=== PATIENT | male | born 1995 | race Caucasian/White ===

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

== ENCOUNTER 2018-07-23 02:16 | Inpatient (IN) | payer MEDICAID ==
--- NOTE | 2018-07-23 02:27 | EDM.PDOC ---
ED HPI GENERAL MEDICAL PROBLEM - General Chief Complaint: Abdominal Pain Stated Complaint: TYPE 1 DIABETIC- ABDOMINAL PAIN, VOMITING Time Seen by Provider: 07/23/18 02:25 - History of Present Illness INITIAL COMMENTS - FREE TEXT/NARRATIVE: HISTORY AND PHYSICAL: History of present illness: The patient is a 22-year-old male who is a type I diabetic with a history of gastroparesis but no abdominal surgical history and has had visits here in the past for his diabetes back in 2017 and presents this morning with complaints of abdominal pain that started last evening and has been persistent associated with nausea but no vomiting. The patient tells me that he has been living in [facility] recently and has a provider there who gives him hydrocodone chronically for chronic abdominal pain and he takes a pain pill before each meal. He says he has Zofran and Reglan for his gastroparesis and he says he has not had his pain medications for 2 weeks. He has not established care here as he has relocated and he is trying to deal with changing his insurance. He says that he does check his blood sugar and has been compliant with his insulin but he did not check his sugar today and did not know was as elevated as it is tonight. His pain is deep and diffuse through the entire upper abdomen and less in the lower abdomen. He has no flank pain and no urinary complaints. He's had no fever chills chest pain or shortness of breath. Review of systems: As per history of present illness and below otherwise all systems reviewed and negative. Past medical history: As per history of present illness and as reviewed below otherwise noncontributory. Surgical history: As per history of present illness and as reviewed below otherwise noncontributory. Social history: No reported history of drug or alcohol abuse. Family history: As per history of present illness and as reviewed below otherwise noncontributory. Physical exam: General: Well-developed thin man who is nontoxic and vital signs are noted by me. The patient is moaning in the room HEENT: Atraumatic, normocephalic, pupils reactive, negative for conjunctival pallor or scleral icterus, mucous membranes tacky , throat clear, neck supple, nontender, trachea midline. Lungs: Clear to auscultation, breath sounds equal bilaterally, chest nontender. Heart: S1S2, regular rhythm and tachycardic rate of my evaluation but no overt murmurs Abdomen: Soft, nondistended, bowel sounds are very hypoactive and there is diffuse tenderness with voluntary guarding on palpation of the entire upper abdomen and only mild tenderness in the lower abdomen. There is no rebound . Negative for masses or hepatosplenomegaly. Negative for costovertebral tenderness. Pelvis: Deferred Genitourinary: Deferred. Rectal: Deferred. Extremities: Atraumatic, negative for cords or calf pain. Neurovascular unremarkable. Full range of motion without defects or deficits Neuro: Awake, alert, oriented. Cranial nerves II through XII unremarkable. Cerebellum unremarkable. Motor and sensory unremarkable throughout. Exam nonfocal. Diagnostics: Accu-Chek. CBC CMP amylase lipase UA UDS serum ketones CT scan of the abdomen and pelvis, hemoglobin A1c urine culture Postvoid bladder scan Therapeutics: IV fluids Zofran Dilaudid Protonix insulin subcutaneous, Benadryl, insulin drip After the Dilaudid the patient got a little bit itchy so Benadryl was given. He tells nursing his never had that before 0353: On reevaluation the patient is much more comfortable and working on his cell phone. I asked him about the UA results and he says that he has had UTIs in the past and he was diagnosed with lung before he left [facility] and was put on antibiotics, the name of which she cannot recall. He says he is only taken them for 2 days but the significant other at bedside is saying that his been on them for one week. 0422: Case was discussed with Dr. Gonzalez who agrees with ICU admission and would like me to start an insulin drip. He is aware of all my findings and that we will do a postvoid bladder scan. Patient is also aware of the testing results including the CT scan revealing bilateral pyelonephritis and the need for admission. Impression: Bilateral pyelonephritis, DKA History of UTI; history of chronic abdominal pain and gastroparesis Definitive disposition and diagnosis as appropriate pending reevaluation and review of above. abdomen Pain Score (Numeric/FACES): 10 - Related Data Allergies Allergy/AdvReac Type Severity Reaction Status Date / Time No Known Allergies Allergy Verified 07/23/18 02:27 Home Meds: Home Meds Insulin Glargine,Hum.Rec.Anlog [Lantus Solostar] 40 unit SQ BEDTIME #3 pen 11/26 [Rx] Insulin Aspart [NovoLOG] 0 units SUBCUT TIDAC 07/23/18 [History] Past Medical History HEENT History: Reports: Other (See Below) Other HEENT History: ear ache Cardiovascular History: Reports: None Respiratory History: Reports: None Gastrointestinal History: Reports: None Musculoskeletal History: Reports: Fracture Other Musculoskeletal History: Elbow long time ago Neurological History: Reports: None Psychiatric History: Reports: None Endocrine/Metabolic History: Reports: Diabetes, Type I Hematologic History: Reports: None Oncologic (Cancer) History: Reports: None - Infectious Disease History Infectious Disease History: Reports: Influenza - Past Surgical History Endocrine Surgical History: Reports: None Social & Family History - Family History Family Medical History: Noncontributory OBGYN: Reports: Endocrine/Metabolic: Reports: Diabetes, Type I, Diabetes, type II - Caffeine Use Caffeine Use: Reports: Soda ED ROS GENERAL - Review of Systems Review Of Systems: ROS reveals no pertinent complaints other than HPI. ED EXAM, GENERAL - Physical Exam Exam: See Below (See dictation) Course - Vital Signs Last Recorded V/S: Last Vital Signs Temp 35.7 C 07/23/18 02:22 Pulse 107 H 07/23/18 03:20 Resp 16 07/23/18 03:20 BP 137/94 H 07/23/18 03:20 Pulse Ox 100 07/23/18 03:20 - Orders/Labs/Meds Orders: Active Orders 24 hr Category Date Time Status Patient Status [ADT] Stat ADT 07/23/18 04:23 Ordered Bladder Scan [RC] ASDIRECTED Care 07/23/18 04:17 Ordered Blood Glucose Check, Bedside [RC] ONETIME Care 07/23/18 02:25 Active CULTURE URINE [RM] Stat Lab 07/23/18 03:15 Received Insulin Regular, Human [NovoLIN R] 100 unit Med 07/23/18 04:30 Ordered Sodium Chloride 0.9% [Normal Saline] 99 ml IV TITRATE Levofloxacin/Dextrose 5%-Water [Levaquin in D5W 500 MG/ Med 07/23/18 03:53 Active 100 ML] 500 mg Premix Bag 1 bag IV ONETIME Sodium Chloride 0.9% [Normal Saline] 1,000 ml Med 07/23/18 04:15 Active IV ASDIRECTED Sodium Chloride 0.9% [Saline Flush] Med 07/23/18 02:33 Active 10 ml FLUSH ASDIRECTED PRN Sodium Chloride 0.9% [Saline Flush] Med 07/23/18 02:33 Active 2.5 ml FLUSH ASDIRECTED PRN Saline Lock Insert [OM.PC] Stat Oth 07/23/18 02:32 Ordered Medication Orders Levofloxacin/Dextrose 500 mg/ (Premix) 100 mls @ 100 mls/hr IV ONETIME ONE Stop: 07/23/18 04:52 Last Admin: 07/23/18 04:14 Dose: 100 mls/hr Sodium Chloride (Normal Saline) 1,000 mls @ 125 mls/hr IV ASDIRECTED AUGUSTINE Last Admin: 07/23/18 04:14 Dose: 125 mls/hr Insulin Human Regular 100 unit (/ Sodium Chloride) 100 mls @ 5 mls/hr IV TITRATE AUGUSTINE; Protocol Sodium Chloride (Saline Flush) 10 ml FLUSH ASDIRECTED PRN PRN Reason: Keep Vein Open Sodium Chloride (Saline Flush) 2.5 ml FLUSH ASDIRECTED PRN PRN Reason: Keep Vein Open Labs: Laboratory Tests 07/23/18 07/23/18 07/23/18 Range/Units 02:25 02:30 02:30 WBC 6.30 (4.0-11.0) K/uL RBC 4.38 L (4.50-5.90) M/uL Hgb 12.0 L (13.0-17.0) g/dL Hct 36.3 L (38.0-50.0) % MCV 82.9 (80.0-98.0) fL MCH 27.4 (27.0-32.0) pg MCHC 33.1 (31.0-37.0) g/dL RDW Std Deviation 38.8 (28.0-62.0) fl RDW Coeff of Erika 13 (11.0-15.0) % Plt Count 341 (150-400) K/uL MPV 10.40 (7.40-12.00) fL Neut % (Auto) 65.3 (48.0-80.0) % Lymph % (Auto) 29.0 (16.0-40.0) % [place] % (Auto) 3.8 (0.0-15.0) % Eos % (Auto) 1.6 (0.0-7.0) % Baso % (Auto) 0.3 (0.0-1.5) % Neut # (Auto) 4.1 (1.4-5.7) K/uL Lymph # (Auto) 1.8 (0.6-2.4) K/uL [place] # (Auto) 0.2 (0.0-0.8) K/uL Eos # (Auto) 0.1 (0.0-0.7) K/uL Baso # (Auto) 0.0 (0.0-0.1) K/uL Sodium 126 L (136-148) mmol/L Potassium 4.8 (3.5-5.1) mmol/L Chloride 90 L (98-107) mmol/L Carbon Dioxide 20.9 L (21.0-32.0) mmol/L BUN 20 H (7.0-18.0) mg/dL Creatinine 0.9 (0.8-1.3) mg/dL Est Cr Clr Drug Dosing 94.44 mL/min Estimated GFR (MDRD) > 60.0 ml/min Glucose 630 H* (74-106) mg/dL POC Glucose > 500 H (60-110) mg/dL Hemoglobin A1c (4.5-6.2) % Calcium 9.5 (8.5-10.1) mg/dL Total Bilirubin 0.4 (0.2-1.0) mg/dL AST 8 L (15-37) IU/L ALT 9 L (14-63) IU/L Alkaline Phosphatase 103 (46-116) U/L Total Protein 8.9 H (6.4-8.2) g/dL Albumin 3.0 L (3.4-5.0) g/dL Globulin 5.9 H (2.6-4.0) g/dL Albumin/Globulin Ratio 0.5 L (0.9-1.6) Amylase 31 (25-115) U/L Lipase 71 L (73-393) U/L Urine Color Urine Appearance Urine pH (5.0-8.0) Ur Specific [place] (1.001-1.035) Urine Protein (NEGATIVE) mg/dL Urine Glucose (UA) (NEGATIVE) mg/dL Urine Ketones (NEGATIVE) mg/dL Urine Occult Blood (NEGATIVE) Urine Nitrite (NEGATIVE) Urine Bilirubin (NEGATIVE) Urine Urobilinogen (<2.0) EU/dL Ur Leukocyte Esterase (NEGATIVE) Urine RBC (0-2/HPF) Urine WBC (0-5/HPF) Ur Epithelial Cells (NONE-FEW) Amorphous Sediment (NEGATIVE) Urine Bacteria (NEGATIVE) Urine Mucus (NONE-MOD) Urine Opiates Screen (NEGATIVE) Ur Oxycodone Screen (NEGATIVE) Urine Methadone Screen (NEGATIVE) Ur Barbiturates Screen (NEGATIVE) Ur Phencyclidine Scrn (NEGATIVE) Ur Amphetamine Screen (NEGATIVE) U Methamphetamines Scrn (NEGATIVE) U Benzodiazepines Scrn (NEGATIVE) U Cocaine Metab Screen (NEGATIVE) U Marijuana (THC) Screen (NEGATIVE) Ketones (NEG) 07/23/18 07/23/18 07/23/18 Range/Units 02:30 02:30 03:15 WBC (4.0-11.0) K/uL RBC (4.50-5.90) M/uL Hgb (13.0-17.0) g/dL Hct (38.0-50.0) % MCV (80.0-98.0) fL MCH (27.0-32.0) pg MCHC (31.0-37.0) g/dL RDW Std Deviation (28.0-62.0) fl RDW Coeff of Erika (11.0-15.0) % Plt Count (150-400) K/uL MPV (7.40-12.00) fL Neut % (Auto) (48.0-80.0) % Lymph % (Auto) (16.0-40.0) % [place] % (Auto) (0.0-15.0) % Eos % (Auto) (0.0-7.0) % Baso % (Auto) (0.0-1.5) % Neut # (Auto) (1.4-5.7) K/uL Lymph # (Auto) (0.6-2.4) K/uL [place] # (Auto) (0.0-0.8) K/uL Eos # (Auto) (0.0-0.7) K/uL Baso # (Auto) (0.0-0.1) K/uL Sodium (136-148) mmol/L Potassium (3.5-5.1) mmol/L Chloride (98-107) mmol/L Carbon Dioxide (21.0-32.0) mmol/L BUN (7.0-18.0) mg/dL Creatinine (0.8-1.3) mg/dL Est Cr Clr Drug Dosing mL/min Estimated GFR (MDRD) ml/min Glucose (74-106) mg/dL POC Glucose (60-110) mg/dL Hemoglobin A1c 12.3 H (4.5-6.2) % Calcium (8.5-10.1) mg/dL Total Bilirubin (0.2-1.0) mg/dL AST (15-37) IU/L ALT (14-63) IU/L Alkaline Phosphatase (46-116) U/L Total Protein (6.4-8.2) g/dL Albumin (3.4-5.0) g/dL Globulin (2.6-4.0) g/dL Albumin/Globulin Ratio (0.9-1.6) Amylase (25-115) U/L Lipase (73-393) U/L Urine Color YELLOW Urine Appearance CLOUDY Urine pH 6.0 (5.0-8.0) Ur Specific [place] 1.010 (1.001-1.035) Urine Protein NEGATIVE (NEGATIVE) mg/dL Urine Glucose (UA) >=1000 (NEGATIVE) mg/dL Urine Ketones 40 H (NEGATIVE) mg/dL Urine Occult Blood TRACE-INTACT H (NEGATIVE) Urine Nitrite NEGATIVE (NEGATIVE) Urine Bilirubin NEGATIVE (NEGATIVE) Urine Urobilinogen 0.2 (<2.0) EU/dL Ur Leukocyte Esterase TRACE H (NEGATIVE) Urine RBC 0-1 (0-2/HPF) Urine WBC 40-50 (0-5/HPF) Ur Epithelial Cells FEW (NONE-FEW) Amorphous Sediment LIGHT (NEGATIVE) Urine Bacteria 2+ H (NEGATIVE) Urine Mucus LIGHT (NONE-MOD) Urine Opiates Screen (NEGATIVE) Ur Oxycodone Screen (NEGATIVE) Urine Methadone Screen (NEGATIVE) Ur Barbiturates Screen (NEGATIVE) Ur Phencyclidine Scrn (NEGATIVE) Ur Amphetamine Screen (NEGATIVE) U Methamphetamines Scrn (NEGATIVE) U Benzodiazepines Scrn (NEGATIVE) U Cocaine Metab Screen (NEGATIVE) U Marijuana (THC) Screen (NEGATIVE) Ketones SMALL H (NEG) 07/23/18 07/23/18 Range/Units 03:15 03:48 WBC (4.0-11.0) K/uL RBC (4.50-5.90) M/uL Hgb (13.0-17.0) g/dL Hct (38.0-50.0) % MCV (80.0-98.0) fL MCH (27.0-32.0) pg MCHC (31.0-37.0) g/dL RDW Std Deviation (28.0-62.0) fl RDW Coeff of Erika (11.0-15.0) % Plt Count (150-400) K/uL MPV (7.40-12.00) fL Neut % (Auto) (48.0-80.0) % Lymph % (Auto) (16.0-40.0) % [place] % (Auto) (0.0-15.0) % Eos % (Auto) (0.0-7.0) % Baso % (Auto) (0.0-1.5) % Neut # (Auto) (1.4-5.7) K/uL Lymph # (Auto) (0.6-2.4) K/uL [place] # (Auto) (0.0-0.8) K/uL Eos # (Auto) (0.0-0.7) K/uL Baso # (Auto) (0.0-0.1) K/uL Sodium (136-148) mmol/L Potassium (3.5-5.1) mmol/L Chloride (98-107) mmol/L Carbon Dioxide (21.0-32.0) mmol/L BUN (7.0-18.0) mg/dL Creatinine (0.8-1.3) mg/dL Est Cr Clr Drug Dosing mL/min Estimated GFR (MDRD) ml/min Glucose (74-106) mg/dL POC Glucose > 500 H (60-110) mg/dL Hemoglobin A1c (4.5-6.2) % Calcium (8.5-10.1) mg/dL Total Bilirubin (0.2-1.0) mg/dL AST (15-37) IU/L ALT (14-63) IU/L Alkaline Phosphatase (46-116) U/L Total Protein (6.4-8.2) g/dL Albumin (3.4-5.0) g/dL Globulin (2.6-4.0) g/dL Albumin/Globulin Ratio (0.9-1.6) Amylase (25-115) U/L Lipase (73-393) U/L Urine Color Urine Appearance Urine pH (5.0-8.0) Ur Specific [place] (1.001-1.035) Urine Protein (NEGATIVE) mg/dL Urine Glucose (UA) (NEGATIVE) mg/dL Urine Ketones (NEGATIVE) mg/dL Urine Occult Blood (NEGATIVE) Urine Nitrite (NEGATIVE) Urine Bilirubin (NEGATIVE) Urine Urobilinogen (<2.0) EU/dL Ur Leukocyte Esterase (NEGATIVE) Urine RBC (0-2/HPF) Urine WBC (0-5/HPF) Ur Epithelial Cells (NONE-FEW) Amorphous Sediment (NEGATIVE) Urine Bacteria (NEGATIVE) Urine Mucus (NONE-MOD) Urine Opiates Screen NEGATIVE (NEGATIVE) Ur Oxycodone Screen NEGATIVE (NEGATIVE) Urine Methadone Screen NEGATIVE (NEGATIVE) Ur Barbiturates Screen NEGATIVE (NEGATIVE) Ur Phencyclidine Scrn NEGATIVE (NEGATIVE) Ur Amphetamine Screen NEGATIVE (NEGATIVE) U Methamphetamines Scrn NEGATIVE (NEGATIVE) U Benzodiazepines Scrn NEGATIVE (NEGATIVE) U Cocaine Metab Screen NEGATIVE (NEGATIVE) U Marijuana (THC) Screen NEGATIVE (NEGATIVE) Ketones (NEG) Meds: Medications Generic Name Dose Route Start Last Admin Trade Name Freq PRN Reason Stop Dose Admin Levofloxacin/Dextrose 500 mg/ 100 mls @ 100 mls/hr 07/23/18 03:53 07/23/18 04 :14 Premix IV 07/23/18 04:52 100 mls/hr ONETIME ONE Administration Sodium Chloride 1,000 mls @ 125 mls/hr 07/23/18 04:15 07/23/18 04:14 Normal Saline IV 125 mls/hr ASDIRECTED AUGUSTINE Administration Insulin Human Regular 100 unit 100 mls @ 5 mls/hr 07/23/18 04:30 / Sodium Chloride IV TITRATE AUGUSTINE Protocol 5 UNIT/HR Sodium Chloride 10 ml 07/23/18 02:33 Saline Flush FLUSH ASDIRECTED PRN Keep Vein Open Sodium Chloride 2.5 ml 07/23/18 02:33 Saline Flush FLUSH ASDIRECTED PRN Keep Vein Open Discontinued Medications Generic Name Dose Route Start Last Admin Trade Name Freq PRN Reason Stop Dose Admin Diphenhydramine HCl 25 mg 07/23/18 02:59 07/23/18 03:03 Benadryl IVPUSH 07/23/18 03:00 25 mg ONETIME ONE Administration Hydromorphone HCl 1 mg 07/23/18 02:32 07/23/18 02:41 Dilaudid IVPUSH 07/23/18 02:33 1 mg ONETIME ONE Administration Sodium Chloride 1,000 mls @ 999 mls/hr 07/23/18 02:32 07/23/18 02:40 Normal Saline IV 07/23/18 03:32 999 mls/hr STAT ONE Administration Sodium Chloride Confirm 07/23/18 02:49 07/23/18 02:57 Normal Saline Administered 07/23/18 02:50 20 mls/hr Dose Administration 20 mls @ as directed .ROUTE .STK-MED ONE Insulin Human Regular 15 unit 07/23/18 02:34 07/23/18 02:43 Novolin R SUBCUT 07/23/18 02:35 15 unit ONETIME ONE Administration Protocol Insulin Human Regular 10 unit 07/23/18 04:04 07/23/18 04:16 Novolin R SUBCUT 07/23/18 04:05 10 unit ONETIME ONE Administration Protocol Iopamidol 100 ml 07/23/18 03:33 07/23/18 03:33 Isovue Multipack-370 (76%) IVPUSH 07/23/18 03:34 100 ml ONETIME STA Administration Ondansetron HCl 4 mg 07/23/18 02:32 07/23/18 02:40 Zofran IVPUSH 07/23/18 02:33 4 mg ONETIME ONE Administration Pantoprazole Sodium 80 mg 07/23/18 02:37 07/23/18 02:50 Protonix Iv IVPUSH 07/23/18 02:38 80 mg .BOLUS ONE Administration Departure - Departure Time of Disposition: 04:26 Disposition: Admitted As Inpatient 68 Condition: Fair Clinical Impression: Pyelonephritis Abdominal pain Qualifiers: Abdominal location: upper abdomen, unspecified Qualified Code(s): R10.10 - Upper abdominal pain, unspecified DKA (diabetic ketoacidoses) Qualifiers: Diabetes mellitus type: type 1 Diabetes mellitus complication detail: without coma Qualified Code(s): E10.10 - Type 1 diabetes mellitus with ketoacidosis without coma - Discharge Information Referrals: PCP,None [Primary Care Provider] - Forms: ED Department Discharge - My Orders Last 24 Hours: My Active Orders 07/23/18 02:25 Blood Glucose Check, Bedside [RC] ONETIME 07/23/18 02:32 Saline Lock Insert [OM.PC] Stat 07/23/18 02:33 Sodium Chloride 0.9% [Saline Flush] 10 ml FLUSH ASDIRECTED PRN Sodium Chloride 0.9% [Saline Flush] 2.5 ml FLUSH ASDIRECTED PRN 07/23/18 03:15 CULTURE URINE [RM] Stat 07/23/18 03:53 Levofloxacin/Dextrose 5%-Water [Levaquin in D5W 500 MG/100 ML] 500 mg Premix Bag 1 bag IV ONETIME 07/23/18 04:15 Sodium Chloride 0.9% [Normal Saline] 1,000 ml IV ASDIRECTED 07/23/18 04:17 Bladder Scan [RC] ASDIRECTED 07/23/18 04:23 Patient Status [ADT] Stat 07/23/18 04:30 Insulin Regular, Human [NovoLIN R] 100 unit Sodium Chloride 0.9% [Normal Saline] 99 ml IV TITRATE - Assessment/Plan Last 24 Hours: My Active Orders 07/23/18 02:25 Blood Glucose Check, Bedside [RC] ONETIME 07/23/18 02:32 Saline Lock Insert [OM.PC] Stat 07/23/18 02:33 Sodium Chloride 0.9% [Saline Flush] 10 ml FLUSH ASDIRECTED PRN Sodium Chloride 0.9% [Saline Flush] 2.5 ml FLUSH ASDIRECTED PRN 07/23/18 03:15 CULTURE URINE [RM] Stat 07/23/18 03:53 Levofloxacin/Dextrose 5%-Water [Levaquin in D5W 500 MG/100 ML] 500 mg Premix Bag 1 bag IV ONETIME 07/23/18 04:15 Sodium Chloride 0.9% [Normal Saline] 1,000 ml IV ASDIRECTED 07/23/18 04:17 Bladder Scan [RC] ASDIRECTED 07/23/18 04:23 Patient Status [ADT] Stat 07/23/18 04:30 Insulin Regular, Human [NovoLIN R] 100 unit Sodium Chloride 0.9% [Normal Saline] 99 ml IV TITRATE
[2018-07-23] MEDS ORDERED: Sodium Chloride 0.9% 1,000 ML IV ONE (02:32)
[2018-07-23] MEDS ORDERED: HYDROmorphone 1 MG/ML Syringe IVPUSH ONE (02:32)
[2018-07-23] MEDS ORDERED: Ondansetron 4 MG/2 ML SDV IVPUSH ONE (02:32)
[2018-07-23] MEDS ORDERED: Sodium Chloride 0.9% 2.5 ML Syringe FLUSH PRN (02:33)
[2018-07-23] MEDS ORDERED: Sodium Chloride 0.9% 10 ML Syringe FLUSH PRN (02:33)
[2018-07-23] MEDS ORDERED: Insulin Regular, Human 100 Units/ML 10 ML Vial SUBCUT ONE ×2 (02:34→04:04)
[2018-07-23] MEDS ORDERED: Pantoprazole 40 MG Vial IVPUSH ONE (02:37)
[2018-07-23] MEDS ORDERED: Sodium Chloride 0.9% 20 ML ONE (02:49)
[2018-07-23 02:58] LABS: CHLORIDE,CL 90 mmol/L (98-107); SODIUM,NA 126 mmol/L (136-148)
[2018-07-23] MEDS ORDERED: diphenhydrAMINE 50 MG/ML SDV IVPUSH ONE (02:59)
[2018-07-23 03:21] LABS: HEMOGLOBIN A1C 12.3 % (4.5-6.2)
[2018-07-23] MEDS ORDERED: Iopamidol 755 MG/ML 500 ML Multipack Bottle IVPUSH STA (03:33)
[2018-07-23] MEDS ORDERED: Levofloxacin/Dextrose 5%-Water 500 MG in Premix Bag 1 BAG IV ONE (03:53)
--- NOTE | 2018-07-23 04:13 | CT ---
INDICATION: Abdominal pain. Diabetes. Hyperglycemia. TECHNIQUE: CT abdomen and pelvis acquired with IV contrast. 100 mL of Isovue 370 administered COMPARISON: None available FINDINGS: Lower chest: Unremarkable. Liver: Unremarkable. Spleen: Unremarkable. Pancreas: Unremarkable. Gallbladder and bile ducts: Possible gallbladder sludge. Slight central intrahepatic biliary prominence without significant extrahepatic biliary dilatation. Adrenal glands: Unremarkable. Kidneys: Mild bilateral hydronephrosis. A heterogeneous right nephrogram demonstrating multiple ill-defined foci of decreased corticomedullary attenuation consistent with multi focal pyelonephritis. An ill-defined area of decreased attenuation in the left renal upper pole suggestive of focal pyelonephritis. GI tract: Unremarkable. No evidence of appendicitis. Vascular structures: Unremarkable. Lymph nodes: Unremarkable. Miscellaneous: No significant free fluid or free air. Pelvic Organs: A distended urinary bladder demonstrating wall thickening. A mildly prominent prostate for age. Bones: Unremarkable for age. IMPRESSION: Multifocal pyelonephritis, right greater than left. Bladder wall thickening compatible with cystitis. Dictated by Rafa Irvin MD @ 07/23/2018 4:11:33 AM Please note that all CT scans at this facility use dose modulation, iterative reconstruction, and/or weight-based dosing when appropriate to reduce radiation dose to as low as reasonably achievable. Dictated by: Rafa Irvin MD @ 07/23/2018 04:11:36 (Electronically Signed)
[2018-07-23] MEDS ORDERED: Sodium Chloride 0.9% 1,000 ML IV SCH (04:15)
[2018-07-23] MEDS ORDERED: Morphine 2 MG/ML Syringe IVPUSH ONE (04:48)
[2018-07-23] MEDS ORDERED: Meropenem 2 GM in Sodium Chloride 0.9% 100 ML IV SCH (06:00)
--- NOTE | 2018-07-23 06:09 | PCM.HP ---
H&P History of Present Illness - General Date of Service: 07/23/18 Admit Problem/Dx: Admission Diagnosis/Problem Admission Diagnosis/Problem Ketoacidosis Source of Information: Patient History Limitations: Reports: No Limitations - History of Present Illness Initial Comments - Free Text/Narative: The patient is a 22-year-old gentleman who presented to the emergency department with a complaint of abdominal pain, nausea and vomiting. The patient is a type I diabetic and self admits to diabetic gastroparesis as well as peripheral neuropathy. The patient is somewhat vague in his answers and admits requested that he should be testing his blood sugars at least 6 times a day but has only checked it once or twice the past couple days. The patient also had had been taking antibiotics for urinary tract infection although this has not been noted on his medication list. Further, the patient says that he has been taking medication for his gastroparesis as well as his depression. The patient says that he moved back here to be with family to help better control his diabetes and his depression. The patient also has been having severe diffuse abdominal pain in his upper abdominal area that does not seem to radiate. Patient has described this as sharp and cramping. The patient also denied nausea and vomiting although this was one of his chief complaints. CT scan of his abdomen also revealed evidence of pyelonephritis as well as bladder wall thickening consistent with urinary tract infection. Patient has denied fever or chills. The patient has had no other specific aggravating or relieving factors. Patient is considered to be a poor historian. Onset of Symptoms: Reports: Gradual Duration of Symptoms: Reports: Hour(s):, Getting Worse Location: Reports: Abdomen Quality: Reports: Ache, Stabbing, Throbbing Severity: Moderate Improves with: Reports: None Worsens with: Reports: Eating Context: Reports: Sick Contact Associated Symptoms: Reports: Loss of Appetite. Denies: Fever/Chills abdomen Pain Score (Numeric/FACES): 9 - Related Data Allergies/Adverse Reactions: Allergies Allergy/AdvReac Type Severity Reaction Status Date / Time No Known Allergies Allergy Verified 07/23/18 02:27 Home Medications: Home Meds Insulin Glargine,Hum.Rec.Anlog [Lantus Solostar] 40 unit SQ BEDTIME #3 pen 11/26 [Rx] Insulin Aspart [NovoLOG] 0 units SUBCUT TIDAC 07/23/18 [History] Past Medical History - Past Health History Medical/Surgical History: Denies Medical/Surgical History HEENT History: Reports: Other (See Below) Other HEENT History: ear ache Cardiovascular History: Reports: None Respiratory History: Reports: None Gastrointestinal History: Reports: Irritable Bowel Syndrome Other Gastrointestinal History: gastropharesis Musculoskeletal History: Reports: Fracture Other Musculoskeletal History: Elbow long time ago Neurological History: Reports: None Psychiatric History: Reports: Depression Endocrine/Metabolic History: Reports: Diabetes, Type I Hematologic History: Reports: None Oncologic (Cancer) History: Reports: None - Infectious Disease History Infectious Disease History: Reports: Influenza - Past Surgical History Endocrine Surgical History: Reports: None Social & Family History - Family History Family Medical History: Noncontributory OBGYN: Reports: Endocrine/Metabolic: Reports: Diabetes, Type I, Diabetes, type II - Tobacco Use Smoking Status *Q: Current Every Day Smoker Years of Tobacco use: 1 Packs/Tins Daily: 0.4 - Caffeine Use Caffeine Use: Reports: Coffee, Energy Drinks - Recreational Drug Use Recreational Drug Use: No - Living Situation & Occupation Living situation: Reports: Single, with Family Occupation: Unemployed H&P Review of Systems - Review of Systems: Review Of Systems: See Below General: Reports: Weakness HEENT: Reports: No Symptoms Pulmonary: Reports: No Symptoms Cardiovascular: Reports: No Symptoms Gastrointestinal: Reports: Abdominal Pain Genitourinary: Reports: No Symptoms Musculoskeletal: Reports: No Symptoms Skin: Reports: No Symptoms Psychiatric: Reports: No Symptoms Neurological: Reports: No Symptoms Hematologic/Lymphatic: Reports: No Symptoms Immunologic: Reports: No Symptoms Exam - Exam Exam: See Below - Vital Signs Vital Signs: Last Vital Signs Temp 35.7 C 07/23/18 02:22 Pulse 108 H 07/23/18 04:40 Resp 18 07/23/18 04:40 BP 118/76 07/23/18 04:40 Pulse Ox 100 07/23/18 04:40 Weight: 50.859 kg - Exam Quality Assessment: No: Supplemental Oxygen General: Alert, Oriented, Cooperative, Moderate Distress, Other (thin) HEENT: Conjunctiva Clear, EACs Clear, EOMI, Nares Patent, Pupils Equal, PERRLA. No: Mucosa Moist & [place] (Dry) Neck: Supple, Trachea Midline Lungs: Clear to Auscultation, Normal Respiratory Effort Cardiovascular: Regular Rhythm, Tachycardia (119 on monitor) GI/Abdominal Exam: Normal Bowel Sounds, Soft, Distended (lower abdominal area), Tender. No: Guarding, Rigid, Rebound Back Exam: Normal Inspection, Full Range of Motion Extremities: Normal Inspection, Normal Range of Motion, No Pedal Edema Skin: Warm, Dry, Intact Neurological: Cranial Nerves Intact, Reflexes Equal Bilateral Neuro Extensive - Mental Status: Alert, Oriented x3 Psychiatric: Alert, Normal Affect, Depressed - Patient Data Lab Results Last 24 hrs: Laboratory Results - last 24 hr 07/23/18 07/23/18 07/23/18 Range/Units 02:25 02:30 02:30 WBC 6.30 (4.0-11.0) K/uL RBC 4.38 L (4.50-5.90) M/uL Hgb 12.0 L (13.0-17.0) g/dL Hct 36.3 L (38.0-50.0) % MCV 82.9 (80.0-98.0) fL MCH 27.4 (27.0-32.0) pg MCHC 33.1 (31.0-37.0) g/dL RDW Std Deviation 38.8 (28.0-62.0) fl RDW Coeff of Erika 13 (11.0-15.0) % Plt Count 341 (150-400) K/uL MPV 10.40 (7.40-12.00) fL Neut % (Auto) 65.3 (48.0-80.0) % Lymph % (Auto) 29.0 (16.0-40.0) % [place] % (Auto) 3.8 (0.0-15.0) % Eos % (Auto) 1.6 (0.0-7.0) % Baso % (Auto) 0.3 (0.0-1.5) % Neut # (Auto) 4.1 (1.4-5.7) K/uL Lymph # (Auto) 1.8 (0.6-2.4) K/uL [place] # (Auto) 0.2 (0.0-0.8) K/uL Eos # (Auto) 0.1 (0.0-0.7) K/uL Baso # (Auto) 0.0 (0.0-0.1) K/uL Sodium 126 L (136-148) mmol/L Potassium 4.8 (3.5-5.1) mmol/L Chloride 90 L (98-107) mmol/L Carbon Dioxide 20.9 L (21.0-32.0) mmol/L BUN 20 H (7.0-18.0) mg/dL Creatinine 0.9 (0.8-1.3) mg/dL Est Cr Clr Drug Dosing 94.44 mL/min Estimated GFR (MDRD) > 60.0 ml/min Glucose 630 H* (74-106) mg/dL POC Glucose > 500 H (60-110) mg/dL Hemoglobin A1c (4.5-6.2) % Calcium 9.5 (8.5-10.1) mg/dL Total Bilirubin 0.4 (0.2-1.0) mg/dL AST 8 L (15-37) IU/L ALT 9 L (14-63) IU/L Alkaline Phosphatase 103 (46-116) U/L Total Protein 8.9 H (6.4-8.2) g/dL Albumin 3.0 L (3.4-5.0) g/dL Globulin 5.9 H (2.6-4.0) g/dL Albumin/Globulin Ratio 0.5 L (0.9-1.6) Amylase 31 (25-115) U/L Lipase 71 L (73-393) U/L Urine Color Urine Appearance Urine pH (5.0-8.0) Ur Specific [place] (1.001-1.035) Urine Protein (NEGATIVE) mg/dL Urine Glucose (UA) (NEGATIVE) mg/dL Urine Ketones (NEGATIVE) mg/dL Urine Occult Blood (NEGATIVE) Urine Nitrite (NEGATIVE) Urine Bilirubin (NEGATIVE) Urine Urobilinogen (<2.0) EU/dL Ur Leukocyte Esterase (NEGATIVE) Urine RBC (0-2/HPF) Urine WBC (0-5/HPF) Ur Epithelial Cells (NONE-FEW) Amorphous Sediment (NEGATIVE) Urine Bacteria (NEGATIVE) Urine Mucus (NONE-MOD) Urine Opiates Screen (NEGATIVE) Ur Oxycodone Screen (NEGATIVE) Urine Methadone Screen (NEGATIVE) Ur Barbiturates Screen (NEGATIVE) Ur Phencyclidine Scrn (NEGATIVE) Ur Amphetamine Screen (NEGATIVE) U Methamphetamines Scrn (NEGATIVE) U Benzodiazepines Scrn (NEGATIVE) U Cocaine Metab Screen (NEGATIVE) U Marijuana (THC) Screen (NEGATIVE) Ketones (NEG) 07/23/18 07/23/18 07/23/18 Range/Units 02:30 02:30 03:15 WBC (4.0-11.0) K/uL RBC (4.50-5.90) M/uL Hgb (13.0-17.0) g/dL Hct (38.0-50.0) % MCV (80.0-98.0) fL MCH (27.0-32.0) pg MCHC (31.0-37.0) g/dL RDW Std Deviation (28.0-62.0) fl RDW Coeff of Erika (11.0-15.0) % Plt Count (150-400) K/uL MPV (7.40-12.00) fL Neut % (Auto) (48.0-80.0) % Lymph % (Auto) (16.0-40.0) % [place] % (Auto) (0.0-15.0) % Eos % (Auto) (0.0-7.0) % Baso % (Auto) (0.0-1.5) % Neut # (Auto) (1.4-5.7) K/uL Lymph # (Auto) (0.6-2.4) K/uL [place] # (Auto) (0.0-0.8) K/uL Eos # (Auto) (0.0-0.7) K/uL Baso # (Auto) (0.0-0.1) K/uL Sodium (136-148) mmol/L Potassium (3.5-5.1) mmol/L Chloride (98-107) mmol/L Carbon Dioxide (21.0-32.0) mmol/L BUN (7.0-18.0) mg/dL Creatinine (0.8-1.3) mg/dL Est Cr Clr Drug Dosing mL/min Estimated GFR (MDRD) ml/min Glucose (74-106) mg/dL POC Glucose (60-110) mg/dL Hemoglobin A1c 12.3 H (4.5-6.2) % Calcium (8.5-10.1) mg/dL Total Bilirubin (0.2-1.0) mg/dL AST (15-37) IU/L ALT (14-63) IU/L Alkaline Phosphatase (46-116) U/L Total Protein (6.4-8.2) g/dL Albumin (3.4-5.0) g/dL Globulin (2.6-4.0) g/dL Albumin/Globulin Ratio (0.9-1.6) Amylase (25-115) U/L Lipase (73-393) U/L Urine Color YELLOW Urine Appearance CLOUDY Urine pH 6.0 (5.0-8.0) Ur Specific [place] 1.010 (1.001-1.035) Urine Protein NEGATIVE (NEGATIVE) mg/dL Urine Glucose (UA) >=1000 (NEGATIVE) mg/dL Urine Ketones 40 H (NEGATIVE) mg/dL Urine Occult Blood TRACE-INTACT H (NEGATIVE) Urine Nitrite NEGATIVE (NEGATIVE) Urine Bilirubin NEGATIVE (NEGATIVE) Urine Urobilinogen 0.2 (<2.0) EU/dL Ur Leukocyte Esterase TRACE H (NEGATIVE) Urine RBC 0-1 (0-2/HPF) Urine WBC 40-50 (0-5/HPF) Ur Epithelial Cells FEW (NONE-FEW) Amorphous Sediment LIGHT (NEGATIVE) Urine Bacteria 2+ H (NEGATIVE) Urine Mucus LIGHT (NONE-MOD) Urine Opiates Screen (NEGATIVE) Ur Oxycodone Screen (NEGATIVE) Urine Methadone Screen (NEGATIVE) Ur Barbiturates Screen (NEGATIVE) Ur Phencyclidine Scrn (NEGATIVE) Ur Amphetamine Screen (NEGATIVE) U Methamphetamines Scrn (NEGATIVE) U Benzodiazepines Scrn (NEGATIVE) U Cocaine Metab Screen (NEGATIVE) U Marijuana (THC) Screen (NEGATIVE) Ketones SMALL H (NEG) 07/23/18 07/23/18 07/23/18 Range/Units 03:15 03:48 05:08 WBC (4.0-11.0) K/uL RBC (4.50-5.90) M/uL Hgb (13.0-17.0) g/dL Hct (38.0-50.0) % MCV (80.0-98.0) fL MCH (27.0-32.0) pg MCHC (31.0-37.0) g/dL RDW Std Deviation (28.0-62.0) fl RDW Coeff of Erika (11.0-15.0) % Plt Count (150-400) K/uL MPV (7.40-12.00) fL Neut % (Auto) (48.0-80.0) % Lymph % (Auto) (16.0-40.0) % [place] % (Auto) (0.0-15.0) % Eos % (Auto) (0.0-7.0) % Baso % (Auto) (0.0-1.5) % Neut # (Auto) (1.4-5.7) K/uL Lymph # (Auto) (0.6-2.4) K/uL [place] # (Auto) (0.0-0.8) K/uL Eos # (Auto) (0.0-0.7) K/uL Baso # (Auto) (0.0-0.1) K/uL Sodium (136-148) mmol/L Potassium (3.5-5.1) mmol/L Chloride (98-107) mmol/L Carbon Dioxide (21.0-32.0) mmol/L BUN (7.0-18.0) mg/dL Creatinine (0.8-1.3) mg/dL Est Cr Clr Drug Dosing mL/min Estimated GFR (MDRD) ml/min Glucose (74-106) mg/dL POC Glucose > 500 H 398 H (60-110) mg/dL Hemoglobin A1c (4.5-6.2) % Calcium (8.5-10.1) mg/dL Total Bilirubin (0.2-1.0) mg/dL AST (15-37) IU/L ALT (14-63) IU/L Alkaline Phosphatase (46-116) U/L Total Protein (6.4-8.2) g/dL Albumin (3.4-5.0) g/dL Globulin (2.6-4.0) g/dL Albumin/Globulin Ratio (0.9-1.6) Amylase (25-115) U/L Lipase (73-393) U/L Urine Color Urine Appearance Urine pH (5.0-8.0) Ur Specific [place] (1.001-1.035) Urine Protein (NEGATIVE) mg/dL Urine Glucose (UA) (NEGATIVE) mg/dL Urine Ketones (NEGATIVE) mg/dL Urine Occult Blood (NEGATIVE) Urine Nitrite (NEGATIVE) Urine Bilirubin (NEGATIVE) Urine Urobilinogen (<2.0) EU/dL Ur Leukocyte Esterase (NEGATIVE) Urine RBC (0-2/HPF) Urine WBC (0-5/HPF) Ur Epithelial Cells (NONE-FEW) Amorphous Sediment (NEGATIVE) Urine Bacteria (NEGATIVE) Urine Mucus (NONE-MOD) Urine Opiates Screen NEGATIVE (NEGATIVE) Ur Oxycodone Screen NEGATIVE (NEGATIVE) Urine Methadone Screen NEGATIVE (NEGATIVE) Ur Barbiturates Screen NEGATIVE (NEGATIVE) Ur Phencyclidine Scrn NEGATIVE (NEGATIVE) Ur Amphetamine Screen NEGATIVE (NEGATIVE) U Methamphetamines Scrn NEGATIVE (NEGATIVE) U Benzodiazepines Scrn NEGATIVE (NEGATIVE) U Cocaine Metab Screen NEGATIVE (NEGATIVE) U Marijuana (THC) Screen NEGATIVE (NEGATIVE) Ketones (NEG) 07/23/18 Range/Units 06:00 WBC (4.0-11.0) K/uL RBC (4.50-5.90) M/uL Hgb (13.0-17.0) g/dL Hct (38.0-50.0) % MCV (80.0-98.0) fL MCH (27.0-32.0) pg MCHC (31.0-37.0) g/dL RDW Std Deviation (28.0-62.0) fl RDW Coeff of Erika (11.0-15.0) % Plt Count (150-400) K/uL MPV (7.40-12.00) fL Neut % (Auto) (48.0-80.0) % Lymph % (Auto) (16.0-40.0) % [place] % (Auto) (0.0-15.0) % Eos % (Auto) (0.0-7.0) % Baso % (Auto) (0.0-1.5) % Neut # (Auto) (1.4-5.7) K/uL Lymph # (Auto) (0.6-2.4) K/uL [place] # (Auto) (0.0-0.8) K/uL Eos # (Auto) (0.0-0.7) K/uL Baso # (Auto) (0.0-0.1) K/uL Sodium (136-148) mmol/L Potassium (3.5-5.1) mmol/L Chloride (98-107) mmol/L Carbon Dioxide (21.0-32.0) mmol/L BUN (7.0-18.0) mg/dL Creatinine (0.8-1.3) mg/dL Est Cr Clr Drug Dosing mL/min Estimated GFR (MDRD) ml/min Glucose (74-106) mg/dL POC Glucose 329 H (60-110) mg/dL Hemoglobin A1c (4.5-6.2) % Calcium (8.5-10.1) mg/dL Total Bilirubin (0.2-1.0) mg/dL AST (15-37) IU/L ALT (14-63) IU/L Alkaline Phosphatase (46-116) U/L Total Protein (6.4-8.2) g/dL Albumin (3.4-5.0) g/dL Globulin (2.6-4.0) g/dL Albumin/Globulin Ratio (0.9-1.6) Amylase (25-115) U/L Lipase (73-393) U/L Urine Color Urine Appearance Urine pH (5.0-8.0) Ur Specific [place] (1.001-1.035) Urine Protein (NEGATIVE) mg/dL Urine Glucose (UA) (NEGATIVE) mg/dL Urine Ketones (NEGATIVE) mg/dL Urine Occult Blood (NEGATIVE) Urine Nitrite (NEGATIVE) Urine Bilirubin (NEGATIVE) Urine Urobilinogen (<2.0) EU/dL Ur Leukocyte Esterase (NEGATIVE) Urine RBC (0-2/HPF) Urine WBC (0-5/HPF) Ur Epithelial Cells (NONE-FEW) Amorphous Sediment (NEGATIVE) Urine Bacteria (NEGATIVE) Urine Mucus (NONE-MOD) Urine Opiates Screen (NEGATIVE) Ur Oxycodone Screen (NEGATIVE) Urine Methadone Screen (NEGATIVE) Ur Barbiturates Screen (NEGATIVE) Ur Phencyclidine Scrn (NEGATIVE) Ur Amphetamine Screen (NEGATIVE) U Methamphetamines Scrn (NEGATIVE) U Benzodiazepines Scrn (NEGATIVE) U Cocaine Metab Screen (NEGATIVE) U Marijuana (THC) Screen (NEGATIVE) Ketones (NEG) Result Diagrams: 07/23/18 02:30 07/23/18 02:30 - Problem List (1) DKA (diabetic ketoacidoses) SNOMED Code(s): 432454803, 521203874 ICD Code: E13.10 - OTH DIABETES MELLITUS WITH KETOACIDOSIS WITHOUT COMA Status: Acute Priority: High Current Visit: Yes Qualifiers: Diabetes mellitus type: type 1 Diabetes mellitus complication detail: without coma Qualified Code(s): E10.10 - Type 1 diabetes mellitus with ketoacidosis without coma (2) Pyelonephritis SNOMED Code(s): 87534286 ICD Code: N12 - TUBULO-INTERSTITIAL NEPHRITIS, NOT SPCF ACUTE OR CHRONIC Status: Acute Priority: High Current Visit: Yes (3) Diabetes type 1, uncontrolled SNOMED Code(s): 09929493, 135101417 ICD Code: E10.65 - TYPE 1 DIABETES MELLITUS WITH HYPERGLYCEMIA Status: Chronic Priority: Medium Current Visit: Yes Qualifiers: Glycemic state: with hyperglycemia Qualified Code(s): E10.65 - Type 1 diabetes mellitus with hyperglycemia (4) Neurogenic dysfunction of the urinary bladder SNOMED Code(s): 615726572 ICD Code: N31.9 - NEUROMUSCULAR DYSFUNCTION OF BLADDER, UNSPECIFIED Status : Suspected Priority: High Current Visit: Yes (5) 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 SNOMED Code(s): 658741803 ICD Code: E10.40 - TYPE 1 DIABETES MELLITUS WITH DIABETIC NEUROPATHY, UNSP Status: Chronic Priority: Medium Current Visit: Yes (6) Diabetic gastroparesis SNOMED Code(s): 463075152 ICD Code: E11.43 - TYPE 2 DIABETES W DIABETIC AUTONOMIC (POLY)NEUROPATHY; K31.84 - GASTROPARESIS Status: Chronic Priority: Medium Current Visit: Yes (7) Depression SNOMED Code(s): 41514016 ICD Code: F32.9 - MAJOR DEPRESSIVE DISORDER, SINGLE EPISODE, UNSPECIFIED Status: Chronic Current Visit: Yes Qualifiers: Depression Type: major depressive disorder Major depression recurrence: unspecified whether recurrent Active/Remission status: in remission of unspecified degree Qualified Code(s): F32.5 - Major depressive disorder, single episode, in full remission (8) Abdominal pain SNOMED Code(s): 83752122 ICD Code: R10.9 - UNSPECIFIED ABDOMINAL PAIN Status: Chronic Priority: High Current Visit: Yes Qualifiers: Abdominal location: upper abdomen, unspecified Qualified Code(s): R10.10 - Upper abdominal pain, unspecified Problem List Initiated/Reviewed/Updated: Yes Orders Last 24hrs: Active Orders 24 hr Category Date Time Status Patient Status [ADT] Stat ADT 07/23/18 04:23 Active Bladder Scan [RC] ASDIRECTED Care 07/23/18 04:17 Active Blood Glucose Check, Bedside [RC] ONETIME Care 07/23/18 02:25 Active CULTURE URINE [RM] Stat Lab 07/23/18 03:15 Received Insulin Regular, Human [NovoLIN R] 100 unit Med 07/23/18 04:30 Active Sodium Chloride 0.9% [Normal Saline] 99 ml IV TITRATE Sodium Chloride 0.9% [Normal Saline] 1,000 ml Med 07/23/18 04:15 Active IV ASDIRECTED Sodium Chloride 0.9% [Saline Flush] Med 07/23/18 02:33 Active 10 ml FLUSH ASDIRECTED PRN Sodium Chloride 0.9% [Saline Flush] Med 07/23/18 02:33 Active 2.5 ml FLUSH ASDIRECTED PRN Saline Lock Insert [OM.PC] Stat Oth 07/23/18 02:32 Ordered Medication Orders Sodium Chloride (Normal Saline) 1,000 mls @ 125 mls/hr IV ASDIRECTED AUGUSTINE Last Admin: 07/23/18 04:14 Dose: 125 mls/hr Insulin Human Regular 100 unit (/ Sodium Chloride) 100 mls @ 5 mls/hr IV TITRATE AUGUSTINE; Protocol Last Admin: 07/23/18 04:47 Dose: 5 unit/hr, 5 mls/hr Sodium Chloride (Saline Flush) 10 ml FLUSH ASDIRECTED PRN PRN Reason: Keep Vein Open Sodium Chloride (Saline Flush) 2.5 ml FLUSH ASDIRECTED PRN PRN Reason: Keep Vein Open Assessment/Plan Comment:: The patient is a complicated 22-year-old gentleman who will be admitted to the intensive care unit for intensive hydration, insulin drip and blood sugar checks every hour. The patient had essentially mild diabetic ketoacidosis that my concern would be that with his pyelonephritis this would be exacerbated very quickly. The patient had been started on Levaquin in the emergency department and I have discontinued this and place the patient on meropenem 2 g IV every 8 hours for his pyelonephritis. The patient does have a history of gastroparesis and I have ordered a postvoid bladder scan as I am concerned that he has neurogenic bladder as well. The patient did have a postvoid residual of greater than 600 mL per hour and had admitted to the nurse that he does not have urges to use the bathroom for urination. I've ordered a Cle[place] catheter. Cultures are currently pending. His antibiotics will be changed as cultures and sensitivity indicates. I placed the patient on Lovenox 30 mg subcutaneous daily for DVT prophylaxis. The patient has been encouraged to ambulate. The patient will be kept nothing by mouth for now and his diet will be advanced when his pain is controlled and nausea is resolved. We'll continue to monitor with eICU.
[2018-07-23] MEDS: Sodium Chloride 0.9% 1,000 ML IV SCH ×4 (06:15→18:54)
[2018-07-23] MEDS ORDERED: Lidocaine 2% Jelly 30 ML Tube ONE (06:52)
[2018-07-23 06:54] LABS: CHLORIDE,CL 100 mmol/L (98-107); SODIUM,NA 132 mmol/L (136-148)
[2018-07-23] MEDS: Morphine 2 MG/ML Syringe IVPUSH PRN ×6 (06:56→23:03)
[2018-07-23] MEDS: Enoxaparin 40 MG/0.4 ML Syringe SUBCUT SCH (07:15)
[2018-07-23] MEDS ORDERED: Meropenem 1 GM SDV ONE (07:27)
[2018-07-23] MEDS: Meropenem 1 GM in Sodium Chloride 0.9% 100 ML IV SCH ×3 (07:31→23:08)
[2018-07-23] MEDS ORDERED: Lidocaine/Prilocaine 2.5-2.5% Crm 5 GM Kit TOP ONE (07:35)
[2018-07-23] MEDS ORDERED: 50% Dextrose in Water 50 ML Syringe ONE (09:00)
[2018-07-23 12:41] LABS: CHLORIDE,CL 104 mmol/L (98-107); SODIUM,NA 138 mmol/L (136-148)
[2018-07-23 14:46] LABS: CHLORIDE,CL 104 mmol/L (98-107); SODIUM,NA 135 mmol/L (136-148)
[2018-07-23] MEDS ORDERED: Insulin Aspart 100 Units/ML 3 ML Pen SUBCUT SCH (17:00)
[2018-07-23] MEDS: Insulin Aspart 100 Units/ML 3 ML Pen SUBCUT SCH (18:03)
[2018-07-23 19:08] LABS: CHLORIDE,CL 103 mmol/L (98-107); SODIUM,NA 134 mmol/L (136-148)
[2018-07-23] MEDS ORDERED: Insulin Glargine,Human Rec. Analog 100 Units/ML 3 ML Pen SUBCUT SCH (21:00)
[2018-07-23 23:29] LABS: CHLORIDE,CL 105 mmol/L (98-107); SODIUM,NA 137 mmol/L (136-148)
[2018-07-23] MEDS ORDERED: diphenhydrAMINE 25 MG Cap PO PRN (23:52)
[2018-07-24] MEDS: Sodium Chloride 0.9% 1,000 ML IV SCH ×2 (00:38→05:38)
[2018-07-24] MEDS: Morphine 2 MG/ML Syringe IVPUSH PRN ×2 (03:20→05:36)
[2018-07-24 06:14] LABS: CHLORIDE,CL 105 mmol/L (98-107); SODIUM,NA 137 mmol/L (136-148)
[2018-07-24] MEDS: Meropenem 1 GM in Sodium Chloride 0.9% 100 ML IV SCH (06:32)
--- NOTE | 2018-07-24 06:58 | PCM.PN ---
- General Info Date of Service: 07/24/18 Admission Dx/Problem (Free Text): Admission Diagnosis/Problem Admission Diagnosis/Problem Ketoacidosis, poorly controlled diabetes mellitus type 1, pyelonephritis, urinary retention Functional Status: Reports: Pain Controlled - Review of Systems General: Reports: No Symptoms HEENT: Reports: No Symptoms Pulmonary: Reports: No Symptoms Cardiovascular: Reports: No Symptoms Gastrointestinal: Reports: Abdominal Pain Genitourinary: Reports: No Symptoms Musculoskeletal: Reports: No Symptoms Skin: Reports: No Symptoms Neurological: Reports: No Symptoms Psychiatric: Reports: No Symptoms - Patient Data Vitals - Most Recent: Last Vital Signs Temp 36.3 C 07/24/18 04:00 Pulse 88 07/23/18 18:00 Resp 12 07/24/18 06:00 BP 109/79 07/24/18 06:00 Pulse Ox 99 07/24/18 06:00 Weight - Most Recent: 50.893 kg I&O - Last 24 Hours: Intake & Output 07/23/18 07/23/18 07/24/18 14:59 22:59 06:59 Intake Total 1101 1447 2432 Output Total 550 1180 1850 Balance 551 470 582 Lab Results Last 24 Hours: Laboratory Results - last 24 hr 07/23/18 07/23/18 07/23/18 Range/Units 07:14 08:08 08:56 WBC (4.0-11.0) K/uL RBC (4.50-5.90) M/uL Hgb (13.0-17.0) g/dL Hct (38.0-50.0) % MCV (80.0-98.0) fL MCH (27.0-32.0) pg MCHC (31.0-37.0) g/dL RDW Std Deviation (28.0-62.0) fl RDW Coeff of Erika (11.0-15.0) % Plt Count (150-400) K/uL MPV (7.40-12.00) fL Neut % (Auto) (48.0-80.0) % Lymph % (Auto) (16.0-40.0) % [facility] % (Auto) (0.0-15.0) % Eos % (Auto) (0.0-7.0) % Baso % (Auto) (0.0-1.5) % Neut # (Auto) (1.4-5.7) K/uL Lymph # (Auto) (0.6-2.4) K/uL [facility] [place] [facility] # (Auto) (0.0-0.8) K/uL Eos # (Auto) (0.0-0.7) K/uL Baso # (Auto) (0.0-0.1) K/uL Nucleated RBC % /100WBC Nucleated RBCs # K/uL Sodium (136-148) mmol/L Potassium (3.5-5.1) mmol/L Chloride (98-107) mmol/L Carbon Dioxide (21.0-32.0) mmol/L BUN (7.0-18.0) mg/dL Creatinine (0.8-1.3) mg/dL Est Cr Clr Drug Dosing mL/min Estimated GFR (MDRD) ml/min Glucose (74-106) mg/dL POC Glucose 185 H 106 62 (60-110) mg/dL Calcium (8.5-10.1) mg/dL Total Bilirubin (0.2-1.0) mg/dL AST (15-37) IU/L ALT (14-63) IU/L Alkaline Phosphatase (46-116) U/L Total Protein (6.4-8.2) g/dL Albumin (3.4-5.0) g/dL Globulin (2.6-4.0) g/dL Albumin/Globulin Ratio (0.9-1.6) 07/23/18 07/23/18 07/23/18 Range/Units 09:21 10:05 10:27 WBC (4.0-11.0) K/uL RBC (4.50-5.90) M/uL Hgb (13.0-17.0) g/dL Hct (38.0-50.0) % MCV (80.0-98.0) fL MCH (27.0-32.0) pg MCHC (31.0-37.0) g/dL RDW Std Deviation (28.0-62.0) fl RDW Coeff of Erika (11.0-15.0) % Plt Count (150-400) K/uL MPV (7.40-12.00) fL Neut % (Auto) (48.0-80.0) % Lymph % (Auto) (16.0-40.0) % [facility] [place] [facility] % (Auto) (0.0-15.0) % Eos % (Auto) (0.0-7.0) % Baso % (Auto) (0.0-1.5) % Neut # (Auto) (1.4-5.7) K/uL Lymph # (Auto) (0.6-2.4) K/uL [facility] # (Auto) (0.0-0.8) K/uL Eos # (Auto) (0.0-0.7) K/uL Baso # (Auto) (0.0-0.1) K/uL Nucleated RBC % /100WBC Nucleated RBCs # K/uL Sodium 138 (136-148) mmol/L Potassium 3.7 (3.5-5.1) mmol/L Chloride 104 (98-107) mmol/L Carbon Dioxide 24.2 (21.0-32.0) mmol/L BUN 17 (7.0-18.0) mg/dL Creatinine 0.6 L (0.8-1.3) mg/dL Est Cr Clr Drug Dosing 141.37 mL/min Estimated GFR (MDRD) > 60.0 ml/min Glucose 134 H (74-106) mg/dL POC Glucose 213 H 138 H (60-110) mg/dL Calcium 8.5 (8.5-10.1) mg/dL Total Bilirubin (0.2-1.0) mg/dL AST (15-37) IU/L ALT (14-63) IU/L Alkaline Phosphatase (46-116) U/L Total Protein (6.4-8.2) g/dL Albumin (3.4-5.0) g/dL Globulin (2.6-4.0) g/dL Albumin/Globulin Ratio (0.9-1.6) 07/23/18 07/23/18 07/23/18 Range/Units 11:00 12:15 13:14 WBC (4.0-11.0) K/uL RBC (4.50-5.90) M/uL Hgb (13.0-17.0) g/dL Hct (38.0-50.0) % MCV (80.0-98.0) fL MCH (27.0-32.0) pg MCHC (31.0-37.0) g/dL RDW Std Deviation (28.0-62.0) fl RDW Coeff of Erika (11.0-15.0) % Plt Count (150-400) K/uL MPV (7.40-12.00) fL Neut % (Auto) (48.0-80.0) % Lymph % (Auto) (16.0-40.0) % [facility] [place] [facility] % (Auto) (0.0-15.0) % Eos % (Auto) (0.0-7.0) % Baso % (Auto) (0.0-1.5) % Neut # (Auto) (1.4-5.7) K/uL Lymph # (Auto) (0.6-2.4) K/uL [facility] # (Auto) (0.0-0.8) K/uL Eos # (Auto) (0.0-0.7) K/uL Baso # (Auto) (0.0-0.1) K/uL Nucleated RBC % /100WBC Nucleated RBCs # K/uL Sodium (136-148) mmol/L Potassium (3.5-5.1) mmol/L Chloride (98-107) mmol/L Carbon Dioxide (21.0-32.0) mmol/L BUN (7.0-18.0) mg/dL Creatinine (0.8-1.3) mg/dL Est Cr Clr Drug Dosing mL/min Estimated GFR (MDRD) ml/min Glucose (74-106) mg/dL POC Glucose 119 H 125 H 157 H (60-110) mg/dL Calcium (8.5-10.1) mg/dL Total Bilirubin (0.2-1.0) mg/dL AST (15-37) IU/L ALT (14-63) IU/L Alkaline Phosphatase (46-116) U/L Total Protein (6.4-8.2) g/dL Albumin (3.4-5.0) g/dL Globulin (2.6-4.0) g/dL Albumin/Globulin Ratio (0.9-1.6) 07/23/18 07/23/18 07/23/18 Range/Units 14:08 14:21 15:05 WBC (4.0-11.0) K/uL RBC (4.50-5.90) M/uL Hgb (13.0-17.0) g/dL Hct (38.0-50.0) % MCV (80.0-98.0) fL MCH (27.0-32.0) pg MCHC (31.0-37.0) g/dL RDW Std Deviation (28.0-62.0) fl RDW Coeff of Erika (11.0-15.0) % Plt Count (150-400) K/uL MPV (7.40-12.00) fL Neut % (Auto) (48.0-80.0) % Lymph % (Auto) (16.0-40.0) % [facility] % (Auto) (0.0-15.0) % Eos % (Auto) (0.0-7.0) % Baso % (Auto) (0.0-1.5) % Neut # (Auto) (1.4-5.7) K/uL Lymph # (Auto) (0.6-2.4) K/uL [facility] # (Auto) (0.0-0.8) K/uL Eos # (Auto) (0.0-0.7) K/uL Baso # (Auto) (0.0-0.1) K/uL Nucleated RBC % /100WBC Nucleated RBCs # K/uL Sodium 135 L (136-148) mmol/L Potassium 3.8 (3.5-5.1) mmol/L Chloride 104 (98-107) mmol/L Carbon Dioxide 25.3 (21.0-32.0) mmol/L BUN 17 (7.0-18.0) mg/dL Creatinine 0.6 L (0.8-1.3) mg/dL Est Cr Clr Drug Dosing 141.37 mL/min Estimated GFR (MDRD) > 60.0 ml/min Glucose 183 H (74-106) mg/dL POC Glucose 181 H 182 H (60-110) mg/dL Calcium 8.3 L (8.5-10.1) mg/dL Total Bilirubin (0.2-1.0) mg/dL AST (15-37) IU/L ALT (14-63) IU/L Alkaline Phosphatase (46-116) U/L Total Protein (6.4-8.2) g/dL Albumin (3.4-5.0) g/dL Globulin (2.6-4.0) g/dL Albumin/Globulin Ratio (0.9-1.6) 07/23/18 07/23/18 07/23/18 Range/Units 17:59 18:33 20:27 WBC (4.0-11.0) K/uL RBC (4.50-5.90) M/uL Hgb (13.0-17.0) g/dL Hct (38.0-50.0) % MCV (80.0-98.0) fL MCH (27.0-32.0) pg MCHC (31.0-37.0) g/dL RDW Std Deviation (28.0-62.0) fl RDW Coeff of Erika (11.0-15.0) % Plt Count (150-400) K/uL MPV (7.40-12.00) fL Neut % (Auto) (48.0-80.0) % Lymph % (Auto) (16.0-40.0) % [facility] [place] [facility] % (Auto) (0.0-15.0) % Eos % (Auto) (0.0-7.0) % Baso % (Auto) (0.0-1.5) % Neut # (Auto) (1.4-5.7) K/uL Lymph # (Auto) (0.6-2.4) K/uL [facility] # (Auto) (0.0-0.8) K/uL Eos # (Auto) (0.0-0.7) K/uL Baso # (Auto) (0.0-0.1) K/uL Nucleated RBC % /100WBC Nucleated RBCs # K/uL Sodium 134 L (136-148) mmol/L Potassium 3.9 (3.5-5.1) mmol/L Chloride 103 (98-107) mmol/L Carbon Dioxide 23.8 (21.0-32.0) mmol/L BUN 15 (7.0-18.0) mg/dL Creatinine 0.7 L (0.8-1.3) mg/dL Est Cr Clr Drug Dosing 121.17 mL/min Estimated GFR (MDRD) > 60.0 ml/min Glucose 280 H (74-106) mg/dL POC Glucose 240 H 226 H (60-110) mg/dL Calcium 8.3 L (8.5-10.1) mg/dL Total Bilirubin (0.2-1.0) mg/dL AST (15-37) IU/L ALT (14-63) IU/L Alkaline Phosphatase (46-116) U/L Total Protein (6.4-8.2) g/dL Albumin (3.4-5.0) g/dL Globulin (2.6-4.0) g/dL Albumin/Globulin Ratio (0.9-1.6) 07/23/18 07/24/18 07/24/18 Range/Units 22:53 05:28 05:28 WBC 5.09 (4.0-11.0) K/uL RBC 3.65 L (4.50-5.90) M/uL Hgb 9.6 L (13.0-17.0) g/dL Hct 30.3 L (38.0-50.0) % MCV 83.0 (80.0-98.0) fL MCH 26.3 L (27.0-32.0) pg MCHC 31.7 (31.0-37.0) g/dL RDW Std Deviation 40.3 (28.0-62.0) fl RDW Coeff of Erika 13 (11.0-15.0) % Plt Count 236 (150-400) K/uL MPV 9.20 (7.40-12.00) fL Neut % (Auto) 63.0 (48.0-80.0) % Lymph % (Auto) 28.9 (16.0-40.0) % [facility] % (Auto) 4.7 (0.0-15.0) % Eos % (Auto) 2.8 (0.0-7.0) % Baso % (Auto) 0.6 (0.0-1.5) % Neut # (Auto) 3.2 (1.4-5.7) K/uL Lymph # (Auto) 1.5 (0.6-2.4) K/uL [facility] # (Auto) 0.2 (0.0-0.8) K/uL Eos # (Auto) 0.1 (0.0-0.7) K/uL Baso # (Auto) 0.0 (0.0-0.1) K/uL Nucleated RBC % 0.0 /100WBC Nucleated RBCs # 0 K/uL Sodium 137 137 (136-148) mmol/L Potassium 3.7 3.3 L (3.5-5.1) mmol/L Chloride 105 105 (98-107) mmol/L Carbon Dioxide 25.1 25.3 (21.0-32.0) mmol/L BUN 11 9 (7.0-18.0) mg/dL Creatinine 0.5 L 0.5 L (0.8-1.3) mg/dL Est Cr Clr Drug Dosing 169.64 169.64 mL/min Estimated GFR (MDRD) > 60.0 > 60.0 ml/min Glucose 198 H 204 H (74-106) mg/dL POC Glucose (60-110) mg/dL Calcium 8.2 L 8.1 L (8.5-10.1) mg/dL Total Bilirubin 0.1 L (0.2-1.0) mg/dL AST 11 L (15-37) IU/L ALT 8 L (14-63) IU/L Alkaline Phosphatase 69 (46-116) U/L Total Protein 6.6 (6.4-8.2) g/dL Albumin 2.1 L (3.4-5.0) g/dL Globulin 4.5 H (2.6-4.0) g/dL Albumin/Globulin Ratio 0.5 L (0.9-1.6) Med Orders - Current: Current Medications Diphenhydramine HCl (Benadryl) 25 mg PO Q6H PRN PRN Reason: Itching Last Admin: 07/23/18 23:57 Dose: 25 mg Enoxaparin Sodium (Lovenox) 40 mg SUBCUT Q24H [facility] Last Admin: 07/23/18 07:15 Dose: 40 mg Meropenem 1 gm/ Sodium (Chloride) 100 mls @ 200 mls/hr IV Q8H [facility] Last Admin: 07/24/18 06:32 Dose: 200 mls/hr Insulin Aspart (Novolog) 0 unit SUBCUT TIDAC [facility]; Protocol Last Admin: 07/23/18 18:03 Dose: 4 units Insulin Glargine (Lantus Solostar) 40 units SUBCUT BEDTIME [facility] Last Admin: 07/23/18 20:30 Dose: 40 unit Sodium Chloride (Saline Flush) 10 ml FLUSH ASDIRECTED PRN PRN Reason: Keep Vein Open Sodium Chloride (Saline Flush) 2.5 ml FLUSH ASDIRECTED PRN PRN Reason: Keep Vein Open Discontinued Medications Dextrose/Water (Dextrose 50% In Water) Confirm Administered Dose 50 ml .ROUTE .STK-MED ONE Stop: 07/23/18 09:01 Last Admin: 07/23/18 09:03 Dose: 50 ml Diphenhydramine HCl (Benadryl) 25 mg IVPUSH ONETIME ONE Stop: 07/23/18 03:00 Last Admin: 07/23/18 03:03 Dose: 25 mg Hydromorphone HCl (Dilaudid) 1 mg IVPUSH ONETIME ONE Stop: 07/23/18 02:33 Last Admin: 07/23/18 02:41 Dose: 1 mg Sodium Chloride (Normal Saline) 1,000 mls @ 999 mls/hr IV STAT ONE Stop: 07/23/18 03:32 Last Admin: 07/23/18 02:40 Dose: 999 mls/hr Sodium Chloride (Normal Saline) Confirm Administered Dose 20 mls @ as directed .ROUTE .STK-MED ONE Stop: 07/23/18 02:50 Last Admin: 07/23/18 02:57 Dose: 20 mls/hr Levofloxacin/Dextrose 500 mg/ (Premix) 100 mls @ 100 mls/hr IV ONETIME ONE Stop: 07/23/18 04:52 Last Admin: 07/23/18 04:14 Dose: 100 mls/hr Sodium Chloride (Normal Saline) 1,000 mls @ 125 mls/hr IV ASDIRECTED [facility] Last Admin: 07/23/18 04:14 Dose: 125 mls/hr Insulin Human Regular 100 unit (/ Sodium Chloride) 100 mls @ 5 mls/hr IV TITRATE [facility]; Protocol Last Titration: 07/23/18 08:11 Dose: 0 unit/hr, 0 mls/hr Sodium Chloride (Normal Saline) 1,000 mls @ 200 mls/hr IV ASDIRECTED [facility] Last Admin: 07/24/18 05:38 Dose: 200 mls/hr Insulin Aspart (Novolog) 5 unit SUBCUT TIDAC [facility] Insulin Human Regular (Novolin R) 15 unit SUBCUT ONETIME ONE; Protocol Stop: 07/23/18 02:35 Last Admin: 07/23/18 02:43 Dose: 15 unit Insulin Human Regular (Novolin R) 10 unit SUBCUT ONETIME ONE; Protocol Stop: 07/23/18 04:05 Last Admin: 07/23/18 04:16 Dose: 10 unit Iopamidol (Isovue Multipack-370 (76%)) 100 ml IVPUSH ONETIME STA Stop: 07/23/18 03:34 Last Admin: 07/23/18 03:33 Dose: 100 ml Lidocaine HCl (Xylocaine 2% Jelly) 30 ml .XX ONETIME ONE Stop: 07/23/18 06:53 Last Admin: 07/23/18 08:04 Dose: Not Given Lidocaine/Prilocaine (Emla Crm) 0 gm TOP ONETIME ONE Stop: 07/23/18 07:36 Last Admin: 07/23/18 07:37 Dose: 1 applic Meropenem (Merrem) Confirm Administered Dose 1 gm .ROUTE .STK-MED ONE Stop: 07/23/18 07:28 Last Admin: 07/23/18 08:04 Dose: Not Given Morphine Sulfate (Morphine) 2 mg IVPUSH ONETIME ONE Stop: 07/23/18 04:49 Last Admin: 07/23/18 04:52 Dose: 2 mg Morphine Sulfate (Morphine) 2 mg IVPUSH Q2H PRN PRN Reason: Pain (severe 7-10) Stop: 07/24/18 06:14 Last Admin: 07/24/18 05:36 Dose: 2 mg Ondansetron HCl (Zofran) 4 mg IVPUSH ONETIME ONE Stop: 07/23/18 02:33 Last Admin: 07/23/18 02:40 Dose: 4 mg Pantoprazole Sodium (Protonix Iv) 80 mg IVPUSH .BOLUS ONE Stop: 07/23/18 02:38 Last Admin: 07/23/18 02:50 Dose: 80 mg - Exam Quality Assessment: No: Supplemental Oxygen General: Alert, Oriented, Cooperative, No Acute Distress HEENT: Pupils Equal, Pupils Reactive, EOMI, Mucous Membr. Moist/[place] Neck: Supple, Trachea Midline Lungs: Clear to Auscultation, Normal Respiratory Effort Cardiovascular: Regular Rate, Regular Rhythm GI/Abdominal Exam: Normal Bowel Sounds, Soft, Non-Tender, No Distention Back Exam: Normal Inspection, Full Range of Motion. No: CVA Tenderness (L), CVA Tenderness (R) Extremities: Normal Inspection, No Pedal Edema Skin: Warm, Dry, Intact Neurological: No New Focal Deficit Psy/Mental Status: Alert, Normal Affect, Normal Mood - Problem List & Annotations (1) Pyelonephritis SNOMED Code(s): 36978608 Code(s): N12 - TUBULO-INTERSTITIAL NEPHRITIS, NOT SPCF ACUTE OR CHRONIC Status: Acute Priority: High Current Visit: Yes (2) DKA (diabetic ketoacidoses) SNOMED Code(s): 053804282, 232143766 Code(s): E13.10 - OTH DIABETES MELLITUS WITH KETOACIDOSIS WITHOUT COMA Status: Resolved Priority: High Current Visit: Yes Qualifiers: Diabetes mellitus type: type 1 Diabetes mellitus complication detail: without coma Qualified Code(s): E10.10 - Type 1 diabetes mellitus with ketoacidosis without coma (3) Diabetes type 1, uncontrolled SNOMED Code(s): 76571836, 730092265 Code(s): E10.65 - TYPE 1 DIABETES MELLITUS WITH HYPERGLYCEMIA Status: Chronic Priority: Medium Current Visit: Yes Qualifiers: Glycemic state: with hyperglycemia Qualified Code(s): E10.65 - Type 1 diabetes mellitus with hyperglycemia (4) Neurogenic dysfunction of the urinary bladder SNOMED Code(s): 260250743 Code(s): N31.9 - NEUROMUSCULAR DYSFUNCTION OF BLADDER, UNSPECIFIED Status: Suspected Priority: High Current Visit: Yes (5) 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 SNOMED Code(s): 229500017 Code(s): E10.40 - TYPE 1 DIABETES MELLITUS WITH DIABETIC NEUROPATHY, UNSP Status: Chronic Priority: Medium Current Visit: Yes (6) Diabetic gastroparesis SNOMED Code(s): 968475236 Code(s): E11.43 - TYPE 2 DIABETES W DIABETIC AUTONOMIC (POLY)NEUROPATHY; K31.84 - GASTROPARESIS Status: Chronic Priority: Medium Current Visit: Yes (7) Depression SNOMED Code(s): 75144801 Code(s): F32.9 - MAJOR DEPRESSIVE DISORDER, SINGLE EPISODE, UNSPECIFIED Status: Chronic Current Visit: Yes Qualifiers: Depression Type: major depressive disorder Major depression recurrence: unspecified whether recurrent Active/Remission status: in remission of unspecified degree Qualified Code(s): F32.5 - Major depressive disorder, single episode, in full remission (8) Abdominal pain SNOMED Code(s): 59719690 Code(s): R10.9 - UNSPECIFIED ABDOMINAL PAIN Status: Chronic Priority: High Current Visit: Yes Qualifiers: Abdominal location: upper abdomen, unspecified Qualified Code(s): R10.10 - Upper abdominal pain, unspecified - Problem List Review Problem List Initiated/Reviewed/Updated: Yes - My Orders Last 24 Hours: My Active Orders 07/23/18 06:12 Oxygen Therapy [RC] PRN Up ad Romy [RC] ASDIRECTED VTE/DVT Education [RC] PER UNIT ROUTINE Vital Signs [RC] Q1H Glucose Management Sub Q Reflex [OM.PC] Click To Edit Resuscitation Status Routine 07/23/18 06:13 Cardiac Monitoring [RC] Q8H Diabetes Education [RC] Click to Edit 07/23/18 06:30 Clements Catheter Insertion [Insert Urinary Catheter] [OM.PC] Q24H 07/23/18 07:30 Meropenem [Merrem] 1 gm Sodium Chloride 0.9% [Normal Saline] 100 ml IV Q8H 07/23/18 08:00 Enoxaparin [Lovenox] 40 mg SUBCUT Q24H 07/23/18 08:33 Urinary Catheter Assessment [RC] Q8H 07/23/18 15:11 Blood Glucose Check, Bedside [RC] WITHMEALSANDBED 07/23/18 17:00 Insulin Aspart [NovoLOG] See Protocol SUBCUT TIDAC 07/23/18 21:00 Insulin Glarg,Human.Rec.Analog [LantUS Solostar] 40 units SUBCUT BEDTIME 07/23/18 Lunch Clear Liquid Diet [DIET] - Plan Plan:: The patient is a complicated 22-year-old gentleman who had been admitted initially secondary to dehydration, borderline diabetic ketoacidosis and was also noted to have pyelonephritis with hydronephrosis. The patient had been retaining urine and post void residuals were around 600 mL. Clements catheter was inserted with some difficulty yesterday. I've ordered repeat ultrasound of the patient's kidneys to help exclude worsening of his bowel nephritis as well as resolution of his hydronephrosis. The patient's diabetic ketoacidosis is resolved. The patient has expressed a strong desire to go home today however, I feel it it's in the patient's best interest to stay at least 1 more day. Because of the patient may have difficulty with neurogenic bladder at this point and will ultimately need referral to urology. Patient will kept on Lovenox for DVT prophylaxis. He's been encouraged to ambulate. Patient's diet has been a advanced to full diabetic diet as tolerated. The patient will also be continued on his Reglan and also his Zofran. The patient says he is out of both these medications and will need to have refills of these upon discharge. Patient should be appropriate for discharge in the morning.
[2018-07-24] MEDS: Insulin Aspart 100 Units/ML 3 ML Pen SUBCUT SCH ×3 (08:44→14:33)
[2018-07-24] MEDS: Enoxaparin 40 MG/0.4 ML Syringe SUBCUT SCH (09:22)
[2018-07-24] MEDS: Metoclopramide 5 MG Tab PO SCH ×2 (09:23→12:01)
[2018-07-24] MEDS ORDERED: Magnesium Sulfate/Water 4 GM in Premix Bag 1 BAG IV ONE (11:51)
[2018-07-24] MEDS ORDERED: Potassium Chloride 20 MEQ Tab.ER PO ONE (11:51)
--- NOTE | 2018-07-24 13:13 | US ---
INDICATION: Pyelonephritis. TECHNIQUE: Sonographic images were obtained through the kidneys and bladder. COMPARISON: CT of the abdomen and pelvis 07/23/2018. FINDINGS: The right kidney measures 12.4 x 5.6 x 6.5 cm. There is mild hydronephrosis/pelvocaliectasis on the right. The left kidney measures 11.3 x 6.1 x 6.1 cm. No obstruction or hydronephrosis on the left. No perinephric fluid collections. Catheter noted in the urinary bladder. IMPRESSION: 1. Mild right-sided hydronephrosis/pelvocaliectasis. 2. No hydronephrosis on the left. Dictated by Helio Brennan MD @ Jul 24 2018 1:06PM Signed by Dr. Helio Brennan @ Jul 24 2018 1:10PM
[2018-07-24 15:41] VITALS: BP 112/84
== END 2018-07-24 15:30 | disposition left against medical advice (07) | DRG 638 ==
LOC: MW.ED 02:16 → MW.ICU 04:23 → MW.OB 18:12 → MW.ICU 19:59
PROVIDERS: ADMIT Internal Medicine; ATTEND Internal Medicine
DX: E10.10 Type 1 diabetes mellitus with ketoacidosis without coma (principal); N12 Tubulo-interstitial nephritis, not specified as acute or chronic; N13.30 Unspecified hydronephrosis; E10.43 Type 1 diabetes mellitus with diabetic autonomic (poly)neuropathy; K31.84 Gastroparesis; E10.42 Type 1 diabetes mellitus with diabetic polyneuropathy; F32.9 Major depressive disorder, single episode, unspecified; N32.89 Other specified disorders of bladder; F17.210 Nicotine dependence, cigarettes, uncomplicated; E10.65 Type 1 diabetes mellitus with hyperglycemia; N31.9 Neuromuscular dysfunction of bladder, unspecified; R33.9 Retention of urine, unspecified
CPT/HCPCS: 36415; 51702; 51798; 74177; 74177-26; 76775; 76775-26; 80048; 80053; 80305-QW; 81001; 82009; 82150; 82962; 83036; 83690; 83735; 84100; 85025; 87086; 87088; 87186; 96361; 96365; 96375; 99285-25; A4217; A9270-GY; C9113; J1170; J1200; J1650; J1815-GY; J1956; J2185; J2270; J2405; J3475; J7030; J7040; J7060; Q9967

== ENCOUNTER 2018-07-26 21:46 | Observation (INO) | payer MEDICAID ==
[2018-07-26] MEDS ORDERED: Sodium Chloride 0.9% 10 ML Syringe FLUSH PRN (21:49)
[2018-07-26] MEDS ORDERED: Sodium Chloride 0.9% 2.5 ML Syringe FLUSH PRN (21:49)
[2018-07-26] MEDS ORDERED: Sodium Chloride 0.9% 1,000 ML IV ONE ×2 (21:50→22:15)
[2018-07-26] MEDS ORDERED: Ondansetron 4 MG/2 ML SDV IVPUSH ONE (21:51)
--- NOTE | 2018-07-26 22:06 | EDM.PDOC ---
ED HPI GENERAL MEDICAL PROBLEM - General Chief Complaint: Abdominal Pain Stated Complaint: STOMACH PAIN Time Seen by Provider: 07/26/18 22:05 Source of Information: Reports: Patient - History of Present Illness INITIAL COMMENTS - FREE TEXT/NARRATIVE: HISTORY AND PHYSICAL: History of present illness: [Patient presents with abdominal pain, history of pyelonephritis, admitted 613 and left AGAINST MEDICAL ADVICE Returns with similar symptoms today] Review of systems: As per history of present illness and below otherwise all systems reviewed and negative. Past medical history: As per history of present illness and as reviewed below otherwise noncontributory. Surgical history: As per history of present illness and as reviewed below otherwise noncontributory. Social history: No reported history of drug or alcohol abuse. Family history: As per history of present illness and as reviewed below otherwise noncontributory. Physical exam: HEENT: Atraumatic, normocephalic, pupils reactive, negative for conjunctival pallor or scleral icterus, mucous membranes moist, throat clear, neck supple, nontender, trachea midline. Lungs: Clear to auscultation, breath sounds equal bilaterally, chest nontender. Heart: S1S2, regular, negative for clicks, rubs, or JVD. Abdomen: Soft, nondistended, nontender. Negative for masses or hepatosplenomegaly. Negative for costovertebral tenderness. Pelvis: Stable nontender. Genitourinary: Deferred. Rectal: Deferred. Extremities: Atraumatic, negative for cords or calf pain. Neurovascular unremarkable. Neuro: Awake, alert, oriented. Cranial nerves II through XII unremarkable. Cerebellum unremarkable. Motor and sensory unremarkable throughout. Exam nonfocal. Diagnostics: [CBC CMP UA ABG blood cultures 2 Chest 1 view ] Therapeutics: [Normal saline Meropenem 1 g IV Insulin 20 units IV, 20 units subcutaneous Morphine 2 mg IV Reglan 10 mg IV ] Impression: [Abdominal pain History of gastroparesis ] Medication noncompliance Electrolyte abnormalities Type 1 diabetes Chronic history of baseline Definitive disposition and diagnosis as appropriate pending reevaluation and review of above. abdomen Pain Score (Numeric/FACES): 10 - Related Data Allergies Allergy/AdvReac Type Severity Reaction Status Date / Time No Known Allergies Allergy Verified 07/26/18 22:13 Home Meds: Home Meds Insulin Glargine,Hum.Rec.Anlog [Lantus Solostar] 40 unit SQ BEDTIME #3 pen 11/26 [Rx] Insulin Aspart [NovoLOG] 5 units SUBCUT TIDAC 07/23/18 [History] Past Medical History - Past Health History Medical/Surgical History: Denies Medical/Surgical History HEENT History: Reports: Other (See Below) Other HEENT History: ear ache Cardiovascular History: Reports: None Respiratory History: Reports: None Gastrointestinal History: Reports: Irritable Bowel Syndrome Other Gastrointestinal History: gastropharesis Musculoskeletal History: Reports: Fracture Other Musculoskeletal History: Elbow long time ago Neurological History: Reports: None Psychiatric History: Reports: Depression Endocrine/Metabolic History: Reports: Diabetes, Type I Hematologic History: Reports: None Oncologic (Cancer) History: Reports: None - Infectious Disease History Infectious Disease History: Reports: Influenza - Past Surgical History Endocrine Surgical History: Reports: None Social & Family History - Family History Family Medical History: Noncontributory OBGYN: Reports: Endocrine/Metabolic: Reports: Diabetes, Type I, Diabetes, type II - Caffeine Use Caffeine Use: Reports: Coffee, Energy Drinks - Living Situation & Occupation Living situation: Reports: Single, with Family Occupation: Unemployed ED ROS GENERAL - Review of Systems Review Of Systems: See Below ED EXAM, GENERAL - Physical Exam Exam: See Below Course - Vital Signs Last Recorded V/S: Last Vital Signs Temp 96.6 F 07/26/18 22:00 Pulse 92 07/26/18 23:18 Resp 17 07/26/18 23:18 BP 128/86 07/26/18 23:18 Pulse Ox 96 07/26/18 23:18 - Orders/Labs/Meds Orders: Active Orders 24 hr Category Date Time Status Blood Glucose Check, Bedside [RC] ONETIME Care 07/26/18 21:49 Active CULTURE BLOOD [BC] Stat Lab 07/26/18 22:45 Received CULTURE BLOOD [BC] Stat Lab 07/26/18 22:45 Received UA RFX YADY AND CULT IF INDIC [URIN] Stat Lab 07/26/18 21:49 Ordered Meropenem [Merrem] 1 gm Med 07/26/18 23:59 Ordered Sodium Chloride 0.9% [Normal Saline] 100 ml IV ONETIME Sodium Chloride 0.9% [Normal Saline] 1,000 ml Med 07/26/18 23:45 Active IV STAT Sodium Chloride 0.9% [Saline Flush] Med 07/26/18 21:49 Active 10 ml FLUSH ASDIRECTED PRN Sodium Chloride 0.9% [Saline Flush] Med 07/26/18 21:49 Active 2.5 ml FLUSH ASDIRECTED PRN Blood Culture x2 Reflex Set [OM.PC] Stat Oth 07/26/18 22:42 Ordered Saline Lock Insert [OM.PC] Stat Oth 07/26/18 21:49 Ordered Medication Orders Sodium Chloride (Normal Saline) 1,000 mls @ 125 mls/hr IV STAT AUGUSTINE Sodium Chloride (Saline Flush) 10 ml FLUSH ASDIRECTED PRN PRN Reason: Keep Vein Open Sodium Chloride (Saline Flush) 2.5 ml FLUSH ASDIRECTED PRN PRN Reason: Keep Vein Open Labs: Laboratory Tests 07/26/18 07/26/18 07/26/18 Range/Units 22:23 22:23 23:07 WBC 6.21 (4.0-11.0) K/uL RBC 4.36 L (4.50-5.90) M/uL Hgb 11.6 L (13.0-17.0) g/dL Hct 37.0 L (38.0-50.0) % MCV 84.9 (80.0-98.0) fL MCH 26.6 L (27.0-32.0) pg MCHC 31.4 (31.0-37.0) g/dL RDW Std Deviation 41.0 (28.0-62.0) fl RDW Coeff of Erika 13 (11.0-15.0) % Plt Count 302 (150-400) K/uL MPV 10.10 (7.40-12.00) fL Neut % (Auto) 71.1 (48.0-80.0) % Lymph % (Auto) 24.2 (16.0-40.0) % Davison % (Auto) 3.1 (0.0-15.0) % Eos % (Auto) 1.1 (0.0-7.0) % Baso % (Auto) 0.5 (0.0-1.5) % Neut # (Auto) 4.4 (1.4-5.7) K/uL Lymph # (Auto) 1.5 (0.6-2.4) K/uL Davison # (Auto) 0.2 (0.0-0.8) K/uL Eos # (Auto) 0.1 (0.0-0.7) K/uL Baso # (Auto) 0.0 (0.0-0.1) K/uL Nucleated RBC % 0.0 /100WBC Nucleated RBCs # 0 K/uL ABG pH 7.610 H (7.35-7.45) ABG pCO2 19 L (35-45) mmHG ABG pO2 125 H (75-100) mmHG ABG HCO3 19 L (22-26) mEq/L ABG Total CO2 17.1 ABG Base Excess -0.7 (-2.0-2.0) Sodium 126 L (136-148) mmol/L Potassium 4.7 (3.5-5.1) mmol/L Chloride 92 L (98-107) mmol/L Carbon Dioxide 26.7 (21.0-32.0) mmol/L BUN 18 (7.0-18.0) mg/dL Creatinine 1.0 (0.8-1.3) mg/dL Est Cr Clr Drug Dosing 86.67 mL/min Estimated GFR (MDRD) > 60.0 ml/min Glucose 659 H* (74-106) mg/dL Calcium 9.1 (8.5-10.1) mg/dL Total Bilirubin 0.3 (0.2-1.0) mg/dL AST 12 L (15-37) IU/L ALT 12 L (14-63) IU/L Alkaline Phosphatase 92 (46-116) U/L Total Protein 8.2 (6.4-8.2) g/dL Albumin 2.9 L (3.4-5.0) g/dL Globulin 5.3 H (2.6-4.0) g/dL Albumin/Globulin Ratio 0.6 L (0.9-1.6) Lipase 225 (73-393) U/L Meds: Medications Generic Name Dose Route Start Last Admin Trade Name Freq PRN Reason Stop Dose Admin Sodium Chloride 1,000 mls @ 125 mls/hr 07/26/18 23:45 Normal Saline IV STAT AUGUSTINE Sodium Chloride 10 ml 07/26/18 21:49 Saline Flush FLUSH ASDIRECTED PRN Keep Vein Open Sodium Chloride 2.5 ml 07/26/18 21:49 Saline Flush FLUSH ASDIRECTED PRN Keep Vein Open Discontinued Medications Generic Name Dose Route Start Last Admin Trade Name Mary PRN Reason Stop Dose Admin Diphenhydramine HCl 50 mg 07/26/18 23:22 07/26/18 23:28 Benadryl IVPUSH 07/26/18 23:23 50 mg ONETIME ONE Administration Sodium Chloride 1,000 mls @ 999 mls/hr 07/26/18 21:50 07/26/18 22:32 Normal Saline IV 07/26/18 22:50 999 mls/hr STAT ONE Administration Sodium Chloride 1,000 mls @ 999 mls/hr 07/26/18 22:15 07/26/18 23:08 Normal Saline IV 07/26/18 23:15 999 mls/hr STAT ONE Administration Insulin Human Regular 10 unit 07/26/18 22:14 07/26/18 22:35 Novolin R IVPUSH 07/26/18 22:15 10 units ONETIME ONE Administration Protocol Insulin Human Regular 10 unit 07/26/18 22:25 07/26/18 22:37 Novolin R SUBCUT 07/26/18 22:26 10 units NOW STA Administration Protocol Insulin Human Regular 10 unit 07/26/18 23:08 07/26/18 23:15 Novolin R IVPUSH 07/26/18 23:09 10 units ONETIME ONE Administration Protocol Metoclopramide HCl 10 mg 07/26/18 22:15 07/26/18 22:33 Reglan IV 07/26/18 22:16 10 mg ONETIME ONE Administration Morphine Sulfate 2 mg 07/26/18 22:45 07/26/18 23:07 Morphine IVPUSH 07/26/18 22:46 2 mg ONETIME ONE Administration Ondansetron HCl 4 mg 07/26/18 21:51 07/26/18 22:34 Zofran IVPUSH 07/26/18 21:52 4 mg ONETIME ONE Administration Departure - Departure Time of Disposition: 00:01 Disposition: Refer to Observation Condition: Fair Clinical Impression: Pyelonephritis, Diabetic gastroparesis Abdominal pain Qualifiers: Abdominal location: upper abdomen, unspecified Qualified Code(s): R10.10 - Upper abdominal pain, unspecified Diabetes type 1, uncontrolled Qualifiers: Glycemic state: with hyperglycemia Qualified Code(s): E10.65 - Type 1 diabetes mellitus with hyperglycemia - Discharge Information Referrals: PCP,Unknown [Primary Care Provider] - Forms: ED Department Discharge - My Orders Last 24 Hours: My Active Orders 07/26/18 22:42 Blood Culture x2 Reflex Set [OM.PC] Stat 07/26/18 22:45 CULTURE BLOOD [BC] Stat CULTURE BLOOD [BC] Stat 07/26/18 23:45 Sodium Chloride 0.9% [Normal Saline] 1,000 ml IV STAT 07/26/18 23:59 Meropenem [Merrem] 1 gm Sodium Chloride 0.9% [Normal Saline] 100 ml IV ONETIME - Assessment/Plan Last 24 Hours: My Active Orders 07/26/18 22:42 Blood Culture x2 Reflex Set [OM.PC] Stat 07/26/18 22:45 CULTURE BLOOD [BC] Stat CULTURE BLOOD [BC] Stat 07/26/18 23:45 Sodium Chloride 0.9% [Normal Saline] 1,000 ml IV STAT 07/26/18 23:59 Meropenem [Merrem] 1 gm Sodium Chloride 0.9% [Normal Saline] 100 ml IV ONETIME
[2018-07-26] MEDS ORDERED: Insulin Regular, Human 100 Units/ML 10 ML Vial IVPUSH ONE ×2 (22:14→23:08)
[2018-07-26] MEDS ORDERED: Metoclopramide 10 MG/2 ML SDV IV ONE (22:15)
[2018-07-26] MEDS ORDERED: Insulin Regular, Human 100 Units/ML 10 ML Vial SUBCUT STA (22:25)
[2018-07-26] MEDS ORDERED: Morphine 2 MG/ML Syringe IVPUSH ONE (22:45)
[2018-07-26 22:59] LABS: CHLORIDE,CL 92 mmol/L (98-107); SODIUM,NA 126 mmol/L (136-148)
--- NOTE | 2018-07-26 23:10 | CR ---
INDICATION: Chest pain, shortness of breath TECHNIQUE: Chest 1 view COMPARISON: None available. FINDINGS: The heart is normal in size. The pulmonary vasculature is within normal limits. The lungs are clear. IMPRESSION: No acute process. Dictated by Stacey Jerry MD @ Jul 26 2018 11:08PM Signed by Dr. Stacey Jerry @ Jul 26 2018 11:10PM
[2018-07-26] MEDS ORDERED: diphenhydrAMINE 50 MG/ML SDV IVPUSH ONE (23:22)
[2018-07-26] MEDS ORDERED: Sodium Chloride 0.9% 1,000 ML IV SCH (23:45)
[2018-07-26] MEDS ORDERED: Meropenem 1 GM in Sodium Chloride 0.9% 100 ML IV ONE (23:59)
[2018-07-27] MEDS ORDERED: Morphine 2 MG/ML Syringe IVPUSH ONE (00:27)
[2018-07-27] MEDS ORDERED: Sodium Chloride 0.9% 1,000 ML IV SCH (01:15)
[2018-07-27] MEDS: Morphine 2 MG/ML Syringe IVPUSH PRN ×8 (02:35→20:24)
[2018-07-27] MEDS: Insulin Aspart 100 Units/ML 3 ML Pen SUBCUT SCH ×3 (06:38→18:09)
[2018-07-27 06:42] LABS: CHLORIDE,CL 106 mmol/L (98-107); SODIUM,NA 137 mmol/L (136-148)
[2018-07-27] MEDS ORDERED: oxyCODONE 5 MG Tab PO PRN (06:43)
[2018-07-27] MEDS ORDERED: Acetaminophen 325 MG Tab PO PRN (06:43)
[2018-07-27] MEDS ORDERED: Temazepam 15 MG Cap PO PRN (06:43)
[2018-07-27] MEDS ORDERED: Morphine 10 MG/ML Syringe IVPUSH PRN (06:43)
[2018-07-27] MEDS: Sodium Chloride 0.9% 1,000 ML IV SCH ×2 (07:15→20:23)
[2018-07-27] MEDS: Enoxaparin 40 MG/0.4 ML Syringe SUBCUT SCH ×2 (07:57→08:02)
--- NOTE | 2018-07-27 09:06 | PCM.HP ---
<Balta Olsen - Last Filed: 07/27/18 11:35> H&P History of Present Illness - General Date of Service: 07/27/18 Admit Problem/Dx: Admission Diagnosis/Problem Admission Diagnosis/Problem Pyelonephritis - History of Present Illness Initial Comments - Free Text/Narative: 22 y/o male with history of type 1 diabetes who presented to the ER complaining of nausea and abdominal pain. Patient states that symptoms started 2 days ago. He states he has been taking his insulin at home. He was recently admitted for pyelonephritis and given antibiotics, however, he left AMA at that time. Today, he denies any chest pain, dyspnea, dysuria, diarrhea or blood in stool. abdomen Pain Score (Numeric/FACES): 10 - Related Data Allergies/Adverse Reactions: Allergies Allergy/AdvReac Type Severity Reaction Status Date / Time No Known Allergies Allergy Verified 07/26/18 22:13 Home Medications: Home Meds Insulin Glargine,Hum.Rec.Anlog [Lantus Solostar] 40 unit SQ BEDTIME #3 pen 11/26 [Rx] Insulin Aspart [NovoLOG] 5 units SUBCUT TIDAC 07/23/18 [History] Past Medical History - Past Health History Medical/Surgical History: Denies Medical/Surgical History HEENT History: Reports: Other (See Below) Other HEENT History: ear ache Cardiovascular History: Reports: None Respiratory History: Reports: None Gastrointestinal History: Reports: Irritable Bowel Syndrome Other Gastrointestinal History: gastropharesis Musculoskeletal History: Reports: Fracture Other Musculoskeletal History: Elbow long time ago Neurological History: Reports: None Psychiatric History: Reports: Depression Endocrine/Metabolic History: Reports: Diabetes, Type I Hematologic History: Reports: None Oncologic (Cancer) History: Reports: None - Infectious Disease History Infectious Disease History: Reports: Influenza - Past Surgical History Endocrine Surgical History: Reports: None Social & Family History - Family History Family Medical History: Noncontributory OBGYN: Reports: Endocrine/Metabolic: Reports: Diabetes, Type I, Diabetes, type II - Tobacco Use Smoking Status *Q: Light Tobacco Smoker Years of Tobacco use: 1 Packs/Tins Daily: 0.2 Used Tobacco, but Quit: No Second Hand Smoke Exposure: Yes - Caffeine Use Caffeine Use: Reports: Coffee, Tea - Recreational Drug Use Recreational Drug Use: No - Living Situation & Occupation Living situation: Reports: Single, with Family Occupation: Unemployed H&P Review of Systems - Review of Systems: Review Of Systems: ROS reveals no pertinent complaints other than HPI. Exam - Exam Exam: See Below - Vital Signs Vital Signs: Last Vital Signs Temp 36.6 C 07/27/18 08:06 Pulse 86 07/27/18 08:06 Resp 18 07/27/18 08:06 BP 102/67 07/27/18 08:06 Pulse Ox 99 07/27/18 08:06 Weight: 52.5 kg - Exam General: Alert, Oriented, Cooperative HEENT: Conjunctiva Clear, Mucosa Moist & [place] Lungs: Clear to Auscultation, Normal Respiratory Effort Cardiovascular: Regular Rate, Regular Rhythm GI/Abdominal Exam: Soft, No Distention, Tender. No: Rebound Back Exam: Normal Inspection, Full Range of Motion Extremities: Normal Inspection, No Pedal Edema Skin: Warm, Dry Neuro Extensive - Mental Status: Alert, Oriented x3 - Patient Data Lab Results Last 24 hrs: Laboratory Results - last 24 hr 07/26/18 07/26/18 07/26/18 Range/Units 22:23 22:23 23:07 WBC 6.21 (4.0-11.0) K/uL RBC 4.36 L (4.50-5.90) M/uL Hgb 11.6 L (13.0-17.0) g/dL Hct 37.0 L (38.0-50.0) % MCV 84.9 (80.0-98.0) fL MCH 26.6 L (27.0-32.0) pg MCHC 31.4 (31.0-37.0) g/dL RDW Std Deviation 41.0 (28.0-62.0) fl RDW Coeff of Erika 13 (11.0-15.0) % Plt Count 302 (150-400) K/uL MPV 10.10 (7.40-12.00) fL Neut % (Auto) 71.1 (48.0-80.0) % Lymph % (Auto) 24.2 (16.0-40.0) % Hand % (Auto) 3.1 (0.0-15.0) % Eos % (Auto) 1.1 (0.0-7.0) % Baso % (Auto) 0.5 (0.0-1.5) % Neut # (Auto) 4.4 (1.4-5.7) K/uL Lymph # (Auto) 1.5 (0.6-2.4) K/uL Hand # (Auto) 0.2 (0.0-0.8) K/uL Eos # (Auto) 0.1 (0.0-0.7) K/uL Baso # (Auto) 0.0 (0.0-0.1) K/uL Nucleated RBC % 0.0 /100WBC Nucleated RBCs # 0 K/uL ABG pH 7.610 H (7.35-7.45) ABG pCO2 19 L (35-45) mmHG ABG pO2 125 H (75-100) mmHG ABG HCO3 19 L (22-26) mEq/L ABG Total CO2 17.1 ABG Base Excess -0.7 (-2.0-2.0) Sodium 126 L (136-148) mmol/L Potassium 4.7 (3.5-5.1) mmol/L Chloride 92 L (98-107) mmol/L Carbon Dioxide 26.7 (21.0-32.0) mmol/L BUN 18 (7.0-18.0) mg/dL Creatinine 1.0 (0.8-1.3) mg/dL Est Cr Clr Drug Dosing 86.67 mL/min Estimated GFR (MDRD) > 60.0 ml/min Glucose 659 H* (74-106) mg/dL POC Glucose (60-110) mg/dL Calcium 9.1 (8.5-10.1) mg/dL Total Bilirubin 0.3 (0.2-1.0) mg/dL AST 12 L (15-37) IU/L ALT 12 L (14-63) IU/L Alkaline Phosphatase 92 (46-116) U/L Total Protein 8.2 (6.4-8.2) g/dL Albumin 2.9 L (3.4-5.0) g/dL Globulin 5.3 H (2.6-4.0) g/dL Albumin/Globulin Ratio 0.6 L (0.9-1.6) Lipase 225 (73-393) U/L Urine Color Urine Appearance Urine pH (5.0-8.0) Ur Specific [place] (1.001-1.035) Urine Protein (NEGATIVE) mg/dL Urine Glucose (UA) (NEGATIVE) mg/dL Urine Ketones (NEGATIVE) mg/dL Urine Occult Blood (NEGATIVE) Urine Nitrite (NEGATIVE) Urine Bilirubin (NEGATIVE) Urine Urobilinogen (<2.0) EU/dL Ur Leukocyte Esterase (NEGATIVE) 07/26/18 07/27/18 07/27/18 Range/Units 23:32 00:17 01:20 WBC (4.0-11.0) K/uL RBC (4.50-5.90) M/uL Hgb (13.0-17.0) g/dL Hct (38.0-50.0) % MCV (80.0-98.0) fL MCH (27.0-32.0) pg MCHC (31.0-37.0) g/dL RDW Std Deviation (28.0-62.0) fl RDW Coeff of Erika (11.0-15.0) % Plt Count (150-400) K/uL MPV (7.40-12.00) fL Neut % (Auto) (48.0-80.0) % Lymph % (Auto) (16.0-40.0) % Hand % (Auto) (0.0-15.0) % Eos % (Auto) (0.0-7.0) % Baso % (Auto) (0.0-1.5) % Neut # (Auto) (1.4-5.7) K/uL Lymph # (Auto) (0.6-2.4) K/uL Hand # (Auto) (0.0-0.8) K/uL Eos # (Auto) (0.0-0.7) K/uL Baso # (Auto) (0.0-0.1) K/uL Nucleated RBC % /100WBC Nucleated RBCs # K/uL ABG pH (7.35-7.45) ABG pCO2 (35-45) mmHG ABG pO2 (75-100) mmHG ABG HCO3 (22-26) mEq/L ABG Total CO2 ABG Base Excess (-2.0-2.0) Sodium (136-148) mmol/L Potassium (3.5-5.1) mmol/L Chloride (98-107) mmol/L Carbon Dioxide (21.0-32.0) mmol/L BUN (7.0-18.0) mg/dL Creatinine (0.8-1.3) mg/dL Est Cr Clr Drug Dosing mL/min Estimated GFR (MDRD) ml/min Glucose (74-106) mg/dL POC Glucose 453 H 373 H (60-110) mg/dL Calcium (8.5-10.1) mg/dL Total Bilirubin (0.2-1.0) mg/dL AST (15-37) IU/L ALT (14-63) IU/L Alkaline Phosphatase (46-116) U/L Total Protein (6.4-8.2) g/dL Albumin (3.4-5.0) g/dL Globulin (2.6-4.0) g/dL Albumin/Globulin Ratio (0.9-1.6) Lipase (73-393) U/L Urine Color YELLOW Urine Appearance HAZY Urine pH 7.0 (5.0-8.0) Ur Specific [place] 1.010 (1.001-1.035) Urine Protein NEGATIVE (NEGATIVE) mg/dL Urine Glucose (UA) >=1000 (NEGATIVE) mg/dL Urine Ketones 15 H (NEGATIVE) mg/dL Urine Occult Blood NEGATIVE (NEGATIVE) Urine Nitrite NEGATIVE (NEGATIVE) Urine Bilirubin NEGATIVE (NEGATIVE) Urine Urobilinogen 0.2 (<2.0) EU/dL Ur Leukocyte Esterase NEGATIVE (NEGATIVE) 07/27/18 07/27/18 07/27/18 Range/Units 01:41 05:14 05:44 WBC 6.10 (4.0-11.0) K/uL RBC 3.85 L (4.50-5.90) M/uL Hgb 10.2 L (13.0-17.0) g/dL Hct 31.5 L (38.0-50.0) % MCV 81.8 (80.0-98.0) fL MCH 26.5 L (27.0-32.0) pg MCHC 32.4 (31.0-37.0) g/dL RDW Std Deviation 39.5 (28.0-62.0) fl RDW Coeff of Erika 13 (11.0-15.0) % Plt Count 301 (150-400) K/uL MPV 9.70 (7.40-12.00) fL Neut % (Auto) 55.3 (48.0-80.0) % Lymph % (Auto) 37.4 (16.0-40.0) % Hand % (Auto) 4.9 (0.0-15.0) % Eos % (Auto) 2.1 (0.0-7.0) % Baso % (Auto) 0.3 (0.0-1.5) % Neut # (Auto) 3.4 (1.4-5.7) K/uL Lymph # (Auto) 2.3 (0.6-2.4) K/uL Hand # (Auto) 0.3 (0.0-0.8) K/uL Eos # (Auto) 0.1 (0.0-0.7) K/uL Baso # (Auto) 0.0 (0.0-0.1) K/uL Nucleated RBC % 0.0 /100WBC Nucleated RBCs # 0 K/uL ABG pH (7.35-7.45) ABG pCO2 (35-45) mmHG ABG pO2 (75-100) mmHG ABG HCO3 (22-26) mEq/L ABG Total CO2 ABG Base Excess (-2.0-2.0) Sodium (136-148) mmol/L Potassium (3.5-5.1) mmol/L Chloride (98-107) mmol/L Carbon Dioxide (21.0-32.0) mmol/L BUN (7.0-18.0) mg/dL Creatinine (0.8-1.3) mg/dL Est Cr Clr Drug Dosing mL/min Estimated GFR (MDRD) ml/min Glucose (74-106) mg/dL POC Glucose 304 H 221 H (60-110) mg/dL Calcium (8.5-10.1) mg/dL Total Bilirubin (0.2-1.0) mg/dL AST (15-37) IU/L ALT (14-63) IU/L Alkaline Phosphatase (46-116) U/L Total Protein (6.4-8.2) g/dL Albumin (3.4-5.0) g/dL Globulin (2.6-4.0) g/dL Albumin/Globulin Ratio (0.9-1.6) Lipase (73-393) U/L Urine Color Urine Appearance Urine pH (5.0-8.0) Ur Specific [place] (1.001-1.035) Urine Protein (NEGATIVE) mg/dL Urine Glucose (UA) (NEGATIVE) mg/dL Urine Ketones (NEGATIVE) mg/dL Urine Occult Blood (NEGATIVE) Urine Nitrite (NEGATIVE) Urine Bilirubin (NEGATIVE) Urine Urobilinogen (<2.0) EU/dL Ur Leukocyte Esterase (NEGATIVE) 07/27/18 Range/Units 05:44 WBC (4.0-11.0) K/uL RBC (4.50-5.90) M/uL Hgb (13.0-17.0) g/dL Hct (38.0-50.0) % MCV (80.0-98.0) fL MCH (27.0-32.0) pg MCHC (31.0-37.0) g/dL RDW Std Deviation (28.0-62.0) fl RDW Coeff of Erika (11.0-15.0) % Plt Count (150-400) K/uL MPV (7.40-12.00) fL Neut % (Auto) (48.0-80.0) % Lymph % (Auto) (16.0-40.0) % Hand % (Auto) (0.0-15.0) % Eos % (Auto) (0.0-7.0) % Baso % (Auto) (0.0-1.5) % Neut # (Auto) (1.4-5.7) K/uL Lymph # (Auto) (0.6-2.4) K/uL Hand # (Auto) (0.0-0.8) K/uL Eos # (Auto) (0.0-0.7) K/uL Baso # (Auto) (0.0-0.1) K/uL Nucleated RBC % /100WBC Nucleated RBCs # K/uL ABG pH (7.35-7.45) ABG pCO2 (35-45) mmHG ABG pO2 (75-100) mmHG ABG HCO3 (22-26) mEq/L ABG Total CO2 ABG Base Excess (-2.0-2.0) Sodium 137 (136-148) mmol/L Potassium 3.4 L (3.5-5.1) mmol/L Chloride 106 (98-107) mmol/L Carbon Dioxide 24.2 (21.0-32.0) mmol/L BUN 15 (7.0-18.0) mg/dL Creatinine 0.5 L (0.8-1.3) mg/dL Est Cr Clr Drug Dosing 175.00 mL/min Estimated GFR (MDRD) > 60.0 ml/min Glucose 231 H (74-106) mg/dL POC Glucose (60-110) mg/dL Calcium 8.4 L (8.5-10.1) mg/dL Total Bilirubin (0.2-1.0) mg/dL AST (15-37) IU/L ALT (14-63) IU/L Alkaline Phosphatase (46-116) U/L Total Protein (6.4-8.2) g/dL Albumin (3.4-5.0) g/dL Globulin (2.6-4.0) g/dL Albumin/Globulin Ratio (0.9-1.6) Lipase (73-393) U/L Urine Color Urine Appearance Urine pH (5.0-8.0) Ur Specific [place] (1.001-1.035) Urine Protein (NEGATIVE) mg/dL Urine Glucose (UA) (NEGATIVE) mg/dL Urine Ketones (NEGATIVE) mg/dL Urine Occult Blood (NEGATIVE) Urine Nitrite (NEGATIVE) Urine Bilirubin (NEGATIVE) Urine Urobilinogen (<2.0) EU/dL Ur Leukocyte Esterase (NEGATIVE) Result Diagrams: 07/27/18 05:44 07/27/18 05:44 Problem List Initiated/Reviewed/Updated: Yes Orders Last 24hrs: Active Orders 24 hr Category Date Time Status Admission Status [Patient Status] [ADT] Stat ADT 07/27/18 00:01 Active Blood Glucose Check, Bedside [RC] ONETIME Care 07/26/18 21:49 Active Blood Glucose Check, Bedside [RC] Q6H Care 07/27/18 00:55 Active Blood Glucose Check, Bedside [RC] QIDACANDBED Care 07/27/18 06:43 Active Diabetes Education [RC] Click to Edit Care 07/27/18 06:44 Active Oxygen Therapy [RC] PRN Care 07/27/18 06:43 Active Up ad Romy [RC] ASDIRECTED Care 07/27/18 06:43 Active VTE/DVT Education [RC] PER UNIT ROUTINE Care 07/27/18 06:43 Active Vital Signs [RC] Q4H Care 07/27/18 06:43 Active [employer] Diet [DIET] Diet 07/27/18 Breakfast Active CULTURE BLOOD [BC] Stat Lab 07/26/18 22:45 Received CULTURE BLOOD [BC] Stat Lab 07/26/18 22:45 Received Acetaminophen [Tylenol] Med 07/27/18 06:43 Active 650 mg PO Q4H PRN Enoxaparin [Lovenox] Med 07/27/18 09:00 Active 40 mg SUBCUT DAILY Insulin Aspart [NovoLOG] Med 07/27/18 07:30 Active See Protocol SUBCUT TIDAC Metoclopramide [Reglan] Med 07/27/18 11:30 Active 5 mg PO QIDACANDBED Morphine Med 07/27/18 01:07 Active 2 mg IVPUSH Q2H PRN Sodium Chloride 0.9% [Normal Saline] 1,000 ml Med 07/27/18 06:45 Active IV ASDIRECTED Sodium Chloride 0.9% [Saline Flush] Med 07/26/18 21:49 Active 10 ml FLUSH ASDIRECTED PRN Sodium Chloride 0.9% [Saline Flush] Med 07/26/18 21:49 Active 2.5 ml FLUSH ASDIRECTED PRN Temazepam [Restoril] Med 07/27/18 06:43 Active 15 mg PO BEDTIME PRN oxyCODONE Med 07/27/18 06:43 Active 5 mg PO Q4H PRN Blood Culture x2 Reflex Set [OM.PC] Stat Oth 07/26/18 22:42 Ordered Glucose Management Sub Q Reflex [OM.PC] Click To Edit Oth 07/27/18 06:43 Ordered Saline Lock Insert [OM.PC] Stat Oth 07/26/18 21:49 Ordered Resuscitation Status Routine Resus Stat 07/27/18 06:43 Ordered Medication Orders Acetaminophen (Tylenol) 650 mg PO Q4H PRN PRN Reason: Pain (Mild 1-3)/fever Enoxaparin Sodium (Lovenox) 40 mg SUBCUT DAILY AUGUSTINE Last Admin: 07/27/18 08:02 Dose: Not Given Admin: 07/27/18 07:57 Dose: 40 mg Sodium Chloride (Normal Saline) 1,000 mls @ 75 mls/hr IV ASDIRECTED AUGUSTINE Last Admin: 07/27/18 07:15 Dose: 75 mls/hr Insulin Aspart (Novolog) 0 unit SUBCUT TIDAC [facility]; Protocol Last Admin: 07/27/18 06:38 Dose: 6 units Metoclopramide HCl (Reglan) 5 mg PO QIDACANDBED AUGUSTINE Morphine Sulfate (Morphine) 2 mg IVPUSH Q2H PRN PRN Reason: Pain Last Admin: 07/27/18 07:57 Dose: 2 mg Admin: 07/27/18 05:02 Dose: 2 mg Admin: 07/27/18 02:35 Dose: 2 mg Oxycodone HCl (Oxycodone) 5 mg PO Q4H PRN PRN Reason: Pain (moderate 4-6) Sodium Chloride (Saline Flush) 10 ml FLUSH ASDIRECTED PRN PRN Reason: Keep Vein Open Sodium Chloride (Saline Flush) 2.5 ml FLUSH ASDIRECTED PRN PRN Reason: Keep Vein Open Temazepam (Restoril) 15 mg PO BEDTIME PRN PRN Reason: Sleep Assessment/Plan Comment:: A: 1. DM type 1, uncontrolled 2. Hypokalemia 3. Normocytic anemia P: 1. DM type 1, uncontrolled. Glargine 20 U SQ at night. Continue ISS. 2. Hypokalemia, replaced with KCl 40 mEq. Recheck tomorrow. 3. Normocytic anemia. ordered iron studies, stool occult. Dispo: likely dc tomorrow. <Lloyd Gonzalez - Last Filed: 07/27/18 11:59> H&P History of Present Illness - General Admit Problem/Dx: Admission Diagnosis/Problem Admission Diagnosis/Problem Pyelonephritis I have seen and examined to patient independently of medical officer psychiatry, Balta Ng MD. I have discussed the case for care of this patient with him. I have reviewed and approve of the plan of care as outlined by medical officer psychiatry. Please see orders. Exam - Vital Signs Vital Signs: Last Vital Signs Temp 36.6 C 07/27/18 08:06 Pulse 86 07/27/18 08:06 Resp 18 07/27/18 08:06 BP 102/67 07/27/18 08:06 Pulse Ox 99 07/27/18 08:06 - Patient Data Lab Results Last 24 hrs: Laboratory Results - last 24 hr 07/26/18 07/26/18 07/26/18 Range/Units 22:23 22:23 23:07 WBC 6.21 (4.0-11.0) K/uL RBC 4.36 L (4.50-5.90) M/uL Hgb 11.6 L (13.0-17.0) g/dL Hct 37.0 L (38.0-50.0) % MCV 84.9 (80.0-98.0) fL MCH 26.6 L (27.0-32.0) pg MCHC 31.4 (31.0-37.0) g/dL RDW Std Deviation 41.0 (28.0-62.0) fl RDW Coeff of Erika 13 (11.0-15.0) % Plt Count 302 (150-400) K/uL MPV 10.10 (7.40-12.00) fL Neut % (Auto) 71.1 (48.0-80.0) % Lymph % (Auto) 24.2 (16.0-40.0) % Hand % (Auto) 3.1 (0.0-15.0) % Eos % (Auto) 1.1 (0.0-7.0) % Baso % (Auto) 0.5 (0.0-1.5) % Neut # (Auto) 4.4 (1.4-5.7) K/uL Lymph # (Auto) 1.5 (0.6-2.4) K/uL Hand # (Auto) 0.2 (0.0-0.8) K/uL Eos # (Auto) 0.1 (0.0-0.7) K/uL Baso # (Auto) 0.0 (0.0-0.1) K/uL Nucleated RBC % 0.0 /100WBC Nucleated RBCs # 0 K/uL ABG pH 7.610 H (7.35-7.45) ABG pCO2 19 L (35-45) mmHG ABG pO2 125 H (75-100) mmHG ABG HCO3 19 L (22-26) mEq/L ABG Total CO2 17.1 ABG Base Excess -0.7 (-2.0-2.0) Sodium 126 L (136-148) mmol/L Potassium 4.7 (3.5-5.1) mmol/L Chloride 92 L (98-107) mmol/L Carbon Dioxide 26.7 (21.0-32.0) mmol/L BUN 18 (7.0-18.0) mg/dL Creatinine 1.0 (0.8-1.3) mg/dL Est Cr Clr Drug Dosing 86.67 mL/min Estimated GFR (MDRD) > 60.0 ml/min Glucose 659 H* (74-106) mg/dL POC Glucose (60-110) mg/dL Calcium 9.1 (8.5-10.1) mg/dL Total Bilirubin 0.3 (0.2-1.0) mg/dL AST 12 L (15-37) IU/L ALT 12 L (14-63) IU/L Alkaline Phosphatase 92 (46-116) U/L Total Protein 8.2 (6.4-8.2) g/dL Albumin 2.9 L (3.4-5.0) g/dL Globulin 5.3 H (2.6-4.0) g/dL Albumin/Globulin Ratio 0.6 L (0.9-1.6) Lipase 225 (73-393) U/L Urine Color Urine Appearance Urine pH (5.0-8.0) Ur Specific [place] (1.001-1.035) Urine Protein (NEGATIVE) mg/dL Urine Glucose (UA) (NEGATIVE) mg/dL Urine Ketones (NEGATIVE) mg/dL Urine Occult Blood (NEGATIVE) Urine Nitrite (NEGATIVE) Urine Bilirubin (NEGATIVE) Urine Urobilinogen (<2.0) EU/dL Ur Leukocyte Esterase (NEGATIVE) 07/26/18 07/27/18 07/27/18 Range/Units 23:32 00:17 01:20 WBC (4.0-11.0) K/uL RBC (4.50-5.90) M/uL Hgb (13.0-17.0) g/dL Hct (38.0-50.0) % MCV (80.0-98.0) fL MCH (27.0-32.0) pg MCHC (31.0-37.0) g/dL RDW Std Deviation (28.0-62.0) fl RDW Coeff of Erika (11.0-15.0) % Plt Count (150-400) K/uL MPV (7.40-12.00) fL Neut % (Auto) (48.0-80.0) % Lymph % (Auto) (16.0-40.0) % Hand % (Auto) (0.0-15.0) % Eos % (Auto) (0.0-7.0) % Baso % (Auto) (0.0-1.5) % Neut # (Auto) (1.4-5.7) K/uL Lymph # (Auto) (0.6-2.4) K/uL Hand # (Auto) (0.0-0.8) K/uL Eos # (Auto) (0.0-0.7) K/uL Baso # (Auto) (0.0-0.1) K/uL Nucleated RBC % /100WBC Nucleated RBCs # K/uL ABG pH (7.35-7.45) ABG pCO2 (35-45) mmHG ABG pO2 (75-100) mmHG ABG HCO3 (22-26) mEq/L ABG Total CO2 ABG Base Excess (-2.0-2.0) Sodium (136-148) mmol/L Potassium (3.5-5.1) mmol/L Chloride (98-107) mmol/L Carbon Dioxide (21.0-32.0) mmol/L BUN (7.0-18.0) mg/dL Creatinine (0.8-1.3) mg/dL Est Cr Clr Drug Dosing mL/min Estimated GFR (MDRD) ml/min Glucose (74-106) mg/dL POC Glucose 453 H 373 H (60-110) mg/dL Calcium (8.5-10.1) mg/dL Total Bilirubin (0.2-1.0) mg/dL AST (15-37) IU/L ALT (14-63) IU/L Alkaline Phosphatase (46-116) U/L Total Protein (6.4-8.2) g/dL Albumin (3.4-5.0) g/dL Globulin (2.6-4.0) g/dL Albumin/Globulin Ratio (0.9-1.6) Lipase (73-393) U/L Urine Color YELLOW Urine Appearance HAZY Urine pH 7.0 (5.0-8.0) Ur Specific [place] 1.010 (1.001-1.035) Urine Protein NEGATIVE (NEGATIVE) mg/dL Urine Glucose (UA) >=1000 (NEGATIVE) mg/dL Urine Ketones 15 H (NEGATIVE) mg/dL Urine Occult Blood NEGATIVE (NEGATIVE) Urine Nitrite NEGATIVE (NEGATIVE) Urine Bilirubin NEGATIVE (NEGATIVE) Urine Urobilinogen 0.2 (<2.0) EU/dL Ur Leukocyte Esterase NEGATIVE (NEGATIVE) 07/27/18 07/27/18 07/27/18 Range/Units 01:41 05:14 05:44 WBC 6.10 (4.0-11.0) K/uL RBC 3.85 L (4.50-5.90) M/uL Hgb 10.2 L (13.0-17.0) g/dL Hct 31.5 L (38.0-50.0) % MCV 81.8 (80.0-98.0) fL MCH 26.5 L (27.0-32.0) pg MCHC 32.4 (31.0-37.0) g/dL RDW Std Deviation 39.5 (28.0-62.0) fl RDW Coeff of Erika 13 (11.0-15.0) % Plt Count 301 (150-400) K/uL MPV 9.70 (7.40-12.00) fL Neut % (Auto) 55.3 (48.0-80.0) % Lymph % (Auto) 37.4 (16.0-40.0) % Hand % (Auto) 4.9 (0.0-15.0) % Eos % (Auto) 2.1 (0.0-7.0) % Baso % (Auto) 0.3 (0.0-1.5) % Neut # (Auto) 3.4 (1.4-5.7) K/uL Lymph # (Auto) 2.3 (0.6-2.4) K/uL Hand # (Auto) 0.3 (0.0-0.8) K/uL Eos # (Auto) 0.1 (0.0-0.7) K/uL Baso # (Auto) 0.0 (0.0-0.1) K/uL Nucleated RBC % 0.0 /100WBC Nucleated RBCs # 0 K/uL ABG pH (7.35-7.45) ABG pCO2 (35-45) mmHG ABG pO2 (75-100) mmHG ABG HCO3 (22-26) mEq/L ABG Total CO2 ABG Base Excess (-2.0-2.0) Sodium (136-148) mmol/L Potassium (3.5-5.1) mmol/L Chloride (98-107) mmol/L Carbon Dioxide (21.0-32.0) mmol/L BUN (7.0-18.0) mg/dL Creatinine (0.8-1.3) mg/dL Est Cr Clr Drug Dosing mL/min Estimated GFR (MDRD) ml/min Glucose (74-106) mg/dL POC Glucose 304 H 221 H (60-110) mg/dL Calcium (8.5-10.1) mg/dL Total Bilirubin (0.2-1.0) mg/dL AST (15-37) IU/L ALT (14-63) IU/L Alkaline Phosphatase (46-116) U/L Total Protein (6.4-8.2) g/dL Albumin (3.4-5.0) g/dL Globulin (2.6-4.0) g/dL Albumin/Globulin Ratio (0.9-1.6) Lipase (73-393) U/L Urine Color Urine Appearance Urine pH (5.0-8.0) Ur Specific [place] (1.001-1.035) Urine Protein (NEGATIVE) mg/dL Urine Glucose (UA) (NEGATIVE) mg/dL Urine Ketones (NEGATIVE) mg/dL Urine Occult Blood (NEGATIVE) Urine Nitrite (NEGATIVE) Urine Bilirubin (NEGATIVE) Urine Urobilinogen (<2.0) EU/dL Ur Leukocyte Esterase (NEGATIVE) 07/27/18 Range/Units 05:44 WBC (4.0-11.0) K/uL RBC (4.50-5.90) M/uL Hgb (13.0-17.0) g/dL Hct (38.0-50.0) % MCV (80.0-98.0) fL MCH (27.0-32.0) pg MCHC (31.0-37.0) g/dL RDW Std Deviation (28.0-62.0) fl RDW Coeff of Erika (11.0-15.0) % Plt Count (150-400) K/uL MPV (7.40-12.00) fL Neut % (Auto) (48.0-80.0) % Lymph % (Auto) (16.0-40.0) % Hand % (Auto) (0.0-15.0) % Eos % (Auto) (0.0-7.0) % Baso % (Auto) (0.0-1.5) % Neut # (Auto) (1.4-5.7) K/uL Lymph # (Auto) (0.6-2.4) K/uL Hand # (Auto) (0.0-0.8) K/uL Eos # (Auto) (0.0-0.7) K/uL Baso # (Auto) (0.0-0.1) K/uL Nucleated RBC % /100WBC Nucleated RBCs # K/uL ABG pH (7.35-7.45) ABG pCO2 (35-45) mmHG ABG pO2 (75-100) mmHG ABG HCO3 (22-26) mEq/L ABG Total CO2 ABG Base Excess (-2.0-2.0) Sodium 137 (136-148) mmol/L Potassium 3.4 L (3.5-5.1) mmol/L Chloride 106 (98-107) mmol/L Carbon Dioxide 24.2 (21.0-32.0) mmol/L BUN 15 (7.0-18.0) mg/dL Creatinine 0.5 L (0.8-1.3) mg/dL Est Cr Clr Drug Dosing 175.00 mL/min Estimated GFR (MDRD) > 60.0 ml/min Glucose 231 H (74-106) mg/dL POC Glucose (60-110) mg/dL Calcium 8.4 L (8.5-10.1) mg/dL Total Bilirubin (0.2-1.0) mg/dL AST (15-37) IU/L ALT (14-63) IU/L Alkaline Phosphatase (46-116) U/L Total Protein (6.4-8.2) g/dL Albumin (3.4-5.0) g/dL Globulin (2.6-4.0) g/dL Albumin/Globulin Ratio (0.9-1.6) Lipase (73-393) U/L Urine Color Urine Appearance Urine pH (5.0-8.0) Ur Specific [place] (1.001-1.035) Urine Protein (NEGATIVE) mg/dL Urine Glucose (UA) (NEGATIVE) mg/dL Urine Ketones (NEGATIVE) mg/dL Urine Occult Blood (NEGATIVE) Urine Nitrite (NEGATIVE) Urine Bilirubin (NEGATIVE) Urine Urobilinogen (<2.0) EU/dL Ur Leukocyte Esterase (NEGATIVE) Result Diagrams: 07/27/18 05:44 07/27/18 05:44 Orders Last 24hrs: Active Orders 24 hr Category Date Time Status Admission Status [Patient Status] [ADT] Stat ADT 07/27/18 00:01 Active Blood Glucose Check, Bedside [RC] ONETIME Care 07/26/18 21:49 Active Blood Glucose Check, Bedside [RC] Q6H Care 07/27/18 00:55 Active Blood Glucose Check, Bedside [RC] QIDACANDBED Care 07/27/18 06:43 Active Blood Glucose Check, Bedside [RC] WITHMEALSANDBED Care 07/27/18 11:28 Active Diabetes Education [RC] Click to Edit Care 07/27/18 06:44 Active Oxygen Therapy [RC] PRN Care 07/27/18 06:43 Active Up ad Romy [RC] ASDIRECTED Care 07/27/18 06:43 Active VTE/DVT Education [RC] PER UNIT ROUTINE Care 07/27/18 06:43 Active Vital Signs [RC] Q4H Care 07/27/18 06:43 Active [employer] Diet [DIET] Diet 07/27/18 Breakfast Active CULTURE BLOOD [BC] Stat Lab 07/26/18 22:45 Received CULTURE BLOOD [BC] Stat Lab 07/26/18 22:45 Received Acetaminophen [Tylenol] Med 07/27/18 06:43 Active 650 mg PO Q4H PRN Enoxaparin [Lovenox] Med 07/27/18 09:00 Active 40 mg SUBCUT DAILY Insulin Aspart [NovoLOG] Med 07/27/18 07:30 Active See Protocol SUBCUT TIDAC Insulin Glarg,Human.Rec.Analog [LantUS Solostar] Med 07/27/18 21:00 Active 20 units SUBCUT BEDTIME Metoclopramide [Reglan] Med 07/27/18 11:30 Active 5 mg PO QIDACANDBED Morphine Med 07/27/18 01:07 Active 2 mg IVPUSH Q2H PRN Sodium Chloride 0.9% [Normal Saline] 1,000 ml Med 07/27/18 06:45 Active IV ASDIRECTED Sodium Chloride 0.9% [Saline Flush] Med 07/26/18 21:49 Active 10 ml FLUSH ASDIRECTED PRN Sodium Chloride 0.9% [Saline Flush] Med 07/26/18 21:49 Active 2.5 ml FLUSH ASDIRECTED PRN Temazepam [Restoril] Med 07/27/18 06:43 Active 15 mg PO BEDTIME PRN diphenhydrAMINE [Benadryl] Med 07/27/18 11:15 Active 25 mg PO Q6H PRN oxyCODONE Med 07/27/18 06:43 Active 5 mg PO Q4H PRN Blood Culture x2 Reflex Set [OM.PC] Stat Ot 07/26/18 22:42 Ordered Glucose Management Sub Q Reflex [OM.PC] Click To Edit Ot 07/27/18 06:43 Ordered Saline Lock Insert [OM.PC] Stat Ot 07/26/18 21:49 Ordered Resuscitation Status Routine Resus Stat 07/27/18 06:43 Ordered Medication Orders Acetaminophen (Tylenol) 650 mg PO Q4H PRN PRN Reason: Pain (Mild 1-3)/fever Diphenhydramine HCl (Benadryl) 25 mg PO Q6H PRN PRN Reason: Itching Enoxaparin Sodium (Lovenox) 40 mg SUBCUT DAILY [facility] Last Admin: 07/27/18 08:02 Dose: Not Given Admin: 07/27/18 07:57 Dose: 40 mg Sodium Chloride (Normal Saline) 1,000 mls @ 75 mls/hr IV ASDIRECTED [facility]UG[facility]INE Last Admin: 07/27/18 07:15 Dose: 75 mls/hr Insulin Aspart (Novolog) 0 unit SUBCUT TIDAC [facility]INE; Protocol Last Admin: 07/27/18 06:38 Dose: 6 units Insulin Glargine (Lantus Solostar) 20 units SUBCUT BEDTIME [facility] Metoclopramide HCl (Reglan) 5 mg PO QIDACANDBED [facility]UGUSTINE Last Admin: 07/27/18 10:29 Dose: 5 mg Morphine Sulfate (Morphine) 2 mg IVPUSH Q2H PRN PRN Reason: Pain Last Admin: 07/27/18 10:25 Dose: 2 mg Admin: 07/27/18 07:57 Dose: 2 mg Admin: 07/27/18 05:02 Dose: 2 mg Admin: 07/27/18 02:35 Dose: 2 mg Oxycodone HCl (Oxycodone) 5 mg PO Q4H PRN PRN Reason: Pain (moderate 4-6) Sodium Chloride (Saline Flush) 10 ml FLUSH ASDIRECTED PRN PRN Reason: Keep Vein Open Sodium Chloride (Saline Flush) 2.5 ml FLUSH ASDIRECTED PRN PRN Reason: Keep Vein Open Temazepam (Restoril) 15 mg PO BEDTIME PRN PRN Reason: Sleep
[2018-07-27] MEDS: Metoclopramide 5 MG Tab PO SCH ×3 (10:29→21:36)
[2018-07-27] MEDS: diphenhydrAMINE 25 MG Cap PO PRN (12:02)
[2018-07-27] MEDS ORDERED: Insulin Glargine,Human Rec. Analog 100 Units/ML 3 ML Pen SUBCUT SCH (21:00)
[2018-07-28] MEDS: Morphine 2 MG/ML Syringe IVPUSH PRN ×3 (00:13→04:30)
[2018-07-28] MEDS: diphenhydrAMINE 25 MG Cap PO PRN (04:41)
[2018-07-28 06:09] LABS: CHLORIDE,CL 98 mmol/L (98-107); SODIUM,NA 130 mmol/L (136-148)
[2018-07-28] MEDS: Insulin Aspart 100 Units/ML 3 ML Pen SUBCUT SCH (07:53)
[2018-07-28 07:56] VITALS: BP 131/87
--- NOTE | 2018-07-28 08:30 | PCM.DCSUM1 ---
<Balta Olsen - Last Filed: 07/28/18 09:50> Discharge Summary - Hospital Course Free Text/Narrative:: 22 y/o male with history of DM type 1 and neurogenic bladder. Admitted for nausea, vomiting and abdominal pain. Found to be hyperglycemic with BGL 600's. His hyperglycemia was controlled with Novolog and Glargine. His abdominal pain improved and nausea, vomiting had resolved. He was also found to have iron deficiency anemia with Hg 11. He was started on Iron polysaccharide daily. Stool occult was pending at time of discharge. He will need to follow-up outpatient for glycemic management and iron deficiency anemia. - Discharge Data Discharge Date: 07/28/18 Discharge Disposition: Home, Self-Care 01 Condition: Good - Patient Instructions Diet: Regular Diet as Tolerated Activity: As Tolerated Notify Provider of: Fever, Increased Pain, Swelling and Redness, Nausea and/or Vomiting - Discharge Plan *PRESCRIPTION DRUG MONITORING PROGRAM REVIEWED*: Not Applicable *COPY OF PRESCRIPTION DRUG MONITORING REPORT IN PATIENT HANY: Not Applicable Prescriptions/Med Rec: Iron Polysaccharides Complex [Ferrex 150] 150 mg PO DAILY #30 cap Metoclopramide [Reglan] 5 mg PO QIDACANDBED #90 tablet Home Medications: Home Meds Insulin Glargine,Hum.Rec.Anlog [Lantus Solostar] 40 unit SQ BEDTIME #3 pen 11/26 [Rx] Insulin Aspart [NovoLOG] 5 units SUBCUT TIDAC 07/23/18 [History] Iron Polysaccharides Complex [Ferrex 150] 150 mg PO DAILY #30 cap 07/28/18 [Rx] Metoclopramide [Reglan] 5 mg PO QIDACANDBED #90 tablet 07/28/18 [Rx] Patient Handouts: Metoclopramide tablets, Pyelonephritis, Adult, [id number], Polysaccharide-Iron Complex tablets or capsules Referrals: Lynsey Palm NP [Nurse Practitioner] - 08/07/18 10:30 am - Discharge Summary/Plan Comment DC Time >30 min.: No - Patient Data Vitals - Most Recent: Last Vital Signs Temp 36.6 C 07/28/18 07:56 Pulse 84 07/28/18 07:56 Resp 18 07/28/18 07:56 BP 131/87 07/28/18 07:56 Pulse Ox 99 07/28/18 07:56 Weight - Most Recent: 52.5 kg I&O - Last 24 hours: Intake & Output 07/27/18 07/28/18 07/28/18 22:59 06:59 14:59 Intake Total 1400 1990 240 Output Total 900 800 Balance 500 1190 240 Lab Results - Last 24 hrs: Laboratory Results - last 24 hr 07/26/18 07/27/18 07/27/18 Range/Units 23:32 00:17 05:44 WBC (4.0-11.0) K/uL RBC (4.50-5.90) M/uL Hgb (13.0-17.0) g/dL Hct (38.0-50.0) % MCV (80.0-98.0) fL MCH (27.0-32.0) pg MCHC (31.0-37.0) g/dL RDW Std Deviation (28.0-62.0) fl RDW Coeff of Erika (11.0-15.0) % Plt Count (150-400) K/uL MPV (7.40-12.00) fL Nucleated RBC % /100WBC Nucleated RBCs # K/uL Sodium (136-148) mmol/L Potassium (3.5-5.1) mmol/L Chloride (98-107) mmol/L Carbon Dioxide (21.0-32.0) mmol/L BUN (7.0-18.0) mg/dL Creatinine (0.8-1.3) mg/dL Est Cr Clr Drug Dosing mL/min Estimated GFR (MDRD) ml/min Glucose (74-106) mg/dL POC Glucose 453 H 373 H (60-110) mg/dL Calcium (8.5-10.1) mg/dL Iron 36 L (50-175) ug/dL TIBC 198 L (250-450) ug/dL % Saturation 18.18 L (20-55) % Ferritin 28 (26-388) ng/mL 07/27/18 07/27/18 07/27/18 Range/Units 12:36 16:46 21:21 WBC (4.0-11.0) K/uL RBC (4.50-5.90) M/uL Hgb (13.0-17.0) g/dL Hct (38.0-50.0) % MCV (80.0-98.0) fL MCH (27.0-32.0) pg MCHC (31.0-37.0) g/dL RDW Std Deviation (28.0-62.0) fl RDW Coeff of Erika (11.0-15.0) % Plt Count (150-400) K/uL MPV (7.40-12.00) fL Nucleated RBC % /100WBC Nucleated RBCs # K/uL Sodium (136-148) mmol/L Potassium (3.5-5.1) mmol/L Chloride (98-107) mmol/L Carbon Dioxide (21.0-32.0) mmol/L BUN (7.0-18.0) mg/dL Creatinine (0.8-1.3) mg/dL Est Cr Clr Drug Dosing mL/min Estimated GFR (MDRD) ml/min Glucose (74-106) mg/dL POC Glucose 256 H 264 H 208 H (60-110) mg/dL Calcium (8.5-10.1) mg/dL Iron (50-175) ug/dL TIBC (250-450) ug/dL % Saturation (20-55) % Ferritin (26-388) ng/mL 07/28/18 07/28/18 07/28/18 Range/Units 05:10 05:10 06:11 WBC 4.96 (4.0-11.0) K/uL RBC 4.20 L (4.50-5.90) M/uL Hgb 11.0 L (13.0-17.0) g/dL Hct 34.5 L (38.0-50.0) % MCV 82.1 (80.0-98.0) fL MCH 26.2 L (27.0-32.0) pg MCHC 31.9 (31.0-37.0) g/dL RDW Std Deviation 40.0 (28.0-62.0) fl RDW Coeff of Erika 13 (11.0-15.0) % Plt Count 300 (150-400) K/uL MPV 9.60 (7.40-12.00) fL Nucleated RBC % 0.0 /100WBC Nucleated RBCs # 0 K/uL Sodium 130 L (136-148) mmol/L Potassium 3.9 (3.5-5.1) mmol/L Chloride 98 (98-107) mmol/L Carbon Dioxide 24.7 (21.0-32.0) mmol/L BUN 17 (7.0-18.0) mg/dL Creatinine 0.6 L (0.8-1.3) mg/dL Est Cr Clr Drug Dosing 145.83 mL/min Estimated GFR (MDRD) > 60.0 ml/min Glucose 432 H (74-106) mg/dL POC Glucose 364 H (60-110) mg/dL Calcium 8.9 (8.5-10.1) mg/dL Iron (50-175) ug/dL TIBC (250-450) ug/dL % Saturation (20-55) % Ferritin (26-388) ng/mL YADY Results - Last 24 hrs: Microbiology 07/26/18 22:45 Aerobic Blood Culture - Preliminary Blood - Venous - Lab Draw NO GROWTH AFTER 1 DAY Anaerobic Blood Culture - Preliminary NO GROWTH AFTER 1 DAY 07/26/18 22:45 Aerobic Blood Culture - Preliminary Blood - Venous NO GROWTH AFTER 1 DAY Anaerobic Blood Culture - Preliminary NO GROWTH AFTER 1 DAY Med Orders - Current: Current Medications Acetaminophen (Tylenol) 650 mg PO Q4H PRN PRN Reason: Pain (Mild 1-3)/fever Diphenhydramine HCl (Benadryl) 25 mg PO Q6H PRN PRN Reason: Itching Last Admin: 07/28/18 04:41 Dose: 25 mg Enoxaparin Sodium (Lovenox) 40 mg SUBCUT DAILY [facility] Last Admin: 07/27/18 08:02 Dose: Not Given Insulin Aspart (Novolog) 0 unit SUBCUT TIDAC [facility]; Protocol Last Admin: 07/28/18 07:53 Dose: 15 units Insulin Glargine (Lantus Solostar) 20 units SUBCUT BEDTIME [facility] Last Admin: 07/27/18 21:55 Dose: 20 units Metoclopramide HCl (Reglan) 5 mg PO QIDACANDBED [facility] Last Admin: 07/27/18 21:36 Dose: Not Given Polysaccharide Iron Complex (Ferrex 150) 150 mg PO DAILY [facility] Sodium Chloride (Saline Flush) 10 ml FLUSH ASDIRECTED PRN PRN Reason: Keep Vein Open Sodium Chloride (Saline Flush) 2.5 ml FLUSH ASDIRECTED PRN PRN Reason: Keep Vein Open Temazepam (Restoril) 15 mg PO BEDTIME PRN PRN Reason: Sleep Discontinued Medications Diphenhydramine HCl (Benadryl) 50 mg IVPUSH ONETIME ONE Stop: 07/26/18 23:23 Last Admin: 07/26/18 23:28 Dose: 50 mg Sodium Chloride (Normal Saline) 1,000 mls @ 999 mls/hr IV STAT ONE Stop: 07/26/18 22:50 Last Admin: 07/26/18 22:32 Dose: 999 mls/hr Sodium Chloride (Normal Saline) 1,000 mls @ 999 mls/hr IV STAT ONE Stop: 07/26/18 23:15 Last Admin: 07/26/18 23:08 Dose: 999 mls/hr Sodium Chloride (Normal Saline) 1,000 mls @ 125 mls/hr IV STAT [facility] Last Admin: 07/27/18 00:28 Dose: 125 mls/hr Meropenem 1 gm/ Sodium (Chloride) 100 mls @ 200 mls/hr IV ONETIME ONE Stop: 07/27/18 00:28 Last Admin: 07/27/18 00:36 Dose: 200 mls/hr Sodium Chloride (Normal Saline) 1,000 mls @ 150 mls/hr IV ASDIRECTED [facility] Sodium Chloride (Normal Saline) 1,000 mls @ 75 mls/hr IV ASDIRECTED [facility] Last Admin: 07/27/18 20:23 Dose: 75 mls/hr Insulin Human Regular (Novolin R) 10 unit IVPUSH ONETIME ONE; Protocol Stop: 07/26/18 22:15 Last Admin: 07/26/18 22:35 Dose: 10 units Insulin Human Regular (Novolin R) 10 unit SUBCUT NOW STA; Protocol Stop: 07/26/18 22:26 Last Admin: 07/26/18 22:37 Dose: 10 units Insulin Human Regular (Novolin R) 10 unit IVPUSH ONETIME ONE; Protocol Stop: 07/26/18 23:09 Last Admin: 07/26/18 23:15 Dose: 10 units Metoclopramide HCl (Reglan) 10 mg IV ONETIME ONE Stop: 07/26/18 22:16 Last Admin: 07/26/18 22:33 Dose: 10 mg Morphine Sulfate (Morphine) 2 mg IVPUSH ONETIME ONE Stop: 07/26/18 22:46 Last Admin: 07/26/18 23:07 Dose: 2 mg Morphine Sulfate (Morphine) 2 mg IVPUSH ONETIME ONE Stop: 07/27/18 00:28 Last Admin: 07/27/18 00:30 Dose: 2 mg Morphine Sulfate (Morphine) 2 mg IVPUSH Q2H PRN PRN Reason: Pain Last Admin: 07/28/18 04:30 Dose: 2 mg Morphine Sulfate (Morphine) 2 mg IVPUSH Q2H PRN PRN Reason: Pain (severe 7-10) Stop: 07/28/18 06:44 Ondansetron HCl (Zofran) 4 mg IVPUSH ONETIME ONE Stop: 07/26/18 21:52 Last Admin: 07/26/18 22:34 Dose: 4 mg Oxycodone HCl (Oxycodone) 5 mg PO Q4H PRN PRN Reason: Pain (moderate 4-6) <Lloyd Gonzalez - Last Filed: 07/28/18 12:40> Discharge Summary - Hospital Course HPI Initial Comments: I have seen and examined to patient independently of medical records auditor, Balta Ng MD. I have discussed the case for care of this patient with him. I have reviewed and approve of the plan of care as outlined by medical records auditor. Please see orders. - Patient Data Vitals - Most Recent: Last Vital Signs Temp 36.6 C 07/28/18 07:56 Pulse 84 07/28/18 07:56 Resp 18 07/28/18 07:56 BP 131/87 07/28/18 07:56 Pulse Ox 99 07/28/18 07:56 I&O - Last 24 hours: Intake & Output 07/27/18 07/28/18 07/28/18 22:59 06:59 14:59 Intake Total 1400 1990 240 Output Total 900 800 Balance 500 1190 240 Lab Results - Last 24 hrs: Laboratory Results - last 24 hr 07/27/18 07/27/18 07/27/18 Range/Units 05:44 12:36 16:46 WBC (4.0-11.0) K/uL RBC (4.50-5.90) M/uL Hgb (13.0-17.0) g/dL Hct (38.0-50.0) % MCV (80.0-98.0) fL MCH (27.0-32.0) pg MCHC (31.0-37.0) g/dL RDW Std Deviation (28.0-62.0) fl RDW Coeff of Erika (11.0-15.0) % Plt Count (150-400) K/uL MPV (7.40-12.00) fL Nucleated RBC % /100WBC Nucleated RBCs # K/uL Sodium (136-148) mmol/L Potassium (3.5-5.1) mmol/L Chloride (98-107) mmol/L Carbon Dioxide (21.0-32.0) mmol/L BUN (7.0-18.0) mg/dL Creatinine (0.8-1.3) mg/dL Est Cr Clr Drug Dosing mL/min Estimated GFR (MDRD) ml/min Glucose (74-106) mg/dL POC Glucose 256 H 264 H (60-110) mg/dL Calcium (8.5-10.1) mg/dL Iron 36 L (50-175) ug/dL TIBC 198 L (250-450) ug/dL % Saturation 18.18 L (20-55) % Ferritin 28 (26-388) ng/mL 07/27/18 07/28/18 07/28/18 Range/Units 21:21 05:10 05:10 WBC 4.96 (4.0-11.0) K/uL RBC 4.20 L (4.50-5.90) M/uL Hgb 11.0 L (13.0-17.0) g/dL Hct 34.5 L (38.0-50.0) % MCV 82.1 (80.0-98.0) fL MCH 26.2 L (27.0-32.0) pg MCHC 31.9 (31.0-37.0) g/dL RDW Std Deviation 40.0 (28.0-62.0) fl RDW Coeff of Erika 13 (11.0-15.0) % Plt Count 300 (150-400) K/uL MPV 9.60 (7.40-12.00) fL Nucleated RBC % 0.0 /100WBC Nucleated RBCs # 0 K/uL Sodium 130 L (136-148) mmol/L Potassium 3.9 (3.5-5.1) mmol/L Chloride 98 (98-107) mmol/L Carbon Dioxide 24.7 (21.0-32.0) mmol/L BUN 17 (7.0-18.0) mg/dL Creatinine 0.6 L (0.8-1.3) mg/dL Est Cr Clr Drug Dosing 145.83 mL/min Estimated GFR (MDRD) > 60.0 ml/min Glucose 432 H (74-106) mg/dL POC Glucose 208 H (60-110) mg/dL Calcium 8.9 (8.5-10.1) mg/dL Iron (50-175) ug/dL TIBC (250-450) ug/dL % Saturation (20-55) % Ferritin (26-388) ng/mL 07/28/18 Range/Units 06:11 WBC (4.0-11.0) K/uL RBC (4.50-5.90) M/uL Hgb (13.0-17.0) g/dL Hct (38.0-50.0) % MCV (80.0-98.0) fL MCH (27.0-32.0) pg MCHC (31.0-37.0) g/dL RDW Std Deviation (28.0-62.0) fl RDW Coeff of Erika (11.0-15.0) % Plt Count (150-400) K/uL MPV (7.40-12.00) fL Nucleated RBC % /100WBC Nucleated RBCs # K/uL Sodium (136-148) mmol/L Potassium (3.5-5.1) mmol/L Chloride (98-107) mmol/L Carbon Dioxide (21.0-32.0) mmol/L BUN (7.0-18.0) mg/dL Creatinine (0.8-1.3) mg/dL Est Cr Clr Drug Dosing mL/min Estimated GFR (MDRD) ml/min Glucose (74-106) mg/dL POC Glucose 364 H (60-110) mg/dL Calcium (8.5-10.1) mg/dL Iron (50-175) ug/dL TIBC (250-450) ug/dL % Saturation (20-55) % Ferritin (26-388) ng/mL YADY Results - Last 24 hrs: Microbiology 07/26/18 22:45 Aerobic Blood Culture - Preliminary Blood - Venous - Lab Draw NO GROWTH AFTER 1 DAY Anaerobic Blood Culture - Preliminary NO GROWTH AFTER 1 DAY 07/26/18 22:45 Aerobic Blood Culture - Preliminary Blood - Venous NO GROWTH AFTER 1 DAY Anaerobic Blood Culture - Preliminary NO GROWTH AFTER 1 DAY Med Orders - Current: Current Medications Discontinued Medications Acetaminophen (Tylenol) 650 mg PO Q4H PRN PRN Reason: Pain (Mild 1-3)/fever Diphenhydramine HCl (Benadryl) 50 mg IVPUSH ONETIME ONE Stop: 07/26/18 23:23 Last Admin: 07/26/18 23:28 Dose: 50 mg Diphenhydramine HCl (Benadryl) 25 mg PO Q6H PRN PRN Reason: Itching Last Admin: 07/28/18 04:41 Dose: 25 mg Enoxaparin Sodium (Lovenox) 40 mg SUBCUT DAILY [facility] Last Admin: 07/28/18 08:36 Dose: 40 mg Sodium Chloride (Normal Saline) 1,000 mls @ 999 mls/hr IV STAT ONE Stop: 07/26/18 22:50 Last Admin: 07/26/18 22:32 Dose: 999 mls/hr Sodium Chloride (Normal Saline) 1,000 mls @ 999 mls/hr IV STAT ONE Stop: 07/26/18 23:15 Last Admin: 07/26/18 23:08 Dose: 999 mls/hr Sodium Chloride (Normal Saline) 1,000 mls @ 125 mls/hr IV STAT [facility] Last Admin: 07/27/18 00:28 Dose: 125 mls/hr Meropenem 1 gm/ Sodium (Chloride) 100 mls @ 200 mls/hr IV ONETIME ONE Stop: 07/27/18 00:28 Last Admin: 07/27/18 00:36 Dose: 200 mls/hr Sodium Chloride (Normal Saline) 1,000 mls @ 150 mls/hr IV ASDIRECTED [facility] Sodium Chloride (Normal Saline) 1,000 mls @ 75 mls/hr IV ASDIRECTED [facility] Last Admin: 07/27/18 20:23 Dose: 75 mls/hr Insulin Aspart (Novolog) 0 unit SUBCUT TIDAC [facility]; Protocol Last Admin: 07/28/18 07:53 Dose: 15 units Insulin Glargine (Lantus Solostar) 20 units SUBCUT BEDTIME [facility] Last Admin: 07/27/18 21:55 Dose: 20 units Insulin Human Regular (Novolin R) 10 unit IVPUSH ONETIME ONE; Protocol Stop: 07/26/18 22:15 Last Admin: 07/26/18 22:35 Dose: 10 units Insulin Human Regular (Novolin R) 10 unit SUBCUT NOW STA; Protocol Stop: 07/26/18 22:26 Last Admin: 07/26/18 22:37 Dose: 10 units Insulin Human Regular (Novolin R) 10 unit IVPUSH ONETIME ONE; Protocol Stop: 07/26/18 23:09 Last Admin: 07/26/18 23:15 Dose: 10 units Metoclopramide HCl (Reglan) 10 mg IV ONETIME ONE Stop: 07/26/18 22:16 Last Admin: 07/26/18 22:33 Dose: 10 mg Metoclopramide HCl (Reglan) 5 mg PO QIDACANDBED [facility] Last Admin: 07/28/18 08:36 Dose: 5 mg Morphine Sulfate (Morphine) 2 mg IVPUSH ONETIME ONE Stop: 07/26/18 22:46 Last Admin: 07/26/18 23:07 Dose: 2 mg Morphine Sulfate (Morphine) 2 mg IVPUSH ONETIME ONE Stop: 07/27/18 00:28 Last Admin: 07/27/18 00:30 Dose: 2 mg Morphine Sulfate (Morphine) 2 mg IVPUSH Q2H PRN PRN Reason: Pain Last Admin: 07/28/18 04:30 Dose: 2 mg Morphine Sulfate (Morphine) 2 mg IVPUSH Q2H PRN PRN Reason: Pain (severe 7-10) Stop: 07/28/18 06:44 Ondansetron HCl (Zofran) 4 mg IVPUSH ONETIME ONE Stop: 07/26/18 21:52 Last Admin: 07/26/18 22:34 Dose: 4 mg Oxycodone HCl (Oxycodone) 5 mg PO Q4H PRN PRN Reason: Pain (moderate 4-6) Polysaccharide Iron Complex (Ferrex 150) 150 mg PO DAILY [facility] Last Admin: 07/28/18 08:36 Dose: 150 mg Sodium Chloride (Saline Flush) 10 ml FLUSH ASDIRECTED PRN PRN Reason: Keep Vein Open Sodium Chloride (Saline Flush) 2.5 ml FLUSH ASDIRECTED PRN PRN Reason: Keep Vein Open Temazepam (Restoril) 15 mg PO BEDTIME PRN PRN Reason: Sleep
[2018-07-28] MEDS: Enoxaparin 40 MG/0.4 ML Syringe SUBCUT SCH (08:36)
[2018-07-28] MEDS: Metoclopramide 5 MG Tab PO SCH (08:36)
[2018-07-28] MEDS ORDERED: Iron Polysaccharides Complex 150 MG Cap PO SCH (09:00)
== END 2018-07-28 11:25 | disposition home or self-care (01) ==
LOC: MW.ED 21:46 → MW.MS 07-27 00:01
PROVIDERS: ADMIT Internal Medicine; ATTEND Internal Medicine
DX: N12 Tubulo-interstitial nephritis, not specified as acute or chronic (principal); E10.8 Type 1 diabetes mellitus with unspecified complications; E87.6 Hypokalemia; D64.9 Anemia, unspecified; R11.2 Nausea with vomiting, unspecified; F17.210 Nicotine dependence, cigarettes, uncomplicated; Z79.4 Long term (current) use of insulin
CPT/HCPCS: 36415; 36600; 71045; 80048; 80053; 81003; 82728; 82803; 82962; 83550; 83690; 85025; 85027; 87040; 96361; 96372; 96374; 96375; 96376; 99285; A9270; G0378; J1200; J1650; J1815; J2185; J2270; J2405; J2765; J7030; J7040

== ENCOUNTER 2018-07-31 20:00 | Emergency (ER) | payer MEDICAID | END 2018-07-31 20:44 | disposition left against medical advice (07) | LOC: MW.ED 20:00 | DX: Z53.21 Procedure and treatment not carried out due to patient leaving prior to being seen by health care provider (principal) ==

== ENCOUNTER 2018-08-26 23:28 | Emergency (ER) | payer MEDICAID ==
--- NOTE | 2018-08-26 23:41 | EDM.PDOC ---
ED HPI GENERAL MEDICAL PROBLEM - General Stated Complaint: PT HAS BACK AND STOMACH PAIN Time Seen by Provider: 08/26/18 23:36 - History of Present Illness INITIAL COMMENTS - FREE TEXT/NARRATIVE: HISTORY AND PHYSICAL: History of present illness: Patient's 22-year-old male history of insulin dependent diabetes medical noncompliance and chronic back pain who presents with a concern of back pain and elevated blood sugar he was seen and treated in the recent past for pyelonephritis. He denies trauma denies numbness weakness and incontinence or retention bowel or bladder Review of systems: As per history of present illness and below otherwise all systems reviewed and negative. Past medical history: As per history of present illness and as reviewed below otherwise noncontributory. Surgical history: As per history of present illness and as reviewed below otherwise noncontributory. Social history: No reported history of drug or alcohol abuse. Family history: As per history of present illness and as reviewed below otherwise noncontributory. Physical exam: HEENT: Atraumatic, normocephalic, pupils reactive, negative for conjunctival pallor or scleral icterus, mucous membranes dry, throat clear, neck supple, nontender, trachea midline. Lungs: Clear to auscultation, breath sounds equal bilaterally, chest nontender. Heart: S1S2, regular, negative for clicks, rubs, or JVD. Abdomen: Soft, nondistended, nontender. Negative for masses or hepatosplenomegaly. Negative for costovertebral tenderness. Pelvis: Stable nontender. Genitourinary: Deferred. Rectal: Deferred. Extremities: Atraumatic, negative for cords or calf pain. Neurovascular unremarkable. Neuro: Awake, alert, oriented. Cranial nerves II through XII unremarkable. Cerebellum unremarkable. Motor and sensory unremarkable throughout. Exam nonfocal. Back: No localized tenderness no vertebral body or point tenderness motor and sensory unremarkable deep tendon reflexes normal Diagnostics: CBC CMP UA ABG urine drug screen Therapeutics: Saline 2 L bolus Impression: #1 hyperglycemia rule out DKA #2 back pain #3 medical noncompliance Definitive disposition and diagnosis as appropriate pending reevaluation and review of above. - Related Data Allergies Allergy/AdvReac Type Severity Reaction Status Date / Time No Known Allergies Allergy Verified 08/26/18 23:59 Home Meds: Home Meds Insulin Aspart [NovoLOG] 5 units SUBCUT TIDAC 07/23/18 [History] Insulin Glargine,Hum.Rec.Anlog [Lantus Solostar] 30 unit SQ BEDTIME 08/27/18 [ History] Past Medical History - Past Health History Medical/Surgical History: Denies Medical/Surgical History HEENT History: Reports: Other (See Below) Other HEENT History: ear ache Cardiovascular History: Reports: None Respiratory History: Reports: None Gastrointestinal History: Reports: Irritable Bowel Syndrome Other Gastrointestinal History: gastropharesis Musculoskeletal History: Reports: Fracture Other Musculoskeletal History: Elbow long time ago Neurological History: Reports: None Psychiatric History: Reports: Depression Endocrine/Metabolic History: Reports: Diabetes, Type I Hematologic History: Reports: None Oncologic (Cancer) History: Reports: None - Infectious Disease History Infectious Disease History: Reports: Influenza - Past Surgical History Endocrine Surgical History: Reports: None Social & Family History - Family History Family Medical History: Noncontributory OBGYN: Reports: Endocrine/Metabolic: Reports: Diabetes, Type I, Diabetes, type II - Caffeine Use Caffeine Use: Reports: Coffee, Tea - Living Situation & Occupation Living situation: Reports: Single, with Family Occupation: Unemployed ED ROS GENERAL - Review of Systems Review Of Systems: ROS reveals no pertinent complaints other than HPI. ED EXAM, GENERAL - Physical Exam Exam: See Below (See dictation) Course - Vital Signs Last Recorded V/S: Last Vital Signs Temp 35.9 C 08/27/18 00:39 Pulse 101 H 08/27/18 02:31 Resp 18 08/27/18 02:31 BP 121/81 08/27/18 02:31 Pulse Ox 99 08/27/18 02:31 - Orders/Labs/Meds Orders: Active Orders 24 hr Category Date Time Status CULTURE URINE [RM] Stat Lab 08/27/18 00:47 Received Sodium Chloride 0.9% [Normal Saline] 1,000 ml Med 08/26/18 23:45 Active IV ASDIRECTED Sodium Chloride 0.9% [Normal Saline] 1,000 ml Med 08/26/18 23:45 Active IV ASDIRECTED Medication Orders Sodium Chloride (Normal Saline) 1,000 mls @ 999 mls/hr IV ASDIRECTED AUGUSTINE Last Admin: 08/26/18 23:49 Dose: 999 mls/hr Sodium Chloride (Normal Saline) 1,000 mls @ 999 mls/hr IV ASDIRECTED AUGUSTINE Last Admin: 08/27/18 00:38 Dose: 999 mls/hr Labs: Laboratory Tests 08/26/18 08/26/18 08/27/18 Range/Units 23:48 23:48 00:05 WBC 5.27 (4.0-11.0) K/uL RBC 4.93 (4.50-5.90) M/uL Hgb 12.9 L (13.0-17.0) g/dL Hct 40.7 (38.0-50.0) % MCV 82.6 (80.0-98.0) fL MCH 26.2 L (27.0-32.0) pg MCHC 31.7 (31.0-37.0) g/dL RDW Std Deviation 41.0 (28.0-62.0) fl RDW Coeff of Erika 14 (11.0-15.0) % Plt Count 246 (150-400) K/uL MPV 10.20 (7.40-12.00) fL Neut % (Auto) 62.4 (48.0-80.0) % Lymph % (Auto) 31.3 (16.0-40.0) % [place] % (Auto) 5.5 (0.0-15.0) % Eos % (Auto) 0.6 (0.0-7.0) % Baso % (Auto) 0.2 (0.0-1.5) % Neut # (Auto) 3.3 (1.4-5.7) K/uL Lymph # (Auto) 1.7 (0.6-2.4) K/uL [place] # (Auto) 0.3 (0.0-0.8) K/uL Eos # (Auto) 0.0 (0.0-0.7) K/uL Baso # (Auto) 0.0 (0.0-0.1) K/uL Nucleated RBC % 0.0 /100WBC Nucleated RBCs # 0 K/uL ABG pH 7.406 (7.35-7.45) ABG pCO2 33 L (35-45) mmHG ABG pO2 98 (75-100) mmHG ABG HCO3 21 L (22-26) mEq/L ABG Total CO2 19.2 ABG Base Excess -3.1 L (-2.0-2.0) Sodium 130 L (136-148) mmol/L Potassium 4.5 (3.5-5.1) mmol/L Chloride 94 L (98-107) mmol/L Carbon Dioxide 23.5 (21.0-32.0) mmol/L BUN 21 H (7.0-18.0) mg/dL Creatinine 0.9 (0.8-1.3) mg/dL Est Cr Clr Drug Dosing 95.93 mL/min Estimated GFR (MDRD) > 60.0 ml/min Glucose 588 H* (74-106) mg/dL Calcium 9.9 (8.5-10.1) mg/dL Total Bilirubin 0.4 (0.2-1.0) mg/dL AST 12 L (15-37) IU/L ALT 13 L (14-63) IU/L Alkaline Phosphatase 119 H (46-116) U/L Total Protein 9.4 H (6.4-8.2) g/dL Albumin 3.2 L (3.4-5.0) g/dL Globulin 6.2 H (2.6-4.0) g/dL Albumin/Globulin Ratio 0.5 L (0.9-1.6) Urine Color Urine Appearance Urine pH (5.0-8.0) Ur Specific [place] (1.001-1.035) Urine Protein (NEGATIVE) mg/dL Urine Glucose (UA) (NEGATIVE) mg/dL Urine Ketones (NEGATIVE) mg/dL Urine Occult Blood (NEGATIVE) Urine Nitrite (NEGATIVE) Urine Bilirubin (NEGATIVE) Urine Urobilinogen (<2.0) EU/dL Ur Leukocyte Esterase (NEGATIVE) Urine RBC (0-2/HPF) Urine WBC (0-5/HPF) Ur Epithelial Cells (NONE-FEW) Urine Bacteria (NEGATIVE) Urine Mucus (NONE-MOD) Urine Opiates Screen (NEGATIVE) Ur Oxycodone Screen (NEGATIVE) Urine Methadone Screen (NEGATIVE) Ur Barbiturates Screen (NEGATIVE) Ur Phencyclidine Scrn (NEGATIVE) Ur Amphetamine Screen (NEGATIVE) U Methamphetamines Scrn (NEGATIVE) U Benzodiazepines Scrn (NEGATIVE) U Cocaine Metab Screen (NEGATIVE) U Marijuana (THC) Screen (NEGATIVE) 08/27/18 08/27/18 Range/Units 00:47 00:47 WBC (4.0-11.0) K/uL RBC (4.50-5.90) M/uL Hgb (13.0-17.0) g/dL Hct (38.0-50.0) % MCV (80.0-98.0) fL MCH (27.0-32.0) pg MCHC (31.0-37.0) g/dL RDW Std Deviation (28.0-62.0) fl RDW Coeff of Erika (11.0-15.0) % Plt Count (150-400) K/uL MPV (7.40-12.00) fL Neut % (Auto) (48.0-80.0) % Lymph % (Auto) (16.0-40.0) % [place] % (Auto) (0.0-15.0) % Eos % (Auto) (0.0-7.0) % Baso % (Auto) (0.0-1.5) % Neut # (Auto) (1.4-5.7) K/uL Lymph # (Auto) (0.6-2.4) K/uL [place] # (Auto) (0.0-0.8) K/uL Eos # (Auto) (0.0-0.7) K/uL Baso # (Auto) (0.0-0.1) K/uL Nucleated RBC % /100WBC Nucleated RBCs # K/uL ABG pH (7.35-7.45) ABG pCO2 (35-45) mmHG ABG pO2 (75-100) mmHG ABG HCO3 (22-26) mEq/L ABG Total CO2 ABG Base Excess (-2.0-2.0) Sodium (136-148) mmol/L Potassium (3.5-5.1) mmol/L Chloride (98-107) mmol/L Carbon Dioxide (21.0-32.0) mmol/L BUN (7.0-18.0) mg/dL Creatinine (0.8-1.3) mg/dL Est Cr Clr Drug Dosing mL/min Estimated GFR (MDRD) ml/min Glucose (74-106) mg/dL Calcium (8.5-10.1) mg/dL Total Bilirubin (0.2-1.0) mg/dL AST (15-37) IU/L ALT (14-63) IU/L Alkaline Phosphatase (46-116) U/L Total Protein (6.4-8.2) g/dL Albumin (3.4-5.0) g/dL Globulin (2.6-4.0) g/dL Albumin/Globulin Ratio (0.9-1.6) Urine Color YELLOW Urine Appearance SLT CLOUDY Urine pH 6.5 (5.0-8.0) Ur Specific [place] 1.010 (1.001-1.035) Urine Protein NEGATIVE (NEGATIVE) mg/dL Urine Glucose (UA) >=1000 (NEGATIVE) mg/dL Urine Ketones 40 H (NEGATIVE) mg/dL Urine Occult Blood TRACE-INTACT H (NEGATIVE) Urine Nitrite NEGATIVE (NEGATIVE) Urine Bilirubin NEGATIVE (NEGATIVE) Urine Urobilinogen 0.2 (<2.0) EU/dL Ur Leukocyte Esterase TRACE H (NEGATIVE) Urine RBC 0-1 (0-2/HPF) Urine WBC 4-8 (0-5/HPF) Ur Epithelial Cells RARE (NONE-FEW) Urine Bacteria 2+ H (NEGATIVE) Urine Mucus LIGHT (NONE-MOD) Urine Opiates Screen NEGATIVE (NEGATIVE) Ur Oxycodone Screen NEGATIVE (NEGATIVE) Urine Methadone Screen NEGATIVE (NEGATIVE) Ur Barbiturates Screen NEGATIVE (NEGATIVE) Ur Phencyclidine Scrn NEGATIVE (NEGATIVE) Ur Amphetamine Screen NEGATIVE (NEGATIVE) U Methamphetamines Scrn NEGATIVE (NEGATIVE) U Benzodiazepines Scrn NEGATIVE (NEGATIVE) U Cocaine Metab Screen NEGATIVE (NEGATIVE) U Marijuana (THC) Screen NEGATIVE (NEGATIVE) Meds: Medications Generic Name Dose Route Start Last Admin Trade Name Freq PRN Reason Stop Dose Admin Sodium Chloride 1,000 mls @ 999 mls/hr 08/26/18 23:45 08/26/18 23:49 Normal Saline IV 999 mls/hr ASDIRECTED AUGUSTINE Administration Sodium Chloride 1,000 mls @ 999 mls/hr 08/26/18 23:45 08/27/18 00:38 Normal Saline IV 999 mls/hr ASDIRECTED AUGUSTINE Administration Discontinued Medications Generic Name Dose Route Start Last Admin Trade Name Freq PRN Reason Stop Dose Admin Insulin Human Regular 20 unit 08/27/18 00:56 08/27/18 01:04 Novolin R IVPUSH 08/27/18 00:57 20 units ONETIME ONE Administration Protocol Insulin Human Regular 10 unit 08/27/18 00:58 08/27/18 01:06 Novolin R SUBCUT 08/27/18 00:59 10 units ONETIME ONE Administration Protocol Departure - Departure Time of Disposition: 02:57 Disposition: Home, Self-Care 01 Condition: Good Clinical Impression: UTI, Urinary tract infectious disease, Medical non-compliance Diabetes type 1, uncontrolled Qualifiers: Glycemic state: with hyperglycemia Qualified Code(s): E10.65 - Type 1 diabetes mellitus with hyperglycemia - Discharge Information Referrals: PCP,None [Primary Care Provider] - Additional Instructions: The following information is given to patients seen in the emergency department who are being discharged to home. This information is to outline your options for follow-up care. We provide all patients seen in our emergency department with a follow-up referral. The need for follow-up, as well as the timing and circumstances, are variable depending upon the specifics of your emergency department visit. If you don't have a primary care physician on staff, we will provide you with a referral. We always advise you to contact your personal physician following an emergency department visit to inform them of the circumstance of the visit and for follow-up with them and/or the need for any referrals to a consulting specialist. The emergency department will also refer you to a specialist when appropriate. This referral assures that you have the opportunity for followup care with a specialist. All of these measure are taken in an effort to provide you with optimal care, which includes your followup. Under all circumstances we always encourage you to contact your private physician who remains a resource for coordinating your care. When calling for followup care, please make the office aware that this follow-up is from your recent emergency room visit. If for any reason you are refused follow-up, please contact the [facility] emergency department at and asked to speak to the emergency department charge nurse. [facility] [address] [place] [id number] Keflex as prescribed continue current medications follow-up primary medical doctor and/or clinic above return as needed as discussed - My Orders Last 24 Hours: My Active Orders 08/26/18 23:45 Sodium Chloride 0.9% [Normal Saline] 1,000 ml IV ASDIRECTED Sodium Chloride 0.9% [Normal Saline] 1,000 ml IV ASDIRECTED 08/27/18 00:47 CULTURE URINE [RM] Stat - Assessment/Plan Last 24 Hours: My Active Orders 08/26/18 23:45 Sodium Chloride 0.9% [Normal Saline] 1,000 ml IV ASDIRECTED Sodium Chloride 0.9% [Normal Saline] 1,000 ml IV ASDIRECTED 08/27/18 00:47 CULTURE URINE [RM] Stat
[2018-08-26] MEDS ORDERED: Sodium Chloride 0.9% 1,000 ML IV SCH ×2 (23:45)
[2018-08-27 00:34] LABS: CHLORIDE,CL 94 mmol/L (98-107); SODIUM,NA 130 mmol/L (136-148)
[2018-08-27] MEDS ORDERED: Insulin Regular, Human 100 Units/ML 10 ML Vial IVPUSH ONE (00:56)
[2018-08-27] MEDS ORDERED: Insulin Regular, Human 100 Units/ML 10 ML Vial SUBCUT ONE (00:58)
[2018-08-27] MEDS ORDERED: cefTRIAXone 1 GM in Sodium Chloride 0.9% 50 ML IV ONE (02:57)
[2018-08-27 03:43] VITALS: BP 118/77
== END 2018-08-27 03:49 | disposition home or self-care (01) ==
LOC: MW.ED 23:28
DX: E10.65 Type 1 diabetes mellitus with hyperglycemia (principal); N39.0 Urinary tract infection, site not specified; Z91.19 Patient's noncompliance with other medical treatment and regimen
CPT/HCPCS: 36415; 36600; 80053; 80305; 81001; 82803; 82962; 85025; 87086; 87088; 87186; 96361; 96365; 99284; J0696; J1815; J7040; J7050

== ENCOUNTER 2018-08-30 23:26 | Emergency (ER) | payer MEDICAID ==
[2018-08-30] MEDS ORDERED: Ondansetron 4 MG/2 ML SDV ONE (23:41)
[2018-08-30] MEDS ORDERED: Sodium Chloride 0.9% 20 ML ONE (23:44)
[2018-08-30] MEDS ORDERED: Pantoprazole 40 MG Vial ONE (23:45)
--- NOTE | 2018-08-30 23:46 | EDM.PDOC ---
ED HPI GENERAL MEDICAL PROBLEM - General Chief Complaint: Abdominal Pain Stated Complaint: STOMACH PAIN Time Seen by Provider: 08/30/18 23:42 - History of Present Illness INITIAL COMMENTS - FREE TEXT/NARRATIVE: HISTORY AND PHYSICAL: History of present illness: Patient's 22-year-old male history of diabetes and medical noncompliance who presents with a concern of vomiting. Patient been seen for same by myself on prior episodes. There is no reported abdominal pain fever chills chest pain shortness breath or other concern Review of systems: As per history of present illness and below otherwise all systems reviewed and negative. Past medical history: As per history of present illness and as reviewed below otherwise noncontributory. Surgical history: As per history of present illness and as reviewed below otherwise noncontributory. Social history: No reported history of drug or alcohol abuse. Family history: As per history of present illness and as reviewed below otherwise noncontributory. Physical exam: HEENT: Atraumatic, normocephalic, pupils reactive, negative for conjunctival pallor or scleral icterus, mucous membranes moist, throat clear, neck supple, nontender, trachea midline. Lungs: Clear to auscultation, breath sounds equal bilaterally, chest nontender. Heart: S1S2, regular, negative for clicks, rubs, or JVD. Abdomen: Soft, nondistended, nontender. Negative for masses or hepatosplenomegaly. Negative for costovertebral tenderness. Pelvis: Stable nontender. Genitourinary: Deferred. Rectal: Deferred. Extremities: Atraumatic, negative for cords or calf pain. Neurovascular unremarkable. Neuro: Awake, alert, oriented. Cranial nerves II through XII unremarkable. Cerebellum unremarkable. Motor and sensory unremarkable throughout. Exam nonfocal. Diagnostics: CBC CMP acute abdominal series with chest x-ray ABG Therapeutics: Saline 1 L bolus Zofran 4 mg IV Protonix 80 mg IV Impression: #1 diabetes #2 medical noncompliance #3 vomiting Definitive disposition and diagnosis as appropriate pending reevaluation and review of above. Abdominal Pain Score (Numeric/FACES): 10 - Related Data Allergies Allergy/AdvReac Type Severity Reaction Status Date / Time No Known Allergies Allergy Verified 08/30/18 23:38 Home Meds: Home Meds Insulin Aspart [NovoLOG] 5 units SUBCUT TIDAC 07/23/18 [History] Insulin Glargine,Hum.Rec.Anlog [Lantus Solostar] 30 unit SQ BEDTIME 08/27/18 [ History] Past Medical History - Past Health History Medical/Surgical History: Denies Medical/Surgical History HEENT History: Reports: Other (See Below) Other HEENT History: ear ache Cardiovascular History: Reports: None Respiratory History: Reports: None Gastrointestinal History: Reports: Irritable Bowel Syndrome Other Gastrointestinal History: gastropharesis Genitourinary History: Reports: Pyelonephritis Musculoskeletal History: Reports: Fracture Other Musculoskeletal History: Elbow long time ago Neurological History: Reports: None Psychiatric History: Reports: Depression Endocrine/Metabolic History: Reports: Diabetes, Type I Other Endocrine/Metabolic History: non-compliant to DM medications Hematologic History: Reports: None Oncologic (Cancer) History: Reports: None - Infectious Disease History Infectious Disease History: Reports: None - Past Surgical History Male Surgical History: Reports: None Endocrine Surgical History: Reports: None Social & Family History - Family History Family Medical History: Noncontributory OBGYN: Reports: Endocrine/Metabolic: Reports: Diabetes, Type I, Diabetes, type II - Tobacco Use Smoking Status *Q: Never Smoker Second Hand Smoke Exposure: No - Caffeine Use Caffeine Use: Reports: None - Recreational Drug Use Recreational Drug Use: No - Living Situation & Occupation Living situation: Reports: Single, with Family Occupation: Unemployed ED ROS GENERAL - Review of Systems Review Of Systems: ROS reveals no pertinent complaints other than HPI. ED EXAM, GENERAL - Physical Exam Exam: See Below (See dictation) Course - Vital Signs Last Recorded V/S: Last Vital Signs Temp 36.3 C 08/30/18 23:39 Pulse 99 08/31/18 00:43 Resp 17 08/31/18 00:43 BP 149/109 H 08/31/18 00:43 Pulse Ox 100 08/31/18 00:43 - Orders/Labs/Meds Orders: Active Orders 24 hr Category Date Time Status URINALYSIS W/MICROSCOPIC [UA W/MICROSCOPIC] [URIN] Stat Lab 08/30/18 23:54 Ordered Pantoprazole [ProTONIX IV] 80 mg Med 08/30/18 23:50 Active Sodium Chloride 0.9% [Normal Saline] 100 ml IVPUSH BOLUS Medication Orders Pantoprazole Sodium 80 mg/ (Sodium Chloride) 100 mls @ 10 mls/hr IVPUSH BOLUS ONE Stop: 08/31/18 09:49 Last Admin: 08/31/18 00:12 Dose: Not Given Labs: Laboratory Tests 08/30/18 08/30/18 08/30/18 Range/Units 23:35 23:50 23:50 WBC 4.17 (4.0-11.0) K/uL RBC 4.92 (4.50-5.90) M/uL Hgb 12.8 L (13.0-17.0) g/dL Hct 38.9 (38.0-50.0) % MCV 79.1 L (80.0-98.0) fL MCH 26.0 L (27.0-32.0) pg MCHC 32.9 (31.0-37.0) g/dL RDW Std Deviation 37.5 (28.0-62.0) fl RDW Coeff of Erika 13 (11.0-15.0) % Plt Count 299 (150-400) K/uL MPV 9.60 (7.40-12.00) fL Neut % (Auto) 51.3 (48.0-80.0) % Lymph % (Auto) 42.0 H (16.0-40.0) % [place] % (Auto) 4.8 (0.0-15.0) % Eos % (Auto) 1.4 (0.0-7.0) % Baso % (Auto) 0.5 (0.0-1.5) % Neut # (Auto) 2.1 (1.4-5.7) K/uL Lymph # (Auto) 1.8 (0.6-2.4) K/uL [place] # (Auto) 0.2 (0.0-0.8) K/uL Eos # (Auto) 0.1 (0.0-0.7) K/uL Baso # (Auto) 0.0 (0.0-0.1) K/uL Nucleated RBC % 0.0 /100WBC Nucleated RBCs # 0 K/uL ABG pH (7.35-7.45) ABG pCO2 (35-45) mmHG ABG pO2 (75-100) mmHG ABG HCO3 (22-26) mEq/L ABG Total CO2 ABG Base Excess (-2.0-2.0) Sodium 138 (136-148) mmol/L Potassium 4.0 (3.5-5.1) mmol/L Chloride 102 (98-107) mmol/L Carbon Dioxide 25.1 (21.0-32.0) mmol/L BUN 10 (7.0-18.0) mg/dL Creatinine 0.7 L (0.8-1.3) mg/dL Est Cr Clr Drug Dosing 129.60 mL/min Estimated GFR (MDRD) > 60.0 ml/min Glucose 384 H (74-106) mg/dL POC Glucose 355 H (60-110) mg/dL Calcium 9.8 (8.5-10.1) mg/dL Total Bilirubin 0.2 (0.2-1.0) mg/dL AST 8 L (15-37) IU/L ALT 12 L (14-63) IU/L Alkaline Phosphatase 112 (46-116) U/L Total Protein 8.7 H (6.4-8.2) g/dL Albumin 3.2 L (3.4-5.0) g/dL Globulin 5.5 H (2.6-4.0) g/dL Albumin/Globulin Ratio 0.6 L (0.9-1.6) Lipase 82 (73-393) U/L 08/31/18 Range/Units 00:01 WBC (4.0-11.0) K/uL RBC (4.50-5.90) M/uL Hgb (13.0-17.0) g/dL Hct (38.0-50.0) % MCV (80.0-98.0) fL MCH (27.0-32.0) pg MCHC (31.0-37.0) g/dL RDW Std Deviation (28.0-62.0) fl RDW Coeff of Erika (11.0-15.0) % Plt Count (150-400) K/uL MPV (7.40-12.00) fL Neut % (Auto) (48.0-80.0) % Lymph % (Auto) (16.0-40.0) % [place] % (Auto) (0.0-15.0) % Eos % (Auto) (0.0-7.0) % Baso % (Auto) (0.0-1.5) % Neut # (Auto) (1.4-5.7) K/uL Lymph # (Auto) (0.6-2.4) K/uL [place] # (Auto) (0.0-0.8) K/uL Eos # (Auto) (0.0-0.7) K/uL Baso # (Auto) (0.0-0.1) K/uL Nucleated RBC % /100WBC Nucleated RBCs # K/uL ABG pH 7.452 H (7.35-7.45) ABG pCO2 34 L (35-45) mmHG ABG pO2 93 (75-100) mmHG ABG HCO3 24 (22-26) mEq/L ABG Total CO2 21.9 ABG Base Excess 0.4 (-2.0-2.0) Sodium (136-148) mmol/L Potassium (3.5-5.1) mmol/L Chloride (98-107) mmol/L Carbon Dioxide (21.0-32.0) mmol/L BUN (7.0-18.0) mg/dL Creatinine (0.8-1.3) mg/dL Est Cr Clr Drug Dosing mL/min Estimated GFR (MDRD) ml/min Glucose (74-106) mg/dL POC Glucose (60-110) mg/dL Calcium (8.5-10.1) mg/dL Total Bilirubin (0.2-1.0) mg/dL AST (15-37) IU/L ALT (14-63) IU/L Alkaline Phosphatase (46-116) U/L Total Protein (6.4-8.2) g/dL Albumin (3.4-5.0) g/dL Globulin (2.6-4.0) g/dL Albumin/Globulin Ratio (0.9-1.6) Lipase (73-393) U/L Meds: Medications Generic Name Dose Route Start Last Admin Trade Name Freq PRN Reason Stop Dose Admin Pantoprazole Sodium 80 mg/ 100 mls @ 10 mls/hr 08/30/18 23:50 08/31/18 00:12 Sodium Chloride IVPUSH 08/31/18 09:49 Not Given BOLUS ONE Discontinued Medications Generic Name Dose Route Start Last Admin Trade Name Freq PRN Reason Stop Dose Admin Diphenhydramine HCl 50 mg 08/31/18 00:14 08/31/18 00:41 Benadryl IVPUSH 08/31/18 00:15 50 mg ONETIME ONE Administration Sodium Chloride Confirm 08/30/18 23:44 08/31/18 00:07 Normal Saline Administered 08/30/18 23:45 20 mls/hr Dose Administration 20 mls @ as directed .ROUTE .STK-MED ONE Sodium Chloride 1,000 mls @ 999 mls/hr 08/30/18 23:50 08/31/18 00:01 Normal Saline IV 08/31/18 00:50 999 mls/hr .Bolus ONE Administration Ondansetron HCl Confirm 08/30/18 23:41 08/31/18 00:12 Zofran Administered 08/30/18 23:42 Not Given Dose 4 mg .ROUTE .STK-MED ONE Ondansetron HCl 4 mg 08/30/18 23:50 08/31/18 00:04 Zofran IVPUSH 08/30/18 23:51 4 mg ONETIME ONE Administration Pantoprazole Sodium Confirm 08/30/18 23:45 08/31/18 00:12 Protonix Iv Administered 08/30/18 23:46 Not Given Dose 80 mg .ROUTE .STK-MED ONE Pantoprazole Sodium 80 mg 08/31/18 00:05 08/31/18 00:07 Protonix Iv IVPUSH 08/31/18 00:06 80 mg BOLUS ONE Administration Departure - Departure Time of Disposition: 01:56 Disposition: Home, Self-Care 01 Condition: Good Clinical Impression: Vomiting, Diabetic gastroparesis, Medical non-compliance - Discharge Information Referrals: PCP,None [Primary Care Provider] - Forms: ED Department Discharge Additional Instructions: The following information is given to patients seen in the emergency department who are being discharged to home. This information is to outline your options for follow-up care. We provide all patients seen in our emergency department with a follow-up referral. The need for follow-up, as well as the timing and circumstances, are variable depending upon the specifics of your emergency department visit. If you don't have a primary care physician on staff, we will provide you with a referral. We always advise you to contact your personal physician following an emergency department visit to inform them of the circumstance of the visit and for follow-up with them and/or the need for any referrals to a consulting specialist. The emergency department will also refer you to a specialist when appropriate. This referral assures that you have the opportunity for followup care with a specialist. All of these measure are taken in an effort to provide you with optimal care, which includes your followup. Under all circumstances we always encourage you to contact your private physician who remains a resource for coordinating your care. When calling for followup care, please make the office aware that this follow-up is from your recent emergency room visit. If for any reason you are refused follow-up, please contact the [facility] emergency department at and asked to speak to the emergency department charge nurse. Medications as prescribed push fluids follow-up primary care as discussed and return as needed as discussed - My Orders Last 24 Hours: My Active Orders 08/30/18 23:50 Pantoprazole [ProTONIX IV] 80 mg Sodium Chloride 0.9% [Normal Saline] 100 ml IVPUSH BOLUS 08/30/18 23:54 URINALYSIS W/MICROSCOPIC [UA W/MICROSCOPIC] [URIN] Stat - Assessment/Plan Last 24 Hours: My Active Orders 08/30/18 23:50 Pantoprazole [ProTONIX IV] 80 mg Sodium Chloride 0.9% [Normal Saline] 100 ml IVPUSH BOLUS 08/30/18 23:54 URINALYSIS W/MICROSCOPIC [UA W/MICROSCOPIC] [URIN] Stat
[2018-08-30] MEDS ORDERED: Sodium Chloride 0.9% 1,000 ML IV ONE (23:50)
[2018-08-30] MEDS ORDERED: Ondansetron 4 MG/2 ML SDV IVPUSH ONE (23:50)
[2018-08-30] MEDS ORDERED: Pantoprazole 80 MG in Sodium Chloride 0.9% 100 ML IVPUSH ONE (23:50)
[2018-08-31] MEDS ORDERED: Pantoprazole 40 MG Vial IVPUSH ONE (00:05)
[2018-08-31] MEDS ORDERED: diphenhydrAMINE 50 MG/ML SDV IVPUSH ONE (00:14)
[2018-08-31 00:25] LABS: CHLORIDE,CL 102 mmol/L (98-107); SODIUM,NA 138 mmol/L (136-148)
[2018-08-31 00:44] VITALS: BP 149/109
--- NOTE | 2018-08-31 00:47 | CR ---
INDICATION: : Vomiting. COMPARISON: Chest radiograph from 07/26/2018 which includes the upper abdomen. FINDINGS: Erect and supine films of the abdomen were combined with an erect film of the chest. In the abdomen, there is no sign of distention of the small bowel or colon to suggest obstruction or ileus. There is no sign of free air or distinct mass. There is a moderate amount of fecal material distributed throughout the colon and rectum consistent with constipation. There is increased fecal material in the right colon compared to the previous study. The osseous structures are normal in appearance for the patient`s age. In the chest, the lungs are clear and the heart and mediastinum are normal in appearance. IMPRESSION: No sign of obstruction or ileus. Moderate amount of fecal material distributed throughout the colon and rectum consistent with constipation. No abnormality seen in the chest. Dictated by Frederick Erickson MD @ Aug 31 2018 12:43AM Signed by Dr. Frederick Erickson @ Aug 31 2018 12:45AM
== END 2018-08-31 02:36 | disposition home or self-care (01) ==
LOC: MW.ED 23:26
DX: E10.43 Type 1 diabetes mellitus with diabetic autonomic (poly)neuropathy (principal); K31.84 Gastroparesis; Z91.19 Patient's noncompliance with other medical treatment and regimen
CPT/HCPCS: 36600; 74022; 80053; 82803; 82962; 83690; 85025; 96361; 96374; 96375; 99285; C9113; J1200; J2405; J7040; 99283

== ENCOUNTER 2018-08-31 16:10 | Inpatient (IN) | payer MEDICAID ==
[2018-08-31] MEDS ORDERED: Sodium Chloride 0.9% 2.5 ML Syringe FLUSH PRN (16:30)
[2018-08-31] MEDS ORDERED: Sodium Chloride 0.9% 1,000 ML IV ONE ×3 (16:30→21:00)
[2018-08-31] MEDS ORDERED: Sodium Chloride 0.9% 10 ML Syringe FLUSH PRN (16:30)
[2018-08-31] MEDS ORDERED: Ondansetron 4 MG/2 ML SDV IVPUSH ONE ×2 (16:30→18:04)
--- NOTE | 2018-08-31 16:34 | EDM.PDOC ---
ED HPI GENERAL MEDICAL PROBLEM - General Chief Complaint: Abdominal Pain Stated Complaint: VOMITING STOMACH PAIN Time Seen by Provider: 08/31/18 16:34 Source of Information: Reports: Patient History Limitations: Reports: No Limitations - History of Present Illness INITIAL COMMENTS - FREE TEXT/NARRATIVE: HISTORY AND PHYSICAL: History of present illness: Patient is a 22-year-old male with type 1 diabetes presents to the ED with complaint of abdominal pain and vomiting. This is his third visit to the ED in the past week. He states he can't keep anything down. Pain is in his upper abdomen. He denies fevers, chills, diarrhea, cough, chest pain, shortness of breath. Patient is also complaining of being itchy all over. Review of systems: As per history of present illness and below otherwise all systems reviewed and negative. Past medical history: As per history of present illness and as reviewed below otherwise noncontributory. Surgical history: As per history of present illness and as reviewed below otherwise noncontributory. Social history: No reported history of drug or alcohol abuse. Family history: As per history of present illness and as reviewed below otherwise noncontributory. Physical exam: General: Patient sitting comfortably in no acute distress and nontoxic appearing HEENT: Atraumatic, normocephalic, pupils reactive, negative for conjunctival pallor or scleral icterus, mucous membranes moist, throat clear, neck supple, nontender, trachea midline. No meningeal signs. Lungs: Clear to auscultation, breath sounds equal bilaterally, chest nontender. Heart: S1S2, regular, negative for clicks, rubs, or overt murmur. Abdomen: Upper abdominal tenderness to palpation. Soft, nondistended. Negative for masses or hepatosplenomegaly. Negative for costovertebral tenderness. No rigidity, rebound, guarding. Pelvis: Stable nontender. Genitourinary: Deferred. Rectal: Deferred. Extremities: Atraumatic, negative for cords or calf pain. Neurovascular unremarkable. Neuro: Awake, alert, oriented. Cranial nerves II through XII unremarkable. Cerebellum unremarkable. Motor and sensory unremarkable throughout. Exam nonfocal. Notes: Diagnostics: CBC, CMP, Lipase, UA, UDS Therapeutics: 1L NS IV 4mg Zofran IV 80mg Protonix 50mg Benadryl Toradol 30mg IV Prescriptions: Impression: Chronic intermittent abdominal pain, vomiting, dehydration Plan: Discussed with Dr. Gómez, patient will be admitted to observation Definitive disposition and diagnosis as appropriate pending reevaluation and review of above. Mid Abdomen Pain Score (Numeric/FACES): 10 - Related Data Allergies Allergy/AdvReac Type Severity Reaction Status Date / Time No Known Allergies Allergy Verified 08/31/18 16:28 Home Meds: Home Meds Insulin Aspart [NovoLOG] 5 units SUBCUT TIDAC 07/23/18 [History] Insulin Glargine,Hum.Rec.Anlog [Lantus Solostar] 30 unit SQ BEDTIME 08/27/18 [ History] Past Medical History - Past Health History Medical/Surgical History: Denies Medical/Surgical History HEENT History: Reports: Other (See Below) Other HEENT History: ear ache Cardiovascular History: Reports: None Respiratory History: Reports: None Gastrointestinal History: Reports: Irritable Bowel Syndrome Other Gastrointestinal History: gastropharesis Genitourinary History: Reports: Pyelonephritis Musculoskeletal History: Reports: Fracture Other Musculoskeletal History: Elbow long time ago Neurological History: Reports: None Psychiatric History: Reports: Depression Endocrine/Metabolic History: Reports: Diabetes, Type I Other Endocrine/Metabolic History: non-compliant to DM medications Hematologic History: Reports: None Oncologic (Cancer) History: Reports: None - Infectious Disease History Infectious Disease History: Reports: None - Past Surgical History Male Surgical History: Reports: None Endocrine Surgical History: Reports: None Social & Family History - Family History Family Medical History: Noncontributory OBGYN: Reports: Endocrine/Metabolic: Reports: Diabetes, Type I, Diabetes, type II - Tobacco Use Smoking Status *Q: Never Smoker - Caffeine Use Caffeine Use: Reports: None - Recreational Drug Use Recreational Drug Use: No - Living Situation & Occupation Living situation: Reports: Single, with Family Occupation: Unemployed ED ROS GENERAL - Review of Systems Review Of Systems: ROS reveals no pertinent complaints other than HPI. ED EXAM, GI/ABD - Physical Exam Exam: See Below (see dictation) Course - Vital Signs Last Recorded V/S: Last Vital Signs Temp 97.6 F 08/31/18 16:26 Pulse 122 H 08/31/18 16:26 Resp 18 08/31/18 16:26 BP 113/69 08/31/18 16:26 Pulse Ox 97 08/31/18 16:26 - Orders/Labs/Meds Orders: Active Orders 24 hr Category Date Time Status Blood Glucose Check, Bedside [RC] ONETIME Care 08/31/18 18:21 Active Sodium Chloride 0.9% [Normal Saline] 1,000 ml Med 08/31/18 18:21 Active IV STAT Sodium Chloride 0.9% [Saline Flush] Med 08/31/18 16:30 Active 10 ml FLUSH ASDIRECTED PRN Sodium Chloride 0.9% [Saline Flush] Med 08/31/18 16:30 Active 2.5 ml FLUSH ASDIRECTED PRN Saline Lock Insert [OM.PC] Stat Oth 08/31/18 16:30 Ordered Medication Orders Sodium Chloride (Normal Saline) 1,000 mls @ 999 mls/hr IV STAT ONE Stop: 08/31/18 19:21 Last Admin: 08/31/18 18:48 Dose: 999 mls/hr Sodium Chloride (Saline Flush) 10 ml FLUSH ASDIRECTED PRN PRN Reason: Keep Vein Open Last Admin: 08/31/18 16:43 Dose: 10 ml Sodium Chloride (Saline Flush) 2.5 ml FLUSH ASDIRECTED PRN PRN Reason: Keep Vein Open Last Admin: 08/31/18 16:43 Dose: 2.5 ml Labs: Laboratory Tests 08/31/18 08/31/18 08/31/18 Range/Units 16:37 16:37 16:56 WBC 5.90 (4.0-11.0) K/uL RBC 4.49 L (4.50-5.90) M/uL Hgb 11.7 L (13.0-17.0) g/dL Hct 35.5 L (38.0-50.0) % MCV 79.1 L (80.0-98.0) fL MCH 26.1 L (27.0-32.0) pg MCHC 33.0 (31.0-37.0) g/dL RDW Std Deviation 38.1 (28.0-62.0) fl RDW Coeff of Erika 14 (11.0-15.0) % Plt Count 319 (150-400) K/uL MPV 9.30 (7.40-12.00) fL Neut % (Auto) 72.5 (48.0-80.0) % Lymph % (Auto) 25.6 (16.0-40.0) % [place] % (Auto) 1.9 (0.0-15.0) % Eos % (Auto) 0.0 (0.0-7.0) % Baso % (Auto) 0.0 (0.0-1.5) % Neut # (Auto) 4.3 (1.4-5.7) K/uL Lymph # (Auto) 1.5 (0.6-2.4) K/uL [place] # (Auto) 0.1 (0.0-0.8) K/uL Eos # (Auto) 0.0 (0.0-0.7) K/uL Baso # (Auto) 0.0 (0.0-0.1) K/uL Nucleated RBC % 0.0 /100WBC Nucleated RBCs # 0 K/uL ABG pH 7.386 (7.35-7.45) ABG pCO2 33 L (35-45) mmHG ABG pO2 41 L (75-100) mmHG ABG HCO3 20 L (22-26) mEq/L ABG Total CO2 18.3 ABG Base Excess -4.7 L (-2.0-2.0) Sodium 143 (136-148) mmol/L Potassium 3.9 (3.5-5.1) mmol/L Chloride 105 (98-107) mmol/L Carbon Dioxide 18.6 L (21.0-32.0) mmol/L BUN 23 H (7.0-18.0) mg/dL Creatinine 0.7 L (0.8-1.3) mg/dL Est Cr Clr Drug Dosing 129.60 mL/min Estimated GFR (MDRD) > 60.0 ml/min Glucose 283 H (74-106) mg/dL Calcium 9.6 (8.5-10.1) mg/dL Total Bilirubin 0.3 (0.2-1.0) mg/dL AST 8 L (15-37) IU/L ALT 14 (14-63) IU/L Alkaline Phosphatase 105 (46-116) U/L Total Protein 8.4 H (6.4-8.2) g/dL Albumin 3.2 L (3.4-5.0) g/dL Globulin 5.2 H (2.6-4.0) g/dL Albumin/Globulin Ratio 0.6 L (0.9-1.6) Amylase 29 (25-115) U/L Lipase 31 L (73-393) U/L Urine Color Urine Appearance Urine pH (5.0-8.0) Ur Specific [place] (1.001-1.035) Urine Protein (NEGATIVE) mg/dL Urine Glucose (UA) (NEGATIVE) mg/dL Urine Ketones (NEGATIVE) mg/dL Urine Occult Blood (NEGATIVE) Urine Nitrite (NEGATIVE) Urine Bilirubin (NEGATIVE) Urine Urobilinogen (<2.0) EU/dL Ur Leukocyte Esterase (NEGATIVE) Urine RBC (0-2/HPF) Urine WBC (0-5/HPF) Ur Epithelial Cells (NONE-FEW) Urine Bacteria (NEGATIVE) Urine Opiates Screen (NEGATIVE) Ur Oxycodone Screen (NEGATIVE) Urine Methadone Screen (NEGATIVE) Ur Barbiturates Screen (NEGATIVE) Ur Phencyclidine Scrn (NEGATIVE) Ur Amphetamine Screen (NEGATIVE) U Methamphetamines Scrn (NEGATIVE) U Benzodiazepines Scrn (NEGATIVE) U Cocaine Metab Screen (NEGATIVE) U Marijuana (THC) Screen (NEGATIVE) 08/31/18 08/31/18 Range/Units 18:02 18:02 WBC (4.0-11.0) K/uL RBC (4.50-5.90) M/uL Hgb (13.0-17.0) g/dL Hct (38.0-50.0) % MCV (80.0-98.0) fL MCH (27.0-32.0) pg MCHC (31.0-37.0) g/dL RDW Std Deviation (28.0-62.0) fl RDW Coeff of Erika (11.0-15.0) % Plt Count (150-400) K/uL MPV (7.40-12.00) fL Neut % (Auto) (48.0-80.0) % Lymph % (Auto) (16.0-40.0) % [place] % (Auto) (0.0-15.0) % Eos % (Auto) (0.0-7.0) % Baso % (Auto) (0.0-1.5) % Neut # (Auto) (1.4-5.7) K/uL Lymph # (Auto) (0.6-2.4) K/uL [place] # (Auto) (0.0-0.8) K/uL Eos # (Auto) (0.0-0.7) K/uL Baso # (Auto) (0.0-0.1) K/uL Nucleated RBC % /100WBC Nucleated RBCs # K/uL ABG pH (7.35-7.45) ABG pCO2 (35-45) mmHG ABG pO2 (75-100) mmHG ABG HCO3 (22-26) mEq/L ABG Total CO2 ABG Base Excess (-2.0-2.0) Sodium (136-148) mmol/L Potassium (3.5-5.1) mmol/L Chloride (98-107) mmol/L Carbon Dioxide (21.0-32.0) mmol/L BUN (7.0-18.0) mg/dL Creatinine (0.8-1.3) mg/dL Est Cr Clr Drug Dosing mL/min Estimated GFR (MDRD) ml/min Glucose (74-106) mg/dL Calcium (8.5-10.1) mg/dL Total Bilirubin (0.2-1.0) mg/dL AST (15-37) IU/L ALT (14-63) IU/L Alkaline Phosphatase (46-116) U/L Total Protein (6.4-8.2) g/dL Albumin (3.4-5.0) g/dL Globulin (2.6-4.0) g/dL Albumin/Globulin Ratio (0.9-1.6) Amylase (25-115) U/L Lipase (73-393) U/L Urine Color YELLOW Urine Appearance CLEAR Urine pH 6.5 (5.0-8.0) Ur Specific [place] 1.020 (1.001-1.035) Urine Protein 100 H (NEGATIVE) mg/dL Urine Glucose (UA) >=1000 (NEGATIVE) mg/dL Urine Ketones >=80 (NEGATIVE) mg/dL Urine Occult Blood NEGATIVE (NEGATIVE) Urine Nitrite NEGATIVE (NEGATIVE) Urine Bilirubin NEGATIVE (NEGATIVE) Urine Urobilinogen 0.2 (<2.0) EU/dL Ur Leukocyte Esterase NEGATIVE (NEGATIVE) Urine RBC 0-2 (0-2/HPF) Urine WBC 3-5 (0-5/HPF) Ur Epithelial Cells OCCASIONAL (NONE-FEW) Urine Bacteria RARE (NEGATIVE) Urine Opiates Screen NEGATIVE (NEGATIVE) Ur Oxycodone Screen NEGATIVE (NEGATIVE) Urine Methadone Screen NEGATIVE (NEGATIVE) Ur Barbiturates Screen NEGATIVE (NEGATIVE) Ur Phencyclidine Scrn NEGATIVE (NEGATIVE) Ur Amphetamine Screen NEGATIVE (NEGATIVE) U Methamphetamines Scrn NEGATIVE (NEGATIVE) U Benzodiazepines Scrn NEGATIVE (NEGATIVE) U Cocaine Metab Screen NEGATIVE (NEGATIVE) U Marijuana (THC) Screen NEGATIVE (NEGATIVE) Meds: Medications Generic Name Dose Route Start Last Admin Trade Name Freq PRN Reason Stop Dose Admin Sodium Chloride 1,000 mls @ 999 mls/hr 08/31/18 18:21 08/31/18 18:48 Normal Saline IV 08/31/18 19:21 999 mls/hr STAT ONE Administration Sodium Chloride 10 ml 08/31/18 16:30 08/31/18 16:43 Saline Flush FLUSH 10 ml ASDIRECTED PRN Administration Keep Vein Open Sodium Chloride 2.5 ml 08/31/18 16:30 08/31/18 16:43 Saline Flush FLUSH 2.5 ml ASDIRECTED PRN Administration Keep Vein Open Discontinued Medications Generic Name Dose Route Start Last Admin Trade Name Freq PRN Reason Stop Dose Admin Diphenhydramine HCl 50 mg 08/31/18 16:38 08/31/18 16:43 Benadryl IVPUSH 08/31/18 16:39 50 mg ONETIME ONE Administration Sodium Chloride 1,000 mls @ 999 mls/hr 08/31/18 16:30 08/31/18 16:43 Normal Saline IV 08/31/18 17:30 999 mls/hr STAT ONE Administration Sodium Chloride Confirm 08/31/18 17:31 08/31/18 18:04 Normal Saline Administered 08/31/18 17:32 20 mls/hr Dose Administration 20 mls @ as directed .ROUTE .STK-MED ONE Ketorolac Tromethamine 30 mg 08/31/18 18:03 08/31/18 18:09 Toradol IVPUSH 08/31/18 18:04 30 mg ONETIME ONE Administration Ondansetron HCl 4 mg 08/31/18 16:30 08/31/18 16:43 Zofran IVPUSH 08/31/18 16:31 4 mg ONETIME ONE Administration Ondansetron HCl 4 mg 08/31/18 18:04 08/31/18 18:09 Zofran IVPUSH 08/31/18 18:05 4 mg ONETIME ONE Administration Pantoprazole Sodium 80 mg 08/31/18 17:16 08/31/18 17:38 Protonix Iv IVPUSH 08/31/18 17:17 80 mg .BOLUS ONE Administration Departure - Departure Time of Disposition: 18:54 Disposition: Refer to Observation Condition: Good Clinical Impression: Dehydration, Noncompliance with medication regimen - Discharge Information Referrals: PCP,Unknown [Primary Care Provider] - Forms: ED Department Discharge - My Orders Last 24 Hours: My Active Orders 08/31/18 16:30 Sodium Chloride 0.9% [Saline Flush] 10 ml FLUSH ASDIRECTED PRN Sodium Chloride 0.9% [Saline Flush] 2.5 ml FLUSH ASDIRECTED PRN Saline Lock Insert [OM.PC] Stat 08/31/18 18:21 Blood Glucose Check, Bedside [RC] ONETIME Sodium Chloride 0.9% [Normal Saline] 1,000 ml IV STAT - Assessment/Plan Last 24 Hours: My Active Orders 08/31/18 16:30 Sodium Chloride 0.9% [Saline Flush] 10 ml FLUSH ASDIRECTED PRN Sodium Chloride 0.9% [Saline Flush] 2.5 ml FLUSH ASDIRECTED PRN Saline Lock Insert [OM.PC] Stat 08/31/18 18:21 Blood Glucose Check, Bedside [RC] ONETIME Sodium Chloride 0.9% [Normal Saline] 1,000 ml IV STAT
[2018-08-31] MEDS ORDERED: diphenhydrAMINE 50 MG/ML SDV IVPUSH ONE (16:38)
[2018-08-31 17:05] LABS: CHLORIDE,CL 105 mmol/L (98-107); SODIUM,NA 143 mmol/L (136-148)
[2018-08-31] MEDS ORDERED: Pantoprazole 40 MG Vial IVPUSH ONE (17:16)
[2018-08-31] MEDS ORDERED: Sodium Chloride 0.9% 20 ML ONE (17:31)
[2018-08-31] MEDS ORDERED: Ketorolac 30 MG/ML SDV IVPUSH ONE (18:03)
[2018-08-31] MEDS ORDERED: Acetaminophen 325 MG Tab PO PRN (20:53)
[2018-08-31] MEDS: Morphine 2 MG/ML Syringe IVPUSH PRN (21:28)
[2018-08-31] MEDS: Insulin Aspart 100 Units/ML 3 ML Pen SUBCUT SCH (22:57)
[2018-09-01] MEDS: Morphine 2 MG/ML Syringe IVPUSH PRN ×9 (00:14→23:00)
[2018-09-01] MEDS: oxyCODONE 5 MG Tab PO PRN ×3 (05:15→21:53)
[2018-09-01 06:25] LABS: CHLORIDE,CL 108 mmol/L (98-107); SODIUM,NA 141 mmol/L (136-148)
--- NOTE | 2018-09-01 06:34 | PCM.HP ---
H&P History of Present Illness - General Date of Service: 09/01/18 Admit Problem/Dx: Admission Diagnosis/Problem Admission Diagnosis/Problem Dehydration, acute on chronic abdominal pain, intractable nausea and vomiting Source of Information: Patient History Limitations: Reports: No Limitations - History of Present Illness Initial Comments - Free Text/Narative: The patient is a 22-year-old gentleman who had presented to the emergency department complaining of severe abdominal pain and nausea and vomiting. The patient is a type I diabetic that is poorly controlled and he is known to me from multiple hospitalizations for similar problems. The patient had visited the emergency department 3 times during this week for similar issues and was admitted late yesterday evening. The patient had denied any fever or chills. He' s had no dizziness or lightheadedness. The patient's abdominal pain is similar to his previous admissions and that is characterized as cramping and generalized and it does not radiate. Patient says that eating worsens the pain and medication seems to help. In particular narcotic pain medication. Onset of Symptoms: Reports: Gradual Duration of Symptoms: Reports: Day(s):, Getting Worse Location: Reports: Abdomen Quality: Reports: Ache, Dull, Same as Previous Episode, Stabbing, Throbbing Severity: Moderate Improves with: Reports: Medication Worsens with: Reports: Eating Associated Symptoms: Reports: Nausea/Vomiting Mid Abdomen Pain Score (Numeric/FACES): 10 - Related Data Allergies/Adverse Reactions: Allergies Allergy/AdvReac Type Severity Reaction Status Date / Time No Known Allergies Allergy Verified 08/31/18 20:46 Home Medications: Home Meds Insulin Aspart [NovoLOG] 5 units SUBCUT TIDAC 07/23/18 [History] Insulin Glargine,Hum.Rec.Anlog [Lantus Solostar] 30 unit SQ BEDTIME 08/27/18 [ History] Past Medical History - Past Health History Medical/Surgical History: Denies Medical/Surgical History HEENT History: Reports: Other (See Below) Other HEENT History: ear ache Cardiovascular History: Reports: None Respiratory History: Reports: None Gastrointestinal History: Reports: Irritable Bowel Syndrome Other Gastrointestinal History: gastropharesis Genitourinary History: Reports: Pyelonephritis Musculoskeletal History: Reports: Fracture Other Musculoskeletal History: Elbow long time ago Neurological History: Reports: None Psychiatric History: Reports: Anxiety, Depression Endocrine/Metabolic History: Reports: Diabetes, Type I Other Endocrine/Metabolic History: non-compliant to DM medications Hematologic History: Reports: None Oncologic (Cancer) History: Reports: None Dermatologic History: Reports: Other (See Below) Other Dermatologic History: dry itchy skin - Infectious Disease History Infectious Disease History: Reports: None - Past Surgical History Male Surgical History: Reports: None Endocrine Surgical History: Reports: None Dermatological Surgical History: Reports: None Social & Family History - Family History Family Medical History: Noncontributory OBGYN: Reports: Endocrine/Metabolic: Reports: Diabetes, Type I, Diabetes, type II - Tobacco Use Smoking Status *Q: Former Smoker Years of Tobacco use: 3 Packs/Tins Daily: 0.5 Used Tobacco, but Quit: Yes Month/Year Tobacco Last Used: 06/2018 Second Hand Smoke Exposure: No - Caffeine Use Caffeine Use: Reports: Coffee, Energy Drinks, Soda - Recreational Drug Use Recreational Drug Use: No - Living Situation & Occupation Living situation: Reports: Single, with Family Occupation: Unemployed H&P Review of Systems - Review of Systems: Review Of Systems: See Below General: Reports: Decreased Appetite HEENT: Reports: No Symptoms Pulmonary: Reports: No Symptoms Cardiovascular: Reports: No Symptoms Gastrointestinal: Reports: Abdominal Pain, Decreased Appetite, Nausea, Vomiting Genitourinary: Reports: No Symptoms Musculoskeletal: Reports: No Symptoms Skin: Reports: No Symptoms Psychiatric: Reports: No Symptoms Neurological: Reports: No Symptoms Hematologic/Lymphatic: Reports: No Symptoms Immunologic: Reports: No Symptoms Exam - Exam Exam: See Below - Vital Signs Vital Signs: Last Vital Signs Temp 37.7 C 09/01/18 04:00 Pulse 95 09/01/18 04:00 Resp 14 09/01/18 04:00 BP 117/65 09/01/18 04:00 Pulse Ox 97 09/01/18 04:00 Weight: 50.712 kg - Exam Quality Assessment: No: Supplemental Oxygen General: Alert (Patient was sleeping heavily, rouses with some difficulty), Oriented, Cooperative, Lethargic HEENT: Conjunctiva Clear, EACs Clear, EOMI, Pupils Equal, PERRLA. No: Mucosa Moist & [place] (Dry) Neck: Supple, Trachea Midline Lungs: Clear to Auscultation, Normal Respiratory Effort Cardiovascular: Regular Rate, Regular Rhythm GI/Abdominal Exam: Normal Bowel Sounds, Soft, No Organomegaly, No Distention, Tender. No: Guarding, Rigid, Rebound Back Exam: Normal Inspection, Full Range of Motion Extremities: Normal Inspection, Normal Range of Motion, No Pedal Edema Skin: Warm, Dry, Intact, Ecchymosis (Bilateral arms, torso) Neurological: Cranial Nerves Intact Neuro Extensive - Mental Status: Alert, Oriented x3 Psychiatric: Alert, Normal Affect, Normal Mood - Patient Data Lab Results Last 24 hrs: Laboratory Results - last 24 hr 08/31/18 08/31/18 08/31/18 Range/Units 16:37 16:37 16:56 WBC 5.90 (4.0-11.0) K/uL RBC 4.49 L (4.50-5.90) M/uL Hgb 11.7 L (13.0-17.0) g/dL Hct 35.5 L (38.0-50.0) % MCV 79.1 L (80.0-98.0) fL MCH 26.1 L (27.0-32.0) pg MCHC 33.0 (31.0-37.0) g/dL RDW Std Deviation 38.1 (28.0-62.0) fl RDW Coeff of Erika 14 (11.0-15.0) % Plt Count 319 (150-400) K/uL MPV 9.30 (7.40-12.00) fL Neut % (Auto) 72.5 (48.0-80.0) % Lymph % (Auto) 25.6 (16.0-40.0) % [place] % (Auto) 1.9 (0.0-15.0) % Eos % (Auto) 0.0 (0.0-7.0) % Baso % (Auto) 0.0 (0.0-1.5) % Neut # (Auto) 4.3 (1.4-5.7) K/uL Lymph # (Auto) 1.5 (0.6-2.4) K/uL [place] # (Auto) 0.1 (0.0-0.8) K/uL Eos # (Auto) 0.0 (0.0-0.7) K/uL Baso # (Auto) 0.0 (0.0-0.1) K/uL Nucleated RBC % 0.0 /100WBC Nucleated RBCs # 0 K/uL ABG pH 7.386 (7.35-7.45) ABG pCO2 33 L (35-45) mmHG ABG pO2 41 L (75-100) mmHG ABG HCO3 20 L (22-26) mEq/L ABG Total CO2 18.3 ABG Base Excess -4.7 L (-2.0-2.0) Sodium 143 (136-148) mmol/L Potassium 3.9 (3.5-5.1) mmol/L Chloride 105 (98-107) mmol/L Carbon Dioxide 18.6 L (21.0-32.0) mmol/L BUN 23 H (7.0-18.0) mg/dL Creatinine 0.7 L (0.8-1.3) mg/dL Est Cr Clr Drug Dosing 129.60 mL/min Estimated GFR (MDRD) > 60.0 ml/min Glucose 283 H (74-106) mg/dL POC Glucose (60-110) mg/dL Calcium 9.6 (8.5-10.1) mg/dL Total Bilirubin 0.3 (0.2-1.0) mg/dL AST 8 L (15-37) IU/L ALT 14 (14-63) IU/L Alkaline Phosphatase 105 (46-116) U/L Total Protein 8.4 H (6.4-8.2) g/dL Albumin 3.2 L (3.4-5.0) g/dL Globulin 5.2 H (2.6-4.0) g/dL Albumin/Globulin Ratio 0.6 L (0.9-1.6) Amylase 29 (25-115) U/L Lipase 31 L (73-393) U/L Urine Color Urine Appearance Urine pH (5.0-8.0) Ur Specific [place] (1.001-1.035) Urine Protein (NEGATIVE) mg/dL Urine Glucose (UA) (NEGATIVE) mg/dL Urine Ketones (NEGATIVE) mg/dL Urine Occult Blood (NEGATIVE) Urine Nitrite (NEGATIVE) Urine Bilirubin (NEGATIVE) Urine Urobilinogen (<2.0) EU/dL Ur Leukocyte Esterase (NEGATIVE) Urine RBC (0-2/HPF) Urine WBC (0-5/HPF) Ur Epithelial Cells (NONE-FEW) Urine Bacteria (NEGATIVE) Urine Opiates Screen (NEGATIVE) Ur Oxycodone Screen (NEGATIVE) Urine Methadone Screen (NEGATIVE) Ur Barbiturates Screen (NEGATIVE) Ur Phencyclidine Scrn (NEGATIVE) Ur Amphetamine Screen (NEGATIVE) U Methamphetamines Scrn (NEGATIVE) U Benzodiazepines Scrn (NEGATIVE) U Cocaine Metab Screen (NEGATIVE) U Marijuana (THC) Screen (NEGATIVE) 08/31/18 08/31/18 08/31/18 Range/Units 18:02 18:02 21:25 WBC (4.0-11.0) K/uL RBC (4.50-5.90) M/uL Hgb (13.0-17.0) g/dL Hct (38.0-50.0) % MCV (80.0-98.0) fL MCH (27.0-32.0) pg MCHC (31.0-37.0) g/dL RDW Std Deviation (28.0-62.0) fl RDW Coeff of Erika (11.0-15.0) % Plt Count (150-400) K/uL MPV (7.40-12.00) fL Neut % (Auto) (48.0-80.0) % Lymph % (Auto) (16.0-40.0) % [place]isco[place] % (Auto) (0.0-15.0) % Eos % (Auto) (0.0-7.0) % Baso % (Auto) (0.0-1.5) % Neut # (Auto) (1.4-5.7) K/uL Lymph # (Auto) (0.6-2.4) K/uL [place] # (Auto) (0.0-0.8) K/uL Eos # (Auto) (0.0-0.7) K/uL Baso # (Auto) (0.0-0.1) K/uL Nucleated RBC % /100WBC Nucleated RBCs # K/uL ABG pH (7.35-7.45) ABG pCO2 (35-45) mmHG ABG pO2 (75-100) mmHG ABG HCO3 (22-26) mEq/L ABG Total CO2 ABG Base Excess (-2.0-2.0) Sodium (136-148) mmol/L Potassium (3.5-5.1) mmol/L Chloride (98-107) mmol/L Carbon Dioxide (21.0-32.0) mmol/L BUN (7.0-18.0) mg/dL Creatinine (0.8-1.3) mg/dL Est Cr Clr Drug Dosing mL/min Estimated GFR (MDRD) ml/min Glucose (74-106) mg/dL POC Glucose 228 H (60-110) mg/dL Calcium (8.5-10.1) mg/dL Total Bilirubin (0.2-1.0) mg/dL AST (15-37) IU/L ALT (14-63) IU/L Alkaline Phosphatase (46-116) U/L Total Protein (6.4-8.2) g/dL Albumin (3.4-5.0) g/dL Globulin (2.6-4.0) g/dL Albumin/Globulin Ratio (0.9-1.6) Amylase (25-115) U/L Lipase (73-393) U/L Urine Color YELLOW Urine Appearance CLEAR Urine pH 6.5 (5.0-8.0) Ur Specific [place] 1.020 (1.001-1.035) Urine Protein 100 H (NEGATIVE) mg/dL Urine Glucose (UA) >=1000 (NEGATIVE) mg/dL Urine Ketones >=80 (NEGATIVE) mg/dL Urine Occult Blood NEGATIVE (NEGATIVE) Urine Nitrite NEGATIVE (NEGATIVE) Urine Bilirubin NEGATIVE (NEGATIVE) Urine Urobilinogen 0.2 (<2.0) EU/dL Ur Leukocyte Esterase NEGATIVE (NEGATIVE) Urine RBC 0-2 (0-2/HPF) Urine WBC 3-5 (0-5/HPF) Ur Epithelial Cells OCCASIONAL (NONE-FEW) Urine Bacteria RARE (NEGATIVE) Urine Opiates Screen NEGATIVE (NEGATIVE) Ur Oxycodone Screen NEGATIVE (NEGATIVE) Urine Methadone Screen NEGATIVE (NEGATIVE) Ur Barbiturates Screen NEGATIVE (NEGATIVE) Ur Phencyclidine Scrn NEGATIVE (NEGATIVE) Ur Amphetamine Screen NEGATIVE (NEGATIVE) U Methamphetamines Scrn NEGATIVE (NEGATIVE) U Benzodiazepines Scrn NEGATIVE (NEGATIVE) U Cocaine Metab Screen NEGATIVE (NEGATIVE) U Marijuana (THC) Screen NEGATIVE (NEGATIVE) 09/01/18 09/01/18 09/01/18 Range/Units 04:36 04:36 06:04 WBC 6.27 (4.0-11.0) K/uL RBC 3.89 L (4.50-5.90) M/uL Hgb 9.9 L (13.0-17.0) g/dL Hct 31.1 L (38.0-50.0) % MCV 79.9 L (80.0-98.0) fL MCH 25.4 L (27.0-32.0) pg MCHC 31.8 (31.0-37.0) g/dL RDW Std Deviation 38.8 (28.0-62.0) fl RDW Coeff of Erika 14 (11.0-15.0) % Plt Count 320 (150-400) K/uL MPV 9.10 (7.40-12.00) fL Neut % (Auto) 66.8 (48.0-80.0) % Lymph % (Auto) 28.1 (16.0-40.0) % [place] % (Auto) 4.9 (0.0-15.0) % Eos % (Auto) 0.0 (0.0-7.0) % Baso % (Auto) 0.2 (0.0-1.5) % Neut # (Auto) 4.2 (1.4-5.7) K/uL Lymph # (Auto) 1.8 (0.6-2.4) K/uL [place] # (Auto) 0.3 (0.0-0.8) K/uL Eos # (Auto) 0.0 (0.0-0.7) K/uL Baso # (Auto) 0.0 (0.0-0.1) K/uL Nucleated RBC % 0.0 /100WBC Nucleated RBCs # 0 K/uL ABG pH (7.35-7.45) ABG pCO2 (35-45) mmHG ABG pO2 (75-100) mmHG ABG HCO3 (22-26) mEq/L ABG Total CO2 ABG Base Excess (-2.0-2.0) Sodium 141 (136-148) mmol/L Potassium 3.3 L (3.5-5.1) mmol/L Chloride 108 H (98-107) mmol/L Carbon Dioxide 22.4 (21.0-32.0) mmol/L BUN 19 H (7.0-18.0) mg/dL Creatinine 0.6 L (0.8-1.3) mg/dL Est Cr Clr Drug Dosing 140.87 mL/min Estimated GFR (MDRD) > 60.0 ml/min Glucose 211 H (74-106) mg/dL POC Glucose 196 H (60-110) mg/dL Calcium 8.5 (8.5-10.1) mg/dL Total Bilirubin (0.2-1.0) mg/dL AST (15-37) IU/L ALT (14-63) IU/L Alkaline Phosphatase (46-116) U/L Total Protein (6.4-8.2) g/dL Albumin (3.4-5.0) g/dL Globulin (2.6-4.0) g/dL Albumin/Globulin Ratio (0.9-1.6) Amylase (25-115) U/L Lipase (73-393) U/L Urine Color Urine Appearance Urine pH (5.0-8.0) Ur Specific [place] (1.001-1.035) Urine Protein (NEGATIVE) mg/dL Urine Glucose (UA) (NEGATIVE) mg/dL Urine Ketones (NEGATIVE) mg/dL Urine Occult Blood (NEGATIVE) Urine Nitrite (NEGATIVE) Urine Bilirubin (NEGATIVE) Urine Urobilinogen (<2.0) EU/dL Ur Leukocyte Esterase (NEGATIVE) Urine RBC (0-2/HPF) Urine WBC (0-5/HPF) Ur Epithelial Cells (NONE-FEW) Urine Bacteria (NEGATIVE) Urine Opiates Screen (NEGATIVE) Ur Oxycodone Screen (NEGATIVE) Urine Methadone Screen (NEGATIVE) Ur Barbiturates Screen (NEGATIVE) Ur Phencyclidine Scrn (NEGATIVE) Ur Amphetamine Screen (NEGATIVE) U Methamphetamines Scrn (NEGATIVE) U Benzodiazepines Scrn (NEGATIVE) U Cocaine Metab Screen (NEGATIVE) U Marijuana (THC) Screen (NEGATIVE) Result Diagrams: 09/01/18 04:36 09/01/18 04:36 - Problem List (1) Dehydration SNOMED Code(s): 43852915 ICD Code: E86.0 - DEHYDRATION Status: Acute Priority: High Current Visit: Yes (2) Medical non-compliance SNOMED Code(s): 694277786 ICD Code: Z91.19 - PATIENT'S NONCOMPLIANCE W OTH MEDICAL TREATMENT AND REGIMEN Status: Chronic Priority: Medium Current Visit: Yes (3) Vomiting SNOMED Code(s): 590399649 ICD Code: R11.10 - VOMITING, UNSPECIFIED Status: Acute Priority: High Current Visit: Yes Qualifiers: Vomiting type: unspecified Vomiting Intractability: intractable Nausea presence: with nausea Qualified Code(s): R11.2 - Nausea with vomiting, unspecified (4) Abdominal pain SNOMED Code(s): 78791816 ICD Code: R10.9 - UNSPECIFIED ABDOMINAL PAIN Status: Chronic Priority: High Current Visit: Yes Qualifiers: Abdominal location: upper abdomen, unspecified Qualified Code(s): R10.10 - Upper abdominal pain, unspecified (5) Diabetes type 1, uncontrolled SNOMED Code(s): 16770900, 449173468 ICD Code: E10.65 - TYPE 1 DIABETES MELLITUS WITH HYPERGLYCEMIA Status: Chronic Priority: Medium Current Visit: Yes Qualifiers: Glycemic state: with hyperglycemia Qualified Code(s): E10.65 - Type 1 diabetes mellitus with hyperglycemia (6) Diabetic gastroparesis SNOMED Code(s): 264143882 ICD Code: E11.43 - TYPE 2 DIABETES W DIABETIC AUTONOMIC (POLY)NEUROPATHY; K31.84 - GASTROPARESIS Status: Chronic Priority: Medium Current Visit: Yes (7) 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 SNOMED Code(s): 189237817 ICD Code: E10.40 - TYPE 1 DIABETES MELLITUS WITH DIABETIC NEUROPATHY, UNSP Status: Chronic Priority: Medium Current Visit: Yes Problem List Initiated/Reviewed/Updated: Yes Orders Last 24hrs: Active Orders 24 hr Category Date Time Status Admission Status [Patient Status] [ADT] Stat ADT 08/31/18 18:55 Active Blood Glucose Check, Bedside [RC] QIDACANDBED Care 08/31/18 20:56 Active NPO [Nothing Per Oral Diet] [DIET] Diet 09/01/18 Breakfast Active Acetaminophen [Tylenol] Med 08/31/18 20:53 Active 650 mg PO Q6H PRN Insulin Aspart [NovoLOG] Med 08/31/18 21:00 Active See Protocol SUBCUT ACBREAKFASTANDBED Morphine Med 08/31/18 20:54 Active 2 mg IVPUSH Q2H PRN Sodium Chloride 0.9% [Saline Flush] Med 08/31/18 16:30 Active 2.5 ml FLUSH ASDIRECTED PRN oxyCODONE Med 08/31/18 20:53 Active 5 mg PO Q4H PRN Saline Lock Insert [OM.PC] Stat Oth 08/31/18 16:30 Ordered Medication Orders Acetaminophen (Tylenol) 650 mg PO Q6H PRN PRN Reason: Pain (mild 1-3) Insulin Aspart (Novolog) 0 unit SUBCUT ACBREAKFASTANDBED AUGUSTINE; Protocol Last Admin: 08/31/18 22:57 Dose: 2 units Morphine Sulfate (Morphine) 2 mg IVPUSH Q2H PRN PRN Reason: Pain (severe 7-10) Last Admin: 09/01/18 02:20 Dose: 2 mg Admin: 09/01/18 00:14 Dose: 2 mg Admin: 08/31/18 21:28 Dose: 2 mg Oxycodone HCl (Oxycodone) 5 mg PO Q4H PRN PRN Reason: Pain (moderate 4-6) Last Admin: 09/01/18 05:15 Dose: 5 mg Sodium Chloride (Saline Flush) 2.5 ml FLUSH ASDIRECTED PRN PRN Reason: Keep Vein Open Last Admin: 08/31/18 16:43 Dose: 2.5 ml Assessment/Plan Comment:: The patient is a 22-year-old gentleman who has presented again with abdominal pain, nausea and vomiting secondary to his diabetic gastroparesis. The patient will be kept nothing by mouth for now. I've ordered IV normal saline at 125 mL per hour. The patient's symptoms will be controlled with the use of Zofran 4 mg IV every 4 hours as needed for nausea. Also pain control will be continued with narcotic pain medications. Interestingly, the patient has been noted to be keeping close track of time when he can be given narcotics again. He was also somewhat sedated and lethargic this morning on initial examination. I've ordered repeat laboratory testings. The patient will also have DVT prophylaxis with the use of Lovenox 40 mg subcutaneous on a daily basis. The patient has been encouraged to ambulate. He should be appropriate for discharge in 1-2 days. I have also ordered hemoglobin A1c but I suspect this to be showing poorly controlled diabetes.
[2018-09-01] MEDS: Insulin Aspart 100 Units/ML 3 ML Pen SUBCUT SCH ×6 (07:45→21:53)
[2018-09-01] MEDS: Enoxaparin 40 MG/0.4 ML Syringe SUBCUT SCH ×2 (07:50→09:47)
[2018-09-01 08:57] LABS: HEMOGLOBIN A1C 13.7 % (4.5-6.2)
[2018-09-01] MEDS: Ondansetron 4 MG/2 ML SDV IVPUSH PRN ×2 (14:12→23:05)
[2018-09-01] MEDS: diphenhydrAMINE 50 MG/ML SDV IVPUSH PRN ×2 (14:36→20:38)
[2018-09-01] MEDS: Sodium Chloride 0.9% 1,000 ML IV SCH ×2 (15:17→23:00)
[2018-09-01] MEDS: Insulin Glargine,Human Rec. Analog 100 Units/ML 3 ML Pen SUBCUT SCH (21:50)
[2018-09-02] MEDS: Morphine 2 MG/ML Syringe IVPUSH PRN ×5 (02:55→21:32)
[2018-09-02] MEDS: diphenhydrAMINE 50 MG/ML SDV IVPUSH PRN ×3 (02:58→19:22)
[2018-09-02] MEDS: Sodium Chloride 0.9% 1,000 ML IV SCH ×3 (06:00→21:42)
[2018-09-02] MEDS: Enoxaparin 40 MG/0.4 ML Syringe SUBCUT SCH (06:04)
[2018-09-02] MEDS: Ondansetron 4 MG/2 ML SDV IVPUSH PRN ×3 (06:10→21:34)
[2018-09-02] MEDS: Insulin Aspart 100 Units/ML 3 ML Pen SUBCUT SCH ×5 (06:54→21:14)
[2018-09-02 07:36] LABS: CHLORIDE,CL 105 mmol/L (98-107); SODIUM,NA 138 mmol/L (136-148)
--- NOTE | 2018-09-02 09:29 | PCM.PN ---
- General Info Date of Service: 09/02/18 Admission Dx/Problem (Free Text): Admission Diagnosis/Problem Admission Diagnosis/Problem Dehydration, acute on chronic abdominal pain, intractable nausea and vomiting Subjective Update: The patient is a 22-year-old gentleman who is known to me from previous visits complaining of severe abdominal pain with nausea and vomiting. The patient is a type I diabetic and this is been very poorly controlled. He has had multiple hospitalizations for similar issue. Today the patient says that he is still having generalized abdominal pain. He also has been having nausea and vomiting as well. 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 He has been using narcotic pain medications to help. Functional Status: Reports: Pain Controlled - Review of Systems General: Reports: No Symptoms HEENT: Reports: No Symptoms Pulmonary: Reports: No Symptoms Cardiovascular: Reports: No Symptoms Gastrointestinal: Reports: Abdominal Pain, Nausea, Vomiting Genitourinary: Reports: No Symptoms Musculoskeletal: Reports: No Symptoms Skin: Reports: No Symptoms Neurological: Reports: No Symptoms Psychiatric: Reports: No Symptoms - Patient Data Vitals - Most Recent: Last Vital Signs Temp 36.4 C 09/02/18 08:00 Pulse 97 09/02/18 08:00 Resp 16 09/02/18 08:00 BP 138/94 H 09/02/18 08:00 Pulse Ox 99 09/02/18 08:00 Weight - Most Recent: 50.712 kg I&O - Last 24 Hours: Intake & Output 09/01/18 09/02/18 09/02/18 22:59 06:59 14:59 Intake Total 971 1785 Output Total 330 1050 Balance 641 735 Lab Results Last 24 Hours: Laboratory Results - last 24 hr 09/01/18 09/01/18 09/01/18 Range/Units 12:00 17:25 20:48 WBC (4.0-11.0) K/uL RBC (4.50-5.90) M/uL Hgb (13.0-17.0) g/dL Hct (38.0-50.0) % MCV (80.0-98.0) fL MCH (27.0-32.0) pg MCHC (31.0-37.0) g/dL RDW Std Deviation (28.0-62.0) fl RDW Coeff of [place] (11.0-15.0) % Plt Count (150-400) K/uL MPV (7.40-12.00) fL Neut % (Auto) (48.0-80.0) % Lymph % (Auto) (16.0-40.0) % [place] % (Auto) (0.0-15.0) % Eos % (Auto) (0.0-7.0) % Baso % (Auto) (0.0-1.5) % Neut # (Auto) (1.4-5.7) K/uL Lymph # (Auto) (0.6-2.4) K/uL [place] # (Auto) (0.0-0.8) K/uL Eos # (Auto) (0.0-0.7) K/uL Baso # (Auto) (0.0-0.1) K/uL Nucleated RBC % /100WBC Nucleated RBCs # K/uL Sodium (136-148) mmol/L Potassium (3.5-5.1) mmol/L Chloride (98-107) mmol/L Carbon Dioxide (21.0-32.0) mmol/L BUN (7.0-18.0) mg/dL Creatinine (0.8-1.3) mg/dL Est Cr Clr Drug Dosing mL/min Estimated GFR (MDRD) ml/min Glucose (74-106) mg/dL POC Glucose 101 153 H 171 H (60-110) mg/dL Calcium (8.5-10.1) mg/dL 09/02/18 09/02/18 09/02/18 Range/Units 02:35 05:56 07:08 WBC (4.0-11.0) K/uL RBC (4.50-5.90) M/uL Hgb (13.0-17.0) g/dL Hct (38.0-50.0) % MCV (80.0-98.0) fL MCH (27.0-32.0) pg MCHC (31.0-37.0) g/dL RDW Std Deviation (28.0-62.0) fl RDW Coeff of Erika (11.0-15.0) % Plt Count (150-400) K/uL MPV (7.40-12.00) fL Neut % (Auto) (48.0-80.0) % Lymph % (Auto) (16.0-40.0) % [place] % (Auto) (0.0-15.0) % Eos % (Auto) (0.0-7.0) % Baso % (Auto) (0.0-1.5) % Neut # (Auto) (1.4-5.7) K/uL Lymph # (Auto) (0.6-2.4) K/uL [place] # (Auto) (0.0-0.8) K/uL Eos # (Auto) (0.0-0.7) K/uL Baso # (Auto) (0.0-0.1) K/uL Nucleated RBC % /100WBC Nucleated RBCs # K/uL Sodium 138 (136-148) mmol/L Potassium 3.1 L (3.5-5.1) mmol/L Chloride 105 (98-107) mmol/L Carbon Dioxide 25.1 (21.0-32.0) mmol/L BUN 14 (7.0-18.0) mg/dL Creatinine 0.5 L (0.8-1.3) mg/dL Est Cr Clr Drug Dosing 169.04 mL/min Estimated GFR (MDRD) > 60.0 ml/min Glucose 82 (74-106) mg/dL POC Glucose 108 78 (60-110) mg/dL Calcium 8.7 (8.5-10.1) mg/dL 09/02/18 Range/Units 07:08 WBC 6.56 (4.0-11.0) K/uL RBC 4.52 (4.50-5.90) M/uL Hgb 11.4 L (13.0-17.0) g/dL Hct 36.0 L (38.0-50.0) % MCV 79.6 L (80.0-98.0) fL MCH 25.2 L (27.0-32.0) pg MCHC 31.7 (31.0-37.0) g/dL RDW Std Deviation 38.5 (28.0-62.0) fl RDW Coeff of Erika 14 (11.0-15.0) % Plt Count 300 (150-400) K/uL MPV 8.90 (7.40-12.00) fL Neut % (Auto) 73.0 (48.0-80.0) % Lymph % (Auto) 22.4 (16.0-40.0) % [place] % (Auto) 4.3 (0.0-15.0) % Eos % (Auto) 0.0 (0.0-7.0) % Baso % (Auto) 0.3 (0.0-1.5) % Neut # (Auto) 4.8 (1.4-5.7) K/uL Lymph # (Auto) 1.5 (0.6-2.4) K/uL [place] # (Auto) 0.3 (0.0-0.8) K/uL Eos # (Auto) 0.0 (0.0-0.7) K/uL Baso # (Auto) 0.0 (0.0-0.1) K/uL Nucleated RBC % 0.0 /100WBC Nucleated RBCs # 0 K/uL Sodium (136-148) mmol/L Potassium (3.5-5.1) mmol/L Chloride (98-107) mmol/L Carbon Dioxide (21.0-32.0) mmol/L BUN (7.0-18.0) mg/dL Creatinine (0.8-1.3) mg/dL Est Cr Clr Drug Dosing mL/min Estimated GFR (MDRD) ml/min Glucose (74-106) mg/dL POC Glucose (60-110) mg/dL Calcium (8.5-10.1) mg/dL Med Orders - Current: Current Medications Acetaminophen (Tylenol) 650 mg PO Q6H PRN PRN Reason: Pain (mild 1-3) Diphenhydramine HCl (Benadryl) 25 mg IVPUSH Q6H PRN PRN Reason: Itching Last Admin: 09/02/18 09:28 Dose: 25 mg Enoxaparin Sodium (Lovenox) 40 mg SUBCUT Q24H [facility] Last Admin: 09/02/18 06:04 Dose: 40 mg Sodium Chloride (Normal Saline) 1,000 mls @ 125 mls/hr IV ASDIRECTED AUGUSTINE Last Admin: 09/02/18 06:00 Dose: 125 mls/hr Insulin Aspart (Novolog) 0 unit SUBCUT ACBREAKFASTANDBED [facility]; Protocol Last Admin: 09/02/18 06:54 Dose: Not Given Insulin Aspart (Novolog) 5 unit SUBCUT TIDAC [facility] Last Admin: 09/02/18 06:54 Dose: Not Given Insulin Glargine (Lantus Solostar) 30 units SUBCUT BEDTIME [facility] Last Admin: 09/01/18 21:50 Dose: 30 units Morphine Sulfate (Morphine) 2 mg IVPUSH Q2H PRN PRN Reason: Pain (severe 7-10) Last Admin: 09/02/18 08:10 Dose: 2 mg Ondansetron HCl (Zofran) 4 mg IVPUSH Q4H PRN PRN Reason: Nausea/Vomiting Last Admin: 09/02/18 06:10 Dose: 4 mg Oxycodone HCl (Oxycodone) 5 mg PO Q4H PRN PRN Reason: Pain (moderate 4-6) Last Admin: 09/01/18 21:53 Dose: 5 mg Sodium Chloride (Saline Flush) 2.5 ml FLUSH ASDIRECTED PRN PRN Reason: Keep Vein Open Last Admin: 08/31/18 16:43 Dose: 2.5 ml Discontinued Medications Diphenhydramine HCl (Benadryl) 50 mg IVPUSH ONETIME ONE Stop: 08/31/18 16:39 Last Admin: 08/31/18 16:43 Dose: 50 mg Sodium Chloride (Normal Saline) 1,000 mls @ 999 mls/hr IV STAT ONE Stop: 08/31/18 17:30 Last Admin: 08/31/18 16:43 Dose: 999 mls/hr Sodium Chloride (Normal Saline) Confirm Administered Dose 20 mls @ as directed .ROUTE .STK-MED ONE Stop: 08/31/18 17:32 Last Admin: 08/31/18 18:04 Dose: 20 mls/hr Sodium Chloride (Normal Saline) 1,000 mls @ 999 mls/hr IV STAT ONE Stop: 08/31/18 19:21 Last Admin: 08/31/18 18:48 Dose: 999 mls/hr Sodium Chloride (Normal Saline) 1,000 mls @ 125 mls/hr IV ASDIRECTED ONE Stop: 09/01/18 04:59 Last Admin: 08/31/18 21:00 Dose: 125 mls/hr Ketorolac Tromethamine (Toradol) 30 mg IVPUSH ONETIME ONE Stop: 08/31/18 18:04 Last Admin: 08/31/18 18:09 Dose: 30 mg Ondansetron HCl (Zofran) 4 mg IVPUSH ONETIME ONE Stop: 08/31/18 16:31 Last Admin: 08/31/18 16:43 Dose: 4 mg Ondansetron HCl (Zofran) 4 mg IVPUSH ONETIME ONE Stop: 08/31/18 18:05 Last Admin: 08/31/18 18:09 Dose: 4 mg Pantoprazole Sodium (Protonix Iv) 80 mg IVPUSH .BOLUS ONE Stop: 08/31/18 17:17 Last Admin: 08/31/18 17:38 Dose: 80 mg Sodium Chloride (Saline Flush) 10 ml FLUSH ASDIRECTED PRN PRN Reason: Keep Vein Open Last Admin: 08/31/18 16:43 Dose: 10 ml - Exam Quality Assessment: No: Supplemental Oxygen General: Alert, Oriented, Cooperative, No Acute Distress, Lethargic HEENT: Pupils Equal, Pupils Reactive, EOMI, Mucous Membr. Moist/[place] Neck: Supple, Trachea Midline Lungs: Clear to Auscultation, Normal Respiratory Effort Cardiovascular: Regular Rate, Regular Rhythm GI/Abdominal Exam: Normal Bowel Sounds, Soft, No Distention, Tender. No: Guarding, Rigid, Rebound Back Exam: Normal Inspection Extremities: Normal Inspection, No Pedal Edema Skin: Warm, Dry, Intact Neurological: No New Focal Deficit Psy/Mental Status: Alert, Normal Affect, Normal Mood - Problem List & Annotations (1) Dehydration SNOMED Code(s): 13838818 Code(s): E86.0 - DEHYDRATION Status: Acute Priority: High Current Visit : Yes (2) Medical non-compliance SNOMED Code(s): 009204083 Code(s): Z91.19 - PATIENT'S NONCOMPLIANCE W OTH MEDICAL TREATMENT AND REGIMEN Status: Chronic Priority: Medium Current Visit: Yes (3) Vomiting SNOMED Code(s): 381137421 Code(s): R11.10 - VOMITING, UNSPECIFIED Status: Acute Priority: High Current Visit: Yes Qualifiers: Vomiting type: unspecified Vomiting Intractability: intractable Nausea presence: with nausea Qualified Code(s): R11.2 - Nausea with vomiting, unspecified (4) Abdominal pain SNOMED Code(s): 22541892 Code(s): R10.9 - UNSPECIFIED ABDOMINAL PAIN Status: Chronic Priority: High Current Visit: Yes Qualifiers: Abdominal location: upper abdomen, unspecified Qualified Code(s): R10.10 - Upper abdominal pain, unspecified (5) Diabetes type 1, uncontrolled SNOMED Code(s): 10854249, 298076951 Code(s): E10.65 - TYPE 1 DIABETES MELLITUS WITH HYPERGLYCEMIA Status: Chronic Priority: Medium Current Visit: Yes Qualifiers: Glycemic state: with hyperglycemia Qualified Code(s): E10.65 - Type 1 diabetes mellitus with hyperglycemia (6) Diabetic gastroparesis SNOMED Code(s): 929350865 Code(s): E11.43 - TYPE 2 DIABETES W DIABETIC AUTONOMIC (POLY)NEUROPATHY; K31.84 - GASTROPARESIS Status: Chronic Priority: Medium Current Visit: Yes (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 The patient has been exhibiting positive narcotic usage behavior is. He has been keeping close track of the time. He has been somewhat lethargic and has been still wondering pain medications. I explained to the patient that with gastroparesis narcotics seem to worsen this. The patient will be kept on normal saline. He is being kept nothing by mouth. The patient has had episodes of hypoglycemia and this has been corrected with the use of D50 ampule 1. The patient has been encouraged to ambulate. I've ordered repeat laboratory studies. We'll continue with DVT prophylaxis. The patient's hemoglobin A1c was at 13.7 which shows very poor control with his type 1 diabetes. The patient should be appropriate for discharge in 1-2 days.
[2018-09-02] MEDS ORDERED: 50% Dextrose in Water 50 ML Syringe IVPUSH ONE (16:35)
[2018-09-02] MEDS: Insulin Glargine,Human Rec. Analog 100 Units/ML 3 ML Pen SUBCUT SCH (21:46)
[2018-09-03] MEDS: oxyCODONE 5 MG Tab PO PRN ×2 (04:27→19:01)
[2018-09-03] MEDS: diphenhydrAMINE 50 MG/ML SDV IVPUSH PRN ×3 (04:28→23:52)
[2018-09-03] MEDS ORDERED: 50% Dextrose in Water 50 ML Syringe IVPUSH ONE ×2 (06:10→14:09)
[2018-09-03] MEDS: Sodium Chloride 0.9% 1,000 ML IV SCH (06:21)
[2018-09-03] MEDS: Morphine 2 MG/ML Syringe IVPUSH PRN (06:36)
[2018-09-03] MEDS: Ondansetron 4 MG/2 ML SDV IVPUSH PRN (06:39)
[2018-09-03] MEDS: Enoxaparin 40 MG/0.4 ML Syringe SUBCUT SCH (06:43)
[2018-09-03] MEDS: Insulin Aspart 100 Units/ML 3 ML Pen SUBCUT SCH ×6 (08:14→23:48)
[2018-09-03] MEDS: Metoclopramide 10 MG/2 ML SDV IVPUSH PRN ×2 (09:53→16:09)
[2018-09-03] MEDS: Ketorolac 30 MG/ML SDV IVPUSH PRN ×3 (09:57→23:50)
--- NOTE | 2018-09-03 10:00 | PCM.PN ---
- General Info Date of Service: 09/03/18 Admission Dx/Problem (Free Text): Admission Diagnosis/Problem Admission Diagnosis/Problem Dehydration, acute on chronic abdominal pain, intractable nausea and vomiting Subjective Update: The patient is a poorly controlled type I diabetic who had presented to the emergency department secondary to dehydration, acute on chronic abdominal pain with intractable nausea and vomiting. Today the patient says that he is still in significant pain although he has been sleeping most of the days. Patient is still having vomiting. He has denied any fever or chills. 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 Functional Status: Reports: Pain Controlled - Review of Systems General: Reports: Weakness HEENT: Reports: No Symptoms Pulmonary: Reports: No Symptoms Cardiovascular: Reports: No Symptoms Gastrointestinal: Reports: Abdominal Pain (Generalized), Nausea, Vomiting Genitourinary: Reports: No Symptoms Musculoskeletal: Reports: No Symptoms Skin: Reports: No Symptoms Neurological: Reports: No Symptoms Psychiatric: Reports: No Symptoms - Patient Data Vitals - Most Recent: Last Vital Signs Temp 36.5 C 09/03/18 04:00 Pulse 100 09/03/18 04:00 Resp 16 09/03/18 04:00 BP 106/54 L 09/03/18 04:00 Pulse Ox 97 09/03/18 04:00 Weight - Most Recent: 50.712 kg I&O - Last 24 Hours: Intake & Output 09/02/18 09/03/18 09/03/18 22:59 06:59 14:59 Intake Total 1329 2392 Output Total 1300 2426 Balance 29 -34 Lab Results Last 24 Hours: Laboratory Results - last 24 hr 09/02/18 09/02/18 09/02/18 Range/Units 11:23 16:27 19:44 POC Glucose 73 58 L 153 H (60-110) mg/dL 09/02/18 09/03/18 09/03/18 Range/Units 21:06 05:56 06:19 POC Glucose 149 H 57 L 59 L (60-110) mg/dL 09/03/18 Range/Units 07:30 POC Glucose 156 H (60-110) mg/dL Med Orders - Current: Current Medications Acetaminophen (Tylenol) 650 mg PO Q6H PRN PRN Reason: Pain (mild 1-3) Diphenhydramine HCl (Benadryl) 25 mg IVPUSH Q6H PRN PRN Reason: Itching Last Admin: 09/03/18 04:28 Dose: 25 mg Enoxaparin Sodium (Lovenox) 40 mg SUBCUT Q24H [facility] Last Admin: 09/03/18 06:43 Dose: 40 mg Sodium Chloride (Normal Saline) 1,000 mls @ 125 mls/hr IV ASDIRECTED [facility] Last Admin: 09/03/18 06:21 Dose: 125 mls/hr Insulin Aspart (Novolog) 0 unit SUBCUT ACBREAKFASTANDBED [facility]; Protocol Last Admin: 09/03/18 08:14 Dose: Not Given Insulin Aspart (Novolog) 5 unit SUBCUT TIDAC [facility] Last Admin: 09/03/18 08:15 Dose: Not Given Insulin Glargine (Lantus Solostar) 30 units SUBCUT BEDTIME [facility] Last Admin: 09/02/18 21:46 Dose: 30 units Ketorolac Tromethamine (Toradol) 30 mg IVPUSH Q6H PRN PRN Reason: Abdominal Pain Stop: 09/08/18 07:42 Last Admin: 09/03/18 09:57 Dose: 30 mg Metoclopramide HCl (Reglan) 5 mg IVPUSH Q4H PRN PRN Reason: Nausea/Vomiting Last Admin: 09/03/18 09:53 Dose: 5 mg Oxycodone HCl (Oxycodone) 5 mg PO Q4H PRN PRN Reason: Pain (moderate 4-6) Last Admin: 09/03/18 04:27 Dose: 5 mg Sodium Chloride (Saline Flush) 2.5 ml FLUSH ASDIRECTED PRN PRN Reason: Keep Vein Open Last Admin: 08/31/18 16:43 Dose: 2.5 ml Discontinued Medications Dextrose/Water (Dextrose 50% In Water) 50 ml IVPUSH ONETIME ONE Stop: 09/02/18 16:36 Last Admin: 09/02/18 16:46 Dose: 50 ml Dextrose/Water (Dextrose 50% In Water) 50 ml IVPUSH ONETIME ONE Stop: 09/03/18 06:11 Last Admin: 09/03/18 06:24 Dose: 50 ml Diphenhydramine HCl (Benadryl) 50 mg IVPUSH ONETIME ONE Stop: 08/31/18 16:39 Last Admin: 08/31/18 16:43 Dose: 50 mg Sodium Chloride (Normal Saline) 1,000 mls @ 999 mls/hr IV STAT ONE Stop: 08/31/18 17:30 Last Admin: 08/31/18 16:43 Dose: 999 mls/hr Sodium Chloride (Normal Saline) Confirm Administered Dose 20 mls @ as directed .ROUTE .STK-MED ONE Stop: 08/31/18 17:32 Last Admin: 08/31/18 18:04 Dose: 20 mls/hr Sodium Chloride (Normal Saline) 1,000 mls @ 999 mls/hr IV STAT ONE Stop: 08/31/18 19:21 Last Admin: 08/31/18 18:48 Dose: 999 mls/hr Sodium Chloride (Normal Saline) 1,000 mls @ 125 mls/hr IV ASDIRECTED ONE Stop: 09/01/18 04:59 Last Admin: 08/31/18 21:00 Dose: 125 mls/hr Ketorolac Tromethamine (Toradol) 30 mg IVPUSH ONETIME ONE Stop: 08/31/18 18:04 Last Admin: 08/31/18 18:09 Dose: 30 mg Morphine Sulfate (Morphine) 2 mg IVPUSH Q2H PRN PRN Reason: Pain (severe 7-10) Last Admin: 09/03/18 06:36 Dose: 2 mg Ondansetron HCl (Zofran) 4 mg IVPUSH ONETIME ONE Stop: 08/31/18 16:31 Last Admin: 08/31/18 16:43 Dose: 4 mg Ondansetron HCl (Zofran) 4 mg IVPUSH ONETIME ONE Stop: 08/31/18 18:05 Last Admin: 08/31/18 18:09 Dose: 4 mg Ondansetron HCl (Zofran) 4 mg IVPUSH Q4H PRN PRN Reason: Nausea/Vomiting Last Admin: 09/03/18 06:39 Dose: 4 mg Pantoprazole Sodium (Protonix Iv) 80 mg IVPUSH .BOLUS ONE Stop: 08/31/18 17:17 Last Admin: 08/31/18 17:38 Dose: 80 mg Sodium Chloride (Saline Flush) 10 ml FLUSH ASDIRECTED PRN PRN Reason: Keep Vein Open Last Admin: 08/31/18 16:43 Dose: 10 ml - Exam Quality Assessment: No: Supplemental Oxygen General: Alert, Oriented, Cooperative, Mild Distress HEENT: Pupils Equal, Pupils Reactive, EOMI Neck: Supple, Trachea Midline Lungs: Clear to Auscultation, Normal Respiratory Effort Cardiovascular: Regular Rate, Regular Rhythm GI/Abdominal Exam: Normal Bowel Sounds, Soft, No Distention, Tender. No: Guarding, Rigid, Rebound Back Exam: Normal Inspection, Full Range of Motion Extremities: Normal Inspection, No Pedal Edema Skin: Warm, Dry, Intact Neurological: No New Focal Deficit Psy/Mental Status: Alert, Normal Affect, Normal Mood - Problem List & Annotations (1) Vomiting SNOMED Code(s): 408188491 Code(s): R11.10 - VOMITING, UNSPECIFIED Status: Acute Priority: High Current Visit: Yes Qualifiers: Vomiting type: unspecified Vomiting Intractability: intractable Nausea presence: with nausea Qualified Code(s): R11.2 - Nausea with vomiting, unspecified (2) Dehydration SNOMED Code(s): 34400945 Code(s): E86.0 - DEHYDRATION Status: Resolved Priority: High Current Visit: Yes (3) Medical non-compliance SNOMED Code(s): 728378023 Code(s): Z91.19 - PATIENT'S NONCOMPLIANCE W OTH MEDICAL TREATMENT AND REGIMEN Status: Chronic Priority: Medium Current Visit: Yes (4) Abdominal pain SNOMED Code(s): 74519008 Code(s): R10.9 - UNSPECIFIED ABDOMINAL PAIN Status: Chronic Priority: High Current Visit: Yes Qualifiers: Abdominal location: upper abdomen, unspecified Qualified Code(s): R10.10 - Upper abdominal pain, unspecified (5) Diabetes type 1, uncontrolled SNOMED Code(s): 91282325, 930981294 Code(s): E10.65 - TYPE 1 DIABETES MELLITUS WITH HYPERGLYCEMIA Status: Chronic Priority: Medium Current Visit: Yes Qualifiers: Glycemic state: with hyperglycemia Qualified Code(s): E10.65 - Type 1 diabetes mellitus with hyperglycemia (6) Diabetic gastroparesis SNOMED Code(s): 082714016 Code(s): E11.43 - TYPE 2 DIABETES W DIABETIC AUTONOMIC (POLY)NEUROPATHY; K31.84 - GASTROPARESIS Status: Chronic Priority: Medium Current Visit: Yes (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 I discontinued the morphine due to its kinetic inhibitory action. I placed the patient on ketorolac 30 mg IV every 6 hours as needed for pain. Also I discontinue the Zofran as this is not been working is extruded in place the patient on Reglan 10 mg IV every 6 hours as needed for nausea and vomiting. I' ve also ordered abdominal x-ray flat and upright to help rule out any free air and or bowel obstruction. The patient has been at times hypoglycemic requiring resuscitation with D50. Patient has not been eating and I have advanced the diet to clear liquids as tolerated. I've ordered repeat laboratory studies. We will continue with DVT prophylaxis currently. The patient should be appropriate for discharge in 1-2 days depending upon his symptoms.
[2018-09-03] MEDS: D5 1/2 NS w/ 20 mEq/L KCl 1,000 ML IV SCH ×2 (14:20→21:18)
--- NOTE | 2018-09-03 14:27 | CR ---
Indication: Abdominal pain and vomiting Technique: KUB 2 view Comparison: None Findings/Impression: : Soft tissues: No suspicious calcifications to suggest kidney or ureteral stones. No sign of free air. No sign of soft tissue mass. Bowel: Bowel pattern is within normal limits. Bones: Unremarkable for age. Dictated by Jackelin Clay MD @ Sep 03 2018 2:25PM Signed by Dr. Jackelin Clay @ Sep 03 2018 2:25PM
[2018-09-03 14:54] LABS: CHLORIDE,CL 105 mmol/L (98-107); SODIUM,NA 140 mmol/L (136-148)
--- NOTE | 2018-09-03 17:22 | CT ---
INDICATION: Intractable nausea, vomiting TECHNIQUE: CT Abdomen and pelvis without i.v. contrast. Coronal and sagittal reformats were obtained. COMPARISON: None FINDINGS: Lower chest: Mild centrilobular ground-glass infiltrates present in the posterior basal segment of the right lower lobe. Liver: Unremarkable. Spleen: Unremarkable. Pancreas: Unremarkable. Gallbladder: Faint layering densities are present in the gallbladder which may be due to sludge or noncalcified gallstones. Kidney: Severe right pelvicaliectasis and hydroureter noted. Adrenal: Unremarkable. Bowel: Unremarkable. The appendix is normal in appearance and size. Vascular: Unremarkable. Lymph: Unremarkable. Peritoneum: Unremarkable. No pneumoperitoneum is seen. No significant ascites is noted. Pelvis: There is massive distention of the bladder present measuring 11 x 15 x 20 cm (AP x RL x CC). Soft tissue: Unremarkable. Bone: Unremarkable for age. IMPRESSIONS: 1. There is massive distention of the bladder present measuring 11 x 15 x 20 cm (AP x RL x CC). 2. Severe right pelvicaliectasis and hydroureter noted. This may be due to obstruction of the distal right ureter by the distended bladder or due to severe vesical ureteral reflux. 3. Mild centrilobular ground-glass infiltrates present in the posterior basal segment of the right lower lobe. Findings may be due to mild bronchiolitis. 4. Faint layering densities are present in the gallbladder which may be due to sludge or noncalcified gallstones. Dictated by Gary Carty MD @ 09/03/2018 5:20:24 PM Please note that all CT scans at this facility use dose modulation, iterative reconstruction, and/or weight-based dosing when appropriate to reduce radiation dose to as low as reasonably achievable. Dictated by: Gary Carty MD @ 09/03/2018 17:20:26 (Electronically Signed)
[2018-09-03] MEDS ORDERED: Insulin Glargine,Human Rec. Analog 100 Units/ML 3 ML Pen SUBCUT SCH (21:00)
[2018-09-04] MEDS: Insulin Aspart 100 Units/ML 3 ML Pen SUBCUT SCH ×3 (04:45→12:22)
[2018-09-04] MEDS: D5 1/2 NS w/ 20 mEq/L KCl 1,000 ML IV SCH ×2 (04:48→12:21)
[2018-09-04 06:16] LABS: CHLORIDE,CL 103 mmol/L (98-107); SODIUM,NA 137 mmol/L (136-148)
[2018-09-04] MEDS: Enoxaparin 40 MG/0.4 ML Syringe SUBCUT SCH (06:23)
[2018-09-04] MEDS: Metoclopramide 10 MG/2 ML SDV IVPUSH PRN (06:35)
[2018-09-04] MEDS: diphenhydrAMINE 50 MG/ML SDV IVPUSH PRN (06:44)
[2018-09-04] MEDS: Ketorolac 30 MG/ML SDV IVPUSH PRN (08:52)
--- NOTE | 2018-09-04 11:14 | PCM.DCSUM1 ---
Discharge Summary - Discharge Data Discharge Date: 09/04/18 Discharge Disposition: Home, Self-Care 01 Condition: Good - Discharge Diagnosis/Problem(s) (1) Vomiting SNOMED Code(s): 989166109 ICD Code: R11.10 - VOMITING, UNSPECIFIED Status: Chronic Priority: High Current Visit: Yes Qualifiers: Vomiting type: unspecified Vomiting Intractability: intractable Nausea presence: with nausea Qualified Code(s): R11.2 - Nausea with vomiting, unspecified (2) Dehydration SNOMED Code(s): 89655174 ICD Code: E86.0 - DEHYDRATION Status: Resolved Priority: High Current Visit: Yes (3) Medical non-compliance SNOMED Code(s): 533336437 ICD Code: Z91.19 - PATIENT'S NONCOMPLIANCE W OTH MEDICAL TREATMENT AND REGIMEN Status: Chronic Priority: Medium Current Visit: Yes (4) Abdominal pain SNOMED Code(s): 43208324 ICD Code: R10.9 - UNSPECIFIED ABDOMINAL PAIN Status: Chronic Priority: High Current Visit: Yes Qualifiers: Abdominal location: upper abdomen, unspecified Qualified Code(s): R10.10 - Upper abdominal pain, unspecified (5) Diabetes type 1, uncontrolled SNOMED Code(s): 90418596, 979800628 ICD Code: E10.65 - TYPE 1 DIABETES MELLITUS WITH HYPERGLYCEMIA Status: Chronic Priority: Medium Current Visit: Yes Qualifiers: Glycemic state: with hyperglycemia Qualified Code(s): E10.65 - Type 1 diabetes mellitus with hyperglycemia (6) Diabetic gastroparesis SNOMED Code(s): 873043403 ICD Code: E11.43 - TYPE 2 DIABETES W DIABETIC AUTONOMIC (POLY)NEUROPATHY; K31.84 - GASTROPARESIS Status: Chronic Priority: Medium Current Visit: Yes (7) 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 The patient has had multiple admissions for poorly controlled diabetes mellitus type 2, nausea and vomiting due to gastroparesis and a previous history of pyelonephritis with urinary retention and hydronephrosis. The patient was admitted to hospitalization and the patient was fluid resuscitated with regards to his nausea and vomiting. The patient did have pain control accomplished with the use of narcotic pain control. The patient also became somewhat noncooperative with size changer and nursing staff. The patient had been sleeping most the time during hospitalization. The patient also has been lethargic and sleeping even though he says he is in severe pain. He has been exhibiting medication seeking behavior. The patient's primary concern is that he has no money, no job and is almost out of medication. I've asked the nursing staff to assist the patient in obtaining medications, noncontrolled, in order to assist his symptoms. CT scan of the patient's abdomen was obtained on August 28, 2018 and he was noted to have severe right pelvic caleiectasis and hydroureter. The patient was also noted to have massive distention of the bladder measuring 11 x 15 x 20 cm along with hydroureter. The patient had urinary catheter placed and urology was consulted with recommendation to retain urinary catheter and follow up with urology next week. The patient at this time was thought to have neurogenic bladder resulting in retention. The patient has been strongly counseled with regards to maintaining good glycemic control and control of his diabetes. Again, the patient has been uncooperative with size changer and staff. The patient has been recommended to continue with gastroparesis diet and use of Zofran to help control his nausea. The patient should also follow-up with gastroenterology as scheduled. Further, the patient for follow-up with his primary care physician. The patient also has been recommended to apply for Medicaid as he has complicated diabetes and this will require frequent medical visits with providers. The patient has been recommended to continue with his diabetic diet as tolerated. He is to follow-up as indicated. He is to have activity as tolerated. The patient otherwise has been hemodynamically stable and he is discharged from hospitalization with the recommendations listed above. - Patient Instructions Diet: Diabetic Diet Activity: As Tolerated - Discharge Plan *PRESCRIPTION DRUG MONITORING PROGRAM REVIEWED*: No *COPY OF PRESCRIPTION DRUG MONITORING REPORT IN PATIENT HANY: No Prescriptions/Med Rec: Insulin Glarg,Human.Rec.Analog [Lantus Solostar] 12 units SUBCUT BEDTIME #5 pen Insulin Glargine,Hum.Rec.Anlog [Lantus Solostar] 30 unit SQ BEDTIME #3 pen Ondansetron [Zofran ODT] 4 mg PO Q6H PRN #10 tab.dis PRN Reason: Nausea/Vomiting oxyCODONE HCl/Acetaminophen [Percocet 5-325 mg Tablet] 1 each PO Q6H PRN #20 tablet PRN Reason: Abdominal Pain Home Medications: Home Meds Insulin Aspart [NovoLOG] 5 units SUBCUT TIDAC 07/23/18 [History] Insulin Glarg,Human.Rec.Analog [Lantus Solostar] 12 units SUBCUT BEDTIME #5 pen 09/04/18 [Rx] Insulin Glargine,Hum.Rec.Anlog [Lantus Solostar] 30 unit SQ BEDTIME #3 pen 09/04 [Rx] Ondansetron [Zofran ODT] 4 mg PO Q6H PRN #10 tab.dis 09/04/18 [Rx] oxyCODONE HCl/Acetaminophen [Percocet 5-325 mg Tablet] 1 each PO Q6H PRN #20 tablet 09/04/18 [Rx] Oxygen Therapy Mode: Room Air Patient Handouts: Indwelling Urinary Catheter Insertion, Nausea and Vomiting, Adult, [id number], Urodynamic Testing, [id number], Preventing Diabetes Mellitus Complications, Gastroparesis Referrals: Lynsey Palm NP [Nurse Practitioner] - 09/08/18 3:30 pm Zahra Rodriguez MD [Physician] - - Discharge Summary/Plan Comment DC Time >30 min.: Yes - General Info Date of Service: 09/04/18 Admission Dx/Problem (Free Text: Admission Diagnosis/Problem Admission Diagnosis/Problem Dehydration, acute on chronic abdominal pain, intractable nausea and vomiting, neurogenic bladder Subjective Update: Patient has been lethargic. The patient has not been vomiting. He says that Zofran is been helping him. Functional Status: Reports: Pain Controlled - Review of Systems General: Reports: No Symptoms HEENT: Reports: No Symptoms Pulmonary: Reports: No Symptoms Cardiovascular: Reports: No Symptoms Gastrointestinal: Reports: No Symptoms Genitourinary: Reports: No Symptoms Musculoskeletal: Reports: No Symptoms Skin: Reports: No Symptoms Neurological: Reports: No Symptoms Psychiatric: Reports: No Symptoms - Patient Data Vitals - Most Recent: Last Vital Signs Temp 37 C 09/04/18 10:23 Pulse 94 09/04/18 08:00 Resp 18 09/04/18 04:00 BP 143/99 H 09/04/18 08:00 Pulse Ox 100 09/04/18 08:00 Weight - Most Recent: 50.712 kg I&O - Last 24 hours: Intake & Output 09/03/18 09/04/18 09/04/18 22:59 06:59 14:59 Intake Total 100 1800 Output Total 1800 1900 Balance -1700 -100 Lab Results - Last 24 hrs: Laboratory Results - last 24 hr 09/03/18 09/03/18 09/03/18 Range/Units 11:25 14:04 14:28 WBC (4.0-11.0) K/uL RBC (4.50-5.90) M/uL Hgb (13.0-17.0) g/dL Hct (38.0-50.0) % MCV (80.0-98.0) fL MCH (27.0-32.0) pg MCHC (31.0-37.0) g/dL RDW Std Deviation (28.0-62.0) fl RDW Coeff of Erika (11.0-15.0) % Plt Count (150-400) K/uL MPV (7.40-12.00) fL Neut % (Auto) (48.0-80.0) % Lymph % (Auto) (16.0-40.0) % [place] % (Auto) (0.0-15.0) % Eos % (Auto) (0.0-7.0) % Baso % (Auto) (0.0-1.5) % Neut # (Auto) (1.4-5.7) K/uL Lymph # (Auto) (0.6-2.4) K/uL [place] # (Auto) (0.0-0.8) K/uL Eos # (Auto) (0.0-0.7) K/uL Baso # (Auto) (0.0-0.1) K/uL Nucleated RBC % /100WBC Nucleated RBCs # K/uL Sodium 140 (136-148) mmol/L Potassium 3.2 L (3.5-5.1) mmol/L Chloride 105 (98-107) mmol/L Carbon Dioxide 24.0 (21.0-32.0) mmol/L BUN 13 (7.0-18.0) mg/dL Creatinine 0.5 L (0.8-1.3) mg/dL Est Cr Clr Drug Dosing 169.04 mL/min Estimated GFR (MDRD) > 60.0 ml/min Glucose 295 H (74-106) mg/dL POC Glucose 91 49 L (60-110) mg/dL Calcium 7.9 L (8.5-10.1) mg/dL 09/03/18 09/03/18 09/03/18 Range/Units 16:35 20:28 23:42 WBC (4.0-11.0) K/uL RBC (4.50-5.90) M/uL Hgb (13.0-17.0) g/dL Hct (38.0-50.0) % MCV (80.0-98.0) fL MCH (27.0-32.0) pg MCHC (31.0-37.0) g/dL RDW Std Deviation (28.0-62.0) fl RDW Coeff of Erika (11.0-15.0) % Plt Count (150-400) K/uL MPV (7.40-12.00) fL Neut % (Auto) (48.0-80.0) % Lymph % (Auto) (16.0-40.0) % [place] % (Auto) (0.0-15.0) % Eos % (Auto) (0.0-7.0) % Baso % (Auto) (0.0-1.5) % Neut # (Auto) (1.4-5.7) K/uL Lymph # (Auto) (0.6-2.4) K/uL [place] # (Auto) (0.0-0.8) K/uL Eos # (Auto) (0.0-0.7) K/uL Baso # (Auto) (0.0-0.1) K/uL Nucleated RBC % /100WBC Nucleated RBCs # K/uL Sodium (136-148) mmol/L Potassium (3.5-5.1) mmol/L Chloride (98-107) mmol/L Carbon Dioxide (21.0-32.0) mmol/L BUN (7.0-18.0) mg/dL Creatinine (0.8-1.3) mg/dL Est Cr Clr Drug Dosing mL/min Estimated GFR (MDRD) ml/min Glucose (74-106) mg/dL POC Glucose 168 H 198 H 201 H (60-110) mg/dL Calcium (8.5-10.1) mg/dL 09/04/18 09/04/18 09/04/18 Range/Units 04:39 05:00 05:00 WBC 8.11 (4.0-11.0) K/uL RBC 4.39 L (4.50-5.90) M/uL Hgb 11.3 L (13.0-17.0) g/dL Hct 34.3 L (38.0-50.0) % MCV 78.1 L (80.0-98.0) fL MCH 25.7 L (27.0-32.0) pg MCHC 32.9 (31.0-37.0) g/dL RDW Std Deviation 37.6 (28.0-62.0) fl RDW Coeff of Erika 13 (11.0-15.0) % Plt Count 306 (150-400) K/uL MPV 9.10 (7.40-12.00) fL Neut % (Auto) 76.5 (48.0-80.0) % Lymph % (Auto) 16.5 (16.0-40.0) % [place] % (Auto) 6.8 (0.0-15.0) % Eos % (Auto) 0.1 (0.0-7.0) % Baso % (Auto) 0.1 (0.0-1.5) % Neut # (Auto) 6.2 H (1.4-5.7) K/uL Lymph # (Auto) 1.3 (0.6-2.4) K/uL [place] # (Auto) 0.6 (0.0-0.8) K/uL Eos # (Auto) 0.0 (0.0-0.7) K/uL Baso # (Auto) 0.0 (0.0-0.1) K/uL Nucleated RBC % 0.0 /100WBC Nucleated RBCs # 0 K/uL Sodium 137 (136-148) mmol/L Potassium 3.0 L (3.5-5.1) mmol/L Chloride 103 (98-107) mmol/L Carbon Dioxide 24.5 (21.0-32.0) mmol/L BUN 8 (7.0-18.0) mg/dL Creatinine 0.5 L (0.8-1.3) mg/dL Est Cr Clr Drug Dosing 169.04 mL/min Estimated GFR (MDRD) > 60.0 ml/min Glucose 191 H (74-106) mg/dL POC Glucose 175 H (60-110) mg/dL Calcium 8.3 L (8.5-10.1) mg/dL 09/04/18 Range/Units 08:29 WBC (4.0-11.0) K/uL RBC (4.50-5.90) M/uL Hgb (13.0-17.0) g/dL Hct (38.0-50.0) % MCV (80.0-98.0) fL MCH (27.0-32.0) pg MCHC (31.0-37.0) g/dL RDW Std Deviation (28.0-62.0) fl RDW Coeff of Erika (11.0-15.0) % Plt Count (150-400) K/uL MPV (7.40-12.00) fL Neut % (Auto) (48.0-80.0) % Lymph % (Auto) (16.0-40.0) % [place] % (Auto) (0.0-15.0) % Eos % (Auto) (0.0-7.0) % Baso % (Auto) (0.0-1.5) % Neut # (Auto) (1.4-5.7) K/uL Lymph # (Auto) (0.6-2.4) K/uL [place] # (Auto) (0.0-0.8) K/uL Eos # (Auto) (0.0-0.7) K/uL Baso # (Auto) (0.0-0.1) K/uL Nucleated RBC % /100WBC Nucleated RBCs # K/uL Sodium (136-148) mmol/L Potassium (3.5-5.1) mmol/L Chloride (98-107) mmol/L Carbon Dioxide (21.0-32.0) mmol/L BUN (7.0-18.0) mg/dL Creatinine (0.8-1.3) mg/dL Est Cr Clr Drug Dosing mL/min Estimated GFR (MDRD) ml/min Glucose (74-106) mg/dL POC Glucose 233 H (60-110) mg/dL Calcium (8.5-10.1) mg/dL Med Orders - Current: Current Medications Acetaminophen (Tylenol) 650 mg PO Q6H PRN PRN Reason: Pain (mild 1-3) Diphenhydramine HCl (Benadryl) 25 mg IVPUSH Q6H PRN PRN Reason: Itching Last Admin: 09/04/18 06:44 Dose: 25 mg Enoxaparin Sodium (Lovenox) 40 mg SUBCUT Q24H [facility] Last Admin: 09/04/18 06:23 Dose: 40 mg Potassium Chloride/Dextrose/Sod Cl (D5 1/2 Ns W/ 20 Meq/L Kcl) 1,000 mls @ 150 mls/hr IV ASDIRECTED [facility] Last Admin: 09/04/18 04:48 Dose: 150 mls/hr Insulin Aspart (Novolog) 0 unit SUBCUT Q4H [facility]; Protocol Last Admin: 09/04/18 08:51 Dose: 2 unit Insulin Glargine (Lantus Solostar) 12 units SUBCUT BEDTIME [facility] Last Admin: 09/03/18 20:35 Dose: 12 units Ketorolac Tromethamine (Toradol) 30 mg IVPUSH Q6H PRN PRN Reason: Abdominal Pain Stop: 09/08/18 07:42 Last Admin: 09/04/18 08:52 Dose: 30 mg Metoclopramide HCl (Reglan) 5 mg IVPUSH Q4H PRN PRN Reason: Nausea/Vomiting Last Admin: 09/04/18 06:35 Dose: 5 mg Oxycodone HCl (Oxycodone) 5 mg PO Q4H PRN PRN Reason: Pain (moderate 4-6) Last Admin: 09/03/18 19:01 Dose: 5 mg Sodium Chloride (Saline Flush) 2.5 ml FLUSH ASDIRECTED PRN PRN Reason: Keep Vein Open Last Admin: 08/31/18 16:43 Dose: 2.5 ml Discontinued Medications Dextrose/Water (Dextrose 50% In Water) 50 ml IVPUSH ONETIME ONE Stop: 09/02/18 16:36 Last Admin: 09/02/18 16:46 Dose: 50 ml Dextrose/Water (Dextrose 50% In Water) 50 ml IVPUSH ONETIME ONE Stop: 09/03/18 06:11 Last Admin: 09/03/18 06:24 Dose: 50 ml Dextrose/Water (Dextrose 50% In Water) 50 ml IVPUSH ONETIME ONE Stop: 09/03/18 14:10 Last Admin: 09/03/18 14:19 Dose: 50 ml Diphenhydramine HCl (Benadryl) 50 mg IVPUSH ONETIME ONE Stop: 08/31/18 16:39 Last Admin: 08/31/18 16:43 Dose: 50 mg Sodium Chloride (Normal Saline) 1,000 mls @ 999 mls/hr IV STAT ONE Stop: 08/31/18 17:30 Last Admin: 08/31/18 16:43 Dose: 999 mls/hr Sodium Chloride (Normal Saline) Confirm Administered Dose 20 mls @ as directed .ROUTE .STK-MED ONE Stop: 08/31/18 17:32 Last Admin: 08/31/18 18:04 Dose: 20 mls/hr Sodium Chloride (Normal Saline) 1,000 mls @ 999 mls/hr IV STAT ONE Stop: 08/31/18 19:21 Last Admin: 08/31/18 18:48 Dose: 999 mls/hr Sodium Chloride (Normal Saline) 1,000 mls @ 125 mls/hr IV ASDIRECTED ONE Stop: 09/01/18 04:59 Last Admin: 08/31/18 21:00 Dose: 125 mls/hr Sodium Chloride (Normal Saline) 1,000 mls @ 125 mls/hr IV ASDIRECTED [facility] Last Admin: 09/03/18 06:21 Dose: 125 mls/hr Insulin Aspart (Novolog) 0 unit SUBCUT ACBREAKFASTANDBED [facility]; Protocol Last Admin: 09/03/18 08:14 Dose: Not Given Insulin Aspart (Novolog) 5 unit SUBCUT TIDAC [facility] Last Admin: 09/03/18 11:51 Dose: Not Given Insulin Glargine (Lantus Solostar) 30 units SUBCUT BEDTIME [facility] Last Admin: 09/02/18 21:46 Dose: 30 units Ketorolac Tromethamine (Toradol) 30 mg IVPUSH ONETIME ONE Stop: 08/31/18 18:04 Last Admin: 08/31/18 18:09 Dose: 30 mg Morphine Sulfate (Morphine) 2 mg IVPUSH Q2H PRN PRN Reason: Pain (severe 7-10) Last Admin: 09/03/18 06:36 Dose: 2 mg Ondansetron HCl (Zofran) 4 mg IVPUSH ONETIME ONE Stop: 08/31/18 16:31 Last Admin: 08/31/18 16:43 Dose: 4 mg Ondansetron HCl (Zofran) 4 mg IVPUSH ONETIME ONE Stop: 08/31/18 18:05 Last Admin: 08/31/18 18:09 Dose: 4 mg Ondansetron HCl (Zofran) 4 mg IVPUSH Q4H PRN PRN Reason: Nausea/Vomiting Last Admin: 09/03/18 06:39 Dose: 4 mg Pantoprazole Sodium (Protonix Iv) 80 mg IVPUSH .BOLUS ONE Stop: 08/31/18 17:17 Last Admin: 08/31/18 17:38 Dose: 80 mg Sodium Chloride (Saline Flush) 10 ml FLUSH ASDIRECTED PRN PRN Reason: Keep Vein Open Last Admin: 08/31/18 16:43 Dose: 10 ml - Exam Quality Assessment: Denies: Supplemental Oxygen General: Reports: Alert, Oriented, Lethargic HEENT: Reports: Pupils Equal, Pupils Reactive, EOMI, Mucous Membr. Moist/[place] Neck: Reports: Supple, Trachea Midline Lungs: Reports: Clear to Auscultation, Normal Respiratory Effort Cardiovascular: Reports: Regular Rate, Regular Rhythm GI/Abdominal Exam: Normal Bowel Sounds, Soft, Non-Tender, No Distention Back Exam: Reports: Normal Inspection, Full Range of Motion Extremities: Normal Inspection, Normal Range of Motion, No Pedal Edema Skin: Reports: Warm, Dry, Intact Neurological: Reports: No New Focal Deficit Psy/Mental Status: Reports: Alert, Normal Affect, Normal Mood
[2018-09-04 12:55] VITALS: BP 129/91
== END 2018-09-04 15:40 | disposition home or self-care (01) | DRG 74 ==
LOC: MW.ED 16:10 → MW.MS 18:55 → OBSVTOIN 09-02 16:28 → MW.MS 09-02 16:29
PROVIDERS: ADMIT Internal Medicine; ATTEND Internal Medicine
DX: E10.43 Type 1 diabetes mellitus with diabetic autonomic (poly)neuropathy (principal); E86.0 Dehydration; F41.9 Anxiety disorder, unspecified; F32.9 Major depressive disorder, single episode, unspecified; E10.65 Type 1 diabetes mellitus with hyperglycemia; K31.84 Gastroparesis; E10.40 Type 1 diabetes mellitus with diabetic neuropathy, unspecified; Z87.891 Personal history of nicotine dependence; Z91.19 Patient's noncompliance with other medical treatment and regimen; Z79.4 Long term (current) use of insulin
CPT/HCPCS: 36415; 36600; 51702; 74019; 74019-26; 74176; 74176-26; 80048; 80053; 80305-QW; 81001; 82150; 82803; 82962; 83036; 83690; 85025; 96361; 96372; 96374; 96375; 96376; 99285-25; A9270-GY; C9113; G0378; J1200; J1650; J1815-GY; J1885; J2270; J2405; J2765; J3480; J7040; J7060

== ENCOUNTER 2018-09-05 22:11 | Emergency (ER) | payer MEDICAID ==
[2018-09-05] MEDS ORDERED: Sodium Chloride 0.9% 2,000 ML IV ONE (22:57)
[2018-09-05] MEDS ORDERED: Ondansetron 4 MG/2 ML SDV IVPUSH ONE (22:57)
--- NOTE | 2018-09-05 23:01 | EDM.PDOC ---
ED HPI GENERAL MEDICAL PROBLEM - General Chief Complaint: Abdominal Pain Stated Complaint: PT HAS NECK AND BACK PAIN Time Seen by Provider: 09/05/18 22:54 - History of Present Illness INITIAL COMMENTS - FREE TEXT/NARRATIVE: HISTORY AND PHYSICAL: History of present illness: Patient's 22-year-old male with history of diabetes medical noncompliance chronic abdominal pain who presents with a concern of abdominal pain nausea and vomiting he was just discharged is currently on Zofran and oxycodone at home. He denies fever chills or other complaints Review of systems: As per history of present illness and below otherwise all systems reviewed and negative. Past medical history: As per history of present illness and as reviewed below otherwise noncontributory. Surgical history: As per history of present illness and as reviewed below otherwise noncontributory. Social history: No reported history of drug or alcohol abuse. Family history: As per history of present illness and as reviewed below otherwise noncontributory. Physical exam: HEENT: Atraumatic, normocephalic, pupils reactive, negative for conjunctival pallor or scleral icterus, mucous membranes moist, throat clear, neck supple, nontender, trachea midline. Lungs: Clear to auscultation, breath sounds equal bilaterally, chest nontender. Heart: S1S2, regular, negative for clicks, rubs, or JVD. Abdomen: Soft, nondistended, no localized tenderness Negative for masses or hepatosplenomegaly. Negative for costovertebral tenderness. Pelvis: Stable nontender. Genitourinary: Deferred. Rectal: Deferred. Extremities: Atraumatic, negative for cords or calf pain. Neurovascular unremarkable. Neuro: Awake, alert, oriented. Cranial nerves II through XII unremarkable. Cerebellum unremarkable. Motor and sensory unremarkable throughout. Exam nonfocal. Diagnostics: CBC CMP ABG lipase UA urine drug screen abdominal series with chest x-ray Therapeutics: Saline 2 L bolus Zofran 4 mg IV Impression: #1 chronic abdominal pain #2 medical noncompliance #3 diabetes Definitive disposition and diagnosis as appropriate pending reevaluation and review of above. Abdomen Pain Score (Numeric/FACES): 10 - Related Data Allergies Allergy/AdvReac Type Severity Reaction Status Date / Time No Known Allergies Allergy Verified 09/05/18 22:46 Home Meds: Home Meds Insulin Aspart [NovoLOG] 5 units SUBCUT TIDAC 07/23/18 [History] Insulin Glarg,Human.Rec.Analog [Lantus Solostar] 12 units SUBCUT BEDTIME #5 pen 09/04/18 [Rx] Insulin Glargine,Hum.Rec.Anlog [Lantus Solostar] 30 unit SQ BEDTIME #3 pen 09/04 [Rx] Ondansetron [Zofran ODT] 4 mg PO Q6H PRN #10 tab.dis 09/04/18 [Rx] oxyCODONE HCl/Acetaminophen [Percocet 5-325 mg Tablet] 1 each PO Q6H PRN #20 tablet 09/04/18 [Rx] Past Medical History - Past Health History Medical/Surgical History: Denies Medical/Surgical History HEENT History: Reports: Other (See Below) Other HEENT History: ear ache Cardiovascular History: Reports: None Respiratory History: Reports: None Gastrointestinal History: Reports: Irritable Bowel Syndrome Other Gastrointestinal History: gastropharesis Genitourinary History: Reports: Pyelonephritis Musculoskeletal History: Reports: Fracture Other Musculoskeletal History: Elbow long time ago Neurological History: Reports: None Psychiatric History: Reports: Anxiety, Depression Endocrine/Metabolic History: Reports: Diabetes, Type I Other Endocrine/Metabolic History: non-compliant to DM medications Hematologic History: Reports: None Oncologic (Cancer) History: Reports: None Dermatologic History: Reports: Other (See Below) Other Dermatologic History: dry itchy skin - Infectious Disease History Infectious Disease History: Reports: None - Past Surgical History Male Surgical History: Reports: None Endocrine Surgical History: Reports: None Dermatological Surgical History: Reports: None Social & Family History - Family History Family Medical History: Noncontributory OBGYN: Reports: Endocrine/Metabolic: Reports: Diabetes, Type I, Diabetes, type II - Tobacco Use Smoking Status *Q: Never Smoker - Caffeine Use Caffeine Use: Reports: Coffee, Energy Drinks, Soda - Recreational Drug Use Recreational Drug Use: No - Living Situation & Occupation Living situation: Reports: Single, with Family Occupation: Unemployed ED ROS GENERAL - Review of Systems Review Of Systems: ROS reveals no pertinent complaints other than HPI. ED EXAM, GENERAL - Physical Exam Exam: See Below (See dictation) Course - Vital Signs Last Recorded V/S: Last Vital Signs Temp 36.8 C 09/05/18 22:57 Pulse 104 H 09/05/18 22:57 Resp 18 09/05/18 22:57 BP 141/95 H 09/05/18 22:57 Pulse Ox 100 09/05/18 22:57 - Orders/Labs/Meds Orders: Active Orders 24 hr Category Date Time Status Abdomen Series w Chest 1V [CR] Stat Exams 09/05/18 22:57 Taken DRUG SCREEN, URINE [URCHEM] Stat Lab 09/05/18 22:57 Ordered UA RFX YADY AND CULT IF INDIC [URIN] Stat Lab 09/05/18 22:57 Ordered Labs: Laboratory Tests 09/05/18 09/05/18 09/06/18 Range/Units 23:20 23:20 00:22 WBC 8.69 (4.0-11.0) K/uL RBC 4.86 (4.50-5.90) M/uL Hgb 12.9 L (13.0-17.0) g/dL Hct 38.5 (38.0-50.0) % MCV 79.2 L (80.0-98.0) fL MCH 26.5 L (27.0-32.0) pg MCHC 33.5 (31.0-37.0) g/dL RDW Std Deviation 39.1 (28.0-62.0) fl RDW Coeff of Erika 14 (11.0-15.0) % Plt Count 328 (150-400) K/uL MPV 8.90 (7.40-12.00) fL Neut % (Auto) 82.9 H (48.0-80.0) % Lymph % (Auto) 13.8 L (16.0-40.0) % [place] % (Auto) 2.9 (0.0-15.0) % Eos % (Auto) 0.3 (0.0-7.0) % Baso % (Auto) 0.1 (0.0-1.5) % Neut # (Auto) 7.2 H (1.4-5.7) K/uL Lymph # (Auto) 1.2 (0.6-2.4) K/uL [place] # (Auto) 0.3 (0.0-0.8) K/uL Eos # (Auto) 0.0 (0.0-0.7) K/uL Baso # (Auto) 0.0 (0.0-0.1) K/uL Nucleated RBC % 0.0 /100WBC Nucleated RBCs # 0 K/uL ABG pH 7.400 (7.35-7.45) ABG pCO2 29 L (35-45) mmHG ABG pO2 88 (75-100) mmHG ABG HCO3 18 L (22-26) mEq/L ABG Total CO2 16.7 ABG Base Excess -5.8 L (-2.0-2.0) Sodium 137 (136-148) mmol/L Potassium 3.4 L (3.5-5.1) mmol/L Chloride 100 (98-107) mmol/L Carbon Dioxide 20.8 L (21.0-32.0) mmol/L BUN 14 (7.0-18.0) mg/dL Creatinine 0.6 L (0.8-1.3) mg/dL Est Cr Clr Drug Dosing 144.90 mL/min Estimated GFR (MDRD) > 60.0 ml/min Glucose 172 H (74-106) mg/dL Calcium 9.1 (8.5-10.1) mg/dL Total Bilirubin 0.5 (0.2-1.0) mg/dL AST 7 L (15-37) IU/L ALT 11 L (14-63) IU/L Alkaline Phosphatase 102 (46-116) U/L Total Protein 7.9 (6.4-8.2) g/dL Albumin 3.2 L (3.4-5.0) g/dL Globulin 4.7 H (2.6-4.0) g/dL Albumin/Globulin Ratio 0.7 L (0.9-1.6) Lipase 41 L (73-393) U/L Meds: Medications Discontinued Medications Generic Name Dose Route Start Last Admin Trade Name Freq PRN Reason Stop Dose Admin Sodium Chloride 2,000 mls @ 999 mls/hr 09/05/18 22:57 09/05/18 23:23 Normal Saline IV 09/06/18 00:57 999 mls/hr STAT ONE Administration Ondansetron HCl 4 mg 09/05/18 22:57 09/05/18 23:23 Zofran IVPUSH 09/05/18 22:58 4 mg ONETIME ONE Administration Departure - Departure Time of Disposition: 01:13 Disposition: Home, Self-Care 01 Condition: Good Clinical Impression: Chronic abdominal pain, Medical non-compliance - Discharge Information Referrals: PCP,None [Primary Care Provider] - Forms: ED Department Discharge Additional Instructions: The following information is given to patients seen in the emergency department who are being discharged to home. This information is to outline your options for follow-up care. We provide all patients seen in our emergency department with a follow-up referral. The need for follow-up, as well as the timing and circumstances, are variable depending upon the specifics of your emergency department visit. If you don't have a primary care physician on staff, we will provide you with a referral. We always advise you to contact your personal physician following an emergency department visit to inform them of the circumstance of the visit and for follow-up with them and/or the need for any referrals to a consulting specialist. The emergency department will also refer you to a specialist when appropriate. This referral assures that you have the opportunity for followup care with a specialist. All of these measure are taken in an effort to provide you with optimal care, which includes your followup. Under all circumstances we always encourage you to contact your private physician who remains a resource for coordinating your care. When calling for followup care, please make the office aware that this follow-up is from your recent emergency room visit. If for any reason you are refused follow-up, please contact the [facility] emergency department at and asked to speak to the emergency department charge nurse. Continue current meds follow private medical doctor return as needed as discussed - My Orders Last 24 Hours: My Active Orders 09/05/18 22:57 Abdomen Series w Chest 1V [CR] Stat DRUG SCREEN, URINE [URCHEM] Stat UA RFX YADY AND CULT IF INDIC [URIN] Stat - Assessment/Plan Last 24 Hours: My Active Orders 09/05/18 22:57 Abdomen Series w Chest 1V [CR] Stat DRUG SCREEN, URINE [URCHEM] Stat UA RFX YADY AND CULT IF INDIC [URIN] Stat
[2018-09-05 23:53] LABS: CHLORIDE,CL 100 mmol/L (98-107); SODIUM,NA 137 mmol/L (136-148)
[2018-09-06 01:21] VITALS: BP 134/89
--- NOTE | 2018-09-06 01:34 | CR ---
INDICATION: abdominal pain Comparison: 09/03/2018. The bowel gas pattern appears normal. No free intraperitoneal air is identified. There is no apparent organomegaly or soft tissue mass. No suspicious calcifications are identified. Visualized bones show no significant findings. Accompanying chest radiograph shows the lungs to be clear. IMPRESSION: No acute intra-abdominal abnormality identified. CLAUDIA GRUBBS MD [facility] Dictated by: Wellington Grubbs MD @ 09/06/2018 01:32:17 (Electronically Signed)
== END 2018-09-06 01:25 | disposition home or self-care (01) ==
LOC: MW.ED 22:11
DX: R10.9 Unspecified abdominal pain (principal); M54.5 Low back pain; G89.29 Other chronic pain; E10.9 Type 1 diabetes mellitus without complications; Z91.14 Patient's other noncompliance with medication regimen; Z79.4 Long term (current) use of insulin
CPT/HCPCS: 36415; 36600; 74022; 80053; 80305; 81001; 81003; 82803; 82962; 83690; 85025; 87086; 87088; 87186; 96361; 96374; 99284; J2405; J7040

== ENCOUNTER 2018-09-08 21:12 | Emergency (ER) | payer MEDICAID, OTHER ==
[2018-09-08] MEDS ORDERED: Ondansetron 4 MG/2 ML SDV IVPUSH ONE (21:33)
[2018-09-08] MEDS ORDERED: Pantoprazole 40 MG Vial IVPUSH ONE (21:33)
[2018-09-08] MEDS ORDERED: Sodium Chloride 0.9% 20 ML ONE (21:38)
--- NOTE | 2018-09-08 21:41 | EDM.PDOC ---
ED HPI GENERAL MEDICAL PROBLEM - General Chief Complaint: Diabetic Complaint Stated Complaint: PT VOMITING Time Seen by Provider: 09/08/18 21:27 - History of Present Illness INITIAL COMMENTS - FREE TEXT/NARRATIVE: HISTORY AND PHYSICAL: History of present illness: Patient is a 22-year-old male who is well-known to our emergency department with history of diabetes gastroparesis GI bleed medical noncompliance was been seen numerous times in emergency department and admitted on multiple occasions to the hospital. He presents today with chronic abdominal pain and vomiting coffee ground material today. There's been no fever chills shortness of breath chest pain or other concern he is here with his mother today in along with his mother we had a lengthy conversation regarding the frustration Alexandr has experience with regard to his medical condition and his chronic pain. Review of systems: As per history of present illness and below otherwise all systems reviewed and negative. Past medical history: As per history of present illness and as reviewed below otherwise noncontributory. Surgical history: As per history of present illness and as reviewed below otherwise noncontributory. Social history: No reported history of drug or alcohol abuse. Family history: As per history of present illness and as reviewed below otherwise noncontributory. Physical exam: HEENT: Atraumatic, normocephalic, pupils reactive, negative for conjunctival pallor or scleral icterus, mucous membranes dry, throat clear, neck supple, nontender, trachea midline. Lungs: Clear to auscultation, breath sounds equal bilaterally, chest nontender. Heart: S1S2, regular, negative for clicks, rubs, or JVD. Abdomen: Soft, nondistended, no localized tenderness. Negative for masses or hepatosplenomegaly. Negative for costovertebral tenderness. Pelvis: Stable nontender. Genitourinary: Deferred. Rectal: Deferred. Extremities: Atraumatic, negative for cords or calf pain. Neurovascular unremarkable. Neuro: Awake, alert, oriented. Cranial nerves II through XII unremarkable. Cerebellum unremarkable. Motor and sensory unremarkable throughout. Exam nonfocal. Diagnostics: CBC CMP and lipase PT/INR chest x-ray VBG Therapeutics: Saline 2 L bolus Zofran 4 mg IV Protonix 80 mg IV Impression: #1 upper GI bleed #2 diabetes #3 history of gastroparesis #4 history of chronic abdominal pain #5 history of medical noncompliance Definitive disposition and diagnosis as appropriate pending reevaluation and review of above. abdominal and penile Pain Score (Numeric/FACES): 10 - Related Data Allergies Allergy/AdvReac Type Severity Reaction Status Date / Time No Known Allergies Allergy Verified 09/08/18 21:32 Home Meds: Home Meds Insulin Aspart [NovoLOG] 5 units SUBCUT TIDAC 07/23/18 [History] Insulin Glarg,Human.Rec.Analog [Lantus Solostar] 12 units SUBCUT BEDTIME #5 pen 09/04/18 [Rx] Insulin Glargine,Hum.Rec.Anlog [Lantus Solostar] 30 unit SQ BEDTIME #3 pen 09/04 [Rx] Ondansetron [Zofran ODT] 4 mg PO Q6H PRN #10 tab.dis 09/04/18 [Rx] oxyCODONE HCl/Acetaminophen [Percocet 5-325 mg Tablet] 1 each PO Q6H PRN #20 tablet 09/04/18 [Rx] Past Medical History - Past Health History Medical/Surgical History: Denies Medical/Surgical History HEENT History: Reports: Other (See Below) Other HEENT History: ear ache Cardiovascular History: Reports: None Respiratory History: Reports: None Gastrointestinal History: Reports: Irritable Bowel Syndrome Other Gastrointestinal History: gastropharesis Genitourinary History: Reports: Pyelonephritis Musculoskeletal History: Reports: Fracture Other Musculoskeletal History: Elbow long time ago Neurological History: Reports: None Psychiatric History: Reports: Anxiety, Depression Endocrine/Metabolic History: Reports: Diabetes, Type I Other Endocrine/Metabolic History: non-compliant to DM medications Hematologic History: Reports: None Oncologic (Cancer) History: Reports: None Dermatologic History: Reports: Other (See Below) Other Dermatologic History: dry itchy skin - Infectious Disease History Infectious Disease History: Reports: None - Past Surgical History Male Surgical History: Reports: None Endocrine Surgical History: Reports: None Dermatological Surgical History: Reports: None Social & Family History - Family History Family Medical History: Noncontributory OBGYN: Reports: Endocrine/Metabolic: Reports: Diabetes, Type I, Diabetes, type II - Caffeine Use Caffeine Use: Reports: Coffee, Energy Drinks, Soda - Living Situation & Occupation Living situation: Reports: Single, with Family Occupation: Unemployed ED ROS GENERAL - Review of Systems Review Of Systems: ROS reveals no pertinent complaints other than HPI. ED EXAM GENERAL NO PERIP PULSE - Physical Exam Exam: See Below (See dictation) Course - Vital Signs Last Recorded V/S: Last Vital Signs Temp 36.4 C 09/08/18 21:14 Pulse 96 09/08/18 21:14 Resp 18 09/08/18 21:14 BP 157/103 H 09/08/18 21:14 Pulse Ox 100 09/08/18 21:14 - Orders/Labs/Meds Orders: Active Orders 24 hr Category Date Time Status BLOOD GAS VENOUS [BG] Stat Lab 09/08/18 21:36 Ordered CBC WITH AUTO DIFF [HEME] Stat Lab 09/08/18 21:36 Ordered COMPREHENSIVE METABOLIC PN,CMP [CHEM] Stat Lab 09/08/18 21:36 Ordered LIPASE [CHEM] Stat Lab 09/08/18 21:36 Ordered Sodium Chloride 0.9% [Normal Saline] 2,000 ml Med 09/08/18 21:45 Active IV ASDIRECTED Medication Orders Sodium Chloride (Normal Saline) 2,000 mls @ 999 mls/hr IV ASDIRECTED AUGUSTINE Meds: Medications Generic Name Dose Route Start Last Admin Trade Name Freq PRN Reason Stop Dose Admin Sodium Chloride 2,000 mls @ 999 mls/hr 09/08/18 21:45 Normal Saline IV ASDIRECTED AUGUSTINE Discontinued Medications Generic Name Dose Route Start Last Admin Trade Name Freq PRN Reason Stop Dose Admin Ondansetron HCl 4 mg 09/08/18 21:33 Zofran IVPUSH 09/08/18 21:34 ONETIME ONE Pantoprazole Sodium 80 mg 09/08/18 21:33 Protonix Iv IVPUSH 09/08/18 21:34 BOLUS ONE Departure - Departure Time of Disposition: 21:41 Disposition: DC/Tfer to Acute Hospital 02 Condition: Good Clinical Impression: Hyperglycemia, Medical non-compliance, Chronic abdominal pain, Diabetic gastroparesis, Upper GI bleed - Discharge Information Referrals: PCP,None [Primary Care Provider] - - My Orders Last 24 Hours: My Active Orders 09/08/18 21:36 BLOOD GAS VENOUS [BG] Stat CBC WITH AUTO DIFF [HEME] Stat COMPREHENSIVE METABOLIC PN,CMP [CHEM] Stat LIPASE [CHEM] Stat 09/08/18 21:45 Sodium Chloride 0.9% [Normal Saline] 2,000 ml IV ASDIRECTED - Assessment/Plan Last 24 Hours: My Active Orders 09/08/18 21:36 BLOOD GAS VENOUS [BG] Stat CBC WITH AUTO DIFF [HEME] Stat COMPREHENSIVE METABOLIC PN,CMP [CHEM] Stat LIPASE [CHEM] Stat 09/08/18 21:45 Sodium Chloride 0.9% [Normal Saline] 2,000 ml IV ASDIRECTED
[2018-09-08] MEDS ORDERED: Sodium Chloride 0.9% 20 ML SDV FLUSH ONE (21:45)
[2018-09-08] MEDS ORDERED: Sodium Chloride 0.9% 2,000 ML IV SCH (21:45)
[2018-09-08 22:04] LABS: BLOOD UREA NITROGEN,BUN 9 mg/dL (7.0-18.0); CHLORIDE,CL 99 mmol/L (98-107); GLUCOSE RANDOM 379 mg/dL (74-106); LIPASE 125 U/L (73-393); POTASSIUM,K 3.4 mmol/L (3.5-5.1); SODIUM,NA 136 mmol/L (136-148)
[2018-09-08] MEDS ORDERED: diphenhydrAMINE 50 MG/ML SDV IVPUSH ONE (22:16)
[2018-09-08 22:26] VITALS: BP 198/124; PULSE 102
--- NOTE | 2018-09-08 22:37 | CR ---
INDICATION: Continuous vomiting TECHNIQUE: Chest radiograph 1 view COMPARISON: 09/06/2018 FINDINGS: Mediastinum: The mediastinum is normal in appearance. The heart silhouette is normal in size and morphology. Lung: Both lungs are unremarkable in appearance. No sign of pleural effusion seen. No pneumothorax is identified. IMPRESSION: 1. No acute cardiopulmonary disease is seen. Dictated by: Gary Carty MD @ 09/08/2018 22:36:00 (Electronically Signed)
== END 2018-09-08 23:19 ==
LOC: MW.ED 21:12
DX: E10.43 Type 1 diabetes mellitus with diabetic autonomic (poly)neuropathy (principal); K31.84 Gastroparesis; K92.2 Gastrointestinal hemorrhage, unspecified; E10.65 Type 1 diabetes mellitus with hyperglycemia; Z91.19 Patient's noncompliance with other medical treatment and regimen; Z79.899 Other long term (current) drug therapy
CPT/HCPCS: 36415; 71045; 80053; 82803; 82962; 83690; 85025; 85610; 93005; 96361; 96374; 96375; 99285; C9113; J1200; J2405; J7040

== ENCOUNTER 2018-09-15 00:08 | Emergency (ER) | payer MEDICAID, OTHER ==
[2018-09-15] MEDS ORDERED: Sodium Chloride 0.9% 10 ML Syringe FLUSH PRN (00:16)
[2018-09-15] MEDS ORDERED: Sodium Chloride 0.9% 2.5 ML Syringe FLUSH PRN (00:16)
[2018-09-15] MEDS ORDERED: Pantoprazole 40 MG Vial IVPUSH ONE (00:20)
[2018-09-15] MEDS ORDERED: diphenhydrAMINE 50 MG/ML SDV IVPUSH ONE (00:20)
[2018-09-15] MEDS ORDERED: Sodium Chloride 0.9% 1,000 ML IV ONE (00:20)
[2018-09-15] MEDS ORDERED: Ondansetron 4 MG/2 ML SDV IVPUSH ONE (00:20)
[2018-09-15] MEDS ORDERED: LORazepam 2 MG/ML SDV IVPUSH ONE (00:23)
--- NOTE | 2018-09-15 00:29 | EDM.PDOC ---
ED HPI GENERAL MEDICAL PROBLEM - General Chief Complaint: Abdominal Pain Stated Complaint: STOMACH ULCER PAIN Time Seen by Provider: 09/15/18 00:14 - History of Present Illness INITIAL COMMENTS - FREE TEXT/NARRATIVE: HISTORY AND PHYSICAL: History of present illness: The patient is a 22-year-old male with a history of type 1 diabetes which is controlled irregularly and who has a history of medication noncompliance, gastroparesis GI bleeding and chronic abdominal pain who has been in our emergency department numerous times in the past with multiple admissions over the last several months and most recently was seen here last week and transferred to [facility] for further care of these issues; according to the computer he was seen here on September 08 and was transferred to [facility] and he says he was discharged home on September 11. He says that they did do an endoscopy there and they treated him with IV medications and discharged him home with Zofran for nausea and vomiting and Percocet for pain. He was not started on any PPI or antacids but he tells me that his endoscopy showed that he had an ulcer. The patient does have a long- standing history of vomiting with coffee-ground emesis secondary to the gastroparesis but he has had upper GI bleeds in the past. The patient's last CAT scan was performed here on September 03 and it is unclear from the patient's history if he had further imaging at [facility]. We will work on getting those records. The patient says that when he went home on Friday he was doing well and she did well through the weekend although he slept a lot and did not eat and drink very much due to fatigue and generalized weakness. He says that earlier yesterday, Friday, he started having upper abdominal pain, which is his usual site of pain, and he had some nausea and vomiting. When asked what color the vomit was she said that he did look and he doesn't know. He says that he is not able to keep his medications down. He has no fevers chills chest pain or shortness of breath. The patient has an indwelling Clements catheter that he said was placed at [facility] and he has a long-standing history of a neurogenic bladder and he had urinary retention. The patient tells me he has not taken his pain medications in the last 12-24 hours either due to the fact that he has been sleeping a lot and then the pain medication was making him nauseated. On my questioning the patient cannot quantitate the amount of vomiting or the character or color of it but he says it is not as much as the past Please see below for more information obtained from [facility] Review of systems: As per history of present illness and below otherwise all systems reviewed and negative. Past medical history: As per history of present illness and as reviewed below otherwise noncontributory. Surgical history: As per history of present illness and as reviewed below otherwise noncontributory. Social history: No reported history of drug or alcohol abuse. Family history: As per history of present illness and as reviewed below otherwise noncontributory. Physical exam: General: Well-developed well-nourished thin man who is nontoxic and vital signs are noted by me. He is very exaggerated with exam but is moving easily without distress. He has an overall pale appearance. He seems very anxious on evaluation HEENT: Atraumatic, normocephalic, pupils reactive, negative for conjunctival pallor or scleral icterus, mucous membranes moist, throat clear, neck supple, nontender, trachea midline. Lungs: Clear to auscultation, breath sounds equal bilaterally, chest nontender. Heart: S1S2, regular rate and slightly tachycardic on my evaluation but no overt murmurs Abdomen: Soft, nondistended, bowel sounds are hypoactive and there is no tympany on percussion. There is diffuse abdominal tenderness more in the upper abdomen on even mild palpation which is very exaggerated on my assessment. There is no specific area of tenderness and there is no involuntary guarding or rebound. Negative for masses or hepatosplenomegaly. Negative for costovertebral tenderness. Pelvis: Stable nontender. Genitourinary: Deferred. Clements catheter with leg bag is seen Rectal: Deferred. Extremities: Atraumatic, negative for cords or calf pain. Neurovascular unremarkable. Full range of motion without defects or deficits Neuro: Awake, alert, oriented. Cranial nerves II through XII unremarkable. Cerebellum unremarkable. Motor and sensory unremarkable throughout. Exam nonfocal. Diagnostics: CBC CMP venous blood gas INR UA with reflex UDS serum ketones amylase lipase abdominal x-rays urine culture Therapeutics: IV fluids Zofran Benadryl Protonix Ativan subcutaneous insulin We will attempt to get copies of any procedures and imaging performed at [facility] done last week. The patient specifically tells me he had an endoscopy and was told he had an ulcer but he was not started on any medication including a PPI which seems somewhat unusual. I will attempt to get that report. Information on this last admission was obtained from [facility] including the endoscopy report. He was performed by Dr. Lora and the results revealed a linear esophageal ulceration which was nonbleeding and was consistent with reflux disease and there was some active gastritis seen along the greater curvature the stomach but no gross ulcers were appreciated. Biopsies were taken According to the discharge summary from [facility] in [place] he was felt to have vomiting from gastroparesis, acute gastritis, and microcytic anemia and was sent home on Reglan 3 times a day Protonix twice a day iron as well as his regular insulin dosing and Sapphire 10/325 for pain management. When I go through this med list with the patient he says that he did not get the Protonix but he did get the Reglan and the pain pills. The biopsy pathology was sent from [facility] of the gastric biopsies performed during the EGD and they were negative for H. pylori and only showed mild chronic inflammation. Patient's hemoglobin A1c was 11.6. It was stressed to the patient that he needs to follow-up in the clinic to better control his diabetes and to deal with his chronic issues of gastroparesis and pain management. Impression: Upper abdominal pain-acute on chronic- and vomiting, improved; constipation; UTI with indwelling Clements and history of neurogenic bladder History of gastroparesis, chronic abdominal pain, gastritis and esophageal ulceration secondary to reflux disease Definitive disposition and diagnosis as appropriate pending reevaluation and review of above. abdomen Pain Score (Numeric/FACES): 10 - Related Data Allergies Allergy/AdvReac Type Severity Reaction Status Date / Time No Known Allergies Allergy Verified 09/15/18 00:23 Home Meds: Home Meds Insulin Aspart [NovoLOG] 5 units SUBCUT TIDAC 07/23/18 [History] Ferrous Sulfate [Iron] 325 mg PO BID 09/15/18 [History] Hydrocodone/Acetaminophen [Hydrocodon-Acetaminophn 10-325] 10 - 325 mg PO Q4HR PRN 09/15/18 [History] Insulin Lispro Prot/Lispro [HumaLOG Mix 75-25] 78 units SUBCUT BID 09/15/18 [ History] Metoclopramide HCl [Reglan] 10 mg PO TID 09/15/18 [History] Pantoprazole [ProTONIX] 40 mg PO BID 09/15/18 [History] Past Medical History - Past Health History Medical/Surgical History: Denies Medical/Surgical History HEENT History: Reports: Other (See Below) Other HEENT History: ear ache Cardiovascular History: Reports: None Respiratory History: Reports: None Gastrointestinal History: Reports: Irritable Bowel Syndrome Other Gastrointestinal History: gastropharesis Genitourinary History: Reports: Pyelonephritis, Other (See Below) Other Genitourinary History: hydronephrosis; with indwelling urinary catheter Musculoskeletal History: Reports: Fracture Other Musculoskeletal History: Elbow long time ago Neurological History: Reports: None Psychiatric History: Reports: Anxiety, Depression Endocrine/Metabolic History: Reports: Diabetes, Type I Other Endocrine/Metabolic History: non-compliant to DM medications Hematologic History: Reports: None Oncologic (Cancer) History: Reports: None Dermatologic History: Reports: Other (See Below) Other Dermatologic History: dry itchy skin - Infectious Disease History Infectious Disease History: Reports: None - Past Surgical History HEENT Surgical History: Reports: None GI Surgical History: Reports: None Male Surgical History: Reports: None Endocrine Surgical History: Reports: None Musculoskeletal Surgical History: Reports: None Dermatological Surgical History: Reports: None Social & Family History - Family History Family Medical History: Noncontributory OBGYN: Reports: Endocrine/Metabolic: Reports: Diabetes, Type I, Diabetes, type II - Caffeine Use Caffeine Use: Reports: None - Living Situation & Occupation Living situation: Reports: Single, with Family Occupation: Unemployed ED ROS GENERAL - Review of Systems Review Of Systems: ROS reveals no pertinent complaints other than HPI. ED EXAM, GENERAL - Physical Exam Exam: See Below (See dictation) Course - Vital Signs Last Recorded V/S: Last Vital Signs Temp 36.1 C 09/15/18 00:18 Pulse 136 H 09/15/18 00:18 Resp 17 09/15/18 00:18 BP 119/66 09/15/18 00:18 Pulse Ox 100 09/15/18 00:18 - Orders/Labs/Meds Orders: Active Orders 24 hr Category Date Time Status Blood Glucose Check, Bedside [RC] ONETIME Care 09/15/18 00:15 Active CULTURE URINE [RM] Stat Lab 09/15/18 01:23 Received Sodium Chloride 0.9% [Saline Flush] Med 09/15/18 00:16 Active 10 ml FLUSH ASDIRECTED PRN Sodium Chloride 0.9% [Saline Flush] Med 09/15/18 00:16 Active 2.5 ml FLUSH ASDIRECTED PRN Saline Lock Insert [OM.PC] Stat Oth 09/15/18 00:15 Ordered Medication Orders Sodium Chloride (Saline Flush) 10 ml FLUSH ASDIRECTED PRN PRN Reason: Keep Vein Open Last Admin: 09/15/18 00:37 Dose: 10 ml Sodium Chloride (Saline Flush) 2.5 ml FLUSH ASDIRECTED PRN PRN Reason: Keep Vein Open Last Admin: 09/15/18 00:37 Dose: 2.5 ml Labs: Laboratory Tests 09/15/18 09/15/18 09/15/18 Range/Units 00:14 00:20 00:20 WBC 8.70 (4.0-11.0) K/uL RBC 4.69 (4.50-5.90) M/uL Hgb 12.4 L (13.0-17.0) g/dL Hct 37.7 L (38.0-50.0) % MCV 80.4 (80.0-98.0) fL MCH 26.4 L (27.0-32.0) pg MCHC 32.9 (31.0-37.0) g/dL RDW Std Deviation 41.9 (28.0-62.0) fl RDW Coeff of Erika 15 (11.0-15.0) % Plt Count 233 (150-400) K/uL MPV 9.30 (7.40-12.00) fL Neut % (Auto) 79.8 (48.0-80.0) % Lymph % (Auto) 14.8 L (16.0-40.0) % [place] % (Auto) 5.1 (0.0-15.0) % Eos % (Auto) 0.1 (0.0-7.0) % Baso % (Auto) 0.2 (0.0-1.5) % Neut # (Auto) 6.9 H (1.4-5.7) K/uL Lymph # (Auto) 1.3 (0.6-2.4) K/uL [place] # (Auto) 0.4 (0.0-0.8) K/uL Eos # (Auto) 0.0 (0.0-0.7) K/uL Baso # (Auto) 0.0 (0.0-0.1) K/uL INR 0.92 VBG pH (7.31-7.41) VBG pCO2 (35-45) mmHG VBG pO2 (30-40) mmHG VBG HCO3 (22-30) mEq/L VBG Total CO2 (41-51) mmol/L VBG Base Excess (-3.0-3.0) Sodium (136-148) mmol/L Potassium (3.5-5.1) mmol/L Chloride (98-107) mmol/L Carbon Dioxide (21.0-32.0) mmol/L BUN (7.0-18.0) mg/dL Creatinine (0.8-1.3) mg/dL Est Cr Clr Drug Dosing mL/min Estimated GFR (MDRD) ml/min Glucose (74-106) mg/dL POC Glucose 229 H (60-110) mg/dL Calcium (8.5-10.1) mg/dL Total Bilirubin (0.2-1.0) mg/dL AST (15-37) IU/L ALT (14-63) IU/L Alkaline Phosphatase (46-116) U/L Total Protein (6.4-8.2) g/dL Albumin (3.4-5.0) g/dL Globulin (2.6-4.0) g/dL Albumin/Globulin Ratio (0.9-1.6) Amylase (25-115) U/L Lipase (73-393) U/L Urine Color Urine Appearance Urine pH (5.0-8.0) Ur Specific [place] (1.001-1.035) Urine Protein (NEGATIVE) mg/dL Urine Glucose (UA) (NEGATIVE) mg/dL Urine Ketones (NEGATIVE) mg/dL Urine Occult Blood (NEGATIVE) Urine Nitrite (NEGATIVE) Urine Bilirubin (NEGATIVE) Urine Ictotest Urine Urobilinogen (<2.0) EU/dL Ur Leukocyte Esterase (NEGATIVE) Urine RBC (0-2/HPF) Urine WBC (0-5/HPF) Ur Epithelial Cells (NONE-FEW) Urine Bacteria (NEGATIVE) Urine Mucus (NONE-MOD) Urine Opiates Screen (NEGATIVE) Ur Oxycodone Screen (NEGATIVE) Urine Methadone Screen (NEGATIVE) Ur Barbiturates Screen (NEGATIVE) Ur Phencyclidine Scrn (NEGATIVE) Ur Amphetamine Screen (NEGATIVE) U Methamphetamines Scrn (NEGATIVE) U Benzodiazepines Scrn (NEGATIVE) U Cocaine Metab Screen (NEGATIVE) U Marijuana (THC) Screen (NEGATIVE) Ketones (NEG) 09/15/18 09/15/18 09/15/18 Range/Units 00:20 00:20 00:20 WBC (4.0-11.0) K/uL RBC (4.50-5.90) M/uL Hgb (13.0-17.0) g/dL Hct (38.0-50.0) % MCV (80.0-98.0) fL MCH (27.0-32.0) pg MCHC (31.0-37.0) g/dL RDW Std Deviation (28.0-62.0) fl RDW Coeff of Erika (11.0-15.0) % Plt Count (150-400) K/uL MPV (7.40-12.00) fL Neut % (Auto) (48.0-80.0) % Lymph % (Auto) (16.0-40.0) % [place] % (Auto) (0.0-15.0) % Eos % (Auto) (0.0-7.0) % Baso % (Auto) (0.0-1.5) % Neut # (Auto) (1.4-5.7) K/uL Lymph # (Auto) (0.6-2.4) K/uL [place] # (Auto) (0.0-0.8) K/uL Eos # (Auto) (0.0-0.7) K/uL Baso # (Auto) (0.0-0.1) K/uL INR VBG pH 7.48 H (7.31-7.41) VBG pCO2 35 (35-45) mmHG VBG pO2 40 (30-40) mmHG VBG HCO3 26 (22-30) mEq/L VBG Total CO2 23 L (41-51) mmol/L VBG Base Excess 2.8 (-3.0-3.0) Sodium 136 (136-148) mmol/L Potassium 4.3 (3.5-5.1) mmol/L Chloride 98 (98-107) mmol/L Carbon Dioxide 26.2 (21.0-32.0) mmol/L BUN 17 (7.0-18.0) mg/dL Creatinine 0.7 L (0.8-1.3) mg/dL Est Cr Clr Drug Dosing 114.29 mL/min Estimated GFR (MDRD) > 60.0 ml/min Glucose 248 H (74-106) mg/dL POC Glucose (60-110) mg/dL Calcium 9.8 (8.5-10.1) mg/dL Total Bilirubin 0.3 (0.2-1.0) mg/dL AST 6 L (15-37) IU/L ALT 8 L (14-63) IU/L Alkaline Phosphatase 99 (46-116) U/L Total Protein 8.1 (6.4-8.2) g/dL Albumin 2.8 L (3.4-5.0) g/dL Globulin 5.3 H (2.6-4.0) g/dL Albumin/Globulin Ratio 0.5 L (0.9-1.6) Amylase 20 L (25-115) U/L Lipase 33 L (73-393) U/L Urine Color Urine Appearance Urine pH (5.0-8.0) Ur Specific [place] (1.001-1.035) Urine Protein (NEGATIVE) mg/dL Urine Glucose (UA) (NEGATIVE) mg/dL Urine Ketones (NEGATIVE) mg/dL Urine Occult Blood (NEGATIVE) Urine Nitrite (NEGATIVE) Urine Bilirubin (NEGATIVE) Urine Ictotest Urine Urobilinogen (<2.0) EU/dL Ur Leukocyte Esterase (NEGATIVE) Urine RBC (0-2/HPF) Urine WBC (0-5/HPF) Ur Epithelial Cells (NONE-FEW) Urine Bacteria (NEGATIVE) Urine Mucus (NONE-MOD) Urine Opiates Screen (NEGATIVE) Ur Oxycodone Screen (NEGATIVE) Urine Methadone Screen (NEGATIVE) Ur Barbiturates Screen (NEGATIVE) Ur Phencyclidine Scrn (NEGATIVE) Ur Amphetamine Screen (NEGATIVE) U Methamphetamines Scrn (NEGATIVE) U Benzodiazepines Scrn (NEGATIVE) U Cocaine Metab Screen (NEGATIVE) U Marijuana (THC) Screen (NEGATIVE) Ketones SMALL H (NEG) 09/15/18 09/15/18 Range/Units 01:23 01:23 WBC (4.0-11.0) K/uL RBC (4.50-5.90) M/uL Hgb (13.0-17.0) g/dL Hct (38.0-50.0) % MCV (80.0-98.0) fL MCH (27.0-32.0) pg MCHC (31.0-37.0) g/dL RDW Std Deviation (28.0-62.0) fl RDW Coeff of Erika (11.0-15.0) % Plt Count (150-400) K/uL MPV (7.40-12.00) fL Neut % (Auto) (48.0-80.0) % Lymph % (Auto) (16.0-40.0) % [place] % (Auto) (0.0-15.0) % Eos % (Auto) (0.0-7.0) % Baso % (Auto) (0.0-1.5) % Neut # (Auto) (1.4-5.7) K/uL Lymph # (Auto) (0.6-2.4) K/uL [place] # (Auto) (0.0-0.8) K/uL Eos # (Auto) (0.0-0.7) K/uL Baso # (Auto) (0.0-0.1) K/uL INR VBG pH (7.31-7.41) VBG pCO2 (35-45) mmHG VBG pO2 (30-40) mmHG VBG HCO3 (22-30) mEq/L VBG Total CO2 (41-51) mmol/L VBG Base Excess (-3.0-3.0) Sodium (136-148) mmol/L Potassium (3.5-5.1) mmol/L Chloride (98-107) mmol/L Carbon Dioxide (21.0-32.0) mmol/L BUN (7.0-18.0) mg/dL Creatinine (0.8-1.3) mg/dL Est Cr Clr Drug Dosing mL/min Estimated GFR (MDRD) ml/min Glucose (74-106) mg/dL POC Glucose (60-110) mg/dL Calcium (8.5-10.1) mg/dL Total Bilirubin (0.2-1.0) mg/dL AST (15-37) IU/L ALT (14-63) IU/L Alkaline Phosphatase (46-116) U/L Total Protein (6.4-8.2) g/dL Albumin (3.4-5.0) g/dL Globulin (2.6-4.0) g/dL Albumin/Globulin Ratio (0.9-1.6) Amylase (25-115) U/L Lipase (73-393) U/L Urine Color YELLOW Urine Appearance CLOUDY Urine pH 6.0 (5.0-8.0) Ur Specific [place] >= 1.030 (1.001-1.035) Urine Protein 100 H (NEGATIVE) mg/dL Urine Glucose (UA) 500 H (NEGATIVE) mg/dL Urine Ketones >=80 (NEGATIVE) mg/dL Urine Occult Blood TRACE-LYSED H (NEGATIVE) Urine Nitrite NEGATIVE (NEGATIVE) Urine Bilirubin SMALL H (NEGATIVE) Urine Ictotest NEGATIVE Urine Urobilinogen 1.0 (<2.0) EU/dL Ur Leukocyte Esterase TRACE H (NEGATIVE) Urine RBC 0-1 (0-2/HPF) Urine WBC 33-36 (0-5/HPF) Ur Epithelial Cells RARE (NONE-FEW) Urine Bacteria 3+ H (NEGATIVE) Urine Mucus LIGHT (NONE-MOD) Urine Opiates Screen POSITIVE (NEGATIVE) Ur Oxycodone Screen NEGATIVE (NEGATIVE) Urine Methadone Screen NEGATIVE (NEGATIVE) Ur Barbiturates Screen NEGATIVE (NEGATIVE) Ur Phencyclidine Scrn NEGATIVE (NEGATIVE) Ur Amphetamine Screen NEGATIVE (NEGATIVE) U Methamphetamines Scrn NEGATIVE (NEGATIVE) U Benzodiazepines Scrn NEGATIVE (NEGATIVE) U Cocaine Metab Screen NEGATIVE (NEGATIVE) U Marijuana (THC) Screen NEGATIVE (NEGATIVE) Ketones (NEG) Meds: Medications Generic Name Dose Route Start Last Admin Trade Name Freq PRN Reason Stop Dose Admin Sodium Chloride 10 ml 09/15/18 00:16 09/15/18 00:37 Saline Flush FLUSH 10 ml ASDIRECTED PRN Administration Keep Vein Open Sodium Chloride 2.5 ml 09/15/18 00:16 09/15/18 00:37 Saline Flush FLUSH 2.5 ml ASDIRECTED PRN Administration Keep Vein Open Discontinued Medications Generic Name Dose Route Start Last Admin Trade Name Freq PRN Reason Stop Dose Admin Diphenhydramine HCl 50 mg 09/15/18 00:20 09/15/18 00:36 Benadryl IVPUSH 09/15/18 00:21 50 mg ONETIME ONE Administration Sodium Chloride 1,000 mls @ 999 mls/hr 09/15/18 00:20 09/15/18 00:36 Normal Saline IV 09/15/18 01:20 999 mls/hr STAT ONE Administration Insulin Human Regular 10 unit 09/15/18 01:42 Novolin R SUBCUT 09/15/18 01:43 ONETIME ONE Protocol Lorazepam 0.5 mg 09/15/18 00:23 09/15/18 00:36 Ativan IVPUSH 09/15/18 00:24 0.5 mg ONETIME ONE Administration Ondansetron HCl 4 mg 09/15/18 00:20 09/15/18 00:36 Zofran IVPUSH 09/15/18 00:21 4 mg ONETIME ONE Administration Pantoprazole Sodium 80 mg 09/15/18 00:20 09/15/18 00:37 Protonix Iv IVPUSH 09/15/18 00:21 80 mg .BOLUS ONE Administration Departure - Departure Time of Disposition: 01:48 Disposition: Home, Self-Care 01 Condition: Fair Clinical Impression: Chronic abdominal pain, UTI, Urinary tract infectious disease Vomiting Qualifiers: Vomiting type: unspecified Vomiting Intractability: non-intractable Nausea presence: with nausea Qualified Code(s): R11.2 - Nausea with vomiting, unspecified Constipation Qualifiers: Constipation type: unspecified constipation type Qualified Code(s): K59.00 - Constipation, unspecified - Discharge Information Referrals: PCP,None [Primary Care Provider] - Forms: ED Department Discharge Additional Instructions: The following information is given to patients seen in the emergency department who are being discharged to home. This information is to outline your options for follow-up care. We provide all patients seen in our emergency department with a follow-up referral. The need for follow-up, as well as the timing and circumstances, are variable depending upon the specifics of your emergency department visit. If you don't have a primary care physician on staff, we will provide you with a referral. We always advise you to contact your personal physician following an emergency department visit to inform them of the circumstance of the visit and for follow-up with them and/or the need for any referrals to a consulting specialist. The emergency department will also refer you to a specialist when appropriate. This referral assures that you have the opportunity for followup care with a specialist. All of these measure are taken in an effort to provide you with optimal care, which includes your followup. Under all circumstances we always encourage you to contact your private physician who remains a resource for coordinating your care. When calling for followup care, please make the office aware that this follow-up is from your recent emergency room visit. If for any reason you are refused follow-up, please contact the [facility] emergency department at and ask to speak to the emergency department charge nurse. [facility] Primary care- Internal Medicine and Family [address] [address] Push sips of clear liquids and try to continue to watch her diet checking her blood sugars and dosing her insulin per your regimen. Your given Reglan from [facility] that you need to continue to help with her gastroparesis and you have also been given some backup Zofran here tonight to use for breakthrough vomiting. I have represcribed the Protonix that was given to you from [facility] in [place] that do not have the prescription for an you need to restart that tomorrow as you're given a dose here tonight. Please use the other medications you have for pain management given to you from [facility] as needed and as directed. Please take the antibiotics that you have been prescribed for your UTI/bladder infection. These call and schedule a follow -up appointment in our clinic or with your provider for reevaluation and further care and to get a better control of your overall diabetes and your chronic pain and medical problems. Return to ER as needed and as discussed - My Orders Last 24 Hours: My Active Orders 09/15/18 00:15 Blood Glucose Check, Bedside [RC] ONETIME Saline Lock Insert [OM.PC] Stat 09/15/18 00:16 Sodium Chloride 0.9% [Saline Flush] 10 ml FLUSH ASDIRECTED PRN Sodium Chloride 0.9% [Saline Flush] 2.5 ml FLUSH ASDIRECTED PRN 09/15/18 01:23 CULTURE URINE [RM] Stat - Assessment/Plan Last 24 Hours: My Active Orders 09/15/18 00:15 Blood Glucose Check, Bedside [RC] ONETIME Saline Lock Insert [OM.PC] Stat 09/15/18 00:16 Sodium Chloride 0.9% [Saline Flush] 10 ml FLUSH ASDIRECTED PRN Sodium Chloride 0.9% [Saline Flush] 2.5 ml FLUSH ASDIRECTED PRN 09/15/18 01:23 CULTURE URINE [RM] Stat
[2018-09-15 00:57] LABS: BLOOD UREA NITROGEN,BUN 17 mg/dL (7.0-18.0); CARBON DIOXIDE,CO2 26.2 mmol/L (21.0-32.0); CHLORIDE,CL 98 mmol/L (98-107); GLUCOSE RANDOM 248 mg/dL (74-106); LIPASE 33 U/L (73-393); POTASSIUM,K 4.3 mmol/L (3.5-5.1); SODIUM,NA 136 mmol/L (136-148)
--- NOTE | 2018-09-15 01:27 | CR ---
Indication: Abdominal pain Technique: KUB 2 view with frontal chest Comparison: Chest radiograph September 08, 2018, KUB September 06, 2018 Findings/Impression: : Large amount of feces in the colon consistent with constipation. No free air pneumatosis. Normal cardiomediastinal silhouette with clear lungs and pleural spaces. Osseous structures are intact. Dictated by Jackelin Clay MD @ Sep 15 2018 1:23AM Signed by Dr. Jackelin Clay @ Sep 15 2018 1:25AM
[2018-09-15] MEDS ORDERED: Insulin Regular, Human 100 Units/ML 10 ML Vial SUBCUT ONE (01:42)
[2018-09-15] MEDS ORDERED: cefTRIAXone 1 GM Vial IM ONE (01:51)
[2018-09-15] MEDS ORDERED: Lidocaine 1% PF 2 ML SDV INJECT ONE (01:55)
[2018-09-15 02:20] VITALS: BP 108/70; PULSE 76
== END 2018-09-15 02:19 | disposition home or self-care (01) ==
LOC: MW.ED 00:08
DX: N39.0 Urinary tract infection, site not specified (principal); K59.00 Constipation, unspecified; E10.9 Type 1 diabetes mellitus without complications; Z87.19 Personal history of other diseases of the digestive system; Z79.4 Long term (current) use of insulin; Z79.899 Other long term (current) drug therapy
CPT/HCPCS: 36415; 74022; 80053; 80305; 81001; 82009; 82150; 82803; 82962; 83690; 85025; 85610; 87086; 87088; 87186; 96361; 96372; 96374; 96375; 99284; C9113; J0696; J1200; J2001; J2060; J2405; J7040; J1815-GY

== ENCOUNTER 2018-09-16 14:08 | Emergency (ER) | payer MEDICAID, OTHER ==
[2018-09-16] MEDS ORDERED: Ondansetron 4 MG/2 ML SDV IVPUSH ONE (14:32)
[2018-09-16] MEDS ORDERED: Sodium Chloride 0.9% 10 ML Syringe FLUSH PRN (14:32)
[2018-09-16] MEDS ORDERED: Sodium Chloride 0.9% 2.5 ML Syringe FLUSH PRN (14:32)
[2018-09-16] MEDS ORDERED: Pantoprazole 40 MG Vial IVPUSH ONE (14:32)
[2018-09-16] MEDS ORDERED: Sodium Chloride 0.9% 1,000 ML IV ONE (14:32)
[2018-09-16] MEDS ORDERED: Sodium Chloride 0.9% 20 ML ONE (14:36)
[2018-09-16] MEDS ORDERED: diphenhydrAMINE 50 MG/ML SDV IVPUSH ONE ×2 (14:47→15:47)
--- NOTE | 2018-09-16 15:12 | EDM.PDOC ---
ED HPI GENERAL MEDICAL PROBLEM - General Chief Complaint: Gastrointestinal Problem Stated Complaint: STOMACH PAIN VOMITING BLOOD ITCHY Time Seen by Provider: 09/16/18 14:13 Source of Information: Reports: Patient History Limitations: Reports: No Limitations - History of Present Illness INITIAL COMMENTS - FREE TEXT/NARRATIVE: History of present illness: []Patient stopped drinking 6 months ago and presents today with abdominal pain and vomiting dark fluid. He also states that he is itchy all over. Patient denies any fevers, chills, bloody stools and has not had any previous abdominal surgeries. Review of systems: As per history of present illness and below otherwise all systems reviewed and negative. Past medical history: As per history of present illness and as reviewed below otherwise noncontributory. Surgical history: As per history of present illness and as reviewed below otherwise noncontributory. Social history: No reported history of drug or alcohol abuse. Family history: As per history of present illness and as reviewed below otherwise noncontributory. Physical exam: General: Well developed, well nourished in NAD HEENT: Atraumatic, normocephalic, pupils reactive, negative for conjunctival pallor or scleral icterus, mucous membranes moist, throat clear, neck supple, nontender, trachea midline. Lungs: Clear to auscultation, breath sounds equal bilaterally, chest nontender. Heart: S1S2, regular, negative for clicks, rubs, or JVD. Abdomen: NABS, Soft, nondistended, nontender. Negative for masses or hepatosplenomegaly. Negative for costovertebral tenderness. Pelvis: Stable nontender. Genitourinary: Deferred. Chronic indwelling edge catheter Rectal: Deferred. Extremities: Atraumatic, negative for cords or calf pain. Neurovascular unremarkable. Neuro: Awake, alert, oriented. Cranial nerves II through XII unremarkable. Cerebellum unremarkable. Motor and sensory unremarkable throughout. Exam nonfocal. Skin:warm and dry Diagnostics: CBC, chemistry, lipase, urine culture, upright chest x-ray-neg Therapeutics: IV fluids, Protonix, Zofran and Benadryl ED Course: Patient received morphine and had itching afterwards more than just a histamine reaction Impression: Abdominal pain, vomiting Prescriptions: Zofran hyoscyamine Plan: Take meds as directed, follow up with your primary care physician, return to ER if symptoms worsen or change. Definitive disposition and diagnosis as appropriate pending reevaluation and review of above. Abdomen Pain Score (Numeric/FACES): 10 - Related Data Allergies Allergy/AdvReac Type Severity Reaction Status Date / Time morphine Allergy Itching Verified 09/16/18 15:47 Home Meds: Home Meds Insulin Aspart [NovoLOG] 5 units SUBCUT TIDAC 07/23/18 [History] Ferrous Sulfate [Iron] 325 mg PO BID 09/15/18 [History] Hydrocodone/Acetaminophen [Hydrocodon-Acetaminophn 10-325] 10 - 325 mg PO Q4HR PRN 09/15/18 [History] Insulin Lispro Prot/Lispro [HumaLOG Mix 75-25] 78 units SUBCUT BID 09/15/18 [ History] Metoclopramide HCl [Reglan] 10 mg PO TID 09/15/18 [History] Pantoprazole [ProTONIX] 40 mg PO BID 09/15/18 [History] Hyoscyamine [Hyomax-SL] 0.125 mg SL Q4H PRN #20 tab.sl 09/16/18 [Rx] Ondansetron [Zofran ODT] 4 mg PO Q6H PRN #20 tab.dis 09/16/18 [Rx] Past Medical History - Past Health History Medical/Surgical History: Denies Medical/Surgical History HEENT History: Reports: Other (See Below) Other HEENT History: ear ache Cardiovascular History: Reports: None Respiratory History: Reports: None Gastrointestinal History: Reports: Irritable Bowel Syndrome Other Gastrointestinal History: gastropharesis Genitourinary History: Reports: Pyelonephritis, Other (See Below) Other Genitourinary History: hydronephrosis; with indwelling urinary catheter Musculoskeletal History: Reports: Fracture Other Musculoskeletal History: Elbow long time ago Neurological History: Reports: None Psychiatric History: Reports: Anxiety, Depression Endocrine/Metabolic History: Reports: Diabetes, Type I Other Endocrine/Metabolic History: non-compliant to DM medications Hematologic History: Reports: None Oncologic (Cancer) History: Reports: None Dermatologic History: Reports: Other (See Below) Other Dermatologic History: dry itchy skin - Infectious Disease History Infectious Disease History: Reports: None - Past Surgical History HEENT Surgical History: Reports: None GI Surgical History: Reports: None Male Surgical History: Reports: None Endocrine Surgical History: Reports: None Musculoskeletal Surgical History: Reports: None Dermatological Surgical History: Reports: None Social & Family History - Family History Family Medical History: Noncontributory OBGYN: Reports: Endocrine/Metabolic: Reports: Diabetes, Type I, Diabetes, type II - Tobacco Use Smoking Status *Q: Never Smoker - Caffeine Use Caffeine Use: Reports: None - Recreational Drug Use Recreational Drug Use: No - Living Situation & Occupation Living situation: Reports: Single, with Family Occupation: Unemployed ED ROS GENERAL - Review of Systems Review Of Systems: See Below ED EXAM, GI/ABD - Physical Exam Exam: See Below Course - Vital Signs Last Recorded V/S: Last Vital Signs Temp 97.6 F 09/16/18 14:24 Pulse 148 H 09/16/18 14:24 Resp 18 09/16/18 14:24 BP 102/70 09/16/18 14:24 Pulse Ox 98 09/16/18 14:24 - Orders/Labs/Meds Orders: Active Orders 24 hr Category Date Time Status Acute Abdominal Series [Abdomen 1V Upright] [CR] Stat Exams 09/16/18 15:55 Ordered CULTURE URINE [RM] Stat Lab 09/16/18 14:48 Received Sodium Chloride 0.9% [Saline Flush] Med 09/16/18 14:32 Active 10 ml FLUSH ASDIRECTED PRN Sodium Chloride 0.9% [Saline Flush] Med 09/16/18 14:32 Active 2.5 ml FLUSH ASDIRECTED PRN Saline Lock Insert [OM.PC] Stat Oth 09/16/18 14:31 Ordered Medication Orders Sodium Chloride (Saline Flush) 10 ml FLUSH ASDIRECTED PRN PRN Reason: Keep Vein Open Sodium Chloride (Saline Flush) 2.5 ml FLUSH ASDIRECTED PRN PRN Reason: Keep Vein Open Labs: Laboratory Tests 09/16/18 09/16/18 09/16/18 Range/Units 14:43 14:43 14:43 WBC 5.84 (4.0-11.0) K/uL RBC 4.93 (4.50-5.90) M/uL Hgb 12.9 L (13.0-17.0) g/dL Hct 40.1 (38.0-50.0) % MCV 81.3 (80.0-98.0) fL MCH 26.2 L (27.0-32.0) pg MCHC 32.2 (31.0-37.0) g/dL RDW Std Deviation 42.7 (28.0-62.0) fl RDW Coeff of Erika 14 (11.0-15.0) % Plt Count 243 (150-400) K/uL MPV 9.30 (7.40-12.00) fL Neut % (Auto) 77.5 (48.0-80.0) % Lymph % (Auto) 18.2 (16.0-40.0) % [place] % (Auto) 3.9 (0.0-15.0) % Eos % (Auto) 0.2 (0.0-7.0) % Baso % (Auto) 0.2 (0.0-1.5) % Neut # (Auto) 4.5 (1.4-5.7) K/uL Lymph # (Auto) 1.1 (0.6-2.4) K/uL [place] # (Auto) 0.2 (0.0-0.8) K/uL Eos # (Auto) 0.0 (0.0-0.7) K/uL Baso # (Auto) 0.0 (0.0-0.1) K/uL Nucleated RBC % 0.0 /100WBC Nucleated RBCs # 0 K/uL INR 0.97 APTT 28.0 (18.6-31.3) SEC Sodium 138 (136-148) mmol/L Potassium 4.2 (3.5-5.1) mmol/L Chloride 97 L (98-107) mmol/L Carbon Dioxide 23.8 (21.0-32.0) mmol/L BUN 17 (7.0-18.0) mg/dL Creatinine 0.6 L (0.8-1.3) mg/dL Est Cr Clr Drug Dosing 126.94 mL/min Estimated GFR (MDRD) > 60.0 ml/min Glucose 156 H (74-106) mg/dL Calcium 10.1 (8.5-10.1) mg/dL Total Bilirubin 0.3 (0.2-1.0) mg/dL AST 9 L (15-37) IU/L ALT 11 L (14-63) IU/L Alkaline Phosphatase 90 (46-116) U/L Total Protein 8.1 (6.4-8.2) g/dL Albumin 2.8 L (3.4-5.0) g/dL Globulin 5.3 H (2.6-4.0) g/dL Albumin/Globulin Ratio 0.5 L (0.9-1.6) Lipase 35 L (73-393) U/L Urine Color Urine Appearance Urine pH (5.0-8.0) Ur Specific [place] (1.001-1.035) Urine Protein (NEGATIVE) mg/dL Urine Glucose (UA) (NEGATIVE) mg/dL Urine Ketones (NEGATIVE) mg/dL Urine Occult Blood (NEGATIVE) Urine Nitrite (NEGATIVE) Urine Bilirubin (NEGATIVE) Urine Urobilinogen (<2.0) EU/dL Ur Leukocyte Esterase (NEGATIVE) Urine RBC (0-2/HPF) Urine WBC (0-5/HPF) Ur Epithelial Cells (NONE-FEW) Urine Bacteria (NEGATIVE) Hyaline Casts (0-2/LPF) Urine Mucus (NONE-MOD) Blood Type Antibody Screen 09/16/18 09/16/18 Range/Units 14:43 14:48 WBC (4.0-11.0) K/uL RBC (4.50-5.90) M/uL Hgb (13.0-17.0) g/dL Hct (38.0-50.0) % MCV (80.0-98.0) fL MCH (27.0-32.0) pg MCHC (31.0-37.0) g/dL RDW Std Deviation (28.0-62.0) fl RDW Coeff of Erika (11.0-15.0) % Plt Count (150-400) K/uL MPV (7.40-12.00) fL Neut % (Auto) (48.0-80.0) % Lymph % (Auto) (16.0-40.0) % [place] % (Auto) (0.0-15.0) % Eos % (Auto) (0.0-7.0) % Baso % (Auto) (0.0-1.5) % Neut # (Auto) (1.4-5.7) K/uL Lymph # (Auto) (0.6-2.4) K/uL [place] # (Auto) (0.0-0.8) K/uL Eos # (Auto) (0.0-0.7) K/uL Baso # (Auto) (0.0-0.1) K/uL Nucleated RBC % /100WBC Nucleated RBCs # K/uL INR APTT (18.6-31.3) SEC Sodium (136-148) mmol/L Potassium (3.5-5.1) mmol/L Chloride (98-107) mmol/L Carbon Dioxide (21.0-32.0) mmol/L BUN (7.0-18.0) mg/dL Creatinine (0.8-1.3) mg/dL Est Cr Clr Drug Dosing mL/min Estimated GFR (MDRD) ml/min Glucose (74-106) mg/dL Calcium (8.5-10.1) mg/dL Total Bilirubin (0.2-1.0) mg/dL AST (15-37) IU/L ALT (14-63) IU/L Alkaline Phosphatase (46-116) U/L Total Protein (6.4-8.2) g/dL Albumin (3.4-5.0) g/dL Globulin (2.6-4.0) g/dL Albumin/Globulin Ratio (0.9-1.6) Lipase (73-393) U/L Urine Color YELLOW Urine Appearance CLEAR Urine pH 6.0 (5.0-8.0) Ur Specific [place] 1.015 (1.001-1.035) Urine Protein 100 H (NEGATIVE) mg/dL Urine Glucose (UA) 250 H (NEGATIVE) mg/dL Urine Ketones 15 H (NEGATIVE) mg/dL Urine Occult Blood TRACE-INTACT H (NEGATIVE) Urine Nitrite NEGATIVE (NEGATIVE) Urine Bilirubin NEGATIVE (NEGATIVE) Urine Urobilinogen 0.2 (<2.0) EU/dL Ur Leukocyte Esterase TRACE H (NEGATIVE) Urine RBC 1-2 (0-2/HPF) Urine WBC 4-8 (0-5/HPF) Ur Epithelial Cells RARE (NONE-FEW) Urine Bacteria RARE (NEGATIVE) Hyaline Casts 0-1 (0-2/LPF) Urine Mucus LIGHT (NONE-MOD) Blood Type A POSITIVE Antibody Screen NEGATIVE Meds: Medications Generic Name Dose Route Start Last Admin Trade Name Freq PRN Reason Stop Dose Admin Sodium Chloride 10 ml 09/16/18 14:32 Saline Flush FLUSH ASDIRECTED PRN Keep Vein Open Sodium Chloride 2.5 ml 09/16/18 14:32 Saline Flush FLUSH ASDIRECTED PRN Keep Vein Open Discontinued Medications Generic Name Dose Route Start Last Admin Trade Name Mary PRN Reason Stop Dose Admin Diphenhydramine HCl 25 mg 09/16/18 14:47 09/16/18 14:51 Benadryl IVPUSH 09/16/18 14:48 25 mg ONETIME ONE Administration Diphenhydramine HCl 25 mg 09/16/18 15:47 09/16/18 15:52 Benadryl IVPUSH 09/16/18 15:48 25 mg ONETIME ONE Administration Sodium Chloride 1,000 mls @ 999 mls/hr 09/16/18 14:32 09/16/18 14:42 Normal Saline IV 09/16/18 15:32 999 mls/hr .Bolus ONE Administration Sodium Chloride Confirm 09/16/18 14:36 Normal Saline Administered 09/16/18 14:37 Dose 20 mls @ as directed .ROUTE .STK-MED ONE Metoclopramide HCl 10 mg 09/16/18 15:54 09/16/18 16:00 Reglan IVPUSH 09/16/18 15:55 10 mg ONETIME ONE Administration Morphine Sulfate 2 mg 09/16/18 15:28 09/16/18 15:32 Morphine IVPUSH 09/16/18 15:29 2 mg ONETIME ONE Administration Ondansetron HCl 4 mg 09/16/18 14:32 09/16/18 14:43 Zofran IVPUSH 09/16/18 14:33 4 mg ONETIME ONE Administration Pantoprazole Sodium 80 mg 09/16/18 14:32 09/16/18 14:43 Protonix Iv IVPUSH 09/16/18 14:33 80 mg .BOLUS ONE Administration Departure - Departure Time of Disposition: 16:20 Disposition: Home, Self-Care 01 Condition: Good Clinical Impression: Vomiting Qualifiers: Vomiting type: unspecified Vomiting Intractability: non-intractable Nausea presence: with nausea Qualified Code(s): R11.2 - Nausea with vomiting, unspecified Abdominal pain Qualifiers: Abdominal location: upper abdomen, unspecified Qualified Code(s): R10.10 - Upper abdominal pain, unspecified - Discharge Information *PRESCRIPTION DRUG MONITORING PROGRAM REVIEWED*: No *COPY OF PRESCRIPTION DRUG MONITORING REPORT IN PATIENT HANY: No Prescriptions: Hyoscyamine [Hyomax-SL] 0.125 mg SL Q4H PRN #20 tab.sl PRN Reason: Pain Ondansetron [Zofran ODT] 4 mg PO Q6H PRN #20 tab.dis PRN Reason: Nausea Referrals: PCP,Unknown [Primary Care Provider] - Forms: ED Department Discharge Additional Instructions: The following information is given to patients seen in the emergency department who are being discharged to home. This information is to outline your options for follow-up care. We provide all patients seen in our emergency department with a follow-up referral. The need for follow-up, as well as the timing and circumstances, are variable depending upon the specifics of your emergency department visit. If you don't have a primary care physician on staff, we will provide you with a referral. We always advise you to contact your personal physician following an emergency department visit to inform them of the circumstance of the visit and for follow-up with them and/or the need for any referrals to a consulting specialist. The emergency department will also refer you to a specialist when appropriate. This referral assures that you have the opportunity for follow-up care with a specialist. All of these measure are taken in an effort to provide you with optimal care, which includes your follow-up. Under all circumstances we always encourage you to contact your private physician who remains a resource for coordinating your care. When calling for follow-up care, please make the office aware that this follow-up is from your recent emergency room visit. If for any reason you are refused follow-up, please contact the [facility] Emergency Department at and asked to speak to the emergency department charge nurse. Take meds as directed, follow up with your primary care physician, return to ER if symptoms worsen or change. [facility] [address] [place] [id number] - My Orders Last 24 Hours: My Active Orders 09/16/18 14:31 Saline Lock Insert [OM.PC] Stat 09/16/18 14:32 Sodium Chloride 0.9% [Saline Flush] 10 ml FLUSH ASDIRECTED PRN Sodium Chloride 0.9% [Saline Flush] 2.5 ml FLUSH ASDIRECTED PRN 09/16/18 14:48 CULTURE URINE [RM] Stat 09/16/18 15:55 Acute Abdominal Series [Abdomen 1V Upright] [CR] Stat - Assessment/Plan Last 24 Hours: My Active Orders 09/16/18 14:31 Saline Lock Insert [OM.PC] Stat 09/16/18 14:32 Sodium Chloride 0.9% [Saline Flush] 10 ml FLUSH ASDIRECTED PRN Sodium Chloride 0.9% [Saline Flush] 2.5 ml FLUSH ASDIRECTED PRN 09/16/18 14:48 CULTURE URINE [RM] Stat 09/16/18 15:55 Acute Abdominal Series [Abdomen 1V Upright] [CR] Stat
[2018-09-16 15:15] LABS: BLOOD UREA NITROGEN,BUN 17 mg/dL (7.0-18.0); CARBON DIOXIDE,CO2 23.8 mmol/L (21.0-32.0); CHLORIDE,CL 97 mmol/L (98-107); GLUCOSE RANDOM 156 mg/dL (74-106); LIPASE 35 U/L (73-393); POTASSIUM,K 4.2 mmol/L (3.5-5.1); SODIUM,NA 138 mmol/L (136-148)
[2018-09-16] MEDS ORDERED: Morphine 2 MG/ML Syringe IVPUSH ONE (15:28)
--- NOTE | 2018-09-16 15:44 | CR ---
INDICATION: Pain and shortness of breath. COMPARISON: 09/08/2018 FINDINGS: An erect single view of the chest was obtained at 1526 hours. The lungs remain clear. No focal or diffuse infiltrates are present. The heart remains normal in size. The mediastinum is normal in appearance. The osseous structures are normal in appearance for the patient`s age. IMPRESSION: Normal chest single view. Dictated by Frederick Erickson MD @ Sep 16 2018 3:41PM Signed by Dr. Frederick Erickson @ Sep 16 2018 3:42PM
[2018-09-16] MEDS ORDERED: Metoclopramide 10 MG/2 ML SDV IVPUSH ONE (15:54)
[2018-09-16 16:37] VITALS: BP 133/102; PULSE 122
--- NOTE | 2018-09-16 16:40 | CR ---
Indication: Vomiting Technique: A single view of the abdomen Comparison: 09/15/2018 Findings/Impression: : The lower pelvis is not imaged. A nonobstructive bowel gas pattern. Stool again seen throughout the colon, compatible with constipation. No definite evidence of gross free air. No suspicious calcifications seen. Stable osseous structures. Dictated by Rafa Irvin MD @ 09/16/2018 4:38:52 PM Dictated by: Rafa Irvin MD @ 09/16/2018 16:39:26 (Electronically Signed)
== END 2018-09-16 16:34 | disposition home or self-care (01) ==
LOC: MW.ED 14:08
DX: R10.10 Upper abdominal pain, unspecified (principal); R11.2 Nausea with vomiting, unspecified; E10.9 Type 1 diabetes mellitus without complications; Z88.5 Allergy status to narcotic agent
CPT/HCPCS: 36415; 71045; 74018; 80053; 81001; 82962; 83690; 85025; 85610; 85730; 86850; 86900; 86901; 87086; 96361; 96374; 96375; 99284; C9113; J1200; J2270; J2405; J2765; J7040

== ENCOUNTER 2018-09-17 09:06 | Emergency (ER) | payer MEDICAID, OTHER ==
--- NOTE | 2018-09-17 09:10 | EDM.PDOC ---
ED HPI GENERAL MEDICAL PROBLEM - General Chief Complaint: Abdominal Pain Stated Complaint: STOMACH PAIN Time Seen by Provider: 09/17/18 09:10 Source of Information: Reports: Patient History Limitations: Reports: No Limitations - History of Present Illness INITIAL COMMENTS - FREE TEXT/NARRATIVE: History of present illness: []Patient is well-known to the ED and was here yesterday with the same complaint of itching, vomiting and abdominal pain. He had a full workup that was negative except for constipation on x-ray and was discharged with antiemetics and Levsin for abdominal cramping. He returns stating he wants to itching to stop. He did take a hydrocodone tablet this morning and did have an allergic reaction to morphine yesterday. Review of systems: As per history of present illness and below otherwise all systems reviewed and negative. Past medical history: As per history of present illness and as reviewed below otherwise noncontributory. Surgical history: As per history of present illness and as reviewed below otherwise noncontributory. Social history: No reported history of drug or alcohol abuse. Family history: As per history of present illness and as reviewed below otherwise noncontributory. Physical exam: General: Well developed, well nourished in NAD HEENT: Atraumatic, normocephalic, pupils reactive, negative for conjunctival pallor or scleral icterus, mucous membranes moist, throat clear, neck supple, nontender, trachea midline. Lungs: Clear to auscultation, breath sounds equal bilaterally, chest nontender. Heart: S1S2, regular, negative for clicks, rubs, or JVD. Abdomen: NABS, Soft, nondistended, nontender. Negative for masses or hepatosplenomegaly. Negative for costovertebral tenderness. Pelvis: Stable nontender. Genitourinary: Deferred. Rectal: Deferred. Extremities: Atraumatic, negative for cords or calf pain. Neurovascular unremarkable. Neuro: Awake, alert, oriented. Cranial nerves II through XII unremarkable. Cerebellum unremarkable. Motor and sensory unremarkable throughout. Exam nonfocal. Skin:warm and dry Diagnostics: Bedside glucose, abdominal ultrasound-no acute findings Therapeutics: IV hydrated, Benadryl, Toradol, Zofran ED Course: Stable, patient refuses any oral medications Impression: Chronic itching, chronic abdominal pain, chronic vomiting Prescriptions: None Plan: Take meds as directed, follow up with your primary care physician, return to ER if symptoms worsen or change. Definitive disposition and diagnosis as appropriate pending reevaluation and review of above. Abdominal Pain Score (Numeric/FACES): 10 - Related Data Allergies Allergy/AdvReac Type Severity Reaction Status Date / Time morphine Allergy Itching Verified 09/17/18 09:08 Home Meds: Home Meds Insulin Aspart [NovoLOG] 5 units SUBCUT TIDAC 07/23/18 [History] Ferrous Sulfate [Iron] 325 mg PO BID 09/15/18 [History] Hydrocodone/Acetaminophen [Hydrocodon-Acetaminophn 10-325] 10 - 325 mg PO Q4HR PRN 09/15/18 [History] Insulin Lispro Prot/Lispro [HumaLOG Mix 75-25] 78 units SUBCUT BID 09/15/18 [ History] Metoclopramide HCl [Reglan] 10 mg PO TID 09/15/18 [History] Hyoscyamine [Hyomax-SL] 0.125 mg SL Q4H PRN #20 tab.sl 09/16/18 [Rx] Ondansetron [Zofran ODT] 4 mg PO Q6H PRN #20 tab.dis 09/16/18 [Rx] Past Medical History - Past Health History Medical/Surgical History: Denies Medical/Surgical History HEENT History: Reports: Other (See Below) Other HEENT History: ear ache Cardiovascular History: Reports: None Respiratory History: Reports: None Gastrointestinal History: Reports: Irritable Bowel Syndrome Other Gastrointestinal History: gastropharesis Genitourinary History: Reports: Pyelonephritis, Other (See Below) Other Genitourinary History: hydronephrosis; with indwelling urinary catheter Musculoskeletal History: Reports: Fracture Other Musculoskeletal History: Elbow long time ago Neurological History: Reports: None Psychiatric History: Reports: Anxiety, Depression Endocrine/Metabolic History: Reports: Diabetes, Type I Other Endocrine/Metabolic History: non-compliant to DM medications Hematologic History: Reports: None Oncologic (Cancer) History: Reports: None Dermatologic History: Reports: Other (See Below) Other Dermatologic History: dry itchy skin - Infectious Disease History Infectious Disease History: Reports: None - Past Surgical History HEENT Surgical History: Reports: None GI Surgical History: Reports: None Male Surgical History: Reports: None Endocrine Surgical History: Reports: None Musculoskeletal Surgical History: Reports: None Dermatological Surgical History: Reports: None Social & Family History - Family History Family Medical History: Noncontributory OBGYN: Reports: Endocrine/Metabolic: Reports: Diabetes, Type I, Diabetes, type II - Caffeine Use Caffeine Use: Reports: None - Living Situation & Occupation Living situation: Reports: Single, with Family Occupation: Unemployed ED ROS GENERAL - Review of Systems Review Of Systems: See Below ED EXAM, GI/ABD - Physical Exam Exam: See Below Course - Vital Signs Last Recorded V/S: Last Vital Signs Temp 96.9 F 09/17/18 09:10 Pulse 112 H 09/17/18 09:10 Resp 18 09/17/18 09:10 BP 139/95 H 09/17/18 09:10 Pulse Ox 99 09/17/18 09:10 - Orders/Labs/Meds Orders: Active Orders 24 hr Category Date Time Status Blood Glucose Check, Bedside [RC] ONETIME Care 09/17/18 09:16 Active Sodium Chloride 0.9% [Saline Flush] Med 09/17/18 09:12 Active 10 ml FLUSH ASDIRECTED PRN Sodium Chloride 0.9% [Saline Flush] Med 09/17/18 09:12 Active 2.5 ml FLUSH ASDIRECTED PRN Saline Lock Insert [OM.PC] Stat Oth 09/17/18 09:12 Ordered Medication Orders Sodium Chloride (Saline Flush) 10 ml FLUSH ASDIRECTED PRN PRN Reason: Keep Vein Open Sodium Chloride (Saline Flush) 2.5 ml FLUSH ASDIRECTED PRN PRN Reason: Keep Vein Open Meds: Medications Generic Name Dose Route Start Last Admin Trade Name Freq PRN Reason Stop Dose Admin Sodium Chloride 10 ml 09/17/18 09:12 Saline Flush FLUSH ASDIRECTED PRN Keep Vein Open Sodium Chloride 2.5 ml 09/17/18 09:12 Saline Flush FLUSH ASDIRECTED PRN Keep Vein Open Discontinued Medications Generic Name Dose Route Start Last Admin Trade Name Freq PRN Reason Stop Dose Admin Diphenhydramine HCl 25 mg 09/17/18 09:26 09/17/18 10:49 Benadryl PO 09/17/18 09:27 25 mg ONETIME ONE Administration Hyoscyamine 0.125 mg 09/17/18 09:21 09/17/18 09:57 Hyomax-Sl SL 09/17/18 09:22 Not Given ONETIME ONE Sodium Chloride 1,000 mls @ 999 mls/hr 09/17/18 09:11 09/17/18 09:24 Normal Saline IV 09/17/18 10:11 999 mls/hr .Bolus ONE Administration Ketorolac Tromethamine 30 mg 09/17/18 09:14 09/17/18 09:24 Toradol IVPUSH 09/17/18 09:15 30 mg ONETIME ONE Administration Ondansetron HCl 4 mg 09/17/18 09:11 09/17/18 09:24 Zofran IVPUSH 09/17/18 09:12 4 mg ONETIME ONE Administration Departure - Departure Time of Disposition: 10:58 Disposition: Home, Self-Care 01 Condition: Good Clinical Impression: Itching, Chronic abdominal pain, Chronic vomiting, Gastroparesis - Discharge Information *PRESCRIPTION DRUG MONITORING PROGRAM REVIEWED*: No *COPY OF PRESCRIPTION DRUG MONITORING REPORT IN PATIENT HANY: No Referrals: PCP,Unknown [Primary Care Provider] - Forms: ED Department Discharge Additional Instructions: The following information is given to patients seen in the emergency department who are being discharged to home. This information is to outline your options for follow-up care. We provide all patients seen in our emergency department with a follow-up referral. The need for follow-up, as well as the timing and circumstances, are variable depending upon the specifics of your emergency department visit. If you don't have a primary care physician on staff, we will provide you with a referral. We always advise you to contact your personal physician following an emergency department visit to inform them of the circumstance of the visit and for follow-up with them and/or the need for any referrals to a consulting specialist. The emergency department will also refer you to a specialist when appropriate. This referral assures that you have the opportunity for follow-up care with a specialist. All of these measure are taken in an effort to provide you with optimal care, which includes your follow-up. Under all circumstances we always encourage you to contact your private physician who remains a resource for coordinating your care. When calling for follow-up care, please make the office aware that this follow-up is from your recent emergency room visit. If for any reason you are refused follow-up, please contact the [facility] Emergency Department at and asked to speak to the emergency department charge nurse. Take meds as directed, follow up with your primary care physician, return to ER if symptoms worsen or change. [facility] [address] [place] [id number] - My Orders Last 24 Hours: My Active Orders 09/17/18 09:12 Sodium Chloride 0.9% [Saline Flush] 10 ml FLUSH ASDIRECTED PRN Sodium Chloride 0.9% [Saline Flush] 2.5 ml FLUSH ASDIRECTED PRN Saline Lock Insert [OM.PC] Stat 09/17/18 09:16 Blood Glucose Check, Bedside [RC] ONETIME - Assessment/Plan Last 24 Hours: My Active Orders 09/17/18 09:12 Sodium Chloride 0.9% [Saline Flush] 10 ml FLUSH ASDIRECTED PRN Sodium Chloride 0.9% [Saline Flush] 2.5 ml FLUSH ASDIRECTED PRN Saline Lock Insert [OM.PC] Stat 09/17/18 09:16 Blood Glucose Check, Bedside [RC] ONETIME
[2018-09-17] MEDS ORDERED: Sodium Chloride 0.9% 1,000 ML IV ONE (09:11)
[2018-09-17] MEDS ORDERED: Ondansetron 4 MG/2 ML SDV IVPUSH ONE (09:11)
[2018-09-17] MEDS ORDERED: Sodium Chloride 0.9% 2.5 ML Syringe FLUSH PRN (09:12)
[2018-09-17] MEDS ORDERED: Sodium Chloride 0.9% 10 ML Syringe FLUSH PRN (09:12)
[2018-09-17] MEDS ORDERED: Ketorolac 30 MG/ML SDV IVPUSH ONE (09:14)
[2018-09-17] MEDS ORDERED: Hyoscyamine 0.125 MG Tab.SL SL ONE (09:21)
[2018-09-17] MEDS: diphenhydrAMINE 25 MG Cap PO ONE ×2 (09:56→10:49)
--- NOTE | 2018-09-17 10:53 | US ---
INDICATION : Abdominal pain TECHNIQUE : Ultrasound of the abdomen limited. Grayscale and color doppler. COMPARISON : No comparison ultrasound available FINDINGS: Liver: There are multiple echogenic foci in the liver without acoustical shadowing. No discrete liver mass. Gallbladder: No stones. Some dependent sludge is present. The wall is normal thickness. Common bile duct: Normal 3 mm. Right kidney: Normal 12.5 cm. Aorta: Normal caliber. Pancreas: Normal. IMPRESSION: 1. Multiple echogenic foci in the liver without shadowing. These could be incidental small calcifications, echogenic portal triads could also be considered. These do not demonstrate gas shadows therefore less likely to represent air in the biliary tree. Would consider consideration to CT scan to characterize for possible calcification and evaluation of portal structures. 2. Normal thickness of the gallbladder with no stones. Small amount of sludge. No biliary dilatation. Dictated by Eric Mckeon MD @ Sep 17 2018 10:47AM Signed by Dr. Eric Mckeon @ Sep 17 2018 10:51AM
[2018-09-17 12:17] VITALS: BP 137/90; PULSE 99
== END 2018-09-17 11:15 | disposition home or self-care (01) ==
LOC: MW.ED 09:06
DX: E10.43 Type 1 diabetes mellitus with diabetic autonomic (poly)neuropathy (principal); K31.84 Gastroparesis; L29.9 Pruritus, unspecified; Z79.4 Long term (current) use of insulin; Z88.6 Allergy status to analgesic agent; Z79.899 Other long term (current) drug therapy
CPT/HCPCS: 76705; 96361; 96374; 96375; 99284; A9270; J1885; J2405; J7040

== ENCOUNTER 2018-09-24 20:12 | Emergency (ER) | payer MEDICAID ==
[2018-09-24] MEDS ORDERED: cefTRIAXone 1 GM Vial IM ONE (20:52)
[2018-09-24] MEDS ORDERED: Lidocaine 1% 2 ML ONE (20:56)
[2018-09-24] MEDS ORDERED: Nitrofurantoin Monohydrate/Macrocrystalline 100 MG Cap PO STA (21:00)
--- NOTE | 2018-09-24 21:06 | EDM.PDOC ---
ED HPI GENERAL MEDICAL PROBLEM - General Chief Complaint: General Stated Complaint: PT IS IN PAIN FROM CATH. Time Seen by Provider: 09/24/18 20:36 Source of Information: Reports: Patient History Limitations: Reports: No Limitations - History of Present Illness INITIAL COMMENTS - FREE TEXT/NARRATIVE: HISTORY AND PHYSICAL: History of present illness: Patient is a 22-year-old male presents to the ED today for Edge catheter removal as the catheter is bothersome to him. Patient states that he had the Edeg placed then on one of his hospital visits about 1 month ago, after he had urinary retention for neurogenic bladder due to complications of uncontrolled diabetes. Patient states that he was told a few days ago he has a urinary tract infection but never went and picked up the antibiotics stating that he can afford it. Other than requesting for the Edge to be removed, patient denies any other symptoms or concerns at this time. Patient denies fever, chills, chest pain, shortness of breath, or cough. Denies headache, neck stiff ness, change in vision, syncope, or near syncope. Denies nausea, vomiting, abdominal pain, diarrhea, constipation, or dysuria. Has not noted any blood in urine or stool. Patient has been eating and drinking appropriately. Review of systems: As per history of present illness and below otherwise all systems reviewed and negative. Past medical history: As per history of present illness and as reviewed below otherwise noncontributory. Surgical history: As per history of present illness and as reviewed below otherwise noncontributory. Social history: See social history for further information Family history: As per history of present illness and as reviewed below otherwise noncontributory. Physical exam: General: Patient is alert, oriented, and in no acute distress. Patient sitting comfortably on exam table. HEENT: Atraumatic, normocephalic, pupils equal and reactive bilaterally, negative for conjunctival pallor or scleral icterus, mucous membranes moist, TMs normal bilaterally, throat clear, neck supple, nontender, trachea midline. No drooling or trismus noted. No meningeal signs. No hot potato voice noted. Lungs: Clear to auscultation, breath sounds equal bilaterally, chest nontender. Heart: S1S2, regular rate and rhythm without overt murmur Abdomen: Soft, nondistended, nontender. Negative for masses or hepatosplenomegaly. Negative for costovertebral tenderness. Pelvis: Stable nontender. Genitourinary: Deferred. Rectal: Deferred. Skin: Intact, warm, dry. No lesions or rashes noted. Extremities: Atraumatic, negative for cords or calf pain. Neurovascular unremarkable. Neuro: Awake, alert, oriented. Cranial nerves II through XII unremarkable. Cerebellum unremarkable. Motor and sensory unremarkable throughout. Exam nonfocal. Notes: Dr. Sahni verbally involved in patient care. Dr. Warren, urology online journalist, was consulted on patient. Dr. Nettles states that if patient is requesting for the Edge to be removed to remove Edge after discussing risks versus benefits of this. Dr. Nettles then requests sending home with Macrobinasir and follow-up with Dr. Nettles. I did review patient's positive urine culture which is susceptible to Macrobid. However, patient is unable to afford antibiotics and enough sent home with him from the ED. I did discuss the risks versus benefits of Edge removal and he continues to request removal of the Edge and expresses understanding and still requests removal. Edge removed for patient. Voices understanding and is agreeable to plan of care. Denies any further questions or concerns at this time. Diagnostics: Patient declines requesting only Edge cath removal Therapeutics: Rocephin Prescription: Macrobid sent home with patient from ED Impression: Encounter for edge removal Urinary Tract Infection Medical non-compliance H/O neurogenic bladder Plan: 1. Take medications as prescribed. You can alternate ibuprofen and Tylenol as directed for pain and discomfort. 2. Follow-up with urologist Dr. Nettles as discussed. Return to the ED as needed and as discussed. Definitive disposition and diagnosis as appropriate pending reevaluation and review of above. - Related Data Allergies Allergy/AdvReac Type Severity Reaction Status Date / Time morphine Allergy Itching Verified 09/24/18 20:23 Home Meds: Home Meds Insulin Aspart [NovoLOG] 5 units SUBCUT TIDAC 07/23/18 [History] Ferrous Sulfate [Iron] 325 mg PO BID 09/15/18 [History] Hydrocodone/Acetaminophen [Hydrocodon-Acetaminophn 10-325] 10 - 325 mg PO Q4HR PRN 09/15/18 [History] Insulin Lispro Prot/Lispro [HumaLOG Mix 75-25] 78 units SUBCUT BID 09/15/18 [ History] Metoclopramide HCl [Reglan] 10 mg PO TID 09/15/18 [History] Hyoscyamine [Hyomax-SL] 0.125 mg SL Q4H PRN #20 tab.sl 09/16/18 [Rx] Ondansetron [Zofran ODT] 4 mg PO Q6H PRN #20 tab.dis 09/16/18 [Rx] Past Medical History - Past Health History Medical/Surgical History: Denies Medical/Surgical History HEENT History: Reports: Other (See Below) Other HEENT History: ear ache Cardiovascular History: Reports: None Respiratory History: Reports: None Gastrointestinal History: Reports: Irritable Bowel Syndrome Other Gastrointestinal History: gastropharesis Genitourinary History: Reports: Pyelonephritis, Other (See Below) Other Genitourinary History: hydronephrosis; with indwelling urinary catheter Musculoskeletal History: Reports: Fracture Other Musculoskeletal History: Elbow long time ago Neurological History: Reports: None Psychiatric History: Reports: Anxiety, Depression Endocrine/Metabolic History: Reports: Diabetes, Type I Other Endocrine/Metabolic History: non-compliant to DM medications Hematologic History: Reports: None Oncologic (Cancer) History: Reports: None Dermatologic History: Reports: Other (See Below) Other Dermatologic History: dry itchy skin - Infectious Disease History Infectious Disease History: Reports: None - Past Surgical History HEENT Surgical History: Reports: None GI Surgical History: Reports: None Male Surgical History: Reports: None Endocrine Surgical History: Reports: None Musculoskeletal Surgical History: Reports: None Dermatological Surgical History: Reports: None Social & Family History - Family History Family Medical History: Noncontributory OBGYN: Reports: Endocrine/Metabolic: Reports: Diabetes, Type I, Diabetes, type II - Tobacco Use Smoking Status *Q: Never Smoker Second Hand Smoke Exposure: No - Caffeine Use Caffeine Use: Reports: None - Recreational Drug Use Recreational Drug Use: No - Living Situation & Occupation Living situation: Reports: Single, with Family Occupation: Unemployed ED ROS GENERAL - Review of Systems Review Of Systems: ROS reveals no pertinent complaints other than HPI. ED EXAM, GENERAL - Physical Exam Exam: See Below (see dictation) Course - Vital Signs Last Recorded V/S: Last Vital Signs Temp 35.9 C 09/24/18 20:24 Pulse 130 H 09/24/18 20:24 Resp 16 09/24/18 20:24 BP 138/89 09/24/18 20:24 Pulse Ox 97 09/24/18 20:24 - Orders/Labs/Meds Meds: Medications Discontinued Medications Generic Name Dose Route Start Last Admin Trade Name Mary PRN Reason Stop Dose Admin Ceftriaxone Sodium 1 gm 09/24/18 20:52 09/24/18 21:05 Rocephin IM 09/24/18 20:53 1 gm ONETIME ONE Administration Lidocaine HCl Confirm 09/24/18 20:56 09/24/18 21:05 Xylocaine-Mpf 1% Administered 09/24/18 20:57 1 mls/hr Dose Administration 2 mls @ as directed .ROUTE .STK-MED ONE Nitrofurantoin Macrocrystals 1,000 mg 09/24/18 21:00 09/24/18 21:24 Macrobid PO 09/24/18 21:01 1,000 mg NOW STA Administration Departure - Departure Time of Disposition: 21:07 Disposition: Home, Self-Care 01 Clinical Impression: Encounter for Edge catheter removal, Noncompliance with medication regimen, History of neurogenic bladder Urinary tract infection Qualifiers: Urinary tract infection type: acute cystitis Hematuria presence: with hematuria Qualified Code(s): N30.01 - Acute cystitis with hematuria - Discharge Information Instructions: Urinary Tract Infection, Adult, [id number], Indwelling Urinary Catheter Care, Adult, [id number] Referrals: PCP,None [Primary Care Provider] - Forms: ED Department Discharge Additional Instructions: The following information is given to patients seen in the emergency department who are being discharged to home. This information is to outline your options for follow-up care. We provide all patients seen in our emergency department with a follow-up referral. The need for follow-up, as well as the timing and circumstances, are variable depending upon the specifics of your emergency department visit. If you don't have a primary care physician on staff, we will provide you with a referral. We always advise you to contact your personal physician following an emergency department visit to inform them of the circumstance of the visit and for follow-up with them and/or the need for any referrals to a consulting specialist. The emergency department will also refer you to a specialist when appropriate. This referral assures that you have the opportunity for follow-up care with a specialist. All of these measure are taken in an effort to provide you with optimal care, which includes your follow-up. Under all circumstances we always encourage you to contact your private physician who remains a resource for coordinating your care. When calling for follow-up care, please make the office aware that this follow-up is from your recent emergency room visit. If for any reason you are refused follow-up, please contact the [facility] Emergency Department at and asked to speak to the emergency department charge nurse. [facility] [address] [place] [address] [id number] [address] [id number] [facility] - Urology [address] [place] [id number] 1. Take medications as prescribed. You can alternate ibuprofen and Tylenol as directed for pain and discomfort. 2. Follow-up with urologist Dr. Nettles as discussed. His number has been provided above for you can call Friday morning to make an appointment with him. Return to the ED as needed and as discussed.
[2018-09-24 21:40] VITALS: BP 139/86
== END 2018-09-24 21:30 | disposition home or self-care (01) ==
LOC: MW.ED 20:12
DX: N30.01 Acute cystitis with hematuria (principal); E10.9 Type 1 diabetes mellitus without complications; Z91.14 Patient's other noncompliance with medication regimen; Z88.5 Allergy status to narcotic agent
CPT/HCPCS: 96372; 99283; A9270; J0696; J2001

== ENCOUNTER 2018-12-18 09:53 | Emergency (ER) | payer MEDICAID ==
[2018-12-18] MEDS ORDERED: Sodium Chloride 0.9% 2.5 ML Syringe FLUSH PRN (10:20)
[2018-12-18] MEDS ORDERED: Sodium Chloride 0.9% 10 ML Syringe FLUSH PRN (10:20)
[2018-12-18] MEDS ORDERED: Sodium Chloride 0.9% 1,000 ML IV ONE ×2 (10:20→11:56)
--- NOTE | 2018-12-18 10:42 | EDM.PDOC ---
ED HPI GENERAL MEDICAL PROBLEM - General Chief Complaint: General Stated Complaint: FLU LIKE SYMPTOMS Time Seen by Provider: 12/18/18 10:03 Source of Information: Reports: Patient History Limitations: Reports: No Limitations - History of Present Illness INITIAL COMMENTS - FREE TEXT/NARRATIVE: History of present illness: []Patient is a diabetic who has as an opiate addiction from pain pills and was seen at a Suboxone clinic and told to take half a pill in the morning and half at night but patient is still feeling ill from this. He is nauseated, vomiting, shaky and tired with body aches. He was seen in the clinic yesterday had a test for influenza was negative. Review of systems: As per history of present illness and below otherwise all systems reviewed and negative. Past medical history: As per history of present illness and as reviewed below otherwise noncontributory. Surgical history: As per history of present illness and as reviewed below otherwise noncontributory. Social history: No reported history of drug or alcohol abuse. Family history: As per history of present illness and as reviewed below otherwise noncontributory. Physical exam: General: Well developed, well nourished in NAD HEENT: Atraumatic, normocephalic, pupils reactive, negative for conjunctival pallor or scleral icterus, mucous membranes moist, throat clear, neck supple, nontender, trachea midline. Lungs: Clear to auscultation, breath sounds equal bilaterally, chest nontender. Heart: S1S2, regular, negative for clicks, rubs, or JVD. Abdomen: NABS, Soft, nondistended, nontender. Negative for masses or hepatosplenomegaly. Negative for costovertebral tenderness. Pelvis: Stable nontender. Genitourinary: Deferred. Rectal: Deferred. Extremities: Atraumatic, negative for cords or calf pain. Neurovascular unremarkable. Neuro: Awake, alert, oriented. Cranial nerves II through XII unremarkable. Cerebellum unremarkable. Motor and sensory unremarkable throughout. Exam nonfocal. Skin:warm and dry Diagnostics: CBC, chemistry Therapeutics: IV hydration with 2 L normal saline ED Course: Improved Impression: dehydration Prescriptions: zofran Plan: Take meds as directed, follow up with your primary care physician, return to ER if symptoms worsen or change. Definitive disposition and diagnosis as appropriate pending reevaluation and review of above. body aches Pain Score (Numeric/FACES): 7 - Related Data Allergies Allergy/AdvReac Type Severity Reaction Status Date / Time morphine Allergy Itching Verified 12/18/18 10:07 Home Meds: Home Meds Insulin Aspart [NovoLOG] 5 units SUBCUT TIDAC 07/23/18 [History] Ferrous Sulfate [Iron] 325 mg PO BID 09/15/18 [History] Hyoscyamine [Hyomax-SL] 0.125 mg SL Q4H PRN #20 tab.sl 09/16/18 [Rx] Ondansetron [Zofran ODT] 4 mg PO Q6H PRN #20 tab.dis 09/16/18 [Rx] Buprenorphine HCl/Naloxone HCl [Zubsolv 5.7-1.4 mg Tablet Sl] 1 each SL DAILY [History] Insulin Glarg,Human.Rec.Analog [Lantus] 40 unit SUBCUT DAILY 12/18/18 [History] Ondansetron HCl [Zofran] 4 mg PO Q4HR #12 tablet 12/18/18 [Rx] Past Medical History - Past Health History Medical/Surgical History: Denies Medical/Surgical History HEENT History: Reports: Other (See Below) Other HEENT History: ear ache Cardiovascular History: Reports: None Respiratory History: Reports: None Gastrointestinal History: Reports: Irritable Bowel Syndrome Other Gastrointestinal History: gastropharesis Genitourinary History: Reports: Pyelonephritis, Other (See Below) Other Genitourinary History: hydronephrosis; with indwelling urinary catheter Musculoskeletal History: Reports: Fracture Other Musculoskeletal History: Elbow long time ago Neurological History: Reports: None Psychiatric History: Reports: Anxiety, Depression Endocrine/Metabolic History: Reports: Diabetes, Type I Other Endocrine/Metabolic History: non-compliant to DM medications Hematologic History: Reports: None Oncologic (Cancer) History: Reports: None Dermatologic History: Reports: Other (See Below) Other Dermatologic History: dry itchy skin - Infectious Disease History Infectious Disease History: Reports: None - Past Surgical History HEENT Surgical History: Reports: None GI Surgical History: Reports: None Male Surgical History: Reports: None Endocrine Surgical History: Reports: None Musculoskeletal Surgical History: Reports: None Dermatological Surgical History: Reports: None Social & Family History - Family History Family Medical History: Noncontributory OBGYN: Reports: Endocrine/Metabolic: Reports: Diabetes, Type I, Diabetes, type II - Tobacco Use Smoking Status *Q: Current Every Day Smoker Years of Tobacco use: 1 Packs/Tins Daily: 0.3 - Caffeine Use Caffeine Use: Reports: None - Recreational Drug Use Recreational Drug Use: No - Living Situation & Occupation Living situation: Reports: Single, with Family Occupation: Unemployed ED ROS GENERAL - Review of Systems Review Of Systems: See Below ED EXAM, GENERAL - Physical Exam Exam: See Below Course - Vital Signs Last Recorded V/S: Last Vital Signs Temp 98.5 F 12/18/18 13:02 Pulse 112 H 12/18/18 13:02 Resp 18 12/18/18 13:02 BP 109/63 12/18/18 13:02 Pulse Ox 98 12/18/18 13:02 - Orders/Labs/Meds Orders: Active Orders 24 hr Category Date Time Status Blood Glucose Check, Bedside [RC] ONETIME Care 12/18/18 11:56 Active Saline Lock Insert [OM.PC] Stat Oth 12/18/18 10:20 Ordered Labs: Laboratory Tests 12/18/18 12/18/18 12/18/18 Range/Units 10:11 10:48 10:48 WBC 9.39 (4.0-11.0) K/uL RBC 4.20 L (4.50-5.90) M/uL Hgb 11.2 L (13.0-17.0) g/dL Hct 35.0 L (38.0-50.0) % MCV 83.3 (80.0-98.0) fL MCH 26.7 L (27.0-32.0) pg MCHC 32.0 (31.0-37.0) g/dL RDW Std Deviation 41.1 (28.0-62.0) fl RDW Coeff of Erika 14 (11.0-15.0) % Plt Count 236 (150-400) K/uL MPV 10.00 (7.40-12.00) fL Neut % (Auto) 84.6 H (48.0-80.0) % Lymph % (Auto) 7.7 L (16.0-40.0) % [place] % (Auto) 7.5 (0.0-15.0) % Eos % (Auto) 0.1 (0.0-7.0) % Baso % (Auto) 0.1 (0.0-1.5) % Neut # (Auto) 8.0 H (1.4-5.7) K/uL Lymph # (Auto) 0.7 (0.6-2.4) K/uL [place] # (Auto) 0.7 (0.0-0.8) K/uL Eos # (Auto) 0.0 (0.0-0.7) K/uL Baso # (Auto) 0.0 (0.0-0.1) K/uL Nucleated RBC % 0.0 /100WBC Nucleated RBCs # 0 K/uL Sodium 134 L (136-148) mmol/L Potassium 4.4 (3.5-5.1) mmol/L Chloride 97 L (98-107) mmol/L Carbon Dioxide 16.2 L (21.0-32.0) mmol/L BUN 18 (7.0-18.0) mg/dL Creatinine 1.1 (0.8-1.3) mg/dL Est Cr Clr Drug Dosing 95.41 mL/min Estimated GFR (MDRD) > 60.0 ml/min Glucose 305 H (74-106) mg/dL POC Glucose 276 H (60-110) mg/dL Calcium 9.3 (8.5-10.1) mg/dL Total Bilirubin 0.4 (0.2-1.0) mg/dL AST 11 L (15-37) IU/L ALT 16 (14-63) IU/L Alkaline Phosphatase 129 H (46-116) U/L Total Protein 8.7 H (6.4-8.2) g/dL Albumin 2.8 L (3.4-5.0) g/dL Globulin 5.9 H (2.6-4.0) g/dL Albumin/Globulin Ratio 0.5 L (0.9-1.6) 12/18/18 Range/Units 12:01 WBC (4.0-11.0) K/uL RBC (4.50-5.90) M/uL Hgb (13.0-17.0) g/dL Hct (38.0-50.0) % MCV (80.0-98.0) fL MCH (27.0-32.0) pg MCHC (31.0-37.0) g/dL RDW Std Deviation (28.0-62.0) fl RDW Coeff of Erika (11.0-15.0) % Plt Count (150-400) K/uL MPV (7.40-12.00) fL Neut % (Auto) (48.0-80.0) % Lymph % (Auto) (16.0-40.0) % [place] % (Auto) (0.0-15.0) % Eos % (Auto) (0.0-7.0) % Baso % (Auto) (0.0-1.5) % Neut # (Auto) (1.4-5.7) K/uL Lymph # (Auto) (0.6-2.4) K/uL [place] # (Auto) (0.0-0.8) K/uL Eos # (Auto) (0.0-0.7) K/uL Baso # (Auto) (0.0-0.1) K/uL Nucleated RBC % /100WBC Nucleated RBCs # K/uL Sodium (136-148) mmol/L Potassium (3.5-5.1) mmol/L Chloride (98-107) mmol/L Carbon Dioxide (21.0-32.0) mmol/L BUN (7.0-18.0) mg/dL Creatinine (0.8-1.3) mg/dL Est Cr Clr Drug Dosing mL/min Estimated GFR (MDRD) ml/min Glucose (74-106) mg/dL POC Glucose 254 H (60-110) mg/dL Calcium (8.5-10.1) mg/dL Total Bilirubin (0.2-1.0) mg/dL AST (15-37) IU/L ALT (14-63) IU/L Alkaline Phosphatase (46-116) U/L Total Protein (6.4-8.2) g/dL Albumin (3.4-5.0) g/dL Globulin (2.6-4.0) g/dL Albumin/Globulin Ratio (0.9-1.6) Meds: Medications Discontinued Medications Generic Name Dose Route Start Last Admin Trade Name Freq PRN Reason Stop Dose Admin Sodium Chloride 1,000 mls @ 999 mls/hr 12/18/18 10:20 12/18/18 10:49 Normal Saline IV 12/18/18 11:20 999 mls/hr .Bolus ONE Administration Sodium Chloride 1,000 mls @ 999 mls/hr 12/18/18 11:56 12/18/18 12:02 Normal Saline IV 12/18/18 12:56 999 mls/hr .Bolus ONE Administration Sodium Chloride 10 ml 12/18/18 10:20 12/18/18 10:50 Saline Flush FLUSH 10 ml ASDIRECTED PRN Administration Keep Vein Open Sodium Chloride 2.5 ml 12/18/18 10:20 12/18/18 10:50 Saline Flush FLUSH 2.5 ml ASDIRECTED PRN Administration Keep Vein Open Departure - Departure Time of Disposition: 13:02 Disposition: Home, Self-Care 01 Condition: Good Clinical Impression: Dehydration - Discharge Information *PRESCRIPTION DRUG MONITORING PROGRAM REVIEWED*: Not Applicable *COPY OF PRESCRIPTION DRUG MONITORING REPORT IN PATIENT HANY: Not Applicable Prescriptions: Ondansetron HCl [Zofran] 4 mg PO Q4HR #12 tablet Instructions: Dehydration, Adult, [id number] Referrals: Lynsey Palm TISSUE COORDINATOR [Primary Care Provider] - Forms: ED Department Discharge Additional Instructions: The following information is given to patients seen in the emergency department who are being discharged to home. This information is to outline your options for follow-up care. We provide all patients seen in our emergency department with a follow-up referral. The need for follow-up, as well as the timing and circumstances, are variable depending upon the specifics of your emergency department visit. If you don't have a primary care physician on staff, we will provide you with a referral. We always advise you to contact your personal physician following an emergency department visit to inform them of the circumstance of the visit and for follow-up with them and/or the need for any referrals to a consulting specialist. The emergency department will also refer you to a specialist when appropriate. This referral assures that you have the opportunity for follow-up care with a specialist. All of these measure are taken in an effort to provide you with optimal care, which includes your follow-up. Under all circumstances we always encourage you to contact your private physician who remains a resource for coordinating your care. When calling for follow-up care, please make the office aware that this follow-up is from your recent emergency room visit. If for any reason you are refused follow-up, please contact the [facility] Emergency Department at and asked to speak to the emergency department charge nurse. Take meds as directed, follow up with your primary care physician, return to ER if symptoms worsen or change. [facility] [address] [place] [id number] - My Orders Last 24 Hours: My Active Orders 12/18/18 10:20 Saline Lock Insert [OM.PC] Stat 12/18/18 11:56 Blood Glucose Check, Bedside [RC] ONETIME - Assessment/Plan Last 24 Hours: My Active Orders 12/18/18 10:20 Saline Lock Insert [OM.PC] Stat 12/18/18 11:56 Blood Glucose Check, Bedside [RC] ONETIME
[2018-12-18 11:31] LABS: BLOOD UREA NITROGEN,BUN 18 mg/dL (7.0-18.0); CARBON DIOXIDE,CO2 16.2 mmol/L (21.0-32.0); CHLORIDE,CL 97 mmol/L (98-107); GLUCOSE RANDOM 305 mg/dL (74-106); POTASSIUM,K 4.4 mmol/L (3.5-5.1); SODIUM,NA 134 mmol/L (136-148)
[2018-12-18 13:02] VITALS: BP 109/63; PULSE 112
== END 2018-12-18 13:09 | disposition home or self-care (01) ==
LOC: MW.ED 09:53
DX: E86.0 Dehydration (principal); E10.43 Type 1 diabetes mellitus with diabetic autonomic (poly)neuropathy; K31.84 Gastroparesis; F17.210 Nicotine dependence, cigarettes, uncomplicated; Z91.14 Patient's other noncompliance with medication regimen; Z79.4 Long term (current) use of insulin; Z79.899 Other long term (current) drug therapy; Z88.6 Allergy status to analgesic agent
CPT/HCPCS: 36415; 80053; 82962; 85025; 96360; 96361; 99284; J7040

== ENCOUNTER 2019-02-01 23:57 | Emergency (ER) | payer MEDICAID ==
[2019-02-02] MEDS ORDERED: Sodium Chloride 0.9% 1,000 ML IV ONE (00:55)
[2019-02-02] MEDS ORDERED: Metoclopramide 10 MG/2 ML SDV IVPUSH ONE (00:56)
[2019-02-02 01:43] LABS: BLOOD UREA NITROGEN,BUN 19 mg/dL (7.0-18.0); CARBON DIOXIDE,CO2 29.4 mmol/L (21.0-32.0); CHLORIDE,CL 98 mmol/L (98-107); GLUCOSE RANDOM 228 mg/dL (74-106); POTASSIUM,K 3.9 mmol/L (3.5-5.1); SODIUM,NA 134 mmol/L (136-148)
[2019-02-02] MEDS ORDERED: diphenhydrAMINE 50 MG/ML SDV IVPUSH ONE (03:02)
--- NOTE | 2019-02-02 04:24 | CT ---
INDICATION: Abdominal pain with nausea and vomiting. Rule out renal calculus. COMPARISON: None available TECHNIQUE: CT examination of the abdomen and pelvis was performed without contrast enhancement using 3 mm thick axial sections from the lung bases through the pubic symphysis. Oral contrast was not administered. Please note that all CT scans at this facility use dose modulation, iterative reconstruction, and/or weight-based dosing when appropriate to reduce radiation dose to as low as reasonably achievable. FINDINGS: In the abdomen, the unenhanced liver, spleen, pancreas, and adrenals are normal in appearance. There is mild right hydronephrosis and mild dilatation of the right proximal ureter, without sign of any obstructing ureteral calculus or mass. This dilatation may be the residua of recent obstruction. The kidneys are otherwise normal in appearance, with no sign of calculus, mass, or cyst. There is no sign of left hydronephrosis or hydroureter. The gallbladder is normal in appearance. The abdominal aorta is normal in caliber with no sign of dilatation. There is no sign of retroperitoneal mass or adenopathy. The stomach, loops of small bowel, and colon in the abdomen are normal in appearance. In the pelvis, the appendix is normal in appearance with no sign of inflammatory process. The loops of small bowel and colon in the pelvis are normal in appearance. The prostate is normal in appearance. The urinary bladder is normal in appearance. There is no sign of pelvic or inguinal mass or adenopathy. The lung bases are clear. The osseous structures are normal in appearance for the patient`s age. IMPRESSION: CT of the abdomen shows mild right hydronephrosis and proximal hydroureter without obstructing calculus or mass. This may be the residua of previous obstruction. No sign of any renal or ureteral calculi on either side. No sign of hydronephrosis on the left. Normal CT of the pelvis without contrast. Please note that all CT scans at this facility use dose modulation, iterative reconstruction, and/or weight-based dosing when appropriate to reduce radiation dose to as low as reasonably achievable. Dictated by Frederick Erickson MD @ Feb 02 2019 4:17AM Signed by Dr. Frederick Erickson @ Feb 02 2019 4:21AM
--- NOTE | 2019-02-02 06:54 | EDM.PDOC ---
ED HPI GENERAL MEDICAL PROBLEM - General Chief Complaint: Gastrointestinal Problem Stated Complaint: VOMITING Time Seen by Provider: 02/02/19 02:59 Source of Information: Reports: Patient History Limitations: Reports: No Limitations - History of Present Illness Onset: Today, Sudden Duration: Hour(s):, Intermittent Location: Reports: Back Quality: Reports: Dull, Throbbing Severity: Moderate Improves with: Reports: None Worsens with: Reports: None Associated Symptoms: Reports: No Other Symptoms Abdomen Pain Score (Numeric/FACES): 7 - Related Data Allergies Allergy/AdvReac Type Severity Reaction Status Date / Time morphine Allergy Itching Verified 02/02/19 00:20 Home Meds: Home Meds Insulin Aspart [NovoLOG] 5 units SUBCUT TIDAC 07/23/18 [History] Ferrous Sulfate [Iron] 325 mg PO BID 09/15/18 [History] Hyoscyamine [Hyomax-SL] 0.125 mg SL Q4H PRN #20 tab.sl 09/16/18 [Rx] Ondansetron [Zofran ODT] 4 mg PO Q6H PRN #20 tab.dis 09/16/18 [Rx] Buprenorphine HCl/Naloxone HCl [Zubsolv 5.7-1.4 mg Tablet Sl] 1 each SL DAILY [History] Insulin Glarg,Human.Rec.Analog [Lantus] 40 unit SUBCUT DAILY 12/18/18 [History] Ondansetron HCl [Zofran] 4 mg PO Q4HR #12 tablet 12/18/18 [Rx] Diclofenac Sodium [Voltaren] 75 mg PO BID 02/02/19 [History] Past Medical History - Past Health History Medical/Surgical History: Denies Medical/Surgical History HEENT History: Reports: Other (See Below) Other HEENT History: ear ache Cardiovascular History: Reports: None Respiratory History: Reports: None Gastrointestinal History: Reports: Irritable Bowel Syndrome Other Gastrointestinal History: gastropharesis Genitourinary History: Reports: Pyelonephritis, Other (See Below) Other Genitourinary History: hydronephrosis; with indwelling urinary catheter Musculoskeletal History: Reports: Fracture Other Musculoskeletal History: Elbow long time ago Neurological History: Reports: None Psychiatric History: Reports: Anxiety, Depression Endocrine/Metabolic History: Reports: Diabetes, Type I Other Endocrine/Metabolic History: non-compliant to DM medications Hematologic History: Reports: None Oncologic (Cancer) History: Reports: None Dermatologic History: Reports: Other (See Below) Other Dermatologic History: dry itchy skin - Infectious Disease History Infectious Disease History: Reports: None - Past Surgical History HEENT Surgical History: Reports: None GI Surgical History: Reports: None Male Surgical History: Reports: None Endocrine Surgical History: Reports: None Musculoskeletal Surgical History: Reports: None Dermatological Surgical History: Reports: None Social & Family History - Family History Family Medical History: Noncontributory OBGYN: Reports: Endocrine/Metabolic: Reports: Diabetes, Type I, Diabetes, type II - Tobacco Use Smoking Status *Q: Current Every Day Smoker Years of Tobacco use: 1 Packs/Tins Daily: 0.5 - Caffeine Use Caffeine Use: Reports: Coffee, Tea - Recreational Drug Use Recreational Drug Use: No - Living Situation & Occupation Living situation: Reports: Single, with Family Occupation: Unemployed ED ROS GENERAL - Review of Systems Review Of Systems: See Below Constitutional: Reports: No Symptoms HEENT: Reports: No Symptoms Respiratory: Reports: No Symptoms Cardiovascular: Reports: No Symptoms Endocrine: Reports: No Symptoms GI/Abdominal: Reports: No Symptoms : Reports: Flank Pain Musculoskeletal: Reports: No Symptoms Skin: Reports: No Symptoms Neurological: Reports: No Symptoms Psychiatric: Reports: No Symptoms Hematologic/Lymphatic: Reports: No Symptoms Immunologic: Reports: No Symptoms ED EXAM, GI/ABD - Physical Exam Exam: See Below Exam Limited By: No Limitations General Appearance: Alert, WD/WN, No Apparent Distress Eyes: Bilateral: Normal Appearance Ears: Normal External Exam, Normal Canal, Hearing Grossly Normal Nose: Normal Inspection, Normal Mucosa Throat/Mouth: Normal Inspection, Normal Lips, Normal Teeth, Normal Oropharynx, Normal Voice, No Airway Compromise Head: Atraumatic, Normocephalic Neck: Normal Inspection, Supple, Non-Tender, Full Range of Motion Cardiovascular: Normal Peripheral Pulses, Regular Rate, Rhythm, No Edema, No JVD , No Murmur GI/Abdominal Exam: Normal Bowel Sounds, Soft, Non-Tender, No Distention, No Abnormal Bruit, Pelvis Stable Back Exam: Normal Inspection, CVA Tenderness (R) Extremities: Normal Inspection, Normal Range of Motion, No Pedal Edema, Normal Capillary Refill Neurological: Alert, Oriented, CN II-XII Intact, Normal Cognition, Normal Gait Psychiatric: Normal Affect, Normal Mood Skin Exam: Warm, Dry, Intact, Normal Color Lymphatic: No Adenopathy Course - Vital Signs Text/Narrative:: 23-year-old male presents to the ER with right flank pain. Patient found to have large amount of blood in his urine. CT scan of the abdomen show patient appears to have passed a stone. Patient sleeping now having no longer pain. Assessment is renal colic with passing stone Last Recorded V/S: Last Vital Signs Temp 99.5 F 02/02/19 00:22 Pulse 114 H 02/02/19 02:21 Resp 16 02/02/19 02:21 BP 109/70 02/02/19 02:21 Pulse Ox 94 L 02/02/19 02:21 - Orders/Labs/Meds Orders: Active Orders 24 hr Category Date Time Status CULTURE URINE [RM] Stat Lab 02/02/19 00:52 Received Labs: Laboratory Tests 02/02/19 02/02/19 02/02/19 Range/Units 00:18 00:52 01:08 WBC 10.66 (4.0-11.0) K/uL RBC 4.26 L (4.50-5.90) M/uL Hgb 11.2 L (13.0-17.0) g/dL Hct 34.0 L (38.0-50.0) % MCV 79.8 L (80.0-98.0) fL MCH 26.3 L (27.0-32.0) pg MCHC 32.9 (31.0-37.0) g/dL RDW Std Deviation 37.7 (28.0-62.0) fl RDW Coeff of Erika 13 (11.0-15.0) % Plt Count 153 (150-400) K/uL MPV 10.00 (7.40-12.00) fL Neut % (Auto) 80.1 H (48.0-80.0) % Lymph % (Auto) 10.1 L (16.0-40.0) % [place] % (Auto) 9.7 (0.0-15.0) % Eos % (Auto) 0.0 (0.0-7.0) % Baso % (Auto) 0.1 (0.0-1.5) % Neut # (Auto) 8.5 H (1.4-5.7) K/uL Lymph # (Auto) 1.1 (0.6-2.4) K/uL [place] # (Auto) 1.0 H (0.0-0.8) K/uL Eos # (Auto) 0.0 (0.0-0.7) K/uL Baso # (Auto) 0.0 (0.0-0.1) K/uL Sodium (136-148) mmol/L Potassium (3.5-5.1) mmol/L Chloride (98-107) mmol/L Carbon Dioxide (21.0-32.0) mmol/L BUN (7.0-18.0) mg/dL Creatinine (0.8-1.3) mg/dL Est Cr Clr Drug Dosing mL/min Estimated GFR (MDRD) ml/min Glucose (74-106) mg/dL POC Glucose 175 H (60-110) mg/dL Calcium (8.5-10.1) mg/dL Total Bilirubin (0.2-1.0) mg/dL AST (15-37) IU/L ALT (14-63) IU/L Alkaline Phosphatase (46-116) U/L Total Protein (6.4-8.2) g/dL Albumin (3.4-5.0) g/dL Globulin (2.6-4.0) g/dL Albumin/Globulin Ratio (0.9-1.6) Urine Color YELLOW Urine Appearance CLOUDY Urine pH 5.5 (5.0-8.0) Ur Specific [place] 1.025 (1.001-1.035) Urine Protein 100 H (NEGATIVE) mg/dL Urine Glucose (UA) >=1000 (NEGATIVE) mg/dL Urine Ketones TRACE H (NEGATIVE) mg/dL Urine Occult Blood LARGE H (NEGATIVE) Urine Nitrite NEGATIVE (NEGATIVE) Urine Bilirubin NEGATIVE (NEGATIVE) Urine Urobilinogen 0.2 (<2.0) EU/dL Ur Leukocyte Esterase SMALL H (NEGATIVE) Urine RBC 10-15 (0-2/HPF) Urine WBC 5-10 (0-5/HPF) Ur Epithelial Cells RARE (NONE-FEW) Amorphous Sediment MODERATE (NEGATIVE) Urine Bacteria 3+ H (NEGATIVE) 02/02/19 Range/Units 01:08 WBC (4.0-11.0) K/uL RBC (4.50-5.90) M/uL Hgb (13.0-17.0) g/dL Hct (38.0-50.0) % MCV (80.0-98.0) fL MCH (27.0-32.0) pg MCHC (31.0-37.0) g/dL RDW Std Deviation (28.0-62.0) fl RDW Coeff of Erika (11.0-15.0) % Plt Count (150-400) K/uL MPV (7.40-12.00) fL Neut % (Auto) (48.0-80.0) % Lymph % (Auto) (16.0-40.0) % [place] % (Auto) (0.0-15.0) % Eos % (Auto) (0.0-7.0) % Baso % (Auto) (0.0-1.5) % Neut # (Auto) (1.4-5.7) K/uL Lymph # (Auto) (0.6-2.4) K/uL [place] # (Auto) (0.0-0.8) K/uL Eos # (Auto) (0.0-0.7) K/uL Baso # (Auto) (0.0-0.1) K/uL Sodium 134 L (136-148) mmol/L Potassium 3.9 (3.5-5.1) mmol/L Chloride 98 (98-107) mmol/L Carbon Dioxide 29.4 (21.0-32.0) mmol/L BUN 19 H (7.0-18.0) mg/dL Creatinine 0.9 (0.8-1.3) mg/dL Est Cr Clr Drug Dosing 99.96 mL/min Estimated GFR (MDRD) > 60.0 ml/min Glucose 228 H (74-106) mg/dL POC Glucose (60-110) mg/dL Calcium 9.0 (8.5-10.1) mg/dL Total Bilirubin 0.4 (0.2-1.0) mg/dL AST 14 L (15-37) IU/L ALT 14 (14-63) IU/L Alkaline Phosphatase 95 (46-116) U/L Total Protein 7.9 (6.4-8.2) g/dL Albumin 2.5 L (3.4-5.0) g/dL Globulin 5.4 H (2.6-4.0) g/dL Albumin/Globulin Ratio 0.5 L (0.9-1.6) Urine Color Urine Appearance Urine pH (5.0-8.0) Ur Specific [place] (1.001-1.035) Urine Protein (NEGATIVE) mg/dL Urine Glucose (UA) (NEGATIVE) mg/dL Urine Ketones (NEGATIVE) mg/dL Urine Occult Blood (NEGATIVE) Urine Nitrite (NEGATIVE) Urine Bilirubin (NEGATIVE) Urine Urobilinogen (<2.0) EU/dL Ur Leukocyte Esterase (NEGATIVE) Urine RBC (0-2/HPF) Urine WBC (0-5/HPF) Ur Epithelial Cells (NONE-FEW) Amorphous Sediment (NEGATIVE) Urine Bacteria (NEGATIVE) Meds: Medications Discontinued Medications Generic Name Dose Route Start Last Admin Trade Name Freq PRN Reason Stop Dose Admin Diphenhydramine HCl 50 mg 02/02/19 03:02 02/02/19 04:25 Benadryl IVPUSH 02/02/19 03:03 50 mg ONETIME ONE Administration Sodium Chloride 1,000 mls @ 999 mls/hr 02/02/19 00:55 02/02/19 01:12 Normal Saline IV 02/02/19 01:55 999 mls/hr .Bolus ONE Administration Metoclopramide HCl 10 mg 02/02/19 00:56 02/02/19 01:12 Reglan IVPUSH 02/02/19 00:57 10 mg ONETIME ONE Administration Departure - Departure Time of Disposition: 06:58 Disposition: Home, Self-Care 01 Condition: Good Clinical Impression: Kidney stone - Discharge Information Instructions: Kidney Stones, [id number] Referrals: Lynsey Palm CLINICAL TRIALS SPECIALIST [Primary Care Provider] - Sepsis Event Note - Evaluation Sepsis Screening Result: No Definite Risk - Focused Exam Vital Signs: Vital Signs Temp Pulse Resp BP Pulse Ox 02/02/19 02:21 114 H 16 109/70 94 L 02/02/19 00:22 99.5 F 128 H 17 103/72 95 Date Exam was Performed: 02/02/19 Time Exam was Performed: 06:49 - My Orders Last 24 Hours: My Active Orders 02/02/19 00:52 CULTURE URINE [RM] Stat - Assessment/Plan Last 24 Hours: My Active Orders 02/02/19 00:52 CULTURE URINE [RM] Stat
[2019-02-02 06:55] VITALS: BP 107/69; PULSE 121
== END 2019-02-02 07:15 | disposition home or self-care (01) ==
LOC: MW.ED 23:57
DX: N13.2 Hydronephrosis with renal and ureteral calculous obstruction (principal); F17.210 Nicotine dependence, cigarettes, uncomplicated; E10.43 Type 1 diabetes mellitus with diabetic autonomic (poly)neuropathy; K31.84 Gastroparesis; Z79.4 Long term (current) use of insulin; Z91.14 Patient's other noncompliance with medication regimen; Z88.6 Allergy status to analgesic agent
CPT/HCPCS: 36415; 74176; 80053; 81001; 82962; 85025; 87086; 87088; 87186; 96361; 96374; 96375; 99284; J1200; J2765; J7030; 99283

== ENCOUNTER 2019-02-03 03:36 | Inpatient (IN) | payer MEDICAID ==
[2019-02-03] MEDS ORDERED: Sodium Chloride 0.9% 1,000 ML IV ONE ×2 (03:54→08:58)
--- NOTE | 2019-02-03 03:54 | EDM.PDOC ---
ED HPI GENERAL MEDICAL PROBLEM - General Chief Complaint: Gastrointestinal Problem Stated Complaint: NAUSEA AND VOMITING; DIABETIC Time Seen by Provider: 02/03/19 03:49 Source of Information: Reports: Patient History Limitations: Reports: No Limitations - History of Present Illness INITIAL COMMENTS - FREE TEXT/NARRATIVE: 23-year-old male presents emergency room severe abdominal pain nausea and vomiting. Patient is a diabetic. Patient states he cannot keep anything down and has not taken his insulin. Patient has a history of diabetic gastroparesis denies chills and fever Onset: Today Duration: Hour(s):, Getting Worse Location: Reports: Abdomen Quality: Reports: Ache Severity: Moderate Improves with: Reports: None Worsens with: Reports: None Associated Symptoms: Reports: Nausea/Vomiting, Rash abdomen Pain Score (Numeric/FACES): 10 - Related Data Allergies Allergy/AdvReac Type Severity Reaction Status Date / Time morphine Allergy Itching Verified 02/03/19 03:49 Home Meds: Home Meds Insulin Aspart [NovoLOG] 5 units SUBCUT TIDAC 07/23/18 [History] Ferrous Sulfate [Iron] 325 mg PO BID 09/15/18 [History] Hyoscyamine [Hyomax-SL] 0.125 mg SL Q4H PRN #20 tab.sl 09/16/18 [Rx] Ondansetron [Zofran ODT] 4 mg PO Q6H PRN #20 tab.dis 09/16/18 [Rx] Buprenorphine HCl/Naloxone HCl [Zubsolv 5.7-1.4 mg Tablet Sl] 1 each SL DAILY [History] Insulin Glarg,Human.Rec.Analog [Lantus] 40 unit SUBCUT DAILY 12/18/18 [History] Diclofenac Sodium [Voltaren] 75 mg PO BID 02/02/19 [History] Methocarbamol [Robaxin] 500 mg PO TID #20 tablet 02/02/19 [Rx] Past Medical History - Past Health History Medical/Surgical History: Denies Medical/Surgical History HEENT History: Reports: Other (See Below) Other HEENT History: ear ache Cardiovascular History: Reports: None Respiratory History: Reports: None Gastrointestinal History: Reports: Irritable Bowel Syndrome Other Gastrointestinal History: gastropharesis Genitourinary History: Reports: Pyelonephritis, Other (See Below) Other Genitourinary History: hydronephrosis; with indwelling urinary catheter Musculoskeletal History: Reports: Fracture Other Musculoskeletal History: Elbow long time ago Neurological History: Reports: None Psychiatric History: Reports: Anxiety, Depression Endocrine/Metabolic History: Reports: Diabetes, Type I Other Endocrine/Metabolic History: non-compliant to DM medications Hematologic History: Reports: None Oncologic (Cancer) History: Reports: None Dermatologic History: Reports: Other (See Below) Other Dermatologic History: dry itchy skin - Infectious Disease History Infectious Disease History: Reports: None - Past Surgical History HEENT Surgical History: Reports: None GI Surgical History: Reports: None Male Surgical History: Reports: None Endocrine Surgical History: Reports: None Musculoskeletal Surgical History: Reports: None Dermatological Surgical History: Reports: None Social & Family History - Family History Family Medical History: Noncontributory OBGYN: Reports: Endocrine/Metabolic: Reports: Diabetes, Type I, Diabetes, type II - Caffeine Use Caffeine Use: Reports: Coffee, Tea - Living Situation & Occupation Living situation: Reports: Single, with Family Occupation: Unemployed ED ROS GENERAL - Review of Systems Review Of Systems: See Below Constitutional: Reports: Weakness, Fatigue HEENT: Reports: No Symptoms Respiratory: Reports: No Symptoms Cardiovascular: Reports: No Symptoms Endocrine: Reports: Fatigue, High Glucose GI/Abdominal: Reports: Abdominal Pain, Decreased Appetite, Nausea, Vomiting : Reports: No Symptoms Musculoskeletal: Reports: No Symptoms Skin: Reports: No Symptoms Neurological: Reports: No Symptoms Psychiatric: Reports: No Symptoms Hematologic/Lymphatic: Reports: No Symptoms Immunologic: Reports: No Symptoms ED EXAM, GI/ABD - Physical Exam Exam: See Below Text/Narrative:: 23-year-old male diabetic with abdominal pain. Physical exam HEENT is normal chest normal S1-S2 lungs are clear abdomen generalized lower abdominal pain. Patient has some flank pain. Patient was recently discharged from the hospital. Exam Limited By: No Limitations General Appearance: Alert, WD/WN, No Apparent Distress Eyes: Bilateral: Normal Appearance, EOMI Ears: Normal External Exam, Normal Canal, Hearing Grossly Normal Nose: Normal Inspection, Normal Mucosa, No Blood Throat/Mouth: Normal Inspection, Normal Lips, Normal Teeth, Normal Gums Neck: Normal Inspection Respiratory/Chest: No Respiratory Distress, Lungs Clear, Normal Breath Sounds Cardiovascular: Normal Peripheral Pulses, Regular Rate, Rhythm, No Edema, No Gallop GI/Abdominal Exam: Normal Bowel Sounds, No Mass, Tender (Male) Exam: No Hernia, Normal Inspection Rectal (Males) Exam: Deferred Back Exam: Normal Inspection, Full Range of Motion Extremities: Normal Inspection, Normal Range of Motion, Non-Tender, No Pedal Edema, Normal Capillary Refill Neurological: Alert, Oriented, CN II-XII Intact, Normal Cognition, Normal Gait, Normal Reflexes, No Motor/Sensory Deficits Psychiatric: Normal Affect, Normal Mood Skin Exam: Warm, Dry, Intact, Normal Color Course - Vital Signs Text/Narrative:: 23-year-old male presents the emergency room chief complaint nausea and vomiting. Patient states that he has not been able to hold anything down for over 24 hours. Patient is a diabetic and has not been taking his medications. Was recently seen in the emergency room with a diagnosis of kidney stones with hematuria. Patient now states he has worse nausea and vomiting. Physical exam initial heart rate was 128 now the heart rate after fluids was 100. Abdomen is tender. Lungs are clear normal chest S1-S2. Extremities are normal. Patient was g IV fluids and heart rate responded down to 100. Patient was given multiple rounds of antiemetics and pain medicine The patient labs were drawn appears the patient is in DKA pH of 7.04 and a CO2 of 6.5. Patient also has a leukocytosis of 16,000. At this time the source is probably stress and dehydration. Chest x-ray and urine have been ordered for possible source of infection. Assess:Ment DKA Dehydration Gastroparesis with intractable emesis Last Recorded V/S: Last Vital Signs Temp 96.5 F 02/03/19 03:36 Pulse 125 H 02/03/19 03:36 Resp 24 H 02/03/19 03:36 BP 118/69 02/03/19 03:36 Pulse Ox 96 02/03/19 03:36 - Orders/Labs/Meds Orders: Active Orders 24 hr Category Date Time Status Chest 1V Frontal [CR] Stat Exams 02/03/19 05:10 Ordered LACTIC ACID,WHOLE BLOOD [BG] Stat Lab 02/03/19 05:11 Ordered UA RFX YADY AND CULT IF INDIC [URIN] Stat Lab 02/03/19 05:11 Ordered Insulin Regular, Human [NovoLIN R] 100 unit Med 02/03/19 05:15 Active Sodium Chloride 0.9% [Normal Saline] 99 ml IV TITRATE Medication Orders Insulin Human Regular 100 unit (/ Sodium Chloride) 100 mls @ 6 mls/hr IV TITRATE AUGUSTINE; Protocol Labs: Laboratory Tests 02/03/19 02/03/19 02/03/19 Range/Units 03:40 03:40 03:40 WBC 16.50 H (4.0-11.0) K/uL RBC 4.50 (4.50-5.90) M/uL Hgb 11.7 L (13.0-17.0) g/dL Hct 39.5 (38.0-50.0) % MCV 87.8 (80.0-98.0) fL MCH 26.0 L (27.0-32.0) pg MCHC 29.6 L (31.0-37.0) g/dL RDW Std Deviation 45.7 (28.0-62.0) fl RDW Coeff of Erika 14 (11.0-15.0) % Plt Count 258 (150-400) K/uL MPV 10.90 (7.40-12.00) fL Neut % (Auto) 86.1 H (48.0-80.0) % Lymph % (Auto) 9.2 L (16.0-40.0) % [place] % (Auto) 4.5 (0.0-15.0) % Eos % (Auto) 0.0 (0.0-7.0) % Baso % (Auto) 0.2 (0.0-1.5) % Neut # (Auto) 14.2 H (1.4-5.7) K/uL Lymph # (Auto) 1.5 (0.6-2.4) K/uL [place] # (Auto) 0.7 (0.0-0.8) K/uL Eos # (Auto) 0.0 (0.0-0.7) K/uL Baso # (Auto) 0.0 (0.0-0.1) K/uL Nucleated RBC % 0.0 /100WBC Nucleated RBCs # 0 K/uL VBG pH 7.06 L (7.31-7.41) VBG pCO2 17 L (35-45) mmHG VBG pO2 48 H (30-40) mmHG VBG HCO3 5 L (22-30) mEq/L VBG Total CO2 5 L (41-51) mmol/L VBG Base Excess -23.6 L (-3.0-3.0) Sodium 136 (136-148) mmol/L Potassium 5.0 (3.5-5.1) mmol/L Chloride 98 (98-107) mmol/L Carbon Dioxide 6.5 L (21.0-32.0) mmol/L BUN 29 H (7.0-18.0) mg/dL Creatinine 1.4 H (0.8-1.3) mg/dL Est Cr Clr Drug Dosing TNP Estimated GFR (MDRD) > 60.0 ml/min Glucose 475 H (74-106) mg/dL POC Glucose (60-110) mg/dL Calcium 10.6 H (8.5-10.1) mg/dL Total Bilirubin 0.7 (0.2-1.0) mg/dL AST 10 L (15-37) IU/L ALT 15 (14-63) IU/L Alkaline Phosphatase 145 H (46-116) U/L Total Protein 9.2 H (6.4-8.2) g/dL Albumin 2.8 L (3.4-5.0) g/dL Globulin 6.4 H (2.6-4.0) g/dL Albumin/Globulin Ratio 0.4 L (0.9-1.6) Lipase 32 L (73-393) U/L 02/03/19 Range/Units 03:45 WBC (4.0-11.0) K/uL RBC (4.50-5.90) M/uL Hgb (13.0-17.0) g/dL Hct (38.0-50.0) % MCV (80.0-98.0) fL MCH (27.0-32.0) pg MCHC (31.0-37.0) g/dL RDW Std Deviation (28.0-62.0) fl RDW Coeff of Erika (11.0-15.0) % Plt Count (150-400) K/uL MPV (7.40-12.00) fL Neut % (Auto) (48.0-80.0) % Lymph % (Auto) (16.0-40.0) % [place] % (Auto) (0.0-15.0) % Eos % (Auto) (0.0-7.0) % Baso % (Auto) (0.0-1.5) % Neut # (Auto) (1.4-5.7) K/uL Lymph # (Auto) (0.6-2.4) K/uL [place] # (Auto) (0.0-0.8) K/uL Eos # (Auto) (0.0-0.7) K/uL Baso # (Auto) (0.0-0.1) K/uL Nucleated RBC % /100WBC Nucleated RBCs # K/uL VBG pH (7.31-7.41) VBG pCO2 (35-45) mmHG VBG pO2 (30-40) mmHG VBG HCO3 (22-30) mEq/L VBG Total CO2 (41-51) mmol/L VBG Base Excess (-3.0-3.0) Sodium (136-148) mmol/L Potassium (3.5-5.1) mmol/L Chloride (98-107) mmol/L Carbon Dioxide (21.0-32.0) mmol/L BUN (7.0-18.0) mg/dL Creatinine (0.8-1.3) mg/dL Est Cr Clr Drug Dosing Estimated GFR (MDRD) ml/min Glucose (74-106) mg/dL POC Glucose 472 H (60-110) mg/dL Calcium (8.5-10.1) mg/dL Total Bilirubin (0.2-1.0) mg/dL AST (15-37) IU/L ALT (14-63) IU/L Alkaline Phosphatase (46-116) U/L Total Protein (6.4-8.2) g/dL Albumin (3.4-5.0) g/dL Globulin (2.6-4.0) g/dL Albumin/Globulin Ratio (0.9-1.6) Lipase (73-393) U/L Meds: Medications Generic Name Dose Route Start Last Admin Trade Name Freq PRN Reason Stop Dose Admin Insulin Human Regular 100 unit 100 mls @ 6 mls/hr 02/03/19 05:15 / Sodium Chloride IV TITRATE AUGUSTINE Protocol 6 UNIT/HR Discontinued Medications Generic Name Dose Route Start Last Admin Trade Name Freq PRN Reason Stop Dose Admin Diphenhydramine HCl 50 mg 02/03/19 03:57 02/03/19 04:06 Benadryl IVPUSH 02/03/19 03:58 50 mg ONETIME ONE Administration Diphenhydramine HCl Confirm 02/03/19 03:59 02/03/19 04:04 Benadryl Administered 02/03/19 04:00 Not Given Dose 50 mg .ROUTE .STK-MED ONE Diphenhydramine HCl 25 mg 02/03/19 04:03 02/03/19 04:11 Benadryl IVPUSH 02/03/19 04:04 Not Given ONETIME ONE Sodium Chloride 1,000 mls @ 999 mls/hr 02/03/19 03:54 02/03/19 04:02 Normal Saline IV 02/03/19 04:54 999 mls/hr .Bolus ONE Administration Insulin Human Regular 10 unit 02/03/19 04:30 02/03/19 04:37 Novolin R IVPUSH 02/03/19 04:31 10 unit ONETIME ONE Administration Protocol Metoclopramide HCl 10 mg 02/03/19 03:57 02/03/19 04:06 Reglan IVPUSH 02/03/19 03:58 10 mg ONETIME ONE Administration Metoclopramide HCl Confirm 02/03/19 03:59 02/03/19 04:04 Reglan Administered 02/03/19 04:00 Not Given Dose 10 mg .ROUTE .STK-MED ONE Ondansetron HCl 4 mg 02/03/19 04:29 02/03/19 04:37 Zofran IVPUSH 02/03/19 04:30 4 mg ONETIME ONE Administration Departure - Departure Time of Disposition: 05:34 Disposition: Admitted As Inpatient 68 Condition: Poor Clinical Impression: Diabetic ketoacidosis Qualifiers: Diabetes mellitus type: type 1 Diabetes mellitus complication detail: without coma Qualified Code(s): E10.10 - Type 1 diabetes mellitus with ketoacidosis without coma - Discharge Information Referrals: PCP,None [Primary Care Provider] - Forms: ED Department Discharge Sepsis Event Note - Evaluation Sepsis Screening Result: No Definite Risk - Focused Exam Vital Signs: Vital Signs Temp Pulse Resp BP Pulse Ox 02/03/19 03:36 96.5 F 125 H 24 H 118/69 96 Date Exam was Performed: 02/03/19 Time Exam was Performed: 05:14 - My Orders Last 24 Hours: My Active Orders 02/03/19 05:10 Chest 1V Frontal [CR] Stat 02/03/19 05:11 LACTIC ACID,WHOLE BLOOD [BG] Stat UA RFX YADY AND CULT IF INDIC [URIN] Stat 02/03/19 05:15 Insulin Regular, Human [NovoLIN R] 100 unit Sodium Chloride 0.9% [Normal Saline] 99 ml IV TITRATE - Assessment/Plan Last 24 Hours: My Active Orders 02/03/19 05:10 Chest 1V Frontal [CR] Stat 02/03/19 05:11 LACTIC ACID,WHOLE BLOOD [BG] Stat UA RFX YADY AND CULT IF INDIC [URIN] Stat 02/03/19 05:15 Insulin Regular, Human [NovoLIN R] 100 unit Sodium Chloride 0.9% [Normal Saline] 99 ml IV TITRATE
[2019-02-03] MEDS ORDERED: Metoclopramide 10 MG/2 ML SDV IVPUSH ONE ×2 (03:57→19:22)
[2019-02-03] MEDS ORDERED: diphenhydrAMINE 50 MG/ML SDV IVPUSH ONE ×2 (03:57→04:03)
[2019-02-03] MEDS ORDERED: diphenhydrAMINE 50 MG/ML SDV ONE (03:59)
[2019-02-03] MEDS ORDERED: Metoclopramide 10 MG/2 ML SDV ONE (03:59)
[2019-02-03 04:14] LABS: SODIUM,NA 136 mmol/L (136-148)
[2019-02-03 04:15] LABS: BLOOD UREA NITROGEN,BUN 29 mg/dL (7.0-18.0); CARBON DIOXIDE,CO2 6.5 mmol/L (21.0-32.0); CHLORIDE,CL 98 mmol/L (98-107); GLUCOSE RANDOM 475 mg/dL (74-106); LIPASE 32 U/L (73-393)
[2019-02-03] MEDS ORDERED: Ondansetron 4 MG/2 ML SDV IVPUSH ONE ×2 (04:29→19:05)
[2019-02-03] MEDS ORDERED: Insulin Regular, Human 100 Units/ML 10 ML Vial IVPUSH ONE (04:30)
[2019-02-03] MEDS: HYDROmorphone 1 MG/ML Syringe IM ONE ×2 (05:34→05:36)
[2019-02-03] MEDS ORDERED: HYDROmorphone 1 MG/ML Syringe IVPUSH ONE (05:38)
--- NOTE | 2019-02-03 05:41 | CR ---
HISTORY: DKA COMPARISON: 09/16/2018 FINDINGS: A portable erect AP view of the chest was obtained at 0515 hours. The lungs remain clear. No focal or diffuse infiltrates are present. The heart remains normal in size. The mediastinum is normal in appearance. The osseous structures are normal in appearance for the patient`s age. IMPRESSION: Normal portable chest single view. Dictated by Frederick Erickson MD @ Feb 03 2019 5:40AM Signed by Dr. Frederick Erickson @ Feb 03 2019 5:41AM
[2019-02-03 05:49] VITALS: PULSE 130
[2019-02-03] MEDS ORDERED: Sodium Chloride 0.9% 500 ML IV ONE (06:38)
[2019-02-03] MEDS ORDERED: Sodium Chloride 0.9% 1,000 ML IV SCH (06:45)
--- NOTE | 2019-02-03 06:51 | PN ---
THC Physician - Brief Progress [id number]/25/2019 06:45[facility] Eddie [place], [place] - MWN (NILDAN) - MWN BERTHAGEGE HARGROVEAngelicDate of Service 02/03/2019 06:45HPI/Events o f Note eICU admission noteChief complaint-diabetic ketoacidosis.History of present illnessA 23-year-o ld male with a history of insulin-dependent diabetes mellitus was admitted to the ICU because of diab etic ketoacidosis. He presented to the ER with nausea vomiting and not able to keep anything down. EMR reviewed. Video assessment completed. He is in no apparent distress. On admission glucose was 475, bicarbonate 6.5 and anion gap 31.5. Chest x-ray is negative for pneumonia.eICU recommendationsD iabetic ketoacidosis secondary to noncompliance with insulin.Started on DKA protocol, on insulin drip .Gcoel-xk-edvs glucose every 1 hour and recommended BMP every 4 hours.As lactic acid is 2.9 and WBC 1 6,000, patient screened positive for severe sepsis.Already received 1 L of IV fluids, ordered 500 mL of normal saline to make 30 cc/kg IV fluids.Maintain map more than 65.Ordered blood culture, UA and w ill trend lactic acid.Did not start any antibiotics for now as there are no signs of infection. Order ed normal saline at 125 ml/hour after fluid bolus as per DKA protocol.Change IV fluids to D5 1/2 norm al saline, once glucose is less than 250. Case discussed with the bedside nurse.Thank you for allowin g us to participate in your patient care.Interventions [id number] disturbance - evaluation and m anagement, Hyperglycemia - active titration of insulin therapyIntermediate-Communication with other h ealthcare providers and/or family, Medication change / dose adjustment
[2019-02-03] MEDS ORDERED: Lidocaine 5% Oint 35.44 GM Tube TOP ONE ×2 (07:20→08:15)
[2019-02-03 08:25] LABS: BLOOD UREA NITROGEN,BUN 34 mg/dL (7.0-18.0); CARBON DIOXIDE,CO2 5.7 mmol/L (21.0-32.0); CHLORIDE,CL 103 mmol/L (98-107); GLUCOSE RANDOM 446 mg/dL (74-106); POTASSIUM,K 4.5 mmol/L (3.5-5.1); SODIUM,NA 139 mmol/L (136-148)
[2019-02-03] MEDS ORDERED: LORazepam 2 MG/ML SDV IVPUSH ONE (08:34)
--- NOTE | 2019-02-03 08:44 | PCM.HP.2 ---
H&P History of Present Illness - General Date of Service: 02/03/19 Admit Problem/Dx: Admission Diagnosis/Problem Admission Diagnosis/Problem Diabetic ketoacidosis without coma Source of Information: Patient, EMS Notes Reviewed - History of Present Illness Initial Comments - Free Text/Narative: A 23-year-old male with insulin-dependent diabetes history of chronic opioid abuse, and medical noncompliance; presenting with a persistent nausea/vomiting abdominal pain; initially presented to the ED on February 02; CT abdomen pelvis showed mild right-sided hydronephrosis of kidney; with no acute obstruction and or calculus noted; it is possible that patient may have passed a stone however no other obstruction was appreciated. Patient was found to be noncompliant with his medications including his insulin secondary to his nausea and vomiting ; presentation showed a high anion gap indicating DKA. Patient was initiated on insulin drip, intravenous fluids, and admitted to the ICU. Bedside: pt. complaining of worsening abdominal pain w. Nausea. +pruritus ; particularly of the back. Bedside bladder scan suggested urinary retention; straight cath performed w. >1 L output w. improvement of symptoms. P.t still c/ o shaking/chills; concern for opioid withdrawal; 1 ativan given. pt . mentions being on Zubsolve for 3-4 months with his last opioid withdrawal 3 -4 months prior (pt. is unsure of exact timing however) abdomen Pain Score (Numeric/FACES): 10 - Related Data Allergies/Adverse Reactions: Allergies Allergy/AdvReac Type Severity Reaction Status Date / Time morphine Allergy Itching Verified 02/03/19 03:49 Home Medications: Home Meds Insulin Aspart [NovoLOG] 5 units SUBCUT TIDAC 07/23/18 [History] Ferrous Sulfate [Iron] 325 mg PO BID 09/15/18 [History] Hyoscyamine [Hyomax-SL] 0.125 mg SL Q4H PRN #20 tab.sl 09/16/18 [Rx] Ondansetron [Zofran ODT] 4 mg PO Q6H PRN #20 tab.dis 09/16/18 [Rx] Buprenorphine HCl/Naloxone HCl [Zubsolv 5.7-1.4 mg Tablet Sl] 1 each SL DAILY [History] Insulin Glarg,Human.Rec.Analog [Lantus] 40 unit SUBCUT DAILY 12/18/18 [History] Diclofenac Sodium [Voltaren] 75 mg PO BID 02/02/19 [History] Methocarbamol [Robaxin] 500 mg PO TID #20 tablet 02/02/19 [Rx] Past Medical History - Past Health History Medical/Surgical History: Denies Medical/Surgical History HEENT History: Reports: Other (See Below) Other HEENT History: ear ache Cardiovascular History: Reports: None Respiratory History: Reports: None Gastrointestinal History: Reports: Irritable Bowel Syndrome Other Gastrointestinal History: gastropharesis Genitourinary History: Reports: Pyelonephritis, Other (See Below) Other Genitourinary History: hydronephrosis; with indwelling urinary catheter Musculoskeletal History: Reports: Fracture Other Musculoskeletal History: Elbow long time ago Neurological History: Reports: None Psychiatric History: Reports: Anxiety, Depression Endocrine/Metabolic History: Reports: Diabetes, Type I Other Endocrine/Metabolic History: non-compliant to DM medications Hematologic History: Reports: None Oncologic (Cancer) History: Reports: None Dermatologic History: Reports: Other (See Below) Other Dermatologic History: dry itchy skin - Infectious Disease History Infectious Disease History: Reports: None - Past Surgical History HEENT Surgical History: Reports: None GI Surgical History: Reports: None Male Surgical History: Reports: None Endocrine Surgical History: Reports: None Musculoskeletal Surgical History: Reports: None Dermatological Surgical History: Reports: None Social & Family History - Family History Family Medical History: Noncontributory OBGYN: Reports: Endocrine/Metabolic: Reports: Diabetes, Type I, Diabetes, type II - Tobacco Use Smoking Status *Q: Current Every Day Smoker Years of Tobacco use: 1 Packs/Tins Daily: 1 - Caffeine Use Caffeine Use: Reports: Coffee, Tea - Recreational Drug Use Recreational Drug Use: No - Living Situation & Occupation Living situation: Reports: Single, with Family Occupation: Unemployed H&P Review of Systems - Review of Systems: Review Of Systems: See Below General: Reports: Chills, Malaise, Fatigue, Decreased Appetite. Denies: Fever HEENT: Reports: Headaches Pulmonary: Denies: Shortness of Breath, Pleuritic Chest Pain, Cough Cardiovascular: Denies: Chest Pain, Palpitations, Edema Gastrointestinal: Reports: Abdominal Pain, Decreased Appetite, Nausea, Vomiting Genitourinary: Reports: No Symptoms Musculoskeletal: Reports: No Symptoms Skin: Reports: Pruritis. Denies: Rash Psychiatric: Reports: Depression, Anxiety. Denies: Hallucinations Neurological: Reports: Headache Exam - Exam Exam: See Below - Vital Signs Vital Signs: Last Vital Signs Temp 96.5 F 02/03/19 03:36 Pulse 130 H 02/03/19 05:46 Resp 18 02/03/19 05:46 BP 120/70 02/03/19 05:46 Pulse Ox 100 02/03/19 05:46 Weight: 120 lb - Exam General: Alert, Oriented, Mild Distress HEENT: EOMI, Other (dry oral mucosa) Neck: Supple, Trachea Midline Lungs: Clear to Auscultation, Normal Respiratory Effort Cardiovascular: Regular Rhythm, Tachycardia GI/Abdominal Exam: Other (+abdominal tenderness; no rebound tenderness. no rash apprecaited. +suprapubic tenderness; improved post-straight cath. ) Extremities: No Pedal Edema Skin: Warm, Dry Neuro Extensive - Mental Status: Alert, Oriented x3 Psychiatric: Anxious (mild shaking and chills at times ; concern for withdrawal w/ superimposed DKA. cutis anserina) - Patient Data Lab Results Last 24 hrs: Laboratory Results - last 24 hr 02/03/19 02/03/19 02/03/19 Range/Units 03:40 03:40 03:40 WBC 16.50 H (4.0-11.0) K/uL RBC 4.50 (4.50-5.90) M/uL Hgb 11.7 L (13.0-17.0) g/dL Hct 39.5 (38.0-50.0) % MCV 87.8 (80.0-98.0) fL MCH 26.0 L (27.0-32.0) pg MCHC 29.6 L (31.0-37.0) g/dL RDW Std Deviation 45.7 (28.0-62.0) fl RDW Coeff of Erika 14 (11.0-15.0) % Plt Count 258 (150-400) K/uL MPV 10.90 (7.40-12.00) fL Neut % (Auto) 86.1 H (48.0-80.0) % Lymph % (Auto) 9.2 L (16.0-40.0) % Lawrence % (Auto) 4.5 (0.0-15.0) % Eos % (Auto) 0.0 (0.0-7.0) % Baso % (Auto) 0.2 (0.0-1.5) % Neut # (Auto) 14.2 H (1.4-5.7) K/uL Lymph # (Auto) 1.5 (0.6-2.4) K/uL Lawrence # (Auto) 0.7 (0.0-0.8) K/uL Eos # (Auto) 0.0 (0.0-0.7) K/uL Baso # (Auto) 0.0 (0.0-0.1) K/uL Nucleated RBC % 0.0 /100WBC Nucleated RBCs # 0 K/uL VBG pH 7.06 L (7.31-7.41) VBG pCO2 17 L (35-45) mmHG VBG pO2 48 H (30-40) mmHG VBG HCO3 5 L (22-30) mEq/L VBG Total CO2 5 L (41-51) mmol/L VBG Base Excess -23.6 L (-3.0-3.0) Lactate (0.20-2.00) mmol/L Sodium 136 (136-148) mmol/L Potassium 5.0 (3.5-5.1) mmol/L Chloride 98 (98-107) mmol/L Carbon Dioxide 6.5 L (21.0-32.0) mmol/L BUN 29 H (7.0-18.0) mg/dL Creatinine 1.4 H (0.8-1.3) mg/dL Est Cr Clr Drug Dosing TNP Estimated GFR (MDRD) > 60.0 ml/min Glucose 475 H (74-106) mg/dL POC Glucose (60-110) mg/dL Calcium 10.6 H (8.5-10.1) mg/dL Total Bilirubin 0.7 (0.2-1.0) mg/dL AST 10 L (15-37) IU/L ALT 15 (14-63) IU/L Alkaline Phosphatase 145 H (46-116) U/L Total Protein 9.2 H (6.4-8.2) g/dL Albumin 2.8 L (3.4-5.0) g/dL Globulin 6.4 H (2.6-4.0) g/dL Albumin/Globulin Ratio 0.4 L (0.9-1.6) Lipase 32 L (73-393) U/L 02/03/19 02/03/19 02/03/19 Range/Units 03:40 03:45 05:43 WBC (4.0-11.0) K/uL RBC (4.50-5.90) M/uL Hgb (13.0-17.0) g/dL Hct (38.0-50.0) % MCV (80.0-98.0) fL MCH (27.0-32.0) pg MCHC (31.0-37.0) g/dL RDW Std Deviation (28.0-62.0) fl RDW Coeff of Erika (11.0-15.0) % Plt Count (150-400) K/uL MPV (7.40-12.00) fL Neut % (Auto) (48.0-80.0) % Lymph % (Auto) (16.0-40.0) % Lawrence % (Auto) (0.0-15.0) % Eos % (Auto) (0.0-7.0) % Baso % (Auto) (0.0-1.5) % Neut # (Auto) (1.4-5.7) K/uL Lymph # (Auto) (0.6-2.4) K/uL Lawrence # (Auto) (0.0-0.8) K/uL Eos # (Auto) (0.0-0.7) K/uL Baso # (Auto) (0.0-0.1) K/uL Nucleated RBC % /100WBC Nucleated RBCs # K/uL VBG pH (7.31-7.41) VBG pCO2 (35-45) mmHG VBG pO2 (30-40) mmHG VBG HCO3 (22-30) mEq/L VBG Total CO2 (41-51) mmol/L VBG Base Excess (-3.0-3.0) Lactate 2.9 H* (0.20-2.00) mmol/L Sodium (136-148) mmol/L Potassium (3.5-5.1) mmol/L Chloride (98-107) mmol/L Carbon Dioxide (21.0-32.0) mmol/L BUN (7.0-18.0) mg/dL Creatinine (0.8-1.3) mg/dL Est Cr Clr Drug Dosing Estimated GFR (MDRD) ml/min Glucose (74-106) mg/dL POC Glucose 472 H 451 H (60-110) mg/dL Calcium (8.5-10.1) mg/dL Total Bilirubin (0.2-1.0) mg/dL AST (15-37) IU/L ALT (14-63) IU/L Alkaline Phosphatase (46-116) U/L Total Protein (6.4-8.2) g/dL Albumin (3.4-5.0) g/dL Globulin (2.6-4.0) g/dL Albumin/Globulin Ratio (0.9-1.6) Lipase (73-393) U/L 02/03/19 02/03/19 02/03/19 Range/Units 06:12 08:02 08:02 WBC (4.0-11.0) K/uL RBC (4.50-5.90) M/uL Hgb (13.0-17.0) g/dL Hct (38.0-50.0) % MCV (80.0-98.0) fL MCH (27.0-32.0) pg MCHC (31.0-37.0) g/dL RDW Std Deviation (28.0-62.0) fl RDW Coeff of Erika (11.0-15.0) % Plt Count (150-400) K/uL MPV (7.40-12.00) fL Neut % (Auto) (48.0-80.0) % Lymph % (Auto) (16.0-40.0) % Lawrence % (Auto) (0.0-15.0) % Eos % (Auto) (0.0-7.0) % Baso % (Auto) (0.0-1.5) % Neut # (Auto) (1.4-5.7) K/uL Lymph # (Auto) (0.6-2.4) K/uL Lawrence # (Auto) (0.0-0.8) K/uL Eos # (Auto) (0.0-0.7) K/uL Baso # (Auto) (0.0-0.1) K/uL Nucleated RBC % /100WBC Nucleated RBCs # K/uL VBG pH (7.31-7.41) VBG pCO2 (35-45) mmHG VBG pO2 (30-40) mmHG VBG HCO3 (22-30) mEq/L VBG Total CO2 (41-51) mmol/L VBG Base Excess (-3.0-3.0) Lactate 3.8 H* (0.20-2.00) mmol/L Sodium 139 (136-148) mmol/L Potassium 4.5 (3.5-5.1) mmol/L Chloride 103 (98-107) mmol/L Carbon Dioxide 5.7 L (21.0-32.0) mmol/L BUN 34 H (7.0-18.0) mg/dL Creatinine 1.5 H (0.8-1.3) mg/dL Est Cr Clr Drug Dosing TNP Estimated GFR (MDRD) 59.1 ml/min Glucose 446 H (74-106) mg/dL POC Glucose 435 H (60-110) mg/dL Calcium 9.7 (8.5-10.1) mg/dL Total Bilirubin (0.2-1.0) mg/dL AST (15-37) IU/L ALT (14-63) IU/L Alkaline Phosphatase (46-116) U/L Total Protein (6.4-8.2) g/dL Albumin (3.4-5.0) g/dL Globulin (2.6-4.0) g/dL Albumin/Globulin Ratio (0.9-1.6) Lipase (73-393) U/L Result Diagrams: 02/03/19 03:40 02/03/19 08:02 Sepsis Event Note - Evaluation Sepsis Screening Result: No Definite Risk - Focused Exam Vital Signs: Vital Signs Temp Pulse Resp BP Pulse Ox 02/03/19 05:46 130 H 18 120/70 100 02/03/19 04:20 110 H 16 125/64 99 02/03/19 03:36 96.5 F 125 H 24 H 118/69 96 Date Exam was Performed: 02/03/19 Time Exam was Performed: 11:55 Problem List Initiated/Reviewed/Updated: Yes Orders Last 24hrs: Active Orders 24 hr Category Date Time Status Admission Status [Patient Status] [ADT] Stat ADT 02/03/19 05:36 Active EKG 12 Lead [EKG Documentation Completion] [RC] STAT Care 02/03/19 05:16 Active Urinary Catheter Assessment [RC] ASDIRECTED Care 02/03/19 07:23 Active Urinary Catheter Insertion [Insert Urinary Catheter] [ Care 02/03/19 07:30 Ordered OM.PC] Q24H NPO [Nothing Per Oral Diet] [DIET] Diet 02/03/19 Lunch Active BMP [BASIC METABOLIC PANEL,BMP] [CHEM] Q4H Lab 02/03/19 12:00 Ordered BMP [BASIC METABOLIC PANEL,BMP] [CHEM] Q4H Lab 02/03/19 16:00 Ordered BMP [BASIC METABOLIC PANEL,BMP] [CHEM] Q4H Lab 02/03/19 20:00 Ordered CULTURE BLOOD [BC] Stat Lab 02/03/19 06:55 Received CULTURE BLOOD [BC] Stat Lab 02/03/19 07:20 Received UA RFX YADY AND CULT IF INDIC [URIN] Stat Lab 02/03/19 05:11 Ordered Insulin Regular, Human [NovoLIN R] 100 unit Med 02/03/19 05:15 Active Sodium Chloride 0.9% [Normal Saline] 99 ml IV TITRATE Ondansetron [Zofran] Med 02/03/19 06:42 Active 4 mg IVPUSH Q4H PRN Sodium Chloride 0.9% [Normal Saline] 1,000 ml Med 02/03/19 06:45 Active IV ASDIRECTED Blood Culture x2 Reflex Set [OM.PC] Stat Oth 02/03/19 06:35 Ordered Medication Orders Insulin Human Regular 100 unit (/ Sodium Chloride) 100 mls @ 6 mls/hr IV TITRATE AUGUSTINE; Protocol Last Titration: 02/03/19 07:44 Dose: 13.5 unit/hr, 13.5 mls/hr Titration: 02/03/19 06:31 Dose: 9 unit/hr, 9 mls/hr Admin: 02/03/19 05:34 Dose: 6 unit/hr, 6 mls/hr Sodium Chloride (Normal Saline) 1,000 mls @ 125 mls/hr IV ASDIRECTED AUGUSTINE Ondansetron HCl (Zofran) 4 mg IVPUSH Q4H PRN PRN Reason: Nausea/Vomiting Stop: 02/04/19 06:00 Assessment/Plan Comment:: Assessment 1. DKA secondary to nausea/vomiting in the setting of medical noncompliance 2. History of chronic opioid abuse 3. Urinary tract infection with probable recent passage of calculus 4. Medical noncompliance Plan Admit inpatient. Full code. Activity: Up with assistance. Diet: N.p.o. 1. DKA: Continue insulin drip, monitor glucose q. hourly. BMP every 4 hours. Trend lactate. Patient received an additional 1 L bolus of normal saline. Switch to D5 1/2 NS if blood glucose less than 250 and anion gap open (per eICU rec). Continue to monitor vitals. 2. Opioid abuse: Advised patient to contact family to bring in home medication of ZUBSOLV; however at this time since concerns for withdrawal will also start 0.5 mg of Dilaudid every 4 hours as needed. Ativan 1 mg dose given this morning. Continue to monitor patient. 3. UTI: UA returned; awaiting cultures; initiate CTX 1 gram daily for now ; adjust w. cultures. COncner for recent passage of calculus; however CT/stone protocol suggest no stone; possible remaining debris. 4. Medical non-compliance: pt. admits to 40 units of Lantus daily and NovoLog TID w. meals; endorses missing doses; will continue to educate patient once DKA improves and mentation is at baseline. 4. pt. understood plan.
[2019-02-03] MEDS ORDERED: HYDROmorphone 2 MG/ML Syringe IVPUSH SCH (09:15)
[2019-02-03] MEDS: cefTRIAXone 1 GM in Sodium Chloride 0.9% 50 ML IV SCH (11:54)
[2019-02-03] MEDS: Dextrose 5%-0.45% NaCl 1,000 ML IV SCH ×5 (12:00→22:28)
[2019-02-03 12:27] LABS: BLOOD UREA NITROGEN,BUN 30 mg/dL (7.0-18.0); CARBON DIOXIDE,CO2 16.8 mmol/L (21.0-32.0); CHLORIDE,CL 112 mmol/L (98-107); GLUCOSE RANDOM 121 mg/dL (74-106); POTASSIUM,K 4.5 mmol/L (3.5-5.1); SODIUM,NA 146 mmol/L (136-148)
--- NOTE | 2019-02-03 14:31 | PCM.CONSN ---
Addendum entered and electronically signed by Nereida Dc MD 02/03/19 15:08 : Wrong patient :disregard Original Note: - General Info Date of Service: 02/03/19 Subjective Update: Seen at bedside: states she is feeling stronger compared to yesterday and is ambulating; states she does still feel "like she needs to recover" but otherwise has no other acute concerns at this time. Functional Status: Reports: Pain Controlled - Review of Systems General: Reports: Fatigue. Denies: Fever, Weakness, Chills HEENT: Reports: No Symptoms Pulmonary: Denies: Shortness of Breath, Cough, Sputum Cardiovascular: Reports: Dyspnea on Exertion. Denies: Chest Pain, Palpitations , Edema Gastrointestinal: Reports: Flatus. Denies: Abdominal Pain, Constipation, Diarrhea, Nausea, Vomiting Genitourinary: Reports: No Symptoms Neurological: Reports: No Symptoms. Denies: Confusion, Dizziness, Headache - Patient Data Vitals - Most Recent: Last Vital Signs Temp 96.6 F 02/03/19 06:15 Pulse 130 H 02/03/19 05:46 Resp 15 02/03/19 07:00 BP 123/82 02/03/19 07:00 Pulse Ox 100 02/03/19 07:00 Weight - Most Recent: 120 lb Lab Results Last 24 Hours: Laboratory Results - last 24 hr 02/03/19 02/03/19 02/03/19 Range/Units 03:40 03:40 03:40 WBC 16.50 H (4.0-11.0) K/uL RBC 4.50 (4.50-5.90) M/uL Hgb 11.7 L (13.0-17.0) g/dL Hct 39.5 (38.0-50.0) % MCV 87.8 (80.0-98.0) fL MCH 26.0 L (27.0-32.0) pg MCHC 29.6 L (31.0-37.0) g/dL RDW Std Deviation 45.7 (28.0-62.0) fl RDW Coeff of Erika 14 (11.0-15.0) % Plt Count 258 (150-400) K/uL MPV 10.90 (7.40-12.00) fL Neut % (Auto) 86.1 H (48.0-80.0) % Lymph % (Auto) 9.2 L (16.0-40.0) % [place] % (Auto) 4.5 (0.0-15.0) % Eos % (Auto) 0.0 (0.0-7.0) % Baso % (Auto) 0.2 (0.0-1.5) % Neut # (Auto) 14.2 H (1.4-5.7) K/uL Lymph # (Auto) 1.5 (0.6-2.4) K/uL [place] # (Auto) 0.7 (0.0-0.8) K/uL Eos # (Auto) 0.0 (0.0-0.7) K/uL Baso # (Auto) 0.0 (0.0-0.1) K/uL Nucleated RBC % 0.0 /100WBC Nucleated RBCs # 0 K/uL VBG pH 7.06 L (7.31-7.41) VBG pCO2 17 L (35-45) mmHG VBG pO2 48 H (30-40) mmHG VBG HCO3 5 L (22-30) mEq/L VBG Total CO2 5 L (41-51) mmol/L VBG Base Excess -23.6 L (-3.0-3.0) Lactate (0.20-2.00) mmol/L Sodium 136 (136-148) mmol/L Potassium 5.0 (3.5-5.1) mmol/L Chloride 98 (98-107) mmol/L Carbon Dioxide 6.5 L (21.0-32.0) mmol/L BUN 29 H (7.0-18.0) mg/dL Creatinine 1.4 H (0.8-1.3) mg/dL Est Cr Clr Drug Dosing TNP Estimated GFR (MDRD) > 60.0 ml/min Glucose 475 H (74-106) mg/dL POC Glucose (60-110) mg/dL Calcium 10.6 H (8.5-10.1) mg/dL Magnesium (1.8-2.4) mg/dL Total Bilirubin 0.7 (0.2-1.0) mg/dL AST 10 L (15-37) IU/L ALT 15 (14-63) IU/L Alkaline Phosphatase 145 H (46-116) U/L Total Protein 9.2 H (6.4-8.2) g/dL Albumin 2.8 L (3.4-5.0) g/dL Globulin 6.4 H (2.6-4.0) g/dL Albumin/Globulin Ratio 0.4 L (0.9-1.6) Lipase 32 L (73-393) U/L Urine Color Urine Appearance Urine pH (5.0-8.0) Ur Specific [place] (1.001-1.035) Urine Protein (NEGATIVE) mg/dL Urine Glucose (UA) (NEGATIVE) mg/dL Urine Ketones (NEGATIVE) mg/dL Urine Occult Blood (NEGATIVE) Urine Nitrite (NEGATIVE) Urine Bilirubin (NEGATIVE) Urine Urobilinogen (<2.0) EU/dL Ur Leukocyte Esterase (NEGATIVE) Urine RBC (0-2/HPF) Urine WBC (0-5/HPF) Ur Epithelial Cells (NONE-FEW) Urine Bacteria (NEGATIVE) Urine Mucus (NONE-MOD) 02/03/19 02/03/19 02/03/19 Range/Units 03:40 03:45 05:43 WBC (4.0-11.0) K/uL RBC (4.50-5.90) M/uL Hgb (13.0-17.0) g/dL Hct (38.0-50.0) % MCV (80.0-98.0) fL MCH (27.0-32.0) pg MCHC (31.0-37.0) g/dL RDW Std Deviation (28.0-62.0) fl RDW Coeff of Erika (11.0-15.0) % Plt Count (150-400) K/uL MPV (7.40-12.00) fL Neut % (Auto) (48.0-80.0) % Lymph % (Auto) (16.0-40.0) % [place] % (Auto) (0.0-15.0) % Eos % (Auto) (0.0-7.0) % Baso % (Auto) (0.0-1.5) % Neut # (Auto) (1.4-5.7) K/uL Lymph # (Auto) (0.6-2.4) K/uL [place] # (Auto) (0.0-0.8) K/uL Eos # (Auto) (0.0-0.7) K/uL Baso # (Auto) (0.0-0.1) K/uL Nucleated RBC % /100WBC Nucleated RBCs # K/uL VBG pH (7.31-7.41) VBG pCO2 (35-45) mmHG VBG pO2 (30-40) mmHG VBG HCO3 (22-30) mEq/L VBG Total CO2 (41-51) mmol/L VBG Base Excess (-3.0-3.0) Lactate 2.9 H* (0.20-2.00) mmol/L Sodium (136-148) mmol/L Potassium (3.5-5.1) mmol/L Chloride (98-107) mmol/L Carbon Dioxide (21.0-32.0) mmol/L BUN (7.0-18.0) mg/dL Creatinine (0.8-1.3) mg/dL Est Cr Clr Drug Dosing Estimated GFR (MDRD) ml/min Glucose (74-106) mg/dL POC Glucose 472 H 451 H (60-110) mg/dL Calcium (8.5-10.1) mg/dL Magnesium (1.8-2.4) mg/dL Total Bilirubin (0.2-1.0) mg/dL AST (15-37) IU/L ALT (14-63) IU/L Alkaline Phosphatase (46-116) U/L Total Protein (6.4-8.2) g/dL Albumin (3.4-5.0) g/dL Globulin (2.6-4.0) g/dL Albumin/Globulin Ratio (0.9-1.6) Lipase (73-393) U/L Urine Color Urine Appearance Urine pH (5.0-8.0) Ur Specific [place] (1.001-1.035) Urine Protein (NEGATIVE) mg/dL Urine Glucose (UA) (NEGATIVE) mg/dL Urine Ketones (NEGATIVE) mg/dL Urine Occult Blood (NEGATIVE) Urine Nitrite (NEGATIVE) Urine Bilirubin (NEGATIVE) Urine Urobilinogen (<2.0) EU/dL Ur Leukocyte Esterase (NEGATIVE) Urine RBC (0-2/HPF) Urine WBC (0-5/HPF) Ur Epithelial Cells (NONE-FEW) Urine Bacteria (NEGATIVE) Urine Mucus (NONE-MOD) 12/25/19 12/25/19 12/25/19 Range/Units 06:12 07:34 08:02 WBC (4.0-11.0) K/uL RBC (4.50-5.90) M/uL Hgb (13.0-17.0) g/dL Hct (38.0-50.0) % MCV (80.0-98.0) fL MCH (27.0-32.0) pg MCHC (31.0-37.0) g/dL RDW Std Deviation (28.0-62.0) fl RDW Coeff of Erika (11.0-15.0) % Plt Count (150-400) K/uL MPV (7.40-12.00) fL Neut % (Auto) (48.0-80.0) % Lymph % (Auto) (16.0-40.0) % [place] % (Auto) (0.0-15.0) % Eos % (Auto) (0.0-7.0) % Baso % (Auto) (0.0-1.5) % Neut # (Auto) (1.4-5.7) K/uL Lymph # (Auto) (0.6-2.4) K/uL [place] # (Auto) (0.0-0.8) K/uL Eos # (Auto) (0.0-0.7) K/uL Baso # (Auto) (0.0-0.1) K/uL Nucleated RBC % /100WBC Nucleated RBCs # K/uL VBG pH (7.31-7.41) VBG pCO2 (35-45) mmHG VBG pO2 (30-40) mmHG VBG HCO3 (22-30) mEq/L VBG Total CO2 (41-51) mmol/L VBG Base Excess (-3.0-3.0) Lactate 3.8 H* (0.20-2.00) mmol/L Sodium (136-148) mmol/L Potassium (3.5-5.1) mmol/L Chloride (98-107) mmol/L Carbon Dioxide (21.0-32.0) mmol/L BUN (7.0-18.0) mg/dL Creatinine (0.8-1.3) mg/dL Est Cr Clr Drug Dosing Estimated GFR (MDRD) ml/min Glucose (74-106) mg/dL POC Glucose 435 H 406 H (60-110) mg/dL Calcium (8.5-10.1) mg/dL Magnesium (1.8-2.4) mg/dL Total Bilirubin (0.2-1.0) mg/dL AST (15-37) IU/L ALT (14-63) IU/L Alkaline Phosphatase (46-116) U/L Total Protein (6.4-8.2) g/dL Albumin (3.4-5.0) g/dL Globulin (2.6-4.0) g/dL Albumin/Globulin Ratio (0.9-1.6) Lipase (73-393) U/L Urine Color Urine Appearance Urine pH (5.0-8.0) Ur Specific [place] (1.001-1.035) Urine Protein (NEGATIVE) mg/dL Urine Glucose (UA) (NEGATIVE) mg/dL Urine Ketones (NEGATIVE) mg/dL Urine Occult Blood (NEGATIVE) Urine Nitrite (NEGATIVE) Urine Bilirubin (NEGATIVE) Urine Urobilinogen (<2.0) EU/dL Ur Leukocyte Esterase (NEGATIVE) Urine RBC (0-2/HPF) Urine WBC (0-5/HPF) Ur Epithelial Cells (NONE-FEW) Urine Bacteria (NEGATIVE) Urine Mucus (NONE-MOD) 02/03/19 02/03/19 02/03/19 Range/Units 08:02 08:40 08:43 WBC (4.0-11.0) K/uL RBC (4.50-5.90) M/uL Hgb (13.0-17.0) g/dL Hct (38.0-50.0) % MCV (80.0-98.0) fL MCH (27.0-32.0) pg MCHC (31.0-37.0) g/dL RDW Std Deviation (28.0-62.0) fl RDW Coeff of Erika (11.0-15.0) % Plt Count (150-400) K/uL MPV (7.40-12.00) fL Neut % (Auto) (48.0-80.0) % Lymph % (Auto) (16.0-40.0) % [place] % (Auto) (0.0-15.0) % Eos % (Auto) (0.0-7.0) % Baso % (Auto) (0.0-1.5) % Neut # (Auto) (1.4-5.7) K/uL Lymph # (Auto) (0.6-2.4) K/uL [place] # (Auto) (0.0-0.8) K/uL Eos # (Auto) (0.0-0.7) K/uL Baso # (Auto) (0.0-0.1) K/uL Nucleated RBC % /100WBC Nucleated RBCs # K/uL VBG pH (7.31-7.41) VBG pCO2 (35-45) mmHG VBG pO2 (30-40) mmHG VBG HCO3 (22-30) mEq/L VBG Total CO2 (41-51) mmol/L VBG Base Excess (-3.0-3.0) Lactate (0.20-2.00) mmol/L Sodium 139 (136-148) mmol/L Potassium 4.5 (3.5-5.1) mmol/L Chloride 103 (98-107) mmol/L Carbon Dioxide 5.7 L (21.0-32.0) mmol/L BUN 34 H (7.0-18.0) mg/dL Creatinine 1.5 H (0.8-1.3) mg/dL Est Cr Clr Drug Dosing TNP Estimated GFR (MDRD) 59.1 ml/min Glucose 446 H (74-106) mg/dL POC Glucose 362 H (60-110) mg/dL Calcium 9.7 (8.5-10.1) mg/dL Magnesium (1.8-2.4) mg/dL Total Bilirubin (0.2-1.0) mg/dL AST (15-37) IU/L ALT (14-63) IU/L Alkaline Phosphatase (46-116) U/L Total Protein (6.4-8.2) g/dL Albumin (3.4-5.0) g/dL Globulin (2.6-4.0) g/dL Albumin/Globulin Ratio (0.9-1.6) Lipase (73-393) U/L Urine Color YELLOW Urine Appearance HAZY Urine pH 5.5 (5.0-8.0) Ur Specific [place] 1.025 (1.001-1.035) Urine Protein TRACE H (NEGATIVE) mg/dL Urine Glucose (UA) 500 H (NEGATIVE) mg/dL Urine Ketones >=80 (NEGATIVE) mg/dL Urine Occult Blood SMALL H (NEGATIVE) Urine Nitrite POSITIVE H (NEGATIVE) Urine Bilirubin NEGATIVE (NEGATIVE) Urine Urobilinogen 0.2 (<2.0) EU/dL Ur Leukocyte Esterase NEGATIVE (NEGATIVE) Urine RBC 1-3 (0-2/HPF) Urine WBC 3-5 (0-5/HPF) Ur Epithelial Cells OCCASIONAL (NONE-FEW) Urine Bacteria FEW (NEGATIVE) Urine Mucus LIGHT (NONE-MOD) 02/03/19 02/03/19 02/03/19 Range/Units 10:10 11:17 12:00 WBC (4.0-11.0) K/uL RBC (4.50-5.90) M/uL Hgb (13.0-17.0) g/dL Hct (38.0-50.0) % MCV (80.0-98.0) fL MCH (27.0-32.0) pg MCHC (31.0-37.0) g/dL RDW Std Deviation (28.0-62.0) fl RDW Coeff of Erika (11.0-15.0) % Plt Count (150-400) K/uL MPV (7.40-12.00) fL Neut % (Auto) (48.0-80.0) % Lymph % (Auto) (16.0-40.0) % [place] % (Auto) (0.0-15.0) % Eos % (Auto) (0.0-7.0) % Baso % (Auto) (0.0-1.5) % Neut # (Auto) (1.4-5.7) K/uL Lymph # (Auto) (0.6-2.4) K/uL [place] # (Auto) (0.0-0.8) K/uL Eos # (Auto) (0.0-0.7) K/uL Baso # (Auto) (0.0-0.1) K/uL Nucleated RBC % /100WBC Nucleated RBCs # K/uL VBG pH (7.31-7.41) VBG pCO2 (35-45) mmHG VBG pO2 (30-40) mmHG VBG HCO3 (22-30) mEq/L VBG Total CO2 (41-51) mmol/L VBG Base Excess (-3.0-3.0) Lactate (0.20-2.00) mmol/L Sodium 146 (136-148) mmol/L Potassium 4.5 (3.5-5.1) mmol/L Chloride 112 H (98-107) mmol/L Carbon Dioxide 16.8 L (21.0-32.0) mmol/L BUN 30 H (7.0-18.0) mg/dL Creatinine 1.2 (0.8-1.3) mg/dL Est Cr Clr Drug Dosing TNP Estimated GFR (MDRD) > 60.0 ml/min Glucose 121 H (74-106) mg/dL POC Glucose 218 H 137 H (60-110) mg/dL Calcium 9.5 (8.5-10.1) mg/dL Magnesium 2.0 (1.8-2.4) mg/dL Total Bilirubin (0.2-1.0) mg/dL AST (15-37) IU/L ALT (14-63) IU/L Alkaline Phosphatase (46-116) U/L Total Protein (6.4-8.2) g/dL Albumin (3.4-5.0) g/dL Globulin (2.6-4.0) g/dL Albumin/Globulin Ratio (0.9-1.6) Lipase (73-393) U/L Urine Color Urine Appearance Urine pH (5.0-8.0) Ur Specific [place] (1.001-1.035) Urine Protein (NEGATIVE) mg/dL Urine Glucose (UA) (NEGATIVE) mg/dL Urine Ketones (NEGATIVE) mg/dL Urine Occult Blood (NEGATIVE) Urine Nitrite (NEGATIVE) Urine Bilirubin (NEGATIVE) Urine Urobilinogen (<2.0) EU/dL Ur Leukocyte Esterase (NEGATIVE) Urine RBC (0-2/HPF) Urine WBC (0-5/HPF) Ur Epithelial Cells (NONE-FEW) Urine Bacteria (NEGATIVE) Urine Mucus (NONE-MOD) 02/03/19 02/03/19 02/03/19 Range/Units 12:00 12:03 13:01 WBC (4.0-11.0) K/uL RBC (4.50-5.90) M/uL Hgb (13.0-17.0) g/dL Hct (38.0-50.0) % MCV (80.0-98.0) fL MCH (27.0-32.0) pg MCHC (31.0-37.0) g/dL RDW Std Deviation (28.0-62.0) fl RDW Coeff of Erika (11.0-15.0) % Plt Count (150-400) K/uL MPV (7.40-12.00) fL Neut % (Auto) (48.0-80.0) % Lymph % (Auto) (16.0-40.0) % [place] % (Auto) (0.0-15.0) % Eos % (Auto) (0.0-7.0) % Baso % (Auto) (0.0-1.5) % Neut # (Auto) (1.4-5.7) K/uL Lymph # (Auto) (0.6-2.4) K/uL [place] # (Auto) (0.0-0.8) K/uL Eos # (Auto) (0.0-0.7) K/uL Baso # (Auto) (0.0-0.1) K/uL Nucleated RBC % /100WBC Nucleated RBCs # K/uL VBG pH (7.31-7.41) VBG pCO2 (35-45) mmHG VBG pO2 (30-40) mmHG VBG HCO3 (22-30) mEq/L VBG Total CO2 (41-51) mmol/L VBG Base Excess (-3.0-3.0) Lactate 1.4 (0.20-2.00) mmol/L Sodium (136-148) mmol/L Potassium (3.5-5.1) mmol/L Chloride (98-107) mmol/L Carbon Dioxide (21.0-32.0) mmol/L BUN (7.0-18.0) mg/dL Creatinine (0.8-1.3) mg/dL Est Cr Clr Drug Dosing Estimated GFR (MDRD) ml/min Glucose (74-106) mg/dL POC Glucose 113 H 97 (60-110) mg/dL Calcium (8.5-10.1) mg/dL Magnesium (1.8-2.4) mg/dL Total Bilirubin (0.2-1.0) mg/dL AST (15-37) IU/L ALT (14-63) IU/L Alkaline Phosphatase (46-116) U/L Total Protein (6.4-8.2) g/dL Albumin (3.4-5.0) g/dL Globulin (2.6-4.0) g/dL Albumin/Globulin Ratio (0.9-1.6) Lipase (73-393) U/L Urine Color Urine Appearance Urine pH (5.0-8.0) Ur Specific [place] (1.001-1.035) Urine Protein (NEGATIVE) mg/dL Urine Glucose (UA) (NEGATIVE) mg/dL Urine Ketones (NEGATIVE) mg/dL Urine Occult Blood (NEGATIVE) Urine Nitrite (NEGATIVE) Urine Bilirubin (NEGATIVE) Urine Urobilinogen (<2.0) EU/dL Ur Leukocyte Esterase (NEGATIVE) Urine RBC (0-2/HPF) Urine WBC (0-5/HPF) Ur Epithelial Cells (NONE-FEW) Urine Bacteria (NEGATIVE) Urine Mucus (NONE-MOD) 02/03/19 Range/Units 14:07 WBC (4.0-11.0) K/uL RBC (4.50-5.90) M/uL Hgb (13.0-17.0) g/dL Hct (38.0-50.0) % MCV (80.0-98.0) fL MCH (27.0-32.0) pg MCHC (31.0-37.0) g/dL RDW Std Deviation (28.0-62.0) fl RDW Coeff of Erika (11.0-15.0) % Plt Count (150-400) K/uL MPV (7.40-12.00) fL Neut % (Auto) (48.0-80.0) % Lymph % (Auto) (16.0-40.0) % [place] % (Auto) (0.0-15.0) % Eos % (Auto) (0.0-7.0) % Baso % (Auto) (0.0-1.5) % Neut # (Auto) (1.4-5.7) K/uL Lymph # (Auto) (0.6-2.4) K/uL [place] # (Auto) (0.0-0.8) K/uL Eos # (Auto) (0.0-0.7) K/uL Baso # (Auto) (0.0-0.1) K/uL Nucleated RBC % /100WBC Nucleated RBCs # K/uL VBG pH (7.31-7.41) VBG pCO2 (35-45) mmHG VBG pO2 (30-40) mmHG VBG HCO3 (22-30) mEq/L VBG Total CO2 (41-51) mmol/L VBG Base Excess (-3.0-3.0) Lactate (0.20-2.00) mmol/L Sodium (136-148) mmol/L Potassium (3.5-5.1) mmol/L Chloride (98-107) mmol/L Carbon Dioxide (21.0-32.0) mmol/L BUN (7.0-18.0) mg/dL Creatinine (0.8-1.3) mg/dL Est Cr Clr Drug Dosing Estimated GFR (MDRD) ml/min Glucose (74-106) mg/dL POC Glucose 88 (60-110) mg/dL Calcium (8.5-10.1) mg/dL Magnesium (1.8-2.4) mg/dL Total Bilirubin (0.2-1.0) mg/dL AST (15-37) IU/L ALT (14-63) IU/L Alkaline Phosphatase (46-116) U/L Total Protein (6.4-8.2) g/dL Albumin (3.4-5.0) g/dL Globulin (2.6-4.0) g/dL Albumin/Globulin Ratio (0.9-1.6) Lipase (73-393) U/L Urine Color Urine Appearance Urine pH (5.0-8.0) Ur Specific [place] (1.001-1.035) Urine Protein (NEGATIVE) mg/dL Urine Glucose (UA) (NEGATIVE) mg/dL Urine Ketones (NEGATIVE) mg/dL Urine Occult Blood (NEGATIVE) Urine Nitrite (NEGATIVE) Urine Bilirubin (NEGATIVE) Urine Urobilinogen (<2.0) EU/dL Ur Leukocyte Esterase (NEGATIVE) Urine RBC (0-2/HPF) Urine WBC (0-5/HPF) Ur Epithelial Cells (NONE-FEW) Urine Bacteria (NEGATIVE) Urine Mucus (NONE-MOD) Med Orders - Current: Current Medications Hydromorphone HCl (Dilaudid) 0.5 mg IVPUSH Q4H [facility] Insulin Human Regular 100 unit (/ Sodium Chloride) 100 mls @ 6 mls/hr IV TITRATE [facility]; Protocol Last Admin: 02/03/19 14:02 Dose: 7.5 unit/hr, 7.5 mls/hr Ceftriaxone Sodium 1 gm/ (Sodium Chloride) 50 mls @ 100 mls/hr IV Q24H [facility] Last Admin: 02/03/19 11:54 Dose: 100 mls/hr Dextrose/Sodium Chloride (Dextrose 5%-1/2 Ns) 1,000 mls @ 125 mls/hr IV ASDIRECTED [facility] Last Infusion: 02/03/19 14:24 Dose: 250 mls/hr Ondansetron HCl (Zofran) 4 mg IVPUSH Q4H PRN PRN Reason: Nausea/Vomiting Stop: 02/04/19 06:00 Discontinued Medications Diphenhydramine HCl (Benadryl) 50 mg IVPUSH ONETIME ONE Stop: 02/03/19 03:58 Last Admin: 02/03/19 04:06 Dose: 50 mg Diphenhydramine HCl (Benadryl) Confirm Administered Dose 50 mg .ROUTE .STK-MED ONE Stop: 02/03/19 04:00 Last Admin: 02/03/19 04:04 Dose: Not Given Diphenhydramine HCl (Benadryl) 25 mg IVPUSH ONETIME ONE Stop: 02/03/19 04:04 Last Admin: 02/03/19 04:11 Dose: Not Given Hydromorphone HCl (Dilaudid) 1 mg IM ONETIME ONE Stop: 02/03/19 05:25 Last Admin: 02/03/19 05:36 Dose: Not Given Hydromorphone HCl (Dilaudid) 1 mg IVPUSH ONETIME ONE Stop: 02/03/19 05:39 Last Admin: 02/03/19 05:38 Dose: 1 mg Hydromorphone HCl (Dilaudid) 0.5 mg IVPUSH Q4H [facility] Last Admin: 02/03/19 11:53 Dose: 0.5 mg Sodium Chloride (Normal Saline) 1,000 mls @ 999 mls/hr IV .Bolus ONE Stop: 02/03/19 04:54 Last Admin: 02/03/19 04:02 Dose: 999 mls/hr Sodium Chloride (Normal Saline) 500 mls @ 999 mls/hr IV .BOLUS ONE Stop: 02/03/19 07:08 Last Admin: 02/03/19 06:40 Dose: 999 mls/hr Sodium Chloride (Normal Saline) 1,000 mls @ 125 mls/hr IV ASDIRECTED [facility] Last Admin: 02/03/19 10:47 Dose: 125 mls/hr Sodium Chloride (Normal Saline) 1,000 mls @ 999 mls/hr IV STAT ONE Stop: 02/03/19 09:58 Last Admin: 02/03/19 09:09 Dose: 999 mls/hr Insulin Human Regular (Novolin R) 10 unit IVPUSH ONETIME ONE; Protocol Stop: 02/03/19 04:31 Last Admin: 02/03/19 04:37 Dose: 10 unit Lidocaine HCl (Lidocaine 5%) 2 gm TOP ONETIME ONE Stop: 02/03/19 07:21 Last Admin: 02/03/19 08:33 Dose: Not Given Lidocaine HCl (Lidocaine 5%) 2 gm TOP ONETIME ONE Stop: 02/03/19 08:16 Last Admin: 02/03/19 09:01 Dose: 2 gm Lorazepam (Ativan) 1 mg IVPUSH ONETIME ONE Stop: 02/03/19 08:35 Last Admin: 02/03/19 09:01 Dose: 1 mg Metoclopramide HCl (Reglan) 10 mg IVPUSH ONETIME ONE Stop: 02/03/19 03:58 Last Admin: 02/03/19 04:06 Dose: 10 mg Metoclopramide HCl (Reglan) Confirm Administered Dose 10 mg .ROUTE .STK-MED ONE Stop: 02/03/19 04:00 Last Admin: 02/03/19 04:04 Dose: Not Given Ondansetron HCl (Zofran) 4 mg IVPUSH ONETIME ONE Stop: 02/03/19 04:30 Last Admin: 02/03/19 04:37 Dose: 4 mg - Exam Quality Assessment: Supplemental Oxygen General: Alert, Oriented, Cooperative, No Acute Distress HEENT: EOMI, Mucous Membr. Moist/[place] Neck: Supple Lungs: Other (moving ra well; minimal coarse BS ) Cardiovascular: Regular Rhythm, Tachycardia GI/Abdominal Exam: Other (interval improvement if abdomainal tenderness; no rebound tenderness. dressing in-situ :not soaked through comapred to yesterday. ) Extremities: No Pedal Edema, Other (trace edema of buttocks (dependent area) ) Skin: Warm Wound/Incisions: Healing Well, Dressing Dry and Intact Neurological: No New Focal Deficit Psy/Mental Status: Alert, Normal Affect, Normal Mood Sepsis Event Note - Evaluation Sepsis Screening Result: No Definite Risk - Focused Exam Vital Signs: Vital Signs Temp Pulse Resp BP Pulse Ox 02/03/19 07:00 15 123/82 100 02/03/19 06:15 96.6 F 15 128/80 100 02/03/19 05:46 130 H 18 120/70 100 02/03/19 04:20 110 H 16 125/64 99 02/03/19 03:36 96.5 F 125 H 24 H 118/69 96 Date Exam was Performed: 02/03/19 Time Exam was Performed: 14:35 Consult PN Assessment/Plan Procedures: Procedures ASSAY OF AMYLASE (09/15/18) ASSAY OF CALCIUM (04/17/16) ASSAY OF FERRITIN (07/27/18) ASSAY OF LIPASE (09/16/18) ASSAY OF MAGNESIUM (07/23/18) ASSAY OF PHOSPHORUS (07/23/18) ASSAY OF TROPONIN QUANT (01/08/16) BLOOD CULTURE FOR BACTERIA (07/27/18) BLOOD GASES ANY COMBINATION (09/15/18) BLOOD TYPING SEROLOGIC ABO (09/16/18) BLOOD TYPING SEROLOGIC RH(D) (09/16/18) CHEST X-RAY 1 VIEW FRONTAL (01/08/16) COMPLETE CBC AUTOMATED (07/27/18) COMPLETE CBC W/AUTO DIFF WBC (01/12/19) COMPREHEN METABOLIC PANEL (01/12/19) CT ABD & PELV W/CONTRAST (07/23/18) DRUG TEST PRSMV DIR OPT OBS (09/15/18) ECHO EXAM OF ABDOMEN (09/17/18) ELECTROCARDIOGRAM TRACING (09/08/18) EMERGENCY DEPT VISIT (12/18/18) EMERGENCY DEPT VISIT (09/24/18) EMERGENCY DEPT VISIT (09/17/18) EMERGENCY DEPT VISIT (09/08/18) EMERGENCY DEPT VISIT (09/05/18) EMERGENCY DEPT VISIT (08/30/18) EMERGENCY DEPT VISIT (08/26/18) EMERGENCY DEPT VISIT (07/27/18) GLUCOSE BLOOD TEST (12/18/18) GLYCOSYLATED HEMOGLOBIN TEST (01/12/19) HYDRATE IV INFUSION ADD-ON (12/18/18) HYDRATION IV INFUSION INIT (12/18/18) INSERT TEMP BLADDER CATH (07/23/18) IRON BINDING TEST (07/27/18) LIPID PANEL (04/17/16) MEDICAL NUTRITION INDIV IN (04/17/16) METABOLIC PANEL TOTAL CA (07/27/18) MICROBE SUSCEPTIBLE YADY (09/15/18) PROTHROMBIN TIME (09/16/18) RBC ANTIBODY SCREEN (09/16/18) ROUTINE VENIPUNCTURE (01/12/19) TEST FOR ACETONE/KETONES (09/15/18) THER/DIAG CONCURRENT INF (04/17/16) THER/PROPH/DIAG INJ IV PUSH (09/17/18) THER/PROPH/DIAG INJ SC/IM (09/24/18) THER/PROPH/DIAG IV INF INIT (08/26/18) THROMBOPLASTIN TIME PARTIAL (09/16/18) TX/PRO/DX INJ NEW DRUG ADDON (09/17/18) TX/PRO/DX INJ SAME DRUG DATA CENTER PROJECT MANAGER (07/27/18) TX/PROPH/DG ADDL SEQ IV INF (07/23/18) UR ALBUMIN SEMIQUANTITATIVE (01/12/19) URINALYSIS AUTO W/O SCOPE (09/05/18) URINALYSIS AUTO W/SCOPE (09/16/18) URINE BACTERIA CULTURE (09/15/18) URINE CULTURE/COLONY COUNT (09/16/18) US EXAM ABDO BACK WALL BLAS (07/23/18) US URINE CAPACITY MEASURE (07/23/18) WITHDRAWAL OF ARTERIAL BLOOD (09/05/18) X-RAY EXAM ABDOMEN 1 VIEW (09/16/18) X-RAY EXAM CHEST 1 VIEW (09/16/18) X-RAY EXAM COMPLETE ABDOMEN (09/15/18) Problem List Initiated/Reviewed/Updated: Yes My Orders Last 24 Hours: My Active Orders 02/03/19 07:23 Urinary Catheter Assessment [RC] ASDIRECTED 02/03/19 07:30 Urinary Catheter Insertion [Insert Urinary Catheter] [OM.PC] Q24H 02/03/19 09:00 cefTRIAXone [Rocephin] 1 gm Sodium Chloride 0.9% [Normal Saline] 50 ml IV Q24H 02/03/19 11:57 Code Status [Resuscitation Status] Routine 02/03/19 11:58 Antiembolic Devices [RC] PER UNIT ROUTINE Up With Assistance [RC] ASDIRECTED SCD [Sequential Compression Device] [OM.PC] Routine 02/03/19 12:00 Dextrose 5%-0.45% NaCl [Dextrose 5%-1/2 NS] 1,000 ml IV ASDIRECTED 02/03/19 16:00 LACTATE WITH REFLEX [BG] Routine HYDROmorphone [Dilaudid] 0.5 mg IVPUSH Q4H 02/03/19 Lunch NPO [Nothing Per Oral Diet] [DIET] Plan: Assessment: 1. POD 6 for acute cholecystitis s/p cholecystectomy. 2. Leukocytosis secondary to above; improving Plan: 1. With concerns for tachycardia and pt desaturating w/o O2 on ambulation : will order a CT angio/PE protocol. Will also order a CT abdomen pelvis to r/o any abscess formation. 2. Continue Zosyn as leukocytosis is improving and pt. is clinically stable. Follow-up: Concerns for RUL and LLL peripheral arterial emboli discussed with reading Radiologist: heparin drip per protocol initiated. Advised pt. to continue to ambulate and use IS. Discussed results of amb/pelvis w. primary team : recommending close monitoring for now. pt. understood plan. all questions answered.
[2019-02-03 16:03] LABS: BLOOD UREA NITROGEN,BUN 29 mg/dL (7.0-18.0); CARBON DIOXIDE,CO2 18.6 mmol/L (21.0-32.0); CHLORIDE,CL 113 mmol/L (98-107); GLUCOSE RANDOM 101 mg/dL (74-106); POTASSIUM,K 3.2 mmol/L (3.5-5.1); SODIUM,NA 145 mmol/L (136-148)
--- NOTE | 2019-02-03 16:30 | PN ---
TH[facility] Physician - Brief Progress [id number]/25/2019 16:28[facility] italoEddie, FRANK - BETHANY (TAYLOR) - GEGE BHATTDate of Service 02/03/2019 16:28HPI/Events o f Note eICU Update NoteAnion gap closed - will initiate subcutaneous insulin and discontinue insulin drip 2 hours after initiation. Replacement KCl ordered.Interventions Major-Hyperglycemia - active tit ration of insulin therapy
[2019-02-03] MEDS ORDERED: Insulin Regular, Human 100 Units/ML 10 ML Vial IVPUSH SCH (17:00)
[2019-02-03] MEDS: Ondansetron 4 MG/2 ML SDV IVPUSH PRN (17:26)
[2019-02-03] MEDS: Insulin Regular, Human 100 Units/ML 10 ML Vial SUBCUT SCH ×2 (17:36→21:29)
[2019-02-03] MEDS: Potassium Chloride Riders 20 MEQ in Premix Bag 1 BAG IV ONE ×2 (17:36→18:06)
[2019-02-03] MEDS: Insulin Glargine,Human Rec. Analog 100 Units/ML 3 ML Pen SUBCUT SCH (18:08)
[2019-02-03] MEDS ORDERED: 50% Dextrose in Water 50 ML Syringe IVPUSH ONE ×2 (19:07→23:12)
[2019-02-03] MEDS: HYDROmorphone 1 MG/ML Syringe IVPUSH SCH ×2 (19:32→20:38)
[2019-02-03] MEDS ORDERED: Potassium Chloride 10% 20 MEQ/15 ML Soln 15 ML UD Cup PO SCH (20:00)
[2019-02-03 20:24] LABS: BLOOD UREA NITROGEN,BUN 25 mg/dL (7.0-18.0); CARBON DIOXIDE,CO2 19.3 mmol/L (21.0-32.0); CHLORIDE,CL 112 mmol/L (98-107); GLUCOSE RANDOM 155 mg/dL (74-106); POTASSIUM,K 3.3 mmol/L (3.5-5.1); SODIUM,NA 143 mmol/L (136-148)
[2019-02-03] MEDS ORDERED: Potassium Chloride Riders 40 MEQ in Premix Bag 1 BAG IV ONE (21:38)
--- NOTE | 2019-02-03 23:19 | PN ---
THC Physician - Brief Progress [id number]/25/2019 23:16[facility] Eddie Keller, FRANK - BETHANY (TAYLOR) - GEGE BHATTDate of Service 02/03/2019 23:16HPI/Events o f Note Overnight events.Called for hypoglycemia blood sugar 51. Patient on Ibsulin drip 10 units/hr a nd D5 half normal saline at 250 mL/hr per DKA protocol. A/P:DKA, now with hypoglycemia.Hold Insulin d rip - will restart at lower rate once blood sugar 120 and above.Continuw D5 half normal saline drip c urent rate.Give D50W one amp and follow blood sugars every 30 minute, reporting if below 70 or above 120.Interventions Intermediate-Other: DKA management
[2019-02-04] MEDS: HYDROmorphone 1 MG/ML Syringe IVPUSH SCH ×3 (00:03→08:00)
[2019-02-04 00:47] LABS: BLOOD UREA NITROGEN,BUN 19 mg/dL (7.0-18.0); CARBON DIOXIDE,CO2 19.7 mmol/L (21.0-32.0); CHLORIDE,CL 112 mmol/L (98-107); GLUCOSE RANDOM 185 mg/dL (74-106); POTASSIUM,K 3.8 mmol/L (3.5-5.1); SODIUM,NA 142 mmol/L (136-148)
[2019-02-04] MEDS: Ondansetron 4 MG/2 ML SDV IVPUSH PRN ×2 (00:50→05:22)
[2019-02-04] MEDS: Dextrose 5%-0.45% NaCl 1,000 ML IV SCH ×2 (02:20→06:23)
[2019-02-04 06:09] LABS: BLOOD UREA NITROGEN,BUN 13 mg/dL (7.0-18.0); CARBON DIOXIDE,CO2 20.1 mmol/L (21.0-32.0); CHLORIDE,CL 110 mmol/L (98-107); GLUCOSE RANDOM 121 mg/dL (74-106); POTASSIUM,K 3.3 mmol/L (3.5-5.1); SODIUM,NA 141 mmol/L (136-148)
[2019-02-04] MEDS: Insulin Regular, Human 100 Units/ML 10 ML Vial SUBCUT SCH ×4 (07:36→21:23)
[2019-02-04] MEDS ORDERED: Metoclopramide 10 MG/2 ML SDV IVPUSH ONE (08:37)
[2019-02-04] MEDS: cefTRIAXone 1 GM in Sodium Chloride 0.9% 50 ML IV SCH (08:41)
[2019-02-04] MEDS ORDERED: LORazepam 2 MG/ML SDV IVPUSH PRN (08:49)
[2019-02-04] MEDS: Sodium Chloride 0.9% 1,000 ML IV SCH ×2 (09:14→17:00)
[2019-02-04] MEDS ORDERED: Potassium Chloride 20 MEQ Tab.ER PO ONE (10:53)
--- NOTE | 2019-02-04 10:54 | PCM.PN ---
- General Info Date of Service: 02/04/19 Subjective Update: Bedside: pt. c/o continual Nausea and abdominal pain and decrease in appetite. States he had vomited prior to rounds this AM - Review of Systems General: Reports: Malaise, Chills. Denies: Fever, Weakness, Appetite HEENT: Reports: No Symptoms Pulmonary: Reports: No Symptoms Cardiovascular: Reports: No Symptoms Gastrointestinal: Reports: Abdominal Pain (improving ), Decreased Appetite, Nausea, Vomiting. Denies: Diarrhea Genitourinary: Reports: No Symptoms Musculoskeletal: Reports: No Symptoms Neurological: Reports: No Symptoms - Patient Data Vitals - Most Recent: Last Vital Signs Temp 97.6 F 02/04/19 07:56 Pulse 130 H 02/03/19 05:46 Resp 16 02/04/19 10:00 BP 123/84 02/04/19 10:00 Pulse Ox 99 02/04/19 10:00 Weight - Most Recent: 116 lb 4.8 oz I&O - Last 24 Hours: Intake & Output 02/03/19 02/04/19 02/04/19 22:59 06:59 14:59 Intake Total 3263 [id number] Output Total 2350 Balance 913 [id number] Lab Results Last 24 Hours: Laboratory Results - last 24 hr 02/03/19 02/03/19 02/03/19 Range/Units 11:17 12:00 12:00 WBC (4.0-11.0) K/uL RBC (4.50-5.90) M/uL Hgb (13.0-17.0) g/dL Hct (38.0-50.0) % MCV (80.0-98.0) fL MCH (27.0-32.0) pg MCHC (31.0-37.0) g/dL RDW Std Deviation (28.0-62.0) fl RDW Coeff of Erika (11.0-15.0) % Plt Count (150-400) K/uL MPV (7.40-12.00) fL Neut % (Auto) (48.0-80.0) % Lymph % (Auto) (16.0-40.0) % [place] % (Auto) (0.0-15.0) % Eos % (Auto) (0.0-7.0) % Baso % (Auto) (0.0-1.5) % Neut # (Auto) (1.4-5.7) K/uL Lymph # (Auto) (0.6-2.4) K/uL [place] # (Auto) (0.0-0.8) K/uL Eos # (Auto) (0.0-0.7) K/uL Baso # (Auto) (0.0-0.1) K/uL Nucleated RBC % /100WBC Nucleated RBCs # K/uL Lactate 1.4 (0.20-2.00) mmol/L Sodium 146 (136-148) mmol/L Potassium 4.5 (3.5-5.1) mmol/L Chloride 112 H (98-107) mmol/L Carbon Dioxide 16.8 L (21.0-32.0) mmol/L BUN 30 H (7.0-18.0) mg/dL Creatinine 1.2 (0.8-1.3) mg/dL Est Cr Clr Drug Dosing TNP Estimated GFR (MDRD) > 60.0 ml/min Glucose 121 H (74-106) mg/dL POC Glucose 137 H (60-110) mg/dL Calcium 9.5 (8.5-10.1) mg/dL Magnesium 2.0 (1.8-2.4) mg/dL Total Bilirubin (0.2-1.0) mg/dL AST (15-37) IU/L ALT (14-63) IU/L Alkaline Phosphatase (46-116) U/L Total Protein (6.4-8.2) g/dL Albumin (3.4-5.0) g/dL Globulin (2.6-4.0) g/dL Albumin/Globulin Ratio (0.9-1.6) 02/03/19 02/03/19 02/03/19 Range/Units 12:03 13:01 14:07 WBC (4.0-11.0) K/uL RBC (4.50-5.90) M/uL Hgb (13.0-17.0) g/dL Hct (38.0-50.0) % MCV (80.0-98.0) fL MCH (27.0-32.0) pg MCHC (31.0-37.0) g/dL RDW Std Deviation (28.0-62.0) fl RDW Coeff of Erika (11.0-15.0) % Plt Count (150-400) K/uL MPV (7.40-12.00) fL Neut % (Auto) (48.0-80.0) % Lymph % (Auto) (16.0-40.0) % [place] % (Auto) (0.0-15.0) % Eos % (Auto) (0.0-7.0) % Baso % (Auto) (0.0-1.5) % Neut # (Auto) (1.4-5.7) K/uL Lymph # (Auto) (0.6-2.4) K/uL [place] # (Auto) (0.0-0.8) K/uL Eos # (Auto) (0.0-0.7) K/uL Baso # (Auto) (0.0-0.1) K/uL Nucleated RBC % /100WBC Nucleated RBCs # K/uL Lactate (0.20-2.00) mmol/L Sodium (136-148) mmol/L Potassium (3.5-5.1) mmol/L Chloride (98-107) mmol/L Carbon Dioxide (21.0-32.0) mmol/L BUN (7.0-18.0) mg/dL Creatinine (0.8-1.3) mg/dL Est Cr Clr Drug Dosing Estimated GFR (MDRD) ml/min Glucose (74-106) mg/dL POC Glucose 113 H 97 88 (60-110) mg/dL Calcium (8.5-10.1) mg/dL Magnesium (1.8-2.4) mg/dL Total Bilirubin (0.2-1.0) mg/dL AST (15-37) IU/L ALT (14-63) IU/L Alkaline Phosphatase (46-116) U/L Total Protein (6.4-8.2) g/dL Albumin (3.4-5.0) g/dL Globulin (2.6-4.0) g/dL Albumin/Globulin Ratio (0.9-1.6) 02/03/19 02/03/19 02/03/19 Range/Units 15:01 15:38 15:38 WBC (4.0-11.0) K/uL RBC (4.50-5.90) M/uL Hgb (13.0-17.0) g/dL Hct (38.0-50.0) % MCV (80.0-98.0) fL MCH (27.0-32.0) pg MCHC (31.0-37.0) g/dL RDW Std Deviation (28.0-62.0) fl RDW Coeff of Erika (11.0-15.0) % Plt Count (150-400) K/uL MPV (7.40-12.00) fL Neut % (Auto) (48.0-80.0) % Lymph % (Auto) (16.0-40.0) % [place] % (Auto) (0.0-15.0) % Eos % (Auto) (0.0-7.0) % Baso % (Auto) (0.0-1.5) % Neut # (Auto) (1.4-5.7) K/uL Lymph # (Auto) (0.6-2.4) K/uL [place] # (Auto) (0.0-0.8) K/uL Eos # (Auto) (0.0-0.7) K/uL Baso # (Auto) (0.0-0.1) K/uL Nucleated RBC % /100WBC Nucleated RBCs # K/uL Lactate 0.8 (0.20-2.00) mmol/L Sodium 145 (136-148) mmol/L Potassium 3.2 L (3.5-5.1) mmol/L Chloride 113 H (98-107) mmol/L Carbon Dioxide 18.6 L (21.0-32.0) mmol/L BUN 29 H (7.0-18.0) mg/dL Creatinine 1.0 (0.8-1.3) mg/dL Est Cr Clr Drug Dosing TNP Estimated GFR (MDRD) > 60.0 ml/min Glucose 101 (74-106) mg/dL POC Glucose 92 (60-110) mg/dL Calcium 9.2 (8.5-10.1) mg/dL Magnesium (1.8-2.4) mg/dL Total Bilirubin (0.2-1.0) mg/dL AST (15-37) IU/L ALT (14-63) IU/L Alkaline Phosphatase (46-116) U/L Total Protein (6.4-8.2) g/dL Albumin (3.4-5.0) g/dL Globulin (2.6-4.0) g/dL Albumin/Globulin Ratio (0.9-1.6) 02/03/19 02/03/19 02/03/19 Range/Units 17:15 17:57 18:57 WBC (4.0-11.0) K/uL RBC (4.50-5.90) M/uL Hgb (13.0-17.0) g/dL Hct (38.0-50.0) % MCV (80.0-98.0) fL MCH (27.0-32.0) pg MCHC (31.0-37.0) g/dL RDW Std Deviation (28.0-62.0) fl RDW Coeff of Erika (11.0-15.0) % Plt Count (150-400) K/uL MPV (7.40-12.00) fL Neut % (Auto) (48.0-80.0) % Lymph % (Auto) (16.0-40.0) % [place] % (Auto) (0.0-15.0) % Eos % (Auto) (0.0-7.0) % Baso % (Auto) (0.0-1.5) % Neut # (Auto) (1.4-5.7) K/uL Lymph # (Auto) (0.6-2.4) K/uL [place] # (Auto) (0.0-0.8) K/uL Eos # (Auto) (0.0-0.7) K/uL Baso # (Auto) (0.0-0.1) K/uL Nucleated RBC % /100WBC Nucleated RBCs # K/uL Lactate (0.20-2.00) mmol/L Sodium (136-148) mmol/L Potassium (3.5-5.1) mmol/L Chloride (98-107) mmol/L Carbon Dioxide (21.0-32.0) mmol/L BUN (7.0-18.0) mg/dL Creatinine (0.8-1.3) mg/dL Est Cr Clr Drug Dosing Estimated GFR (MDRD) ml/min Glucose (74-106) mg/dL POC Glucose 60 65 38 L (60-110) mg/dL Calcium (8.5-10.1) mg/dL Magnesium (1.8-2.4) mg/dL Total Bilirubin (0.2-1.0) mg/dL AST (15-37) IU/L ALT (14-63) IU/L Alkaline Phosphatase (46-116) U/L Total Protein (6.4-8.2) g/dL Albumin (3.4-5.0) g/dL Globulin (2.6-4.0) g/dL Albumin/Globulin Ratio (0.9-1.6) 02/03/19 02/03/19 02/03/19 Range/Units 20:04 20:08 21:08 WBC (4.0-11.0) K/uL RBC (4.50-5.90) M/uL Hgb (13.0-17.0) g/dL Hct (38.0-50.0) % MCV (80.0-98.0) fL MCH (27.0-32.0) pg MCHC (31.0-37.0) g/dL RDW Std Deviation (28.0-62.0) fl RDW Coeff of Erika (11.0-15.0) % Plt Count (150-400) K/uL MPV (7.40-12.00) fL Neut % (Auto) (48.0-80.0) % Lymph % (Auto) (16.0-40.0) % [place] % (Auto) (0.0-15.0) % Eos % (Auto) (0.0-7.0) % Baso % (Auto) (0.0-1.5) % Neut # (Auto) (1.4-5.7) K/uL Lymph # (Auto) (0.6-2.4) K/uL [place] # (Auto) (0.0-0.8) K/uL Eos # (Auto) (0.0-0.7) K/uL Baso # (Auto) (0.0-0.1) K/uL Nucleated RBC % /100WBC Nucleated RBCs # K/uL Lactate (0.20-2.00) mmol/L Sodium 143 (136-148) mmol/L Potassium 3.3 L (3.5-5.1) mmol/L Chloride 112 H (98-107) mmol/L Carbon Dioxide 19.3 L (21.0-32.0) mmol/L BUN 25 H (7.0-18.0) mg/dL Creatinine 1.0 (0.8-1.3) mg/dL Est Cr Clr Drug Dosing 89.96 Estimated GFR (MDRD) > 60.0 ml/min Glucose 155 H (74-106) mg/dL POC Glucose 152 H 112 H (60-110) mg/dL Calcium 8.9 (8.5-10.1) mg/dL Magnesium (1.8-2.4) mg/dL Total Bilirubin (0.2-1.0) mg/dL AST (15-37) IU/L ALT (14-63) IU/L Alkaline Phosphatase (46-116) U/L Total Protein (6.4-8.2) g/dL Albumin (3.4-5.0) g/dL Globulin (2.6-4.0) g/dL Albumin/Globulin Ratio (0.9-1.6) 02/03/19 02/03/19 02/03/19 Range/Units 22:04 23:02 23:59 WBC (4.0-11.0) K/uL RBC (4.50-5.90) M/uL Hgb (13.0-17.0) g/dL Hct (38.0-50.0) % MCV (80.0-98.0) fL MCH (27.0-32.0) pg MCHC (31.0-37.0) g/dL RDW Std Deviation (28.0-62.0) fl RDW Coeff of Erika (11.0-15.0) % Plt Count (150-400) K/uL MPV (7.40-12.00) fL Neut % (Auto) (48.0-80.0) % Lymph % (Auto) (16.0-40.0) % [place] % (Auto) (0.0-15.0) % Eos % (Auto) (0.0-7.0) % Baso % (Auto) (0.0-1.5) % Neut # (Auto) (1.4-5.7) K/uL Lymph # (Auto) (0.6-2.4) K/uL [place] # (Auto) (0.0-0.8) K/uL Eos # (Auto) (0.0-0.7) K/uL Baso # (Auto) (0.0-0.1) K/uL Nucleated RBC % /100WBC Nucleated RBCs # K/uL Lactate (0.20-2.00) mmol/L Sodium (136-148) mmol/L Potassium (3.5-5.1) mmol/L Chloride (98-107) mmol/L Carbon Dioxide (21.0-32.0) mmol/L BUN (7.0-18.0) mg/dL Creatinine (0.8-1.3) mg/dL Est Cr Clr Drug Dosing Estimated GFR (MDRD) ml/min Glucose (74-106) mg/dL POC Glucose 81 58 L 176 H (60-110) mg/dL Calcium (8.5-10.1) mg/dL Magnesium (1.8-2.4) mg/dL Total Bilirubin (0.2-1.0) mg/dL AST (15-37) IU/L ALT (14-63) IU/L Alkaline Phosphatase (46-116) U/L Total Protein (6.4-8.2) g/dL Albumin (3.4-5.0) g/dL Globulin (2.6-4.0) g/dL Albumin/Globulin Ratio (0.9-1.6) 02/04/19 02/04/19 02/04/19 Range/Units 00:20 01:03 02:05 WBC (4.0-11.0) K/uL RBC (4.50-5.90) M/uL Hgb (13.0-17.0) g/dL Hct (38.0-50.0) % MCV (80.0-98.0) fL MCH (27.0-32.0) pg MCHC (31.0-37.0) g/dL RDW Std Deviation (28.0-62.0) fl RDW Coeff of Erika (11.0-15.0) % Plt Count (150-400) K/uL MPV (7.40-12.00) fL Neut % (Auto) (48.0-80.0) % Lymph % (Auto) (16.0-40.0) % [place] % (Auto) (0.0-15.0) % Eos % (Auto) (0.0-7.0) % Baso % (Auto) (0.0-1.5) % Neut # (Auto) (1.4-5.7) K/uL Lymph # (Auto) (0.6-2.4) K/uL [place] # (Auto) (0.0-0.8) K/uL Eos # (Auto) (0.0-0.7) K/uL Baso # (Auto) (0.0-0.1) K/uL Nucleated RBC % /100WBC Nucleated RBCs # K/uL Lactate (0.20-2.00) mmol/L Sodium 142 (136-148) mmol/L Potassium 3.8 (3.5-5.1) mmol/L Chloride 112 H (98-107) mmol/L Carbon Dioxide 19.7 L (21.0-32.0) mmol/L BUN 19 H (7.0-18.0) mg/dL Creatinine 0.8 (0.8-1.3) mg/dL Est Cr Clr Drug Dosing 112.45 Estimated GFR (MDRD) > 60.0 ml/min Glucose 185 H (74-106) mg/dL POC Glucose 162 H 162 H (60-110) mg/dL Calcium 8.5 (8.5-10.1) mg/dL Magnesium (1.8-2.4) mg/dL Total Bilirubin (0.2-1.0) mg/dL AST (15-37) IU/L ALT (14-63) IU/L Alkaline Phosphatase (46-116) U/L Total Protein (6.4-8.2) g/dL Albumin (3.4-5.0) g/dL Globulin (2.6-4.0) g/dL Albumin/Globulin Ratio (0.9-1.6) 02/04/19 02/04/19 02/04/19 Range/Units 03:07 04:05 05:02 WBC (4.0-11.0) K/uL RBC (4.50-5.90) M/uL Hgb (13.0-17.0) g/dL Hct (38.0-50.0) % MCV (80.0-98.0) fL MCH (27.0-32.0) pg MCHC (31.0-37.0) g/dL RDW Std Deviation (28.0-62.0) fl RDW Coeff of Erika (11.0-15.0) % Plt Count (150-400) K/uL MPV (7.40-12.00) fL Neut % (Auto) (48.0-80.0) % Lymph % (Auto) (16.0-40.0) % [place] % (Auto) (0.0-15.0) % Eos % (Auto) (0.0-7.0) % Baso % (Auto) (0.0-1.5) % Neut # (Auto) (1.4-5.7) K/uL Lymph # (Auto) (0.6-2.4) K/uL [place] # (Auto) (0.0-0.8) K/uL Eos # (Auto) (0.0-0.7) K/uL Baso # (Auto) (0.0-0.1) K/uL Nucleated RBC % /100WBC Nucleated RBCs # K/uL Lactate (0.20-2.00) mmol/L Sodium (136-148) mmol/L Potassium (3.5-5.1) mmol/L Chloride (98-107) mmol/L Carbon Dioxide (21.0-32.0) mmol/L BUN (7.0-18.0) mg/dL Creatinine (0.8-1.3) mg/dL Est Cr Clr Drug Dosing Estimated GFR (MDRD) ml/min Glucose (74-106) mg/dL POC Glucose 139 H 135 H 116 H (60-110) mg/dL Calcium (8.5-10.1) mg/dL Magnesium (1.8-2.4) mg/dL Total Bilirubin (0.2-1.0) mg/dL AST (15-37) IU/L ALT (14-63) IU/L Alkaline Phosphatase (46-116) U/L Total Protein (6.4-8.2) g/dL Albumin (3.4-5.0) g/dL Globulin (2.6-4.0) g/dL Albumin/Globulin Ratio (0.9-1.6) 02/04/19 02/04/19 02/04/19 Range/Units 05:23 05:23 05:59 WBC 10.36 (4.0-11.0) K/uL RBC 3.42 L (4.50-5.90) M/uL Hgb 9.1 L (13.0-17.0) g/dL Hct 27.8 L (38.0-50.0) % MCV 81.3 (80.0-98.0) fL MCH 26.6 L (27.0-32.0) pg MCHC 32.7 (31.0-37.0) g/dL RDW Std Deviation 40.5 (28.0-62.0) fl RDW Coeff of Erika 14 (11.0-15.0) % Plt Count 208 (150-400) K/uL MPV 9.70 (7.40-12.00) fL Neut % (Auto) 84.7 H (48.0-80.0) % Lymph % (Auto) 9.6 L (16.0-40.0) % [place] % (Auto) 5.6 (0.0-15.0) % Eos % (Auto) 0.0 (0.0-7.0) % Baso % (Auto) 0.1 (0.0-1.5) % Neut # (Auto) 8.8 H (1.4-5.7) K/uL Lymph # (Auto) 1.0 (0.6-2.4) K/uL [place] # (Auto) 0.6 (0.0-0.8) K/uL Eos # (Auto) 0.0 (0.0-0.7) K/uL Baso # (Auto) 0.0 (0.0-0.1) K/uL Nucleated RBC % 0.0 /100WBC Nucleated RBCs # 0 K/uL Lactate (0.20-2.00) mmol/L Sodium 141 (136-148) mmol/L Potassium 3.3 L (3.5-5.1) mmol/L Chloride 110 H (98-107) mmol/L Carbon Dioxide 20.1 L (21.0-32.0) mmol/L BUN 13 (7.0-18.0) mg/dL Creatinine 0.8 (0.8-1.3) mg/dL Est Cr Clr Drug Dosing 112.45 Estimated GFR (MDRD) > 60.0 ml/min Glucose 121 H (74-106) mg/dL POC Glucose 117 H (60-110) mg/dL Calcium 8.7 (8.5-10.1) mg/dL Magnesium (1.8-2.4) mg/dL Total Bilirubin 0.1 L (0.2-1.0) mg/dL AST 9 L (15-37) IU/L ALT 13 L (14-63) IU/L Alkaline Phosphatase 97 (46-116) U/L Total Protein 6.8 (6.4-8.2) g/dL Albumin 2.0 L (3.4-5.0) g/dL Globulin 4.8 H (2.6-4.0) g/dL Albumin/Globulin Ratio 0.4 L (0.9-1.6) 02/04/19 02/04/19 02/04/19 Range/Units 06:54 07:52 09:08 WBC (4.0-11.0) K/uL RBC (4.50-5.90) M/uL Hgb (13.0-17.0) g/dL Hct (38.0-50.0) % MCV (80.0-98.0) fL MCH (27.0-32.0) pg MCHC (31.0-37.0) g/dL RDW Std Deviation (28.0-62.0) fl RDW Coeff of Erika (11.0-15.0) % Plt Count (150-400) K/uL MPV (7.40-12.00) fL Neut % (Auto) (48.0-80.0) % Lymph % (Auto) (16.0-40.0) % [place] % (Auto) (0.0-15.0) % Eos % (Auto) (0.0-7.0) % Baso % (Auto) (0.0-1.5) % Neut # (Auto) (1.4-5.7) K/uL Lymph # (Auto) (0.6-2.4) K/uL [place] # (Auto) (0.0-0.8) K/uL Eos # (Auto) (0.0-0.7) K/uL Baso # (Auto) (0.0-0.1) K/uL Nucleated RBC % /100WBC Nucleated RBCs # K/uL Lactate (0.20-2.00) mmol/L Sodium (136-148) mmol/L Potassium (3.5-5.1) mmol/L Chloride (98-107) mmol/L Carbon Dioxide (21.0-32.0) mmol/L BUN (7.0-18.0) mg/dL Creatinine (0.8-1.3) mg/dL Est Cr Clr Drug Dosing Estimated GFR (MDRD) ml/min Glucose (74-106) mg/dL POC Glucose 116 H 116 H 100 (60-110) mg/dL Calcium (8.5-10.1) mg/dL Magnesium (1.8-2.4) mg/dL Total Bilirubin (0.2-1.0) mg/dL AST (15-37) IU/L ALT (14-63) IU/L Alkaline Phosphatase (46-116) U/L Total Protein (6.4-8.2) g/dL Albumin (3.4-5.0) g/dL Globulin (2.6-4.0) g/dL Albumin/Globulin Ratio (0.9-1.6) 02/04/19 Range/Units 10:05 WBC (4.0-11.0) K/uL RBC (4.50-5.90) M/uL Hgb (13.0-17.0) g/dL Hct (38.0-50.0) % MCV (80.0-98.0) fL MCH (27.0-32.0) pg MCHC (31.0-37.0) g/dL RDW Std Deviation (28.0-62.0) fl RDW Coeff of Erika (11.0-15.0) % Plt Count (150-400) K/uL MPV (7.40-12.00) fL Neut % (Auto) (48.0-80.0) % Lymph % (Auto) (16.0-40.0) % [place] % (Auto) (0.0-15.0) % Eos % (Auto) (0.0-7.0) % Baso % (Auto) (0.0-1.5) % Neut # (Auto) (1.4-5.7) K/uL Lymph # (Auto) (0.6-2.4) K/uL [place] # (Auto) (0.0-0.8) K/uL Eos # (Auto) (0.0-0.7) K/uL Baso # (Auto) (0.0-0.1) K/uL Nucleated RBC % /100WBC Nucleated RBCs # K/uL Lactate (0.20-2.00) mmol/L Sodium (136-148) mmol/L Potassium (3.5-5.1) mmol/L Chloride (98-107) mmol/L Carbon Dioxide (21.0-32.0) mmol/L BUN (7.0-18.0) mg/dL Creatinine (0.8-1.3) mg/dL Est Cr Clr Drug Dosing Estimated GFR (MDRD) ml/min Glucose (74-106) mg/dL POC Glucose 90 (60-110) mg/dL Calcium (8.5-10.1) mg/dL Magnesium (1.8-2.4) mg/dL Total Bilirubin (0.2-1.0) mg/dL AST (15-37) IU/L ALT (14-63) IU/L Alkaline Phosphatase (46-116) U/L Total Protein (6.4-8.2) g/dL Albumin (3.4-5.0) g/dL Globulin (2.6-4.0) g/dL Albumin/Globulin Ratio (0.9-1.6) [facility] Results Last 24 Hours: Microbiology 02/03/19 07:20 Aerobic Blood Culture - Preliminary Blood - Venous - Lab Draw NO GROWTH AFTER 1 DAY Anaerobic Blood Culture - Preliminary NO GROWTH AFTER 1 DAY 02/03/19 06:55 Aerobic Blood Culture - Preliminary Blood - Venous NO GROWTH AFTER 1 DAY Anaerobic Blood Culture - Preliminary NO GROWTH AFTER 1 DAY Med Orders - Current: Current Medications Ceftriaxone Sodium 1 gm/ (Sodium Chloride) 50 mls @ 100 mls/hr IV Q24H [facility] Last Admin: 02/04/19 08:41 Dose: 100 mls/hr Sodium Chloride (Normal Saline) 1,000 mls @ 125 mls/hr IV Q8H [facility] Last Admin: 02/04/19 09:14 Dose: 125 mls/hr Insulin Human Regular 100 unit (/ Sodium Chloride) 100 mls @ 6 mls/hr IV TITRATE [facility]; Protocol Insulin Glargine (Lantus Solostar) 20 units SUBCUT DAILY [facility] Last Admin: 02/03/19 18:08 Dose: 20 units Insulin Human Regular (Novolin R) 0 unit SUBCUT QIDACANDBED [facility]; Protocol Last Admin: 02/04/19 07:36 Dose: Not Given Lorazepam (Ativan) 1 mg IVPUSH Q4H PRN PRN Reason: Withdrawal Symptoms Last Admin: 02/04/19 09:54 Dose: 1 mg Metoclopramide HCl (Reglan) 10 mg IVPUSH Q8H [facility] Potassium Chloride (Klor-Con M20) 40 meq PO ONETIME ONE Stop: 02/04/19 10:54 Discontinued Medications Dextrose/Water (Dextrose 50% In Water) 25 ml IVPUSH ONETIME ONE Stop: 02/03/19 19:08 Last Admin: 02/03/19 19:30 Dose: 50 ml Dextrose/Water (Dextrose 50% In Water) 50 ml IVPUSH ONETIME ONE Stop: 02/03/19 23:13 Last Admin: 02/03/19 23:23 Dose: 50 ml Diphenhydramine HCl (Benadryl) 50 mg IVPUSH ONETIME ONE Stop: 02/03/19 03:58 Last Admin: 02/03/19 04:06 Dose: 50 mg Diphenhydramine HCl (Benadryl) Confirm Administered Dose 50 mg .ROUTE .STK-MED ONE Stop: 02/03/19 04:00 Last Admin: 02/03/19 04:04 Dose: Not Given Diphenhydramine HCl (Benadryl) 25 mg IVPUSH ONETIME ONE Stop: 02/03/19 04:04 Last Admin: 02/03/19 04:11 Dose: Not Given Hydromorphone HCl (Dilaudid) 1 mg IM ONETIME ONE Stop: 02/03/19 05:25 Last Admin: 02/03/19 05:36 Dose: Not Given Hydromorphone HCl (Dilaudid) 1 mg IVPUSH ONETIME ONE Stop: 02/03/19 05:39 Last Admin: 02/03/19 05:38 Dose: 1 mg Hydromorphone HCl (Dilaudid) 0.5 mg IVPUSH Q4H [facility] Last Admin: 02/03/19 11:53 Dose: 0.5 mg Hydromorphone HCl (Dilaudid) 0.5 mg IVPUSH Q4H [facility] Last Admin: 02/04/19 08:00 Dose: Not Given Sodium Chloride (Normal Saline) 1,000 mls @ 999 mls/hr IV .Bolus ONE Stop: 02/03/19 04:54 Last Admin: 02/03/19 04:02 Dose: 999 mls/hr Insulin Human Regular 100 unit (/ Sodium Chloride) 100 mls @ 6 mls/hr IV TITRATE [facility]; Protocol Last Titration: 02/04/19 10:00 Dose: 0 unit/hr, 0 mls/hr Sodium Chloride (Normal Saline) 500 mls @ 999 mls/hr IV .BOLUS ONE Stop: 02/03/19 07:08 Last Admin: 02/03/19 06:40 Dose: 999 mls/hr Sodium Chloride (Normal Saline) 1,000 mls @ 125 mls/hr IV ASDIRECTED AUG[facility]INE Last Admin: 02/03/19 10:47 Dose: 125 mls/hr Sodium Chloride (Normal Saline) 1,000 mls @ 999 mls/hr IV STAT ONE Stop: 02/03/19 09:58 Last Admin: 02/03/19 09:09 Dose: 999 mls/hr Dextrose/Sodium Chloride (Dextrose 5%-1/2 Ns) 1,000 mls @ 125 mls/hr IV ASDIRECTED AUG[facility]INE Last Infusion: 02/03/19 17:12 Dose: Infused Potassium Chloride 20 meq/ (Premix) 50 mls @ 25 mls/hr IV ONETIME ONE Stop: 02/03/19 18:23 Last Admin: 02/03/19 18:06 Dose: 25 mls/hr Dextrose/Sodium Chloride (Dextrose 5%-1/2 Ns) 1,000 mls @ 250 mls/hr IV ASDIRECTED AUG[facility]INE Last Admin: 02/04/19 06:23 Dose: 250 mls/hr Potassium Chloride 40 meq/ (Premix) 100 mls @ 25 mls/hr IV ONETIME ONE Stop: 02/04/19 01:37 Last Admin: 02/03/19 21:57 Dose: 25 mls/hr Insulin Human Regular (Novolin R) 10 unit IVPUSH ONETIME ONE; Protocol Stop: 02/03/19 04:31 Last Admin: 02/03/19 04:37 Dose: 10 unit Insulin Human Regular (Novolin R) 0 unit [facility]USH [facility]; Protocol Lidocaine HCl (Lidocaine 5%) 2 gm TOP ONETIME ONE Stop: 02/03/19 07:21 Last Admin: 02/03/19 08:33 Dose: Not Given Lidocaine HCl (Lidocaine 5%) 2 gm TOP ONETIME ONE Stop: 02/03/19 08:16 Last Admin: 02/03/19 09:01 Dose: 2 gm Lorazepam (Ativan) 1 mg IVPUSH ONETIME ONE Stop: 02/03/19 08:35 Last Admin: 02/03/19 09:01 Dose: 1 mg Metoclopramide HCl (Reglan) 10 mg IVPUSH ONETIME ONE Stop: 02/03/19 03:58 Last Admin: 02/03/19 04:06 Dose: 10 mg Metoclopramide HCl (Reglan) Confirm Administered Dose 10 mg .ROUTE .STK-MED ONE Stop: 02/03/19 04:00 Last Admin: 02/03/19 04:04 Dose: Not Given Metoclopramide HCl (Reglan) 10 mg IVPUSH ONETIME ONE Stop: 02/03/19 19:23 Last Admin: 02/03/19 19:58 Dose: 10 mg Metoclopramide HCl (Reglan) 10 mg IVPUSH ONETIME ONE Stop: 02/04/19 08:38 Last Admin: 02/04/19 09:04 Dose: 10 mg Ondansetron HCl (Zofran) 4 mg IVPUSH ONETIME ONE Stop: 02/03/19 04:30 Last Admin: 02/03/19 04:37 Dose: 4 mg Ondansetron HCl (Zofran) 4 mg IVPUSH Q4H PRN PRN Reason: Nausea/Vomiting Stop: 02/04/19 06:00 Last Admin: 02/04/19 05:22 Dose: 4 mg Ondansetron HCl (Zofran) 4 mg IVPUSH ONETIME ONE Stop: 02/03/19 19:06 Last Admin: 02/03/19 19:10 Dose: 4 mg Potassium Chloride (Potassium Chloride Solution) 40 meq PO Q4HR [facility] Stop: 02/04/19 00:01 Last Admin: 02/03/19 20:39 Dose: Not Given - Exam General: Alert, Oriented HEENT: EOMI, Mucous Membr. Moist/[place] Neck: Supple Lungs: Clear to Auscultation, Normal Respiratory Effort Cardiovascular: Regular Rate, Regular Rhythm GI/Abdominal Exam: Soft, Other (diffuse abdominal tenderness; no rebound tenderness; hyperactive BS...) Back Exam: Normal Inspection Skin: Warm, Dry Psy/Mental Status: Alert Sepsis Event Note - Evaluation Sepsis Screening Result: Sepsis Risk - Focused Exam Vital Signs: Vital Signs Temp Resp BP Pulse Ox 02/04/19 10:00 16 123/84 99 02/04/19 09:00 16 127/89 98 02/04/19 07:56 97.6 F 15 137/97 H 98 02/04/19 07:00 15 129/94 H 99 02/04/19 06:00 14 127/92 H 98 02/04/19 05:00 15 108/65 98 02/04/19 04:00 97.9 F 15 113/76 100 02/04/19 03:00 14 130/92 H 100 02/04/19 02:00 16 132/96 H 100 02/04/19 01:00 16 127/84 99 02/04/19 00:00 98.2 F 16 110/73 99 02/03/19 23:00 16 108/66 98 Date Exam was Performed: 02/04/19 Time Exam was Performed: 11:30 - Problem List Review Problem List Initiated/Reviewed/Updated: Yes - My Orders Last 24 Hours: My Active Orders 02/03/19 11:57 Code Status [Resuscitation Status] Routine 02/03/19 11:58 Antiembolic Devices [RC] PER UNIT ROUTINE Up With Assistance [RC] ASDIRECTED SCD [Sequential Compression Device] [OM.PC] Routine 02/03/19 14:59 Urinary Catheter Assessment [RC] ASDIRECTED 02/03/19 15:00 Insert Clements Catheter [Insert Urinary Catheter] [OM.PC] Q24H 02/04/19 10:53 Potassium Chloride [Klor-Con M20] 40 meq PO ONETIME ONE 02/04/19 Breakfast [employer] Diet [DIET] - Plan Plan:: Assessment 1. DKA secondary to nausea/vomiting in the setting of medical noncompliance; resolved 2. History of chronic opioid abuse 3. Urinary tract infection with probable recent passage of calculus 4. Medical noncompliance Plan Admit inpatient. Full code. Activity: Up with assistance. Diet: Diabetic diet 1. DKA: Continue insulin drip on glucose management scale until pt. tolerating food; Start NS IVF; d/c D5; Reglan and zofran given secondary to hx. of gastroparesis . 2. Opioid abuse: Restarted [id number]; discontinued Dilaudid PRN; Ativan 1 mg PRN continued; Continue to monitor patient. 3. UTI: UA returned; awaiting cultures; continue CTX 1 gram daily for now ; adjust w. cultures. COncner for recent passage of calculus; however CT/stone protocol suggest no stone; possible remaining debris. Continue Clements until pt. is tolerating meals; concnerns for neurogenic bladder as part of history 4. Medical non-compliance: pt. admits to 40 units of Lantus daily and NovoLog TID w. meals; endorses missing doses; will continue to educate patient once DKA improves and mentation is at baseline. 4. pt. understood plan.
[2019-02-04] MEDS ORDERED: BUPRENORPHINE HCL PO SCH ×2 (11:15→19:00)
[2019-02-04] MEDS ORDERED: NALOXONE HCL PO SCH ×2 (11:15→19:00)
[2019-02-04] MEDS: Metoclopramide 10 MG/2 ML SDV IVPUSH SCH ×2 (14:31→21:38)
[2019-02-04] MEDS ORDERED: Ondansetron 8 MG Tab.DIS PO PRN (18:43)
--- NOTE | 2019-02-04 19:05 | PN ---
FERCHO Physician - Brief Progress [id number]/26/2019 19:02[facility] Eddie Keller, FRANK - MWRenato (TAYLOR) - LIZETN GEGE FITCHDate of Service 02/04/2019 19:02HPI/Events o f Note eICU progress note:23-year-old male having issues with compliance and personality disorder in regards to maintaining p.o. intake.Patient was hypokalemic this morning and potassium was replaced.On video screen monitor exam:23-year-old male sleeping comfortably in bedVital signs: Heart rate 91 res piratory 17 SPO2 98% blood pressure 149/92eICU assessment/plan:DKA resolvingPatient is on and off ins ulin drip due to refusing to eatPatient does have gastroparesis would induce Reglan and regulate the patient's diet, ask for dietary to consult with the patient and discuss small meals at a frequent int erval.Would not allow the patient to lay in bed all day instead in the morning would start physical t herapy/Occupational Therapy and have the patient up to chair more than laying in the bedContinue to r eplete electrolyte disturbancesPlease call with any changes/recommendations that are needed thank you for involving eICU in the care management of your patientInterventions [id number] disturbance - evaluation and managementMinor-Communication with other healthcare providers and/or family, Routine modifications to care plan (e.g. PRN medications for pain, fever)
[2019-02-04] MEDS: Insulin Glargine,Human Rec. Analog 100 Units/ML 3 ML Pen SUBCUT SCH (19:39)
[2019-02-04] MEDS: BUPRENORPHINE PO SCH (20:15)
[2019-02-04] MEDS: [UNRECOGNIZED DRUG - OTHER] PO SCH (20:15)
[2019-02-04] MEDS ORDERED: Ondansetron 4 MG/2 ML SDV IVPUSH PRN (21:10)
--- NOTE | 2019-02-04 21:12 | PN ---
THC Physician - Brief Progress [id number]/26/2019 21:07[facility] Eddie puckett, [place] - MWN (TAYLOR) - MWN GEGE FITCH.Date of Service 02/04/2019 21:07HPI/Events o f Note Overnight events. Called for vomiting. Gege is a 23 yr old man admitted for DKA and sepsis, l ikely UTI. He has been nauseated since admission and was on IV Zofran, which has been changed to po. However, the patient is vomiting and unable to take anything po.A/P:Intractable N/V, in setting of DK A and sepsis.Resume Zofran IV prn.Continue Reglan q8h around the clock.Interventions Intermediate-Oth er: intractable N/V
[2019-02-04] MEDS ORDERED: Sodium Chloride 0.45% with KCl 1,000 ML IV SCH (21:30)
[2019-02-05 05:51] LABS: BLOOD UREA NITROGEN,BUN 6 mg/dL (7.0-18.0); CARBON DIOXIDE,CO2 24.5 mmol/L (21.0-32.0); CHLORIDE,CL 106 mmol/L (98-107); GLUCOSE RANDOM 96 mg/dL (74-106); SODIUM,NA 141 mmol/L (136-148)
[2019-02-05] MEDS: Metoclopramide 10 MG/2 ML SDV IVPUSH SCH ×3 (06:07→21:03)
[2019-02-05] MEDS ORDERED: Potassium Chloride Riders 40 MEQ in Premix Bag 1 BAG IV ONE (06:30)
--- NOTE | 2019-02-05 06:36 | PN ---
THC Physician - Brief Progress [id number]/27/2019 06:32[facility] Eddie Keller, FRANK - BETHANY (TAYLOR) - GEGE BHATTDate of Service 02/05/2019 06:32HPI/Events o f Note Overnight events. Pateint with DKA, discussed plan with bedside RN overnight and Insulin dirp adjusted due to hypoglycemia. This am KCL replaced and ordered Mag level. Patient still nauseated, ma y need to increase Reglan to qid.Interventions Intermediate-Electrolyte abnormality - evaluation and management, Hyperglycemia - evaluation and treatmentElectronically Signed by: CHELY ESTRELLA) on 1 04/08/2018 06:35
[2019-02-05] MEDS: Insulin Regular, Human 100 Units/ML 10 ML Vial SUBCUT SCH ×2 (07:43→13:20)
[2019-02-05] MEDS ORDERED: Magnesium Sulfate/Water 2 GM in Premix Bag 1 BAG IV ONE ×2 (08:08→10:30)
[2019-02-05] MEDS: BUPRENORPHINE PO SCH ×2 (08:09→19:44)
[2019-02-05] MEDS: [UNRECOGNIZED DRUG - OTHER] PO SCH ×2 (08:09→19:44)
[2019-02-05] MEDS: cefTRIAXone 1 GM in Sodium Chloride 0.9% 50 ML IV SCH (08:45)
[2019-02-05] MEDS: Insulin Glargine,Human Rec. Analog 100 Units/ML 3 ML Pen SUBCUT SCH (09:26)
--- NOTE | 2019-02-05 09:50 | PCM.PN ---
- General Info Date of Service: 02/05/19 Subjective Update: Bedside: endorsing similar symptoms from previosu 2-days. Still compaling of abdomainl pain and nausea; has tried to increase fluid consumption; e.g : chicken soup; but continues to vomit. Denies any increase in appetite. - Review of Systems General: Denies: Fever, Weakness, Chills, Appetite HEENT: Reports: No Symptoms Pulmonary: Reports: No Symptoms Cardiovascular: Reports: No Symptoms Gastrointestinal: Reports: Abdominal Pain, Decreased Appetite, Nausea, Vomiting Genitourinary: Reports: No Symptoms Musculoskeletal: Reports: No Symptoms Neurological: Denies: Confusion, Dizziness, Headache - Patient Data Vitals - Most Recent: Last Vital Signs Temp 98.1 F 02/05/19 07:00 Pulse 130 H 02/03/19 05:46 Resp 13 02/05/19 08:00 BP 137/87 02/05/19 08:00 Pulse Ox 98 02/05/19 08:00 Weight - Most Recent: 116 lb 8 oz I&O - Last 24 Hours: Intake & Output 02/04/19 02/05/19 02/05/19 22:59 06:59 14:59 Intake Total 2126 1010 Output Total 1550 Balance 2126 -540 Lab Results Last 24 Hours: Laboratory Results - last 24 hr 02/04/19 02/04/19 02/04/19 Range/Units 10:05 11:13 12:30 WBC (4.0-11.0) K/uL RBC (4.50-5.90) M/uL Hgb (13.0-17.0) g/dL Hct (38.0-50.0) % MCV (80.0-98.0) fL MCH (27.0-32.0) pg MCHC (31.0-37.0) g/dL RDW Std Deviation (28.0-62.0) fl RDW Coeff of Erika (11.0-15.0) % Plt Count (150-400) K/uL MPV (7.40-12.00) fL Neut % (Auto) (48.0-80.0) % Lymph % (Auto) (16.0-40.0) % [place] % (Auto) (0.0-15.0) % Eos % (Auto) (0.0-7.0) % Baso % (Auto) (0.0-1.5) % Neut # (Auto) (1.4-5.7) K/uL Lymph # (Auto) (0.6-2.4) K/uL [place] # (Auto) (0.0-0.8) K/uL Eos # (Auto) (0.0-0.7) K/uL Baso # (Auto) (0.0-0.1) K/uL Nucleated RBC % /100WBC Nucleated RBCs # K/uL Sodium (136-148) mmol/L Potassium (3.5-5.1) mmol/L Chloride (98-107) mmol/L Carbon Dioxide (21.0-32.0) mmol/L BUN (7.0-18.0) mg/dL Creatinine (0.8-1.3) mg/dL Est Cr Clr Drug Dosing mL/min Estimated GFR (MDRD) ml/min Glucose (74-106) mg/dL POC Glucose 90 102 151 H (60-110) mg/dL Calcium (8.5-10.1) mg/dL Magnesium (1.8-2.4) mg/dL Total Bilirubin (0.2-1.0) mg/dL AST (15-37) IU/L ALT (14-63) IU/L Alkaline Phosphatase (46-116) U/L Total Protein (6.4-8.2) g/dL Albumin (3.4-5.0) g/dL Globulin (2.6-4.0) g/dL Albumin/Globulin Ratio (0.9-1.6) 02/04/19 02/04/19 02/04/19 Range/Units 13:21 14:07 15:43 WBC (4.0-11.0) K/uL RBC (4.50-5.90) M/uL Hgb (13.0-17.0) g/dL Hct (38.0-50.0) % MCV (80.0-98.0) fL MCH (27.0-32.0) pg MCHC (31.0-37.0) g/dL RDW Std Deviation (28.0-62.0) fl RDW Coeff of Erika (11.0-15.0) % Plt Count (150-400) K/uL MPV (7.40-12.00) fL Neut % (Auto) (48.0-80.0) % Lymph % (Auto) (16.0-40.0) % [place] % (Auto) (0.0-15.0) % Eos % (Auto) (0.0-7.0) % Baso % (Auto) (0.0-1.5) % Neut # (Auto) (1.4-5.7) K/uL Lymph # (Auto) (0.6-2.4) K/uL [place] # (Auto) (0.0-0.8) K/uL Eos # (Auto) (0.0-0.7) K/uL Baso # (Auto) (0.0-0.1) K/uL Nucleated RBC % /100WBC Nucleated RBCs # K/uL Sodium (136-148) mmol/L Potassium (3.5-5.1) mmol/L Chloride (98-107) mmol/L Carbon Dioxide (21.0-32.0) mmol/L BUN (7.0-18.0) mg/dL Creatinine (0.8-1.3) mg/dL Est Cr Clr Drug Dosing mL/min Estimated GFR (MDRD) ml/min Glucose (74-106) mg/dL POC Glucose 155 H 130 H 113 H (60-110) mg/dL Calcium (8.5-10.1) mg/dL Magnesium (1.8-2.4) mg/dL Total Bilirubin (0.2-1.0) mg/dL AST (15-37) IU/L ALT (14-63) IU/L Alkaline Phosphatase (46-116) U/L Total Protein (6.4-8.2) g/dL Albumin (3.4-5.0) g/dL Globulin (2.6-4.0) g/dL Albumin/Globulin Ratio (0.9-1.6) 02/04/19 02/04/19 02/04/19 Range/Units 16:50 18:09 20:02 WBC (4.0-11.0) K/uL RBC (4.50-5.90) M/uL Hgb (13.0-17.0) g/dL Hct (38.0-50.0) % MCV (80.0-98.0) fL MCH (27.0-32.0) pg MCHC (31.0-37.0) g/dL RDW Std Deviation (28.0-62.0) fl RDW Coeff of Erika (11.0-15.0) % Plt Count (150-400) K/uL MPV (7.40-12.00) fL Neut % (Auto) (48.0-80.0) % Lymph % (Auto) (16.0-40.0) % [place] % (Auto) (0.0-15.0) % Eos % (Auto) (0.0-7.0) % Baso % (Auto) (0.0-1.5) % Neut # (Auto) (1.4-5.7) K/uL Lymph # (Auto) (0.6-2.4) K/uL [place] # (Auto) (0.0-0.8) K/uL Eos # (Auto) (0.0-0.7) K/uL Baso # (Auto) (0.0-0.1) K/uL Nucleated RBC % /100WBC Nucleated RBCs # K/uL Sodium (136-148) mmol/L Potassium (3.5-5.1) mmol/L Chloride (98-107) mmol/L Carbon Dioxide (21.0-32.0) mmol/L BUN (7.0-18.0) mg/dL Creatinine (0.8-1.3) mg/dL Est Cr Clr Drug Dosing mL/min Estimated GFR (MDRD) ml/min Glucose (74-106) mg/dL POC Glucose 101 99 135 H (60-110) mg/dL Calcium (8.5-10.1) mg/dL Magnesium (1.8-2.4) mg/dL Total Bilirubin (0.2-1.0) mg/dL AST (15-37) IU/L ALT (14-63) IU/L Alkaline Phosphatase (46-116) U/L Total Protein (6.4-8.2) g/dL Albumin (3.4-5.0) g/dL Globulin (2.6-4.0) g/dL Albumin/Globulin Ratio (0.9-1.6) 02/04/19 02/04/19 02/04/19 Range/Units 21:04 22:07 23:07 WBC (4.0-11.0) K/uL RBC (4.50-5.90) M/uL Hgb (13.0-17.0) g/dL Hct (38.0-50.0) % MCV (80.0-98.0) fL MCH (27.0-32.0) pg MCHC (31.0-37.0) g/dL RDW Std Deviation (28.0-62.0) fl RDW Coeff of Erika (11.0-15.0) % Plt Count (150-400) K/uL MPV (7.40-12.00) fL Neut % (Auto) (48.0-80.0) % Lymph % (Auto) (16.0-40.0) % [place] % (Auto) (0.0-15.0) % Eos % (Auto) (0.0-7.0) % Baso % (Auto) (0.0-1.5) % Neut # (Auto) (1.4-5.7) K/uL Lymph # (Auto) (0.6-2.4) K/uL [place] # (Auto) (0.0-0.8) K/uL Eos # (Auto) (0.0-0.7) K/uL Baso # (Auto) (0.0-0.1) K/uL Nucleated RBC % /100WBC Nucleated RBCs # K/uL Sodium (136-148) mmol/L Potassium (3.5-5.1) mmol/L Chloride (98-107) mmol/L Carbon Dioxide (21.0-32.0) mmol/L BUN (7.0-18.0) mg/dL Creatinine (0.8-1.3) mg/dL Est Cr Clr Drug Dosing mL/min Estimated GFR (MDRD) ml/min Glucose (74-106) mg/dL POC Glucose 178 H 186 H 170 H (60-110) mg/dL Calcium (8.5-10.1) mg/dL Magnesium (1.8-2.4) mg/dL Total Bilirubin (0.2-1.0) mg/dL AST (15-37) IU/L ALT (14-63) IU/L Alkaline Phosphatase (46-116) U/L Total Protein (6.4-8.2) g/dL Albumin (3.4-5.0) g/dL Globulin (2.6-4.0) g/dL Albumin/Globulin Ratio (0.9-1.6) 02/04/19 02/05/19 02/05/19 Range/Units 23:59 01:02 02:00 WBC (4.0-11.0) K/uL RBC (4.50-5.90) M/uL Hgb (13.0-17.0) g/dL Hct (38.0-50.0) % MCV (80.0-98.0) fL MCH (27.0-32.0) pg MCHC (31.0-37.0) g/dL RDW Std Deviation (28.0-62.0) fl RDW Coeff of Erika (11.0-15.0) % Plt Count (150-400) K/uL MPV (7.40-12.00) fL Neut % (Auto) (48.0-80.0) % Lymph % (Auto) (16.0-40.0) % [place] % (Auto) (0.0-15.0) % Eos % (Auto) (0.0-7.0) % Baso % (Auto) (0.0-1.5) % Neut # (Auto) (1.4-5.7) K/uL Lymph # (Auto) (0.6-2.4) K/uL [place] # (Auto) (0.0-0.8) K/uL Eos # (Auto) (0.0-0.7) K/uL Baso # (Auto) (0.0-0.1) K/uL Nucleated RBC % /100WBC Nucleated RBCs # K/uL Sodium (136-148) mmol/L Potassium (3.5-5.1) mmol/L Chloride (98-107) mmol/L Carbon Dioxide (21.0-32.0) mmol/L BUN (7.0-18.0) mg/dL Creatinine (0.8-1.3) mg/dL Est Cr Clr Drug Dosing mL/min Estimated GFR (MDRD) ml/min Glucose (74-106) mg/dL POC Glucose 152 H 134 H 130 H (60-110) mg/dL Calcium (8.5-10.1) mg/dL Magnesium (1.8-2.4) mg/dL Total Bilirubin (0.2-1.0) mg/dL AST (15-37) IU/L ALT (14-63) IU/L Alkaline Phosphatase (46-116) U/L Total Protein (6.4-8.2) g/dL Albumin (3.4-5.0) g/dL Globulin (2.6-4.0) g/dL Albumin/Globulin Ratio (0.9-1.6) 02/05/19 02/05/19 02/05/19 Range/Units 03:00 04:04 05:02 WBC (4.0-11.0) K/uL RBC (4.50-5.90) M/uL Hgb (13.0-17.0) g/dL Hct (38.0-50.0) % MCV (80.0-98.0) fL MCH (27.0-32.0) pg MCHC (31.0-37.0) g/dL RDW Std Deviation (28.0-62.0) fl RDW Coeff of Erika (11.0-15.0) % Plt Count (150-400) K/uL MPV (7.40-12.00) fL Neut % (Auto) (48.0-80.0) % Lymph % (Auto) (16.0-40.0) % [place] % (Auto) (0.0-15.0) % Eos % (Auto) (0.0-7.0) % Baso % (Auto) (0.0-1.5) % Neut # (Auto) (1.4-5.7) K/uL Lymph # (Auto) (0.6-2.4) K/uL [place] # (Auto) (0.0-0.8) K/uL Eos # (Auto) (0.0-0.7) K/uL Baso # (Auto) (0.0-0.1) K/uL Nucleated RBC % /100WBC Nucleated RBCs # K/uL Sodium (136-148) mmol/L Potassium (3.5-5.1) mmol/L Chloride (98-107) mmol/L Carbon Dioxide (21.0-32.0) mmol/L BUN (7.0-18.0) mg/dL Creatinine (0.8-1.3) mg/dL Est Cr Clr Drug Dosing mL/min Estimated GFR (MDRD) ml/min Glucose (74-106) mg/dL POC Glucose 107 106 97 (60-110) mg/dL Calcium (8.5-10.1) mg/dL Magnesium (1.8-2.4) mg/dL Total Bilirubin (0.2-1.0) mg/dL AST (15-37) IU/L ALT (14-63) IU/L Alkaline Phosphatase (46-116) U/L Total Protein (6.4-8.2) g/dL Albumin (3.4-5.0) g/dL Globulin (2.6-4.0) g/dL Albumin/Globulin Ratio (0.9-1.6) 02/05/19 02/05/19 02/05/19 Range/Units 05:10 05:10 05:10 WBC 6.50 (4.0-11.0) K/uL RBC 3.50 L (4.50-5.90) M/uL Hgb 9.4 L (13.0-17.0) g/dL Hct 29.0 L (38.0-50.0) % MCV 82.9 (80.0-98.0) fL MCH 26.9 L (27.0-32.0) pg MCHC 32.4 (31.0-37.0) g/dL RDW Std Deviation 40.1 (28.0-62.0) fl RDW Coeff of Erika 14 (11.0-15.0) % Plt Count 206 (150-400) K/uL MPV 9.30 (7.40-12.00) fL Neut % (Auto) 79.5 (48.0-80.0) % Lymph % (Auto) 14.8 L (16.0-40.0) % [place] % (Auto) 5.5 (0.0-15.0) % Eos % (Auto) 0.0 (0.0-7.0) % Baso % (Auto) 0.2 (0.0-1.5) % Neut # (Auto) 5.2 (1.4-5.7) K/uL Lymph # (Auto) 1.0 (0.6-2.4) K/uL [place] # (Auto) 0.4 (0.0-0.8) K/uL Eos # (Auto) 0.0 (0.0-0.7) K/uL Baso # (Auto) 0.0 (0.0-0.1) K/uL Nucleated RBC % 0.0 /100WBC Nucleated RBCs # 0 K/uL Sodium 141 (136-148) mmol/L Potassium 3.0 L (3.5-5.1) mmol/L Chloride 106 (98-107) mmol/L Carbon Dioxide 24.5 (21.0-32.0) mmol/L BUN 6 L (7.0-18.0) mg/dL Creatinine 0.6 L (0.8-1.3) mg/dL Est Cr Clr Drug Dosing 145.56 mL/min Estimated GFR (MDRD) > 60.0 ml/min Glucose 96 (74-106) mg/dL POC Glucose (60-110) mg/dL Calcium 8.3 L (8.5-10.1) mg/dL Magnesium 1.5 L (1.8-2.4) mg/dL Total Bilirubin 0.2 (0.2-1.0) mg/dL AST 8 L (15-37) IU/L ALT 13 L (14-63) IU/L Alkaline Phosphatase 94 (46-116) U/L Total Protein 6.5 (6.4-8.2) g/dL Albumin 1.9 L (3.4-5.0) g/dL Globulin 4.6 H (2.6-4.0) g/dL Albumin/Globulin Ratio 0.4 L (0.9-1.6) 02/05/19 02/05/19 02/05/19 Range/Units 06:01 06:58 08:04 WBC (4.0-11.0) K/uL RBC (4.50-5.90) M/uL Hgb (13.0-17.0) g/dL Hct (38.0-50.0) % MCV (80.0-98.0) fL MCH (27.0-32.0) pg MCHC (31.0-37.0) g/dL RDW Std Deviation (28.0-62.0) fl RDW Coeff of Erika (11.0-15.0) % Plt Count (150-400) K/uL MPV (7.40-12.00) fL Neut % (Auto) (48.0-80.0) % Lymph % (Auto) (16.0-40.0) % [place] % (Auto) (0.0-15.0) % Eos % (Auto) (0.0-7.0) % Baso % (Auto) (0.0-1.5) % Neut # (Auto) (1.4-5.7) K/uL Lymph # (Auto) (0.6-2.4) K/uL [place] # (Auto) (0.0-0.8) K/uL Eos # (Auto) (0.0-0.7) K/uL Baso # (Auto) (0.0-0.1) K/uL Nucleated RBC % /100WBC Nucleated RBCs # K/uL Sodium (136-148) mmol/L Potassium (3.5-5.1) mmol/L Chloride (98-107) mmol/L Carbon Dioxide (21.0-32.0) mmol/L BUN (7.0-18.0) mg/dL Creatinine (0.8-1.3) mg/dL Est Cr Clr Drug Dosing mL/min Estimated GFR (MDRD) ml/min Glucose (74-106) mg/dL POC Glucose 108 156 H 137 H (60-110) mg/dL Calcium (8.5-10.1) mg/dL Magnesium (1.8-2.4) mg/dL Total Bilirubin (0.2-1.0) mg/dL AST (15-37) IU/L ALT (14-63) IU/L Alkaline Phosphatase (46-116) U/L Total Protein (6.4-8.2) g/dL Albumin (3.4-5.0) g/dL Globulin (2.6-4.0) g/dL Albumin/Globulin Ratio (0.9-1.6) 02/05/19 Range/Units 09:15 WBC (4.0-11.0) K/uL RBC (4.50-5.90) M/uL Hgb (13.0-17.0) g/dL Hct (38.0-50.0) % MCV (80.0-98.0) fL MCH (27.0-32.0) pg MCHC (31.0-37.0) g/dL RDW Std Deviation (28.0-62.0) fl RDW Coeff of Erika (11.0-15.0) % Plt Count (150-400) K/uL MPV (7.40-12.00) fL Neut % (Auto) (48.0-80.0) % Lymph % (Auto) (16.0-40.0) % [place] % (Auto) (0.0-15.0) % Eos % (Auto) (0.0-7.0) % Baso % (Auto) (0.0-1.5) % Neut # (Auto) (1.4-5.7) K/uL Lymph # (Auto) (0.6-2.4) K/uL [place] # (Auto) (0.0-0.8) K/uL Eos # (Auto) (0.0-0.7) K/uL Baso # (Auto) (0.0-0.1) K/uL Nucleated RBC % /100WBC Nucleated RBCs # K/uL Sodium (136-148) mmol/L Potassium (3.5-5.1) mmol/L Chloride (98-107) mmol/L Carbon Dioxide (21.0-32.0) mmol/L BUN (7.0-18.0) mg/dL Creatinine (0.8-1.3) mg/dL Est Cr Clr Drug Dosing mL/min Estimated GFR (MDRD) ml/min Glucose (74-106) mg/dL POC Glucose 100 (60-110) mg/dL Calcium (8.5-10.1) mg/dL Magnesium (1.8-2.4) mg/dL Total Bilirubin (0.2-1.0) mg/dL AST (15-37) IU/L ALT (14-63) IU/L Alkaline Phosphatase (46-116) U/L Total Protein (6.4-8.2) g/dL Albumin (3.4-5.0) g/dL Globulin (2.6-4.0) g/dL Albumin/Globulin Ratio (0.9-1.6) [facility] Results Last 24 Hours: Microbiology 02/03/19 08:40 Urine Culture - Final Urine, Catheterized Escherichia Coli 02/03/19 07:20 Aerobic Blood Culture - Preliminary Blood - Venous - Lab Draw NO GROWTH AFTER 2 DAYS Anaerobic Blood Culture - Preliminary NO GROWTH AFTER 2 DAYS 02/03/19 06:55 Aerobic Blood Culture - Preliminary Blood - Venous NO GROWTH AFTER 2 DAYS Anaerobic Blood Culture - Preliminary NO GROWTH AFTER 2 DAYS Med Orders - Current: Current Medications Ceftriaxone Sodium 1 gm/ (Sodium Chloride) 50 mls @ 100 mls/hr IV Q24H [facility] Last Admin: 02/05/19 08:45 Dose: 100 mls/hr Insulin Human Regular 100 unit (/ Sodium Chloride) 100 mls @ 6 mls/hr IV TITRATE [facility]; Protocol Last Titration: 02/05/19 09:17 Dose: 0.5 unit/hr, 0.5 mls/hr Potassium Chloride/Sodium Chloride (1/2 Ns With 20 Meq Kcl) 1,000 mls @ 75 mls/ hr IV ASDIRECTED [facility] Last Admin: 02/04/19 21:38 Dose: 75 mls/hr Potassium Chloride 40 meq/ (Premix) 100 mls @ 25 mls/hr IV ONETIME ONE Stop: 02/05/19 10:29 Last Admin: 02/05/19 07:03 Dose: 25 mls/hr Insulin Glargine (Lantus Solostar) 20 units SUBCUT DAILY [facility] Last Admin: 02/05/19 09:26 Dose: Not Given Insulin Human Regular (Novolin R) 0 unit SUBCUT QIDACANDBED [facility]; Protocol Last Admin: 02/05/19 07:43 Dose: Not Given Lorazepam (Ativan) 1 mg IVPUSH Q4H PRN PRN Reason: Withdrawal Symptoms Last Admin: 02/04/19 09:54 Dose: 1 mg Metoclopramide HCl (Reglan) 10 mg IVPUSH Q8H [facility] Last Admin: 02/05/19 06:07 Dose: 10 mg Ondansetron HCl (Zofran Odt) 8 mg PO QID PRN PRN Reason: Nausea/Vomiting Ondansetron HCl (Zofran) 4 mg IVPUSH Q6H PRN PRN Reason: Vomiting Last Admin: 02/05/19 08:18 Dose: 4 mg Patient's Own Medication 1 Each Buprenorphine 8mg/Naloxone 2mg Tab 1 each PO BIDMEALS [facility] Last Admin: 02/05/19 08:09 Dose: 1 each Discontinued Medications Dextrose/Water (Dextrose 50% In Water) 25 ml IVPUSH ONETIME ONE Stop: 02/03/19 19:08 Last Admin: 02/03/19 19:30 Dose: 50 ml Dextrose/Water (Dextrose 50% In Water) 50 ml IVPUSH ONETIME ONE Stop: 02/03/19 23:13 Last Admin: 02/03/19 23:23 Dose: 50 ml Diphenhydramine HCl (Benadryl) 50 mg IVPUSH ONETIME ONE Stop: 02/03/19 03:58 Last Admin: 02/03/19 04:06 Dose: 50 mg Diphenhydramine HCl (Benadryl) Confirm Administered Dose 50 mg .ROUTE .STK-MED ONE Stop: 02/03/19 04:00 Last Admin: 02/03/19 04:04 Dose: Not Given Diphenhydramine HCl (Benadryl) 25 mg IVPUSH ONETIME ONE Stop: 02/03/19 04:04 Last Admin: 02/03/19 04:11 Dose: Not Given Hydromorphone HCl (Dilaudid) 1 mg IM ONETIME ONE Stop: 02/03/19 05:25 Last Admin: 02/03/19 05:36 Dose: Not Given Hydromorphone HCl (Dilaudid) 1 mg IVPUSH ONETIME ONE Stop: 02/03/19 05:39 Last Admin: 02/03/19 05:38 Dose: 1 mg Hydromorphone HCl (Dilaudid) 0.5 mg IVPUSH Q4H [facility] Last Admin: 02/03/19 11:53 Dose: 0.5 mg Hydromorphone HCl (Dilaudid) 0.5 mg IVPUSH Q4H [facility] Last Admin: 02/04/19 08:00 Dose: Not Given Sodium Chloride (Normal Saline) 1,000 mls @ 999 mls/hr IV .Bolus ONE Stop: 02/03/19 04:54 Last Admin: 02/03/19 04:02 Dose: 999 mls/hr Insulin Human Regular 100 unit (/ Sodium Chloride) 100 mls @ 6 mls/hr IV TITRATE [facility]; Protocol Last Titration: 02/04/19 18:10 Dose: 0 unit/hr, 0 mls/hr Sodium Chloride (Normal Saline) 500 mls @ 999 mls/hr IV .BOLUS ONE Stop: 02/03/19 07:08 Last Admin: 02/03/19 06:40 Dose: 999 mls/hr Sodium Chloride (Normal Saline) 1,000 mls @ 125 mls/hr IV ASDIRECTED [facility] Last Admin: 02/03/19 10:47 Dose: 125 mls/hr Sodium Chloride (Normal Saline) 1,000 mls @ 999 mls/hr IV STAT ONE Stop: 02/03/19 09:58 Last Admin: 02/03/19 09:09 Dose: 999 mls/hr Dextrose/Sodium Chloride (Dextrose 5%-1/2 Ns) 1,000 mls @ 125 mls/hr IV ASDIRECTED [facility] Last Infusion: 02/03/19 17:12 Dose: Infused Potassium Chloride 20 meq/ (Premix) 50 mls @ 25 mls/hr IV ONETIME ONE Stop: 02/03/19 18:23 Last Admin: 02/03/19 18:06 Dose: 25 mls/hr Dextrose/Sodium Chloride (Dextrose 5%-1/2 Ns) 1,000 mls @ 250 mls/hr IV ASDIRECTED [facility] Last Admin: 02/04/19 06:23 Dose: 250 mls/hr Potassium Chloride 40 meq/ (Premix) 100 mls @ 25 mls/hr IV ONETIME ONE Stop: 02/04/19 01:37 Last Admin: 02/03/19 21:57 Dose: 25 mls/hr Sodium Chloride (Normal Saline) 1,000 mls @ 125 mls/hr IV Q8H AUGUSTINE Last Infusion: 02/04/19 17:16 Dose: 125 mls/hr Magnesium Sulfate 2 gm/ Premix 50 mls @ 25 mls/hr IV ONETIME ONE Stop: 02/05/19 10:07 Insulin Human Regular (Novolin R) 10 unit IVPUSH ONETIME ONE; Protocol Stop: 02/03/19 04:31 Last Admin: 02/03/19 04:37 Dose: 10 unit Insulin Human Regular (Novolin R) 0 unit IVPUSH QIDACANDBED AUGUSTINE; Protocol Lidocaine HCl (Lidocaine 5%) 2 gm TOP ONETIME ONE Stop: 02/03/19 07:21 Last Admin: 02/03/19 08:33 Dose: Not Given Lidocaine HCl (Lidocaine 5%) 2 gm TOP ONETIME ONE Stop: 02/03/19 08:16 Last Admin: 02/03/19 09:01 Dose: 2 gm Lorazepam (Ativan) 1 mg IVPUSH ONETIME ONE Stop: 02/03/19 08:35 Last Admin: 02/03/19 09:01 Dose: 1 mg Metoclopramide HCl (Reglan) 10 mg IVPUSH ONETIME ONE Stop: 02/03/19 03:58 Last Admin: 02/03/19 04:06 Dose: 10 mg Metoclopramide HCl (Reglan) Confirm Administered Dose 10 mg .ROUTE .STK-MED ONE Stop: 02/03/19 04:00 Last Admin: 02/03/19 04:04 Dose: Not Given Metoclopramide HCl (Reglan) 10 mg IVPUSH ONETIME ONE Stop: 02/03/19 19:23 Last Admin: 02/03/19 19:58 Dose: 10 mg Metoclopramide HCl (Reglan) 10 mg IVPUSH ONETIME ONE Stop: 02/04/19 08:38 Last Admin: 02/04/19 09:04 Dose: 10 mg Ondansetron HCl (Zofran) 4 mg IVPUSH ONETIME ONE Stop: 02/03/19 04:30 Last Admin: 02/03/19 04:37 Dose: 4 mg Ondansetron HCl (Zofran) 4 mg IVPUSH Q4H PRN PRN Reason: Nausea/Vomiting Stop: 02/04/19 06:00 Last Admin: 02/04/19 05:22 Dose: 4 mg Ondansetron HCl (Zofran) 4 mg IVPUSH ONETIME ONE Stop: 02/03/19 19:06 Last Admin: 02/03/19 19:10 Dose: 4 mg Buprenorphine Hcl/Naloxone Hcl [ Suboxone 8/2mg Tablet] 2 each PO DAILY AUGUSTINE Last Admin: 02/04/19 11:24 Dose: 1 each Buprenorphine Hcl/Naloxone Hcl [ Suboxone 8/2mg Tablet] #Patients Own# 2 each PO BIDMEALS [facility] Potassium Chloride (Potassium Chloride Solution) 40 meq PO Q4HR AUGUSTINE Stop: 02/04/19 00:01 Last Admin: 02/03/19 20:39 Dose: Not Given Potassium Chloride (Klor-Con M20) 40 meq PO ONETIME ONE Stop: 02/04/19 10:54 Last Admin: 02/04/19 14:35 Dose: Not Given - Exam General: Alert, Oriented, Mild Distress HEENT: EOMI, Mucous Membr. Moist/[place] Neck: Supple Lungs: Clear to Auscultation, Normal Respiratory Effort Cardiovascular: Regular Rate, Regular Rhythm GI/Abdominal Exam: Other (diffuse abdominal tenderness. no rebound tenderness. edge in-situ ) Extremities: Normal Inspection, Non-Tender, No Pedal Edema Skin: Warm, Dry Neurological: No New Focal Deficit Psy/Mental Status: Alert, Withdrawal Symptoms (improving with BID dosing ) Sepsis Event Note - Evaluation Sepsis Screening Result: Sepsis Risk - Focused Exam Vital Signs: Vital Signs Temp Resp BP Pulse Ox 02/05/19 08:00 13 137/87 98 02/05/19 07:00 98.1 F 12 140/77 98 02/05/19 06:00 12 127/83 96 02/05/19 05:00 12 139/99 H 97 02/05/19 04:00 98.6 F 12 124/88 97 02/05/19 03:00 13 126/86 97 02/05/19 02:00 13 131/86 98 02/05/19 01:00 12 132/85 97 02/05/19 00:00 100 F 14 132/84 96 02/04/19 23:00 17 111/68 97 02/04/19 22:00 16 129/78 97 Date Exam was Performed: 02/05/19 Time Exam was Performed: 12:18 - Problem List Review Problem List Initiated/Reviewed/Updated: Yes - My Orders Last 24 Hours: My Active Orders 02/04/19 18:43 Ondansetron [Zofran ODT] 8 mg PO QID PRN - Plan Plan:: Assessment 1. DKA secondary to nausea/vomiting in the setting of medical noncompliance; resolved 2. History of chronic opioid abuse 3. Urinary tract infection secondary to E. Coli with probable recent passage of calculus 4. Medical noncompliance 5. Gastroparesis 6. Neurogenic bladder 7. Normocytic anemia Plan Admit inpatient. Full code. Activity: Up with assistance. Diet: Diabetic diet 1. DKA: resolved ; however since pt. is still not tolerating food/fluids; on insulin drip with hyperglycemia protocol. Gastroparesis: on Reglan,Zofran w. minimal improvement. Will discuss other modalities of treatment with patient today. Electrolytes: K and Mg repleted in AM per eICU; we appreciate their help and recommendations. 2. Opioid abuse: Restarted ZUBSOLV at AM /PM dosing ; discontinued Dilaudid PRN; Ativan 1 mg PRN continued; Continue to monitor patient. 3. UTI: UA returned; awaiting cultures; continue CTX 1 gram daily for now ; adjust w. cultures. Concern for recent passage of calculus; however CT/stone protocol suggest no stone; possible remaining debris. Continue Edge until pt. is tolerating meals; concerns for neurogenic bladder as part of history 4. Medical non-compliance: pt. admits to 40 units of Lantus daily and NovoLog TID w. meals; endorses missing doses; will continue to educate patient once DKA improves and mentation is at baseline. 4. Edge in place secondary to neurogenic bladder; endorses to me suggestion from other provider to have a suprapubic catheter placed for which he refused, 5. Gastroparesis: continue current regimen; added Marinol for appetite; will consider erythromycin or other medicaitons however will speak with [facility] of [facility] regarding any other acute interventions/recommendations.
[2019-02-05] MEDS ORDERED: Dronabinol 2.5 MG Cap PO ONE (10:33)
[2019-02-05] MEDS ORDERED: Sodium Chloride 0.45% 1,000 ML IV SCH (12:30)
[2019-02-05] MEDS: Pantoprazole 40 MG in Sodium Chloride 0.9% 10 ML IV SCH (13:18)
--- NOTE | 2019-02-05 16:18 | PN ---
THC Physician - Brief Progress [id number]/27/2019 16:02[facility] Eddie Keller, FRANK - BETHANY (TAYLOR) - GEGE BHATTDate of Service 02/05/2019 16:02HPI/Events o f Note eICU progress note:23-year-old male having issues with compliance and personality disorder in regards to maintainingp.o. intake.Overnight the patient had issues again with vomiting that required insulin drip to be restarted. Currently insulin drip is again off.On video screen monitor exam:23-ye ar-old male sitting up in bedVital signs: Heart rate 87 respiratory rate 11 SPO2 98%eICU assessment/p irene:DKA resolvingVomiting appears to be resolvedPatient does have gastroparesis would induce Reglan a nd regulate the patient's diet, ask for dietaryto consult with the patient and discuss small meals at a frequent interval.Continue to replete electrolyte disturbancesPlease call with any changes/recomme ndations that are needed thank you for involving eICU in thecare management of your patientInterventi ons [id number] disturbance - evaluation and managementMinor-Communication with other healthcare providers and/or family, Routine modifications to care plan (e.g. PRN medications for pain, fever)Veronica ctronically Signed by: SUZANNA WANG) on 02/05/2019 16:17
[2019-02-05] MEDS: Insulin Aspart 100 Units/ML 3 ML Pen SUBCUT SCH (17:00)
[2019-02-05] MEDS ORDERED: Insulin Regular, Human 100 Units/ML 10 ML Vial SUBCUT ONE (22:08)
[2019-02-05] MEDS ORDERED: Insulin Glargine,Human Rec. Analog 100 Units/ML 3 ML Pen SUBCUT STA (22:13)
--- NOTE | 2019-02-05 22:23 | PN ---
THC Physician - Brief Progress [id number]/27/2019 22:18[facility] Eddie puckett, FRANK - BETHANY (TAYLOR) - GEGE BHATTDate of Service 02/05/2019 22:18HPI/Events o f Note BS 231mg/dlnow able to eat and drink fairly did not receive long acting lantus 20 units SQ in AM today as he was vomitingnovolog sliding scale ordered 3 times daily with meals(medium scale)plan:n ovolog 10 units sq now Lantus 20 units now SQrecheck BS in 2 hoursInterventions Major-Hyperglycemia - active titration of insulin therapy 2 2:22
[2019-02-06] MEDS: Metoclopramide 10 MG/2 ML SDV IVPUSH SCH (05:35)
[2019-02-06 07:12] LABS: BLOOD UREA NITROGEN,BUN 7 mg/dL (7.0-18.0); CARBON DIOXIDE,CO2 23.5 mmol/L (21.0-32.0); CHLORIDE,CL 103 mmol/L (98-107); SODIUM,NA 138 mmol/L (136-148)
[2019-02-06 07:20] LABS: GLUCOSE RANDOM 182 mg/dL (74-106)
[2019-02-06] MEDS: Insulin Aspart 100 Units/ML 3 ML Pen SUBCUT SCH ×2 (08:14→13:28)
[2019-02-06] MEDS: [UNRECOGNIZED DRUG - OTHER] PO SCH (08:49)
[2019-02-06] MEDS: BUPRENORPHINE PO SCH (08:49)
[2019-02-06] MEDS: cefTRIAXone 1 GM in Sodium Chloride 0.9% 50 ML IV SCH (08:49)
--- NOTE | 2019-02-06 10:16 | PN ---
THC Physician - Brief Progress [id number]/28/2019 10:10[facility] Keller, FRANK - MWN (TAYLOR) - MWN LITTLEGEGE NoelDate of Service 02/06/2019 10:10HPI/Events o f Note Patient presented with DKA and gastroparesis. He is currently off insulin drip started on a s chedule long-acting insulin last night and a sliding scale.Sugar dropped this morning but he was asym ptomatic with it and rebounded very quickly. His p.o. intake is improving and his gastroparesis is i mproving with use of medications.His potassium is at 3 this morning. Glucose 182 the morning lab. B edside glucose was 49 at 4 AM and started to come up to the low 100 range since.Patient was sleeping when I visited the room. The case have been discussed with the nurse.We will continue the same manag ement. I will give him 40 mEq of potassium to replace his potassium. We discussed the hypoglycemic event as well. May consider lowering the night long-acting insulin dose if the patient p.o. intake i s a still not consistent.Start Lovenox for DVT prophylaxis.Thank you for letting [facility] care of this patientInterventions Major-Electrolyte abnormality - evaluation and management, Hyperg lycemia - active titration of insulin therapy, Other: GastroparesisMinor-Communication with other [facility] providers and/or family
[2019-02-06] MEDS ORDERED: Potassium Chloride 20 MEQ Tab.ER PO ONE (10:25)
[2019-02-06] MEDS: Insulin Glargine,Human Rec. Analog 100 Units/ML 3 ML Pen SUBCUT SCH (11:23)
[2019-02-06 12:18] VITALS: BP 125/86
[2019-02-06] MEDS: Pantoprazole 40 MG in Sodium Chloride 0.9% 10 ML IV SCH (13:25)
[2019-02-06] MEDS ORDERED: Enoxaparin 40 MG/0.4 ML Syringe SUBCUT SCH (14:00)
--- NOTE | 2019-02-06 14:20 | PCM.DCSUM1 ---
Discharge Summary - Hospital Course Free Text/Narrative:: Discharge summary Admission date 02/03/2019 Discharge date 02-06 Admission diagnoses: DKA in the setting of nausea and vomiting in a type I diabetic Urinary tract infection with recent passage of calculus Past medical history of opioid dependence Gastroparesis Neurogenic bladder Consultations:eICU Procedures: Hospital course: pt. is a 23-year-old male with a significant past medical history of type 1 diabetes and history of opioid dependence; presenting with 1 to 2 days of persistent abdominal pain, nausea, vomiting and medical noncompliance with his diabetes medications. On arrival to ED patient was found to be dehydrated and was started on IV fluids; CT abdomen pelvis showed debris in ureters and bladder with mild right hydronephrosis; UTI was also diagnosed and patient was started on ceftriaxone. Patient was initiated on DKA protocol with eICU consulted. Throughout stay nausea and vomiting continued and patient was retaining urine and bladder. Clements catheter was placed, IV boluses of fluid given, insulin drip continued. Per lab; anion gap has closed however patient clinically was still complaining of nausea and vomiting; with concerns of worsening of his gastroparesis Reglan, Zofran and Marinol was initiated. Electrolytes repleted as needed. Home medication of ZUBSOLV was continued and Ativan was given as well with concerns about withdrawal symptoms. Throughout stay patient slowly began to improve with resolution of nausea and vomiting with some return in patient's appetite. Insulin drip was discontinued; Clements catheter was removed with subsequent urinary and bowel voiding without any issues; patient was restarted on home medication of Lantus and NovoLog. Patient endorsed wanting to go home saying he feels better and stronger. Patient was sent home with Bactrim to complete course for UTI treatment. Patient advised to follow-up with Dr. Nettles of urology and his PCP regarding blood sugar controls. Concerns about his Gastroparesis were also brought up; advised pt. to follow up with his previous GI physician, Dr Lora ; pt. had seen this provider earlier this year for an EGD. Discharge condition:Stable Disposition:Home Additional rx: zofran, reglan, Bactrim +Home medications - Discharge Data Discharge Date: 02/06/19 Discharge Disposition: Home, Self-Care 01 Condition: Stable - Referral to Home Health Primary Care Physician: PCP None - Patient Instructions Diet: Diabetic Diet Notify Provider of: Fever, Increased Pain, Nausea and/or Vomiting - Discharge Plan *PRESCRIPTION DRUG MONITORING PROGRAM REVIEWED*: No *COPY OF PRESCRIPTION DRUG MONITORING REPORT IN PATIENT HANY: No Prescriptions/Med Rec: Metoclopramide [Reglan] 5 mg PO Q8H PRN 3 Days #9 tab PRN Reason: Abdominal Pain Ondansetron [Zofran ODT] 4 mg PO Q6H PRN 2 Days #8 tab.dis PRN Reason: Nausea/Vomiting Sulfamethoxazole/Trimethoprim [Sulfamethoxazole-Tmp Ds Tablet] 1 each PO BID 5 Days #10 tablet Home Medications: Home Meds Insulin Aspart [NovoLOG] 5 units SUBCUT TIDAC 07/23/18 [History] Ferrous Sulfate [Iron] 325 mg PO BID 09/15/18 [History] Hyoscyamine [Hyomax-SL] 0.125 mg SL Q4H PRN #20 tab.sl 09/16/18 [Rx] Ondansetron [Zofran ODT] 4 mg PO Q6H PRN #20 tab.dis 09/16/18 [Rx] Buprenorphine HCl/Naloxone HCl [Zubsolv 5.7-1.4 mg Tablet Sl] 1 each SL DAILY [History] Insulin Glarg,Human.Rec.Analog [Lantus] 40 unit SUBCUT DAILY 12/18/18 [History] Diclofenac Sodium [Voltaren] 75 mg PO BID 02/02/19 [History] Methocarbamol [Robaxin] 500 mg PO TID #20 tablet 02/02/19 [Rx] Metoclopramide [Reglan] 5 mg PO Q8H PRN 3 Days #9 tab 02/06/19 [Rx] Ondansetron [Zofran ODT] 4 mg PO Q6H PRN 2 Days #8 tab.dis 02/06/19 [Rx] Sulfamethoxazole/Trimethoprim [Sulfamethoxazole-Tmp Ds Tablet] 1 each PO BID 5 Days #10 tablet 02/06/19 [Rx] Oxygen Therapy Mode: Room Air Patient Handouts: Diabetic Ketoacidosis Forms: ED Department Discharge Referrals: Jacinta Lora MD [Ordering Only Provider] - PCP,None [Primary Care Provider] - Zahra Rodriguez MD [Physician] - - Discharge Summary/Plan Comment DC Time >30 min.: No - Patient Data Vitals - Most Recent: Last Vital Signs Temp 97.6 F 02/06/19 07:00 Pulse 130 H 02/03/19 05:46 Resp 13 02/06/19 12:00 BP 125/86 02/06/19 12:00 Pulse Ox 98 02/06/19 12:00 Weight - Most Recent: 116 lb 8 oz I&O - Last 24 hours: Intake & Output 02/05/19 02/06/19 02/06/19 22:59 06:59 14:59 Intake Total 2726 1424 Output Total 600 1925 Balance 2126 -501 Lab Results - Last 24 hrs: Laboratory Results - last 24 hr 02/05/19 02/05/19 02/05/19 Range/Units 14:21 14:59 17:14 WBC (4.0-11.0) K/uL RBC (4.50-5.90) M/uL Hgb (13.0-17.0) g/dL Hct (38.0-50.0) % MCV (80.0-98.0) fL MCH (27.0-32.0) pg MCHC (31.0-37.0) g/dL RDW Std Deviation (28.0-62.0) fl RDW Coeff of Erika (11.0-15.0) % Plt Count (150-400) K/uL MPV (7.40-12.00) fL Neut % (Auto) (48.0-80.0) % Lymph % (Auto) (16.0-40.0) % Bee % (Auto) (0.0-15.0) % Eos % (Auto) (0.0-7.0) % Baso % (Auto) (0.0-1.5) % Neut # (Auto) (1.4-5.7) K/uL Lymph # (Auto) (0.6-2.4) K/uL Bee # (Auto) (0.0-0.8) K/uL Eos # (Auto) (0.0-0.7) K/uL Baso # (Auto) (0.0-0.1) K/uL Nucleated RBC % /100WBC Nucleated RBCs # K/uL Sodium (136-148) mmol/L Potassium (3.5-5.1) mmol/L Chloride (98-107) mmol/L Carbon Dioxide (21.0-32.0) mmol/L BUN (7.0-18.0) mg/dL Creatinine (0.8-1.3) mg/dL Est Cr Clr Drug Dosing mL/min Estimated GFR (MDRD) ml/min Glucose (74-106) mg/dL POC Glucose 268 H 305 H 316 H (60-110) mg/dL Calcium (8.5-10.1) mg/dL Total Bilirubin (0.2-1.0) mg/dL AST (15-37) IU/L ALT (14-63) IU/L Alkaline Phosphatase (46-116) U/L Total Protein (6.4-8.2) g/dL Albumin (3.4-5.0) g/dL Globulin (2.6-4.0) g/dL Albumin/Globulin Ratio (0.9-1.6) 02/05/19 02/05/19 02/05/19 Range/Units 18:55 21:07 22:43 WBC (4.0-11.0) K/uL RBC (4.50-5.90) M/uL Hgb (13.0-17.0) g/dL Hct (38.0-50.0) % MCV (80.0-98.0) fL MCH (27.0-32.0) pg MCHC (31.0-37.0) g/dL RDW Std Deviation (28.0-62.0) fl RDW Coeff of Erika (11.0-15.0) % Plt Count (150-400) K/uL MPV (7.40-12.00) fL Neut % (Auto) (48.0-80.0) % Lymph % (Auto) (16.0-40.0) % Bee % (Auto) (0.0-15.0) % Eos % (Auto) (0.0-7.0) % Baso % (Auto) (0.0-1.5) % Neut # (Auto) (1.4-5.7) K/uL Lymph # (Auto) (0.6-2.4) K/uL Bee # (Auto) (0.0-0.8) K/uL Eos # (Auto) (0.0-0.7) K/uL Baso # (Auto) (0.0-0.1) K/uL Nucleated RBC % /100WBC Nucleated RBCs # K/uL Sodium (136-148) mmol/L Potassium (3.5-5.1) mmol/L Chloride (98-107) mmol/L Carbon Dioxide (21.0-32.0) mmol/L BUN (7.0-18.0) mg/dL Creatinine (0.8-1.3) mg/dL Est Cr Clr Drug Dosing mL/min Estimated GFR (MDRD) ml/min Glucose (74-106) mg/dL POC Glucose 259 H 231 H 235 H (60-110) mg/dL Calcium (8.5-10.1) mg/dL Total Bilirubin (0.2-1.0) mg/dL AST (15-37) IU/L ALT (14-63) IU/L Alkaline Phosphatase (46-116) U/L Total Protein (6.4-8.2) g/dL Albumin (3.4-5.0) g/dL Globulin (2.6-4.0) g/dL Albumin/Globulin Ratio (0.9-1.6) 02/06/19 02/06/19 02/06/19 Range/Units 01:51 03:57 05:41 WBC (4.0-11.0) K/uL RBC (4.50-5.90) M/uL Hgb (13.0-17.0) g/dL Hct (38.0-50.0) % MCV (80.0-98.0) fL MCH (27.0-32.0) pg MCHC (31.0-37.0) g/dL RDW Std Deviation (28.0-62.0) fl RDW Coeff of Erika (11.0-15.0) % Plt Count (150-400) K/uL MPV (7.40-12.00) fL Neut % (Auto) (48.0-80.0) % Lymph % (Auto) (16.0-40.0) % Bee % (Auto) (0.0-15.0) % Eos % (Auto) (0.0-7.0) % Baso % (Auto) (0.0-1.5) % Neut # (Auto) (1.4-5.7) K/uL Lymph # (Auto) (0.6-2.4) K/uL Bee # (Auto) (0.0-0.8) K/uL Eos # (Auto) (0.0-0.7) K/uL Baso # (Auto) (0.0-0.1) K/uL Nucleated RBC % /100WBC Nucleated RBCs # K/uL Sodium (136-148) mmol/L Potassium (3.5-5.1) mmol/L Chloride (98-107) mmol/L Carbon Dioxide (21.0-32.0) mmol/L BUN (7.0-18.0) mg/dL Creatinine (0.8-1.3) mg/dL Est Cr Clr Drug Dosing mL/min Estimated GFR (MDRD) ml/min Glucose (74-106) mg/dL POC Glucose 109 49 L 155 H (60-110) mg/dL Calcium (8.5-10.1) mg/dL Total Bilirubin (0.2-1.0) mg/dL AST (15-37) IU/L ALT (14-63) IU/L Alkaline Phosphatase (46-116) U/L Total Protein (6.4-8.2) g/dL Albumin (3.4-5.0) g/dL Globulin (2.6-4.0) g/dL Albumin/Globulin Ratio (0.9-1.6) 02/06/19 02/06/19 02/06/19 Range/Units 06:15 06:15 08:08 WBC 7.41 (4.0-11.0) K/uL RBC 3.54 L (4.50-5.90) M/uL Hgb 9.4 L (13.0-17.0) g/dL Hct 28.4 L (38.0-50.0) % MCV 80.2 (80.0-98.0) fL MCH 26.6 L (27.0-32.0) pg MCHC 33.1 (31.0-37.0) g/dL RDW Std Deviation 39.9 (28.0-62.0) fl RDW Coeff of Erika 14 (11.0-15.0) % Plt Count 217 (150-400) K/uL MPV 9.60 (7.40-12.00) fL Neut % (Auto) 74.8 (48.0-80.0) % Lymph % (Auto) 18.2 (16.0-40.0) % Bee % (Auto) 6.3 (0.0-15.0) % Eos % (Auto) 0.4 (0.0-7.0) % Baso % (Auto) 0.3 (0.0-1.5) % Neut # (Auto) 5.5 (1.4-5.7) K/uL Lymph # (Auto) 1.4 (0.6-2.4) K/uL Bee # (Auto) 0.5 (0.0-0.8) K/uL Eos # (Auto) 0.0 (0.0-0.7) K/uL Baso # (Auto) 0.0 (0.0-0.1) K/uL Nucleated RBC % 0.0 /100WBC Nucleated RBCs # 0 K/uL Sodium 138 (136-148) mmol/L Potassium 3.0 L (3.5-5.1) mmol/L Chloride 103 (98-107) mmol/L Carbon Dioxide 23.5 (21.0-32.0) mmol/L BUN 7 (7.0-18.0) mg/dL Creatinine 0.5 L (0.8-1.3) mg/dL Est Cr Clr Drug Dosing 174.68 mL/min Estimated GFR (MDRD) > 60.0 ml/min Glucose 182 H (74-106) mg/dL POC Glucose 127 H (60-110) mg/dL Calcium 8.2 L (8.5-10.1) mg/dL Total Bilirubin 0.2 (0.2-1.0) mg/dL AST 8 L (15-37) IU/L ALT 11 L (14-63) IU/L Alkaline Phosphatase 88 (46-116) U/L Total Protein 6.4 (6.4-8.2) g/dL Albumin 1.9 L (3.4-5.0) g/dL Globulin 4.5 H (2.6-4.0) g/dL Albumin/Globulin Ratio 0.4 L (0.9-1.6) 02/06/19 Range/Units 10:57 WBC (4.0-11.0) K/uL RBC (4.50-5.90) M/uL Hgb (13.0-17.0) g/dL Hct (38.0-50.0) % MCV (80.0-98.0) fL MCH (27.0-32.0) pg MCHC (31.0-37.0) g/dL RDW Std Deviation (28.0-62.0) fl RDW Coeff of Erika (11.0-15.0) % Plt Count (150-400) K/uL MPV (7.40-12.00) fL Neut % (Auto) (48.0-80.0) % Lymph % (Auto) (16.0-40.0) % Bee % (Auto) (0.0-15.0) % Eos % (Auto) (0.0-7.0) % Baso % (Auto) (0.0-1.5) % Neut # (Auto) (1.4-5.7) K/uL Lymph # (Auto) (0.6-2.4) K/uL Bee # (Auto) (0.0-0.8) K/uL Eos # (Auto) (0.0-0.7) K/uL Baso # (Auto) (0.0-0.1) K/uL Nucleated RBC % /100WBC Nucleated RBCs # K/uL Sodium (136-148) mmol/L Potassium (3.5-5.1) mmol/L Chloride (98-107) mmol/L Carbon Dioxide (21.0-32.0) mmol/L BUN (7.0-18.0) mg/dL Creatinine (0.8-1.3) mg/dL Est Cr Clr Drug Dosing mL/min Estimated GFR (MDRD) ml/min Glucose (74-106) mg/dL POC Glucose 198 H (60-110) mg/dL Calcium (8.5-10.1) mg/dL Total Bilirubin (0.2-1.0) mg/dL AST (15-37) IU/L ALT (14-63) IU/L Alkaline Phosphatase (46-116) U/L Total Protein (6.4-8.2) g/dL Albumin (3.4-5.0) g/dL Globulin (2.6-4.0) g/dL Albumin/Globulin Ratio (0.9-1.6) YADY Results - Last 24 hrs: Microbiology 02/03/19 07:20 Aerobic Blood Culture - Preliminary Blood - Venous - Lab Draw NO GROWTH AFTER 3 DAYS Anaerobic Blood Culture - Preliminary NO GROWTH AFTER 3 DAYS 02/03/19 06:55 Aerobic Blood Culture - Preliminary Blood - Venous NO GROWTH AFTER 3 DAYS Anaerobic Blood Culture - Preliminary NO GROWTH AFTER 3 DAYS Med Orders - Current: Current Medications Enoxaparin Sodium (Lovenox) 40 mg SUBCUT DAILY@1400 [facility] Ceftriaxone Sodium 1 gm/ (Sodium Chloride) 50 mls @ 100 mls/hr IV Q24H [facility] Last Admin: 02/06/19 08:49 Dose: 100 mls/hr Insulin Human Regular 100 unit (/ Sodium Chloride) 100 mls @ 6 mls/hr IV TITRATE [facility]; Protocol Last Titration: 02/05/19 15:00 Dose: 0 unit/hr, 0 mls/hr Potassium Chloride/Sodium Chloride (1/2 Ns With 20 Meq Kcl) 1,000 mls @ 75 mls/ hr IV ASDIRECTED [facility] Last Admin: 02/04/19 21:38 Dose: 75 mls/hr Pantoprazole Sodium 40 mg/ (Sodium Chloride) 10 mls @ 300 mls/hr IV Q24H [facility] Last Admin: 02/06/19 13:25 Dose: 200 mls/hr Insulin Aspart (Novolog) 0 unit SUBCUT TIDAC [facility]; Protocol Last Admin: 02/06/19 13:28 Dose: 2 units Insulin Glargine (Lantus Solostar) 20 units SUBCUT DAILY [facility] Last Admin: 02/06/19 11:23 Dose: Not Given Lorazepam (Ativan) 1 mg IVPUSH Q4H PRN PRN Reason: Withdrawal Symptoms Last Admin: 02/04/19 09:54 Dose: 1 mg Metoclopramide HCl (Reglan) 10 mg IVPUSH Q8H [facility] Last Admin: 02/06/19 05:35 Dose: 10 mg Ondansetron HCl (Zofran Odt) 8 mg PO QID PRN PRN Reason: Nausea/Vomiting Ondansetron HCl (Zofran) 4 mg IVPUSH Q6H PRN PRN Reason: Vomiting Last Admin: 02/05/19 08:18 Dose: 4 mg Patient's Own Medication 1 Each Buprenorphine 8mg/Naloxone 2mg Tab 1 each PO BIDMEALS [facility] Last Admin: 02/06/19 08:49 Dose: 1 each Discontinued Medications Dextrose/Water (Dextrose 50% In Water) 25 ml IVPUSH ONETIME ONE Stop: 02/03/19 19:08 Last Admin: 02/03/19 19:30 Dose: 50 ml Dextrose/Water (Dextrose 50% In Water) 50 ml IVPUSH ONETIME ONE Stop: 02/03/19 23:13 Last Admin: 02/03/19 23:23 Dose: 50 ml Diphenhydramine HCl (Benadryl) 50 mg IVPUSH ONETIME ONE Stop: 02/03/19 03:58 Last Admin: 02/03/19 04:06 Dose: 50 mg Diphenhydramine HCl (Benadryl) Confirm Administered Dose 50 mg .ROUTE .STK-MED ONE Stop: 02/03/19 04:00 Last Admin: 02/03/19 04:04 Dose: Not Given Diphenhydramine HCl (Benadryl) 25 mg IVPUSH ONETIME ONE Stop: 02/03/19 04:04 Last Admin: 02/03/19 04:11 Dose: Not Given Dronabinol (Marinol) 2.5 mg PO ONETIME ONE Stop: 02/05/19 10:34 Last Admin: 02/05/19 10:51 Dose: 2.5 mg Hydromorphone HCl (Dilaudid) 1 mg IM ONETIME ONE Stop: 02/03/19 05:25 Last Admin: 02/03/19 05:36 Dose: Not Given Hydromorphone HCl (Dilaudid) 1 mg IVPUSH ONETIME ONE Stop: 02/03/19 05:39 Last Admin: 02/03/19 05:38 Dose: 1 mg Hydromorphone HCl (Dilaudid) 0.5 mg IVPUSH Q4H [facility] Last Admin: 02/03/19 11:53 Dose: 0.5 mg Hydromorphone HCl (Dilaudid) 0.5 mg IVPUSH Q4H [facility] Last Admin: 02/04/19 08:00 Dose: Not Given Sodium Chloride (Normal Saline) 1,000 mls @ 999 mls/hr IV .Bolus ONE Stop: 02/03/19 04:54 Last Admin: 02/03/19 04:02 Dose: 999 mls/hr Insulin Human Regular 100 unit (/ Sodium Chloride) 100 mls @ 6 mls/hr IV TITRATE [facility]; Protocol Last Titration: 02/04/19 18:10 Dose: 0 unit/hr, 0 mls/hr Sodium Chloride (Normal Saline) 500 mls @ 999 mls/hr IV .BOLUS ONE Stop: 02/03/19 07:08 Last Admin: 02/03/19 06:40 Dose: 999 mls/hr Sodium Chloride (Normal Saline) 1,000 mls @ 125 mls/hr IV ASDIRECTED [facility] Last Admin: 02/03/19 10:47 Dose: 125 mls/hr Sodium Chloride (Normal Saline) 1,000 mls @ 999 mls/hr IV STAT ONE Stop: 02/03/19 09:58 Last Admin: 02/03/19 09:09 Dose: 999 mls/hr Dextrose/Sodium Chloride (Dextrose 5%-1/2 Ns) 1,000 mls @ 125 mls/hr IV ASDIRECTED [facility] Last Infusion: 02/03/19 17:12 Dose: Infused Potassium Chloride 20 meq/ (Premix) 50 mls @ 25 mls/hr IV ONETIME ONE Stop: 02/03/19 18:23 Last Admin: 02/03/19 18:06 Dose: 25 mls/hr Dextrose/Sodium Chloride (Dextrose 5%-1/2 Ns) 1,000 mls @ 250 mls/hr IV ASDIRECTED [facility] Last Admin: 02/04/19 06:23 Dose: 250 mls/hr Potassium Chloride 40 meq/ (Premix) 100 mls @ 25 mls/hr IV ONETIME ONE Stop: 02/04/19 01:37 Last Admin: 02/03/19 21:57 Dose: 25 mls/hr Sodium Chloride (Normal Saline) 1,000 mls @ 125 mls/hr IV Q8H [facility] Last Infusion: 02/04/19 17:16 Dose: 125 mls/hr Potassium Chloride 40 meq/ (Premix) 100 mls @ 25 mls/hr IV ONETIME ONE Stop: 02/05/19 10:29 Last Admin: 02/05/19 07:03 Dose: 25 mls/hr Magnesium Sulfate 2 gm/ Premix 50 mls @ 25 mls/hr IV ONETIME ONE Stop: 02/05/19 10:07 Last Admin: 02/05/19 19:25 Dose: Not Given Magnesium Sulfate 2 gm/ Premix 50 mls @ 50 mls/hr IV ONETIME ONE Stop: 02/05/19 11:29 Last Admin: 02/05/19 10:48 Dose: 50 mls/hr Sodium Chloride (Sodium Chloride 0.45%) 1,000 mls @ 75 mls/hr IV ASDIRECTED [facility] Stop: 02/06/19 11:30 Last Infusion: 02/06/19 11:36 Dose: 0 mls/hr Insulin Glargine (Lantus Solostar) 20 units SUBCUT ONETIME STA Stop: 02/05/19 22:14 Last Admin: 02/05/19 22:48 Dose: 20 units Insulin Human Regular (Novolin R) 10 unit IVPUSH ONETIME ONE; Protocol Stop: 02/03/19 04:31 Last Admin: 02/03/19 04:37 Dose: 10 unit Insulin Human Regular (Novolin R) 0 unit IVPUSH QIDACANDBED [facility]; Protocol Insulin Human Regular (Novolin R) 0 unit SUBCUT QIDACANDBED [facility]; Protocol Last Admin: 02/05/19 13:20 Dose: Not Given Insulin Human Regular (Novolin R) 10 unit SUBCUT ONETIME ONE; Protocol Stop: 02/05/19 22:09 Last Admin: 02/05/19 22:44 Dose: 10 units Lidocaine HCl (Lidocaine 5%) 2 gm TOP ONETIME ONE Stop: 02/03/19 07:21 Last Admin: 02/03/19 08:33 Dose: Not Given Lidocaine HCl (Lidocaine 5%) 2 gm TOP ONETIME ONE Stop: 02/03/19 08:16 Last Admin: 02/03/19 09:01 Dose: 2 gm Lorazepam (Ativan) 1 mg IVPUSH ONETIME ONE Stop: 02/03/19 08:35 Last Admin: 02/03/19 09:01 Dose: 1 mg Metoclopramide HCl (Reglan) 10 mg IVPUSH ONETIME ONE Stop: 02/03/19 03:58 Last Admin: 02/03/19 04:06 Dose: 10 mg Metoclopramide HCl (Reglan) Confirm Administered Dose 10 mg .ROUTE .STK-MED ONE Stop: 02/03/19 04:00 Last Admin: 02/03/19 04:04 Dose: Not Given Metoclopramide HCl (Reglan) 10 mg IVPUSH ONETIME ONE Stop: 02/03/19 19:23 Last Admin: 02/03/19 19:58 Dose: 10 mg Metoclopramide HCl (Reglan) 10 mg IVPUSH ONETIME ONE Stop: 02/04/19 08:38 Last Admin: 02/04/19 09:04 Dose: 10 mg Ondansetron HCl (Zofran) 4 mg IVPUSH ONETIME ONE Stop: 02/03/19 04:30 Last Admin: 02/03/19 04:37 Dose: 4 mg Ondansetron HCl (Zofran) 4 mg IVPUSH Q4H PRN PRN Reason: Nausea/Vomiting Stop: 02/04/19 06:00 Last Admin: 02/04/19 05:22 Dose: 4 mg Ondansetron HCl (Zofran) 4 mg IVPUSH ONETIME ONE Stop: 02/03/19 19:06 Last Admin: 02/03/19 19:10 Dose: 4 mg Buprenorphine Hcl/Naloxone Hcl [ Suboxone 8/2mg Tablet] 2 each PO DAILY [facility] Last Admin: 02/04/19 11:24 Dose: 1 each Buprenorphine Hcl/Naloxone Hcl [ Suboxone 8/2mg Tablet] #Patients Own# 2 each PO BIDMEALS [facility] Potassium Chloride (Potassium Chloride Solution) 40 meq PO Q4HR [facility] Stop: 02/04/19 00:01 Last Admin: 02/03/19 20:39 Dose: Not Given Potassium Chloride (Klor-Con M20) 40 meq PO ONETIME ONE Stop: 02/04/19 10:54 Last Admin: 02/04/19 14:35 Dose: Not Given Potassium Chloride (Klor-Con M20) 40 meq PO ONETIME ONE Stop: 02/06/19 10:26 Last Admin: 02/06/19 10:54 Dose: 40 meq
== END 2019-02-06 14:00 | disposition home or self-care (01) | DRG 871 ==
LOC: MW.ED 03:36 → MW.ICU 05:36
PROVIDERS: ADMIT Internal Medicine; ATTEND Internal Medicine
DX: A41.9 Sepsis, unspecified organism (principal); K58.9 Irritable bowel syndrome, unspecified; E10.10 Type 1 diabetes mellitus with ketoacidosis without coma; N13.6 Pyonephrosis; F11.20 Opioid dependence, uncomplicated; E10.43 Type 1 diabetes mellitus with diabetic autonomic (poly)neuropathy; K31.84 Gastroparesis; E86.0 Dehydration; N31.9 Neuromuscular dysfunction of bladder, unspecified; B96.20 Unspecified Escherichia coli [E. coli] as the cause of diseases classified elsewhere; F41.9 Anxiety disorder, unspecified; F32.9 Major depressive disorder, single episode, unspecified; Z96.0 Presence of urogenital implants; F17.210 Nicotine dependence, cigarettes, uncomplicated; Z91.14 Patient's other noncompliance with medication regimen; Z79.4 Long term (current) use of insulin; Z79.899 Other long term (current) drug therapy; Z88.5 Allergy status to narcotic agent
CPT/HCPCS: 36415; 71045; 80053; 82803; 82962; 83605; 83690; 85025; 87088; 96361; 96374; 96375; 99285; J1170; J1200; J1815 ×2; J2405; J2765; J7030; J7050; 51701; 51702; 80048; 81001; 83735; 87040; 87086; 87186; 93005; 96376; 99284; A9270-GY; C9113; J0696; J2060; J3475; J3480; J7042; Q0167

== ENCOUNTER 2019-06-14 23:01 | Inpatient (IN) | payer MEDICAID ==
[2019-06-14] MEDS ORDERED: Sodium Chloride 0.9% 1,000 ML IV ONE (23:59)
[2019-06-15 00:32] LABS: BLOOD UREA NITROGEN,BUN 9 mg/dL (7.0-18.0); CARBON DIOXIDE,CO2 27.7 mmol/L (21.0-32.0); CHLORIDE,CL 100 mmol/L (98-107); GLUCOSE RANDOM 305 mg/dL (74-106); SODIUM,NA 137 mmol/L (136-148)
[2019-06-15] MEDS ORDERED: Ondansetron 4 MG/2 ML SDV IVPUSH ONE ×3 (01:11→03:36)
[2019-06-15] MEDS ORDERED: Sodium Chloride 0.9% 1,000 ML IV ONE ×3 (01:11→03:38)
[2019-06-15] MEDS ORDERED: Ketorolac 30 MG/ML SDV IVPUSH ONE (01:12)
[2019-06-15] MEDS ORDERED: hydrOXYzine HCl 25 MG Tab PO ONE (01:13)
[2019-06-15] MEDS ORDERED: Pantoprazole 40 MG in Sodium Chloride 0.9% 10 ML IV ONE (01:14)
--- NOTE | 2019-06-15 01:14 | EDM.PDOC ---
ED HPI GENERAL MEDICAL PROBLEM - General Chief Complaint: Gastrointestinal Problem Stated Complaint: VOMITING Time Seen by Provider: 06/15/19 01:07 Source of Information: Reports: Patient History Limitations: Reports: No Limitations - History of Present Illness INITIAL COMMENTS - FREE TEXT/NARRATIVE: Patient is a 23-year-old male who presents with having abdominal pain with vomiting which is been going on for 1 day. Patient has had no diarrhea and no hematemesis or black or tarry stools. He denies any fever chills. Nominal pain seems to be more upper. Had similar episodes previously and has a diagnosis of gastroparesis. Patient has been admitted before for diabetic ketoacidosis. Staff is very familiar with him. Patient does not have a diagnosis of cyclic vomiting denies using any drugs or alcohol. He has no cough chest pain or shortness of breath. He does not have a surgical history. Onset: Today Duration: Hour(s): (four) Location: Reports: Abdomen Quality: Reports: Ache Severity: Severe Improves with: Reports: None Worsens with: Reports: Eating Associated Symptoms: Reports: No Other Symptoms Abdomen Pain Score (Numeric/FACES): 10 - Related Data Allergies Allergy/AdvReac Type Severity Reaction Status Date / Time morphine Allergy Itching Verified 06/14/19 23:18 Home Meds: Home Meds Insulin Aspart [NovoLOG] 5 units SUBCUT TIDAC 07/23/18 [History] Ferrous Sulfate [Iron] 325 mg PO BID 09/15/18 [History] Hyoscyamine [Hyomax-SL] 0.125 mg SL Q4H PRN #20 tab.sl 09/16/18 [Rx] Buprenorphine HCl/Naloxone HCl [Zubsolv 5.7-1.4 mg Tablet Sl] 1 each SL DAILY [History] Insulin Glarg,Human.Rec.Analog [Lantus] 40 unit SUBCUT DAILY 12/18/18 [History] Diclofenac Sodium [Voltaren] 75 mg PO BID 02/02/19 [History] methocarbamoL [Robaxin] 500 mg PO TID #20 tablet 02/02/19 [Rx] Metoclopramide [Reglan] 5 mg PO Q8H PRN 3 Days #9 tab 02/06/19 [Rx] Ondansetron [Zofran ODT] 4 mg PO Q6H PRN 2 Days #8 tab.dis 02/06/19 [Rx] Sulfamethoxazole/Trimethoprim [Sulfamethoxazole-Tmp Ds Tablet] 1 each PO BID 5 Days #10 tablet 02/06/19 [Rx] Past Medical History - Past Health History Medical/Surgical History: Denies Medical/Surgical History HEENT History: Reports: Other (See Below) Other HEENT History: ear ache Cardiovascular History: Reports: None Respiratory History: Reports: None Gastrointestinal History: Reports: Irritable Bowel Syndrome Other Gastrointestinal History: gastropharesis Genitourinary History: Reports: Pyelonephritis, Other (See Below) Other Genitourinary History: hydronephrosis; with indwelling urinary catheter Musculoskeletal History: Reports: Fracture Other Musculoskeletal History: Elbow long time ago Neurological History: Reports: None Psychiatric History: Reports: Anxiety, Depression Endocrine/Metabolic History: Reports: Diabetes, Type I Other Endocrine/Metabolic History: non-compliant to DM medications Insulin Pump Model 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 Resources 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: None Hematologic History: Reports: None Immunologic History: Reports: None Oncologic (Cancer) History: Reports: None Dermatologic History: Reports: Other (See Below) Other Dermatologic History: dry itchy skin - Infectious Disease History Infectious Disease History: Reports: None - Past Surgical History HEENT Surgical History: Reports: None GI Surgical History: Reports: None Male Surgical History: Reports: None Endocrine Surgical History: Reports: None Musculoskeletal Surgical History: Reports: None Dermatological Surgical History: Reports: None Social & Family History - Family History Family Medical History: Noncontributory OBGYN: Reports: Endocrine/Metabolic: Reports: Diabetes, Type I, Diabetes, type II - Tobacco Use Smoking Status *Q: Current Every Day Smoker Years of Tobacco use: 1 Packs/Tins Daily: 0.3 - Caffeine Use Caffeine Use: Reports: Coffee, Soda - Recreational Drug Use Recreational Drug Use: No - Living Situation & Occupation Living situation: Reports: Single, with Family Occupation: Unemployed ED ROS GENERAL - Review of Systems Review Of Systems: Comprehensive ROS is negative, except as noted in HPI. ED EXAM, GI/ABD - Physical Exam Exam: See Below Exam Limited By: No Limitations General Appearance: Moderate Distress, Thin, Cachetic, Active Emesis Throat/Mouth: Other (Mucous membranes are dry) Neck: Normal Inspection, Supple Respiratory/Chest: No Respiratory Distress, Lungs Clear, Normal Breath Sounds Cardiovascular: Regular Rate, Rhythm, No JVD GI/Abdominal Exam: Rebound, Tender, Abnormal Bowel Sounds, Other (There is bowel sounds. Tenderness more in the upper abdomen.) Back Exam: Normal Inspection Extremities: Normal Inspection, Normal Range of Motion Neurological: Alert Psychiatric: Depressed Mood, Flat Affect Skin Exam: Warm, Dry Lymphatic: No Adenopathy Course - Vital Signs Text/Narrative:: Patient's blood work is negative for ketones. His white blood cell count is unremarkable. Urine does show greater than 1000 glucose and 40 of ketones. Patient's urine tox was negative. Patient was given 3 L of IV fluid multiple antiemetics and Protonix with no improvement of his symptoms. Patient will still not drink any p.o. fluids. I am admitting him at this point for intractable vomiting and abdominal pain with history of gastroparesis. Last Recorded V/S: Last Vital Signs Temp 36.2 C 06/15/19 03:46 Pulse 102 H 06/15/19 04:50 Resp 14 06/15/19 04:50 BP 125/84 06/15/19 04:50 Pulse Ox 99 06/15/19 04:50 - Orders/Labs/Meds Orders: Active Orders 24 hr Category Date Time Status CULTURE URINE [RM] Stat Lab 06/15/19 02:55 Received Labs: Laboratory Tests 06/14/19 06/14/19 06/14/19 Range/Units 23:24 23:50 23:50 WBC 9.91 (4.0-11.0) K/uL RBC 4.34 L (4.50-5.90) M/uL Hgb 10.6 L (13.0-17.0) g/dL Hct 34.5 L (38.0-50.0) % MCV 79.5 L (80.0-98.0) fL MCH 24.4 L (27.0-32.0) pg MCHC 30.7 L (31.0-37.0) g/dL RDW Std Deviation 40.9 (28.0-62.0) fl RDW Coeff of Erika 14 (11.0-15.0) % Plt Count 428 H (150-400) K/uL MPV 9.50 (7.40-12.00) fL Neut % (Auto) 86.3 H (48.0-80.0) % Lymph % (Auto) 10.4 L (16.0-40.0) % [place] % (Auto) 3.0 (0.0-15.0) % Eos % (Auto) 0.2 (0.0-7.0) % Baso % (Auto) 0.1 (0.0-1.5) % Neut # (Auto) 8.6 H (1.4-5.7) K/uL Lymph # (Auto) 1.0 (0.6-2.4) K/uL [place] # (Auto) 0.3 (0.0-0.8) K/uL Eos # (Auto) 0.0 (0.0-0.7) K/uL Baso # (Auto) 0.0 (0.0-0.1) K/uL Nucleated RBC % 0.0 /100WBC Nucleated RBCs # 0 K/uL Sodium 137 (136-148) mmol/L Potassium 4.0 (3.5-5.1) mmol/L Chloride 100 (98-107) mmol/L Carbon Dioxide 27.7 (21.0-32.0) mmol/L BUN 9 (7.0-18.0) mg/dL Creatinine 0.8 (0.8-1.3) mg/dL Est Cr Clr Drug Dosing 102.06 mL/min Estimated GFR (MDRD) > 60.0 ml/min Glucose 305 H (74-106) mg/dL POC Glucose 292 H (60-110) mg/dL Calcium 8.9 (8.5-10.1) mg/dL Total Bilirubin 0.2 (0.2-1.0) mg/dL AST 9 L (15-37) IU/L ALT 8 L (14-63) IU/L Alkaline Phosphatase 105 (46-116) U/L Total Protein 8.1 (6.4-8.2) g/dL Albumin 2.4 L (3.4-5.0) g/dL Globulin 5.7 H (2.6-4.0) g/dL Albumin/Globulin Ratio 0.4 L (0.9-1.6) Urine Color Urine Appearance Urine pH (5.0-8.0) Ur Specific [place] (1.001-1.035) Urine Protein (NEGATIVE) mg/dL Urine Glucose (UA) (NEGATIVE) mg/dL Urine Ketones (NEGATIVE) mg/dL Urine Occult Blood (NEGATIVE) Urine Nitrite (NEGATIVE) Urine Bilirubin (NEGATIVE) Urine Urobilinogen (<2.0) EU/dL Ur Leukocyte Esterase (NEGATIVE) Urine RBC (0-2/HPF) Urine WBC (0-5/HPF) Ur Epithelial Cells (NONE-FEW) Amorphous Sediment (NEGATIVE) Urine Bacteria (NEGATIVE) Urine Opiates Screen (NEGATIVE) Ur Oxycodone Screen (NEGATIVE) Urine Methadone Screen (NEGATIVE) Ur Barbiturates Screen (NEGATIVE) Ur Phencyclidine Scrn (NEGATIVE) Ur Amphetamine Screen (NEGATIVE) U Methamphetamines Scrn (NEGATIVE) U Benzodiazepines Scrn (NEGATIVE) U Cocaine Metab Screen (NEGATIVE) U Marijuana (THC) Screen (NEGATIVE) Ketones (NEG) 06/14/19 06/15/19 06/15/19 Range/Units 23:50 02:55 02:55 WBC (4.0-11.0) K/uL RBC (4.50-5.90) M/uL Hgb (13.0-17.0) g/dL Hct (38.0-50.0) % MCV (80.0-98.0) fL MCH (27.0-32.0) pg MCHC (31.0-37.0) g/dL RDW Std Deviation (28.0-62.0) fl RDW Coeff of Erika (11.0-15.0) % Plt Count (150-400) K/uL MPV (7.40-12.00) fL Neut % (Auto) (48.0-80.0) % Lymph % (Auto) (16.0-40.0) % [place] % (Auto) (0.0-15.0) % Eos % (Auto) (0.0-7.0) % Baso % (Auto) (0.0-1.5) % Neut # (Auto) (1.4-5.7) K/uL Lymph # (Auto) (0.6-2.4) K/uL [place] # (Auto) (0.0-0.8) K/uL Eos # (Auto) (0.0-0.7) K/uL Baso # (Auto) (0.0-0.1) K/uL Nucleated RBC % /100WBC Nucleated RBCs # K/uL Sodium (136-148) mmol/L Potassium (3.5-5.1) mmol/L Chloride (98-107) mmol/L Carbon Dioxide (21.0-32.0) mmol/L BUN (7.0-18.0) mg/dL Creatinine (0.8-1.3) mg/dL Est Cr Clr Drug Dosing mL/min Estimated GFR (MDRD) ml/min Glucose (74-106) mg/dL POC Glucose (60-110) mg/dL Calcium (8.5-10.1) mg/dL Total Bilirubin (0.2-1.0) mg/dL AST (15-37) IU/L ALT (14-63) IU/L Alkaline Phosphatase (46-116) U/L Total Protein (6.4-8.2) g/dL Albumin (3.4-5.0) g/dL Globulin (2.6-4.0) g/dL Albumin/Globulin Ratio (0.9-1.6) Urine Color YELLOW Urine Appearance CLOUDY Urine pH 6.0 (5.0-8.0) Ur Specific [place] 1.025 (1.001-1.035) Urine Protein 30 H (NEGATIVE) mg/dL Urine Glucose (UA) >=1000 (NEGATIVE) mg/dL Urine Ketones 40 H (NEGATIVE) mg/dL Urine Occult Blood SMALL H (NEGATIVE) Urine Nitrite NEGATIVE (NEGATIVE) Urine Bilirubin NEGATIVE (NEGATIVE) Urine Urobilinogen 0.2 (<2.0) EU/dL Ur Leukocyte Esterase TRACE H (NEGATIVE) Urine RBC 1-2 (0-2/HPF) Urine WBC 8-10 (0-5/HPF) Ur Epithelial Cells RARE (NONE-FEW) Amorphous Sediment MODERATE (NEGATIVE) Urine Bacteria 2+ H (NEGATIVE) Urine Opiates Screen NEGATIVE (NEGATIVE) Ur Oxycodone Screen NEGATIVE (NEGATIVE) Urine Methadone Screen NEGATIVE (NEGATIVE) Ur Barbiturates Screen NEGATIVE (NEGATIVE) Ur Phencyclidine Scrn NEGATIVE (NEGATIVE) Ur Amphetamine Screen NEGATIVE (NEGATIVE) U Methamphetamines Scrn NEGATIVE (NEGATIVE) U Benzodiazepines Scrn NEGATIVE (NEGATIVE) U Cocaine Metab Screen NEGATIVE (NEGATIVE) U Marijuana (THC) Screen NEGATIVE (NEGATIVE) Ketones NEGATIVE (NEG) Meds: Medications Discontinued Medications Generic Name Dose Route Start Last Admin Trade Name Freq PRN Reason Stop Dose Admin Diphenhydramine HCl 50 mg 05/05/20 01:41 06/15/19 01:42 Benadryl IVPUSH 06/15/19 01:42 50 mg ONETIME ONE Administration Diphenhydramine HCl Confirm 06/15/19 01:40 06/15/19 01:47 Benadryl Administered 06/15/19 01:41 Not Given Dose 50 mg .ROUTE .STK-MED ONE Famotidine 40 mg 06/15/19 03:36 06/15/19 03:47 Pepcid IVPUSH 06/15/19 03:37 40 mg ONETIME ONE Administration Hydroxyzine HCl 25 mg 06/15/19 01:13 06/15/19 01:47 Atarax PO 06/15/19 01:14 Not Given ONETIME ONE Sodium Chloride 1,000 mls @ 999 mls/hr 06/14/19 23:59 06/15/19 00:00 Normal Saline IV 06/15/19 00:59 999 mls/hr .Bolus ONE Administration Sodium Chloride 1,000 mls @ 999 mls/hr 06/15/19 01:11 06/15/19 01:31 Normal Saline IV 06/15/19 02:11 999 mls/hr .BOLUS ONE Administration Pantoprazole Sodium 40 mg/ 10 mls @ 300 mls/hr 06/15/19 01:14 06/15/19 01:32 Sodium Chloride IV 06/15/19 01:15 300 mls/hr NOW ONE Administration Sodium Chloride 1,000 mls @ 999 mls/hr 06/15/19 03:37 06/15/19 03:48 Normal Saline IV 06/15/19 04:37 999 mls/hr .BOLUS ONE Administration Sodium Chloride 1,000 mls @ 999 mls/hr 06/15/19 03:38 06/15/19 03:49 Normal Saline IV 06/15/19 04:38 Not Given .BOLUS ONE Ketorolac Tromethamine 30 mg 06/15/19 01:12 06/15/19 01:31 Toradol IVPUSH 06/15/19 01:13 30 mg ONETIME ONE Administration Lorazepam 1 mg 06/15/19 04:42 06/15/19 04:51 Ativan IVPUSH 06/15/19 04:43 1 mg ONETIME ONE Administration Methylprednisolone Sodium Succinate 60 mg 06/15/19 01:30 06/15/19 01:42 Solu-Medrol IV 06/15/19 01:31 60 mg NOW ONE Administration Ondansetron HCl 4 mg 06/15/19 01:11 06/15/19 01:31 Zofran IVPUSH 06/15/19 01:12 4 mg ONETIME ONE Administration Ondansetron HCl 4 mg 06/15/19 03:36 06/15/19 03:47 Zofran IVPUSH 06/15/19 03:37 4 mg ONETIME ONE Administration Ondansetron HCl 4 mg 06/15/19 03:36 06/15/19 03:48 Zofran IVPUSH 06/15/19 03:37 Not Given ONETIME ONE Departure - Departure Time of Disposition: 05:59 Disposition: Refer to Observation Condition: Fair Clinical Impression: Diabetic gastroparesis, Abdominal pain, Intractable vomiting - Discharge Information Referrals: Lynsey Palm, [employer] [Primary Care Provider] - Forms: ED Department Discharge Sepsis Event Note - Evaluation Sepsis Screening Result: No Definite Risk - Focused Exam Vital Signs: Vital Signs Temp Pulse Resp BP Pulse Ox 06/15/19 04:50 102 H 14 125/84 99 06/15/19 03:46 36.2 C 103 H 14 126/86 100 06/15/19 03:34 36.7 C 102 H 14 131/86 100 06/15/19 02:17 103 H 14 129/85 100 06/15/19 01:48 104 H 14 124/90 98 06/15/19 01:14 103 H 18 126/92 H 99 06/14/19 23:20 36.4 C 102 H 18 141/94 H 98 Date Exam was Performed: 06/15/19 Time Exam was Performed: 05:47 - My Orders Last 24 Hours: My Active Orders 06/15/19 02:55 CULTURE URINE [RM] Stat - Assessment/Plan Last 24 Hours: My Active Orders 06/15/19 02:55 CULTURE URINE [RM] Stat
[2019-06-15] MEDS ORDERED: methylPREDNISolone Sodium Succinate 125 MG/2 ML SDV IV ONE (01:30)
[2019-06-15] MEDS ORDERED: diphenhydrAMINE 50 MG/ML SDV ONE (01:40)
[2019-06-15] MEDS ORDERED: diphenhydrAMINE 50 MG/ML SDV IVPUSH ONE (01:41)
[2019-06-15] MEDS ORDERED: Famotidine 20 MG/2 ML SDV IVPUSH ONE (03:36)
[2019-06-15] MEDS ORDERED: LORazepam 2 MG/ML SDV IVPUSH ONE (04:42)
[2019-06-15] MEDS ORDERED: Morphine 2 MG/ML Syringe IVPUSH PRN (06:29)
[2019-06-15] MEDS: Lactated Ringers 1,000 ML IV SCH ×2 (06:58→16:24)
[2019-06-15] MEDS ORDERED: Insulin Aspart 100 Units/ML 3 ML Pen SUBCUT SCH (07:30)
[2019-06-15] MEDS ORDERED: cefTRIAXone 1 GM in Premix Bag 1 BAG IV SCH (08:00)
[2019-06-15] MEDS: Metoclopramide 10 MG/2 ML SDV IVPUSH SCH ×3 (08:33→20:14)
--- NOTE | 2019-06-15 08:57 | PCM.HP.2 ---
H&P History of Present Illness - General Date of Service: 06/15/19 Admit Problem/Dx: Admission Diagnosis/Problem Admission Diagnosis/Problem Gastroparesis due to secondary diabetes Source of Information: Patient, Old Records History Limitations: Reports: No Limitations - History of Present Illness Initial Comments - Free Text/Narative: This 23 year old with significant medical history of DM type 1, non compliance , gastroparesis, neurogenic bladder, opioid abuse, and frequent DKA presented to the ED with complaints of abdominal pain and nausea x 1 day. Denies fevers or chills, denies URI symptoms. No chest pain or SOB. Reports abdominal and flank pain some burning with urination. Reports he has been urinating well, just urinates rarely and in large amounts. He reports he has been taking his Suboxone daily. Denies recreational drug use. No black or bloody BM no diarrhea. In the ED labwork otherwise not significant. Glucose 305, ketones in urine, but none noted in serum. ua tox negative. Ua revealed +2 bacteria, pyuria 8-10, trace LE and negative nitrites. he was given multiple medications in the ED including Zofran, Ativan, Atarax, Solumedrol, and Morphine. He continued to have symptoms so admission was recommended. Abdomen Pain Score (Numeric/FACES): 8 - Related Data Allergies/Adverse Reactions: Allergies Allergy/AdvReac Type Severity Reaction Status Date / Time morphine Allergy Itching Verified 06/15/19 08:22 Home Medications: Home Meds Insulin Aspart [NovoLOG] 5 units SUBCUT TIDAC 07/23/18 [History] Ferrous Sulfate [Iron] 325 mg PO BID 09/15/18 [History] Hyoscyamine [Hyomax-SL] 0.125 mg SL Q4H PRN #20 tab.sl 09/16/18 [Rx] Buprenorphine HCl/Naloxone HCl [Zubsolv 5.7-1.4 mg Tablet Sl] 1 each SL DAILY [History] Insulin Glarg,Human.Rec.Analog [Lantus] 40 unit SUBCUT DAILY 12/18/18 [History] Diclofenac Sodium [Voltaren] 75 mg PO BID 02/02/19 [History] methocarbamoL [Robaxin] 500 mg PO TID #20 tablet 02/02/19 [Rx] Metoclopramide [Reglan] 5 mg PO Q8H PRN 3 Days #9 tab 02/06/19 [Rx] Ondansetron [Zofran ODT] 4 mg PO Q6H PRN 2 Days #8 tab.dis 02/06/19 [Rx] Sulfamethoxazole/Trimethoprim [Sulfamethoxazole-Tmp Ds Tablet] 1 each PO BID 5 Days #10 tablet 02/06/19 [Rx] Past Medical History - Past Health History Medical/Surgical History: Denies Medical/Surgical History HEENT History: Reports: Other (See Below) Other HEENT History: ear ache Cardiovascular History: Reports: None. Denies: CAD, Hypertension Respiratory History: Reports: None Gastrointestinal History: Reports: Irritable Bowel Syndrome Other Gastrointestinal History: gastroparesis Genitourinary History: Reports: Pyelonephritis, Other (See Below) Other Genitourinary History: hydronephrosis, neurogenic bladder Musculoskeletal History: Reports: Fracture Other Musculoskeletal History: Elbow long time ago Neurological History: Reports: None Psychiatric History: Reports: Anxiety, Depression Endocrine/Metabolic History: Reports: Diabetes, Type I Other Endocrine/Metabolic History: non-compliant to DM medications Insulin Pump Model and Machine Buffer: None Hematologic History: Reports: None Immunologic History: Reports: None Oncologic (Cancer) History: Reports: None Dermatologic History: Reports: Other (See Below) Other Dermatologic History: dry itchy skin - Infectious Disease History Infectious Disease History: Reports: None - Past Surgical History HEENT Surgical History: Reports: None GI Surgical History: Reports: None Male Surgical History: Reports: None Endocrine Surgical History: Reports: None Musculoskeletal Surgical History: Reports: None Dermatological Surgical History: Reports: None Social & Family History - Family History Family Medical History: Noncontributory OBGYN: Reports: Endocrine/Metabolic: Reports: Diabetes, Type I, Diabetes, type II - Tobacco Use Smoking Status *Q: Current Every Day Smoker Years of Tobacco use: 1 Packs/Tins Daily: 0.3 - Caffeine Use Caffeine Use: Reports: Coffee, Soda - Recreational Drug Use Recreational Drug Use: No Recreational Drug Use Comment: Hx of opiod abuse, currently on Suboxone. - Living Situation & Occupation Living situation: Reports: Single, with Family Occupation: Unemployed H&P Review of Systems - Review of Systems: Review Of Systems: See Below General: Reports: Malaise. Denies: Fever, Chills Pulmonary: Reports: No Symptoms. Denies: Shortness of Breath Cardiovascular: Reports: No Symptoms. Denies: Chest Pain Gastrointestinal: Reports: Abdominal Pain, Nausea, Vomiting. Denies: Black Stool, Bloody Stool Genitourinary: Reports: Dysuria Musculoskeletal: Reports: No Symptoms Skin: Reports: No Symptoms Psychiatric: Reports: No Symptoms Neurological: Reports: No Symptoms Hematologic/Lymphatic: Reports: No Symptoms Immunologic: Reports: No Symptoms Exam - Exam Exam: See Below - Vital Signs Vital Signs: Last Vital Signs Temp 98.4 F 06/15/19 07:20 Pulse 97 06/15/19 07:20 Resp 17 06/15/19 07:20 BP 134/87 06/15/19 07:20 Pulse Ox 98 06/15/19 07:20 Weight: 50.7 kg - Exam General: Alert, Oriented, Sedated HEENT: Conjunctiva Clear, Mucosa Moist & [place], Pupils Equal Lungs: Clear to Auscultation, Normal Respiratory Effort Cardiovascular: Regular Rate, Regular Rhythm GI/Abdominal Exam: Normal Bowel Sounds, Soft, Tender Extremities: Normal Inspection, Normal Range of Motion, Non-Tender, No Pedal Edema Neuro Extensive - Mental Status: Alert, Oriented x3 Psychiatric: Alert, Normal Affect, Normal Mood - Patient Data Lab Results Last 24 hrs: Laboratory Results - last 24 hr 06/14/19 06/14/19 06/14/19 Range/Units 23:24 23:50 23:50 WBC 9.91 (4.0-11.0) K/uL RBC 4.34 L (4.50-5.90) M/uL Hgb 10.6 L (13.0-17.0) g/dL Hct 34.5 L (38.0-50.0) % MCV 79.5 L (80.0-98.0) fL MCH 24.4 L (27.0-32.0) pg MCHC 30.7 L (31.0-37.0) g/dL RDW Std Deviation 40.9 (28.0-62.0) fl RDW Coeff of Erika 14 (11.0-15.0) % Plt Count 428 H (150-400) K/uL MPV 9.50 (7.40-12.00) fL Neut % (Auto) 86.3 H (48.0-80.0) % Lymph % (Auto) 10.4 L (16.0-40.0) % [place] % (Auto) 3.0 (0.0-15.0) % Eos % (Auto) 0.2 (0.0-7.0) % Baso % (Auto) 0.1 (0.0-1.5) % Neut # (Auto) 8.6 H (1.4-5.7) K/uL Lymph # (Auto) 1.0 (0.6-2.4) K/uL [place] # (Auto) 0.3 (0.0-0.8) K/uL Eos # (Auto) 0.0 (0.0-0.7) K/uL Baso # (Auto) 0.0 (0.0-0.1) K/uL Nucleated RBC % 0.0 /100WBC Nucleated RBCs # 0 K/uL Sodium 137 (136-148) mmol/L Potassium 4.0 (3.5-5.1) mmol/L Chloride 100 (98-107) mmol/L Carbon Dioxide 27.7 (21.0-32.0) mmol/L BUN 9 (7.0-18.0) mg/dL Creatinine 0.8 (0.8-1.3) mg/dL Est Cr Clr Drug Dosing 102.06 mL/min Estimated GFR (MDRD) > 60.0 ml/min Glucose 305 H (74-106) mg/dL POC Glucose 292 H (60-110) mg/dL Calcium 8.9 (8.5-10.1) mg/dL Total Bilirubin 0.2 (0.2-1.0) mg/dL AST 9 L (15-37) IU/L ALT 8 L (14-63) IU/L Alkaline Phosphatase 105 (46-116) U/L Total Protein 8.1 (6.4-8.2) g/dL Albumin 2.4 L (3.4-5.0) g/dL Globulin 5.7 H (2.6-4.0) g/dL Albumin/Globulin Ratio 0.4 L (0.9-1.6) Urine Color Urine Appearance Urine pH (5.0-8.0) Ur Specific [place] (1.001-1.035) Urine Protein (NEGATIVE) mg/dL Urine Glucose (UA) (NEGATIVE) mg/dL Urine Ketones (NEGATIVE) mg/dL Urine Occult Blood (NEGATIVE) Urine Nitrite (NEGATIVE) Urine Bilirubin (NEGATIVE) Urine Urobilinogen (<2.0) EU/dL Ur Leukocyte Esterase (NEGATIVE) Urine RBC (0-2/HPF) Urine WBC (0-5/HPF) Ur Epithelial Cells (NONE-FEW) Amorphous Sediment (NEGATIVE) Urine Bacteria (NEGATIVE) Urine Opiates Screen (NEGATIVE) Ur Oxycodone Screen (NEGATIVE) Urine Methadone Screen (NEGATIVE) Ur Barbiturates Screen (NEGATIVE) Ur Phencyclidine Scrn (NEGATIVE) Ur Amphetamine Screen (NEGATIVE) U Methamphetamines Scrn (NEGATIVE) U Benzodiazepines Scrn (NEGATIVE) U Cocaine Metab Screen (NEGATIVE) U Marijuana (THC) Screen (NEGATIVE) Ketones (NEG) 06/14/19 06/15/19 06/15/19 Range/Units 23:50 02:55 02:55 WBC (4.0-11.0) K/uL RBC (4.50-5.90) M/uL Hgb (13.0-17.0) g/dL Hct (38.0-50.0) % MCV (80.0-98.0) fL MCH (27.0-32.0) pg MCHC (31.0-37.0) g/dL RDW Std Deviation (28.0-62.0) fl RDW Coeff of Erika (11.0-15.0) % Plt Count (150-400) K/uL MPV (7.40-12.00) fL Neut % (Auto) (48.0-80.0) % Lymph % (Auto) (16.0-40.0) % [place] % (Auto) (0.0-15.0) % Eos % (Auto) (0.0-7.0) % Baso % (Auto) (0.0-1.5) % Neut # (Auto) (1.4-5.7) K/uL Lymph # (Auto) (0.6-2.4) K/uL [place] # (Auto) (0.0-0.8) K/uL Eos # (Auto) (0.0-0.7) K/uL Baso # (Auto) (0.0-0.1) K/uL Nucleated RBC % /100WBC Nucleated RBCs # K/uL Sodium (136-148) mmol/L Potassium (3.5-5.1) mmol/L Chloride (98-107) mmol/L Carbon Dioxide (21.0-32.0) mmol/L BUN (7.0-18.0) mg/dL Creatinine (0.8-1.3) mg/dL Est Cr Clr Drug Dosing mL/min Estimated GFR (MDRD) ml/min Glucose (74-106) mg/dL POC Glucose (60-110) mg/dL Calcium (8.5-10.1) mg/dL Total Bilirubin (0.2-1.0) mg/dL AST (15-37) IU/L ALT (14-63) IU/L Alkaline Phosphatase (46-116) U/L Total Protein (6.4-8.2) g/dL Albumin (3.4-5.0) g/dL Globulin (2.6-4.0) g/dL Albumin/Globulin Ratio (0.9-1.6) Urine Color YELLOW Urine Appearance CLOUDY Urine pH 6.0 (5.0-8.0) Ur Specific [place] 1.025 (1.001-1.035) Urine Protein 30 H (NEGATIVE) mg/dL Urine Glucose (UA) >=1000 (NEGATIVE) mg/dL Urine Ketones 40 H (NEGATIVE) mg/dL Urine Occult Blood SMALL H (NEGATIVE) Urine Nitrite NEGATIVE (NEGATIVE) Urine Bilirubin NEGATIVE (NEGATIVE) Urine Urobilinogen 0.2 (<2.0) EU/dL Ur Leukocyte Esterase TRACE H (NEGATIVE) Urine RBC 1-2 (0-2/HPF) Urine WBC 8-10 (0-5/HPF) Ur Epithelial Cells RARE (NONE-FEW) Amorphous Sediment MODERATE (NEGATIVE) Urine Bacteria 2+ H (NEGATIVE) Urine Opiates Screen NEGATIVE (NEGATIVE) Ur Oxycodone Screen NEGATIVE (NEGATIVE) Urine Methadone Screen NEGATIVE (NEGATIVE) Ur Barbiturates Screen NEGATIVE (NEGATIVE) Ur Phencyclidine Scrn NEGATIVE (NEGATIVE) Ur Amphetamine Screen NEGATIVE (NEGATIVE) U Methamphetamines Scrn NEGATIVE (NEGATIVE) U Benzodiazepines Scrn NEGATIVE (NEGATIVE) U Cocaine Metab Screen NEGATIVE (NEGATIVE) U Marijuana (THC) Screen NEGATIVE (NEGATIVE) Ketones NEGATIVE (NEG) 06/15/19 06/15/19 Range/Units 07:29 08:20 WBC (4.0-11.0) K/uL RBC (4.50-5.90) M/uL Hgb (13.0-17.0) g/dL Hct (38.0-50.0) % MCV (80.0-98.0) fL MCH (27.0-32.0) pg MCHC (31.0-37.0) g/dL RDW Std Deviation (28.0-62.0) fl RDW Coeff of Erika (11.0-15.0) % Plt Count (150-400) K/uL MPV (7.40-12.00) fL Neut % (Auto) (48.0-80.0) % Lymph % (Auto) (16.0-40.0) % [place] % (Auto) (0.0-15.0) % Eos % (Auto) (0.0-7.0) % Baso % (Auto) (0.0-1.5) % Neut # (Auto) (1.4-5.7) K/uL Lymph # (Auto) (0.6-2.4) K/uL [place] # (Auto) (0.0-0.8) K/uL Eos # (Auto) (0.0-0.7) K/uL Baso # (Auto) (0.0-0.1) K/uL Nucleated RBC % /100WBC Nucleated RBCs # K/uL Sodium (136-148) mmol/L Potassium (3.5-5.1) mmol/L Chloride (98-107) mmol/L Carbon Dioxide (21.0-32.0) mmol/L BUN (7.0-18.0) mg/dL Creatinine (0.8-1.3) mg/dL Est Cr Clr Drug Dosing mL/min Estimated GFR (MDRD) ml/min Glucose (74-106) mg/dL POC Glucose 291 H 273 H (60-110) mg/dL Calcium (8.5-10.1) mg/dL Total Bilirubin (0.2-1.0) mg/dL AST (15-37) IU/L ALT (14-63) IU/L Alkaline Phosphatase (46-116) U/L Total Protein (6.4-8.2) g/dL Albumin (3.4-5.0) g/dL Globulin (2.6-4.0) g/dL Albumin/Globulin Ratio (0.9-1.6) Urine Color Urine Appearance Urine pH (5.0-8.0) Ur Specific [place] (1.001-1.035) Urine Protein (NEGATIVE) mg/dL Urine Glucose (UA) (NEGATIVE) mg/dL Urine Ketones (NEGATIVE) mg/dL Urine Occult Blood (NEGATIVE) Urine Nitrite (NEGATIVE) Urine Bilirubin (NEGATIVE) Urine Urobilinogen (<2.0) EU/dL Ur Leukocyte Esterase (NEGATIVE) Urine RBC (0-2/HPF) Urine WBC (0-5/HPF) Ur Epithelial Cells (NONE-FEW) Amorphous Sediment (NEGATIVE) Urine Bacteria (NEGATIVE) Urine Opiates Screen (NEGATIVE) Ur Oxycodone Screen (NEGATIVE) Urine Methadone Screen (NEGATIVE) Ur Barbiturates Screen (NEGATIVE) Ur Phencyclidine Scrn (NEGATIVE) Ur Amphetamine Screen (NEGATIVE) U Methamphetamines Scrn (NEGATIVE) U Benzodiazepines Scrn (NEGATIVE) U Cocaine Metab Screen (NEGATIVE) U Marijuana (THC) Screen (NEGATIVE) Ketones (NEG) Result Diagrams: 06/15/19 09:14 06/15/19 09:14 Sepsis Event Note - Evaluation Sepsis Screening Result: No Definite Risk - Focused Exam Vital Signs: Vital Signs Temp Pulse Resp BP BP Pulse Ox 06/15/19 07:20 98.4 F 97 17 134/87 98 06/15/19 06:45 98.4 F 100 17 125/86 96 06/15/19 06:22 99 18 133/90 99 06/15/19 05:55 97.4 F 99 14 124/53 L 100 06/15/19 04:50 102 H 14 125/84 99 06/15/19 03:46 97.1 F 103 H 14 126/86 100 06/15/19 03:34 98.1 F 102 H 14 131/86 100 06/15/19 02:17 103 H 14 129/85 100 06/15/19 01:48 104 H 14 124/90 98 06/15/19 01:14 103 H 18 126/92 H 99 06/14/19 23:20 97.5 F 102 H 18 141/94 H 98 Date Exam was Performed: 06/15/19 Time Exam was Performed: 13:10 - Problem List (1) Abdominal pain SNOMED Code(s): 88383019 ICD Code: R10.9 - UNSPECIFIED ABDOMINAL PAIN Status: Acute Current Visit : Yes (2) Intractable vomiting SNOMED Code(s): 724431299 ICD Code: R11.10 - VOMITING, UNSPECIFIED Status: Acute Current Visit: Yes (3) Diabetic gastroparesis SNOMED Code(s): 333425804 ICD Code: E11.43 - TYPE 2 DIABETES W DIABETIC AUTONOMIC (POLY)NEUROPATHY; K31.84 - GASTROPARESIS Status: Chronic Priority: Medium Current Visit: Yes (4) History of neurogenic bladder SNOMED Code(s): 928881397 ICD Code: Z87.448 - PERSONAL HISTORY OF OTHER DISEASES OF URINARY SYSTEM Status: Chronic Current Visit: No (5) Depression SNOMED Code(s): 60555045 ICD Code: F32.9 - MAJOR DEPRESSIVE DISORDER, SINGLE EPISODE, UNSPECIFIED Status: Chronic Current Visit: No Qualifiers: Depression Type: major depressive disorder Major depression recurrence: unspecified whether recurrent Active/Remission status: in remission of unspecified degree Qualified Code(s): F32.5 - Major depressive disorder, single episode, in full remission (6) Diabetes type 1, uncontrolled SNOMED Code(s): 30626725, 445848136 ICD Code: E10.65 - TYPE 1 DIABETES MELLITUS WITH HYPERGLYCEMIA Status: Chronic Priority: Medium Current Visit: No Qualifiers: Glycemic state: with hyperglycemia Qualified Code(s): E10.65 - Type 1 diabetes mellitus with hyperglycemia (7) Hx of opioid abuse SNOMED Code(s): 444152344 ICD Code: F11.11 - OPIOID ABUSE, IN REMISSION Status: Chronic Current Visit: Yes (8) Noncompliance with medication regimen SNOMED Code(s): 049448829 ICD Code: Z91.14 - PATIENT'S OTHER NONCOMPLIANCE WITH MEDICATION REGIMEN Status: Chronic Current Visit: No Problem List Initiated/Reviewed/Updated: Yes Orders Last 24hrs: Active Orders 24 hr Category Date Time Status Admission Status [Patient Status] [ADT] Stat ADT 06/15/19 06:02 Active Bladder Scan [RC] ONETIME Care 06/15/19 08:51 Ordered Blood Glucose Check, Bedside [RC] TIDMEALS Care 06/15/19 06:27 Active Vital Signs [RC] Q4H Care 06/15/19 06:26 Active NPO Now [Nothing per Oral Now Diet] [DIET] Diet 06/15/19 Breakfast Active BASIC METABOLIC PANEL,BMP [CHEM] Routine Lab 06/15/19 08:48 Ordered CBC WITH AUTO DIFF [HEME] Routine Lab 06/15/19 08:48 Ordered CULTURE URINE [RM] Stat Lab 06/15/19 02:55 Received MAGNESIUM [CHEM] Routine Lab 06/15/19 08:48 Ordered Insulin Aspart [NovoLOG] Med 06/15/19 07:30 Active See Protocol SUBCUT TIDAC Lactated Ringers [Ringers, Lactated] 1,000 ml Med 06/15/19 06:30 Active IV ASDIRECTED Metoclopramide [Reglan] Med 06/15/19 08:00 Active 5 mg IVPUSH Q6H Ondansetron [Zofran] Med 06/15/19 06:27 Active 4 mg IVPUSH Q4H PRN cefTRIAXone [Rocephin in Dextrose,Iso-Osm 1 GM/50 ML] 1 Med 06/15/19 08:00 Active gm Premix Bag 1 bag IV Q24H Medication Orders Lactated Ringer's (Ringers, Lactated) 1,000 mls @ 125 mls/hr IV ASDIRECTED AUGUSTINE Last Admin: 06/15/19 06:58 Dose: 125 mls/hr Ceftriaxone Sodium/Dextrose 1 (gm/ Premix) 50 mls @ 100 mls/hr IV Q24H [facility] Last Admin: 06/15/19 08:35 Dose: 100 mls/hr Insulin Aspart (Novolog) 0 unit SUBCUT TIDAC [facility]; Protocol Last Admin: 06/15/19 07:31 Dose: 9 units Metoclopramide HCl (Reglan) 5 mg IVPUSH Q6H [facility] Last Admin: 06/15/19 08:33 Dose: 5 mg Ondansetron HCl (Zofran) 4 mg IVPUSH Q4H PRN PRN Reason: Nausea Assessment/Plan Comment:: This 23 year old male admitted with abdominal pain and nausea secondary to gastroparesis 1. Gastroparesis: - Will start Reglan 5 mg IV Q6 hrs - Zofran PRN - NPO for now, will monitor - Toradol for pain PRN - Unable to use narcotics due to Suboxone use. 2. UTI: - UC pending - Rocephin 1 gm IV Q24 hours. - Hx neurogenic bladder - Bladder revealed 900 on bladder, urinated and post void residual 300. - Obtain CT of abdomen/pelvis today to evaluate for pyelonephritis and hydronephrosis. - Needs urology consultation regarding neurogenic bladder, he has declined this follow up previously by not showing up to appointments. 3. DM type 1: - Continue Novolog SSI every 6 hours while NPO. 4. Hx opioid abuse - Continue Suboxone. VTE prophylaxis: SCDs and ambulation Dispo: 1-2 days. - Mortality Measure Prognosis:: Good
[2019-06-15 09:38] LABS: BLOOD UREA NITROGEN,BUN 14 mg/dL (7.0-18.0); CHLORIDE,CL 105 mmol/L (98-107); GLUCOSE RANDOM 268 mg/dL (74-106); POTASSIUM,K 3.8 mmol/L (3.5-5.1); SODIUM,NA 139 mmol/L (136-148)
[2019-06-15] MEDS ORDERED: Magnesium Sulfate/Water 2 GM in Premix Bag 1 BAG IV ONE (09:51)
[2019-06-15] MEDS: Pantoprazole 40 MG in Sodium Chloride 0.9% 10 ML IV SCH (09:55)
[2019-06-15] MEDS: Insulin Aspart 100 Units/ML 3 ML Pen SUBCUT SCH ×3 (10:06→22:06)
[2019-06-15] MEDS: Ondansetron 4 MG/2 ML SDV IVPUSH PRN (10:41)
[2019-06-15] MEDS: diphenhydrAMINE 50 MG/ML SDV IVPUSH PRN ×2 (10:53→20:33)
--- NOTE | 2019-06-15 12:57 | CT ---
CT abdomen and pelvis Technique: Multiple axial sections were obtained from above the dome of the diaphragm inferiorly through the pubic symphysis. Intravenous and oral contrast not utilized. Reconstructed sagittal and coronal images were obtained. Comparison: Previous CT abdomen and pelvis study of 02/02/19. Findings: Bladder is diffusely thick walled with complicated fluid being seen within the bladder. Diffuse air is noted circumferentially and uncertain if this is trapped within the bladder periphery or within the bladder wall. Bladder findings are an interval change from previous study. Other findings: The visualized lung bases show nothing acute. Noncontrast appearance of the liver shows no discrete abnormality. Spleen shows no discrete finding. Adrenal glands show no nodule. Kidneys show no hydronephrosis or abnormal calcifications. Gallbladder contains no calcified gallstones. Aorta shows no aneurysm. No retroperitoneal adenopathy is seen. Pancreas not optimally identified. No discrete abnormality appreciated in the area of the pancreas. No pelvic mass or adenopathy is seen. Mild increased stool is seen throughout the colon. Impression: 1. Diffuse bladder wall thickening containing complicated fluid. Diffuse air is noted circumferentially and uncertain if this area is trapped within the bladder periphery or within the bladder wall. These findings are an interval change from previous study. Bladder could be drained (by catheter) and repeat CT study through the pelvis obtained to see if air resolves. 2. No mild increased stool throughout the colon. 3. No additional abnormality is appreciated on noncontrast CT study of the abdomen and pelvis. Diagnostic code #3 This report was dictated in MDT
--- NOTE | 2019-06-15 15:40 | CT ---
CT pelvis Technique: Multiple axial sections were obtained from above the iliac crest inferiorly through the pubic symphysis. Intravenous contrast and oral contrast not utilized. Findings: Study has been performed with Clements catheter in place. Marked bilateral wall thickening is noted. Diffuse air noted within the bladder presumably from the bladder infection. There are small amounts of air bubbles within the bladder wall compatible with emphysematous cystitis. No additional abnormality is definitely appreciated within the pelvis. Impression: 1. Severe bladder wall thickening. Small amount of air within the bladder wall compatible with emphysematous cystitis. Diffuse air within the bladder compatible with diffuse infection. Infection most likely mixed with aerobic and anaerobic bacteria. 2. Clements catheter is noted. Diagnostic code #3 This report was dictated in MDT
[2019-06-15] MEDS: Meropenem Premix 1 GM in Premix Bag 1 BAG IV SCH ×2 (16:33→23:48)
[2019-06-15] MEDS: BUPRENORPHINE HCL PO SCH (17:50)
[2019-06-15] MEDS: NALOXONE HCL PO SCH (17:50)
[2019-06-15] MEDS ORDERED: Insulin Glargine,Human Rec. Analog 100 Units/ML 3 ML Pen SUBCUT SCH (21:00)
[2019-06-15] MEDS ORDERED: Pantoprazole 40 MG Vial IV SCH (21:00)
[2019-06-16] MEDS: Lactated Ringers 1,000 ML IV SCH ×3 (01:26→17:57)
[2019-06-16] MEDS: Metoclopramide 10 MG/2 ML SDV IVPUSH SCH ×4 (01:27→20:13)
[2019-06-16] MEDS: diphenhydrAMINE 50 MG/ML SDV IVPUSH PRN ×2 (01:28→20:17)
[2019-06-16] MEDS: Insulin Aspart 100 Units/ML 3 ML Pen SUBCUT SCH ×4 (04:29→23:18)
[2019-06-16] MEDS: Ondansetron 4 MG/2 ML SDV IVPUSH PRN ×2 (04:37→23:23)
[2019-06-16 06:31] LABS: BLOOD UREA NITROGEN,BUN 12 mg/dL (7.0-18.0); CARBON DIOXIDE,CO2 26.6 mmol/L (21.0-32.0); CHLORIDE,CL 104 mmol/L (98-107); GLUCOSE RANDOM 176 mg/dL (74-106); POTASSIUM,K 3.8 mmol/L (3.5-5.1); SODIUM,NA 138 mmol/L (136-148)
[2019-06-16] MEDS: Meropenem Premix 1 GM in Premix Bag 1 BAG IV SCH ×3 (08:15→23:26)
[2019-06-16] MEDS ORDERED: Bisacodyl 10 MG Supp RECTAL PRN (08:38)
--- NOTE | 2019-06-16 08:50 | PCM.PN ---
- General Info Date of Service: 06/16/19 Admission Dx/Problem (Free Text): Admission Diagnosis/Problem Admission Diagnosis/Problem Gastroparesis due to secondary diabetes Subjective Update: Reports nausea and abdominal pain. The pain is "everywhere". He was resting comfortably and then upon awakening he is moaning and stating he is hurting. Denies chest pain or SOB. No BM. Functional Status: Reports: Ambulating. Denies: Pain Controlled, Tolerating Diet - Review of Systems General: Reports: No Symptoms. Denies: Weakness, Fatigue Cardiovascular: Reports: No Symptoms. Denies: Chest Pain Gastrointestinal: Reports: Abdominal Pain, Constipation, Flatus, Nausea. Denies : Diarrhea, Vomiting Genitourinary: Reports: No Symptoms. Denies: Dysuria, Frequency, Burning Skin: Reports: No Symptoms Neurological: Reports: No Symptoms Psychiatric: Reports: No Symptoms - Patient Data Vitals - Most Recent: Last Vital Signs Temp 98 F 06/16/19 07:10 Pulse 100 06/16/19 07:10 Resp 17 06/16/19 07:10 BP 134/90 06/16/19 07:10 Pulse Ox 98 06/16/19 07:10 Weight - Most Recent: 50.7 kg I&O - Last 24 Hours: Intake & Output 06/15/19 06/16/19 06/16/19 22:59 06:59 14:59 Intake Total 775 1374 Output Total 750 650 Balance 25 724 Lab Results Last 24 Hours: Laboratory Results - last 24 hr 06/15/19 06/15/19 06/15/19 Range/Units 09:14 09:14 11:50 WBC 9.45 (4.0-11.0) K/uL RBC 4.11 L (4.50-5.90) M/uL Hgb 10.0 L (13.0-17.0) g/dL Hct 32.6 L (38.0-50.0) % MCV 79.3 L (80.0-98.0) fL MCH 24.3 L (27.0-32.0) pg MCHC 30.7 L (31.0-37.0) g/dL RDW Std Deviation 40.6 (28.0-62.0) fl RDW Coeff of Erika 14 (11.0-15.0) % Plt Count 447 H (150-400) K/uL MPV 9.10 (7.40-12.00) fL Neut % (Auto) 90.0 H (48.0-80.0) % Lymph % (Auto) 9.2 L (16.0-40.0) % Wilcox % (Auto) 0.8 (0.0-15.0) % Eos % (Auto) 0.0 (0.0-7.0) % Baso % (Auto) 0.0 (0.0-1.5) % Neut # (Auto) 8.5 H (1.4-5.7) K/uL Lymph # (Auto) 0.9 (0.6-2.4) K/uL Wilcox # (Auto) 0.1 (0.0-0.8) K/uL Eos # (Auto) 0.0 (0.0-0.7) K/uL Baso # (Auto) 0.0 (0.0-0.1) K/uL Nucleated RBC % 0.0 /100WBC Nucleated RBCs # 0 K/uL Sodium 139 (136-148) mmol/L Potassium 3.8 (3.5-5.1) mmol/L Chloride 105 (98-107) mmol/L Carbon Dioxide 24.0 (21.0-32.0) mmol/L BUN 14 (7.0-18.0) mg/dL Creatinine 0.7 L (0.8-1.3) mg/dL Est Cr Clr Drug Dosing 119.71 mL/min Estimated GFR (MDRD) > 60.0 ml/min Glucose 268 H (74-106) mg/dL POC Glucose 163 H (60-110) mg/dL Calcium 8.0 L (8.5-10.1) mg/dL Magnesium 1.6 L (1.8-2.4) mg/dL 06/15/19 06/15/19 06/16/19 Range/Units 15:04 22:01 04:26 WBC (4.0-11.0) K/uL RBC (4.50-5.90) M/uL Hgb (13.0-17.0) g/dL Hct (38.0-50.0) % MCV (80.0-98.0) fL MCH (27.0-32.0) pg MCHC (31.0-37.0) g/dL RDW Std Deviation (28.0-62.0) fl RDW Coeff of Erika (11.0-15.0) % Plt Count (150-400) K/uL MPV (7.40-12.00) fL Neut % (Auto) (48.0-80.0) % Lymph % (Auto) (16.0-40.0) % Wilcox % (Auto) (0.0-15.0) % Eos % (Auto) (0.0-7.0) % Baso % (Auto) (0.0-1.5) % Neut # (Auto) (1.4-5.7) K/uL Lymph # (Auto) (0.6-2.4) K/uL Wilcox # (Auto) (0.0-0.8) K/uL Eos # (Auto) (0.0-0.7) K/uL Baso # (Auto) (0.0-0.1) K/uL Nucleated RBC % /100WBC Nucleated RBCs # K/uL Sodium (136-148) mmol/L Potassium (3.5-5.1) mmol/L Chloride (98-107) mmol/L Carbon Dioxide (21.0-32.0) mmol/L BUN (7.0-18.0) mg/dL Creatinine (0.8-1.3) mg/dL Est Cr Clr Drug Dosing mL/min Estimated GFR (MDRD) ml/min Glucose (74-106) mg/dL POC Glucose 123 H 214 H 181 H (60-110) mg/dL Calcium (8.5-10.1) mg/dL Magnesium (1.8-2.4) mg/dL 06/16/19 06/16/19 06/16/19 Range/Units 05:59 05:59 07:06 WBC 9.02 (4.0-11.0) K/uL RBC 3.87 L (4.50-5.90) M/uL Hgb 9.5 L (13.0-17.0) g/dL Hct 31.1 L (38.0-50.0) % MCV 80.4 (80.0-98.0) fL MCH 24.5 L (27.0-32.0) pg MCHC 30.5 L (31.0-37.0) g/dL RDW Std Deviation 42.6 (28.0-62.0) fl RDW Coeff of Erika 15 (11.0-15.0) % Plt Count 435 H (150-400) K/uL MPV 8.70 (7.40-12.00) fL Neut % (Auto) 80.4 H (48.0-80.0) % Lymph % (Auto) 13.2 L (16.0-40.0) % Wilcox % (Auto) 6.2 (0.0-15.0) % Eos % (Auto) 0.1 (0.0-7.0) % Baso % (Auto) 0.1 (0.0-1.5) % Neut # (Auto) 7.3 H (1.4-5.7) K/uL Lymph # (Auto) 1.2 (0.6-2.4) K/uL Wilcox # (Auto) 0.6 (0.0-0.8) K/uL Eos # (Auto) 0.0 (0.0-0.7) K/uL Baso # (Auto) 0.0 (0.0-0.1) K/uL Nucleated RBC % 0.0 /100WBC Nucleated RBCs # 0 K/uL Sodium 138 (136-148) mmol/L Potassium 3.8 (3.5-5.1) mmol/L Chloride 104 (98-107) mmol/L Carbon Dioxide 26.6 (21.0-32.0) mmol/L BUN 12 (7.0-18.0) mg/dL Creatinine 0.6 L (0.8-1.3) mg/dL Est Cr Clr Drug Dosing 139.66 mL/min Estimated GFR (MDRD) > 60.0 ml/min Glucose 176 H (74-106) mg/dL POC Glucose 185 H (60-110) mg/dL Calcium 8.1 L (8.5-10.1) mg/dL Magnesium 1.9 (1.8-2.4) mg/dL Med Orders - Current: Current Medications Bisacodyl (Dulcolax) 10 mg RECTAL ONETIME ONE Stop: 06/16/19 08:39 Bisacodyl (Dulcolax) 10 mg RECTAL BID PRN PRN Reason: Constipation Diphenhydramine HCl (Benadryl) 25 mg IVPUSH Q6H PRN PRN Reason: Itching Last Admin: 06/16/19 01:28 Dose: 25 mg Lactated Ringer's (Ringers, Lactated) 1,000 mls @ 125 mls/hr IV ASDIRECTED [facility] Last Admin: 06/16/19 01:26 Dose: 125 mls/hr Pantoprazole Sodium 40 mg/ (Sodium Chloride) 10 mls @ 300 mls/hr IV Q24H [facility] Last Admin: 06/15/19 09:55 Dose: 300 mls/hr Meropenem/Sodium Chloride 1 gm (/ Premix) 50 mls @ 100 mls/hr IV Q8H [facility] Last Admin: 06/16/19 08:15 Dose: 100 mls/hr Insulin Aspart (Novolog) 0 unit SUBCUT Q6H [facility]; Protocol Last Admin: 06/16/19 04:29 Dose: 3 units Metoclopramide HCl (Reglan) 5 mg IVPUSH Q6H [facility] Last Admin: 06/16/19 08:16 Dose: 5 mg Ondansetron HCl (Zofran) 4 mg IVPUSH Q4H PRN PRN Reason: Nausea Last Admin: 06/16/19 04:37 Dose: 4 mg Buprenorphine Hcl/Naloxone Hcl [ Zubsolv 5.7-1.4 Mg Tablet 1 each PO DAILY [facility] Last Admin: 06/15/19 17:50 Dose: 1 each Discontinued Medications Diphenhydramine HCl (Benadryl) 50 mg IVPUSH ONETIME ONE Stop: 06/15/19 01:42 Last Admin: 06/15/19 01:42 Dose: 50 mg Diphenhydramine HCl (Benadryl) Confirm Administered Dose 50 mg .ROUTE .STK-MED ONE Stop: 06/15/19 01:41 Last Admin: 06/15/19 01:47 Dose: Not Given Famotidine (Pepcid) 40 mg IVPUSH ONETIME ONE Stop: 06/15/19 03:37 Last Admin: 06/15/19 03:47 Dose: 40 mg Hydroxyzine HCl (Atarax) 25 mg PO ONETIME ONE Stop: 06/15/19 01:14 Last Admin: 06/15/19 01:47 Dose: Not Given Sodium Chloride (Normal Saline) 1,000 mls @ 999 mls/hr IV .Bolus ONE Stop: 06/15/19 00:59 Last Admin: 06/15/19 00:00 Dose: 999 mls/hr Sodium Chloride (Normal Saline) 1,000 mls @ 999 mls/hr IV .BOLUS ONE Stop: 06/15/19 02:11 Last Admin: 06/15/19 01:31 Dose: 999 mls/hr Pantoprazole Sodium 40 mg/ (Sodium Chloride) 10 mls @ 300 mls/hr IV NOW ONE Stop: 06/15/19 01:15 Last Admin: 06/15/19 01:32 Dose: 300 mls/hr Sodium Chloride (Normal Saline) 1,000 mls @ 999 mls/hr IV .BOLUS ONE Stop: 06/15/19 04:37 Last Admin: 06/15/19 03:48 Dose: 999 mls/hr Sodium Chloride (Normal Saline) 1,000 mls @ 999 mls/hr IV .BOLUS ONE Stop: 06/15/19 04:38 Last Admin: 06/15/19 03:49 Dose: Not Given Ceftriaxone Sodium/Dextrose 1 (gm/ Premix) 50 mls @ 100 mls/hr IV Q24H [facility] Last Admin: 06/15/19 08:35 Dose: 100 mls/hr Magnesium Sulfate 2 gm/ Premix 50 mls @ 50 mls/hr IV ONETIME ONE Stop: 06/15/19 10:50 Last Admin: 06/15/19 10:14 Dose: 50 mls/hr Insulin Aspart (Novolog) 0 unit SUBCUT TIDAC [facility]; Protocol Last Admin: 06/15/19 07:31 Dose: 9 units Insulin Glargine (Lantus Solostar) 20 units SUBCUT BEDTIME [facility] Ketorolac Tromethamine (Toradol) 30 mg IVPUSH ONETIME ONE Stop: 06/15/19 01:13 Last Admin: 06/15/19 01:31 Dose: 30 mg Lorazepam (Ativan) 1 mg IVPUSH ONETIME ONE Stop: 06/15/19 04:43 Last Admin: 06/15/19 04:51 Dose: 1 mg Methylprednisolone Sodium Succinate (Solu-Medrol) 60 mg IV NOW ONE Stop: 06/15/19 01:31 Last Admin: 06/15/19 01:42 Dose: 60 mg Morphine Sulfate (Morphine) 2 mg IVPUSH Q4H PRN PRN Reason: Abdominal Pain Ondansetron HCl (Zofran) 4 mg IVPUSH ONETIME ONE Stop: 06/15/19 01:12 Last Admin: 06/15/19 01:31 Dose: 4 mg Ondansetron HCl (Zofran) 4 mg IVPUSH ONETIME ONE Stop: 06/15/19 03:37 Last Admin: 06/15/19 03:47 Dose: 4 mg Ondansetron HCl (Zofran) 4 mg IVPUSH ONETIME ONE Stop: 06/15/19 03:37 Last Admin: 06/15/19 03:48 Dose: Not Given - Exam Quality Assessment: Urine Catheter General: Alert, Oriented, Cooperative, No Acute Distress Lungs: Clear to Auscultation, Normal Respiratory Effort Cardiovascular: Regular Rate, Regular Rhythm GI/Abdominal Exam: Normal Bowel Sounds, Soft, Non-Tender Extremities: Normal Inspection, Normal Range of Motion, Non-Tender, No Pedal Edema Neurological: No New Focal Deficit Psy/Mental Status: Alert, Normal Affect, Normal Mood Sepsis Event Note - Evaluation Sepsis Screening Result: No Definite Risk - Focused Exam Vital Signs: Vital Signs Temp Pulse Resp BP Pulse Ox 06/16/19 07:10 98 F 100 17 134/90 98 06/16/19 04:00 100.2 F 105 H 12 134/89 98 06/15/19 23:45 98.4 F 80 16 97/55 L 97 Date Exam was Performed: 06/16/19 Time Exam was Performed: 10:48 - Problem List & Annotations (1) Abdominal pain SNOMED Code(s): 88213519 Code(s): R10.9 - UNSPECIFIED ABDOMINAL PAIN Status: Acute Current Visit: Yes (2) Intractable vomiting SNOMED Code(s): 184214309 Code(s): R11.10 - VOMITING, UNSPECIFIED Status: Acute Current Visit: Yes (3) Diabetic gastroparesis SNOMED Code(s): 629626887 Code(s): E11.43 - TYPE 2 DIABETES W DIABETIC AUTONOMIC (POLY)NEUROPATHY; K31.84 - GASTROPARESIS Status: Chronic Priority: Medium Current Visit: Yes (4) History of neurogenic bladder SNOMED Code(s): 556441745 Code(s): Z87.448 - PERSONAL HISTORY OF OTHER DISEASES OF URINARY SYSTEM Status: Chronic Current Visit: No (5) Depression SNOMED Code(s): 08869896 Code(s): F32.9 - MAJOR DEPRESSIVE DISORDER, SINGLE EPISODE, UNSPECIFIED Status: Chronic Current Visit: No Qualifiers: Depression Type: major depressive disorder Major depression recurrence: unspecified whether recurrent Active/Remission status: in remission of unspecified degree Qualified Code(s): F32.5 - Major depressive disorder, single episode, in full remission (6) Diabetes type 1, uncontrolled SNOMED Code(s): 79107760, 972159975 Code(s): E10.65 - TYPE 1 DIABETES MELLITUS WITH HYPERGLYCEMIA Status: Chronic Priority: Medium Current Visit: No Qualifiers: Glycemic state: with hyperglycemia Qualified Code(s): E10.65 - Type 1 diabetes mellitus with hyperglycemia (7) Hx of opioid abuse SNOMED Code(s): 846993005 Code(s): F11.11 - OPIOID ABUSE, IN REMISSION Status: Chronic Current Visit: Yes (8) Noncompliance with medication regimen SNOMED Code(s): 190163417 Code(s): Z91.14 - PATIENT'S OTHER NONCOMPLIANCE WITH MEDICATION REGIMEN Status: Chronic Current Visit: No - Problem List Review Problem List Initiated/Reviewed/Updated: Yes - My Orders Last 24 Hours: My Active Orders 06/15/19 08:00 Metoclopramide [Reglan] 5 mg IVPUSH Q6H 06/15/19 08:51 Bladder Scan [RC] ONETIME 06/15/19 09:09 Oxygen Therapy [RC] PRN Up With Assistance [RC] ASDIRECTED VTE/DVT Education [RC] PER UNIT ROUTINE Consult to Diabetic Nurse Specialist [CONS] Routine Resuscitation Status Routine 06/15/19 09:10 Intake and Output [RC] Q12H 06/15/19 09:15 Insulin Aspart [NovoLOG] See Protocol SUBCUT Q6H Pantoprazole [ProTONIX IV] 40 mg Sodium Chloride 0.9% [Normal Saline] 10 ml IV Q24H 06/15/19 10:37 diphenhydrAMINE [Benadryl] 25 mg IVPUSH Q6H PRN 06/15/19 13:10 Urinary Catheter Assessment [RC] Q4H 06/15/19 16:00 Meropenem Premix [Meropenem] 1 gm Premix Bag 1 bag IV Q8H 06/15/19 17:00 Patient's Own Medication [Ptom] 1 each PO DAILY 06/16/19 08:38 bisacodyL [Dulcolax] 10 mg RECTAL BID PRN bisacodyL [Dulcolax] 10 mg RECTAL ONETIME ONE 06/16/19 13:15 Edge Catheter Insertion [Insert Urinary Catheter] [OM.PC] Q24H 06/17/19 05:11 BASIC METABOLIC PANEL,BMP [CHEM] AM CBC WITH AUTO DIFF [HEME] AM MG [MAGNESIUM] [CHEM] AM 06/18/19 05:11 BASIC METABOLIC PANEL,BMP [CHEM] AM CBC WITH AUTO DIFF [HEME] AM MG [MAGNESIUM] [CHEM] AM - Plan Plan:: This 23 year old male admitted with abdominal pain and nausea secondary to gastroparesis 1. Gastroparesis: - Continue Reglan 5 mg IV Q6 hrs - Zofran PRN - NPO for now, asked if he wanted to try CL and he feels he is not ready. - Toradol for pain PRN - Unable to use narcotics due to Suboxone use. - Has stool noted in colon on CT. Start Dulcolax suppository today. 2. UTI: - UC pending - Continue Meropenem 1 gm Q8hr due to hx of MDR UC. - Hx neurogenic bladder - CT revealed emphysematous cystitis and severe bladder wall thickening. I spoke with Dr Rodriguez regarding CT findings, recommended abx for UTI as well as continuing edge catheter upon discharge and he would see him as outpatient. - Discussed snf need of edge with Alexandr, not much conversation from him, he shook his head when asked if he understands. 3. DM type 1: - Continue Novolog SSI every 6 hours while NPO. - Hold Lantus as he is not eating. 4. Hx opioid abuse - Continue Suboxone. VTE prophylaxis: SCDs and ambulation Dispo: Will make inpatient today, as he will likely need more than 2 midnights
[2019-06-16] MEDS: Ketorolac 15 MG/ML SDV IVPUSH PRN ×3 (09:50→23:11)
[2019-06-16] MEDS: Bisacodyl 10 MG Supp RECTAL ONE ×2 (09:51→09:57)
[2019-06-16] MEDS: BUPRENORPHINE HCL PO SCH (09:55)
[2019-06-16] MEDS: NALOXONE HCL PO SCH (09:55)
[2019-06-16] MEDS: Pantoprazole 40 MG in Sodium Chloride 0.9% 10 ML IV SCH (09:57)
[2019-06-16] MEDS: Insulin Glargine,Human Rec. Analog 100 Units/ML 3 ML Pen SUBCUT SCH (23:21)
[2019-06-16] MEDS ORDERED: HYDROmorphone 1 MG/ML Syringe IVPUSH ONE (23:51)
[2019-06-17] MEDS ORDERED: LORazepam 2 MG/ML SDV IVPUSH ONE (00:01)
[2019-06-17] MEDS: Metoclopramide 10 MG/2 ML SDV IVPUSH SCH ×4 (01:09→22:04)
[2019-06-17] MEDS: Lactated Ringers 1,000 ML IV SCH ×3 (02:05→22:15)
[2019-06-17] MEDS: Insulin Aspart 100 Units/ML 3 ML Pen SUBCUT SCH ×4 (03:22→18:37)
[2019-06-17 05:41] LABS: BLOOD UREA NITROGEN,BUN 19 mg/dL (7.0-18.0); CARBON DIOXIDE,CO2 26.2 mmol/L (21.0-32.0); CHLORIDE,CL 105 mmol/L (98-107); GLUCOSE RANDOM 170 mg/dL (74-106); POTASSIUM,K 3.9 mmol/L (3.5-5.1); SODIUM,NA 138 mmol/L (136-148)
[2019-06-17] MEDS ORDERED: Magnesium Sulfate/Water 2 GM in Premix Bag 1 BAG IV ONE (07:51)
[2019-06-17] MEDS: cefTRIAXone 1 GM in Premix Bag 1 BAG IV SCH (08:42)
[2019-06-17] MEDS ORDERED: Docusate Sodium/Sennosides Tab PO SCH (09:00)
--- NOTE | 2019-06-17 09:01 | PCM.PN ---
- General Info Date of Service: 06/17/19 Admission Dx/Problem (Free Text): Admission Diagnosis/Problem Admission Diagnosis/Problem Gastroparesis due to secondary diabetes Subjective Update: Continues to have pain and nausea, but it is improving. reports nausea with ice chips overnight. No chest pain. Functional Status: Reports: Ambulating. Denies: Tolerating Diet - Review of Systems General: Reports: No Symptoms. Denies: Weakness, Fatigue Pulmonary: Reports: No Symptoms. Denies: Shortness of Breath Cardiovascular: Reports: No Symptoms. Denies: Chest Pain Gastrointestinal: Reports: Abdominal Pain, Nausea Genitourinary: Reports: No Symptoms. Denies: Dysuria, Frequency Musculoskeletal: Reports: No Symptoms Skin: Reports: No Symptoms Neurological: Reports: No Symptoms Psychiatric: Reports: No Symptoms - Patient Data Vitals - Most Recent: Last Vital Signs Temp 98.6 F 06/17/19 04:00 Pulse 83 06/17/19 04:00 Resp 14 06/17/19 04:00 BP 112/74 06/17/19 04:00 Pulse Ox 99 06/17/19 04:00 Weight - Most Recent: 50.7 kg I&O - Last 24 Hours: Intake & Output 06/16/19 06/17/19 06/17/19 22:59 06:59 14:59 Intake Total 1618 1095 Output Total 1350 1100 Balance 268 -5 Lab Results Last 24 Hours: Laboratory Results - last 24 hr 06/16/19 06/16/19 06/16/19 Range/Units 09:49 14:49 20:51 WBC (4.0-11.0) K/uL RBC (4.50-5.90) M/uL Hgb (13.0-17.0) g/dL Hct (38.0-50.0) % MCV (80.0-98.0) fL MCH (27.0-32.0) pg MCHC (31.0-37.0) g/dL RDW Std Deviation (28.0-62.0) fl RDW Coeff of Erika (11.0-15.0) % Plt Count (150-400) K/uL MPV (7.40-12.00) fL Neut % (Auto) (48.0-80.0) % Lymph % (Auto) (16.0-40.0) % Wood[place] % (Auto) (0.0-15.0) % Eos % (Auto) (0.0-7.0) % Baso % (Auto) (0.0-1.5) % Neut # (Auto) (1.4-5.7) K/uL Lymph # (Auto) (0.6-2.4) K/uL Woodford # (Auto) (0.0-0.8) K/uL Eos # (Auto) (0.0-0.7) K/uL Baso # (Auto) (0.0-0.1) K/uL Nucleated RBC % /100WBC Nucleated RBCs # K/uL Sodium (136-148) mmol/L Potassium (3.5-5.1) mmol/L Chloride (98-107) mmol/L Carbon Dioxide (21.0-32.0) mmol/L BUN (7.0-18.0) mg/dL Creatinine (0.8-1.3) mg/dL Est Cr Clr Drug Dosing mL/min Estimated GFR (MDRD) ml/min Glucose (74-106) mg/dL POC Glucose 233 H 256 H 213 H (60-110) mg/dL Calcium (8.5-10.1) mg/dL Magnesium (1.8-2.4) mg/dL 06/16/19 06/17/19 06/17/19 Range/Units 23:10 03:19 05:08 WBC 9.12 (4.0-11.0) K/uL RBC 3.70 L (4.50-5.90) M/uL Hgb 8.9 L (13.0-17.0) g/dL Hct 29.2 L (38.0-50.0) % MCV 78.9 L (80.0-98.0) fL MCH 24.1 L (27.0-32.0) pg MCHC 30.5 L (31.0-37.0) g/dL RDW Std Deviation 40.9 (28.0-62.0) fl RDW Coeff of Erika 14 (11.0-15.0) % Plt Count 451 H (150-400) K/uL MPV 8.50 (7.40-12.00) fL Neut % (Auto) 76.6 (48.0-80.0) % Lymph % (Auto) 19.3 (16.0-40.0) % Wood[place] % (Auto) 3.9 (0.0-15.0) % Eos % (Auto) 0.1 (0.0-7.0) % Baso % (Auto) 0.1 (0.0-1.5) % Neut # (Auto) 7.0 H (1.4-5.7) K/uL Lymph # (Auto) 1.8 (0.6-2.4) K/uL Woodford # (Auto) 0.4 (0.0-0.8) K/uL Eos # (Auto) 0.0 (0.0-0.7) K/uL Baso # (Auto) 0.0 (0.0-0.1) K/uL Nucleated RBC % 0.0 /100WBC Nucleated RBCs # 0 K/uL Sodium (136-148) mmol/L Potassium (3.5-5.1) mmol/L Chloride (98-107) mmol/L Carbon Dioxide (21.0-32.0) mmol/L BUN (7.0-18.0) mg/dL Creatinine (0.8-1.3) mg/dL Est Cr Clr Drug Dosing mL/min Estimated GFR (MDRD) ml/min Glucose (74-106) mg/dL POC Glucose 257 H 178 H (60-110) mg/dL Calcium (8.5-10.1) mg/dL Magnesium (1.8-2.4) mg/dL 06/17/19 Range/Units 05:08 WBC (4.0-11.0) K/uL RBC (4.50-5.90) M/uL Hgb (13.0-17.0) g/dL Hct (38.0-50.0) % MCV (80.0-98.0) fL MCH (27.0-32.0) pg MCHC (31.0-37.0) g/dL RDW Std Deviation (28.0-62.0) fl RDW Coeff of Erika (11.0-15.0) % Plt Count (150-400) K/uL MPV (7.40-12.00) fL Neut % (Auto) (48.0-80.0) % Lymph % (Auto) (16.0-40.0) % [place] % (Auto) (0.0-15.0) % Eos % (Auto) (0.0-7.0) % Baso % (Auto) (0.0-1.5) % Neut # (Auto) (1.4-5.7) K/uL Lymph # (Auto) (0.6-2.4) K/uL Woodford # (Auto) (0.0-0.8) K/uL Eos # (Auto) (0.0-0.7) K/uL Baso # (Auto) (0.0-0.1) K/uL Nucleated RBC % /100WBC Nucleated RBCs # K/uL Sodium 138 (136-148) mmol/L Potassium 3.9 (3.5-5.1) mmol/L Chloride 105 (98-107) mmol/L Carbon Dioxide 26.2 (21.0-32.0) mmol/L BUN 19 H (7.0-18.0) mg/dL Creatinine 0.7 L (0.8-1.3) mg/dL Est Cr Clr Drug Dosing 119.71 mL/min Estimated GFR (MDRD) > 60.0 ml/min Glucose 170 H (74-106) mg/dL POC Glucose (60-110) mg/dL Calcium 8.0 L (8.5-10.1) mg/dL Magnesium 1.7 L (1.8-2.4) mg/dL Donaldo Results Last 24 Hours: Microbiology 06/15/19 02:55 Urine Culture - Final Urine, Clean Catch Escherichia Coli Normal Urogenital Marilyn Med Orders - Current: Current Medications Bisacodyl (Dulcolax) 10 mg RECTAL BID PRN PRN Reason: Constipation Diphenhydramine HCl (Benadryl) 25 mg IVPUSH Q6H PRN PRN Reason: Itching Last Admin: 06/16/19 20:17 Dose: 25 mg Lactated Ringer's (Ringers, Lactated) 1,000 mls @ 125 mls/hr IV ASDIRECTED AUGUSTINE Last Admin: 06/17/19 02:05 Dose: 125 mls/hr Pantoprazole Sodium 40 mg/ (Sodium Chloride) 10 mls @ 300 mls/hr IV Q24H [facility] Last Admin: 06/16/19 09:57 Dose: 300 mls/hr Ceftriaxone Sodium/Dextrose 1 (gm/ Premix) 50 mls @ 100 mls/hr IV Q24H [facility] Last Admin: 06/17/19 08:42 Dose: 100 mls/hr Insulin Aspart (Novolog) 0 unit SUBCUT Q6H [facility]; Protocol Last Admin: 06/17/19 03:22 Dose: 3 units Insulin Glargine (Lantus Solostar) 20 units SUBCUT BEDTIME [facility] Last Admin: 06/16/19 23:21 Dose: 20 units Ketorolac Tromethamine (Toradol) 15 mg IVPUSH Q6H PRN PRN Reason: Pain Last Admin: 06/16/19 23:11 Dose: 15 mg Metoclopramide HCl (Reglan) 5 mg IVPUSH Q6H [facility] Last Admin: 06/17/19 08:37 Dose: 5 mg Ondansetron HCl (Zofran) 4 mg IVPUSH Q4H PRN PRN Reason: Nausea Last Admin: 06/16/19 23:23 Dose: 4 mg Buprenorphine Hcl/Naloxone Hcl [ Zubsolv 5.7-1.4 Mg Tablet 1 each PO DAILY [facility] Last Admin: 06/16/19 09:55 Dose: Not Given Senna/Docusate Sodium (Senokot-S) 1 each PO DAILY [facility] Discontinued Medications Bisacodyl (Dulcolax) 10 mg RECTAL ONETIME ONE Stop: 06/16/19 08:39 Last Admin: 06/16/19 09:57 Dose: Not Given Diphenhydramine HCl (Benadryl) 50 mg IVPUSH ONETIME ONE Stop: 06/15/19 01:42 Last Admin: 06/15/19 01:42 Dose: 50 mg Diphenhydramine HCl (Benadryl) Confirm Administered Dose 50 mg .ROUTE .STK-MED ONE Stop: 06/15/19 01:41 Last Admin: 06/15/19 01:47 Dose: Not Given Famotidine (Pepcid) 40 mg IVPUSH ONETIME ONE Stop: 06/15/19 03:37 Last Admin: 06/15/19 03:47 Dose: 40 mg Hydromorphone HCl (Dilaudid) 1 mg IVPUSH ONETIME ONE Stop: 06/16/19 23:52 Last Admin: 06/17/19 01:06 Dose: 1 mg Hydroxyzine HCl (Atarax) 25 mg PO ONETIME ONE Stop: 06/15/19 01:14 Last Admin: 06/15/19 01:47 Dose: Not Given Sodium Chloride (Normal Saline) 1,000 mls @ 999 mls/hr IV .Bolus ONE Stop: 06/15/19 00:59 Last Admin: 06/15/19 00:00 Dose: 999 mls/hr Sodium Chloride (Normal Saline) 1,000 mls @ 999 mls/hr IV .BOLUS ONE Stop: 06/15/19 02:11 Last Admin: 06/15/19 01:31 Dose: 999 mls/hr Pantoprazole Sodium 40 mg/ (Sodium Chloride) 10 mls @ 300 mls/hr IV NOW ONE Stop: 06/15/19 01:15 Last Admin: 06/15/19 01:32 Dose: 300 mls/hr Sodium Chloride (Normal Saline) 1,000 mls @ 999 mls/hr IV .BOLUS ONE Stop: 06/15/19 04:37 Last Admin: 06/15/19 03:48 Dose: 999 mls/hr Sodium Chloride (Normal Saline) 1,000 mls @ 999 mls/hr IV .BOLUS ONE Stop: 06/15/19 04:38 Last Admin: 06/15/19 03:49 Dose: Not Given Ceftriaxone Sodium/Dextrose 1 (gm/ Premix) 50 mls @ 100 mls/hr IV Q24H [facility] Last Admin: 06/15/19 08:35 Dose: 100 mls/hr Magnesium Sulfate 2 gm/ Premix 50 mls @ 50 mls/hr IV ONETIME ONE Stop: 06/15/19 10:50 Last Admin: 06/15/19 10:14 Dose: 50 mls/hr Meropenem/Sodium Chloride 1 gm (/ Premix) 50 mls @ 100 mls/hr IV Q8H [facility] Last Admin: 06/16/19 23:26 Dose: 100 mls/hr Magnesium Sulfate 2 gm/ Premix 50 mls @ 50 mls/hr IV ONETIME ONE Stop: 06/17/19 08:50 Insulin Aspart (Novolog) 0 unit SUBCUT TIDAC [facility]; Protocol Last Admin: 06/15/19 07:31 Dose: 9 units Insulin Glargine (Lantus Solostar) 20 units SUBCUT BEDTIME [facility] Ketorolac Tromethamine (Toradol) 30 mg IVPUSH ONETIME ONE Stop: 06/15/19 01:13 Last Admin: 06/15/19 01:31 Dose: 30 mg Lorazepam (Ativan) 1 mg IVPUSH ONETIME ONE Stop: 06/15/19 04:43 Last Admin: 06/15/19 04:51 Dose: 1 mg Lorazepam (Ativan) 1 mg IVPUSH ONETIME ONE Stop: 06/17/19 00:02 Last Admin: 06/17/19 01:07 Dose: 1 mg Methylprednisolone Sodium Succinate (Solu-Medrol) 60 mg IV NOW ONE Stop: 06/15/19 01:31 Last Admin: 06/15/19 01:42 Dose: 60 mg Morphine Sulfate (Morphine) 2 mg IVPUSH Q4H PRN PRN Reason: Abdominal Pain Ondansetron HCl (Zofran) 4 mg IVPUSH ONETIME ONE Stop: 06/15/19 01:12 Last Admin: 06/15/19 01:31 Dose: 4 mg Ondansetron HCl (Zofran) 4 mg IVPUSH ONETIME ONE Stop: 06/15/19 03:37 Last Admin: 06/15/19 03:47 Dose: 4 mg Ondansetron HCl (Zofran) 4 mg IVPUSH ONETIME ONE Stop: 06/15/19 03:37 Last Admin: 06/15/19 03:48 Dose: Not Given - Exam General: Alert, Oriented, Cooperative, No Acute Distress Lungs: Clear to Auscultation, Normal Respiratory Effort Cardiovascular: Regular Rate, Regular Rhythm GI/Abdominal Exam: Normal Bowel Sounds, Soft, Tender Extremities: Normal Inspection, Normal Range of Motion, Non-Tender, No Pedal Edema Neurological: No New Focal Deficit Psy/Mental Status: Alert, Normal Affect, Normal Mood Sepsis Event Note - Evaluation Sepsis Screening Result: No Definite Risk - Focused Exam Vital Signs: Vital Signs Temp Pulse Resp BP Pulse Ox 06/17/19 04:00 98.6 F 83 14 112/74 99 06/17/19 00:00 99.8 F 109 H 16 121/80 98 Date Exam was Performed: 06/17/19 Time Exam was Performed: 09:53 - Problem List & Annotations (1) Abdominal pain SNOMED Code(s): 75562029 Code(s): R10.9 - UNSPECIFIED ABDOMINAL PAIN Status: Acute Current Visit: Yes (2) Intractable vomiting SNOMED Code(s): 373952555 Code(s): R11.10 - VOMITING, UNSPECIFIED Status: Acute Current Visit: Yes (3) Diabetic gastroparesis SNOMED Code(s): 759079249 Code(s): E11.43 - TYPE 2 DIABETES W DIABETIC AUTONOMIC (POLY)NEUROPATHY; K31.84 - GASTROPARESIS Status: Chronic Priority: Medium Current Visit: Yes (4) History of neurogenic bladder SNOMED Code(s): 338038699 Code(s): Z87.448 - PERSONAL HISTORY OF OTHER DISEASES OF URINARY SYSTEM Status: Chronic Current Visit: No (5) Depression SNOMED Code(s): 37476096 Code(s): F32.9 - MAJOR DEPRESSIVE DISORDER, SINGLE EPISODE, UNSPECIFIED Status: Chronic Current Visit: No Qualifiers: Depression Type: major depressive disorder Major depression recurrence: unspecified whether recurrent Active/Remission status: in remission of unspecified degree Qualified Code(s): F32.5 - Major depressive disorder, single episode, in full remission (6) Diabetes type 1, uncontrolled SNOMED Code(s): 90422895, 046094399 Code(s): E10.65 - TYPE 1 DIABETES MELLITUS WITH HYPERGLYCEMIA Status: Chronic Priority: Medium Current Visit: No Qualifiers: Glycemic state: with hyperglycemia Qualified Code(s): E10.65 - Type 1 diabetes mellitus with hyperglycemia (7) Hx of opioid abuse SNOMED Code(s): 330274556 Code(s): F11.11 - OPIOID ABUSE, IN REMISSION Status: Chronic Current Visit: Yes (8) Noncompliance with medication regimen SNOMED Code(s): 799463290 Code(s): Z91.14 - PATIENT'S OTHER NONCOMPLIANCE WITH MEDICATION REGIMEN Status: Chronic Current Visit: No - Problem List Review Problem List Initiated/Reviewed/Updated: Yes - My Orders Last 24 Hours: My Active Orders 06/16/19 08:38 bisacodyL [Dulcolax] 10 mg RECTAL BID PRN 06/16/19 08:42 Ketorolac [Toradol] 15 mg IVPUSH Q6H PRN 06/16/19 09:52 Patient Status [ADT] Stat 06/16/19 13:15 Clements Catheter Insertion [Insert Urinary Catheter] [OM.PC] Q24H 06/16/19 21:00 Insulin Glarg,Human.Rec.Analog [LantUS Solostar] 20 units SUBCUT BEDTIME 06/17/19 08:00 cefTRIAXone [Rocephin in Dextrose,Iso-Osm 1 GM/50 ML] 1 gm Premix Bag 1 bag IV Q24H 06/17/19 09:00 Docusate Sodium/Sennosides [Senokot-S] 1 each PO DAILY 06/18/19 05:11 BASIC METABOLIC PANEL,BMP [CHEM] AM CBC WITH AUTO DIFF [HEME] AM MG [MAGNESIUM] [CHEM] AM - Plan Plan:: This 23 year old male admitted with abdominal pain and nausea secondary to gastroparesis 1. Gastroparesis: - Continue Reglan 5 mg IV Q6 hrs - Zofran PRN - Trial CL diet - Toradol for pain PRN - Unable to use narcotics due to Suboxone use. - Has stool noted in colon on CT. Refused dulcolax yesterday, doesn't want this. Counseled on the need to have BM due to CT findings of increased stool. Start Senna PO. 2. UTI: - UC E coli resistant to fluoroquinolones, bactrim. NOT ESBL - Restart Rocephin. DC Meropenem. Likely DC home on Keflex for 10-14 days due to severity of disease - Hx neurogenic bladder - Clements to remain in on discharge, per Dr Rodriguez. He needs to see Dr Rodriguez on outpatient basis. 3. DM type 1: - Continue Novolog SSI every 6 hours while NPO. - Lantus 20 at bedtime 4. Hx opioid abuse - Continue Suboxone. VTE prophylaxis: SCDs and ambulation Dispo: 1-2 days
[2019-06-17] MEDS: Pantoprazole 40 MG in Sodium Chloride 0.9% 10 ML IV SCH (09:29)
[2019-06-17] MEDS: NALOXONE HCL PO SCH ×2 (09:37→09:54)
[2019-06-17] MEDS: BUPRENORPHINE HCL PO SCH ×2 (09:37→09:54)
[2019-06-17] MEDS: diphenhydrAMINE 50 MG/ML SDV IVPUSH PRN ×3 (09:57→22:19)
[2019-06-17] MEDS: Ondansetron 4 MG/2 ML SDV IVPUSH PRN ×2 (13:47→16:28)
[2019-06-17] MEDS: Ketorolac 15 MG/ML SDV IVPUSH PRN (22:07)
[2019-06-17] MEDS: Insulin Glargine,Human Rec. Analog 100 Units/ML 3 ML Pen SUBCUT SCH (22:14)
[2019-06-18] MEDS: Insulin Aspart 100 Units/ML 3 ML Pen SUBCUT SCH ×4 (00:48→18:10)
[2019-06-18] MEDS: Metoclopramide 10 MG/2 ML SDV IVPUSH SCH ×4 (03:36→20:39)
[2019-06-18] MEDS: diphenhydrAMINE 50 MG/ML SDV IVPUSH PRN ×3 (03:54→18:11)
[2019-06-18 06:29] LABS: BLOOD UREA NITROGEN,BUN 17 mg/dL (7.0-18.0); CARBON DIOXIDE,CO2 24.7 mmol/L (21.0-32.0); CHLORIDE,CL 101 mmol/L (98-107); GLUCOSE RANDOM 215 mg/dL (74-106); POTASSIUM,K 3.8 mmol/L (3.5-5.1); SODIUM,NA 135 mmol/L (136-148)
[2019-06-18] MEDS: Ondansetron 4 MG/2 ML SDV IVPUSH PRN ×3 (07:33→21:26)
[2019-06-18] MEDS: cefTRIAXone 1 GM in Premix Bag 1 BAG IV SCH (08:08)
[2019-06-18] MEDS ORDERED: HYDROmorphone 2 MG/ML Syringe IVPUSH PRN (09:11)
[2019-06-18] MEDS: Pantoprazole 40 MG in Sodium Chloride 0.9% 10 ML IV SCH (09:17)
[2019-06-18] MEDS: Ketorolac 15 MG/ML SDV IVPUSH PRN ×2 (09:22→15:46)
[2019-06-18] MEDS: Lactated Ringers 1,000 ML IV SCH ×2 (09:24→17:46)
[2019-06-18] MEDS: HYDROmorphone 1 MG/ML Syringe IVPUSH PRN ×2 (09:48→21:29)
[2019-06-18] MEDS ORDERED: Calcium Carbonate 500 MG Tab.Chew PO PRN (10:50)
--- NOTE | 2019-06-18 10:53 | PCM.PN ---
- General Info Date of Service: 06/18/19 Admission Dx/Problem (Free Text): Admission Diagnosis/Problem Admission Diagnosis/Problem Gastroparesis due to secondary diabetes Subjective Update: Having more nausea and vomited this morning. Increased pain in abdomen. Functional Status: Reports: Ambulating. Denies: Pain Controlled, Tolerating Diet - Review of Systems General: Reports: Fatigue, Malaise Pulmonary: Reports: No Symptoms. Denies: Shortness of Breath Cardiovascular: Reports: No Symptoms. Denies: Chest Pain Gastrointestinal: Reports: Abdominal Pain, Nausea, Vomiting. Denies: Constipation (had BMs overnight) Musculoskeletal: Reports: No Symptoms Skin: Reports: No Symptoms Neurological: Reports: No Symptoms Psychiatric: Reports: No Symptoms - Patient Data Vitals - Most Recent: Last Vital Signs Temp 97.7 F 06/18/19 07:39 Pulse 86 06/18/19 07:39 Resp 18 06/18/19 07:39 BP 150/90 H 06/18/19 07:39 Pulse Ox 100 06/18/19 07:39 Weight - Most Recent: 50.7 kg I&O - Last 24 Hours: Intake & Output 06/17/19 06/18/19 06/18/19 22:59 06:59 14:59 Intake Total 100 2136 Output Total 1000 950 Balance -900 1186 Lab Results Last 24 Hours: Laboratory Results - last 24 hr 06/17/19 06/17/19 06/17/19 Range/Units 13:33 18:29 22:13 WBC (4.0-11.0) K/uL RBC (4.50-5.90) M/uL Hgb (13.0-17.0) g/dL Hct (38.0-50.0) % MCV (80.0-98.0) fL MCH (27.0-32.0) pg MCHC (31.0-37.0) g/dL RDW Std Deviation (28.0-62.0) fl RDW Coeff of Erika (11.0-15.0) % Plt Count (150-400) K/uL MPV (7.40-12.00) fL Neut % (Auto) (48.0-80.0) % Lymph % (Auto) (16.0-40.0) % [place] % (Auto) (0.0-15.0) % Eos % (Auto) (0.0-7.0) % Baso % (Auto) (0.0-1.5) % Neut # (Auto) (1.4-5.7) K/uL Lymph # (Auto) (0.6-2.4) K/uL [place] # (Auto) (0.0-0.8) K/uL Eos # (Auto) (0.0-0.7) K/uL Baso # (Auto) (0.0-0.1) K/uL Nucleated RBC % /100WBC Nucleated RBCs # K/uL Sodium (136-148) mmol/L Potassium (3.5-5.1) mmol/L Chloride (98-107) mmol/L Carbon Dioxide (21.0-32.0) mmol/L BUN (7.0-18.0) mg/dL Creatinine (0.8-1.3) mg/dL Est Cr Clr Drug Dosing mL/min Estimated GFR (MDRD) ml/min Glucose (74-106) mg/dL POC Glucose 199 H 246 H 271 H (60-110) mg/dL Calcium (8.5-10.1) mg/dL Magnesium (1.8-2.4) mg/dL 06/18/19 06/18/19 06/18/19 Range/Units 00:46 05:55 05:55 WBC 6.65 (4.0-11.0) K/uL RBC 4.18 L (4.50-5.90) M/uL Hgb 9.9 L (13.0-17.0) g/dL Hct 32.5 L (38.0-50.0) % MCV 77.8 L (80.0-98.0) fL MCH 23.7 L (27.0-32.0) pg MCHC 30.5 L (31.0-37.0) g/dL RDW Std Deviation 40.1 (28.0-62.0) fl RDW Coeff of Erika 14 (11.0-15.0) % Plt Count 492 H (150-400) K/uL MPV 8.50 (7.40-12.00) fL Neut % (Auto) 61.4 (48.0-80.0) % Lymph % (Auto) 31.9 (16.0-40.0) % [place] % (Auto) 6.2 (0.0-15.0) % Eos % (Auto) 0.3 (0.0-7.0) % Baso % (Auto) 0.2 (0.0-1.5) % Neut # (Auto) 4.1 (1.4-5.7) K/uL Lymph # (Auto) 2.1 (0.6-2.4) K/uL [place] # (Auto) 0.4 (0.0-0.8) K/uL Eos # (Auto) 0.0 (0.0-0.7) K/uL Baso # (Auto) 0.0 (0.0-0.1) K/uL Nucleated RBC % 0.0 /100WBC Nucleated RBCs # 0 K/uL Sodium 135 L (136-148) mmol/L Potassium 3.8 (3.5-5.1) mmol/L Chloride 101 (98-107) mmol/L Carbon Dioxide 24.7 (21.0-32.0) mmol/L BUN 17 (7.0-18.0) mg/dL Creatinine 0.8 (0.8-1.3) mg/dL Est Cr Clr Drug Dosing 104.74 mL/min Estimated GFR (MDRD) > 60.0 ml/min Glucose 215 H (74-106) mg/dL POC Glucose 234 H (60-110) mg/dL Calcium 8.2 L (8.5-10.1) mg/dL Magnesium 1.8 (1.8-2.4) mg/dL Donaldo Results Last 24 Hours: Microbiology 06/15/19 02:55 Urine Culture - Final Urine, Clean Catch Escherichia Coli Normal Urogenital Marilyn Med Orders - Current: Current Medications Bisacodyl (Dulcolax) 10 mg RECTAL BID PRN PRN Reason: Constipation Last Admin: 06/17/19 16:32 Dose: 10 mg Diphenhydramine HCl (Benadryl) 25 mg IVPUSH Q6H PRN PRN Reason: Itching Last Admin: 06/18/19 03:54 Dose: 25 mg Hydromorphone HCl (Dilaudid) 0.25 mg IVPUSH Q6H PRN PRN Reason: Pain Last Admin: 06/18/19 09:48 Dose: 0.25 mg Lactated Ringer's (Ringers, Lactated) 1,000 mls @ 125 mls/hr IV ASDIRECTED [facility] Last Admin: 06/18/19 09:24 Dose: 125 mls/hr Pantoprazole Sodium 40 mg/ (Sodium Chloride) 10 mls @ 300 mls/hr IV Q24H [facility] Last Admin: 06/18/19 09:17 Dose: 300 mls/hr Ceftriaxone Sodium/Dextrose 1 (gm/ Premix) 50 mls @ 100 mls/hr IV Q24H [facility] Last Admin: 06/18/19 08:08 Dose: 100 mls/hr Insulin Aspart (Novolog) 0 unit SUBCUT Q6H [facility]; Protocol Last Admin: 06/18/19 06:00 Dose: 3 units Insulin Glargine (Lantus Solostar) 20 units SUBCUT BEDTIME [facility] Last Admin: 06/17/19 22:14 Dose: 20 units Ketorolac Tromethamine (Toradol) 15 mg IVPUSH Q6H PRN PRN Reason: Pain Last Admin: 06/18/19 09:22 Dose: 15 mg Metoclopramide HCl (Reglan) 10 mg IVPUSH Q6H [facility] Ondansetron HCl (Zofran) 4 mg IVPUSH Q4H PRN PRN Reason: Nausea Last Admin: 06/18/19 07:33 Dose: 4 mg Buprenorphine Hcl/Naloxone Hcl [ Zubsolv 5.7-1.4 Mg Tablet 1 each PO DAILY [facility] Last Admin: 06/17/19 09:54 Dose: 1 each Senna/Docusate Sodium (Senna Plus) 1 tab PO DAILY [facility] Last Admin: 06/17/19 09:54 Dose: 1 tab Discontinued Medications Bisacodyl (Dulcolax) 10 mg RECTAL ONETIME ONE Stop: 06/16/19 08:39 Last Admin: 06/16/19 09:57 Dose: Not Given Diphenhydramine HCl (Benadryl) 50 mg IVPUSH ONETIME ONE Stop: 06/15/19 01:42 Last Admin: 06/15/19 01:42 Dose: 50 mg Diphenhydramine HCl (Benadryl) Confirm Administered Dose 50 mg .ROUTE .STK-MED ONE Stop: 06/15/19 01:41 Last Admin: 06/15/19 01:47 Dose: Not Given Famotidine (Pepcid) 40 mg IVPUSH ONETIME ONE Stop: 06/15/19 03:37 Last Admin: 06/15/19 03:47 Dose: 40 mg Hydromorphone HCl (Dilaudid) 1 mg IVPUSH ONETIME ONE Stop: 06/16/19 23:52 Last Admin: 06/17/19 01:06 Dose: 1 mg Hydromorphone HCl (Dilaudid) 0.25 mg IVPUSH Q6H PRN PRN Reason: Pain Hydroxyzine HCl (Atarax) 25 mg PO ONETIME ONE Stop: 06/15/19 01:14 Last Admin: 06/15/19 01:47 Dose: Not Given Sodium Chloride (Normal Saline) 1,000 mls @ 999 mls/hr IV .Bolus ONE Stop: 06/15/19 00:59 Last Admin: 06/15/19 00:00 Dose: 999 mls/hr Sodium Chloride (Normal Saline) 1,000 mls @ 999 mls/hr IV .BOLUS ONE Stop: 06/15/19 02:11 Last Admin: 06/15/19 01:31 Dose: 999 mls/hr Pantoprazole Sodium 40 mg/ (Sodium Chloride) 10 mls @ 300 mls/hr IV NOW ONE Stop: 06/15/19 01:15 Last Admin: 06/15/19 01:32 Dose: 300 mls/hr Sodium Chloride (Normal Saline) 1,000 mls @ 999 mls/hr IV .BOLUS ONE Stop: 06/15/19 04:37 Last Admin: 06/15/19 03:48 Dose: 999 mls/hr Sodium Chloride (Normal Saline) 1,000 mls @ 999 mls/hr IV .BOLUS ONE Stop: 06/15/19 04:38 Last Admin: 06/15/19 03:49 Dose: Not Given Ceftriaxone Sodium/Dextrose 1 (gm/ Premix) 50 mls @ 100 mls/hr IV Q24H [facility] Last Admin: 06/15/19 08:35 Dose: 100 mls/hr Magnesium Sulfate 2 gm/ Premix 50 mls @ 50 mls/hr IV ONETIME ONE Stop: 06/15/19 10:50 Last Admin: 06/15/19 10:14 Dose: 50 mls/hr Meropenem/Sodium Chloride 1 gm (/ Premix) 50 mls @ 100 mls/hr IV Q8H [facility] Last Admin: 06/16/19 23:26 Dose: 100 mls/hr Magnesium Sulfate 2 gm/ Premix 50 mls @ 50 mls/hr IV ONETIME ONE Stop: 06/17/19 08:50 Last Admin: 06/17/19 09:39 Dose: 50 mls/hr Insulin Aspart (Novolog) 0 unit SUBCUT TIDAC [facility]; Protocol Last Admin: 06/15/19 07:31 Dose: 9 units Insulin Aspart (Novolog) 0 unit SUBCUT Q6H [facility]; Protocol Last Admin: 06/17/19 13:46 Dose: 3 units Insulin Glargine (Lantus Solostar) 20 units SUBCUT BEDTIME [facility] Ketorolac Tromethamine (Toradol) 30 mg IVPUSH ONETIME ONE Stop: 06/15/19 01:13 Last Admin: 06/15/19 01:31 Dose: 30 mg Ketorolac Tromethamine (Toradol) 15 mg IVPUSH Q6H PRN PRN Reason: Pain Last Admin: 06/17/19 22:07 Dose: 15 mg Lorazepam (Ativan) 1 mg IVPUSH ONETIME ONE Stop: 06/15/19 04:43 Last Admin: 06/15/19 04:51 Dose: 1 mg Lorazepam (Ativan) 1 mg IVPUSH ONETIME ONE Stop: 06/17/19 00:02 Last Admin: 06/17/19 01:07 Dose: 1 mg Methylprednisolone Sodium Succinate (Solu-Medrol) 60 mg IV NOW ONE Stop: 06/15/19 01:31 Last Admin: 06/15/19 01:42 Dose: 60 mg Metoclopramide HCl (Reglan) 5 mg IVPUSH Q6H [facility] Last Admin: 06/18/19 08:07 Dose: 5 mg Morphine Sulfate (Morphine) 2 mg IVPUSH Q4H PRN PRN Reason: Abdominal Pain Ondansetron HCl (Zofran) 4 mg IVPUSH ONETIME ONE Stop: 06/15/19 01:12 Last Admin: 06/15/19 01:31 Dose: 4 mg Ondansetron HCl (Zofran) 4 mg IVPUSH ONETIME ONE Stop: 06/15/19 03:37 Last Admin: 06/15/19 03:47 Dose: 4 mg Ondansetron HCl (Zofran) 4 mg IVPUSH ONETIME ONE Stop: 06/15/19 03:37 Last Admin: 06/15/19 03:48 Dose: Not Given Senna/Docusate Sodium (Senokot-S) 1 each PO DAILY [facility] Last Admin: 06/17/19 10:32 Dose: Not Given - Exam General: Alert, Oriented, Cooperative, Mild Distress (pain) Lungs: Clear to Auscultation, Normal Respiratory Effort Cardiovascular: Regular Rate, Regular Rhythm GI/Abdominal Exam: Normal Bowel Sounds, Soft, Tender. No: Distended Extremities: Normal Inspection, Normal Range of Motion, Non-Tender, No Pedal Edema Psy/Mental Status: Alert, Normal Affect, Normal Mood Sepsis Event Note - Evaluation Sepsis Screening Result: No Definite Risk - Focused Exam Vital Signs: Vital Signs Temp Pulse Resp BP BP Pulse Ox 06/18/19 07:39 97.7 F 86 18 150/90 H 100 06/18/19 04:00 97.9 F 91 16 129/88 99 06/17/19 23:00 99.3 F 89 12 113/75 97 Date Exam was Performed: 06/18/19 Time Exam was Performed: 10:47 - Problem List & Annotations (1) Abdominal pain SNOMED Code(s): 30376656 Code(s): R10.9 - UNSPECIFIED ABDOMINAL PAIN Status: Acute Current Visit: Yes (2) Intractable vomiting SNOMED Code(s): 589123003 Code(s): R11.10 - VOMITING, UNSPECIFIED Status: Acute Current Visit: Yes (3) Diabetic gastroparesis SNOMED Code(s): 022875539 Code(s): E11.43 - TYPE 2 DIABETES W DIABETIC AUTONOMIC (POLY)NEUROPATHY; K31.84 - GASTROPARESIS Status: Chronic Priority: Medium Current Visit: Yes (4) History of neurogenic bladder SNOMED Code(s): 074100564 Code(s): Z87.448 - PERSONAL HISTORY OF OTHER DISEASES OF URINARY SYSTEM Status: Chronic Current Visit: No (5) Depression SNOMED Code(s): 15130726 Code(s): F32.9 - MAJOR DEPRESSIVE DISORDER, SINGLE EPISODE, UNSPECIFIED Status: Chronic Current Visit: No Qualifiers: Depression Type: major depressive disorder Major depression recurrence: unspecified whether recurrent Active/Remission status: in remission of unspecified degree Qualified Code(s): F32.5 - Major depressive disorder, single episode, in full remission (6) Diabetes type 1, uncontrolled SNOMED Code(s): 59627898, 129577264 Code(s): E10.65 - TYPE 1 DIABETES MELLITUS WITH HYPERGLYCEMIA Status: Chronic Priority: Medium Current Visit: No Qualifiers: Glycemic state: with hyperglycemia Qualified Code(s): E10.65 - Type 1 diabetes mellitus with hyperglycemia (7) Hx of opioid abuse SNOMED Code(s): 562080028 Code(s): F11.11 - OPIOID ABUSE, IN REMISSION Status: Chronic Current Visit: Yes (8) Noncompliance with medication regimen SNOMED Code(s): 763249972 Code(s): Z91.14 - PATIENT'S OTHER NONCOMPLIANCE WITH MEDICATION REGIMEN Status: Chronic Current Visit: No - Problem List Review Problem List Initiated/Reviewed/Updated: Yes - My Orders Last 24 Hours: My Active Orders 06/17/19 18:00 Insulin Aspart [NovoLOG] See Protocol SUBCUT Q6H 06/17/19 Lunch Clear Liquid Diet [DIET] 06/18/19 08:25 Ketorolac [Toradol] 15 mg IVPUSH Q6H PRN 06/18/19 09:39 HYDROmorphone [Dilaudid] 0.25 mg IVPUSH Q6H PRN 06/18/19 14:00 Metoclopramide [Reglan] 10 mg IVPUSH Q6H - Plan Plan:: This 23 year old male admitted with abdominal pain and nausea secondary to gastroparesis 1. Gastroparesis: - Increase Reglan to 10 mg IV Q6 hrs - Zofran PRN - back to NPO - Toradol for pain PRN, will add small dose of Dilaudid infrequently - Had BMs overnight - Arrange outpatient GI follow up, has never seen GI. 2. UTI: - UC E coli resistant to fluoroquinolones, bactrim. NOT ESBL - Continue ROcephin Rocephin. Likely DC home on Keflex for 10-14 days due to severity of disease - Hx neurogenic bladder - Clements to remain in on discharge, per Dr Rodriguez. He needs to see Dr Rodriguez on outpatient basis. 3. DM type 1: - Continue Novolog SSI every 6 hours while NPO. - Lantus 20 at bedtime 4. Hx opioid abuse - Continue Suboxone. VTE prophylaxis: SCDs and ambulation Dispo: 1-2 days
[2019-06-18] MEDS: BUPRENORPHINE HCL PO SCH (13:20)
[2019-06-18] MEDS: NALOXONE HCL PO SCH (13:20)
[2019-06-18] MEDS: Insulin Glargine,Human Rec. Analog 100 Units/ML 3 ML Pen SUBCUT SCH (20:44)
[2019-06-18] MEDS: LORazepam 2 MG/ML SDV IVPUSH PRN (23:11)
[2019-06-19] MEDS: Insulin Aspart 100 Units/ML 3 ML Pen SUBCUT SCH ×4 (00:09→18:23)
[2019-06-19] MEDS: diphenhydrAMINE 50 MG/ML SDV IVPUSH PRN ×3 (00:10→21:04)
[2019-06-19] MEDS: Metoclopramide 10 MG/2 ML SDV IVPUSH SCH ×4 (02:24→20:14)
[2019-06-19] MEDS: Lactated Ringers 1,000 ML IV SCH (03:19)
[2019-06-19] MEDS: Dextrose 5%-Lactated Ringers 1,000 ML IV SCH (05:55)
[2019-06-19 07:13] LABS: BLOOD UREA NITROGEN,BUN 8 mg/dL (7.0-18.0); CARBON DIOXIDE,CO2 28.2 mmol/L (21.0-32.0); CHLORIDE,CL 102 mmol/L (98-107); GLUCOSE RANDOM 78 mg/dL (74-106); SODIUM,NA 138 mmol/L (136-148)
[2019-06-19] MEDS: cefTRIAXone 1 GM in Premix Bag 1 BAG IV SCH (08:23)
[2019-06-19] MEDS ORDERED: Potassium Chloride Riders 40 MEQ in Premix Bag 1 BAG IV ONE (08:39)
[2019-06-19] MEDS ORDERED: Magnesium Sulfate/Water 2 GM in Premix Bag 1 BAG IV ONE (08:39)
--- NOTE | 2019-06-19 08:44 | PCM.PN ---
- General Info Date of Service: 06/19/19 Subjective Update: The patient reports he is still too nauseous to try eating. This morning, blood sugar was 61, patient was alert, refused orange juice to raise level, was started on D5W. Repeat sugar was 78. - Review of Systems General: Reports: No Symptoms HEENT: Reports: No Symptoms Pulmonary: Reports: No Symptoms Cardiovascular: Reports: No Symptoms Gastrointestinal: Reports: Abdominal Pain, Nausea Genitourinary: Reports: No Symptoms Musculoskeletal: Reports: No Symptoms Skin: Reports: No Symptoms Neurological: Reports: No Symptoms Psychiatric: Reports: No Symptoms - Patient Data Vitals - Most Recent: Last Vital Signs Temp 97.7 F 06/19/19 07:30 Pulse 81 06/19/19 07:30 Resp 16 06/19/19 07:30 BP 117/81 06/19/19 07:30 Pulse Ox 99 06/19/19 07:30 Weight - Most Recent: 50.7 kg I&O - Last 24 Hours: Intake & Output 06/18/19 06/19/19 06/19/19 22:59 06:59 14:59 Intake Total 820 1548 Output Total 1600 1250 Balance -780 298 Lab Results Last 24 Hours: Laboratory Results - last 24 hr 06/18/19 06/18/19 06/18/19 Range/Units 05:58 11:47 18:01 WBC (4.0-11.0) K/uL RBC (4.50-5.90) M/uL Hgb (13.0-17.0) g/dL Hct (38.0-50.0) % MCV (80.0-98.0) fL MCH (27.0-32.0) pg MCHC (31.0-37.0) g/dL RDW Std Deviation (28.0-62.0) fl RDW Coeff of Erika (11.0-15.0) % Plt Count (150-400) K/uL MPV (7.40-12.00) fL Neut % (Auto) (48.0-80.0) % Lymph % (Auto) (16.0-40.0) % [place] % (Auto) (0.0-15.0) % Eos % (Auto) (0.0-7.0) % Baso % (Auto) (0.0-1.5) % Neut # (Auto) (1.4-5.7) K/uL Lymph # (Auto) (0.6-2.4) K/uL [place] # (Auto) (0.0-0.8) K/uL Eos # (Auto) (0.0-0.7) K/uL Baso # (Auto) (0.0-0.1) K/uL Nucleated RBC % /100WBC Nucleated RBCs # K/uL Sodium (136-148) mmol/L Potassium (3.5-5.1) mmol/L Chloride (98-107) mmol/L Carbon Dioxide (21.0-32.0) mmol/L BUN (7.0-18.0) mg/dL Creatinine (0.8-1.3) mg/dL Est Cr Clr Drug Dosing mL/min Estimated GFR (MDRD) ml/min Glucose (74-106) mg/dL POC Glucose 198 H 116 H 136 H (60-110) mg/dL Calcium (8.5-10.1) mg/dL Magnesium (1.8-2.4) mg/dL 06/18/19 06/19/19 06/19/19 Range/Units 20:43 00:08 05:21 WBC (4.0-11.0) K/uL RBC (4.50-5.90) M/uL Hgb (13.0-17.0) g/dL Hct (38.0-50.0) % MCV (80.0-98.0) fL MCH (27.0-32.0) pg MCHC (31.0-37.0) g/dL RDW Std Deviation (28.0-62.0) fl RDW Coeff of Erika (11.0-15.0) % Plt Count (150-400) K/uL MPV (7.40-12.00) fL Neut % (Auto) (48.0-80.0) % Lymph % (Auto) (16.0-40.0) % [place] % (Auto) (0.0-15.0) % Eos % (Auto) (0.0-7.0) % Baso % (Auto) (0.0-1.5) % Neut # (Auto) (1.4-5.7) K/uL Lymph # (Auto) (0.6-2.4) K/uL [place] # (Auto) (0.0-0.8) K/uL Eos # (Auto) (0.0-0.7) K/uL Baso # (Auto) (0.0-0.1) K/uL Nucleated RBC % /100WBC Nucleated RBCs # K/uL Sodium (136-148) mmol/L Potassium (3.5-5.1) mmol/L Chloride (98-107) mmol/L Carbon Dioxide (21.0-32.0) mmol/L BUN (7.0-18.0) mg/dL Creatinine (0.8-1.3) mg/dL Est Cr Clr Drug Dosing mL/min Estimated GFR (MDRD) ml/min Glucose (74-106) mg/dL POC Glucose 122 H 117 H 61 (60-110) mg/dL Calcium (8.5-10.1) mg/dL Magnesium (1.8-2.4) mg/dL 06/19/19 06/19/19 06/19/19 Range/Units 06:30 06:30 07:31 WBC 6.03 (4.0-11.0) K/uL RBC 4.04 L (4.50-5.90) M/uL Hgb 9.7 L (13.0-17.0) g/dL Hct 31.2 L (38.0-50.0) % MCV 77.2 L (80.0-98.0) fL MCH 24.0 L (27.0-32.0) pg MCHC 31.1 (31.0-37.0) g/dL RDW Std Deviation 39.3 (28.0-62.0) fl RDW Coeff of Erika 14 (11.0-15.0) % Plt Count 511 H (150-400) K/uL MPV 8.30 (7.40-12.00) fL Neut % (Auto) 71.7 (48.0-80.0) % Lymph % (Auto) 21.4 (16.0-40.0) % [place] % (Auto) 6.6 (0.0-15.0) % Eos % (Auto) 0.3 (0.0-7.0) % Baso % (Auto) 0.0 (0.0-1.5) % Neut # (Auto) 4.3 (1.4-5.7) K/uL Lymph # (Auto) 1.3 (0.6-2.4) K/uL [place] # (Auto) 0.4 (0.0-0.8) K/uL Eos # (Auto) 0.0 (0.0-0.7) K/uL Baso # (Auto) 0.0 (0.0-0.1) K/uL Nucleated RBC % 0.0 /100WBC Nucleated RBCs # 0 K/uL Sodium 138 (136-148) mmol/L Potassium 3.0 L (3.5-5.1) mmol/L Chloride 102 (98-107) mmol/L Carbon Dioxide 28.2 (21.0-32.0) mmol/L BUN 8 (7.0-18.0) mg/dL Creatinine 0.7 L (0.8-1.3) mg/dL Est Cr Clr Drug Dosing 119.71 mL/min Estimated GFR (MDRD) > 60.0 ml/min Glucose 78 (74-106) mg/dL POC Glucose 78 (60-110) mg/dL Calcium 7.9 L (8.5-10.1) mg/dL Magnesium 1.6 L (1.8-2.4) mg/dL Med Orders - Current: Current Medications Bisacodyl (Dulcolax) 10 mg RECTAL BID PRN PRN Reason: Constipation Last Admin: 06/17/19 16:32 Dose: 10 mg Calcium Carbonate/Glycine (Tums) 1,000 mg PO Q2HR PRN PRN Reason: Indigestion Last Admin: 06/18/19 18:10 Dose: 1,000 mg Diphenhydramine HCl (Benadryl) 25 mg IVPUSH Q6H PRN PRN Reason: Itching Last Admin: 06/19/19 00:10 Dose: 25 mg Hydromorphone HCl (Dilaudid) 0.25 mg IVPUSH Q6H PRN PRN Reason: Pain Last Admin: 06/18/19 21:29 Dose: 0.25 mg Pantoprazole Sodium 40 mg/ (Sodium Chloride) 10 mls @ 300 mls/hr IV Q24H [facility] Last Admin: 06/18/19 09:17 Dose: 300 mls/hr Ceftriaxone Sodium/Dextrose 1 (gm/ Premix) 50 mls @ 100 mls/hr IV Q24H [facility] Last Admin: 06/19/19 08:23 Dose: 100 mls/hr Dextrose/Lactated Ringer's (Dextrose 5%-Lactated Ringers) 1,000 mls @ 125 mls/ hr IV ASDIRECTED [facility] Last Admin: 06/19/19 05:55 Dose: 125 mls/hr Magnesium Sulfate 2 gm/ Premix 50 mls @ 50 mls/hr IV ONETIME ONE Stop: 06/19/19 09:38 Potassium Chloride 40 meq/ (Premix) 100 mls @ 25 mls/hr IV ONETIME ONE Stop: 06/19/19 12:38 Insulin Aspart (Novolog) 0 unit SUBCUT Q6H [facility]; Protocol Last Admin: 06/19/19 05:22 Dose: Not Given Insulin Glargine (Lantus Solostar) 20 units SUBCUT BEDTIME [facility] Last Admin: 06/18/19 20:44 Dose: 20 units Ketorolac Tromethamine (Toradol) 15 mg IVPUSH Q6H PRN PRN Reason: Pain Last Admin: 06/18/19 15:46 Dose: 15 mg Lorazepam (Ativan) 0.5 mg IVPUSH Q4H PRN PRN Reason: Anxiety Last Admin: 06/18/19 23:11 Dose: 0.5 mg Metoclopramide HCl (Reglan) 10 mg IVPUSH Q6H [facility] Last Admin: 06/19/19 08:16 Dose: 10 mg Ondansetron HCl (Zofran) 4 mg IVPUSH Q4H PRN PRN Reason: Nausea Last Admin: 06/18/19 21:26 Dose: 4 mg Buprenorphine Hcl/Naloxone Hcl [ Zubsolv 5.7-1.4 Mg Tablet 1 each PO DAILY [facility] Last Admin: 06/18/19 13:20 Dose: Not Given Senna/Docusate Sodium (Senna Plus) 1 tab PO DAILY [facility] Last Admin: 06/19/19 08:26 Dose: Not Given Discontinued Medications Bisacodyl (Dulcolax) 10 mg RECTAL ONETIME ONE Stop: 06/16/19 08:39 Last Admin: 06/16/19 09:57 Dose: Not Given Diphenhydramine HCl (Benadryl) 50 mg IVPUSH ONETIME ONE Stop: 06/15/19 01:42 Last Admin: 06/15/19 01:42 Dose: 50 mg Diphenhydramine HCl (Benadryl) Confirm Administered Dose 50 mg .ROUTE .STK-MED ONE Stop: 06/15/19 01:41 Last Admin: 06/15/19 01:47 Dose: Not Given Famotidine (Pepcid) 40 mg IVPUSH ONETIME ONE Stop: 06/15/19 03:37 Last Admin: 06/15/19 03:47 Dose: 40 mg Hydromorphone HCl (Dilaudid) 1 mg IVPUSH ONETIME ONE Stop: 06/16/19 23:52 Last Admin: 06/17/19 01:06 Dose: 1 mg Hydromorphone HCl (Dilaudid) 0.25 mg IVPUSH Q6H PRN PRN Reason: Pain Hydroxyzine HCl (Atarax) 25 mg PO ONETIME ONE Stop: 06/15/19 01:14 Last Admin: 06/15/19 01:47 Dose: Not Given Sodium Chloride (Normal Saline) 1,000 mls @ 999 mls/hr IV .Bolus ONE Stop: 06/15/19 00:59 Last Admin: 06/15/19 00:00 Dose: 999 mls/hr Sodium Chloride (Normal Saline) 1,000 mls @ 999 mls/hr IV .BOLUS ONE Stop: 06/15/19 02:11 Last Admin: 06/15/19 01:31 Dose: 999 mls/hr Pantoprazole Sodium 40 mg/ (Sodium Chloride) 10 mls @ 300 mls/hr IV NOW ONE Stop: 06/15/19 01:15 Last Admin: 06/15/19 01:32 Dose: 300 mls/hr Sodium Chloride (Normal Saline) 1,000 mls @ 999 mls/hr IV .BOLUS ONE Stop: 06/15/19 04:37 Last Admin: 06/15/19 03:48 Dose: 999 mls/hr Sodium Chloride (Normal Saline) 1,000 mls @ 999 mls/hr IV .BOLUS ONE Stop: 06/15/19 04:38 Last Admin: 06/15/19 03:49 Dose: Not Given Lactated Ringer's (Ringers, Lactated) 1,000 mls @ 125 mls/hr IV ASDIRECTED [facility] Last Admin: 06/19/19 03:19 Dose: 125 mls/hr Ceftriaxone Sodium/Dextrose 1 (gm/ Premix) 50 mls @ 100 mls/hr IV Q24H [facility] Last Admin: 06/15/19 08:35 Dose: 100 mls/hr Magnesium Sulfate 2 gm/ Premix 50 mls @ 50 mls/hr IV ONETIME ONE Stop: 06/15/19 10:50 Last Admin: 06/15/19 10:14 Dose: 50 mls/hr Meropenem/Sodium Chloride 1 gm (/ Premix) 50 mls @ 100 mls/hr IV Q8H [facility] Last Admin: 06/16/19 23:26 Dose: 100 mls/hr Magnesium Sulfate 2 gm/ Premix 50 mls @ 50 mls/hr IV ONETIME ONE Stop: 06/17/19 08:50 Last Admin: 06/17/19 09:39 Dose: 50 mls/hr Insulin Aspart (Novolog) 0 unit SUBCUT TIDAC [facility]; Protocol Last Admin: 06/15/19 07:31 Dose: 9 units Insulin Aspart (Novolog) 0 unit SUBCUT Q6H [facility]; Protocol Last Admin: 06/17/19 13:46 Dose: 3 units Insulin Glargine (Lantus Solostar) 20 units SUBCUT BEDTIME [facility] Ketorolac Tromethamine (Toradol) 30 mg IVPUSH ONETIME ONE Stop: 06/15/19 01:13 Last Admin: 06/15/19 01:31 Dose: 30 mg Ketorolac Tromethamine (Toradol) 15 mg IVPUSH Q6H PRN PRN Reason: Pain Last Admin: 06/17/19 22:07 Dose: 15 mg Lorazepam (Ativan) 1 mg IVPUSH ONETIME ONE Stop: 06/15/19 04:43 Last Admin: 06/15/19 04:51 Dose: 1 mg Lorazepam (Ativan) 1 mg IVPUSH ONETIME ONE Stop: 06/17/19 00:02 Last Admin: 06/17/19 01:07 Dose: 1 mg Methylprednisolone Sodium Succinate (Solu-Medrol) 60 mg IV NOW ONE Stop: 06/15/19 01:31 Last Admin: 06/15/19 01:42 Dose: 60 mg Metoclopramide HCl (Reglan) 5 mg IVPUSH Q6H [facility] Last Admin: 06/18/19 08:07 Dose: 5 mg Morphine Sulfate (Morphine) 2 mg IVPUSH Q4H PRN PRN Reason: Abdominal Pain Ondansetron HCl (Zofran) 4 mg IVPUSH ONETIME ONE Stop: 06/15/19 01:12 Last Admin: 06/15/19 01:31 Dose: 4 mg Ondansetron HCl (Zofran) 4 mg IVPUSH ONETIME ONE Stop: 06/15/19 03:37 Last Admin: 06/15/19 03:47 Dose: 4 mg Ondansetron HCl (Zofran) 4 mg IVPUSH ONETIME ONE Stop: 06/15/19 03:37 Last Admin: 06/15/19 03:48 Dose: Not Given Senna/Docusate Sodium (Senokot-S) 1 each PO DAILY [facility] Last Admin: 06/17/19 10:32 Dose: Not Given - Exam General: Alert, Oriented Lungs: Clear to Auscultation, Normal Respiratory Effort Cardiovascular: Regular Rate, Regular Rhythm GI/Abdominal Exam: Normal Bowel Sounds, Soft, Tender (diffusely) Extremities: No Pedal Edema Skin: Warm, Dry Neurological: No New Focal Deficit Psy/Mental Status: Alert, Normal Affect, Normal Mood Sepsis Event Note - Evaluation Sepsis Screening Result: No Definite Risk - Focused Exam Vital Signs: Vital Signs Temp Pulse Resp BP Pulse Ox 06/19/19 07:30 97.7 F 81 16 117/81 99 06/19/19 05:16 98.8 F 96 16 106/65 99 06/19/19 00:06 99.5 F 99 16 131/83 99 Date Exam was Performed: 06/19/19 Time Exam was Performed: 11:00 - Problem List Review Problem List Initiated/Reviewed/Updated: Yes - My Orders Last 24 Hours: My Active Orders 06/19/19 08:39 Magnesium Sulfate/Water [Magnesium Sulfate in Water Premix] 2 gm Premix Bag 1 bag IV ONETIME Potassium Chloride Riders [KCL 40 MEQ in Water 100 ML] 40 meq Premix Bag 1 bag IV ONETIME - Plan Plan:: This 23 year old male admitted with abdominal pain and nausea secondary to gastroparesis 1. Gastroparesis- continue Reglan 10 q 6 hrs, Zofran prn. Continue NPO. Has outpatient GI appt scheduled. 2. Ecoli UTI- continue Rocephin. Discharge home on Keflex 10-14 days 3. Neurogenic bladder- Clements placed. Will be discharged with Clements and follow up with Dr. Rodriguez 4. DMI- NPO so keep sliding scale q6 and D5W. Patient has 20 units Lantus at bed. 5. Hx of opioid abuse- continue Suboxone. 6. Itching- has been asking for Benadryl consistently every 6 hours but he become very sleepy with it. Will decrease dose.
[2019-06-19] MEDS: Pantoprazole 40 MG in Sodium Chloride 0.9% 10 ML IV SCH (09:00)
[2019-06-19] MEDS: BUPRENORPHINE HCL PO SCH (09:11)
[2019-06-19] MEDS: NALOXONE HCL PO SCH (09:11)
[2019-06-19] MEDS: HYDROmorphone 1 MG/ML Syringe IVPUSH PRN ×2 (10:40→18:53)
[2019-06-19] MEDS: Ondansetron 4 MG/2 ML SDV IVPUSH PRN ×2 (16:07→21:12)
[2019-06-19] MEDS: Ketorolac 15 MG/ML SDV IVPUSH PRN (16:17)
[2019-06-19] MEDS: LORazepam 2 MG/ML SDV IVPUSH PRN ×2 (16:17→20:19)
[2019-06-19] MEDS: Insulin Glargine,Human Rec. Analog 100 Units/ML 3 ML Pen SUBCUT SCH (21:02)
[2019-06-20] MEDS: LORazepam 2 MG/ML SDV IVPUSH PRN ×2 (00:23→04:30)
[2019-06-20] MEDS: Dextrose 5%-Lactated Ringers 1,000 ML IV SCH ×3 (00:26→19:35)
[2019-06-20] MEDS: HYDROmorphone 1 MG/ML Syringe IVPUSH PRN ×3 (00:56→15:02)
[2019-06-20] MEDS: Metoclopramide 10 MG/2 ML SDV IVPUSH SCH ×4 (01:58→20:08)
[2019-06-20] MEDS: diphenhydrAMINE 50 MG/ML SDV IVPUSH PRN ×3 (03:31→21:18)
[2019-06-20] MEDS: Insulin Aspart 100 Units/ML 3 ML Pen SUBCUT SCH ×4 (05:53→17:51)
[2019-06-20 06:43] LABS: BLOOD UREA NITROGEN,BUN 4 mg/dL (7.0-18.0); CARBON DIOXIDE,CO2 27.5 mmol/L (21.0-32.0); CHLORIDE,CL 102 mmol/L (98-107); GLUCOSE RANDOM 216 mg/dL (74-106); POTASSIUM,K 3.3 mmol/L (3.5-5.1); SODIUM,NA 137 mmol/L (136-148)
[2019-06-20] MEDS: cefTRIAXone 1 GM in Premix Bag 1 BAG IV SCH (08:40)
[2019-06-20] MEDS: BUPRENORPHINE HCL PO SCH (08:46)
[2019-06-20] MEDS: NALOXONE HCL PO SCH (08:46)
[2019-06-20] MEDS: Pantoprazole 40 MG in Sodium Chloride 0.9% 10 ML IV SCH (09:33)
--- NOTE | 2019-06-20 11:49 | PCM.PN ---
- General Info Date of Service: 06/20/19 Admission Dx/Problem (Free Text): Admission Diagnosis/Problem Admission Diagnosis/Problem Gastroparesis due to secondary diabetes Subjective Update: The patient reports nausea is better but he is too "scared to try food", encouraged him to try some PO diet today and getting OOB - Review of Systems General: Reports: Weakness, Fatigue. Denies: Fever Pulmonary: Denies: Shortness of Breath, Pleuritic Chest Pain Cardiovascular: Denies: Chest Pain, Palpitations Gastrointestinal: Reports: Abdominal Pain, Decreased Appetite. Denies: Constipation, Diarrhea, Difficulty Swallowing Genitourinary: Denies: Dysuria, Frequency, Burning Musculoskeletal: Denies: Neck Pain, Shoulder Pain, Arm Pain Skin: Denies: Cyanosis, Mottled, Pallor - Patient Data Vitals - Most Recent: Last Vital Signs Temp 36.7 C 06/20/19 07:47 Pulse 74 06/20/19 07:47 Resp 15 06/20/19 07:47 BP 135/97 H 06/20/19 07:47 Pulse Ox 99 06/20/19 09:00 Weight - Most Recent: 50.7 kg I&O - Last 24 Hours: Intake & Output 06/19/19 06/20/19 06/20/19 22:59 06:59 14:59 Intake Total 1145 1063 Output Total 1910 1300 Balance -765 -237 Lab Results Last 24 Hours: Laboratory Results - last 24 hr 06/19/19 06/19/19 06/19/19 Range/Units 12:57 17:44 21:00 WBC (4.0-11.0) K/uL RBC (4.50-5.90) M/uL Hgb (13.0-17.0) g/dL Hct (38.0-50.0) % MCV (80.0-98.0) fL MCH (27.0-32.0) pg MCHC (31.0-37.0) g/dL RDW Std Deviation (28.0-62.0) fl RDW Coeff of Erika (11.0-15.0) % Plt Count (150-400) K/uL MPV (7.40-12.00) fL Neut % (Auto) (48.0-80.0) % Lymph % (Auto) (16.0-40.0) % [place] % (Auto) (0.0-15.0) % Eos % (Auto) (0.0-7.0) % Baso % (Auto) (0.0-1.5) % Neut # (Auto) (1.4-5.7) K/uL Lymph # (Auto) (0.6-2.4) K/uL [place] # (Auto) (0.0-0.8) K/uL Eos # (Auto) (0.0-0.7) K/uL Baso # (Auto) (0.0-0.1) K/uL Nucleated RBC % /100WBC Nucleated RBCs # K/uL Sodium (136-148) mmol/L Potassium (3.5-5.1) mmol/L Chloride (98-107) mmol/L Carbon Dioxide (21.0-32.0) mmol/L BUN (7.0-18.0) mg/dL Creatinine (0.8-1.3) mg/dL Est Cr Clr Drug Dosing mL/min Estimated GFR (MDRD) ml/min Glucose (74-106) mg/dL POC Glucose 80 179 H 233 H (60-110) mg/dL Calcium (8.5-10.1) mg/dL Magnesium (1.8-2.4) mg/dL 06/19/19 06/20/19 06/20/19 Range/Units 23:57 05:50 06:20 WBC 5.12 (4.0-11.0) K/uL RBC 4.23 L (4.50-5.90) M/uL Hgb 10.0 L (13.0-17.0) g/dL Hct 32.7 L (38.0-50.0) % MCV 77.3 L (80.0-98.0) fL MCH 23.6 L (27.0-32.0) pg MCHC 30.6 L (31.0-37.0) g/dL RDW Std Deviation 39.6 (28.0-62.0) fl RDW Coeff of Erika 14 (11.0-15.0) % Plt Count 456 H (150-400) K/uL MPV 8.20 (7.40-12.00) fL Neut % (Auto) 57.4 (48.0-80.0) % Lymph % (Auto) 34.8 (16.0-40.0) % [place] % (Auto) 6.8 (0.0-15.0) % Eos % (Auto) 0.8 (0.0-7.0) % Baso % (Auto) 0.2 (0.0-1.5) % Neut # (Auto) 2.9 (1.4-5.7) K/uL Lymph # (Auto) 1.8 (0.6-2.4) K/uL [place] # (Auto) 0.4 (0.0-0.8) K/uL Eos # (Auto) 0.0 (0.0-0.7) K/uL Baso # (Auto) 0.0 (0.0-0.1) K/uL Nucleated RBC % 0.0 /100WBC Nucleated RBCs # 0 K/uL Sodium (136-148) mmol/L Potassium (3.5-5.1) mmol/L Chloride (98-107) mmol/L Carbon Dioxide (21.0-32.0) mmol/L BUN (7.0-18.0) mg/dL Creatinine (0.8-1.3) mg/dL Est Cr Clr Drug Dosing mL/min Estimated GFR (MDRD) ml/min Glucose (74-106) mg/dL POC Glucose 198 H 194 H (60-110) mg/dL Calcium (8.5-10.1) mg/dL Magnesium (1.8-2.4) mg/dL 06/20/19 Range/Units 06:20 WBC (4.0-11.0) K/uL RBC (4.50-5.90) M/uL Hgb (13.0-17.0) g/dL Hct (38.0-50.0) % MCV (80.0-98.0) fL MCH (27.0-32.0) pg MCHC (31.0-37.0) g/dL RDW Std Deviation (28.0-62.0) fl RDW Coeff of Erika (11.0-15.0) % Plt Count (150-400) K/uL MPV (7.40-12.00) fL Neut % (Auto) (48.0-80.0) % Lymph % (Auto) (16.0-40.0) % [place] % (Auto) (0.0-15.0) % Eos % (Auto) (0.0-7.0) % Baso % (Auto) (0.0-1.5) % Neut # (Auto) (1.4-5.7) K/uL Lymph # (Auto) (0.6-2.4) K/uL [place] # (Auto) (0.0-0.8) K/uL Eos # (Auto) (0.0-0.7) K/uL Baso # (Auto) (0.0-0.1) K/uL Nucleated RBC % /100WBC Nucleated RBCs # K/uL Sodium 137 (136-148) mmol/L Potassium 3.3 L (3.5-5.1) mmol/L Chloride 102 (98-107) mmol/L Carbon Dioxide 27.5 (21.0-32.0) mmol/L BUN 4 L (7.0-18.0) mg/dL Creatinine 0.6 L (0.8-1.3) mg/dL Est Cr Clr Drug Dosing 139.66 mL/min Estimated GFR (MDRD) > 60.0 ml/min Glucose 216 H (74-106) mg/dL POC Glucose (60-110) mg/dL Calcium 8.1 L (8.5-10.1) mg/dL Magnesium 1.8 (1.8-2.4) mg/dL Med Orders - Current: Current Medications Bisacodyl (Dulcolax) 10 mg RECTAL BID PRN PRN Reason: Constipation Last Admin: 06/17/19 16:32 Dose: 10 mg Calcium Carbonate/Glycine (Tums) 1,000 mg PO Q2HR PRN PRN Reason: Indigestion Last Admin: 06/18/19 18:10 Dose: 1,000 mg Diphenhydramine HCl (Benadryl) 12.5 mg IVPUSH Q6H PRN PRN Reason: Itching Last Admin: 06/20/19 03:31 Dose: 12.5 mg Hydromorphone HCl (Dilaudid) 0.25 mg IVPUSH Q8H PRN PRN Reason: Pain Pantoprazole Sodium 40 mg/ (Sodium Chloride) 10 mls @ 300 mls/hr IV Q24H [facility] Last Admin: 06/20/19 09:33 Dose: 300 mls/hr Ceftriaxone Sodium/Dextrose 1 (gm/ Premix) 50 mls @ 100 mls/hr IV Q24H [facility] Last Admin: 06/20/19 08:40 Dose: 100 mls/hr Dextrose/Lactated Ringer's (Dextrose 5%-Lactated Ringers) 1,000 mls @ 125 mls/ hr IV ASDIRECTED [facility] Last Admin: 06/20/19 09:37 Dose: 125 mls/hr Insulin Aspart (Novolog) 0 unit SUBCUT Q6H [facility]; Protocol Last Admin: 06/20/19 05:53 Dose: 3 units Insulin Glargine (Lantus Solostar) 20 units SUBCUT BEDTIME [facility] Last Admin: 06/19/19 21:02 Dose: 20 units Ketorolac Tromethamine (Toradol) 15 mg IVPUSH Q6H PRN PRN Reason: Pain Last Admin: 06/19/19 16:17 Dose: 15 mg Metoclopramide HCl (Reglan) 10 mg IVPUSH Q6H [facility] Last Admin: 06/20/19 08:38 Dose: 10 mg Ondansetron HCl (Zofran) 4 mg IVPUSH Q4H PRN PRN Reason: Nausea Last Admin: 06/19/19 21:12 Dose: 4 mg Buprenorphine Hcl/Naloxone Hcl [ Zubsolv 5.7-1.4 Mg Tablet 1 each PO DAILY [facility] Last Admin: 06/20/19 08:46 Dose: Not Given Senna/Docusate Sodium (Senna Plus) 1 tab PO DAILY [facility] Last Admin: 06/20/19 08:46 Dose: Not Given Discontinued Medications Bisacodyl (Dulcolax) 10 mg RECTAL ONETIME ONE Stop: 06/16/19 08:39 Last Admin: 06/16/19 09:57 Dose: Not Given Diphenhydramine HCl (Benadryl) 50 mg IVPUSH ONETIME ONE Stop: 06/15/19 01:42 Last Admin: 06/15/19 01:42 Dose: 50 mg Diphenhydramine HCl (Benadryl) Confirm Administered Dose 50 mg .ROUTE .STK-MED ONE Stop: 06/15/19 01:41 Last Admin: 06/15/19 01:47 Dose: Not Given Diphenhydramine HCl (Benadryl) 25 mg IVPUSH Q6H PRN PRN Reason: Itching Last Admin: 06/19/19 00:10 Dose: 25 mg Famotidine (Pepcid) 40 mg IVPUSH ONETIME ONE Stop: 06/15/19 03:37 Last Admin: 06/15/19 03:47 Dose: 40 mg Hydromorphone HCl (Dilaudid) 1 mg IVPUSH ONETIME ONE Stop: 06/16/19 23:52 Last Admin: 06/17/19 01:06 Dose: 1 mg Hydromorphone HCl (Dilaudid) 0.25 mg IVPUSH Q6H PRN PRN Reason: Pain Hydromorphone HCl (Dilaudid) 0.25 mg IVPUSH Q6H PRN PRN Reason: Pain Last Admin: 06/20/19 06:57 Dose: 0.25 mg Hydroxyzine HCl (Atarax) 25 mg PO ONETIME ONE Stop: 06/15/19 01:14 Last Admin: 06/15/19 01:47 Dose: Not Given Sodium Chloride (Normal Saline) 1,000 mls @ 999 mls/hr IV .Bolus ONE Stop: 06/15/19 00:59 Last Admin: 06/15/19 00:00 Dose: 999 mls/hr Sodium Chloride (Normal Saline) 1,000 mls @ 999 mls/hr IV .BOLUS ONE Stop: 06/15/19 02:11 Last Admin: 06/15/19 01:31 Dose: 999 mls/hr Pantoprazole Sodium 40 mg/ (Sodium Chloride) 10 mls @ 300 mls/hr IV NOW ONE Stop: 06/15/19 01:15 Last Admin: 06/15/19 01:32 Dose: 300 mls/hr Sodium Chloride (Normal Saline) 1,000 mls @ 999 mls/hr IV .BOLUS ONE Stop: 06/15/19 04:37 Last Admin: 06/15/19 03:48 Dose: 999 mls/hr Sodium Chloride (Normal Saline) 1,000 mls @ 999 mls/hr IV .BOLUS ONE Stop: 06/15/19 04:38 Last Admin: 06/15/19 03:49 Dose: Not Given Lactated Ringer's (Ringers, Lactated) 1,000 mls @ 125 mls/hr IV ASDIRECTED [facility] Last Admin: 06/19/19 03:19 Dose: 125 mls/hr Ceftriaxone Sodium/Dextrose 1 (gm/ Premix) 50 mls @ 100 mls/hr IV Q24H [facility] Last Admin: 06/15/19 08:35 Dose: 100 mls/hr Magnesium Sulfate 2 gm/ Premix 50 mls @ 50 mls/hr IV ONETIME ONE Stop: 06/15/19 10:50 Last Admin: 06/15/19 10:14 Dose: 50 mls/hr Meropenem/Sodium Chloride 1 gm (/ Premix) 50 mls @ 100 mls/hr IV Q8H [facility] Last Admin: 06/16/19 23:26 Dose: 100 mls/hr Magnesium Sulfate 2 gm/ Premix 50 mls @ 50 mls/hr IV ONETIME ONE Stop: 06/17/19 08:50 Last Admin: 06/17/19 09:39 Dose: 50 mls/hr Magnesium Sulfate 2 gm/ Premix 50 mls @ 50 mls/hr IV ONETIME ONE Stop: 06/19/19 09:38 Last Admin: 06/19/19 09:09 Dose: 50 mls/hr Potassium Chloride 40 meq/ (Premix) 100 mls @ 25 mls/hr IV ONETIME ONE Stop: 06/19/19 12:38 Last Admin: 06/19/19 10:20 Dose: 25 mls/hr Insulin Aspart (Novolog) 0 unit SUBCUT TIDAC [facility]; Protocol Last Admin: 06/15/19 07:31 Dose: 9 units Insulin Aspart (Novolog) 0 unit SUBCUT Q6H [facility]; Protocol Last Admin: 06/17/19 13:46 Dose: 3 units Insulin Glargine (Lantus Solostar) 20 units SUBCUT BEDTIME [facility] Ketorolac Tromethamine (Toradol) 30 mg IVPUSH ONETIME ONE Stop: 06/15/19 01:13 Last Admin: 06/15/19 01:31 Dose: 30 mg Ketorolac Tromethamine (Toradol) 15 mg IVPUSH Q6H PRN PRN Reason: Pain Last Admin: 06/17/19 22:07 Dose: 15 mg Lorazepam (Ativan) 1 mg IVPUSH ONETIME ONE Stop: 06/15/19 04:43 Last Admin: 06/15/19 04:51 Dose: 1 mg Lorazepam (Ativan) 1 mg IVPUSH ONETIME ONE Stop: 06/17/19 00:02 Last Admin: 06/17/19 01:07 Dose: 1 mg Lorazepam (Ativan) 0.5 mg IVPUSH Q4H PRN PRN Reason: Anxiety Last Admin: 06/20/19 04:30 Dose: 0.5 mg Methylprednisolone Sodium Succinate (Solu-Medrol) 60 mg IV NOW ONE Stop: 06/15/19 01:31 Last Admin: 06/15/19 01:42 Dose: 60 mg Metoclopramide HCl (Reglan) 5 mg IVPUSH Q6H [facility] Last Admin: 06/18/19 08:07 Dose: 5 mg Morphine Sulfate (Morphine) 2 mg IVPUSH Q4H PRN PRN Reason: Abdominal Pain Ondansetron HCl (Zofran) 4 mg IVPUSH ONETIME ONE Stop: 06/15/19 01:12 Last Admin: 06/15/19 01:31 Dose: 4 mg Ondansetron HCl (Zofran) 4 mg IVPUSH ONETIME ONE Stop: 06/15/19 03:37 Last Admin: 06/15/19 03:47 Dose: 4 mg Ondansetron HCl (Zofran) 4 mg IVPUSH ONETIME ONE Stop: 06/15/19 03:37 Last Admin: 06/15/19 03:48 Dose: Not Given Senna/Docusate Sodium (Senokot-S) 1 each PO DAILY [facility] Last Admin: 06/17/19 10:32 Dose: Not Given - Exam General: Alert, Oriented, Mild Distress Lungs: Clear to Auscultation, Normal Respiratory Effort Cardiovascular: Regular Rate, Regular Rhythm GI/Abdominal Exam: Normal Bowel Sounds, Soft, Tender Extremities: Normal Inspection, Normal Range of Motion Psy/Mental Status: Alert, Labile Mood Sepsis Event Note - Evaluation Sepsis Screening Result: No Definite Risk - Focused Exam Vital Signs: Vital Signs Temp Pulse Resp BP BP Pulse Ox Pulse Ox 06/20/19 09:00 99 06/20/19 07:47 36.7 C 74 15 135/97 H 100 06/20/19 04:00 36.4 C 89 16 134/85 100 06/20/19 00:00 36.5 C 91 17 132/86 95 Date Exam was Performed: 06/20/19 Time Exam was Performed: 11:49 - Problem List & Annotations (1) Abdominal pain SNOMED Code(s): 32951600 Code(s): R10.9 - UNSPECIFIED ABDOMINAL PAIN Status: Acute Current Visit: Yes (2) Intractable vomiting SNOMED Code(s): 376437563 Code(s): R11.10 - VOMITING, UNSPECIFIED Status: Acute Current Visit: Yes (3) Diabetic gastroparesis SNOMED Code(s): 215467484 Code(s): E11.43 - TYPE 2 DIABETES W DIABETIC AUTONOMIC (POLY)NEUROPATHY; K31.84 - GASTROPARESIS Status: Chronic Priority: Medium Current Visit: Yes (4) Hx of opioid abuse SNOMED Code(s): 507997394 Code(s): F11.11 - OPIOID ABUSE, IN REMISSION Status: Chronic Current Visit: Yes - Problem List Review Problem List Initiated/Reviewed/Updated: Yes - My Orders Last 24 Hours: My Active Orders 06/20/19 09:21 HYDROmorphone [Dilaudid] 0.25 mg IVPUSH Q8H PRN 06/20/19 Breakfast GI Soft Low Fiber [Soft Diet] [DIET] - Plan Plan:: This 23 year old male admitted with abdominal pain and nausea secondary to gastroparesis 1. Gastroparesis- continue Reglan 10 q 6 hrs, Zofran prn. try GI soft diet. Has outpatient GI appt scheduled. 2. Ecoli UTI- continue Rocephin for now til able to tolerate PO. Discharge home on Keflex 10-14 days 3. Neurogenic bladder- Clements placed. Will be discharged with Clements and follow up with Dr. Rodriguez 4. DMI- cont sliding scale q6 and D5W. Patient has 20 units Lantus at bed. 5. Hx of opioid abuse- continue Suboxone. 6. Itching- switch to PO Benadryl as tolerated
[2019-06-20] MEDS ORDERED: LORazepam 2 MG/ML SDV IVPUSH ONE ×2 (17:34→22:17)
--- NOTE | 2019-06-20 20:22 | CR ---
Chest: Portable view of the chest was obtained. Comparison: Prior chest x-ray of 02/03/19. Heart size and mediastinum are normal. Lungs are clear with no acute parenchymal change. Bony structures are grossly intact. Impression: 1. Nothing acute is seen on frontal chest x-ray. Diagnostic code #1 This report was dictated in [facility]
[2019-06-20] MEDS: Insulin Glargine,Human Rec. Analog 100 Units/ML 3 ML Pen SUBCUT SCH (20:29)
[2019-06-20] MEDS: Ondansetron 4 MG/2 ML SDV IVPUSH PRN (21:14)
[2019-06-21] MEDS: Insulin Aspart 100 Units/ML 3 ML Pen SUBCUT SCH ×3 (00:17→11:58)
[2019-06-21] MEDS: Metoclopramide 10 MG/2 ML SDV IVPUSH SCH ×2 (03:20→08:28)
[2019-06-21] MEDS: HYDROmorphone 1 MG/ML Syringe IVPUSH PRN ×2 (03:20→11:33)
[2019-06-21 06:10] LABS: BLOOD UREA NITROGEN,BUN 7 mg/dL (7.0-18.0); CARBON DIOXIDE,CO2 27.9 mmol/L (21.0-32.0); CHLORIDE,CL 101 mmol/L (98-107); GLUCOSE RANDOM 260 mg/dL (74-106); POTASSIUM,K 3.5 mmol/L (3.5-5.1); SODIUM,NA 137 mmol/L (136-148)
[2019-06-21] MEDS: Dextrose 5%-Lactated Ringers 1,000 ML IV SCH (06:19)
[2019-06-21] MEDS ORDERED: Magnesium Sulfate/Water 4 GM in Premix Bag 1 BAG IV ONE (08:08)
[2019-06-21] MEDS: cefTRIAXone 1 GM in Premix Bag 1 BAG IV SCH (08:31)
--- NOTE | 2019-06-21 08:54 | PCM.DCSUM1 ---
Discharge Summary - Hospital Course Brief History: This 23 year old with significant medical history of DM type 1, non compliance, gastroparesis, neurogenic bladder, opioid abuse, and frequent DKA presented to the ED with complaints of abdominal pain and nausea x 1 day. Denies fevers or chills, denies URI symptoms. No chest pain or SOB. Reports abdominal and flank pain some burning with urination. Reports he has been urinating well, just urinates rarely and in large amounts. He reports he has been taking his Suboxone daily. Denies recreational drug use. No black or bloody BM no diarrhea. In the ED labwork otherwise not significant. Glucose 305 , ketones in urine, but none noted in serum. ua tox negative. Ua revealed +2 bacteria, pyuria 8-10, trace LE and negative nitrites. he was given multiple medications in the ED including Zofran, Ativan, Atarax, Solumedrol, and Morphine. He continued to have symptoms so admission was recommended. Diagnosis: Stroke: No - Discharge Data Discharge Date: 06/21/19 Discharge Disposition: Home, Self-Care 01 Condition: Good - Referral to Home Health Primary Care Physician: Lynsey Palm NP - Discharge Diagnosis/Problem(s) (1) Abdominal pain SNOMED Code(s): 35382513 ICD Code: R10.9 - UNSPECIFIED ABDOMINAL PAIN Status: Acute Current Visit : Yes (2) Intractable vomiting SNOMED Code(s): 653498888 ICD Code: R11.10 - VOMITING, UNSPECIFIED Status: Acute Current Visit: Yes (3) Diabetic gastroparesis SNOMED Code(s): 347266459 ICD Code: E11.43 - TYPE 2 DIABETES W DIABETIC AUTONOMIC (POLY)NEUROPATHY; K31.84 - GASTROPARESIS Status: Chronic Priority: Medium Current Visit: Yes (4) History of neurogenic bladder SNOMED Code(s): 419726807 ICD Code: Z87.448 - PERSONAL HISTORY OF OTHER DISEASES OF URINARY SYSTEM Status: Chronic Current Visit: No (5) Depression SNOMED Code(s): 74202909 ICD Code: F32.9 - MAJOR DEPRESSIVE DISORDER, SINGLE EPISODE, UNSPECIFIED Status: Chronic Current Visit: No Qualifiers: Depression Type: major depressive disorder Major depression recurrence: unspecified whether recurrent Active/Remission status: in remission of unspecified degree Qualified Code(s): F32.5 - Major depressive disorder, single episode, in full remission (6) Diabetes type 1, uncontrolled SNOMED Code(s): 66846474, 153596152 ICD Code: E10.65 - TYPE 1 DIABETES MELLITUS WITH HYPERGLYCEMIA Status: Chronic Priority: Medium Current Visit: No Qualifiers: Glycemic state: with hyperglycemia Qualified Code(s): E10.65 - Type 1 diabetes mellitus with hyperglycemia (7) Hx of opioid abuse SNOMED Code(s): 828186275 ICD Code: F11.11 - OPIOID ABUSE, IN REMISSION Status: Chronic Current Visit: Yes (8) Noncompliance with medication regimen SNOMED Code(s): 396650532 ICD Code: Z91.14 - PATIENT'S OTHER NONCOMPLIANCE WITH MEDICATION REGIMEN Status: Chronic Current Visit: No - Patient Summary/Data Consults: Consultations 06/15/19 09:09 Consult to Diabetic Nurse Specialist [CONS] Routine Hospital Course: Admitting Diagnoses: Abdominal pain Gastroparesis UTI Discharge Diagnoses: UTI Gastroparesis Other PMH: Opioid abuse Suboxone therapy for opioid abuse Dm TYpe 1 Non Compliance with treatment regimen Neurogenic bladder Alexandr was admitted with UTI and gastroparesis, treated with Rocephin and Reglan along with intermittent pain medications and Zofran. CT of abdomen revealed severe cystitis. Urinary retention noted prior to this and edge catheter was placed. UA revealed UTI. Dr Rodriguez consulted and reviewed CT. Recommended edge to remain in on discharge as well as UTI treatment. He would see him as outpatient. Labwork remained stable, as well as VS. Alexandr continued to want Benadryl and benzodiazepines to stay sleeping all the time. He was encouraged to get up and move. CT noted constipation, which he was given Dulcolax for and had several BMs. He continues to decline moving much. He was counseled on improving quality of life with caring for himself and his chronic illness properly. He verbally understood but doesn't appear to take this seriously. UC returned with E coli resistant to Fluoroquinolones and Bactrim. Continued Rocephin. On discharged I will send him home with Keflfex 500 mg Q6hrs for another 7 days due to the severity of cystitis. For his gastroparesis, GI referral sent. Referral to Dr Rodriguez as well. He is to follow up with PCP as outpatient. He is to return to ED or clinic if concerns should arise Prior to discharge he did vomit. I spoke with him, he is still wanting to go home but is asking for zofran for nausea at home. I offered to cancel discharge and he declines. I will send Zofran along with Reglan 5 mg BID PRN nausea as well. He again was highly encouraged to follow up with specialists and to return to ED or clinic if concerns should arise. May consider transfer to be evaluated by specialist if concerns are related to gastroparesis. - Patient Instructions Diet: GI Soft/Low Residue/Low Fiber Activity: As Tolerated, No Strenuous Activities Showering/Bathing: May Shower Notify Provider of: Fever, Increased Pain, Swelling and Redness, Drainage, Nausea and/or Vomiting - Discharge Plan *PRESCRIPTION DRUG MONITORING PROGRAM REVIEWED*: Not Applicable *COPY OF PRESCRIPTION DRUG MONITORING REPORT IN PATIENT HANY: Not Applicable Prescriptions/Med Rec: cephALEXin [Keflex] 500 mg PO Q6H #28 capsule Docusate Sodium/Sennosides [Senna Plus] 1 tab PO DAILY #60 tablet Metoclopramide HCl [Reglan] 5 mg PO BID PRN #60 tablet PRN Reason: Nausea Ondansetron [Zofran ODT] 4 mg PO Q4H PRN 2 Days #60 tab.dis PRN Reason: Nausea/Vomiting Home Medications: Home Meds Insulin Aspart [NovoLOG] 5 units SUBCUT TIDAC 07/23/18 [History] Ferrous Sulfate [Iron] 325 mg PO BID 09/15/18 [History] Hyoscyamine [Hyomax-SL] 0.125 mg SL Q4H PRN #20 tab.sl 09/16/18 [Rx] Buprenorphine HCl/Naloxone HCl [Zubsolv 5.7-1.4 mg Tablet Sl] 1 each SL DAILY [History] Insulin Glarg,Human.Rec.Analog [Lantus] 40 unit SUBCUT DAILY 12/18/18 [History] Diclofenac Sodium [Voltaren] 75 mg PO BID 02/02/19 [History] methocarbamoL [Robaxin] 500 mg PO TID #20 tablet 02/02/19 [Rx] Metoclopramide [Reglan] 5 mg PO Q8H PRN 3 Days #9 tab 02/06/19 [Rx] Sulfamethoxazole/Trimethoprim [Sulfamethoxazole-Tmp Ds Tablet] 1 each PO BID 5 Days #10 tablet 02/06/19 [Rx] Aspirin 81 mg PO DAILY 06/15/19 [History] Mirtazapine 15 mg PO BEDTIME 06/15/19 [History] Docusate Sodium/Sennosides [Senna Plus] 1 tab PO DAILY #60 tablet 06/21/19 [Rx] Metoclopramide HCl [Reglan] 5 mg PO BID PRN #60 tablet 06/21/19 [Rx] Ondansetron [Zofran ODT] 4 mg PO Q4H PRN 2 Days #60 tab.dis 06/21/19 [Rx] cephALEXin [Keflex] 500 mg PO Q6H #28 capsule 06/21/19 [Rx] Oxygen Therapy Mode: Room Air Patient Handouts: Senna tablets or capsules, Metoclopramide tablets, Ondansetron oral dissolving tablet, Indwelling Urinary Catheter Care, Adult, [id number], Cephalexin tablets or capsules, Gastroparesis Referrals: Jacinta Lora MD [Ordering Only Provider] - 07/12/19 1:00 pm Lynsey Palm NP [Primary Care Provider] - 06/24/19 9:45 am Zahra Rodriguez MD [Physician] - 06/24/19 2:30 pm - Discharge Summary/Plan Comment DC Time >30 min.: No - Patient Data Vitals - Most Recent: Last Vital Signs Temp 97.3 F 06/21/19 04:00 Pulse 86 06/21/19 04:00 Resp 17 06/21/19 04:00 BP 112/72 06/21/19 04:00 Pulse Ox 99 06/21/19 04:00 Weight - Most Recent: 50.7 kg I&O - Last 24 hours: Intake & Output 06/20/19 06/21/19 06/21/19 22:59 06:59 14:59 Intake Total 0 1443 Output Total 1450 1390 Balance -1450 53 Lab Results - Last 24 hrs: Laboratory Results - last 24 hr 06/20/19 06/20/19 06/20/19 Range/Units 13:08 17:34 18:08 WBC (4.0-11.0) K/uL RBC (4.50-5.90) M/uL Hgb (13.0-17.0) g/dL Hct (38.0-50.0) % MCV (80.0-98.0) fL MCH (27.0-32.0) pg MCHC (31.0-37.0) g/dL RDW Std Deviation (28.0-62.0) fl RDW Coeff of Erika (11.0-15.0) % Plt Count (150-400) K/uL MPV (7.40-12.00) fL Neut % (Auto) (48.0-80.0) % Lymph % (Auto) (16.0-40.0) % [place] % (Auto) (0.0-15.0) % Eos % (Auto) (0.0-7.0) % Baso % (Auto) (0.0-1.5) % Neut # (Auto) (1.4-5.7) K/uL Lymph # (Auto) (0.6-2.4) K/uL [place] # (Auto) (0.0-0.8) K/uL Eos # (Auto) (0.0-0.7) K/uL Baso # (Auto) (0.0-0.1) K/uL Nucleated RBC % /100WBC Nucleated RBCs # K/uL Sodium (136-148) mmol/L Potassium (3.5-5.1) mmol/L Chloride (98-107) mmol/L Carbon Dioxide (21.0-32.0) mmol/L BUN (7.0-18.0) mg/dL Creatinine (0.8-1.3) mg/dL Est Cr Clr Drug Dosing mL/min Estimated GFR (MDRD) ml/min Glucose (74-106) mg/dL POC Glucose 235 H 320 H (60-110) mg/dL Calcium (8.5-10.1) mg/dL Magnesium (1.8-2.4) mg/dL Troponin I < 0.050 (0.000-0.056) ng/mL 06/20/19 06/21/19 06/21/19 Range/Units 20:26 00:13 05:35 WBC 4.50 (4.0-11.0) K/uL RBC 4.16 L (4.50-5.90) M/uL Hgb 9.7 L (13.0-17.0) g/dL Hct 32.2 L (38.0-50.0) % MCV 77.4 L (80.0-98.0) fL MCH 23.3 L (27.0-32.0) pg MCHC 30.1 L (31.0-37.0) g/dL RDW Std Deviation 39.2 (28.0-62.0) fl RDW Coeff of Erika 14 (11.0-15.0) % Plt Count 454 H (150-400) K/uL MPV 8.40 (7.40-12.00) fL Neut % (Auto) 50.5 (48.0-80.0) % Lymph % (Auto) 43.3 H (16.0-40.0) % [place] % (Auto) 5.3 (0.0-15.0) % Eos % (Auto) 0.7 (0.0-7.0) % Baso % (Auto) 0.2 (0.0-1.5) % Neut # (Auto) 2.3 (1.4-5.7) K/uL Lymph # (Auto) 2.0 (0.6-2.4) K/uL [place] # (Auto) 0.2 (0.0-0.8) K/uL Eos # (Auto) 0.0 (0.0-0.7) K/uL Baso # (Auto) 0.0 (0.0-0.1) K/uL Nucleated RBC % 0.0 /100WBC Nucleated RBCs # 0 K/uL Sodium (136-148) mmol/L Potassium (3.5-5.1) mmol/L Chloride (98-107) mmol/L Carbon Dioxide (21.0-32.0) mmol/L BUN (7.0-18.0) mg/dL Creatinine (0.8-1.3) mg/dL Est Cr Clr Drug Dosing mL/min Estimated GFR (MDRD) ml/min Glucose (74-106) mg/dL POC Glucose 361 H 275 H (60-110) mg/dL Calcium (8.5-10.1) mg/dL Magnesium (1.8-2.4) mg/dL Troponin I (0.000-0.056) ng/mL 06/21/19 06/21/19 Range/Units 05:35 05:39 WBC (4.0-11.0) K/uL RBC (4.50-5.90) M/uL Hgb (13.0-17.0) g/dL Hct (38.0-50.0) % MCV (80.0-98.0) fL MCH (27.0-32.0) pg MCHC (31.0-37.0) g/dL RDW Std Deviation (28.0-62.0) fl RDW Coeff of Erika (11.0-15.0) % Plt Count (150-400) K/uL MPV (7.40-12.00) fL Neut % (Auto) (48.0-80.0) % Lymph % (Auto) (16.0-40.0) % [place] % (Auto) (0.0-15.0) % Eos % (Auto) (0.0-7.0) % Baso % (Auto) (0.0-1.5) % Neut # (Auto) (1.4-5.7) K/uL Lymph # (Auto) (0.6-2.4) K/uL [place] # (Auto) (0.0-0.8) K/uL Eos # (Auto) (0.0-0.7) K/uL Baso # (Auto) (0.0-0.1) K/uL Nucleated RBC % /100WBC Nucleated RBCs # K/uL Sodium 137 (136-148) mmol/L Potassium 3.5 (3.5-5.1) mmol/L Chloride 101 (98-107) mmol/L Carbon Dioxide 27.9 (21.0-32.0) mmol/L BUN 7 (7.0-18.0) mg/dL Creatinine 0.7 L (0.8-1.3) mg/dL Est Cr Clr Drug Dosing 119.71 mL/min Estimated GFR (MDRD) > 60.0 ml/min Glucose 260 H (74-106) mg/dL POC Glucose 240 H (60-110) mg/dL Calcium 8.0 L (8.5-10.1) mg/dL Magnesium 1.5 L (1.8-2.4) mg/dL Troponin I (0.000-0.056) ng/mL Med Orders - Current: Current Medications Bisacodyl (Dulcolax) 10 mg RECTAL BID PRN PRN Reason: Constipation Last Admin: 06/17/19 16:32 Dose: 10 mg Calcium Carbonate/Glycine (Tums) 1,000 mg PO Q2HR PRN PRN Reason: Indigestion Last Admin: 06/18/19 18:10 Dose: 1,000 mg Diphenhydramine HCl (Benadryl) 12.5 mg IVPUSH Q6H PRN PRN Reason: Itching Last Admin: 06/20/19 21:18 Dose: 12.5 mg Hydromorphone HCl (Dilaudid) 0.25 mg IVPUSH Q8H PRN PRN Reason: Pain Last Admin: 06/21/19 03:20 Dose: 0.25 mg Pantoprazole Sodium 40 mg/ (Sodium Chloride) 10 mls @ 300 mls/hr IV Q24H [facility] Last Admin: 06/20/19 09:33 Dose: 300 mls/hr Ceftriaxone Sodium/Dextrose 1 (gm/ Premix) 50 mls @ 100 mls/hr IV Q24H [facility] Last Admin: 06/21/19 08:31 Dose: 100 mls/hr Dextrose/Lactated Ringer's (Dextrose 5%-Lactated Ringers) 1,000 mls @ 125 mls/ hr IV ASDIRECTED [facility] Last Admin: 06/21/19 06:19 Dose: 125 mls/hr Magnesium Sulfate 4 gm/ Premix 100 mls @ 50 mls/hr IV ONETIME ONE Stop: 06/21/19 10:07 Insulin Aspart (Novolog) 0 unit SUBCUT Q6H [facility]; Protocol Last Admin: 06/21/19 06:18 Dose: 6 units Insulin Glargine (Lantus Solostar) 20 units SUBCUT BEDTIME [facility] Last Admin: 06/20/19 20:29 Dose: 20 units Ketorolac Tromethamine (Toradol) 15 mg IVPUSH Q6H PRN PRN Reason: Pain Last Admin: 06/19/19 16:17 Dose: 15 mg Metoclopramide HCl (Reglan) 10 mg IVPUSH Q6H [facility] Last Admin: 06/21/19 08:28 Dose: 10 mg Ondansetron HCl (Zofran) 4 mg IVPUSH Q4H PRN PRN Reason: Nausea Last Admin: 06/20/19 21:14 Dose: 4 mg Buprenorphine Hcl/Naloxone Hcl [ Zubsolv 5.7-1.4 Mg Tablet 1 each PO DAILY [facility] Last Admin: 06/20/19 08:46 Dose: Not Given Senna/Docusate Sodium (Senna Plus) 1 tab PO DAILY [facility] Last Admin: 06/20/19 08:46 Dose: Not Given Discontinued Medications Bisacodyl (Dulcolax) 10 mg RECTAL ONETIME ONE Stop: 06/16/19 08:39 Last Admin: 06/16/19 09:57 Dose: Not Given Diphenhydramine HCl (Benadryl) 50 mg IVPUSH ONETIME ONE Stop: 06/15/19 01:42 Last Admin: 06/15/19 01:42 Dose: 50 mg Diphenhydramine HCl (Benadryl) Confirm Administered Dose 50 mg .ROUTE .STK-MED ONE Stop: 06/15/19 01:41 Last Admin: 06/15/19 01:47 Dose: Not Given Diphenhydramine HCl (Benadryl) 25 mg IVPUSH Q6H PRN PRN Reason: Itching Last Admin: 06/19/19 00:10 Dose: 25 mg Famotidine (Pepcid) 40 mg IVPUSH ONETIME ONE Stop: 06/15/19 03:37 Last Admin: 06/15/19 03:47 Dose: 40 mg Hydromorphone HCl (Dilaudid) 1 mg IVPUSH ONETIME ONE Stop: 06/16/19 23:52 Last Admin: 06/17/19 01:06 Dose: 1 mg Hydromorphone HCl (Dilaudid) 0.25 mg IVPUSH Q6H PRN PRN Reason: Pain Hydromorphone HCl (Dilaudid) 0.25 mg IVPUSH Q6H PRN PRN Reason: Pain Last Admin: 06/20/19 06:57 Dose: 0.25 mg Hydroxyzine HCl (Atarax) 25 mg PO ONETIME ONE Stop: 06/15/19 01:14 Last Admin: 06/15/19 01:47 Dose: Not Given Sodium Chloride (Normal Saline) 1,000 mls @ 999 mls/hr IV .Bolus ONE Stop: 06/15/19 00:59 Last Admin: 06/15/19 00:00 Dose: 999 mls/hr Sodium Chloride (Normal Saline) 1,000 mls @ 999 mls/hr IV .BOLUS ONE Stop: 06/15/19 02:11 Last Admin: 06/15/19 01:31 Dose: 999 mls/hr Pantoprazole Sodium 40 mg/ (Sodium Chloride) 10 mls @ 300 mls/hr IV NOW ONE Stop: 06/15/19 01:15 Last Admin: 06/15/19 01:32 Dose: 300 mls/hr Sodium Chloride (Normal Saline) 1,000 mls @ 999 mls/hr IV .BOLUS ONE Stop: 06/15/19 04:37 Last Admin: 06/15/19 03:48 Dose: 999 mls/hr Sodium Chloride (Normal Saline) 1,000 mls @ 999 mls/hr IV .BOLUS ONE Stop: 06/15/19 04:38 Last Admin: 06/15/19 03:49 Dose: Not Given Lactated Ringer's (Ringers, Lactated) 1,000 mls @ 125 mls/hr IV ASDIRECTED [facility] Last Admin: 06/19/19 03:19 Dose: 125 mls/hr Ceftriaxone Sodium/Dextrose 1 (gm/ Premix) 50 mls @ 100 mls/hr IV Q24H [facility] Last Admin: 06/15/19 08:35 Dose: 100 mls/hr Magnesium Sulfate 2 gm/ Premix 50 mls @ 50 mls/hr IV ONETIME ONE Stop: 06/15/19 10:50 Last Admin: 06/15/19 10:14 Dose: 50 mls/hr Meropenem/Sodium Chloride 1 gm (/ Premix) 50 mls @ 100 mls/hr IV Q8H [facility] Last Admin: 06/16/19 23:26 Dose: 100 mls/hr Magnesium Sulfate 2 gm/ Premix 50 mls @ 50 mls/hr IV ONETIME ONE Stop: 06/17/19 08:50 Last Admin: 06/17/19 09:39 Dose: 50 mls/hr Magnesium Sulfate 2 gm/ Premix 50 mls @ 50 mls/hr IV ONETIME ONE Stop: 06/19/19 09:38 Last Admin: 06/19/19 09:09 Dose: 50 mls/hr Potassium Chloride 40 meq/ (Premix) 100 mls @ 25 mls/hr IV ONETIME ONE Stop: 06/19/19 12:38 Last Admin: 06/19/19 10:20 Dose: 25 mls/hr Insulin Aspart (Novolog) 0 unit SUBCUT TIDAC [facility]; Protocol Last Admin: 06/15/19 07:31 Dose: 9 units Insulin Aspart (Novolog) 0 unit SUBCUT Q6H [facility]; Protocol Last Admin: 06/17/19 13:46 Dose: 3 units Insulin Glargine (Lantus Solostar) 20 units SUBCUT BEDTIME [facility] Ketorolac Tromethamine (Toradol) 30 mg IVPUSH ONETIME ONE Stop: 06/15/19 01:13 Last Admin: 06/15/19 01:31 Dose: 30 mg Ketorolac Tromethamine (Toradol) 15 mg IVPUSH Q6H PRN PRN Reason: Pain Last Admin: 06/17/19 22:07 Dose: 15 mg Lorazepam (Ativan) 1 mg IVPUSH ONETIME ONE Stop: 06/15/19 04:43 Last Admin: 06/15/19 04:51 Dose: 1 mg Lorazepam (Ativan) 1 mg IVPUSH ONETIME ONE Stop: 06/17/19 00:02 Last Admin: 06/17/19 01:07 Dose: 1 mg Lorazepam (Ativan) 0.5 mg IVPUSH Q4H PRN PRN Reason: Anxiety Last Admin: 06/20/19 04:30 Dose: 0.5 mg Lorazepam (Ativan) 0.5 mg IVPUSH ONETIME ONE Stop: 06/20/19 17:35 Last Admin: 06/20/19 17:40 Dose: 0.5 mg Lorazepam (Ativan) 0.5 mg IVPUSH ONETIME ONE Stop: 06/20/19 22:18 Last Admin: 06/20/19 23:00 Dose: 0.5 mg Methylprednisolone Sodium Succinate (Solu-Medrol) 60 mg IV NOW ONE Stop: 06/15/19 01:31 Last Admin: 06/15/19 01:42 Dose: 60 mg Metoclopramide HCl (Reglan) 5 mg IVPUSH Q6H [facility] Last Admin: 06/18/19 08:07 Dose: 5 mg Morphine Sulfate (Morphine) 2 mg IVPUSH Q4H PRN PRN Reason: Abdominal Pain Ondansetron HCl (Zofran) 4 mg IVPUSH ONETIME ONE Stop: 06/15/19 01:12 Last Admin: 06/15/19 01:31 Dose: 4 mg Ondansetron HCl (Zofran) 4 mg IVPUSH ONETIME ONE Stop: 06/15/19 03:37 Last Admin: 06/15/19 03:47 Dose: 4 mg Ondansetron HCl (Zofran) 4 mg IVPUSH ONETIME ONE Stop: 06/15/19 03:37 Last Admin: 06/15/19 03:48 Dose: Not Given Senna/Docusate Sodium (Senokot-S) 1 each PO DAILY [facility] Last Admin: 06/17/19 10:32 Dose: Not Given - Exam General: Reports: Alert, Oriented, Other (cachetic, thin and frail in appearance ) Lungs: Reports: Clear to Auscultation, Normal Respiratory Effort Cardiovascular: Reports: Regular Rate, Regular Rhythm GI/Abdominal Exam: Normal Bowel Sounds, Soft, Tender Extremities: Normal Inspection, Normal Range of Motion, Non-Tender, No Pedal Edema Neurological: Reports: No New Focal Deficit Psy/Mental Status: Reports: Alert, Normal Affect, Normal Mood
[2019-06-21 08:56] VITALS: BP 126/92; PULSE 77
[2019-06-21] MEDS: diphenhydrAMINE 50 MG/ML SDV IVPUSH PRN (09:16)
[2019-06-21] MEDS: Pantoprazole 40 MG in Sodium Chloride 0.9% 10 ML IV SCH (09:20)
[2019-06-21] MEDS: BUPRENORPHINE HCL PO SCH (09:25)
[2019-06-21] MEDS: NALOXONE HCL PO SCH (09:25)
[2019-06-21] MEDS: Ondansetron 4 MG/2 ML SDV IVPUSH PRN (11:23)
== END 2019-06-21 14:10 | disposition home or self-care (01) | DRG 74 ==
LOC: MW.ED 23:01 → MW.MS 06-15 06:02 → OBSVTOIN 06-16 09:52
PROVIDERS: ADMIT Student in an Organized Health Care Education/Training Program; ATTEND Student in an Organized Health Care Education/Training Program
DX: E10.43 Type 1 diabetes mellitus with diabetic autonomic (poly)neuropathy (principal); N39.0 Urinary tract infection, site not specified; K31.84 Gastroparesis; F32.5 Major depressive disorder, single episode, in full remission; K58.9 Irritable bowel syndrome, unspecified; F32.9 Major depressive disorder, single episode, unspecified; E10.65 Type 1 diabetes mellitus with hyperglycemia; Z83.3 Family history of diabetes mellitus; F17.200 Nicotine dependence, unspecified, uncomplicated; F11.11 Opioid abuse, in remission; N31.9 Neuromuscular dysfunction of bladder, unspecified; Z87.448 Personal history of other diseases of urinary system; Z88.6 Allergy status to analgesic agent; F41.9 Anxiety disorder, unspecified; F17.210 Nicotine dependence, cigarettes, uncomplicated; B96.20 Unspecified Escherichia coli [E. coli] as the cause of diseases classified elsewhere; Z91.14 Patient's other noncompliance with medication regimen; Z79.4 Long term (current) use of insulin; Z79.899 Other long term (current) drug therapy; Z79.82 Long term (current) use of aspirin; Z88.5 Allergy status to narcotic agent
CPT/HCPCS: 36415 ×3; 51702; 51798; 72192; 74176; 80048 ×2; 80053; 80305; 81001; 82009; 82962 ×9; 83735 ×2; 85025 ×3; 87086; 87088; 87186; 96361; 96374; 96375; 96376; 99285; C9113 ×2; J0696; J1200 ×4; J1815; J1885 ×2; J2060; J2185 ×3; J2405 ×4; J2765 ×5; J2930; J3475; J7030 ×3; J7050 ×2; J7120 ×3; S0028; 71045; 71045-26; 84484; 93005; 96365; 96367; 99283; A9270-GY; G0378; J1170; J3480; J3490; J7121

== ENCOUNTER 2019-10-27 10:56 | Emergency (ER) | payer MEDICAID ==
[2019-10-27] MEDS ORDERED: Ondansetron 4 MG/2 ML SDV IVPUSH ONE (11:17)
[2019-10-27] MEDS ORDERED: Ketorolac 30 MG/ML SDV IVPUSH ONE (11:17)
[2019-10-27] MEDS ORDERED: Sodium Chloride 0.9% 1,000 ML IV ONE (11:17)
--- NOTE | 2019-10-27 11:20 | EDM.PDOC ---
ED HPI GENERAL MEDICAL PROBLEM - General Chief Complaint: Gastrointestinal Problem Stated Complaint: VOMITING DIABETIC Time Seen by Provider: 10/27/19 11:00 Source of Information: Reports: Patient History Limitations: Reports: No Limitations - History of Present Illness INITIAL COMMENTS - FREE TEXT/NARRATIVE: HISTORY AND PHYSICAL: History of present illness: Patient is a 24-year-old male who presents to the emergency room with complaints of nausea, vomiting and generalized abdominal pain. Patient has a past medical history of type 1 diabetes, medication noncompliance, gastroparesis, neurogenic bladder, opioid abuse (currently taking Suboxone), and frequent DKA. He states he last checked his blood sugar around 6 PM last evening and resulted 2-3. He did give himself some insulin although shortly after it started to feel unwell. He tried to eat and immediately had nausea and vomiting. States his abdomen hurts from retching. He has not checked his blood sugar or given himself any insulin since 6 PM last night. He states when "I get like this" he does have pruritus. Complaining of mild bilateral flank pain. On his last admission he had UTI requiring IV antibiotics. Patient denies any fever, chills, headache, change in vision, syncope or near syncope. Denies any chest pain, back pain, shortness of breath or cough. Denies any diarrhea, constipation or dysuria. Has not noted any blood in urine or stool. Patient has been eating and drinking appropriately. Review of systems: As per history of present illness and below otherwise all systems reviewed and negative. Past medical history: As per history of present illness and as reviewed below otherwise noncontributory. Surgical history: As per history of present illness and as reviewed below otherwise noncontributory. Social history: See social history for further information Family history: As per history of present illness and as reviewed below otherwise noncontributory. Physical exam: General: Chronically ill-appearing 24-year-old male. Alert and orientated x 3. Nontoxic in appearance and in no acute distress. Vital signs are stable and have been reviewed by me. Nursing notes were reviewed. HEENT: Atraumatic, normocephalic, pupils equal and reactive bilaterally, negative for conjunctival pallor or scleral icterus, mucous membranes moist, TMs normal bilaterally, throat clear, neck supple, nontender, trachea midline. No drooling or trismus noted. No meningeal signs. No hot potato voice noted. Lungs: Clear to auscultation, breath sounds equal bilaterally, chest nontender. Normal work of breathing, no accessory muscles used. Heart: S1S2, regular rate and rhythm without overt murmur Abdomen: Soft, nondistended, nontender. Negative for masses or hepatosplenomegaly. Negative for costovertebral tenderness. Skin: Intact, warm, dry. No lesions or rashes noted. Hematologic: No petechiae or purpra. Mucosa appropriate color and normal nail bed color and refill. Extremities: Atraumatic, moves all extremities per self without difficulty or deficits, negative for cords or calf pain. Neurovascular unremarkable. Neuro: Awake, alert, oriented. Cranial nerves II through XII unremarkable. Cerebellum unremarkable. Motor and sensory unremarkable throughout. Exam nonfocal. Psychiatric: Mood and affect are appropriate. Normal thought process. Answering questions appropriately. Notes: Patient does not appear to be in DKA. He does have a urinary tract infection. He has been vitally stable while here. Resting/sleeping most of his time here in the emergency room. We did do a PO challenge, was able to keep food and fluids down. Will discharge patient home with Zofran and p.o. antibiotics. We discussed in great length signs and symptoms that would prompt him to return ba ck to the emergency room. I would like him to follow-up with his primary care provider in the next few days. He voices understanding and is agreeable to care. Denies any further questions or concerns at this time. Diagnostics: CBC, CMP, VBG, UA, Lactate, blood glucose Therapeutics: IV fluids, Benadryl, Toradol, Zofran Prescription: Zofran Impression: Nausea and vomiting UTI Plan: 1. [place] diet and advance as tolerated. Increase fluids to prevent dehydration. Zofran as needed for nausea 2. Continue to monitor your blood sugars routinely. Take your insulin as directed. 3. We encourage you to follow up with your primary care provider and/or recommended specialist in the next few days for re-evaluation and further care/management. If your symptoms should worsen, new symptoms develop or any of the signs and symptoms we discussed should arise please return to the emergency room or call 911 (if needed). Definitive disposition and diagnosis as appropriate pending reevaluation and wilberto mckay of above. abdominal Pain Score (Numeric/FACES): 9 - Related Data Allergies Allergy/AdvReac Type Severity Reaction Status Date / Time morphine Allergy Itching Verified 10/27/19 11:14 Home Meds: Home Meds Insulin Aspart [NovoLOG] 5 units SUBCUT TIDAC 07/23/18 [History] Buprenorphine HCl/Naloxone HCl [Zubsolv 5.7-1.4 mg Tablet Sl] 1 each SL TID 12/18/18 [History] Insulin Glarg,Human.Rec.Analog [Lantus] 40 unit SUBCUT DAILY 12/18/18 [History] Ciprofloxacin HCl [Cipro] 500 mg PO BID 7 Days #14 tablet 10/27/19 [Rx] Ondansetron [Zofran ODT] 4 mg PO Q6H PRN #8 tab.dis 10/27/19 [Rx] Past Medical History - Past Health History Medical/Surgical History: Denies Medical/Surgical History HEENT History: Reports: Other (See Below) Other HEENT History: ear ache Cardiovascular History: Reports: None. Denies: CAD, Hypertension Respiratory History: Reports: None Gastrointestinal History: Reports: Irritable Bowel Syndrome Other Gastrointestinal History: gastroparesis Genitourinary History: Reports: Pyelonephritis, Other (See Below) Other Genitourinary History: hydronephrosis, neurogenic bladder Musculoskeletal History: Reports: Fracture Other Musculoskeletal History: Elbow long time ago Neurological History: Reports: None Psychiatric History: Reports: Anxiety, Depression Endocrine/Metabolic History: Reports: Diabetes, Type I Other Endocrine/Metabolic History: non-compliant to DM medications Insulin Pump Model and Drying Machine Back Tender: None Hematologic History: Reports: None Immunologic History: Reports: None Oncologic (Cancer) History: Reports: None Dermatologic History: Reports: Other (See Below) Other Dermatologic History: dry itchy skin - Infectious Disease History Infectious Disease History: Reports: None - Past Surgical History HEENT Surgical History: Reports: None GI Surgical History: Reports: None Male Surgical History: Reports: None Endocrine Surgical History: Reports: None Musculoskeletal Surgical History: Reports: None Dermatological Surgical History: Reports: None Social & Family History - Family History Family Medical History: Noncontributory OBGYN: Reports: Endocrine/Metabolic: Reports: Diabetes, Type I, Diabetes, type II - Caffeine Use Caffeine Use: Reports: Coffee, Soda - Living Situation & Occupation Living situation: Reports: Single, with Family Occupation: Unemployed ED ROS GENERAL - Review of Systems Review Of Systems: Comprehensive ROS is negative, except as noted in HPI. ED EXAM, GI/ABD - Physical Exam Exam: See Below (See dictation) Course - Vital Signs Last Recorded V/S: Last Vital Signs Temp 96.7 F L 10/27/19 11:09 Pulse 87 10/27/19 13:53 Resp 14 10/27/19 13:53 BP 79/46 L 10/27/19 13:53 Pulse Ox 90 L 10/27/19 13:53 - Orders/Labs/Meds Orders: Active Orders 24 hr Category Date Time Status Communication Order [RC] STAT Care 10/27/19 13:54 Active CULTURE URINE [RM] Stat Lab 10/27/19 13:13 Received cefTRIAXone [Rocephin in Dextrose,Iso-Osm 1 GM/50 ML] 1 Med 10/27/19 13:46 Active gm Premix Bag 1 bag IV ONETIME Medication Orders Ceftriaxone Sodium/Dextrose 1 (gm/ Premix) 50 mls @ 100 mls/hr IV ONETIME ONE Stop: 10/27/19 14:15 Last Admin: 10/27/19 13:51 Dose: 100 mls/hr Documented by: RICKY Labs: Laboratory Tests 10/27/19 10/27/19 10/27/19 Range/Units 11:15 11:15 11:15 WBC 6.47 (4.0-11.0) K/uL RBC 4.23 L (4.50-5.90) M/uL Hgb 10.2 L (13.0-17.0) g/dL Hct 34.4 L (38.0-50.0) % MCV 81.3 (80.0-98.0) fL MCH 24.1 L (27.0-32.0) pg MCHC 29.7 L (31.0-37.0) g/dL RDW Std Deviation 45.8 (28.0-62.0) fl RDW Coeff of Erika 16 H (11.0-15.0) % Plt Count 364 (150-400) K/uL MPV 9.10 (7.40-12.00) fL Neut % (Auto) 70.1 (48.0-80.0) % Lymph % (Auto) 25.0 (16.0-40.0) % Craig % (Auto) 4.3 (0.0-15.0) % Eos % (Auto) 0.3 (0.0-7.0) % Baso % (Auto) 0.3 (0.0-1.5) % Neut # (Auto) 4.5 (1.4-5.7) K/uL Lymph # (Auto) 1.6 (0.6-2.4) K/uL Craig # (Auto) 0.3 (0.0-0.8) K/uL Eos # (Auto) 0.0 (0.0-0.7) K/uL Baso # (Auto) 0.0 (0.0-0.1) K/uL Nucleated RBC % 0.0 /100WBC Nucleated RBCs # 0 K/uL VBG pH 7.39 (7.31-7.41) VBG pCO2 48 H (35-45) mmHG VBG pO2 33 (30-40) mmHG VBG HCO3 29 (22-30) mEq/L VBG Total CO2 27 L (41-51) mmol/L VBG Base Excess 3.4 H (-3.0-3.0) Lactate 1.4 (0.20-2.00) mmol/L Sodium (136-148) mmol/L Potassium (3.5-5.1) mmol/L Chloride (98-107) mmol/L Carbon Dioxide (21.0-32.0) mmol/L BUN (7.0-18.0) mg/dL Creatinine (0.8-1.3) mg/dL Est Cr Clr Drug Dosing mL/min Estimated GFR (MDRD) ml/min Glucose (74-106) mg/dL POC Glucose (60-110) mg/dL Calcium (8.5-10.1) mg/dL Total Bilirubin (0.2-1.0) mg/dL AST (15-37) IU/L ALT (14-63) IU/L Alkaline Phosphatase (46-116) U/L Total Protein (6.4-8.2) g/dL Albumin (3.4-5.0) g/dL Globulin (2.6-4.0) g/dL Albumin/Globulin Ratio (0.9-1.6) Urine Color Urine Appearance Urine pH (5.0-8.0) Ur Specific [place] (1.001-1.035) Urine Protein (NEGATIVE) mg/dL Urine Glucose (UA) (NEGATIVE) mg/dL Urine Ketones (NEGATIVE) mg/dL Urine Occult Blood (NEGATIVE) Urine Nitrite (NEGATIVE) Urine Bilirubin (NEGATIVE) Urine Urobilinogen (<2.0) EU/dL Ur Leukocyte Esterase (NEGATIVE) Urine RBC (0-2/HPF) Urine WBC (0-5/HPF) Ur Epithelial Cells (NONE-FEW) Urine Bacteria (NEGATIVE) 10/27/19 10/27/19 10/27/19 Range/Units 11:15 11:18 13:13 WBC (4.0-11.0) K/uL RBC (4.50-5.90) M/uL Hgb (13.0-17.0) g/dL Hct (38.0-50.0) % MCV (80.0-98.0) fL MCH (27.0-32.0) pg MCHC (31.0-37.0) g/dL RDW Std Deviation (28.0-62.0) fl RDW Coeff of Erika (11.0-15.0) % Plt Count (150-400) K/uL MPV (7.40-12.00) fL Neut % (Auto) (48.0-80.0) % Lymph % (Auto) (16.0-40.0) % Craig % (Auto) (0.0-15.0) % Eos % (Auto) (0.0-7.0) % Baso % (Auto) (0.0-1.5) % Neut # (Auto) (1.4-5.7) K/uL Lymph # (Auto) (0.6-2.4) K/uL Craig # (Auto) (0.0-0.8) K/uL Eos # (Auto) (0.0-0.7) K/uL Baso # (Auto) (0.0-0.1) K/uL Nucleated RBC % /100WBC Nucleated RBCs # K/uL VBG pH (7.31-7.41) VBG pCO2 (35-45) mmHG VBG pO2 (30-40) mmHG VBG HCO3 (22-30) mEq/L VBG Total CO2 (41-51) mmol/L VBG Base Excess (-3.0-3.0) Lactate (0.20-2.00) mmol/L Sodium 142 (136-148) mmol/L Potassium 3.9 (3.5-5.1) mmol/L Chloride 105 (98-107) mmol/L Carbon Dioxide 27.9 (21.0-32.0) mmol/L BUN 24 H (7.0-18.0) mg/dL Creatinine 0.9 (0.8-1.3) mg/dL Est Cr Clr Drug Dosing 93.34 mL/min Estimated GFR (MDRD) > 60.0 ml/min Glucose 174 H (74-106) mg/dL POC Glucose 174 H (60-110) mg/dL Calcium 9.1 (8.5-10.1) mg/dL Total Bilirubin 0.1 L (0.2-1.0) mg/dL AST 20 (15-37) IU/L ALT 14 (14-63) IU/L Alkaline Phosphatase 94 (46-116) U/L Total Protein 9.1 H (6.4-8.2) g/dL Albumin 2.5 L (3.4-5.0) g/dL Globulin 6.6 H (2.6-4.0) g/dL Albumin/Globulin Ratio 0.4 L (0.9-1.6) Urine Color YELLOW Urine Appearance CLOUDY Urine pH 5.5 (5.0-8.0) Ur Specific [place] >= 1.030 (1.001-1.035) Urine Protein 30 H (NEGATIVE) mg/dL Urine Glucose (UA) >=1000 (NEGATIVE) mg/dL Urine Ketones NEGATIVE (NEGATIVE) mg/dL Urine Occult Blood SMALL H (NEGATIVE) Urine Nitrite NEGATIVE (NEGATIVE) Urine Bilirubin NEGATIVE (NEGATIVE) Urine Urobilinogen 0.2 (<2.0) EU/dL Ur Leukocyte Esterase SMALL H (NEGATIVE) Urine RBC 0-3 (0-2/HPF) Urine WBC 40-50 (0-5/HPF) Ur Epithelial Cells RARE (NONE-FEW) Urine Bacteria 4+ H (NEGATIVE) Meds: Medications Generic Name Dose Route Start Last Admin Trade Name Freq PRN Reason Stop Dose Admin Ceftriaxone Sodium/Dextrose 1 50 mls @ 100 mls/hr 10/27/19 13:46 10/27/19 13:51 gm/ Premix IV 10/27/19 14:15 100 mls/hr ONETIME ONE Administration Discontinued Medications Generic Name Dose Route Start Last Admin Trade Name Mary PRN Reason Stop Dose Admin Diphenhydramine HCl 25 mg 10/27/19 11:33 10/27/19 11:37 Benadryl IVPUSH 10/27/19 11:34 25 mg ONETIME ONE Administration Sodium Chloride 1,000 mls @ 999 mls/hr 10/27/19 11:17 10/27/19 11:29 Normal Saline IV 10/27/19 12:17 999 mls/hr STAT ONE Administration Ketorolac Tromethamine 30 mg 10/27/19 11:17 10/27/19 11:29 Toradol IVPUSH 10/27/19 11:18 30 mg ONETIME ONE Administration Ondansetron HCl 4 mg 10/27/19 11:17 10/27/19 11:29 Zofran IVPUSH 10/27/19 11:18 4 mg ONETIME ONE Administration Departure - Departure Time of Disposition: 14:00 Disposition: Home, Self-Care 01 Clinical Impression: UTI (urinary tract infection) Qualifiers: Urinary tract infection type: acute cystitis Hematuria presence: with hematuria Qualified Code(s): N30.01 - Acute cystitis with hematuria Nausea & vomiting Qualifiers: Vomiting type: unspecified Vomiting Intractability: non-intractable Qualified Code(s): R11.2 - Nausea with vomiting, unspecified - Discharge Information Prescriptions: Ciprofloxacin HCl [Cipro] 500 mg PO BID 7 Days #14 tablet Ondansetron [Zofran ODT] 4 mg PO Q6H PRN #8 tab.dis PRN Reason: Nausea Referrals: Lynsey Palm NP [Primary Care Provider] - Forms: ED Department Discharge Additional Instructions: The following information is given to patients seen in the emergency department who are being discharged to home. This information is to outline your options for follow-up care. We provide all patients seen in our emergency department with a follow-up referral. The need for follow-up, as well as the timing and circumstances, are variable depending upon the specifics of your emergency department visit. If you don't have a primary care physician on staff, we will provide you with a referral. We always advise you to contact your personal physician following an emergency department visit to inform them of the circumstance of the visit and for follow-up with them and/or the need for any referrals to a consulting specialist. The emergency department will also refer you to a specialist when appropriate. This referral assures that you have the opportunity for follow-up care with a specialist. All of these measure are taken in an effort to provide you with optimal care, which includes your follow-up. Under all circumstances we always encourage you to contact your private physician who remains a resource for coordinating your care. When calling for follow-up care, please make the office aware that this follow-up is from your recent emergency room visit. If for any reason you are refused follow-up, please contact the [facility] Emergency Department at and asked to speak to the emergency department charge nurse. [facility] [address] [place] [address] [place] [address] Thank you for choosing the [facility] emergency department in [place] for your medical needs today. It was a pleasure caring for you. Today you were seen in the emergency department for nausea and vomiting. 1. [place] diet and advance as tolerated. Increase fluids to prevent dehydration. Zofran as needed for nausea 2. Continue to monitor your blood sugars routinely. Take your insulin as directed. 3. We encourage you to follow up with your primary care provider and/or recommended specialist in the next few days for re-evaluation and further care/ management. If your symptoms should worsen, new symptoms develop or any of the signs and symptoms we discussed should arise please return to the emergency room or call 911 (if needed). Sepsis Event Note (ED) - Evaluation Sepsis Screening Result: No Definite Risk - Focused Exam Vital Signs: Vital Signs Temp Pulse Resp BP Pulse Ox 10/27/19 13:53 87 14 79/46 L 90 L 10/27/19 13:01 93 13 89/54 L 97 10/27/19 11:09 96.7 F L 110 H 16 113/72 98 - My Orders Last 24 Hours: My Active Orders 10/27/19 13:13 CULTURE URINE [RM] Stat 10/27/19 13:46 cefTRIAXone [Rocephin in Dextrose,Iso-Osm 1 GM/50 ML] 1 gm Premix Bag 1 bag IV ONETIME 10/27/19 13:54 Communication Order [RC] STAT - Assessment/Plan Last 24 Hours: My Active Orders 10/27/19 13:13 CULTURE URINE [RM] Stat 10/27/19 13:46 cefTRIAXone [Rocephin in Dextrose,Iso-Osm 1 GM/50 ML] 1 gm Premix Bag 1 bag IV ONETIME 10/27/19 13:54 Communication Order [RC] STAT
[2019-10-27] MEDS ORDERED: diphenhydrAMINE 50 MG/ML SDV IVPUSH ONE (11:33)
[2019-10-27 11:59] LABS: BLOOD UREA NITROGEN,BUN 24 mg/dL (7.0-18.0); CARBON DIOXIDE,CO2 27.9 mmol/L (21.0-32.0); CHLORIDE,CL 105 mmol/L (98-107); GLUCOSE RANDOM 174 mg/dL (74-106); POTASSIUM,K 3.9 mmol/L (3.5-5.1); SODIUM,NA 142 mmol/L (136-148)
[2019-10-27] MEDS ORDERED: cefTRIAXone 1 GM in Premix Bag 1 BAG IV ONE (13:46)
[2019-10-27 13:54] VITALS: PULSE 87
[2019-10-27 14:26] VITALS: BP 96/68
== END 2019-10-27 14:27 | disposition home or self-care (01) ==
LOC: MW.ED 10:56
DX: N30.01 Acute cystitis with hematuria (principal); R11.2 Nausea with vomiting, unspecified; E10.9 Type 1 diabetes mellitus without complications; Z88.5 Allergy status to narcotic agent; Z79.4 Long term (current) use of insulin
CPT/HCPCS: 36415; 80053; 81001; 82803; 82962; 83605; 85025; 87086; 87088; 87186; 96361; 96365; 96375; 99284; J0696; J1200; J1885; J2405; J7030; 99283

== ENCOUNTER 2019-11-04 11:53 | Emergency (ER) | payer MEDICAID ==
[2019-11-04] MEDS ORDERED: Benzocaine 20% Topical Spray UD MUCMEM ONE (12:51)
[2019-11-04] MEDS ORDERED: Lidocaine 2% Viscous Solution 15 ML Cup PO ONE (12:51)
--- NOTE | 2019-11-04 12:52 | EDM.PDOC ---
ED HPI GENERAL MEDICAL PROBLEM - General Chief Complaint: ENT Problem Stated Complaint: ABSCESS Time Seen by Provider: 11/04/19 12:02 Source of Information: Reports: Patient History Limitations: Reports: No Limitations - History of Present Illness INITIAL COMMENTS - FREE TEXT/NARRATIVE: HISTORY AND PHYSICAL: History of present illness: Patient is a 24-year-old male who presents to the ED today with concern of dental abscess over the past 2 to 3 days. Patient states that he has had a dental abscess in the past but has been many years since he has had one. Patient states he has not taken anything for his symptoms and has not seen a dentist. Patient denies any health history. Patient states he has been able to eat and drink and just avoids chewing around the area of the abscess. Patient denies fever, chills, chest pain, shortness of breath, or cough. Denies headache, neck stiff ness, change in vision, syncope, or near syncope. Denies nausea, vomiting, abdominal pain, diarrhea, constipation, or dysuria. Has not noted any blood in urine or stool. Patient has been eating and drinking appropriately. Review of systems: As per history of present illness and below otherwise all systems reviewed and negative. Past medical history: As per history of present illness and as reviewed below otherwise noncontributory. Surgical history: As per history of present illness and as reviewed below otherwise noncontributory. Social history: See social history for further information Family history: As per history of present illness and as reviewed below otherwise noncontributory. Physical exam: General: Patient is alert, oriented, and in no acute distress. Patient sitting comfortably on exam table. HEENT: There is a dental abscess of teeth 22 and 21 with drainable abscess pocket just below these teeth. Generalized poor dentition. Otherwise, atraumatic, normocephalic, pupils equal and reactive bilaterally, negative for conjunctival pallor or scleral icterus, mucous membranes moist, TMs normal bilaterally, throat clear, neck supple, nontender, trachea midline. No drooling or trismus noted. No meningeal signs. No hot potato voice noted. Lungs: Clear to auscultation, breath sounds equal bilaterally, chest nontender. Heart: S1S2, regular rate and rhythm without overt murmur Abdomen: Soft, nondistended, nontender. Negative for masses or hepatosplenom egaly. Negative for costovertebral tenderness. Pelvis: Stable nontender. Genitourinary: Deferred. Rectal: Deferred. Skin: Intact, warm, dry. No lesions or rashes noted. Extremities: Atraumatic, negative for cords or calf pain. Neurovascular unremarkable. Neuro: Awake, alert, oriented. Cranial nerves II through XII unremarkable. Cerebellum unremarkable. Motor and sensory unremarkable throughout. Exam nonfocal. Notes: Discussed importance for follow-up with a dentist for definitive care. Signs and symptoms that would prompt return to the ED thoroughly discussed with patient. Voices understanding and is agreeable to plan of care. Denies any further questions or concerns at this time. Diagnostics: None Therapeutics: Abscess I and D (see procedure note), Lidocaine, Dental balls Prescription: Clindamycin Impression: Dental abscess Plan: 1. Please take medication as prescribed. 2. Tylenol and/or ibuprofen as directed and as needed for pain management. 3. "Tooth Balls" have been given to you; apply along the gumline every 2-3 hours as needed. Do not swallow these; external use only. 4. Follow-up with a dentist for definitive care. Return to the ED as needed and as discussed. Definitive disposition and diagnosis as appropriate pending reevaluation and review of above. left lower jaw Pain Score (Numeric/FACES): 8 - Related Data Allergies Allergy/AdvReac Type Severity Reaction Status Date / Time morphine Allergy Itching Verified 11/04/19 11:58 Home Meds: Home Meds Insulin Aspart [NovoLOG] 5 units SUBCUT TIDAC 07/23/18 [History] Buprenorphine HCl/Naloxone HCl [Zubsolv 5.7-1.4 mg Tablet Sl] 1 each SL TID 12/18/18 [History] Insulin Glarg,Human.Rec.Analog [Lantus] 40 unit SUBCUT DAILY 12/18/18 [History] Ciprofloxacin HCl [Cipro] 500 mg PO BID 7 Days #14 tablet 10/27/19 [Rx] Ondansetron [Zofran ODT] 4 mg PO Q6H PRN #8 tab.dis 10/27/19 [Rx] Clindamycin HCl 300 mg PO TID 10 Days #30 capsule 11/04/19 [Rx] Past Medical History - Past Health History Medical/Surgical History: Denies Medical/Surgical History HEENT History: Reports: Other (See Below) Other HEENT History: ear ache Cardiovascular History: Reports: None Respiratory History: Reports: None Gastrointestinal History: Reports: Irritable Bowel Syndrome Other Gastrointestinal History: gastroparesis Genitourinary History: Reports: Pyelonephritis, Other (See Below) Other Genitourinary History: hydronephrosis, neurogenic bladder Musculoskeletal History: Reports: Fracture Other Musculoskeletal History: Elbow long time ago Neurological History: Reports: None Psychiatric History: Reports: Anxiety, Depression Endocrine/Metabolic History: Reports: Diabetes, Type I Other Endocrine/Metabolic History: non-compliant to DM medications 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 Hematologic History: Reports: None Immunologic History: Reports: None Oncologic (Cancer) History: Reports: None Dermatologic History: Reports: Other (See Below) Other Dermatologic History: dry itchy skin - Infectious Disease History Infectious Disease History: Reports: None - Past Surgical History HEENT Surgical History: Reports: None GI Surgical History: Reports: None Male Surgical History: Reports: None Endocrine Surgical History: Reports: None Musculoskeletal Surgical History: Reports: None Dermatological Surgical History: Reports: None Social & Family History - Family History Family Medical History: Noncontributory OBGYN: Reports: Endocrine/Metabolic: Reports: Diabetes, Type I, Diabetes, type II - Tobacco Use Smoking Status *Q: Former Smoker Used Tobacco, but Quit: Yes Month/Year Tobacco Last Used: 2019 - Caffeine Use Caffeine Use: Reports: Coffee, Energy Drinks, Soda, Tea - Recreational Drug Use Recreational Drug Use: No - Living Situation & Occupation Living situation: Reports: Single, with Family Occupation: Unemployed ED ROS GENERAL - Review of Systems Review Of Systems: Comprehensive ROS is negative, except as noted in HPI. ED EXAM, GENERAL - Physical Exam Exam: See Below (see dictation) ED I&D PROCEDURES - I&D Site: abscess below teeth 22 and 21 Local anesthesia - Lidocaine (Xylocaine): 1% Plain Local Anesthetic Volume: 4cc Area Incised With: 11 Blade Drainage: Purulent, Moderate Amount Probed to Break Up Loculations: No Packed With: None Complications: No Course - Vital Signs Last Recorded V/S: Last Vital Signs Temp 97.0 F 11/04/19 13:16 Pulse 97 11/04/19 13:16 Resp 16 11/04/19 13:16 BP 94/65 11/04/19 13:16 Pulse Ox 100 11/04/19 13:16 - Orders/Labs/Meds Meds: Medications Discontinued Medications Generic Name Dose Route Start Last Admin Trade Name Mary PRN Reason Stop Dose Admin Benzocaine 2 each 11/04/19 12:51 11/04/19 13:11 Hurricaine One 20% MUCMEM 11/04/19 12:52 2 each ONETIME ONE Administration Lidocaine HCl 5 ml 11/04/19 12:14 11/04/19 12:31 Xylocaine-Mpf 1% INJECT 11/04/19 12:15 5 ml ONETIME ONE Administration Lidocaine HCl 15 ml 11/04/19 12:51 11/04/19 13:10 Xylocaine 2% Viscous PO 11/04/19 12:52 15 ml ONETIME ONE Administration Departure - Departure Time of Disposition: 12:51 Disposition: Home, Self-Care 01 Clinical Impression: Dental abscess - Discharge Information Prescriptions: Clindamycin HCl 300 mg PO TID 10 Days #30 capsule Instructions: Dental Abscess, [id number] Referrals: Lynsey Palm PLANT PRODUCTION WORKER [Primary Care Provider] - Forms: ED Department Discharge Additional Instructions: The following information is given to patients seen in the emergency department who are being discharged to home. This information is to outline your options for follow-up care. We provide all patients seen in our emergency department with a follow-up referral. The need for follow-up, as well as the timing and circumstances, are variable depending upon the specifics of your emergency department visit. If you don't have a primary care physician on staff, we will provide you with a referral. We always advise you to contact your personal physician following an emergency department visit to inform them of the circumstance of the visit and for follow-up with them and/or the need for any referrals to a consulting specialist. The emergency department will also refer you to a specialist when appropriate. This referral assures that you have the opportunity for follow-up care with a specialist. All of these measure are taken in an effort to provide you with optimal care, which includes your follow-up. Under all circumstances we always encourage you to contact your private physician who remains a resource for coordinating your care. When calling for follow-up care, please make the office aware that this follow-up is from your recent emergency room visit. If for any reason you are refused follow-up, please contact the [facility] Emergency Department at and asked to speak to the emergency department charge nurse. [facility] [address] [place] [address] [facility] [address] [place] [id number] 1. Please take medication as prescribed. 2. Tylenol and/or ibuprofen as directed and as needed for pain management. 3. "Tooth Balls" have been given to you; apply along the gumline every 2-3 hours as needed. Do not swallow these; external use only. 4. Follow-up with a dentist for definitive care. Return to the ED as needed and as discussed. Sepsis Event Note (ED) - Evaluation Sepsis Screening Result: No Definite Risk - Focused Exam Vital Signs: Vital Signs Temp Pulse Resp BP Pulse Ox 11/04/19 13:16 97.0 F 97 16 94/65 100 11/04/19 11:59 97.5 F 86 17 108/70 100
[2019-11-04 13:20] VITALS: BP 94/65; PULSE 97
== END 2019-11-04 13:16 | disposition home or self-care (01) ==
LOC: MW.ED 11:53
DX: K04.7 Periapical abscess without sinus (principal); E10.69 Type 1 diabetes mellitus with other specified complication; Z88.5 Allergy status to narcotic agent; Z79.899 Other long term (current) drug therapy; Z87.891 Personal history of nicotine dependence
CPT/HCPCS: 41800; 99282; A9270; J2001; 10060

== ENCOUNTER 2019-12-06 06:51 | Emergency (ER) | payer MEDICAID ==
[2019-12-06] MEDS ORDERED: Sodium Chloride 0.9% 10 ML Syringe FLUSH PRN (07:25)
[2019-12-06] MEDS ORDERED: Ondansetron 4 MG/2 ML SDV IVPUSH ONE (07:25)
[2019-12-06] MEDS ORDERED: diphenhydrAMINE 50 MG/ML SDV IVPUSH ONE ×2 (07:25→10:54)
[2019-12-06] MEDS ORDERED: Sodium Chloride 0.9% 1,000 ML IV ONE ×2 (07:25→09:12)
[2019-12-06] MEDS ORDERED: Morphine 4 MG/ML Syringe IVPUSH ONE (07:25)
[2019-12-06] MEDS ORDERED: Sodium Chloride 0.9% 2.5 ML Syringe FLUSH PRN (07:25)
--- NOTE | 2019-12-06 07:39 | EDM.PDOC ---
ED HPI GENERAL MEDICAL PROBLEM - General Chief Complaint: Abdominal Pain Stated Complaint: ABDOMINAL PAIN, NAUSEA Time Seen by Provider: 12/06/19 07:12 - History of Present Illness INITIAL COMMENTS - FREE TEXT/NARRATIVE: 24-year-old male with history of frequent presentations for nausea vomiting abdominal pain related to gastroparesis secondary to his type 1 diabetes as well as a history of medication noncompliance and a history of medication abuse. He is presenting with similar abdominal pain nausea vomiting and inability to tolerate p.o. since last night. He reports his sugar has been in the 300s. He denies having any pain medication at home he denies any drugs or alcohol. No fevers no dysuria hematuria no cough or shortness of breath. Patient reports compliance with his medications. There are no alleviating factors radiation or other associated symptoms, with the exception of generalized itching. abdomen Pain Score (Numeric/FACES): 8 - Related Data Allergies Allergy/AdvReac Type Severity Reaction Status Date / Time morphine Allergy Itching Verified 12/06/19 07:13 Home Meds: Home Meds Insulin Aspart [NovoLOG] 5 units SUBCUT TIDAC 07/23/18 [History] Buprenorphine HCl/Naloxone HCl [Zubsolv 5.7-1.4 mg Tablet Sl] 1 each SL TID 12/18/18 [History] Insulin Glarg,Human.Rec.Analog [Lantus] 40 unit SUBCUT DAILY 12/18/18 [History] Ondansetron [Zofran ODT] 4 mg PO Q6H PRN #8 tab.dis 10/27/19 [Rx] Past Medical History - Past Health History Medical/Surgical History: Denies Medical/Surgical History HEENT History: Reports: Other (See Below) Other HEENT History: ear ache Cardiovascular History: Reports: None Respiratory History: Reports: None Gastrointestinal History: Reports: Irritable Bowel Syndrome Other Gastrointestinal History: gastroparesis Genitourinary History: Reports: Pyelonephritis, Other (See Below) Other Genitourinary History: hydronephrosis, neurogenic bladder Musculoskeletal History: Reports: Fracture Other Musculoskeletal History: Elbow long time ago Neurological History: Reports: None Psychiatric History: Reports: Anxiety, Depression Endocrine/Metabolic History: Reports: Diabetes, Type I Other Endocrine/Metabolic History: non-compliant to DM medications 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 Hematologic History: Reports: None Immunologic History: Reports: None Oncologic (Cancer) History: Reports: None Dermatologic History: Reports: Other (See Below) Other Dermatologic History: dry itchy skin - Infectious Disease History Infectious Disease History: Reports: None - Past Surgical History HEENT Surgical History: Reports: None GI Surgical History: Reports: None Male Surgical History: Reports: None Endocrine Surgical History: Reports: None Musculoskeletal Surgical History: Reports: None Dermatological Surgical History: Reports: None Social & Family History - Family History Family Medical History: Noncontributory OBGYN: Reports: Endocrine/Metabolic: Reports: Diabetes, Type I, Diabetes, type II - Tobacco Use Tobacco Use Status *Q: Never Tobacco User - Caffeine Use Caffeine Use: Reports: Coffee, Energy Drinks, Soda, Tea - Recreational Drug Use Recreational Drug Use: No - Living Situation & Occupation Living situation: Reports: Single, with Family Occupation: Unemployed ED ROS GENERAL - Review of Systems Review Of Systems: See Below Free Text/Narrative/Comment: General: No fever. Skin: Per HPI Eyes: No vision problems. ENT: No sore throat. Neck: No neck stiffness. Respiratory: No shortness of breath. Cardiac: No chest pain. Gastrointestinal: Per HPI Urinary: No dysuria. Musculoskeletal: No myalgias/arthralgias. Neurologic: No headache. ED EXAM, GENERAL - Physical Exam Exam: See Below Free Text/Narrative:: General Appearance: No acute distress, appears comfortable Skin: No rash HEENT: Normocephalic/atraumatic, sclera anicteric, mucous membranes dry Neck: Normal range of motion Chest and Lungs: Bilateral breath sounds, clear to auscultation Cardiovascular: Minimally tachycardic rate and regular rhythm, no murmur Abdomen: Soft, non-tender Back: Normal Musculoskeletal: No edema or tenderness Neurologic: Awake, alert, no obvious deficits, moving all extremities Psychiatric: Appropriate, cooperative Course - Vital Signs Last Recorded V/S: Last Vital Signs Temp 96.7 F L 12/06/19 07:10 Pulse 97 12/06/19 11:16 Resp 16 12/06/19 07:10 BP 127/93 H 12/06/19 11:16 Pulse Ox 99 12/06/19 11:16 - Orders/Labs/Meds Orders: Active Orders 24 hr Category Date Time Status Patient Status [ADT] Routine ADT 12/06/19 11:18 Ordered CORONAVIRUS COVID-19 PCR PHL Stat Lab 12/06/19 11:18 Ordered DRUG SCREEN, URINE [URCHEM] Stat Lab 12/06/19 07:25 Ordered Dextrose 50% in Water Med 12/06/19 09:14 Active 50 ml IV ASDIRECTED PRN Glucagon,Human Recombinant [GlucaGen] Med 12/06/19 09:14 Active 1 mg IM ASDIRECTED PRN Sodium Chloride 0.9% [Saline Flush] Med 12/06/19 07:25 Active 10 ml FLUSH ASDIRECTED PRN Sodium Chloride 0.9% [Saline Flush] Med 12/06/19 07:25 Active 2.5 ml FLUSH ASDIRECTED PRN Saline Lock Insert [OM.PC] Stat Oth 12/06/19 07:25 Ordered Medication Orders Dextrose/Water (Dextrose 50% In Water) 50 ml IV ASDIRECTED PRN PRN Reason: Hypoglycemia Glucagon (Glucagen) 1 mg IM ASDIRECTED PRN PRN Reason: Hypoglycemia Sodium Chloride (Saline Flush) 10 ml FLUSH ASDIRECTED PRN PRN Reason: Keep Vein Open Last Admin: 12/06/19 07:33 Dose: 10 ml Documented by: HAYLEY Sodium Chloride (Saline Flush) 2.5 ml FLUSH ASDIRECTED PRN PRN Reason: Keep Vein Open Last Admin: 12/06/19 07:33 Dose: 2.5 ml Documented by: HAYLEY Labs: Laboratory Tests 12/06/19 12/06/19 12/06/19 Range/Units 07:19 07:35 07:35 WBC 5.85 (4.0-11.0) K/uL RBC 4.69 (4.50-5.90) M/uL Hgb 12.3 L (13.0-17.0) g/dL Hct 39.2 (38.0-50.0) % MCV 83.6 (80.0-98.0) fL MCH 26.2 L (27.0-32.0) pg MCHC 31.4 (31.0-37.0) g/dL RDW Std Deviation 52.8 (28.0-62.0) fl RDW Coeff of Erika 17 H (11.0-15.0) % Plt Count 301 (150-400) K/uL MPV 10.00 (7.40-12.00) fL Neut % (Auto) 54.4 (48.0-80.0) % Lymph % (Auto) 40.3 H (16.0-40.0) % Wirt % (Auto) 2.9 (0.0-15.0) % Eos % (Auto) 1.9 (0.0-7.0) % Baso % (Auto) 0.5 (0.0-1.5) % Neut # (Auto) 3.2 (1.4-5.7) K/uL Lymph # (Auto) 2.4 (0.6-2.4) K/uL Wirt # (Auto) 0.2 (0.0-0.8) K/uL Eos # (Auto) 0.1 (0.0-0.7) K/uL Baso # (Auto) 0.0 (0.0-0.1) K/uL Nucleated RBC % 0.0 /100WBC Nucleated RBCs # 0 K/uL VBG pH (7.31-7.41) VBG pCO2 (35-45) mmHG VBG pO2 (30-40) mmHG VBG HCO3 (22-30) mEq/L VBG Total CO2 (41-51) mmol/L VBG Base Excess (-3.0-3.0) Lactate 1.4 (0.20-2.00) mmol/L Sodium (136-148) mmol/L Potassium (3.5-5.1) mmol/L Chloride (98-107) mmol/L Carbon Dioxide (21.0-32.0) mmol/L BUN (7.0-18.0) mg/dL Creatinine (0.8-1.3) mg/dL Est Cr Clr Drug Dosing mL/min Estimated GFR (MDRD) ml/min Glucose (74-106) mg/dL POC Glucose 291 H (60-110) mg/dL Calcium (8.5-10.1) mg/dL Magnesium (1.8-2.4) mg/dL Total Bilirubin (0.2-1.0) mg/dL AST (15-37) IU/L ALT (14-63) IU/L Alkaline Phosphatase (46-116) U/L Total Protein (6.4-8.2) g/dL Albumin (3.4-5.0) g/dL Globulin (2.6-4.0) g/dL Albumin/Globulin Ratio (0.9-1.6) Lipase (73-393) U/L Ketones (NEG) 12/06/19 12/06/19 12/06/19 Range/Units 07:35 07:35 07:35 WBC (4.0-11.0) K/uL RBC (4.50-5.90) M/uL Hgb (13.0-17.0) g/dL Hct (38.0-50.0) % MCV (80.0-98.0) fL MCH (27.0-32.0) pg MCHC (31.0-37.0) g/dL RDW Std Deviation (28.0-62.0) fl RDW Coeff of Erika (11.0-15.0) % Plt Count (150-400) K/uL MPV (7.40-12.00) fL Neut % (Auto) (48.0-80.0) % Lymph % (Auto) (16.0-40.0) % Wirt % (Auto) (0.0-15.0) % Eos % (Auto) (0.0-7.0) % Baso % (Auto) (0.0-1.5) % Neut # (Auto) (1.4-5.7) K/uL Lymph # (Auto) (0.6-2.4) K/uL Wirt # (Auto) (0.0-0.8) K/uL Eos # (Auto) (0.0-0.7) K/uL Baso # (Auto) (0.0-0.1) K/uL Nucleated RBC % /100WBC Nucleated RBCs # K/uL VBG pH 7.33 (7.31-7.41) VBG pCO2 60 H (35-45) mmHG VBG pO2 27 L (30-40) mmHG VBG HCO3 32 H (22-30) mEq/L VBG Total CO2 29 L (41-51) mmol/L VBG Base Excess 4.0 H (-3.0-3.0) Lactate (0.20-2.00) mmol/L Sodium 141 (136-148) mmol/L Potassium 4.1 (3.5-5.1) mmol/L Chloride 103 (98-107) mmol/L Carbon Dioxide 31.0 (21.0-32.0) mmol/L BUN 36 H (7.0-18.0) mg/dL Creatinine 1.2 (0.8-1.3) mg/dL Est Cr Clr Drug Dosing 70.00 mL/min Estimated GFR (MDRD) > 60.0 ml/min Glucose 323 H (74-106) mg/dL POC Glucose (60-110) mg/dL Calcium 9.6 (8.5-10.1) mg/dL Magnesium 2.2 (1.8-2.4) mg/dL Total Bilirubin 0.2 (0.2-1.0) mg/dL AST 15 (15-37) IU/L ALT 18 (14-63) IU/L Alkaline Phosphatase 105 (46-116) U/L Total Protein 8.9 H (6.4-8.2) g/dL Albumin 3.2 L (3.4-5.0) g/dL Globulin 5.7 H (2.6-4.0) g/dL Albumin/Globulin Ratio 0.6 L (0.9-1.6) Lipase 44 L (73-393) U/L Ketones NEGATIVE (NEG) 12/05/ Range/Units 10:27 WBC (4.0-11.0) K/uL RBC (4.50-5.90) M/uL Hgb (13.0-17.0) g/dL Hct (38.0-50.0) % MCV (80.0-98.0) fL MCH (27.0-32.0) pg MCHC (31.0-37.0) g/dL RDW Std Deviation (28.0-62.0) fl RDW Coeff of Erika (11.0-15.0) % Plt Count (150-400) K/uL MPV (7.40-12.00) fL Neut % (Auto) (48.0-80.0) % Lymph % (Auto) (16.0-40.0) % Wirt % (Auto) (0.0-15.0) % Eos % (Auto) (0.0-7.0) % Baso % (Auto) (0.0-1.5) % Neut # (Auto) (1.4-5.7) K/uL Lymph # (Auto) (0.6-2.4) K/uL Wirt # (Auto) (0.0-0.8) K/uL Eos # (Auto) (0.0-0.7) K/uL Baso # (Auto) (0.0-0.1) K/uL Nucleated RBC % /100WBC Nucleated RBCs # K/uL VBG pH (7.31-7.41) VBG pCO2 (35-45) mmHG VBG pO2 (30-40) mmHG VBG HCO3 (22-30) mEq/L VBG Total CO2 (41-51) mmol/L VBG Base Excess (-3.0-3.0) Lactate (0.20-2.00) mmol/L Sodium (136-148) mmol/L Potassium (3.5-5.1) mmol/L Chloride (98-107) mmol/L Carbon Dioxide (21.0-32.0) mmol/L BUN (7.0-18.0) mg/dL Creatinine (0.8-1.3) mg/dL Est Cr Clr Drug Dosing mL/min Estimated GFR (MDRD) ml/min Glucose (74-106) mg/dL POC Glucose 255 H (60-110) mg/dL Calcium (8.5-10.1) mg/dL Magnesium (1.8-2.4) mg/dL Total Bilirubin (0.2-1.0) mg/dL AST (15-37) IU/L ALT (14-63) IU/L Alkaline Phosphatase (46-116) U/L Total Protein (6.4-8.2) g/dL Albumin (3.4-5.0) g/dL Globulin (2.6-4.0) g/dL Albumin/Globulin Ratio (0.9-1.6) Lipase (73-393) U/L Ketones (NEG) Meds: Medications Generic Name Dose Route Start Last Admin Trade Name Freq PRN Reason Stop Dose Admin Dextrose/Water 50 ml 12/06/19 09:14 Dextrose 50% In Water IV ASDIRECTED PRN Hypoglycemia Glucagon 1 mg 12/06/19 09:14 Glucagen IM ASDIRECTED PRN Hypoglycemia Sodium Chloride 10 ml 12/06/19 07:25 12/06/19 07:33 Saline Flush FLUSH 10 ml ASDIRECTED PRN Administration Keep Vein Open Sodium Chloride 2.5 ml 12/06/19 07:25 12/06/19 07:33 Saline Flush FLUSH 2.5 ml ASDIRECTED PRN Administration Keep Vein Open Discontinued Medications Generic Name Dose Route Start Last Admin Trade Name Freq PRN Reason Stop Dose Admin Diphenhydramine HCl 25 mg 12/06/19 07:25 12/06/19 07:33 Benadryl IVPUSH 12/06/19 07:26 25 mg ONETIME ONE Administration Diphenhydramine HCl 25 mg 12/06/19 10:54 12/06/19 11:11 Benadryl IVPUSH 12/06/19 10:55 25 mg ONETIME ONE Administration Sodium Chloride 1,000 mls @ 999 mls/hr 12/06/19 07:25 12/06/19 07:33 Normal Saline IV 12/06/19 08:25 999 mls/hr .Bolus ONE Administration Sodium Chloride 1,000 mls @ 999 mls/hr 12/06/19 09:12 12/06/19 10:15 Normal Saline IV 12/06/19 10:12 999 mls/hr .Bolus ONE Administration Insulin Aspart 5 unit 12/06/19 09:20 12/06/19 10:18 Novolog SUBCUT 12/06/19 09:21 Not Given ONETIME ONE Insulin Human Regular 5 unit 12/06/19 10:14 12/06/19 10:21 Novolin R SUBCUT 12/06/19 10:15 5 unit ONETIME ONE Administration Protocol Metoclopramide HCl 10 mg 12/06/19 09:12 12/06/19 10:15 Reglan IVPUSH 12/06/19 09:13 10 mg ONETIME ONE Administration Morphine Sulfate 4 mg 12/06/19 07:25 12/06/19 07:33 Morphine IVPUSH 12/06/19 07:26 4 mg ONETIME ONE Administration Ondansetron HCl 4 mg 12/06/19 07:25 12/06/19 07:33 Zofran IVPUSH 12/06/19 07:26 4 mg ONETIME ONE Administration Departure - Departure Time of Disposition: 11:19 Disposition: Refer to Observation Condition: Good Clinical Impression: Gastroparesis due to DM, Hyperglycemia - Discharge Information *PRESCRIPTION DRUG MONITORING PROGRAM REVIEWED*: Not Applicable *COPY OF PRESCRIPTION DRUG MONITORING REPORT IN PATIENT HANY: Not Applicable Instructions: Hyperglycemia, [id number], Gastroparesis Referrals: Lynsey Palm [employer]PS[employer] MAKER [Primary Care Provider] - Forms: ED Department Discharge Critical Care Note - Critical Care Note Total Time (mins): 0 Sepsis Event Note (ED) - Evaluation Sepsis Screening Result: Possible Sepsis Risk - Focused Exam Vital Signs: Vital Signs Temp Pulse Resp BP Pulse Ox 12/06/19 11:16 97 127/93 H 99 12/06/19 07:10 96.7 F L 115 H 16 97/71 97 - My Orders Last 24 Hours: My Active Orders 12/06/19 07:25 DRUG SCREEN, URINE [URCHEM] Stat Sodium Chloride 0.9% [Saline Flush] 10 ml FLUSH ASDIRECTED PRN Sodium Chloride 0.9% [Saline Flush] 2.5 ml FLUSH ASDIRECTED PRN Saline Lock Insert [OM.PC] Stat 12/06/19 09:14 Dextrose 50% in Water 50 ml IV ASDIRECTED PRN Glucagon,Human Recombinant [GlucaGen] 1 mg IM ASDIRECTED PRN 12/06/19 11:18 Patient Status [ADT] Routine CORONAVIRUS COVID-19 PCR PHL Stat - Assessment/Plan Last 24 Hours: My Active Orders 12/06/19 07:25 DRUG SCREEN, URINE [URCHEM] Stat Sodium Chloride 0.9% [Saline Flush] 10 ml FLUSH ASDIRECTED PRN Sodium Chloride 0.9% [Saline Flush] 2.5 ml FLUSH ASDIRECTED PRN Saline Lock Insert [OM.PC] Stat 12/06/19 09:14 Dextrose 50% in Water 50 ml IV ASDIRECTED PRN Glucagon,Human Recombinant [GlucaGen] 1 mg IM ASDIRECTED PRN 12/06/19 11:18 Patient Status [ADT] Routine CORONAVIRUS COVID-19 PCR PHL Stat Assessment:: 24-year-old male nontoxic in appearance presenting with signs and symptoms that are consistent with gastroparesis exacerbation but also must consider DKA acute infectious process such as UTI etc. Narcotic abuse is possible as well however the patient is at risk for significant systemic disease as well. No concern for primary cardiac process no Covid-like symptoms at this point. CBC, CMP, VBG, ketones, urinalysis, UDS, 1 L normal saline, morphine Zofran, Benadryl for pruritus and will reassess. Pt's labs demonstrate a chronic, compensated respiratory acidosis. No signs of DKA, BG upper 300s and will give subQ insulin. Pt's sx are improving. Additional IVF and reglan ordered. 1120: Pt's sx have improved some. However, on PO trial he is able to tolerate only a few sips of water before his pain and nausea again worsens. Given this I'm concerned that dc at this point would likely lead to rapid representation for worsening sx. Given this and with the patient's consent he was discussed with the hospitalist team and will admit for observation for further treatment.
[2019-12-06 08:06] LABS: BLOOD UREA NITROGEN,BUN 36 mg/dL (7.0-18.0); CHLORIDE,CL 103 mmol/L (98-107); GLUCOSE RANDOM 323 mg/dL (74-106); LIPASE 44 U/L (73-393); POTASSIUM,K 4.1 mmol/L (3.5-5.1); SODIUM,NA 141 mmol/L (136-148)
[2019-12-06] MEDS ORDERED: Metoclopramide 10 MG/2 ML SDV IVPUSH ONE (09:12)
[2019-12-06] MEDS ORDERED: 50% Dextrose in Water 50 ML Syringe IV PRN (09:14)
[2019-12-06] MEDS ORDERED: Glucagon,Human Recombinant 1 MG Vial IM PRN (09:14)
[2019-12-06] MEDS ORDERED: Insulin Aspart 100 Units/ML 3 ML Pen SUBCUT ONE (09:20)
[2019-12-06] MEDS ORDERED: Insulin Regular, Human 100 Units/ML 10 ML Vial SUBCUT ONE (10:14)
[2019-12-06 11:53] VITALS: BP 118/86; PULSE 90
== END 2019-12-06 11:52 | disposition home or self-care (01) ==
LOC: MW.ED 06:51
DX: E10.65 Type 1 diabetes mellitus with hyperglycemia (principal); E10.69 Type 1 diabetes mellitus with other specified complication; K31.84 Gastroparesis; Z88.5 Allergy status to narcotic agent; Z79.4 Long term (current) use of insulin
CPT/HCPCS: 36415; 80053; 82009; 82803; 82962; 83605; 83690; 83735; 85025; 96374; 96375; 96376; 99284; J1200; J1815; J2270; J2405; J2765; J7030

== ENCOUNTER 2019-12-16 16:12 | Emergency (ER) | payer MEDICAID ==
--- NOTE | 2019-12-16 16:20 | EDM.PDOC ---
ED HPI GENERAL MEDICAL PROBLEM - General Chief Complaint: Abdominal Pain Stated Complaint: ABDOMINAL PAIN, NAUSEA, VOMITTING Time Seen by Provider: 12/16/19 16:19 Source of Information: Reports: Patient History Limitations: Reports: No Limitations - History of Present Illness INITIAL COMMENTS - FREE TEXT/NARRATIVE: HISTORY AND PHYSICAL: History of present illness: Patient is a 24-year-old male who presents to the emergency room with complaints of feeling "itchy", abdominal pain, nausea and vomiting x 2 days. He states "I'm here again because of my stomach pain, its just like the last few times". Patient has a significant past medical history of type 1 diabetes, medication noncompliance, gastroparesis, neurogenic bladder, opioid abuse (currently on Suboxone), frequent DKA, and depression. Patient denies any fever, chills, headache, change in vision, syncope or near syncope. Denies any chest pain, back pain, shortness of breath or cough. Denies any diarrhea, constipation or dysuria. Has not noted any blood in urine or stool. Denies any alcohol or drug abuse. Review of systems: As per history of present illness and below otherwise all systems reviewed and negative. Past medical history: As per history of present illness and as reviewed below otherwise noncontributory. Surgical history: As per history of present illness and as reviewed below otherwise no ncontributory. Social history: See social history for further information Family history: As per history of present illness and as reviewed below otherwise noncontributory. Physical exam: General: Well developed and well nourished. Alert and orientated x 3. Nontoxic in appearance and in no acute distress. Vital signs are stable and have been reviewed by me. Nursing notes were reviewed. HEENT: Atraumatic, normocephalic, pupils equal and reactive bilaterally, negative for conjunctival pallor or scleral icterus, mucous membranes moist, TMs normal bilaterally, throat clear, neck supple, nontender, trachea midline. No drooling or trismus noted. No meningeal signs. No hot potato voice noted. Lungs: Clear to auscultation, breath sounds equal bilaterally, chest nontender. Normal work of breathing, no accessory muscles used. Heart: S1S2, regular rate and rhythm without overt murmur Abdomen: Soft, nondistended, generalized nonspecific tenderness in all 4 quadrants. Negative for masses or hepatosplenomegaly. Negative for costovertebral tenderness. Pelvis: Stable nontender. Skin: Intact, warm, dry. No lesions or rashes noted. Hematologic: No petechiae or purpra. Mucosa appropriate color and normal nail bed color and refill. Extremities: Atraumatic, moves all extremities per self without difficulty or deficits, negative for cords or calf pain. Neurovascular unremarkable. Neuro: Awake, alert, oriented. Cranial nerves II through XII unremarkable. Cerebellum unremarkable. Motor and sensory unremarkable throughout. Exam nonfocal. Psychiatric: Mood and affect are appropriate. Normal thought process. Answering questions appropriately. Notes: Lab work is unremarkable with the exception of bacteria and WBCs in his urine. I have reviewed this with Dr Santana, attending MD. Patient has been able to eat and drink in the ED without nausea/vomiting. Vital signs have improved. Patient feels better and feels well enough to go home. I have spoken with the patient/caregiver and discussed today's findings, in addition to providing specific details for plan of care. Reassessment at the time of disposition demonstrates that the patient is in no acute distress. The patient has remained stable throughout the entire ED visit and is without objective evidence for acute process requiring urgent intervention or hospitalization. The patient is stable for discharge, counseling was provided and we discussed in great detail signs and symptoms that would prompt them to return to the Emergency Department. Medication, follow up and supportive care measures were reviewed and discussed. Voices understanding and is agreeable to plan of care. Denies any further questions or concerns at this time. Diagnostics: CBC, CMP, UA, VBG, blood glucose Therapeutics: IV fluids, Benadryl, Zofran, Toradol, Regular Insulin, Rocephin Prescription: Bactrim DS Impression: Hyperglycemia UTI Plan: 1. Today your lab work was safe for you to go home. Continue taking your prescribed medications as directed. Tylenol and/or Ibuprofen as needed for pain. 2. Check your blood sugars routinely. 3. We encourage you to follow up with your primary care provider and/or recommended specialist in the next few days for re-evaluation and further care/management. If your symptoms should worsen, new symptoms develop or any of the signs and symptoms we discussed should arise please return to the emergency room or call 911 (if needed). Definitive disposition and diagnosis as appropriate pending reevaluation and review of above. Abdomen Pain Score (Numeric/FACES): 8 - Related Data Allergies Allergy/AdvReac Type Severity Reaction Status Date / Time No Known Allergies Allergy Verified 12/16/19 16:17 Home Meds: Home Meds Insulin Aspart [NovoLOG] 5 units SUBCUT TIDAC 07/23/18 [History] Buprenorphine HCl/Naloxone HCl [Zubsolv 5.7-1.4 mg Tablet Sl] 1 each SL TID 12/18/18 [History] Insulin Glarg,Human.Rec.Analog [Lantus] 40 unit SUBCUT DAILY 12/18/18 [History] Sulfamethoxazole/Trimethoprim [Bactrim Ds Tablet] 1 each PO BID 7 Days #14 tablet 12/16/19 [Rx] Past Medical History - Past Health History Medical/Surgical History: Denies Medical/Surgical History HEENT History: Reports: Other (See Below) Other HEENT History: ear ache Cardiovascular History: Reports: None Respiratory History: Reports: None Gastrointestinal History: Reports: Irritable Bowel Syndrome Other Gastrointestinal History: gastroparesis Genitourinary History: Reports: Pyelonephritis, Other (See Below) Other Genitourinary History: hydronephrosis, neurogenic bladder Musculoskeletal History: Reports: Fracture Other Musculoskeletal History: Elbow long time ago Neurological History: Reports: None Psychiatric History: Reports: Anxiety, Depression Endocrine/Metabolic History: Reports: Diabetes, Type I Other Endocrine/Metabolic History: non-compliant to DM medications Insulin Pump Model and Compliance Tester: None Hematologic History: Reports: None Immunologic History: Reports: None Oncologic (Cancer) History: Reports: None Dermatologic History: Reports: Other (See Below) Other Dermatologic History: dry itchy skin - Infectious Disease History Infectious Disease History: Reports: None - Past Surgical History HEENT Surgical History: Reports: None GI Surgical History: Reports: None Male Surgical History: Reports: None Endocrine Surgical History: Reports: None Musculoskeletal Surgical History: Reports: None Dermatological Surgical History: Reports: None Social & Family History - Family History Family Medical History: Noncontributory OBGYN: Reports: Endocrine/Metabolic: Reports: Diabetes, Type I, Diabetes, type II - Caffeine Use Caffeine Use: Reports: Coffee, Energy Drinks, Soda, Tea - Living Situation & Occupation Living situation: Reports: Single, with Family Occupation: Unemployed ED ROS GENERAL - Review of Systems Review Of Systems: Comprehensive ROS is negative, except as noted in HPI. ED EXAM, GI/ABD - Physical Exam Exam: See Below (See dictation) Course - Vital Signs Last Recorded V/S: Last Vital Signs Temp 99.1 F 12/16/19 16:18 Pulse 125 H 12/16/19 16:18 Resp 18 12/16/19 16:18 BP 90/59 L 12/16/19 16:18 Pulse Ox 96 12/16/19 16:18 - Orders/Labs/Meds Orders: Active Orders 24 hr Category Date Time Status Blood Glucose Check, Bedside [RC] ONETIME Care 12/16/19 16:33 Active CULTURE URINE [RM] Stat Lab 12/16/19 18:15 Received Dextrose 50% in Water Med 12/16/19 17:43 Active 50 ml IV ASDIRECTED PRN Glucagon,Human Recombinant [GlucaGen] Med 12/16/19 17:43 Active 1 mg IM ASDIRECTED PRN cefTRIAXone [Rocephin in Dextrose,Iso-Osm 1 GM/50 ML] 1 Med 12/16/19 18:45 Ordered gm Premix Bag 1 bag IV ONETIME Medication Orders Dextrose/Water (Dextrose 50% In Water) 50 ml IV ASDIRECTED PRN PRN Reason: Hypoglycemia Glucagon (Glucagen) 1 mg IM ASDIRECTED PRN PRN Reason: Hypoglycemia Labs: Laboratory Tests 12/16/19 12/16/19 12/16/19 Range/Units 16:54 16:54 16:54 WBC 6.39 (4.0-11.0) K/uL RBC 4.16 L (4.50-5.90) M/uL Hgb 10.8 L (13.0-17.0) g/dL Hct 34.7 L (38.0-50.0) % MCV 83.4 (80.0-98.0) fL MCH 26.0 L (27.0-32.0) pg MCHC 31.1 (31.0-37.0) g/dL RDW Std Deviation 50.6 (28.0-62.0) fl RDW Coeff of Erika 16 H (11.0-15.0) % Plt Count 201 (150-400) K/uL MPV 10.20 (7.40-12.00) fL Neut % (Auto) 75.7 (48.0-80.0) % Lymph % (Auto) 18.8 (16.0-40.0) % Wake % (Auto) 5.3 (0.0-15.0) % Eos % (Auto) 0.0 (0.0-7.0) % Baso % (Auto) 0.2 (0.0-1.5) % Neut # (Auto) 4.8 (1.4-5.7) K/uL Lymph # (Auto) 1.2 (0.6-2.4) K/uL Wake # (Auto) 0.3 (0.0-0.8) K/uL Eos # (Auto) 0.0 (0.0-0.7) K/uL Baso # (Auto) 0.0 (0.0-0.1) K/uL Nucleated RBC % 0.0 /100WBC Nucleated RBCs # 0 K/uL VBG pH 7.41 (7.31-7.41) VBG pCO2 45 (35-45) mmHG VBG pO2 38 (30-40) mmHG VBG HCO3 29 (22-30) mEq/L VBG Total CO2 26 L (41-51) mmol/L VBG Base Excess 3.2 H (-3.0-3.0) Lactate (0.20-2.00) mmol/L Sodium 143 (136-148) mmol/L Potassium 4.5 (3.5-5.1) mmol/L Chloride 104 (98-107) mmol/L Carbon Dioxide 27.3 (21.0-32.0) mmol/L BUN 31 H (7.0-18.0) mg/dL Creatinine 1.2 (0.8-1.3) mg/dL Est Cr Clr Drug Dosing 70.00 mL/min Estimated GFR (MDRD) > 60.0 ml/min Glucose 257 H (74-106) mg/dL POC Glucose (60-110) mg/dL Calcium 9.5 (8.5-10.1) mg/dL Total Bilirubin 0.3 (0.2-1.0) mg/dL AST 14 L (15-37) IU/L ALT 12 L (14-63) IU/L Alkaline Phosphatase 101 (46-116) U/L Total Protein 8.5 H (6.4-8.2) g/dL Albumin 2.6 L (3.4-5.0) g/dL Globulin 5.9 H (2.6-4.0) g/dL Albumin/Globulin Ratio 0.4 L (0.9-1.6) Lipase 25 L (73-393) U/L Urine Color Urine Appearance Urine pH (5.0-8.0) Ur Specific Carpenter (1.001-1.035) Urine Protein (NEGATIVE) mg/dL Urine Glucose (UA) (NEGATIVE) mg/dL Urine Ketones (NEGATIVE) mg/dL Urine Occult Blood (NEGATIVE) Urine Nitrite (NEGATIVE) Urine Bilirubin (NEGATIVE) Urine Urobilinogen (<2.0) EU/dL Ur Leukocyte Esterase (NEGATIVE) Urine RBC (0-2/HPF) Urine WBC (0-5/HPF) Ur Epithelial Cells (NONE-FEW) Amorphous Sediment (NEGATIVE) Urine Bacteria (NEGATIVE) Urine Mucus (NONE-MOD) 12/16/19 12/16/19 12/16/19 Range/Units 16:54 18:04 18:15 WBC (4.0-11.0) K/uL RBC (4.50-5.90) M/uL Hgb (13.0-17.0) g/dL Hct (38.0-50.0) % MCV (80.0-98.0) fL MCH (27.0-32.0) pg MCHC (31.0-37.0) g/dL RDW Std Deviation (28.0-62.0) fl RDW Coeff of Erika (11.0-15.0) % Plt Count (150-400) K/uL MPV (7.40-12.00) fL Neut % (Auto) (48.0-80.0) % Lymph % (Auto) (16.0-40.0) % Wake % (Auto) (0.0-15.0) % Eos % (Auto) (0.0-7.0) % Baso % (Auto) (0.0-1.5) % Neut # (Auto) (1.4-5.7) K/uL Lymph # (Auto) (0.6-2.4) K/uL Wake # (Auto) (0.0-0.8) K/uL Eos # (Auto) (0.0-0.7) K/uL Baso # (Auto) (0.0-0.1) K/uL Nucleated RBC % /100WBC Nucleated RBCs # K/uL VBG pH (7.31-7.41) VBG pCO2 (35-45) mmHG VBG pO2 (30-40) mmHG VBG HCO3 (22-30) mEq/L VBG Total CO2 (41-51) mmol/L VBG Base Excess (-3.0-3.0) Lactate 1.5 (0.20-2.00) mmol/L Sodium (136-148) mmol/L Potassium (3.5-5.1) mmol/L Chloride (98-107) mmol/L Carbon Dioxide (21.0-32.0) mmol/L BUN (7.0-18.0) mg/dL Creatinine (0.8-1.3) mg/dL Est Cr Clr Drug Dosing mL/min Estimated GFR (MDRD) ml/min Glucose (74-106) mg/dL POC Glucose 245 H (60-110) mg/dL Calcium (8.5-10.1) mg/dL Total Bilirubin (0.2-1.0) mg/dL AST (15-37) IU/L ALT (14-63) IU/L Alkaline Phosphatase (46-116) U/L Total Protein (6.4-8.2) g/dL Albumin (3.4-5.0) g/dL Globulin (2.6-4.0) g/dL Albumin/Globulin Ratio (0.9-1.6) Lipase (73-393) U/L Urine Color YELLOW Urine Appearance SLT CLOUDY Urine pH 5.5 (5.0-8.0) Ur Specific Carpenter >= 1.030 (1.001-1.035) Urine Protein 100 H (NEGATIVE) mg/dL Urine Glucose (UA) >=1000 (NEGATIVE) mg/dL Urine Ketones NEGATIVE (NEGATIVE) mg/dL Urine Occult Blood MODERATE H (NEGATIVE) Urine Nitrite NEGATIVE (NEGATIVE) Urine Bilirubin NEGATIVE (NEGATIVE) Urine Urobilinogen 0.2 (<2.0) EU/dL Ur Leukocyte Esterase SMALL H (NEGATIVE) Urine RBC 2-4 (0-2/HPF) Urine WBC 60-70 (0-5/HPF) Ur Epithelial Cells OCCASIONAL (NONE-FEW) Amorphous Sediment MODERATE (NEGATIVE) Urine Bacteria 1+ H (NEGATIVE) Urine Mucus FEW (NONE-MOD) Meds: Medications Generic Name Dose Route Start Last Admin Trade Name Freq PRN Reason Stop Dose Admin Dextrose/Water 50 ml 12/16/19 17:43 Dextrose 50% In Water IV ASDIRECTED PRN Hypoglycemia Glucagon 1 mg 12/16/19 17:43 Glucagen IM ASDIRECTED PRN Hypoglycemia Discontinued Medications Generic Name Dose Route Start Last Admin Trade Name Freq PRN Reason Stop Dose Admin Diphenhydramine HCl 25 mg 12/16/19 16:31 12/16/19 16:48 Benadryl IVPUSH 12/16/19 16:32 Not Given ONETIME ONE Diphenhydramine HCl 50 mg 12/16/19 16:38 12/16/19 16:48 Benadryl IVPUSH 12/16/19 16:39 50 mg ONETIME ONE Administration Sodium Chloride 1,000 mls @ 999 mls/hr 12/16/19 16:29 12/16/19 16:47 Normal Saline IV 12/16/19 17:29 999 mls/hr STAT ONE Administration Insulin Human Regular 5 unit 12/16/19 17:43 12/16/19 18:07 Novolin R SUBCUT 12/16/19 17:44 5 injection ONETIME ONE Administration Protocol Ketorolac Tromethamine 30 mg 12/16/19 16:29 12/16/19 16:46 Toradol IVPUSH 12/16/19 16:30 30 mg ONETIME ONE Administration Ondansetron HCl 4 mg 12/16/19 16:29 12/16/19 16:46 Zofran IVPUSH 12/16/19 16:30 4 mg ONETIME ONE Administration Departure - Departure Time of Disposition: 18:49 Disposition: Home, Self-Care 01 Clinical Impression: UTI, Urinary tract infectious disease, Hyperglycemia - Discharge Information Instructions: Hyperglycemia, [id number] Referrals: Lynsey Palm AD[facility] MEDICINE SPECIALIST [Primary Care Provider] - Forms: ED Department Discharge Additional Instructions: The following information is given to patients seen in the emergency department who are being discharged to home. This information is to outline your options for follow-up care. We provide all patients seen in our emergency department with a follow-up referral. The need for follow-up, as well as the timing and circumstances, are variable depending upon the specifics of your emergency department visit. If you don't have a primary care physician on staff, we will provide you with a referral. We always advise you to contact your personal physician following an emergency department visit to inform them of the circumstance of the visit and for follow-up with them and/or the need for any referrals to a consulting specialist. The emergency department will also refer you to a specialist when appropriate. This referral assures that you have the opportunity for follow-up care with a specialist. All of these measure are taken in an effort to provide you with optimal care, which includes your follow-up. Under all circumstances we always encourage you to contact your private physician who remains a resource for coordinating your care. When calling for follow-up care, please make the office aware that this follow-up is from your recent emergency room visit. If for any reason you are refused follow-up, please contact the [facility] Emergency Department at and asked to speak to the emergency department charge nurse. [facility] Primary Care [address] [place] [id number] [place] [address] Thank you for choosing the [facility] emergency department in [place] for your medical needs today. It was a pleasure caring for you. Today you were seen in the emergency department for nausea and vomiting and type 1 diabetes. 1. Today your lab work was safe for you to go home. Continue taking your prescribed medications as directed. Tylenol and/or Ibuprofen as needed for pain. 2. Check your blood sugars routinely. 3. We encourage you to follow up with your primary care provider and/or recommended specialist in the next few days for re-evaluation and further care/management. If your symptoms should worsen, new symptoms develop or any of the signs and symptoms we discussed should arise please return to the emergency room or call 911 (if needed). Sepsis Event Note (ED) - Focused Exam Vital Signs: Vital Signs Temp Pulse Resp BP Pulse Ox 12/16/19 16:18 99.1 F 125 H 18 90/59 L 96 - My Orders Last 24 Hours: My Active Orders 12/16/19 16:33 Blood Glucose Check, Bedside [RC] ONETIME 12/16/19 17:43 Dextrose 50% in Water 50 ml IV ASDIRECTED PRN Glucagon,Human Recombinant [GlucaGen] 1 mg IM ASDIRECTED PRN 12/16/19 18:15 CULTURE URINE [RM] Stat 12/16/19 18:45 cefTRIAXone [Rocephin in Dextrose,Iso-Osm 1 GM/50 ML] 1 gm Premix Bag 1 bag IV ONETIME - Assessment/Plan Last 24 Hours: My Active Orders 12/16/19 16:33 Blood Glucose Check, Bedside [] ONETIME 12/16/19 17:43 Dextrose 50% in Water 50 ml IV ASDIRECTED PRN Glucagon,Human Recombinant [GlucaGen] 1 mg IM ASDIRECTED PRN 12/16/19 18:15 CULTURE URINE [RM] Stat 12/16/19 18:45 cefTRIAXone [Rocephin in Dextrose,Iso-Osm 1 GM/50 ML] 1 gm Premix Bag 1 bag IV ONETIME
[2019-12-16] MEDS ORDERED: Sodium Chloride 0.9% 1,000 ML IV ONE (16:29)
[2019-12-16] MEDS ORDERED: Ondansetron 4 MG/2 ML SDV IVPUSH ONE (16:29)
[2019-12-16] MEDS ORDERED: Ketorolac 30 MG/ML SDV IVPUSH ONE (16:29)
[2019-12-16] MEDS ORDERED: diphenhydrAMINE 50 MG/ML SDV IVPUSH ONE (16:38)
[2019-12-16] MEDS: diphenhydrAMINE 50 MG/ML SDV IVPUSH ONE ×2 (16:47→16:48)
[2019-12-16 17:24] LABS: BLOOD UREA NITROGEN,BUN 31 mg/dL (7.0-18.0); CARBON DIOXIDE,CO2 27.3 mmol/L (21.0-32.0); CHLORIDE,CL 104 mmol/L (98-107); GLUCOSE RANDOM 257 mg/dL (74-106); LIPASE 25 U/L (73-393); POTASSIUM,K 4.5 mmol/L (3.5-5.1); SODIUM,NA 143 mmol/L (136-148)
[2019-12-16] MEDS ORDERED: Insulin Regular, Human 100 Units/ML 10 ML Vial SUBCUT ONE (17:43)
[2019-12-16] MEDS ORDERED: 50% Dextrose in Water 50 ML Syringe IV PRN (17:43)
[2019-12-16] MEDS ORDERED: Glucagon,Human Recombinant 1 MG Vial IM PRN (17:43)
[2019-12-16] MEDS ORDERED: cefTRIAXone 1 GM in Premix Bag 1 BAG IV ONE (18:45)
[2019-12-16 23:21] VITALS: BP 97/72; PULSE 91
== END 2019-12-16 19:20 | disposition home or self-care (01) ==
LOC: MW.ED 16:12
DX: N39.0 Urinary tract infection, site not specified (principal); E10.65 Type 1 diabetes mellitus with hyperglycemia; E10.43 Type 1 diabetes mellitus with diabetic autonomic (poly)neuropathy; K31.84 Gastroparesis
CPT/HCPCS: 80053; 81001; 82803; 82962; 83605; 83690; 85025; 87086; 87088; 87186; 96365; 96375; 99284; J0696; J1200; J1885; J2405; J7030; 99283; J1815-GY

== ENCOUNTER 2019-12-29 23:53 | Emergency (ER) | payer MEDICAID ==
[2019-12-30] MEDS ORDERED: Lidocaine 1% 10 ML MDV INJECT ONE (00:23)
--- NOTE | 2019-12-30 00:25 | EDM.PDOC ---
ED HPI GENERAL MEDICAL PROBLEM - General Chief Complaint: ENT Problem Stated Complaint: TOOTH PROBLEM Time Seen by Provider: 12/30/19 00:03 - History of Present Illness INITIAL COMMENTS - FREE TEXT/NARRATIVE: 24-year-old male with history of insulin-dependent diabetes complicated by gastroparesis who is presenting with 2 days of gradually worsening painful swelling in the left jaw consistent with prior dental abscesses. He denies fevers or chills he denies pain with swallowing or difficulty swallowing he reports moderate left lower jaw pain that is gradually gotten worse and worse. He reports that he called multiple dentist today but none of them are taking new Medicaid patients. No neck pain or stiffness he reports chronic baseline abdominal pain. Left Lower Oral/Mouth Pain Score (Numeric/FACES): 8 - Related Data Allergies Allergy/AdvReac Type Severity Reaction Status Date / Time No Known Allergies Allergy Verified 12/16/19 16:17 Home Meds: Home Meds Insulin Aspart [NovoLOG] 5 units SUBCUT TIDAC 07/23/18 [History] Buprenorphine HCl/Naloxone HCl [Zubsolv 5.7-1.4 mg Tablet Sl] 1 each SL TID 12/18/18 [History] Insulin Glarg,Human.Rec.Analog [Lantus] 40 unit SUBCUT DAILY 12/18/18 [History] Sulfamethoxazole/Trimethoprim [Bactrim Ds Tablet] 1 each PO BID 7 Days #14 tablet 12/16/19 [Rx] Chlorhexidine Gluconate [Peridex] 15 ml MM BID #200 mouthwash 12/30/19 [Rx] Penicillin V Potassium 500 mg PO Q6HR #40 tab 12/30/19 [Rx] Past Medical History - Past Health History Medical/Surgical History: Denies Medical/Surgical History HEENT History: Reports: Other (See Below) Other HEENT History: ear ache Cardiovascular History: Reports: None Respiratory History: Reports: None Gastrointestinal History: Reports: Irritable Bowel Syndrome Other Gastrointestinal History: gastroparesis Genitourinary History: Reports: Pyelonephritis, Other (See Below) Other Genitourinary History: hydronephrosis, neurogenic bladder Musculoskeletal History: Reports: Fracture Other Musculoskeletal History: Elbow long time ago Neurological History: Reports: None Psychiatric History: Reports: Anxiety, Depression Endocrine/Metabolic History: Reports: Diabetes, Type I Other Endocrine/Metabolic History: non-compliant to DM medications 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 Hematologic History: Reports: None Immunologic History: Reports: None Oncologic (Cancer) History: Reports: None Dermatologic History: Reports: Other (See Below) Other Dermatologic History: dry itchy skin - Infectious Disease History Infectious Disease History: Reports: None - Past Surgical History HEENT Surgical History: Reports: None GI Surgical History: Reports: None Male Surgical History: Reports: None Endocrine Surgical History: Reports: None Musculoskeletal Surgical History: Reports: None Dermatological Surgical History: Reports: None Social & Family History - Family History Family Medical History: No Pertinent Family History OBGYN: Reports: Endocrine/Metabolic: Reports: Diabetes, Type I, Diabetes, type II - Caffeine Use Caffeine Use: Reports: Coffee, Energy Drinks, Soda, Tea - Living Situation & Occupation Living situation: Reports: Single, with Family Occupation: Unemployed ED ROS GENERAL - Review of Systems Review Of Systems: See Below Free Text/Narrative/Comment: General: No fever. Skin: No rash. Eyes: No vision problems. ENT: Per HPI Neck: No neck stiffness. Respiratory: No shortness of breath. Cardiac: No chest pain. Gastrointestinal: No nausea, vomiting or abdominal pain. Urinary: No dysuria. Musculoskeletal: No myalgias/arthralgias. Neurologic: No headache. ED EXAM, GENERAL - Physical Exam Exam: See Below Free Text/Narrative:: General Appearance: No acute distress, appears comfortable Skin: No rash HEENT: Normocephalic/atraumatic, sclera anicteric, mucous membranes moist, poor dentition, tender swelling in the left mandible consistent with dental abscess likely due to first premolar on the left lower side no trismus no submental or sublingual swelling no signs of Chris's uvula midline no stridor no wheezing Musculoskeletal: No edema or tenderness Neurologic: Awake, alert, no obvious deficits, moving all extremities Psychiatric: Appropriate, cooperative ED GENERAL MEDICAL PROCEDURES - Additional/Other Procedure(s) Other (Free Text) Procedure(s): Abscess Incision and Drainage Procedure Location: Left mandibular dental abscess Time out: Yes, confirmed patient, place, procedure correct Consent: Verbal Anesthetic used: Hurricaine spray, topical lidocaine Procedure: Patient was placed in the bed suction was prepared the area was numbed with topical lidocaine for 5 minutes followed by Hurricaine spray and a single stab incision was made with a scalpel this led to significant amount of purulent return patient swelling markedly improved and he felt better minimal bleeding controlled with ice water rinses Complications: None Performed by: Oswald Acevedo MD Course - Vital Signs Last Recorded V/S: Last Vital Signs Temp 97.5 F 12/30/19 00:03 Pulse 100 12/30/19 00:03 Resp 16 12/30/19 00:03 BP 120/70 12/30/19 00:03 Pulse Ox 99 12/30/19 00:03 - Orders/Labs/Meds Meds: Medications Discontinued Medications Generic Name Dose Route Start Last Admin Trade Name Freq PRN Reason Stop Dose Admin Benzocaine Confirm 12/30/19 00:38 Hurricaine One 20% Administered 12/30/19 00:39 Dose 1 each .ROUTE .STK-MED ONE Benzocaine 1 each 12/30/19 00:43 Hurricaine One 20% MUCMEM 12/30/19 00:44 ONETIME ONE Lidocaine HCl 10 ml 12/30/19 00:23 Xylocaine 1% INJECT 12/30/19 00:24 ONETIME ONE Lidocaine HCl Confirm 12/30/19 00:39 Xylocaine-Mpf 1% Administered 12/30/19 00:40 Dose 5 ml .ROUTE .STK-MED ONE Lidocaine HCl 5 ml 12/30/19 00:44 Xylocaine-Mpf 1% INJECT 12/30/19 00:45 ONETIME ONE Penicillin V Potassium 500 mg 12/30/19 01:21 Veetids PO 12/30/19 01:22 ONETIME ONE Departure - Departure Time of Disposition: 01:28 Disposition: Home, Self-Care 01 Condition: Good Clinical Impression: Dental abscess - Discharge Information *PRESCRIPTION DRUG MONITORING PROGRAM REVIEWED*: Not Applicable *COPY OF PRESCRIPTION DRUG MONITORING REPORT IN PATIENT HANY: Not Applicable Prescriptions: Penicillin V Potassium 500 mg PO Q6HR #40 tab Chlorhexidine Gluconate [Peridex] 15 ml MM BID #200 mouthwash Instructions: Dental Abscess, [id number] Referrals: Lynsey Palm DRY KILN OPERATOR HELPER [Primary Care Provider] - Forms: ED Department Discharge Additional Instructions: Please be sure to take the penicillin and use the Peridex. Please be sure to follow-up with a dentist The following information is given to patients seen in the emergency department who are being discharged to home. This information is to outline your options for follow-up care. We provide all patients seen in our emergency department with a follow-up referral. The need for follow-up, as well as the timing and circumstances, are variable depending upon the specifics of your emergency department visit. If you don't have a primary care physician on staff, we will provide you with a referral. We always advise you to contact your personal physician following an emergency department visit to inform them of the circumstance of the visit and for follow-up with them and/or the need for any referrals to a consulting specialist. The emergency department will also refer you to a specialist when appropriate. This referral assures that you have the opportunity for follow-up care with a specialist. All of these measure are taken in an effort to provide you with optimal care, which includes your follow-up. Under all circumstances we always encourage you to contact your private physician who remains a resource for coordinating your care. When calling for follow-up care, please make the office aware that this follow-up is from your recent emergency room visit. If for any reason you are refused follow-up, please contact the [facility] Emergency Department at and asked to speak to the emergency department charge nurse. Sepsis Event Note (ED) - Evaluation Sepsis Screening Result: No Definite Risk - Focused Exam Vital Signs: Vital Signs Temp Pulse Resp BP Pulse Ox 12/30/19 00:03 97.5 F 100 16 120/70 99 - Assessment/Plan Assessment:: 24-year-old male with dental abscess drained as documented leading to good improvement of symptoms discharged on penicillin and Peridex and dental resources provided no sign of Chris is no sign of deep space infection of the head or neck
[2019-12-30] MEDS ORDERED: Benzocaine 20% Topical Spray UD ONE (00:38)
[2019-12-30] MEDS ORDERED: Benzocaine 20% Topical Spray UD MUCMEM ONE (00:43)
[2019-12-30] MEDS ORDERED: Penicillin V Potassium 500 MG Tab PO ONE (01:21)
[2019-12-30 02:07] VITALS: BP 136/71; PULSE 90
== END 2019-12-30 02:04 | disposition home or self-care (01) ==
LOC: MW.ED 23:53
DX: K04.7 Periapical abscess without sinus (principal); E10.43 Type 1 diabetes mellitus with diabetic autonomic (poly)neuropathy; K31.84 Gastroparesis
CPT/HCPCS: 41800; 99283; A9270; 10060; 99282

== ENCOUNTER 2020-01-23 03:36 | Inpatient (IN) | payer MEDICAID ==
[2020-01-23] MEDS ORDERED: Lactated Ringers 1,000 ML IV ONE ×4 (03:39→23:31)
[2020-01-23] MEDS ORDERED: Sodium Chloride 0.9% 2.5 ML Syringe FLUSH PRN (03:39)
[2020-01-23] MEDS ORDERED: Sodium Chloride 0.9% 10 ML Syringe FLUSH PRN (03:39)
[2020-01-23] MEDS ORDERED: Haloperidol Lactate 5 MG/ML SDV IM ONE (03:55)
--- NOTE | 2020-01-23 03:58 | EDM.PDOC ---
<Riaz Harris - Last Filed: 01/23/20 06:53> ED HPI GENERAL MEDICAL PROBLEM - General Chief Complaint: Gastrointestinal Problem Stated Complaint: ABDOMINAL PAIN, NAUSEATED, VOMITING Time Seen by Provider: 01/23/20 03:37 Source of Information: Reports: Patient History Limitations: Reports: No Limitations - History of Present Illness INITIAL COMMENTS - FREE TEXT/NARRATIVE: 24-year-old male with history of DKA, DM 1, gastroparesis, neurogenic bladder presents with diffuse abdominal pain that started 1 hour ago. Pain is sharp, diffuse, nonradiating, constant, no alleviating or exacerbating factors. He vomited 6 times, nonbloody. Associated with chills. Denies fever, chest pain, shortness of breath. He also notes diffuse pruritus. ROS: A 10-point review of systems, other than pertinent positives and negatives as stated per HPI, is otherwise negative Past medical history: No additional pertinent history Past Surgical history: No additional pertinent history Social history: No additional pertinent history Family history: No additional pertinent history PHYSICAL EXAM General: AOx4, GCS = 15, moderate distress HEENT: dry mucous membrane Neck: supple, no meningismus, no Kernig or Brudzinski Cardiac: S1S2 RRR Respiratory: CTAB, no crackles or rales, no wheezing Abdomen: Soft, diffuse abdominal tenderness, no rebound or guarding, nondistended, no pulsatile mass. Back: nontender Musculoskeletal: NVI distally, no deformity Neuro: No focal deficits, CN 2 - 12 WNL. Stomach Pain Score (Numeric/FACES): 7 - Related Data Allergies Allergy/AdvReac Type Severity Reaction Status Date / Time No Known Allergies Allergy Verified 01/23/20 03:52 Home Meds: Home Meds Insulin Aspart [NovoLOG] 5 units SUBCUT TIDAC 07/23/18 [History] Buprenorphine HCl/Naloxone HCl [Zubsolv 5.7-1.4 mg Tablet Sl] 1 each SL TID 12/18/18 [History] Insulin Glarg,Human.Rec.Analog [Lantus] 40 unit SUBCUT DAILY 12/18/18 [History] Past Medical History - Past Health History Medical/Surgical History: Denies Medical/Surgical History HEENT History: Reports: Other (See Below) Other HEENT History: ear ache, broken and missing teeth Cardiovascular History: Reports: None Respiratory History: Reports: None Gastrointestinal History: Reports: Irritable Bowel Syndrome Other Gastrointestinal History: gastroparesis Genitourinary History: Reports: Pyelonephritis, Other (See Below) Other Genitourinary History: hydronephrosis, neurogenic bladder Musculoskeletal History: Reports: Fracture Other Musculoskeletal History: Elbow long time ago Neurological History: Reports: None Psychiatric History: Reports: Anxiety, Depression Endocrine/Metabolic History: Reports: Diabetes, Type I Other Endocrine/Metabolic History: non-compliant to DM medications Insulin Pump Model and Trestle Mechanic: None Hematologic History: Reports: None Immunologic History: Reports: None Oncologic (Cancer) History: Reports: None Dermatologic History: Reports: Other (See Below) Other Dermatologic History: dry itchy skin - Infectious Disease History Infectious Disease History: Reports: None - Past Surgical History HEENT Surgical History: Reports: None GI Surgical History: Reports: None Male Surgical History: Reports: None Endocrine Surgical History: Reports: None Musculoskeletal Surgical History: Reports: None Dermatological Surgical History: Reports: None Social & Family History - Family History Family Medical History: No Pertinent Family History OBGYN: Reports: Endocrine/Metabolic: Reports: Diabetes, Type I, Diabetes, type II - Tobacco Use Tobacco Use Status *Q: Never Tobacco User - Caffeine Use Caffeine Use: Reports: None - Recreational Drug Use Recreational Drug Use: No - Living Situation & Occupation Living situation: Reports: Single, with Family Occupation: Unemployed ED ROS GENERAL - Review of Systems Review Of Systems: See Below (see dictation) ED EXAM, GENERAL - Physical Exam Exam: See Below (see dictation) Course - Re-Assessments/Exams Free Text/Narrative Re-Assessment/Exam: 01/23/20 04;46 BG = 788, will give 2L IV and IV regular insulin 8 unit. 01/23/20 05:50 BG = 420 after 8 unit IV insulin, will give additional 5 unit IV insulin. He is sleeping soundly after IV Reglan, Benadryl, IV Haldol, Dilaudid 1mg IV. 01/23/20 06:42 BG = 255, rechecked patient, he woke up from his sleep, however he is still photographer in the epigastric/right upper quadrant abdomen, will order ultrasound to assess RUQ and retroperitoneum. Straight cath ordered for urine. 01/23/20 07:00 Case signed out to . Departure - Departure Disposition: Refer to Observation Condition: Good Clinical Impression: Gastroenteritis, Itching, Abdominal pain, Hyperglycemia Nausea & vomiting Qualifiers: Vomiting type: unspecified Vomiting Intractability: non-intractable Qualified Code(s): R11.2 - Nausea with vomiting, unspecified Diabetes type 1, uncontrolled Qualifiers: Glycemic state: with hyperglycemia Qualified Code(s): E10.65 - Type 1 diabetes mellitus with hyperglycemia Abdominal pain Qualifiers: Abdominal location: upper abdomen, unspecified Qualified Code(s): R10.10 - Upper abdominal pain, unspecified - Discharge Information *PRESCRIPTION DRUG MONITORING PROGRAM REVIEWED*: Not Applicable *COPY OF PRESCRIPTION DRUG MONITORING REPORT IN PATIENT HANY: Not Applicable Instructions: Hyperglycemia, [id number], Type 1 Diabetes Mellitus, Self Care, Adult, Abdominal Pain, Adult, [id number], Gastroparesis Referrals: Lynsey Palm ACTUARIAL ASSOCIATE [Primary Care Provider] - 3 Days Forms: ED Department Discharge Additional Instructions: The need for follow-up, as well as the timing and circumstances, are variable depending upon the specifics of your emergency department visit. If you don't have a primary care physician on staff, we will provide you with a referral. We always advise you to contact your personal physician following an emergency department visit to inform them of the circumstance of the visit and for follow-up with them and/or the need for any referrals to a consulting specialist. The emergency department will also refer you to a specialist when appropriate. This referral assures that you have the opportunity for follow-up care with a specialist. All of these measure are taken in an effort to provide you with optimal care, which includes your follow-up. Under all circumstances we always encourage you to contact your private physician who remains a resource for coordinating your care. When calling for follow-up care, please make the office aware that this follow-up is from your recent emergency room visit. If for any reason you are refused follow-up, please contact the [facility] Emergency Department at and asked to speak to the emergency department charge nurse. If you do not have a primary care doctor, please follow up with the clinics below within 3-5 days. [facility] - Primary Care [address] [place] [id number] [facility] [address] [place] [id number] Sepsis Event Note (ED) - Evaluation Sepsis Screening Result: No Definite Risk <Moisés Olson - Last Filed: 01/23/20 09:36> ED HPI GENERAL MEDICAL PROBLEM - History of Present Illness INITIAL COMMENTS - FREE TEXT/NARRATIVE: Patient was signed out to me by Dr. Patel pending ultrasound and reevaluation at 7 AM I did reevaluate the patient and at the time of reevaluation his [id number] glucose was 168. The patient was sleeping comfortably and saturating well. On examination, the patient continued to have diffuse abdominal tenderness without any evidence of rebound or guarding. At this time he was being taken for ultrasound. Labs reviewed include CBC which was unremarkable. CMP which revealed hyperglycemia at 788, corrected sodium of 140. Hypochloremia at 93 and a bicarb of 28.2. UDS is negative. Coronavirus is negative. Ketones were negative. Urinalysis was negative. Lactic acid was 2.3. The patient was provided with 13 units of insulin from prior provider and provided 3 L of lactated Ringer's. Repeat glucose was found to be 420, 255, 168, and 125. Imaging reviewed: CT abdomen pelvis reveals moderate to severe left hydronephrosis with left perirenal stranding edema and fluid which could represent partial calyceal rupture. There is an apparent small soft tissue density in the distal left ureter near the UVJ. Moderate hydronephrosis with a small soft tissue density in the region of the right UVJ. Distended bladder to the level of the umbilicus. There is gallbladder sludge and possibly poorly calcified layering gallstones within the moderately distended gallbladder. Abdominal ultrasound revealed left greater than right hydronephrosis with perinephric fluid on the left otherwise unremarkable evaluation of the abdomen. Common bile duct is 4 mm and gallbladder is unremarkable with no filling defect and no sonographic Tyler sign. After returning from ultrasound we did do a bladder scan which did reveal greater than 999 mL. The patient was already straight cathed with an unknown urinary output. Therefore we did place a urinary catheter with 1.1 L of output. The catheter was clamped. At this time we did start the patient on D5 normal saline at maintenance. I reviewed the patient's prior record and reviewed multiple prior CT abdomen pelvis is all of which showed intermittent urinary bladder distention with hydronephrosis and faint layering in the gallbladder. Specifically from 09/03/2018. I did review patient's prior discharge paperwork and progress notes and it appears the patient has a history of neurogenic bladder and hydronephrosis was thought to be secondary to bladder distention. The patient was evaluated by urology prior and was to follow-up outpatient. At this time the patient had continued abdominal pain and remained vitally stable. At this time I did contact hospitalist Dr. Welch who accepted the patient for observatio n admission. DISPOSITION: Patient was admitted for observation in stable condition CONDITION: Fair PROCEDURES: None FINAL IMPRESSION(S)/DIAGNOSES: 1. Acute abdominal pain likely secondary to gastroparesis versus neurogenic bladder with distention 2. Acute on chronic hydronephrosis likely secondary to obstruction from distended bladder 3. Acute mild lactic acidosis 4. Acute hyperglycemia Moisés Olson M.D. Course - Vital Signs Last Recorded V/S: Last Vital Signs Temp 36.4 C 01/23/20 03:48 Pulse 108 H 01/23/20 08:32 Resp 17 01/23/20 07:17 BP 137/88 01/23/20 08:32 Pulse Ox 96 01/23/20 08:32 - Orders/Labs/Meds Orders: Active Orders 24 hr Category Date Time Status Admission Status [Patient Status] [ADT] Stat ADT 01/23/20 09:06 Active Blood Glucose Check, Bedside [RC] ONETIME Care 01/23/20 04:54 Active Blood Glucose Check, Bedside [RC] ONETIME Care 01/23/20 05:36 Active Blood Glucose Check, Bedside [RC] ONETIME Care 01/23/20 09:00 Active Insert Urinary Catheter [OM.PC] Q24H Care 01/23/20 06:45 Ordered Urinary Catheter Assessment [RC] ASDIRECTED Care 01/23/20 06:42 Active BASIC METABOLIC PANEL,BMP [CHEM] Stat Lab 01/23/20 09:24 Ordered CULTURE BLOOD [BC] Stat Lab 01/23/20 04:45 Received CULTURE BLOOD [BC] Stat Lab 01/23/20 04:55 Received LACTIC ACID,WHOLE BLOOD [BG] Stat Lab 01/23/20 09:24 Ordered Dextrose 5%-Normal Saline @ 75 MLS/HR(1000ml) Med 01/23/20 09:30 Ordered Dextrose 5%-0.9% NaCl [Dextrose 5%-Normal Saline] 1,000 ml IV ASDIRECTED Dextrose 50% in Water Med 01/23/20 04:54 Active 50 ml IV ASDIRECTED PRN Glucagon,Human Recombinant [GlucaGen] Med 01/23/20 04:54 Active 1 mg IM ASDIRECTED PRN Sodium Chloride 0.9% [Saline Flush] Med 01/23/20 03:39 Active 10 ml FLUSH ASDIRECTED PRN Sodium Chloride 0.9% [Saline Flush] Med 01/23/20 03:39 Active 2.5 ml FLUSH ASDIRECTED PRN Blood Culture x2 Reflex Set [OM.PC] Stat Oth 01/23/20 04:34 Ordered Saline Lock Insert [OM.PC] Stat Oth 01/23/20 03:40 Ordered Medication Orders Dextrose/Water (Dextrose 50% In Water) 50 ml IV ASDIRECTED PRN PRN Reason: Hypoglycemia Glucagon (Glucagen) 1 mg IM ASDIRECTED PRN PRN Reason: Hypoglycemia Dextrose/Sodium Chloride (Dextrose 5%-Normal Saline) 1,000 mls @ 75 mls/hr IV ASDIRECTED AUGUSTINE Sodium Chloride (Saline Flush) 2.5 ml FLUSH ASDIRECTED PRN PRN Reason: Keep Vein Open Last Admin: 01/23/20 04:07 Dose: 2.5 ml Documented by: DANIEL Sodium Chloride (Saline Flush) 10 ml FLUSH ASDIRECTED PRN PRN Reason: Keep Vein Open Last Admin: 01/23/20 04:07 Dose: 10 ml Documented by: DANIEL Labs: Laboratory Tests 01/23/20 01/23/20 01/23/20 Range/Units 04:00 04:00 04:00 WBC 5.50 (4.0-11.0) K/uL RBC 4.73 (4.50-5.90) M/uL Hgb 12.7 L (13.0-17.0) g/dL Hct 40.4 (38.0-50.0) % MCV 85.4 (80.0-98.0) fL MCH 26.8 L (27.0-32.0) pg MCHC 31.4 (31.0-37.0) g/dL RDW Std Deviation 45.6 (28.0-62.0) fl RDW Coeff of Erika 15 (11.0-15.0) % Plt Count 251 (150-400) K/uL MPV 9.80 (7.40-12.00) fL Neut % (Auto) 59.8 (48.0-80.0) % Lymph % (Auto) 36.0 (16.0-40.0) % [place] % (Auto) 2.0 (0.0-15.0) % Eos % (Auto) 1.8 (0.0-7.0) % Baso % (Auto) 0.4 (0.0-1.5) % Neut # (Auto) 3.3 (1.4-5.7) K/uL Lymph # (Auto) 2.0 (0.6-2.4) K/uL [place] # (Auto) 0.1 (0.0-0.8) K/uL Eos # (Auto) 0.1 (0.0-0.7) K/uL Baso # (Auto) 0.0 (0.0-0.1) K/uL Nucleated RBC % 0.0 /100WBC Nucleated RBCs # 0 K/uL VBG pH (7.31-7.41) VBG pCO2 (35-45) mmHG VBG pO2 (30-40) mmHG VBG HCO3 (22-30) mEq/L VBG Total CO2 (41-51) mmol/L VBG Base Excess (-3.0-3.0) Lactate (0.20-2.00) mmol/L Sodium 129 L (136-148) mmol/L Potassium 4.4 (3.5-5.1) mmol/L Chloride 93 L (98-107) mmol/L Carbon Dioxide 28.2 (21.0-32.0) mmol/L BUN 23 H (7.0-18.0) mg/dL Creatinine 1.3 (0.8-1.3) mg/dL Est Cr Clr Drug Dosing 65.76 mL/min Estimated GFR (MDRD) > 60.0 ml/min Glucose 788 H* (74-106) mg/dL POC Glucose (60-110) mg/dL Calcium 9.5 (8.5-10.1) mg/dL Magnesium 2.1 (1.8-2.4) mg/dL Total Bilirubin 0.3 (0.2-1.0) mg/dL AST 12 L (15-37) IU/L ALT 18 (14-63) IU/L Alkaline Phosphatase 108 (46-116) U/L Total Protein 9.2 H (6.4-8.2) g/dL Albumin 3.4 (3.4-5.0) g/dL Globulin 5.8 H (2.6-4.0) g/dL Albumin/Globulin Ratio 0.6 L (0.9-1.6) Lipase 93 (73-393) U/L Urine Color Urine Appearance Urine pH (5.0-8.0) Ur Specific Hye (1.001-1.035) Urine Protein (NEGATIVE) mg/dL Urine Glucose (UA) (NEGATIVE) mg/dL Urine Ketones (NEGATIVE) mg/dL Urine Occult Blood (NEGATIVE) Urine Nitrite (NEGATIVE) Urine Bilirubin (NEGATIVE) Urine Urobilinogen (<2.0) EU/dL Ur Leukocyte Esterase (NEGATIVE) Urine RBC (0-2/HPF) Urine WBC (0-5/HPF) Ur Epithelial Cells (NONE-FEW) Urine Bacteria (NEGATIVE) Urine Opiates Screen (NEGATIVE) Ur Oxycodone Screen (NEGATIVE) Urine Methadone Screen (NEGATIVE) Ur Barbiturates Screen (NEGATIVE) Ur Phencyclidine Scrn (NEGATIVE) Ur Amphetamine Screen (NEGATIVE) U Methamphetamines Scrn (NEGATIVE) U Benzodiazepines Scrn (NEGATIVE) U Cocaine Metab Screen (NEGATIVE) U Marijuana (THC) Screen (NEGATIVE) Ketones NEGATIVE (NEG) SARS-CoV-2 RNA (RICHIE) (NEGATIVE) 01/23/20 01/23/20 01/23/20 Range/Units 04:00 04:00 04:01 WBC (4.0-11.0) K/uL RBC (4.50-5.90) M/uL Hgb (13.0-17.0) g/dL Hct (38.0-50.0) % MCV (80.0-98.0) fL MCH (27.0-32.0) pg MCHC (31.0-37.0) g/dL RDW Std Deviation (28.0-62.0) fl RDW Coeff of Erika (11.0-15.0) % Plt Count (150-400) K/uL MPV (7.40-12.00) fL Neut % (Auto) (48.0-80.0) % Lymph % (Auto) (16.0-40.0) % [place] % (Auto) (0.0-15.0) % Eos % (Auto) (0.0-7.0) % Baso % (Auto) (0.0-1.5) % Neut # (Auto) (1.4-5.7) K/uL Lymph # (Auto) (0.6-2.4) K/uL [place] # (Auto) (0.0-0.8) K/uL Eos # (Auto) (0.0-0.7) K/uL Baso # (Auto) (0.0-0.1) K/uL Nucleated RBC % /100WBC Nucleated RBCs # K/uL VBG pH 7.37 (7.31-7.41) VBG pCO2 51 H (35-45) mmHG VBG pO2 26 L (30-40) mmHG VBG HCO3 29 (22-30) mEq/L VBG Total CO2 27 L (41-51) mmol/L VBG Base Excess 2.9 (-3.0-3.0) Lactate 2.3 H* (0.20-2.00) mmol/L Sodium (136-148) mmol/L Potassium (3.5-5.1) mmol/L Chloride (98-107) mmol/L Carbon Dioxide (21.0-32.0) mmol/L BUN (7.0-18.0) mg/dL Creatinine (0.8-1.3) mg/dL Est Cr Clr Drug Dosing mL/min Estimated GFR (MDRD) ml/min Glucose (74-106) mg/dL POC Glucose > 500 H (60-110) mg/dL Calcium (8.5-10.1) mg/dL Magnesium (1.8-2.4) mg/dL Total Bilirubin (0.2-1.0) mg/dL AST (15-37) IU/L ALT (14-63) IU/L Alkaline Phosphatase (46-116) U/L Total Protein (6.4-8.2) g/dL Albumin (3.4-5.0) g/dL Globulin (2.6-4.0) g/dL Albumin/Globulin Ratio (0.9-1.6) Lipase (73-393) U/L Urine Color Urine Appearance Urine pH (5.0-8.0) Ur Specific Hye (1.001-1.035) Urine Protein (NEGATIVE) mg/dL Urine Glucose (UA) (NEGATIVE) mg/dL Urine Ketones (NEGATIVE) mg/dL Urine Occult Blood (NEGATIVE) Urine Nitrite (NEGATIVE) Urine Bilirubin (NEGATIVE) Urine Urobilinogen (<2.0) EU/dL Ur Leukocyte Esterase (NEGATIVE) Urine RBC (0-2/HPF) Urine WBC (0-5/HPF) Ur Epithelial Cells (NONE-FEW) Urine Bacteria (NEGATIVE) Urine Opiates Screen (NEGATIVE) Ur Oxycodone Screen (NEGATIVE) Urine Methadone Screen (NEGATIVE) Ur Barbiturates Screen (NEGATIVE) Ur Phencyclidine Scrn (NEGATIVE) Ur Amphetamine Screen (NEGATIVE) U Methamphetamines Scrn (NEGATIVE) U Benzodiazepines Scrn (NEGATIVE) U Cocaine Metab Screen (NEGATIVE) U Marijuana (THC) Screen (NEGATIVE) Ketones (NEG) SARS-CoV-2 RNA (RICHIE) (NEGATIVE) 01/23/20 01/23/20 01/23/20 Range/Units 04:10 05:35 06:32 WBC (4.0-11.0) K/uL RBC (4.50-5.90) M/uL Hgb (13.0-17.0) g/dL Hct (38.0-50.0) % MCV (80.0-98.0) fL MCH (27.0-32.0) pg MCHC (31.0-37.0) g/dL RDW Std Deviation (28.0-62.0) fl RDW Coeff of Erika (11.0-15.0) % Plt Count (150-400) K/uL MPV (7.40-12.00) fL Neut % (Auto) (48.0-80.0) % Lymph % (Auto) (16.0-40.0) % [place] % (Auto) (0.0-15.0) % Eos % (Auto) (0.0-7.0) % Baso % (Auto) (0.0-1.5) % Neut # (Auto) (1.4-5.7) K/uL Lymph # (Auto) (0.6-2.4) K/uL [place] # (Auto) (0.0-0.8) K/uL Eos # (Auto) (0.0-0.7) K/uL Baso # (Auto) (0.0-0.1) K/uL Nucleated RBC % /100WBC Nucleated RBCs # K/uL VBG pH (7.31-7.41) VBG pCO2 (35-45) mmHG VBG pO2 (30-40) mmHG VBG HCO3 (22-30) mEq/L VBG Total CO2 (41-51) mmol/L VBG Base Excess (-3.0-3.0) Lactate (0.20-2.00) mmol/L Sodium (136-148) mmol/L Potassium (3.5-5.1) mmol/L Chloride (98-107) mmol/L Carbon Dioxide (21.0-32.0) mmol/L BUN (7.0-18.0) mg/dL Creatinine (0.8-1.3) mg/dL Est Cr Clr Drug Dosing mL/min Estimated GFR (MDRD) ml/min Glucose (74-106) mg/dL POC Glucose 420 H 255 H (60-110) mg/dL Calcium (8.5-10.1) mg/dL Magnesium (1.8-2.4) mg/dL Total Bilirubin (0.2-1.0) mg/dL AST (15-37) IU/L ALT (14-63) IU/L Alkaline Phosphatase (46-116) U/L Total Protein (6.4-8.2) g/dL Albumin (3.4-5.0) g/dL Globulin (2.6-4.0) g/dL Albumin/Globulin Ratio (0.9-1.6) Lipase (73-393) U/L Urine Color Urine Appearance Urine pH (5.0-8.0) Ur Specific Hye (1.001-1.035) Urine Protein (NEGATIVE) mg/dL Urine Glucose (UA) (NEGATIVE) mg/dL Urine Ketones (NEGATIVE) mg/dL Urine Occult Blood (NEGATIVE) Urine Nitrite (NEGATIVE) Urine Bilirubin (NEGATIVE) Urine Urobilinogen (<2.0) EU/dL Ur Leukocyte Esterase (NEGATIVE) Urine RBC (0-2/HPF) Urine WBC (0-5/HPF) Ur Epithelial Cells (NONE-FEW) Urine Bacteria (NEGATIVE) Urine Opiates Screen (NEGATIVE) Ur Oxycodone Screen (NEGATIVE) Urine Methadone Screen (NEGATIVE) Ur Barbiturates Screen (NEGATIVE) Ur Phencyclidine Scrn (NEGATIVE) Ur Amphetamine Screen (NEGATIVE) U Methamphetamines Scrn (NEGATIVE) U Benzodiazepines Scrn (NEGATIVE) U Cocaine Metab Screen (NEGATIVE) U Marijuana (THC) Screen (NEGATIVE) Ketones (NEG) SARS-CoV-2 RNA (RICHIE) NEGATIVE (NEGATIVE) 01/23/20 01/23/20 01/23/20 Range/Units 06:55 06:55 07:52 WBC (4.0-11.0) K/uL RBC (4.50-5.90) M/uL Hgb (13.0-17.0) g/dL Hct (38.0-50.0) % MCV (80.0-98.0) fL MCH (27.0-32.0) pg MCHC (31.0-37.0) g/dL RDW Std Deviation (28.0-62.0) fl RDW Coeff of Erika (11.0-15.0) % Plt Count (150-400) K/uL MPV (7.40-12.00) fL Neut % (Auto) (48.0-80.0) % Lymph % (Auto) (16.0-40.0) % [place] % (Auto) (0.0-15.0) % Eos % (Auto) (0.0-7.0) % Baso % (Auto) (0.0-1.5) % Neut # (Auto) (1.4-5.7) K/uL Lymph # (Auto) (0.6-2.4) K/uL [place] # (Auto) (0.0-0.8) K/uL Eos # (Auto) (0.0-0.7) K/uL Baso # (Auto) (0.0-0.1) K/uL Nucleated RBC % /100WBC Nucleated RBCs # K/uL VBG pH (7.31-7.41) VBG pCO2 (35-45) mmHG VBG pO2 (30-40) mmHG VBG HCO3 (22-30) mEq/L VBG Total CO2 (41-51) mmol/L VBG Base Excess (-3.0-3.0) Lactate (0.20-2.00) mmol/L Sodium (136-148) mmol/L Potassium (3.5-5.1) mmol/L Chloride (98-107) mmol/L Carbon Dioxide (21.0-32.0) mmol/L BUN (7.0-18.0) mg/dL Creatinine (0.8-1.3) mg/dL Est Cr Clr Drug Dosing mL/min Estimated GFR (MDRD) ml/min Glucose (74-106) mg/dL POC Glucose 168 H (60-110) mg/dL Calcium (8.5-10.1) mg/dL Magnesium (1.8-2.4) mg/dL Total Bilirubin (0.2-1.0) mg/dL AST (15-37) IU/L ALT (14-63) IU/L Alkaline Phosphatase (46-116) U/L Total Protein (6.4-8.2) g/dL Albumin (3.4-5.0) g/dL Globulin (2.6-4.0) g/dL Albumin/Globulin Ratio (0.9-1.6) Lipase (73-393) U/L Urine Color YELLOW Urine Appearance SLT CLOUDY Urine pH 6.5 (5.0-8.0) Ur Specific Hye 1.010 (1.001-1.035) Urine Protein NEGATIVE (NEGATIVE) mg/dL Urine Glucose (UA) >=1000 (NEGATIVE) mg/dL Urine Ketones NEGATIVE (NEGATIVE) mg/dL Urine Occult Blood TRACE-INTACT H (NEGATIVE) Urine Nitrite NEGATIVE (NEGATIVE) Urine Bilirubin NEGATIVE (NEGATIVE) Urine Urobilinogen 0.2 (<2.0) EU/dL Ur Leukocyte Esterase NEGATIVE (NEGATIVE) Urine RBC 0-2 (0-2/HPF) Urine WBC 0-1 (0-5/HPF) Ur Epithelial Cells RARE (NONE-FEW) Urine Bacteria 3+ H (NEGATIVE) Urine Opiates Screen NEGATIVE (NEGATIVE) Ur Oxycodone Screen NEGATIVE (NEGATIVE) Urine Methadone Screen NEGATIVE (NEGATIVE) Ur Barbiturates Screen NEGATIVE (NEGATIVE) Ur Phencyclidine Scrn NEGATIVE (NEGATIVE) Ur Amphetamine Screen NEGATIVE (NEGATIVE) U Methamphetamines Scrn NEGATIVE (NEGATIVE) U Benzodiazepines Scrn NEGATIVE (NEGATIVE) U Cocaine Metab Screen NEGATIVE (NEGATIVE) U Marijuana (THC) Screen NEGATIVE (NEGATIVE) Ketones (NEG) SARS-CoV-2 RNA (RICHIE) (NEGATIVE) 01/23/20 Range/Units 09:03 WBC (4.0-11.0) K/uL RBC (4.50-5.90) M/uL Hgb (13.0-17.0) g/dL Hct (38.0-50.0) % MCV (80.0-98.0) fL MCH (27.0-32.0) pg MCHC (31.0-37.0) g/dL RDW Std Deviation (28.0-62.0) fl RDW Coeff of Erika (11.0-15.0) % Plt Count (150-400) K/uL MPV (7.40-12.00) fL Neut % (Auto) (48.0-80.0) % Lymph % (Auto) (16.0-40.0) % [place] % (Auto) (0.0-15.0) % Eos % (Auto) (0.0-7.0) % Baso % (Auto) (0.0-1.5) % Neut # (Auto) (1.4-5.7) K/uL Lymph # (Auto) (0.6-2.4) K/uL [place] # (Auto) (0.0-0.8) K/uL Eos # (Auto) (0.0-0.7) K/uL Baso # (Auto) (0.0-0.1) K/uL Nucleated RBC % /100WBC Nucleated RBCs # K/uL VBG pH (7.31-7.41) VBG pCO2 (35-45) mmHG VBG pO2 (30-40) mmHG VBG HCO3 (22-30) mEq/L VBG Total CO2 (41-51) mmol/L VBG Base Excess (-3.0-3.0) Lactate (0.20-2.00) mmol/L Sodium (136-148) mmol/L Potassium (3.5-5.1) mmol/L Chloride (98-107) mmol/L Carbon Dioxide (21.0-32.0) mmol/L BUN (7.0-18.0) mg/dL Creatinine (0.8-1.3) mg/dL Est Cr Clr Drug Dosing mL/min Estimated GFR (MDRD) ml/min Glucose (74-106) mg/dL POC Glucose 125 H (60-110) mg/dL Calcium (8.5-10.1) mg/dL Magnesium (1.8-2.4) mg/dL Total Bilirubin (0.2-1.0) mg/dL AST (15-37) IU/L ALT (14-63) IU/L Alkaline Phosphatase (46-116) U/L Total Protein (6.4-8.2) g/dL Albumin (3.4-5.0) g/dL Globulin (2.6-4.0) g/dL Albumin/Globulin Ratio (0.9-1.6) Lipase (73-393) U/L Urine Color Urine Appearance Urine pH (5.0-8.0) Ur Specific Hye (1.001-1.035) Urine Protein (NEGATIVE) mg/dL Urine Glucose (UA) (NEGATIVE) mg/dL Urine Ketones (NEGATIVE) mg/dL Urine Occult Blood (NEGATIVE) Urine Nitrite (NEGATIVE) Urine Bilirubin (NEGATIVE) Urine Urobilinogen (<2.0) EU/dL Ur Leukocyte Esterase (NEGATIVE) Urine RBC (0-2/HPF) Urine WBC (0-5/HPF) Ur Epithelial Cells (NONE-FEW) Urine Bacteria (NEGATIVE) Urine Opiates Screen (NEGATIVE) Ur Oxycodone Screen (NEGATIVE) Urine Methadone Screen (NEGATIVE) Ur Barbiturates Screen (NEGATIVE) Ur Phencyclidine Scrn (NEGATIVE) Ur Amphetamine Screen (NEGATIVE) U Methamphetamines Scrn (NEGATIVE) U Benzodiazepines Scrn (NEGATIVE) U Cocaine Metab Screen (NEGATIVE) U Marijuana (THC) Screen (NEGATIVE) Ketones (NEG) SARS-CoV-2 RNA (RICHIE) (NEGATIVE) Meds: Medications Generic Name Dose Route Start Last Admin Trade Name Freq PRN Reason Stop Dose Admin Dextrose/Water 50 ml 01/23/20 04:54 Dextrose 50% In Water IV ASDIRECTED PRN Hypoglycemia Glucagon 1 mg 01/23/20 04:54 Glucagen IM ASDIRECTED PRN Hypoglycemia Dextrose/Sodium Chloride 1,000 mls @ 75 mls/hr 01/23/20 09:30 Dextrose 5%-Normal Saline IV ASDIRECTED AUGUSTINE Sodium Chloride 2.5 ml 01/23/20 03:39 01/23/20 04:07 Saline Flush FLUSH 2.5 ml ASDIRECTED PRN Administration Keep Vein Open Sodium Chloride 10 ml 01/23/20 03:39 01/23/20 04:07 Saline Flush FLUSH 10 ml ASDIRECTED PRN Administration Keep Vein Open Discontinued Medications Generic Name Dose Route Start Last Admin Trade Name Freq PRN Reason Stop Dose Admin Diphenhydramine HCl 50 mg 01/23/20 04:26 01/23/20 04:37 Benadryl IVPUSH 01/23/20 04:27 50 mg ONETIME ONE Administration Haloperidol Lactate 3 mg 01/23/20 03:55 01/23/20 04:03 Haldol IM 01/23/20 03:56 3 mg ONETIME ONE Administration Hydromorphone HCl 1 mg 01/23/20 04:26 01/23/20 04:37 Dilaudid IVPUSH 01/23/20 04:27 1 mg ONETIME ONE Administration Lactated Ringer's 1,000 mls @ 999 mls/hr 01/23/20 03:39 01/23/20 04:04 Ringers, Lactated IV 01/23/20 04:39 999 mls/hr .BOLUS ONE Administration Lactated Ringer's 1,000 mls @ 999 mls/hr 01/23/20 04:26 01/23/20 04:39 Ringers, Lactated IV 01/23/20 05:26 999 mls/hr .BOLUS ONE Administration Pantoprazole Sodium 40 mg/ 20 mls @ 420 mls/hr 01/23/20 04:27 01/23/20 04:36 Sodium Chloride IVPUSH 01/23/20 04:29 420 mls/hr ONETIME ONE Administration Lactated Ringer's 1,000 mls @ 999 mls/hr 01/23/20 05:55 01/23/20 06:02 Ringers, Lactated IV 01/23/20 06:55 999 mls/hr .BOLUS ONE Administration Insulin Human Regular 8 unit 01/23/20 04:54 01/23/20 05:14 Novolin R IVPUSH 01/23/20 04:55 8 unit ONETIME ONE Administration Protocol Insulin Human Regular 5 unit 01/23/20 05:36 01/23/20 05:44 Novolin R IVPUSH 01/23/20 05:37 5 unit ONETIME ONE Administration Protocol Metoclopramide HCl 10 mg 01/23/20 04:26 01/23/20 04:39 Reglan IVPUSH 01/23/20 04:27 10 mg ONETIME ONE Administration Departure - Departure Time of Disposition: 09:06 Condition: Fair Sepsis Event Note (ED) - Focused Exam Vital Signs: Vital Signs Temp Pulse Resp BP Pulse Ox 01/23/20 08:32 108 H 137/88 96 01/23/20 08:02 110 H 120/82 98 01/23/20 07:32 109 H 146/90 H 100 01/23/20 07:17 108 H 17 135/90 99 01/23/20 07:02 111 H 16 142/95 H 99 01/23/20 06:27 110 H 14 152/96 H 98 01/23/20 05:47 112 H 144/88 H 98 01/23/20 04:30 113 H 139/91 H 98 01/23/20 03:48 36.4 C 95 16 152/96 H 100 - My Orders Last 24 Hours: My Active Orders 01/23/20 09:00 Blood Glucose Check, Bedside [RC] ONETIME 01/23/20 09:06 Admission Status [Patient Status] [ADT] Stat 01/23/20 09:24 BASIC METABOLIC PANEL,BMP [CHEM] Stat LACTIC ACID,WHOLE BLOOD [BG] Stat 01/23/20 09:30 Dextrose 5%-Normal Saline @ 75 MLS/HR(1000ml) Dextrose 5%-0.9% NaCl [Dextrose 5%-Normal Saline] 1,000 ml IV ASDIRECTED - Assessment/Plan Last 24 Hours: My Active Orders 01/23/20 09:00 Blood Glucose Check, Bedside [RC] ONETIME 01/23/20 09:06 Admission Status [Patient Status] [ADT] Stat 01/23/20 09:24 BASIC METABOLIC PANEL,BMP [CHEM] Stat LACTIC ACID,WHOLE BLOOD [BG] Stat 01/23/20 09:30 Dextrose 5%-Normal Saline @ 75 MLS/HR(1000ml) Dextrose 5%-0.9% NaCl [Dextrose 5%-Normal Saline] 1,000 ml IV ASDIRECTED
[2020-01-23] MEDS ORDERED: diphenhydrAMINE 50 MG/ML SDV IVPUSH ONE (04:26)
[2020-01-23] MEDS ORDERED: Metoclopramide 10 MG/2 ML SDV IVPUSH ONE (04:26)
[2020-01-23] MEDS ORDERED: HYDROmorphone 2 MG/ML Syringe IVPUSH ONE (04:26)
[2020-01-23] MEDS ORDERED: Pantoprazole 40 MG in Sodium Chloride 0.9% 20 ML IVPUSH ONE (04:27)
[2020-01-23 04:31] LABS: BLOOD UREA NITROGEN,BUN 23 mg/dL (7.0-18.0); CARBON DIOXIDE,CO2 28.2 mmol/L (21.0-32.0); CHLORIDE,CL 93 mmol/L (98-107); LIPASE 93 U/L (73-393); POTASSIUM,K 4.4 mmol/L (3.5-5.1); SODIUM,NA 129 mmol/L (136-148)
[2020-01-23 04:47] LABS: GLUCOSE RANDOM 788 mg/dL (74-106)
[2020-01-23] MEDS ORDERED: Insulin Regular, Human 100 Units/ML 10 ML Vial IVPUSH ONE ×2 (04:54→05:36)
[2020-01-23] MEDS ORDERED: Glucagon,Human Recombinant 1 MG Vial IM PRN ×4 (04:54→20:19)
[2020-01-23] MEDS ORDERED: 50% Dextrose in Water 50 ML Syringe IV PRN ×5 (04:54→20:19)
--- NOTE | 2020-01-23 06:33 | CT ---
INDICATION: Left-sided abdominal pain with nausea and vomiting. COMPARISON: CT abdomen and pelvis June 15, 2019. TECHNIQUE: CT abdomen and pelvis without intravenous or oral contrast; coronal and sagittal reformats. FINDINGS: Markedly distended urinary bladder measuring 14 cm in the [id number] dimension, 17.8 cm in the vertical dimension and 11.3 cm in the AP dimension with thickening of the bladder wall as well as bilateral hydronephrosis and hydro ureters with extensive perinephric stranding surrounding the left kidney. This would most likely be secondary to bladder outlet obstruction. No focal hepatic or splenic pathology. No pancreatic pathology. Gallbladder is unremarkable. No adrenal pathology. No kidney stones are identified. Copious amounts of retained stool identified in the colon. On the previous study from June 15, 2019, patient had emphysematous cystitis. IMPRESSION: 1. Markedly distended urinary bladder with bilateral hydronephrosis and hydroureters more on the left with extensive perinephric stranding on the left side. 2. No kidney stones on either side. 3. Copious amounts of retained stool in the colon. Please note that all CT scans at this facility use dose modulation, iterative reconstruction, and/or weight-based dosing when appropriate to reduce radiation dose to as low as reasonably achievable. Dictated by Wally Marcos MD @ Jan 24 2020 1:49PM Signed by Dr. Wally Marcos @ Jan 24 2020 1:55PM
--- NOTE | 2020-01-23 08:52 | US ---
INDICATION: Epigastric pain. COMPARISON: CT same date. FINDINGS: Aorta is non aneurysmal. Spleen size is normal. No ascites. Moderate hydronephrosis left kidney. 14 cm length of the kidney with normal cortical thickness and echogenicity. Small amount of perinephric fluid. Liver is unremarkable. Inferior vena cava is patent. Upper normal liver size. Common bile duct is 4 mm at the kourtney hepatis. Gallbladder is unremarkable with no filling defect and no sonographic Tyler`s sign. Mild right hydronephrosis. Right kidney is 11 cm in length. Normal cortical thickness and echogenicity. Visualized pancreas is unremarkable although mostly obscured. IMPRESSION: 1. Left greater right hydronephrosis. Perinephric fluid on the left. 2. Otherwise unremarkable evaluation of the abdomen. Dictated by Pb Casillas MD @ Jan 23 2020 8:47AM Signed by Dr. Pb Casillas @ Jan 23 2020 8:51AM
[2020-01-23] MEDS ORDERED: Dextrose 5%-0.9% NaCl 1,000 ML IV SCH ×2 (09:30→19:30)
[2020-01-23 10:10] LABS: BLOOD UREA NITROGEN,BUN 20 mg/dL (7.0-18.0); CARBON DIOXIDE,CO2 27.1 mmol/L (21.0-32.0); CHLORIDE,CL 104 mmol/L (98-107); GLUCOSE RANDOM 120 mg/dL (74-106); POTASSIUM,K 3.1 mmol/L (3.5-5.1); SODIUM,NA 139 mmol/L (136-148)
[2020-01-23] MEDS ORDERED: Potassium Chloride Riders 40 MEQ in Premix Bag 1 BAG IV ONE (10:22)
--- NOTE | 2020-01-23 10:28 | PCM.HP.2 ---
H&P History of Present Illness - General Date of Service: 01/23/20 Admit Problem/Dx: Admission Diagnosis/Problem Admission Diagnosis/Problem Abdominal pain - History of Present Illness Initial Comments - Free Text/Narative: 24 yo male with pmh of DM, gastroparesis, neurogenic bladder, opiod abuse, who presents with one day history of nasuea, vomiting and abdominal pain. PAtient reports he has been taking his insulin as directed. He denies any fevers, or shortness of breath. In the ED he was noted to have a blood glucose of 788. He had no anion gap. Clements was placed in the ED. CT scan of abdomen showed distended bladder, left hydronephrosis and stranding edema. Stomach Pain Score (Numeric/FACES): 7 - Related Data Allergies/Adverse Reactions: Allergies Allergy/AdvReac Type Severity Reaction Status Date / Time No Known Allergies Allergy Verified 01/23/20 03:52 Home Medications: Home Meds Insulin Aspart [NovoLOG] 5 units SUBCUT TIDAC 07/23/18 [History] Buprenorphine HCl/Naloxone HCl [Zubsolv 5.7-1.4 mg Tablet Sl] 1 each SL TID 12/18/18 [History] Insulin Glarg,Human.Rec.Analog [Lantus] 40 unit SUBCUT DAILY 12/18/18 [History] Past Medical History - Past Health History Medical/Surgical History: Denies Medical/Surgical History HEENT History: Reports: Other (See Below) Other HEENT History: ear ache, broken and missing teeth Cardiovascular History: Reports: None Respiratory History: Reports: None Gastrointestinal History: Reports: Irritable Bowel Syndrome Other Gastrointestinal History: gastroparesis Genitourinary History: Reports: Pyelonephritis, Other (See Below) Other Genitourinary History: hydronephrosis, neurogenic bladder Musculoskeletal History: Reports: Fracture Other Musculoskeletal History: Elbow long time ago Neurological History: Reports: None Psychiatric History: Reports: Anxiety, Depression Endocrine/Metabolic History: Reports: Diabetes, Type I Other Endocrine/Metabolic History: non-compliant to DM medications 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 Hematologic History: Reports: None Immunologic History: Reports: None Oncologic (Cancer) History: Reports: None Dermatologic History: Reports: Other (See Below) Other Dermatologic History: dry itchy skin - Infectious Disease History Infectious Disease History: Reports: None - Past Surgical History HEENT Surgical History: Reports: None GI Surgical History: Reports: None Male Surgical History: Reports: None Endocrine Surgical History: Reports: None Musculoskeletal Surgical History: Reports: None Dermatological Surgical History: Reports: None Social & Family History - Family History Family Medical History: No Pertinent Family History OBGYN: Reports: Endocrine/Metabolic: Reports: Diabetes, Type I, Diabetes, type II - Tobacco Use Tobacco Use Status *Q: Never Tobacco User - Caffeine Use Caffeine Use: Reports: None - Recreational Drug Use Recreational Drug Use: No - Living Situation & Occupation Living situation: Reports: Single, with Family Occupation: Unemployed H&P Review of Systems - Review of Systems: Review Of Systems: Comprehensive ROS is negative, except as noted in HPI. Exam - Exam Exam: See Below - Vital Signs Vital Signs: Last Vital Signs Temp 36.4 C 01/23/20 03:48 Pulse 108 H 01/23/20 08:32 Resp 17 01/23/20 07:17 BP 137/88 01/23/20 08:32 Pulse Ox 96 01/23/20 08:32 Weight: 52.163 kg - Exam General: Alert, Oriented HEENT: Mucosa Moist & Fisher Lungs: Clear to Auscultation, Normal Respiratory Effort Cardiovascular: Regular Rate, Regular Rhythm GI/Abdominal Exam: Normal Bowel Sounds, Soft, Non-Tender, No Distention. No: Distended, Rigid, Rebound Back Exam: CVA Tenderness (L), CVA Tenderness (R) Extremities: Non-Tender, No Pedal Edema Skin: Warm, Dry, Intact - Patient Data Lab Results Last 24 hrs: Laboratory Results - last 24 hr 01/23/20 01/23/20 01/23/20 Range/Units 04:00 04:00 04:00 WBC 5.50 (4.0-11.0) K/uL RBC 4.73 (4.50-5.90) M/uL Hgb 12.7 L (13.0-17.0) g/dL Hct 40.4 (38.0-50.0) % MCV 85.4 (80.0-98.0) fL MCH 26.8 L (27.0-32.0) pg MCHC 31.4 (31.0-37.0) g/dL RDW Std Deviation 45.6 (28.0-62.0) fl RDW Coeff of Erika 15 (11.0-15.0) % Plt Count 251 (150-400) K/uL MPV 9.80 (7.40-12.00) fL Neut % (Auto) 59.8 (48.0-80.0) % Lymph % (Auto) 36.0 (16.0-40.0) % Hettinger % (Auto) 2.0 (0.0-15.0) % Eos % (Auto) 1.8 (0.0-7.0) % Baso % (Auto) 0.4 (0.0-1.5) % Neut # (Auto) 3.3 (1.4-5.7) K/uL Lymph # (Auto) 2.0 (0.6-2.4) K/uL Hettinger # (Auto) 0.1 (0.0-0.8) K/uL Eos # (Auto) 0.1 (0.0-0.7) K/uL Baso # (Auto) 0.0 (0.0-0.1) K/uL Nucleated RBC % 0.0 /100WBC Nucleated RBCs # 0 K/uL VBG pH (7.31-7.41) VBG pCO2 (35-45) mmHG VBG pO2 (30-40) mmHG VBG HCO3 (22-30) mEq/L VBG Total CO2 (41-51) mmol/L VBG Base Excess (-3.0-3.0) Lactate (0.20-2.00) mmol/L Sodium 129 L (136-148) mmol/L Potassium 4.4 (3.5-5.1) mmol/L Chloride 93 L (98-107) mmol/L Carbon Dioxide 28.2 (21.0-32.0) mmol/L BUN 23 H (7.0-18.0) mg/dL Creatinine 1.3 (0.8-1.3) mg/dL Est Cr Clr Drug Dosing 65.76 mL/min Estimated GFR (MDRD) > 60.0 ml/min Glucose 788 H* (74-106) mg/dL POC Glucose (60-110) mg/dL Calcium 9.5 (8.5-10.1) mg/dL Magnesium 2.1 (1.8-2.4) mg/dL Total Bilirubin 0.3 (0.2-1.0) mg/dL AST 12 L (15-37) IU/L ALT 18 (14-63) IU/L Alkaline Phosphatase 108 (46-116) U/L Total Protein 9.2 H (6.4-8.2) g/dL Albumin 3.4 (3.4-5.0) g/dL Globulin 5.8 H (2.6-4.0) g/dL Albumin/Globulin Ratio 0.6 L (0.9-1.6) Lipase 93 (73-393) U/L Urine Color Urine Appearance Urine pH (5.0-8.0) Ur Specific Guffey (1.001-1.035) Urine Protein (NEGATIVE) mg/dL Urine Glucose (UA) (NEGATIVE) mg/dL Urine Ketones (NEGATIVE) mg/dL Urine Occult Blood (NEGATIVE) Urine Nitrite (NEGATIVE) Urine Bilirubin (NEGATIVE) Urine Urobilinogen (<2.0) EU/dL Ur Leukocyte Esterase (NEGATIVE) Urine RBC (0-2/HPF) Urine WBC (0-5/HPF) Ur Epithelial Cells (NONE-FEW) Urine Bacteria (NEGATIVE) Urine Opiates Screen (NEGATIVE) Ur Oxycodone Screen (NEGATIVE) Urine Methadone Screen (NEGATIVE) Ur Barbiturates Screen (NEGATIVE) Ur Phencyclidine Scrn (NEGATIVE) Ur Amphetamine Screen (NEGATIVE) U Methamphetamines Scrn (NEGATIVE) U Benzodiazepines Scrn (NEGATIVE) U Cocaine Metab Screen (NEGATIVE) U Marijuana (THC) Screen (NEGATIVE) Ketones NEGATIVE (NEG) SARS-CoV-2 RNA (RICHIE) (NEGATIVE) 01/23/20 01/23/20 01/23/20 Range/Units 04:00 04:00 04:01 WBC (4.0-11.0) K/uL RBC (4.50-5.90) M/uL Hgb (13.0-17.0) g/dL Hct (38.0-50.0) % MCV (80.0-98.0) fL MCH (27.0-32.0) pg MCHC (31.0-37.0) g/dL RDW Std Deviation (28.0-62.0) fl RDW Coeff of Erika (11.0-15.0) % Plt Count (150-400) K/uL MPV (7.40-12.00) fL Neut % (Auto) (48.0-80.0) % Lymph % (Auto) (16.0-40.0) % Hettinger % (Auto) (0.0-15.0) % Eos % (Auto) (0.0-7.0) % Baso % (Auto) (0.0-1.5) % Neut # (Auto) (1.4-5.7) K/uL Lymph # (Auto) (0.6-2.4) K/uL Hettinger # (Auto) (0.0-0.8) K/uL Eos # (Auto) (0.0-0.7) K/uL Baso # (Auto) (0.0-0.1) K/uL Nucleated RBC % /100WBC Nucleated RBCs # K/uL VBG pH 7.37 (7.31-7.41) VBG pCO2 51 H (35-45) mmHG VBG pO2 26 L (30-40) mmHG VBG HCO3 29 (22-30) mEq/L VBG Total CO2 27 L (41-51) mmol/L VBG Base Excess 2.9 (-3.0-3.0) Lactate 2.3 H* (0.20-2.00) mmol/L Sodium (136-148) mmol/L Potassium (3.5-5.1) mmol/L Chloride (98-107) mmol/L Carbon Dioxide (21.0-32.0) mmol/L BUN (7.0-18.0) mg/dL Creatinine (0.8-1.3) mg/dL Est Cr Clr Drug Dosing mL/min Estimated GFR (MDRD) ml/min Glucose (74-106) mg/dL POC Glucose > 500 H (60-110) mg/dL Calcium (8.5-10.1) mg/dL Magnesium (1.8-2.4) mg/dL Total Bilirubin (0.2-1.0) mg/dL AST (15-37) IU/L ALT (14-63) IU/L Alkaline Phosphatase (46-116) U/L Total Protein (6.4-8.2) g/dL Albumin (3.4-5.0) g/dL Globulin (2.6-4.0) g/dL Albumin/Globulin Ratio (0.9-1.6) Lipase (73-393) U/L Urine Color Urine Appearance Urine pH (5.0-8.0) Ur Specific Guffey (1.001-1.035) Urine Protein (NEGATIVE) mg/dL Urine Glucose (UA) (NEGATIVE) mg/dL Urine Ketones (NEGATIVE) mg/dL Urine Occult Blood (NEGATIVE) Urine Nitrite (NEGATIVE) Urine Bilirubin (NEGATIVE) Urine Urobilinogen (<2.0) EU/dL Ur Leukocyte Esterase (NEGATIVE) Urine RBC (0-2/HPF) Urine WBC (0-5/HPF) Ur Epithelial Cells (NONE-FEW) Urine Bacteria (NEGATIVE) Urine Opiates Screen (NEGATIVE) Ur Oxycodone Screen (NEGATIVE) Urine Methadone Screen (NEGATIVE) Ur Barbiturates Screen (NEGATIVE) Ur Phencyclidine Scrn (NEGATIVE) Ur Amphetamine Screen (NEGATIVE) U Methamphetamines Scrn (NEGATIVE) U Benzodiazepines Scrn (NEGATIVE) U Cocaine Metab Screen (NEGATIVE) U Marijuana (THC) Screen (NEGATIVE) Ketones (NEG) SARS-CoV-2 RNA (RICHIE) (NEGATIVE) 01/23/20 01/23/20 01/23/20 Range/Units 04:10 05:35 06:32 WBC (4.0-11.0) K/uL RBC (4.50-5.90) M/uL Hgb (13.0-17.0) g/dL Hct (38.0-50.0) % MCV (80.0-98.0) fL MCH (27.0-32.0) pg MCHC (31.0-37.0) g/dL RDW Std Deviation (28.0-62.0) fl RDW Coeff of Erika (11.0-15.0) % Plt Count (150-400) K/uL MPV (7.40-12.00) fL Neut % (Auto) (48.0-80.0) % Lymph % (Auto) (16.0-40.0) % Hettinger % (Auto) (0.0-15.0) % Eos % (Auto) (0.0-7.0) % Baso % (Auto) (0.0-1.5) % Neut # (Auto) (1.4-5.7) K/uL Lymph # (Auto) (0.6-2.4) K/uL Hettinger # (Auto) (0.0-0.8) K/uL Eos # (Auto) (0.0-0.7) K/uL Baso # (Auto) (0.0-0.1) K/uL Nucleated RBC % /100WBC Nucleated RBCs # K/uL VBG pH (7.31-7.41) VBG pCO2 (35-45) mmHG VBG pO2 (30-40) mmHG VBG HCO3 (22-30) mEq/L VBG Total CO2 (41-51) mmol/L VBG Base Excess (-3.0-3.0) Lactate (0.20-2.00) mmol/L Sodium (136-148) mmol/L Potassium (3.5-5.1) mmol/L Chloride (98-107) mmol/L Carbon Dioxide (21.0-32.0) mmol/L BUN (7.0-18.0) mg/dL Creatinine (0.8-1.3) mg/dL Est Cr Clr Drug Dosing mL/min Estimated GFR (MDRD) ml/min Glucose (74-106) mg/dL POC Glucose 420 H 255 H (60-110) mg/dL Calcium (8.5-10.1) mg/dL Magnesium (1.8-2.4) mg/dL Total Bilirubin (0.2-1.0) mg/dL AST (15-37) IU/L ALT (14-63) IU/L Alkaline Phosphatase (46-116) U/L Total Protein (6.4-8.2) g/dL Albumin (3.4-5.0) g/dL Globulin (2.6-4.0) g/dL Albumin/Globulin Ratio (0.9-1.6) Lipase (73-393) U/L Urine Color Urine Appearance Urine pH (5.0-8.0) Ur Specific Guffey (1.001-1.035) Urine Protein (NEGATIVE) mg/dL Urine Glucose (UA) (NEGATIVE) mg/dL Urine Ketones (NEGATIVE) mg/dL Urine Occult Blood (NEGATIVE) Urine Nitrite (NEGATIVE) Urine Bilirubin (NEGATIVE) Urine Urobilinogen (<2.0) EU/dL Ur Leukocyte Esterase (NEGATIVE) Urine RBC (0-2/HPF) Urine WBC (0-5/HPF) Ur Epithelial Cells (NONE-FEW) Urine Bacteria (NEGATIVE) Urine Opiates Screen (NEGATIVE) Ur Oxycodone Screen (NEGATIVE) Urine Methadone Screen (NEGATIVE) Ur Barbiturates Screen (NEGATIVE) Ur Phencyclidine Scrn (NEGATIVE) Ur Amphetamine Screen (NEGATIVE) U Methamphetamines Scrn (NEGATIVE) U Benzodiazepines Scrn (NEGATIVE) U Cocaine Metab Screen (NEGATIVE) U Marijuana (THC) Screen (NEGATIVE) Ketones (NEG) SARS-CoV-2 RNA (RICHIE) NEGATIVE (NEGATIVE) 01/23/20 01/23/20 01/23/20 Range/Units 06:55 06:55 07:52 WBC (4.0-11.0) K/uL RBC (4.50-5.90) M/uL Hgb (13.0-17.0) g/dL Hct (38.0-50.0) % MCV (80.0-98.0) fL MCH (27.0-32.0) pg MCHC (31.0-37.0) g/dL RDW Std Deviation (28.0-62.0) fl RDW Coeff of Erika (11.0-15.0) % Plt Count (150-400) K/uL MPV (7.40-12.00) fL Neut % (Auto) (48.0-80.0) % Lymph % (Auto) (16.0-40.0) % Hettinger % (Auto) (0.0-15.0) % Eos % (Auto) (0.0-7.0) % Baso % (Auto) (0.0-1.5) % Neut # (Auto) (1.4-5.7) K/uL Lymph # (Auto) (0.6-2.4) K/uL Hettinger # (Auto) (0.0-0.8) K/uL Eos # (Auto) (0.0-0.7) K/uL Baso # (Auto) (0.0-0.1) K/uL Nucleated RBC % /100WBC Nucleated RBCs # K/uL VBG pH (7.31-7.41) VBG pCO2 (35-45) mmHG VBG pO2 (30-40) mmHG VBG HCO3 (22-30) mEq/L VBG Total CO2 (41-51) mmol/L VBG Base Excess (-3.0-3.0) Lactate (0.20-2.00) mmol/L Sodium (136-148) mmol/L Potassium (3.5-5.1) mmol/L Chloride (98-107) mmol/L Carbon Dioxide (21.0-32.0) mmol/L BUN (7.0-18.0) mg/dL Creatinine (0.8-1.3) mg/dL Est Cr Clr Drug Dosing mL/min Estimated GFR (MDRD) ml/min Glucose (74-106) mg/dL POC Glucose 168 H (60-110) mg/dL Calcium (8.5-10.1) mg/dL Magnesium (1.8-2.4) mg/dL Total Bilirubin (0.2-1.0) mg/dL AST (15-37) IU/L ALT (14-63) IU/L Alkaline Phosphatase (46-116) U/L Total Protein (6.4-8.2) g/dL Albumin (3.4-5.0) g/dL Globulin (2.6-4.0) g/dL Albumin/Globulin Ratio (0.9-1.6) Lipase (73-393) U/L Urine Color YELLOW Urine Appearance SLT CLOUDY Urine pH 6.5 (5.0-8.0) Ur Specific Guffey 1.010 (1.001-1.035) Urine Protein NEGATIVE (NEGATIVE) mg/dL Urine Glucose (UA) >=1000 (NEGATIVE) mg/dL Urine Ketones NEGATIVE (NEGATIVE) mg/dL Urine Occult Blood TRACE-INTACT H (NEGATIVE) Urine Nitrite NEGATIVE (NEGATIVE) Urine Bilirubin NEGATIVE (NEGATIVE) Urine Urobilinogen 0.2 (<2.0) EU/dL Ur Leukocyte Esterase NEGATIVE (NEGATIVE) Urine RBC 0-2 (0-2/HPF) Urine WBC 0-1 (0-5/HPF) Ur Epithelial Cells RARE (NONE-FEW) Urine Bacteria 3+ H (NEGATIVE) Urine Opiates Screen NEGATIVE (NEGATIVE) Ur Oxycodone Screen NEGATIVE (NEGATIVE) Urine Methadone Screen NEGATIVE (NEGATIVE) Ur Barbiturates Screen NEGATIVE (NEGATIVE) Ur Phencyclidine Scrn NEGATIVE (NEGATIVE) Ur Amphetamine Screen NEGATIVE (NEGATIVE) U Methamphetamines Scrn NEGATIVE (NEGATIVE) U Benzodiazepines Scrn NEGATIVE (NEGATIVE) U Cocaine Metab Screen NEGATIVE (NEGATIVE) U Marijuana (THC) Screen NEGATIVE (NEGATIVE) Ketones (NEG) SARS-CoV-2 RNA (RICHIE) (NEGATIVE) 01/23/20 01/23/20 01/23/20 Range/Units 09:03 09:37 09:37 WBC (4.0-11.0) K/uL RBC (4.50-5.90) M/uL Hgb (13.0-17.0) g/dL Hct (38.0-50.0) % MCV (80.0-98.0) fL MCH (27.0-32.0) pg MCHC (31.0-37.0) g/dL RDW Std Deviation (28.0-62.0) fl RDW Coeff of Erika (11.0-15.0) % Plt Count (150-400) K/uL MPV (7.40-12.00) fL Neut % (Auto) (48.0-80.0) % Lymph % (Auto) (16.0-40.0) % Hettinger % (Auto) (0.0-15.0) % Eos % (Auto) (0.0-7.0) % Baso % (Auto) (0.0-1.5) % Neut # (Auto) (1.4-5.7) K/uL Lymph # (Auto) (0.6-2.4) K/uL Hettinger # (Auto) (0.0-0.8) K/uL Eos # (Auto) (0.0-0.7) K/uL Baso # (Auto) (0.0-0.1) K/uL Nucleated RBC % /100WBC Nucleated RBCs # K/uL VBG pH (7.31-7.41) VBG pCO2 (35-45) mmHG VBG pO2 (30-40) mmHG VBG HCO3 (22-30) mEq/L VBG Total CO2 (41-51) mmol/L VBG Base Excess (-3.0-3.0) Lactate 1.8 (0.20-2.00) mmol/L Sodium 139 (136-148) mmol/L Potassium 3.1 L (3.5-5.1) mmol/L Chloride 104 (98-107) mmol/L Carbon Dioxide 27.1 (21.0-32.0) mmol/L BUN 20 H (7.0-18.0) mg/dL Creatinine 0.9 (0.8-1.3) mg/dL Est Cr Clr Drug Dosing 94.99 mL/min Estimated GFR (MDRD) > 60.0 ml/min Glucose 120 H (74-106) mg/dL POC Glucose 125 H (60-110) mg/dL Calcium 9.1 (8.5-10.1) mg/dL Magnesium (1.8-2.4) mg/dL Total Bilirubin (0.2-1.0) mg/dL AST (15-37) IU/L ALT (14-63) IU/L Alkaline Phosphatase (46-116) U/L Total Protein (6.4-8.2) g/dL Albumin (3.4-5.0) g/dL Globulin (2.6-4.0) g/dL Albumin/Globulin Ratio (0.9-1.6) Lipase (73-393) U/L Urine Color Urine Appearance Urine pH (5.0-8.0) Ur Specific Guffey (1.001-1.035) Urine Protein (NEGATIVE) mg/dL Urine Glucose (UA) (NEGATIVE) mg/dL Urine Ketones (NEGATIVE) mg/dL Urine Occult Blood (NEGATIVE) Urine Nitrite (NEGATIVE) Urine Bilirubin (NEGATIVE) Urine Urobilinogen (<2.0) EU/dL Ur Leukocyte Esterase (NEGATIVE) Urine RBC (0-2/HPF) Urine WBC (0-5/HPF) Ur Epithelial Cells (NONE-FEW) Urine Bacteria (NEGATIVE) Urine Opiates Screen (NEGATIVE) Ur Oxycodone Screen (NEGATIVE) Urine Methadone Screen (NEGATIVE) Ur Barbiturates Screen (NEGATIVE) Ur Phencyclidine Scrn (NEGATIVE) Ur Amphetamine Screen (NEGATIVE) U Methamphetamines Scrn (NEGATIVE) U Benzodiazepines Scrn (NEGATIVE) U Cocaine Metab Screen (NEGATIVE) U Marijuana (THC) Screen (NEGATIVE) Ketones (NEG) SARS-CoV-2 RNA (RICHIE) (NEGATIVE) Result Diagrams: 01/23/20 04:00 01/23/20 09:37 Sepsis Event Note - Evaluation Sepsis Screening Result: No Definite Risk - Focused Exam Vital Signs: Vital Signs Temp Pulse Resp BP Pulse Ox 01/23/20 08:32 108 H 137/88 96 01/23/20 08:02 110 H 120/82 98 01/23/20 07:32 109 H 146/90 H 100 01/23/20 07:17 108 H 17 135/90 99 01/23/20 07:02 111 H 16 142/95 H 99 01/23/20 06:27 110 H 14 152/96 H 98 01/23/20 05:47 112 H 144/88 H 98 01/23/20 04:30 113 H 139/91 H 98 01/23/20 03:48 36.4 C 95 16 152/96 H 100 Problem List Initiated/Reviewed/Updated: Yes Orders Last 24hrs: Active Orders 24 hr Category Date Time Status Admission Status [Patient Status] [ADT] Stat ADT 01/23/20 09:06 Active Blood Glucose Check, Bedside [RC] ONETIME Care 01/23/20 04:54 Active Blood Glucose Check, Bedside [RC] ONETIME Care 01/23/20 05:36 Active Blood Glucose Check, Bedside [RC] ONETIME Care 01/23/20 09:00 Active Insert Urinary Catheter [OM.PC] Q24H Care 01/23/20 06:45 Ordered Urinary Catheter Assessment [RC] ASDIRECTED Care 01/23/20 06:42 Active CULTURE BLOOD [BC] Stat Lab 01/23/20 04:45 Received CULTURE BLOOD [BC] Stat Lab 01/23/20 04:55 Received Dextrose 5%-0.9% NaCl [Dextrose 5%-Normal Saline] 1,000 Med 01/23/20 09:30 Active ml IV ASDIRECTED Dextrose 50% in Water Med 01/23/20 04:54 Active 50 ml IV ASDIRECTED PRN Glucagon,Human Recombinant [GlucaGen] Med 01/23/20 04:54 Active 1 mg IM ASDIRECTED PRN Potassium Chloride Riders [KCL 40 MEQ in Water 100 ML] Med 01/23/20 10:22 Active 40 meq Premix Bag 1 bag IV ONETIME Sodium Chloride 0.9% [Saline Flush] Med 01/23/20 03:39 Active 10 ml FLUSH ASDIRECTED PRN Sodium Chloride 0.9% [Saline Flush] Med 01/23/20 03:39 Active 2.5 ml FLUSH ASDIRECTED PRN Blood Culture x2 Reflex Set [OM.PC] Stat Oth 01/23/20 04:34 Ordered Saline Lock Insert [OM.PC] Stat Oth 01/23/20 03:40 Ordered Medication Orders Dextrose/Water (Dextrose 50% In Water) 50 ml IV ASDIRECTED PRN PRN Reason: Hypoglycemia Glucagon (Glucagen) 1 mg IM ASDIRECTED PRN PRN Reason: Hypoglycemia Dextrose/Sodium Chloride (Dextrose 5%-Normal Saline) 1,000 mls @ 75 mls/hr IV ASDIRECTED AUGUSTINE Last Admin: 01/23/20 09:36 Dose: 75 mls/hr Documented by: VARGAS Potassium Chloride 40 meq/ (Premix) 100 mls @ 25 mls/hr IV ONETIME ONE Stop: 01/23/20 14:21 Sodium Chloride (Saline Flush) 2.5 ml FLUSH ASDIRECTED PRN PRN Reason: Keep Vein Open Last Admin: 01/23/20 04:07 Dose: 2.5 ml Documented by: DANIEL Sodium Chloride (Saline Flush) 10 ml FLUSH ASDIRECTED PRN PRN Reason: Keep Vein Open Last Admin: 01/23/20 04:07 Dose: 10 ml Documented by: DANIEL Assessment/Plan Comment:: 24 yo male who presented with abdominal pain and nausea. He was found to have hyperglycemia and hydronephrosis. We will treat with meropenem until infection has been ruled out. Dr. Rodriguez has been consulted regarding CT scan findings. Patient's symptoms likely exacerbated by gastroparesis, poorly controlled diabetes and opioid abuse.
[2020-01-23] MEDS ORDERED: Sodium Chloride 0.9% with KCl 1,000 ML IV SCH (14:45)
[2020-01-23] MEDS ORDERED: cefTRIAXone 1 GM in Sodium Chloride 0.9% 50 ML IV SCH (15:00)
[2020-01-23] MEDS ORDERED: cefTRIAXone 1 GM in Premix Bag 1 BAG IV SCH (16:00)
[2020-01-23] MEDS: Meropenem Premix 1 GM in Premix Bag 1 BAG IV SCH ×2 (16:28→23:38)
[2020-01-23] MEDS: Insulin Aspart 100 Units/ML 3 ML Pen SUBCUT SCH ×2 (16:33→21:11)
[2020-01-23] MEDS ORDERED: Piperacillin/Tazobactam 3.375 GM in Sodium Chloride 0.9% 50 ML IV SCH (21:00)
[2020-01-23] MEDS ORDERED: Insulin Glargine,Human Rec. Analog 100 Units/ML 3 ML Pen SUBCUT ONE (21:00)
[2020-01-23] MEDS ORDERED: Insulin Glargine,Human Rec. Analog 100 Units/ML 3 ML Pen SUBCUT SCH (21:00)
[2020-01-24] MEDS: Dextrose 5%-0.9% NaCl 1,000 ML IV SCH ×2 (01:32→13:24)
[2020-01-24] MEDS: Insulin Aspart 100 Units/ML 3 ML Pen SUBCUT SCH ×4 (02:17→21:48)
[2020-01-24 06:15] LABS: BLOOD UREA NITROGEN,BUN 17 mg/dL (7.0-18.0); CARBON DIOXIDE,CO2 26.2 mmol/L (21.0-32.0); CHLORIDE,CL 110 mmol/L (98-107); GLUCOSE RANDOM 170 mg/dL (74-106); POTASSIUM,K 3.7 mmol/L (3.5-5.1); SODIUM,NA 145 mmol/L (136-148)
[2020-01-24] MEDS: Meropenem Premix 1 GM in Premix Bag 1 BAG IV SCH ×3 (08:47→23:09)
[2020-01-24] MEDS ORDERED: diphenhydrAMINE 50 MG/ML SDV IVPUSH ONE ×2 (09:01→21:37)
[2020-01-24] MEDS ORDERED: Lactated Ringers 1,000 ML IV ONE (09:22)
--- NOTE | 2020-01-24 10:57 | PCM.PN ---
<Nereida Dc - Last Filed: 01/24/20 11:05> - General Info Date of Service: 01/24/20 Subjective Update: Bedside: c/o left flank pain w. generalized pruritus. No appetite. - Review of Systems General: Reports: No Symptoms HEENT: Reports: No Symptoms Pulmonary: Reports: No Symptoms Cardiovascular: Reports: No Symptoms Gastrointestinal: Reports: Abdominal Pain, Decreased Appetite, Nausea Genitourinary: Reports: Flank Pain Musculoskeletal: Reports: No Symptoms Skin: Reports: No Symptoms Neurological: Reports: No Symptoms Psychiatric: Reports: No Symptoms - Patient Data Vitals - Most Recent: Last Vital Signs Temp 101.3 F H 01/24/20 08:00 Pulse 114 H 01/24/20 08:00 Resp 19 01/24/20 08:00 BP 98/54 L 01/24/20 08:00 Pulse Ox 96 01/24/20 08:00 Weight - Most Recent: 51.256 kg I&O - Last 24 Hours: Intake & Output 01/23/20 01/24/20 01/24/20 22:59 06:59 14:59 Intake Total 0 1100 Output Total 650 1300 Balance -650 -200 Lab Results Last 24 Hours: Laboratory Results - last 24 hr 01/23/20 01/23/20 01/23/20 Range/Units 11:42 16:32 17:53 WBC (4.0-11.0) K/uL RBC (4.50-5.90) M/uL Hgb (13.0-17.0) g/dL Hct (38.0-50.0) % MCV (80.0-98.0) fL MCH (27.0-32.0) pg MCHC (31.0-37.0) g/dL RDW Std Deviation (28.0-62.0) fl RDW Coeff of Erika (11.0-15.0) % Plt Count (150-400) K/uL MPV (7.40-12.00) fL Add Manual Diff Neutrophils % (Manual) (48.0-80.0) % Band Neutrophils % % Lymphocytes % (Manual) (16.0-40.0) % Monocytes % (Manual) (0.0-15.0) % Nucleated RBC % /100WBC Absolute Seg Neuts (1.4-5.7) Band Neutrophils # Lymphocytes # (Manual) (0.6-2.4) Monocytes # (Manual) (0.0-0.8) Nucleated RBCs # K/uL Lactate (0.20-2.00) mmol/L Sodium (136-148) mmol/L Potassium (3.5-5.1) mmol/L Chloride (98-107) mmol/L Carbon Dioxide (21.0-32.0) mmol/L BUN (7.0-18.0) mg/dL Creatinine (0.8-1.3) mg/dL Est Cr Clr Drug Dosing mL/min Estimated GFR (MDRD) ml/min Glucose (74-106) mg/dL POC Glucose 114 H 98 83 (60-110) mg/dL Calcium (8.5-10.1) mg/dL Total Bilirubin (0.2-1.0) mg/dL AST (15-37) IU/L ALT (14-63) IU/L Alkaline Phosphatase (46-116) U/L Total Protein (6.4-8.2) g/dL Albumin (3.4-5.0) g/dL Globulin (2.6-4.0) g/dL Albumin/Globulin Ratio (0.9-1.6) 01/23/20 01/23/20 01/23/20 Range/Units 18:40 20:40 21:40 WBC (4.0-11.0) K/uL RBC (4.50-5.90) M/uL Hgb (13.0-17.0) g/dL Hct (38.0-50.0) % MCV (80.0-98.0) fL MCH (27.0-32.0) pg MCHC (31.0-37.0) g/dL RDW Std Deviation (28.0-62.0) fl RDW Coeff of Erika (11.0-15.0) % Plt Count (150-400) K/uL MPV (7.40-12.00) fL Add Manual Diff Neutrophils % (Manual) (48.0-80.0) % Band Neutrophils % % Lymphocytes % (Manual) (16.0-40.0) % Monocytes % (Manual) (0.0-15.0) % Nucleated RBC % /100WBC Absolute Seg Neuts (1.4-5.7) Band Neutrophils # Lymphocytes # (Manual) (0.6-2.4) Monocytes # (Manual) (0.0-0.8) Nucleated RBCs # K/uL Lactate (0.20-2.00) mmol/L Sodium (136-148) mmol/L Potassium (3.5-5.1) mmol/L Chloride (98-107) mmol/L Carbon Dioxide (21.0-32.0) mmol/L BUN (7.0-18.0) mg/dL Creatinine (0.8-1.3) mg/dL Est Cr Clr Drug Dosing mL/min Estimated GFR (MDRD) ml/min Glucose (74-106) mg/dL POC Glucose 81 73 186 H (60-110) mg/dL Calcium (8.5-10.1) mg/dL Total Bilirubin (0.2-1.0) mg/dL AST (15-37) IU/L ALT (14-63) IU/L Alkaline Phosphatase (46-116) U/L Total Protein (6.4-8.2) g/dL Albumin (3.4-5.0) g/dL Globulin (2.6-4.0) g/dL Albumin/Globulin Ratio (0.9-1.6) 01/23/20 01/24/20 01/24/20 Range/Units 22:21 01:58 05:46 WBC 11.18 H (4.0-11.0) K/uL RBC 3.74 L (4.50-5.90) M/uL Hgb 9.8 L (13.0-17.0) g/dL Hct 30.7 L (38.0-50.0) % MCV 82.1 (80.0-98.0) fL MCH 26.2 L (27.0-32.0) pg MCHC 31.9 (31.0-37.0) g/dL RDW Std Deviation 45.0 (28.0-62.0) fl RDW Coeff of Erika 15 (11.0-15.0) % Plt Count 157 (150-400) K/uL MPV 9.40 (7.40-12.00) fL Add Manual Diff YES Neutrophils % (Manual) 76 (48.0-80.0) % Band Neutrophils % 11 % Lymphocytes % (Manual) 12 L (16.0-40.0) % Monocytes % (Manual) 1 (0.0-15.0) % Nucleated RBC % 0.0 /100WBC Absolute Seg Neuts 8.5 H (1.4-5.7) Band Neutrophils # 1.2 Lymphocytes # (Manual) 1.3 (0.6-2.4) Monocytes # (Manual) 0.1 (0.0-0.8) Nucleated RBCs # 0 K/uL Lactate (0.20-2.00) mmol/L Sodium (136-148) mmol/L Potassium (3.5-5.1) mmol/L Chloride (98-107) mmol/L Carbon Dioxide (21.0-32.0) mmol/L BUN (7.0-18.0) mg/dL Creatinine (0.8-1.3) mg/dL Est Cr Clr Drug Dosing mL/min Estimated GFR (MDRD) ml/min Glucose (74-106) mg/dL POC Glucose 152 H 124 H (60-110) mg/dL Calcium (8.5-10.1) mg/dL Total Bilirubin (0.2-1.0) mg/dL AST (15-37) IU/L ALT (14-63) IU/L Alkaline Phosphatase (46-116) U/L Total Protein (6.4-8.2) g/dL Albumin (3.4-5.0) g/dL Globulin (2.6-4.0) g/dL Albumin/Globulin Ratio (0.9-1.6) 01/24/20 01/24/20 Range/Units 05:46 09:39 WBC (4.0-11.0) K/uL RBC (4.50-5.90) M/uL Hgb (13.0-17.0) g/dL Hct (38.0-50.0) % MCV (80.0-98.0) fL MCH (27.0-32.0) pg MCHC (31.0-37.0) g/dL RDW Std Deviation (28.0-62.0) fl RDW Coeff of Erika (11.0-15.0) % Plt Count (150-400) K/uL MPV (7.40-12.00) fL Add Manual Diff Neutrophils % (Manual) (48.0-80.0) % Band Neutrophils % % Lymphocytes % (Manual) (16.0-40.0) % Monocytes % (Manual) (0.0-15.0) % Nucleated RBC % /100WBC Absolute Seg Neuts (1.4-5.7) Band Neutrophils # Lymphocytes # (Manual) (0.6-2.4) Monocytes # (Manual) (0.0-0.8) Nucleated RBCs # K/uL Lactate 0.9 (0.20-2.00) mmol/L Sodium 145 (136-148) mmol/L Potassium 3.7 (3.5-5.1) mmol/L Chloride 110 H (98-107) mmol/L Carbon Dioxide 26.2 (21.0-32.0) mmol/L BUN 17 (7.0-18.0) mg/dL Creatinine 1.0 (0.8-1.3) mg/dL Est Cr Clr Drug Dosing 84.00 mL/min Estimated GFR (MDRD) > 60.0 ml/min Glucose 170 H (74-106) mg/dL POC Glucose (60-110) mg/dL Calcium 8.1 L (8.5-10.1) mg/dL Total Bilirubin 0.2 (0.2-1.0) mg/dL AST 30 (15-37) IU/L ALT 29 (14-63) IU/L Alkaline Phosphatase 75 (46-116) U/L Total Protein 6.2 L (6.4-8.2) g/dL Albumin 1.9 L (3.4-5.0) g/dL Globulin 4.3 H (2.6-4.0) g/dL Albumin/Globulin Ratio 0.4 L (0.9-1.6) Donaldo Results Last 24 Hours: Microbiology 01/23/20 04:55 Aerobic Blood Culture - Preliminary Blood - Venous - Lab Draw Anaerobic Blood Culture - Preliminary 01/23/20 15:26 Aerobic Blood Culture - Preliminary Blood - Venous Anaerobic Blood Culture - Preliminary 01/23/20 09:37 Aerobic Blood Culture - Preliminary Blood - Venous - Lab Draw Anaerobic Blood Culture - Final 01/23/20 04:45 Aerobic Blood Culture - Preliminary Blood - Venous Anaerobic Blood Culture - Preliminary Med Orders - Current: Current Medications Dextrose/Water (Dextrose 50% In Water) 50 ml IV ASDIRECTED PRN PRN Reason: Hypoglycemia Last Admin: 01/23/20 21:17 Dose: 50 ml Documented by: Glucagon (Glucagen) 1 mg IM ASDIRECTED PRN PRN Reason: Hypoglycemia Meropenem/Sodium Chloride 1 gm (/ Premix) 50 mls @ 100 mls/hr IV Q8H [facility] Last Admin: 01/24/20 08:47 Dose: 100 mls/hr Documented by: Dextrose/Sodium Chloride (Dextrose 5%-Normal Saline) 1,000 mls @ 100 mls/hr IV ASDIRECTED [facility] Last Admin: 01/24/20 01:32 Dose: 100 mls/hr Documented by: Insulin Aspart (Novolog) 0 unit SUBCUT Q6H [facility]; Protocol Last Admin: 01/24/20 09:44 Dose: Not Given Documented by: Insulin Glargine (Lantus Solostar) 20 units SUBCUT BEDTIME [facility] Morphine Sulfate (Morphine) 2 mg IVPUSH Q4H PRN PRN Reason: Pain Ondansetron HCl (Zofran) 4 mg IVPUSH Q4H PRN PRN Reason: Nausea Sodium Chloride (Saline Flush) 2.5 ml FLUSH ASDIRECTED PRN PRN Reason: Keep Vein Open Last Admin: 01/23/20 04:07 Dose: 2.5 ml Documented by: Sodium Chloride (Saline Flush) 10 ml FLUSH ASDIRECTED PRN PRN Reason: Keep Vein Open Last Admin: 01/23/20 04:07 Dose: 10 ml Documented by: Discontinued Medications Dextrose/Water (Dextrose 50% In Water) 50 ml IV ASDIRECTED PRN PRN Reason: Hypoglycemia Dextrose/Water (Dextrose 50% In Water) 50 ml IV ASDIRECTED PRN PRN Reason: Hypoglycemia Dextrose/Water (Dextrose 50% In Water) 50 ml IV ASDIRECTED PRN PRN Reason: Hypoglycemia Dextrose/Water (Dextrose 50% In Water) 25 ml IV ASDIRECTED PRN PRN Reason: Hypoglycemia Diphenhydramine HCl (Benadryl) 50 mg IVPUSH ONETIME ONE Stop: 01/23/20 04:27 Last Admin: 01/23/20 04:37 Dose: 50 mg Documented by: Diphenhydramine HCl (Benadryl) 25 mg IVPUSH ONETIME ONE Stop: 01/24/20 09:02 Last Admin: 01/24/20 09:34 Dose: 25 mg Documented by: Glucagon (Glucagen) 1 mg IM ASDIRECTED PRN PRN Reason: Hypoglycemia Glucagon (Glucagen) 1 mg IM ASDIRECTED PRN PRN Reason: Hypoglycemia Glucagon (Glucagen) 1 mg IM ASDIRECTED PRN PRN Reason: Hypoglycemia Haloperidol Lactate (Haldol) 3 mg IM ONETIME ONE Stop: 01/23/20 03:56 Last Admin: 01/23/20 04:03 Dose: 3 mg Documented by: Hydromorphone HCl (Dilaudid) 1 mg IVPUSH ONETIME ONE Stop: 01/23/20 04:27 Last Admin: 01/23/20 04:37 Dose: 1 mg Documented by: Lactated Ringer's (Ringers, Lactated) 1,000 mls @ 999 mls/hr IV .BOLUS ONE Stop: 01/23/20 04:39 Last Admin: 01/23/20 04:04 Dose: 999 mls/hr Documented by: Lactated Ringer's (Ringers, Lactated) 1,000 mls @ 999 mls/hr IV .BOLUS ONE Stop: 01/23/20 05:26 Last Admin: 01/23/20 04:39 Dose: 999 mls/hr Documented by: Pantoprazole Sodium 40 mg/ (Sodium Chloride) 20 mls @ 420 mls/hr IVPUSH ONETIME ONE Stop: 01/23/20 04:29 Last Admin: 01/23/20 04:36 Dose: 420 mls/hr Documented by: Lactated Ringer's (Ringers, Lactated) 1,000 mls @ 999 mls/hr IV .BOLUS ONE Stop: 01/23/20 06:55 Last Admin: 01/23/20 06:02 Dose: 999 mls/hr Documented by: Dextrose/Sodium Chloride (Dextrose 5%-Normal Saline) 1,000 mls @ 75 mls/hr IV ASDIRECTED [facility] Last Admin: 01/23/20 09:36 Dose: 75 mls/hr Documented by: Potassium Chloride 40 meq/ (Premix) 100 mls @ 25 mls/hr IV ONETIME ONE Stop: 01/23/20 14:21 Last Admin: 01/23/20 10:49 Dose: 25 mls/hr Documented by: Potassium Chloride/Sodium Chloride (Normal Saline With 40 Meq Kcl) 1,000 mls @ 150 mls/hr IV ASDIRECTED [facility] [place] Stop: 01/23/20 21:24 Last Admin: 01/23/20 17:26 Dose: 150 mls/hr Documented by: Ceftriaxone Sodium 1 gm/ (Sodium Chloride) 50 mls @ 100 mls/hr IV Q24H [facility] [place] Last Admin: 01/23/20 17:50 Dose: Not Given Documented by: Ceftriaxone Sodium/Dextrose 1 (gm/ Premix) 50 mls @ 100 mls/hr IV Q24H [facility] [place] Dextrose/Sodium Chloride (Dextrose 5%-Normal Saline) 1,000 mls @ 100 mls/hr IV ASDIRECTED [facility] [place] Piperacillin Sod/Tazobactam (Sod 3.375 gm/ Sodium Chloride) 50 mls @ 100 mls/hr IV Q6H [facility] [place] Last Admin: 01/23/20 22:24 Dose: 100 mls/hr Documented by: Lactated Ringer's (Ringers, Lactated) 1,000 mls @ 500 mls/hr IV .BOLUS ONE Stop: 01/24/20 01:30 Last Admin: 01/23/20 23:45 Dose: 500 mls/hr Documented by: Lactated Ringer's (Ringers, Lactated) 1,000 mls @ 1,000 mls/hr IV .BOLUS ONE Stop: 01/24/20 10:21 Last Admin: 01/24/20 09:38 Dose: 1,000 mls/hr Documented by: Insulin Glargine (Lantus Solostar) 20 units SUBCUT BEDTIME [facility] [place] Insulin Glargine (Lantus Solostar) 10 units SUBCUT ONETIME ONE Stop: 01/23/20 21:01 Last Admin: 01/23/20 22:23 Dose: 10 units Documented by: Insulin Human Regular (Novolin R) 8 unit IVPUSH ONETIME ONE; Protocol Stop: 01/23/20 04:55 Last Admin: 01/23/20 05:14 Dose: 8 unit Documented by: Insulin Human Regular (Novolin R) 5 unit IVPUSH ONETIME ONE; Protocol Stop: 01/23/20 05:37 Last Admin: 01/23/20 05:44 Dose: 5 unit Documented by: Metoclopramide HCl (Reglan) 10 mg IVPUSH ONETIME ONE Stop: 01/23/20 04:27 Last Admin: 01/23/20 04:39 Dose: 10 mg Documented by: - Exam General: Alert, Oriented HEENT: EOMI Neck: Supple Lungs: Clear to Auscultation, Normal Respiratory Effort Cardiovascular: Regular Rhythm, Tachycardia GI/Abdominal Exam: Soft, Tender. No: Rigid, Rebound (Male) Exam: Other (edge in-situ: urine output :yellow to clear ) Back Exam: Full Range of Motion Skin: Warm Neurological: No New Focal Deficit Psy/Mental Status: Alert Sepsis Event Note - Evaluation Sepsis Screening Result: No Definite Risk - Focused Exam Vital Signs: Vital Signs Temp Pulse Resp BP Pulse Ox 01/24/20 08:00 101.3 F H 114 H 19 98/54 L 96 01/24/20 04:00 99.7 F 120 H 19 96/51 L 97 01/24/20 02:02 99.7 F 112 H 16 115/58 L 96 01/23/20 23:49 97.8 F 116 H 18 97/53 L 97 - Problem List Review Problem List Initiated/Reviewed/Updated: Yes - Plan Plan:: 24 yo male who presented with abdominal pain and nausea. He was found to have hyperglycemia and hydronephrosis. Sepsis in setting of +Bcx, tachycardia and fever overnight (Tmax: 101): 1 liter D5 -saline +continue Meropenem: awaiting Culture sensitivity + repeat culture -recheck Lactate: continue to trend till normal -Pain control w. Morphine for now -One time Benadryl this AM secondary to Pruritus. -Will touch Base with urology regarding timeline for follow-up; reported to leave in edge till outpatient follow up -Switch to inpatient status --Continue Glucose management <Miguel Pollack - Last Filed: 01/25/20 20:54> - Patient Data Vitals - Most Recent: Last Vital Signs Temp 36.5 C 01/25/20 20:37 Pulse 110 H 01/25/20 20:37 Resp 17 01/25/20 20:37 BP 94/81 01/25/20 20:37 Pulse Ox 99 01/25/20 20:37 I&O - Last 24 Hours: Intake & Output 01/25/20 01/25/20 01/25/20 06:59 14:59 22:59 Intake Total 1200 1225 Output Total 2100 1650 Balance -900 -425 Lab Results Last 24 Hours: Laboratory Results - last 24 hr 01/24/20 01/25/20 01/25/20 Range/Units 21:00 03:49 05:12 WBC 9.90 (4.0-11.0) K/uL RBC 3.73 L (4.50-5.90) M/uL Hgb 9.7 L (13.0-17.0) g/dL Hct 31.4 L (38.0-50.0) % MCV 84.2 (80.0-98.0) fL MCH 26.0 L (27.0-32.0) pg MCHC 30.9 L (31.0-37.0) g/dL RDW Std Deviation 46.7 (28.0-62.0) fl RDW Coeff of Erika 15 (11.0-15.0) % Plt Count 188 (150-400) K/uL MPV 10.20 (7.40-12.00) fL Neut % (Auto) 86.4 H (48.0-80.0) % Lymph % (Auto) 9.7 L (16.0-40.0) % [place] % (Auto) 3.7 (0.0-15.0) % Eos % (Auto) 0.0 (0.0-7.0) % Baso % (Auto) 0.2 (0.0-1.5) % Neut # (Auto) 8.6 H (1.4-5.7) K/uL Lymph # (Auto) 1.0 (0.6-2.4) K/uL [place] # (Auto) 0.4 (0.0-0.8) K/uL Eos # (Auto) 0.0 (0.0-0.7) K/uL Baso # (Auto) 0.0 (0.0-0.1) K/uL Nucleated RBC % 0.0 /100WBC Nucleated RBCs # 0 K/uL Sodium (136-148) mmol/L Potassium (3.5-5.1) mmol/L Chloride (98-107) mmol/L Carbon Dioxide (21.0-32.0) mmol/L BUN (7.0-18.0) mg/dL Creatinine (0.8-1.3) mg/dL Est Cr Clr Drug Dosing mL/min Estimated GFR (MDRD) ml/min Glucose (74-106) mg/dL POC Glucose 221 H 243 H (60-110) mg/dL Calcium (8.5-10.1) mg/dL Total Bilirubin (0.2-1.0) mg/dL AST (15-37) IU/L ALT (14-63) IU/L Alkaline Phosphatase (46-116) U/L Total Protein (6.4-8.2) g/dL Albumin (3.4-5.0) g/dL Globulin (2.6-4.0) g/dL Albumin/Globulin Ratio (0.9-1.6) 01/25/20 01/25/20 01/25/20 Range/Units 05:12 12:21 15:14 WBC (4.0-11.0) K/uL RBC (4.50-5.90) M/uL Hgb (13.0-17.0) g/dL Hct (38.0-50.0) % MCV (80.0-98.0) fL MCH (27.0-32.0) pg MCHC (31.0-37.0) g/dL RDW Std Deviation (28.0-62.0) fl RDW Coeff of Erika (11.0-15.0) % Plt Count (150-400) K/uL MPV (7.40-12.00) fL Neut % (Auto) (48.0-80.0) % Lymph % (Auto) (16.0-40.0) % [place] % (Auto) (0.0-15.0) % Eos % (Auto) (0.0-7.0) % Baso % (Auto) (0.0-1.5) % Neut # (Auto) (1.4-5.7) K/uL Lymph # (Auto) (0.6-2.4) K/uL [place] # (Auto) (0.0-0.8) K/uL Eos # (Auto) (0.0-0.7) K/uL Baso # (Auto) (0.0-0.1) K/uL Nucleated RBC % /100WBC Nucleated RBCs # K/uL Sodium 147 (136-148) mmol/L Potassium 3.8 (3.5-5.1) mmol/L Chloride 112 H (98-107) mmol/L Carbon Dioxide 23.3 (21.0-32.0) mmol/L BUN 20 H (7.0-18.0) mg/dL Creatinine 1.0 (0.8-1.3) mg/dL Est Cr Clr Drug Dosing 84.00 mL/min Estimated GFR (MDRD) > 60.0 ml/min Glucose 287 H (74-106) mg/dL POC Glucose 258 H 277 H (60-110) mg/dL Calcium 9.0 (8.5-10.1) mg/dL Total Bilirubin 0.3 (0.2-1.0) mg/dL AST 18 (15-37) IU/L ALT 19 (14-63) IU/L Alkaline Phosphatase 84 (46-116) U/L Total Protein 6.8 (6.4-8.2) g/dL Albumin 2.0 L (3.4-5.0) g/dL Globulin 4.8 H (2.6-4.0) g/dL Albumin/Globulin Ratio 0.4 L (0.9-1.6) [place]onaldo Results Last 24 Hours: Microbiology 01/23/20 09:37 Aerobic Blood Culture - Final Blood - Venous - Lab Draw Anaerobic Blood Culture - Final 01/23/20 15:26 Aerobic Blood Culture - Final Blood - Venous Anaerobic Blood Culture - Final 01/23/20 04:55 Aerobic Blood Culture - Final Blood - Venous - Lab Draw Anaerobic Blood Culture - Final 01/23/20 04:45 Aerobic Blood Culture - Final Blood - Venous Anaerobic Blood Culture - Final Escherichia Coli 01/23/20 06:55 Urine Culture - Final Urine, Bladder Escherichia Coli 01/24/20 00:25 Aerobic Blood Culture - Preliminary Blood - Venous - Lab Draw NO GROWTH AFTER 1 DAY Anaerobic Blood Culture - Preliminary NO GROWTH AFTER 1 DAY 01/24/20 00:15 Aerobic Blood Culture - Preliminary Blood - Venous NO GROWTH AFTER 1 DAY Anaerobic Blood Culture - Preliminary NO GROWTH AFTER 1 DAY Med Orders - Current: Current Medications Dextrose/Water (Dextrose 50% In Water) 50 ml IV ASDIRECTED PRN PRN Reason: Hypoglycemia Last Admin: 01/23/20 21:17 Dose: 50 ml Documented by: Famotidine (Pepcid) 40 mg IV BID [facility] [place] Last Admin: 01/25/20 20:22 Dose: 40 mg Documented by: Glucagon (Glucagen) 1 mg IM ASDIRECTED PRN PRN Reason: Hypoglycemia Ceftriaxone Sodium/Dextrose 1 (gm/ Premix) 50 mls @ 100 mls/hr IV Q24H [facility] [place] Last Admin: 01/25/20 16:14 Dose: 100 mls/hr Documented by: Lactated Ringer's (Ringers, Lactated) 1,000 mls @ 100 mls/hr IV ASDIRECTED [facility] [place] Last Admin: 01/25/20 20:30 Dose: 100 mls/hr Documented by: Insulin Aspart (Novolog) 0 unit SUBCUT Q6H [facility] [place]; Protocol Last Admin: 01/25/20 19:15 Dose: 6 units Documented by: Insulin Glargine (Lantus Solostar) 20 units SUBCUT BEDTIME [facility] [place] Last Admin: 01/25/20 20:26 Dose: 20 units Documented by: Metoclopramide HCl (Reglan) 10 mg IVPUSH Q4H PRN PRN Reason: Nausea/Vomiting Last Admin: 01/25/20 12:30 Dose: 10 mg Documented by: Morphine Sulfate (Morphine) 2 mg IVPUSH Q6H PRN PRN Reason: Pain Suboxone 8/2 Sl (Tablets) 0 each PO .ASNEEDED PRN PRN Reason: OPIOID CRAVING Last Admin: 01/25/20 17:21 Dose: 0.25 each Documented by: Sodium Chloride (Saline Flush) 2.5 ml FLUSH ASDIRECTED PRN PRN Reason: Keep Vein Open Last Admin: 01/23/20 04:07 Dose: 2.5 ml Documented by: Sodium Chloride (Saline Flush) 10 ml FLUSH ASDIRECTED PRN PRN Reason: Keep Vein Open Last Admin: 01/23/20 04:07 Dose: 10 ml Documented by: Discontinued Medications Cetirizine HCl (Zyrtec) 10 mg PO DAILY [facility] [place] Cetirizine HCl (Zyrtec) 10 mg PO ONETIME ONE Stop: 01/25/20 17:26 Last Admin: 01/25/20 17:58 Dose: Not Given Documented by: Dextrose/Water (Dextrose 50% In Water) 50 ml IV ASDIRECTED PRN PRN Reason: Hypoglycemia Dextrose/Water (Dextrose 50% In Water) 50 ml IV ASDIRECTED PRN PRN Reason: Hypoglycemia Dextrose/Water (Dextrose 50% In Water) 50 ml IV ASDIRECTED PRN PRN Reason: Hypoglycemia Dextrose/Water (Dextrose 50% In Water) 25 ml IV ASDIRECTED PRN PRN Reason: Hypoglycemia Diphenhydramine HCl (Benadryl) 50 mg IVPUSH ONETIME ONE Stop: 01/23/20 04:27 Last Admin: 01/23/20 04:37 Dose: 50 mg Documented by: Diphenhydramine HCl (Benadryl) 25 mg IVPUSH ONETIME ONE Stop: 01/24/20 09:02 Last Admin: 01/24/20 09:34 Dose: 25 mg Documented by: Diphenhydramine HCl (Benadryl) 25 mg IVPUSH ONETIME ONE Stop: 01/24/20 21:38 Last Admin: 01/24/20 21:47 Dose: 25 mg Documented by: Diphenhydramine HCl (Benadryl) 25 mg IVPUSH ONETIME ONE Stop: 01/25/20 07:45 Last Admin: 01/25/20 08:15 Dose: 25 mg Documented by: Famotidine (Pepcid) 20 mg PO ONETIME ONE Stop: 01/25/20 08:11 Last Admin: 01/25/20 08:23 Dose: 20 mg Documented by: Glucagon (Glucagen) 1 mg IM ASDIRECTED PRN PRN Reason: Hypoglycemia Glucagon (Glucagen) 1 mg IM ASDIRECTED PRN PRN Reason: Hypoglycemia Glucagon (Glucagen) 1 mg IM ASDIRECTED PRN PRN Reason: Hypoglycemia Haloperidol Lactate (Haldol) 3 mg IM ONETIME ONE Stop: 01/23/20 03:56 Last Admin: 01/23/20 04:03 Dose: 3 mg Documented by: Hydromorphone HCl (Dilaudid) 1 mg IVPUSH ONETIME ONE Stop: 01/23/20 04:27 Last Admin: 01/23/20 04:37 Dose: 1 mg Documented by: Lactated Ringer's (Ringers, Lactated) 1,000 mls @ 999 mls/hr IV .BOLUS ONE Stop: 01/23/20 04:39 Last Admin: 01/23/20 04:04 Dose: 999 mls/hr Documented by: Lactated Ringer's (Ringers, Lactated) 1,000 mls @ 999 mls/hr IV .BOLUS ONE Stop: 01/23/20 05:26 Last Admin: 01/23/20 04:39 Dose: 999 mls/hr Documented by: Pantoprazole Sodium 40 mg/ (Sodium Chloride) 20 mls @ 420 mls/hr IVPUSH ONETIME ONE Stop: 01/23/20 04:29 Last Admin: 01/23/20 04:36 Dose: 420 mls/hr Documented by: Lactated Ringer's (Ringers, Lactated) 1,000 mls @ 999 mls/hr IV .BOLUS ONE Stop: 01/23/20 06:55 Last Admin: 01/23/20 06:02 Dose: 999 mls/hr Documented by: Dextrose/Sodium Chloride (Dextrose 5%-Normal Saline) 1,000 mls @ 75 mls/hr IV ASDIRECTED [facility] [place] Last Admin: 01/23/20 09:36 Dose: 75 mls/hr Documented by: Potassium Chloride 40 meq/ (Premix) 100 mls @ 25 mls/hr IV ONETIME ONE Stop: 01/23/20 14:21 Last Admin: 01/23/20 10:49 Dose: 25 mls/hr Documented by: Potassium Chloride/Sodium Chloride (Normal Saline With 40 Meq Kcl) 1,000 mls @ 150 mls/hr IV ASDIRECTED [facility] [place] Stop: 01/23/20 21:24 Last Admin: 01/23/20 17:26 Dose: 150 mls/hr Documented by: Ceftriaxone Sodium 1 gm/ (Sodium Chloride) 50 mls @ 100 mls/hr IV Q24H [facility] [place] Last Admin: 01/23/20 17:50 Dose: Not Given Documented by: Ceftriaxone Sodium/Dextrose 1 (gm/ Premix) 50 mls @ 100 mls/hr IV Q24H [facility] [place] Meropenem/Sodium Chloride 1 gm (/ Premix) 50 mls @ 100 mls/hr IV Q8H [facility] [place] Last Admin: 01/25/20 08:25 Dose: 100 mls/hr Documented by: Dextrose/Sodium Chloride (Dextrose 5%-Normal Saline) 1,000 mls @ 100 mls/hr IV ASDIRECTED [facility] [place] Piperacillin Sod/Tazobactam (Sod 3.375 gm/ Sodium Chloride) 50 mls @ 100 mls/hr IV Q6H [facility] [place] Last Admin: 01/23/20 22:24 Dose: 100 mls/hr Documented by: Dextrose/Sodium Chloride (Dextrose 5%-Normal Saline) 1,000 mls @ 100 mls/hr IV ASDIRECTED [facility] [place] Last Admin: 01/24/20 13:24 Dose: 100 mls/hr Documented by: Lactated Ringer's (Ringers, Lactated) 1,000 mls @ 500 mls/hr IV .BOLUS ONE Stop: 01/24/20 01:30 Last Admin: 01/23/20 23:45 Dose: 500 mls/hr Documented by: Lactated Ringer's (Ringers, Lactated) 1,000 mls @ 1,000 mls/hr IV .BOLUS ONE Stop: 01/24/20 10:21 Last Admin: 01/24/20 09:38 Dose: 1,000 mls/hr Documented by: Lactated Ringer's (Ringers, Lactated) 1,000 mls @ 100 mls/hr IV ASDIRECTED [facility] [place] Last Admin: 01/25/20 10:24 Dose: 100 mls/hr Documented by: Insulin Aspart (Novolog) 0 unit SUBCUT Q6H [facility] [place]; Protocol Last Admin: 01/25/20 15:18 Dose: 6 unit Documented by: Insulin Glargine (Lantus Solostar) 20 units SUBCUT BEDTIME [facility] [place] Insulin Glargine (Lantus Solostar) 10 units SUBCUT ONETIME ONE Stop: 01/23/20 21:01 Last Admin: 01/23/20 22:23 Dose: 10 units Documented by: Insulin Human Regular (Novolin R) 8 unit IVPUSH ONETIME ONE; Protocol Stop: 01/23/20 04:55 Last Admin: 01/23/20 05:14 Dose: 8 unit Documented by: Insulin Human Regular (Novolin R) 5 unit IVPUSH ONETIME ONE; Protocol Stop: 01/23/20 05:37 Last Admin: 01/23/20 05:44 Dose: 5 unit Documented by: Metoclopramide HCl (Reglan) 10 mg IVPUSH ONETIME ONE Stop: 01/23/20 04:27 Last Admin: 01/23/20 04:39 Dose: 10 mg Documented by: Morphine Sulfate (Morphine) 2 mg IVPUSH Q4H PRN PRN Reason: Pain Last Admin: 01/25/20 17:37 Dose: 2 mg Documented by: Ondansetron HCl (Zofran) 4 mg IVPUSH Q4H PRN PRN Reason: Nausea Last Admin: 01/25/20 03:55 Dose: 4 mg Documented by: Sepsis Event Note - Focused Exam Vital Signs: Vital Signs Temp Pulse Resp BP Pulse Ox 01/25/20 20:37 36.5 C 110 H 17 94/81 99 01/25/20 12:00 36.5 C 109 H 16 143/94 H - Problem List & Annotations (1) Bacteremia SNOMED Code(s): 4727173 Code(s): R78.81 - BACTEREMIA Status: Acute Current Visit: Yes (2) Abdominal pain SNOMED Code(s): 87649671 Code(s): R10.9 - UNSPECIFIED ABDOMINAL PAIN Status: Acute Current Visit: Yes (3) Itching SNOMED Code(s): 389437882 Code(s): L29.9 - PRURITUS, UNSPECIFIED Status: Acute Current Visit: Yes (4) Abdominal pain SNOMED Code(s): 92193899 Code(s): R10.9 - UNSPECIFIED ABDOMINAL PAIN Status: Chronic Priority: High Current Visit: Yes Qualifiers: Abdominal location: upper abdomen, unspecified Qualified Code(s): R10.10 - Upper abdominal pain, unspecified (5) Diabetes type 1, uncontrolled SNOMED Code(s): 97084503, 557977018 Code(s): E10.65 - TYPE 1 DIABETES MELLITUS WITH HYPERGLYCEMIA Status: Chronic Priority: Medium Current Visit: Yes Qualifiers: Glycemic state: with hyperglycemia Qualified Code(s): E10.65 - Type 1 diabetes mellitus with hyperglycemia (6) Chronic abdominal pain SNOMED Code(s): 912226724 Code(s): R10.9 - UNSPECIFIED ABDOMINAL PAIN; G89.29 - OTHER CHRONIC PAIN Status: Acute Current Visit: No (7) Diabetic gastroparesis SNOMED Code(s): 348769189 Code(s): E11.43 - TYPE 2 DIABETES W DIABETIC AUTONOMIC (POLY)NEUROPATHY; K31.84 - GASTROPARESIS Status: Chronic Priority: Medium Current Visit: No (8) History of neurogenic bladder SNOMED Code(s): 547353331 Code(s): Z87.448 - PERSONAL HISTORY OF OTHER DISEASES OF URINARY SYSTEM Status: Chronic Current Visit: No - My Orders Last 24 Hours: My Active Orders 01/25/20 Breakfast Clear Liquid Diet [DIET] - Plan Plan:: I have seen and evaluated the patient. I have discussed findings and treatment plan with resident. I agree with the assessment and plan in the following note.
[2020-01-24] MEDS: Morphine 2 MG/ML SYRINGE IVPUSH PRN (15:46)
[2020-01-24] MEDS: Ondansetron 4 MG/2 ML SDV IVPUSH PRN ×2 (15:49→19:44)
[2020-01-24] MEDS: Insulin Glargine,Human Rec. Analog 100 Units/ML 3 ML Pen SUBCUT SCH (21:48)
[2020-01-25] MEDS: Lactated Ringers 1,000 ML IV SCH ×2 (00:14→10:24)
[2020-01-25] MEDS: Insulin Aspart 100 Units/ML 3 ML Pen SUBCUT SCH ×5 (03:51→23:59)
[2020-01-25] MEDS: Ondansetron 4 MG/2 ML SDV IVPUSH PRN ×2 (03:55→08:21)
[2020-01-25] MEDS: Morphine 2 MG/ML SYRINGE IVPUSH PRN ×4 (03:55→23:54)
[2020-01-25 05:59] LABS: BLOOD UREA NITROGEN,BUN 20 mg/dL (7.0-18.0); CARBON DIOXIDE,CO2 23.3 mmol/L (21.0-32.0); CHLORIDE,CL 112 mmol/L (98-107); GLUCOSE RANDOM 287 mg/dL (74-106); POTASSIUM,K 3.8 mmol/L (3.5-5.1); SODIUM,NA 147 mmol/L (136-148)
[2020-01-25] MEDS ORDERED: diphenhydrAMINE 50 MG/ML SDV IVPUSH ONE (07:44)
[2020-01-25] MEDS ORDERED: Famotidine 20 MG Tab PO ONE ×2 (08:10→08:45)
[2020-01-25] MEDS ORDERED: Metoclopramide 10 MG/2 ML SDV IVPUSH PRN (08:21)
[2020-01-25] MEDS: Meropenem Premix 1 GM in Premix Bag 1 BAG IV SCH (08:25)
[2020-01-25] MEDS: SUBOXONE PO PRN ×4 (08:31→22:08)
[2020-01-25] MEDS: Famotidine 20 MG/2 ML SDV IV SCH ×2 (10:15→20:22)
--- NOTE | 2020-01-25 12:33 | PCM.PN ---
<Nereida Dc - Last Filed: 01/25/20 12:28> - General Info Date of Service: 01/25/20 Subjective Update: Bedside: subjectively feeling better but still c.o decreased appetite w. occasional n/v. Pruritus in abdomen still appreciable at times. - Review of Systems General: Reports: No Symptoms Pulmonary: Reports: No Symptoms Gastrointestinal: Reports: Abdominal Pain, Diarrhea, Flatus, Nausea, Vomiting. Denies: Melena Genitourinary: Reports: No Symptoms Musculoskeletal: Reports: No Symptoms Skin: Reports: Pruritis. Denies: Rash Neurological: Denies: Dizziness, Headache Psychiatric: Denies: Confusion - Patient Data Vitals - Most Recent: Last Vital Signs Temp 97.8 F 01/25/20 08:00 Pulse 98 01/25/20 08:00 Resp 18 01/25/20 08:00 BP 122/77 01/25/20 08:00 Pulse Ox 93 L 01/25/20 08:00 Weight - Most Recent: 51.256 kg I&O - Last 24 Hours: Intake & Output 01/24/20 01/25/20 01/25/20 22:59 06:59 14:59 Intake Total 2058 1200 Output Total 1750 2100 Balance 308 -900 Lab Results Last 24 Hours: Laboratory Results - last 24 hr 01/24/20 01/24/20 01/24/20 Range/Units 15:31 18:03 21:00 WBC (4.0-11.0) K/uL RBC (4.50-5.90) M/uL Hgb (13.0-17.0) g/dL Hct (38.0-50.0) % MCV (80.0-98.0) fL MCH (27.0-32.0) pg MCHC (31.0-37.0) g/dL RDW Std Deviation (28.0-62.0) fl RDW Coeff of Erika (11.0-15.0) % Plt Count (150-400) K/uL MPV (7.40-12.00) fL Neut % (Auto) (48.0-80.0) % Lymph % (Auto) (16.0-40.0) % [place] % (Auto) (0.0-15.0) % Eos % (Auto) (0.0-7.0) % Baso % (Auto) (0.0-1.5) % Neut # (Auto) (1.4-5.7) K/uL Lymph # (Auto) (0.6-2.4) K/uL [place] # (Auto) (0.0-0.8) K/uL Eos # (Auto) (0.0-0.7) K/uL Baso # (Auto) (0.0-0.1) K/uL Nucleated RBC % /100WBC Nucleated RBCs # K/uL Sodium (136-148) mmol/L Potassium (3.5-5.1) mmol/L Chloride (98-107) mmol/L Carbon Dioxide (21.0-32.0) mmol/L BUN (7.0-18.0) mg/dL Creatinine (0.8-1.3) mg/dL Est Cr Clr Drug Dosing mL/min Estimated GFR (MDRD) ml/min Glucose (74-106) mg/dL POC Glucose 271 H 202 H 221 H (60-110) mg/dL Calcium (8.5-10.1) mg/dL Total Bilirubin (0.2-1.0) mg/dL AST (15-37) IU/L ALT (14-63) IU/L Alkaline Phosphatase (46-116) U/L Total Protein (6.4-8.2) g/dL Albumin (3.4-5.0) g/dL Globulin (2.6-4.0) g/dL Albumin/Globulin Ratio (0.9-1.6) 01/25/20 01/25/20 01/25/20 Range/Units 03:49 05:12 05:12 WBC 9.90 (4.0-11.0) K/uL RBC 3.73 L (4.50-5.90) M/uL Hgb 9.7 L (13.0-17.0) g/dL Hct 31.4 L (38.0-50.0) % MCV 84.2 (80.0-98.0) fL MCH 26.0 L (27.0-32.0) pg MCHC 30.9 L (31.0-37.0) g/dL RDW Std Deviation 46.7 (28.0-62.0) fl RDW Coeff of Erika 15 (11.0-15.0) % Plt Count 188 (150-400) K/uL MPV 10.20 (7.40-12.00) fL Neut % (Auto) 86.4 H (48.0-80.0) % Lymph % (Auto) 9.7 L (16.0-40.0) % [place] % (Auto) 3.7 (0.0-15.0) % Eos % (Auto) 0.0 (0.0-7.0) % Baso % (Auto) 0.2 (0.0-1.5) % Neut # (Auto) 8.6 H (1.4-5.7) K/uL Lymph # (Auto) 1.0 (0.6-2.4) K/uL [place] # (Auto) 0.4 (0.0-0.8) K/uL Eos # (Auto) 0.0 (0.0-0.7) K/uL Baso # (Auto) 0.0 (0.0-0.1) K/uL Nucleated RBC % 0.0 /100WBC Nucleated RBCs # 0 K/uL Sodium 147 (136-148) mmol/L Potassium 3.8 (3.5-5.1) mmol/L Chloride 112 H (98-107) mmol/L Carbon Dioxide 23.3 (21.0-32.0) mmol/L BUN 20 H (7.0-18.0) mg/dL Creatinine 1.0 (0.8-1.3) mg/dL Est Cr Clr Drug Dosing 84.00 mL/min Estimated GFR (MDRD) > 60.0 ml/min Glucose 287 H (74-106) mg/dL POC Glucose 243 H (60-110) mg/dL Calcium 9.0 (8.5-10.1) mg/dL Total Bilirubin 0.3 (0.2-1.0) mg/dL AST 18 (15-37) IU/L ALT 19 (14-63) IU/L Alkaline Phosphatase 84 (46-116) U/L Total Protein 6.8 (6.4-8.2) g/dL Albumin 2.0 L (3.4-5.0) g/dL Globulin 4.8 H (2.6-4.0) g/dL Albumin/Globulin Ratio 0.4 L (0.9-1.6) 01/25/20 Range/Units 12:21 WBC (4.0-11.0) K/uL RBC (4.50-5.90) M/uL Hgb (13.0-17.0) g/dL Hct (38.0-50.0) % MCV (80.0-98.0) fL MCH (27.0-32.0) pg MCHC (31.0-37.0) g/dL RDW Std Deviation (28.0-62.0) fl RDW Coeff of Erika (11.0-15.0) % Plt Count (150-400) K/uL MPV (7.40-12.00) fL Neut % (Auto) (48.0-80.0) % Lymph % (Auto) (16.0-40.0) % [place] % (Auto) (0.0-15.0) % Eos % (Auto) (0.0-7.0) % Baso % (Auto) (0.0-1.5) % Neut # (Auto) (1.4-5.7) K/uL Lymph # (Auto) (0.6-2.4) K/uL [place] # (Auto) (0.0-0.8) K/uL Eos # (Auto) (0.0-0.7) K/uL Baso # (Auto) (0.0-0.1) K/uL Nucleated RBC % /100WBC Nucleated RBCs # K/uL Sodium (136-148) mmol/L Potassium (3.5-5.1) mmol/L Chloride (98-107) mmol/L Carbon Dioxide (21.0-32.0) mmol/L BUN (7.0-18.0) mg/dL Creatinine (0.8-1.3) mg/dL Est Cr Clr Drug Dosing mL/min Estimated GFR (MDRD) ml/min Glucose (74-106) mg/dL POC Glucose 258 H (60-110) mg/dL Calcium (8.5-10.1) mg/dL Total Bilirubin (0.2-1.0) mg/dL AST (15-37) IU/L ALT (14-63) IU/L Alkaline Phosphatase (46-116) U/L Total Protein (6.4-8.2) g/dL Albumin (3.4-5.0) g/dL Globulin (2.6-4.0) g/dL Albumin/Globulin Ratio (0.9-1.6) [place] Results Last 24 Hours: Microbiology 01/23/20 09:37 Aerobic Blood Culture - Final Blood - Venous - Lab Draw Anaerobic Blood Culture - Final 01/23/20 15:26 Aerobic Blood Culture - Final Blood - Venous Anaerobic Blood Culture - Final 01/23/20 04:55 Aerobic Blood Culture - Final Blood - Venous - Lab Draw Anaerobic Blood Culture - Final 01/23/20 04:45 Aerobic Blood Culture - Final Blood - Venous Anaerobic Blood Culture - Final Escherichia Coli 01/23/20 06:55 Urine Culture - Final Urine, Bladder Escherichia Coli 01/24/20 00:25 Aerobic Blood Culture - Preliminary Blood - Venous - Lab Draw NO GROWTH AFTER 1 DAY Anaerobic Blood Culture - Preliminary NO GROWTH AFTER 1 DAY 01/24/20 00:15 Aerobic Blood Culture - Preliminary Blood - Venous NO GROWTH AFTER 1 DAY Anaerobic Blood Culture - Preliminary NO GROWTH AFTER 1 DAY Med Orders - Current: Current Medications Dextrose/Water (Dextrose 50% In Water) 50 ml IV ASDIRECTED PRN PRN Reason: Hypoglycemia Last Admin: 01/23/20 21:17 Dose: 50 ml Documented by: Famotidine (Pepcid) 40 mg IV BID [facility] Last Admin: 01/25/20 10:15 Dose: 40 mg Documented by: Glucagon (Glucagen) 1 mg IM ASDIRECTED PRN PRN Reason: Hypoglycemia Lactated Ringer's (Ringers, Lactated) 1,000 mls @ 100 mls/hr IV ASDIRECTED [facility] Last Admin: 01/25/20 10:24 Dose: 100 mls/hr Documented by: Ceftriaxone Sodium/Dextrose 1 (gm/ Premix) 50 mls @ 100 mls/hr IV Q24H [facility] Insulin Aspart (Novolog) 0 unit SUBCUT Q6H [facility]; Protocol Last Admin: 01/25/20 08:29 Dose: 4 unit Documented by: Insulin Glargine (Lantus Solostar) 20 units SUBCUT BEDTIME [facility] Last Admin: 01/24/20 21:48 Dose: 20 units Documented by: Metoclopramide HCl (Reglan) 10 mg IVPUSH Q4H PRN PRN Reason: Nausea/Vomiting Morphine Sulfate (Morphine) 2 mg IVPUSH Q4H PRN PRN Reason: Pain Last Admin: 01/25/20 03:55 Dose: 2 mg Documented by: Suboxone 8/ Sl (Tablets) 0 each PO .ASNEEDED PRN PRN Reason: OPIOID CRAVING Last Admin: 01/25/20 10:27 Dose: 0.25 each Documented by: Sodium Chloride (Saline Flush) 2.5 ml FLUSH ASDIRECTED PRN PRN Reason: Keep Vein Open Last Admin: 01/23/20 04:07 Dose: 2.5 ml Documented by: Sodium Chloride (Saline Flush) 10 ml FLUSH ASDIRECTED PRN PRN Reason: Keep Vein Open Last Admin: 01/23/20 04:07 Dose: 10 ml Documented by: Discontinued Medications Dextrose/Water (Dextrose 50% In Water) 50 ml IV ASDIRECTED PRN PRN Reason: Hypoglycemia Dextrose/Water (Dextrose 50% In Water) 50 ml IV ASDIRECTED PRN PRN Reason: Hypoglycemia Dextrose/Water (Dextrose 50% In Water) 50 ml IV ASDIRECTED PRN PRN Reason: Hypoglycemia Dextrose/Water (Dextrose 50% In Water) 25 ml IV ASDIRECTED PRN PRN Reason: Hypoglycemia Diphenhydramine HCl (Benadryl) 50 mg IVPUSH ONETIME ONE Stop: 01/23/20 04:27 Last Admin: 01/23/20 04:37 Dose: 50 mg Documented by: Diphenhydramine HCl (Benadryl) 25 mg IVPUSH ONETIME ONE Stop: 01/24/20 09:02 Last Admin: 01/24/20 09:34 Dose: 25 mg Documented by: Diphenhydramine HCl (Benadryl) 25 mg IVPUSH ONETIME ONE Stop: 01/24/20 21:38 Last Admin: 01/24/20 21:47 Dose: 25 mg Documented by: Diphenhydramine HCl (Benadryl) 25 mg IVPUSH ONETIME ONE Stop: 01/25/20 07:45 Last Admin: 01/25/20 08:15 Dose: 25 mg Documented by: Famotidine (Pepcid) 20 mg PO ONETIME ONE Stop: 01/25/20 08:11 Last Admin: 01/25/20 08:23 Dose: 20 mg Documented by: Glucagon (Glucagen) 1 mg IM ASDIRECTED PRN PRN Reason: Hypoglycemia Glucagon (Glucagen) 1 mg IM ASDIRECTED PRN PRN Reason: Hypoglycemia Glucagon (Glucagen) 1 mg IM ASDIRECTED PRN PRN Reason: Hypoglycemia Haloperidol Lactate (Haldol) 3 mg IM ONETIME ONE Stop: 01/23/20 03:56 Last Admin: 01/23/20 04:03 Dose: 3 mg Documented by: Hydromorphone HCl (Dilaudid) 1 mg IVPUSH ONETIME ONE Stop: 01/23/20 04:27 Last Admin: 01/23/20 04:37 Dose: 1 mg Documented by: Lactated Ringer's (Ringers, Lactated) 1,000 mls @ 999 mls/hr IV .BOLUS ONE Stop: 01/23/20 04:39 Last Admin: 01/23/20 04:04 Dose: 999 mls/hr Documented by: Lactated Ringer's (Ringers, Lactated) 1,000 mls @ 999 mls/hr IV .BOLUS ONE Stop: 01/23/20 05:26 Last Admin: 01/23/20 04:39 Dose: 999 mls/hr Documented by: Pantoprazole Sodium 40 mg/ (Sodium Chloride) 20 mls @ 420 mls/hr IVPUSH ONETIME ONE Stop: 01/23/20 04:29 Last Admin: 01/23/20 04:36 Dose: 420 mls/hr Documented by: Lactated Ringer's (Ringers, Lactated) 1,000 mls @ 999 mls/hr IV .BOLUS ONE Stop: 01/23/20 06:55 Last Admin: 01/23/20 06:02 Dose: 999 mls/hr Documented by: Dextrose/Sodium Chloride (Dextrose 5%-Normal Saline) 1,000 mls @ 75 mls/hr IV ASDIRECTED [facility] Last Admin: 01/23/20 09:36 Dose: 75 mls/hr Documented by: Potassium Chloride 40 meq/ (Premix) 100 mls @ 25 mls/hr IV ONETIME ONE Stop: 01/23/20 14:21 Last Admin: 01/23/20 10:49 Dose: 25 mls/hr Documented by: Potassium Chloride/Sodium Chloride (Normal Saline With 40 Meq Kcl) 1,000 mls @ 150 mls/hr IV ASDIRECTED [facility] Stop: 01/23/20 21:24 Last Admin: 01/23/20 17:26 Dose: 150 mls/hr Documented by: Ceftriaxone Sodium 1 gm/ (Sodium Chloride) 50 mls @ 100 mls/hr IV Q24H [facility] Last Admin: 01/23/20 17:50 Dose: Not Given Documented by: Ceftriaxone Sodium/Dextrose 1 (gm/ Premix) 50 mls @ 100 mls/hr IV Q24H [facility] Meropenem/Sodium Chloride 1 gm (/ Premix) 50 mls @ 100 mls/hr IV Q8H [facility] Last Admin: 01/25/20 08:25 Dose: 100 mls/hr Documented by: Dextrose/Sodium Chloride (Dextrose 5%-Normal Saline) 1,000 mls @ 100 mls/hr IV ASDIRECTED [facility] Piperacillin Sod/Tazobactam (Sod 3.375 gm/ Sodium Chloride) 50 mls @ 100 mls/hr IV Q6H [facility] Last Admin: 01/23/20 22:24 Dose: 100 mls/hr Documented by: Dextrose/Sodium Chloride (Dextrose 5%-Normal Saline) 1,000 mls @ 100 mls/hr IV ASDIRECTED [facility] Last Admin: 01/24/20 13:24 Dose: 100 mls/hr Documented by: Lactated Ringer's (Ringers, Lactated) 1,000 mls @ 500 mls/hr IV .BOLUS ONE Stop: 01/24/20 01:30 Last Admin: 01/23/20 23:45 Dose: 500 mls/hr Documented by: Lactated Ringer's (Ringers, Lactated) 1,000 mls @ 1,000 mls/hr IV .BOLUS ONE Stop: 01/24/20 10:21 Last Admin: 01/24/20 09:38 Dose: 1,000 mls/hr Documented by: Insulin Glargine (Lantus Solostar) 20 units SUBCUT BEDTIME [facility] Insulin Glargine (Lantus Solostar) 10 units SUBCUT ONETIME ONE Stop: 01/23/20 21:01 Last Admin: 01/23/20 22:23 Dose: 10 units Documented by: Insulin Human Regular (Novolin R) 8 unit IVPUSH ONETIME ONE; Protocol Stop: 01/23/20 04:55 Last Admin: 01/23/20 05:14 Dose: 8 unit Documented by: Insulin Human Regular (Novolin R) 5 unit IVPUSH ONETIME ONE; Protocol Stop: 01/23/20 05:37 Last Admin: 01/23/20 05:44 Dose: 5 unit Documented by: Metoclopramide HCl (Reglan) 10 mg IVPUSH ONETIME ONE Stop: 01/23/20 04:27 Last Admin: 01/23/20 04:39 Dose: 10 mg Documented by: Ondansetron HCl (Zofran) 4 mg IVPUSH Q4H PRN PRN Reason: Nausea Last Admin: 01/25/20 03:55 Dose: 4 mg Documented by: - Exam General: Alert, Oriented HEENT: EOMI, Mucous Membr. Moist/[place] Lungs: Clear to Auscultation, Normal Respiratory Effort Cardiovascular: Regular Rate, Regular Rhythm GI/Abdominal Exam: Tender. No: Distended, Guarding, Rebound Back Exam: Normal Inspection Extremities: Normal Inspection Skin: Warm Neurological: No New Focal Deficit Psy/Mental Status: Alert Sepsis Event Note - Evaluation Sepsis Screening Result: No Definite Risk - Focused Exam Vital Signs: Vital Signs Temp Pulse Resp BP Pulse Ox 01/25/20 08:00 97.8 F 98 18 122/77 93 L 01/25/20 04:00 98.1 F 103 H 16 121/81 98 - Problem List Review Problem List Initiated/Reviewed/Updated: Yes - My Orders Last 24 Hours: My Active Orders 01/25/20 08:21 Metoclopramide [Reglan] 10 mg IVPUSH Q4H PRN 01/25/20 09:00 Famotidine [Pepcid] 40 mg IV BID Patient's Own Medication [Ptom] 0 each PO .ASNEEDED PRN 01/26/20 05:11 CBC WITH AUTO DIFF [HEME] DAILY COMPREHENSIVE METABOLIC PN,CMP [CHEM] AM 01/27/20 05:11 CBC WITH AUTO DIFF [HEME] DAILY COMPREHENSIVE METABOLIC PN,CMP [CHEM] AM - Plan Plan:: 24 yo male who presented with abdominal pain and nausea. He was found to have hyperglycemia and hydronephrosis. Sepsis in setting of +Bcx (gram negative rods): Switch from Meropenem to Rocephin w. sensitivity results. -Pain control w. Morphine for now -Pruritus: start daily Pepcid+Zyrtec restart pt. home dose of Suboxone for concerns for opioid withdrawal. -Clements in place w.o issue: producing urine; maintain in-place until seen by Urology in outpatient basis; appointment in 2-weeks scheduled. -Continue LA+SSI (increase to medium dosing) <RanjeetMigule - Last Filed: 01/25/20 20:30> - Patient Data Vitals - Most Recent: Last Vital Signs Temp 36.5 C 01/25/20 12:00 Pulse 109 H 01/25/20 12:00 Resp 16 01/25/20 12:00 BP 143/94 H 01/25/20 12:00 Pulse Ox 93 L 01/25/20 08:00 I&O - Last 24 Hours: Intake & Output 01/25/20 01/25/20 01/25/20 06:59 14:59 22:59 Intake Total 1200 1225 Output Total 2100 1650 Balance -900 -425 Lab Results Last 24 Hours: Laboratory Results - last 24 hr 01/24/20 01/25/20 01/25/20 Range/Units 21:00 03:49 05:12 WBC 9.90 (4.0-11.0) K/uL RBC 3.73 L (4.50-5.90) M/uL Hgb 9.7 L (13.0-17.0) g/dL Hct 31.4 L (38.0-50.0) % MCV 84.2 (80.0-98.0) fL MCH 26.0 L (27.0-32.0) pg MCHC 30.9 L (31.0-37.0) g/dL RDW Std Deviation 46.7 (28.0-62.0) fl RDW Coeff of Erika 15 (11.0-15.0) % Plt Count 188 (150-400) K/uL MPV 10.20 (7.40-12.00) fL Neut % (Auto) 86.4 H (48.0-80.0) % Lymph % (Auto) 9.7 L (16.0-40.0) % [place] % (Auto) 3.7 (0.0-15.0) % Eos % (Auto) 0.0 (0.0-7.0) % Baso % (Auto) 0.2 (0.0-1.5) % Neut # (Auto) 8.6 H (1.4-5.7) K/uL Lymph # (Auto) 1.0 (0.6-2.4) K/uL [place] # (Auto) 0.4 (0.0-0.8) K/uL Eos # (Auto) 0.0 (0.0-0.7) K/uL Baso # (Auto) 0.0 (0.0-0.1) K/uL Nucleated RBC % 0.0 /100WBC Nucleated RBCs # 0 K/uL Sodium (136-148) mmol/L Potassium (3.5-5.1) mmol/L Chloride (98-107) mmol/L Carbon Dioxide (21.0-32.0) mmol/L BUN (7.0-18.0) mg/dL Creatinine (0.8-1.3) mg/dL Est Cr Clr Drug Dosing mL/min Estimated GFR (MDRD) ml/min Glucose (74-106) mg/dL POC Glucose 221 H 243 H (60-110) mg/dL Calcium (8.5-10.1) mg/dL Total Bilirubin (0.2-1.0) mg/dL AST (15-37) IU/L ALT (14-63) IU/L Alkaline Phosphatase (46-116) U/L Total Protein (6.4-8.2) g/dL Albumin (3.4-5.0) g/dL Globulin (2.6-4.0) g/dL Albumin/Globulin Ratio (0.9-1.6) 01/25/20 01/25/20 01/25/20 Range/Units 05:12 12:21 15:14 WBC (4.0-11.0) K/uL RBC (4.50-5.90) M/uL Hgb (13.0-17.0) g/dL Hct (38.0-50.0) % MCV (80.0-98.0) fL MCH (27.0-32.0) pg MCHC (31.0-37.0) g/dL RDW Std Deviation (28.0-62.0) fl RDW Coeff of Erika (11.0-15.0) % Plt Count (150-400) K/uL MPV (7.40-12.00) fL Neut % (Auto) (48.0-80.0) % Lymph % (Auto) (16.0-40.0) % [place] % (Auto) (0.0-15.0) % Eos % (Auto) (0.0-7.0) % Baso % (Auto) (0.0-1.5) % Neut # (Auto) (1.4-5.7) K/uL Lymph # (Auto) (0.6-2.4) K/uL [place] # (Auto) (0.0-0.8) K/uL Eos # (Auto) (0.0-0.7) K/uL Baso # (Auto) (0.0-0.1) K/uL Nucleated RBC % /100WBC Nucleated RBCs # K/uL Sodium 147 (136-148) mmol/L Potassium 3.8 (3.5-5.1) mmol/L Chloride 112 H (98-107) mmol/L Carbon Dioxide 23.3 (21.0-32.0) mmol/L BUN 20 H (7.0-18.0) mg/dL Creatinine 1.0 (0.8-1.3) mg/dL Est Cr Clr Drug Dosing 84.00 mL/min Estimated GFR (MDRD) > 60.0 ml/min Glucose 287 H (74-106) mg/dL POC Glucose 258 H 277 H (60-110) mg/dL Calcium 9.0 (8.5-10.1) mg/dL Total Bilirubin 0.3 (0.2-1.0) mg/dL AST 18 (15-37) IU/L ALT 19 (14-63) IU/L Alkaline Phosphatase 84 (46-116) U/L Total Protein 6.8 (6.4-8.2) g/dL Albumin 2.0 L (3.4-5.0) g/dL Globulin 4.8 H (2.6-4.0) g/dL Albumin/Globulin Ratio 0.4 L (0.9-1.6) [place] Results Last 24 Hours: Microbiology 01/23/20 09:37 Aerobic Blood Culture - Final Blood - Venous - Lab Draw Anaerobic Blood Culture - Final 01/23/20 15:26 Aerobic Blood Culture - Final Blood - Venous Anaerobic Blood Culture - Final 01/23/20 04:55 Aerobic Blood Culture - Final Blood - Venous - Lab Draw Anaerobic Blood Culture - Final 01/23/20 04:45 Aerobic Blood Culture - Final Blood - Venous Anaerobic Blood Culture - Final Escherichia Coli 01/23/20 06:55 Urine Culture - Final Urine, Bladder Escherichia Coli 01/24/20 00:25 Aerobic Blood Culture - Preliminary Blood - Venous - Lab Draw NO GROWTH AFTER 1 DAY Anaerobic Blood Culture - Preliminary NO GROWTH AFTER 1 DAY 01/24/20 00:15 Aerobic Blood Culture - Preliminary Blood - Venous NO GROWTH AFTER 1 DAY Anaerobic Blood Culture - Preliminary NO GROWTH AFTER 1 DAY Med Orders - Current: Current Medications Dextrose/Water (Dextrose 50% In Water) 50 ml IV ASDIRECTED PRN PRN Reason: Hypoglycemia Last Admin: 01/23/20 21:17 Dose: 50 ml Documented by: Famotidine (Pepcid) 40 mg IV BID [facility] Last Admin: 01/25/20 20:22 Dose: 40 mg Documented by: Glucagon (Glucagen) 1 mg IM ASDIRECTED PRN PRN Reason: Hypoglycemia Ceftriaxone Sodium/Dextrose 1 (gm/ Premix) 50 mls @ 100 mls/hr IV Q24H [facility] Last Admin: 01/25/20 16:14 Dose: 100 mls/hr Documented by: Lactated Ringer's (Ringers, Lactated) 1,000 mls @ 100 mls/hr IV ASDIRECTED [facility] Insulin Aspart (Novolog) 0 unit SUBCUT Q6H [facility]; Protocol Last Admin: 01/25/20 19:15 Dose: 6 units Documented by: Insulin Glargine (Lantus Solostar) 20 units SUBCUT BEDTIME [facility] Last Admin: 01/25/20 20:26 Dose: 20 units Documented by: Metoclopramide HCl (Reglan) 10 mg IVPUSH Q4H PRN PRN Reason: Nausea/Vomiting Last Admin: 01/25/20 12:30 Dose: 10 mg Documented by: Morphine Sulfate (Morphine) 2 mg IVPUSH Q6H PRN PRN Reason: Pain Suboxone 8/2 Sl (Tablets) 0 each PO .ASNEEDED PRN PRN Reason: OPIOID CRAVING Last Admin: 01/25/20 17:21 Dose: 0.25 each Documented by: Sodium Chloride (Saline Flush) 2.5 ml FLUSH ASDIRECTED PRN PRN Reason: Keep Vein Open Last Admin: 01/23/20 04:07 Dose: 2.5 ml Documented by: Sodium Chloride (Saline Flush) 10 ml FLUSH ASDIRECTED PRN PRN Reason: Keep Vein Open Last Admin: 01/23/20 04:07 Dose: 10 ml Documented by: Discontinued Medications Cetirizine HCl (Zyrtec) 10 mg PO DAILY [facility] Cetirizine HCl (Zyrtec) 10 mg PO ONETIME ONE Stop: 01/25/20 17:26 Last Admin: 01/25/20 17:58 Dose: Not Given Documented by: Dextrose/Water (Dextrose 50% In Water) 50 ml IV ASDIRECTED PRN PRN Reason: Hypoglycemia Dextrose/Water (Dextrose 50% In Water) 50 ml IV ASDIRECTED PRN PRN Reason: Hypoglycemia Dextrose/Water (Dextrose 50% In Water) 50 ml IV ASDIRECTED PRN PRN Reason: Hypoglycemia Dextrose/Water (Dextrose 50% In Water) 25 ml IV ASDIRECTED PRN PRN Reason: Hypoglycemia Diphenhydramine HCl (Benadryl) 50 mg IVPUSH ONETIME ONE Stop: 01/23/20 04:27 Last Admin: 01/23/20 04:37 Dose: 50 mg Documented by: Diphenhydramine HCl (Benadryl) 25 mg IVPUSH ONETIME ONE Stop: 01/24/20 09:02 Last Admin: 01/24/20 09:34 Dose: 25 mg Documented by: Diphenhydramine HCl (Benadryl) 25 mg IVPUSH ONETIME ONE Stop: 01/24/20 21:38 Last Admin: 01/24/20 21:47 Dose: 25 mg Documented by: Diphenhydramine HCl (Benadryl) 25 mg IVPUSH ONETIME ONE Stop: 01/25/20 07:45 Last Admin: 01/25/20 08:15 Dose: 25 mg Documented by: Famotidine (Pepcid) 20 mg PO ONETIME ONE Stop: 01/25/20 08:11 Last Admin: 01/25/20 08:23 Dose: 20 mg Documented by: Glucagon (Glucagen) 1 mg IM ASDIRECTED PRN PRN Reason: Hypoglycemia Glucagon (Glucagen) 1 mg IM ASDIRECTED PRN PRN Reason: Hypoglycemia Glucagon (Glucagen) 1 mg IM ASDIRECTED PRN PRN Reason: Hypoglycemia Haloperidol Lactate (Haldol) 3 mg IM ONETIME ONE Stop: 01/23/20 03:56 Last Admin: 01/23/20 04:03 Dose: 3 mg Documented by: Hydromorphone HCl (Dilaudid) 1 mg IVPUSH ONETIME ONE Stop: 01/23/20 04:27 Last Admin: 01/23/20 04:37 Dose: 1 mg Documented by: Lactated Ringer's (Ringers, Lactated) 1,000 mls @ 999 mls/hr IV .BOLUS ONE Stop: 01/23/20 04:39 Last Admin: 01/23/20 04:04 Dose: 999 mls/hr Documented by: Lactated Ringer's (Ringers, Lactated) 1,000 mls @ 999 mls/hr IV .BOLUS ONE Stop: 01/23/20 05:26 Last Admin: 01/23/20 04:39 Dose: 999 mls/hr Documented by: Pantoprazole Sodium 40 mg/ (Sodium Chloride) 20 mls @ 420 mls/hr IVPUSH ONETIME ONE Stop: 01/23/20 04:29 Last Admin: 01/23/20 04:36 Dose: 420 mls/hr Documented by: Lactated Ringer's (Ringers, Lactated) 1,000 mls @ 999 mls/hr IV .BOLUS ONE Stop: 01/23/20 06:55 Last Admin: 01/23/20 06:02 Dose: 999 mls/hr Documented by: Dextrose/Sodium Chloride (Dextrose 5%-Normal Saline) 1,000 mls @ 75 mls/hr IV ASDIRECTED [facility] Last Admin: 01/23/20 09:36 Dose: 75 mls/hr Documented by: Potassium Chloride 40 meq/ (Premix) 100 mls @ 25 mls/hr IV ONETIME ONE Stop: 01/23/20 14:21 Last Admin: 01/23/20 10:49 Dose: 25 mls/hr Documented by: Potassium Chloride/Sodium Chloride (Normal Saline With 40 Meq Kcl) 1,000 mls @ 150 mls/hr IV ASDIRECTED [facility] Stop: 01/23/20 21:24 Last Admin: 01/23/20 17:26 Dose: 150 mls/hr Documented by: Ceftriaxone Sodium 1 gm/ (Sodium Chloride) 50 mls @ 100 mls/hr IV Q24H [facility] Last Admin: 01/23/20 17:50 Dose: Not Given Documented by: Ceftriaxone Sodium/Dextrose 1 (gm/ Premix) 50 mls @ 100 mls/hr IV Q24H [facility] Meropenem/Sodium Chloride 1 gm (/ Premix) 50 mls @ 100 mls/hr IV Q8H [facility] Last Admin: 01/25/20 08:25 Dose: 100 mls/hr Documented by: Dextrose/Sodium Chloride (Dextrose 5%-Normal Saline) 1,000 mls @ 100 mls/hr IV ASDIRECTED [facility] Piperacillin Sod/Tazobactam (Sod 3.375 gm/ Sodium Chloride) 50 mls @ 100 mls/hr IV Q6H [facility] Last Admin: 01/23/20 22:24 Dose: 100 mls/hr Documented by: Dextrose/Sodium Chloride (Dextrose 5%-Normal Saline) 1,000 mls @ 100 mls/hr IV ASDIRECTED [facility] Last Admin: 01/24/20 13:24 Dose: 100 mls/hr Documented by: Lactated Ringer's (Ringers, Lactated) 1,000 mls @ 500 mls/hr IV .BOLUS ONE Stop: 01/24/20 01:30 Last Admin: 01/23/20 23:45 Dose: 500 mls/hr Documented by: Lactated Ringer's (Ringers, Lactated) 1,000 mls @ 1,000 mls/hr IV .BOLUS ONE Stop: 01/24/20 10:21 Last Admin: 01/24/20 09:38 Dose: 1,000 mls/hr Documented by: Lactated Ringer's (Ringers, Lactated) 1,000 mls @ 100 mls/hr IV ASDIRECTED [facility] Last Admin: 01/25/20 10:24 Dose: 100 mls/hr Documented by: Insulin Aspart (Novolog) 0 unit SUBCUT Q6H [facility]; Protocol Last Admin: 01/25/20 15:18 Dose: 6 unit Documented by: Insulin Glargine (Lantus Solostar) 20 units SUBCUT BEDTIME [facility] Insulin Glargine (Lantus Solostar) 10 units SUBCUT ONETIME ONE Stop: 01/23/20 21:01 Last Admin: 01/23/20 22:23 Dose: 10 units Documented by: Insulin Human Regular (Novolin R) 8 unit IVPUSH ONETIME ONE; Protocol Stop: 01/23/20 04:55 Last Admin: 01/23/20 05:14 Dose: 8 unit Documented by: Insulin Human Regular (Novolin R) 5 unit IVPUSH ONETIME ONE; Protocol Stop: 01/23/20 05:37 Last Admin: 01/23/20 05:44 Dose: 5 unit Documented by: Metoclopramide HCl (Reglan) 10 mg IVPUSH ONETIME ONE Stop: 01/23/20 04:27 Last Admin: 01/23/20 04:39 Dose: 10 mg Documented by: Morphine Sulfate (Morphine) 2 mg IVPUSH Q4H PRN PRN Reason: Pain Last Admin: 01/25/20 17:37 Dose: 2 mg Documented by: Ondansetron HCl (Zofran) 4 mg IVPUSH Q4H PRN PRN Reason: Nausea Last Admin: 01/25/20 03:55 Dose: 4 mg Documented by: Sepsis Event Note - Focused Exam Vital Signs: Vital Signs Temp Pulse Resp BP 01/25/20 12:00 36.5 C 109 H 16 143/94 H - Problem List & Annotations (1) Bacteremia SNOMED Code(s): 6905567 Code(s): R78.81 - BACTEREMIA Status: Acute Current Visit: Yes (2) Abdominal pain SNOMED Code(s): 99050666 Code(s): R10.9 - UNSPECIFIED ABDOMINAL PAIN Status: Acute Current Visit: Yes (3) Itching SNOMED Code(s): 103206829 Code(s): L29.9 - PRURITUS, UNSPECIFIED Status: Acute Current Visit: Yes (4) Abdominal pain SNOMED Code(s): 68909951 Code(s): R10.9 - UNSPECIFIED ABDOMINAL PAIN Status: Chronic Priority: High Current Visit: Yes Qualifiers: Abdominal location: upper abdomen, unspecified Qualified Code(s): R10.10 - Upper abdominal pain, unspecified (5) Diabetes type 1, uncontrolled SNOMED Code(s): 58732445, [id number] Code(s): E10.65 - TYPE 1 DIABETES MELLITUS WITH HYPERGLYCEMIA Status: Chronic Priority: Medium Current Visit: Yes Qualifiers: Glycemic state: with hyperglycemia Qualified Code(s): E10.65 - Type 1 diabetes mellitus with hyperglycemia (6) Chronic abdominal pain SNOMED Code(s): 178244666 Code(s): R10.9 - UNSPECIFIED ABDOMINAL PAIN; G89.29 - OTHER CHRONIC PAIN Status: Acute Current Visit: No (7) Diabetic gastroparesis SNOMED Code(s): 119076322 Code(s): E11.43 - TYPE 2 DIABETES W DIABETIC AUTONOMIC (POLY)NEUROPATHY; K31.84 - GASTROPARESIS Status: Chronic Priority: Medium Current Visit: No (8) History of neurogenic bladder SNOMED Code(s): 035947552 Code(s): Z87.448 - PERSONAL HISTORY OF OTHER DISEASES OF URINARY SYSTEM Status: Chronic Current Visit: No - My Orders Last 24 Hours: My Active Orders 01/25/20 Breakfast Clear Liquid Diet [DIET] I have seen and evaluated the patient. I have discussed findings and treatment plan with resident. I agree with the assessment and plan in the following note.
[2020-01-25] MEDS: cefTRIAXone 1 GM in Premix Bag 1 BAG IV SCH (16:14)
[2020-01-25] MEDS ORDERED: Cetirizine 10 MG Tab PO ONE ×2 (17:25→21:45)
[2020-01-25] MEDS ORDERED: Lactated Ringers 1,000 ML IV SCH (19:30)
[2020-01-25] MEDS: Insulin Glargine,Human Rec. Analog 100 Units/ML 3 ML Pen SUBCUT SCH (20:26)
[2020-01-25] MEDS ORDERED: Famotidine 20 MG Tab PO SCH (21:00)
[2020-01-26 05:50] LABS: BLOOD UREA NITROGEN,BUN 28 mg/dL (7.0-18.0); CARBON DIOXIDE,CO2 24.2 mmol/L (21.0-32.0); CHLORIDE,CL 114 mmol/L (98-107); GLUCOSE RANDOM 206 mg/dL (74-106); POTASSIUM,K 3.7 mmol/L (3.5-5.1); SODIUM,NA 150 mmol/L (136-148)
[2020-01-26] MEDS: Morphine 2 MG/ML SYRINGE IVPUSH PRN ×2 (06:13→15:29)
[2020-01-26] MEDS: Insulin Aspart 100 Units/ML 3 ML Pen SUBCUT SCH ×3 (06:14→17:45)
[2020-01-26] MEDS: Famotidine 20 MG/2 ML SDV IV SCH ×3 (08:57→21:19)
[2020-01-26] MEDS: SUBOXONE PO PRN ×2 (08:59→15:32)
[2020-01-26] MEDS ORDERED: Cetirizine 10 MG Tab PO SCH (09:00)
[2020-01-26] MEDS ORDERED: Haloperidol Lactate 5 MG/ML SDV IM ONE (09:00)
--- NOTE | 2020-01-26 09:07 | PCM.PN ---
<Nereida Dc - Last Filed: 01/26/20 12:34> - General Info Date of Service: 01/26/20 Subjective Update: Bedside: c.o nausea/vomiting w. abdominal pain. Minimal change from yesterday/last night. Tried jello overnight but did not tolerate this; decreased appetite. Functional Status: Denies: Pain Controlled - Review of Systems General: Reports: Fatigue HEENT: Reports: No Symptoms Pulmonary: Reports: No Symptoms Cardiovascular: Reports: No Symptoms Gastrointestinal: Reports: Abdominal Pain, Diarrhea, Nausea, Vomiting. Denies: Melena Genitourinary: Reports: No Symptoms Musculoskeletal: Reports: No Symptoms Skin: Denies: Rash Neurological: Reports: No Symptoms Psychiatric: Reports: No Symptoms - Patient Data Vitals - Most Recent: Last Vital Signs Temp 97.6 F 01/26/20 04:12 Pulse 92 01/26/20 04:12 Resp 18 01/26/20 04:12 BP 112/69 01/26/20 04:12 Pulse Ox 98 01/26/20 04:12 Weight - Most Recent: 51.256 kg I&O - Last 24 Hours: Intake & Output 01/25/20 01/26/20 01/26/20 22:59 06:59 14:59 Intake Total 1225 450 Output Total 1650 1500 Balance -425 -1050 Lab Results Last 24 Hours: Laboratory Results - last 24 hr 01/25/20 01/25/20 01/25/20 Range/Units 12:21 15:14 19:10 WBC (4.0-11.0) K/uL RBC (4.50-5.90) M/uL Hgb (13.0-17.0) g/dL Hct (38.0-50.0) % MCV (80.0-98.0) fL MCH (27.0-32.0) pg MCHC (31.0-37.0) g/dL RDW Std Deviation (28.0-62.0) fl RDW Coeff of Erika (11.0-15.0) % Plt Count (150-400) K/uL MPV (7.40-12.00) fL Neut % (Auto) (48.0-80.0) % Lymph % (Auto) (16.0-40.0) % [place] % (Auto) (0.0-15.0) % Eos % (Auto) (0.0-7.0) % Baso % (Auto) (0.0-1.5) % Neut # (Auto) (1.4-5.7) K/uL Lymph # (Auto) (0.6-2.4) K/uL [place] # (Auto) (0.0-0.8) K/uL Eos # (Auto) (0.0-0.7) K/uL Baso # (Auto) (0.0-0.1) K/uL Nucleated RBC % /100WBC Nucleated RBCs # K/uL Sodium (136-148) mmol/L Potassium (3.5-5.1) mmol/L Chloride (98-107) mmol/L Carbon Dioxide (21.0-32.0) mmol/L BUN (7.0-18.0) mg/dL Creatinine (0.8-1.3) mg/dL Est Cr Clr Drug Dosing mL/min Estimated GFR (MDRD) ml/min Glucose (74-106) mg/dL POC Glucose 258 H 277 H 286 H (60-110) mg/dL Calcium (8.5-10.1) mg/dL Total Bilirubin (0.2-1.0) mg/dL AST (15-37) IU/L ALT (14-63) IU/L Alkaline Phosphatase (46-116) U/L Total Protein (6.4-8.2) g/dL Albumin (3.4-5.0) g/dL Globulin (2.6-4.0) g/dL Albumin/Globulin Ratio (0.9-1.6) 01/25/20 01/26/20 01/26/20 Range/Units 23:58 04:55 04:55 WBC 10.39 (4.0-11.0) K/uL RBC 3.58 L (4.50-5.90) M/uL Hgb 9.3 L (13.0-17.0) g/dL Hct 29.8 L (38.0-50.0) % MCV 83.2 (80.0-98.0) fL MCH 26.0 L (27.0-32.0) pg MCHC 31.2 (31.0-37.0) g/dL RDW Std Deviation 46.1 (28.0-62.0) fl RDW Coeff of Erika 15 (11.0-15.0) % Plt Count 218 (150-400) K/uL MPV 9.90 (7.40-12.00) fL Neut % (Auto) 78.8 (48.0-80.0) % Lymph % (Auto) 17.6 (16.0-40.0) % [place] % (Auto) 3.4 (0.0-15.0) % Eos % (Auto) 0.1 (0.0-7.0) % Baso % (Auto) 0.1 (0.0-1.5) % Neut # (Auto) 8.2 H (1.4-5.7) K/uL Lymph # (Auto) 1.8 (0.6-2.4) K/uL [place] # (Auto) 0.4 (0.0-0.8) K/uL Eos # (Auto) 0.0 (0.0-0.7) K/uL Baso # (Auto) 0.0 (0.0-0.1) K/uL Nucleated RBC % 0.0 /100WBC Nucleated RBCs # 0 K/uL Sodium 150 H (136-148) mmol/L Potassium 3.7 (3.5-5.1) mmol/L Chloride 114 H (98-107) mmol/L Carbon Dioxide 24.2 (21.0-32.0) mmol/L BUN 28 H (7.0-18.0) mg/dL Creatinine 1.1 (0.8-1.3) mg/dL Est Cr Clr Drug Dosing 76.37 mL/min Estimated GFR (MDRD) > 60.0 ml/min Glucose 206 H (74-106) mg/dL POC Glucose 193 H (60-110) mg/dL Calcium 9.2 (8.5-10.1) mg/dL Total Bilirubin 0.4 (0.2-1.0) mg/dL AST 10 L (15-37) IU/L ALT 15 (14-63) IU/L Alkaline Phosphatase 74 (46-116) U/L Total Protein 6.5 (6.4-8.2) g/dL Albumin 1.9 L (3.4-5.0) g/dL Globulin 4.6 H (2.6-4.0) g/dL Albumin/Globulin Ratio 0.4 L (0.9-1.6) 01/26/20 Range/Units 06:02 WBC (4.0-11.0) K/uL RBC (4.50-5.90) M/uL Hgb (13.0-17.0) g/dL Hct (38.0-50.0) % MCV (80.0-98.0) fL MCH (27.0-32.0) pg MCHC (31.0-37.0) g/dL RDW Std Deviation (28.0-62.0) fl RDW Coeff of Erika (11.0-15.0) % Plt Count (150-400) K/uL MPV (7.40-12.00) fL Neut % (Auto) (48.0-80.0) % Lymph % (Auto) (16.0-40.0) % [place] % (Auto) (0.0-15.0) % Eos % (Auto) (0.0-7.0) % Baso % (Auto) (0.0-1.5) % Neut # (Auto) (1.4-5.7) K/uL Lymph # (Auto) (0.6-2.4) K/uL [place] # (Auto) (0.0-0.8) K/uL Eos # (Auto) (0.0-0.7) K/uL Baso # (Auto) (0.0-0.1) K/uL Nucleated RBC % /100WBC Nucleated RBCs # K/uL Sodium (136-148) mmol/L Potassium (3.5-5.1) mmol/L Chloride (98-107) mmol/L Carbon Dioxide (21.0-32.0) mmol/L BUN (7.0-18.0) mg/dL Creatinine (0.8-1.3) mg/dL Est Cr Clr Drug Dosing mL/min Estimated GFR (MDRD) ml/min Glucose (74-106) mg/dL POC Glucose 170 H (60-110) mg/dL Calcium (8.5-10.1) mg/dL Total Bilirubin (0.2-1.0) mg/dL AST (15-37) IU/L ALT (14-63) IU/L Alkaline Phosphatase (46-116) U/L Total Protein (6.4-8.2) g/dL Albumin (3.4-5.0) g/dL Globulin (2.6-4.0) g/dL Albumin/Globulin Ratio (0.9-1.6) Donal[place] Results Last 24 Hours: Microbiology 01/24/20 00:25 Aerobic Blood Culture - Preliminary Blood - Venous - Lab Draw NO GROWTH AFTER 2 DAYS Anaerobic Blood Culture - Preliminary NO GROWTH AFTER 2 DAYS 01/24/20 00:15 Aerobic Blood Culture - Preliminary Blood - Venous NO GROWTH AFTER 2 DAYS Anaerobic Blood Culture - Preliminary NO GROWTH AFTER 2 DAYS 01/23/20 09:37 Aerobic Blood Culture - Final Blood - Venous - Lab Draw Anaerobic Blood Culture - Final 01/23/20 15:26 Aerobic Blood Culture - Final Blood - Venous Anaerobic Blood Culture - Final 01/23/20 04:55 Aerobic Blood Culture - Final Blood - Venous - Lab Draw Anaerobic Blood Culture - Final 01/23/20 04:45 Aerobic Blood Culture - Final Blood - Venous Anaerobic Blood Culture - Final Escherichia Coli 01/23/20 06:55 Urine Culture - Final Urine, Bladder Escherichia Coli Med Orders - Current: Current Medications Dextrose/Water (Dextrose 50% In Water) 50 ml IV ASDIRECTED PRN PRN Reason: Hypoglycemia Last Admin: 01/23/20 21:17 Dose: 50 ml Documented by: Famotidine (Pepcid) 40 mg IV BID [facility] Last Admin: 01/26/20 08:57 Dose: 40 mg Documented by: Glucagon (Glucagen) 1 mg IM ASDIRECTED PRN PRN Reason: Hypoglycemia Ceftriaxone Sodium/Dextrose 1 (gm/ Premix) 50 mls @ 100 mls/hr IV Q24H [facility] Last Admin: 01/25/20 16:14 Dose: 100 mls/hr Documented by: Lactated Ringer's (Ringers, Lactated) 1,000 mls @ 100 mls/hr IV ASDIRECTED [facility] Last Admin: 01/25/20 20:30 Dose: 100 mls/hr Documented by: Insulin Aspart (Novolog) 0 unit SUBCUT Q6H [facility]; Protocol Last Admin: 01/26/20 06:14 Dose: 2 units Documented by: Insulin Glargine (Lantus Solostar) 20 units SUBCUT BEDTIME [facility] Last Admin: 01/25/20 20:26 Dose: 20 units Documented by: Metoclopramide HCl (Reglan) 10 mg IVPUSH Q4H PRN PRN Reason: Nausea/Vomiting Last Admin: 01/25/20 12:30 Dose: 10 mg Documented by: Morphine Sulfate (Morphine) 2 mg IVPUSH Q6H PRN PRN Reason: Pain Last Admin: 01/26/20 06:13 Dose: 2 mg Documented by: Suboxone 8/2 Sl (Tablets) 0 each PO .ASNEEDED PRN PRN Reason: OPIOID CRAVING Last Admin: 01/26/20 08:59 Dose: 0.25 each Documented by: Sodium Chloride (Saline Flush) 2.5 ml FLUSH ASDIRECTED PRN PRN Reason: Keep Vein Open Last Admin: 01/23/20 04:07 Dose: 2.5 ml Documented by: Sodium Chloride (Saline Flush) 10 ml FLUSH ASDIRECTED PRN PRN Reason: Keep Vein Open Last Admin: 01/23/20 04:07 Dose: 10 ml Documented by: Discontinued Medications Cetirizine HCl (Zyrtec) 10 mg PO DAILY [facility] Cetirizine HCl (Zyrtec) 10 mg PO ONETIME ONE Stop: 01/25/20 17:26 Last Admin: 01/25/20 17:58 Dose: Not Given Documented by: Cetirizine HCl (Zyrtec) 10 mg PO ONETIME ONE Stop: 01/25/20 21:46 Last Admin: 01/25/20 21:55 Dose: 10 mg Documented by: Dextrose/Water (Dextrose 50% In Water) 50 ml IV ASDIRECTED PRN PRN Reason: Hypoglycemia Dextrose/Water (Dextrose 50% In Water) 50 ml IV ASDIRECTED PRN PRN Reason: Hypoglycemia Dextrose/Water (Dextrose 50% In Water) 50 ml IV ASDIRECTED PRN PRN Reason: Hypoglycemia Dextrose/Water (Dextrose 50% In Water) 25 ml IV ASDIRECTED PRN PRN Reason: Hypoglycemia Diphenhydramine HCl (Benadryl) 50 mg IVPUSH ONETIME ONE Stop: 01/23/20 04:27 Last Admin: 01/23/20 04:37 Dose: 50 mg Documented by: Diphenhydramine HCl (Benadryl) 25 mg IVPUSH ONETIME ONE Stop: 01/24/20 09:02 Last Admin: 01/24/20 09:34 Dose: 25 mg Documented by: Diphenhydramine HCl (Benadryl) 25 mg IVPUSH ONETIME ONE Stop: 01/24/20 21:38 Last Admin: 01/24/20 21:47 Dose: 25 mg Documented by: Diphenhydramine HCl (Benadryl) 25 mg IVPUSH ONETIME ONE Stop: 01/25/20 07:45 Last Admin: 01/25/20 08:15 Dose: 25 mg Documented by: Famotidine (Pepcid) 20 mg PO ONETIME ONE Stop: 01/25/20 08:11 Last Admin: 01/25/20 08:23 Dose: 20 mg Documented by: Glucagon (Glucagen) 1 mg IM ASDIRECTED PRN PRN Reason: Hypoglycemia Glucagon (Glucagen) 1 mg IM ASDIRECTED PRN PRN Reason: Hypoglycemia Glucagon (Glucagen) 1 mg IM ASDIRECTED PRN PRN Reason: Hypoglycemia Haloperidol Lactate (Haldol) 3 mg IM ONETIME ONE Stop: 01/23/20 03:56 Last Admin: 01/23/20 04:03 Dose: 3 mg Documented by: Haloperidol Lactate (Haldol) 1 mg IM ONETIME ONE Stop: 01/26/20 09:01 Hydromorphone HCl (Dilaudid) 1 mg IVPUSH ONETIME ONE Stop: 01/23/20 04:27 Last Admin: 01/23/20 04:37 Dose: 1 mg Documented by: Lactated Ringer's (Ringers, Lactated) 1,000 mls @ 999 mls/hr IV .BOLUS ONE Stop: 01/23/20 04:39 Last Admin: 01/23/20 04:04 Dose: 999 mls/hr Documented by: Lactated Ringer's (Ringers, Lactated) 1,000 mls @ 999 mls/hr IV .BOLUS ONE Stop: 01/23/20 05:26 Last Admin: 01/23/20 04:39 Dose: 999 mls/hr Documented by: Pantoprazole Sodium 40 mg/ (Sodium Chloride) 20 mls @ 420 mls/hr IVPUSH ONETIME ONE Stop: 01/23/20 04:29 Last Admin: 01/23/20 04:36 Dose: 420 mls/hr Documented by: Lactated Ringer's (Ringers, Lactated) 1,000 mls @ 999 mls/hr IV .BOLUS ONE Stop: 01/23/20 06:55 Last Admin: 01/23/20 06:02 Dose: 999 mls/hr Documented by: Dextrose/Sodium Chloride (Dextrose 5%-Normal Saline) 1,000 mls @ 75 mls/hr IV ASDIRECTED [facility] Last Admin: 01/23/20 09:36 Dose: 75 mls/hr Documented by: Potassium Chloride 40 meq/ (Premix) 100 mls @ 25 mls/hr IV ONETIME ONE Stop: 01/23/20 14:21 Last Admin: 01/23/20 10:49 Dose: 25 mls/hr Documented by: Potassium Chloride/Sodium Chloride (Normal Saline With 40 Meq Kcl) 1,000 mls @ 150 mls/hr IV ASDIRECTED [facility] Stop: 01/23/20 21:24 Last Admin: 01/23/20 17:26 Dose: 150 mls/hr Documented by: Ceftriaxone Sodium 1 gm/ (Sodium Chloride) 50 mls @ 100 mls/hr IV Q24H [facility] Last Admin: 01/23/20 17:50 Dose: Not Given Documented by: Ceftriaxone Sodium/Dextrose 1 (gm/ Premix) 50 mls @ 100 mls/hr IV Q24H [facility] Meropenem/Sodium Chloride 1 gm (/ Premix) 50 mls @ 100 mls/hr IV Q8H [facility] Last Admin: 01/25/20 08:25 Dose: 100 mls/hr Documented by: Dextrose/Sodium Chloride (Dextrose 5%-Normal Saline) 1,000 mls @ 100 mls/hr IV ASDIRECTED [facility] Piperacillin Sod/Tazobactam (Sod 3.375 gm/ Sodium Chloride) 50 mls @ 100 mls/hr IV Q6H [facility] Last Admin: 01/23/20 22:24 Dose: 100 mls/hr Documented by: Dextrose/Sodium Chloride (Dextrose 5%-Normal Saline) 1,000 mls @ 100 mls/hr IV ASDIRECTED [facility] Last Admin: 01/24/20 13:24 Dose: 100 mls/hr Documented by: Lactated Ringer's (Ringers, Lactated) 1,000 mls @ 500 mls/hr IV .BOLUS ONE Stop: 01/24/20 01:30 Last Admin: 01/23/20 23:45 Dose: 500 mls/hr Documented by: Lactated Ringer's (Ringers, Lactated) 1,000 mls @ 1,000 mls/hr IV .BOLUS ONE Stop: 01/24/20 10:21 Last Admin: 01/24/20 09:38 Dose: 1,000 mls/hr Documented by: Lactated Ringer's (Ringers, Lactated) 1,000 mls @ 100 mls/hr IV ASDIRECTED [facility] Last Admin: 01/25/20 10:24 Dose: 100 mls/hr Documented by: Insulin Aspart (Novolog) 0 unit SUBCUT Q6H [facility]; Protocol Last Admin: 01/25/20 15:18 Dose: 6 unit Documented by: Insulin Glargine (Lantus Solostar) 20 units SUBCUT BEDTIME [facility] Insulin Glargine (Lantus Solostar) 10 units SUBCUT ONETIME ONE Stop: 01/23/20 21:01 Last Admin: 01/23/20 22:23 Dose: 10 units Documented by: Insulin Human Regular (Novolin R) 8 unit IVPUSH ONETIME ONE; Protocol Stop: 01/23/20 04:55 Last Admin: 01/23/20 05:14 Dose: 8 unit Documented by: Insulin Human Regular (Novolin R) 5 unit IVPUSH ONETIME ONE; Protocol Stop: 01/23/20 05:37 Last Admin: 01/23/20 05:44 Dose: 5 unit Documented by: Metoclopramide HCl (Reglan) 10 mg IVPUSH ONETIME ONE Stop: 01/23/20 04:27 Last Admin: 01/23/20 04:39 Dose: 10 mg Documented by: Morphine Sulfate (Morphine) 2 mg IVPUSH Q4H PRN PRN Reason: Pain Last Admin: 01/25/20 17:37 Dose: 2 mg Documented by: Ondansetron HCl (Zofran) 4 mg IVPUSH Q4H PRN PRN Reason: Nausea Last Admin: 01/25/20 03:55 Dose: 4 mg Documented by: - Exam Quality Assessment: No: Supplemental Oxygen General: Alert, Oriented HEENT: EOMI Neck: Supple Lungs: Clear to Auscultation, Normal Respiratory Effort Cardiovascular: Regular Rate, Regular Rhythm GI/Abdominal Exam: Other (diffuse abdominal tenderness w.o rebound. edge catheter in palce w.o issue and or hematuria ) Back Exam: Normal Inspection Extremities: Normal Inspection Neurological: No New Focal Deficit Psy/Mental Status: Alert Sepsis Event Note - Evaluation Sepsis Screening Result: No Definite Risk - Focused Exam Vital Signs: Vital Signs Temp Pulse Resp BP Pulse Ox 01/26/20 04:12 97.6 F 92 18 112/69 98 01/26/20 00:05 97.7 F 92 19 125/90 99 - Problem List & Annotations (1) Abdominal pain SNOMED Code(s): 53858053 Code(s): R10.9 - UNSPECIFIED ABDOMINAL PAIN Status: Acute Current Visit: Yes (2) Bacteremia SNOMED Code(s): 9551704 Code(s): R78.81 - BACTEREMIA Status: Acute Current Visit: Yes (3) Hyperglycemia SNOMED Code(s): 48244365 Code(s): R73.9 - HYPERGLYCEMIA, UNSPECIFIED Status: Acute Current Visit: Yes (4) Nausea & vomiting SNOMED Code(s): 13027561 Code(s): R11.2 - NAUSEA WITH VOMITING, UNSPECIFIED Status: Acute Current Visit: Yes Qualifiers: Vomiting type: unspecified Vomiting Intractability: non-intractable Qualified Code(s): R11.2 - Nausea with vomiting, unspecified (5) Diabetes type 1, uncontrolled SNOMED Code(s): 07863283, 823978145 Code(s): E10.65 - TYPE 1 DIABETES MELLITUS WITH HYPERGLYCEMIA Status: Chronic Priority: Medium Current Visit: Yes Qualifiers: Glycemic state: with hyperglycemia Qualified Code(s): E10.65 - Type 1 diabetes mellitus with hyperglycemia - Problem List Review Problem List Initiated/Reviewed/Updated: Yes - My Orders Last 24 Hours: My Active Orders 01/25/20 08:21 Metoclopramide [Reglan] 10 mg IVPUSH Q4H PRN 01/25/20 09:00 Famotidine [Pepcid] 40 mg IV BID Patient's Own Medication [Ptom] 0 each PO .ASNEEDED PRN 01/25/20 19:21 Morphine 2 mg IVPUSH Q6H PRN 01/25/20 19:30 Lactated Ringers [Ringers, Lactated] 1,000 ml IV ASDIRECTED 01/26/20 08:08 Occult Blood Diagnostic GI [OCCULT BLOOD DIAGNOSTIC] [OP] Routine 01/26/20 08:10 Communication Order [RC] CONTINUOUS 01/27/20 05:11 CBC WITH AUTO DIFF [HEME] DAILY COMPREHENSIVE METABOLIC PN,CMP [CHEM] AM - Plan Plan:: Assessment: 1. Acute on chronic abdominal pain w/ n/v in setting of Gastroparesis (uncontrolled Type I DM) 2. +E.coli bacteremia 3. Hypernatremia 4. type I DM 5. Hx of opioid abuse Plan 1. Bacteremia: E. Coli : continue Rocephin ; recheck Bcx Afebrile 2. Gastroparesis/abdominal pain : trial compazine alternating w. reglan. Recheck Ct abdomen this AM due to persistent abdominal pain/discomfort. Trialed 1 time dose of Haldol this AM w, minimal relief Changed timings of of anti-nausea meds to help w. increasing appetite ; encouraged more PO foods. Iv fluids switched dextrose+water; recheck CMP in AM ; mild hyponatremia; no AMS <Miguel Pollack - Last Filed: 01/26/20 23:16> - Patient Data Vitals - Most Recent: Last Vital Signs Temp 36.9 C 01/26/20 20:00 Pulse 77 01/26/20 20:00 Resp 18 01/26/20 20:00 BP 119/86 01/26/20 20:00 Pulse Ox 98 01/26/20 20:00 I&O - Last 24 Hours: Intake & Output 01/26/20 01/26/20 01/27/20 14:59 22:59 06:59 Intake Total 2243 Output Total 1000 Balance 1243 Lab Results Last 24 Hours: Laboratory Results - last 24 hr 01/25/20 01/25/20 01/26/20 Range/Units 19:10 23:58 04:55 WBC 10.39 (4.0-11.0) K/uL RBC 3.58 L (4.50-5.90) M/uL Hgb 9.3 L (13.0-17.0) g/dL Hct 29.8 L (38.0-50.0) % MCV 83.2 (80.0-98.0) fL MCH 26.0 L (27.0-32.0) pg MCHC 31.2 (31.0-37.0) g/dL RDW Std Deviation 46.1 (28.0-62.0) fl RDW Coeff of Erika 15 (11.0-15.0) % Plt Count 218 (150-400) K/uL MPV 9.90 (7.40-12.00) fL Neut % (Auto) 78.8 (48.0-80.0) % Lymph % (Auto) 17.6 (16.0-40.0) % [place] % (Auto) 3.4 (0.0-15.0) % Eos % (Auto) 0.1 (0.0-7.0) % Baso % (Auto) 0.1 (0.0-1.5) % Neut # (Auto) 8.2 H (1.4-5.7) K/uL Lymph # (Auto) 1.8 (0.6-2.4) K/uL [place] # (Auto) 0.4 (0.0-0.8) K/uL Eos # (Auto) 0.0 (0.0-0.7) K/uL Baso # (Auto) 0.0 (0.0-0.1) K/uL Nucleated RBC % 0.0 /100WBC Nucleated RBCs # 0 K/uL Sodium (136-148) mmol/L Potassium (3.5-5.1) mmol/L Chloride (98-107) mmol/L Carbon Dioxide (21.0-32.0) mmol/L BUN (7.0-18.0) mg/dL Creatinine (0.8-1.3) mg/dL Est Cr Clr Drug Dosing mL/min Estimated GFR (MDRD) ml/min Glucose (74-106) mg/dL POC Glucose 286 H 193 H (60-110) mg/dL Calcium (8.5-10.1) mg/dL Total Bilirubin (0.2-1.0) mg/dL AST (15-37) IU/L ALT (14-63) IU/L Alkaline Phosphatase (46-116) U/L Total Protein (6.4-8.2) g/dL Albumin (3.4-5.0) g/dL Globulin (2.6-4.0) g/dL Albumin/Globulin Ratio (0.9-1.6) Lipase (73-393) U/L 01/26/20 01/26/20 01/26/20 Range/Units 04:55 04:55 06:02 WBC (4.0-11.0) K/uL RBC (4.50-5.90) M/uL Hgb (13.0-17.0) g/dL Hct (38.0-50.0) % MCV (80.0-98.0) fL MCH (27.0-32.0) pg MCHC (31.0-37.0) g/dL RDW Std Deviation (28.0-62.0) fl RDW Coeff of Erika (11.0-15.0) % Plt Count (150-400) K/uL MPV (7.40-12.00) fL Neut % (Auto) (48.0-80.0) % Lymph % (Auto) (16.0-40.0) % [place] % (Auto) (0.0-15.0) % Eos % (Auto) (0.0-7.0) % Baso % (Auto) (0.0-1.5) % Neut # (Auto) (1.4-5.7) K/uL Lymph # (Auto) (0.6-2.4) K/uL [place] # (Auto) (0.0-0.8) K/uL Eos # (Auto) (0.0-0.7) K/uL Baso # (Auto) (0.0-0.1) K/uL Nucleated RBC % /100WBC Nucleated RBCs # K/uL Sodium 150 H (136-148) mmol/L Potassium 3.7 (3.5-5.1) mmol/L Chloride 114 H (98-107) mmol/L Carbon Dioxide 24.2 (21.0-32.0) mmol/L BUN 28 H (7.0-18.0) mg/dL Creatinine 1.1 (0.8-1.3) mg/dL Est Cr Clr Drug Dosing 76.37 mL/min Estimated GFR (MDRD) > 60.0 ml/min Glucose 206 H (74-106) mg/dL POC Glucose 170 H (60-110) mg/dL Calcium 9.2 (8.5-10.1) mg/dL Total Bilirubin 0.4 (0.2-1.0) mg/dL AST 10 L (15-37) IU/L ALT 15 (14-63) IU/L Alkaline Phosphatase 74 (46-116) U/L Total Protein 6.5 (6.4-8.2) g/dL Albumin 1.9 L (3.4-5.0) g/dL Globulin 4.6 H (2.6-4.0) g/dL Albumin/Globulin Ratio 0.4 L (0.9-1.6) Lipase 19 L (73-393) U/L 01/26/20 01/26/20 Range/Units 11:51 16:38 WBC (4.0-11.0) K/uL RBC (4.50-5.90) M/uL Hgb (13.0-17.0) g/dL Hct (38.0-50.0) % MCV (80.0-98.0) fL MCH (27.0-32.0) pg MCHC (31.0-37.0) g/dL RDW Std Deviation (28.0-62.0) fl RDW Coeff of Erika (11.0-15.0) % Plt Count (150-400) K/uL MPV (7.40-12.00) fL Neut % (Auto) (48.0-80.0) % Lymph % (Auto) (16.0-40.0) % [place] % (Auto) (0.0-15.0) % Eos % (Auto) (0.0-7.0) % Baso % (Auto) (0.0-1.5) % Neut # (Auto) (1.4-5.7) K/uL Lymph # (Auto) (0.6-2.4) K/uL [place] # (Auto) (0.0-0.8) K/uL Eos # (Auto) (0.0-0.7) K/uL Baso # (Auto) (0.0-0.1) K/uL Nucleated RBC % /100WBC Nucleated RBCs # K/uL Sodium (136-148) mmol/L Potassium (3.5-5.1) mmol/L Chloride (98-107) mmol/L Carbon Dioxide (21.0-32.0) mmol/L BUN (7.0-18.0) mg/dL Creatinine (0.8-1.3) mg/dL Est Cr Clr Drug Dosing mL/min Estimated GFR (MDRD) ml/min Glucose (74-106) mg/dL POC Glucose 179 H 204 H (60-110) mg/dL Calcium (8.5-10.1) mg/dL Total Bilirubin (0.2-1.0) mg/dL AST (15-37) IU/L ALT (14-63) IU/L Alkaline Phosphatase (46-116) U/L Total Protein (6.4-8.2) g/dL Albumin (3.4-5.0) g/dL Globulin (2.6-4.0) g/dL Albumin/Globulin Ratio (0.9-1.6) Lipase (73-393) U/L [facility] Results Last 24 Hours: Microbiology 01/26/20 15:10 Stool Occult Blood ([facility]) - Final Stool / Feces 01/24/20 00:25 Aerobic Blood Culture - Preliminary Blood - Venous - Lab Draw NO GROWTH AFTER 2 DAYS Anaerobic Blood Culture - Preliminary NO GROWTH AFTER 2 DAYS 01/24/20 00:15 Aerobic Blood Culture - Preliminary Blood - Venous NO GROWTH AFTER 2 DAYS Anaerobic Blood Culture - Preliminary NO GROWTH AFTER 2 DAYS Med Orders - Current: Current Medications Dextrose/Water (Dextrose 50% In Water) 50 ml IV ASDIRECTED PRN PRN Reason: Hypoglycemia Last Admin: 01/23/20 21:17 Dose: 50 ml Documented by: Famotidine (Pepcid) 40 mg IV BID [facility] Last Admin: 01/26/20 21:19 Dose: Not Given Documented by: Glucagon (Glucagen) 1 mg IM ASDIRECTED PRN PRN Reason: Hypoglycemia Ceftriaxone Sodium/Dextrose 1 (gm/ Premix) 50 mls @ 100 mls/hr IV Q24H [facility] Last Admin: 01/26/20 16:13 Dose: 100 mls/hr Documented by: Dextrose/Water (Dextrose 5% In Water) 1,000 mls @ 100 mls/hr IV Q10H [facility] Last Admin: 01/26/20 22:13 Dose: 100 mls/hr Documented by: Insulin Aspart (Novolog) 0 unit SUBCUT Q6H [facility]; Protocol Last Admin: 01/26/20 17:45 Dose: 4 units Documented by: Insulin Glargine (Lantus Solostar) 20 units SUBCUT BEDTIME [facility] Last Admin: 01/26/20 20:29 Dose: 20 units Documented by: Metoclopramide HCl (Reglan) 10 mg IVPUSH Q6H [facility] Last Admin: 01/26/20 22:08 Dose: Not Given Documented by: Morphine Sulfate (Morphine) 2 mg IVPUSH Q6H PRN PRN Reason: Pain Last Admin: 01/26/20 15:29 Dose: 2 mg Documented by: Suboxone 8/2 Sl (Tablets) 0 each PO .ASNEEDED PRN PRN Reason: OPIOID CRAVING Last Admin: 01/26/20 15:32 Dose: 0.25 each Documented by: Prochlorperazine Edisylate (Compazine) 5 mg IVPUSH Q6H [facility] Last Admin: 01/26/20 18:44 Dose: 5 mg Documented by: Sodium Chloride (Saline Flush) 2.5 ml FLUSH ASDIRECTED PRN PRN Reason: Keep Vein Open Last Admin: 01/23/20 04:07 Dose: 2.5 ml Documented by: Sodium Chloride (Saline Flush) 10 ml FLUSH ASDIRECTED PRN PRN Reason: Keep Vein Open Last Admin: 01/23/20 04:07 Dose: 10 ml Documented by: Discontinued Medications Bisacodyl (Dulcolax) 10 mg RECTAL ONETIME ONE Stop: 01/26/20 14:11 Last Admin: 01/26/20 16:16 Dose: 10 mg Documented by: Cetirizine HCl (Zyrtec) 10 mg PO DAILY [facility] Cetirizine HCl (Zyrtec) 10 mg PO ONETIME ONE Stop: 01/25/20 17:26 Last Admin: 01/25/20 17:58 Dose: Not Given Documented by: Cetirizine HCl (Zyrtec) 10 mg PO ONETIME ONE Stop: 01/25/20 21:46 Last Admin: 01/25/20 21:55 Dose: 10 mg Documented by: Dextrose/Water (Dextrose 50% In Water) 50 ml IV ASDIRECTED PRN PRN Reason: Hypoglycemia Dextrose/Water (Dextrose 50% In Water) 50 ml IV ASDIRECTED PRN PRN Reason: Hypoglycemia Dextrose/Water (Dextrose 50% In Water) 50 ml IV ASDIRECTED PRN PRN Reason: Hypoglycemia Dextrose/Water (Dextrose 50% In Water) 25 ml IV ASDIRECTED PRN PRN Reason: Hypoglycemia Diphenhydramine HCl (Benadryl) 50 mg IVPUSH ONETIME ONE Stop: 01/23/20 04:27 Last Admin: 01/23/20 04:37 Dose: 50 mg Documented by: Diphenhydramine HCl (Benadryl) 25 mg IVPUSH ONETIME ONE Stop: 01/24/20 09:02 Last Admin: 01/24/20 09:34 Dose: 25 mg Documented by: Diphenhydramine HCl (Benadryl) 25 mg IVPUSH ONETIME ONE Stop: 01/24/20 21:38 Last Admin: 01/24/20 21:47 Dose: 25 mg Documented by: Diphenhydramine HCl (Benadryl) 25 mg IVPUSH ONETIME ONE Stop: 01/25/20 07:45 Last Admin: 01/25/20 08:15 Dose: 25 mg Documented by: Famotidine (Pepcid) 20 mg PO ONETIME ONE Stop: 01/25/20 08:11 Last Admin: 01/25/20 08:23 Dose: 20 mg Documented by: Glucagon (Glucagen) 1 mg IM ASDIRECTED PRN PRN Reason: Hypoglycemia Glucagon (Glucagen) 1 mg IM ASDIRECTED PRN PRN Reason: Hypoglycemia Glucagon (Glucagen) 1 mg IM ASDIRECTED PRN PRN Reason: Hypoglycemia Haloperidol Lactate (Haldol) 3 mg IM ONETIME ONE Stop: 01/23/20 03:56 Last Admin: 01/23/20 04:03 Dose: 3 mg Documented by: Haloperidol Lactate (Haldol) 1 mg IM ONETIME ONE Stop: 01/26/20 09:01 Last Admin: 01/26/20 09:39 Dose: 1 mg Documented by: Hydromorphone HCl (Dilaudid) 1 mg IVPUSH ONETIME ONE Stop: 01/23/20 04:27 Last Admin: 01/23/20 04:37 Dose: 1 mg Documented by: Hydroxyzine HCl (Atarax) 25 mg PO ONETIME ONE Stop: 01/26/20 17:34 Last Admin: 01/26/20 17:45 Dose: 25 mg Documented by: Lactated Ringer's (Ringers, Lactated) 1,000 mls @ 999 mls/hr IV .BOLUS ONE Stop: 01/23/20 04:39 Last Admin: 01/23/20 04:04 Dose: 999 mls/hr Documented by: Lactated Ringer's (Ringers, Lactated) 1,000 mls @ 999 mls/hr IV .BOLUS ONE Stop: 01/23/20 05:26 Last Admin: 01/23/20 04:39 Dose: 999 mls/hr Documented by: Pantoprazole Sodium 40 mg/ (Sodium Chloride) 20 mls @ 420 mls/hr IVPUSH ONETIME ONE Stop: 01/23/20 04:29 Last Admin: 01/23/20 04:36 Dose: 420 mls/hr Documented by: Lactated Ringer's (Ringers, Lactated) 1,000 mls @ 999 mls/hr IV .BOLUS ONE Stop: 01/23/20 06:55 Last Admin: 01/23/20 06:02 Dose: 999 mls/hr Documented by: Dextrose/Sodium Chloride (Dextrose 5%-Normal Saline) 1,000 mls @ 75 mls/hr IV ASDIRECTED [facility] Last Admin: 01/23/20 09:36 Dose: 75 mls/hr Documented by: Potassium Chloride 40 meq/ (Premix) 100 mls @ 25 mls/hr IV ONETIME ONE Stop: 01/23/20 14:21 Last Admin: 01/23/20 10:49 Dose: 25 mls/hr Documented by: Potassium Chloride/Sodium Chloride (Normal Saline With 40 Meq Kcl) 1,000 mls @ 150 mls/hr IV ASDIRECTED [facility] Stop: 01/23/20 21:24 Last Admin: 01/23/20 17:26 Dose: 150 mls/hr Documented by: Ceftriaxone Sodium 1 gm/ (Sodium Chloride) 50 mls @ 100 mls/hr IV Q24H [facility] Last Admin: 01/23/20 17:50 Dose: Not Given Documented by: Ceftriaxone Sodium/Dextrose 1 (gm/ Premix) 50 mls @ 100 mls/hr IV Q24H [facility] Meropenem/Sodium Chloride 1 gm (/ Premix) 50 mls @ 100 mls/hr IV Q8H [facility] Last Admin: 01/25/20 08:25 Dose: 100 mls/hr Documented by: Dextrose/Sodium Chloride (Dextrose 5%-Normal Saline) 1,000 mls @ 100 mls/hr IV ASDIRECTED [facility] Piperacillin Sod/Tazobactam (Sod 3.375 gm/ Sodium Chloride) 50 mls @ 100 mls/hr IV Q6H [facility] Last Admin: 01/23/20 22:24 Dose: 100 mls/hr Documented by: Dextrose/Sodium Chloride (Dextrose 5%-Normal Saline) 1,000 mls @ 100 mls/hr IV ASDIRECTED [facility] Last Admin: 01/24/20 13:24 Dose: 100 mls/hr Documented by: Lactated Ringer's (Ringers, Lactated) 1,000 mls @ 500 mls/hr IV .BOLUS ONE Stop: 01/24/20 01:30 Last Admin: 01/23/20 23:45 Dose: 500 mls/hr Documented by: Lactated Ringer's (Ringers, Lactated) 1,000 mls @ 1,000 mls/hr IV .BOLUS ONE Stop: 01/24/20 10:21 Last Admin: 01/24/20 09:38 Dose: 1,000 mls/hr Documented by: Lactated Ringer's (Ringers, Lactated) 1,000 mls @ 100 mls/hr IV ASDIRECTED [facility] Last Admin: 01/25/20 10:24 Dose: 100 mls/hr Documented by: Lactated Ringer's (Ringers, Lactated) 1,000 mls @ 100 mls/hr IV ASDIRECTED [facility] Last Admin: 01/25/20 20:30 Dose: 100 mls/hr Documented by: Insulin Aspart (Novolog) 0 unit SUBCUT Q6H [facility]; Protocol Last Admin: 01/25/20 15:18 Dose: 6 unit Documented by: Insulin Glargine (Lantus Solostar) 20 units SUBCUT BEDTIME AUGUSTINE Insulin Glargine (Lantus Solostar) 10 units SUBCUT ONETIME ONE Stop: 01/23/20 21:01 Last Admin: 01/23/20 22:23 Dose: 10 units Documented by: Insulin Human Regular (Novolin R) 8 unit IVPUSH ONETIME ONE; Protocol Stop: 01/23/20 04:55 Last Admin: 01/23/20 05:14 Dose: 8 unit Documented by: Insulin Human Regular (Novolin R) 5 unit IVPUSH ONETIME ONE; Protocol Stop: 01/23/20 05:37 Last Admin: 01/23/20 05:44 Dose: 5 unit Documented by: Metoclopramide HCl (Reglan) 10 mg IVPUSH ONETIME ONE Stop: 01/23/20 04:27 Last Admin: 01/23/20 04:39 Dose: 10 mg Documented by: Metoclopramide HCl (Reglan) 10 mg IVPUSH Q4H PRN PRN Reason: Nausea/Vomiting Last Admin: 01/25/20 12:30 Dose: 10 mg Documented by: Morphine Sulfate (Morphine) 2 mg IVPUSH Q4H PRN PRN Reason: Pain Last Admin: 01/25/20 17:37 Dose: 2 mg Documented by: Ondansetron HCl (Zofran) 4 mg IVPUSH Q4H PRN PRN Reason: Nausea Last Admin: 01/25/20 03:55 Dose: 4 mg Documented by: Sepsis Event Note - Focused Exam Vital Signs: Vital Signs Temp Pulse Resp BP Pulse Ox 01/26/20 20:00 36.9 C 77 18 119/86 98 01/26/20 16:00 37.1 C 106 H 16 129/87 97 01/26/20 12:00 37.4 C 93 16 130/93 H 99 - Problem List & Annotations (1) Bacteremia SNOMED Code(s): 7024210 Code(s): R78.81 - BACTEREMIA Status: Acute Current Visit: Yes (2) Abdominal pain SNOMED Code(s): 22151265 Code(s): R10.9 - UNSPECIFIED ABDOMINAL PAIN Status: Acute Current Visit: Yes (3) Itching SNOMED Code(s): 862569220 Code(s): L29.9 - PRURITUS, UNSPECIFIED Status: Acute Current Visit: Yes (4) Abdominal pain SNOMED Code(s): 33739970 Code(s): R10.9 - UNSPECIFIED ABDOMINAL PAIN Status: Chronic Priority: High Current Visit: Yes Qualifiers: Abdominal location: upper abdomen, unspecified Qualified Code(s): R10.10 - Upper abdominal pain, unspecified (5) Diabetes type 1, uncontrolled SNOMED Code(s): 17128274, 962500486 Code(s): E10.65 - TYPE 1 DIABETES MELLITUS WITH HYPERGLYCEMIA Status: Chronic Priority: Medium Current Visit: Yes Qualifiers: Glycemic state: with hyperglycemia Qualified Code(s): E10.65 - Type 1 diabetes mellitus with hyperglycemia (6) Chronic abdominal pain SNOMED Code(s): 784246115 Code(s): R10.9 - UNSPECIFIED ABDOMINAL PAIN; G89.29 - OTHER CHRONIC PAIN Status: Acute Current Visit: No (7) Diabetic gastroparesis SNOMED Code(s): 559796627 Code(s): E11.43 - TYPE 2 DIABETES W DIABETIC AUTONOMIC (POLY)NEUROPATHY; K31.84 - GASTROPARESIS Status: Chronic Priority: Medium Current Visit: No (8) History of neurogenic bladder SNOMED Code(s): 210127192 Code(s): Z87.448 - PERSONAL HISTORY OF OTHER DISEASES OF URINARY SYSTEM Status: Chronic Current Visit: No - Plan Plan:: I have seen and evaluated the patient and agree with the residents note unless specified in my note
[2020-01-26] MEDS: Dextrose 5% in Water 1,000 ML IV SCH ×3 (10:38→22:13)
[2020-01-26] MEDS: Metoclopramide 10 MG/2 ML SDV IVPUSH SCH ×4 (10:40→22:08)
--- NOTE | 2020-01-26 12:37 | CT ---
INDICATION: Continued abdominal pain. Hydronephrosis COMPARISON: January 23, 2020 TECHNIQUE: CT examination of the abdomen and pelvis was performed without intravenous contrast. Thin section axial images were obtained from the lung bases through the pubic symphysis. Oral contrast was not administered. TECHNICAL NOTE: THE STUDY SHOWS SIGNIFICANT TECHNICAL LIMITATIONS DUE TO LACK OF ORAL AND INTRAVENOUS CONTRAST AND DUE TO A PAUCITY OF FAT PLANES. Please note that all CT scans at this facility use dose modulation, iterative reconstruction, and/or weight-based dosing when appropriate to reduce radiation dose to as low as reasonably achievable. FINDINGS: LUNG BASES: The lung bases as visualized appear normal.The heart size is normal at the lung bases. LIVER/BILIARY SYSTEM:No definite hepatic abnormality. The gallbladder is distended containing sludge. Sonography should be considered for further evaluation.No biliary ductal dilatation ADRENALS: Normal non-contrast appearance KIDNEYS, URETERS and BLADDER:The kidneys are normal in size. The left renal enlargement and perinephric stranding noted previous has resolved. Hydronephrosis and hydroureter has near completely resolved. A Clements catheter decompresses the bladder. SPLEEN:Normal non-contrast appearance. PANCREAS: Very poorly seen RETROPERITONEUM and MESENTERY: There is no mass, adenopathy or aortic aneurysm. GASTROINTESTINAL SYSTEM: There is no evidence of diverticulitis, colitis, mechanical obstruction, or appendicitis. The small bowel as visualized appears normal.Significant diffuse fecal retention PELVIS: No visible adenopathy or mass. OSSEOUS STRUCTURES and ABDOMINAL WALL: There is an age-appropriate appearance of the osseous structures.No significant abdominal wall defect. OTHER: There is body wall edema which is essentially new. There is also ascites which is essentially new except for the perinephric fluid those present previously. IMPRESSION: 1. Technical limitations as discussed above. 2. The bladder has been decompressed by Clements catheter. The hydronephrosis and hydroureter has near completely resolved. The left renal enlargement and perinephric stranding has resolved. 3. New findings include body wall edema and ascites. The exact etiology of these 2 findings is uncertain. There is no free air. The lung bases and pleural spaces appear normal. Please note that all CT scans at this facility use dose modulation, iterative reconstruction, and/or weight-based dosing when appropriate to reduce radiation dose to as low as reasonably achievable. Dictated by Blake Garcia MD @ Jan 26 2020 12:27PM Signed by Dr. Blake Garcia @ Jan 26 2020 12:35PM
[2020-01-26] MEDS: Prochlorperazine 10 MG/2 ML SDV IVPUSH SCH ×2 (13:14→18:44)
[2020-01-26] MEDS ORDERED: Bisacodyl 10 MG Supp RECTAL ONE (14:10)
[2020-01-26] MEDS: cefTRIAXone 1 GM in Premix Bag 1 BAG IV SCH (16:13)
--- NOTE | 2020-01-26 16:49 | US ---
INDICATION: Abdominal pain. TECHNIQUE: Ultrasound abdomen complete. Sonographic images of the entire abdomen were obtained using whitmore-scale and color Doppler. COMPARISON: CT abdomen pelvis January 26, 2020. Ultrasound abdomen January 23, 2020. FINDINGS: Liver: Normal in size and echotexture. No masses. No intrahepatic biliary dilatation. Gallbladder: Moderate amount of sludge is present no stones. Normal wall thickness. No pericholecystic fluid. Common bile duct: 3 mm. Pancreas: Normal in size and appearance. Spleen: Normal in size and appearance. Kidneys: Both kidneys are normal in size. Normal echotexture and cortex. Minimal bilateral hydronephrosis persists. Vasculature: Proximal abdominal aorta and IVC are normal in caliber. IMPRESSION: 1. Moderate amount of gallbladder sludge with moderate gallbladder dilatation. No other signs of acute cholecystitis. 2. Minimal bilateral hydronephrosis has improved. 3. Remainder of the exam is unremarkable. Dictated by Adrian Fajardo MD @ Jan 26 2020 4:37PM Signed by Dr. Adrian Fajardo @ Jan 26 2020 4:47PM
[2020-01-26] MEDS ORDERED: hydrOXYzine HCl 25 MG Tab PO ONE (17:33)
[2020-01-26] MEDS: Insulin Glargine,Human Rec. Analog 100 Units/ML 3 ML Pen SUBCUT SCH (20:29)
[2020-01-27] MEDS: Prochlorperazine 10 MG/2 ML SDV IVPUSH SCH ×4 (00:03→19:25)
[2020-01-27] MEDS: Insulin Aspart 100 Units/ML 3 ML Pen SUBCUT SCH ×5 (00:03→23:55)
[2020-01-27] MEDS ORDERED: Lactated Ringers 1,000 ML IV SCH (01:45)
[2020-01-27] MEDS: Metoclopramide 10 MG/2 ML SDV IVPUSH SCH ×4 (03:38→22:47)
[2020-01-27 05:58] LABS: BLOOD UREA NITROGEN,BUN 22 mg/dL (7.0-18.0); CARBON DIOXIDE,CO2 29.5 mmol/L (21.0-32.0); CHLORIDE,CL 111 mmol/L (98-107); GLUCOSE RANDOM 128 mg/dL (74-106); POTASSIUM,K 3.1 mmol/L (3.5-5.1); SODIUM,NA 148 mmol/L (136-148)
[2020-01-27] MEDS ORDERED: Dextrose 5% in Water 1,000 ML IV SCH (07:45)
[2020-01-27] MEDS: Famotidine 20 MG/2 ML SDV IV SCH ×2 (08:06→20:40)
[2020-01-27] MEDS: Potassium Chloride 20 MEQ Tab.ER PO ONE ×2 (08:07→12:02)
[2020-01-27] MEDS ORDERED: Morphine 2 MG/ML SYRINGE IVPUSH PRN (09:04)
[2020-01-27] MEDS: Bisacodyl 10 MG Supp RECTAL SCH (11:54)
[2020-01-27] MEDS ORDERED: HYDROmorphone 2 MG/ML Syringe IVPUSH SCH (12:00)
[2020-01-27] MEDS ORDERED: Dextrose 5%-0.9% NaCl with KCl 1,000 ML IV SCH (12:00)
--- NOTE | 2020-01-27 12:47 | PCM.PN ---
<Nereida Dc - Last Filed: 01/27/20 12:47> - General Info Date of Service: 01/27/20 Subjective Update: Continued discomfort w. N/V. Mentions bile emesis w.o overt blood. Mentiosn having some BM last night which were small. Denies return of appetite . - Review of Systems General: Reports: Fatigue HEENT: Reports: No Symptoms Pulmonary: Reports: No Symptoms Cardiovascular: Reports: No Symptoms Gastrointestinal: Reports: Abdominal Pain, Decreased Appetite, Diarrhea, Nausea, Vomiting. Denies: Constipation Genitourinary: Reports: No Symptoms Musculoskeletal: Reports: No Symptoms Skin: Reports: Pruritis. Denies: Rash Neurological: Reports: No Symptoms Psychiatric: Reports: Depression - Patient Data Vitals - Most Recent: Last Vital Signs Temp 98.1 F 01/27/20 11:58 Pulse 84 01/27/20 11:58 Resp 20 01/27/20 11:58 BP 132/94 H 01/27/20 11:58 Pulse Ox 99 01/27/20 11:58 Weight - Most Recent: 51.256 kg I&O - Last 24 Hours: Intake & Output 01/26/20 01/27/20 01/27/20 22:59 06:59 14:59 Intake Total 2243 1125 Output Total 1000 450 Balance 1243 675 Lab Results Last 24 Hours: Laboratory Results - last 24 hr 01/26/20 01/26/20 01/27/20 Range/Units 04:55 16:38 00:02 WBC (4.0-11.0) K/uL RBC (4.50-5.90) M/uL Hgb (13.0-17.0) g/dL Hct (38.0-50.0) % MCV (80.0-98.0) fL MCH (27.0-32.0) pg MCHC (31.0-37.0) g/dL RDW Std Deviation (28.0-62.0) fl RDW Coeff of Erika (11.0-15.0) % Plt Count (150-400) K/uL MPV (7.40-12.00) fL Neut % (Auto) (48.0-80.0) % Lymph % (Auto) (16.0-40.0) % Nash % (Auto) (0.0-15.0) % Eos % (Auto) (0.0-7.0) % Baso % (Auto) (0.0-1.5) % Neut # (Auto) (1.4-5.7) K/uL Lymph # (Auto) (0.6-2.4) K/uL Nash # (Auto) (0.0-0.8) K/uL Eos # (Auto) (0.0-0.7) K/uL Baso # (Auto) (0.0-0.1) K/uL Nucleated RBC % /100WBC Nucleated RBCs # K/uL Sodium (136-148) mmol/L Potassium (3.5-5.1) mmol/L Chloride (98-107) mmol/L Carbon Dioxide (21.0-32.0) mmol/L BUN (7.0-18.0) mg/dL Creatinine (0.8-1.3) mg/dL Est Cr Clr Drug Dosing mL/min Estimated GFR (MDRD) ml/min Glucose (74-106) mg/dL POC Glucose 204 H 212 H (60-110) mg/dL Calcium (8.5-10.1) mg/dL Total Bilirubin (0.2-1.0) mg/dL AST (15-37) IU/L ALT (14-63) IU/L Alkaline Phosphatase (46-116) U/L Total Protein (6.4-8.2) g/dL Albumin (3.4-5.0) g/dL Globulin (2.6-4.0) g/dL Albumin/Globulin Ratio (0.9-1.6) Lipase 19 L (73-393) U/L 01/27/20 01/27/20 01/27/20 Range/Units 05:08 05:08 05:59 WBC 5.57 (4.0-11.0) K/uL RBC 3.77 L (4.50-5.90) M/uL Hgb 9.9 L (13.0-17.0) g/dL Hct 31.4 L (38.0-50.0) % MCV 83.3 (80.0-98.0) fL MCH 26.3 L (27.0-32.0) pg MCHC 31.5 (31.0-37.0) g/dL RDW Std Deviation 43.5 (28.0-62.0) fl RDW Coeff of Erika 15 (11.0-15.0) % Plt Count 198 (150-400) K/uL MPV 9.50 (7.40-12.00) fL Neut % (Auto) 56.3 (48.0-80.0) % Lymph % (Auto) 34.8 (16.0-40.0) % Nash % (Auto) 7.0 (0.0-15.0) % Eos % (Auto) 1.4 (0.0-7.0) % Baso % (Auto) 0.5 (0.0-1.5) % Neut # (Auto) 3.1 (1.4-5.7) K/uL Lymph # (Auto) 1.9 (0.6-2.4) K/uL Nash # (Auto) 0.4 (0.0-0.8) K/uL Eos # (Auto) 0.1 (0.0-0.7) K/uL Baso # (Auto) 0.0 (0.0-0.1) K/uL Nucleated RBC % 0.0 /100WBC Nucleated RBCs # 0 K/uL Sodium 148 (136-148) mmol/L Potassium 3.1 L (3.5-5.1) mmol/L Chloride 111 H (98-107) mmol/L Carbon Dioxide 29.5 (21.0-32.0) mmol/L BUN 22 H (7.0-18.0) mg/dL Creatinine 0.8 (0.8-1.3) mg/dL Est Cr Clr Drug Dosing 105.00 mL/min Estimated GFR (MDRD) > 60.0 ml/min Glucose 128 H (74-106) mg/dL POC Glucose 89 (60-110) mg/dL Calcium 9.0 (8.5-10.1) mg/dL Total Bilirubin 0.2 (0.2-1.0) mg/dL AST 8 L (15-37) IU/L ALT 13 L (14-63) IU/L Alkaline Phosphatase 69 (46-116) U/L Total Protein 6.3 L (6.4-8.2) g/dL Albumin 1.9 L (3.4-5.0) g/dL Globulin 4.4 H (2.6-4.0) g/dL Albumin/Globulin Ratio 0.4 L (0.9-1.6) Lipase (73-393) U/L 01/27/20 Range/Units 11:15 WBC (4.0-11.0) K/uL RBC (4.50-5.90) M/uL Hgb (13.0-17.0) g/dL Hct (38.0-50.0) % MCV (80.0-98.0) fL MCH (27.0-32.0) pg MCHC (31.0-37.0) g/dL RDW Std Deviation (28.0-62.0) fl RDW Coeff of Erika (11.0-15.0) % Plt Count (150-400) K/uL MPV (7.40-12.00) fL Neut % (Auto) (48.0-80.0) % Lymph % (Auto) (16.0-40.0) % Nash % (Auto) (0.0-15.0) % Eos % (Auto) (0.0-7.0) % Baso % (Auto) (0.0-1.5) % Neut # (Auto) (1.4-5.7) K/uL Lymph # (Auto) (0.6-2.4) K/uL Nash # (Auto) (0.0-0.8) K/uL Eos # (Auto) (0.0-0.7) K/uL Baso # (Auto) (0.0-0.1) K/uL Nucleated RBC % /100WBC Nucleated RBCs # K/uL Sodium (136-148) mmol/L Potassium (3.5-5.1) mmol/L Chloride (98-107) mmol/L Carbon Dioxide (21.0-32.0) mmol/L BUN (7.0-18.0) mg/dL Creatinine (0.8-1.3) mg/dL Est Cr Clr Drug Dosing mL/min Estimated GFR (MDRD) ml/min Glucose (74-106) mg/dL POC Glucose 142 H (60-110) mg/dL Calcium (8.5-10.1) mg/dL Total Bilirubin (0.2-1.0) mg/dL AST (15-37) IU/L ALT (14-63) IU/L Alkaline Phosphatase (46-116) U/L Total Protein (6.4-8.2) g/dL Albumin (3.4-5.0) g/dL Globulin (2.6-4.0) g/dL Albumin/Globulin Ratio (0.9-1.6) Lipase (73-393) U/L Donaldo Results Last 24 Hours: Microbiology 01/24/20 00:25 Aerobic Blood Culture - Preliminary Blood - Venous - Lab Draw NO GROWTH AFTER 3 DAYS Anaerobic Blood Culture - Preliminary NO GROWTH AFTER 3 DAYS 01/24/20 00:15 Aerobic Blood Culture - Preliminary Blood - Venous NO GROWTH AFTER 3 DAYS Anaerobic Blood Culture - Preliminary NO GROWTH AFTER 3 DAYS 01/26/20 15:10 Stool Occult Blood (DONALDO) - Final Stool / Feces Med Orders - Current: Current Medications Bisacodyl (Dulcolax) 10 mg RECTAL DAILY [facility] Last Admin: 01/27/20 11:54 Dose: 10 mg Documented by: Dextrose/Water (Dextrose 50% In Water) 50 ml IV ASDIRECTED PRN PRN Reason: Hypoglycemia Last Admin: 01/23/20 21:17 Dose: 50 ml Documented by: Famotidine (Pepcid) 40 mg IV BID [facility] Last Admin: 01/27/20 08:06 Dose: 40 mg Documented by: Glucagon (Glucagen) 1 mg IM ASDIRECTED PRN PRN Reason: Hypoglycemia Hydromorphone HCl (Dilaudid) 0.5 mg IVPUSH Q6H PRN PRN Reason: Pain Ceftriaxone Sodium/Dextrose 1 (gm/ Premix) 50 mls @ 100 mls/hr IV Q24H [facility] Last Admin: 01/26/20 16:13 Dose: 100 mls/hr Documented by: Dextrose/Water (Dextrose 5% In Water) 1,000 mls @ 100 mls/hr IV ASDIRECTED [facility] Last Admin: 01/27/20 08:06 Dose: 100 mls/hr Documented by: Potassium Chloride/Dextrose/Sod Cl (D5 Ns With 20 Meq Kcl) 1,000 mls @ 100 mls/hr IV ASDIRECTED [facility] Last Admin: 01/27/20 12:10 Dose: 100 mls/hr Documented by: Insulin Aspart (Novolog) 0 unit SUBCUT Q6H [facility]; Protocol Last Admin: 01/27/20 11:21 Dose: Not Given Documented by: Insulin Glargine (Lantus Solostar) 20 units SUBCUT BEDTIME [facility] Last Admin: 01/26/20 20:29 Dose: 20 units Documented by: Metoclopramide HCl (Reglan) 10 mg IVPUSH Q6H [facility] Last Admin: 01/27/20 10:16 Dose: 10 mg Documented by: Suboxone / Sl (Tablets) 0 each PO .ASNEEDED PRN PRN Reason: OPIOID CRAVING Last Admin: 01/26/20 15:32 Dose: 0.25 each Documented by: Prochlorperazine Edisylate (Compazine) 5 mg IVPUSH Q6H [facility] Last Admin: 01/27/20 05:59 Dose: 5 mg Documented by: Sodium Chloride (Saline Flush) 2.5 ml FLUSH ASDIRECTED PRN PRN Reason: Keep Vein Open Last Admin: 01/23/20 04:07 Dose: 2.5 ml Documented by: Sodium Chloride (Saline Flush) 10 ml FLUSH ASDIRECTED PRN PRN Reason: Keep Vein Open Last Admin: 01/23/20 04:07 Dose: 10 ml Documented by: Discontinued Medications Bisacodyl (Dulcolax) 10 mg RECTAL ONETIME ONE Stop: 01/26/20 14:11 Last Admin: 01/26/20 16:16 Dose: 10 mg Documented by: Cetirizine HCl (Zyrtec) 10 mg PO DAILY [facility] Cetirizine HCl (Zyrtec) 10 mg PO ONETIME ONE Stop: 01/25/20 17:26 Last Admin: 01/25/20 17:58 Dose: Not Given Documented by: Cetirizine HCl (Zyrtec) 10 mg PO ONETIME ONE Stop: 01/25/20 21:46 Last Admin: 01/25/20 21:55 Dose: 10 mg Documented by: Dextrose/Water (Dextrose 50% In Water) 50 ml IV ASDIRECTED PRN PRN Reason: Hypoglycemia Dextrose/Water (Dextrose 50% In Water) 50 ml IV ASDIRECTED PRN PRN Reason: Hypoglycemia Dextrose/Water (Dextrose 50% In Water) 50 ml IV ASDIRECTED PRN PRN Reason: Hypoglycemia Dextrose/Water (Dextrose 50% In Water) 25 ml IV ASDIRECTED PRN PRN Reason: Hypoglycemia Diphenhydramine HCl (Benadryl) 50 mg IVPUSH ONETIME ONE Stop: 01/23/20 04:27 Last Admin: 01/23/20 04:37 Dose: 50 mg Documented by: Diphenhydramine HCl (Benadryl) 25 mg IVPUSH ONETIME ONE Stop: 01/24/20 09:02 Last Admin: 01/24/20 09:34 Dose: 25 mg Documented by: Diphenhydramine HCl (Benadryl) 25 mg IVPUSH ONETIME ONE Stop: 01/24/20 21:38 Last Admin: 01/24/20 21:47 Dose: 25 mg Documented by: Diphenhydramine HCl (Benadryl) 25 mg IVPUSH ONETIME ONE Stop: 01/25/20 07:45 Last Admin: 01/25/20 08:15 Dose: 25 mg Documented by: Famotidine (Pepcid) 20 mg PO ONETIME ONE Stop: 01/25/20 08:11 Last Admin: 01/25/20 08:23 Dose: 20 mg Documented by: Glucagon (Glucagen) 1 mg IM ASDIRECTED PRN PRN Reason: Hypoglycemia Glucagon (Glucagen) 1 mg IM ASDIRECTED PRN PRN Reason: Hypoglycemia Glucagon (Glucagen) 1 mg IM ASDIRECTED PRN PRN Reason: Hypoglycemia Haloperidol Lactate (Haldol) 3 mg IM ONETIME ONE Stop: 01/23/20 03:56 Last Admin: 01/23/20 04:03 Dose: 3 mg Documented by: Haloperidol Lactate (Haldol) 1 mg IM ONETIME ONE Stop: 01/26/20 09:01 Last Admin: 01/26/20 09:39 Dose: 1 mg Documented by: Hydromorphone HCl (Dilaudid) 1 mg IVPUSH ONETIME ONE Stop: 01/23/20 04:27 Last Admin: 01/23/20 04:37 Dose: 1 mg Documented by: Hydromorphone HCl (Dilaudid) 0.5 mg IVPUSH Q6H [facility] Hydroxyzine HCl (Atarax) 25 mg PO ONETIME ONE Stop: 01/26/20 17:34 Last Admin: 01/26/20 17:45 Dose: 25 mg Documented by: Lactated Ringer's (Ringers, Lactated) 1,000 mls @ 999 mls/hr IV .BOLUS ONE Stop: 01/23/20 04:39 Last Admin: 01/23/20 04:04 Dose: 999 mls/hr Documented by: Lactated Ringer's (Ringers, Lactated) 1,000 mls @ 999 mls/hr IV .BOLUS ONE Stop: 01/23/20 05:26 Last Admin: 01/23/20 04:39 Dose: 999 mls/hr Documented by: Pantoprazole Sodium 40 mg/ (Sodium Chloride) 20 mls @ 420 mls/hr IVPUSH ONETIME ONE Stop: 01/23/20 04:29 Last Admin: 01/23/20 04:36 Dose: 420 mls/hr Documented by: Lactated Ringer's (Ringers, Lactated) 1,000 mls @ 999 mls/hr IV .BOLUS ONE Stop: 01/23/20 06:55 Last Admin: 01/23/20 06:02 Dose: 999 mls/hr Documented by: Dextrose/Sodium Chloride (Dextrose 5%-Normal Saline) 1,000 mls @ 75 mls/hr IV ASDIRECTED [facility] Last Admin: 01/23/20 09:36 Dose: 75 mls/hr Documented by: Potassium Chloride 40 meq/ (Premix) 100 mls @ 25 mls/hr IV ONETIME ONE Stop: 01/23/20 14:21 Last Admin: 01/23/20 10:49 Dose: 25 mls/hr Documented by: Potassium Chloride/Sodium Chloride (Normal Saline With 40 Meq Kcl) 1,000 mls @ 150 mls/hr IV ASDIRECTED [facility] Stop: 01/23/20 21:24 Last Admin: 01/23/20 17:26 Dose: 150 mls/hr Documented by: Ceftriaxone Sodium 1 gm/ (Sodium Chloride) 50 mls @ 100 mls/hr IV Q24H [facility] Last Admin: 01/23/20 17:50 Dose: Not Given Documented by: Ceftriaxone Sodium/Dextrose 1 (gm/ Premix) 50 mls @ 100 mls/hr IV Q24H [facility] Meropenem/Sodium Chloride 1 gm (/ Premix) 50 mls @ 100 mls/hr IV Q8H [facility] Last Admin: 01/25/20 08:25 Dose: 100 mls/hr Documented by: Dextrose/Sodium Chloride (Dextrose 5%-Normal Saline) 1,000 mls @ 100 mls/hr IV ASDIRECTED [facility] Piperacillin Sod/Tazobactam (Sod 3.375 gm/ Sodium Chloride) 50 mls @ 100 mls/hr IV Q6H [facility] Last Admin: 01/23/20 22:24 Dose: 100 mls/hr Documented by: Dextrose/Sodium Chloride (Dextrose 5%-Normal Saline) 1,000 mls @ 100 mls/hr IV ASDIRECTED [facility] Last Admin: 01/24/20 13:24 Dose: 100 mls/hr Documented by: Lactated Ringer's (Ringers, Lactated) 1,000 mls @ 500 mls/hr IV .BOLUS ONE Stop: 01/24/20 01:30 Last Admin: 01/23/20 23:45 Dose: 500 mls/hr Documented by: Lactated Ringer's (Ringers, Lactated) 1,000 mls @ 1,000 mls/hr IV .BOLUS ONE Stop: 01/24/20 10:21 Last Admin: 01/24/20 09:38 Dose: 1,000 mls/hr Documented by: Lactated Ringer's (Ringers, Lactated) 1,000 mls @ 100 mls/hr IV ASDIRECTED [facility] Last Admin: 01/25/20 10:24 Dose: 100 mls/hr Documented by: Lactated Ringer's (Ringers, Lactated) 1,000 mls @ 100 mls/hr IV ASDIRECTED [facility] Last Admin: 01/25/20 20:30 Dose: 100 mls/hr Documented by: Dextrose/Water (Dextrose 5% In Water) 1,000 mls @ 100 mls/hr IV Q10H [facility] Last Admin: 01/26/20 22:13 Dose: 100 mls/hr Documented by: Lactated Ringer's (Ringers, Lactated) 1,000 mls @ 125 mls/hr IV ASDIRECTED [facility] Last Admin: 01/27/20 03:43 Dose: 125 mls/hr Documented by: Insulin Aspart (Novolog) 0 unit SUBCUT Q6H [facility]; Protocol Last Admin: 01/25/20 15:18 Dose: 6 unit Documented by: Insulin Glargine (Lantus Solostar) 20 units SUBCUT BEDTIME [facility] Insulin Glargine (Lantus Solostar) 10 units SUBCUT ONETIME ONE Stop: 01/23/20 21:01 Last Admin: 01/23/20 22:23 Dose: 10 units Documented by: Insulin Human Regular (Novolin R) 8 unit IVPUSH ONETIME ONE; Protocol Stop: 01/23/20 04:55 Last Admin: 01/23/20 05:14 Dose: 8 unit Documented by: Insulin Human Regular (Novolin R) 5 unit IVPUSH ONETIME ONE; Protocol Stop: 01/23/20 05:37 Last Admin: 01/23/20 05:44 Dose: 5 unit Documented by: Metoclopramide HCl (Reglan) 10 mg IVPUSH ONETIME ONE Stop: 01/23/20 04:27 Last Admin: 01/23/20 04:39 Dose: 10 mg Documented by: Metoclopramide HCl (Reglan) 10 mg IVPUSH Q4H PRN PRN Reason: Nausea/Vomiting Last Admin: 01/25/20 12:30 Dose: 10 mg Documented by: Morphine Sulfate (Morphine) 2 mg IVPUSH Q4H PRN PRN Reason: Pain Last Admin: 01/25/20 17:37 Dose: 2 mg Documented by: Morphine Sulfate (Morphine) 2 mg IVPUSH Q6H PRN PRN Reason: Pain Last Admin: 01/26/20 15:29 Dose: 2 mg Documented by: Morphine Sulfate (Morphine) 1 mg IVPUSH Q6H PRN PRN Reason: Pain Ondansetron HCl (Zofran) 4 mg IVPUSH Q4H PRN PRN Reason: Nausea Last Admin: 01/25/20 03:55 Dose: 4 mg Documented by: Potassium Chloride (Klor-Con M20) 40 meq PO ONETIME ONE Stop: 01/27/20 07:43 Last Admin: 01/27/20 12:02 Dose: Not Given Documented by: - Exam Quality Assessment: No: Supplemental Oxygen General: Alert, Oriented, Mild Distress HEENT: EOMI Neck: Supple Lungs: Clear to Auscultation, Normal Respiratory Effort Cardiovascular: Regular Rhythm GI/Abdominal Exam: Other (diffuse abdominal tendenress w. minimal palpation ; no rebound tenderness ) (Male) Exam: No: Suprapubic Fullness Skin: Warm Wound/Incisions: Healing Well Neurological: No New Focal Deficit Psy/Mental Status: Alert, Depressed Sepsis Event Note - Evaluation Sepsis Screening Result: No Definite Risk - Focused Exam Vital Signs: Vital Signs Temp Pulse Resp BP Pulse Ox 01/27/20 11:58 98.1 F 84 20 132/94 H 99 01/27/20 07:51 96.8 F L 73 22 H 127/80 94 L 01/27/20 03:46 98.8 F 73 18 118/87 97 - Problem List & Annotations (1) Abdominal pain SNOMED Code(s): 00929063 Code(s): R10.9 - UNSPECIFIED ABDOMINAL PAIN Status: Acute Current Visit: Yes (2) Bacteremia SNOMED Code(s): 4679013 Code(s): R78.81 - BACTEREMIA Status: Acute Current Visit: Yes (3) Hyperglycemia SNOMED Code(s): 39441496 Code(s): R73.9 - HYPERGLYCEMIA, UNSPECIFIED Status: Acute Current Visit: Yes (4) Nausea & vomiting SNOMED Code(s): 57835317 Code(s): R11.2 - NAUSEA WITH VOMITING, UNSPECIFIED Status: Acute Current Visit: Yes Qualifiers: Vomiting type: unspecified Vomiting Intractability: non-intractable Qualified Code(s): R11.2 - Nausea with vomiting, unspecified (5) Diabetes type 1, uncontrolled SNOMED Code(s): 99808863, 898269726 Code(s): E10.65 - TYPE 1 DIABETES MELLITUS WITH HYPERGLYCEMIA Status: Chronic Priority: Medium Current Visit: Yes Qualifiers: Glycemic state: with hyperglycemia Qualified Code(s): E10.65 - Type 1 diabetes mellitus with hyperglycemia - Problem List Review Problem List Initiated/Reviewed/Updated: Yes - My Orders Last 24 Hours: My Active Orders 01/27/20 07:45 Dextrose 5% in Water 1,000 ml IV ASDIRECTED 01/27/20 12:00 Dextrose 5%-0.9% NaCl with KCl [D5 NS with 20 mEq KCl] 1,000 ml IV ASDIRECTED 01/27/20 12:08 HYDROmorphone [Dilaudid] 0.5 mg IVPUSH Q6H PRN - Plan Plan:: Assessment: 1. Acute on chronic abdominal pain w/ n/v in setting of Gastroparesis (uncontrolled Type I DM) 2. +E.coli bacteremia 3. Hypernatremia:resolved 4. type I DM 5. Hx of opioid abuse Plan 1. Bacteremia: E. Coli : continue Rocephin ; recheck Bcx Afebrile 2. Gastroparesis/abdominal pain : trial compazine alternating w. reglan scheduled . Repeat US unremarkable w. moderate resolution of bladder distension and hydronephrosis Iv fluids switched dextrose+water; replete w. potassium IV 9refused PO due to N/V) \ Switch from Morphine to Dilaudid for pain control and possible reduction in pruritus Remove edge catheter to encourage more ambulation; if retaining may need to replace edge w. close Urology follow up. I have seen and evaluated the patient and agree with the residents note unless specified in my note <Miguel Pollack - Last Filed: 01/28/20 18:02> - Patient Data Vitals - Most Recent: Last Vital Signs Temp 37.2 C 01/28/20 16:28 Pulse 92 01/28/20 16:28 Resp 18 01/28/20 16:28 BP 142/93 H 01/28/20 16:28 Pulse Ox 97 01/28/20 16:28 I&O - Last 24 Hours: Intake & Output 01/28/20 01/28/20 01/28/20 06:59 14:59 22:59 Intake Total 250 300 Output Total 460 1500 Balance -210 -1200 Lab Results Last 24 Hours: Laboratory Results - last 24 hr 01/27/20 01/28/20 01/28/20 Range/Units 23:54 05:12 05:12 WBC 5.01 (4.0-11.0) K/uL RBC 3.70 L (4.50-5.90) M/uL Hgb 9.8 L (13.0-17.0) g/dL Hct 30.4 L (38.0-50.0) % MCV 82.2 (80.0-98.0) fL MCH 26.5 L (27.0-32.0) pg MCHC 32.2 (31.0-37.0) g/dL RDW Std Deviation 42.8 (28.0-62.0) fl RDW Coeff of Erika 14 (11.0-15.0) % Plt Count 196 (150-400) K/uL MPV 9.60 (7.40-12.00) fL Neut % (Auto) 45.1 L (48.0-80.0) % Lymph % (Auto) 47.7 H (16.0-40.0) % Nash % (Auto) 6.4 (0.0-15.0) % Eos % (Auto) 0.6 (0.0-7.0) % Baso % (Auto) 0.2 (0.0-1.5) % Neut # (Auto) 2.3 (1.4-5.7) K/uL Lymph # (Auto) 2.4 (0.6-2.4) K/uL Nash # (Auto) 0.3 (0.0-0.8) K/uL Eos # (Auto) 0.0 (0.0-0.7) K/uL Baso # (Auto) 0.0 (0.0-0.1) K/uL Nucleated RBC % 0.0 /100WBC Nucleated RBCs # 0 K/uL Sodium 148 (136-148) mmol/L Potassium 3.0 L (3.5-5.1) mmol/L Chloride 112 H (98-107) mmol/L Carbon Dioxide 30.0 (21.0-32.0) mmol/L BUN 14 (7.0-18.0) mg/dL Creatinine 0.8 (0.8-1.3) mg/dL Est Cr Clr Drug Dosing 105.00 mL/min Estimated GFR (MDRD) > 60.0 ml/min Glucose 213 H (74-106) mg/dL POC Glucose 233 H (60-110) mg/dL Calcium 8.3 L (8.5-10.1) mg/dL Magnesium (1.8-2.4) mg/dL Total Bilirubin 0.2 (0.2-1.0) mg/dL AST 8 L (15-37) IU/L ALT 13 L (14-63) IU/L Alkaline Phosphatase 63 (46-116) U/L Total Protein 6.1 L (6.4-8.2) g/dL Albumin 1.8 L (3.4-5.0) g/dL Globulin 4.3 H (2.6-4.0) g/dL Albumin/Globulin Ratio 0.4 L (0.9-1.6) 12/18/20 12/18/20 12/18/20 Range/Units 05:12 07:27 12:13 WBC (4.0-11.0) K/uL RBC (4.50-5.90) M/uL Hgb (13.0-17.0) g/dL Hct (38.0-50.0) % MCV (80.0-98.0) fL MCH (27.0-32.0) pg MCHC (31.0-37.0) g/dL RDW Std Deviation (28.0-62.0) fl RDW Coeff of Erika (11.0-15.0) % Plt Count (150-400) K/uL MPV (7.40-12.00) fL Neut % (Auto) (48.0-80.0) % Lymph % (Auto) (16.0-40.0) % Nash % (Auto) (0.0-15.0) % Eos % (Auto) (0.0-7.0) % Baso % (Auto) (0.0-1.5) % Neut # (Auto) (1.4-5.7) K/uL Lymph # (Auto) (0.6-2.4) K/uL Nash # (Auto) (0.0-0.8) K/uL Eos # (Auto) (0.0-0.7) K/uL Baso # (Auto) (0.0-0.1) K/uL Nucleated RBC % /100WBC Nucleated RBCs # K/uL Sodium (136-148) mmol/L Potassium (3.5-5.1) mmol/L Chloride (98-107) mmol/L Carbon Dioxide (21.0-32.0) mmol/L BUN (7.0-18.0) mg/dL Creatinine (0.8-1.3) mg/dL Est Cr Clr Drug Dosing mL/min Estimated GFR (MDRD) ml/min Glucose (74-106) mg/dL POC Glucose 181 H 173 H (60-110) mg/dL Calcium (8.5-10.1) mg/dL Magnesium 1.6 L (1.8-2.4) mg/dL Total Bilirubin (0.2-1.0) mg/dL AST (15-37) IU/L ALT (14-63) IU/L Alkaline Phosphatase (46-116) U/L Total Protein (6.4-8.2) g/dL Albumin (3.4-5.0) g/dL Globulin (2.6-4.0) g/dL Albumin/Globulin Ratio (0.9-1.6) 12/18/20 Range/Units 17:55 WBC (4.0-11.0) K/uL RBC (4.50-5.90) M/uL Hgb (13.0-17.0) g/dL Hct (38.0-50.0) % MCV (80.0-98.0) fL MCH (27.0-32.0) pg MCHC (31.0-37.0) g/dL RDW Std Deviation (28.0-62.0) fl RDW Coeff of Erika (11.0-15.0) % Plt Count (150-400) K/uL MPV (7.40-12.00) fL Neut % (Auto) (48.0-80.0) % Lymph % (Auto) (16.0-40.0) % Nash % (Auto) (0.0-15.0) % Eos % (Auto) (0.0-7.0) % Baso % (Auto) (0.0-1.5) % Neut # (Auto) (1.4-5.7) K/uL Lymph # (Auto) (0.6-2.4) K/uL Nash # (Auto) (0.0-0.8) K/uL Eos # (Auto) (0.0-0.7) K/uL Baso # (Auto) (0.0-0.1) K/uL Nucleated RBC % /100WBC Nucleated RBCs # K/uL Sodium (136-148) mmol/L Potassium (3.5-5.1) mmol/L Chloride (98-107) mmol/L Carbon Dioxide (21.0-32.0) mmol/L BUN (7.0-18.0) mg/dL Creatinine (0.8-1.3) mg/dL Est Cr Clr Drug Dosing mL/min Estimated GFR (MDRD) ml/min Glucose (74-106) mg/dL POC Glucose 168 H (60-110) mg/dL Calcium (8.5-10.1) mg/dL Magnesium (1.8-2.4) mg/dL Total Bilirubin (0.2-1.0) mg/dL AST (15-37) IU/L ALT (14-63) IU/L Alkaline Phosphatase (46-116) U/L Total Protein (6.4-8.2) g/dL Albumin (3.4-5.0) g/dL Globulin (2.6-4.0) g/dL Albumin/Globulin Ratio (0.9-1.6) [facility] Results Last 24 Hours: Microbiology 01/24/20 00:25 Aerobic Blood Culture - Preliminary Blood - Venous - Lab Draw NO GROWTH AFTER 4 DAYS Anaerobic Blood Culture - Preliminary NO GROWTH AFTER 4 DAYS 01/24/20 00:15 Aerobic Blood Culture - Preliminary Blood - Venous NO GROWTH AFTER 4 DAYS Anaerobic Blood Culture - Preliminary NO GROWTH AFTER 4 DAYS Med Orders - Current: Current Medications Bisacodyl (Dulcolax) 10 mg RECTAL DAILY [facility] Last Admin: 01/28/20 09:40 Dose: 10 mg Documented by: Dextrose/Water (Dextrose 50% In Water) 50 ml IV ASDIRECTED PRN PRN Reason: Hypoglycemia Last Admin: 01/23/20 21:17 Dose: 50 ml Documented by: Famotidine (Pepcid) 40 mg IV BID [facility] Last Admin: 01/28/20 09:40 Dose: 40 mg Documented by: Glucagon (Glucagen) 1 mg IM ASDIRECTED PRN PRN Reason: Hypoglycemia Hydromorphone HCl (Dilaudid) 0.5 mg IVPUSH Q6H PRN PRN Reason: Pain Ceftriaxone Sodium/Dextrose 1 (gm/ Premix) 50 mls @ 100 mls/hr IV Q24H [facility] Last Admin: 01/28/20 15:57 Dose: 100 mls/hr Documented by: Dextrose/Water (Dextrose 5% In Water) 1,000 mls @ 100 mls/hr IV ASDIRECTED [facility] Last Admin: 01/27/20 08:06 Dose: 100 mls/hr Documented by: Dextrose/Sodium Chloride (Dextrose 5%-Normal Saline) 1,000 mls @ 100 mls/hr IV 01/28/20@1700 [facility] Last Admin: 01/28/20 17:51 Dose: 100 mls/hr Documented by: Insulin Aspart (Novolog) 0 unit SUBCUT Q6H [facility]; Protocol Last Admin: 01/28/20 17:56 Dose: 2 units Documented by: Insulin Glargine (Lantus Solostar) 20 units SUBCUT BEDTIME [facility] Last Admin: 01/27/20 20:39 Dose: 20 units Documented by: Metoclopramide HCl (Reglan) 10 mg IVPUSH Q6H [facility] Last Admin: 01/28/20 15:56 Dose: 10 mg Documented by: Suboxone 8/2 Sl (Tablets) 0 each PO .ASNEEDED PRN PRN Reason: OPIOID CRAVING Last Admin: 01/28/20 15:58 Dose: 1 each Documented by: Prochlorperazine Edisylate (Compazine) 5 mg IVPUSH Q6H [facility] Last Admin: 01/28/20 12:58 Dose: 5 mg Documented by: Sodium Chloride (Saline Flush) 2.5 ml FLUSH ASDIRECTED PRN PRN Reason: Keep Vein Open Last Admin: 01/23/20 04:07 Dose: 2.5 ml Documented by: Sodium Chloride (Saline Flush) 10 ml FLUSH ASDIRECTED PRN PRN Reason: Keep Vein Open Last Admin: 01/23/20 04:07 Dose: 10 ml Documented by: Discontinued Medications Bisacodyl (Dulcolax) 10 mg RECTAL ONETIME ONE Stop: 01/26/20 14:11 Last Admin: 01/26/20 16:16 Dose: 10 mg Documented by: Cetirizine HCl (Zyrtec) 10 mg PO DAILY [facility] Cetirizine HCl (Zyrtec) 10 mg PO ONETIME ONE Stop: 01/25/20 17:26 Last Admin: 01/25/20 17:58 Dose: Not Given Documented by: Cetirizine HCl (Zyrtec) 10 mg PO ONETIME ONE Stop: 01/25/20 21:46 Last Admin: 01/25/20 21:55 Dose: 10 mg Documented by: Dextrose/Water (Dextrose 50% In Water) 50 ml IV ASDIRECTED PRN PRN Reason: Hypoglycemia Dextrose/Water (Dextrose 50% In Water) 50 ml IV ASDIRECTED PRN PRN Reason: Hypoglycemia Dextrose/Water (Dextrose 50% In Water) 50 ml IV ASDIRECTED PRN PRN Reason: Hypoglycemia Dextrose/Water (Dextrose 50% In Water) 25 ml IV ASDIRECTED PRN PRN Reason: Hypoglycemia Diphenhydramine HCl (Benadryl) 50 mg IVPUSH ONETIME ONE Stop: 01/23/20 04:27 Last Admin: 01/23/20 04:37 Dose: 50 mg Documented by: Diphenhydramine HCl (Benadryl) 25 mg IVPUSH ONETIME ONE Stop: 01/24/20 09:02 Last Admin: 01/24/20 09:34 Dose: 25 mg Documented by: Diphenhydramine HCl (Benadryl) 25 mg IVPUSH ONETIME ONE Stop: 01/24/20 21:38 Last Admin: 01/24/20 21:47 Dose: 25 mg Documented by: Diphenhydramine HCl (Benadryl) 25 mg IVPUSH ONETIME ONE Stop: 01/25/20 07:45 Last Admin: 01/25/20 08:15 Dose: 25 mg Documented by: Famotidine (Pepcid) 20 mg PO ONETIME ONE Stop: 01/25/20 08:11 Last Admin: 01/25/20 08:23 Dose: 20 mg Documented by: Glucagon (Glucagen) 1 mg IM ASDIRECTED PRN PRN Reason: Hypoglycemia Glucagon (Glucagen) 1 mg IM ASDIRECTED PRN PRN Reason: Hypoglycemia Glucagon (Glucagen) 1 mg IM ASDIRECTED PRN PRN Reason: Hypoglycemia Haloperidol Lactate (Haldol) 3 mg IM ONETIME ONE Stop: 01/23/20 03:56 Last Admin: 01/23/20 04:03 Dose: 3 mg Documented by: Haloperidol Lactate (Haldol) 1 mg IM ONETIME ONE Stop: 01/26/20 09:01 Last Admin: 01/26/20 09:39 Dose: 1 mg Documented by: Hydromorphone HCl (Dilaudid) 1 mg IVPUSH ONETIME ONE Stop: 01/23/20 04:27 Last Admin: 01/23/20 04:37 Dose: 1 mg Documented by: Hydromorphone HCl (Dilaudid) 0.5 mg IVPUSH Q6H [facility] Last Admin: 01/27/20 13:08 Dose: Not Given Documented by: Hydromorphone HCl (Dilaudid) 0.5 mg IVPUSH Q6H PRN PRN Reason: Pain Last Admin: 01/28/20 10:08 Dose: 0.5 mg Documented by: Hydroxyzine HCl (Atarax) 25 mg PO ONETIME ONE Stop: 01/26/20 17:34 Last Admin: 01/26/20 17:45 Dose: 25 mg Documented by: Lactated Ringer's (Ringers, Lactated) 1,000 mls @ 999 mls/hr IV .BOLUS ONE Stop: 01/23/20 04:39 Last Admin: 01/23/20 04:04 Dose: 999 mls/hr Documented by: Lactated Ringer's (Ringers, Lactated) 1,000 mls @ 999 mls/hr IV .BOLUS ONE Stop: 01/23/20 05:26 Last Admin: 01/23/20 04:39 Dose: 999 mls/hr Documented by: Pantoprazole Sodium 40 mg/ (Sodium Chloride) 20 mls @ 420 mls/hr IVPUSH ONETIME ONE Stop: 01/23/20 04:29 Last Admin: 01/23/20 04:36 Dose: 420 mls/hr Documented by: Lactated Ringer's (Ringers, Lactated) 1,000 mls @ 999 mls/hr IV .BOLUS ONE Stop: 01/23/20 06:55 Last Admin: 01/23/20 06:02 Dose: 999 mls/hr Documented by: Dextrose/Sodium Chloride (Dextrose 5%-Normal Saline) 1,000 mls @ 75 mls[facility] Last Admin: 01/23/20 09:36 Dose: 75 mls/hr Documented by: Potassium Chloride 40 meq/ (Premix) 100 mls @ 25 mls/hr IV ONETIME ONE Stop: 01/23/20 14:21 Last Admin: 01/23/20 10:49 Dose: 25 mls/hr Documented by: Potassium Chloride/Sodium Chloride (Normal Saline With 40 Meq Kcl) 1,000 mls @ 150 mls/hr IV ASDIRECTED [facility] Stop: 01/23/20 21:24 Last Admin: 01/23/20 17:26 Dose: 150 mls/hr Documented by: Ceftriaxone Sodium 1 gm/ (Sodium Chloride) 50 mls @ 100 mls/hr IV Q24H [facility] Last Admin: 01/23/20 17:50 Dose: Not Given Documented by: Ceftriaxone Sodium/Dextrose 1 (gm/ Premix) 50 mls @ 100 mls/hr IV Q24H [facility] Meropenem/Sodium Chloride 1 gm (/ Premix) 50 mls @ 100 mls/hr IV Q8H [facility] Last Admin: 01/25/20 08:25 Dose: 100 mls/hr Documented by: Dextrose/Sodium Chloride (Dextrose 5%-Normal Saline) 1,000 mls @ 100 mls/hr IV ASDIRECTED [facility] Piperacillin Sod/Tazobactam (Sod 3.375 gm/ Sodium Chloride) 50 mls @ 100 mls/hr IV Q6H [facility] Last Admin: 01/23/20 22:24 Dose: 100 mls/hr Documented by: Dextrose/Sodium Chloride (Dextrose 5%-Normal Saline) 1,000 mls @ 100 mls/hr IV ASDIRECTED [facility] Last Admin: 01/24/20 13:24 Dose: 100 mls/hr Documented by: Lactated Ringer's (Ringers, Lactated) 1,000 mls @ 500 mls/hr IV .BOLUS ONE Stop: 01/24/20 01:30 Last Admin: 01/23/20 23:45 Dose: 500 mls/hr Documented by: Lactated Ringer's (Ringers, Lactated) 1,000 mls @ 1,000 mls/hr IV .BOLUS ONE Stop: 01/24/20 10:21 Last Admin: 01/24/20 09:38 Dose: 1,000 mls/hr Documented by: Lactated Ringer's (Ringers, Lactated) 1,000 mls @ 100 mls/hr IV ASDIRECTED [facility] Last Admin: 01/25/20 10:24 Dose: 100 mls/hr Documented by: Lactated Ringer's (Ringers, Lactated) 1,000 mls @ 100 mls/hr IV ASDIRECTED [facility] Last Admin: 01/25/20 20:30 Dose: 100 mls/hr Documented by: Dextrose/Water (Dextrose 5% In Water) 1,000 mls @ 100 mls/hr IV Q10H [facility] Last Admin: 01/26/20 22:13 Dose: 100 mls/hr Documented by: Lactated Ringer's (Ringers, Lactated) 1,000 mls @ 125 mls/hr IV ASDIRECTED [facility] Last Admin: 01/27/20 03:43 Dose: 125 mls/hr Documented by: Potassium Chloride/Dextrose/Sod Cl (D5 Ns With 20 Meq Kcl) 1,000 mls @ 100 mls/hr IV ASDIRECTED [facility] Last Admin: 01/27/20 12:10 Dose: 100 mls/hr Documented by: Dextrose/Sodium Chloride (Dextrose 5%-Normal Saline) 1,000 mls @ 100 mls/hr IV ASDIRECTED [facility] Last Admin: 01/27/20 22:48 Dose: 100 mls/hr Documented by: Potassium Chloride 20 meq/ (Premix) 50 mls @ 25 mls/hr IV ONETIME ONE Stop: 01/28/20 10:26 Last Admin: 01/28/20 09:40 Dose: Not Given Documented by: Potassium Chloride/Sodium Chloride (Normal Saline With 40 Meq Kcl) 1,000 mls @ 125 mls/hr IV 01/28/20@0900 [facility] Stop: 01/28/20 16:59 Last Admin: 01/28/20 09:37 Dose: 125 mls/hr Documented by: Magnesium Sulfate (Magnesium Sulfate In Water Premix) 2 gm in 50 mls @ 50 mls/hr IV ONETIME ONE Stop: 01/28/20 12:24 Last Admin: 01/28/20 12:11 Dose: 50 mls/hr Documented by: Insulin Aspart (Novolog) 0 unit SUBCUT Q6H [facility]; Protocol Last Admin: 01/25/20 15:18 Dose: 6 unit Documented by: Insulin Glargine (Lantus Solostar) 20 units SUBCUT BEDTIME [facility] Insulin Glargine (Lantus Solostar) 10 units SUBCUT ONETIME ONE Stop: 01/23/20 21:01 Last Admin: 01/23/20 22:23 Dose: 10 units Documented by: Insulin Human Regular (Novolin R) 8 unit IVPUSH ONETIME ONE; Protocol Stop: 01/23/20 04:55 Last Admin: 01/23/20 05:14 Dose: 8 unit Documented by: Insulin Human Regular (Novolin R) 5 unit IVPUSH ONETIME ONE; Protocol Stop: 01/23/20 05:37 Last Admin: 01/23/20 05:44 Dose: 5 unit Documented by: Metoclopramide HCl (Reglan) 10 mg IVPUSH ONETIME ONE Stop: 01/23/20 04:27 Last Admin: 01/23/20 04:39 Dose: 10 mg Documented by: Metoclopramide HCl (Reglan) 10 mg IVPUSH Q4H PRN PRN Reason: Nausea/Vomiting Last Admin: 01/25/20 12:30 Dose: 10 mg Documented by: Morphine Sulfate (Morphine) 2 mg IVPUSH Q4H PRN PRN Reason: Pain Last Admin: 01/25/20 17:37 Dose: 2 mg Documented by: Morphine Sulfate (Morphine) 2 mg IVPUSH Q6H PRN PRN Reason: Pain Last Admin: 01/26/20 15:29 Dose: 2 mg Documented by: Morphine Sulfate (Morphine) 1 mg IVPUSH Q6H PRN PRN Reason: Pain Ondansetron HCl (Zofran) 4 mg IVPUSH Q4H PRN PRN Reason: Nausea Last Admin: 01/25/20 03:55 Dose: 4 mg Documented by: Potassium Chloride (Klor-Con M20) 40 meq PO ONETIME ONE Stop: 01/27/20 07:43 Last Admin: 01/27/20 12:02 Dose: Not Given Documented by: Sepsis Event Note - Focused Exam Vital Signs: Vital Signs Temp Pulse Resp BP Pulse Ox 01/28/20 16:28 37.2 C 92 18 142/93 H 97 01/28/20 11:48 37.0 C 84 16 119/79 98 01/28/20 07:50 36.9 C 75 16 128/86 98 - Problem List & Annotations (1) Bacteremia SNOMED Code(s): 2194087 Code(s): R78.81 - BACTEREMIA Status: Acute Current Visit: Yes (2) Abdominal pain SNOMED Code(s): 28824501 Code(s): R10.9 - UNSPECIFIED ABDOMINAL PAIN Status: Acute Current Visit: Yes (3) Itching SNOMED Code(s): 841916308 Code(s): L29.9 - PRURITUS, UNSPECIFIED Status: Acute Current Visit: Yes (4) Abdominal pain SNOMED Code(s): 52140808 Code(s): R10.9 - UNSPECIFIED ABDOMINAL PAIN Status: Chronic Priority: High Current Visit: Yes Qualifiers: Abdominal location: upper abdomen, unspecified Qualified Code(s): R10.10 - Upper abdominal pain, unspecified (5) Diabetes type 1, uncontrolled SNOMED Code(s): 88734284, 490921967 Code(s): E10.65 - TYPE 1 DIABETES MELLITUS WITH HYPERGLYCEMIA Status: Chronic Priority: Medium Current Visit: Yes Qualifiers: Glycemic state: with hyperglycemia Qualified Code(s): E10.65 - Type 1 diabetes mellitus with hyperglycemia (6) Chronic abdominal pain SNOMED Code(s): 060634318 Code(s): R10.9 - UNSPECIFIED ABDOMINAL PAIN; G89.29 - OTHER CHRONIC PAIN Status: Acute Current Visit: No (7) Diabetic gastroparesis SNOMED Code(s): 052309380 Code(s): E11.43 - TYPE 2 DIABETES W DIABETIC AUTONOMIC (POLY)NEUROPATHY; K31.84 - GASTROPARESIS Status: Chronic Priority: Medium Current Visit: No (8) History of neurogenic bladder SNOMED Code(s): 258537235 Code(s): Z87.448 - PERSONAL HISTORY OF OTHER DISEASES OF URINARY SYSTEM Status: Chronic Current Visit: No - My Orders Last 24 Hours: My Active Orders 01/28/20 17:00 Dextrose 5%-0.9% NaCl [Dextrose 5%-Normal Saline] 1,000 ml IV 01/28/20@1700 - Plan Plan:: I have seen and evaluated the patient and agree with the residents note unless specified in my note
[2020-01-27] MEDS: cefTRIAXone 1 GM in Premix Bag 1 BAG IV SCH (15:50)
[2020-01-27] MEDS: HYDROmorphone 2 MG/ML Syringe IVPUSH PRN (15:58)
[2020-01-27] MEDS: SUBOXONE PO PRN (16:33)
[2020-01-27] MEDS: Insulin Glargine,Human Rec. Analog 100 Units/ML 3 ML Pen SUBCUT SCH (20:39)
[2020-01-27] MEDS ORDERED: Dextrose 5%-0.9% NaCl 1,000 ML IV SCH (22:45)
[2020-01-28] MEDS: Prochlorperazine 10 MG/2 ML SDV IVPUSH SCH ×4 (01:30→20:59)
[2020-01-28] MEDS: Metoclopramide 10 MG/2 ML SDV IVPUSH SCH ×4 (05:08→23:41)
[2020-01-28 06:18] LABS: BLOOD UREA NITROGEN,BUN 14 mg/dL (7.0-18.0); CHLORIDE,CL 112 mmol/L (98-107); GLUCOSE RANDOM 213 mg/dL (74-106); SODIUM,NA 148 mmol/L (136-148)
[2020-01-28] MEDS: Insulin Aspart 100 Units/ML 3 ML Pen SUBCUT SCH ×3 (07:31→17:56)
[2020-01-28] MEDS ORDERED: Potassium Chloride Riders 20 MEQ in Premix Bag 1 BAG IV ONE (08:27)
[2020-01-28] MEDS ORDERED: Sodium Chloride 0.9% with KCl 1,000 ML IV SCH (09:00)
[2020-01-28] MEDS: Famotidine 20 MG/2 ML SDV IV SCH ×2 (09:40→21:02)
[2020-01-28] MEDS: Bisacodyl 10 MG Supp RECTAL SCH (09:40)
[2020-01-28] MEDS: HYDROmorphone 2 MG/ML Syringe IVPUSH PRN (10:08)
[2020-01-28] MEDS ORDERED: Magnesium Sulfate/Water 2 GM/50 ML BAG IV ONE (11:25)
--- NOTE | 2020-01-28 11:31 | PCM.PN ---
<Nereida Dc - Last Filed: 01/28/20 11:25> - General Info Date of Service: 01/28/20 Subjective Update: Bedside: feeling better today compared to yesterday but endorsing N/V and abdominal pain persists. tried eating some jello this AM but eventually brought this back up. Small BM today w.o blood - Review of Systems General: Reports: No Symptoms Pulmonary: Reports: No Symptoms Cardiovascular: Reports: No Symptoms Gastrointestinal: Reports: Abdominal Pain, Nausea, Vomiting. Denies: Constipation, Diarrhea Genitourinary: Reports: No Symptoms Musculoskeletal: Reports: No Symptoms Neurological: Reports: No Symptoms Psychiatric: Reports: No Symptoms - Patient Data Vitals - Most Recent: Last Vital Signs Temp 98.5 F 01/28/20 07:50 Pulse 75 01/28/20 07:50 Resp 16 01/28/20 07:50 BP 128/86 01/28/20 07:50 Pulse Ox 98 01/28/20 07:50 Weight - Most Recent: 51.256 kg I&O - Last 24 Hours: Intake & Output 01/27/20 01/28/20 01/28/20 22:59 06:59 14:59 Intake Total 100 250 Output Total 1250 460 Balance -1150 -210 Lab Results Last 24 Hours: Laboratory Results - last 24 hr 01/27/20 01/27/20 01/28/20 Range/Units 17:23 23:54 05:12 WBC 5.01 (4.0-11.0) K/uL RBC 3.70 L (4.50-5.90) M/uL Hgb 9.8 L (13.0-17.0) g/dL Hct 30.4 L (38.0-50.0) % MCV 82.2 (80.0-98.0) fL MCH 26.5 L (27.0-32.0) pg MCHC 32.2 (31.0-37.0) g/dL RDW Std Deviation 42.8 (28.0-62.0) fl RDW Coeff of Erika 14 (11.0-15.0) % Plt Count 196 (150-400) K/uL MPV 9.60 (7.40-12.00) fL Neut % (Auto) 45.1 L (48.0-80.0) % Lymph % (Auto) 47.7 H (16.0-40.0) % [place] % (Auto) 6.4 (0.0-15.0) % Eos % (Auto) 0.6 (0.0-7.0) % Baso % (Auto) 0.2 (0.0-1.5) % Neut # (Auto) 2.3 (1.4-5.7) K/uL Lymph # (Auto) 2.4 (0.6-2.4) K/uL [place] # (Auto) 0.3 (0.0-0.8) K/uL Eos # (Auto) 0.0 (0.0-0.7) K/uL Baso # (Auto) 0.0 (0.0-0.1) K/uL Nucleated RBC % 0.0 /100WBC Nucleated RBCs # 0 K/uL Sodium (136-148) mmol/L Potassium (3.5-5.1) mmol/L Chloride (98-107) mmol/L Carbon Dioxide (21.0-32.0) mmol/L BUN (7.0-18.0) mg/dL Creatinine (0.8-1.3) mg/dL Est Cr Clr Drug Dosing mL/min Estimated GFR (MDRD) ml/min Glucose (74-106) mg/dL POC Glucose 203 H 233 H (60-110) mg/dL Calcium (8.5-10.1) mg/dL Magnesium (1.8-2.4) mg/dL Total Bilirubin (0.2-1.0) mg/dL AST (15-37) IU/L ALT (14-63) IU/L Alkaline Phosphatase (46-116) U/L Total Protein (6.4-8.2) g/dL Albumin (3.4-5.0) g/dL Globulin (2.6-4.0) g/dL Albumin/Globulin Ratio (0.9-1.6) 01/28/20 01/28/20 01/28/20 Range/Units 05:12 05:12 07:27 WBC (4.0-11.0) K/uL RBC (4.50-5.90) M/uL Hgb (13.0-17.0) g/dL Hct (38.0-50.0) % MCV (80.0-98.0) fL MCH (27.0-32.0) pg MCHC (31.0-37.0) g/dL RDW Std Deviation (28.0-62.0) fl RDW Coeff of Erika (11.0-15.0) % Plt Count (150-400) K/uL MPV (7.40-12.00) fL Neut % (Auto) (48.0-80.0) % Lymph % (Auto) (16.0-40.0) % [place] % (Auto) (0.0-15.0) % Eos % (Auto) (0.0-7.0) % Baso % (Auto) (0.0-1.5) % Neut # (Auto) (1.4-5.7) K/uL Lymph # (Auto) (0.6-2.4) K/uL [place] # (Auto) (0.0-0.8) K/uL Eos # (Auto) (0.0-0.7) K/uL Baso # (Auto) (0.0-0.1) K/uL Nucleated RBC % /100WBC Nucleated RBCs # K/uL Sodium 148 (136-148) mmol/L Potassium 3.0 L (3.5-5.1) mmol/L Chloride 112 H (98-107) mmol/L Carbon Dioxide 30.0 (21.0-32.0) mmol/L BUN 14 (7.0-18.0) mg/dL Creatinine 0.8 (0.8-1.3) mg/dL Est Cr Clr Drug Dosing 105.00 mL/min Estimated GFR (MDRD) > 60.0 ml/min Glucose 213 H (74-106) mg/dL POC Glucose 181 H (60-110) mg/dL Calcium 8.3 L (8.5-10.1) mg/dL Magnesium 1.6 L (1.8-2.4) mg/dL Total Bilirubin 0.2 (0.2-1.0) mg/dL AST 8 L (15-37) IU/L ALT 13 L (14-63) IU/L Alkaline Phosphatase 63 (46-116) U/L Total Protein 6.1 L (6.4-8.2) g/dL Albumin 1.8 L (3.4-5.0) g/dL Globulin 4.3 H (2.6-4.0) g/dL Albumin/Globulin Ratio 0.4 L (0.9-1.6) Donaldo Results Last 24 Hours: Microbiology 01/24/20 00:25 Aerobic Blood Culture - Preliminary Blood - Venous - Lab Draw NO GROWTH AFTER 4 DAYS Anaerobic Blood Culture - Preliminary NO GROWTH AFTER 4 DAYS 01/24/20 00:15 Aerobic Blood Culture - Preliminary Blood - Venous NO GROWTH AFTER 4 DAYS Anaerobic Blood Culture - Preliminary NO GROWTH AFTER 4 DAYS Med Orders - Current: Current Medications Bisacodyl (Dulcolax) 10 mg RECTAL DAILY [facility] Last Admin: 01/28/20 09:40 Dose: 10 mg Documented by: Dextrose/Water (Dextrose 50% In Water) 50 ml IV ASDIRECTED PRN PRN Reason: Hypoglycemia Last Admin: 01/23/20 21:17 Dose: 50 ml Documented by: Famotidine (Pepcid) 40 mg IV BID [facility] Last Admin: 01/28/20 09:40 Dose: 40 mg Documented by: Glucagon (Glucagen) 1 mg IM ASDIRECTED PRN PRN Reason: Hypoglycemia Hydromorphone HCl (Dilaudid) 0.5 mg IVPUSH Q6H PRN PRN Reason: Pain Last Admin: 01/28/20 10:08 Dose: 0.5 mg Documented by: Ceftriaxone Sodium/Dextrose 1 (gm/ Premix) 50 mls @ 100 mls/hr IV Q24H [facility] Last Admin: 01/27/20 15:50 Dose: 100 mls/hr Documented by: Dextrose/Water (Dextrose 5% In Water) 1,000 mls @ 100 mls/hr IV ASDIRECTED [facility] Last Admin: 01/27/20 08:06 Dose: 100 mls/hr Documented by: Potassium Chloride/Sodium Chloride (Normal Saline With 40 Meq Kcl) 1,000 mls @ 125 mls/hr IV 01/28/20@0900 [facility] Stop: 01/28/20 16:59 Last Admin: 01/28/20 09:37 Dose: 125 mls/hr Documented by: Dextrose/Sodium Chloride (Dextrose 5%-Normal Saline) 1,000 mls @ 100 mls/hr IV 01/28/20@1700 [facility] Insulin Aspart (Novolog) 0 unit SUBCUT Q6H [facility]; Protocol Last Admin: 01/28/20 07:31 Dose: 2 units Documented by: Insulin Glargine (Lantus Solostar) 20 units SUBCUT BEDTIME [facility] Last Admin: 01/27/20 20:39 Dose: 20 units Documented by: Metoclopramide HCl (Reglan) 10 mg IVPUSH Q6H [facility] Last Admin: 01/28/20 09:40 Dose: 10 mg Documented by: Suboxone 8/2 Sl (Tablets) 0 each PO .ASNEEDED PRN PRN Reason: OPIOID CRAVING Last Admin: 01/27/20 16:33 Dose: 1 each Documented by: Prochlorperazine Edisylate (Compazine) 5 mg IVPUSH Q6H [facility] Last Admin: 01/28/20 07:28 Dose: 5 mg Documented by: Sodium Chloride (Saline Flush) 2.5 ml FLUSH ASDIRECTED PRN PRN Reason: Keep Vein Open Last Admin: 01/23/20 04:07 Dose: 2.5 ml Documented by: Sodium Chloride (Saline Flush) 10 ml FLUSH ASDIRECTED PRN PRN Reason: Keep Vein Open Last Admin: 01/23/20 04:07 Dose: 10 ml Documented by: Discontinued Medications Bisacodyl (Dulcolax) 10 mg RECTAL ONETIME ONE Stop: 01/26/20 14:11 Last Admin: 01/26/20 16:16 Dose: 10 mg Documented by: Cetirizine HCl (Zyrtec) 10 mg PO DAILY [facility] Cetirizine HCl (Zyrtec) 10 mg PO ONETIME ONE Stop: 01/25/20 17:26 Last Admin: 01/25/20 17:58 Dose: Not Given Documented by: Cetirizine HCl (Zyrtec) 10 mg PO ONETIME ONE Stop: 01/25/20 21:46 Last Admin: 01/25/20 21:55 Dose: 10 mg Documented by: Dextrose/Water (Dextrose 50% In Water) 50 ml IV ASDIRECTED PRN PRN Reason: Hypoglycemia Dextrose/Water (Dextrose 50% In Water) 50 ml IV ASDIRECTED PRN PRN Reason: Hypoglycemia Dextrose/Water (Dextrose 50% In Water) 50 ml IV ASDIRECTED PRN PRN Reason: Hypoglycemia Dextrose/Water (Dextrose 50% In Water) 25 ml IV ASDIRECTED PRN PRN Reason: Hypoglycemia Diphenhydramine HCl (Benadryl) 50 mg IVPUSH ONETIME ONE Stop: 01/23/20 04:27 Last Admin: 01/23/20 04:37 Dose: 50 mg Documented by: Diphenhydramine HCl (Benadryl) 25 mg IVPUSH ONETIME ONE Stop: 01/24/20 09:02 Last Admin: 01/24/20 09:34 Dose: 25 mg Documented by: Diphenhydramine HCl (Benadryl) 25 mg IVPUSH ONETIME ONE Stop: 01/24/20 21:38 Last Admin: 01/24/20 21:47 Dose: 25 mg Documented by: Diphenhydramine HCl (Benadryl) 25 mg IVPUSH ONETIME ONE Stop: 01/25/20 07:45 Last Admin: 01/25/20 08:15 Dose: 25 mg Documented by: Famotidine (Pepcid) 20 mg PO ONETIME ONE Stop: 01/25/20 08:11 Last Admin: 01/25/20 08:23 Dose: 20 mg Documented by: Glucagon (Glucagen) 1 mg IM ASDIRECTED PRN PRN Reason: Hypoglycemia Glucagon (Glucagen) 1 mg IM ASDIRECTED PRN PRN Reason: Hypoglycemia Glucagon (Glucagen) 1 mg IM ASDIRECTED PRN PRN Reason: Hypoglycemia Haloperidol Lactate (Haldol) 3 mg IM ONETIME ONE Stop: 01/23/20 03:56 Last Admin: 01/23/20 04:03 Dose: 3 mg Documented by: Haloperidol Lactate (Haldol) 1 mg IM ONETIME ONE Stop: 01/26/20 09:01 Last Admin: 01/26/20 09:39 Dose: 1 mg Documented by: Hydromorphone HCl (Dilaudid) 1 mg IVPUSH ONETIME ONE Stop: 01/23/20 04:27 Last Admin: 01/23/20 04:37 Dose: 1 mg Documented by: Hydromorphone HCl (Dilaudid) 0.5 mg IVPUSH Q6H [facility] Last Admin: 01/27/20 13:08 Dose: Not Given Documented by: Hydroxyzine HCl (Atarax) 25 mg PO ONETIME ONE Stop: 01/26/20 17:34 Last Admin: 01/26/20 17:45 Dose: 25 mg Documented by: Lactated Ringer's (Ringers, Lactated) 1,000 mls @ 999 mls/hr IV .BOLUS ONE Stop: 01/23/20 04:39 Last Admin: 01/23/20 04:04 Dose: 999 mls/hr Documented by: Lactated Ringer's (Ringers, Lactated) 1,000 mls @ 999 mls/hr IV .BOLUS ONE Stop: 01/23/20 05:26 Last Admin: 01/23/20 04:39 Dose: 999 mls/hr Documented by: Pantoprazole Sodium 40 mg/ (Sodium Chloride) 20 mls @ 420 mls/hr IVPUSH ONETIME ONE Stop: 01/23/20 04:29 Last Admin: 01/23/20 04:36 Dose: 420 mls/hr Documented by: Lactated Ringer's (Ringers, Lactated) 1,000 mls @ 999 mls/hr IV .BOLUS ONE Stop: 01/23/20 06:55 Last Admin: 01/23/20 06:02 Dose: 999 mls/hr Documented by: Dextrose/Sodium Chloride (Dextrose 5%-Normal Saline) 1,000 mls @ 75 mls/hr IV ASDIRECTED [facility] Last Admin: 01/23/20 09:36 Dose: 75 mls/hr Documented by: Potassium Chloride 40 meq/ (Premix) 100 mls @ 25 mls/hr IV ONETIME ONE Stop: 01/23/20 14:21 Last Admin: 01/23/20 10:49 Dose: 25 mls/hr Documented by: Potassium Chloride/Sodium Chloride (Normal Saline With 40 Meq Kcl) 1,000 mls @ 150 mls/hr IV ASDIRECTED [facility] Stop: 01/23/20 21:24 Last Admin: 01/23/20 17:26 Dose: 150 mls/hr Documented by: Ceftriaxone Sodium 1 gm/ (Sodium Chloride) 50 mls @ 100 mls/hr IV Q24H [facility] Last Admin: 01/23/20 17:50 Dose: Not Given Documented by: Ceftriaxone Sodium/Dextrose 1 (gm/ Premix) 50 mls @ 100 mls/hr IV Q24H [facility] Meropenem/Sodium Chloride 1 gm (/ Premix) 50 mls @ 100 mls/hr IV Q8H [facility] Last Admin: 01/25/20 08:25 Dose: 100 mls/hr Documented by: Dextrose/Sodium Chloride (Dextrose 5%-Normal Saline) 1,000 mls @ 100 mls/hr IV ASDIRECTED [facility] Piperacillin Sod/Tazobactam (Sod 3.375 gm/ Sodium Chloride) 50 mls @ 100 mls/hr IV Q6H [facility] Last Admin: 01/23/20 22:24 Dose: 100 mls/hr Documented by: Dextrose/Sodium Chloride (Dextrose 5%-Normal Saline) 1,000 mls @ 100 mls/hr IV ASDIRECTED [facility] Last Admin: 01/24/20 13:24 Dose: 100 mls/hr Documented by: Lactated Ringer's (Ringers, Lactated) 1,000 mls @ 500 mls/hr IV .BOLUS ONE Stop: 01/24/20 01:30 Last Admin: 01/23/20 23:45 Dose: 500 mls/hr Documented by: Lactated Ringer's (Ringers, Lactated) 1,000 mls @ 1,000 mls/hr IV .BOLUS ONE Stop: 01/24/20 10:21 Last Admin: 01/24/20 09:38 Dose: 1,000 mls/hr Documented by: Lactated Ringer's (Ringers, Lactated) 1,000 mls @ 100 mls/hr IV ASDIRECTED [facility] Last Admin: 01/25/20 10:24 Dose: 100 mls/hr Documented by: Lactated Ringer's (Ringers, Lactated) 1,000 mls @ 100 mls/hr IV ASDIRECTED [facility] Last Admin: 01/25/20 20:30 Dose: 100 mls/hr Documented by: Dextrose/Water (Dextrose 5% In Water) 1,000 mls @ 100 mls/hr IV Q10H [facility] Last Admin: 01/26/20 22:13 Dose: 100 mls/hr Documented by: Lactated Ringer's (Ringers, Lactated) 1,000 mls @ 125 mls/hr IV ASDIRECTED [facility] Last Admin: 01/27/20 03:43 Dose: 125 mls/hr Documented by: Potassium Chloride/Dextrose/Sod Cl (D5 Ns With 20 Meq Kcl) 1,000 mls @ 100 mls/hr IV ASDIRECTED [facility] Last Admin: 01/27/20 12:10 Dose: 100 mls/hr Documented by: Dextrose/Sodium Chloride (Dextrose 5%-Normal Saline) 1,000 mls @ 100 mls/hr IV ASDIRECTED [facility] Last Admin: 01/27/20 22:48 Dose: 100 mls/hr Documented by: Potassium Chloride 20 meq/ (Premix) 50 mls @ 25 mls/hr IV ONETIME ONE Stop: 01/28/20 10:26 Last Admin: 01/28/20 09:40 Dose: Not Given Documented by: Insulin Aspart (Novolog) 0 unit SUBCUT Q6H [facility]; Protocol Last Admin: 01/25/20 15:18 Dose: 6 unit Documented by: Insulin Glargine (Lantus Solostar) 20 units SUBCUT BEDTIME [facility] Insulin Glargine (Lantus Solostar) 10 units SUBCUT ONETIME ONE Stop: 01/23/20 21:01 Last Admin: 01/23/20 22:23 Dose: 10 units Documented by: Insulin Human Regular (Novolin R) 8 unit IVPUSH ONETIME ONE; Protocol Stop: 01/23/20 04:55 Last Admin: 01/23/20 05:14 Dose: 8 unit Documented by: Insulin Human Regular (Novolin R) 5 unit IVPUSH ONETIME ONE; Protocol Stop: 01/23/20 05:37 Last Admin: 01/23/20 05:44 Dose: 5 unit Documented by: Metoclopramide HCl (Reglan) 10 mg IVPUSH ONETIME ONE Stop: 01/23/20 04:27 Last Admin: 01/23/20 04:39 Dose: 10 mg Documented by: Metoclopramide HCl (Reglan) 10 mg IVPUSH Q4H PRN PRN Reason: Nausea/Vomiting Last Admin: 01/25/20 12:30 Dose: 10 mg Documented by: Morphine Sulfate (Morphine) 2 mg IVPUSH Q4H PRN PRN Reason: Pain Last Admin: 01/25/20 17:37 Dose: 2 mg Documented by: Morphine Sulfate (Morphine) 2 mg IVPUSH Q6H PRN PRN Reason: Pain Last Admin: 01/26/20 15:29 Dose: 2 mg Documented by: Morphine Sulfate (Morphine) 1 mg IVPUSH Q6H PRN PRN Reason: Pain Ondansetron HCl (Zofran) 4 mg IVPUSH Q4H PRN PRN Reason: Nausea Last Admin: 01/25/20 03:55 Dose: 4 mg Documented by: Potassium Chloride (Klor-Con M20) 40 meq PO ONETIME ONE Stop: 01/27/20 07:43 Last Admin: 01/27/20 12:02 Dose: Not Given Documented by: - Exam Quality Assessment: No: Supplemental Oxygen General: Alert, Oriented HEENT: EOMI Neck: Supple Lungs: Clear to Auscultation, Normal Respiratory Effort Cardiovascular: Regular Rate, Regular Rhythm GI/Abdominal Exam: Other (tenderness noted over belly w. minimal palpation; edge removed . no rebound tenderness ) Extremities: Normal Inspection Neurological: No New Focal Deficit Psy/Mental Status: Alert, Anxious Sepsis Event Note - Evaluation Sepsis Screening Result: No Definite Risk - Focused Exam Vital Signs: Vital Signs Temp Pulse Resp BP Pulse Ox 01/28/20 07:50 98.5 F 75 16 128/86 98 01/28/20 04:00 98 F 82 18 108/70 98 01/28/20 00:00 98.1 F 75 18 130/68 96 - Problem List & Annotations (1) Abdominal pain SNOMED Code(s): 04916211 Code(s): R10.9 - UNSPECIFIED ABDOMINAL PAIN Status: Acute Current Visit: Yes (2) Bacteremia SNOMED Code(s): 1511686 Code(s): R78.81 - BACTEREMIA Status: Acute Current Visit: Yes (3) Hyperglycemia SNOMED Code(s): 01706108 Code(s): R73.9 - HYPERGLYCEMIA, UNSPECIFIED Status: Acute Current Visit: Yes (4) Nausea & vomiting SNOMED Code(s): 29850700 Code(s): R11.2 - NAUSEA WITH VOMITING, UNSPECIFIED Status: Acute Current Visit: Yes Qualifiers: Vomiting type: unspecified Vomiting Intractability: non-intractable Qualified Code(s): R11.2 - Nausea with vomiting, unspecified (5) Diabetes type 1, uncontrolled SNOMED Code(s): 87603251, 838067600 Code(s): E10.65 - TYPE 1 DIABETES MELLITUS WITH HYPERGLYCEMIA Status: Chronic Priority: Medium Current Visit: Yes Qualifiers: Glycemic state: with hyperglycemia Qualified Code(s): E10.65 - Type 1 diabetes mellitus with hyperglycemia - Problem List Review Problem List Initiated/Reviewed/Updated: Yes - My Orders Last 24 Hours: My Active Orders 01/27/20 12:08 HYDROmorphone [Dilaudid] 0.5 mg IVPUSH Q6H PRN 01/28/20 09:00 Sodium Chloride 0.9% with KCl [Normal Saline with 40 mEq KCl] 1,000 ml IV 01/28/20@0900 01/28/20 11:25 Magnesium Sulfate 2 GM in Water @ 50 MLS/HR(50ml) Magnesium Sulfate/Water [Magnesium Sulfate in Water Premix] 2 gm in 50 ml IV ONETIME 01/29/20 05:11 CBC WITH AUTO DIFF [HEME] AM COMPREHENSIVE METABOLIC PN,CMP [CHEM] AM 01/30/20 05:11 CBC WITH AUTO DIFF [HEME] AM COMPREHENSIVE METABOLIC PN,CMP [CHEM] AM - Plan Plan:: Assessment: 1. Acute on chronic abdominal pain w/ n/v in setting of Gastroparesis (uncontrolled Type I DM) 2. +E.coli bacteremia 3. Hypernatremia:resolved 4. type I DM 5. Hx of opioid abuse 6. Hypomagnesemia 7. hypokalemia Plan 1. Bacteremia: E. Coli : continue Rocephin ; awaiting repeat Culture Afebrile 2. Gastroparesis/abdominal pain : trialed Compazine alternating w. Reglan scheduled . Repeat US unremarkable w. moderate resolution of bladder distension and hydronephrosis Hypomagnesemia: replete w. 2 grams today ; recheck in AM Switch from Morphine to Dilaudid for pain control is improving pain w. decreased episodes of pruritus; continue Dilaudid for now Removed Edge catheter; continue to monitor for retention <Miguel Pollack - Last Filed: 01/28/20 17:49> - General Info Subjective Update: I have seen and evaluated the patient and agree with the residents note unless specified in my note - Patient Data Vitals - Most Recent: Last Vital Signs Temp 37.2 C 01/28/20 16:28 Pulse 92 01/28/20 16:28 Resp 18 01/28/20 16:28 BP 142/93 H 01/28/20 16:28 Pulse Ox 97 01/28/20 16:28 I&O - Last 24 Hours: Intake & Output 01/28/20 01/28/20 01/28/20 06:59 14:59 22:59 Intake Total 250 300 Output Total 460 1500 Balance -210 -1200 Lab Results Last 24 Hours: Laboratory Results - last 24 hr 01/27/20 01/28/20 01/28/20 Range/Units 23:54 05:12 05:12 WBC 5.01 (4.0-11.0) K/uL RBC 3.70 L (4.50-5.90) M/uL Hgb 9.8 L (13.0-17.0) g/dL Hct 30.4 L (38.0-50.0) % MCV 82.2 (80.0-98.0) fL MCH 26.5 L (27.0-32.0) pg MCHC 32.2 (31.0-37.0) g/dL RDW Std Deviation 42.8 (28.0-62.0) fl RDW Coeff of Erika 14 (11.0-15.0) % Plt Count 196 (150-400) K/uL MPV 9.60 (7.40-12.00) fL Neut % (Auto) 45.1 L (48.0-80.0) % Lymph % (Auto) 47.7 H (16.0-40.0) % [place] % (Auto) 6.4 (0.0-15.0) % Eos % (Auto) 0.6 (0.0-7.0) % Baso % (Auto) 0.2 (0.0-1.5) % Neut # (Auto) 2.3 (1.4-5.7) K/uL Lymph # (Auto) 2.4 (0.6-2.4) K/uL [place] # (Auto) 0.3 (0.0-0.8) K/uL Eos # (Auto) 0.0 (0.0-0.7) K/uL Baso # (Auto) 0.0 (0.0-0.1) K/uL Nucleated RBC % 0.0 /100WBC Nucleated RBCs # 0 K/uL Sodium 148 (136-148) mmol/L Potassium 3.0 L (3.5-5.1) mmol/L Chloride 112 H (98-107) mmol/L Carbon Dioxide 30.0 (21.0-32.0) mmol/L BUN 14 (7.0-18.0) mg/dL Creatinine 0.8 (0.8-1.3) mg/dL Est Cr Clr Drug Dosing 105.00 mL/min Estimated GFR (MDRD) > 60.0 ml/min Glucose 213 H (74-106) mg/dL POC Glucose 233 H (60-110) mg/dL Calcium 8.3 L (8.5-10.1) mg/dL Magnesium (1.8-2.4) mg/dL Total Bilirubin 0.2 (0.2-1.0) mg/dL AST 8 L (15-37) IU/L ALT 13 L (14-63) IU/L Alkaline Phosphatase 63 (46-116) U/L Total Protein 6.1 L (6.4-8.2) g/dL Albumin 1.8 L (3.4-5.0) g/dL Globulin 4.3 H (2.6-4.0) g/dL Albumin/Globulin Ratio 0.4 L (0.9-1.6) 01/28/20 01/28/20 01/28/20 Range/Units 05:12 07:27 12:13 WBC (4.0-11.0) K/uL RBC (4.50-5.90) M/uL Hgb (13.0-17.0) g/dL Hct (38.0-50.0) % MCV (80.0-98.0) fL MCH (27.0-32.0) pg MCHC (31.0-37.0) g/dL RDW Std Deviation (28.0-62.0) fl RDW Coeff of Erika (11.0-15.0) % Plt Count (150-400) K/uL MPV (7.40-12.00) fL Neut % (Auto) (48.0-80.0) % Lymph % (Auto) (16.0-40.0) % [place] % (Auto) (0.0-15.0) % Eos % (Auto) (0.0-7.0) % Baso % (Auto) (0.0-1.5) % Neut # (Auto) (1.4-5.7) K/uL Lymph # (Auto) (0.6-2.4) K/uL [place] # (Auto) (0.0-0.8) K/uL Eos # (Auto) (0.0-0.7) K/uL Baso # (Auto) (0.0-0.1) K/uL Nucleated RBC % /100WBC Nucleated RBCs # K/uL Sodium (136-148) mmol/L Potassium (3.5-5.1) mmol/L Chloride (98-107) mmol/L Carbon Dioxide (21.0-32.0) mmol/L BUN (7.0-18.0) mg/dL Creatinine (0.8-1.3) mg/dL Est Cr Clr Drug Dosing mL/min Estimated GFR (MDRD) ml/min Glucose (74-106) mg/dL POC Glucose 181 H 173 H (60-110) mg/dL Calcium (8.5-10.1) mg/dL Magnesium 1.6 L (1.8-2.4) mg/dL Total Bilirubin (0.2-1.0) mg/dL AST (15-37) IU/L ALT (14-63) IU/L Alkaline Phosphatase (46-116) U/L Total Protein (6.4-8.2) g/dL Albumin (3.4-5.0) g/dL Globulin (2.6-4.0) g/dL Albumin/Globulin Ratio (0.9-1.6) [facility] Results Last 24 Hours: Microbiology 01/24/20 00:25 Aerobic Blood Culture - Preliminary Blood - Venous - Lab Draw NO GROWTH AFTER 4 DAYS Anaerobic Blood Culture - Preliminary NO GROWTH AFTER 4 DAYS 01/24/20 00:15 Aerobic Blood Culture - Preliminary Blood - Venous NO GROWTH AFTER 4 DAYS Anaerobic Blood Culture - Preliminary NO GROWTH AFTER 4 DAYS Med Orders - Current: Current Medications Bisacodyl (Dulcolax) 10 mg RECTAL DAILY [facility] Last Admin: 01/28/20 09:40 Dose: 10 mg Documented by: Dextrose/Water (Dextrose 50% In Water) 50 ml IV ASDIRECTED PRN PRN Reason: Hypoglycemia Last Admin: 01/23/20 21:17 Dose: 50 ml Documented by: Famotidine (Pepcid) 40 mg IV BID [facility] Last Admin: 01/28/20 09:40 Dose: 40 mg Documented by: Glucagon (Glucagen) 1 mg IM ASDIRECTED PRN PRN Reason: Hypoglycemia Hydromorphone HCl (Dilaudid) 0.5 mg IVPUSH Q6H PRN PRN Reason: Pain Ceftriaxone Sodium/Dextrose 1 (gm/ Premix) 50 mls @ 100 mls/hr IV Q24H [facility] Last Admin: 01/28/20 15:57 Dose: 100 mls/hr Documented by: Dextrose/Water (Dextrose 5% In Water) 1,000 mls @ 100 mls/hr IV ASDIRECTED [facility] Last Admin: 01/27/20 08:06 Dose: 100 mls/hr Documented by: Dextrose/Sodium Chloride (Dextrose 5%-Normal Saline) 1,000 mls @ 100 mls/hr IV 01/28/20@1700 AUGUSTINE Insulin Aspart (Novolog) 0 unit SUBCUT Q6H [facility]; Protocol Last Admin: 01/28/20 12:15 Dose: 2 units Documented by: Insulin Glargine (Lantus Solostar) 20 units SUBCUT BEDTIME [facility] Last Admin: 01/27/20 20:39 Dose: 20 units Documented by: Metoclopramide HCl (Reglan) 10 mg IVPUSH Q6H [facility] Last Admin: 01/28/20 15:56 Dose: 10 mg Documented by: Suboxone 8/2 Sl (Tablets) 0 each PO .ASNEEDED PRN PRN Reason: OPIOID CRAVING Last Admin: 01/28/20 15:58 Dose: 1 each Documented by: Prochlorperazine Edisylate (Compazine) 5 mg IVPUSH Q6H [facility] Last Admin: 01/28/20 12:58 Dose: 5 mg Documented by: Sodium Chloride (Saline Flush) 2.5 ml FLUSH ASDIRECTED PRN PRN Reason: Keep Vein Open Last Admin: 01/23/20 04:07 Dose: 2.5 ml Documented by: Sodium Chloride (Saline Flush) 10 ml FLUSH ASDIRECTED PRN PRN Reason: Keep Vein Open Last Admin: 01/23/20 04:07 Dose: 10 ml Documented by: Discontinued Medications Bisacodyl (Dulcolax) 10 mg RECTAL ONETIME ONE Stop: 01/26/20 14:11 Last Admin: 01/26/20 16:16 Dose: 10 mg Documented by: Cetirizine HCl (Zyrtec) 10 mg PO DAILY [facility] Cetirizine HCl (Zyrtec) 10 mg PO ONETIME ONE Stop: 01/25/20 17:26 Last Admin: 01/25/20 17:58 Dose: Not Given Documented by: Cetirizine HCl (Zyrtec) 10 mg PO ONETIME ONE Stop: 01/25/20 21:46 Last Admin: 01/25/20 21:55 Dose: 10 mg Documented by: Dextrose/Water (Dextrose 50% In Water) 50 ml IV ASDIRECTED PRN PRN Reason: Hypoglycemia Dextrose/Water (Dextrose 50% In Water) 50 ml IV ASDIRECTED PRN PRN Reason: Hypoglycemia Dextrose/Water (Dextrose 50% In Water) 50 ml IV ASDIRECTED PRN PRN Reason: Hypoglycemia Dextrose/Water (Dextrose 50% In Water) 25 ml IV ASDIRECTED PRN PRN Reason: Hypoglycemia Diphenhydramine HCl (Benadryl) 50 mg IVPUSH ONETIME ONE Stop: 01/23/20 04:27 Last Admin: 01/23/20 04:37 Dose: 50 mg Documented by: Diphenhydramine HCl (Benadryl) 25 mg IVPUSH ONETIME ONE Stop: 01/24/20 09:02 Last Admin: 01/24/20 09:34 Dose: 25 mg Documented by: Diphenhydramine HCl (Benadryl) 25 mg IVPUSH ONETIME ONE Stop: 01/24/20 21:38 Last Admin: 01/24/20 21:47 Dose: 25 mg Documented by: Diphenhydramine HCl (Benadryl) 25 mg IVPUSH ONETIME ONE Stop: 01/25/20 07:45 Last Admin: 01/25/20 08:15 Dose: 25 mg Documented by: Famotidine (Pepcid) 20 mg PO ONETIME ONE Stop: 01/25/20 08:11 Last Admin: 01/25/20 08:23 Dose: 20 mg Documented by: Glucagon (Glucagen) 1 mg IM ASDIRECTED PRN PRN Reason: Hypoglycemia Glucagon (Glucagen) 1 mg IM ASDIRECTED PRN PRN Reason: Hypoglycemia Glucagon (Glucagen) 1 mg IM ASDIRECTED PRN PRN Reason: Hypoglycemia Haloperidol Lactate (Haldol) 3 mg IM ONETIME ONE Stop: 01/23/20 03:56 Last Admin: 01/23/20 04:03 Dose: 3 mg Documented by: Haloperidol Lactate (Haldol) 1 mg IM ONETIME ONE Stop: 01/26/20 09:01 Last Admin: 01/26/20 09:39 Dose: 1 mg Documented by: Hydromorphone HCl (Dilaudid) 1 mg IVPUSH ONETIME ONE Stop: 01/23/20 04:27 Last Admin: 01/23/20 04:37 Dose: 1 mg Documented by: Hydromorphone HCl (Dilaudid) 0.5 mg IVPUSH Q6H [facility] Last Admin: 01/27/20 13:08 Dose: Not Given Documented by: Hydromorphone HCl (Dilaudid) 0.5 mg IVPUSH Q6H PRN PRN Reason: Pain Last Admin: 01/28/20 10:08 Dose: 0.5 mg Documented by: Hydroxyzine HCl (Atarax) 25 mg PO ONETIME ONE Stop: 01/26/20 17:34 Last Admin: 01/26/20 17:45 Dose: 25 mg Documented by: Lactated Ringer's (Ringers, Lactated) 1,000 mls @ 999 mls/hr IV .BOLUS ONE Stop: 01/23/20 04:39 Last Admin: 01/23/20 04:04 Dose: 999 mls/hr Documented by: Lactated Ringer's (Ringers, Lactated) 1,000 mls @ 999 mls/hr IV .BOLUS ONE Stop: 01/23/20 05:26 Last Admin: 01/23/20 04:39 Dose: 999 mls/hr Documented by: Pantoprazole Sodium 40 mg/ (Sodium Chloride) 20 mls @ 420 mls/hr IVPUSH ONETIME ONE Stop: 01/23/20 04:29 Last Admin: 01/23/20 04:36 Dose: 420 mls/hr Documented by: Lactated Ringer's (Ringers, Lactated) 1,000 mls @ 999 mls/hr IV .BOLUS ONE Stop: 01/23/20 06:55 Last Admin: 01/23/20 06:02 Dose: 999 mls/hr Documented by: Dextrose/Sodium Chloride (Dextrose 5%-Normal Saline) 1,000 mls @ 75 mls/hr IV ASDIRECTED [facility] Last Admin: 01/23/20 09:36 Dose: 75 mls/hr Documented by: Potassium Chloride 40 meq/ (Premix) 100 mls @ 25 mls/hr IV ONETIME ONE Stop: 01/23/20 14:21 Last Admin: 01/23/20 10:49 Dose: 25 mls/hr Documented by: Potassium Chloride/Sodium Chloride (Normal Saline With 40 Meq Kcl) 1,000 mls @ 150 mls/hr IV ASDIRECTED [facility] Stop: 01/23/20 21:24 Last Admin: 01/23/20 17:26 Dose: 150 mls/hr Documented by: Ceftriaxone Sodium 1 gm/ (Sodium Chloride) 50 mls @ 100 mls/hr IV Q24H [facility] Last Admin: 01/23/20 17:50 Dose: Not Given Documented by: Ceftriaxone Sodium/Dextrose 1 (gm/ Premix) 50 mls @ 100 mls/hr IV Q24H [facility] Meropenem/Sodium Chloride 1 gm (/ Premix) 50 mls @ 100 mls/hr IV Q8H [facility] Last Admin: 01/25/20 08:25 Dose: 100 mls/hr Documented by: Dextrose/Sodium Chloride (Dextrose 5%-Normal Saline) 1,000 mls @ 100 mls/hr IV ASDIRECTED [facility] Piperacillin Sod/Tazobactam (Sod 3.375 gm/ Sodium Chloride) 50 mls @ 100 mls/hr IV Q6H [facility] Last Admin: 01/23/20 22:24 Dose: 100 mls/hr Documented by: Dextrose/Sodium Chloride (Dextrose 5%-Normal Saline) 1,000 mls @ 100 mls/hr IV ASDIRECTED [facility] Last Admin: 01/24/20 13:24 Dose: 100 mls/hr Documented by: Lactated Ringer's (Ringers, Lactated) 1,000 mls @ 500 mls/hr IV .BOLUS ONE Stop: 01/24/20 01:30 Last Admin: 01/23/20 23:45 Dose: 500 mls/hr Documented by: Lactated Ringer's (Ringers, Lactated) 1,000 mls @ 1,000 mls/hr IV .BOLUS ONE Stop: 01/24/20 10:21 Last Admin: 01/24/20 09:38 Dose: 1,000 mls/hr Documented by: Lactated Ringer's (Ringers, Lactated) 1,000 mls @ 100 mls/hr IV ASDIRECTED [facility] Last Admin: 01/25/20 10:24 Dose: 100 mls/hr Documented by: Lactated Ringer's (Ringers, Lactated) 1,000 mls @ 100 mls/hr IV ASDIRECTED [facility] Last Admin: 01/25/20 20:30 Dose: 100 mls/hr Documented by: Dextrose/Water (Dextrose 5% In Water) 1,000 mls @ 100 mls/hr IV Q10H [facility] Last Admin: 01/26/20 22:13 Dose: 100 mls/hr Documented by: Lactated Ringer's (Ringers, Lactated) 1,000 mls @ 125 mls/hr IV ASDIRECTED [facility] Last Admin: 01/27/20 03:43 Dose: 125 mls/hr Documented by: Potassium Chloride/Dextrose/Sod Cl (D5 Ns With 20 Meq Kcl) 1,000 mls @ 100 mls/hr IV ASDIRECTED [facility] Last Admin: 01/27/20 12:10 Dose: 100 mls/hr Documented by: Dextrose/Sodium Chloride (Dextrose 5%-Normal Saline) 1,000 mls @ 100 mls/hr IV ASDIRECTED [facility] Last Admin: 01/27/20 22:48 Dose: 100 mls/hr Documented by: Potassium Chloride 20 meq/ (Premix) 50 mls @ 25 mls/hr IV ONETIME ONE Stop: 01/28/20 10:26 Last Admin: 01/28/20 09:40 Dose: Not Given Documented by: Potassium Chloride/Sodium Chloride (Normal Saline With 40 Meq Kcl) 1,000 mls @ 125 mls/hr IV 01/28/20@0900 [facility] Stop: 01/28/20 16:59 Last Admin: 01/28/20 09:37 Dose: 125 mls/hr Documented by: Magnesium Sulfate (Magnesium Sulfate In Water Premix) 2 gm in 50 mls @ 50 mls/hr IV ONETIME ONE Stop: 01/28/20 12:24 Last Admin: 01/28/20 12:11 Dose: 50 mls/hr Documented by: Insulin Aspart (Novolog) 0 unit SUBCUT Q6H [facility]; Protocol Last Admin: 01/25/20 15:18 Dose: 6 unit Documented by: Insulin Glargine (Lantus Solostar) 20 units SUBCUT BEDTIME [facility] Insulin Glargine (Lantus Solostar) 10 units SUBCUT ONETIME ONE Stop: 01/23/20 21:01 Last Admin: 01/23/20 22:23 Dose: 10 units Documented by: Insulin Human Regular (Novolin R) 8 unit IVPUSH ONETIME ONE; Protocol Stop: 01/23/20 04:55 Last Admin: 01/23/20 05:14 Dose: 8 unit Documented by: Insulin Human Regular (Novolin R) 5 unit IVPUSH ONETIME ONE; Protocol Stop: 01/23/20 05:37 Last Admin: 01/23/20 05:44 Dose: 5 unit Documented by: Metoclopramide HCl (Reglan) 10 mg IVPUSH ONETIME ONE Stop: 01/23/20 04:27 Last Admin: 01/23/20 04:39 Dose: 10 mg Documented by: Metoclopramide HCl (Reglan) 10 mg IVPUSH Q4H PRN PRN Reason: Nausea/Vomiting Last Admin: 01/25/20 12:30 Dose: 10 mg Documented by: Morphine Sulfate (Morphine) 2 mg IVPUSH Q4H PRN PRN Reason: Pain Last Admin: 01/25/20 17:37 Dose: 2 mg Documented by: Morphine Sulfate (Morphine) 2 mg IVPUSH Q6H PRN PRN Reason: Pain Last Admin: 01/26/20 15:29 Dose: 2 mg Documented by: Morphine Sulfate (Morphine) 1 mg IVPUSH Q6H PRN PRN Reason: Pain Ondansetron HCl (Zofran) 4 mg IVPUSH Q4H PRN PRN Reason: Nausea Last Admin: 01/25/20 03:55 Dose: 4 mg Documented by: Potassium Chloride (Klor-Con M20) 40 meq PO ONETIME ONE Stop: 01/27/20 07:43 Last Admin: 01/27/20 12:02 Dose: Not Given Documented by: Sepsis Event Note - Focused Exam Vital Signs: Vital Signs Temp Pulse Resp BP Pulse Ox 01/28/20 16:28 37.2 C 92 18 142/93 H 97 01/28/20 11:48 37.0 C 84 16 119/79 98 01/28/20 07:50 36.9 C 75 16 128/86 98 - Problem List & Annotations (1) Bacteremia SNOMED Code(s): 4820228 Code(s): R78.81 - BACTEREMIA Status: Acute Current Visit: Yes (2) Abdominal pain SNOMED Code(s): 50369988 Code(s): R10.9 - UNSPECIFIED ABDOMINAL PAIN Status: Acute Current Visit: Yes (3) Itching SNOMED Code(s): 795313086 Code(s): L29.9 - PRURITUS, UNSPECIFIED Status: Acute Current Visit: Yes (4) Abdominal pain SNOMED Code(s): 55895732 Code(s): R10.9 - UNSPECIFIED ABDOMINAL PAIN Status: Chronic Priority: High Current Visit: Yes Qualifiers: Abdominal location: upper abdomen, unspecified Qualified Code(s): R10.10 - Upper abdominal pain, unspecified (5) Diabetes type 1, uncontrolled SNOMED Code(s): 10731341, 955472567 Code(s): E10.65 - TYPE 1 DIABETES MELLITUS WITH HYPERGLYCEMIA Status: Chronic Priority: Medium Current Visit: Yes Qualifiers: Glycemic state: with hyperglycemia Qualified Code(s): E10.65 - Type 1 diabetes mellitus with hyperglycemia (6) Chronic abdominal pain SNOMED Code(s): 736645550 Code(s): R10.9 - UNSPECIFIED ABDOMINAL PAIN; G89.29 - OTHER CHRONIC PAIN Status: Acute Current Visit: No (7) Diabetic gastroparesis SNOMED Code(s): 348807195 Code(s): E11.43 - TYPE 2 DIABETES W DIABETIC AUTONOMIC (POLY)NEUROPATHY; K31.84 - GASTROPARESIS Status: Chronic Priority: Medium Current Visit: No (8) History of neurogenic bladder SNOMED Code(s): 522071009 Code(s): Z87.448 - PERSONAL HISTORY OF OTHER DISEASES OF URINARY SYSTEM Status: Chronic Current Visit: No - My Orders Last 24 Hours: My Active Orders 01/28/20 17:00 Dextrose 5%-0.9% NaCl [Dextrose 5%-Normal Saline] 1,000 ml IV 01/28/20@1700
[2020-01-28] MEDS: cefTRIAXone 1 GM in Premix Bag 1 BAG IV SCH (15:57)
[2020-01-28] MEDS: SUBOXONE PO PRN ×2 (15:58→21:16)
[2020-01-28] MEDS ORDERED: HYDROmorphone 1 MG/ML Syringe IVPUSH PRN (16:00)
[2020-01-28] MEDS ORDERED: Dextrose 5%-0.9% NaCl 1,000 ML IV SCH (17:00)
[2020-01-28] MEDS: Insulin Glargine,Human Rec. Analog 100 Units/ML 3 ML Pen SUBCUT SCH (21:06)
[2020-01-29] MEDS: Prochlorperazine 10 MG/2 ML SDV IVPUSH SCH ×3 (01:00→12:16)
[2020-01-29] MEDS: Insulin Aspart 100 Units/ML 3 ML Pen SUBCUT SCH ×5 (02:40→23:52)
[2020-01-29] MEDS: SUBOXONE PO PRN ×2 (04:17→09:49)
[2020-01-29] MEDS: Metoclopramide 10 MG/2 ML SDV IVPUSH SCH ×4 (04:17→21:45)
[2020-01-29 06:39] LABS: BLOOD UREA NITROGEN,BUN 14 mg/dL (7.0-18.0); CARBON DIOXIDE,CO2 19.8 mmol/L (21.0-32.0); CHLORIDE,CL 107 mmol/L (98-107); GLUCOSE RANDOM 436 mg/dL (74-106); POTASSIUM,K 3.8 mmol/L (3.5-5.1); SODIUM,NA 145 mmol/L (136-148)
[2020-01-29] MEDS: Sodium Chloride 0.9% 1,000 ML IV SCH ×2 (06:46→16:09)
--- NOTE | 2020-01-29 09:24 | PCM.PN ---
- General Info Date of Service: 01/29/20 Subjective Update: Bedside: mentions continual nausea but less pruritus since yesterday. Endorse having drank 3/5 of an ensure last night and is willing to try another ensure this AM - Review of Systems General: Reports: Weakness HEENT: Reports: No Symptoms Pulmonary: Reports: No Symptoms Cardiovascular: Reports: No Symptoms Gastrointestinal: Reports: Abdominal Pain, Decreased Appetite, Nausea, Vomiting. Denies: Diarrhea, Melena Genitourinary: Reports: No Symptoms Musculoskeletal: Reports: No Symptoms Skin: Reports: No Symptoms Neurological: Reports: No Symptoms Psychiatric: Reports: No Symptoms - Patient Data Vitals - Most Recent: Last Vital Signs Temp 99.0 F 01/29/20 08:00 Pulse 118 H 01/29/20 08:00 Resp 16 01/29/20 08:00 BP 138/91 H 01/29/20 08:00 Pulse Ox 96 01/29/20 08:00 Weight - Most Recent: 51.256 kg I&O - Last 24 Hours: Intake & Output 01/28/20 01/29/20 01/29/20 22:59 06:59 14:59 Intake Total 300 350 Output Total 1500 500 Balance -1200 -150 Lab Results Last 24 Hours: Laboratory Results - last 24 hr 01/28/20 01/28/20 01/28/20 Range/Units 05:12 12:13 17:55 WBC (4.0-11.0) K/uL RBC (4.50-5.90) M/uL Hgb (13.0-17.0) g/dL Hct (38.0-50.0) % MCV (80.0-98.0) fL MCH (27.0-32.0) pg MCHC (31.0-37.0) g/dL RDW Std Deviation (28.0-62.0) fl RDW Coeff of Erika (11.0-15.0) % Plt Count (150-400) K/uL MPV (7.40-12.00) fL Neut % (Auto) (48.0-80.0) % Lymph % (Auto) (16.0-40.0) % Granville % (Auto) (0.0-15.0) % Eos % (Auto) (0.0-7.0) % Baso % (Auto) (0.0-1.5) % Neut # (Auto) (1.4-5.7) K/uL Lymph # (Auto) (0.6-2.4) K/uL Granville # (Auto) (0.0-0.8) K/uL Eos # (Auto) (0.0-0.7) K/uL Baso # (Auto) (0.0-0.1) K/uL Nucleated RBC % /100WBC Nucleated RBCs # K/uL Sodium (136-148) mmol/L Potassium (3.5-5.1) mmol/L Chloride (98-107) mmol/L Carbon Dioxide (21.0-32.0) mmol/L BUN (7.0-18.0) mg/dL Creatinine (0.8-1.3) mg/dL Est Cr Clr Drug Dosing mL/min Estimated GFR (MDRD) ml/min Glucose (74-106) mg/dL POC Glucose 173 H 168 H (60-110) mg/dL Calcium (8.5-10.1) mg/dL Magnesium 1.6 L (1.8-2.4) mg/dL Total Bilirubin (0.2-1.0) mg/dL AST (15-37) IU/L ALT (14-63) IU/L Alkaline Phosphatase (46-116) U/L Total Protein (6.4-8.2) g/dL Albumin (3.4-5.0) g/dL Globulin (2.6-4.0) g/dL Albumin/Globulin Ratio (0.9-1.6) 01/28/20 01/29/20 01/29/20 Range/Units 20:59 02:48 03:33 WBC (4.0-11.0) K/uL RBC (4.50-5.90) M/uL Hgb (13.0-17.0) g/dL Hct (38.0-50.0) % MCV (80.0-98.0) fL MCH (27.0-32.0) pg MCHC (31.0-37.0) g/dL RDW Std Deviation (28.0-62.0) fl RDW Coeff of Erika (11.0-15.0) % Plt Count (150-400) K/uL MPV (7.40-12.00) fL Neut % (Auto) (48.0-80.0) % Lymph % (Auto) (16.0-40.0) % Granville % (Auto) (0.0-15.0) % Eos % (Auto) (0.0-7.0) % Baso % (Auto) (0.0-1.5) % Neut # (Auto) (1.4-5.7) K/uL Lymph # (Auto) (0.6-2.4) K/uL Granville # (Auto) (0.0-0.8) K/uL Eos # (Auto) (0.0-0.7) K/uL Baso # (Auto) (0.0-0.1) K/uL Nucleated RBC % /100WBC Nucleated RBCs # K/uL Sodium (136-148) mmol/L Potassium (3.5-5.1) mmol/L Chloride (98-107) mmol/L Carbon Dioxide (21.0-32.0) mmol/L BUN (7.0-18.0) mg/dL Creatinine (0.8-1.3) mg/dL Est Cr Clr Drug Dosing mL/min Estimated GFR (MDRD) ml/min Glucose (74-106) mg/dL POC Glucose 221 H 400 H 363 H (60-110) mg/dL Calcium (8.5-10.1) mg/dL Magnesium (1.8-2.4) mg/dL Total Bilirubin (0.2-1.0) mg/dL AST (15-37) IU/L ALT (14-63) IU/L Alkaline Phosphatase (46-116) U/L Total Protein (6.4-8.2) g/dL Albumin (3.4-5.0) g/dL Globulin (2.6-4.0) g/dL Albumin/Globulin Ratio (0.9-1.6) 01/29/20 01/29/20 01/29/20 Range/Units 05:35 05:35 06:08 WBC 5.89 (4.0-11.0) K/uL RBC 4.08 L (4.50-5.90) M/uL Hgb 10.6 L (13.0-17.0) g/dL Hct 33.8 L (38.0-50.0) % MCV 82.8 (80.0-98.0) fL MCH 26.0 L (27.0-32.0) pg MCHC 31.4 (31.0-37.0) g/dL RDW Std Deviation 43.0 (28.0-62.0) fl RDW Coeff of Erika 14 (11.0-15.0) % Plt Count 232 (150-400) K/uL MPV 9.80 (7.40-12.00) fL Neut % (Auto) 65.5 (48.0-80.0) % Lymph % (Auto) 29.0 (16.0-40.0) % Granville % (Auto) 4.9 (0.0-15.0) % Eos % (Auto) 0.3 (0.0-7.0) % Baso % (Auto) 0.3 (0.0-1.5) % Neut # (Auto) 3.9 (1.4-5.7) K/uL Lymph # (Auto) 1.7 (0.6-2.4) K/uL [place]ville # (Auto) 0.3 (0.0-0.8) K/uL Eos # (Auto) 0.0 (0.0-0.7) K/uL Baso # (Auto) 0.0 (0.0-0.1) K/uL Nucleated RBC % 0.0 /100WBC Nucleated RBCs # 0 K/uL Sodium 145 (136-148) mmol/L Potassium 3.8 (3.5-5.1) mmol/L Chloride 107 (98-107) mmol/L Carbon Dioxide 19.8 L (21.0-32.0) mmol/L BUN 14 (7.0-18.0) mg/dL Creatinine 0.9 (0.8-1.3) mg/dL Est Cr Clr Drug Dosing 93.34 mL/min Estimated GFR (MDRD) > 60.0 ml/min Glucose 436 H (74-106) mg/dL POC Glucose 397 H (60-110) mg/dL Calcium 8.7 (8.5-10.1) mg/dL Magnesium (1.8-2.4) mg/dL Total Bilirubin 0.4 (0.2-1.0) mg/dL AST 11 L (15-37) IU/L ALT 11 L (14-63) IU/L Alkaline Phosphatase 73 (46-116) U/L Total Protein 7.0 (6.4-8.2) g/dL Albumin 2.2 L (3.4-5.0) g/dL Globulin 4.8 H (2.6-4.0) g/dL Albumin/Globulin Ratio 0.5 L (0.9-1.6) Donaldo Results Last 24 Hours: Microbiology 01/24/20 00:25 Aerobic Blood Culture - Final Blood - Venous - Lab Draw NO GROWTH AFTER 5 DAYS Anaerobic Blood Culture - Final NO GROWTH AFTER 5 DAYS 01/24/20 00:15 Aerobic Blood Culture - Final Blood - Venous NO GROWTH AFTER 5 DAYS Anaerobic Blood Culture - Final NO GROWTH AFTER 5 DAYS Med Orders - Current: Current Medications Bisacodyl (Dulcolax) 10 mg RECTAL DAILY [facility] Last Admin: 01/28/20 09:40 Dose: 10 mg Documented by: Famotidine (Pepcid) 40 mg IV BID [facility] Last Admin: 01/28/20 21:02 Dose: 40 mg Documented by: Glucagon (Glucagen) 1 mg IM ASDIRECTED PRN PRN Reason: Hypoglycemia Hydromorphone HCl (Dilaudid) 0.5 mg IVPUSH Q6H PRN PRN Reason: Pain Ceftriaxone Sodium/Dextrose 1 (gm/ Premix) 50 mls @ 100 mls/hr IV Q24H [facility] Last Admin: 01/28/20 15:57 Dose: 100 mls/hr Documented by: Dextrose/Water (Dextrose 5% In Water) 1,000 mls @ 100 mls/hr IV ASDIRECTED [facility] Last Admin: 01/27/20 08:06 Dose: 100 mls/hr Documented by: Dextrose/Sodium Chloride (Dextrose 5%-Normal Saline) 1,000 mls @ 100 mls/hr IV 01/28/20@1700 [facility] Last Admin: 01/28/20 17:51 Dose: 100 mls/hr Documented by: Sodium Chloride (Normal Saline) 1,000 mls @ 100 mls/hr IV ASDIRECTED [facility] Last Admin: 01/29/20 06:46 Dose: 100 mls/hr Documented by: Insulin Aspart (Novolog) 0 unit SUBCUT Q6H [facility]; Protocol Last Admin: 01/29/20 06:42 Dose: 10 units Documented by: Insulin Glargine (Lantus Solostar) 20 units SUBCUT BEDTIME [facility] Last Admin: 01/28/20 21:06 Dose: 20 units Documented by: Metoclopramide HCl (Reglan) 10 mg IVPUSH Q6H [facility] Last Admin: 01/29/20 04:17 Dose: 10 mg Documented by: Suboxone 8/2 Sl (Tablets) 0 each PO .ASNEEDED PRN PRN Reason: OPIOID CRAVING Last Admin: 01/29/20 04:17 Dose: 0.25 each Documented by: Prochlorperazine Edisylate (Compazine) 5 mg IVPUSH Q6H [facility] Last Admin: 01/29/20 06:42 Dose: 5 mg Documented by: Sodium Chloride (Saline Flush) 2.5 ml FLUSH ASDIRECTED PRN PRN Reason: Keep Vein Open Last Admin: 01/23/20 04:07 Dose: 2.5 ml Documented by: Sodium Chloride (Saline Flush) 10 ml FLUSH ASDIRECTED PRN PRN Reason: Keep Vein Open Last Admin: 01/23/20 04:07 Dose: 10 ml Documented by: Discontinued Medications Bisacodyl (Dulcolax) 10 mg RECTAL ONETIME ONE Stop: 01/26/20 14:11 Last Admin: 01/26/20 16:16 Dose: 10 mg Documented by: Cetirizine HCl (Zyrtec) 10 mg PO DAILY [facility] Cetirizine HCl (Zyrtec) 10 mg PO ONETIME ONE Stop: 01/25/20 17:26 Last Admin: 01/25/20 17:58 Dose: Not Given Documented by: Cetirizine HCl (Zyrtec) 10 mg PO ONETIME ONE Stop: 01/25/20 21:46 Last Admin: 01/25/20 21:55 Dose: 10 mg Documented by: Dextrose/Water (Dextrose 50% In Water) 50 ml IV ASDIRECTED PRN PRN Reason: Hypoglycemia Dextrose/Water (Dextrose 50% In Water) 50 ml IV ASDIRECTED PRN PRN Reason: Hypoglycemia Dextrose/Water (Dextrose 50% In Water) 50 ml IV ASDIRECTED PRN PRN Reason: Hypoglycemia Dextrose/Water (Dextrose 50% In Water) 25 ml IV ASDIRECTED PRN PRN Reason: Hypoglycemia Dextrose/Water (Dextrose 50% In Water) 50 ml IV ASDIRECTED PRN PRN Reason: Hypoglycemia Last Admin: 01/23/20 21:17 Dose: 50 ml Documented by: Diphenhydramine HCl (Benadryl) 50 mg IVPUSH ONETIME ONE Stop: 01/23/20 04:27 Last Admin: 01/23/20 04:37 Dose: 50 mg Documented by: Diphenhydramine HCl (Benadryl) 25 mg IVPUSH ONETIME ONE Stop: 01/24/20 09:02 Last Admin: 01/24/20 09:34 Dose: 25 mg Documented by: Diphenhydramine HCl (Benadryl) 25 mg IVPUSH ONETIME ONE Stop: 01/24/20 21:38 Last Admin: 01/24/20 21:47 Dose: 25 mg Documented by: Diphenhydramine HCl (Benadryl) 25 mg IVPUSH ONETIME ONE Stop: 01/25/20 07:45 Last Admin: 01/25/20 08:15 Dose: 25 mg Documented by: Famotidine (Pepcid) 20 mg PO ONETIME ONE Stop: 01/25/20 08:11 Last Admin: 01/25/20 08:23 Dose: 20 mg Documented by: Glucagon (Glucagen) 1 mg IM ASDIRECTED PRN PRN Reason: Hypoglycemia Glucagon (Glucagen) 1 mg IM ASDIRECTED PRN PRN Reason: Hypoglycemia Glucagon (Glucagen) 1 mg IM ASDIRECTED PRN PRN Reason: Hypoglycemia Haloperidol Lactate (Haldol) 3 mg IM ONETIME ONE Stop: 01/23/20 03:56 Last Admin: 01/23/20 04:03 Dose: 3 mg Documented by: Haloperidol Lactate (Haldol) 1 mg IM ONETIME ONE Stop: 01/26/20 09:01 Last Admin: 01/26/20 09:39 Dose: 1 mg Documented by: Hydromorphone HCl (Dilaudid) 1 mg IVPUSH ONETIME ONE Stop: 01/23/20 04:27 Last Admin: 01/23/20 04:37 Dose: 1 mg Documented by: Hydromorphone HCl (Dilaudid) 0.5 mg IVPUSH Q6H [facility] Last Admin: 01/27/20 13:08 Dose: Not Given Documented by: Hydromorphone HCl (Dilaudid) 0.5 mg IVPUSH Q6H PRN PRN Reason: Pain Last Admin: 01/28/20 10:08 Dose: 0.5 mg Documented by: Hydroxyzine HCl (Atarax) 25 mg PO ONETIME ONE Stop: 01/26/20 17:34 Last Admin: 01/26/20 17:45 Dose: 25 mg Documented by: Lactated Ringer's (Ringers, Lactated) 1,000 mls @ 999 mls/hr IV .BOLUS ONE Stop: 01/23/20 04:39 Last Admin: 01/23/20 04:04 Dose: 999 mls/hr Documented by: Lactated Ringer's (Ringers, Lactated) 1,000 mls @ 999 mls/hr IV .BOLUS ONE Stop: 01/23/20 05:26 Last Admin: 01/23/20 04:39 Dose: 999 mls/hr Documented by: Pantoprazole Sodium 40 mg/ (Sodium Chloride) 20 mls @ 420 mls/hr IVPUSH ONETIME ONE Stop: 01/23/20 04:29 Last Admin: 01/23/20 04:36 Dose: 420 mls/hr Documented by: Lactated Ringer's (Ringers, Lactated) 1,000 mls @ 999 mls/hr IV .BOLUS ONE Stop: 01/23/20 06:55 Last Admin: 01/23/20 06:02 Dose: 999 mls/hr Documented by: Dextrose/Sodium Chloride (Dextrose 5%-Normal Saline) 1,000 mls [facility] Admin: 01/23/20 09:36 Dose: 75 mls/hr Documented by: Potassium Chloride 40 meq/ (Premix) 100 mls @ 25 mls/hr IV ONETIME ONE Stop: 01/23/20 14:21 Last Admin: 01/23/20 10:49 Dose: 25 mls/hr Documented by: Potassium Chloride/Sodium Chloride (Normal Saline With 40 Meq Kcl) 1,000 mls @ 150 mls/hr IV ASDIRECTED [facility] Stop: 01/23/20 21:24 Last Admin: 01/23/20 17:26 Dose: 150 mls/hr Documented by: Ceftriaxone Sodium 1 gm/ (Sodium Chloride) 50 mls @ 100 mls/hr IV Q24H [facility] Last Admin: 01/23/20 17:50 Dose: Not Given Documented by: Ceftriaxone Sodium/Dextrose 1 (gm/ Premix) 50 mls @ 100 mls/hr IV Q24H [facility] Meropenem/Sodium Chloride 1 gm (/ Premix) 50 mls @ 100 mls/hr IV Q8H [facility] Last Admin: 01/25/20 08:25 Dose: 100 mls/hr Documented by: Dextrose/Sodium Chloride (Dextrose 5%-Normal Saline) 1,000 mls @ 100 mls/hr IV ASDIRECTED [facility] Piperacillin Sod/Tazobactam (Sod 3.375 gm/ Sodium Chloride) 50 mls @ 100 mls/hr IV Q6H [facility] Last Admin: 01/23/20 22:24 Dose: 100 mls/hr Documented by: Dextrose/Sodium Chloride (Dextrose 5%-Normal Saline) 1,000 mls @ 100 mls/hr IV ASDIRECTED [facility] Last Admin: 01/24/20 13:24 Dose: 100 mls/hr Documented by: Lactated Ringer's (Ringers, Lactated) 1,000 mls @ 500 mls/hr IV .BOLUS ONE Stop: 01/24/20 01:30 Last Admin: 01/23/20 23:45 Dose: 500 mls/hr Documented by: Lactated Ringer's (Ringers, Lactated) 1,000 mls @ 1,000 mls/hr IV .BOLUS ONE Stop: 01/24/20 10:21 Last Admin: 01/24/20 09:38 Dose: 1,000 mls/hr Documented by: Lactated Ringer's (Ringers, Lactated) 1,000 mls @ 100 mls/hr IV ASDIRECTED [facility] Last Admin: 01/25/20 10:24 Dose: 100 mls/hr Documented by: Lactated Ringer's (Ringers, Lactated) 1,000 mls @ 100 mls/hr IV ASDIRECTED [facility] Last Admin: 01/25/20 20:30 Dose: 100 mls/hr Documented by: Dextrose/Water (Dextrose 5% In Water) 1,000 mls @ 100 mls/hr IV Q10H [facility] Last Admin: 01/26/20 22:13 Dose: 100 mls/hr Documented by: Lactated Ringer's (Ringers, Lactated) 1,000 mls @ 125 mls/hr IV ASDIRECTED [facility] Last Admin: 01/27/20 03:43 Dose: 125 mls/hr Documented by: Potassium Chloride/Dextrose/Sod Cl (D5 Ns With 20 Meq Kcl) 1,000 mls @ 100 mls/hr IV ASDIRECTED [facility] Last Admin: 01/27/20 12:10 Dose: 100 mls/hr Documented by: Dextrose/Sodium Chloride (Dextrose 5%-Normal Saline) 1,000 mls @ 100 mls/hr IV ASDIRECTED [facility] Last Admin: 01/27/20 22:48 Dose: 100 mls/hr Documented by: Potassium Chloride 20 meq/ (Premix) 50 mls @ 25 mls/hr IV ONETIME ONE Stop: 01/28/20 10:26 Last Admin: 01/28/20 09:40 Dose: Not Given Documented by: Potassium Chloride/Sodium Chloride (Normal Saline With 40 Meq Kcl) 1,000 mls @ 125 mls/hr IV 01/28/20@0900 [facility] Stop: 01/28/20 16:59 Last Admin: 01/28/20 09:37 Dose: 125 mls/hr Documented by: Magnesium Sulfate (Magnesium Sulfate In Water Premix) 2 gm in 50 mls @ 50 mls/hr IV ONETIME ONE Stop: 01/28/20 12:24 Last Admin: 01/28/20 12:11 Dose: 50 mls/hr Documented by: Insulin Aspart (Novolog) 0 unit SUBCUT Q6H [facility]; Protocol Last Admin: 01/25/20 15:18 Dose: 6 unit Documented by: Insulin Glargine (Lantus Solostar) 20 units SUBCUT BEDTIME [facility] Insulin Glargine (Lantus Solostar) 10 units SUBCUT ONETIME ONE Stop: 01/23/20 21:01 Last Admin: 01/23/20 22:23 Dose: 10 units Documented by: Insulin Human Regular (Novolin R) 8 unit IVPUSH ONETIME ONE; Protocol Stop: 01/23/20 04:55 Last Admin: 01/23/20 05:14 Dose: 8 unit Documented by: Insulin Human Regular (Novolin R) 5 unit IVPUSH ONETIME ONE; Protocol Stop: 01/23/20 05:37 Last Admin: 01/23/20 05:44 Dose: 5 unit Documented by: Metoclopramide HCl (Reglan) 10 mg IVPUSH ONETIME ONE Stop: 01/23/20 04:27 Last Admin: 01/23/20 04:39 Dose: 10 mg Documented by: Metoclopramide HCl (Reglan) 10 mg IVPUSH Q4H PRN PRN Reason: Nausea/Vomiting Last Admin: 01/25/20 12:30 Dose: 10 mg Documented by: Morphine Sulfate (Morphine) 2 mg IVPUSH Q4H PRN PRN Reason: Pain Last Admin: 01/25/20 17:37 Dose: 2 mg Documented by: Morphine Sulfate (Morphine) 2 mg IVPUSH Q6H PRN PRN Reason: Pain Last Admin: 01/26/20 15:29 Dose: 2 mg Documented by: Morphine Sulfate (Morphine) 1 mg IVPUSH Q6H PRN PRN Reason: Pain Ondansetron HCl (Zofran) 4 mg IVPUSH Q4H PRN PRN Reason: Nausea Last Admin: 01/25/20 03:55 Dose: 4 mg Documented by: Potassium Chloride (Klor-Con M20) 40 meq PO ONETIME ONE Stop: 01/27/20 07:43 Last Admin: 01/27/20 12:02 Dose: Not Given Documented by: - Exam Quality Assessment: No: Supplemental Oxygen General: Alert, Oriented HEENT: EOMI Neck: Supple Lungs: Clear to Auscultation, Normal Respiratory Effort Cardiovascular: Regular Rate, Regular Rhythm GI/Abdominal Exam: Soft, Guarding, Other. No: Non-Tender Extremities: Normal Inspection, Normal Range of Motion Wound/Incisions: Healing Well Neurological: No New Focal Deficit Psy/Mental Status: Alert, Normal Mood Sepsis Event Note - Evaluation Sepsis Screening Result: No Definite Risk - Focused Exam Vital Signs: Vital Signs Temp Pulse Resp BP Pulse Ox 01/29/20 08:00 99.0 F 118 H 16 138/91 H 96 01/29/20 04:00 97.9 F 81 16 132/91 H 98 01/29/20 00:00 98.5 F 81 16 128/80 95 - Problem List & Annotations (1) Abdominal pain SNOMED Code(s): 24660671 Code(s): R10.9 - UNSPECIFIED ABDOMINAL PAIN Status: Acute Current Visit: Yes (2) Bacteremia SNOMED Code(s): 1434016 Code(s): R78.81 - BACTEREMIA Status: Acute Current Visit: Yes (3) Hyperglycemia SNOMED Code(s): 36465799 Code(s): R73.9 - HYPERGLYCEMIA, UNSPECIFIED Status: Acute Current Visit: Yes (4) Nausea & vomiting SNOMED Code(s): 53832924 Code(s): R11.2 - NAUSEA WITH VOMITING, UNSPECIFIED Status: Acute Current Visit: Yes Qualifiers: Vomiting type: unspecified Vomiting Intractability: non-intractable Qualified Code(s): R11.2 - Nausea with vomiting, unspecified (5) Diabetes type 1, uncontrolled SNOMED Code(s): 98789251, 671127295 Code(s): E10.65 - TYPE 1 DIABETES MELLITUS WITH HYPERGLYCEMIA Status: Chronic Priority: Medium Current Visit: Yes Qualifiers: Glycemic state: with hyperglycemia Qualified Code(s): E10.65 - Type 1 diabetes mellitus with hyperglycemia - Problem List Review Problem List Initiated/Reviewed/Updated: Yes - My Orders Last 24 Hours: My Active Orders 01/28/20 16:00 HYDROmorphone [Dilaudid] 0.5 mg IVPUSH Q6H PRN 01/30/20 05:11 CBC WITH AUTO DIFF [HEME] AM COMPREHENSIVE METABOLIC PN,CMP [CHEM] AM - Plan Plan:: Assessment: 1. Acute on chronic abdominal pain w/ n/v in setting of Gastroparesis (uncontrolled Type I DM) 2. +E.coli bacteremia 3. Hypernatremia:resolved 4. type I DM 5. Hx of opioid abuse 6. Hypomagnesemia 7. hypokalemia Plan 1. Bacteremia: E. Coli : continue Rocephin ; repeat culture negative this AM Afebrile 2. Gastroparesis/abdominal pain : trialed Compazine alternating w. Reglan scheduled . Repeat US unremarkable w. moderate resolution of bladder distension and hydronephrosis Discontinue Dilaudid and increase Suboxone dosing per home regimen Clements catheter removed;will do a rescan of bladder and discuss case with Dr Rodriguez of Urology regarding need to replace Clements. tolerating more PO today (Ensure)
[2020-01-29] MEDS: Famotidine 20 MG/2 ML SDV IV SCH ×2 (09:38→21:50)
[2020-01-29] MEDS: Bisacodyl 10 MG Supp RECTAL SCH (10:06)
[2020-01-29] MEDS: SUBOXONE 8MG/2MG PO PRN (14:38)
[2020-01-29] MEDS ORDERED: LORazepam 0.5 MG Tab PO ONE (15:54)
[2020-01-29] MEDS: cefTRIAXone 1 GM in Premix Bag 1 BAG IV SCH (16:06)
[2020-01-29] MEDS: Prochlorperazine 10 MG Tab PO SCH (18:28)
[2020-01-29] MEDS: Insulin Glargine,Human Rec. Analog 100 Units/ML 3 ML Pen SUBCUT SCH (21:48)
[2020-01-30] MEDS: Prochlorperazine 10 MG Tab PO SCH ×4 (01:32→18:52)
[2020-01-30] MEDS: Sodium Chloride 0.9% 1,000 ML IV SCH ×2 (03:33→14:55)
[2020-01-30] MEDS: Metoclopramide 10 MG/2 ML SDV IVPUSH SCH ×4 (03:39→23:08)
[2020-01-30] MEDS: SUBOXONE 8MG/2MG PO PRN ×2 (03:44→09:55)
[2020-01-30] MEDS: Insulin Aspart 100 Units/ML 3 ML Pen SUBCUT SCH ×4 (06:26→23:07)
[2020-01-30 06:46] LABS: BLOOD UREA NITROGEN,BUN 11 mg/dL (7.0-18.0); CARBON DIOXIDE,CO2 20.6 mmol/L (21.0-32.0); CHLORIDE,CL 107 mmol/L (98-107); GLUCOSE RANDOM 254 mg/dL (74-106); POTASSIUM,K 3.3 mmol/L (3.5-5.1); SODIUM,NA 141 mmol/L (136-148)
--- NOTE | 2020-01-30 09:05 | PCM.PN ---
- General Info Date of Service: 01/30/20 - Review of Systems Systems Review Comment:: abdominal pain improving - Patient Data Vitals - Most Recent: Last Vital Signs Temp 36.6 C 01/30/20 03:00 Pulse 80 01/30/20 03:00 Resp 18 01/30/20 03:00 BP 127/86 01/30/20 03:00 Pulse Ox 99 01/30/20 03:00 Weight - Most Recent: 51.256 kg I&O - Last 24 Hours: Intake & Output 01/29/20 01/30/20 01/30/20 22:59 06:59 14:59 Intake Total 2016 5113 Output Total 1500 3180 Balance 517 1933 Lab Results Last 24 Hours: Laboratory Results - last 24 hr 01/29/20 01/29/20 01/29/20 Range/Units 12:14 17:33 23:51 WBC (4.0-11.0) K/uL RBC (4.50-5.90) M/uL Hgb (13.0-17.0) g/dL Hct (38.0-50.0) % MCV (80.0-98.0) fL MCH (27.0-32.0) pg MCHC (31.0-37.0) g/dL RDW Std Deviation (28.0-62.0) fl RDW Coeff of Erika (11.0-15.0) % Plt Count (150-400) K/uL MPV (7.40-12.00) fL Neut % (Auto) (48.0-80.0) % Lymph % (Auto) (16.0-40.0) % [place] % (Auto) (0.0-15.0) % Eos % (Auto) (0.0-7.0) % Baso % (Auto) (0.0-1.5) % Neut # (Auto) (1.4-5.7) K/uL Lymph # (Auto) (0.6-2.4) K/uL [place] # (Auto) (0.0-0.8) K/uL Eos # (Auto) (0.0-0.7) K/uL Baso # (Auto) (0.0-0.1) K/uL Nucleated RBC % /100WBC Nucleated RBCs # K/uL Sodium (136-148) mmol/L Potassium (3.5-5.1) mmol/L Chloride (98-107) mmol/L Carbon Dioxide (21.0-32.0) mmol/L BUN (7.0-18.0) mg/dL Creatinine (0.8-1.3) mg/dL Est Cr Clr Drug Dosing mL/min Estimated GFR (MDRD) ml/min Glucose (74-106) mg/dL POC Glucose 312 H 321 H 271 H (60-110) mg/dL Calcium (8.5-10.1) mg/dL Total Bilirubin (0.2-1.0) mg/dL AST (15-37) IU/L ALT (14-63) IU/L Alkaline Phosphatase (46-116) U/L Total Protein (6.4-8.2) g/dL Albumin (3.4-5.0) g/dL Globulin (2.6-4.0) g/dL Albumin/Globulin Ratio (0.9-1.6) 01/30/20 01/30/20 01/30/20 Range/Units 05:19 05:19 06:19 WBC 5.80 (4.0-11.0) K/uL RBC 3.79 L (4.50-5.90) M/uL Hgb 9.9 L (13.0-17.0) g/dL Hct 31.1 L (38.0-50.0) % MCV 82.1 (80.0-98.0) fL MCH 26.1 L (27.0-32.0) pg MCHC 31.8 (31.0-37.0) g/dL RDW Std Deviation 41.9 (28.0-62.0) fl RDW Coeff of Erika 14 (11.0-15.0) % Plt Count 266 (150-400) K/uL MPV 9.50 (7.40-12.00) fL Neut % (Auto) 52.0 (48.0-80.0) % Lymph % (Auto) 40.7 H (16.0-40.0) % [place] % (Auto) 5.9 (0.0-15.0) % Eos % (Auto) 1.2 (0.0-7.0) % Baso % (Auto) 0.2 (0.0-1.5) % Neut # (Auto) 3.0 (1.4-5.7) K/uL Lymph # (Auto) 2.4 (0.6-2.4) K/uL [place] # (Auto) 0.3 (0.0-0.8) K/uL Eos # (Auto) 0.1 (0.0-0.7) K/uL Baso # (Auto) 0.0 (0.0-0.1) K/uL Nucleated RBC % 0.0 /100WBC Nucleated RBCs # 0 K/uL Sodium 141 (136-148) mmol/L Potassium 3.3 L (3.5-5.1) mmol/L Chloride 107 (98-107) mmol/L Carbon Dioxide 20.6 L (21.0-32.0) mmol/L BUN 11 (7.0-18.0) mg/dL Creatinine 0.8 (0.8-1.3) mg/dL Est Cr Clr Drug Dosing 105.00 mL/min Estimated GFR (MDRD) > 60.0 ml/min Glucose 254 H (74-106) mg/dL POC Glucose 218 H (60-110) mg/dL Calcium 8.2 L (8.5-10.1) mg/dL Total Bilirubin 0.3 (0.2-1.0) mg/dL AST 9 L (15-37) IU/L ALT 11 L (14-63) IU/L Alkaline Phosphatase 69 (46-116) U/L Total Protein 6.3 L (6.4-8.2) g/dL Albumin 2.0 L (3.4-5.0) g/dL Globulin 4.3 H (2.6-4.0) g/dL Albumin/Globulin Ratio 0.5 L (0.9-1.6) Med Orders - Current: Current Medications Bisacodyl (Dulcolax) 10 mg RECTAL DAILY [facility] Last Admin: 01/29/20 10:06 Dose: 10 mg Documented by: Famotidine (Pepcid) 40 mg IV BID [facility] Last Admin: 01/29/20 21:50 Dose: 40 mg Documented by: Glucagon (Glucagen) 1 mg IM ASDIRECTED PRN PRN Reason: Hypoglycemia Ceftriaxone Sodium/Dextrose 1 (gm/ Premix) 50 mls @ 100 mls/hr IV Q24H [facility] Last Admin: 01/29/20 16:06 Dose: 100 mls/hr Documented by: Dextrose/Water (Dextrose 5% In Water) 1,000 mls @ 100 mls/hr IV ASDIRECTED [facility] Last Admin: 01/27/20 08:06 Dose: 100 mls/hr Documented by: Dextrose/Sodium Chloride (Dextrose 5%-Normal Saline) 1,000 mls @ 100 mls/hr IV 01/28/20@1700 [facility] Last Admin: 01/28/20 17:51 Dose: 100 mls/hr Documented by: Sodium Chloride (Normal Saline) 1,000 mls @ 100 mls/hr IV ASDIRECTED [facility] Last Admin: 01/30/20 03:33 Dose: 100 mls/hr Documented by: Insulin Aspart (Novolog) 0 unit SUBCUT Q6H [facility]; Protocol Last Admin: 01/30/20 06:26 Dose: 4 units Documented by: Insulin Glargine (Lantus Solostar) 20 units SUBCUT BEDTIME [facility] Last Admin: 01/29/20 21:48 Dose: 20 units Documented by: Metoclopramide HCl (Reglan) 10 mg IVPUSH Q6H [facility] Last Admin: 01/30/20 03:39 Dose: 10 mg Documented by: Patient Own Medication (Ptom) 0.25 - 1 each PO TID PRN PRN Reason: OPIOID CRAVING Last Admin: 01/30/20 03:44 Dose: 0.25 each Documented by: Prochlorperazine Maleate (Compazine) 5 mg PO Q6H [facility] Last Admin: 01/30/20 06:29 Dose: 5 mg Documented by: Sodium Chloride (Saline Flush) 2.5 ml FLUSH ASDIRECTED PRN PRN Reason: Keep Vein Open Last Admin: 01/23/20 04:07 Dose: 2.5 ml Documented by: Sodium Chloride (Saline Flush) 10 ml FLUSH ASDIRECTED PRN PRN Reason: Keep Vein Open Last Admin: 01/23/20 04:07 Dose: 10 ml Documented by: Discontinued Medications Bisacodyl (Dulcolax) 10 mg RECTAL ONETIME ONE Stop: 01/26/20 14:11 Last Admin: 01/26/20 16:16 Dose: 10 mg Documented by: Cetirizine HCl (Zyrtec) 10 mg PO DAILY [facility] Cetirizine HCl (Zyrtec) 10 mg PO ONETIME ONE Stop: 01/25/20 17:26 Last Admin: 01/25/20 17:58 Dose: Not Given Documented by: Cetirizine HCl (Zyrtec) 10 mg PO ONETIME ONE Stop: 01/25/20 21:46 Last Admin: 01/25/20 21:55 Dose: 10 mg Documented by: Dextrose/Water (Dextrose 50% In Water) 50 ml IV ASDIRECTED PRN PRN Reason: Hypoglycemia Dextrose/Water (Dextrose 50% In Water) 50 ml IV ASDIRECTED PRN PRN Reason: Hypoglycemia Dextrose/Water (Dextrose 50% In Water) 50 ml IV ASDIRECTED PRN PRN Reason: Hypoglycemia Dextrose/Water (Dextrose 50% In Water) 25 ml IV ASDIRECTED PRN PRN Reason: Hypoglycemia Dextrose/Water (Dextrose 50% In Water) 50 ml IV ASDIRECTED PRN PRN Reason: Hypoglycemia Last Admin: 01/23/20 21:17 Dose: 50 ml Documented by: Diphenhydramine HCl (Benadryl) 50 mg IVPUSH ONETIME ONE Stop: 01/23/20 04:27 Last Admin: 01/23/20 04:37 Dose: 50 mg Documented by: Diphenhydramine HCl (Benadryl) 25 mg IVPUSH ONETIME ONE Stop: 01/24/20 09:02 Last Admin: 01/24/20 09:34 Dose: 25 mg Documented by: Diphenhydramine HCl (Benadryl) 25 mg IVPUSH ONETIME ONE Stop: 01/24/20 21:38 Last Admin: 01/24/20 21:47 Dose: 25 mg Documented by: Diphenhydramine HCl (Benadryl) 25 mg IVPUSH ONETIME ONE Stop: 01/25/20 07:45 Last Admin: 01/25/20 08:15 Dose: 25 mg Documented by: Famotidine (Pepcid) 20 mg PO ONETIME ONE Stop: 01/25/20 08:11 Last Admin: 01/25/20 08:23 Dose: 20 mg Documented by: Glucagon (Glucagen) 1 mg IM ASDIRECTED PRN PRN Reason: Hypoglycemia Glucagon (Glucagen) 1 mg IM ASDIRECTED PRN PRN Reason: Hypoglycemia Glucagon (Glucagen) 1 mg IM ASDIRECTED PRN PRN Reason: Hypoglycemia Haloperidol Lactate (Haldol) 3 mg IM ONETIME ONE Stop: 01/23/20 03:56 Last Admin: 01/23/20 04:03 Dose: 3 mg Documented by: Haloperidol Lactate (Haldol) 1 mg IM ONETIME ONE Stop: 01/26/20 09:01 Last Admin: 01/26/20 09:39 Dose: 1 mg Documented by: Hydromorphone HCl (Dilaudid) 1 mg IVPUSH ONETIME ONE Stop: 01/23/20 04:27 Last Admin: 01/23/20 04:37 Dose: 1 mg Documented by: Hydromorphone HCl (Dilaudid) 0.5 mg IVPUSH Q6H [facility] Last Admin: 01/27/20 13:08 Dose: Not Given Documented by: Hydromorphone HCl (Dilaudid) 0.5 mg IVPUSH Q6H PRN PRN Reason: Pain Last Admin: 01/28/20 10:08 Dose: 0.5 mg Documented by: Hydromorphone HCl (Dilaudid) 0.5 mg IVPUSH Q6H PRN PRN Reason: Pain Hydroxyzine HCl (Atarax) 25 mg PO ONETIME ONE Stop: 01/26/20 17:34 Last Admin: 01/26/20 17:45 Dose: 25 mg Documented by: Lactated Ringer's (Ringers, Lactated) 1,000 mls @ 999 mls/hr IV .BOLUS ONE Stop: 01/23/20 04:39 Last Admin: 01/23/20 04:04 Dose: 999 mls/hr Documented by: Lactated Ringer's (Ringers, Lactated) 1,000 mls @ 999 mls/hr IV .BOLUS ONE Stop: 01/23/20 05:26 Last Admin: 01/23/20 04:39 Dose: 999 mls/hr Documented by: Pantoprazole Sodium 40 mg/ (Sodium Chloride) 20 mls @ 420 mls/hr IVPUSH ONETIME ONE Stop: 01/23/20 04:29 Last Admin: 01/23/20 04:36 Dose: 420 mls/hr Documented by: Lactated Ringer's (Ringers, Lactated) 1,000 mls @ 999 mls/hr IV .BOLUS ONE Stop: 01/23/20 06:55 Last Admin: 01/23/20 06:02 Dose: 999 mls/hr Documented by: Dextrose/Sodium Chloride (Dextrose 5%-Normal Saline) 1,000 mls @ 75 mls/hr IV ASDIRECTED [facility] Last Admin: 01/23/20 09:36 Dose: 75 mls/hr Documented by: Potassium Chloride 40 meq/ (Premix) 100 mls @ 25 mls/hr IV ONETIME ONE Stop: 01/23/20 14:21 Last Admin: 01/23/20 10:49 Dose: 25 mls/hr Documented by: Potassium Chloride/Sodium Chloride (Normal Saline With 40 Meq Kcl) 1,000 mls @ 150 mls/hr IV ASDIRECTED [facility] Stop: 01/23/20 21:24 Last Admin: 01/23/20 17:26 Dose: 150 mls/hr Documented by: Ceftriaxone Sodium 1 gm/ (Sodium Chloride) 50 mls @ 100 mls/hr IV Q24H [facility] Last Admin: 01/23/20 17:50 Dose: Not Given Documented by: Ceftriaxone Sodium/Dextrose 1 (gm/ Premix) 50 mls @ 100 mls/hr IV Q24H [facility] Meropenem/Sodium Chloride 1 gm (/ Premix) 50 mls @ 100 mls/hr IV Q8H [facility] Last Admin: 01/25/20 08:25 Dose: 100 mls/hr Documented by: Dextrose/Sodium Chloride (Dextrose 5%-Normal Saline) 1,000 mls @ 100 mls/hr IV ASDIRECTED [facility] Piperacillin Sod/Tazobactam (Sod 3.375 gm/ Sodium Chloride) 50 mls @ 100 mls/hr IV Q6H [facility] Last Admin: 01/23/20 22:24 Dose: 100 mls/hr Documented by: Dextrose/Sodium Chloride (Dextrose 5%-Normal Saline) 1,000 mls @ 100 mls/hr IV ASDIRECTED [facility] Last Admin: 01/24/20 13:24 Dose: 100 mls/hr Documented by: Lactated Ringer's (Ringers, Lactated) 1,000 mls @ 500 mls/hr IV .BOLUS ONE Stop: 01/24/20 01:30 Last Admin: 01/23/20 23:45 Dose: 500 mls/hr Documented by: Lactated Ringer's (Ringers, Lactated) 1,000 mls @ 1,000 mls/hr IV .BOLUS ONE Stop: 01/24/20 10:21 Last Admin: 01/24/20 09:38 Dose: 1,000 mls/hr Documented by: Lactated Ringer's (Ringers, Lactated) 1,000 mls @ 100 mls/hr IV ASDIRECTED [facility] Last Admin: 01/25/20 10:24 Dose: 100 mls/hr Documented by: Lactated Ringer's (Ringers, Lactated) 1,000 mls @ 100 mls/hr IV ASDIRECTED [facility] Last Admin: 01/25/20 20:30 Dose: 100 mls/hr Documented by: Dextrose/Water (Dextrose 5% In Water) 1,000 mls @ 100 mls/hr IV Q10H [facility] Last Admin: 01/26/20 22:13 Dose: 100 mls/hr Documented by: Lactated Ringer's (Ringers, Lactated) 1,000 mls @ [facility] Admin: 01/27/20 03:43 Dose: 125 mls/hr Documented by: Potassium Chloride/Dextrose/Sod Cl (D5 Ns With 20 Meq Kcl) 1,000 mls @ 100 mls/hr IV ASDIRECTED [facility] Last Admin: 01/27/20 12:10 Dose: 100 mls/hr Documented by: Dextrose/Sodium Chloride (Dextrose 5%-Normal Saline) 1,000 mls @ 100 [facility] Last Admin: 01/27/20 22:48 Dose: 100 mls/hr Documented by: Potassium Chloride 20 meq/ (Premix) 50 mls @ 25 mls/hr IV ONETIME ONE Stop: 01/28/20 10:26 Last Admin: 01/28/20 09:40 Dose: Not Given Documented by: Potassium Chloride/Sodium Chloride (Normal Saline With 40 Meq Kcl) 1,000 mls @ 125 mls/hr IV 01/28/20@0900 [facility] Stop: 01/28/20 16:59 Last Admin: 01/28/20 09:37 Dose: 125 mls/hr Documented by: Magnesium Sulfate (Magnesium Sulfate In Water Premix) 2 gm in 50 mls @ 50 mls/hr IV ONETIME ONE Stop: 01/28/20 12:24 Last Admin: 01/28/20 12:11 Dose: 50 mls/hr Documented by: Insulin Aspart (Novolog) 0 unit SUBCUT Q6H [facility]; Protocol Last Admin: 01/25/20 15:18 Dose: 6 unit Documented by: Insulin Glargine (Lantus Solostar) 20 units SUBCUT BEDTIME [facility] Insulin Glargine (Lantus Solostar) 10 units SUBCUT ONETIME ONE Stop: 01/23/20 21:01 Last Admin: 01/23/20 22:23 Dose: 10 units Documented by: Insulin Human Regular (Novolin R) 8 unit IVPUSH ONETIME ONE; Protocol Stop: 01/23/20 04:55 Last Admin: 01/23/20 05:14 Dose: 8 unit Documented by: Insulin Human Regular (Novolin R) 5 unit IVPUSH ONETIME ONE; Protocol Stop: 01/23/20 05:37 Last Admin: 01/23/20 05:44 Dose: 5 unit Documented by: Lorazepam (Ativan) 0.5 mg PO ONETIME ONE Stop: 01/29/20 15:55 Last Admin: 01/29/20 16:00 Dose: 0.5 mg Documented by: Metoclopramide HCl (Reglan) 10 mg IVPUSH ONETIME ONE Stop: 01/23/20 04:27 Last Admin: 01/23/20 04:39 Dose: 10 mg Documented by: Metoclopramide HCl (Reglan) 10 mg IVPUSH Q4H PRN PRN Reason: Nausea/Vomiting Last Admin: 01/25/20 12:30 Dose: 10 mg Documented by: Morphine Sulfate (Morphine) 2 mg IVPUSH Q4H PRN PRN Reason: Pain Last Admin: 01/25/20 17:37 Dose: 2 mg Documented by: Morphine Sulfate (Morphine) 2 mg IVPUSH Q6H PRN PRN Reason: Pain Last Admin: 01/26/20 15:29 Dose: 2 mg Documented by: Morphine Sulfate (Morphine) 1 mg IVPUSH Q6H PRN PRN Reason: Pain Ondansetron HCl (Zofran) 4 mg IVPUSH Q4H PRN PRN Reason: Nausea Last Admin: 01/25/20 03:55 Dose: 4 mg Documented by: Suboxone 8/2 Sl (Tablets) 0 each PO .ASNEEDED PRN PRN Reason: OPIOID CRAVING Last Admin: 01/29/20 09:49 Dose: 0.25 each Documented by: Potassium Chloride (Klor-Con M20) 40 meq PO ONETIME ONE Stop: 01/27/20 07:43 Last Admin: 01/27/20 12:02 Dose: Not Given Documented by: Prochlorperazine Edisylate (Compazine) 5 mg IVPUSH Q6H [facility] Last Admin: 01/29/20 12:16 Dose: 5 mg Documented by: - Exam General: Alert, Oriented Neck: Supple Lungs: Clear to Auscultation, Normal Respiratory Effort Cardiovascular: Regular Rate, Regular Rhythm GI/Abdominal Exam: Normal Bowel Sounds, Soft, Non-Tender, No Distention Extremities: Non-Tender, No Pedal Edema Skin: Warm, Dry, Intact Neurological: No New Focal Deficit Sepsis Event Note - Evaluation Sepsis Screening Result: No Definite Risk - Focused Exam Vital Signs: Vital Signs Temp Pulse Resp BP Pulse Ox 01/30/20 03:00 36.6 C 80 18 127/86 99 01/29/20 23:55 36.4 C 80 18 129/86 98 - Problem List Review Problem List Initiated/Reviewed/Updated: Yes - My Orders Last 24 Hours: My Active Orders 01/30/20 Breakfast Advance Diet Instructions [DIET] Regular Diet [DIET] 01/31/20 05:11 BASIC METABOLIC PANEL,BMP [CHEM] AM CBC WITH AUTO DIFF [HEME] AM - Plan Plan:: 24 yo male admitted with E.coli UTI, bacteremia, gastroparesis, and hydronephrosis from neurogenic bladder E.coli bacteremia and UTI: continue rocephin Gastroparesis: continue suboxone, advance diet as tolerated Hydronephrosis with urinary retention: edge replaced yesterday
[2020-01-30] MEDS ORDERED: Potassium Chloride 20 MEQ Tab.ER PO ONE (09:20)
[2020-01-30] MEDS: Famotidine 20 MG/2 ML SDV IV SCH ×2 (09:28→21:01)
[2020-01-30] MEDS: Bisacodyl 10 MG Supp RECTAL SCH ×2 (09:30→09:34)
[2020-01-30] MEDS: cefTRIAXone 1 GM in Premix Bag 1 BAG IV SCH (16:29)
[2020-01-30] MEDS: Insulin Glargine,Human Rec. Analog 100 Units/ML 3 ML Pen SUBCUT SCH (20:59)
[2020-01-31] MEDS: Prochlorperazine 10 MG Tab PO SCH ×2 (00:08→06:11)
[2020-01-31] MEDS: SUBOXONE 8MG/2MG PO PRN (00:09)
[2020-01-31] MEDS: Sodium Chloride 0.9% 1,000 ML IV SCH (01:28)
[2020-01-31] MEDS: Insulin Aspart 100 Units/ML 3 ML Pen SUBCUT SCH ×2 (06:08→12:31)
[2020-01-31] MEDS: Metoclopramide 10 MG/2 ML SDV IVPUSH SCH ×2 (06:09→11:13)
[2020-01-31 06:52] LABS: BLOOD UREA NITROGEN,BUN 5 mg/dL (7.0-18.0); CARBON DIOXIDE,CO2 26.6 mmol/L (21.0-32.0); CHLORIDE,CL 106 mmol/L (98-107); GLUCOSE RANDOM 124 mg/dL (74-106); POTASSIUM,K 3.3 mmol/L (3.5-5.1); SODIUM,NA 144 mmol/L (136-148)
[2020-01-31 08:46] VITALS: BP 119/75; PULSE 82
[2020-01-31] MEDS: Famotidine 20 MG/2 ML SDV IV SCH (09:14)
[2020-01-31] MEDS: Bisacodyl 10 MG Supp RECTAL SCH (09:15)
--- NOTE | 2020-01-31 10:43 | PCM.DCSUM1 ---
Discharge Summary - Hospital Course Brief History: 24 yo male with pmh of DM, gastroparesis, neurogenic bladder, opiod abuse, who presents with one day history of nasuea, vomiting and abdominal pain. PAtient reports he has been taking his insulin as directed. He denies any fevers, or shortness of breath. In the ED he was noted to have a blood glucose of 788. He had no anion gap. Clements was placed in the ED. CT scan of abdomen showed distended bladder, left hydronephrosis and stranding edema. Diagnosis: Stroke: No - Discharge Data Discharge Date: 01/31/20 Discharge Disposition: Home, Self-Care 01 Condition: Good - Referral to Home Health Primary Care Physician: Lynsey Palm NP - Patient Summary/Data Consults: Consultations 01/23/20 15:03 Consult to Physician [CONS] Routine Hospital Course: Was admitted for E.coli bacteremia and uremia. Has chronic urinary retention therefore will go home with Clements catheter in place. To follow up with Dr. Rodriguez. Currently treated with Rochephin, will be discharged with Augmentin 875mg TID, for 5 more days. Furthermore, patient is to optimize glycemia control to help with gastroparesis. Pt should follow up with PCP within 1 week. - Patient Instructions Diet: Diabetic Diet Activity: As Tolerated Showering/Bathing: May Shower Notify Provider of: Fever, Increased Pain, Swelling and Redness, Drainage, Nausea and/or Vomiting Other/Special Instructions: please return to hospital if you develop pain with urination, blood in urine, fever, chills, fatigue. - Discharge Plan *PRESCRIPTION DRUG MONITORING PROGRAM REVIEWED*: Not Applicable *COPY OF PRESCRIPTION DRUG MONITORING REPORT IN PATIENT HANY: Not Applicable Home Medications: Home Meds Insulin Aspart [NovoLOG] 5 units SUBCUT TIDAC 07/23/18 [History] Buprenorphine HCl/Naloxone HCl [Zubsolv 5.7-1.4 mg Tablet Sl] 3 tab SL DAILY 12/18/18 [History] Insulin Glarg,Human.Rec.Analog [Lantus] 40 unit SUBCUT DAILY 12/18/18 [History] Oxygen Therapy Mode: Room Air Patient Handouts: Hyperglycemia, [id number], Type 1 Diabetes Mellitus, Self Care, Adult, Abdominal Pain, Adult, [id number], Gastroparesis Referrals: Lynsey Palm NP [Primary Care Provider] - 02/01/20 3:45 pm Zahra Rodriguez MD [Physician] - 02/02/20 1:30 pm - Discharge Summary/Plan Comment DC Time >30 min.: No Discharge Summary/Plan Comment: Please follow up with Dr. Rodriguez closely and PCP within 1 week - Patient Data Vitals - Most Recent: Last Vital Signs Temp 97.7 F 01/31/20 08:44 Pulse 82 01/31/20 08:44 Resp 16 01/31/20 08:44 BP 119/75 01/31/20 08:44 Pulse Ox 99 01/31/20 08:44 Weight - Most Recent: 113 lb I&O - Last 24 hours: Intake & Output 01/30/20 01/31/20 01/31/20 22:59 06:59 14:59 Intake Total 1656 2537 Output Total 2500 3500 Balance -844 963 Lab Results - Last 24 hrs: Laboratory Results - last 24 hr 01/30/20 01/30/20 01/30/20 Range/Units 12:26 16:55 17:33 WBC (4.0-11.0) K/uL RBC (4.50-5.90) M/uL Hgb (13.0-17.0) g/dL Hct (38.0-50.0) % MCV (80.0-98.0) fL MCH (27.0-32.0) pg MCHC (31.0-37.0) g/dL RDW Std Deviation (28.0-62.0) fl RDW Coeff of Erika (11.0-15.0) % Plt Count (150-400) K/uL MPV (7.40-12.00) fL Neut % (Auto) (48.0-80.0) % Lymph % (Auto) (16.0-40.0) % Charles % (Auto) (0.0-15.0) % Eos % (Auto) (0.0-7.0) % Baso % (Auto) (0.0-1.5) % Neut # (Auto) (1.4-5.7) K/uL Lymph # (Auto) (0.6-2.4) K/uL Charles # (Auto) (0.0-0.8) K/uL Eos # (Auto) (0.0-0.7) K/uL Baso # (Auto) (0.0-0.1) K/uL Nucleated RBC % /100WBC Nucleated RBCs # K/uL Sodium (136-148) mmol/L Potassium (3.5-5.1) mmol/L Chloride (98-107) mmol/L Carbon Dioxide (21.0-32.0) mmol/L BUN (7.0-18.0) mg/dL Creatinine (0.8-1.3) mg/dL Est Cr Clr Drug Dosing mL/min Estimated GFR (MDRD) ml/min Glucose (74-106) mg/dL POC Glucose 246 H 296 H (60-110) mg/dL Calcium (8.5-10.1) mg/dL Troponin I < 0.050 (0.000-0.056) ng/mL 01/30/20 01/30/20 01/31/20 Range/Units 20:58 23:06 05:40 WBC 4.91 (4.0-11.0) K/uL RBC 3.88 L (4.50-5.90) M/uL Hgb 10.2 L (13.0-17.0) g/dL Hct 31.0 L (38.0-50.0) % MCV 79.9 L (80.0-98.0) fL MCH 26.3 L (27.0-32.0) pg MCHC 32.9 (31.0-37.0) g/dL RDW Std Deviation 39.8 (28.0-62.0) fl RDW Coeff of Erika 14 (11.0-15.0) % Plt Count 291 (150-400) K/uL MPV 9.20 (7.40-12.00) fL Neut % (Auto) 46.9 L (48.0-80.0) % Lymph % (Auto) 46.4 H (16.0-40.0) % Charles % (Auto) 4.7 (0.0-15.0) % Eos % (Auto) 1.8 (0.0-7.0) % Baso % (Auto) 0.2 (0.0-1.5) % Neut # (Auto) 2.3 (1.4-5.7) K/uL Lymph # (Auto) 2.3 (0.6-2.4) K/uL Charles # (Auto) 0.2 (0.0-0.8) K/uL Eos # (Auto) 0.1 (0.0-0.7) K/uL Baso # (Auto) 0.0 (0.0-0.1) K/uL Nucleated RBC % 0.0 /100WBC Nucleated RBCs # 0 K/uL Sodium (136-148) mmol/L Potassium (3.5-5.1) mmol/L Chloride (98-107) mmol/L Carbon Dioxide (21.0-32.0) mmol/L BUN (7.0-18.0) mg/dL Creatinine (0.8-1.3) mg/dL Est Cr Clr Drug Dosing mL/min Estimated GFR (MDRD) ml/min Glucose (74-106) mg/dL POC Glucose 216 H 188 H (60-110) mg/dL Calcium (8.5-10.1) mg/dL Troponin I (0.000-0.056) ng/mL 01/31/20 01/31/20 Range/Units 05:40 06:08 WBC (4.0-11.0) K/uL RBC (4.50-5.90) M/uL Hgb (13.0-17.0) g/dL Hct (38.0-50.0) % MCV (80.0-98.0) fL MCH (27.0-32.0) pg MCHC (31.0-37.0) g/dL RDW Std Deviation (28.0-62.0) fl RDW Coeff of Erika (11.0-15.0) % Plt Count (150-400) K/uL MPV (7.40-12.00) fL Neut % (Auto) (48.0-80.0) % Lymph % (Auto) (16.0-40.0) % Charles % (Auto) (0.0-15.0) % Eos % (Auto) (0.0-7.0) % Baso % (Auto) (0.0-1.5) % Neut # (Auto) (1.4-5.7) K/uL Lymph # (Auto) (0.6-2.4) K/uL Charles # (Auto) (0.0-0.8) K/uL Eos # (Auto) (0.0-0.7) K/uL Baso # (Auto) (0.0-0.1) K/uL Nucleated RBC % /100WBC Nucleated RBCs # K/uL Sodium 144 (136-148) mmol/L Potassium 3.3 L (3.5-5.1) mmol/L Chloride 106 (98-107) mmol/L Carbon Dioxide 26.6 (21.0-32.0) mmol/L BUN 5 L (7.0-18.0) mg/dL Creatinine 0.8 (0.8-1.3) mg/dL Est Cr Clr Drug Dosing 105.00 mL/min Estimated GFR (MDRD) > 60.0 ml/min Glucose 124 H (74-106) mg/dL POC Glucose 139 H (60-110) mg/dL Calcium 8.2 L (8.5-10.1) mg/dL Troponin I (0.000-0.056) ng/mL Med Orders - Current: Current Medications Bisacodyl (Dulcolax) 10 mg RECTAL DAILY [facility] Last Admin: 01/31/20 09:15 Dose: Not Given Documented by: Famotidine (Pepcid) 40 mg IV BID [facility] Last Admin: 01/31/20 09:14 Dose: 40 mg Documented by: Glucagon (Glucagen) 1 mg IM ASDIRECTED PRN PRN Reason: Hypoglycemia Ceftriaxone Sodium/Dextrose 1 (gm/ Premix) 50 mls @ 100 mls/hr IV Q24H [facility] Last Admin: 01/30/20 16:29 Dose: 100 mls/hr Documented by: Dextrose/Water (Dextrose 5% In Water) 1,000 mls @ 100 mls/hr IV ASDIRECTED [facility] Last Admin: 01/27/20 08:06 Dose: 100 mls/hr Documented by: Dextrose/Sodium Chloride (Dextrose 5%-Normal Saline) 1,000 mls @ 100 mls/hr IV 01/28/20@1700 [facility] Last Admin: 01/28/20 17:51 Dose: 100 mls/hr Documented by: Sodium Chloride (Normal Saline) 1,000 mls @ 100 mls/hr IV ASDIRECTED [facility] Last Admin: 01/31/20 01:28 Dose: 100 mls/hr Documented by: Insulin Aspart (Novolog) 0 unit SUBCUT Q6H [facility]; Protocol Last Admin: 01/31/20 06:08 Dose: Not Given Documented by: Insulin Glargine (Lantus Solostar) 20 units SUBCUT BEDTIME [facility] Last Admin: 01/30/20 20:59 Dose: 20 units Documented by: Metoclopramide HCl (Reglan) 10 mg IVPUSH Q6H [facility] Last Admin: 01/31/20 06:09 Dose: 10 mg Documented by: Suboxone 8mg/2mg 0.25 - 1 each PO TID PRN PRN Reason: OPIOID CRAVING Last Admin: 01/31/20 00:09 Dose: 0.25 each Documented by: Prochlorperazine Maleate (Compazine) 5 mg PO Q6H [facility] Last Admin: 01/31/20 06:11 Dose: 5 mg Documented by: Sodium Chloride (Saline Flush) 2.5 ml FLUSH ASDIRECTED PRN PRN Reason: Keep Vein Open Last Admin: 01/23/20 04:07 Dose: 2.5 ml Documented by: Sodium Chloride (Saline Flush) 10 ml FLUSH ASDIRECTED PRN PRN Reason: Keep Vein Open Last Admin: 01/23/20 04:07 Dose: 10 ml Documented by: Discontinued Medications Bisacodyl (Dulcolax) 10 mg RECTAL ONETIME ONE Stop: 01/26/20 14:11 Last Admin: 01/26/20 16:16 Dose: 10 mg Documented by: Cetirizine HCl (Zyrtec) 10 mg PO DAILY [facility] Cetirizine HCl (Zyrtec) 10 mg PO ONETIME ONE Stop: 01/25/20 17:26 Last Admin: 01/25/20 17:58 Dose: Not Given Documented by: Cetirizine HCl (Zyrtec) 10 mg PO ONETIME ONE Stop: 01/25/20 21:46 Last Admin: 01/25/20 21:55 Dose: 10 mg Documented by: Dextrose/Water (Dextrose 50% In Water) 50 ml IV ASDIRECTED PRN PRN Reason: Hypoglycemia Dextrose/Water (Dextrose 50% In Water) 50 ml IV ASDIRECTED PRN PRN Reason: Hypoglycemia Dextrose/Water (Dextrose 50% In Water) 50 ml IV ASDIRECTED PRN PRN Reason: Hypoglycemia Dextrose/Water (Dextrose 50% In Water) 25 ml IV ASDIRECTED PRN PRN Reason: Hypoglycemia Dextrose/Water (Dextrose 50% In Water) 50 ml IV ASDIRECTED PRN PRN Reason: Hypoglycemia Last Admin: 01/23/20 21:17 Dose: 50 ml Documented by: Diphenhydramine HCl (Benadryl) 50 mg IVPUSH ONETIME ONE Stop: 01/23/20 04:27 Last Admin: 01/23/20 04:37 Dose: 50 mg Documented by: Diphenhydramine HCl (Benadryl) 25 mg IVPUSH ONETIME ONE Stop: 01/24/20 09:02 Last Admin: 01/24/20 09:34 Dose: 25 mg Documented by: Diphenhydramine HCl (Benadryl) 25 mg IVPUSH ONETIME ONE Stop: 01/24/20 21:38 Last Admin: 01/24/20 21:47 Dose: 25 mg Documented by: Diphenhydramine HCl (Benadryl) 25 mg IVPUSH ONETIME ONE Stop: 01/25/20 07:45 Last Admin: 01/25/20 08:15 Dose: 25 mg Documented by: Famotidine (Pepcid) 20 mg PO ONETIME ONE Stop: 01/25/20 08:11 Last Admin: 01/25/20 08:23 Dose: 20 mg Documented by: Glucagon (Glucagen) 1 mg IM ASDIRECTED PRN PRN Reason: Hypoglycemia Glucagon (Glucagen) 1 mg IM ASDIRECTED PRN PRN Reason: Hypoglycemia Glucagon (Glucagen) 1 mg IM ASDIRECTED PRN PRN Reason: Hypoglycemia Haloperidol Lactate (Haldol) 3 mg IM ONETIME ONE Stop: 01/23/20 03:56 Last Admin: 01/23/20 04:03 Dose: 3 mg Documented by: Haloperidol Lactate (Haldol) 1 mg IM ONETIME ONE Stop: 01/26/20 09:01 Last Admin: 01/26/20 09:39 Dose: 1 mg Documented by: Hydromorphone HCl (Dilaudid) 1 mg IVPUSH ONETIME ONE Stop: 01/23/20 04:27 Last Admin: 01/23/20 04:37 Dose: 1 mg Documented by: Hydromorphone HCl (Dilaudid) 0.5 mg IVPUSH Q6H [facility] Last Admin: 01/27/20 13:08 Dose: Not Given Documented by: Hydromorphone HCl (Dilaudid) 0.5 mg IVPUSH Q6H PRN PRN Reason: Pain Last Admin: 01/28/20 10:08 Dose: 0.5 mg Documented by: Hydromorphone HCl (Dilaudid) 0.5 mg IVPUSH Q6H PRN PRN Reason: Pain Hydroxyzine HCl (Atarax) 25 mg PO ONETIME ONE Stop: 01/26/20 17:34 Last Admin: 01/26/20 17:45 Dose: 25 mg Documented by: Lactated Ringer's (Ringers, Lactated) 1,000 mls @ 999 mls/hr IV .BOLUS ONE Stop: 01/23/20 04:39 Last Admin: 01/23/20 04:04 Dose: 999 mls/hr Documented by: Lactated Ringer's (Ringers, Lactated) 1,000 mls @ 999 mls/hr IV .BOLUS ONE Stop: 01/23/20 05:26 Last Admin: 01/23/20 04:39 Dose: 999 mls/hr Documented by: Pantoprazole Sodium 40 mg/ (Sodium Chloride) 20 mls @ 420 mls/hr IVPUSH ONETIME ONE Stop: 01/23/20 04:29 Last Admin: 01/23/20 04:36 Dose: 420 mls/hr Documented by: Lactated Ringer's (Ringers, Lactated) 1,000 mls @ 999 mls/hr IV .BOLUS ONE Stop: 01/23/20 06:55 Last Admin: 01/23/20 06:02 Dose: 999 mls/hr Documented by: Dextrose/Sodium Chloride (Dextrose 5%-Normal Saline) 1,000 mls @ 75 mls/hr IV ASDIRECTED [facility] Last Admin: 01/23/20 09:36 Dose: 75 mls/hr Documented by: Potassium Chloride 40 meq/ (Premix) 100 mls @ 25 mls/hr IV ONETIME ONE Stop: 01/23/20 14:21 Last Admin: 01/23/20 10:49 Dose: 25 mls/hr Documented by: Potassium Chloride/Sodium Chloride (Normal Saline With 40 Meq Kcl) 1,000 mls @ 150 mls/hr IV ASDIRECTED [facility] Stop: 01/23/20 21:24 Last Admin: 01/23/20 17:26 Dose: 150 mls/hr Documented by: Ceftriaxone Sodium 1 gm/ (Sodium Chloride) 50 mls @ 100 mls/hr IV Q24H [facility] Last Admin: 01/23/20 17:50 Dose: Not Given Documented by: Ceftriaxone Sodium/Dextrose 1 (gm/ Premix) 50 mls @ 100 mls/hr IV Q24H [facility] Meropenem/Sodium Chloride 1 gm (/ Premix) 50 mls @ 100 mls/hr IV Q8H [facility] Last Admin: 01/25/20 08:25 Dose: 100 mls/hr Documented by: Dextrose/Sodium Chloride (Dextrose 5%-Normal Saline) 1,000 mls @ 100 mls/hr IV ASDIRECTED [facility] Piperacillin Sod/Tazobactam (Sod 3.375 gm/ Sodium Chloride) 50 mls @ 100 mls/hr IV Q6H [facility] Last Admin: 01/23/20 22:24 Dose: 100 mls/hr Documented by: Dextrose/Sodium Chloride (Dextrose 5%-Normal Saline) 1,000 mls @ 100 mls/hr IV ASDIRECTED [facility] Last Admin: 01/24/20 13:24 Dose: 100 mls/hr Documented by: Lactated Ringer's (Ringers, Lactated) 1,000 mls @ 500 mls/hr IV .BOLUS ONE Stop: 01/24/20 01:30 Last Admin: 01/23/20 23:45 Dose: 500 mls/hr Documented by: Lactated Ringer's (Ringers, Lactated) 1,000 mls @ 1,000 mls/hr IV .BOLUS ONE Stop: 01/24/20 10:21 Last Admin: 01/24/20 09:38 Dose: 1,000 mls/hr Documented by: Lactated Ringer's (Ringers, Lactated) 1,000 mls @ 100 mls/hr IV ASDIRECTED [facility] Last Admin: 01/25/20 10:24 Dose: 100 mls/hr Documented by: Lactated Ringer's (Ringers, Lactated) 1,000 mls @ 100 mls/hr IV ASDIRECTED [facility] Last Admin: 01/25/20 20:30 Dose: 100 mls/hr Documented by: Dextrose/Water (Dextrose 5% In Water) 1,000 mls @ 100 mls/hr IV Q10H [facility] Last Admin: 01/26/20 22:13 Dose: 100 mls/hr Documented by: Lactated Ringer's (Ringers, Lactated) 1,000 mls @ 125 mls/hr IV ASDIRECTED [facility] Last Admin: 01/27/20 03:43 Dose: 125 mls/hr Documented by: Potassium Chloride/Dextrose/Sod Cl (D5 Ns With 20 Meq Kcl) 1,000 mls @ 100 mls/hr IV ASDIRECTED [facility] Last Admin: 01/27/20 12:10 Dose: 100 mls/hr Documented by: Dextrose/Sodium Chloride (Dextrose 5%-Normal Saline) 1,000 [facility]ls [facility] Last Admin: 01/27/20 22:48 Dose: 100 mls/hr Documented by: Potassium Chloride 20 meq/ (Premix) 50 mls @ 25 mls/hr IV ONETIME ONE Stop: 01/28/20 10:26 Last Admin: 01/28/20 09:40 Dose: Not Given Documented by: Potassium Chloride/Sodium Chloride (Normal Saline With 40 Meq Kcl) 1,000 mls @ 125 mls/hr IV 01/28/20@0900 [facility] Stop: 01/28/20 16:59 Last Admin: 01/28/20 09:37 Dose: 125 mls/hr Documented by: Magnesium Sulfate (Magnesium Sulfate In Water Premix) 2 gm in 50 mls @ 50 mls/hr IV ONETIME ONE Stop: 01/28/20 12:24 Last Admin: 01/28/20 12:11 Dose: 50 mls/hr Documented by: Insulin Aspart (Novolog) 0 unit SUBCUT Q6H [facility]; Protocol Last Admin: 01/25/20 15:18 Dose: 6 unit Documented by: Insulin Glargine (Lantus Solostar) 20 units SUBCUT BEDTIME [facility] Insulin Glargine (Lantus Solostar) 10 units SUBCUT ONETIME ONE Stop: 01/23/20 21:01 Last Admin: 01/23/20 22:23 Dose: 10 units Documented by: Insulin Human Regular (Novolin R) 8 unit IVPUSH ONETIME ONE; Protocol Stop: 01/23/20 04:55 Last Admin: 01/23/20 05:14 Dose: 8 unit Documented by: Insulin Human Regular (Novolin R) 5 unit IVPUSH ONETIME ONE; Protocol Stop: 01/23/20 05:37 Last Admin: 01/23/20 05:44 Dose: 5 unit Documented by: Lorazepam (Ativan) 0.5 mg PO ONETIME ONE Stop: 01/29/20 15:55 Last Admin: 01/29/20 16:00 Dose: 0.5 mg Documented by: Metoclopramide HCl (Reglan) 10 mg IVPUSH ONETIME ONE Stop: 01/23/20 04:27 Last Admin: 01/23/20 04:39 Dose: 10 mg Documented by: Metoclopramide HCl (Reglan) 10 mg IVPUSH Q4H PRN PRN Reason: Nausea/Vomiting Last Admin: 01/25/20 12:30 Dose: 10 mg Documented by: Morphine Sulfate (Morphine) 2 mg IVPUSH Q4H PRN PRN Reason: Pain Last Admin: 01/25/20 17:37 Dose: 2 mg Documented by: Morphine Sulfate (Morphine) 2 mg IVPUSH Q6H PRN PRN Reason: Pain Last Admin: 01/26/20 15:29 Dose: 2 mg Documented by: Morphine Sulfate (Morphine) 1 mg IVPUSH Q6H PRN PRN Reason: Pain Ondansetron HCl (Zofran) 4 mg IVPUSH Q4H PRN PRN Reason: Nausea Last Admin: 01/25/20 03:55 Dose: 4 mg Documented by: Suboxone 8/2 Sl (Tablets) 0 each PO .ASNEEDED PRN PRN Reason: OPIOID CRAVING Last Admin: 01/29/20 09:49 Dose: 0.25 each Documented by: Potassium Chloride (Klor-Con M20) 40 meq PO ONETIME ONE Stop: 01/27/20 07:43 Last Admin: 01/27/20 12:02 Dose: Not Given Documented by: Potassium Chloride (Klor-Con M20) 40 meq PO ONETIME ONE Stop: 01/30/20 09:21 Last Admin: 01/30/20 09:30 Dose: 40 meq Documented by: Prochlorperazine Edisylate (Compazine) 5 mg IVPUSH Q6H [facility] Last Admin: 01/29/20 12:16 Dose: 5 mg Documented by:
[2020-01-31] MEDS ORDERED: Amoxicillin/Clavulanate K 875-125 MG Tab PO SCH (21:00)
--- NOTE | 2020-02-09 11:40 | PCM.SN.2 ---
- Free Text/Narrative Note: EKG 01/30/20 4:20 normal sinus rhythm HR 83
== END 2020-01-31 13:00 | disposition home or self-care (01) | DRG 872 ==
LOC: MW.ED 03:36 → OBSVTOIN 09:06 → MW.MS 09:06
PROVIDERS: ADMIT Internal Medicine; ATTEND Internal Medicine
DX: A41.51 Sepsis due to Escherichia coli [E. coli] (principal); N13.30 Unspecified hydronephrosis; N39.0 Urinary tract infection, site not specified; E87.0 Hyperosmolality and hypernatremia; Z79.4 Long term (current) use of insulin; E87.1 Hypo-osmolality and hyponatremia; E10.43 Type 1 diabetes mellitus with diabetic autonomic (poly)neuropathy; E10.65 Type 1 diabetes mellitus with hyperglycemia; Z91.14 Patient's other noncompliance with medication regimen; K31.84 Gastroparesis; N31.9 Neuromuscular dysfunction of bladder, unspecified; F11.10 Opioid abuse, uncomplicated; K58.9 Irritable bowel syndrome, unspecified; F41.9 Anxiety disorder, unspecified; F32.9 Major depressive disorder, single episode, unspecified; Z91.19 Patient's noncompliance with other medical treatment and regimen; Z79.899 Other long term (current) drug therapy; R33.9 Retention of urine, unspecified; E83.42 Hypomagnesemia; E87.6 Hypokalemia; L29.9 Pruritus, unspecified; Z87.448 Personal history of other diseases of urinary system; Z20.828 Contact with and (suspected) exposure to other viral communicable diseases
CPT/HCPCS: 36415; 74176; 76700; 80053; 80305; 81001; 82009; 82803; 82962 ×5; 83605; 83690; 83735; 85025; 87040 ×2; 87077 ×3; 87086; 87186 ×2; 87635; 96372; 96375 ×2; 99285; C9113; J1170; J1200; J1630; J2765; J7120 ×3; 51702; 80048; 82272; 84484; 87088; 93005; 93010; 96365; 96374; 96376; 99283; A9270-GY; G0378; J0696; J0780; J1815-GY; J2185; J2270; J2405; J2543; J3475; J3480; J3490; J7030; J7042; J7050; J7060; Q0164; U0002

== ENCOUNTER 2020-02-01 10:33 | Emergency (ER) | payer MEDICAID ==
--- NOTE | 2020-02-01 11:16 | EDM.PDOC ---
ED HPI GENERAL MEDICAL PROBLEM - General Stated Complaint: CATHETER REMOVAL Time Seen by Provider: 02/01/20 10:36 Source of Information: Reports: Patient History Limitations: Reports: No Limitations - History of Present Illness INITIAL COMMENTS - FREE TEXT/NARRATIVE: HISTORY AND PHYSICAL: History of present illness: Patient is a 24-year-old male who presents emergency room today with concern of bladder catheter discomfort and states "he would like us to remove the catheter" that has been ongoing since he was discharged from the emergency room yesterday. Patient states that he has been using a leg bag and he has noted clear drainage of his urine from the leg bag. Patient states that starting last night he started having some discomfort of the "bladder area ". Patient states he is supposed to be taking antibiotics since discharge from the emergency room but has not picked these up from the pharmacy. Patient states that he also has an appointment today with his primary care provider, Teofilo, in the clinic but he does not plan on going to this appointment as "the timing is not perfect ". Patient states that he also has an appointment tomorrow with the urologist, Dr. Nettles, for evaluation of the catheter as well as the presence of a phimosis. States he also does not intend on going to this appointment tomorrow with Dr. Warren. Patient was admitted to the hospital from the emergency room on 01/23/2020 and discharged yesterday 01/31/2020 for ecoli urinary infection, bacteremia, urinary retention s/p indwelling cath that was initially placed on 01/23/2020 and replaced yesterday before discharge. She was given multiple doses of Rocephin throughout his stay in the emergency room and was discharged with a prescription for Augmentin as well as a prescription for insulin. He states that he has not picked up the antibiotic prescription and does not intend to. He has a history of T1 diabetes on insulin, neurogenic bladder, medication non- compliance. Patient denies fever, chills, chest pain, shortness of breath, or cough. Denies headache, neck stiff ness, change in vision, syncope, or near syncope. Denies nausea, vomiting, abdominal pain, diarrhea, constipation, or dysuria. Has not noted any blood in urine or stool. Patient has been eating and drinking appropriately. Review of systems: As per history of present illness and below otherwise all systems reviewed and negative. Past medical history: As per history of present illness and as reviewed below otherwise noncontributory. Surgical history: As per history of present illness and as reviewed below otherwise noncontributory. Social history: See social history for further information Family history: As per history of present illness and as reviewed below otherwise noncontributory. Physical exam: General: Patient is alert, oriented, and in no acute distress. Patient sitting comfortably on exam table. Vitals stable and reviewed by me. HEENT: Atraumatic, normocephalic, pupils equal and reactive bilaterally, negative for conjunctival pallor or scleral icterus, mucous membranes moist, TMs normal bilaterally, throat clear, neck supple, nontender, trachea midline. No drooling or trismus noted. No meningeal signs. No hot potato voice noted. Lungs: Clear to auscultation, breath sounds equal bilaterally, chest nontender. Heart: S1S2, regular rate and rhythm without overt murmur Abdomen: Soft, nondistended, nontender. Negative for masses or hepatosplenomegaly. Negative for costovertebral tenderness. Pelvis: Stable nontender. Genitourinary: Director Alumni Relations at bedside Perlita Saucedo. Patient does have phimosis of the foreskin without the presence of paraphimosis. The catheter is in place and draining urine appropriately. There is no pus or erythema noted. No rashes, lesions, discharge. No testicular pain or tenderness. Rectal: Deferred. Skin: Intact, warm, dry. No lesions or rashes noted. Extremities: Atraumatic, negative for cords or calf pain. Neurovascular unremarkable. Neuro: Awake, alert, oriented. Cranial nerves II through XII unremarkable. Cerebellum unremarkable. Motor and sensory unremarkable throughout. Exam nonfocal. Notes: Dr. Acevedo verbally involved in patient care. Patient was discharged from the hospital yesterday with a prescription for Augmentin. Patient has not picked up this prescription and has been noncompliant with his medications. I do suspect that patient's discomfort is contributed to the urinary tract infection that he is supposed to be on antibiotics for. The Clements is draining appropriately, and is in appropriate place. I instructed patient that he has an appointment tomorrow with urology to assess for removal of the catheter and that we will not remove it today in the Emergency Room. Patient does have the presence of phimosis and has been a difficult catheter placement in the past so will wait for Dr. Warren to evaluate patient to assess the need/ or no need for catheter. Patient does not intend to go to his appointment today with his PCP or tomorrow with urology or to belt picker antibiotics from the pharmacy. Discussed with patient the importance for attending these appointments as well as for picking up the prescription for antibiotics from the pharmacy. Voices understanding and is agreeable to plan of care. Denies any further questions or concerns at this time. Diagnostics: UA w culture Therapeutics: Rocephin Prescription: None (Has RX for Augmentin at the pharmacy that he has not picked up) Impression: Urinary tract infection Urinary retention s/p indwelling catheter Medication non-compliance Phimosis Plan: 1. Follow up with your PCP today as scheduled and as discussed. 2. Follow up with the urologist, Dr. Warren tomorrow as scheduled and as discussed. 3. lunchroom supervisor your mediations and antibiotics prescribed to you at the pharmacy. 4. You can alternate ibuprofen and Tylenol as directed for pain and discomfort. Return to the ED as needed and as discussed. Definitive disposition and diagnosis as appropriate pending reevaluation and review of above. penis Pain Score (Numeric/FACES): 3 - Related Data Allergies Allergy/AdvReac Type Severity Reaction Status Date / Time No Known Allergies Allergy Verified 02/01/20 11:08 Home Meds: Home Meds Insulin Aspart [NovoLOG] 5 units SUBCUT TIDAC 07/23/18 [History] Buprenorphine HCl/Naloxone HCl [Zubsolv 5.7-1.4 mg Tablet Sl] 3 tab SL DAILY 12/18/18 [History] Insulin Glarg,Human.Rec.Analog [Lantus] 40 unit SUBCUT DAILY 12/18/18 [History] Amoxicillin/Clavulanate K [Augmentin 875-125 MG] 1 tab PO Q12HR 5 Days #10 tablet 01/31/20 [Rx] Insulin Aspart [NovoLOG] 0 unit SUBCUT Q6H pen 01/31/20 [Rx] Insulin Glarg,Human.Rec.Analog [Lantus Solostar] 20 units SUBCUT BEDTIME pen 01/31/20 [Rx] Past Medical History - Past Health History Medical/Surgical History: Denies Medical/Surgical History HEENT History: Reports: Other (See Below) Other HEENT History: ear ache, broken and missing teeth Cardiovascular History: Reports: None Respiratory History: Reports: None Gastrointestinal History: Reports: Irritable Bowel Syndrome Other Gastrointestinal History: gastroparesis Genitourinary History: Reports: Pyelonephritis, Other (See Below) Other Genitourinary History: hydronephrosis, neurogenic bladder Musculoskeletal History: Reports: Fracture Other Musculoskeletal History: Elbow long time ago Neurological History: Reports: None Psychiatric History: Reports: Anxiety, Depression Endocrine/Metabolic History: Reports: Diabetes, Type I Other Endocrine/Metabolic History: non-compliant to DM medications Insulin Pump Model and Child Welfare Worker: None Hematologic History: Reports: None Immunologic History: Reports: None Oncologic (Cancer) History: Reports: None Dermatologic History: Reports: Other (See Below) Other Dermatologic History: dry itchy skin - Infectious Disease History Infectious Disease History: Reports: None - Past Surgical History HEENT Surgical History: Reports: None GI Surgical History: Reports: None Male Surgical History: Reports: None Endocrine Surgical History: Reports: None Musculoskeletal Surgical History: Reports: None Dermatological Surgical History: Reports: None Social & Family History - Family History Family Medical History: No Pertinent Family History OBGYN: Reports: Endocrine/Metabolic: Reports: Diabetes, Type I, Diabetes, type II - Caffeine Use Caffeine Use: Reports: None - Living Situation & Occupation Living situation: Reports: Single, with Family Occupation: Unemployed ED ROS GENERAL - Review of Systems Review Of Systems: Comprehensive ROS is negative, except as noted in HPI. ED EXAM, GENERAL - Physical Exam Exam: See Below (see dictation) Course - Vital Signs Last Recorded V/S: Last Vital Signs Temp 96.5 F L 02/01/20 10:45 Pulse 91 02/01/20 11:20 Resp 16 02/01/20 10:45 BP 109/69 02/01/20 10:45 Pulse Ox 99 02/01/20 11:20 - Orders/Labs/Meds Orders: Active Orders 24 hr Category Date Time Status CULTURE URINE [RM] Stat Lab 02/01/20 11:02 Received Labs: Laboratory Tests 02/01/20 Range/Units 11:02 Urine Color YELLOW Urine Appearance CLEAR Urine pH 7.5 (5.0-8.0) Ur Specific [place] 1.015 (1.001-1.035) Urine Protein TRACE H (NEGATIVE) mg/dL Urine Glucose (UA) >=1000 (NEGATIVE) mg/dL Urine Ketones NEGATIVE (NEGATIVE) mg/dL Urine Occult Blood SMALL H (NEGATIVE) Urine Nitrite NEGATIVE (NEGATIVE) Urine Bilirubin NEGATIVE (NEGATIVE) Urine Urobilinogen 0.2 (<2.0) EU/dL Ur Leukocyte Esterase SMALL H (NEGATIVE) Urine RBC 5-10 (0-2/HPF) Urine WBC 25-45 (0-5/HPF) Ur Squamous Epith Cells RARE Urine Bacteria FEW (NEGATIVE) Urine Mucus MODERATE (NONE-MOD) Meds: Medications Discontinued Medications Generic Name Dose Route Start Last Admin Trade Name Freq PRN Reason Stop Dose Admin Ceftriaxone Sodium 1 gm 02/01/20 11:28 02/01/20 11:32 Rocephin IM 02/01/20 11:29 Not Given ONETIME ONE Ceftriaxone Sodium 1 gm/ 4 mls @ 4 mls/sec 02/01/20 11:31 Lidocaine HCl IM 02/01/20 11:32 ONETIME ONE Departure - Departure Time of Disposition: 11:29 Disposition: Home, Self-Care 01 Clinical Impression: Phimosis, Nonadherence to medication, Urinary retention, Presence of indwelling Clements catheter Urinary tract infection Qualifiers: Urinary tract infection type: acute cystitis Hematuria presence: with hematuria Qualified Code(s): N30.01 - Acute cystitis with hematuria - Discharge Information Referrals: Lynsey Palm NP [Primary Care Provider] - Additional Instructions: The following information is given to patients seen in the emergency department who are being discharged to home. This information is to outline your options for follow-up care. We provide all patients seen in our emergency department with a follow-up referral. The need for follow-up, as well as the timing and circumstances, are variable depending upon the specifics of your emergency department visit. If you don't have a primary care physician on staff, we will provide you with a referral. We always advise you to contact your personal physician following an emergency department visit to inform them of the circumstance of the visit and for follow-up with them and/or the need for any referrals to a consulting specialist. The emergency department will also refer you to a specialist when appropriate. This referral assures that you have the opportunity for follow-up care with a specialist. All of these measure are taken in an effort to provide you with optimal care, which includes your follow-up. Under all circumstances we always encourage you to contact your private physician who remains a resource for coordinating your care. When calling for follow-up care, please make the office aware that this follow-up is from your recent emergency room visit. If for any reason you are refused follow-up, please contact the [facility] Emergency Department at and asked to speak to the emergency department charge nurse. [facility] [address] [place] [id number] [facility] [address] [place] [address] [facility] - Urology, Dr. Warren [address] [place] [address] 1. Follow up with your PCP today as scheduled and as discussed. 2. Follow up with the urologist, Dr. Warren tomorrow as scheduled and as discussed. 3. lunchroom supervisor your mediations and antibiotics prescribed to you at the pharmacy. 4. You can alternate ibuprofen and Tylenol as directed for pain and discomfort. Return to the ED as needed and as discussed. Sepsis Event Note (ED) - Evaluation Sepsis Screening Result: Possible Sepsis Risk - Focused Exam Vital Signs: Vital Signs Temp Pulse Resp BP Pulse Ox 02/01/20 11:20 91 99 02/01/20 10:45 96.5 F L 95 16 109/69 95 - My Orders Last 24 Hours: My Active Orders 02/01/20 11:02 CULTURE URINE [RM] Stat - Assessment/Plan Last 24 Hours: My Active Orders 02/01/20 11:02 CULTURE URINE [RM] Stat
[2020-02-01] MEDS ORDERED: cefTRIAXone 1 GM Vial IM ONE (11:28)
[2020-02-01] MEDS ORDERED: cefTRIAXone 1 GM in Lidocaine 1% 4 ML IM ONE (11:31)
[2020-02-01 12:09] VITALS: BP 124/86; PULSE 88
== END 2020-02-01 12:10 | disposition home or self-care (01) ==
LOC: MW.ED 10:33
DX: N30.01 Acute cystitis with hematuria (principal); R33.9 Retention of urine, unspecified; N47.1 Phimosis; E10.43 Type 1 diabetes mellitus with diabetic autonomic (poly)neuropathy; K31.84 Gastroparesis; Z46.6 Encounter for fitting and adjustment of urinary device; Z91.14 Patient's other noncompliance with medication regimen
CPT/HCPCS: 81001; 87086; 96372; 99283; J0696; J2001

== ENCOUNTER 2020-03-06 20:37 | Emergency (ER) | payer MEDICAID ==
[2020-03-06] MEDS ORDERED: Ondansetron 4 MG/2 ML SDV IVPUSH ONE (21:42)
[2020-03-06] MEDS ORDERED: Morphine 4 MG/ML Syringe IM ONE (21:42)
[2020-03-06] MEDS ORDERED: Lactated Ringers 1,000 ML IV ONE (21:42)
[2020-03-06] MEDS ORDERED: Famotidine 20 MG/2 ML SDV IVPUSH ONE (21:42)
[2020-03-06] MEDS ORDERED: Morphine 4 MG/ML Syringe IVPUSH ONE (21:56)
[2020-03-06 22:02] LABS: BLOOD UREA NITROGEN,BUN 35 mg/dL (7.0-18.0); CARBON DIOXIDE,CO2 26.1 mmol/L (21.0-32.0); CHLORIDE,CL 104 mmol/L (98-107); GLUCOSE RANDOM 313 mg/dL (74-106); POTASSIUM,K 4.6 mmol/L (3.5-5.1); SODIUM,NA 141 mmol/L (136-148)
[2020-03-06] MEDS ORDERED: diphenhydrAMINE 50 MG/ML SDV IVPUSH ONE (22:05)
[2020-03-06] MEDS ORDERED: Iopamidol 755 MG/ML 500 ML Multipack Bottle IVPUSH STA (22:30)
--- NOTE | 2020-03-06 22:56 | CT ---
Indication: Abdominal pain, possible GI bleed Technique: Contrast enhanced axial CT imaging through the abdomen and pelvis. 75 mL Isovue 370 contrast agent was administered intravenously. Sagittal and coronal reconstructions are provided. Comparison: CT abdomen pelvis without contrast 01/26/2020, CT abdomen pelvis with contrast 07/23/2018 Findings: No abnormalities are demonstrated relating to the liver, spleen, pancreas, and adrenal glands. The gallbladder is distended, measuring up to 11 cm. There is no appreciable gallbladder wall thickening or pericholecystic fluid. There is a small ill-defined area of heterogeneous enhancement in the posterior right upper renal pole. Focal renal cortical thinning is noted in the posterior left upper renal pole. There is no hydronephrosis. No renal stones are demonstrated. The urinary bladder is moderately distended. There is diffuse urinary bladder wall thickening. The portal vein is patent. There is normal caliber of the abdominal aorta. There is no abdominal lymphadenopathy. The stomach and duodenum are unremarkable. A few prominent distal small bowel loops remain within normal limits. The appendix is noninflamed. There is no colonic wall thickening, mesenteric edema, or intraperitoneal free fluid. The osseous structures are unremarkable. The included lung bases are clear. Impression: 1. Diffusion or bladder wall thickening suggesting cystitis. Small ill-defined area of heterogeneous enhancement in the posterior upper renal pole, possibly representing pyelonephritis. Correlate for signs and symptoms of urinary tract infection. 2. Gallbladder distention without appreciable wall thickening or pericholecystic fluid. Correlate clinically to exclude cholecystitis. 3. No acute inflammatory changes of the gastrointestinal tract. Normal appendix. Please note that all CT scans at this facility use dose modulation, iterative reconstruction, and/or weight-based dosing when appropriate to reduce radiation dose to as low as reasonably achievable. Dictated by Magnus Guerrero MD @ Mar 06 2020 10:40PM Signed by Dr. Magnus Guerrero @ Mar 06 2020 10:54PM
[2020-03-06] MEDS ORDERED: cefTRIAXone 1 GM in Premix Bag 1 BAG IV ONE (23:25)
--- NOTE | 2020-03-06 23:58 | EDM.PDOC ---
ED HPI GENERAL MEDICAL PROBLEM - General Chief Complaint: Abdominal Pain Stated Complaint: VOMITING Time Seen by Provider: 03/06/20 20:56 - History of Present Illness INITIAL COMMENTS - FREE TEXT/NARRATIVE: CHIEF COMPLAINT(S): Abdominal pain HISTORY OF PRESENT ILLNESS: This is a 24-year-old man with a complex past medical history including type 1 diabetes mellitus and recurrent urinary tract infections with multiple emergency department visits and noncompliance who comes to the emergency department with a chief complaint of abdominal pain. Patient states that he started to experience abdominal pain located in his lower quadrant rated 9 out of 10 starting today. He describes the pain is constant without any radiation. He states that he does have associated diarrhea and has vomited. He states that his vomit and diarrhea may be black. He states that he is currently feeling nauseous. He denies any history of GI bleed. He denies any dysuria or difficulty urinating. He denies any chest pain, shortness of breath, fever, or chills. He denies any back pain. He states that in addition to this he is also feeling itchy. He states that he was discharged on amoxicillin for his urinary tract infection and he is just been getting itchier. He denies any rash, shortness of breath, wheezing, throat swelling. He denies any other symptoms. REVIEW OF SYSTEMS: Constitutional: Positive for itching. Denies fever, chills. Eyes: Denies eye pain Ears, Nose, Mouth, & Throat: Denies earache Cardiovascular: Denies chest pain Respiratory: Denies shortness of breath Gastrointestinal: Positive for abdominal pain in the lower quadrants with nausea, vomiting, diarrhea. Denies hematochezia Genitourinary: Denies hematuria, dysuria, Skin:Denies a rash Neurological: Denies blurred vision Psychiatric: Denies depression PAST MEDICAL HISTORY: As per history of present illness and as reviewed below otherwise noncontributory. SURGICAL HISTORY: As per history of present illness and as reviewed below otherwise noncontributory. SOCIAL HISTORY: As per history of present illness and as reviewed below otherwise noncontributory. FAMILY HISTORY: As per history of present illness and as reviewed below otherwise noncontributory. EXAMINATION OF ORGAN SYSTEMS/BODY AREAS: Constitutional: Blood pressure was 99/52, heart rate 116, respiratory rate 18 with an oxygen saturation 95% on room air. Temperature 36.4 General: Young man who does not appear to be in any acute distress. Psychiatric: Appropriate mood and affect. Eyes: No scleral icterus or conjunctival erythema ENMT: Moist mucous membranes. No pharyngeal erythema Cardiovascular: Tachycardic but regular. No gallops, murmurs, or rubs. Bilateral upper extremity pulses symmetric and intact. No peripheral edema. No JVD. Respiratory: Lungs clear to auscultation bilaterally. No wheezes, rales, or rhonchi. Gastrointestinal: Soft, diffusely tender to palpation. No rebound or guarding. Normoactive bowel sounds rectal exam performed with RN heat welder plastics in presence. The stool was brown and guaiac negative. Genitourinary: Mild suprapubic tenderness. No obvious CVA tenderness. Musculoskeletal: Normal range of motion. Skin: No lesions or abrasions. Neurological: Alert, GCS 15 MEDICAL DECISION MAKING AND COURSE IN THE ED WITH INTERPRETATION/REVIEW OF DIAGNOSTIC STUDIES: This is a 24-year-old man with a complex past medical history including type 1 diabetes mellitus and recurrent urinary tract infections with multiple emergency department visits and noncompliance who comes to the emergency department with a chief complaint of lower quadrant abdominal pain associated with dark vomit and stools with additional skin itching who is mildly tachycardic and normal tensive for his age. The patient's guaiac is negative and given his diffuse abdominal pain and history of urinary retention we will undergo a work-up. We will obtain CBC, CMP, coags, lactic acid, urinalysis, ketones and a [id number] glucose. Will provide the patient with 1 L lactated Ringer's bolus, famotidine, morphine, Zofran, and Benadryl. Also obtain a CT abdomen pelvis with IV contrast. Laboratory: CBC reveals a normocytic anemia with a hemoglobin of 11.9 and he matocrit of 36.7. This appears to be improved from prior hemoglobin at 10.2. Coags are within normal limits. Lactic acid is 1.2. CMP reveals hyperglycemia at 313. Otherwise is normal. Ketones are negative. Covid is negative. Urinalysis was a clean catch and was small for leukocyte esterase, negative for nitrites, and trace for blood. WBC count 35-39. Interpretation: Positive. After labs I did review the patient's chart. The patient does have prior urine cultures which did grow E. coli which are susceptible to everything except for Bactrim. At the time of reevaluation the patient's pain had improved, the patient's heart rate had improved. The radiological images were viewed by myself along with reading the report from the radiologist. CT abdomen pelvis with IV contrast reveals bladder wall thickening suggesting cystitis with a small ill-defined area of heterogenous enhancement in the posterior upper renal pole possibly representing pyelonephritis. There is gallbladder distention without wall thickening or pericholecystic fluid. No other acute inflammatory changes of the GI tract. Normal appendix. After imaging I did provide the patient with IV ceftriaxone. At this time given that he has no leukocytosis his hemoglobin is stable and that his vitals and symptoms have improved I did discuss with him that I would like to do a trial of p.o. and reevaluate. I discussed with him that he has suggestion of pyelonephritis and that I would be providing with a prescription with Keflex to be picked up at the pharmacy today. He did express understanding. The patient was able to tolerate p.o. At this time I did discuss that given the vomiting and his history should continue his home medications and follow-up with his primary care physician. In addition he should follow-up with urology given his complex urological problems. He was amenable to discharge at this time and had no further questions. He is to return to the emergency department if he has any new or worsening symptoms. DISPOSITION: The patient was discharged home in stable condition. The patient will follow up with PCP and urology CONDITION: Fair PROCEDURES: None FINAL IMPRESSION(S)/DIAGNOSES: 1. Acute abdominal pain secondary to pyelonephritis Moisés Olson M.D. abdominal Pain Score (Numeric/FACES): 9 - Related Data Allergies Allergy/AdvReac Type Severity Reaction Status Date / Time No Known Allergies Allergy Verified 02/01/20 11:08 Home Meds: Home Meds Insulin Aspart [NovoLOG] 5 units SUBCUT TIDAC 07/23/18 [History] Buprenorphine HCl/Naloxone HCl [Zubsolv 5.7-1.4 mg Tablet Sl] 3 tab SL DAILY 12/18/18 [History] Insulin Glarg,Human.Rec.Analog [Lantus] 40 unit SUBCUT DAILY 12/18/18 [History] Amoxicillin/Clavulanate K [Augmentin 875-125 MG] 1 tab PO Q12HR 5 Days #10 tablet 01/31/20 [Rx] Insulin Aspart [NovoLOG] 0 unit SUBCUT Q6H pen 01/31/20 [Rx] Insulin Glarg,Human.Rec.Analog [Lantus Solostar] 20 units SUBCUT BEDTIME pen 01/31/20 [Rx] cephALEXin [Keflex] 500 mg PO BID #20 cap 03/06/20 [Rx] Past Medical History - Past Health History Medical/Surgical History: Denies Medical/Surgical History HEENT History: Reports: Other (See Below) Other HEENT History: ear ache, broken and missing teeth Cardiovascular History: Reports: None Respiratory History: Reports: None Gastrointestinal History: Reports: Irritable Bowel Syndrome Other Gastrointestinal History: gastroparesis Genitourinary History: Reports: Pyelonephritis, Other (See Below) Other Genitourinary History: hydronephrosis, neurogenic bladder Musculoskeletal History: Reports: Fracture Other Musculoskeletal History: Elbow long time ago Neurological History: Reports: None Psychiatric History: Reports: Anxiety, Depression Endocrine/Metabolic History: Reports: Diabetes, Type I Other Endocrine/Metabolic History: non-compliant to DM medications Insulin Pump Model and Car Packer: None Hematologic History: Reports: None Immunologic History: Reports: None Oncologic (Cancer) History: Reports: None Dermatologic History: Reports: Other (See Below) Other Dermatologic History: dry itchy skin - Infectious Disease History Infectious Disease History: Reports: None - Past Surgical History HEENT Surgical History: Reports: None GI Surgical History: Reports: None Male Surgical History: Reports: None Endocrine Surgical History: Reports: None Musculoskeletal Surgical History: Reports: None Dermatological Surgical History: Reports: None Social & Family History - Family History Family Medical History: No Pertinent Family History OBGYN: Reports: Endocrine/Metabolic: Reports: Diabetes, Type I, Diabetes, type II - Caffeine Use Caffeine Use: Reports: None - Recreational Drug Use Recreational Drug Use: No - Living Situation & Occupation Living situation: Reports: Single, with Family Occupation: Unemployed ED ROS GENERAL - Review of Systems Review Of Systems: See Below ED EXAM, GENERAL - Physical Exam Exam: See Below Course - Vital Signs Last Recorded V/S: Last Vital Signs Temp 36.7 C 03/07/20 00:15 Pulse 96 03/07/20 00:15 Resp 18 03/07/20 00:15 BP 111/77 03/07/20 00:15 Pulse Ox 96 03/07/20 00:15 - Orders/Labs/Meds Orders: Active Orders 24 hr Category Date Time Status CULTURE URINE [RM] Stat Lab 03/07/20 00:03 Received Labs: Laboratory Tests 03/06/20 03/06/20 03/06/20 Range/Units 21:07 21:10 21:10 WBC 5.67 (4.0-11.0) K/uL RBC 4.33 L (4.50-5.90) M/uL Hgb 11.9 L (13.0-17.0) g/dL Hct 36.7 L (38.0-50.0) % MCV 84.8 (80.0-98.0) fL MCH 27.5 (27.0-32.0) pg MCHC 32.4 (31.0-37.0) g/dL RDW Std Deviation 45.5 (28.0-62.0) fl RDW Coeff of Erika 15 (11.0-15.0) % Plt Count 239 (150-400) K/uL MPV 10.60 (7.40-12.00) fL Neut % (Auto) 72.2 (48.0-80.0) % Lymph % (Auto) 24.0 (16.0-40.0) % [place] % (Auto) 2.5 (0.0-15.0) % Eos % (Auto) 1.1 (0.0-7.0) % Baso % (Auto) 0.2 (0.0-1.5) % Neut # (Auto) 4.1 (1.4-5.7) K/uL Lymph # (Auto) 1.4 (0.6-2.4) K/uL [place] # (Auto) 0.1 (0.0-0.8) K/uL Eos # (Auto) 0.1 (0.0-0.7) K/uL Baso # (Auto) 0.0 (0.0-0.1) K/uL Nucleated RBC % 0.0 /100WBC Nucleated RBCs # 0 K/uL INR 1.00 Lactate (0.20-2.00) mmol/L Sodium (136-148) mmol/L Potassium (3.5-5.1) mmol/L Chloride (98-107) mmol/L Carbon Dioxide (21.0-32.0) mmol/L BUN (7.0-18.0) mg/dL Creatinine (0.8-1.3) mg/dL Est Cr Clr Drug Dosing mL/min Estimated GFR (MDRD) ml/min Glucose (74-106) mg/dL POC Glucose 310 H (60-110) mg/dL Calcium (8.5-10.1) mg/dL Total Bilirubin (0.2-1.0) mg/dL AST (15-37) IU/L ALT (14-63) IU/L Alkaline Phosphatase (46-116) U/L Total Protein (6.4-8.2) g/dL Albumin (3.4-5.0) g/dL Globulin (2.6-4.0) g/dL Albumin/Globulin Ratio (0.9-1.6) Urine Color Urine Appearance Urine pH (5.0-8.0) Ur Specific [place] (1.001-1.035) Urine Protein (NEGATIVE) mg/dL Urine Glucose (UA) (NEGATIVE) mg/dL Urine Ketones (NEGATIVE) mg/dL Urine Occult Blood (NEGATIVE) Urine Nitrite (NEGATIVE) Urine Bilirubin (NEGATIVE) Urine Urobilinogen (<2.0) EU/dL Ur Leukocyte Esterase (NEGATIVE) Urine RBC (0-2/HPF) Urine WBC (0-5/HPF) Ur Epithelial Cells (NONE-FEW) Urine Bacteria (NEGATIVE) Urine Mucus (NONE-MOD) Ketones (NEG) SARS-CoV-2 RNA (RICHIE) (NEGATIVE) Blood Type Antibody Screen 03/06/20 03/06/20 03/06/20 Range/Units 21:10 21:10 21:10 WBC (4.0-11.0) K/uL RBC (4.50-5.90) M/uL Hgb (13.0-17.0) g/dL Hct (38.0-50.0) % MCV (80.0-98.0) fL MCH (27.0-32.0) pg MCHC (31.0-37.0) g/dL RDW Std Deviation (28.0-62.0) fl RDW Coeff of Erika (11.0-15.0) % Plt Count (150-400) K/uL MPV (7.40-12.00) fL Neut % (Auto) (48.0-80.0) % Lymph % (Auto) (16.0-40.0) % [place] % (Auto) (0.0-15.0) % Eos % (Auto) (0.0-7.0) % Baso % (Auto) (0.0-1.5) % Neut # (Auto) (1.4-5.7) K/uL Lymph # (Auto) (0.6-2.4) K/uL [place] # (Auto) (0.0-0.8) K/uL Eos # (Auto) (0.0-0.7) K/uL Baso # (Auto) (0.0-0.1) K/uL Nucleated RBC % /100WBC Nucleated RBCs # K/uL INR Lactate 1.2 (0.20-2.00) mmol/L Sodium 141 (136-148) mmol/L Potassium 4.6 (3.5-5.1) mmol/L Chloride 104 (98-107) mmol/L Carbon Dioxide 26.1 (21.0-32.0) mmol/L BUN 35 H (7.0-18.0) mg/dL Creatinine 1.0 (0.8-1.3) mg/dL Est Cr Clr Drug Dosing 85.49 mL/min Estimated GFR (MDRD) > 60.0 ml/min Glucose 313 H (74-106) mg/dL POC Glucose (60-110) mg/dL Calcium 9.8 (8.5-10.1) mg/dL Total Bilirubin 0.2 (0.2-1.0) mg/dL AST 11 L (15-37) IU/L ALT 12 L (14-63) IU/L Alkaline Phosphatase 96 (46-116) U/L Total Protein 9.0 H (6.4-8.2) g/dL Albumin 3.5 (3.4-5.0) g/dL Globulin 5.5 H (2.6-4.0) g/dL Albumin/Globulin Ratio 0.6 L (0.9-1.6) Urine Color Urine Appearance Urine pH (5.0-8.0) Ur Specific [place] (1.001-1.035) Urine Protein (NEGATIVE) mg/dL Urine Glucose (UA) (NEGATIVE) mg/dL Urine Ketones (NEGATIVE) mg/dL Urine Occult Blood (NEGATIVE) Urine Nitrite (NEGATIVE) Urine Bilirubin (NEGATIVE) Urine Urobilinogen (<2.0) EU/dL Ur Leukocyte Esterase (NEGATIVE) Urine RBC (0-2/HPF) Urine WBC (0-5/HPF) Ur Epithelial Cells (NONE-FEW) Urine Bacteria (NEGATIVE) Urine Mucus (NONE-MOD) Ketones NEGATIVE (NEG) SARS-CoV-2 RNA (RICHIE) (NEGATIVE) Blood Type Antibody Screen 03/06/20 03/06/20 03/06/20 Range/Units 21:20 22:00 22:25 WBC (4.0-11.0) K/uL RBC (4.50-5.90) M/uL Hgb (13.0-17.0) g/dL Hct (38.0-50.0) % MCV (80.0-98.0) fL MCH (27.0-32.0) pg MCHC (31.0-37.0) g/dL RDW Std Deviation (28.0-62.0) fl RDW Coeff of Erika (11.0-15.0) % Plt Count (150-400) K/uL MPV (7.40-12.00) fL Neut % (Auto) (48.0-80.0) % Lymph % (Auto) (16.0-40.0) % [place] % (Auto) (0.0-15.0) % Eos % (Auto) (0.0-7.0) % Baso % (Auto) (0.0-1.5) % Neut # (Auto) (1.4-5.7) K/uL Lymph # (Auto) (0.6-2.4) K/uL [place] # (Auto) (0.0-0.8) K/uL Eos # (Auto) (0.0-0.7) K/uL Baso # (Auto) (0.0-0.1) K/uL Nucleated RBC % /100WBC Nucleated RBCs # K/uL INR Lactate (0.20-2.00) mmol/L Sodium (136-148) mmol/L Potassium (3.5-5.1) mmol/L Chloride (98-107) mmol/L Carbon Dioxide (21.0-32.0) mmol/L BUN (7.0-18.0) mg/dL Creatinine (0.8-1.3) mg/dL Est Cr Clr Drug Dosing mL/min Estimated GFR (MDRD) ml/min Glucose (74-106) mg/dL POC Glucose (60-110) mg/dL Calcium (8.5-10.1) mg/dL Total Bilirubin (0.2-1.0) mg/dL AST (15-37) IU/L ALT (14-63) IU/L Alkaline Phosphatase (46-116) U/L Total Protein (6.4-8.2) g/dL Albumin (3.4-5.0) g/dL Globulin (2.6-4.0) g/dL Albumin/Globulin Ratio (0.9-1.6) Urine Color YELLOW Urine Appearance CLOUDY Urine pH 5.5 (5.0-8.0) Ur Specific [place] 1.025 (1.001-1.035) Urine Protein NEGATIVE (NEGATIVE) mg/dL Urine Glucose (UA) >=1000 (NEGATIVE) mg/dL Urine Ketones NEGATIVE (NEGATIVE) mg/dL Urine Occult Blood TRACE-INTACT H (NEGATIVE) Urine Nitrite NEGATIVE (NEGATIVE) Urine Bilirubin NEGATIVE (NEGATIVE) Urine Urobilinogen 0.2 (<2.0) EU/dL Ur Leukocyte Esterase SMALL H (NEGATIVE) Urine RBC 0-1 (0-2/HPF) Urine WBC 35-39 (0-5/HPF) Ur Epithelial Cells RARE (NONE-FEW) Urine Bacteria 2+ H (NEGATIVE) Urine Mucus LIGHT (NONE-MOD) Ketones (NEG) SARS-CoV-2 RNA (RICHIE) NEGATIVE (NEGATIVE) Blood Type A POSITIVE Antibody Screen NEGATIVE 03/06/20 Range/Units 23:29 WBC (4.0-11.0) K/uL RBC (4.50-5.90) M/uL Hgb (13.0-17.0) g/dL Hct (38.0-50.0) % MCV (80.0-98.0) fL MCH (27.0-32.0) pg MCHC (31.0-37.0) g/dL RDW Std Deviation (28.0-62.0) fl RDW Coeff of Erika (11.0-15.0) % Plt Count (150-400) K/uL MPV (7.40-12.00) fL Neut % (Auto) (48.0-80.0) % Lymph % (Auto) (16.0-40.0) % [place] % (Auto) (0.0-15.0) % Eos % (Auto) (0.0-7.0) % Baso % (Auto) (0.0-1.5) % Neut # (Auto) (1.4-5.7) K/uL Lymph # (Auto) (0.6-2.4) K/uL [place] # (Auto) (0.0-0.8) K/uL Eos # (Auto) (0.0-0.7) K/uL Baso # (Auto) (0.0-0.1) K/uL Nucleated RBC % /100WBC Nucleated RBCs # K/uL INR Lactate (0.20-2.00) mmol/L Sodium (136-148) mmol/L Potassium (3.5-5.1) mmol/L Chloride (98-107) mmol/L Carbon Dioxide (21.0-32.0) mmol/L BUN (7.0-18.0) mg/dL Creatinine (0.8-1.3) mg/dL Est Cr Clr Drug Dosing mL/min Estimated GFR (MDRD) ml/min Glucose (74-106) mg/dL POC Glucose 196 H (60-110) mg/dL Calcium (8.5-10.1) mg/dL Total Bilirubin (0.2-1.0) mg/dL AST (15-37) IU/L ALT (14-63) IU/L Alkaline Phosphatase (46-116) U/L Total Protein (6.4-8.2) g/dL Albumin (3.4-5.0) g/dL Globulin (2.6-4.0) g/dL Albumin/Globulin Ratio (0.9-1.6) Urine Color Urine Appearance Urine pH (5.0-8.0) Ur Specific [place] (1.001-1.035) Urine Protein (NEGATIVE) mg/dL Urine Glucose (UA) (NEGATIVE) mg/dL Urine Ketones (NEGATIVE) mg/dL Urine Occult Blood (NEGATIVE) Urine Nitrite (NEGATIVE) Urine Bilirubin (NEGATIVE) Urine Urobilinogen (<2.0) EU/dL Ur Leukocyte Esterase (NEGATIVE) Urine RBC (0-2/HPF) Urine WBC (0-5/HPF) Ur Epithelial Cells (NONE-FEW) Urine Bacteria (NEGATIVE) Urine Mucus (NONE-MOD) Ketones (NEG) SARS-CoV-2 RNA (RICHIE) (NEGATIVE) Blood Type Antibody Screen Meds: Medications Discontinued Medications Generic Name Dose Route Start Last Admin Trade Name Freq PRN Reason Stop Dose Admin Diphenhydramine HCl 50 mg 03/06/20 22:05 03/06/20 22:10 Benadryl IVPUSH 03/06/20 22:06 50 mg ONETIME ONE Administration Famotidine 20 mg 03/06/20 21:42 03/06/20 22:01 Pepcid IVPUSH 03/06/20 21:43 20 mg ONETIME ONE Administration Lactated Ringer's 1,000 mls @ 999 mls/hr 03/06/20 21:42 03/06/20 22:00 Ringers, Lactated IV 03/06/20 22:42 999 mls/hr .BOLUS ONE Administration Ceftriaxone Sodium/Dextrose 1 50 mls @ 100 mls/hr 03/06/20 23:25 03/06/20 23:34 gm/ Premix IV 03/06/20 23:54 100 mls/hr ONETIME ONE Administration Iopamidol 75 ml 03/06/20 22:30 03/06/20 22:31 Isovue Multipack-370 (76%) IVPUSH 03/06/20 22:31 75 ml ONETIME STA Administration Morphine Sulfate 4 mg 03/06/20 21:42 03/06/20 21:57 Morphine IM 03/06/20 21:43 Not Given ONETIME ONE Morphine Sulfate 4 mg 03/06/20 21:56 03/06/20 22:04 Morphine IVPUSH 03/06/20 21:57 4 mg ONETIME ONE Administration Ondansetron HCl 4 mg 03/06/20 21:42 03/06/20 22:00 Zofran IVPUSH 03/06/20 21:43 4 mg ONETIME ONE Administration Departure - Departure Time of Disposition: 00:02 Disposition: Home, Self-Care 01 Condition: Fair Clinical Impression: Pyelonephritis - Discharge Information *PRESCRIPTION DRUG MONITORING PROGRAM REVIEWED*: No *COPY OF PRESCRIPTION DRUG MONITORING REPORT IN PATIENT HANY: No Prescriptions: cephALEXin [Keflex] 500 mg PO BID #20 cap Instructions: Pyelonephritis, Adult, [id number] Referrals: Lynsey Palm NP [Primary Care Provider] - Zahra Rodirguez MD [Physician] - Forms: ED Department Discharge Additional Instructions: You were evaluated today on an emergent basis. At this time I do leave you are experiencing the abdominal pain secondary to a kidney and bladder infection. Given that she had itching with amoxicillin we will switch her antibiotics to Keflex which she will need to take twice a day for the next 10 days. If you have any worsening abdominal pain, inability to eat or drink, or fevers please return to the emergency department. It is important that you follow-up with urology given your complex history with urinary tract infections. In addition please follow-up with your primary care physician. Take Tylenol and Motrin for pain relief. [facility] - [facility] [address] [place] [address] [place] [address] The patient is informed of any results of their evaluation and diagnostic workup and all questions are answered. They are given discharge instructions and return precautions. The patient is stable for discharge. The patient states they understand and agree with the plan and that they will return if their symptoms get worse or if they have any new concerns. The following information is given to patients seen in the emergency department who are being discharged to home. This information is to outline your options for follow-up care. We provide all patients seen in our emergency department with a follow-up referral. The need for follow-up, as well as the timing and circumstances, are variable depending upon the specifics of your emergency department visit. If you don't have a primary care physician on staff, we will provide you with a referral. We always advise you to contact your personal physician following an emergency department visit to inform them of the circumstance of the visit and for follow-up with them and/or the need for any referrals to a consulting specialist. The emergency department will also refer you to a specialist when appropriate. This referral assures that you have the opportunity for follow-up care with a specialist. All of these measure are taken in an effort to provide you with optimal care, which includes your follow-up. Under all circumstances we always encourage you to contact your private physician who remains a resource for coordinating your care. When calling for follow-up care, please make the office aware that this follow-up is from your recent emergency room visit. If for any reason you are refused follow-up, please contact the [facility] Emergency Department at and asked to speak to the emergency department charge nurse. Sepsis Event Note (ED) - Evaluation Sepsis Screening Result: No Definite Risk - Focused Exam Vital Signs: Vital Signs Temp Pulse Resp BP Pulse Ox 03/07/20 00:15 36.7 C 96 18 111/77 96 03/06/20 23:25 97 18 120/87 97 03/06/20 21:25 110 H 18 105/81 97 03/06/20 21:00 36.4 C 116 H 18 99/52 L 95 - My Orders Last 24 Hours: My Active Orders 03/07/20 00:03 CULTURE URINE [RM] Stat - Assessment/Plan Last 24 Hours: My Active Orders 03/07/20 00:03 CULTURE URINE [RM] Stat
[2020-03-07 00:20] VITALS: BP 111/77; PULSE 96
== END 2020-03-07 00:15 | disposition home or self-care (01) ==
LOC: MW.ED 20:37
DX: N12 Tubulo-interstitial nephritis, not specified as acute or chronic (principal); E10.9 Type 1 diabetes mellitus without complications; Z20.822 Contact with and (suspected) exposure to COVID-19
CPT/HCPCS: 36415; 74177; 80053; 81001; 82009; 82962; 83605; 85025; 85610; 86850; 86900; 86901; 87086; 87088; 87186; 87635; 96365; 96375; 99284; J0696; J1200; J2270; J2405; J3490; J7120; Q9967; 99283; U0002

== ENCOUNTER 2020-07-30 00:25 | Emergency (ER) | payer MEDICAID ==
--- NOTE | 2020-07-30 00:32 | EDM.PDOC ---
ED HPI GENERAL MEDICAL PROBLEM - General Stated Complaint: nausea vomiting Time Seen by Provider: 07/30/20 00:30 Source of Information: Reports: Patient History Limitations: Reports: No Limitations - History of Present Illness INITIAL COMMENTS - FREE TEXT/NARRATIVE: 24-year-old male possible history of type 1 diabetes, medication noncompliance, recurrent urinary tract infections presents for nausea, vomiting, itchiness. Patient also endorses diffuse abdominal pain. He states that this morning he noticed that his urine "smelled funny" so he took an antibiotic that he found in his bathroom. After taking the antibiotic he realized that it had amoxicillin in it and when he takes amoxicillin he gets very itchy and has stomach problems. He states all day he has been itchy and throwing up. His pain in his abdomen is diffuse. He states compliance with his insulin regimen and notes his blood glucose is typically in the 200s. - Related Data Allergies Allergy/AdvReac Type Severity Reaction Status Date / Time amoxicillin Allergy Mild Nausea and Verified 07/30/20 00:34 Vomiting morphine Allergy Mild Itching Verified 07/30/20 00:35 Home Meds: Home Meds Insulin Aspart [NovoLOG] 5 units SUBCUT TIDAC 07/23/18 [History] Buprenorphine HCl/Naloxone HCl [Zubsolv 5.7-1.4 mg Tablet Sl] 3 tab SL DAILY 12/18/18 [History] Insulin Glarg,Human.Rec.Analog [Lantus] 40 unit SUBCUT DAILY 12/18/18 [History] Amoxicillin/Clavulanate K [Augmentin 875-125 MG] 1 tab PO Q12HR 5 Days #10 tablet 01/31/20 [Rx] Insulin Aspart [NovoLOG] 0 unit SUBCUT Q6H pen 01/31/20 [Rx] Insulin Glarg,Human.Rec.Analog [Lantus Solostar] 20 units SUBCUT BEDTIME pen 01/31/20 [Rx] cephALEXin [Keflex] 500 mg PO BID #20 cap 03/06/20 [Rx] Sulfamethoxazole/Trimethoprim [Bactrim Ds Tablet] 1 each PO BID 7 Days #14 tablet 07/30/20 [Rx] Past Medical History - Past Health History Medical/Surgical History: Denies Medical/Surgical History HEENT History: Reports: Other (See Below) Other HEENT History: ear ache, broken and missing teeth Cardiovascular History: Reports: None Respiratory History: Reports: None Gastrointestinal History: Reports: Irritable Bowel Syndrome Other Gastrointestinal History: gastroparesis Genitourinary History: Reports: Pyelonephritis, Other (See Below) Other Genitourinary History: hydronephrosis, neurogenic bladder Musculoskeletal History: Reports: Fracture Other Musculoskeletal History: Elbow long time ago Neurological History: Reports: None Psychiatric History: Reports: Anxiety, Depression Endocrine/Metabolic History: Reports: Diabetes, Type I Other Endocrine/Metabolic History: non-compliant to DM medications 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 Hematologic History: Reports: None Immunologic History: Reports: None Oncologic (Cancer) History: Reports: None Dermatologic History: Reports: Other (See Below) Other Dermatologic History: dry itchy skin - Infectious Disease History Infectious Disease History: Reports: None - Past Surgical History HEENT Surgical History: Reports: None GI Surgical History: Reports: None Male Surgical History: Reports: None Endocrine Surgical History: Reports: None Musculoskeletal Surgical History: Reports: None Dermatological Surgical History: Reports: None Social & Family History - Family History Family Medical History: No Pertinent Family History OBGYN: Reports: Endocrine/Metabolic: Reports: Diabetes, Type I, Diabetes, type II - Caffeine Use Caffeine Use: Reports: None - Living Situation & Occupation Living situation: Reports: Single, with Family Occupation: Unemployed ED ROS GENERAL - Review of Systems Review Of Systems: Comprehensive ROS is negative, except as noted in HPI. ED EXAM, GENERAL - Physical Exam Exam: See Below Exam Limited By: No Limitations General Appearance: Alert, WD/WN, No Apparent Distress Ears: Hearing Grossly Normal Throat/Mouth: Normal Voice, No Airway Compromise Head: Atraumatic, Normocephalic Neck: Normal Inspection Respiratory/Chest: No Respiratory Distress, Lungs Clear, Normal Breath Sounds, No Accessory Muscle Use Cardiovascular: Normal Peripheral Pulses, Tachycardia GI/Abdominal: Soft, Non-Tender Extremities: Normal Inspection Neurological: Alert, Normal Cognition, Normal Gait Psychiatric: Normal Affect, Normal Mood Skin Exam: Warm, Dry, Intact, Normal Color Course - Vital Signs Last Recorded V/S: Last Vital Signs Temp 97.2 F 07/30/20 00:35 Pulse 104 H 07/30/20 01:57 Resp 18 07/30/20 01:57 BP 141/94 H 07/30/20 01:57 Pulse Ox 96 07/30/20 01:57 - Orders/Labs/Meds Orders: Active Orders 24 hr Category Date Time Status Accu Check [Blood Glucose Check, Bedside] [RC] ONETIME Care 07/30/20 02:35 Active Sodium Chloride 0.9% [Saline Flush] Med 07/30/20 00:54 Active 10 ml FLUSH ASDIRECTED PRN Sodium Chloride 0.9% [Saline Flush] Med 07/30/20 00:54 Active 2.5 ml FLUSH ASDIRECTED PRN Saline Lock Insert [OM.PC] Stat Oth 07/30/20 00:54 Ordered Medication Orders Sodium Chloride (Sodium Chloride 0.9% 10 Ml Syringe) 10 ml FLUSH ASDIRECTED PRN PRN Reason: Keep Vein Open Last Admin: 07/30/20 01:13 Dose: 10 ml Documented by: ELIJAH Sodium Chloride (Sodium Chloride 0.9% 2.5 Ml Syringe) 2.5 ml FLUSH ASDIRECTED PRN PRN Reason: Keep Vein Open Last Admin: 07/30/20 01:14 Dose: 2.5 ml Documented by: ELIJAH Labs: Laboratory Tests 07/30/20 07/30/20 07/30/20 Range/Units 00:53 01:08 01:08 WBC 6.83 (4.0-11.0) K/uL RBC 4.32 L (4.50-5.90) M/uL Hgb 11.1 L (13.0-17.0) g/dL Hct 35.2 L (38.0-50.0) % MCV 81.5 (80.0-98.0) fL MCH 25.7 L (27.0-32.0) pg MCHC 31.5 (31.0-37.0) g/dL RDW Std Deviation 54.1 (28.0-62.0) fl RDW Coeff of Erika 18 H (11.0-15.0) % Plt Count 284 (150-400) K/uL MPV 10.10 (7.40-12.00) fL Neut % (Auto) 71.6 (48.0-80.0) % Lymph % (Auto) 21.1 (16.0-40.0) % [place] % (Auto) 5.6 (0.0-15.0) % Eos % (Auto) 1.3 (0.0-7.0) % Baso % (Auto) 0.4 (0.0-1.5) % Neut # (Auto) 4.9 (1.4-5.7) K/uL Lymph # (Auto) 1.4 (0.6-2.4) K/uL [place] # (Auto) 0.4 (0.0-0.8) K/uL Eos # (Auto) 0.1 (0.0-0.7) K/uL Baso # (Auto) 0.0 (0.0-0.1) K/uL Nucleated RBC % 0.0 /100WBC Nucleated RBCs # 0 K/uL VBG pH (7.31-7.41) VBG pCO2 (41-51) mmHG VBG pO2 mmHG VBG HCO3 (23-28) mEq/L VBG Total CO2 (24-29) mmol/L VBG Base Excess (-2.0-3.0) Sodium (136-148) mmol/L Potassium (3.5-5.1) mmol/L Chloride (98-107) mmol/L Carbon Dioxide (21.0-32.0) mmol/L BUN (7.0-18.0) mg/dL Creatinine (0.8-1.3) mg/dL Est Cr Clr Drug Dosing mL/min Estimated GFR (MDRD) ml/min Glucose (74-106) mg/dL POC Glucose 286 H (70-99) mg/dL Lactic Acid (0.4-2.0) mmol/L Calcium (8.5-10.1) mg/dL Magnesium (1.8-2.4) mg/dL Total Bilirubin (0.2-1.0) mg/dL AST (15-37) IU/L ALT (14-63) IU/L Alkaline Phosphatase (46-116) U/L Total Protein (6.4-8.2) g/dL Albumin (3.4-5.0) g/dL Globulin (2.6-4.0) g/dL Albumin/Globulin Ratio (0.9-1.6) Lipase (73-393) U/L Urine Color YELLOW Urine Appearance SLT CLOUDY Urine pH 6.0 (5.0-8.0) Ur Specific [place] 1.020 (1.001-1.035) Urine Protein 30 H (NEGATIVE) mg/dL Urine Glucose (UA) >=1000 (NEGATIVE) mg/dL Urine Ketones TRACE H (NEGATIVE) mg/dL Urine Occult Blood TRACE-INTACT H (NEGATIVE) Urine Nitrite NEGATIVE (NEGATIVE) Urine Bilirubin NEGATIVE (NEGATIVE) Urine Urobilinogen 0.2 (<2.0) EU/dL Ur Leukocyte Esterase NEGATIVE (NEGATIVE) Urine RBC 1-3 (0-2/HPF) Urine WBC 10-20 (0-5/HPF) Ur Epithelial Cells OCCASIONAL (NONE-FEW) Urine Bacteria 3+ H (NEGATIVE) Ketones (NEG) 07/30/20 07/30/20 07/30/20 Range/Units 01:08 01:08 01:08 WBC (4.0-11.0) K/uL RBC (4.50-5.90) M/uL Hgb (13.0-17.0) g/dL Hct (38.0-50.0) % MCV (80.0-98.0) fL MCH (27.0-32.0) pg MCHC (31.0-37.0) g/dL RDW Std Deviation (28.0-62.0) fl RDW Coeff of Erika (11.0-15.0) % Plt Count (150-400) K/uL MPV (7.40-12.00) fL Neut % (Auto) (48.0-80.0) % Lymph % (Auto) (16.0-40.0) % [place] % (Auto) (0.0-15.0) % Eos % (Auto) (0.0-7.0) % Baso % (Auto) (0.0-1.5) % Neut # (Auto) (1.4-5.7) K/uL Lymph # (Auto) (0.6-2.4) K/uL [place] # (Auto) (0.0-0.8) K/uL Eos # (Auto) (0.0-0.7) K/uL Baso # (Auto) (0.0-0.1) K/uL Nucleated RBC % /100WBC Nucleated RBCs # K/uL VBG pH 7.37 (7.31-7.41) VBG pCO2 49 (41-51) mmHG VBG pO2 < 30 mmHG VBG HCO3 29 H (23-28) mEq/L VBG Total CO2 27 (24-29) mmol/L VBG Base Excess 2.8 (-2.0-3.0) Sodium 138 (136-148) mmol/L Potassium 4.8 (3.5-5.1) mmol/L Chloride 101 (98-107) mmol/L Carbon Dioxide 29.1 (21.0-32.0) mmol/L BUN 21 H (7.0-18.0) mg/dL Creatinine 1.1 (0.8-1.3) mg/dL Est Cr Clr Drug Dosing 81.10 mL/min Estimated GFR (MDRD) > 60.0 ml/min Glucose 422 H (74-106) mg/dL POC Glucose (70-99) mg/dL Lactic Acid 1.0 (0.4-2.0) mmol/L Calcium 9.4 (8.5-10.1) mg/dL Magnesium 2.2 (1.8-2.4) mg/dL Total Bilirubin 0.3 (0.2-1.0) mg/dL AST 15 (15-37) IU/L ALT 19 (14-63) IU/L Alkaline Phosphatase 120 H (46-116) U/L Total Protein 9.1 H (6.4-8.2) g/dL Albumin 2.8 L (3.4-5.0) g/dL Globulin 6.3 H (2.6-4.0) g/dL Albumin/Globulin Ratio 0.4 L (0.9-1.6) Lipase 59 L (73-393) U/L Urine Color Urine Appearance Urine pH (5.0-8.0) Ur Specific [place] (1.001-1.035) Urine Protein (NEGATIVE) mg/dL Urine Glucose (UA) (NEGATIVE) mg/dL Urine Ketones (NEGATIVE) mg/dL Urine Occult Blood (NEGATIVE) Urine Nitrite (NEGATIVE) Urine Bilirubin (NEGATIVE) Urine Urobilinogen (<2.0) EU/dL Ur Leukocyte Esterase (NEGATIVE) Urine RBC (0-2/HPF) Urine WBC (0-5/HPF) Ur Epithelial Cells (NONE-FEW) Urine Bacteria (NEGATIVE) Ketones (NEG) 07/30/20 07/30/20 Range/Units 01:08 02:07 WBC (4.0-11.0) K/uL RBC (4.50-5.90) M/uL Hgb (13.0-17.0) g/dL Hct (38.0-50.0) % MCV (80.0-98.0) fL MCH (27.0-32.0) pg MCHC (31.0-37.0) g/dL RDW Std Deviation (28.0-62.0) fl RDW Coeff of Erika (11.0-15.0) % Plt Count (150-400) K/uL MPV (7.40-12.00) fL Neut % (Auto) (48.0-80.0) % Lymph % (Auto) (16.0-40.0) % [place] % (Auto) (0.0-15.0) % Eos % (Auto) (0.0-7.0) % Baso % (Auto) (0.0-1.5) % Neut # (Auto) (1.4-5.7) K/uL Lymph # (Auto) (0.6-2.4) K/uL [place] # (Auto) (0.0-0.8) K/uL Eos # (Auto) (0.0-0.7) K/uL Baso # (Auto) (0.0-0.1) K/uL Nucleated RBC % /100WBC Nucleated RBCs # K/uL VBG pH (7.31-7.41) VBG pCO2 (41-51) mmHG VBG pO2 mmHG VBG HCO3 (23-28) mEq/L VBG Total CO2 (24-29) mmol/L VBG Base Excess (-2.0-3.0) Sodium (136-148) mmol/L Potassium (3.5-5.1) mmol/L Chloride (98-107) mmol/L Carbon Dioxide (21.0-32.0) mmol/L BUN (7.0-18.0) mg/dL Creatinine (0.8-1.3) mg/dL Est Cr Clr Drug Dosing mL/min Estimated GFR (MDRD) ml/min Glucose (74-106) mg/dL POC Glucose 317 H (70-99) mg/dL Lactic Acid (0.4-2.0) mmol/L Calcium (8.5-10.1) mg/dL Magnesium (1.8-2.4) mg/dL Total Bilirubin (0.2-1.0) mg/dL AST (15-37) IU/L ALT (14-63) IU/L Alkaline Phosphatase (46-116) U/L Total Protein (6.4-8.2) g/dL Albumin (3.4-5.0) g/dL Globulin (2.6-4.0) g/dL Albumin/Globulin Ratio (0.9-1.6) Lipase (73-393) U/L Urine Color Urine Appearance Urine pH (5.0-8.0) Ur Specific [place] (1.001-1.035) Urine Protein (NEGATIVE) mg/dL Urine Glucose (UA) (NEGATIVE) mg/dL Urine Ketones (NEGATIVE) mg/dL Urine Occult Blood (NEGATIVE) Urine Nitrite (NEGATIVE) Urine Bilirubin (NEGATIVE) Urine Urobilinogen (<2.0) EU/dL Ur Leukocyte Esterase (NEGATIVE) Urine RBC (0-2/HPF) Urine WBC (0-5/HPF) Ur Epithelial Cells (NONE-FEW) Urine Bacteria (NEGATIVE) Ketones SMALL H (NEG) Meds: Medications Generic Name Dose Route Start Last Admin Trade Name Freq PRN Reason Stop Dose Admin Sodium Chloride 10 ml 07/30/20 00:54 07/30/20 01:13 Sodium Chloride 0.9% 10 Ml Syringe FLUSH 10 ml ASDIRECTED PRN Administration Keep Vein Open Sodium Chloride 2.5 ml 07/30/20 00:54 07/30/20 01:14 Sodium Chloride 0.9% 2.5 Ml Syringe FLUSH 2.5 ml ASDIRECTED PRN Administration Keep Vein Open Discontinued Medications Generic Name Dose Route Start Last Admin Trade Name Freq PRN Reason Stop Dose Admin Diphenhydramine HCl 50 mg 07/30/20 00:54 07/30/20 01:15 Diphenhydramine 50 Mg/Ml Sdv IVPUSH 07/30/20 00:55 50 mg ONETIME ONE Administration Famotidine 20 mg 07/30/20 00:54 07/30/20 01:13 Famotidine 20 Mg/2 Ml Sdv IVPUSH 07/30/20 00:55 20 mg ONETIME ONE Administration Sodium Chloride 1,000 mls @ 999 mls/hr 07/30/20 00:54 07/30/20 01:12 Normal Saline IV 07/30/20 01:54 999 mls/hr .Bolus ONE Administration Insulin Human Regular 10 unit 07/30/20 01:58 07/30/20 02:04 Insulin Regular, Human 100 Units/Ml 10 Ml Vial IVPUSH 07/30/20 01:59 10 units ONETIME ONE Administration Protocol Ondansetron HCl 4 mg 07/30/20 00:54 07/30/20 01:13 Ondansetron 4 Mg/2 Ml Sdv IVPUSH 07/30/20 00:55 4 mg ONETIME ONE Administration Trimethoprim/Sulfamethoxazole 1 tab 07/30/20 01:58 07/30/20 02:04 Sulfamethoxazole/Trimethoprim 800-160 Mg Tab PO 07/30/20 01:59 1 tab ONETIME ONE Administration - Re-Assessments/Exams Free Text/Narrative Re-Assessment/Exam: 07/30/20 00:58 We will get labs to ensure no evidence of diabetic ketoacidosis. Will give IV fluid bolus as well as Pepcid, Zofran, Benadryl for symptomatic relief. 07/30/20 01:58 Labs reveal hyperglycemia with normal anion gap, pH is normal, no evidence of DKA. Patient's urine is contaminated sample but does have WBCs and considering patient is symptomatic we will treat for UTI. Departure - Departure Time of Disposition: 02:41 Disposition: Home, Self-Care 01 Condition: Good Clinical Impression: Hyperglycemia UTI (urinary tract infection) Qualifiers: Urinary tract infection type: acute cystitis Hematuria presence: with hematuria Qualified Code(s): N30.01 - Acute cystitis with hematuria - Discharge Information Prescriptions: Sulfamethoxazole/Trimethoprim [Bactrim Ds Tablet] 1 each PO BID 7 Days #14 tablet Instructions: Hyperglycemia, Urinary Tract Infection, Adult Referrals: Lynsey Palm [employer]EL[employer] [Primary Care Provider] - Additional Instructions: Your urine shows evidence of a urinary tract infection. Antibiotics were sent to your pharmacy. Your blood sugar is also quite high. This could be due to an underlying infection but you should follow-up with your primary care physician on Friday and make sure your insulin regimen is adequate. The following information is given to patients seen in the emergency department who are being discharged to home. This information is to outline your options for follow-up care. We provide all patients seen in our emergency department with a follow-up referral. The need for follow-up, as well as the timing and circumstances, are variable depending upon the specifics of your emergency department visit. If you don't have a primary care physician on staff, we will provide you with a referral. We always advise you to contact your personal physician following an emergency department visit to inform them of the circumstance of the visit and for follow-up with them and/or the need for any referrals to a consulting specialist. The emergency department will also refer you to a specialist when appropriate. This referral assures that you have the opportunity for follow-up care with a specialist. All of these measure are taken in an effort to provide you with optimal care, which includes your follow-up. Under all circumstances we always encourage you to contact your private physician who remains a resource for coordinating your care. When calling for follow-up care, please make the office aware that this follow-up is from your recent emergency room visit. If for any reason you are refused follow-up, please contact the [facility] Emergency Department at and asked to speak to the emergency department charge nurse. Please follow up with your primary care physician. If you do not have a primary care physician, see below: [facility] [address] [place] [id number] My [facility] [address] [place] [address] [facility] [address] [place] [id number] Sepsis Event Note (ED) - Focused Exam Vital Signs: Vital Signs Temp Pulse Resp BP Pulse Ox 07/30/20 01:57 104 H 18 141/94 H 96 07/30/20 00:35 97.2 F 107 H 18 118/91 H 99 - My Orders Last 24 Hours: My Active Orders 07/30/20 00:54 Sodium Chloride 0.9% [Saline Flush] 10 ml FLUSH ASDIRECTED PRN Sodium Chloride 0.9% [Saline Flush] 2.5 ml FLUSH ASDIRECTED PRN Saline Lock Insert [OM.PC] Stat 07/30/20 02:35 Accu Check [Blood Glucose Check, Bedside] [RC] ONETIME - Assessment/Plan Last 24 Hours: My Active Orders 07/30/20 00:54 Sodium Chloride 0.9% [Saline Flush] 10 ml FLUSH ASDIRECTED PRN Sodium Chloride 0.9% [Saline Flush] 2.5 ml FLUSH ASDIRECTED PRN Saline Lock Insert [OM.PC] Stat 07/30/20 02:35 Accu Check [Blood Glucose Check, Bedside] [RC] ONETIME
[2020-07-30] MEDS ORDERED: Sodium Chloride 0.9% 2.5 ML Syringe FLUSH PRN (00:54)
[2020-07-30] MEDS ORDERED: Sodium Chloride 0.9% 1,000 ML IV ONE (00:54)
[2020-07-30] MEDS ORDERED: diphenhydrAMINE 50 MG/ML SDV IVPUSH ONE (00:54)
[2020-07-30] MEDS ORDERED: Ondansetron 4 MG/2 ML SDV IVPUSH ONE (00:54)
[2020-07-30] MEDS ORDERED: Famotidine 20 MG/2 ML SDV IVPUSH ONE (00:54)
[2020-07-30] MEDS ORDERED: Sodium Chloride 0.9% 10 ML Syringe FLUSH PRN (00:54)
[2020-07-30 01:50] LABS: BLOOD UREA NITROGEN,BUN 21 mg/dL (7.0-18.0); CARBON DIOXIDE,CO2 29.1 mmol/L (21.0-32.0); CHLORIDE,CL 101 mmol/L (98-107); GLUCOSE RANDOM 422 mg/dL (74-106); LIPASE 59 U/L (73-393); POTASSIUM,K 4.8 mmol/L (3.5-5.1); SODIUM,NA 138 mmol/L (136-148)
[2020-07-30] MEDS ORDERED: Insulin Regular, Human 100 Units/ML 10 ML Vial IVPUSH ONE (01:58)
[2020-07-30] MEDS ORDERED: Sulfamethoxazole/Trimethoprim 800-160 MG Tab PO ONE (01:58)
[2020-07-30 02:50] VITALS: BP 99/61; PULSE 92
== END 2020-07-30 02:50 | disposition home or self-care (01) ==
LOC: MW.ED 00:25
DX: N30.01 Acute cystitis with hematuria (principal); E10.65 Type 1 diabetes mellitus with hyperglycemia; Z88.0 Allergy status to penicillin; Z88.6 Allergy status to analgesic agent
CPT/HCPCS: 36415; 80053; 81001; 82009; 82803; 82947; 83605; 83690; 83735; 85025; 96374; 96375; 99284; A9270; J1200; J2405; J3490; J7030; 99283; J1815-GY

== ENCOUNTER 2020-08-01 19:37 | Emergency (ER) | payer MEDICAID ==
[2020-08-01 19:59] VITALS: PULSE 102
[2020-08-01] MEDS ORDERED: Sodium Chloride 0.9% 1,000 ML IV ONE ×2 (20:13→22:50)
[2020-08-01 20:54] LABS: BLOOD UREA NITROGEN,BUN 25 mg/dL (7.0-18.0); CARBON DIOXIDE,CO2 24.9 mmol/L (21.0-32.0); CHLORIDE,CL 93 mmol/L (98-107); POTASSIUM,K 4.8 mmol/L (3.5-5.1); SODIUM,NA 134 mmol/L (136-148)
[2020-08-01 20:57] LABS: GLUCOSE RANDOM 581 mg/dL (74-106)
[2020-08-01] MEDS ORDERED: cefTRIAXone 1 GM in Premix Bag 1 BAG IV ONE (21:32)
[2020-08-01] MEDS ORDERED: Glucagon,Human Recombinant 1 MG Vial IM PRN ×2 (21:34→22:50)
[2020-08-01] MEDS ORDERED: Insulin Regular, Human 100 Units/ML 10 ML Vial SUBCUT ONE (21:34)
[2020-08-01] MEDS ORDERED: 50% Dextrose in Water 50 ML Syringe IVPUSH PRN ×2 (21:34→22:50)
[2020-08-01] MEDS ORDERED: Insulin Regular, Human 100 Units/ML 10 ML Vial SUBCUT SCH (21:45)
--- NOTE | 2020-08-01 21:55 | EDM.PDOC ---
<Randy Juares - Last Filed: 08/01/20 23:59> ED HPI GENERAL MEDICAL PROBLEM - General Chief Complaint: General Stated Complaint: VOMITING ITCHY Time Seen by Provider: 08/01/20 19:39 - Related Data Allergies Allergy/AdvReac Type Severity Reaction Status Date / Time amoxicillin Allergy Mild Nausea and Verified 08/01/20 19:57 Vomiting morphine Allergy Mild Itching Verified 08/01/20 19:57 Home Meds: Home Meds Insulin Aspart [NovoLOG] 5 units SUBCUT TIDAC 07/23/18 [History] Buprenorphine HCl/Naloxone HCl [Zubsolv 5.7-1.4 mg Tablet Sl] 3 tab SL DAILY 12/18/18 [History] Insulin Glarg,Human.Rec.Analog [Lantus] 40 unit SUBCUT DAILY 12/18/18 [History] Amoxicillin/Clavulanate K [Augmentin 875-125 MG] 1 tab PO Q12HR 5 Days #10 tablet 01/31/20 [Rx] Insulin Aspart [NovoLOG] 0 unit SUBCUT Q6H pen 01/31/20 [Rx] Insulin Glarg,Human.Rec.Analog [Lantus Solostar] 20 units SUBCUT BEDTIME pen 01/31/20 [Rx] cephALEXin [Keflex] 500 mg PO BID #20 cap 03/06/20 [Rx] Sulfamethoxazole/Trimethoprim [Bactrim Ds Tablet] 1 each PO BID 7 Days #14 tablet 07/30/20 [Rx] Ciprofloxacin [Ciprofloxacin HCl] 500 mg PO BID 14 Days #28 tab 08/01/20 [Rx] Course - Vital Signs Text/Narrative:: 2234 hrs. patient understands risk taken. Sugar down to 468. He is taking over responsibility for his own continue care in leaving AGAINST MEDICAL ADVICE. He has the capacity to make that decision. 11:59 PM the patient is signing AMA. His sugars down in the 200s. He regulates with sliding scale. He is noncompliant but he understands what he needs to do and has a capacity to do it. I have no reason to hold him against as well. Departure - Departure Time of Disposition: 22:34 Disposition: Against Medical Advice 07 Clinical Impression: Hyperglycemia, Ketonemia, Left against medical advice Uncontrolled type 1 diabetes mellitus Qualifiers: Glycemic state: with hyperglycemia Qualified Code(s): E10.65 - Type 1 diabetes mellitus with hyperglycemia Urinary tract infection Qualifiers: Urinary tract infection type: acute cystitis Hematuria presence: with hematuria Qualified Code(s): N30.01 - Acute cystitis with hematuria - Discharge Information Prescriptions: Ciprofloxacin [Ciprofloxacin HCl] 500 mg PO BID 14 Days #28 tab Instructions: Urinary Tract Infection, Adult, [id number], Hyperglycemia, [id number], Type 1 Diabetes Mellitus, Diagnosis, Adult, [id number], Type 1 Diabetes Mellitus, Self Care, Adult, [id number] Referrals: Lynsey Palm, [employer] [Primary Care Provider] - Forms: ED Department Discharge Additional Instructions: The following information is given to patients seen in the emergency department who are being discharged to home. This information is to outline your options for follow-up care. We provide all patients seen in our emergency department with a follow-up referral. The need for follow-up, as well as the timing and circumstances, are variable depending upon the specifics of your emergency department visit. If you don't have a primary care physician on staff, we will provide you with a referral. We always advise you to contact your personal physician following an emergency department visit to inform them of the circumstance of the visit and for follow-up with them and/or the need for any referrals to a consulting specialist. The emergency department will also refer you to a specialist when appropriate. This referral assures that you have the opportunity for follow-up care with a specialist. All of these measure are taken in an effort to provide you with optimal care, which includes your follow-up. Under all circumstances we always encourage you to contact your private physician who remains a resource for coordinating your care. When calling for follow-up care, please make the office aware that this follow-up is from your recent emergency room visit. If for any reason you are refused follow-up, please contact the [facility] Emergency Department at and asked to speak to the emergency department charge nurse. [facility] [address] [place] [id number] [address] [address] <Patt Turner - Last Filed: 08/04/20 10:13> ED HPI GENERAL MEDICAL PROBLEM - General Source of Information: Reports: Patient History Limitations: Reports: No Limitations - History of Present Illness INITIAL COMMENTS - FREE TEXT/NARRATIVE: HISTORY AND PHYSICAL: History of present illness: Patient is a 24-year-old male presents emergency department secondary to 1 day history of vomiting and abdominal pain and concern of possible DKA with elevated glucose readings and type 1 diabetes. Patient reports he began vomiting yesterday and states he has not been giving himself insulin as he "keeps forg etting ". He states he does have insulin available to him. Patient endorses that he has a history of type 1 diabetes is poorly controlled. Patient states that her sugars have been high lately as he has not been good with his insulin. Patient states lately that her sugars have been in the 300s. Patient states that he has not been urinating more than usual lately but states his urine is foul smelling. Patient denies fever, chills, chest pain, shortness of breath, or cough. Denies headache, neck stiff ness, change in vision, syncope, or near syncope. Denies diarrhea, constipation, or dysuria. Has not noted any blood in urine or stool. Patient has been eating and drinking appropriately. Review of systems: As per history of present illness and below otherwise all systems reviewed and negative. Past medical history: As per history of present illness and as reviewed below otherwise noncontributory. Surgical history: As per history of present illness and as reviewed below otherwise noncontributory. Social history: See social history for further information Family history: As per history of present illness and as reviewed below otherwise noncontributory. Physical exam: General: Patient is alert, oriented, and in no acute distress. Patient sitting comfortably on exam table. Patient is noted to be tachycardic at 102 bpm but otherwise vitals are stable and reviewed by me. HEENT: Atraumatic, normocephalic, pupils equal and reactive bilaterally, negative for conjunctival pallor or scleral icterus, mucous membranes moist, TMs normal bilaterally, throat clear, neck supple, nontender, trachea midline. No drooling or trismus noted. No meningeal signs. No hot potato voice noted. Lungs: Clear to auscultation, breath sounds equal bilaterally, chest nontender. Heart: S1S2, regular rate and rhythm without overt murmur Abdomen: Soft and nondistended but diffusely tender to palpation. Negative for masses or hepatosplenomegaly. Negative for costovertebral tenderness. Pelvis: Stable nontender. Genitourinary: Deferred. Rectal: Deferred. Skin: Intact, warm, dry. No lesions or rashes noted. Extremities: Atraumatic, negative for cords or calf pain. Neurovascular unremarkable. Neuro: Awake, alert, oriented. Cranial nerves II through XII unremarkable. Cerebellum unremarkable. Motor and sensory unremarkable throughout. Exam nonfocal. Notes: Patient is a 24-year-old male presents emergency department secondary to a 1 day history of vomiting and abdominal pain with concern of high blood sugars with known Type 1 DM. Upon arrival to the emergency room, patient is noted to be tachycardic at 102 bpm but is otherwise vitally stable and well appearing on exam. POC glucose over the ability of the monitor at >500, Will obtain CBC, CMP, VBG and UA with culture, blood ketone. 20cc/kg bolus of NS initiated. Patient CBC shows mild derangements but otherwise unremarkable. Patient's CMP shows sodium mildly decreased at 134, chloride mildly decreased at 93, BUN elevated at 25, creatinine elevated at 1.4, glucose elevated at 581. Patient's VBG shows normal pH at 7.37. Patient's UA shows urine protein high at 30, ketones high at 15, occult blood large, leukocyte esterase trace. WBC 20-30 RBC 5-10. Impression: Acute cystitis. Will give dose of IV Rocephin while in the ED Blood ketones are small. At this time, admission for observation and continuation of insulin with close glucose monitoring thoroughly recommended to patient but he declines at this time recommending to leave the emergency room AGAINST MEDICAL ADVICE. All risks versus benefits of not being admitted to the hospital thoroughly discussed with patient and expresses understanding. He is agreeable to monitoring his blood sugars after subQ insulin is given here in the ED but declines admission. Dr. Juares has assumed care of patient at 21:00 following continual glucose checks s/p SUBQ insulin. Voices understanding. Denies any further questions or concerns at this time. Diagnostics: CBC, CMP, VBG, UA with culture, blood ketone, POC glucose Therapeutics: NS, insulin, Rocephin, Zofran, Toradol Prescription: Ciprofloxacin Impression: Uncontrolled type 1 diabetes with hyperglycemia Ketonemia Urinary tract infection Medication non compliance Left Against medical advice Plan: Patient left the ED against medical advice Definitive disposition and diagnosis as appropriate pending reevaluation and review of above. Abdomen Pain Score (Numeric/FACES): 8 Past Medical History - Past Health History Medical/Surgical History: Denies Medical/Surgical History HEENT History: Reports: None Other HEENT History: ear ache, broken and missing teeth Cardiovascular History: Reports: None Respiratory History: Reports: None Gastrointestinal History: Reports: Irritable Bowel Syndrome Other Gastrointestinal History: gastroparesis Genitourinary History: Reports: Pyelonephritis, Other (See Below) Other Genitourinary History: hydronephrosis, neurogenic bladder Musculoskeletal History: Reports: Fracture Other Musculoskeletal History: Elbow long time ago Neurological History: Reports: None Psychiatric History: Reports: Anxiety, Depression Endocrine/Metabolic History: Reports: Diabetes, Type I Other Endocrine/Metabolic History: non-compliant to DM medications Insulin Pump Model and Dialysis Chief Equipment Technician: None Hematologic History: Reports: None Immunologic History: Reports: None Oncologic (Cancer) History: Reports: None Dermatologic History: Reports: Other (See Below) Other Dermatologic History: dry itchy skin - Infectious Disease History Infectious Disease History: Reports: None - Past Surgical History Head Surgeries/Procedures: Reports: None HEENT Surgical History: Reports: None GI Surgical History: Reports: None Male Surgical History: Reports: None Endocrine Surgical History: Reports: None Musculoskeletal Surgical History: Reports: None Dermatological Surgical History: Reports: None Social & Family History - Family History Family Medical History: No Pertinent Family History OBGYN: Reports: Endocrine/Metabolic: Reports: Diabetes, Type I, Diabetes, type II - Caffeine Use Caffeine Use: Reports: None - Living Situation & Occupation Living situation: Reports: Single, with Family Occupation: Unemployed ED ROS GENERAL - Review of Systems Review Of Systems: Comprehensive ROS is negative, except as noted in HPI. ED EXAM, GENERAL - Physical Exam Exam: See Below (see dictation) Course - Vital Signs Last Recorded V/S: Last Vital Signs Temp 97 F 08/01/20 19:55 Pulse 102 H 08/02/20 00:09 Resp 18 08/01/20 19:55 BP 156/103 H 08/02/20 00:09 Pulse Ox 100 08/02/20 00:09 - Orders/Labs/Meds Labs: Laboratory Tests 08/01/20 08/01/20 08/01/20 Range/Units 20:25 20:25 20:25 WBC 6.44 (4.0-11.0) K/uL RBC 4.03 L (4.50-5.90) M/uL Hgb 10.3 L (13.0-17.0) g/dL Hct 33.0 L (38.0-50.0) % MCV 81.9 (80.0-98.0) fL MCH 25.6 L (27.0-32.0) pg MCHC 31.2 (31.0-37.0) g/dL RDW Std Deviation 52.6 (28.0-62.0) fl RDW Coeff of Erika 18 H (11.0-15.0) % Plt Count 303 (150-400) K/uL MPV 9.80 (7.40-12.00) fL Neut % (Auto) 77.1 (48.0-80.0) % Lymph % (Auto) 18.5 (16.0-40.0) % Emmet % (Auto) 3.4 (0.0-15.0) % Eos % (Auto) 0.5 (0.0-7.0) % Baso % (Auto) 0.5 (0.0-1.5) % Neut # (Auto) 5.0 (1.4-5.7) K/uL Lymph # (Auto) 1.2 (0.6-2.4) K/uL Emmet # (Auto) 0.2 (0.0-0.8) K/uL Eos # (Auto) 0.0 (0.0-0.7) K/uL Baso # (Auto) 0.0 (0.0-0.1) K/uL Nucleated RBC % 0.0 /100WBC Nucleated RBCs # 0 K/uL VBG pH (7.31-7.41) VBG pCO2 (41-51) mmHG VBG pO2 mmHG VBG HCO3 (23-28) mEq/L VBG Total CO2 (24-29) mmol/L VBG Base Excess (-2.0-3.0) Sodium 134 L (136-148) mmol/L Potassium 4.8 (3.5-5.1) mmol/L Chloride 93 L (98-107) mmol/L Carbon Dioxide 24.9 (21.0-32.0) mmol/L BUN 25 H (7.0-18.0) mg/dL Creatinine 1.4 H (0.8-1.3) mg/dL Est Cr Clr Drug Dosing 63.72 mL/min Estimated GFR (MDRD) > 60.0 ml/min Glucose 581 H* (74-106) mg/dL POC Glucose (70-99) mg/dL Calcium 9.3 (8.5-10.1) mg/dL Total Bilirubin 0.4 (0.2-1.0) mg/dL AST 14 L (15-37) IU/L ALT 17 (14-63) IU/L Alkaline Phosphatase 116 (46-116) U/L Total Protein 9.1 H (6.4-8.2) g/dL Albumin 2.9 L (3.4-5.0) g/dL Globulin 6.2 H (2.6-4.0) g/dL Albumin/Globulin Ratio 0.5 L (0.9-1.6) Urine Color Urine Appearance Urine pH (5.0-8.0) Ur Specific [place] (1.001-1.035) Urine Protein (NEGATIVE) mg/dL Urine Glucose (UA) (NEGATIVE) mg/dL Urine Ketones (NEGATIVE) mg/dL Urine Occult Blood (NEGATIVE) Urine Nitrite (NEGATIVE) Urine Bilirubin (NEGATIVE) Urine Urobilinogen (<2.0) EU/dL Ur Leukocyte Esterase (NEGATIVE) Urine RBC (0-2/HPF) Urine WBC (0-5/HPF) Ur Epithelial Cells (NONE-FEW) Urine Bacteria (NEGATIVE) Ketones SMALL H (NEG) 08/01/20 08/01/20 08/01/20 Range/Units 20:25 20:26 20:28 WBC (4.0-11.0) K/uL RBC (4.50-5.90) M/uL Hgb (13.0-17.0) g/dL Hct (38.0-50.0) % MCV (80.0-98.0) fL MCH (27.0-32.0) pg MCHC (31.0-37.0) g/dL RDW Std Deviation (28.0-62.0) fl RDW Coeff of Erika (11.0-15.0) % Plt Count (150-400) K/uL MPV (7.40-12.00) fL Neut % (Auto) (48.0-80.0) % Lymph % (Auto) (16.0-40.0) % Emmet % (Auto) (0.0-15.0) % Eos % (Auto) (0.0-7.0) % Baso % (Auto) (0.0-1.5) % Neut # (Auto) (1.4-5.7) K/uL Lymph # (Auto) (0.6-2.4) K/uL Emmet # (Auto) (0.0-0.8) K/uL Eos # (Auto) (0.0-0.7) K/uL Baso # (Auto) (0.0-0.1) K/uL Nucleated RBC % /100WBC Nucleated RBCs # K/uL VBG pH 7.37 (7.31-7.41) VBG pCO2 47 (41-51) mmHG VBG pO2 < 30 mmHG VBG HCO3 27 (23-28) mEq/L VBG Total CO2 26 (24-29) mmol/L VBG Base Excess 1.6 (-2.0-3.0) Sodium (136-148) mmol/L Potassium (3.5-5.1) mmol/L Chloride (98-107) mmol/L Carbon Dioxide (21.0-32.0) mmol/L BUN (7.0-18.0) mg/dL Creatinine (0.8-1.3) mg/dL Est Cr Clr Drug Dosing mL/min Estimated GFR (MDRD) ml/min Glucose (74-106) mg/dL POC Glucose > 519 H* (70-99) mg/dL Calcium (8.5-10.1) mg/dL Total Bilirubin (0.2-1.0) mg/dL AST (15-37) IU/L ALT (14-63) IU/L Alkaline Phosphatase (46-116) U/L Total Protein (6.4-8.2) g/dL Albumin (3.4-5.0) g/dL Globulin (2.6-4.0) g/dL Albumin/Globulin Ratio (0.9-1.6) Urine Color YELLOW Urine Appearance SLT CLOUDY Urine pH 5.5 (5.0-8.0) Ur Specific [place] 1.010 (1.001-1.035) Urine Protein 30 H (NEGATIVE) mg/dL Urine Glucose (UA) >=1000 (NEGATIVE) mg/dL Urine Ketones 15 H (NEGATIVE) mg/dL Urine Occult Blood LARGE H (NEGATIVE) Urine Nitrite NEGATIVE (NEGATIVE) Urine Bilirubin NEGATIVE (NEGATIVE) Urine Urobilinogen 0.2 (<2.0) EU/dL Ur Leukocyte Esterase TRACE H (NEGATIVE) Urine RBC 5-10 (0-2/HPF) Urine WBC 20-30 (0-5/HPF) Ur Epithelial Cells RARE (NONE-FEW) Urine Bacteria 3+ H (NEGATIVE) Ketones (NEG) 08/01/20 08/01/20 08/02/20 Range/Units 21:39 22:40 00:01 WBC (4.0-11.0) K/uL RBC (4.50-5.90) M/uL Hgb (13.0-17.0) g/dL Hct (38.0-50.0) % MCV (80.0-98.0) fL MCH (27.0-32.0) pg MCHC (31.0-37.0) g/dL RDW Std Deviation (28.0-62.0) fl RDW Coeff of Erika (11.0-15.0) % Plt Count (150-400) K/uL MPV (7.40-12.00) fL Neut % (Auto) (48.0-80.0) % Lymph % (Auto) (16.0-40.0) % Emmet % (Auto) (0.0-15.0) % Eos % (Auto) (0.0-7.0) % Baso % (Auto) (0.0-1.5) % Neut # (Auto) (1.4-5.7) K/uL Lymph # (Auto) (0.6-2.4) K/uL Emmet # (Auto) (0.0-0.8) K/uL Eos # (Auto) (0.0-0.7) K/uL Baso # (Auto) (0.0-0.1) K/uL Nucleated RBC % /100WBC Nucleated RBCs # K/uL VBG pH (7.31-7.41) VBG pCO2 (41-51) mmHG VBG pO2 mmHG VBG HCO3 (23-28) mEq/L VBG Total CO2 (24-29) mmol/L VBG Base Excess (-2.0-3.0) Sodium (136-148) mmol/L Potassium (3.5-5.1) mmol/L Chloride (98-107) mmol/L Carbon Dioxide (21.0-32.0) mmol/L BUN (7.0-18.0) mg/dL Creatinine (0.8-1.3) mg/dL Est Cr Clr Drug Dosing mL/min Estimated GFR (MDRD) ml/min Glucose (74-106) mg/dL POC Glucose 468 H* 426 H* 271 H (70-99) mg/dL Calcium (8.5-10.1) mg/dL Total Bilirubin (0.2-1.0) mg/dL AST (15-37) IU/L ALT (14-63) IU/L Alkaline Phosphatase (46-116) U/L Total Protein (6.4-8.2) g/dL Albumin (3.4-5.0) g/dL Globulin (2.6-4.0) g/dL Albumin/Globulin Ratio (0.9-1.6) Urine Color Urine Appearance Urine pH (5.0-8.0) Ur Specific [place] (1.001-1.035) Urine Protein (NEGATIVE) mg/dL Urine Glucose (UA) (NEGATIVE) mg/dL Urine Ketones (NEGATIVE) mg/dL Urine Occult Blood (NEGATIVE) Urine Nitrite (NEGATIVE) Urine Bilirubin (NEGATIVE) Urine Urobilinogen (<2.0) EU/dL Ur Leukocyte Esterase (NEGATIVE) Urine RBC (0-2/HPF) Urine WBC (0-5/HPF) Ur Epithelial Cells (NONE-FEW) Urine Bacteria (NEGATIVE) Ketones (NEG) Meds: Medications Discontinued Medications Generic Name Dose Route Start Last Admin Trade Name Freq PRN Reason Stop Dose Admin Dextrose/Water 50 ml 08/01/20 21:34 50% Dextrose In Water 50 Ml Syringe IVPUSH ASDIRECTED PRN Hypoglycemia Dextrose/Water 50 ml 08/01/20 22:50 50% Dextrose In Water 50 Ml Syringe IVPUSH ASDIRECTED PRN Hypoglycemia Diphenhydramine HCl 25 mg 08/01/20 22:15 08/01/20 22:33 Diphenhydramine 50 Mg/Ml Sdv IVPUSH 08/01/20 22:16 25 mg ONETIME ONE Administration Diphenhydramine HCl 25 mg 08/01/20 23:17 08/02/20 00:00 Diphenhydramine 50 Mg/Ml Sdv IVPUSH 08/01/20 23:18 25 mg ONETIME ONE Administration Glucagon 1 mg 08/01/20 21:34 Glucagon,Human Recombinant 1 Mg Vial IM ASDIRECTED PRN Hypoglycemia Glucagon 1 mg 08/01/20 22:50 Glucagon,Human Recombinant 1 Mg Vial IM ASDIRECTED PRN Hypoglycemia Sodium Chloride 1,000 mls @ 999 mls/hr 08/01/20 20:13 08/01/20 20:39 Normal Saline IV 08/01/20 21:13 999 mls/hr BOLUS ONE Administration Ceftriaxone Sodium/Dextrose 1 50 mls @ 100 mls/hr 08/01/20 21:32 08/01/20 22:11 gm/ Premix IV 08/01/20 22:01 100 mls/hr ONETIME ONE Administration Sodium Chloride 1,000 mls @ 999 mls/hr 08/01/20 22:50 08/01/20 23:13 Normal Saline IV 08/01/20 23:50 999 mls/hr .Bolus ONE Administration Insulin Human Regular 10 unit 08/01/20 21:34 08/01/20 22:16 Insulin Regular, Human 100 Units/Ml 10 Ml Vial SUBCUT 08/01/20 21:35 Not Given ONETIME ONE Protocol Insulin Human Regular 4 unit 08/01/20 21:45 08/01/20 22:13 Insulin Regular, Human 100 Units/Ml 10 Ml Vial SUBCUT 4 units ASDIRECTED AUGUSTINE Administration Protocol Insulin Human Regular 10 unit 08/01/20 22:50 08/01/20 23:13 Insulin Regular, Human 100 Units/Ml 10 Ml Vial IVPUSH 08/01/20 22:51 10 units ONETIME ONE Administration Protocol Ketorolac Tromethamine 15 mg 08/01/20 21:58 08/01/20 22:12 Ketorolac 30 Mg/Ml Sdv IVPUSH 08/01/20 21:59 15 mg ONETIME ONE Administration Ondansetron HCl 4 mg 08/01/20 21:58 08/01/20 22:12 Ondansetron 4 Mg/2 Ml Sdv IVPUSH 08/01/20 21:59 4 mg ONETIME ONE Administration Sepsis Event Note (ED) - Evaluation Sepsis Screening Result: No Definite Risk
[2020-08-01] MEDS ORDERED: Ondansetron 4 MG/2 ML SDV IVPUSH ONE (21:58)
[2020-08-01] MEDS ORDERED: Ketorolac 30 MG/ML SDV IVPUSH ONE (21:58)
[2020-08-01] MEDS ORDERED: diphenhydrAMINE 50 MG/ML SDV IVPUSH ONE ×2 (22:15→23:17)
[2020-08-01] MEDS ORDERED: Insulin Regular, Human 100 Units/ML 10 ML Vial IVPUSH ONE (22:50)
[2020-08-02 00:11] VITALS: BP 156/103
== END 2020-08-02 00:17 | disposition left against medical advice (07) ==
LOC: MW.ED 19:37
DX: N30.01 Acute cystitis with hematuria (principal); E10.65 Type 1 diabetes mellitus with hyperglycemia; E71.32 Disorders of ketone metabolism; Z53.8 Procedure and treatment not carried out for other reasons; Z91.19 Patient's noncompliance with other medical treatment and regimen
CPT/HCPCS: 36415; 80053; 81001; 82009; 82803; 82947; 85025; 87086; 96365; 96375; 96376; 99284; J0696; J1200; J1885; J2405; J7030; 87088; 87186; J1815-GY

== ENCOUNTER 2020-08-19 00:59 | Emergency (ER) | payer MEDICAID ==
[2020-08-19] MEDS ORDERED: Lactated Ringers 1,000 ML IV ONE ×2 (01:06→02:09)
[2020-08-19] MEDS ORDERED: Sodium Chloride 0.9% 2.5 ML Syringe FLUSH PRN (01:06)
[2020-08-19] MEDS ORDERED: Ondansetron 4 MG/2 ML SDV IVPUSH ONE ×2 (01:06→01:58)
[2020-08-19] MEDS ORDERED: Sodium Chloride 0.9% 10 ML Syringe FLUSH PRN (01:06)
[2020-08-19] MEDS ORDERED: diphenhydrAMINE 50 MG/ML SDV IVPUSH ONE (01:22)
[2020-08-19 01:35] LABS: BLOOD UREA NITROGEN,BUN 25 mg/dL (7.0-18.0); CARBON DIOXIDE,CO2 26.9 mmol/L (21.0-32.0); CHLORIDE,CL 93 mmol/L (98-107); LIPASE 93 U/L (73-393); POTASSIUM,K 4.8 mmol/L (3.5-5.1); SODIUM,NA 129 mmol/L (136-148)
--- NOTE | 2020-08-19 01:36 | EDM.PDOC ---
ED HPI GENERAL MEDICAL PROBLEM - General Chief Complaint: Diabetic Complaint Stated Complaint: DIABETIC; GOING INTO DKA Time Seen by Provider: 08/19/20 01:01 Source of Information: Reports: Patient History Limitations: Reports: No Limitations - History of Present Illness INITIAL COMMENTS - FREE TEXT/NARRATIVE: 24-year-old male with history of DM 1, DKA, UTI, neurogenic bladder presents with 2 episodes of vomiting 1 hour ago. He is concerned he may be going into DKA. He is currently taking cephalexin for UTI, he accidentally took his old prescription of amoxicillin 3 hours ago, which he is allergic to, he started feeling itchy diffusely and nauseous and vomiting. He vomited twice and started developing diffuse abdominal aching pain 3 hours ago. Denies fever, chills, chest pain, shortness of breath. he gave herself 9 units of NovoLog before coming in. ROS: A 10-point review of systems, other than pertinent positives and negatives as stated per HPI, is otherwise negative Past medical history: No additional pertinent history Past Surgical history: No additional pertinent history Social history: No additional pertinent history Family history: No additional pertinent history PHYSICAL EXAM General: AOx4, GCS = 15, moderate distress HEENT: dry mucous membrane Neck: supple, no meningismus, no Kernig or Brudzinski Cardiac: S1S2 tachycardia Respiratory: CTAB, no crackles or rales, no wheezing Abdomen: Soft, mild diffuse tenderness, no rebound or guarding, nondistended, no pulsatile mass. Back: nontender Musculoskeletal: NVI distally, no deformity Neuro: No focal deficits, CN 2 - 12 WNL. - Related Data Allergies Allergy/AdvReac Type Severity Reaction Status Date / Time amoxicillin Allergy Mild Nausea and Verified 08/19/20 01:26 Vomiting morphine Allergy Mild Itching Verified 08/19/20 01:26 Home Meds: Home Meds Insulin Aspart [NovoLOG] 5 units SUBCUT TIDAC 07/23/18 [History] Buprenorphine HCl/Naloxone HCl [Zubsolv 5.7-1.4 mg Tablet Sl] 3 tab SL DAILY 12/18/18 [History] Insulin Glarg,Human.Rec.Analog [Lantus] 40 unit SUBCUT DAILY 12/18/18 [History] Amoxicillin/Clavulanate K [Augmentin 875-125 MG] 1 tab PO Q12HR 5 Days #10 tablet 01/31/20 [Rx] Insulin Aspart [NovoLOG] 0 unit SUBCUT Q6H pen 01/31/20 [Rx] Insulin Glarg,Human.Rec.Analog [Lantus Solostar] 20 units SUBCUT BEDTIME pen 01/31/20 [Rx] cephALEXin [Keflex] 500 mg PO BID #20 cap 03/06/20 [Rx] Sulfamethoxazole/Trimethoprim [Bactrim Ds Tablet] 1 each PO BID 7 Days #14 tablet 07/30/20 [Rx] Ciprofloxacin [Ciprofloxacin HCl] 500 mg PO BID 14 Days #28 tab 08/01/20 [Rx] Ondansetron [Zofran ODT] 4 mg PO Q6H PRN #12 tab.dis 08/19/20 [Rx] Past Medical History - Past Health History Medical/Surgical History: Denies Medical/Surgical History HEENT History: Reports: None Other HEENT History: ear ache, broken and missing teeth Cardiovascular History: Reports: None Respiratory History: Reports: None Gastrointestinal History: Reports: Irritable Bowel Syndrome Other Gastrointestinal History: gastroparesis Genitourinary History: Reports: Pyelonephritis, Other (See Below) Other Genitourinary History: hydronephrosis, neurogenic bladder Musculoskeletal History: Reports: Fracture Other Musculoskeletal History: Elbow long time ago Neurological History: Reports: None Psychiatric History: Reports: Anxiety, Depression Endocrine/Metabolic History: Reports: Diabetes, Type I Other Endocrine/Metabolic History: non-compliant to DM medications Insulin Pump Model and Newspaper Stuffer: None Hematologic History: Reports: None Immunologic History: Reports: None Oncologic (Cancer) History: Reports: None Dermatologic History: Reports: Other (See Below) Other Dermatologic History: dry itchy skin - Infectious Disease History Infectious Disease History: Reports: None - Past Surgical History Head Surgeries/Procedures: Reports: None HEENT Surgical History: Reports: None GI Surgical History: Reports: None Male Surgical History: Reports: None Endocrine Surgical History: Reports: None Musculoskeletal Surgical History: Reports: None Dermatological Surgical History: Reports: None Social & Family History - Family History Family Medical History: No Pertinent Family History OBGYN: Reports: Endocrine/Metabolic: Reports: Diabetes, Type I, Diabetes, type II - Tobacco Use Tobacco Use Status *Q: Former Tobacco User Used Tobacco, but Quit: Yes Month/Year Tobacco Last Used: 2020 - Caffeine Use Caffeine Use: Reports: Coffee, Energy Drinks, Soda, Tea - Recreational Drug Use Recreational Drug Use: No - Living Situation & Occupation Living situation: Reports: Single, with Family Occupation: Unemployed ED ROS GENERAL - Review of Systems Review Of Systems: See Below (see dictation) ED EXAM GENERAL NO PERIP PULSE - Physical Exam Exam: See Below (see dictation) Course - Vital Signs Last Recorded V/S: Last Vital Signs Temp 98.1 F 08/19/20 01:23 Pulse 117 H 08/19/20 02:05 Resp 20 08/19/20 02:05 BP 170/107 H 08/19/20 02:05 Pulse Ox 99 08/19/20 02:05 - Orders/Labs/Meds Orders: Active Orders 24 hr Category Date Time Status Cardiac Monitoring [RC] . DIRECTED Care 08/19/20 01:06 Active Pulse Oximetry [RC] ASDIRECTED Care 08/19/20 01:06 Active Dextrose 50% in Water Med 08/19/20 01:48 Active 50 ml IVPUSH ASDIRECTED PRN Dextrose 50% in Water Med 08/19/20 02:32 Active 50 ml IVPUSH ASDIRECTED PRN Glucagon,Human Recombinant [GlucaGen] Med 08/19/20 01:48 Active 1 mg IM ASDIRECTED PRN Glucagon,Human Recombinant [GlucaGen] Med 08/19/20 02:32 Active 1 mg IM ASDIRECTED PRN Sodium Chloride 0.9% [Saline Flush] Med 08/19/20 01:06 Active 10 ml FLUSH ASDIRECTED PRN Sodium Chloride 0.9% [Saline Flush] Med 08/19/20 01:06 Active 2.5 ml FLUSH ASDIRECTED PRN Saline Lock Insert [OM.PC] Stat Oth 08/19/20 01:06 Ordered Medication Orders Dextrose/Water (50% Dextrose In Water 50 Ml Syringe) 50 ml IVPUSH ASDIRECTED PRN PRN Reason: Hypoglycemia Dextrose/Water (50% Dextrose In Water 50 Ml Syringe) 50 ml IVPUSH ASDIRECTED PRN PRN Reason: Hypoglycemia Glucagon (Glucagon,Human Recombinant 1 Mg Vial) 1 mg IM ASDIRECTED PRN PRN Reason: Hypoglycemia Glucagon (Glucagon,Human Recombinant 1 Mg Vial) 1 mg IM ASDIRECTED PRN PRN Reason: Hypoglycemia Sodium Chloride (Sodium Chloride 0.9% 10 Ml Syringe) 10 ml FLUSH ASDIRECTED PRN PRN Reason: Keep Vein Open Last Admin: 08/19/20 01:23 Dose: 10 ml Documented by: DANIEL Sodium Chloride (Sodium Chloride 0.9% 2.5 Ml Syringe) 2.5 ml FLUSH ASDIRECTED PRN PRN Reason: Keep Vein Open Last Admin: 08/19/20 01:23 Dose: 2.5 ml Documented by: DANIEL Labs: Laboratory Tests 08/19/20 08/19/20 08/19/20 Range/Units 01:09 01:09 01:09 WBC 5.66 (4.0-11.0) K/uL RBC 4.05 L (4.50-5.90) M/uL Hgb 10.3 L (13.0-17.0) g/dL Hct 33.4 L (38.0-50.0) % MCV 82.5 (80.0-98.0) fL MCH 25.4 L (27.0-32.0) pg MCHC 30.8 L (31.0-37.0) g/dL RDW Std Deviation 45.7 (28.0-62.0) fl RDW Coeff of Erika 16 H (11.0-15.0) % Plt Count 352 (150-400) K/uL MPV 9.50 (7.40-12.00) fL Neut % (Auto) 72.9 (48.0-80.0) % Lymph % (Auto) 21.6 (16.0-40.0) % Brown % (Auto) 3.2 (0.0-15.0) % Eos % (Auto) 1.8 (0.0-7.0) % Baso % (Auto) 0.5 (0.0-1.5) % Neut # (Auto) 4.1 (1.4-5.7) K/uL Lymph # (Auto) 1.2 (0.6-2.4) K/uL Brown # (Auto) 0.2 (0.0-0.8) K/uL Eos # (Auto) 0.1 (0.0-0.7) K/uL Baso # (Auto) 0.0 (0.0-0.1) K/uL Sodium 129 L (136-148) mmol/L Potassium 4.8 (3.5-5.1) mmol/L Chloride 93 L (98-107) mmol/L Carbon Dioxide 26.9 (21.0-32.0) mmol/L BUN 25 H (7.0-18.0) mg/dL Creatinine 1.6 H (0.8-1.3) mg/dL Est Cr Clr Drug Dosing 55.75 mL/min Estimated GFR (MDRD) 54.3 ml/min Glucose 870 H* (74-106) mg/dL POC Glucose (70-99) mg/dL Calcium 9.5 (8.5-10.1) mg/dL Phosphorus 3.9 (2.6-4.7) mg/dL Magnesium 2.2 (1.8-2.4) mg/dL Total Bilirubin 0.2 (0.2-1.0) mg/dL AST 9 L (15-37) IU/L ALT 18 (14-63) IU/L Alkaline Phosphatase 138 H (46-116) U/L Total Protein 9.0 H (6.4-8.2) g/dL Albumin 3.0 L (3.4-5.0) g/dL Globulin 6.0 H (2.6-4.0) g/dL Albumin/Globulin Ratio 0.5 L (0.9-1.6) Lipase 93 (73-393) U/L Urine Color Urine Appearance Urine pH (5.0-8.0) Ur Specific Corona (1.001-1.035) Urine Protein (NEGATIVE) mg/dL Urine Glucose (UA) (NEGATIVE) mg/dL Urine Ketones (NEGATIVE) mg/dL Urine Occult Blood (NEGATIVE) Urine Nitrite (NEGATIVE) Urine Bilirubin (NEGATIVE) Urine Urobilinogen (<2.0) EU/dL Ur Leukocyte Esterase (NEGATIVE) Urine RBC (0-2/HPF) Urine WBC (0-5/HPF) Ur Epithelial Cells (NONE-FEW) Urine Bacteria (NEGATIVE) Urine Opiates Screen (NEGATIVE) Ur Oxycodone Screen (NEGATIVE) Urine Methadone Screen (NEGATIVE) Ur Barbiturates Screen (NEGATIVE) Ur Phencyclidine Scrn (NEGATIVE) Ur Amphetamine Screen (NEGATIVE) U Methamphetamines Scrn (NEGATIVE) U Benzodiazepines Scrn (NEGATIVE) U Cocaine Metab Screen (NEGATIVE) U Marijuana (THC) Screen (NEGATIVE) Ethyl Alcohol <3 mg/dL Ketones NEGATIVE (NEG) 08/19/20 08/19/20 08/19/20 Range/Units 01:09 01:18 01:18 WBC (4.0-11.0) K/uL RBC (4.50-5.90) M/uL Hgb (13.0-17.0) g/dL Hct (38.0-50.0) % MCV (80.0-98.0) fL MCH (27.0-32.0) pg MCHC (31.0-37.0) g/dL RDW Std Deviation (28.0-62.0) fl RDW Coeff of Erika (11.0-15.0) % Plt Count (150-400) K/uL MPV (7.40-12.00) fL Neut % (Auto) (48.0-80.0) % Lymph % (Auto) (16.0-40.0) % Brown % (Auto) (0.0-15.0) % Eos % (Auto) (0.0-7.0) % Baso % (Auto) (0.0-1.5) % Neut # (Auto) (1.4-5.7) K/uL Lymph # (Auto) (0.6-2.4) K/uL Brown # (Auto) (0.0-0.8) K/uL Eos # (Auto) (0.0-0.7) K/uL Baso # (Auto) (0.0-0.1) K/uL Sodium (136-148) mmol/L Potassium (3.5-5.1) mmol/L Chloride (98-107) mmol/L Carbon Dioxide (21.0-32.0) mmol/L BUN (7.0-18.0) mg/dL Creatinine (0.8-1.3) mg/dL Est Cr Clr Drug Dosing mL/min Estimated GFR (MDRD) ml/min Glucose (74-106) mg/dL POC Glucose > 519 H* (70-99) mg/dL Calcium (8.5-10.1) mg/dL Phosphorus (2.6-4.7) mg/dL Magnesium (1.8-2.4) mg/dL Total Bilirubin (0.2-1.0) mg/dL AST (15-37) IU/L ALT (14-63) IU/L Alkaline Phosphatase (46-116) U/L Total Protein (6.4-8.2) g/dL Albumin (3.4-5.0) g/dL Globulin (2.6-4.0) g/dL Albumin/Globulin Ratio (0.9-1.6) Lipase (73-393) U/L Urine Color YELLOW Urine Appearance SLT CLOUDY Urine pH 6.0 (5.0-8.0) Ur Specific Corona 1.010 (1.001-1.035) Urine Protein TRACE H (NEGATIVE) mg/dL Urine Glucose (UA) >=1000 (NEGATIVE) mg/dL Urine Ketones NEGATIVE (NEGATIVE) mg/dL Urine Occult Blood TRACE-INTACT H (NEGATIVE) Urine Nitrite POSITIVE H (NEGATIVE) Urine Bilirubin NEGATIVE (NEGATIVE) Urine Urobilinogen 0.2 (<2.0) EU/dL Ur Leukocyte Esterase NEGATIVE (NEGATIVE) Urine RBC 1-3 (0-2/HPF) Urine WBC 2-5 (0-5/HPF) Ur Epithelial Cells RARE (NONE-FEW) Urine Bacteria 1+ H (NEGATIVE) Urine Opiates Screen NEGATIVE (NEGATIVE) Ur Oxycodone Screen NEGATIVE (NEGATIVE) Urine Methadone Screen NEGATIVE (NEGATIVE) Ur Barbiturates Screen NEGATIVE (NEGATIVE) Ur Phencyclidine Scrn NEGATIVE (NEGATIVE) Ur Amphetamine Screen NEGATIVE (NEGATIVE) U Methamphetamines Scrn NEGATIVE (NEGATIVE) U Benzodiazepines Scrn NEGATIVE (NEGATIVE) U Cocaine Metab Screen NEGATIVE (NEGATIVE) U Marijuana (THC) Screen NEGATIVE (NEGATIVE) Ethyl Alcohol mg/dL Ketones (NEG) 08/19/20 08/19/20 Range/Units 02:31 03:27 WBC (4.0-11.0) K/uL RBC (4.50-5.90) M/uL Hgb (13.0-17.0) g/dL Hct (38.0-50.0) % MCV (80.0-98.0) fL MCH (27.0-32.0) pg MCHC (31.0-37.0) g/dL RDW Std Deviation (28.0-62.0) fl RDW Coeff of Erika (11.0-15.0) % Plt Count (150-400) K/uL MPV (7.40-12.00) fL Neut % (Auto) (48.0-80.0) % Lymph % (Auto) (16.0-40.0) % Brown % (Auto) (0.0-15.0) % Eos % (Auto) (0.0-7.0) % Baso % (Auto) (0.0-1.5) % Neut # (Auto) (1.4-5.7) K/uL Lymph # (Auto) (0.6-2.4) K/uL Brown # (Auto) (0.0-0.8) K/uL Eos # (Auto) (0.0-0.7) K/uL Baso # (Auto) (0.0-0.1) K/uL Sodium (136-148) mmol/L Potassium (3.5-5.1) mmol/L Chloride (98-107) mmol/L Carbon Dioxide (21.0-32.0) mmol/L BUN (7.0-18.0) mg/dL Creatinine (0.8-1.3) mg/dL Est Cr Clr Drug Dosing mL/min Estimated GFR (MDRD) ml/min Glucose (74-106) mg/dL POC Glucose 461 H* 228 H (70-99) mg/dL Calcium (8.5-10.1) mg/dL Phosphorus (2.6-4.7) mg/dL Magnesium (1.8-2.4) mg/dL Total Bilirubin (0.2-1.0) mg/dL AST (15-37) IU/L ALT (14-63) IU/L Alkaline Phosphatase (46-116) U/L Total Protein (6.4-8.2) g/dL Albumin (3.4-5.0) g/dL Globulin (2.6-4.0) g/dL Albumin/Globulin Ratio (0.9-1.6) Lipase (73-393) U/L Urine Color Urine Appearance Urine pH (5.0-8.0) Ur Specific Corona (1.001-1.035) Urine Protein (NEGATIVE) mg/dL Urine Glucose (UA) (NEGATIVE) mg/dL Urine Ketones (NEGATIVE) mg/dL Urine Occult Blood (NEGATIVE) Urine Nitrite (NEGATIVE) Urine Bilirubin (NEGATIVE) Urine Urobilinogen (<2.0) EU/dL Ur Leukocyte Esterase (NEGATIVE) Urine RBC (0-2/HPF) Urine WBC (0-5/HPF) Ur Epithelial Cells (NONE-FEW) Urine Bacteria (NEGATIVE) Urine Opiates Screen (NEGATIVE) Ur Oxycodone Screen (NEGATIVE) Urine Methadone Screen (NEGATIVE) Ur Barbiturates Screen (NEGATIVE) Ur Phencyclidine Scrn (NEGATIVE) Ur Amphetamine Screen (NEGATIVE) U Methamphetamines Scrn (NEGATIVE) U Benzodiazepines Scrn (NEGATIVE) U Cocaine Metab Screen (NEGATIVE) U Marijuana (THC) Screen (NEGATIVE) Ethyl Alcohol mg/dL Ketones (NEG) Meds: Medications Generic Name Dose Route Start Last Admin Trade Name Freq PRN Reason Stop Dose Admin Dextrose/Water 50 ml 08/19/20 01:48 50% Dextrose In Water 50 Ml Syringe IVPUSH ASDIRECTED PRN Hypoglycemia Dextrose/Water 50 ml 08/19/20 02:32 50% Dextrose In Water 50 Ml Syringe IVPUSH ASDIRECTED PRN Hypoglycemia Glucagon 1 mg 08/19/20 01:48 Glucagon,Human Recombinant 1 Mg Vial IM ASDIRECTED PRN Hypoglycemia Glucagon 1 mg 08/19/20 02:32 Glucagon,Human Recombinant 1 Mg Vial IM ASDIRECTED PRN Hypoglycemia Sodium Chloride 10 ml 08/19/20 01:06 08/19/20 01:23 Sodium Chloride 0.9% 10 Ml Syringe FLUSH 10 ml ASDIRECTED PRN Administration Keep Vein Open Sodium Chloride 2.5 ml 08/19/20 01:06 08/19/20 01:23 Sodium Chloride 0.9% 2.5 Ml Syringe FLUSH 2.5 ml ASDIRECTED PRN Administration Keep Vein Open Discontinued Medications Generic Name Dose Route Start Last Admin Trade Name Freq PRN Reason Stop Dose Admin Diphenhydramine HCl 50 mg 08/19/20 01:22 08/19/20 01:28 Diphenhydramine 50 Mg/Ml Sdv IVPUSH 08/19/20 01:23 50 mg ONETIME ONE Administration Fentanyl 50 mcg 08/19/20 01:46 08/19/20 01:54 Fentanyl 50 Mcg/Ml Sdv IVPUSH 08/19/20 01:47 50 mcg ONETIME ONE Administration Fentanyl 50 mcg 08/19/20 02:30 08/19/20 02:36 Fentanyl 50 Mcg/Ml Sdv IVPUSH 08/19/20 02:31 50 mcg ONETIME ONE Administration Lactated Ringer's 1,000 mls @ 999 mls/hr 08/19/20 01:06 08/19/20 01:21 Ringers, Lactated IV 08/19/20 02:06 999 mls/hr .BOLUS ONE Administration Lactated Ringer's 1,000 mls @ 999 mls/hr 08/19/20 02:09 08/19/20 01:30 Ringers, Lactated IV 08/19/20 03:09 999 mls/hr .BOLUS ONE Administration Insulin Human Regular 8 unit 08/19/20 01:48 08/19/20 01:54 Insulin Regular, Human 100 Units/Ml 10 Ml Vial IVPUSH 08/19/20 01:49 8 units ONETIME ONE Administration Protocol Insulin Human Regular 5 unit 08/19/20 02:32 08/19/20 02:36 Insulin Regular, Human 100 Units/Ml 10 Ml Vial IVPUSH 08/19/20 02:33 5 units ONETIME ONE Administration Protocol Iopamidol 100 ml 08/19/20 01:50 08/19/20 02:31 Iopamidol 755 Mg/Ml 100 Ml Bottle IVPUSH 08/19/20 01:51 100 ml ONETIME ONE Administration Metoclopramide HCl 10 mg 08/19/20 02:29 08/19/20 02:36 Metoclopramide 10 Mg/2 Ml Sdv IVPUSH 08/19/20 02:30 10 mg ONETIME ONE Administration Ondansetron HCl 4 mg 08/19/20 01:06 08/19/20 01:21 Ondansetron 4 Mg/2 Ml Sdv IVPUSH 08/19/20 01:07 4 mg ONETIME ONE Administration Ondansetron HCl 4 mg 08/19/20 01:58 08/19/20 02:04 Ondansetron 4 Mg/2 Ml Sdv IVPUSH 08/19/20 01:59 4 mg ONETIME ONE Administration - Re-Assessments/Exams Free Text/Narrative Re-Assessment/Exam: 08/19/20 03:56 After IV regular insulin, his blood glucose = 221, the patient improved and is currently stable for discharge. I performed a repeat exam and did not appreciate new abnormal findings. Patient exhibits normal vital signs and has a normal gait on road test. He urinated 1L urine output after CT. I advised the patient to return to the ER for reevaluation if symptoms worsened, including fever, worsening pain, or any other worrisome symptoms. I instructed the patient to follow up with their PCP within 2-3 days. MEDICAL DECISION MAKING: I reviewed the patients past medical records, lab and radiographic findings. I discussed the case with the patient. My differential diagnosis included: DKA, hyperglycemia. Patient has a history of neurogenic bladder, likely explains the cause for his hydronephrosis and bladder distention and urinary retention. He was able to urinate [address] output after [address] CT also demonstrated findings consistent with cystitis, he is currently on cephalexin for UTI treatment. I instructed him to continue taking cephalexin instead of amoxicillin which prompted his vomiting today. Patient's chemistry does not reveal acidosis or findings of DKA, he received IV insulin with improvement in his hyperglycemia. Patient's creatinine function is at baseline, he was given 2 L IV fluids in the ED. Departure - Departure Time of Disposition: 03:43 Disposition: Home, Self-Care 01 Condition: Good Clinical Impression: Adverse reaction to drug, Hyperglycemia, History of neurogenic bladder, Cystitis - Discharge Information *PRESCRIPTION DRUG MONITORING PROGRAM REVIEWED*: Not Applicable *COPY OF PRESCRIPTION DRUG MONITORING REPORT IN PATIENT HANY: Not Applicable Prescriptions: Ondansetron [Zofran ODT] 4 mg PO Q6H PRN #12 tab.dis PRN Reason: Vomiting Instructions: Urinary Tract Infection, Adult, Hyperglycemia, [id number] Referrals: Lynsey Palm NP [Primary Care Provider] - 3 Days Forms: ED Department Discharge Additional Instructions: The need for follow-up, as well as the timing and circumstances, are variable depending upon the specifics of your emergency department visit. If you don't have a primary care physician on staff, we will provide you with a referral. We always advise you to contact your personal physician following an emergency department visit to inform them of the circumstance of the visit and for follow-up with them and/or the need for any referrals to a consulting specialist. The emergency department will also refer you to a specialist when appropriate. This referral assures that you have the opportunity for follow-up care with a specialist. All of these measure are taken in an effort to provide you with optimal care, which includes your follow-up. Under all circumstances we always encourage you to contact your private physician who remains a resource for coordinating your care. When calling for follow-up care, please make the office aware that this follow-up is from your recent emergency room visit. If for any reason you are refused follow-up, please contact the [facility] Emergency Department at and asked to speak to the emergency department charge nurse. If you do not have a primary care doctor, please follow up with the clinics below within 3-5 days. [facility] - Primary Care [address] [place] [id number] [address] [address] Sepsis Event Note (ED) - Evaluation Sepsis Screening Result: No Definite Risk - Focused Exam Vital Signs: Vital Signs Temp Pulse Resp BP Pulse Ox 08/19/20 02:05 117 H 20 170/107 H 99 08/19/20 01:23 98.1 F 101 H 18 169/76 H 97 - My Orders Last 24 Hours: My Active Orders 08/19/20 01:06 Cardiac Monitoring [RC] . DIRECTED Pulse Oximetry [RC] ASDIRECTED Sodium Chloride 0.9% [Saline Flush] 10 ml FLUSH ASDIRECTED PRN Sodium Chloride 0.9% [Saline Flush] 2.5 ml FLUSH ASDIRECTED PRN Saline Lock Insert [OM.PC] Stat 08/19/20 01:48 Dextrose 50% in Water 50 ml IVPUSH ASDIRECTED PRN Glucagon,Human Recombinant [GlucaGen] 1 mg IM ASDIRECTED PRN 08/19/20 02:32 Dextrose 50% in Water 50 ml IVPUSH ASDIRECTED PRN Glucagon,Human Recombinant [GlucaGen] 1 mg IM ASDIRECTED PRN - Assessment/Plan Last 24 Hours: My Active Orders 08/19/20 01:06 Cardiac Monitoring [RC] . DIRECTED Pulse Oximetry [RC] ASDIRECTED Sodium Chloride 0.9% [Saline Flush] 10 ml FLUSH ASDIRECTED PRN Sodium Chloride 0.9% [Saline Flush] 2.5 ml FLUSH ASDIRECTED PRN Saline Lock Insert [OM.PC] Stat 08/19/20 01:48 Dextrose 50% in Water 50 ml IVPUSH ASDIRECTED PRN Glucagon,Human Recombinant [GlucaGen] 1 mg IM ASDIRECTED PRN 08/19/20 02:32 Dextrose 50% in Water 50 ml IVPUSH ASDIRECTED PRN Glucagon,Human Recombinant [GlucaGen] 1 mg IM ASDIRECTED PRN
[2020-08-19] MEDS ORDERED: fentaNYL 50 MCG/ML SDV IVPUSH ONE ×2 (01:46→02:30)
[2020-08-19 01:47] LABS: GLUCOSE RANDOM 870 mg/dL (74-106)
[2020-08-19] MEDS ORDERED: Glucagon,Human Recombinant 1 MG Vial IM PRN ×2 (01:48→02:32)
[2020-08-19] MEDS ORDERED: Insulin Regular, Human 100 Units/ML 10 ML Vial IVPUSH ONE ×2 (01:48→02:32)
[2020-08-19] MEDS ORDERED: 50% Dextrose in Water 50 ML Syringe IVPUSH PRN ×2 (01:48→02:32)
[2020-08-19] MEDS ORDERED: Iopamidol 755 Mg/ML 100 ML Bottle IVPUSH ONE (01:50)
[2020-08-19] MEDS ORDERED: Metoclopramide 10 MG/2 ML SDV IVPUSH ONE (02:29)
--- NOTE | 2020-08-19 03:34 | CT ---
Indication: Diffuse abdominal pain Technique: Contrast enhanced axial CT imaging through the abdomen and pelvis. 100 mL Isovue 370 contrast agent was administered intravenously. Sagittal and coronal reconstructions are provided. Comparison: CT pelvis with contrast 03/06/2020 Findings: The liver, spleen, pancreas, and adrenal glands are unremarkable. There is gallbladder distention without appreciable wall thickening or surrounding edema. Small amount of layering sludge is noted in the gallbladder fundus. There is bilateral hydronephrosis, slightly more pronounced on the right. There is slightly delayed enhancement of the left kidney relative to the right. No stones are seen in the renal collecting systems, ureters, or urinary bladder. The bladder is markedly distended, measuring 13 x 12 x 12 cm (approximate volume 940 mL). The bladder wall is mildly thickened relative to the degree of distention. The portal vein is patent. The abdominal aorta is normal in caliber. There is no abdominal lymphadenopathy. The stomach and duodenum are unremarkable. There is normal caliber of the small bowel. The appendix is noninflamed. There is no colonic wall thickening or mesenteric edema. Prominent fecal material is noted throughout the colon. The osseous structures are unremarkable. The included lung bases are clear. Impression: 1. Marked urinary bladder distention. Correlate with postvoid residual to exclude urinary retention. 2. Mild urinary bladder wall thickening relative to degree distention. Correlate with urinalysis to exclude cystitis. 3. Bilateral hydronephrosis, slightly worse on the right and slightly delayed enhancement of the left kidney. Findings may be secondary to bladder distention. Follow-up renal ultrasound is recommended postvoid or following bladder catheterization. 4. Prominent fecal material throughout the colon, suggesting constipation. 5. Gallbladder distension without findings to suggest cholecystitis. Correlate clinically. Please note that all CT scans at this facility use dose modulation, iterative reconstruction, and/or weight-based dosing when appropriate to reduce radiation dose to as low as reasonably achievable. Dictated by Magnus Guerrero MD @ 08/19/2020 3:33:[address] Magnus Guerrero @ Aug 19 2020 3:33AM
[2020-08-19 04:11] VITALS: BP 91/52; PULSE 96
== END 2020-08-19 04:13 | disposition home or self-care (01) ==
LOC: MW.ED 00:59
DX: R11.2 Nausea with vomiting, unspecified (principal); T36.0X5A Adverse effect of penicillins, initial encounter; N30.90 Cystitis, unspecified without hematuria; E10.65 Type 1 diabetes mellitus with hyperglycemia; E10.10 Type 1 diabetes mellitus with ketoacidosis without coma; Z87.448 Personal history of other diseases of urinary system; Z88.0 Allergy status to penicillin; Z87.891 Personal history of nicotine dependence; Z88.6 Allergy status to analgesic agent
CPT/HCPCS: 36415; 74177; 80053; 80305; 80307; 81001; 82009; 82947; 83690; 83735; 84100; 85025; 96374; 96375; 96376; 99285; J1200; J2405; J2765; J3010; J7120; Q9967; J1815-GY

== ENCOUNTER 2020-08-22 10:55 | Emergency (ER) | payer MEDICAID ==
[2020-08-22] MEDS ORDERED: Sodium Chloride 0.9% 1,000 ML IV ONE (11:35)
[2020-08-22] MEDS ORDERED: Ondansetron 4 MG/2 ML SDV IVPUSH ONE (11:36)
--- NOTE | 2020-08-22 11:40 | EDM.PDOC ---
ED HPI GENERAL MEDICAL PROBLEM - General Chief Complaint: Abdominal Pain Stated Complaint: VOMITING/ABD PAIN/TYPE 1 DIABETIC Time Seen by Provider: 08/22/20 11:06 Source of Information: Reports: Patient History Limitations: Reports: No Limitations - History of Present Illness INITIAL COMMENTS - FREE TEXT/NARRATIVE: HISTORY AND PHYSICAL: History of present illness: Patient is a 24-year-old male, with a history of poorly controlled type 1 diabetes, who presents emergency room today with concern of nausea, occasional vomiting, and cramping abdominal pain that started last night. Patient states that all the symptoms started 2 days ago when he decided to smoke marijuana. Patient states he does not typically smoke marijuana and states that he took "4 hits "and states that he immediately felt unwell. Patient states that since then, he has had a significantly decrease in appetite and has had intermittent vomiting since. Patient states that he also this morning started having abdominal cramping along with the vomiting and states that this is typical of his usual DKA symptoms and states that he checked his glucose last night and it was 280. Patient denies fever, chills, chest pain, shortness of breath, or cough. Denies headache, neck stiff ness, change in vision, syncope, or near syncope. Denies diarrhea, constipation, or dysuria. Has not noted any blood in urine or stool. Review of systems: As per history of present illness and below otherwise all systems reviewed and negative. Past medical history: As per history of present illness and as reviewed below otherwise noncontributory. Surgical history: As per history of present illness and as reviewed below otherwise noncontributory. Social history: See social history for further information Family history: As per history of present illness and as reviewed below otherwise noncontributory. Physical exam: General: Patient is alert, oriented, and in no acute distress. Patient sitting comfortably on exam table. Vitals stable and reviewed by me HEENT: Atraumatic, normocephalic, pupils equal and reactive bilaterally, negative for conjunctival pallor or scleral icterus, mucous membranes moist, TMs normal bilaterally, throat clear, neck supple, nontender, trachea midline. No drooling or trismus noted. No meningeal signs. No hot potato voice noted. Lungs: Clear to auscultation, breath sounds equal bilaterally, chest nontender. Heart: S1S2, regular rate and rhythm without overt murmur Abdomen: Soft, nondistended, diffuse mild tenderness without guarding, negative rebound/wright. Negative for masses or hepatosplenomegaly. Negative for costovertebral tenderness. Pelvis: Stable nontender. Genitourinary: Deferred. Rectal: Deferred. Skin: Intact, warm, dry. No lesions or rashes noted. Extremities: Atraumatic, negative for cords or calf pain. Neurovascular unremarkable. Neuro: Awake, alert, oriented. Cranial nerves II through XII unremarkable. Cerebellum unremarkable. Motor and sensory unremarkable throughout. Exam nonfocal. Notes: Patient is a 24-year-old male with a history of poorly controlled type 1 diabetes that presents emergency room today secondary to nausea, vomiting, and abdominal pain x2 days which he relates to be initiated by smoking marijuana. Upon arrival to the ED, patient is vitally stable and well-appearing on exam. Patient does have some mild diffuse abdominal tenderness and is not actively vomiting. Bedside glucose noted to be 230. Will obtain routine labwork, provide 1LNS fluid bolus, Zofran and reassess patient. CBC shows red blood cells decreased at 3.89, hemoglobin decreased at 10.2, hematocrit decreased at 32.2 with an MCH decreased at 26.2. In comparison to past lab work, hemoglobin and hematocrit is stable. CMP shows a mild elevation in BUN at 21. Glucose is elevated at 256 with within normal limits of his sodium, potassium, chloride, and CO2. Lipase within normal limits. Other mild derangements of CMP unremarkable. Urinalysis does indicate 100 protein with 500 glucose, moderate leukocyte esterase with 0-3 red blood cells and 75-100 white blood cells with 3+ urine bacteria concerning for acute cystitis. Will give patient IV Rocephin while awaiting remainder of lab work. Patient does have negative CVA tenderness on exam with normal white blood cell count. Blood ketones negative. Upon reevaluation of patient, he has not had any episodes of vomiting today in the ED and expresses improvement of his symptoms today in the ED. Patient does state that he has some residual mild abdominal tenderness. I did offer abd/pelvic CT w cont in order to further assess his discomfort but patient declines at this time. All risks versus benefits discussed with patient and expresses understanding. Strict return precautions thoroughly discussed with patient. Discussed importance for follow-up with a primary care provider. Voices understanding and is agreeable to plan of care. Denies any further questions or concerns at this time. Diagnostics: Bedside glucose, CBC, CMP, UA, blood ketone, lipase, urine culture Therapeutics: NS, Zofran, Rocephin 1 g IV Prescription: Keflex, Zofran Impression: Nausea and vomiting, not intractable Abdominal pain, unspecified Urinary tract infection Plan: 1. Take medication as prescribed. You can alternate ibuprofen and Tylenol as directed for pain and discomfort. 2. Continue to monitor your sugars closely at home as discussed. 3. Do not use marijuana any longer as this can potentially lead to increased vomiting as discussed. 4. Encourage small but frequent sips of fluid to prevent dehydration. 5. Follow-up with a primary care provider as discussed. Return to the ED as needed and as discussed. Definitive disposition and diagnosis as appropriate pending reevaluation and review of above. abdomen Pain Score (Numeric/FACES): 8 - Related Data Allergies Allergy/AdvReac Type Severity Reaction Status Date / Time amoxicillin Allergy Mild Nausea and Verified 08/22/20 11:23 Vomiting morphine Allergy Mild Itching Verified 08/22/20 11:23 Home Meds: Home Meds Ondansetron [Zofran ODT] 4 mg PO Q6H PRN #12 tab.dis 08/19/20 [Rx] Insulin Aspart [NovoLOG] 5 unit SUBCUT TIDAC 08/22/20 [History] Insulin Glarg,Human.Rec.Analog [Lantus Solostar] 15 - 20 units SUBCUT BEDTIME 08/22/20 [History] Metoclopramide HCl [Reglan] 10 mg PO BEDTIME 08/22/20 [History] Ondansetron [Zofran ODT] 4 mg PO Q6H PRN #8 tab.dis 08/22/20 [Rx] cephALEXin [Keflex] 500 mg PO Q8H 7 Days cap 08/22/20 [Rx] cephALEXin [Keflex] 500 mg PO Q8H 7 Days #21 cap 08/22/20 [Rx] Past Medical History - Past Health History Medical/Surgical History: Denies Medical/Surgical History HEENT History: Reports: None Other HEENT History: ear ache, broken and missing teeth Cardiovascular History: Reports: None Respiratory History: Reports: None Gastrointestinal History: Reports: Irritable Bowel Syndrome Other Gastrointestinal History: gastroparesis Genitourinary History: Reports: Pyelonephritis, Other (See Below) Other Genitourinary History: hydronephrosis, neurogenic bladder Musculoskeletal History: Reports: Fracture Other Musculoskeletal History: Elbow long time ago Neurological History: Reports: None Psychiatric History: Reports: Anxiety, Depression Endocrine/Metabolic History: Reports: Diabetes, Type I Other Endocrine/Metabolic History: non-compliant to DM medications 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 Hematologic History: Reports: None Immunologic History: Reports: None Oncologic (Cancer) History: Reports: None Dermatologic History: Reports: Other (See Below) Other Dermatologic History: dry itchy skin - Infectious Disease History Infectious Disease History: Reports: None - Past Surgical History Head Surgeries/Procedures: Reports: None HEENT Surgical History: Reports: None GI Surgical History: Reports: None Male Surgical History: Reports: None Endocrine Surgical History: Reports: None Musculoskeletal Surgical History: Reports: None Dermatological Surgical History: Reports: None Social & Family History - Family History Family Medical History: No Pertinent Family History OBGYN: Reports: Endocrine/Metabolic: Reports: Diabetes, Type I, Diabetes, type II - Tobacco Use Tobacco Use Status *Q: Never Tobacco User - Caffeine Use Caffeine Use: Reports: Coffee, Energy Drinks, Soda, Tea - Recreational Drug Use Recreational Drug Use: Yes Recreational Drug Type: Reports: Marijuana/Hashish Recreational Drug Use Frequency: Rarely - Living Situation & Occupation Living situation: Reports: Single, with Family Occupation: Unemployed ED ROS GENERAL - Review of Systems Review Of Systems: Comprehensive ROS is negative, except as noted in HPI. ED EXAM, GENERAL - Physical Exam Exam: See Below (see dictation) Course - Vital Signs Last Recorded V/S: Last Vital Signs Temp 98.4 F 08/22/20 13:34 Pulse 92 08/22/20 13:34 Resp 20 08/22/20 13:34 BP 112/78 08/22/20 13:34 Pulse Ox 97 08/22/20 13:34 - Orders/Labs/Meds Orders: Active Orders 24 hr Category Date Time Status CULTURE URINE [MREF] Stat Lab 08/22/20 11:45 Received Labs: Laboratory Tests 08/22/20 08/22/20 08/22/20 Range/Units 11:31 11:45 12:26 WBC 6.35 (4.0-11.0) K/uL RBC 3.89 L (4.50-5.90) M/uL Hgb 10.2 L (13.0-17.0) g/dL Hct 32.2 L (38.0-50.0) % MCV 82.8 (80.0-98.0) fL MCH 26.2 L (27.0-32.0) pg MCHC 31.7 (31.0-37.0) g/dL RDW Std Deviation 47.1 (28.0-62.0) fl RDW Coeff of Erika 16 H (11.0-15.0) % Plt Count 305 (150-400) K/uL MPV 9.50 (7.40-12.00) fL Neut % (Auto) 63.0 (48.0-80.0) % Lymph % (Auto) 30.7 (16.0-40.0) % [place] % (Auto) 3.3 (0.0-15.0) % Eos % (Auto) 2.4 (0.0-7.0) % Baso % (Auto) 0.6 (0.0-1.5) % Neut # (Auto) 4.0 (1.4-5.7) K/uL Lymph # (Auto) 2.0 (0.6-2.4) K/uL [place] # (Auto) 0.2 (0.0-0.8) K/uL Eos # (Auto) 0.2 (0.0-0.7) K/uL Baso # (Auto) 0.0 (0.0-0.1) K/uL Nucleated RBC % 0.0 /100WBC Nucleated RBCs # 0 K/uL Sodium (136-148) mmol/L Potassium (3.5-5.1) mmol/L Chloride (98-107) mmol/L Carbon Dioxide (21.0-32.0) mmol/L BUN (7.0-18.0) mg/dL Creatinine (0.8-1.3) mg/dL Est Cr Clr Drug Dosing mL/min Estimated GFR (MDRD) ml/min Glucose (74-106) mg/dL POC Glucose 230 H (70-99) mg/dL Calcium (8.5-10.1) mg/dL Total Bilirubin (0.2-1.0) mg/dL AST (15-37) IU/L ALT (14-63) IU/L Alkaline Phosphatase (46-116) U/L Total Protein (6.4-8.2) g/dL Albumin (3.4-5.0) g/dL Globulin (2.6-4.0) g/dL Albumin/Globulin Ratio (0.9-1.6) Lipase (73-393) U/L Urine Color YELLOW Urine Appearance CLOUDY Urine pH 6.0 (5.0-8.0) Ur Specific Nixon >= 1.030 (1.001-1.035) Urine Protein 100 H (NEGATIVE) mg/dL Urine Glucose (UA) 500 H (NEGATIVE) mg/dL Urine Ketones NEGATIVE (NEGATIVE) mg/dL Urine Occult Blood SMALL H (NEGATIVE) Urine Nitrite NEGATIVE (NEGATIVE) Urine Bilirubin NEGATIVE (NEGATIVE) Urine Urobilinogen 0.2 (<2.0) EU/dL Ur Leukocyte Esterase MODERATE H (NEGATIVE) Urine RBC 0-3 (0-2/HPF) Urine WBC 75-100 (0-5/HPF) Ur Epithelial Cells RARE (NONE-FEW) Urine Bacteria 3+ H (NEGATIVE) Urine Mucus LIGHT (NONE-MOD) Ketones (NEG) 08/22/20 08/22/20 Range/Units 12:26 12:26 WBC (4.0-11.0) K/uL RBC (4.50-5.90) M/uL Hgb (13.0-17.0) g/dL Hct (38.0-50.0) % MCV (80.0-98.0) fL MCH (27.0-32.0) pg MCHC (31.0-37.0) g/dL RDW Std Deviation (28.0-62.0) fl RDW Coeff of Erika (11.0-15.0) % Plt Count (150-400) K/uL MPV (7.40-12.00) fL Neut % (Auto) (48.0-80.0) % Lymph % (Auto) (16.0-40.0) % [place] % (Auto) (0.0-15.0) % Eos % (Auto) (0.0-7.0) % Baso % (Auto) (0.0-1.5) % Neut # (Auto) (1.4-5.7) K/uL Lymph # (Auto) (0.6-2.4) K/uL [place] # (Auto) (0.0-0.8) K/uL Eos # (Auto) (0.0-0.7) K/uL Baso # (Auto) (0.0-0.1) K/uL Nucleated RBC % /100WBC Nucleated RBCs # K/uL Sodium 143 (136-148) mmol/L Potassium 4.6 (3.5-5.1) mmol/L Chloride 106 (98-107) mmol/L Carbon Dioxide 27.6 (21.0-32.0) mmol/L BUN 21 H (7.0-18.0) mg/dL Creatinine 1.0 (0.8-1.3) mg/dL Est Cr Clr Drug Dosing 89.21 mL/min Estimated GFR (MDRD) > 60.0 ml/min Glucose 256 H (74-106) mg/dL POC Glucose (70-99) mg/dL Calcium 9.1 (8.5-10.1) mg/dL Total Bilirubin 0.2 (0.2-1.0) mg/dL AST 14 L (15-37) IU/L ALT 15 (14-63) IU/L Alkaline Phosphatase 103 (46-116) U/L Total Protein 8.1 (6.4-8.2) g/dL Albumin 2.5 L (3.4-5.0) g/dL Globulin 5.6 H (2.6-4.0) g/dL Albumin/Globulin Ratio 0.5 L (0.9-1.6) Lipase 29 L (73-393) U/L Urine Color Urine Appearance Urine pH (5.0-8.0) Ur Specific Nixon (1.001-1.035) Urine Protein (NEGATIVE) mg/dL Urine Glucose (UA) (NEGATIVE) mg/dL Urine Ketones (NEGATIVE) mg/dL Urine Occult Blood (NEGATIVE) Urine Nitrite (NEGATIVE) Urine Bilirubin (NEGATIVE) Urine Urobilinogen (<2.0) EU/dL Ur Leukocyte Esterase (NEGATIVE) Urine RBC (0-2/HPF) Urine WBC (0-5/HPF) Ur Epithelial Cells (NONE-FEW) Urine Bacteria (NEGATIVE) Urine Mucus (NONE-MOD) Ketones NEGATIVE (NEG) Meds: Medications Discontinued Medications Generic Name Dose Route Start Last Admin Trade Name Freq PRN Reason Stop Dose Admin Sodium Chloride 1,000 mls @ 999 mls/hr 08/22/20 11:35 08/22/20 12:15 Normal Saline IV 08/22/20 12:35 999 mls/hr BOLUS ONE Administration Ceftriaxone Sodium/Dextrose 1 50 mls @ 100 mls/hr 08/22/20 12:38 08/22/20 12:58 gm/ Premix IV 08/22/20 13:07 100 mls/hr ONETIME ONE Administration Ondansetron HCl 4 mg 08/22/20 11:36 08/22/20 12:15 Ondansetron 4 Mg/2 Ml Sdv IVPUSH 08/22/20 11:37 4 mg ONETIME ONE Administration Departure - Departure Time of Disposition: 13:30 Disposition: Home, Self-Care 01 Clinical Impression: Urinary tract infection Qualifiers: Urinary tract infection type: acute cystitis Hematuria presence: with hematuria Qualified Code(s): N30.01 - Acute cystitis with hematuria Nausea and vomiting Qualifiers: Vomiting type: unspecified Vomiting Intractability: non-intractable Qualified Code(s): R11.2 - Nausea with vomiting, unspecified Abdominal pain Qualifiers: Abdominal location: upper abdomen, unspecified Qualified Code(s): R10.10 - Upper abdominal pain, unspecified - Discharge Information Prescriptions: cephALEXin [Keflex] 500 mg PO Q8H 7 Days cap cephALEXin [Keflex] 500 mg PO Q8H 7 Days #21 cap Ondansetron [Zofran ODT] 4 mg PO Q6H PRN #8 tab.dis PRN Reason: Nausea/Vomiting Referrals: Lonny Lomas DO [Primary Care Provider] - Forms: ED Department Discharge Additional Instructions: The following information is given to patients seen in the emergency department who are being discharged to home. This information is to outline your options for follow-up care. We provide all patients seen in our emergency department with a follow-up referral. The need for follow-up, as well as the timing and circumstances, are variable depending upon the specifics of your emergency department visit. If you don't have a primary care physician on staff, we will provide you with a referral. We always advise you to contact your personal physician following an emergency department visit to inform them of the circumstance of the visit and for follow-up with them and/or the need for any referrals to a consulting specialist. The emergency department will also refer you to a specialist when appropriate. This referral assures that you have the opportunity for follow-up care with a specialist. All of these measure are taken in an effort to provide you with optimal care, which includes your follow-up. Under all circumstances we always encourage you to contact your private physician who remains a resource for coordinating your care. When calling for follow-up care, please make the office aware that this follow-up is from your recent emergency room visit. If for any reason you are refused follow-up, please contact the [facility] Emergency Department at and asked to speak to the emergency department charge nurse. [facility] [address] [place] [id number] [address] 1. Take medication as prescribed. You can alternate ibuprofen and Tylenol as directed for pain and discomfort. 2. Continue to monitor your sugars closely at home as discussed. 3. Do not use marijuana any longer as this can potentially lead to increased vomiting as discussed. 4. Encourage small but frequent sips of fluid to prevent dehydration. 5. Follow-up with a primary care provider as discussed. Return to the ED as needed and as discussed. Sepsis Event Note (ED) - Evaluation Sepsis Screening Result: No Definite Risk - Focused Exam Vital Signs: Vital Signs Temp Pulse Resp BP Pulse Ox 08/22/20 13:34 98.4 F 92 20 112/78 97 08/22/20 12:50 98.2 F 98 18 118/72 98 08/22/20 12:13 98 20 120/73 98 08/22/20 11:20 97.6 F 96 20 114/68 100 - My Orders Last 24 Hours: My Active Orders 08/22/20 11:45 CULTURE URINE [MREF] Stat - Assessment/Plan Last 24 Hours: My Active Orders 08/22/20 11:45 CULTURE URINE [MREF] Stat
[2020-08-22] MEDS ORDERED: cefTRIAXone 1 GM in Premix Bag 1 BAG IV ONE (12:38)
[2020-08-22 13:03] LABS: BLOOD UREA NITROGEN,BUN 21 mg/dL (7.0-18.0); CARBON DIOXIDE,CO2 27.6 mmol/L (21.0-32.0); CHLORIDE,CL 106 mmol/L (98-107); GLUCOSE RANDOM 256 mg/dL (74-106); LIPASE 29 U/L (73-393); POTASSIUM,K 4.6 mmol/L (3.5-5.1); SODIUM,NA 143 mmol/L (136-148)
[2020-08-22 13:35] VITALS: BP 112/78; PULSE 92
== END 2020-08-22 13:45 | disposition home or self-care (01) ==
LOC: MW.ED 10:55
DX: N30.01 Acute cystitis with hematuria (principal); R11.2 Nausea with vomiting, unspecified; R10.10 Upper abdominal pain, unspecified; Z88.0 Allergy status to penicillin; Z88.5 Allergy status to narcotic agent
CPT/HCPCS: 36415; 80053; 81001; 82009; 82947; 83690; 85025; 87086; 96365; 96375; 99284; J0696; J2405; J7030

== ENCOUNTER 2020-09-07 22:08 | Emergency (ER) | payer MEDICAID ==
[2020-09-07] MEDS ORDERED: Sodium Chloride 0.9% 2.5 ML Syringe FLUSH PRN (23:42)
[2020-09-07] MEDS ORDERED: Ketorolac 15 MG/ML SDV IVPUSH ONE (23:42)
[2020-09-07] MEDS ORDERED: Sodium Chloride 0.9% 10 ML Syringe FLUSH PRN (23:42)
[2020-09-07] MEDS ORDERED: Ondansetron 4 MG/2 ML SDV IVPUSH ONE (23:42)
[2020-09-07] MEDS ORDERED: Sodium Chloride 0.9% 1,000 ML IV ONE (23:42)
--- NOTE | 2020-09-07 23:44 | EDM.PDOC ---
ED HPI GENERAL MEDICAL PROBLEM - General Chief Complaint: General Stated Complaint: FELLING ITCHY, VOMITING, NO ENERGY Time Seen by Provider: 09/07/20 23:35 Source of Information: Reports: Patient - History of Present Illness INITIAL COMMENTS - FREE TEXT/NARRATIVE: History of present illness: 24-year-old male presenting with nausea, abdominal discomfort and itchiness. This started around 9 PM. Started shortly after eating a seafood meal at a [place] restaurant. He is not sure if he had any allergy to that. He also took a Cipro antibiotic and not the Keflex that he had actually been prescribed and was not sure if he had an allergy to that. No prior history of Cipro allergy. He also reported that he felt his glucose level was low, however it was in the 200s prior to eating dinner at 8:30 PM. That is about when he took his last insulin dose as well. He reports he has had some similar symptoms in the past when he had DKA. Review of systems: As per history of present illness and below otherwise all systems reviewed and negative. Past medical history: As per history of present illness and as reviewed below otherwise noncontributory. Type 1 diabetes Surgical history: As per history of present illness and as reviewed below otherwise noncontributory. Social history: No reported history of drug or alcohol abuse. Family history: As per history of present illness and as reviewed below otherwise noncontributory. Physical exam: GEN: no acute distress, well appearing HEENT: Atraumatic, normocephalic, mucous membranes moist, right eye subconjunctival hemorrhage, no airway compromise, no stridor, no oral swelling Neck: supple, nontender, trachea midline. Lungs: No respiratory distress. Heart: RRR Abdomen: Soft, nondistended, mildly tender in the upper abdomen/epigastrium. Back: nontender, no CVA tenderness Extremities: Atraumatic. Neurovascularly intact. Neuro: Awake, alert, oriented. Neuro Exam nonfocal. Skin: warm, dry, no lesions no rash Diagnostics: Labs, EKG EKG performed September 08, 2020 at 12:05 AM, sinus rhythm, rate 99, no acute ischemia, no STEMI. Interpreted by me. Therapeutics: IV fluids, Benadryl, Zofran MDM: Impression: [] Plan: [] Definitive disposition and diagnosis as appropriate pending reevaluation and review of above. Treatments RESEARCH TECH: Reports: NSAIDS Abdomen Pain Score (Numeric/FACES): 8 - Related Data Allergies Allergy/AdvReac Type Severity Reaction Status Date / Time amoxicillin Allergy Mild Nausea and Verified 09/07/20 23:25 Vomiting morphine Allergy Mild Itching Verified 09/07/20 23:25 Home Meds: Home Meds Insulin Aspart [NovoLOG] 5 unit SUBCUT TIDAC 08/22/20 [History] Insulin Glarg,Human.Rec.Analog [Lantus Solostar] 15 - 20 units SUBCUT BEDTIME 08/22/20 [History] Metoclopramide HCl [Reglan] 10 mg PO BEDTIME 08/22/20 [History] Ondansetron [Zofran ODT] 4 mg PO Q6H PRN #8 tab.dis 08/22/20 [Rx] Past Medical History - Past Health History Medical/Surgical History: Denies Medical/Surgical History HEENT History: Reports: None Other HEENT History: ear ache, broken and missing teeth Cardiovascular History: Reports: None Respiratory History: Reports: None Gastrointestinal History: Reports: Irritable Bowel Syndrome Other Gastrointestinal History: gastroparesis Genitourinary History: Reports: Pyelonephritis, Other (See Below) Other Genitourinary History: hydronephrosis, neurogenic bladder Musculoskeletal History: Reports: Fracture Other Musculoskeletal History: Elbow long time ago Neurological History: Reports: None Psychiatric History: Reports: Anxiety, Depression Endocrine/Metabolic History: Reports: Diabetes, Type I Other Endocrine/Metabolic History: non-compliant to DM medications Insulin Pump Model and Segmental Paver Installer: None Hematologic History: Reports: None Immunologic History: Reports: None Oncologic (Cancer) History: Reports: None Dermatologic History: Reports: Other (See Below) Other Dermatologic History: dry itchy skin - Infectious Disease History Infectious Disease History: Reports: None - Past Surgical History Head Surgeries/Procedures: Reports: None HEENT Surgical History: Reports: None GI Surgical History: Reports: None Male Surgical History: Reports: None Endocrine Surgical History: Reports: None Musculoskeletal Surgical History: Reports: None Dermatological Surgical History: Reports: None Social & Family History - Family History Family Medical History: No Pertinent Family History OBGYN: Reports: Endocrine/Metabolic: Reports: Diabetes, Type I, Diabetes, type II - Tobacco Use Tobacco Use Status *Q: Never Tobacco User - Caffeine Use Caffeine Use: Reports: None - Recreational Drug Use Recreational Drug Use: No - Living Situation & Occupation Living situation: Reports: Single, with Family Occupation: Unemployed ED ROS GENERAL - Review of Systems Review Of Systems: See Below (See dictation) ED EXAM, GENERAL - Physical Exam Exam: See Below (See dictation) Course - Vital Signs Last Recorded V/S: Last Vital Signs Temp 97.3 F 09/07/20 23:28 Pulse 90 09/08/20 02:45 Resp 15 09/08/20 02:45 BP 112/80 09/08/20 02:45 Pulse Ox 98 09/08/20 02:45 - Orders/Labs/Meds Orders: Active Orders 24 hr Category Date Time Status Saline Lock Insert [OM.PC] Stat Oth 09/07/20 23:42 Ordered Labs: Laboratory Tests 09/07/20 09/08/20 09/08/20 Range/Units 22:15 00:01 00:20 WBC 10.28 (4.0-11.0) K/uL RBC 2.22 L (4.50-5.90) M/uL Hgb 5.8 L (13.0-17.0) g/dL Hct 18.7 L (38.0-50.0) % MCV 84.2 (80.0-98.0) fL MCH 26.1 L (27.0-32.0) pg MCHC 31.0 (31.0-37.0) g/dL RDW Std Deviation 43.0 (28.0-62.0) fl RDW Coeff of Erika 15 (11.0-15.0) % Plt Count 267 (150-400) K/uL MPV 9.20 (7.40-12.00) fL Neut % (Auto) 73.1 (48.0-80.0) % Lymph % (Auto) 20.6 (16.0-40.0) % [place] % (Auto) 3.6 (0.0-15.0) % Eos % (Auto) 2.4 (0.0-7.0) % Baso % (Auto) 0.3 (0.0-1.5) % Neut # (Auto) 7.5 H (1.4-5.7) K/uL Lymph # (Auto) 2.1 (0.6-2.4) K/uL [place] # (Auto) 0.4 (0.0-0.8) K/uL Eos # (Auto) 0.3 (0.0-0.7) K/uL Baso # (Auto) 0.0 (0.0-0.1) K/uL VBG pH (7.31-7.41) VBG pCO2 (41-51) mmHG VBG pO2 mmHG VBG HCO3 (23-28) mEq/L VBG Total CO2 (24-29) mmol/L VBG Base Excess (-2.0-3.0) Sodium (136-148) mmol/L Potassium (3.5-5.1) mmol/L Chloride (98-107) mmol/L Carbon Dioxide (21.0-32.0) mmol/L BUN (7.0-18.0) mg/dL Creatinine (0.8-1.3) mg/dL Est Cr Clr Drug Dosing mL/min Estimated GFR (MDRD) ml/min Glucose (74-106) mg/dL POC Glucose 354 H (70-99) mg/dL Calcium (8.5-10.1) mg/dL Total Bilirubin (0.2-1.0) mg/dL AST (15-37) IU/L ALT (14-63) IU/L Alkaline Phosphatase (46-116) U/L Total Protein (6.4-8.2) g/dL Albumin (3.4-5.0) g/dL Globulin (2.6-4.0) g/dL Albumin/Globulin Ratio (0.9-1.6) Lipase (73-393) U/L Urine Color YELLOW Urine Appearance CLOUDY Urine pH 5.5 (5.0-8.0) Ur Specific [place] 1.025 (1.001-1.035) Urine Protein 30 H (NEGATIVE) mg/dL Urine Glucose (UA) >=1000 (NEGATIVE) mg/dL Urine Ketones NEGATIVE (NEGATIVE) mg/dL Urine Occult Blood SMALL H (NEGATIVE) Urine Nitrite NEGATIVE (NEGATIVE) Urine Bilirubin NEGATIVE (NEGATIVE) Urine Urobilinogen 0.2 (<2.0) EU/dL Ur Leukocyte Esterase SMALL H (NEGATIVE) Urine RBC 4-8 (0-2/HPF) Urine WBC 30-40 (0-5/HPF) Ur Epithelial Cells FEW (NONE-FEW) Urine Bacteria 4+ H (NEGATIVE) Urine Mucus LIGHT (NONE-MOD) Ketones (NEG) 09/08/20 09/08/20 09/08/20 Range/Units 00:20 00:20 00:20 WBC (4.0-11.0) K/uL RBC (4.50-5.90) M/uL Hgb (13.0-17.0) g/dL Hct (38.0-50.0) % MCV (80.0-98.0) fL MCH (27.0-32.0) pg MCHC (31.0-37.0) g/dL RDW Std Deviation (28.0-62.0) fl RDW Coeff of Erika (11.0-15.0) % Plt Count (150-400) K/uL MPV (7.40-12.00) fL Neut % (Auto) (48.0-80.0) % Lymph % (Auto) (16.0-40.0) % [place] % (Auto) (0.0-15.0) % Eos % (Auto) (0.0-7.0) % Baso % (Auto) (0.0-1.5) % Neut # (Auto) (1.4-5.7) K/uL Lymph # (Auto) (0.6-2.4) K/uL [place] # (Auto) (0.0-0.8) K/uL Eos # (Auto) (0.0-0.7) K/uL Baso # (Auto) (0.0-0.1) K/uL VBG pH 7.33 (7.31-7.41) VBG pCO2 49 (41-51) mmHG VBG pO2 56 mmHG VBG HCO3 26 (23-28) mEq/L VBG Total CO2 25 (24-29) mmol/L VBG Base Excess -0.2 (-2.0-3.0) Sodium 136 (136-148) mmol/L Potassium 4.4 (3.5-5.1) mmol/L Chloride 105 (98-107) mmol/L Carbon Dioxide 26.3 (21.0-32.0) mmol/L BUN 20 H (7.0-18.0) mg/dL Creatinine 1.1 (0.8-1.3) mg/dL Est Cr Clr Drug Dosing 81.10 mL/min Estimated GFR (MDRD) > 60.0 ml/min Glucose 417 H (74-106) mg/dL POC Glucose (70-99) mg/dL Calcium 8.1 L (8.5-10.1) mg/dL Total Bilirubin 0.2 (0.2-1.0) mg/dL AST 14 L (15-37) IU/L ALT 19 (14-63) IU/L Alkaline Phosphatase 90 (46-116) U/L Total Protein 7.0 (6.4-8.2) g/dL Albumin 2.7 L (3.4-5.0) g/dL Globulin 4.3 H (2.6-4.0) g/dL Albumin/Globulin Ratio 0.6 L (0.9-1.6) Lipase 193 (73-393) U/L Urine Color Urine Appearance Urine pH (5.0-8.0) Ur Specific [place] (1.001-1.035) Urine Protein (NEGATIVE) mg/dL Urine Glucose (UA) (NEGATIVE) mg/dL Urine Ketones (NEGATIVE) mg/dL Urine Occult Blood (NEGATIVE) Urine Nitrite (NEGATIVE) Urine Bilirubin (NEGATIVE) Urine Urobilinogen (<2.0) EU/dL Ur Leukocyte Esterase (NEGATIVE) Urine RBC (0-2/HPF) Urine WBC (0-5/HPF) Ur Epithelial Cells (NONE-FEW) Urine Bacteria (NEGATIVE) Urine Mucus (NONE-MOD) Ketones NEGATIVE (NEG) 09/08/20 09/08/20 Range/Units 00:59 02:15 WBC 7.30 (4.0-11.0) K/uL RBC 3.29 L (4.50-5.90) M/uL Hgb 8.6 L (13.0-17.0) g/dL Hct 27.2 L (38.0-50.0) % MCV 82.7 (80.0-98.0) fL MCH 26.1 L (27.0-32.0) pg MCHC 31.6 (31.0-37.0) g/dL RDW Std Deviation 42.7 (28.0-62.0) fl RDW Coeff of Erika 15 (11.0-15.0) % Plt Count 203 (150-400) K/uL MPV 9.20 (7.40-12.00) fL Neut % (Auto) 71.0 (48.0-80.0) % Lymph % (Auto) 22.1 (16.0-40.0) % [place] % (Auto) 4.1 (0.0-15.0) % Eos % (Auto) 2.5 (0.0-7.0) % Baso % (Auto) 0.3 (0.0-1.5) % Neut # (Auto) 5.2 (1.4-5.7) K/uL Lymph # (Auto) 1.6 (0.6-2.4) K/uL [place] # (Auto) 0.3 (0.0-0.8) K/uL Eos # (Auto) 0.2 (0.0-0.7) K/uL Baso # (Auto) 0.0 (0.0-0.1) K/uL VBG pH (7.31-7.41) VBG pCO2 (41-51) mmHG VBG pO2 mmHG VBG HCO3 (23-28) mEq/L VBG Total CO2 (24-29) mmol/L VBG Base Excess (-2.0-3.0) Sodium (136-148) mmol/L Potassium (3.5-5.1) mmol/L Chloride (98-107) mmol/L Carbon Dioxide (21.0-32.0) mmol/L BUN (7.0-18.0) mg/dL Creatinine (0.8-1.3) mg/dL Est Cr Clr Drug Dosing mL/min Estimated GFR (MDRD) ml/min Glucose (74-106) mg/dL POC Glucose 153 H (70-99) mg/dL Calcium (8.5-10.1) mg/dL Total Bilirubin (0.2-1.0) mg/dL AST (15-37) IU/L ALT (14-63) IU/L Alkaline Phosphatase (46-116) U/L Total Protein (6.4-8.2) g/dL Albumin (3.4-5.0) g/dL Globulin (2.6-4.0) g/dL Albumin/Globulin Ratio (0.9-1.6) Lipase (73-393) U/L Urine Color Urine Appearance Urine pH (5.0-8.0) Ur Specific [place] (1.001-1.035) Urine Protein (NEGATIVE) mg/dL Urine Glucose (UA) (NEGATIVE) mg/dL Urine Ketones (NEGATIVE) mg/dL Urine Occult Blood (NEGATIVE) Urine Nitrite (NEGATIVE) Urine Bilirubin (NEGATIVE) Urine Urobilinogen (<2.0) EU/dL Ur Leukocyte Esterase (NEGATIVE) Urine RBC (0-2/HPF) Urine WBC (0-5/HPF) Ur Epithelial Cells (NONE-FEW) Urine Bacteria (NEGATIVE) Urine Mucus (NONE-MOD) Ketones (NEG) Meds: Medications Discontinued Medications Generic Name Dose Route Start Last Admin Trade Name Freq PRN Reason Stop Dose Admin Dextrose/Water 50 ml 09/08/20 01:01 50% Dextrose In Water 50 Ml Syringe IVPUSH ASDIRECTED PRN Hypoglycemia Diphenhydramine HCl 25 mg 09/08/20 00:09 09/08/20 00:28 Diphenhydramine 50 Mg/Ml Sdv IVPUSH 09/08/20 00:10 25 mg ONETIME ONE Administration Glucagon 1 mg 09/08/20 01:01 Glucagon,Human Recombinant 1 Mg Vial IM ASDIRECTED PRN Hypoglycemia Sodium Chloride 1,000 mls @ 999 mls/hr 09/07/20 23:42 09/08/20 00:27 Normal Saline IV 09/08/20 00:42 999 mls/hr .Bolus ONE Administration Ceftriaxone Sodium/Dextrose 1 50 mls @ 100 mls/hr 09/08/20 01:02 09/08/20 01:16 gm/ Premix IV 09/08/20 01:31 100 mls/hr ONETIME ONE Administration Insulin Human Regular 10 unit 09/08/20 01:01 09/08/20 01:16 Insulin Regular, Human 100 Units/Ml 10 Ml Vial IVPUSH 09/08/20 01:02 10 units ONETIME ONE Administration Protocol Ketorolac Tromethamine 15 mg 09/07/20 23:42 09/08/20 00:28 Ketorolac 15 Mg/Ml Sdv IVPUSH 09/07/20 23:43 15 mg ONETIME ONE Administration Ondansetron HCl 4 mg 09/07/20 23:42 09/08/20 00:28 Ondansetron 4 Mg/2 Ml Sdv IVPUSH 09/07/20 23:43 4 mg ONETIME ONE Administration Sodium Chloride 10 ml 09/07/20 23:42 09/08/20 00:37 Sodium Chloride 0.9% 10 Ml Syringe FLUSH 10 ml ASDIRECTED PRN Administration Keep Vein Open Sodium Chloride 2.5 ml 09/07/20 23:42 09/08/20 00:37 Sodium Chloride 0.9% 2.5 Ml Syringe FLUSH 2.5 ml ASDIRECTED PRN Administration Keep Vein Open - Re-Assessments/Exams Free Text/Narrative Re-Assessment/Exam: 09/08/20 01:24 I reassessed the patient. He reports his itching is improved. Discussed all lab results with him. Discussed low hemoglobin. He does not know if he had any history of anemia or if he has had any work-up outpatient. He has not had any bleeding anywhere. He reports no dark-colored stools. No other associated symptoms. Discussed his elevated glucose level. He does report that he took both his mealtime insulin and his nighttime long-acting insulin tonight and does not understand why his glucose would be elevated. Discussed plan to give him a dose of insulin and recheck his glucose level after observation. He agrees with this plan. Discussed need for outpatient follow-up with his PCP to have a hemoglobin recheck and further anemia work-up outpatient. No indications for admission at this time. No signs of DKA on work-up here today. He agrees with this plan. 09/08/20 02:29 The patient reports he is feeling much better now. His repeat glucose was 153. He would like to be discharged at this time. We did discuss again the plan to follow-up with his PCP for further work-up. He agrees with this plan. I did discuss with him to continue taking the Keflex that he had been prescribed, which was actually prescribed for a UTI. He does agree to do this. Departure - Departure Time of Disposition: 02:30 Disposition: Home, Self-Care 01 Clinical Impression: Hyperglycemia, Allergic reaction, Anemia UTI (urinary tract infection) Qualifiers: Urinary tract infection type: acute cystitis Hematuria presence: with hematuria Qualified Code(s): N30.01 - Acute cystitis with hematuria - Discharge Information Instructions: Preventing Iron Deficiency Anemia, Adult, Allergies, Adult, [id number], Vitamin B12 and Folate Test, Urinary Tract Infection, Adult, [id number], Hyperglycemia, [id number] Referrals: Lonny Lomas DO [Primary Care Provider] - 1 Day Forms: ED Department Discharge Additional Instructions: Your blood work today showed an elevated glucose level and anemia. Your hemoglobin was 8.6. Please call your primary care physician and discuss this with them. They will need to repeat your blood work to check if that is changing and to do a further anemia work-up as an outpatient. Return to the ER if you become dizzy, weak, or develop any difficulty breathing. Please continue to take your insulin as prescribed and closely monitor your glucose levels to ensure that they are tightly controlled. Please take the Keflex that you had been previously prescribed for your UTI. The following information is given to patients seen in the emergency department who are being discharged to home. This information is to outline your options for follow-up care. We provide all patients seen in our emergency department with a follow-up referral. The need for follow-up, as well as the timing and circumstances, are variable depending upon the specifics of your emergency department visit. If you don't have a primary care physician on staff, we will provide you with a referral. We always advise you to contact your personal physician following an emergency department visit to inform them of the circumstance of the visit and for follow-up with them and/or the need for any referrals to a consulting specialist. The emergency department will also refer you to a specialist when appropriate. This referral assures that you have the opportunity for follow-up care with a specialist. All of these measure are taken in an effort to provide you with optimal care, which includes your follow-up. Under all circumstances we always encourage you to contact your private physician who remains a resource for coordinating your care. When calling for follow-up care, please make the office aware that this follow-up is from your recent emergency room visit. If for any reason you are refused follow-up, please contact the [facility] Emergency Department at and asked to speak to the emergency department charge nurse. Sepsis Event Note (ED) - Evaluation Sepsis Screening Result: No Definite Risk - Focused Exam Vital Signs: Vital Signs Temp Pulse Resp BP Pulse Ox 09/08/20 02:45 90 15 112/80 98 09/07/20 23:28 97.3 F 100 18 147/87 H 97 - My Orders Last 24 Hours: My Active Orders 09/07/20 23:42 Saline Lock Insert [OM.PC] Stat - Assessment/Plan Last 24 Hours: My Active Orders 09/07/20 23:42 Saline Lock Insert [OM.PC] Stat
[2020-09-08] MEDS ORDERED: diphenhydrAMINE 50 MG/ML SDV IVPUSH ONE (00:09)
[2020-09-08 00:51] LABS: BLOOD UREA NITROGEN,BUN 20 mg/dL (7.0-18.0); CARBON DIOXIDE,CO2 26.3 mmol/L (21.0-32.0); CHLORIDE,CL 105 mmol/L (98-107); GLUCOSE RANDOM 417 mg/dL (74-106); LIPASE 193 U/L (73-393); POTASSIUM,K 4.4 mmol/L (3.5-5.1); SODIUM,NA 136 mmol/L (136-148)
[2020-09-08] MEDS ORDERED: 50% Dextrose in Water 50 ML Syringe IVPUSH PRN (01:01)
[2020-09-08] MEDS ORDERED: Glucagon,Human Recombinant 1 MG Vial IM PRN (01:01)
[2020-09-08] MEDS ORDERED: Insulin Regular, Human 100 Units/ML 10 ML Vial IVPUSH ONE (01:01)
[2020-09-08] MEDS ORDERED: cefTRIAXone 1 GM in Premix Bag 1 BAG IV ONE (01:02)
[2020-09-08 02:45] VITALS: BP 112/80; PULSE 90
== END 2020-09-08 02:45 | disposition home or self-care (01) ==
LOC: MW.ED 22:08
DX: T78.40XA Allergy, unspecified, initial encounter (principal); N30.01 Acute cystitis with hematuria; D64.9 Anemia, unspecified; E10.65 Type 1 diabetes mellitus with hyperglycemia; Z88.0 Allergy status to penicillin; Z88.5 Allergy status to narcotic agent
CPT/HCPCS: 36415; 80053; 81001; 82009; 82803; 82947; 83690; 85025; 93005; 96365; 96375; 99284; J0696; J1200; J1815; J1885; J2405; J7030; 93010

== ENCOUNTER 2020-09-11 22:16 | Emergency (ER) | payer MEDICAID ==
[2020-09-11] MEDS ORDERED: Sodium Chloride 0.9% 10 ML Syringe FLUSH PRN (23:12)
[2020-09-11] MEDS ORDERED: Ondansetron 4 MG/2 ML SDV IVPUSH ONE (23:12)
[2020-09-11] MEDS ORDERED: Sodium Chloride 0.9% 2,000 ML IV ONE (23:12)
[2020-09-11] MEDS ORDERED: Sodium Chloride 0.9% 2.5 ML Syringe FLUSH PRN (23:12)
[2020-09-11] MEDS ORDERED: diphenhydrAMINE 50 MG/ML SDV IVPUSH ONE (23:14)
--- NOTE | 2020-09-11 23:17 | EDM.PDOC ---
ED HPI GENERAL MEDICAL PROBLEM - General Chief Complaint: Diabetic Complaint Stated Complaint: NUASIA FEELING ITCHY Time Seen by Provider: 09/11/20 23:01 - History of Present Illness INITIAL COMMENTS - FREE TEXT/NARRATIVE: 24-year-old male with a history of DKA and type 1 diabetes who is presenting with nausea vomiting and abdominal pain and sugar that was reading high. Patient woke up this morning with a sugar of around 99. He reports that the blood sugar gradually climbed throughout the day despite taking what should have been corrective insulin. This evening he had some shrimp. He has been wondering if he is allergic to seafood shortly after eating the shrimp he developed nausea vomiting and diffuse itching. When his blood sugar simply read high and so he presents here. No chest pain or shortness of breath no fever no myalgias. Symptoms constant and progressive without alleviating factors radiation or other associated symptom. Abdomen Pain Score (Numeric/FACES): 8 - Related Data Allergies Allergy/AdvReac Type Severity Reaction Status Date / Time amoxicillin Allergy Mild Nausea and Verified 09/11/20 22:57 Vomiting morphine Allergy Mild Itching Verified 09/11/20 22:57 seafood Allergy Severe Vomiting Uncoded 09/11/20 22:58 Home Meds: Home Meds Insulin Aspart [NovoLOG] 10 - 15 unit SUBCUT TIDAC 08/22/20 [History] Insulin Glarg,Human.Rec.Analog [Lantus Solostar] 15 units SUBCUT BID 08/22/20 [History] Metoclopramide HCl [Reglan] 10 mg PO BEDTIME 08/22/20 [History] Ondansetron [Zofran ODT] 4 mg PO Q6H PRN #8 tab.dis 08/22/20 [Rx] Past Medical History - Past Health History Medical/Surgical History: Denies Medical/Surgical History HEENT History: Reports: None Other HEENT History: ear ache, broken and missing teeth Cardiovascular History: Reports: None Respiratory History: Reports: None Gastrointestinal History: Reports: Irritable Bowel Syndrome Other Gastrointestinal History: gastroparesis Genitourinary History: Reports: Pyelonephritis, Other (See Below) Other Genitourinary History: hydronephrosis, neurogenic bladder Musculoskeletal History: Reports: Fracture Other Musculoskeletal History: Elbow long time ago Neurological History: Reports: None Psychiatric History: Reports: Anxiety, Depression Endocrine/Metabolic History: Reports: Diabetes, Type I Other Endocrine/Metabolic History: non-compliant to DM medications Insulin Pump Model and Cargo Bracer: None Hematologic History: Reports: None Immunologic History: Reports: None Oncologic (Cancer) History: Reports: None Dermatologic History: Reports: Other (See Below) Other Dermatologic History: dry itchy skin - Infectious Disease History Infectious Disease History: Reports: None - Past Surgical History Head Surgeries/Procedures: Reports: None HEENT Surgical History: Reports: None GI Surgical History: Reports: None Male Surgical History: Reports: None Endocrine Surgical History: Reports: None Musculoskeletal Surgical History: Reports: None Dermatological Surgical History: Reports: None Social & Family History - Family History Family Medical History: No Pertinent Family History OBGYN: Reports: Endocrine/Metabolic: Reports: Diabetes, Type I, Diabetes, type II - Caffeine Use Caffeine Use: Reports: None - Living Situation & Occupation Living situation: Reports: Single, with Family Occupation: Unemployed ED ROS GENERAL - Review of Systems Review Of Systems: See Below Free Text/Narrative/Comment: General: No fever. Skin: Per HPI Eyes: No vision problems. ENT: No sore throat. Neck: No neck stiffness. Respiratory: No shortness of breath. Cardiac: No chest pain. Gastrointestinal: Per HPI Urinary: No dysuria. Musculoskeletal: No myalgias/arthralgias. Neurologic: No headache. ED EXAM GENERAL NO PERIP PULSE - Physical Exam Exam: See Below Text/Narrative:: General Appearance: No acute distress, appears comfortable Skin: No rash HEENT: Normocephalic/atraumatic, sclera anicteric, mucous membranes dry Neck: Normal range of motion Chest and Lungs: Bilateral breath sounds, clear to auscultation Cardiovascular: Regular rate and rhythm, no murmur Abdomen: Soft, non-tender Back: Normal Musculoskeletal: No edema or tenderness Neurologic: Awake, alert, no obvious deficits, moving all extremities Psychiatric: Appropriate, cooperative Course - Vital Signs Last Recorded V/S: Last Vital Signs Temp 98.0 F 09/11/20 22:52 Pulse 92 09/12/20 00:33 Resp 18 09/12/20 00:33 BP 121/75 09/12/20 00:33 Pulse Ox 96 09/12/20 00:33 - Orders/Labs/Meds Orders: Active Orders 24 hr Category Date Time Status Dextrose 50% in Water Med 09/11/20 23:51 Active 50 ml IVPUSH ASDIRECTED PRN Glucagon,Human Recombinant [GlucaGen] Med 09/11/20 23:51 Active 1 mg IM ASDIRECTED PRN Sodium Chloride 0.9% [Saline Flush] Med 09/11/20 23:12 Active 10 ml FLUSH ASDIRECTED PRN Sodium Chloride 0.9% [Saline Flush] Med 09/11/20 23:12 Active 2.5 ml FLUSH ASDIRECTED PRN Saline Lock Insert [OM.PC] Stat Ot 09/11/20 23:13 Ordered Medication Orders Dextrose/Water (50% Dextrose In Water 50 Ml Syringe) 50 ml IVPUSH ASDIRECTED PRN PRN Reason: Hypoglycemia Glucagon (Glucagon,Human Recombinant 1 Mg Vial) 1 mg IM ASDIRECTED PRN PRN Reason: Hypoglycemia Sodium Chloride (Sodium Chloride 0.9% 10 Ml Syringe) 10 ml FLUSH ASDIRECTED PRN PRN Reason: Keep Vein Open Sodium Chloride (Sodium Chloride 0.9% 2.5 Ml Syringe) 2.5 ml FLUSH ASDIRECTED PRN PRN Reason: Keep Vein Open Labs: Laboratory Tests 09/11/20 09/11/20 09/11/20 Range/Units 23:03 23:20 23:30 WBC 5.26 (4.0-11.0) K/uL RBC 3.55 L (4.50-5.90) M/uL Hgb 9.3 L (13.0-17.0) g/dL Hct 29.2 L (38.0-50.0) % MCV 82.3 (80.0-98.0) fL MCH 26.2 L (27.0-32.0) pg MCHC 31.8 (31.0-37.0) g/dL RDW Std Deviation 44.7 (28.0-62.0) fl RDW Coeff of Erika 15 (11.0-15.0) % Plt Count 224 (150-400) K/uL MPV 9.60 (7.40-12.00) fL Neut % (Auto) 71.1 (48.0-80.0) % Lymph % (Auto) 22.8 (16.0-40.0) % [place] % (Auto) 4.0 (0.0-15.0) % Eos % (Auto) 1.7 (0.0-7.0) % Baso % (Auto) 0.4 (0.0-1.5) % Neut # (Auto) 3.7 (1.4-5.7) K/uL Lymph # (Auto) 1.2 (0.6-2.4) K/uL [place] # (Auto) 0.2 (0.0-0.8) K/uL Eos # (Auto) 0.1 (0.0-0.7) K/uL Baso # (Auto) 0.0 (0.0-0.1) K/uL Nucleated RBC % 0.0 /100WBC Nucleated RBCs # 0 K/uL VBG pH (7.31-7.41) VBG pCO2 (41-51) mmHG VBG pO2 mmHG VBG HCO3 (23-28) mEq/L VBG Total CO2 (24-29) mmol/L VBG Base Excess (-2.0-3.0) Sodium (136-148) mmol/L Potassium (3.5-5.1) mmol/L Chloride (98-107) mmol/L Carbon Dioxide (21.0-32.0) mmol/L BUN (7.0-18.0) mg/dL Creatinine (0.8-1.3) mg/dL Est Cr Clr Drug Dosing mL/min Estimated GFR (MDRD) ml/min Glucose (74-106) mg/dL POC Glucose 507 H* (70-99) mg/dL Calcium (8.5-10.1) mg/dL Magnesium (1.8-2.4) mg/dL Total Bilirubin (0.2-1.0) mg/dL AST (15-37) IU/L ALT (14-63) IU/L Alkaline Phosphatase (46-116) U/L Total Protein (6.4-8.2) g/dL Albumin (3.4-5.0) g/dL Globulin (2.6-4.0) g/dL Albumin/Globulin Ratio (0.9-1.6) Lipase (73-393) U/L Urine Color YELLOW Urine Appearance CLEAR Urine pH 6.0 (5.0-8.0) Ur Specific [place] 1.010 (1.001-1.035) Urine Protein 30 H (NEGATIVE) mg/dL Urine Glucose (UA) >=1000 (NEGATIVE) mg/dL Urine Ketones TRACE H (NEGATIVE) mg/dL Urine Occult Blood TRACE-INTACT H (NEGATIVE) Urine Nitrite NEGATIVE (NEGATIVE) Urine Bilirubin NEGATIVE (NEGATIVE) Urine Urobilinogen 0.2 (<2.0) EU/dL Ur Leukocyte Esterase NEGATIVE (NEGATIVE) Urine RBC 0-2 (0-2/HPF) Urine WBC 0-3 (0-5/HPF) Ur Epithelial Cells RARE (NONE-FEW) Urine Bacteria RARE (NEGATIVE) Ketones (NEG) 09/11/20 09/11/20 09/11/20 Range/Units 23:30 23:30 23:30 WBC (4.0-11.0) K/uL RBC (4.50-5.90) M/uL Hgb (13.0-17.0) g/dL Hct (38.0-50.0) % MCV (80.0-98.0) fL MCH (27.0-32.0) pg MCHC (31.0-37.0) g/dL RDW Std Deviation (28.0-62.0) fl RDW Coeff of Erika (11.0-15.0) % Plt Count (150-400) K/uL MPV (7.40-12.00) fL Neut % (Auto) (48.0-80.0) % Lymph % (Auto) (16.0-40.0) % [place] % (Auto) (0.0-15.0) % Eos % (Auto) (0.0-7.0) % Baso % (Auto) (0.0-1.5) % Neut # (Auto) (1.4-5.7) K/uL Lymph # (Auto) (0.6-2.4) K/uL [place] # (Auto) (0.0-0.8) K/uL Eos # (Auto) (0.0-0.7) K/uL Baso # (Auto) (0.0-0.1) K/uL Nucleated RBC % /100WBC Nucleated RBCs # K/uL VBG pH 7.39 (7.31-7.41) VBG pCO2 43 (41-51) mmHG VBG pO2 109 mmHG VBG HCO3 26 (23-28) mEq/L VBG Total CO2 27 (24-29) mmol/L VBG Base Excess 1.0 (-2.0-3.0) Sodium 138 (136-148) mmol/L Potassium 4.8 (3.5-5.1) mmol/L Chloride 105 (98-107) mmol/L Carbon Dioxide 28.0 (21.0-32.0) mmol/L BUN 32 H (7.0-18.0) mg/dL Creatinine 1.4 H (0.8-1.3) mg/dL Est Cr Clr Drug Dosing 63.72 mL/min Estimated GFR (MDRD) > 60.0 ml/min Glucose 555 H* (74-106) mg/dL POC Glucose (70-99) mg/dL Calcium 8.7 (8.5-10.1) mg/dL Magnesium 2.4 (1.8-2.4) mg/dL Total Bilirubin 0.2 (0.2-1.0) mg/dL AST 14 L (15-37) IU/L ALT 20 (14-63) IU/L Alkaline Phosphatase 92 (46-116) U/L Total Protein 7.5 (6.4-8.2) g/dL Albumin 2.9 L (3.4-5.0) g/dL Globulin 4.6 H (2.6-4.0) g/dL Albumin/Globulin Ratio 0.6 L (0.9-1.6) Lipase 68 L (73-393) U/L Urine Color Urine Appearance Urine pH (5.0-8.0) Ur Specific [place] (1.001-1.035) Urine Protein (NEGATIVE) mg/dL Urine Glucose (UA) (NEGATIVE) mg/dL Urine Ketones (NEGATIVE) mg/dL Urine Occult Blood (NEGATIVE) Urine Nitrite (NEGATIVE) Urine Bilirubin (NEGATIVE) Urine Urobilinogen (<2.0) EU/dL Ur Leukocyte Esterase (NEGATIVE) Urine RBC (0-2/HPF) Urine WBC (0-5/HPF) Ur Epithelial Cells (NONE-FEW) Urine Bacteria (NEGATIVE) Ketones NEGATIVE (NEG) 09/12/20 Range/Units 00:30 WBC (4.0-11.0) K/uL RBC (4.50-5.90) M/uL Hgb (13.0-17.0) g/dL Hct (38.0-50.0) % MCV (80.0-98.0) fL MCH (27.0-32.0) pg MCHC (31.0-37.0) g/dL RDW Std Deviation (28.0-62.0) fl RDW Coeff of Erika (11.0-15.0) % Plt Count (150-400) K/uL MPV (7.40-12.00) fL Neut % (Auto) (48.0-80.0) % Lymph % (Auto) (16.0-40.0) % [place] % (Auto) (0.0-15.0) % Eos % (Auto) (0.0-7.0) % Baso % (Auto) (0.0-1.5) % Neut # (Auto) (1.4-5.7) K/uL Lymph # (Auto) (0.6-2.4) K/uL [place] # (Auto) (0.0-0.8) K/uL Eos # (Auto) (0.0-0.7) K/uL Baso # (Auto) (0.0-0.1) K/uL Nucleated RBC % /100WBC Nucleated RBCs # K/uL VBG pH (7.31-7.41) VBG pCO2 (41-51) mmHG VBG pO2 mmHG VBG HCO3 (23-28) mEq/L VBG Total CO2 (24-29) mmol/L VBG Base Excess (-2.0-3.0) Sodium (136-148) mmol/L Potassium (3.5-5.1) mmol/L Chloride (98-107) mmol/L Carbon Dioxide (21.0-32.0) mmol/L BUN (7.0-18.0) mg/dL Creatinine (0.8-1.3) mg/dL Est Cr Clr Drug Dosing mL/min Estimated GFR (MDRD) ml/min Glucose (74-106) mg/dL POC Glucose 298 H (70-99) mg/dL Calcium (8.5-10.1) mg/dL Magnesium (1.8-2.4) mg/dL Total Bilirubin (0.2-1.0) mg/dL AST (15-37) IU/L ALT (14-63) IU/L Alkaline Phosphatase (46-116) U/L Total Protein (6.4-8.2) g/dL Albumin (3.4-5.0) g/dL Globulin (2.6-4.0) g/dL Albumin/Globulin Ratio (0.9-1.6) Lipase (73-393) U/L Urine Color Urine Appearance Urine pH (5.0-8.0) Ur Specific [place] (1.001-1.035) Urine Protein (NEGATIVE) mg/dL Urine Glucose (UA) (NEGATIVE) mg/dL Urine Ketones (NEGATIVE) mg/dL Urine Occult Blood (NEGATIVE) Urine Nitrite (NEGATIVE) Urine Bilirubin (NEGATIVE) Urine Urobilinogen (<2.0) EU/dL Ur Leukocyte Esterase (NEGATIVE) Urine RBC (0-2/HPF) Urine WBC (0-5/HPF) Ur Epithelial Cells (NONE-FEW) Urine Bacteria (NEGATIVE) Ketones (NEG) Meds: Medications Generic Name Dose Route Start Last Admin Trade Name Mary PRN Reason Stop Dose Admin Dextrose/Water 50 ml 09/11/20 23:51 50% Dextrose In Water 50 Ml Syringe IVPUSH ASDIRECTED PRN Hypoglycemia Glucagon 1 mg 09/11/20 23:51 Glucagon,Human Recombinant 1 Mg Vial IM ASDIRECTED PRN Hypoglycemia Sodium Chloride 10 ml 09/11/20 23:12 Sodium Chloride 0.9% 10 Ml Syringe FLUSH ASDIRECTED PRN Keep Vein Open Sodium Chloride 2.5 ml 09/11/20 23:12 Sodium Chloride 0.9% 2.5 Ml Syringe FLUSH ASDIRECTED PRN Keep Vein Open Discontinued Medications Generic Name Dose Route Start Last Admin Trade Name Mary PRN Reason Stop Dose Admin Diphenhydramine HCl 25 mg 09/11/20 23:14 09/11/20 23:17 Diphenhydramine 50 Mg/Ml Sdv IVPUSH 09/11/20 23:15 25 mg ONETIME ONE Administration Sodium Chloride 2,000 mls @ 999 mls/hr 09/11/20 23:12 09/11/20 23:17 Normal Saline IV 09/12/20 01:12 999 mls/hr .Bolus ONE Administration Insulin Human Regular 10 unit 09/11/20 23:51 09/12/20 00:01 Insulin Regular, Human 100 Units/Ml 10 Ml Vial IVPUSH 09/11/20 23:52 10 unit ONETIME ONE Administration Protocol Ondansetron HCl 4 mg 09/11/20 23:12 09/11/20 23:18 Ondansetron 4 Mg/2 Ml Sdv IVPUSH 09/11/20 23:13 4 mg ONETIME ONE Administration Departure - Departure Time of Disposition: 01:33 Disposition: Home, Self-Care 01 Condition: Good Clinical Impression: Hyperglycemia, Shrimp allergy - Discharge Information *PRESCRIPTION DRUG MONITORING PROGRAM REVIEWED*: Not Applicable *COPY OF PRESCRIPTION DRUG MONITORING REPORT IN PATIENT HANY: Not Applicable Instructions: Seafood Allergy, Hyperglycemia Forms: ED Department Discharge Additional Instructions: I would consider yourself allergic to seafood at this point. Please do not eat any more seafood. Your blood sugar improved with the IV fluids and the insulin. You are not in DKA today. Please be sure to continue to monitor your blood sugars at home and comply with your insulin regimen and other medications. I encourage you to follow-up with your primary care doctor. The following information is given to patients seen in the emergency department who are being discharged to home. This information is to outline your options for follow-up care. We provide all patients seen in our emergency department with a follow-up referral. The need for follow-up, as well as the timing and circumstances, are variable depending upon the specifics of your emergency department visit. If you don't have a primary care physician on staff, we will provide you with a referral. We always advise you to contact your personal physician following an emergency department visit to inform them of the circumstance of the visit and for follow-up with them and/or the need for any referrals to a consulting specialist. The emergency department will also refer you to a specialist when appropriate. This referral assures that you have the opportunity for follow-up care with a specialist. All of these measure are taken in an effort to provide you with optimal care, which includes your follow-up. Under all circumstances we always encourage you to contact your private physician who remains a resource for coordinating your care. When calling for follow-up care, please make the office aware that this follow-up is from your recent emergency room visit. If for any reason you are refused follow-up, please contact the [facility] Emergency Department at and asked to speak to the emergency department charge nurse. Sepsis Event Note (ED) - Evaluation Sepsis Screening Result: No Definite Risk - Focused Exam Vital Signs: Vital Signs Temp Pulse Resp BP Pulse Ox 09/12/20 00:33 92 18 121/75 96 09/12/20 00:10 101 H 166/107 H 98 09/11/20 22:52 98.0 F 100 16 117/72 97 - My Orders Last 24 Hours: My Active Orders 09/11/20 23:12 Sodium Chloride 0.9% [Saline Flush] 10 ml FLUSH ASDIRECTED PRN Sodium Chloride 0.9% [Saline Flush] 2.5 ml FLUSH ASDIRECTED PRN 09/11/20 23:13 Saline Lock Insert [OM.PC] Stat 09/11/20 23:51 Dextrose 50% in Water 50 ml IVPUSH ASDIRECTED PRN Glucagon,Human Recombinant [GlucaGen] 1 mg IM ASDIRECTED PRN - Assessment/Plan Last 24 Hours: My Active Orders 09/11/20 23:12 Sodium Chloride 0.9% [Saline Flush] 10 ml FLUSH ASDIRECTED PRN Sodium Chloride 0.9% [Saline Flush] 2.5 ml FLUSH ASDIRECTED PRN 09/11/20 23:13 Saline Lock Insert [OM.PC] Stat 09/11/20 23:51 Dextrose 50% in Water 50 ml IVPUSH ASDIRECTED PRN Glucagon,Human Recombinant [GlucaGen] 1 mg IM ASDIRECTED PRN Assessment:: 24-year-old male presenting with signs and symptoms that would be consistent with food allergy would also be consistent with DKA blood sugar reading high. 2 L of IV fluid of been ordered CBC CMP VBG ketones as well. Zofran and Benadryl to start as well. 2350: VBG not consistent with DKA and 10 units of IV insulin has been ordered. 0120: Labs unremarkable with no signs of DKA. Patient's symptoms are somewhat improved and repeat Accu-Chek is 290. Will repeat Accu-Chek 1 additional time if it is continuing to improve then patient will likely safe for discharge. 0133: Repeat blood sugar improved to 153 discharge with follow-up.
[2020-09-11] MEDS ORDERED: 50% Dextrose in Water 50 ML Syringe IVPUSH PRN (23:51)
[2020-09-11] MEDS ORDERED: Glucagon,Human Recombinant 1 MG Vial IM PRN (23:51)
[2020-09-11] MEDS ORDERED: Insulin Regular, Human 100 Units/ML 10 ML Vial IVPUSH ONE (23:51)
[2020-09-12] LABS: BLOOD UREA NITROGEN,BUN 32 mg/dL (7.0-18.0); CHLORIDE,CL 105 mmol/L (98-107); LIPASE 68 U/L (73-393); POTASSIUM,K 4.8 mmol/L (3.5-5.1); SODIUM,NA 138 mmol/L (136-148)
[2020-09-12 00:01] LABS: GLUCOSE RANDOM 555 mg/dL (74-106)
[2020-09-12 01:42] VITALS: BP 109/66; PULSE 81
== END 2020-09-12 01:41 | disposition home or self-care (01) ==
LOC: MW.ED 22:16
DX: T78.1XXA Other adverse food reactions, not elsewhere classified, initial encounter (principal); E10.65 Type 1 diabetes mellitus with hyperglycemia; Z88.0 Allergy status to penicillin; Z88.5 Allergy status to narcotic agent; Z91.013 Allergy to seafood
CPT/HCPCS: 36415; 80053; 81001; 82009; 82803; 82947; 83690; 83735; 85025; 96374; 96375; 99284; J1200; J2405; J7030; J1815-GY

== ENCOUNTER 2020-09-12 18:32 | Emergency (ER) | payer MEDICAID ==
[2020-09-12] MEDS ORDERED: Sodium Chloride 0.9% 2.5 ML Syringe FLUSH PRN (19:02)
[2020-09-12] MEDS ORDERED: Sodium Chloride 0.9% 10 ML Syringe FLUSH PRN (19:02)
[2020-09-12] MEDS ORDERED: Morphine 4 MG/ML Syringe IVPUSH ONE ×2 (19:03→21:34)
[2020-09-12] MEDS ORDERED: Sodium Chloride 0.9% 1,000 ML IV ONE ×2 (19:03→21:34)
[2020-09-12] MEDS ORDERED: diphenhydrAMINE 50 MG/ML SDV IVPUSH ONE (19:03)
[2020-09-12] MEDS ORDERED: Ondansetron 4 MG/2 ML SDV IVPUSH ONE (19:03)
--- NOTE | 2020-09-12 19:18 | EDM.PDOC ---
ED HPI GENERAL MEDICAL PROBLEM - General Chief Complaint: Diabetic Complaint Stated Complaint: vomitting type 1 diabetic Time Seen by Provider: 09/12/20 18:57 - History of Present Illness INITIAL COMMENTS - FREE TEXT/NARRATIVE: 24-year-old male with a history of type 1 diabetes presenting with nausea vomiting abdominal pain. Patient was seen last night for exceptionally high blood sugar of over 500. At that time he had some itching across his skin in the back of his throat that he attributed to eating shrimp shortly prior to arrival when he had a suspicion of seafood allergy. He was not in DKA at that time he was given insulin and IV fluid his blood sugar was brought down into the mid 200s he felt better tolerated p.o. and went home. He was able to have some soup when he got home. However, after he woke up again he had recurrence of generalized abdominal pain associated with nausea vomiting and p.o. intolerance. He also reports a return of itching to his back. His last bowel movement was yesterday and was normal for him. He has no history of abdominal surgeries but does have a history of peptic ulcer disease. He notes that his blood sugars have been relatively good today he did have a brief spike to 320. However he has for the most part been below 200 which is quite excellent control for him. He denies fevers no cough or shortness of breath or chest pain. left abdomen Pain Score (Numeric/FACES): 5 - Related Data Allergies Allergy/AdvReac Type Severity Reaction Status Date / Time amoxicillin Allergy Mild Nausea and Verified 09/12/20 18:51 Vomiting morphine Allergy Mild Itching Verified 09/12/20 18:51 seafood Allergy Severe Vomiting Uncoded 09/12/20 18:51 Home Meds: Home Meds Insulin Aspart [NovoLOG] 10 - 15 unit SUBCUT TIDAC 08/22/20 [History] Insulin Glarg,Human.Rec.Analog [Lantus Solostar] 15 units SUBCUT BID 08/22/20 [History] Metoclopramide HCl [Reglan] 10 mg PO BEDTIME 08/22/20 [History] Ondansetron [Zofran ODT] 4 mg PO Q6H PRN #8 tab.dis 08/22/20 [Rx] Past Medical History - Past Health History Medical/Surgical History: Denies Medical/Surgical History HEENT History: Reports: None Other HEENT History: ear ache, broken and missing teeth Cardiovascular History: Reports: None Respiratory History: Reports: None Gastrointestinal History: Reports: Irritable Bowel Syndrome Other Gastrointestinal History: gastroparesis Genitourinary History: Reports: Pyelonephritis, Other (See Below) Other Genitourinary History: hydronephrosis, neurogenic bladder Musculoskeletal History: Reports: Fracture Other Musculoskeletal History: Elbow long time ago Neurological History: Reports: None Psychiatric History: Reports: Anxiety, Depression Endocrine/Metabolic History: Reports: Diabetes, Type I Other Endocrine/Metabolic History: non-compliant to DM medications Insulin Pump Model and Medical Technologist: None Hematologic History: Reports: None Immunologic History: Reports: None Oncologic (Cancer) History: Reports: None Dermatologic History: Reports: Other (See Below) Other Dermatologic History: dry itchy skin - Infectious Disease History Infectious Disease History: Reports: None - Past Surgical History Head Surgeries/Procedures: Reports: None HEENT Surgical History: Reports: None GI Surgical History: Reports: None Male Surgical History: Reports: None Endocrine Surgical History: Reports: None Musculoskeletal Surgical History: Reports: None Dermatological Surgical History: Reports: None Social & Family History - Family History Family Medical History: No Pertinent Family History OBGYN: Reports: Endocrine/Metabolic: Reports: Diabetes, Type I, Diabetes, type II - Tobacco Use Tobacco Use Status *Q: Never Tobacco User Second Hand Smoke Exposure: No - Caffeine Use Caffeine Use: Reports: None - Recreational Drug Use Recreational Drug Use: No - Living Situation & Occupation Living situation: Reports: Single, with Family Occupation: Unemployed ED ROS GENERAL - Review of Systems Review Of Systems: See Below Free Text/Narrative/Comment: General: No fever. Skin: No rash. Eyes: No vision problems. ENT: No sore throat. Neck: No neck stiffness. Respiratory: No shortness of breath. Cardiac: No chest pain. Gastrointestinal: Per HPI Urinary: No dysuria. Musculoskeletal: No myalgias/arthralgias. Neurologic: No headache. ED EXAM GENERAL NO PERIP PULSE - Physical Exam Exam: See Below Text/Narrative:: General Appearance: No acute distress, appears comfortable Skin: No rash HEENT: Normocephalic/atraumatic, sclera anicteric, mucous membranes dry Neck: Normal range of motion Chest and Lungs: Bilateral breath sounds, clear to auscultation Cardiovascular: Regular rate and rhythm, no murmur Abdomen: Diffuse tenderness without guarding or rebound Back: Normal Musculoskeletal: No edema or tenderness Neurologic: Awake, alert, no obvious deficits, moving all extremities Psychiatric: Appropriate, cooperative Course - Vital Signs Last Recorded V/S: Last Vital Signs Temp 98 F 09/13/20 00:00 Pulse 92 09/13/20 00:00 Resp 18 09/13/20 00:00 BP 125/95 H 09/13/20 00:00 Pulse Ox 98 09/13/20 00:00 - Orders/Labs/Meds Orders: Active Orders 24 hr Category Date Time Status Accu Check [Blood Glucose Check, Bedside] [RC] ONETIME Care 09/12/20 23:55 Active Dextrose 50% in Water Med 09/13/20 00:02 Active 50 ml IVPUSH ASDIRECTED PRN Glucagon,Human Recombinant [GlucaGen] Med 09/13/20 00:02 Active 1 mg IM ASDIRECTED PRN Sodium Chloride 0.9% [Saline Flush] Med 09/12/20 19:02 Active 10 ml FLUSH ASDIRECTED PRN Sodium Chloride 0.9% [Saline Flush] Med 09/12/20 19:02 Active 2.5 ml FLUSH ASDIRECTED PRN Saline Lock Insert [OM.PC] Stat Oth 09/12/20 19:02 Ordered Medication Orders Dextrose/Water (50% Dextrose In Water 50 Ml Syringe) 50 ml IVPUSH ASDIRECTED PRN PRN Reason: Hypoglycemia Glucagon (Glucagon,Human Recombinant 1 Mg Vial) 1 mg IM ASDIRECTED PRN PRN Reason: Hypoglycemia Sodium Chloride (Sodium Chloride 0.9% 10 Ml Syringe) 10 ml FLUSH ASDIRECTED PRN PRN Reason: Keep Vein Open Sodium Chloride (Sodium Chloride 0.9% 2.5 Ml Syringe) 2.5 ml FLUSH ASDIRECTED PRN PRN Reason: Keep Vein Open Labs: Laboratory Tests 09/12/20 09/12/20 09/12/20 Range/Units 19:15 19:15 19:15 WBC 4.60 (4.0-11.0) K/uL RBC 3.86 L (4.50-5.90) M/uL Hgb 10.1 L (13.0-17.0) g/dL Hct 31.5 L (38.0-50.0) % MCV 81.6 (80.0-98.0) fL MCH 26.2 L (27.0-32.0) pg MCHC 32.1 (31.0-37.0) g/dL RDW Std Deviation 45.0 (28.0-62.0) fl RDW Coeff of Erika 15 (11.0-15.0) % Plt Count 235 (150-400) K/uL MPV 9.50 (7.40-12.00) fL Neut % (Auto) 58.6 (48.0-80.0) % Lymph % (Auto) 34.6 (16.0-40.0) % [place] % (Auto) 4.1 (0.0-15.0) % Eos % (Auto) 2.0 (0.0-7.0) % Baso % (Auto) 0.7 (0.0-1.5) % Neut # (Auto) 2.7 (1.4-5.7) K/uL Lymph # (Auto) 1.6 (0.6-2.4) K/uL [place] # (Auto) 0.2 (0.0-0.8) K/uL Eos # (Auto) 0.1 (0.0-0.7) K/uL Baso # (Auto) 0.0 (0.0-0.1) K/uL Nucleated RBC % 0.0 /100WBC Nucleated RBCs # 0 K/uL VBG pH (7.31-7.41) VBG pCO2 (41-51) mmHG VBG pO2 mmHG VBG HCO3 (23-28) mEq/L VBG Total CO2 (24-29) mmol/L VBG Base Excess (-2.0-3.0) Sodium 144 (136-148) mmol/L Potassium 4.5 (3.5-5.1) mmol/L Chloride 108 H (98-107) mmol/L Carbon Dioxide 26.6 (21.0-32.0) mmol/L BUN 22 H (7.0-18.0) mg/dL Creatinine 0.9 (0.8-1.3) mg/dL Est Cr Clr Drug Dosing 99.12 mL/min Estimated GFR (MDRD) > 60.0 ml/min Glucose 272 H (74-106) mg/dL POC Glucose (70-99) mg/dL Calcium 9.3 (8.5-10.1) mg/dL Total Bilirubin 0.2 (0.2-1.0) mg/dL AST 20 (15-37) IU/L ALT 22 (14-63) IU/L Alkaline Phosphatase 88 (46-116) U/L Total Protein 7.4 (6.4-8.2) g/dL Albumin 2.8 L (3.4-5.0) g/dL Globulin 4.6 H (2.6-4.0) g/dL Albumin/Globulin Ratio 0.6 L (0.9-1.6) Lipase 46 L (73-393) U/L Urine Color YELLOW Urine Appearance CLEAR Urine pH 7.5 (5.0-8.0) Ur Specific [place] 1.025 (1.001-1.035) Urine Protein 100 H (NEGATIVE) mg/dL Urine Glucose (UA) >=1000 (NEGATIVE) mg/dL Urine Ketones NEGATIVE (NEGATIVE) mg/dL Urine Occult Blood TRACE-INTACT H (NEGATIVE) Urine Nitrite NEGATIVE (NEGATIVE) Urine Bilirubin NEGATIVE (NEGATIVE) Urine Urobilinogen 0.2 (<2.0) EU/dL Ur Leukocyte Esterase NEGATIVE (NEGATIVE) Urine RBC 1-3 (0-2/HPF) Urine WBC 2-4 (0-5/HPF) Ur Epithelial Cells OCCASIONAL (NONE-FEW) Urine Bacteria FEW (NEGATIVE) Urine Mucus LIGHT (NONE-MOD) Ketones (NEG) 09/12/20 09/12/20 09/12/20 Range/Units 19:15 19:15 19:16 WBC (4.0-11.0) K/uL RBC (4.50-5.90) M/uL Hgb (13.0-17.0) g/dL Hct (38.0-50.0) % MCV (80.0-98.0) fL MCH (27.0-32.0) pg MCHC (31.0-37.0) g/dL RDW Std Deviation (28.0-62.0) fl RDW Coeff of Erika (11.0-15.0) % Plt Count (150-400) K/uL MPV (7.40-12.00) fL Neut % (Auto) (48.0-80.0) % Lymph % (Auto) (16.0-40.0) % [place] % (Auto) (0.0-15.0) % Eos % (Auto) (0.0-7.0) % Baso % (Auto) (0.0-1.5) % Neut # (Auto) (1.4-5.7) K/uL Lymph # (Auto) (0.6-2.4) K/uL [place] # (Auto) (0.0-0.8) K/uL Eos # (Auto) (0.0-0.7) K/uL Baso # (Auto) (0.0-0.1) K/uL Nucleated RBC % /100WBC Nucleated RBCs # K/uL VBG pH 7.44 H (7.31-7.41) VBG pCO2 39 L (41-51) mmHG VBG pO2 42 mmHG VBG HCO3 26 (23-28) mEq/L VBG Total CO2 25 (24-29) mmol/L VBG Base Excess 2.1 (-2.0-3.0) Sodium (136-148) mmol/L Potassium (3.5-5.1) mmol/L Chloride (98-107) mmol/L Carbon Dioxide (21.0-32.0) mmol/L BUN (7.0-18.0) mg/dL Creatinine (0.8-1.3) mg/dL Est Cr Clr Drug Dosing mL/min Estimated GFR (MDRD) ml/min Glucose (74-106) mg/dL POC Glucose 269 H (70-99) mg/dL Calcium (8.5-10.1) mg/dL Total Bilirubin (0.2-1.0) mg/dL AST (15-37) IU/L ALT (14-63) IU/L Alkaline Phosphatase (46-116) U/L Total Protein (6.4-8.2) g/dL Albumin (3.4-5.0) g/dL Globulin (2.6-4.0) g/dL Albumin/Globulin Ratio (0.9-1.6) Lipase (73-393) U/L Urine Color Urine Appearance Urine pH (5.0-8.0) Ur Specific [place] (1.001-1.035) Urine Protein (NEGATIVE) mg/dL Urine Glucose (UA) (NEGATIVE) mg/dL Urine Ketones (NEGATIVE) mg/dL Urine Occult Blood (NEGATIVE) Urine Nitrite (NEGATIVE) Urine Bilirubin (NEGATIVE) Urine Urobilinogen (<2.0) EU/dL Ur Leukocyte Esterase (NEGATIVE) Urine RBC (0-2/HPF) Urine WBC (0-5/HPF) Ur Epithelial Cells (NONE-FEW) Urine Bacteria (NEGATIVE) Urine Mucus (NONE-MOD) Ketones NEGATIVE (NEG) 09/12/20 Range/Units 23:58 WBC (4.0-11.0) K/uL RBC (4.50-5.90) M/uL Hgb (13.0-17.0) g/dL Hct (38.0-50.0) % MCV (80.0-98.0) fL MCH (27.0-32.0) pg MCHC (31.0-37.0) g/dL RDW Std Deviation (28.0-62.0) fl RDW Coeff of Erika (11.0-15.0) % Plt Count (150-400) K/uL MPV (7.40-12.00) fL Neut % (Auto) (48.0-80.0) % Lymph % (Auto) (16.0-40.0) % [place] % (Auto) (0.0-15.0) % Eos % (Auto) (0.0-7.0) % Baso % (Auto) (0.0-1.5) % Neut # (Auto) (1.4-5.7) K/uL Lymph # (Auto) (0.6-2.4) K/uL [place] # (Auto) (0.0-0.8) K/uL Eos # (Auto) (0.0-0.7) K/uL Baso # (Auto) (0.0-0.1) K/uL Nucleated RBC % /100WBC Nucleated RBCs # K/uL VBG pH (7.31-7.41) VBG pCO2 (41-51) mmHG VBG pO2 mmHG VBG HCO3 (23-28) mEq/L VBG Total CO2 (24-29) mmol/L VBG Base Excess (-2.0-3.0) Sodium (136-148) mmol/L Potassium (3.5-5.1) mmol/L Chloride (98-107) mmol/L Carbon Dioxide (21.0-32.0) mmol/L BUN (7.0-18.0) mg/dL Creatinine (0.8-1.3) mg/dL Est Cr Clr Drug Dosing mL/min Estimated GFR (MDRD) ml/min Glucose (74-106) mg/dL POC Glucose 200 H (70-99) mg/dL Calcium (8.5-10.1) mg/dL Total Bilirubin (0.2-1.0) mg/dL AST (15-37) IU/L ALT (14-63) IU/L Alkaline Phosphatase (46-116) U/L Total Protein (6.4-8.2) g/dL Albumin (3.4-5.0) g/dL Globulin (2.6-4.0) g/dL Albumin/Globulin Ratio (0.9-1.6) Lipase (73-393) U/L Urine Color Urine Appearance Urine pH (5.0-8.0) Ur Specific [place] (1.001-1.035) Urine Protein (NEGATIVE) mg/dL Urine Glucose (UA) (NEGATIVE) mg/dL Urine Ketones (NEGATIVE) mg/dL Urine Occult Blood (NEGATIVE) Urine Nitrite (NEGATIVE) Urine Bilirubin (NEGATIVE) Urine Urobilinogen (<2.0) EU/dL Ur Leukocyte Esterase (NEGATIVE) Urine RBC (0-2/HPF) Urine WBC (0-5/HPF) Ur Epithelial Cells (NONE-FEW) Urine Bacteria (NEGATIVE) Urine Mucus (NONE-MOD) Ketones (NEG) Meds: Medications Generic Name Dose Route Start Last Admin Trade Name Freq PRN Reason Stop Dose Admin Dextrose/Water 50 ml 09/13/20 00:02 50% Dextrose In Water 50 Ml Syringe IVPUSH ASDIRECTED PRN Hypoglycemia Glucagon 1 mg 09/13/20 00:02 Glucagon,Human Recombinant 1 Mg Vial IM ASDIRECTED PRN Hypoglycemia Sodium Chloride 10 ml 09/12/20 19:02 Sodium Chloride 0.9% 10 Ml Syringe FLUSH ASDIRECTED PRN Keep Vein Open Sodium Chloride 2.5 ml 09/12/20 19:02 Sodium Chloride 0.9% 2.5 Ml Syringe FLUSH ASDIRECTED PRN Keep Vein Open Discontinued Medications Generic Name Dose Route Start Last Admin Trade Name Freq PRN Reason Stop Dose Admin Diphenhydramine HCl 50 mg 09/12/20 19:03 09/12/20 19:26 Diphenhydramine 50 Mg/Ml Sdv IVPUSH 09/12/20 19:04 50 mg ONETIME ONE Administration Sodium Chloride 1,000 mls @ 999 mls/hr 09/12/20 19:03 09/12/20 19:26 Normal Saline IV 09/12/20 20:03 999 mls/hr .Bolus ONE Administration Sodium Chloride 1,000 mls @ 999 mls/hr 09/12/20 21:34 09/12/20 21:39 Normal Saline IV 09/12/20 22:34 999 mls/hr .Bolus ONE Administration Insulin Aspart 5 unit 09/13/20 00:02 09/13/20 00:14 Insulin Aspart 100 Units/Ml 3 Ml Pen SUBCUT 09/13/20 00:03 5 units NOW STA Administration Iopamidol 100 ml 09/12/20 20:19 09/12/20 20:19 Iopamidol 755 Mg/Ml 500 Ml Multipack Bottle IVPUSH 09/12/20 20:20 100 ml ONETIME STA Administration Morphine Sulfate 4 mg 09/12/20 19:03 09/12/20 19:27 Morphine 4 Mg/Ml Syringe IVPUSH 09/12/20 19:04 4 mg ONETIME ONE Administration Morphine Sulfate 4 mg 09/12/20 21:34 09/12/20 21:41 Morphine 4 Mg/Ml Syringe IVPUSH 09/12/20 21:35 4 mg ONETIME ONE Administration Ondansetron HCl 4 mg 09/12/20 19:03 09/12/20 19:27 Ondansetron 4 Mg/2 Ml Sdv IVPUSH 09/12/20 19:04 4 mg ONETIME ONE Administration Departure - Departure Time of Disposition: 00:27 Disposition: Home, Self-Care 01 Condition: Good Clinical Impression: Abdominal pain Qualifiers: Abdominal location: upper abdomen, unspecified Qualified Code(s): R10.10 - Upper abdominal pain, unspecified - Discharge Information *PRESCRIPTION DRUG MONITORING PROGRAM REVIEWED*: Not Applicable *COPY OF PRESCRIPTION DRUG MONITORING REPORT IN PATIENT HANY: Not Applicable Instructions: Abdominal Pain, Adult Referrals: Lonny Lomas DO [Primary Care Provider] - 3 Days Forms: ED Department Discharge Additional Instructions: I cannot say with certainty what was causing your symptoms today. Your labs showed no signs of DKA. Your blood sugars have been well managed today. You do not have any sign of an active infection. I encourage you to have more frequent small meals and to keep a careful eye on your blood sugars. Please follow-up with your primary care doctor. The following information is given to patients seen in the emergency department who are being discharged to home. This information is to outline your options for follow-up care. We provide all patients seen in our emergency department with a follow-up referral. The need for follow-up, as well as the timing and circumstances, are variable depending upon the specifics of your emergency department visit. If you don't have a primary care physician on staff, we will provide you with a referral. We always advise you to contact your personal physician following an emergency department visit to inform them of the circumstance of the visit and for follow-up with them and/or the need for any referrals to a consulting specialist. The emergency department will also refer you to a specialist when appropriate. This referral assures that you have the opportunity for follow-up care with a specialist. All of these measure are taken in an effort to provide you with optimal care, which includes your follow-up. Under all circumstances we always encourage you to contact your private physician who remains a resource for coordinating your care. When calling for follow-up care, please make the office aware that this follow-up is from your recent emergency room visit. If for any reason you are refused follow-up, please contact the [facility] Emergency Department at and asked to speak to the emergency department charge nurse. Sepsis Event Note (ED) - Evaluation Sepsis Screening Result: No Definite Risk - Focused Exam Vital Signs: Vital Signs Temp Pulse Resp BP Pulse Ox 09/13/20 00:00 98 F 92 18 125/95 H 98 09/12/20 23:20 98 18 146/108 H 96 09/12/20 20:00 108 H 18 151/94 H 97 09/12/20 18:47 97.4 F 102 H 18 140/91 H 98 - My Orders Last 24 Hours: My Active Orders 09/12/20 19:02 Sodium Chloride 0.9% [Saline Flush] 10 ml FLUSH ASDIRECTED PRN Sodium Chloride 0.9% [Saline Flush] 2.5 ml FLUSH ASDIRECTED PRN Saline Lock Insert [OM.PC] Stat 09/12/20 23:55 Accu Check [Blood Glucose Check, Bedside] [RC] ONETIME 09/13/20 00:02 Dextrose 50% in Water 50 ml IVPUSH ASDIRECTED PRN Glucagon,Human Recombinant [GlucaGen] 1 mg IM ASDIRECTED PRN - Assessment/Plan Last 24 Hours: My Active Orders 09/12/20 19:02 Sodium Chloride 0.9% [Saline Flush] 10 ml FLUSH ASDIRECTED PRN Sodium Chloride 0.9% [Saline Flush] 2.5 ml FLUSH ASDIRECTED PRN Saline Lock Insert [OM.PC] Stat 09/12/20 23:55 Accu Check [Blood Glucose Check, Bedside] [RC] ONETIME 09/13/20 00:02 Dextrose 50% in Water 50 ml IVPUSH ASDIRECTED PRN Glucagon,Human Recombinant [GlucaGen] 1 mg IM ASDIRECTED PRN Assessment:: 24-year-old male with nausea vomiting abdominal pain clinical signs of dehydration. IV fluid will be given as well as morphine Zofran and Benadryl. There is no rash there is no signs of anaphylaxis. Given his blood sugars over the course of the day we cannot blame this presentation on his blood sugar. Must consider alternative etiologies including SBO gastroparesis peptic ulcer disease appendicitis diverticulitis etc. Patient is nontoxic in appearance. CBC CMP urinalysis ketones and VBG as well as CT abdomen pelvis pending. 2130: Labs with normal white blood cell count, urinalysis shows no sign of infe ction and given this though CT reflects possible pyelonephritis this is felt clinically likely he has no dysuria or hematuria. CT also reflects possibility for cholelithiasis possibly acute cholecystitis that without signs of clear obstruction. This would fit his presentation much better. And given his recurrent presentations and ultrasounds been ordered to further assess. 2335: Ultrasound does not demonstrate cholelithiasis or acute cholecystitis. Patient's white blood cell count is normal his LFTs are normal he has no focal right upper quadrant tenderness. So I do not think we can blame his symptoms on the gallbladder sludge. The development of gastroparesis is a consideration viral syndrome is a consideration. But he has no findings suggestive of focal acute bacterial infection. He says his symptoms are minimally improved. We will perform a p.o. trial. If he does well with this and his symptoms continue to improve and I think discharge is reasonable. However, if his symptoms worsen or he vomits or cannot tolerate p.o. I think admission would be most prudent for continued hydration and symptomatic management. 0030: Patient has tolerated p.o. well his symptoms of continue to improve he denies nausea or abdominal pain. Patient was given 5 units of NovoLog consistent with his sliding scale. Patient discharged home.
[2020-09-12 20:01] LABS: BLOOD UREA NITROGEN,BUN 22 mg/dL (7.0-18.0); CARBON DIOXIDE,CO2 26.6 mmol/L (21.0-32.0); CHLORIDE,CL 108 mmol/L (98-107); GLUCOSE RANDOM 272 mg/dL (74-106); LIPASE 46 U/L (73-393); POTASSIUM,K 4.5 mmol/L (3.5-5.1); SODIUM,NA 144 mmol/L (136-148)
[2020-09-12] MEDS ORDERED: Iopamidol 755 MG/ML 500 ML Multipack Bottle IVPUSH STA (20:19)
--- NOTE | 2020-09-12 20:43 | CT ---
Indication: Abdominal pain Technique: A CT volumetric acquisition was performed of the abdomen and pelvis during intravenous infusion 100 cc Isovue 370. Comparison: None available Findings: There is minimal dependent subpleural atelectasis at the lung bases. The liver and spleen demonstrate normal size and uniform enhancement. There is no evidence of inflammation within the pancreas. The gallbladder is mildly distended and there is increased density within the gallbladder lumen suggesting sludge and/or small stones. The adrenal glands appear normal. There is heterogeneous enhancement within the renal cortex of both kidneys with subtle wedge-shaped areas diminished perfusion. There is no evidence of a calculus or obstructive hydronephrosis. There is normal appearance of the abdominal aorta. There is no evidence retroperitoneal hemorrhage or lymphadenopathy. There is circumferential thickening of the bladder wall suggesting cystitis. Other no air bubbles noted within the bladder lumen. The appendix appears noninflamed within the right lower quadrant. Small intestine appears normal. There is moderate constipation. There is a trace amount of dependent fluid within the low pelvic cul de sac. Impression: Radiographic changes would indicate cystitis and bilateral pyelonephritis. Incidental finding of cholelithiasis but without evidence of bile duct dilatation or inflammation within the gallbladder wall. Please note that all CT scans at this facility use dose modulation, iterative reconstruction, and/or weight-based dosing when appropriate to reduce radiation dose to as low as reasonably achievable. Dictated by Curtis Lewis MD @ 09/12/2020 8:40:[address] Curtis Lewis @ Sep 12 2020 8:40PM
--- NOTE | 2020-09-12 23:18 | US ---
INDICATION: Abdominal pain and vomiting. COMPARISON: CT 09/12/2020. TECHNIQUE: Routine sonographic evaluation of the abdomen. FINDINGS: The liver is top normal in size measuring approximately 18.1 cm craniocaudad. No suspicious intrahepatic mass or biliary ductal dilatation. - The gallbladder is distended. There is layering sludge in the lumen of the gallbladder. Trace pericholecystic fluid. Gallbladder wall thickness is normal measuring 1-2 mm. Negative sonographic Tyler`s. - Common bile duct is within normal limits measuring 3-4 mm in diameter. - The spleen is normal measuring 10.3 cm long axis. - The right kidney measures 10.8 cm long axis. There is mild right-sided hydronephrosis. The left kidney measures approximately 12.5 cm long axis. No left-sided hydronephrosis. No perinephric fluid collection. - The visualized portions the pancreas are unremarkable. IMPRESSION: 1. Gallbladder sludge without convincing sonographic evidence of acute cholecystitis. There is a trace amount of pericholecystic fluid, but negative sonographic Tyler`s and normal gallbladder wall thickness. 2. Mild right-sided hydronephrosis. Dictated by Eric Baptiste MD @ 09/12/2020 11:14:48 PM Dictated by: Eric Baptiste MD @ 09/12/2020 23:15:47 (Electronically Signed)
[2020-09-13] MEDS ORDERED: 50% Dextrose in Water 50 ML Syringe IVPUSH PRN (00:02)
[2020-09-13] MEDS ORDERED: Insulin Aspart 100 Units/ML 3 ML Pen SUBCUT STA (00:02)
[2020-09-13] MEDS ORDERED: Glucagon,Human Recombinant 1 MG Vial IM PRN (00:02)
[2020-09-13 00:24] VITALS: BP 125/95; PULSE 92
== END 2020-09-13 00:35 | disposition home or self-care (01) ==
LOC: MW.ED 18:32
DX: R10.12 Left upper quadrant pain (principal); R10.84 Generalized abdominal pain; E10.9 Type 1 diabetes mellitus without complications; Z88.0 Allergy status to penicillin; Z88.5 Allergy status to narcotic agent; Z91.013 Allergy to seafood
CPT/HCPCS: 36415; 74177; 76705; 80053; 81001; 82009; 82803; 82947; 83690; 85025; 96374; 96375; 96376; 99284; J1200; J1815; J2270; J2405; J7030; Q9967

== ENCOUNTER 2020-09-13 12:00 | Inpatient (IN) | payer MEDICAID ==
[2020-09-13] MEDS ORDERED: Ondansetron 4 MG/2 ML SDV IVPUSH ONE (12:18)
[2020-09-13] MEDS ORDERED: Sodium Chloride 0.9% 1,000 ML IV ONE ×2 (12:18→14:27)
--- NOTE | 2020-09-13 12:48 | EDM.PDOC ---
ED HPI GENERAL MEDICAL PROBLEM - General Chief Complaint: Diabetic Complaint Stated Complaint: STOMACH PAIN Time Seen by Provider: 09/13/20 12:03 Source of Information: Reports: Patient History Limitations: Reports: No Limitations - History of Present Illness INITIAL COMMENTS - FREE TEXT/NARRATIVE: HISTORY AND PHYSICAL: History of present illness: Patient is a 24-year-old male who presents to the emergency room with complaints of nausea, vomiting, abdominal pain and generalized itching x 3 days. Patient has a history of type 1 diabetes, gastroparesis, IBS and medication no ncompliance. This is the patient's third visit this month, he has had full work-ups, CT of abdomen and pelvis and gallbladder ultrasound -all of which are normal. He states once he leaves the ER he is able to go home and sleep but when he wakes up his symptoms return. His blood sugars have not been running higher than 300, he states that that is "pretty good for me". States his itching is chronic, but believes he may have had contaminated food, he ate at a [employer] restaurant and has seafood allergy. Hasn't been able to take Benadryl at home. Patient denies any fever, chills, headache, change in vision, syncope or near syncope. Denies any chest pain, back pain, shortness of breath or cough. Denies any diarrhea, constipation or dysuria. Has not noted any blood in urine or stool. Patient has been eating and drinking appropriately. Review of systems: As per history of present illness and below otherwise all systems reviewed and negative. Past medical history: As per history of present illness and as reviewed below otherwise noncontributory. Surgical history: As per history of present illness and as reviewed below otherwise noncontributory. Social history: See social history for further information Family history: As per history of present illness and as reviewed below otherwise noncontributory. Physical exam: General: Well developed and well nourished 24 year old male. Alert and orientated x 3. Nontoxic in appearance and in no acute distress. Vital signs are stable and have been reviewed by me. Nursing notes were reviewed. HEENT: Atraumatic, normocephalic, pupils equal and reactive bilaterally, negative for conjunctival pallor or scleral icterus, mucous membranes moist, trachea midline. No drooling or trismus noted. No meningeal signs. No hot potato voice noted. Lungs: Clear to auscultation bilaterally. No wheezes, rales, or rhonchi. Chest nontender. Normal work of breathing, no accessory muscles used. Heart: S1S2, regular rate and rhythm without overt murmur, gallops, or rubs. No JVD. No peripheral edema Abdomen: Soft, nondistended, nontender. Normoactive bowel sounds. Negative for masses or costovertebral tenderness. Skin: Intact, warm, dry. No lesions or rashes noted. Hematologic: No petechiae or purpra. Mucosa appropriate color and normal nail bed color and refill. Extremities: Atraumatic, moves all extremities per self without difficulty or deficits, negative for cords or calf pain. Neurovascular unremarkable. Neuro: Awake, alert, oriented. Cranial nerves II through XII unremarkable. Cerebellum unremarkable. Motor and sensory unremarkable throughout. Exam nonfocal. Psychiatric: Mood and affect are appropriate. Normal thought process. Answering questions appropriately. Notes: *This patient was seen and evaluated during the 2019 SARS-CoV-2 novel coronavirus pandemic period. Community viral transmission is ongoing at time of this encounter and the emergency department is operating under pandemic response procedures. Patient is a 24-year-old male who presents to the emergency room with GI symptoms. He is a type I diabetic but states his sugars have been "pretty good for me". He has been seen the last 2 days in a row for the symptoms and has had full work-ups which have been normal. He states he does feel better for a while, goes home and sleeps, and when he wakes up he continues to have symptoms. Patient is actively vomiting during triage. He states he has not taken any of his home antiemetics due to vomiting. I have reviewed his previous visits which included blood work, gallbladder ultrasound, CT of the abdomen and pelvis. Today his blood sugar is 297 in triage. Patient's lab work is relatively unremarkable for patient. His blood sugar is elevated although he states he has not given himself any insulin. We will give him moderate sliding scale and recheck his blood sugar. He continues to complain of nausea and has had one episode of vomiting since IV medications. He states he is concerned that his emesis is dark in color, I agree he does appear to have some blood tinged sputum noted in the emesis bag. This is likely due to the excessive vomiting he has been having over the past several days. He states he has not seen a GI specialist in 1 to 2 years although he has been encouraged to follow-up with them. I did recommend that he follow-up with GI at [facility] to be worked up for gastritis vs PUD. We will give him Protonix and Reglan while here. Patient feels no improvement with the medications given, blood glucose has improved. I have talked with the patient about today's findings, in addition to providing specific details for plan of care. Reassessment at the time of disposition demonstrates that the patient is in no acute distress but he continues to have dark colored emesis. Again we discussed following up with GI for his intermittent/chronic abdominal/nausea/vomiting and a PUD workup. He states if he is discharged, he will "be back in a hour". I spoke with Dr Pollack who is agreeable to keeping him for observation. Patient is aware, he continues to ask for Morphine for his abdominal pain. Previously morphine had been listed as an allergy but he demanded that this be taken off of his allergy list. It was stated that morphine caused itching. Do not feel comfortable giving him this medication as he continues to complain of itching regardless of having had Benadryl. After being told multiple times that I would not be giving him any narcotics at this time he does request a GI cocktail. Diagnostics: CBC, CMP, Lipase, UA, VBG, Ketones, COVID Therapeutics: IV fluids, Toradol, Benadryl, Zofran, Reglan, GI cocktail Impression: Gastritis Type 1 diabetes Intractable vomiting Plan: Admission to Med/Surg for observation Definitive disposition and diagnosis as appropriate pending reevaluation and review of above. abdominal Pain Score (Numeric/FACES): 10 - Related Data Allergies Allergy/AdvReac Type Severity Reaction Status Date / Time amoxicillin Allergy Mild Nausea and Verified 09/13/20 12:50 Vomiting seafood Allergy Severe Vomiting Uncoded 09/13/20 12:50 Home Meds: Home Meds Insulin Aspart [NovoLOG] 10 - 15 unit SUBCUT TIDAC 08/22/20 [History] Insulin Glarg,Human.Rec.Analog [Lantus Solostar] 15 units SUBCUT BID 08/22/20 [History] Metoclopramide HCl [Reglan] 10 mg PO BEDTIME 08/22/20 [History] Ondansetron [Zofran ODT] 4 mg PO Q6H PRN #8 tab.dis 08/22/20 [Rx] Omeprazole 20 mg PO DAILY 30 Days #30 capsule. 09/13/20 [Rx] Past Medical History - Past Health History Medical/Surgical History: Denies Medical/Surgical History HEENT History: Reports: None Other HEENT History: ear ache, broken and missing teeth Cardiovascular History: Reports: None Respiratory History: Reports: None Gastrointestinal History: Reports: Irritable Bowel Syndrome Other Gastrointestinal History: gastroparesis Genitourinary History: Reports: Pyelonephritis, Other (See Below) Other Genitourinary History: hydronephrosis, neurogenic bladder Musculoskeletal History: Reports: Fracture Other Musculoskeletal History: Elbow long time ago Neurological History: Reports: None Psychiatric History: Reports: Anxiety, Depression Endocrine/Metabolic History: Reports: Diabetes, Type I Other Endocrine/Metabolic History: non-compliant to DM medications 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 Hematologic History: Reports: None Immunologic History: Reports: None Oncologic (Cancer) History: Reports: None Dermatologic History: Reports: Other (See Below) Other Dermatologic History: dry itchy skin - Infectious Disease History Infectious Disease History: Reports: None - Past Surgical History Head Surgeries/Procedures: Reports: None HEENT Surgical History: Reports: None GI Surgical History: Reports: None Male Surgical History: Reports: None Endocrine Surgical History: Reports: None Musculoskeletal Surgical History: Reports: None Dermatological Surgical History: Reports: None Social & Family History - Family History Family Medical History: No Pertinent Family History OBGYN: Reports: Endocrine/Metabolic: Reports: Diabetes, Type I, Diabetes, type II - Caffeine Use Caffeine Use: Reports: None - Living Situation & Occupation Living situation: Reports: Single, with Family Occupation: Unemployed ED ROS GENERAL - Review of Systems Review Of Systems: Comprehensive ROS is negative, except as noted in HPI. ED EXAM GENERAL NO PERIP PULSE - Physical Exam Exam: See Below (See dictation) Course - Vital Signs Last Recorded V/S: Last Vital Signs Temp 97.1 F 09/13/20 12:47 Pulse 98 09/13/20 12:47 Resp 17 09/13/20 12:47 BP 158/96 H 09/13/20 12:47 Pulse Ox 99 09/13/20 12:47 - Orders/Labs/Meds Orders: Active Orders 24 hr Category Date Time Status Admission Status [Patient Status] [ADT] Stat ADT 09/13/20 15:39 Active Blood Glucose Check, Bedside [RC] ONETIME Care 09/13/20 12:19 Active Blood Glucose Check, Bedside [RC] ONETIME Care 09/13/20 13:40 Active Communication Order [RC] STAT Care 09/13/20 14:05 Active CORONAVIRUS COVID-19 RICHIE [MOLEC] Stat Lab 09/13/20 15:35 Received UA RFX YADY AND CULT IF INDIC [URIN] Stat Lab 09/13/20 12:18 Ordered Dextrose 50% in Water Med 09/13/20 13:40 Active 50 ml IVPUSH ASDIRECTED PRN Glucagon,Human Recombinant [GlucaGen] Med 09/13/20 13:40 Active 1 mg IM ASDIRECTED PRN Medication Orders Dextrose/Water (50% Dextrose In Water 50 Ml Syringe) 50 ml IVPUSH ASDIRECTED PRN PRN Reason: Hypoglycemia Glucagon (Glucagon,Human Recombinant 1 Mg Vial) 1 mg IM ASDIRECTED PRN PRN Reason: Hypoglycemia Labs: Laboratory Tests 09/13/20 09/13/20 09/13/20 Range/Units 12:58 13:00 13:00 WBC 3.95 L (4.0-11.0) K/uL RBC 3.85 L (4.50-5.90) M/uL Hgb 9.9 L (13.0-17.0) g/dL Hct 31.6 L (38.0-50.0) % MCV 82.1 (80.0-98.0) fL MCH 25.7 L (27.0-32.0) pg MCHC 31.3 (31.0-37.0) g/dL RDW Std Deviation 44.5 (28.0-62.0) fl RDW Coeff of Erika 15 (11.0-15.0) % Plt Count 232 (150-400) K/uL MPV 9.30 (7.40-12.00) fL Neut % (Auto) 58.8 (48.0-80.0) % Lymph % (Auto) 34.4 (16.0-40.0) % [place] % (Auto) 2.8 (0.0-15.0) % Eos % (Auto) 3.5 (0.0-7.0) % Baso % (Auto) 0.5 (0.0-1.5) % Neut # (Auto) 2.3 (1.4-5.7) K/uL Lymph # (Auto) 1.4 (0.6-2.4) K/uL [place] # (Auto) 0.1 (0.0-0.8) K/uL Eos # (Auto) 0.1 (0.0-0.7) K/uL Baso # (Auto) 0.0 (0.0-0.1) K/uL Nucleated RBC % 0.0 /100WBC Nucleated RBCs # 0 K/uL VBG pH 7.36 (7.31-7.41) VBG pCO2 45 (41-51) mmHG VBG pO2 34 mmHG VBG HCO3 25 (23-28) mEq/L VBG Total CO2 27 (24-29) mmol/L VBG Base Excess 0.0 (-2.0-3.0) Sodium (136-148) mmol/L Potassium (3.5-5.1) mmol/L Chloride (98-107) mmol/L Carbon Dioxide (21.0-32.0) mmol/L BUN (7.0-18.0) mg/dL Creatinine (0.8-1.3) mg/dL Est Cr Clr Drug Dosing mL/min Estimated GFR (MDRD) ml/min Glucose (74-106) mg/dL POC Glucose 297 H (70-99) mg/dL Calcium (8.5-10.1) mg/dL Total Bilirubin (0.2-1.0) mg/dL AST (15-37) IU/L ALT (14-63) IU/L Alkaline Phosphatase (46-116) U/L Total Protein (6.4-8.2) g/dL Albumin (3.4-5.0) g/dL Globulin (2.6-4.0) g/dL Albumin/Globulin Ratio (0.9-1.6) Lipase (73-393) U/L 09/13/20 09/13/20 Range/Units 13:00 14:24 WBC (4.0-11.0) K/uL RBC (4.50-5.90) M/uL Hgb (13.0-17.0) g/dL Hct (38.0-50.0) % MCV (80.0-98.0) fL MCH (27.0-32.0) pg MCHC (31.0-37.0) g/dL RDW Std Deviation (28.0-62.0) fl RDW Coeff of Erika (11.0-15.0) % Plt Count (150-400) K/uL MPV (7.40-12.00) fL Neut % (Auto) (48.0-80.0) % Lymph % (Auto) (16.0-40.0) % [place] % (Auto) (0.0-15.0) % Eos % (Auto) (0.0-7.0) % Baso % (Auto) (0.0-1.5) % Neut # (Auto) (1.4-5.7) K/uL Lymph # (Auto) (0.6-2.4) K/uL [place] # (Auto) (0.0-0.8) K/uL Eos # (Auto) (0.0-0.7) K/uL Baso # (Auto) (0.0-0.1) K/uL Nucleated RBC % /100WBC Nucleated RBCs # K/uL VBG pH (7.31-7.41) VBG pCO2 (41-51) mmHG VBG pO2 mmHG VBG HCO3 (23-28) mEq/L VBG Total CO2 (24-29) mmol/L VBG Base Excess (-2.0-3.0) Sodium 144 (136-148) mmol/L Potassium 4.1 (3.5-5.1) mmol/L Chloride 109 H (98-107) mmol/L Carbon Dioxide 26.3 (21.0-32.0) mmol/L BUN 16 (7.0-18.0) mg/dL Creatinine 1.0 (0.8-1.3) mg/dL Est Cr Clr Drug Dosing 89.21 mL/min Estimated GFR (MDRD) > 60.0 ml/min Glucose 311 H (74-106) mg/dL POC Glucose 260 H (70-99) mg/dL Calcium 9.4 (8.5-10.1) mg/dL Total Bilirubin 0.2 (0.2-1.0) mg/dL AST 18 (15-37) IU/L ALT 23 (14-63) IU/L Alkaline Phosphatase 93 (46-116) U/L Total Protein 7.9 (6.4-8.2) g/dL Albumin 3.0 L (3.4-5.0) g/dL Globulin 4.9 H (2.6-4.0) g/dL Albumin/Globulin Ratio 0.6 L (0.9-1.6) Lipase 56 L (73-393) U/L Meds: Medications Generic Name Dose Route Start Last Admin Trade Name Freq PRN Reason Stop Dose Admin Dextrose/Water 50 ml 09/13/20 13:40 50% Dextrose In Water 50 Ml Syringe IVPUSH ASDIRECTED PRN Hypoglycemia Glucagon 1 mg 09/13/20 13:40 Glucagon,Human Recombinant 1 Mg Vial IM ASDIRECTED PRN Hypoglycemia Discontinued Medications Generic Name Dose Route Start Last Admin Trade Name Freq PRN Reason Stop Dose Admin Al Hydroxide/Mg Hydroxide 15 0 ml 09/13/20 15:56 ml/ Lidocaine HCl 5 ml PO 09/13/20 15:57 ONETIME ONE Diphenhydramine HCl 50 mg 09/13/20 12:53 09/13/20 13:00 Diphenhydramine 50 Mg/Ml Sdv IVPUSH 09/13/20 12:54 50 mg ONETIME ONE Administration Sodium Chloride 1,000 mls @ 999 mls/hr 09/13/20 12:18 09/13/20 12:58 Normal Saline IV 09/13/20 13:18 999 mls/hr STAT ONE Administration Sodium Chloride 1,000 mls @ 999 mls/hr 09/13/20 14:27 09/13/20 14:46 Normal Saline IV 09/13/20 15:27 999 mls/hr STAT ONE Administration Pantoprazole Sodium 80 mg/ 20 mls @ 420 mls/hr 09/13/20 14:32 09/13/20 14:50 Sodium Chloride IVPUSH 09/13/20 14:34 420 mls/hr ONETIME ONE Administration Insulin Human Regular 6 unit 09/13/20 13:40 09/13/20 13:56 Insulin Regular, Human 100 Units/Ml 10 Ml Vial SUBCUT 09/13/20 13:41 6 units ONETIME ONE Administration Protocol Ketorolac Tromethamine 15 mg 08/04/21 12:53 09/13/20 13:00 Ketorolac 15 Mg/Ml Sdv IVPUSH 09/13/20 12:54 15 mg NOW STA Administration Metoclopramide HCl 10 mg 09/13/20 14:27 09/13/20 14:45 Metoclopramide 10 Mg/2 Ml Sdv IV 09/13/20 14:28 10 mg ONETIME ONE Administration Ondansetron HCl 4 mg 09/13/20 12:18 09/13/20 12:59 Ondansetron 4 Mg/2 Ml Sdv IVPUSH 09/13/20 12:19 4 mg ONETIME ONE Administration Departure - Departure Time of Disposition: 15:47 Disposition: Refer to Observation Clinical Impression: Gastroenteritis Diabetes type 1, uncontrolled Qualifiers: Glycemic state: with hyperglycemia Qualified Code(s): E10.65 - Type 1 diabetes mellitus with hyperglycemia Intractable vomiting Qualifiers: Vomiting type: unspecified Nausea presence: with nausea Qualified Code(s): R11.2 - Nausea with vomiting, unspecified - Discharge Information Prescriptions: Omeprazole 20 mg PO DAILY 30 Days #30 capsule. Referrals: Lonny Lomas DO [Primary Care Provider] - Forms: ED Department Discharge Sepsis Event Note (ED) - Focused Exam Vital Signs: Vital Signs Temp Pulse Resp BP Pulse Ox 09/13/20 12:47 97.1 F 98 17 158/96 H 99 - My Orders Last 24 Hours: My Active Orders 09/13/20 12:18 UA RFX YADY AND CULT IF INDIC [URIN] Stat 09/13/20 12:19 Blood Glucose Check, Bedside [RC] ONETIME 09/13/20 13:40 Blood Glucose Check, Bedside [RC] ONETIME Dextrose 50% in Water 50 ml IVPUSH ASDIRECTED PRN Glucagon,Human Recombinant [GlucaGen] 1 mg IM ASDIRECTED PRN 09/13/20 14:05 Communication Order [RC] STAT 09/13/20 15:35 CORONAVIRUS COVID-19 RICHIE [MOLEC] Stat 09/13/20 15:39 Admission Status [Patient Status] [ADT] Stat - Assessment/Plan Last 24 Hours: My Active Orders 09/13/20 12:18 UA RFX YADY AND CULT IF INDIC [URIN] Stat 09/13/20 12:19 Blood Glucose Check, Bedside [RC] ONETIME 09/13/20 13:40 Blood Glucose Check, Bedside [RC] ONETIME Dextrose 50% in Water 50 ml IVPUSH ASDIRECTED PRN Glucagon,Human Recombinant [GlucaGen] 1 mg IM ASDIRECTED PRN 09/13/20 14:05 Communication Order [RC] STAT 09/13/20 15:35 CORONAVIRUS COVID-19 RICHIE [MOLEC] Stat 09/13/20 15:39 Admission Status [Patient Status] [ADT] Stat
[2020-09-13] MEDS ORDERED: Ketorolac 15 MG/ML SDV IVPUSH STA (12:53)
[2020-09-13] MEDS ORDERED: diphenhydrAMINE 50 MG/ML SDV IVPUSH ONE (12:53)
[2020-09-13] MEDS ORDERED: Glucagon,Human Recombinant 1 MG Vial IM PRN ×3 (13:40→16:33)
[2020-09-13] MEDS ORDERED: 50% Dextrose in Water 50 ML Syringe IVPUSH PRN ×3 (13:40→16:33)
[2020-09-13] MEDS ORDERED: Insulin Regular, Human 100 Units/ML 10 ML Vial SUBCUT ONE (13:40)
[2020-09-13 13:45] LABS: BLOOD UREA NITROGEN,BUN 16 mg/dL (7.0-18.0); CARBON DIOXIDE,CO2 26.3 mmol/L (21.0-32.0); CHLORIDE,CL 109 mmol/L (98-107); GLUCOSE RANDOM 311 mg/dL (74-106); LIPASE 56 U/L (73-393); POTASSIUM,K 4.1 mmol/L (3.5-5.1); SODIUM,NA 144 mmol/L (136-148)
[2020-09-13] MEDS ORDERED: Metoclopramide 10 MG/2 ML SDV IV ONE (14:27)
[2020-09-13] MEDS ORDERED: Pantoprazole 80 MG in Sodium Chloride 0.9% 20 ML IVPUSH ONE (14:32)
[2020-09-13] MEDS ORDERED: Alum Hydrox/Mag Hydrox/Simeth 15 ML, Lidocaine 2% 5 ML PO ONE ×2 (15:56)
--- NOTE | 2020-09-13 16:05 | PCM.HP.2 ---
<Hao Dominguez - Last Filed: 09/13/20 18:13> H&P History of Present Illness - General Date of Service: 09/13/20 Admit Problem/Dx: Admission Diagnosis/Problem Admission Diagnosis/Problem Intractable vomiting with nausea - History of Present Illness Initial Comments - Free Text/Narative: 24-year-old male presents to the emergency room with complaints of nausea, vomiting, abdominal pain and generalized itching for 3 days. Patient admitted for intractable nausea and vomiting and suspected GI bleed. Past medical history to include diabetes type 1, gastroparesis, depression, anxiety, neur ogenic bladder. Patient states past history of GI bleeds and GI ulcer. Patient states he has had an EGD performed in [place] but does not recall how long it was. Patient did say that a Doctor there told him that he had gastric ulcers present.. Patient also has history of medication noncompliance. Per documentation the patient has visited the ER numerous times in the past week for similar complaints. Patient states this morning he developed nausea, vomiting, coffee-ground emesis. Patient states that his nausea, vomiting, normal pain have increased in the last 3 days. Patient states his blood sugars have been in 2-300 range at home. Patient also complains of chronic itching. Patient denies any fever, chills, headache, chest pain, shortness of breath or cough. Patient denies constipat ion, diarrhea, dysuria, hematuria. Patient states generalized abdominal pain, bilateral flank pain, nausea and vomiting to include coffee ground emesis. Patient states he has not been able to eat or drink anything since this morning. Patient states he has been compliant with his Reglan and daily insulin. ED workup to include laboratory findings, white blood cell count 3.95, hemoglobin 9.9, sodium 144, potassium 4.1, chloride 109, BUN 16, creatinine 1.0, glucose elevated at 311, lipase 56. VBG within normal limits. Ultrasound performed 09-12-20 impression gallbladder sludge without evidence of acute cholecystitis. Gallbladder distention noted. Common bile duct within normal limits. CT abdomen pelvis performed 09-12-20 impression, changes indicating cystitis and bilateral pyelonephritis, cholelithiasis without bile duct dilatation inflammation within the gallbladder. abdominal Pain Score (Numeric/FACES): 10 - Related Data Allergies/Adverse Reactions: Allergies Allergy/AdvReac Type Severity Reaction Status Date / Time amoxicillin Allergy Mild Nausea and Verified 09/13/20 19:36 Vomiting seafood Allergy Severe Vomiting Uncoded 09/13/20 12:50 Home Medications: Home Meds Insulin Aspart [NovoLOG] 10 - 15 unit SUBCUT TIDAC 08/22/20 [History] Insulin Glarg,Human.Rec.Analog [Lantus Solostar] 15 units SUBCUT BID 08/22/20 [History] Metoclopramide HCl [Reglan] 10 mg PO BEDTIME 08/22/20 [History] Ondansetron [Zofran ODT] 4 mg PO Q6H PRN #8 tab.dis 08/22/20 [Rx] Omeprazole 20 mg PO DAILY 30 Days #30 capsule.dr 09/13/20 [Rx] Past Medical History - Past Health History Medical/Surgical History: Denies Medical/Surgical History HEENT History: Reports: None Other HEENT History: ear ache, broken and missing teeth Cardiovascular History: Reports: None Respiratory History: Reports: None Gastrointestinal History: Reports: Irritable Bowel Syndrome Other Gastrointestinal History: gastroparesis Genitourinary History: Reports: Pyelonephritis, Other (See Below) Other Genitourinary History: hydronephrosis, neurogenic bladder Musculoskeletal History: Reports: Fracture Other Musculoskeletal History: Elbow long time ago Neurological History: Reports: None Psychiatric History: Reports: Anxiety, Depression Endocrine/Metabolic History: Reports: Diabetes, Type I Other Endocrine/Metabolic History: non-compliant to DM medications Insulin Pump Model and Shredded Filler Cigar Maker Machine: None Hematologic History: Reports: None Immunologic History: Reports: None Oncologic (Cancer) History: Reports: None Dermatologic History: Reports: Other (See Below) Other Dermatologic History: dry itchy skin - Infectious Disease History Infectious Disease History: Reports: None - Past Surgical History Head Surgeries/Procedures: Reports: None HEENT Surgical History: Reports: None GI Surgical History: Reports: None Male Surgical History: Reports: None Endocrine Surgical History: Reports: None Musculoskeletal Surgical History: Reports: None Dermatological Surgical History: Reports: None Social & Family History - Family History Family Medical History: No Pertinent Family History OBGYN: Reports: Endocrine/Metabolic: Reports: Diabetes, Type I, Diabetes, type II - Tobacco Use Tobacco Use Status *Q: Never Tobacco User - Caffeine Use Caffeine Use: Reports: None - Recreational Drug Use Recreational Drug Use: No - Living Situation & Occupation Living situation: Reports: Single, with Family Occupation: Unemployed H&P Review of Systems - Review of Systems: Review Of Systems: See Below General: Reports: Weakness, Decreased Appetite. Denies: Fever, Chills Pulmonary: Denies: Shortness of Breath, Wheezing, Cough Cardiovascular: Denies: Chest Pain, Dyspnea on Exertion, Edema Gastrointestinal: Reports: Abdominal Pain, Decreased Appetite, Hematemesis, Nausea, Vomiting. Denies: Black Stool, Constipation, Diarrhea Genitourinary: Denies: Dysuria, Frequency, Burning, Urgency Psychiatric: Denies: Confusion, Depression Neurological: Denies: Confusion, Dizziness Exam - Exam Exam: See Below - Vital Signs Vital Signs: Last Vital Signs Temp 97.1 F 09/13/20 12:47 Pulse 98 09/13/20 12:47 Resp 17 09/13/20 12:47 BP 158/96 H 09/13/20 12:47 Pulse Ox 99 09/13/20 12:47 Weight: 54.431 kg - Exam General: Alert, Oriented, Cooperative Lungs: Clear to Auscultation, Normal Respiratory Effort Cardiovascular: Regular Rate, Regular Rhythm GI/Abdominal Exam: Soft, Guarding (throughout abdomen), Tender (throughout abdomen). No: No Distention Extremities: No: No Pedal Edema Neuro Extensive - Mental Status: Alert, Oriented x3 - Patient Data Lab Results Last 24 hrs: Laboratory Results - last 24 hr 09/13/20 09/13/20 09/13/20 Range/Units 12:58 13:00 13:00 WBC 3.95 L (4.0-11.0) K/uL RBC 3.85 L (4.50-5.90) M/uL Hgb 9.9 L (13.0-17.0) g/dL Hct 31.6 L (38.0-50.0) % MCV 82.1 (80.0-98.0) fL MCH 25.7 L (27.0-32.0) pg MCHC 31.3 (31.0-37.0) g/dL RDW Std Deviation 44.5 (28.0-62.0) fl RDW Coeff of Erika 15 (11.0-15.0) % Plt Count 232 (150-400) K/uL MPV 9.30 (7.40-12.00) fL Neut % (Auto) 58.8 (48.0-80.0) % Lymph % (Auto) 34.4 (16.0-40.0) % Chambers % (Auto) 2.8 (0.0-15.0) % Eos % (Auto) 3.5 (0.0-7.0) % Baso % (Auto) 0.5 (0.0-1.5) % Neut # (Auto) 2.3 (1.4-5.7) K/uL Lymph # (Auto) 1.4 (0.6-2.4) K/uL Chambers # (Auto) 0.1 (0.0-0.8) K/uL Eos # (Auto) 0.1 (0.0-0.7) K/uL Baso # (Auto) 0.0 (0.0-0.1) K/uL Nucleated RBC % 0.0 /100WBC Nucleated RBCs # 0 K/uL VBG pH 7.36 (7.31-7.41) VBG pCO2 45 (41-51) mmHG VBG pO2 34 mmHG VBG HCO3 25 (23-28) mEq/L VBG Total CO2 27 (24-29) mmol/L VBG Base Excess 0.0 (-2.0-3.0) Sodium (136-148) mmol/L Potassium (3.5-5.1) mmol/L Chloride (98-107) mmol/L Carbon Dioxide (21.0-32.0) mmol/L BUN (7.0-18.0) mg/dL Creatinine (0.8-1.3) mg/dL Est Cr Clr Drug Dosing mL/min Estimated GFR (MDRD) ml/min Glucose (74-106) mg/dL POC Glucose 297 H (70-99) mg/dL Calcium (8.5-10.1) mg/dL Total Bilirubin (0.2-1.0) mg/dL AST (15-37) IU/L ALT (14-63) IU/L Alkaline Phosphatase (46-116) U/L Total Protein (6.4-8.2) g/dL Albumin (3.4-5.0) g/dL Globulin (2.6-4.0) g/dL Albumin/Globulin Ratio (0.9-1.6) Lipase (73-393) U/L 08/04/21 08/04/21 08/04/21 Range/Units 13:00 14:24 15:55 WBC (4.0-11.0) K/uL RBC (4.50-5.90) M/uL Hgb (13.0-17.0) g/dL Hct (38.0-50.0) % MCV (80.0-98.0) fL MCH (27.0-32.0) pg MCHC (31.0-37.0) g/dL RDW Std Deviation (28.0-62.0) fl RDW Coeff of Erika (11.0-15.0) % Plt Count (150-400) K/uL MPV (7.40-12.00) fL Neut % (Auto) (48.0-80.0) % Lymph % (Auto) (16.0-40.0) % Chambers % (Auto) (0.0-15.0) % Eos % (Auto) (0.0-7.0) % Baso % (Auto) (0.0-1.5) % Neut # (Auto) (1.4-5.7) K/uL Lymph # (Auto) (0.6-2.4) K/uL Chambers # (Auto) (0.0-0.8) K/uL Eos # (Auto) (0.0-0.7) K/uL Baso # (Auto) (0.0-0.1) K/uL Nucleated RBC % /100WBC Nucleated RBCs # K/uL VBG pH (7.31-7.41) VBG pCO2 (41-51) mmHG VBG pO2 mmHG VBG HCO3 (23-28) mEq/L VBG Total CO2 (24-29) mmol/L VBG Base Excess (-2.0-3.0) Sodium 144 (136-148) mmol/L Potassium 4.1 (3.5-5.1) mmol/L Chloride 109 H (98-107) mmol/L Carbon Dioxide 26.3 (21.0-32.0) mmol/L BUN 16 (7.0-18.0) mg/dL Creatinine 1.0 (0.8-1.3) mg/dL Est Cr Clr Drug Dosing 89.21 mL/min Estimated GFR (MDRD) > 60.0 ml/min Glucose 311 H (74-106) mg/dL POC Glucose 260 H 209 H (70-99) mg/dL Calcium 9.4 (8.5-10.1) mg/dL Total Bilirubin 0.2 (0.2-1.0) mg/dL AST 18 (15-37) IU/L ALT 23 (14-63) IU/L Alkaline Phosphatase 93 (46-116) U/L Total Protein 7.9 (6.4-8.2) g/dL Albumin 3.0 L (3.4-5.0) g/dL Globulin 4.9 H (2.6-4.0) g/dL Albumin/Globulin Ratio 0.6 L (0.9-1.6) Lipase 56 L (73-393) U/L Result Diagrams: 09/13/20 13:00 09/13/20 13:00 Sepsis Event Note - Evaluation Sepsis Screening Result: No Definite Risk - Focused Exam Vital Signs: Vital Signs Temp Pulse Resp BP Pulse Ox 09/13/20 12:47 97.1 F 98 17 158/96 H 99 - Problem List (1) Gastroenteritis SNOMED Code(s): 06591483 ICD Code: K52.9 - NONINFECTIVE GASTROENTERITIS AND COLITIS, UNSPECIFIED Status: Acute Current Visit: No (2) Intractable vomiting SNOMED Code(s): 048202879 ICD Code: R11.10 - VOMITING, UNSPECIFIED Status: Acute Current Visit: Yes Qualifiers: Vomiting type: unspecified Nausea presence: with nausea Qualified Code(s ): R11.2 - Nausea with vomiting, unspecified (3) Diabetes type 1, uncontrolled SNOMED Code(s): 36989544, 304003367 ICD Code: E10.65 - TYPE 1 DIABETES MELLITUS WITH HYPERGLYCEMIA Status: Chronic Priority: Medium Current Visit: Yes Qualifiers: Glycemic state: with hyperglycemia Qualified Code(s): E10.65 - Type 1 diabetes mellitus with hyperglycemia (4) Abdominal pain SNOMED Code(s): 88249481 ICD Code: R10.9 - UNSPECIFIED ABDOMINAL PAIN Status: Acute Current Visit: Yes (5) Anemia SNOMED Code(s): 395294828 ICD Code: D64.9 - ANEMIA, UNSPECIFIED Status: Acute Current Visit: Yes (6) Chronic abdominal pain SNOMED Code(s): 191176258 ICD Code: R10.9 - UNSPECIFIED ABDOMINAL PAIN; G89.29 - OTHER CHRONIC PAIN Status: Acute Current Visit: Yes (7) Chronic vomiting SNOMED Code(s): 92083043 ICD Code: R11.10 - VOMITING, UNSPECIFIED Status: Acute Current Visit: Yes (8) Hyperglycemia SNOMED Code(s): 61061641 ICD Code: R73.9 - HYPERGLYCEMIA, UNSPECIFIED Status: Acute Current Visit: Yes (9) Itching SNOMED Code(s): 574415171 ICD Code: L29.9 - PRURITUS, UNSPECIFIED Status: Acute Current Visit: Yes (10) Upper GI bleed SNOMED Code(s): 84964074 ICD Code: K92.2 - GASTROINTESTINAL HEMORRHAGE, UNSPECIFIED Status: Acute Current Visit: No Problem List Initiated/Reviewed/Updated: Yes Orders Last 24hrs: Active Orders 24 hr Category Date Time Status Admission Status [Patient Status] [ADT] Stat ADT 09/13/20 15:39 Active Blood Glucose Check, Bedside [RC] ONETIME Care 09/13/20 12:19 Active Blood Glucose Check, Bedside [RC] ONETIME Care 09/13/20 13:40 Active Communication Order [RC] STAT Care 09/13/20 14:05 Active CORONAVIRUS COVID-19 RICHIE [MOLEC] Stat Lab 09/13/20 15:35 Received UA RFX YADY AND CULT IF INDIC [URIN] Stat Lab 09/13/20 12:18 Ordered Dextrose 50% in Water Med 09/13/20 13:40 Active 50 ml IVPUSH ASDIRECTED PRN Glucagon,Human Recombinant [GlucaGen] Med 09/13/20 13:40 Active 1 mg IM ASDIRECTED PRN Medication Orders Dextrose/Water (50% Dextrose In Water 50 Ml Syringe) 50 ml IVPUSH ASDIRECTED PRN PRN Reason: Hypoglycemia Glucagon (Glucagon,Human Recombinant 1 Mg Vial) 1 mg IM ASDIRECTED PRN PRN Reason: Hypoglycemia Assessment/Plan Comment:: Intractable nausea and vomiting- NPO, 125ml/hr N/S, (patient received 2 L N/S boluses in the ED), 40 mg IV Protonix BID, Zofran 4 mg Q4HR PRN Diabetes type 1 Sliding scale insulin, NPO will transition to diabetic diet pending vomiting/nausea status, Lantus 15 units twice daily per med rec, Reglan 5 mg every 6 hours GI bleed NPO, IV PPI, monitor CBC and vitals for any signs of hemodynamic instability. Pyelonephritis/Cystitis- Noted on CT findings, Rocephin 1g Q24hr <Miguel Pollack - Last Filed: 09/13/20 23:19> H&P History of Present Illness - General Admit Problem/Dx: Admission Diagnosis/Problem Admission Diagnosis/Problem Intractable vomiting with nausea Exam - Vital Signs Vital Signs: Last Vital Signs Temp 37.7 C 09/13/20 20:36 Pulse 104 H 09/13/20 20:36 Resp 18 09/13/20 20:36 BP 142/89 H 09/13/20 20:36 Pulse Ox 97 09/13/20 20:36 - Patient Data Lab Results Last 24 hrs: Laboratory Results - last 24 hr 09/13/20 09/13/20 09/13/20 Range/Units 12:58 13:00 13:00 WBC 3.95 L (4.0-11.0) K/uL RBC 3.85 L (4.50-5.90) M/uL Hgb 9.9 L (13.0-17.0) g/dL Hct 31.6 L (38.0-50.0) % MCV 82.1 (80.0-98.0) fL MCH 25.7 L (27.0-32.0) pg MCHC 31.3 (31.0-37.0) g/dL RDW Std Deviation 44.5 (28.0-62.0) fl RDW Coeff of Erika 15 (11.0-15.0) % Plt Count 232 (150-400) K/uL MPV 9.30 (7.40-12.00) fL Neut % (Auto) 58.8 (48.0-80.0) % Lymph % (Auto) 34.4 (16.0-40.0) % Chambers % (Auto) 2.8 (0.0-15.0) % Eos % (Auto) 3.5 (0.0-7.0) % Baso % (Auto) 0.5 (0.0-1.5) % Neut # (Auto) 2.3 (1.4-5.7) K/uL Lymph # (Auto) 1.4 (0.6-2.4) K/uL Chambers # (Auto) 0.1 (0.0-0.8) K/uL Eos # (Auto) 0.1 (0.0-0.7) K/uL Baso # (Auto) 0.0 (0.0-0.1) K/uL Nucleated RBC % 0.0 /100WBC Nucleated RBCs # 0 K/uL VBG pH 7.36 (7.31-7.41) VBG pCO2 45 (41-51) mmHG VBG pO2 34 mmHG VBG HCO3 25 (23-28) mEq/L VBG Total CO2 27 (24-29) mmol/L VBG Base Excess 0.0 (-2.0-3.0) Sodium (136-148) mmol/L Potassium (3.5-5.1) mmol/L Chloride (98-107) mmol/L Carbon Dioxide (21.0-32.0) mmol/L BUN (7.0-18.0) mg/dL Creatinine (0.8-1.3) mg/dL Est Cr Clr Drug Dosing mL/min Estimated GFR (MDRD) ml/min Glucose (74-106) mg/dL POC Glucose 297 H (70-99) mg/dL Calcium (8.5-10.1) mg/dL Phosphorus (2.6-4.7) mg/dL Magnesium (1.8-2.4) mg/dL Total Bilirubin (0.2-1.0) mg/dL AST (15-37) IU/L ALT (14-63) IU/L Alkaline Phosphatase (46-116) U/L Total Protein (6.4-8.2) g/dL Albumin (3.4-5.0) g/dL Globulin (2.6-4.0) g/dL Albumin/Globulin Ratio (0.9-1.6) Lipase (73-393) U/L SARS-CoV-2 RNA (RICHIE) (NEGATIVE) 09/13/20 09/13/20 09/13/20 Range/Units 13:00 13:00 14:24 WBC (4.0-11.0) K/uL RBC (4.50-5.90) M/uL Hgb (13.0-17.0) g/dL Hct (38.0-50.0) % MCV (80.0-98.0) fL MCH (27.0-32.0) pg MCHC (31.0-37.0) g/dL RDW Std Deviation (28.0-62.0) fl RDW Coeff of Erika (11.0-15.0) % Plt Count (150-400) K/uL MPV (7.40-12.00) fL Neut % (Auto) (48.0-80.0) % Lymph % (Auto) (16.0-40.0) % Chambers % (Auto) (0.0-15.0) % Eos % (Auto) (0.0-7.0) % Baso % (Auto) (0.0-1.5) % Neut # (Auto) (1.4-5.7) K/uL Lymph # (Auto) (0.6-2.4) K/uL Chambers # (Auto) (0.0-0.8) K/uL Eos # (Auto) (0.0-0.7) K/uL Baso # (Auto) (0.0-0.1) K/uL Nucleated RBC % /100WBC Nucleated RBCs # K/uL VBG pH (7.31-7.41) VBG pCO2 (41-51) mmHG VBG pO2 mmHG VBG HCO3 (23-28) mEq/L VBG Total CO2 (24-29) mmol/L VBG Base Excess (-2.0-3.0) Sodium 144 (136-148) mmol/L Potassium 4.1 (3.5-5.1) mmol/L Chloride 109 H (98-107) mmol/L Carbon Dioxide 26.3 (21.0-32.0) mmol/L BUN 16 (7.0-18.0) mg/dL Creatinine 1.0 (0.8-1.3) mg/dL Est Cr Clr Drug Dosing 89.21 mL/min Estimated GFR (MDRD) > 60.0 ml/min Glucose 311 H (74-106) mg/dL POC Glucose 260 H (70-99) mg/dL Calcium 9.4 (8.5-10.1) mg/dL Phosphorus 3.6 (2.6-4.7) mg/dL Magnesium 2.1 (1.8-2.4) mg/dL Total Bilirubin 0.2 (0.2-1.0) mg/dL AST 18 (15-37) IU/L ALT 23 (14-63) IU/L Alkaline Phosphatase 93 (46-116) U/L Total Protein 7.9 (6.4-8.2) g/dL Albumin 3.0 L (3.4-5.0) g/dL Globulin 4.9 H (2.6-4.0) g/dL Albumin/Globulin Ratio 0.6 L (0.9-1.6) Lipase 56 L (73-393) U/L SARS-CoV-2 RNA (RICHIE) (NEGATIVE) 09/13/20 09/13/20 09/13/20 Range/Units 15:35 15:55 17:33 WBC (4.0-11.0) K/uL RBC (4.50-5.90) M/uL Hgb (13.0-17.0) g/dL Hct (38.0-50.0) % MCV (80.0-98.0) fL MCH (27.0-32.0) pg MCHC (31.0-37.0) g/dL RDW Std Deviation (28.0-62.0) fl RDW Coeff of Erika (11.0-15.0) % Plt Count (150-400) K/uL MPV (7.40-12.00) fL Neut % (Auto) (48.0-80.0) % Lymph % (Auto) (16.0-40.0) % Chambers % (Auto) (0.0-15.0) % Eos % (Auto) (0.0-7.0) % Baso % (Auto) (0.0-1.5) % Neut # (Auto) (1.4-5.7) K/uL Lymph # (Auto) (0.6-2.4) K/uL Chambers # (Auto) (0.0-0.8) K/uL Eos # (Auto) (0.0-0.7) K/uL Baso # (Auto) (0.0-0.1) K/uL Nucleated RBC % /100WBC Nucleated RBCs # K/uL VBG pH (7.31-7.41) VBG pCO2 (41-51) mmHG VBG pO2 mmHG VBG HCO3 (23-28) mEq/L VBG Total CO2 (24-29) mmol/L VBG Base Excess (-2.0-3.0) Sodium (136-148) mmol/L Potassium (3.5-5.1) mmol/L Chloride (98-107) mmol/L Carbon Dioxide (21.0-32.0) mmol/L BUN (7.0-18.0) mg/dL Creatinine (0.8-1.3) mg/dL Est Cr Clr Drug Dosing mL/min Estimated GFR (MDRD) ml/min Glucose (74-106) mg/dL POC Glucose 209 H 147 H (70-99) mg/dL Calcium (8.5-10.1) mg/dL Phosphorus (2.6-4.7) mg/dL Magnesium (1.8-2.4) mg/dL Total Bilirubin (0.2-1.0) mg/dL AST (15-37) IU/L ALT (14-63) IU/L Alkaline Phosphatase (46-116) U/L Total Protein (6.4-8.2) g/dL Albumin (3.4-5.0) g/dL Globulin (2.6-4.0) g/dL Albumin/Globulin Ratio (0.9-1.6) Lipase (73-393) U/L SARS-CoV-2 RNA (RICHIE) NEGATIVE (NEGATIVE) 09/13/20 09/13/20 Range/Units 21:13 21:25 WBC (4.0-11.0) K/uL RBC (4.50-5.90) M/uL Hgb 10.2 L (13.0-17.0) g/dL Hct 31.8 L (38.0-50.0) % MCV (80.0-98.0) fL MCH (27.0-32.0) pg MCHC (31.0-37.0) g/dL RDW Std Deviation (28.0-62.0) fl RDW Coeff of Erika (11.0-15.0) % Plt Count (150-400) K/uL MPV (7.40-12.00) fL Neut % (Auto) (48.0-80.0) % Lymph % (Auto) (16.0-40.0) % Chambers % (Auto) (0.0-15.0) % Eos % (Auto) (0.0-7.0) % Baso % (Auto) (0.0-1.5) % Neut # (Auto) (1.4-5.7) K/uL Lymph # (Auto) (0.6-2.4) K/uL Chambers # (Auto) (0.0-0.8) K/uL Eos # (Auto) (0.0-0.7) K/uL Baso # (Auto) (0.0-0.1) K/uL Nucleated RBC % /100WBC Nucleated RBCs # K/uL VBG pH (7.31-7.41) VBG pCO2 (41-51) mmHG VBG pO2 mmHG VBG HCO3 (23-28) mEq/L VBG Total CO2 (24-29) mmol/L VBG Base Excess (-2.0-3.0) Sodium (136-148) mmol/L Potassium (3.5-5.1) mmol/L Chloride (98-107) mmol/L Carbon Dioxide (21.0-32.0) mmol/L BUN (7.0-18.0) mg/dL Creatinine (0.8-1.3) mg/dL Est Cr Clr Drug Dosing mL/min Estimated GFR (MDRD) ml/min Glucose (74-106) mg/dL POC Glucose 120 H (70-99) mg/dL Calcium (8.5-10.1) mg/dL Phosphorus (2.6-4.7) mg/dL Magnesium (1.8-2.4) mg/dL Total Bilirubin (0.2-1.0) mg/dL AST (15-37) IU/L ALT (14-63) IU/L Alkaline Phosphatase (46-116) U/L Total Protein (6.4-8.2) g/dL Albumin (3.4-5.0) g/dL Globulin (2.6-4.0) g/dL Albumin/Globulin Ratio (0.9-1.6) Lipase (73-393) U/L SARS-CoV-2 RNA (RICHIE) (NEGATIVE) Result Diagrams: 09/13/20 21:25 09/13/20 13:00 Sepsis Event Note - Focused Exam Vital Signs: Vital Signs Temp Pulse Resp BP Pulse Ox Pulse Ox 09/13/20 20:36 37.7 C 104 H 18 142/89 H 97 09/13/20 17:48 96 09/13/20 17:20 36.4 C 108 H 16 154/101 H 96 09/13/20 16:21 110 H 164/108 H 99 09/13/20 15:50 111 H 169/115 H 98 09/13/20 14:50 101 H 157/97 H 96 09/13/20 12:47 36.2 C 98 17 158/96 H 99 - Problem List (1) Coffee ground emesis SNOMED Code(s): 02660879 ICD Code: K92.0 - HEMATEMESIS Status: Acute Current Visit: Yes (2) Abdominal pain SNOMED Code(s): 59097700 ICD Code: R10.9 - UNSPECIFIED ABDOMINAL PAIN Status: Acute Current Visit: Yes (3) Intractable vomiting SNOMED Code(s): 556711053 ICD Code: R11.10 - VOMITING, UNSPECIFIED Status: Acute Current Visit: Yes Qualifiers: Vomiting type: unspecified Nausea presence: with nausea Qualified Code(s): R11.2 - Nausea with vomiting, unspecified (4) Itching SNOMED Code(s): 678492109 ICD Code: L29.9 - PRURITUS, UNSPECIFIED Status: Acute Current Visit: Yes (5) Diabetes type 1, uncontrolled SNOMED Code(s): 47218587, 206220972 ICD Code: E10.65 - TYPE 1 DIABETES MELLITUS WITH HYPERGLYCEMIA Status: Chronic Priority: Medium Current Visit: Yes Qualifiers: Glycemic state: with hyperglycemia Qualified Code(s): E10.65 - Type 1 diab etes mellitus with hyperglycemia Orders Last 24hrs: Active Orders 24 hr Category Date Time Status Admission Status [Patient Status] [ADT] Stat ADT 09/13/20 15:39 Active Accu Check [Blood Glucose Check, Bedside] [RC] Q6H Care 09/13/20 22:31 Active Antiembolic Devices [RC] PER UNIT ROUTINE Care 09/13/20 17:49 Active Blood Glucose Check, Bedside [RC] ONETIME Care 09/13/20 13:40 Active Communication Order [RC] STAT Care 09/13/20 14:05 Active Oxygen Therapy [RC] PRN Care 09/13/20 17:48 Active VTE/DVT Education [RC] PER UNIT ROUTINE Care 09/13/20 17:48 Active Vital Signs [RC] Q4H Care 09/13/20 17:48 Active NPO Now [Nothing per Oral Now Diet] [DIET] Diet 09/13/20 Breakfast Active BASIC METABOLIC PANEL,BMP [CHEM] AM Lab 09/14/20 05:11 Ordered CBC WITH AUTO DIFF [HEME] AM Lab 09/14/20 05:11 Ordered UA RFX YADY AND CULT IF INDIC [URIN] Stat Lab 09/13/20 12:18 Ordered Dextrose 5%-Lactated Ringers 1,000 ml Med 09/13/20 23:00 Active IV ASDIRECTED Dextrose 50% in Water Med 09/13/20 16:33 Active 50 ml IVPUSH ASDIRECTED PRN Glucagon,Human Recombinant [GlucaGen] Med 09/13/20 16:33 Active 1 mg IM ASDIRECTED PRN Insulin Aspart [NovoLOG] Med 09/14/20 00:00 Active See Protocol SUBCUT Q6H Lactated Ringers [Ringers, Lactated] 1,000 ml Med 09/13/20 23:00 Active IV ASDIRECTED Metoclopramide [Reglan] Med 09/13/20 21:00 Active 5 mg IVPUSH Q6H Morphine Med 09/13/20 22:30 Active 2 mg IVPUSH Q4H PRN Ondansetron [Zofran] Med 09/13/20 19:00 Active 4 mg IVPUSH Q4H PRN Pantoprazole [ProTONIX IV] 40 mg Med 09/14/20 09:00 Active Sodium Chloride 0.9% [Normal Saline] 10 ml IV Q12HR Sucralfate [Carafate] Med 09/13/20 22:45 Active 1 gm PO Q6H cefTRIAXone [Rocephin in Dextrose,Iso-Osm 1 GM/50 ML] 1 Med 09/13/20 18:00 Active gm Premix Bag 1 bag IV Q24H diphenhydrAMINE [Benadryl] Med 09/13/20 22:30 Active 25 mg IVPUSH Q6H PRN SCD [Sequential Compression Device] [OM.PC] Routine Oth 09/13/20 17:49 Ordered Code Status [Resuscitation Status] Routine Resus Stat 09/13/20 17:48 Ordered Medication Orders Dextrose/Water (50% Dextrose In Water 50 Ml Syringe) 50 ml IVPUSH ASDIRECTED PRN PRN Reason: Hypoglycemia Diphenhydramine HCl (Diphenhydramine 50 Mg/Ml Sdv) 25 mg IVPUSH Q6H PRN PRN Reason: Itching Last Admin: 09/13/20 22:51 Dose: 25 mg Documented by: DEAN Glucagon (Glucagon,Human Recombinant 1 Mg Vial) 1 mg IM ASDIRECTED PRN PRN Reason: Hypoglycemia Pantoprazole Sodium 40 mg/ (Sodium Chloride) 10 mls @ 300 mls/hr IV Q12HR [facility] Ceftriaxone Sodium/Dextrose 1 (gm/ Premix) 50 mls @ 100 mls/hr IV Q24H [facility] Last Admin: 09/13/20 18:24 Dose: 100 mls/hr Documented by: NOÉBRShorty Lactated Ringer's (Ringers, Lactated) 1,000 mls @ 125 mls/hr IV ASDIRECTED [facility] Dextrose/Lactated Ringer's (Dextrose 5%-Lactated Ringers) 1,000 mls @ 125 mls/hr IV ASDIRECTED [facility] Insulin Aspart (Insulin Aspart 100 Units/Ml 3 Ml Pen) 0 unit SUBCUT Q6H [facility]; Protocol Metoclopramide HCl (Metoclopramide 10 Mg/2 Ml Sdv) 5 mg IVPUSH Q6H [facility] Last Admin: 09/13/20 20:33 Dose: 5 mg Documented by: HILL Morphine Sulfate (Morphine 2 Mg/Ml Syringe) 2 mg IVPUSH Q4H PRN PRN Reason: Pain Last Admin: 09/13/20 22:57 Dose: 2 mg Documented by: DEAN Ondansetron HCl (Ondansetron 4 Mg/2 Ml Sdv) 4 mg IVPUSH Q4H PRN PRN Reason: Nausea/Vomiting Last Admin: 09/13/20 22:51 Dose: 4 mg Documented by: DEAN Sucralfate (Sucralfate Suspension 1 Gm/10 Ml Cup) 1 gm PO Q6H [facility] Assessment/Plan Comment:: NPO, SSI q6h, ACCU checks Q6h, LR @ 125 cc/hr, if BS<100, start D5LR, Lantus once a day for now, IV PPI BID as patient as coffee ground emesis, Hb Q8h, IV Rocephin, h/o neurogenic bladder, watch for urinary retention, IV zofran, IV Benedryl, IV reglan, IM Haldol as needed. Morphine for pain. Will consider surgical consult in AM
[2020-09-13] MEDS ORDERED: Ondansetron 4 MG/2 ML SDV IVPUSH PRN ×2 (16:26→19:00)
[2020-09-13] MEDS ORDERED: Metoclopramide 10 MG/2 ML SDV IVPUSH SCH (16:30)
[2020-09-13] MEDS ORDERED: Insulin Aspart 100 Units/ML 3 ML Pen SUBCUT SCH (17:00)
[2020-09-13] MEDS ORDERED: Sodium Chloride 0.9% 1,000 ML IV SCH (17:15)
[2020-09-13] MEDS ORDERED: Haloperidol Lactate 5 MG/ML SDV IM ONE ×2 (17:41→22:36)
[2020-09-13] MEDS ORDERED: LORazepam 2 MG/ML SDV IVPUSH ONE (17:47)
[2020-09-13] MEDS: cefTRIAXone 1 GM in Premix Bag 1 BAG IV SCH (18:24)
[2020-09-13] MEDS: Metoclopramide 10 MG/2 ML SDV IVPUSH SCH (20:33)
[2020-09-13] MEDS ORDERED: Insulin Glargine,Human Rec. Analog 100 Units/ML 3 ML Pen SUBCUT SCH (21:00)
[2020-09-13] MEDS ORDERED: Sucralfate Suspension 1 GM/10 ML Cup PO SCH (22:45)
[2020-09-13] MEDS: diphenhydrAMINE 50 MG/ML SDV IVPUSH PRN (22:51)
[2020-09-13] MEDS: Ondansetron 4 MG/2 ML SDV IVPUSH PRN (22:51)
[2020-09-13] MEDS: Morphine 2 MG/ML SYRINGE IVPUSH PRN (22:57)
[2020-09-14] MEDS: Insulin Aspart 100 Units/ML 3 ML Pen SUBCUT SCH ×4 (00:46→18:54)
[2020-09-14] MEDS: Lactated Ringers 1,000 ML IV SCH (00:58)
[2020-09-14] MEDS: Sucralfate Suspension 1 GM/10 ML Cup PO SCH ×4 (00:59→18:28)
[2020-09-14] MEDS: Metoclopramide 10 MG/2 ML SDV IVPUSH SCH ×4 (03:25→22:03)
[2020-09-14] MEDS: Dextrose 5%-Lactated Ringers 1,000 ML IV SCH ×2 (06:04→14:07)
[2020-09-14 07:31] LABS: BLOOD UREA NITROGEN,BUN 20 mg/dL (7.0-18.0); CARBON DIOXIDE,CO2 25.4 mmol/L (21.0-32.0); CHLORIDE,CL 113 mmol/L (98-107); GLUCOSE RANDOM 93 mg/dL (74-106); POTASSIUM,K 3.2 mmol/L (3.5-5.1); SODIUM,NA 148 mmol/L (136-148)
[2020-09-14] MEDS ORDERED: Potassium Chloride Riders 40 MEQ in Premix Bag 1 BAG IV ONE (09:00)
[2020-09-14] MEDS: Pantoprazole 40 MG in Sodium Chloride 0.9% 10 ML IV SCH ×2 (09:06→22:04)
[2020-09-14] MEDS: Morphine 2 MG/ML SYRINGE IVPUSH PRN ×3 (09:34→22:04)
[2020-09-14] MEDS: diphenhydrAMINE 50 MG/ML SDV IVPUSH PRN ×3 (09:42→22:04)
--- NOTE | 2020-09-14 11:41 | PCM.CONS ---
H&P History of Present Illness - General Date of Service: 09/14/20 Admit Problem/Dx: Admission Diagnosis/Problem Admission Diagnosis/Problem Intractable vomiting with nausea Source of Information: Patient History Limitations: Reports: No Limitations - History of Present Illness Initial Comments - Free Text/Narative: Patient is a 24 year old male who presented to the ER with intractable nausea and vomiting. His PMHx is significant for poorly controlled type I diabetes, gastroparesis, neurogenic bladder, depression and anxiety. He had a previous esophageal ulcer in 2019. He states that his symptoms feel similar to this previous instance. He states that some of the vomitus appeared coffee ground like. He complains of sharp upper abdominal pain that is improved with morphine. His vitals showed mild tachycardia. His hgb was 10.2 on admission and 8.8 this am. He was placed on IV protonix. This morning he states that he feels better. His tachycardia has resolved. He has not vomited this afternoon. abdominal Pain Score (Numeric/FACES): 10 - Related Data Allergies/Adverse Reactions: Allergies Allergy/AdvReac Type Severity Reaction Status Date / Time amoxicillin Allergy Mild Nausea and Verified 09/13/20 19:36 Vomiting seafood Allergy Severe Vomiting Uncoded 09/13/20 12:50 Home Medications: Home Meds Insulin Aspart [NovoLOG] 10 - 15 unit SUBCUT TIDAC 08/22/20 [History] Insulin Glarg,Human.Rec.Analog [Lantus Solostar] 15 units SUBCUT BID 08/22/20 [H istory] Metoclopramide HCl [Reglan] 10 mg PO BEDTIME 08/22/20 [History] Ondansetron [Zofran ODT] 4 mg PO Q6H PRN #8 tab.dis 08/22/20 [Rx] Omeprazole 20 mg PO DAILY 30 Days #30 capsule. 09/13/20 [Rx] Past Medical History - Past Health History Medical/Surgical History: Denies Medical/Surgical History HEENT History: Reports: None Other HEENT History: ear ache, broken and missing teeth Cardiovascular History: Reports: None Respiratory History: Reports: None Gastrointestinal History: Reports: Irritable Bowel Syndrome Other Gastrointestinal History: gastroparesis Genitourinary History: Reports: Pyelonephritis, Other (See Below) Other Genitourinary History: hydronephrosis, neurogenic bladder Musculoskeletal History: Reports: Fracture Other Musculoskeletal History: Elbow long time ago Neurological History: Reports: None Psychiatric History: Reports: Anxiety, Depression Endocrine/Metabolic History: Reports: Diabetes, Type I Other Endocrine/Metabolic History: non-compliant to DM medications Insulin Pump Model and Lump Inspector: None Hematologic History: Reports: None Immunologic History: Reports: None Oncologic (Cancer) History: Reports: None Dermatologic History: Reports: Other (See Below) Other Dermatologic History: dry itchy skin - Infectious Disease History Infectious Disease History: Reports: None - Past Surgical History Head Surgeries/Procedures: Reports: None HEENT Surgical History: Reports: None GI Surgical History: Reports: None Male Surgical History: Reports: None Endocrine Surgical History: Reports: None Musculoskeletal Surgical History: Reports: None Dermatological Surgical History: Reports: None Social & Family History - Family History Family Medical History: No Pertinent Family History OBGYN: Reports: Endocrine/Metabolic: Reports: Diabetes, Type I, Diabetes, type II - Tobacco Use Tobacco Use Status *Q: Former Tobacco User Used Tobacco, but Quit: Yes Month/Year Tobacco Last Used: 02/11/20 - Caffeine Use Caffeine Use: Reports: Coffee, Energy Drinks - Alcohol Use Date of Last Drink: 02/10/18 - Recreational Drug Use Recreational Drug Use: No - Living Situation & Occupation Living situation: Reports: Single, with Family Occupation: Unemployed H&P Review of Systems - Review of Systems: Review Of Systems: Comprehensive ROS is negative, except as noted in HPI. Exam - Exam Exam: See Below - Vital Signs Vital Signs: Last Vital Signs Temp 35.8 C L 09/14/20 08:00 Pulse 101 H 09/14/20 08:00 Resp 22 H 09/14/20 08:00 BP 133/81 09/14/20 08:00 Pulse Ox 97 09/14/20 08:00 Weight: 57.878 kg - Exam General: Alert, Oriented HEENT: Conjunctiva Clear, EACs Clear, Mucosa Moist & [place] Neck: Supple Lungs: Clear to Auscultation, Normal Respiratory Effort Cardiovascular: Regular Rate, Regular Rhythm GI/Abdominal Exam: Soft, No Distention, No Mass, Other (voluntary guarding with palpation. No rebound guarding rigidity or tenderness when abdominal pressure applied with stethoscope. ) - Patient Data Lab Results Last 24 hrs: Laboratory Results - last 24 hr 09/13/20 09/13/20 09/13/20 Range/Units 12:58 13:00 13:00 WBC 3.95 L (4.0-11.0) K/uL RBC 3.85 L (4.50-5.90) M/uL Hgb 9.9 L (13.0-17.0) g/dL Hct 31.6 L (38.0-50.0) % MCV 82.1 (80.0-98.0) fL MCH 25.7 L (27.0-32.0) pg MCHC 31.3 (31.0-37.0) g/dL RDW Std Deviation 44.5 (28.0-62.0) fl RDW Coeff of Erika 15 (11.0-15.0) % Plt Count 232 (150-400) K/uL MPV 9.30 (7.40-12.00) fL Neut % (Auto) 58.8 (48.0-80.0) % Lymph % (Auto) 34.4 (16.0-40.0) % Patrick % (Auto) 2.8 (0.0-15.0) % Eos % (Auto) 3.5 (0.0-7.0) % Baso % (Auto) 0.5 (0.0-1.5) % Neut # (Auto) 2.3 (1.4-5.7) K/uL Lymph # (Auto) 1.4 (0.6-2.4) K/uL Patrick # (Auto) 0.1 (0.0-0.8) K/uL Eos # (Auto) 0.1 (0.0-0.7) K/uL Baso # (Auto) 0.0 (0.0-0.1) K/uL Nucleated RBC % 0.0 /100WBC Nucleated RBCs # 0 K/uL VBG pH 7.36 (7.31-7.41) VBG pCO2 45 (41-51) mmHG VBG pO2 34 mmHG VBG HCO3 25 (23-28) mEq/L VBG Total CO2 27 (24-29) mmol/L VBG Base Excess 0.0 (-2.0-3.0) Sodium (136-148) mmol/L Potassium (3.5-5.1) mmol/L Chloride (98-107) mmol/L Carbon Dioxide (21.0-32.0) mmol/L BUN (7.0-18.0) mg/dL Creatinine (0.8-1.3) mg/dL Est Cr Clr Drug Dosing mL/min Estimated GFR (MDRD) ml/min Glucose (74-106) mg/dL POC Glucose 297 H (70-99) mg/dL Calcium (8.5-10.1) mg/dL Phosphorus (2.6-4.7) mg/dL Magnesium (1.8-2.4) mg/dL Total Bilirubin (0.2-1.0) mg/dL AST (15-37) IU/L ALT (14-63) IU/L Alkaline Phosphatase (46-116) U/L Total Protein (6.4-8.2) g/dL Albumin (3.4-5.0) g/dL Globulin (2.6-4.0) g/dL Albumin/Globulin Ratio (0.9-1.6) Lipase (73-393) U/L Urine Color Urine Appearance Urine pH (5.0-8.0) Ur Specific [place] (1.001-1.035) Urine Protein (NEGATIVE) mg/dL Urine Glucose (UA) (NEGATIVE) mg/dL Urine Ketones (NEGATIVE) mg/dL Urine Occult Blood (NEGATIVE) Urine Nitrite (NEGATIVE) Urine Bilirubin (NEGATIVE) Urine Urobilinogen (<2.0) EU/dL Ur Leukocyte Esterase (NEGATIVE) Urine RBC (0-2/HPF) Urine WBC (0-5/HPF) Ur Epithelial Cells (NONE-FEW) Urine Bacteria (NEGATIVE) Urine Mucus (NONE-MOD) SARS-CoV-2 RNA (RICHIE) (NEGATIVE) 09/13/20 09/13/20 09/13/20 Range/Units 13:00 13:00 14:24 WBC (4.0-11.0) K/uL RBC (4.50-5.90) M/uL Hgb (13.0-17.0) g/dL Hct (38.0-50.0) % MCV (80.0-98.0) fL MCH (27.0-32.0) pg MCHC (31.0-37.0) g/dL RDW Std Deviation (28.0-62.0) fl RDW Coeff of Erika (11.0-15.0) % Plt Count (150-400) K/uL MPV (7.40-12.00) fL Neut % (Auto) (48.0-80.0) % Lymph % (Auto) (16.0-40.0) % Patrick % (Auto) (0.0-15.0) % Eos % (Auto) (0.0-7.0) % Baso % (Auto) (0.0-1.5) % Neut # (Auto) (1.4-5.7) K/uL Lymph # (Auto) (0.6-2.4) K/uL Patrick # (Auto) (0.0-0.8) K/uL Eos # (Auto) (0.0-0.7) K/uL Baso # (Auto) (0.0-0.1) K/uL Nucleated RBC % /100WBC Nucleated RBCs # K/uL VBG pH (7.31-7.41) VBG pCO2 (41-51) mmHG VBG pO2 mmHG VBG HCO3 (23-28) mEq/L VBG Total CO2 (24-29) mmol/L VBG Base Excess (-2.0-3.0) Sodium 144 (136-148) mmol/L Potassium 4.1 (3.5-5.1) mmol/L Chloride 109 H (98-107) mmol/L Carbon Dioxide 26.3 (21.0-32.0) mmol/L BUN 16 (7.0-18.0) mg/dL Creatinine 1.0 (0.8-1.3) mg/dL Est Cr Clr Drug Dosing 89.21 mL/min Estimated GFR (MDRD) > 60.0 ml/min Glucose 311 H (74-106) mg/dL POC Glucose 260 H (70-99) mg/dL Calcium 9.4 (8.5-10.1) mg/dL Phosphorus 3.6 (2.6-4.7) mg/dL Magnesium 2.1 (1.8-2.4) mg/dL Total Bilirubin 0.2 (0.2-1.0) mg/dL AST 18 (15-37) IU/L ALT 23 (14-63) IU/L Alkaline Phosphatase 93 (46-116) U/L Total Protein 7.9 (6.4-8.2) g/dL Albumin 3.0 L (3.4-5.0) g/dL Globulin 4.9 H (2.6-4.0) g/dL Albumin/Globulin Ratio 0.6 L (0.9-1.6) Lipase 56 L (73-393) U/L Urine Color Urine Appearance Urine pH (5.0-8.0) Ur Specific [place] (1.001-1.035) Urine Protein (NEGATIVE) mg/dL Urine Glucose (UA) (NEGATIVE) mg/dL Urine Ketones (NEGATIVE) mg/dL Urine Occult Blood (NEGATIVE) Urine Nitrite (NEGATIVE) Urine Bilirubin (NEGATIVE) Urine Urobilinogen (<2.0) EU/dL Ur Leukocyte Esterase (NEGATIVE) Urine RBC (0-2/HPF) Urine WBC (0-5/HPF) Ur Epithelial Cells (NONE-FEW) Urine Bacteria (NEGATIVE) Urine Mucus (NONE-MOD) SARS-CoV-2 RNA (RICHIE) (NEGATIVE) 09/13/20 09/13/20 09/13/20 Range/Units 15:35 15:55 17:33 WBC (4.0-11.0) K/uL RBC (4.50-5.90) M/uL Hgb (13.0-17.0) g/dL Hct (38.0-50.0) % MCV (80.0-98.0) fL MCH (27.0-32.0) pg MCHC (31.0-37.0) g/dL RDW Std Deviation (28.0-62.0) fl RDW Coeff of Erika (11.0-15.0) % Plt Count (150-400) K/uL MPV (7.40-12.00) fL Neut % (Auto) (48.0-80.0) % Lymph % (Auto) (16.0-40.0) % Patrick % (Auto) (0.0-15.0) % Eos % (Auto) (0.0-7.0) % Baso % (Auto) (0.0-1.5) % Neut # (Auto) (1.4-5.7) K/uL Lymph # (Auto) (0.6-2.4) K/uL Patrick # (Auto) (0.0-0.8) K/uL Eos # (Auto) (0.0-0.7) K/uL Baso # (Auto) (0.0-0.1) K/uL Nucleated RBC % /100WBC Nucleated RBCs # K/uL VBG pH (7.31-7.41) VBG pCO2 (41-51) mmHG VBG pO2 mmHG VBG HCO3 (23-28) mEq/L VBG Total CO2 (24-29) mmol/L VBG Base Excess (-2.0-3.0) Sodium (136-148) mmol/L Potassium (3.5-5.1) mmol/L Chloride (98-107) mmol/L Carbon Dioxide (21.0-32.0) mmol/L BUN (7.0-18.0) mg/dL Creatinine (0.8-1.3) mg/dL Est Cr Clr Drug Dosing mL/min Estimated GFR (MDRD) ml/min Glucose (74-106) mg/dL POC Glucose 209 H 147 H (70-99) mg/dL Calcium (8.5-10.1) mg/dL Phosphorus (2.6-4.7) mg/dL Magnesium (1.8-2.4) mg/dL Total Bilirubin (0.2-1.0) mg/dL AST (15-37) IU/L ALT (14-63) IU/L Alkaline Phosphatase (46-116) U/L Total Protein (6.4-8.2) g/dL Albumin (3.4-5.0) g/dL Globulin (2.6-4.0) g/dL Albumin/Globulin Ratio (0.9-1.6) Lipase (73-393) U/L Urine Color Urine Appearance Urine pH (5.0-8.0) Ur Specific [place] (1.001-1.035) Urine Protein (NEGATIVE) mg/dL Urine Glucose (UA) (NEGATIVE) mg/dL Urine Ketones (NEGATIVE) mg/dL Urine Occult Blood (NEGATIVE) Urine Nitrite (NEGATIVE) Urine Bilirubin (NEGATIVE) Urine Urobilinogen (<2.0) EU/dL Ur Leukocyte Esterase (NEGATIVE) Urine RBC (0-2/HPF) Urine WBC (0-5/HPF) Ur Epithelial Cells (NONE-FEW) Urine Bacteria (NEGATIVE) Urine Mucus (NONE-MOD) SARS-CoV-2 RNA (RICHIE) NEGATIVE (NEGATIVE) 09/13/20 09/13/20 09/14/20 Range/Units 21:13 21:25 00:58 WBC (4.0-11.0) K/uL RBC (4.50-5.90) M/uL Hgb 10.2 L (13.0-17.0) g/dL Hct 31.8 L (38.0-50.0) % MCV (80.0-98.0) fL MCH (27.0-32.0) pg MCHC (31.0-37.0) g/dL RDW Std Deviation (28.0-62.0) fl RDW Coeff of Erika (11.0-15.0) % Plt Count (150-400) K/uL MPV (7.40-12.00) fL Neut % (Auto) (48.0-80.0) % Lymph % (Auto) (16.0-40.0) % Patrick % (Auto) (0.0-15.0) % Eos % (Auto) (0.0-7.0) % Baso % (Auto) (0.0-1.5) % Neut # (Auto) (1.4-5.7) K/uL Lymph # (Auto) (0.6-2.4) K/uL Patrick # (Auto) (0.0-0.8) K/uL Eos # (Auto) (0.0-0.7) K/uL Baso # (Auto) (0.0-0.1) K/uL Nucleated RBC % /100WBC Nucleated RBCs # K/uL VBG pH (7.31-7.41) VBG pCO2 (41-51) mmHG VBG pO2 mmHG VBG HCO3 (23-28) mEq/L VBG Total CO2 (24-29) mmol/L VBG Base Excess (-2.0-3.0) Sodium (136-148) mmol/L Potassium (3.5-5.1) mmol/L Chloride (98-107) mmol/L Carbon Dioxide (21.0-32.0) mmol/L BUN (7.0-18.0) mg/dL Creatinine (0.8-1.3) mg/dL Est Cr Clr Drug Dosing mL/min Estimated GFR (MDRD) ml/min Glucose (74-106) mg/dL POC Glucose 120 H 104 H (70-99) mg/dL Calcium (8.5-10.1) mg/dL Phosphorus (2.6-4.7) mg/dL Magnesium (1.8-2.4) mg/dL Total Bilirubin (0.2-1.0) mg/dL AST (15-37) IU/L ALT (14-63) IU/L Alkaline Phosphatase (46-116) U/L Total Protein (6.4-8.2) g/dL Albumin (3.4-5.0) g/dL Globulin (2.6-4.0) g/dL Albumin/Globulin Ratio (0.9-1.6) Lipase (73-393) U/L Urine Color Urine Appearance Urine pH (5.0-8.0) Ur Specific [place] (1.001-1.035) Urine Protein (NEGATIVE) mg/dL Urine Glucose (UA) (NEGATIVE) mg/dL Urine Ketones (NEGATIVE) mg/dL Urine Occult Blood (NEGATIVE) Urine Nitrite (NEGATIVE) Urine Bilirubin (NEGATIVE) Urine Urobilinogen (<2.0) EU/dL Ur Leukocyte Esterase (NEGATIVE) Urine RBC (0-2/HPF) Urine WBC (0-5/HPF) Ur Epithelial Cells (NONE-FEW) Urine Bacteria (NEGATIVE) Urine Mucus (NONE-MOD) SARS-CoV-2 RNA (RICHIE) (NEGATIVE) 09/14/20 09/14/20 09/14/20 Range/Units 06:01 06:40 06:40 WBC 6.04 (4.0-11.0) K/uL RBC 3.43 L (4.50-5.90) M/uL Hgb 8.8 L (13.0-17.0) g/dL Hct 28.0 L (38.0-50.0) % MCV 81.6 (80.0-98.0) fL MCH 25.7 L (27.0-32.0) pg MCHC 31.4 (31.0-37.0) g/dL RDW Std Deviation 43.8 (28.0-62.0) fl RDW Coeff of Eirka 15 (11.0-15.0) % Plt Count 218 (150-400) K/uL MPV 9.30 (7.40-12.00) fL Neut % (Auto) 77.5 (48.0-80.0) % Lymph % (Auto) 16.7 (16.0-40.0) % Patrick % (Auto) 5.6 (0.0-15.0) % Eos % (Auto) 0.0 (0.0-7.0) % Baso % (Auto) 0.2 (0.0-1.5) % Neut # (Auto) 4.7 (1.4-5.7) K/uL Lymph # (Auto) 1.0 (0.6-2.4) K/uL Patrick # (Auto) 0.3 (0.0-0.8) K/uL Eos # (Auto) 0.0 (0.0-0.7) K/uL Baso # (Auto) 0.0 (0.0-0.1) K/uL Nucleated RBC % 0.0 /100WBC Nucleated RBCs # 0 K/uL VBG pH (7.31-7.41) VBG pCO2 (41-51) mmHG VBG pO2 mmHG VBG HCO3 (23-28) mEq/L VBG Total CO2 (24-29) mmol/L VBG Base Excess (-2.0-3.0) Sodium 148 (136-148) mmol/L Potassium 3.2 L (3.5-5.1) mmol/L Chloride 113 H (98-107) mmol/L Carbon Dioxide 25.4 (21.0-32.0) mmol/L BUN 20 H (7.0-18.0) mg/dL Creatinine 1.0 (0.8-1.3) mg/dL Est Cr Clr Drug Dosing 94.86 mL/min Estimated GFR (MDRD) > 60.0 ml/min Glucose 93 (74-106) mg/dL POC Glucose 77 (70-99) mg/dL Calcium 8.2 L (8.5-10.1) mg/dL Phosphorus (2.6-4.7) mg/dL Magnesium (1.8-2.4) mg/dL Total Bilirubin (0.2-1.0) mg/dL AST (15-37) IU/L ALT (14-63) IU/L Alkaline Phosphatase (46-116) U/L Total Protein (6.4-8.2) g/dL Albumin (3.4-5.0) g/dL Globulin (2.6-4.0) g/dL Albumin/Globulin Ratio (0.9-1.6) Lipase (73-393) U/L Urine Color Urine Appearance Urine pH (5.0-8.0) Ur Specific [place] (1.001-1.035) Urine Protein (NEGATIVE) mg/dL Urine Glucose (UA) (NEGATIVE) mg/dL Urine Ketones (NEGATIVE) mg/dL Urine Occult Blood (NEGATIVE) Urine Nitrite (NEGATIVE) Urine Bilirubin (NEGATIVE) Urine Urobilinogen (<2.0) EU/dL Ur Leukocyte Esterase (NEGATIVE) Urine RBC (0-2/HPF) Urine WBC (0-5/HPF) Ur Epithelial Cells (NONE-FEW) Urine Bacteria (NEGATIVE) Urine Mucus (NONE-MOD) SARS-CoV-2 RNA (RICHIE) (NEGATIVE) 09/14/20 09/14/20 Range/Units 06:40 09:33 WBC (4.0-11.0) K/uL RBC (4.50-5.90) M/uL Hgb (13.0-17.0) g/dL Hct (38.0-50.0) % MCV (80.0-98.0) fL MCH (27.0-32.0) pg MCHC (31.0-37.0) g/dL RDW Std Deviation (28.0-62.0) fl RDW Coeff of Erika (11.0-15.0) % Plt Count (150-400) K/uL MPV (7.40-12.00) fL Neut % (Auto) (48.0-80.0) % Lymph % (Auto) (16.0-40.0) % Patrick % (Auto) (0.0-15.0) % Eos % (Auto) (0.0-7.0) % Baso % (Auto) (0.0-1.5) % Neut # (Auto) (1.4-5.7) K/uL Lymph # (Auto) (0.6-2.4) K/uL Patrick # (Auto) (0.0-0.8) K/uL Eos # (Auto) (0.0-0.7) K/uL Baso # (Auto) (0.0-0.1) K/uL Nucleated RBC % /100WBC Nucleated RBCs # K/uL VBG pH (7.31-7.41) VBG pCO2 (41-51) mmHG VBG pO2 mmHG VBG HCO3 (23-28) mEq/L VBG Total CO2 (24-29) mmol/L VBG Base Excess (-2.0-3.0) Sodium (136-148) mmol/L Potassium (3.5-5.1) mmol/L Chloride (98-107) mmol/L Carbon Dioxide (21.0-32.0) mmol/L BUN (7.0-18.0) mg/dL Creatinine (0.8-1.3) mg/dL Est Cr Clr Drug Dosing mL/min Estimated GFR (MDRD) ml/min Glucose (74-106) mg/dL POC Glucose (70-99) mg/dL Calcium (8.5-10.1) mg/dL Phosphorus (2.6-4.7) mg/dL Magnesium 1.8 (1.8-2.4) mg/dL Total Bilirubin (0.2-1.0) mg/dL AST (15-37) IU/L ALT (14-63) IU/L Alkaline Phosphatase (46-116) U/L Total Protein (6.4-8.2) g/dL Albumin (3.4-5.0) g/dL Globulin (2.6-4.0) g/dL Albumin/Globulin Ratio (0.9-1.6) Lipase (73-393) U/L Urine Color YELLOW Urine Appearance CLEAR Urine pH 7.0 (5.0-8.0) Ur Specific [place] 1.020 (1.001-1.035) Urine Protein 100 H (NEGATIVE) mg/dL Urine Glucose (UA) >=1000 (NEGATIVE) mg/dL Urine Ketones TRACE H (NEGATIVE) mg/dL Urine Occult Blood SMALL H (NEGATIVE) Urine Nitrite NEGATIVE (NEGATIVE) Urine Bilirubin NEGATIVE (NEGATIVE) Urine Urobilinogen 0.2 (<2.0) EU/dL Ur Leukocyte Esterase NEGATIVE (NEGATIVE) Urine RBC 0-2 (0-2/HPF) Urine WBC 5-9 (0-5/HPF) Ur Epithelial Cells RARE (NONE-FEW) Urine Bacteria FEW (NEGATIVE) Urine Mucus LIGHT (NONE-MOD) SARS-CoV-2 RNA (RICHIE) (NEGATIVE) Result Diagrams: 09/14/20 06:40 09/14/20 06:40 Sepsis Event Note - Evaluation Sepsis Screening Result: No Definite Risk - Focused Exam Vital Signs: Vital Signs Temp Pulse Resp BP Pulse Ox 09/14/20 08:00 35.8 C L 101 H 22 H 133/81 97 09/14/20 03:28 37.9 C 104 H 15 112/66 94 L 09/14/20 00:48 37.5 C 111 H 14 129/80 94 L Consult PN Assessment/Plan Procedures: Procedures ASSAY GLUCOSE BLOOD QUANT (09/07/20) ASSAY OF AMYLASE (09/15/18) ASSAY OF CALCIUM (04/17/16) ASSAY OF FERRITIN (07/27/18) ASSAY OF LACTIC ACID (07/30/20) ASSAY OF LIPASE (09/07/20) ASSAY OF MAGNESIUM (08/19/20) ASSAY OF PHOSPHORUS (08/19/20) ASSAY OF TROPONIN QUANT (01/23/20) BLOOD CULTURE FOR BACTERIA (01/23/20) BLOOD GASES ANY COMBINATION (09/07/20) BLOOD TYPING SEROLOGIC ABO (03/06/20) BLOOD TYPING SEROLOGIC RH(D) (03/06/20) CHEST X-RAY 1 VIEW FRONTAL (01/08/16) COMPLETE CBC AUTOMATED (07/27/18) COMPLETE CBC W/AUTO DIFF WBC (09/07/20) COMPREHEN METABOLIC PANEL (09/07/20) CT ABD & PELV W/CONTRAST (08/19/20) CT ABD & PELVIS W/O CONTRAST (01/23/20) CT PELVIS W/O DYE (06/16/19) CULTURE AEROBIC IDENTIFY (01/23/20) DRAINAGE OF GUM LESION (12/29/19) DRUG TEST PRSMV CHEM ANLYZR (08/19/20) DRUG TEST PRSMV DIR OPT OBS (08/19/20) ECHO EXAM OF ABDOMEN (09/17/18) ELECTROCARDIOGRAM TRACING (09/07/20) EMERGENCY DEPT VISIT (09/07/20) EMERGENCY DEPT VISIT (08/19/20) EMERGENCY DEPT VISIT (08/01/20) EMERGENCY DEPT VISIT (02/01/20) EMERGENCY DEPT VISIT (01/23/20) EMERGENCY DEPT VISIT (12/29/19) EMERGENCY DEPT VISIT (12/16/19) EMERGENCY DEPT VISIT (11/04/19) EMERGENCY DEPT VISIT (10/27/19) EMERGENCY DEPT VISIT (06/16/19) EMERGENCY DEPT VISIT (02/01/19) EMERGENCY DEPT VISIT (09/24/18) EMERGENCY DEPT VISIT (09/17/18) EMERGENCY DEPT VISIT (09/08/18) EMERGENCY DEPT VISIT (09/05/18) EMERGENCY DEPT VISIT (08/30/18) EMERGENCY DEPT VISIT (08/26/18) EMERGENCY DEPT VISIT (07/27/18) GLUCOSE BLOOD TEST (03/06/20) GLYCOSYLATED HEMOGLOBIN TEST (01/12/19) HYDRATE IV INFUSION ADD-ON (10/27/19) HYDRATION IV INFUSION INIT (12/18/18) INSERT BLADDER CATHETER (02/03/19) INSERT TEMP BLADDER CATH (01/23/20) IRON BINDING TEST (07/27/18) LIPID PANEL (04/17/16) MEDICAL NUTRITION INDIV IN (04/17/16) METABOLIC PANEL TOTAL CA (01/23/20) MICROBE SUSCEPTIBLE YADY (08/01/20) OCCULT BLD FECES 1-3 TESTS (01/23/20) PROTHROMBIN TIME (03/06/20) RBC ANTIBODY SCREEN (03/06/20) ROUTINE VENIPUNCTURE (09/07/20) SARS-COV-2 COVID-19 AMP PRB (03/06/20) TEST FOR ACETONE/KETONES (09/07/20) THER/DIAG CONCURRENT INF (04/17/16) THER/PROPH/DIAG INJ IV PUSH (08/19/20) THER/PROPH/DIAG INJ SC/IM (02/01/20) THER/PROPH/DIAG IV INF INIT (09/07/20) THROMBOPLASTIN TIME PARTIAL (09/16/18) TX/PRO/DX INJ NEW DRUG ADDON (09/07/20) TX/PRO/DX INJ SAME DRUG ASPHALT PATCHER (08/19/20) TX/PROPH/DG ADDL SEQ IV INF (06/16/19) UR ALBUMIN SEMIQUANTITATIVE (01/12/19) URINALYSIS AUTO W/O SCOPE (09/05/18) URINALYSIS AUTO W/SCOPE (09/07/20) URINE BACTERIA CULTURE (08/01/20) URINE CULTURE/COLONY COUNT (08/22/20) US EXAM ABDO BACK WALL BLAS (07/23/18) US EXAM ABDOM COMPLETE (01/23/20) US URINE CAPACITY MEASURE (06/16/19) WITHDRAWAL OF ARTERIAL BLOOD (09/05/18) X-RAY EXAM ABDOMEN 1 VIEW (09/16/18) X-RAY EXAM CHEST 1 VIEW (06/16/19) X-RAY EXAM COMPLETE ABDOMEN (09/15/18) (1) Abdominal pain SNOMED Code(s): 80313879 Code(s): R10.9 - UNSPECIFIED ABDOMINAL PAIN Current Visit: Yes (2) Chronic vomiting SNOMED Code(s): 57127436 Code(s): R11.10 - VOMITING, UNSPECIFIED Current Visit: Yes (3) Coffee ground emesis SNOMED Code(s): 77510324 Code(s): K92.0 - HEMATEMESIS Current Visit: Yes Problem List Initiated/Reviewed/Updated: Yes Plan: Will resuscitate patient today. Plan for diagnostic EGD with possibly biopsy in the am as long as he stays stable. We discussed the procedure, expected perioperative course and risks which include bleeding, infection, perforation, or damage to surrounding structures. He verbalized understanding and wishes to proceed. If he develops hematemesis, his vitals become unstable or his hemoglobin continues to drop precipitously with subsequent hemoglobin checks he would need to be transferred to a hospital with greater resources for bleeding control.
--- NOTE | 2020-09-14 12:02 | PCM.PREANE ---
Preanesthetic Assessment - Anesthesia/Transfusion/Family Hx Anesthesia History: Prior Anesthesia Without Reaction Transfusion History: Prior Transfusion Without Reaction Intubation History: Unknown - Review of Systems General: Weakness, Fatigue Pulmonary: No Symptoms Cardiovascular: No Symptoms Gastrointestinal: No Symptoms, Abdominal Pain, Hematochezia, Melena, Nausea, Vomiting Neurological: No Symptoms Other: Reports: Diabetes, Depression, Anxiety - Physical Assessment NPO Status Date: 09/15/20 NPO Status Time: 00:00 Vital Signs: Last Vital Signs Temp 96.4 F L 09/14/20 08:00 Pulse 101 H 09/14/20 08:00 Resp 22 H 09/14/20 08:00 BP 133/81 09/14/20 08:00 Pulse Ox 97 09/14/20 08:00 Height: 5 ft 6 in Weight: 127 lb 9.6 oz ASA Class: 3 Mental Status: Alert & Oriented x3 Airway Class: Mallampati = 2 Dentition: Reports: Broken Tooth/Teeth, Missing Tooth/Teeth Thyro-Mental Finger Breadths: 3 Mouth Opening Finger Breadths: 3 ROM/Head Extension: Full Lungs: Clear to Auscultation, Normal Respiratory Effort Cardiovascular: Regular Rate, Regular Rhythm - Lab Values: Laboratory Last Values WBC 6.04 K/uL (4.0-11.0) 09/14/20 06:40 RBC 3.43 M/uL (4.50-5.90) L 09/14/20 06:40 Hgb 8.8 g/dL (13.0-17.0) L 09/14/20 06:40 Hct 28.0 % (38.0-50.0) L 09/14/20 06:40 MCV 81.6 fL (80.0-98.0) 09/14/20 06:40 MCH 25.7 pg (27.0-32.0) L 09/14/20 06:40 MCHC 31.4 g/dL (31.0-37.0) 09/14/20 06:40 RDW Std Deviation 43.8 fl (28.0-62.0) 09/14/20 06:40 RDW Coeff of Erika 15 % (11.0-15.0) 09/14/20 06:40 Plt Count 218 K/uL (150-400) 09/14/20 06:40 MPV 9.30 fL (7.40-12.00) 09/14/20 06:40 Neut % (Auto) 77.5 % (48.0-80.0) 09/14/20 06:40 Lymph % (Auto) 16.7 % (16.0-40.0) 09/14/20 06:40 [place] % (Auto) 5.6 % (0.0-15.0) 09/14/20 06:40 Eos % (Auto) 0.0 % (0.0-7.0) 09/14/20 06:40 Baso % (Auto) 0.2 % (0.0-1.5) 09/14/20 06:40 Neut # (Auto) 4.7 K/uL (1.4-5.7) 09/14/20 06:40 Lymph # (Auto) 1.0 K/uL (0.6-2.4) 09/14/20 06:40 [place] # (Auto) 0.3 K/uL (0.0-0.8) 09/14/20 06:40 Eos # (Auto) 0.0 K/uL (0.0-0.7) 09/14/20 06:40 Baso # (Auto) 0.0 K/uL (0.0-0.1) 09/14/20 06:40 Nucleated RBC % 0.0 /100WBC 09/14/20 06:40 Nucleated RBCs # 0 K/uL 09/14/20 06:40 VBG pH 7.36 (7.31-7.41) 09/13/20 13:00 VBG pCO2 45 mmHG (41-51) 09/13/20 13:00 VBG pO2 34 mmHG 09/13/20 13:00 VBG HCO3 25 mEq/L (23-28) 09/13/20 13:00 VBG Total CO2 27 mmol/L (24-29) 09/13/20 13:00 VBG Base Excess 0.0 (-2.0-3.0) 09/13/20 13:00 Sodium 148 mmol/L (136-148) 09/14/20 06:40 Potassium 3.2 mmol/L (3.5-5.1) L 09/14/20 06:40 Chloride 113 mmol/L (98-107) H 09/14/20 06:40 Carbon Dioxide 25.4 mmol/L (21.0-32.0) 09/14/20 06:40 BUN 20 mg/dL (7.0-18.0) H 09/14/20 06:40 Creatinine 1.0 mg/dL (0.8-1.3) 09/14/20 06:40 Est Cr Clr Drug Dosing 94.86 mL/min 09/14/20 06:40 Estimated GFR (MDRD) > 60.0 ml/min 09/14/20 06:40 Glucose 93 mg/dL (74-106) 09/14/20 06:40 POC Glucose 77 mg/dL (70-99) 09/14/20 06:01 Calcium 8.2 mg/dL (8.5-10.1) L 09/14/20 06:40 Phosphorus 3.6 mg/dL (2.6-4.7) 09/13/20 13:00 Magnesium 1.8 mg/dL (1.8-2.4) 09/14/20 06:40 Total Bilirubin 0.2 mg/dL (0.2-1.0) 09/13/20 13:00 AST 18 IU/L (15-37) 09/13/20 13:00 ALT 23 IU/L (14-63) 09/13/20 13:00 Alkaline Phosphatase 93 U/L (46-116) 09/13/20 13:00 Total Protein 7.9 g/dL (6.4-8.2) 09/13/20 13:00 Albumin 3.0 g/dL (3.4-5.0) L 09/13/20 13:00 Globulin 4.9 g/dL (2.6-4.0) H 09/13/20 13:00 Albumin/Globulin Ratio 0.6 (0.9-1.6) L 09/13/20 13:00 Lipase 56 U/L (73-393) L 09/13/20 13:00 Urine Color YELLOW 09/14/20 09:33 Urine Appearance CLEAR 09/14/20 09:33 Urine pH 7.0 (5.0-8.0) 09/14/20 09:33 Ur Specific [place] 1.020 (1.001-1.035) 09/14/20 09:33 Urine Protein 100 mg/dL (NEGATIVE) H 09/14/20 09:33 Urine Glucose (UA) >=1000 mg/dL (NEGATIVE) 09/14/20 09:33 Urine Ketones TRACE mg/dL (NEGATIVE) H 09/14/20 09:33 Urine Occult Blood SMALL (NEGATIVE) H 09/14/20 09:33 Urine Nitrite NEGATIVE (NEGATIVE) 09/14/20 09:33 Urine Bilirubin NEGATIVE (NEGATIVE) 09/14/20 09:33 Urine Urobilinogen 0.2 EU/dL (<2.0) 09/14/20 09:33 Ur Leukocyte Esterase NEGATIVE (NEGATIVE) 09/14/20 09:33 Urine RBC 0-2 (0-2/HPF) 09/14/20 09:33 Urine WBC 5-9 (0-5/HPF) 09/14/20 09:33 Ur Epithelial Cells RARE (NONE-FEW) 09/14/20 09:33 Urine Bacteria FEW (NEGATIVE) 09/14/20 09:33 Urine Mucus LIGHT (NONE-MOD) 09/14/20 09:33 SARS-CoV-2 RNA (RICHIE) NEGATIVE (NEGATIVE) 09/13/20 15:35 - Allergies Allergies/Adverse Reactions: Allergies Allergy/AdvReac Type Severity Reaction Status Date / Time amoxicillin Allergy Mild Nausea and Verified 09/13/20 19:36 Vomiting seafood Allergy Severe Vomiting Uncoded 09/13/20 12:50 - Blood Blood Available: Yes - Anesthesia Plan Pre-Op Medication Ordered: Antacids - Acknowledgements Anesthesia Type Planned: General Anesthesia Pt an Appropriate Candidate for the Planned Anesthesia: Yes Alternatives and Risks of Anesthesia Discussed w Pt/Guardian: Yes Pt/Guardian Understands and Agrees with Anesthesia Plan: Yes PreAnesthesia Questionnaire - Past Health History Medical/Surgical History: Denies Medical/Surgical History HEENT History: Reports: None Other HEENT History: ear ache, broken and missing teeth Cardiovascular History: Reports: None Respiratory History: Reports: None Gastrointestinal History: Reports: GERD, GI Bleed, Irritable Bowel Syndrome Other Gastrointestinal History: gastroparesis Genitourinary History: Reports: Pyelonephritis, Other (See Below) Other Genitourinary History: hydronephrosis, neurogenic bladder Musculoskeletal History: Reports: Fracture Other Musculoskeletal History: Elbow long time ago Neurological History: Reports: None Psychiatric History: Reports: Anxiety, Depression Endocrine/Metabolic History: Reports: Diabetes, Type I Other Endocrine/Metabolic History: non-compliant to DM medications Hematologic History: Reports: None Immunologic History: Reports: None Oncologic (Cancer) History: Reports: None Dermatologic History: Reports: Other (See Below) Other Dermatologic History: dry itchy skin - Infectious Disease History Infectious Disease History: Reports: None - Past Surgical History Head Surgeries/Procedures: Reports: None HEENT Surgical History: Reports: None GI Surgical History: Reports: None Male Surgical History: Reports: None Endocrine Surgical History: Reports: None Musculoskeletal Surgical History: Reports: None Dermatological Surgical History: Reports: None - SUBSTANCE USE Tobacco Use Status *Q: Former Tobacco User Tobacco Use Within Last Twelve Months: Cigarettes Date of Last Drink: 02/10/18 Recreational Drug Use History: No Recreational Drug Type: Reports: Heroin, Methamphetamine - HOME MEDS Home Medications: Home Meds Insulin Aspart [NovoLOG] 10 - 15 unit SUBCUT TIDAC 08/22/20 [History] Insulin Glarg,Human.Rec.Analog [Lantus Solostar] 15 units SUBCUT BID 08/22/20 [History] Metoclopramide HCl [Reglan] 10 mg PO BEDTIME 08/22/20 [History] Ondansetron [Zofran ODT] 4 mg PO Q6H PRN #8 tab.dis 08/22/20 [Rx] Omeprazole 20 mg PO DAILY 30 Days #30 capsule.dr 09/13/20 [Rx] - CURRENT (IN HOUSE) MEDS Current Meds: Current Medications Dextrose/Water (50% Dextrose In Water 50 Ml Syringe) 50 ml IVPUSH ASDIRECTED PRN PRN Reason: Hypoglycemia Diphenhydramine HCl (Diphenhydramine 50 Mg/Ml Sdv) 25 mg IVPUSH Q6H PRN PRN Reason: Itching Last Admin: 09/14/20 09:42 Dose: 25 mg Documented by: Glucagon (Glucagon,Human Recombinant 1 Mg Vial) 1 mg IM ASDIRECTED PRN PRN Reason: Hypoglycemia Pantoprazole Sodium 40 mg/ (Sodium Chloride) 10 mls @ 300 mls/hr IV Q12HR [facility] Last Admin: 09/14/20 09:06 Dose: 300 mls/hr Documented by: Ceftriaxone Sodium/Dextrose 1 (gm/ Premix) 50 mls @ 100 mls/hr IV Q24H [facility] Last Admin: 09/13/20 18:24 Dose: 100 mls/hr Documented by: Lactated Ringer's (Ringers, Lactated) 1,000 mls @ 125 mls/hr IV ASDIRECTED [facility] Last Infusion: 09/14/20 06:04 Dose: 0 mls/hr Documented by: Dextrose/Lactated Ringer's (Dextrose 5%-Lactated Ringers) 1,000 mls @ 125 mls/hr IV ASDIRECTED [facility] Last Admin: 09/14/20 06:04 Dose: 125 mls/hr Documented by: Potassium Chloride 40 meq/ (Premix) 100 mls @ 25 mls/hr IV ONETIME ONE Stop: 09/14/20 12:59 Last Admin: 09/14/20 09:06 Dose: 25 mls/hr Documented by: Insulin Aspart (Insulin Aspart 100 Units/Ml 3 Ml Pen) 0 unit SUBCUT Q6H [facility]; Protocol Last Admin: 09/14/20 06:04 Dose: Not Given Documented by: Insulin Glargine (Insulin Glargine,Human Rec. Analog 100 Units/Ml 3 Ml Pen) 15 units SUBCUT BEDTIME [facility] Metoclopramide HCl (Metoclopramide 10 Mg/2 Ml Sdv) 5 mg IVPUSH Q6H [facility] Last Admin: 09/14/20 09:05 Dose: 5 mg Documented by: Morphine Sulfate (Morphine 2 Mg/Ml Syringe) 2 mg IVPUSH Q4H PRN PRN Reason: Pain Last Admin: 09/14/20 09:34 Dose: 2 mg Documented by: Ondansetron HCl (Ondansetron 4 Mg/2 Ml Sdv) 4 mg IVPUSH Q4H PRN PRN Reason: Nausea/Vomiting Last Admin: 09/13/20 22:51 Dose: 4 mg Documented by: Sucralfate (Sucralfate Suspension 1 Gm/10 Ml Cup) 1 gm PO Q6H [facility] Last Admin: 09/14/20 06:04 Dose: 1 gm Documented by: Discontinued Medications Al Hydroxide/Mg Hydroxide 15 (ml/ Lidocaine HCl 5 ml) 0 ml PO ONETIME ONE Stop: 09/13/20 15:57 Last Admin: 09/13/20 16:07 Dose: 20 each Documented by: Dextrose/Water (50% Dextrose In Water 50 Ml Syringe) 50 ml IVPUSH ASDIRECTED PRN PRN Reason: Hypoglycemia Dextrose/Water (50% Dextrose In Water 50 Ml Syringe) 50 ml IVPUSH ASDIRECTED PRN PRN Reason: Hypoglycemia Diphenhydramine HCl (Diphenhydramine 50 Mg/Ml Sdv) 50 mg IVPUSH ONETIME ONE Stop: 09/13/20 12:54 Last Admin: 09/13/20 13:00 Dose: 50 mg Documented by: Glucagon (Glucagon,Human Recombinant 1 Mg Vial) 1 mg IM ASDIRECTED PRN PRN Reason: Hypoglycemia Glucagon (Glucagon,Human Recombinant 1 Mg Vial) 1 mg IM ASDIRECTED PRN PRN Reason: Hypoglycemia Haloperidol Lactate (Haloperidol Lactate 5 Mg/Ml Sdv) 1 mg IM ONETIME ONE Stop: 09/13/20 17:42 Last Admin: 09/13/20 19:13 Dose: Not Given Documented by: Haloperidol Lactate (Haloperidol Lactate 5 Mg/Ml Sdv) 2 mg IM ONETIME ONE Stop: 09/13/20 22:37 Last Admin: 09/13/20 22:53 Dose: 2 mg Documented by: Sodium Chloride (Normal Saline) 1,000 mls @ 999 mls/hr IV STAT ONE Stop: 09/13/20 13:18 Last Admin: 09/13/20 12:58 Dose: 999 mls/hr Documented by: Sodium Chloride (Normal Saline) 1,000 mls @ 999 mls/hr IV STAT ONE Stop: 09/13/20 15:27 Last Admin: 09/13/20 14:46 Dose: 999 mls/hr Documented by: Pantoprazole Sodium 80 mg/ (Sodium Chloride) 20 mls @ 420 mls/hr IVPUSH ONETIME ONE Stop: 09/13/20 14:34 Last Admin: 09/13/20 14:50 Dose: 420 mls/hr Documented by: Pantoprazole Sodium 40 mg/ (Sodium Chloride) 10 mls @ 300 mls/hr IV Q24H [facility] Sodium Chloride (Normal Saline) 1,000 mls @ 125 mls/hr IV ASDIRECTED [facility] Last Admin: 09/13/20 17:39 Dose: 125 mls/hr Documented by: Insulin Aspart (Insulin Aspart 100 Units/Ml 3 Ml Pen) 0 unit SUBCUT TIDAC [facility]; Protocol Last Admin: 09/13/20 17:47 Dose: Not Given Documented by: Insulin Glargine (Insulin Glargine,Human Rec. Analog 100 Units/Ml 3 Ml Pen) 15 units SUBCUT BID [facility] Last Admin: 09/13/20 21:17 Dose: 15 units Documented by: Insulin Human Regular (Insulin Regular, Human 100 Units/Ml 10 Ml Vial) 6 unit SUBCUT ONETIME ONE; Protocol Stop: 09/13/20 13:41 Last Admin: 09/13/20 13:56 Dose: 6 units Documented by: Ketorolac Tromethamine (Ketorolac 15 Mg/Ml Sdv) 15 mg IVPUSH NOW STA Stop: 09/13/20 12:54 Last Admin: 09/13/20 13:00 Dose: 15 mg Documented by: Lorazepam (Lorazepam 2 Mg/Ml Sdv) 1 mg IVPUSH ONETIME ONE Stop: 09/13/20 17:48 Last Admin: 09/13/20 19:13 Dose: Not Given Documented by: Metoclopramide HCl (Metoclopramide 10 Mg/2 Ml Sdv) 10 mg IV ONETIME ONE Stop: 09/13/20 14:28 Last Admin: 09/13/20 14:45 Dose: 10 mg Documented by: Metoclopramide HCl (Metoclopramide 10 Mg/2 Ml Sdv) 5 mg IVPUSH Q6H [facility] Last Admin: 09/13/20 18:16 Dose: Not Given Documented by: Ondansetron HCl (Ondansetron 4 Mg/2 Ml Sdv) 4 mg IVPUSH ONETIME ONE Stop: 09/13/20 12:19 Last Admin: 09/13/20 12:59 Dose: 4 mg Documented by: Ondansetron HCl (Ondansetron 4 Mg/2 Ml Sdv) 4 mg IVPUSH Q6H PRN PRN Reason: Nausea/Vomiting Ondansetron HCl (Ondansetron 4 Mg/2 Ml Sdv) 4 mg IVPUSH Q6H PRN PRN Reason: Nausea/Vomiting Sucralfate (Sucralfate Suspension 1 Gm/10 Ml Cup) 1 gm PO Q6H [facility] Last Admin: 09/14/20 00:51 Dose: Not Given Documented by:
[2020-09-14 12:41] LABS: HEMOGLOBIN A1C 11.6 %
[2020-09-14] MEDS ORDERED: Pantoprazole 40 MG in Sodium Chloride 0.9% 10 ML IV SCH (14:00)
--- NOTE | 2020-09-14 14:49 | PCM.PN ---
<Hao Dominguez - Last Filed: 09/14/20 17:52> - General Info Date of Service: 09/14/20 Admission Dx/Problem (Free Text): Patient states he still having abdominal pain, flank pain bilaterally, nausea, vomiting. Patient states vomiting however has improved since yesterday. Patient also states itching has improved. Patient denies fever, chills. - Review of Systems General: Reports: Fatigue. Denies: Fever, Chills Pulmonary: Denies: Shortness of Breath, Cough Cardiovascular: Denies: Chest Pain, Dyspnea on Exertion Gastrointestinal: Reports: Abdominal Pain, Decreased Appetite, Nausea, Vomiting Neurological: Denies: Confusion, Dizziness Psychiatric: Denies: Confusion - Patient Data Vitals - Most Recent: Last Vital Signs Temp 96.9 F 09/14/20 12:00 Pulse 92 09/14/20 12:00 Resp 22 H 09/14/20 12:00 BP 134/87 09/14/20 12:00 Pulse Ox 95 09/14/20 12:00 Weight - Most Recent: 57.878 kg I&O - Last 24 Hours: Intake & Output 09/13/20 09/14/20 09/14/20 22:59 06:59 14:59 Intake Total 1035 Output Total 1150 Balance -115 Lab Results Last 24 Hours: Laboratory Results - last 24 hr 09/13/20 09/13/20 09/13/20 Range/Units 12:58 13:00 14:24 WBC (4.0-11.0) K/uL RBC (4.50-5.90) M/uL Hgb (13.0-17.0) g/dL Hct (38.0-50.0) % MCV (80.0-98.0) fL MCH (27.0-32.0) pg MCHC (31.0-37.0) g/dL RDW Std Deviation (28.0-62.0) fl RDW Coeff of Erika (11.0-15.0) % Plt Count (150-400) K/uL MPV (7.40-12.00) fL Neut % (Auto) (48.0-80.0) % Lymph % (Auto) (16.0-40.0) % [place] % (Auto) (0.0-15.0) % Eos % (Auto) (0.0-7.0) % Baso % (Auto) (0.0-1.5) % Neut # (Auto) (1.4-5.7) K/uL Lymph # (Auto) (0.6-2.4) K/uL [place] # (Auto) (0.0-0.8) K/uL Eos # (Auto) (0.0-0.7) K/uL Baso # (Auto) (0.0-0.1) K/uL Nucleated RBC % /100WBC Nucleated RBCs # K/uL Sodium (136-148) mmol/L Potassium (3.5-5.1) mmol/L Chloride (98-107) mmol/L Carbon Dioxide (21.0-32.0) mmol/L BUN (7.0-18.0) mg/dL Creatinine (0.8-1.3) mg/dL Est Cr Clr Drug Dosing mL/min Estimated GFR (MDRD) ml/min Glucose (74-106) mg/dL POC Glucose 297 H 260 H (70-99) mg/dL Hemoglobin A1c (4.5 - 6.2) % Calcium (8.5-10.1) mg/dL Phosphorus 3.6 (2.6-4.7) mg/dL Magnesium 2.1 (1.8-2.4) mg/dL Urine Color Urine Appearance Urine pH (5.0-8.0) Ur Specific [place] (1.001-1.035) Urine Protein (NEGATIVE) mg/dL Urine Glucose (UA) (NEGATIVE) mg/dL Urine Ketones (NEGATIVE) mg/dL Urine Occult Blood (NEGATIVE) Urine Nitrite (NEGATIVE) Urine Bilirubin (NEGATIVE) Urine Urobilinogen (<2.0) EU/dL Ur Leukocyte Esterase (NEGATIVE) Urine RBC (0-2/HPF) Urine WBC (0-5/HPF) Ur Epithelial Cells (NONE-FEW) Urine Bacteria (NEGATIVE) Urine Mucus (NONE-MOD) SARS-CoV-2 RNA (RICHIE) (NEGATIVE) 09/13/20 09/13/20 09/13/20 Range/Units 15:35 15:55 17:33 WBC (4.0-11.0) K/uL RBC (4.50-5.90) M/uL Hgb (13.0-17.0) g/dL Hct (38.0-50.0) % MCV (80.0-98.0) fL MCH (27.0-32.0) pg MCHC (31.0-37.0) g/dL RDW Std Deviation (28.0-62.0) fl RDW Coeff of Erika (11.0-15.0) % Plt Count (150-400) K/uL MPV (7.40-12.00) fL Neut % (Auto) (48.0-80.0) % Lymph % (Auto) (16.0-40.0) % [place] % (Auto) (0.0-15.0) % Eos % (Auto) (0.0-7.0) % Baso % (Auto) (0.0-1.5) % Neut # (Auto) (1.4-5.7) K/uL Lymph # (Auto) (0.6-2.4) K/uL [place] # (Auto) (0.0-0.8) K/uL Eos # (Auto) (0.0-0.7) K/uL Baso # (Auto) (0.0-0.1) K/uL Nucleated RBC % /100WBC Nucleated RBCs # K/uL Sodium (136-148) mmol/L Potassium (3.5-5.1) mmol/L Chloride (98-107) mmol/L Carbon Dioxide (21.0-32.0) mmol/L BUN (7.0-18.0) mg/dL Creatinine (0.8-1.3) mg/dL Est Cr Clr Drug Dosing mL/min Estimated GFR (MDRD) ml/min Glucose (74-106) mg/dL POC Glucose 209 H 147 H (70-99) mg/dL Hemoglobin A1c (4.5 - 6.2) % Calcium (8.5-10.1) mg/dL Phosphorus (2.6-4.7) mg/dL Magnesium (1.8-2.4) mg/dL Urine Color Urine Appearance Urine pH (5.0-8.0) Ur Specific [place] (1.001-1.035) Urine Protein (NEGATIVE) mg/dL Urine Glucose (UA) (NEGATIVE) mg/dL Urine Ketones (NEGATIVE) mg/dL Urine Occult Blood (NEGATIVE) Urine Nitrite (NEGATIVE) Urine Bilirubin (NEGATIVE) Urine Urobilinogen (<2.0) EU/dL Ur Leukocyte Esterase (NEGATIVE) Urine RBC (0-2/HPF) Urine WBC (0-5/HPF) Ur Epithelial Cells (NONE-FEW) Urine Bacteria (NEGATIVE) Urine Mucus (NONE-MOD) SARS-CoV-2 RNA (RICHIE) NEGATIVE (NEGATIVE) 09/13/20 09/13/20 09/14/20 Range/Units 21:13 21:25 00:58 WBC (4.0-11.0) K/uL RBC (4.50-5.90) M/uL Hgb 10.2 L (13.0-17.0) g/dL Hct 31.8 L (38.0-50.0) % MCV (80.0-98.0) fL MCH (27.0-32.0) pg MCHC (31.0-37.0) g/dL RDW Std Deviation (28.0-62.0) fl RDW Coeff of Erika (11.0-15.0) % Plt Count (150-400) K/uL MPV (7.40-12.00) fL Neut % (Auto) (48.0-80.0) % Lymph % (Auto) (16.0-40.0) % [place] % (Auto) (0.0-15.0) % Eos % (Auto) (0.0-7.0) % Baso % (Auto) (0.0-1.5) % Neut # (Auto) (1.4-5.7) K/uL Lymph # (Auto) (0.6-2.4) K/uL [place] # (Auto) (0.0-0.8) K/uL Eos # (Auto) (0.0-0.7) K/uL Baso # (Auto) (0.0-0.1) K/uL Nucleated RBC % /100WBC Nucleated RBCs # K/uL Sodium (136-148) mmol/L Potassium (3.5-5.1) mmol/L Chloride (98-107) mmol/L Carbon Dioxide (21.0-32.0) mmol/L BUN (7.0-18.0) mg/dL Creatinine (0.8-1.3) mg/dL Est Cr Clr Drug Dosing mL/min Estimated GFR (MDRD) ml/min Glucose (74-106) mg/dL POC Glucose 120 H 104 H (70-99) mg/dL Hemoglobin A1c (4.5 - 6.2) % Calcium (8.5-10.1) mg/dL Phosphorus (2.6-4.7) mg/dL Magnesium (1.8-2.4) mg/dL Urine Color Urine Appearance Urine pH (5.0-8.0) Ur Specific [place] (1.001-1.035) Urine Protein (NEGATIVE) mg/dL Urine Glucose (UA) (NEGATIVE) mg/dL Urine Ketones (NEGATIVE) mg/dL Urine Occult Blood (NEGATIVE) Urine Nitrite (NEGATIVE) Urine Bilirubin (NEGATIVE) Urine Urobilinogen (<2.0) EU/dL Ur Leukocyte Esterase (NEGATIVE) Urine RBC (0-2/HPF) Urine WBC (0-5/HPF) Ur Epithelial Cells (NONE-FEW) Urine Bacteria (NEGATIVE) Urine Mucus (NONE-MOD) SARS-CoV-2 RNA (RICHIE) (NEGATIVE) 09/14/20 09/14/20 09/14/20 Range/Units 06:01 06:40 06:40 WBC 6.04 (4.0-11.0) K/uL RBC 3.43 L (4.50-5.90) M/uL Hgb 8.8 L (13.0-17.0) g/dL Hct 28.0 L (38.0-50.0) % MCV 81.6 (80.0-98.0) fL MCH 25.7 L (27.0-32.0) pg MCHC 31.4 (31.0-37.0) g/dL RDW Std Deviation 43.8 (28.0-62.0) fl RDW Coeff of Erika 15 (11.0-15.0) % Plt Count 218 (150-400) K/uL MPV 9.30 (7.40-12.00) fL Neut % (Auto) 77.5 (48.0-80.0) % Lymph % (Auto) 16.7 (16.0-40.0) % [place] % (Auto) 5.6 (0.0-15.0) % Eos % (Auto) 0.0 (0.0-7.0) % Baso % (Auto) 0.2 (0.0-1.5) % Neut # (Auto) 4.7 (1.4-5.7) K/uL Lymph # (Auto) 1.0 (0.6-2.4) K/uL [place] # (Auto) 0.3 (0.0-0.8) K/uL Eos # (Auto) 0.0 (0.0-0.7) K/uL Baso # (Auto) 0.0 (0.0-0.1) K/uL Nucleated RBC % 0.0 /100WBC Nucleated RBCs # 0 K/uL Sodium 148 (136-148) mmol/L Potassium 3.2 L (3.5-5.1) mmol/L Chloride 113 H (98-107) mmol/L Carbon Dioxide 25.4 (21.0-32.0) mmol/L BUN 20 H (7.0-18.0) mg/dL Creatinine 1.0 (0.8-1.3) mg/dL Est Cr Clr Drug Dosing 94.86 mL/min Estimated GFR (MDRD) > 60.0 ml/min Glucose 93 (74-106) mg/dL POC Glucose 77 (70-99) mg/dL Hemoglobin A1c (4.5 - 6.2) % Calcium 8.2 L (8.5-10.1) mg/dL Phosphorus (2.6-4.7) mg/dL Magnesium (1.8-2.4) mg/dL Urine Color Urine Appearance Urine pH (5.0-8.0) Ur Specific [place] (1.001-1.035) Urine Protein (NEGATIVE) mg/dL Urine Glucose (UA) (NEGATIVE) mg/dL Urine Ketones (NEGATIVE) mg/dL Urine Occult Blood (NEGATIVE) Urine Nitrite (NEGATIVE) Urine Bilirubin (NEGATIVE) Urine Urobilinogen (<2.0) EU/dL Ur Leukocyte Esterase (NEGATIVE) Urine RBC (0-2/HPF) Urine WBC (0-5/HPF) Ur Epithelial Cells (NONE-FEW) Urine Bacteria (NEGATIVE) Urine Mucus (NONE-MOD) SARS-CoV-2 RNA (RICHIE) (NEGATIVE) 09/14/20 09/14/20 09/14/20 Range/Units 06:40 06:40 09:33 WBC (4.0-11.0) K/uL RBC (4.50-5.90) M/uL Hgb (13.0-17.0) g/dL Hct (38.0-50.0) % MCV (80.0-98.0) fL MCH (27.0-32.0) pg MCHC (31.0-37.0) g/dL RDW Std Deviation (28.0-62.0) fl RDW Coeff of Erika (11.0-15.0) % Plt Count (150-400) K/uL MPV (7.40-12.00) fL Neut % (Auto) (48.0-80.0) % Lymph % (Auto) (16.0-40.0) % [place] % (Auto) (0.0-15.0) % Eos % (Auto) (0.0-7.0) % Baso % (Auto) (0.0-1.5) % Neut # (Auto) (1.4-5.7) K/uL Lymph # (Auto) (0.6-2.4) K/uL [place] # (Auto) (0.0-0.8) K/uL Eos # (Auto) (0.0-0.7) K/uL Baso # (Auto) (0.0-0.1) K/uL Nucleated RBC % /100WBC Nucleated RBCs # K/uL Sodium (136-148) mmol/L Potassium (3.5-5.1) mmol/L Chloride (98-107) mmol/L Carbon Dioxide (21.0-32.0) mmol/L BUN (7.0-18.0) mg/dL Creatinine (0.8-1.3) mg/dL Est Cr Clr Drug Dosing mL/min Estimated GFR (MDRD) ml/min Glucose (74-106) mg/dL POC Glucose (70-99) mg/dL Hemoglobin A1c 11.6 H (4.5 - 6.2) % Calcium (8.5-10.1) mg/dL Phosphorus (2.6-4.7) mg/dL Magnesium 1.8 (1.8-2.4) mg/dL Urine Color YELLOW Urine Appearance CLEAR Urine pH 7.0 (5.0-8.0) Ur Specific [place] 1.020 (1.001-1.035) Urine Protein 100 H (NEGATIVE) mg/dL Urine Glucose (UA) >=1000 (NEGATIVE) mg/dL Urine Ketones TRACE H (NEGATIVE) mg/dL Urine Occult Blood SMALL H (NEGATIVE) Urine Nitrite NEGATIVE (NEGATIVE) Urine Bilirubin NEGATIVE (NEGATIVE) Urine Urobilinogen 0.2 (<2.0) EU/dL Ur Leukocyte Esterase NEGATIVE (NEGATIVE) Urine RBC 0-2 (0-2/HPF) Urine WBC 5-9 (0-5/HPF) Ur Epithelial Cells RARE (NONE-FEW) Urine Bacteria FEW (NEGATIVE) Urine Mucus LIGHT (NONE-MOD) SARS-CoV-2 RNA (RICHIE) (NEGATIVE) 09/14/20 Range/Units 11:57 WBC (4.0-11.0) K/uL RBC (4.50-5.90) M/uL Hgb (13.0-17.0) g/dL Hct (38.0-50.0) % MCV (80.0-98.0) fL MCH (27.0-32.0) pg MCHC (31.0-37.0) g/dL RDW Std Deviation (28.0-62.0) fl RDW Coeff of Erika (11.0-15.0) % Plt Count (150-400) K/uL MPV (7.40-12.00) fL Neut % (Auto) (48.0-80.0) % Lymph % (Auto) (16.0-40.0) % [place] % (Auto) (0.0-15.0) % Eos % (Auto) (0.0-7.0) % Baso % (Auto) (0.0-1.5) % Neut # (Auto) (1.4-5.7) K/uL Lymph # (Auto) (0.6-2.4) K/uL [place] # (Auto) (0.0-0.8) K/uL Eos # (Auto) (0.0-0.7) K/uL Baso # (Auto) (0.0-0.1) K/uL Nucleated RBC % /100WBC Nucleated RBCs # K/uL Sodium (136-148) mmol/L Potassium (3.5-5.1) mmol/L Chloride (98-107) mmol/L Carbon Dioxide (21.0-32.0) mmol/L BUN (7.0-18.0) mg/dL Creatinine (0.8-1.3) mg/dL Est Cr Clr Drug Dosing mL/min Estimated GFR (MDRD) ml/min Glucose (74-106) mg/dL POC Glucose 184 H (70-99) mg/dL Hemoglobin A1c (4.5 - 6.2) % Calcium (8.5-10.1) mg/dL Phosphorus (2.6-4.7) mg/dL Magnesium (1.8-2.4) mg/dL Urine Color Urine Appearance Urine pH (5.0-8.0) Ur Specific [place] (1.001-1.035) Urine Protein (NEGATIVE) mg/dL Urine Glucose (UA) (NEGATIVE) mg/dL Urine Ketones (NEGATIVE) mg/dL Urine Occult Blood (NEGATIVE) Urine Nitrite (NEGATIVE) Urine Bilirubin (NEGATIVE) Urine Urobilinogen (<2.0) EU/dL Ur Leukocyte Esterase (NEGATIVE) Urine RBC (0-2/HPF) Urine WBC (0-5/HPF) Ur Epithelial Cells (NONE-FEW) Urine Bacteria (NEGATIVE) Urine Mucus (NONE-MOD) SARS-CoV-2 RNA (RICHIE) (NEGATIVE) Med Orders - Current: Current Medications Dextrose/Water (50% Dextrose In Water 50 Ml Syringe) 50 ml IVPUSH ASDIRECTED PRN PRN Reason: Hypoglycemia Diphenhydramine HCl (Diphenhydramine 50 Mg/Ml Sdv) 25 mg IVPUSH Q6H PRN PRN Reason: Itching Last Admin: 09/14/20 09:42 Dose: 25 mg Documented by: Glucagon (Glucagon,Human Recombinant 1 Mg Vial) 1 mg IM ASDIRECTED PRN PRN Reason: Hypoglycemia Pantoprazole Sodium 40 mg/ (Sodium Chloride) 10 mls @ 300 mls/hr IV Q12HR AUGUSTINE Last Admin: 09/14/20 09:06 Dose: 300 mls/hr Documented by: Ceftriaxone Sodium/Dextrose 1 (gm/ Premix) 50 mls @ 100 mls/hr IV Q24H AUGUSTINE Last Admin: 09/13/20 18:24 Dose: 100 mls/hr Documented by: Lactated Ringer's (Ringers, Lactated) 1,000 mls @ 125 mls/hr IV ASDIRECTED [facility] Last Infusion: 09/14/20 06:04 Dose: 0 mls/hr Documented by: Dextrose/Lactated Ringer's (Dextrose 5%-Lactated Ringers) 1,000 mls @ 125 mls/hr IV ASDIRECTED [facility] Last Admin: 09/14/20 14:07 Dose: 125 mls/hr Documented by: Insulin Aspart (Insulin Aspart 100 Units/Ml 3 Ml Pen) 0 unit SUBCUT Q6H AUGUSTINE; Protocol Last Admin: 09/14/20 12:48 Dose: 1 unit Documented by: Insulin Glargine (Insulin Glargine,Human Rec. Analog 100 Units/Ml 3 Ml Pen) 15 units SUBCUT BEDTIME AUGUSTINE Metoclopramide HCl (Metoclopramide 10 Mg/2 Ml Sdv) 5 mg IVPUSH Q6H [facility] Last Admin: 09/14/20 09:05 Dose: 5 mg Documented by: Morphine Sulfate (Morphine 2 Mg/Ml Syringe) 2 mg IVPUSH Q4H PRN PRN Reason: Pain Last Admin: 09/14/20 09:34 Dose: 2 mg Documented by: Ondansetron HCl (Ondansetron 4 Mg/2 Ml Sdv) 4 mg IVPUSH Q4H PRN PRN Reason: Nausea/Vomiting Last Admin: 09/13/20 22:51 Dose: 4 mg Documented by: Sucralfate (Sucralfate Suspension 1 Gm/10 Ml Cup) 1 gm PO Q6H [facility] Last Admin: 09/14/20 12:48 Dose: 1 gm Documented by: Discontinued Medications Al Hydroxide/Mg Hydroxide 15 (ml/ Lidocaine HCl 5 ml) 0 ml PO ONETIME ONE Stop: 09/13/20 15:57 Last Admin: 09/13/20 16:07 Dose: 20 each Documented by: Dextrose/Water (50% Dextrose In Water 50 Ml Syringe) 50 ml IVPUSH ASDIRECTED PRN PRN Reason: Hypoglycemia Dextrose/Water (50% Dextrose In Water 50 Ml Syringe) 50 ml IVPUSH ASDIRECTED PRN PRN Reason: Hypoglycemia Diphenhydramine HCl (Diphenhydramine 50 Mg/Ml Sdv) 50 mg IVPUSH ONETIME ONE Stop: 09/13/20 12:54 Last Admin: 09/13/20 13:00 Dose: 50 mg Documented by: Glucagon (Glucagon,Human Recombinant 1 Mg Vial) 1 mg IM ASDIRECTED PRN PRN Reason: Hypoglycemia Glucagon (Glucagon,Human Recombinant 1 Mg Vial) 1 mg IM ASDIRECTED PRN PRN Reason: Hypoglycemia Haloperidol Lactate (Haloperidol Lactate 5 Mg/Ml Sdv) 1 mg IM ONETIME ONE Stop: 09/13/20 17:42 Last Admin: 09/13/20 19:13 Dose: Not Given Documented by: Haloperidol Lactate (Haloperidol Lactate 5 Mg/Ml Sdv) 2 mg IM ONETIME ONE Stop: 09/13/20 22:37 Last Admin: 09/13/20 22:53 Dose: 2 mg Documented by: Sodium Chloride (Normal Saline) 1,000 mls @ 999 mls/hr IV STAT ONE Stop: 09/13/20 13:18 Last Admin: 09/13/20 12:58 Dose: 999 mls/hr Documented by: Sodium Chloride (Normal Saline) 1,000 mls @ 999 mls/hr IV STAT ONE Stop: 09/13/20 15:27 Last Admin: 09/13/20 14:46 Dose: 999 mls/hr Documented by: Pantoprazole Sodium 80 mg/ (Sodium Chloride) 20 mls @ 420 mls/hr IVPUSH ONETIME ONE Stop: 09/13/20 14:34 Last Admin: 09/13/20 14:50 Dose: 420 mls/hr Documented by: Pantoprazole Sodium 40 mg/ (Sodium Chloride) 10 mls @ 300 mls/hr IV Q24H AUGUSTINE Sodium Chloride (Normal Saline) 1,000 mls @ 125 mls/hr IV ASDIRECTED [facility] Last Admin: 09/13/20 17:39 Dose: 125 mls/hr Documented by: Potassium Chloride 40 meq/ (Premix) 100 mls @ 25 mls/hr IV ONETIME ONE Stop: 09/14/20 12:59 Last Admin: 09/14/20 09:06 Dose: 25 mls/hr Documented by: Insulin Aspart (Insulin Aspart 100 Units/Ml 3 Ml Pen) 0 unit SUBCUT TIDAC [facility]; Protocol Last Admin: 09/13/20 17:47 Dose: Not Given Documented by: Insulin Glargine (Insulin Glargine,Human Rec. Analog 100 Units/Ml 3 Ml Pen) 15 units SUBCUT BID [facility] Last Admin: 09/13/20 21:17 Dose: 15 units Documented by: Insulin Human Regular (Insulin Regular, Human 100 Units/Ml 10 Ml Vial) 6 unit SUBCUT ONETIME ONE; Protocol Stop: 09/13/20 13:41 Last Admin: 09/13/20 13:56 Dose: 6 units Documented by: Ketorolac Tromethamine (Ketorolac 15 Mg/Ml Sdv) 15 mg IVPUSH NOW STA Stop: 09/13/20 12:54 Last Admin: 09/13/20 13:00 Dose: 15 mg Documented by: Lorazepam (Lorazepam 2 Mg/Ml Sdv) 1 mg IVPUSH ONETIME ONE Stop: 09/13/20 17:48 Last Admin: 09/13/20 19:13 Dose: Not Given Documented by: Metoclopramide HCl (Metoclopramide 10 Mg/2 Ml Sdv) 10 mg IV ONETIME ONE Stop: 09/13/20 14:28 Last Admin: 09/13/20 14:45 Dose: 10 mg Documented by: Metoclopramide HCl (Metoclopramide 10 Mg/2 Ml Sdv) 5 mg IVPUSH Q6H [facility] Last Admin: 09/13/20 18:16 Dose: Not Given Documented by: Ondansetron HCl (Ondansetron 4 Mg/2 Ml Sdv) 4 mg IVPUSH ONETIME ONE Stop: 09/13/20 12:19 Last Admin: 09/13/20 12:59 Dose: 4 mg Documented by: Ondansetron HCl (Ondansetron 4 Mg/2 Ml Sdv) 4 mg IVPUSH Q6H PRN PRN Reason: Nausea/Vomiting Ondansetron HCl (Ondansetron 4 Mg/2 Ml Sdv) 4 mg IVPUSH Q6H PRN PRN Reason: Nausea/Vomiting Sucralfate (Sucralfate Suspension 1 Gm/10 Ml Cup) 1 gm PO Q6H [facility] Last Admin: 09/14/20 00:51 Dose: Not Given Documented by: - Exam General: Alert Lungs: Clear to Auscultation, Normal Respiratory Effort Cardiovascular: Regular Rate, Regular Rhythm GI/Abdominal Exam: Soft, Non-Tender Extremities: No Pedal Edema Psy/Mental Status: Alert - Patient Data Lab Results Last 24 hrs: Laboratory Results - last 24 hr 09/13/20 09/13/20 09/13/20 Range/Units 12:58 13:00 14:24 WBC (4.0-11.0) K/uL RBC (4.50-5.90) M/uL Hgb (13.0-17.0) g/dL Hct (38.0-50.0) % MCV (80.0-98.0) fL MCH (27.0-32.0) pg MCHC (31.0-37.0) g/dL RDW Std Deviation (28.0-62.0) fl RDW Coeff of Erika (11.0-15.0) % Plt Count (150-400) K/uL MPV (7.40-12.00) fL Neut % (Auto) (48.0-80.0) % Lymph % (Auto) (16.0-40.0) % [place] % (Auto) (0.0-15.0) % Eos % (Auto) (0.0-7.0) % Baso % (Auto) (0.0-1.5) % Neut # (Auto) (1.4-5.7) K/uL Lymph # (Auto) (0.6-2.4) K/uL [place] # (Auto) (0.0-0.8) K/uL Eos # (Auto) (0.0-0.7) K/uL Baso # (Auto) (0.0-0.1) K/uL Nucleated RBC % /100WBC Nucleated RBCs # K/uL Sodium (136-148) mmol/L Potassium (3.5-5.1) mmol/L Chloride (98-107) mmol/L Carbon Dioxide (21.0-32.0) mmol/L BUN (7.0-18.0) mg/dL Creatinine (0.8-1.3) mg/dL Est Cr Clr Drug Dosing mL/min Estimated GFR (MDRD) ml/min Glucose (74-106) mg/dL POC Glucose 297 H 260 H (70-99) mg/dL Hemoglobin A1c (4.5 - 6.2) % Calcium (8.5-10.1) mg/dL Phosphorus 3.6 (2.6-4.7) mg/dL Magnesium 2.1 (1.8-2.4) mg/dL Urine Color Urine Appearance Urine pH (5.0-8.0) Ur Specific [place] (1.001-1.035) Urine Protein (NEGATIVE) mg/dL Urine Glucose (UA) (NEGATIVE) mg/dL Urine Ketones (NEGATIVE) mg/dL Urine Occult Blood (NEGATIVE) Urine Nitrite (NEGATIVE) Urine Bilirubin (NEGATIVE) Urine Urobilinogen (<2.0) EU/dL Ur Leukocyte Esterase (NEGATIVE) Urine RBC (0-2/HPF) Urine WBC (0-5/HPF) Ur Epithelial Cells (NONE-FEW) Urine Bacteria (NEGATIVE) Urine Mucus (NONE-MOD) SARS-CoV-2 RNA (RICHIE) (NEGATIVE) 09/13/20 09/13/20 09/13/20 Range/Units 15:35 15:55 17:33 WBC (4.0-11.0) K/uL RBC (4.50-5.90) M/uL Hgb (13.0-17.0) g/dL Hct (38.0-50.0) % MCV (80.0-98.0) fL MCH (27.0-32.0) pg MCHC (31.0-37.0) g/dL RDW Std Deviation (28.0-62.0) fl RDW Coeff of Erika (11.0-15.0) % Plt Count (150-400) K/uL MPV (7.40-12.00) fL Neut % (Auto) (48.0-80.0) % Lymph % (Auto) (16.0-40.0) % [place] % (Auto) (0.0-15.0) % Eos % (Auto) (0.0-7.0) % Baso % (Auto) (0.0-1.5) % Neut # (Auto) (1.4-5.7) K/uL Lymph # (Auto) (0.6-2.4) K/uL [place] # (Auto) (0.0-0.8) K/uL Eos # (Auto) (0.0-0.7) K/uL Baso # (Auto) (0.0-0.1) K/uL Nucleated RBC % /100WBC Nucleated RBCs # K/uL Sodium (136-148) mmol/L Potassium (3.5-5.1) mmol/L Chloride (98-107) mmol/L Carbon Dioxide (21.0-32.0) mmol/L BUN (7.0-18.0) mg/dL Creatinine (0.8-1.3) mg/dL Est Cr Clr Drug Dosing mL/min Estimated GFR (MDRD) ml/min Glucose (74-106) mg/dL POC Glucose 209 H 147 H (70-99) mg/dL Hemoglobin A1c (4.5 - 6.2) % Calcium (8.5-10.1) mg/dL Phosphorus (2.6-4.7) mg/dL Magnesium (1.8-2.4) mg/dL Urine Color Urine Appearance Urine pH (5.0-8.0) Ur Specific [place] (1.001-1.035) Urine Protein (NEGATIVE) mg/dL Urine Glucose (UA) (NEGATIVE) mg/dL Urine Ketones (NEGATIVE) mg/dL Urine Occult Blood (NEGATIVE) Urine Nitrite (NEGATIVE) Urine Bilirubin (NEGATIVE) Urine Urobilinogen (<2.0) EU/dL Ur Leukocyte Esterase (NEGATIVE) Urine RBC (0-2/HPF) Urine WBC (0-5/HPF) Ur Epithelial Cells (NONE-FEW) Urine Bacteria (NEGATIVE) Urine Mucus (NONE-MOD) SARS-CoV-2 RNA (RICHIE) NEGATIVE (NEGATIVE) 09/13/20 09/13/20 09/14/20 Range/Units 21:13 21:25 00:58 WBC (4.0-11.0) K/uL RBC (4.50-5.90) M/uL Hgb 10.2 L (13.0-17.0) g/dL Hct 31.8 L (38.0-50.0) % MCV (80.0-98.0) fL MCH (27.0-32.0) pg MCHC (31.0-37.0) g/dL RDW Std Deviation (28.0-62.0) fl RDW Coeff of Erika (11.0-15.0) % Plt Count (150-400) K/uL MPV (7.40-12.00) fL Neut % (Auto) (48.0-80.0) % Lymph % (Auto) (16.0-40.0) % [place] % (Auto) (0.0-15.0) % Eos % (Auto) (0.0-7.0) % Baso % (Auto) (0.0-1.5) % Neut # (Auto) (1.4-5.7) K/uL Lymph # (Auto) (0.6-2.4) K/uL [place] # (Auto) (0.0-0.8) K/uL Eos # (Auto) (0.0-0.7) K/uL Baso # (Auto) (0.0-0.1) K/uL Nucleated RBC % /100WBC Nucleated RBCs # K/uL Sodium (136-148) mmol/L Potassium (3.5-5.1) mmol/L Chloride (98-107) mmol/L Carbon Dioxide (21.0-32.0) mmol/L BUN (7.0-18.0) mg/dL Creatinine (0.8-1.3) mg/dL Est Cr Clr Drug Dosing mL/min Estimated GFR (MDRD) ml/min Glucose (74-106) mg/dL POC Glucose 120 H 104 H (70-99) mg/dL Hemoglobin A1c (4.5 - 6.2) % Calcium (8.5-10.1) mg/dL Phosphorus (2.6-4.7) mg/dL Magnesium (1.8-2.4) mg/dL Urine Color Urine Appearance Urine pH (5.0-8.0) Ur Specific [place] (1.001-1.035) Urine Protein (NEGATIVE) mg/dL Urine Glucose (UA) (NEGATIVE) mg/dL Urine Ketones (NEGATIVE) mg/dL Urine Occult Blood (NEGATIVE) Urine Nitrite (NEGATIVE) Urine Bilirubin (NEGATIVE) Urine Urobilinogen (<2.0) EU/dL Ur Leukocyte Esterase (NEGATIVE) Urine RBC (0-2/HPF) Urine WBC (0-5/HPF) Ur Epithelial Cells (NONE-FEW) Urine Bacteria (NEGATIVE) Urine Mucus (NONE-MOD) SARS-CoV-2 RNA (RICHIE) (NEGATIVE) 09/14/20 09/14/20 09/14/20 Range/Units 06:01 06:40 06:40 WBC 6.04 (4.0-11.0) K/uL RBC 3.43 L (4.50-5.90) M/uL Hgb 8.8 L (13.0-17.0) g/dL Hct 28.0 L (38.0-50.0) % MCV 81.6 (80.0-98.0) fL MCH 25.7 L (27.0-32.0) pg MCHC 31.4 (31.0-37.0) g/dL RDW Std Deviation 43.8 (28.0-62.0) fl RDW Coeff of Erika 15 (11.0-15.0) % Plt Count 218 (150-400) K/uL MPV 9.30 (7.40-12.00) fL Neut % (Auto) 77.5 (48.0-80.0) % Lymph % (Auto) 16.7 (16.0-40.0) % [place] % (Auto) 5.6 (0.0-15.0) % Eos % (Auto) 0.0 (0.0-7.0) % Baso % (Auto) 0.2 (0.0-1.5) % Neut # (Auto) 4.7 (1.4-5.7) K/uL Lymph # (Auto) 1.0 (0.6-2.4) K/uL [place] # (Auto) 0.3 (0.0-0.8) K/uL Eos # (Auto) 0.0 (0.0-0.7) K/uL Baso # (Auto) 0.0 (0.0-0.1) K/uL Nucleated RBC % 0.0 /100WBC Nucleated RBCs # 0 K/uL Sodium 148 (136-148) mmol/L Potassium 3.2 L (3.5-5.1) mmol/L Chloride 113 H (98-107) mmol/L Carbon Dioxide 25.4 (21.0-32.0) mmol/L BUN 20 H (7.0-18.0) mg/dL Creatinine 1.0 (0.8-1.3) mg/dL Est Cr Clr Drug Dosing 94.86 mL/min Estimated GFR (MDRD) > 60.0 ml/min Glucose 93 (74-106) mg/dL POC Glucose 77 (70-99) mg/dL Hemoglobin A1c (4.5 - 6.2) % Calcium 8.2 L (8.5-10.1) mg/dL Phosphorus (2.6-4.7) mg/dL Magnesium (1.8-2.4) mg/dL Urine Color Urine Appearance Urine pH (5.0-8.0) Ur Specific [place] (1.001-1.035) Urine Protein (NEGATIVE) mg/dL Urine Glucose (UA) (NEGATIVE) mg/dL Urine Ketones (NEGATIVE) mg/dL Urine Occult Blood (NEGATIVE) Urine Nitrite (NEGATIVE) Urine Bilirubin (NEGATIVE) Urine Urobilinogen (<2.0) EU/dL Ur Leukocyte Esterase (NEGATIVE) Urine RBC (0-2/HPF) Urine WBC (0-5/HPF) Ur Epithelial Cells (NONE-FEW) Urine Bacteria (NEGATIVE) Urine Mucus (NONE-MOD) SARS-CoV-2 RNA (RICHIE) (NEGATIVE) 09/14/20 09/14/20 09/14/20 Range/Units 06:40 06:40 09:33 WBC (4.0-11.0) K/uL RBC (4.50-5.90) M/uL Hgb (13.0-17.0) g/dL Hct (38.0-50.0) % MCV (80.0-98.0) fL MCH (27.0-32.0) pg MCHC (31.0-37.0) g/dL RDW Std Deviation (28.0-62.0) fl RDW Coeff of Erika (11.0-15.0) % Plt Count (150-400) K/uL MPV (7.40-12.00) fL Neut % (Auto) (48.0-80.0) % Lymph % (Auto) (16.0-40.0) % [place] % (Auto) (0.0-15.0) % Eos % (Auto) (0.0-7.0) % Baso % (Auto) (0.0-1.5) % Neut # (Auto) (1.4-5.7) K/uL Lymph # (Auto) (0.6-2.4) K/uL [place] # (Auto) (0.0-0.8) K/uL Eos # (Auto) (0.0-0.7) K/uL Baso # (Auto) (0.0-0.1) K/uL Nucleated RBC % /100WBC Nucleated RBCs # K/uL Sodium (136-148) mmol/L Potassium (3.5-5.1) mmol/L Chloride (98-107) mmol/L Carbon Dioxide (21.0-32.0) mmol/L BUN (7.0-18.0) mg/dL Creatinine (0.8-1.3) mg/dL Est Cr Clr Drug Dosing mL/min Estimated GFR (MDRD) ml/min Glucose (74-106) mg/dL POC Glucose (70-99) mg/dL Hemoglobin A1c 11.6 H (4.5 - 6.2) % Calcium (8.5-10.1) mg/dL Phosphorus (2.6-4.7) mg/dL Magnesium 1.8 (1.8-2.4) mg/dL Urine Color YELLOW Urine Appearance CLEAR Urine pH 7.0 (5.0-8.0) Ur Specific [place] 1.020 (1.001-1.035) Urine Protein 100 H (NEGATIVE) mg/dL Urine Glucose (UA) >=1000 (NEGATIVE) mg/dL Urine Ketones TRACE H (NEGATIVE) mg/dL Urine Occult Blood SMALL H (NEGATIVE) Urine Nitrite NEGATIVE (NEGATIVE) Urine Bilirubin NEGATIVE (NEGATIVE) Urine Urobilinogen 0.2 (<2.0) EU/dL Ur Leukocyte Esterase NEGATIVE (NEGATIVE) Urine RBC 0-2 (0-2/HPF) Urine WBC 5-9 (0-5/HPF) Ur Epithelial Cells RARE (NONE-FEW) Urine Bacteria FEW (NEGATIVE) Urine Mucus LIGHT (NONE-MOD) SARS-CoV-2 RNA (RICHIE) (NEGATIVE) 09/14/20 Range/Units 11:57 WBC (4.0-11.0) K/uL RBC (4.50-5.90) M/uL Hgb (13.0-17.0) g/dL Hct (38.0-50.0) % MCV (80.0-98.0) fL MCH (27.0-32.0) pg MCHC (31.0-37.0) g/dL RDW Std Deviation (28.0-62.0) fl RDW Coeff of Erika (11.0-15.0) % Plt Count (150-400) K/uL MPV (7.40-12.00) fL Neut % (Auto) (48.0-80.0) % Lymph % (Auto) (16.0-40.0) % [place] % (Auto) (0.0-15.0) % Eos % (Auto) (0.0-7.0) % Baso % (Auto) (0.0-1.5) % Neut # (Auto) (1.4-5.7) K/uL Lymph # (Auto) (0.6-2.4) K/uL [place] # (Auto) (0.0-0.8) K/uL Eos # (Auto) (0.0-0.7) K/uL Baso # (Auto) (0.0-0.1) K/uL Nucleated RBC % /100WBC Nucleated RBCs # K/uL Sodium (136-148) mmol/L Potassium (3.5-5.1) mmol/L Chloride (98-107) mmol/L Carbon Dioxide (21.0-32.0) mmol/L BUN (7.0-18.0) mg/dL Creatinine (0.8-1.3) mg/dL Est Cr Clr Drug Dosing mL/min Estimated GFR (MDRD) ml/min Glucose (74-106) mg/dL POC Glucose 184 H (70-99) mg/dL Hemoglobin A1c (4.5 - 6.2) % Calcium (8.5-10.1) mg/dL Phosphorus (2.6-4.7) mg/dL Magnesium (1.8-2.4) mg/dL Urine Color Urine Appearance Urine pH (5.0-8.0) Ur Specific [place] (1.001-1.035) Urine Protein (NEGATIVE) mg/dL Urine Glucose (UA) (NEGATIVE) mg/dL Urine Ketones (NEGATIVE) mg/dL Urine Occult Blood (NEGATIVE) Urine Nitrite (NEGATIVE) Urine Bilirubin (NEGATIVE) Urine Urobilinogen (<2.0) EU/dL Ur Leukocyte Esterase (NEGATIVE) Urine RBC (0-2/HPF) Urine WBC (0-5/HPF) Ur Epithelial Cells (NONE-FEW) Urine Bacteria (NEGATIVE) Urine Mucus (NONE-MOD) SARS-CoV-2 RNA (RICHIE) (NEGATIVE) Result Diagrams: 09/14/20 06:40 09/14/20 06:40 Sepsis Event Note - Evaluation Sepsis Screening Result: No Definite Risk - Focused Exam Vital Signs: Vital Signs Temp Pulse Resp BP Pulse Ox 09/14/20 12:00 96.9 F 92 22 H 134/87 95 09/14/20 08:00 96.4 F L 101 H 22 H 133/81 97 09/14/20 03:28 100.3 F 104 H 15 112/66 94 L - Problem List & Annotations (1) Gastroenteritis SNOMED Code(s): 28391640 Code(s): K52.9 - NONINFECTIVE GASTROENTERITIS AND COLITIS, UNSPECIFIED Status: Acute Current Visit: No (2) Intractable vomiting SNOMED Code(s): 868018172 Code(s): R11.10 - VOMITING, UNSPECIFIED Status: Acute Current Visit: Yes Qualifiers: Vomiting type: unspecified Nausea presence: with nausea Qualified Code(s): R11.2 - Nausea with vomiting, unspecified (3) Diabetes type 1, uncontrolled SNOMED Code(s): 94559177, 183532463 Code(s): E10.65 - TYPE 1 DIABETES MELLITUS WITH HYPERGLYCEMIA Status: Chronic Priority: Medium Current Visit: Yes Qualifiers: Glycemic state: with hyperglycemia Qualified Code(s): E10.65 - Type 1 diabetes mellitus with hyperglycemia (4) Abdominal pain SNOMED Code(s): 93228253 Code(s): R10.9 - UNSPECIFIED ABDOMINAL PAIN Status: Acute Current Visit: Yes (5) Anemia SNOMED Code(s): 278552246 Code(s): D64.9 - ANEMIA, UNSPECIFIED Status: Acute Current Visit: Yes (6) Chronic abdominal pain SNOMED Code(s): 121895428 Code(s): R10.9 - UNSPECIFIED ABDOMINAL PAIN; G89.29 - OTHER CHRONIC PAIN Status: Acute Current Visit: Yes (7) Chronic vomiting SNOMED Code(s): 64264594 Code(s): R11.10 - VOMITING, UNSPECIFIED Status: Acute Current Visit: Yes (8) Hyperglycemia SNOMED Code(s): 33888829 Code(s): R73.9 - HYPERGLYCEMIA, UNSPECIFIED Status: Acute Current Visit: Yes (9) Itching SNOMED Code(s): 070201392 Code(s): L29.9 - PRURITUS, UNSPECIFIED Status: Acute Current Visit: Yes (10) Upper GI bleed SNOMED Code(s): 25328496 Code(s): K92.2 - GASTROINTESTINAL HEMORRHAGE, UNSPECIFIED Status: Acute Current Visit: No (11) Coffee ground emesis SNOMED Code(s): 20346393 Code(s): K92.0 - HEMATEMESIS Status: Acute Current Visit: Yes - Problem List Review Problem List Initiated/Reviewed/Updated: Yes - My Orders Last 24 Hours: My Active Orders 09/13/20 16:33 Dextrose 50% in Water 50 ml IVPUSH ASDIRECTED PRN Glucagon,Human Recombinant [GlucaGen] 1 mg IM ASDIRECTED PRN 09/13/20 17:48 Oxygen Therapy [RC] PRN VTE/DVT Education [RC] PER UNIT ROUTINE Vital Signs [RC] Q4H Code Status [Resuscitation Status] Routine 09/13/20 17:49 Antiembolic Devices [RC] PER UNIT ROUTINE SCD [Sequential Compression Device] [OM.PC] Routine 09/13/20 18:00 cefTRIAXone [Rocephin in Dextrose,Iso-Osm 1 GM/50 ML] 1 gm Premix Bag 1 bag IV Q24H 09/13/20 19:00 Ondansetron [Zofran] 4 mg IVPUSH Q4H PRN 09/13/20 21:00 Metoclopramide [Reglan] 5 mg IVPUSH Q6H 09/14/20 09:00 Pantoprazole [ProTONIX IV] 40 mg Sodium Chloride 0.9% [Normal Saline] 10 ml IV Q12HR 09/14/20 Dinner NPO Now [Nothing per Oral Now Diet] [DIET] Nothing per Oral After Midnight Diet [DIET] - Plan Plan:: Intractable nausea and vomiting- NPO, 125ml/hr D-5 L/R, 40 mg IV Protonix BID, Zofran 4 mg Q4HR PRN. Morphine for pain Diabetes type 1 Sliding scale insulin Q6, accucheck q6, NPO will transition to clear diet pending vomiting/nausea status, Lantus 15 units daily, Reglan 5 mg every 6 hours GI bleed NPO, IV PPI, monitor CBC and vitals for any signs of hemodynamic instability. H&H Q8 if ground emesis is not improving. Pyelonephritis/Cystitis- Noted on CT findings, Rocephin 1g Q24hr Per documentation patient was seen at [facility] in [place] 08-22-18 for an EGD due to hematemesis. Postop diagnosis positive for findings of linear esophageal ulceration 34 to 38 cm, active gastritis at the greater curvature. General surgery has been consulted and patient to have EGD scheduled tomorrow at 7:30 AM for further diagnosis. <Miguel Pollack - Last Filed: 09/15/20 13:04> - Patient Data Vitals - Most Recent: Last Vital Signs Temp 37.2 C 09/15/20 12:26 Pulse 99 09/15/20 12:26 Resp 16 09/15/20 12:26 BP 153/96 H 09/15/20 12:26 Pulse Ox 98 09/15/20 12:26 I&O - Last 24 Hours: Intake & Output 09/14/20 09/15/20 09/15/20 22:59 06:59 14:59 Intake Total 1572 1135 250 Output Total 2575 1850 Balance -1003 -715 250 Lab Results Last 24 Hours: Laboratory Results - last 24 hr 09/14/20 09/14/20 09/14/20 Range/Units 17:35 18:51 21:04 WBC (4.0-11.0) K/uL RBC (4.50-5.90) M/uL Hgb 9.2 L (13.0-17.0) g/dL Hct 28.4 L (38.0-50.0) % MCV (80.0-98.0) fL MCH (27.0-32.0) pg MCHC (31.0-37.0) g/dL RDW Std Deviation (28.0-62.0) fl RDW Coeff of Erika (11.0-15.0) % Plt Count (150-400) K/uL MPV (7.40-12.00) fL Neut % (Auto) (48.0-80.0) % Lymph % (Auto) (16.0-40.0) % [place] % (Auto) (0.0-15.0) % Eos % (Auto) (0.0-7.0) % Baso % (Auto) (0.0-1.5) % Neut # (Auto) (1.4-5.7) K/uL Lymph # (Auto) (0.6-2.4) K/uL [place] # (Auto) (0.0-0.8) K/uL Eos # (Auto) (0.0-0.7) K/uL Baso # (Auto) (0.0-0.1) K/uL Nucleated RBC % /100WBC Nucleated RBCs # K/uL Sodium (136-148) mmol/L Potassium (3.5-5.1) mmol/L Chloride (98-107) mmol/L Carbon Dioxide (21.0-32.0) mmol/L BUN (7.0-18.0) mg/dL Creatinine (0.8-1.3) mg/dL Est Cr Clr Drug Dosing mL/min Estimated GFR (MDRD) ml/min Glucose (74-106) mg/dL POC Glucose 274 H 221 H (70-99) mg/dL Calcium (8.5-10.1) mg/dL Magnesium (1.8-2.4) mg/dL 09/15/20 09/15/20 09/15/20 Range/Units 00:46 06:19 06:32 WBC 6.55 (4.0-11.0) K/uL RBC 3.54 L (4.50-5.90) M/uL Hgb 9.3 L (13.0-17.0) g/dL Hct 28.5 L (38.0-50.0) % MCV 80.5 (80.0-98.0) fL MCH 26.3 L (27.0-32.0) pg MCHC 32.6 (31.0-37.0) g/dL RDW Std Deviation 42.3 (28.0-62.0) fl RDW Coeff of Erika 15 (11.0-15.0) % Plt Count 234 (150-400) K/uL MPV 9.40 (7.40-12.00) fL Neut % (Auto) 70.3 (48.0-80.0) % Lymph % (Auto) 24.6 (16.0-40.0) % [place] % (Auto) 4.9 (0.0-15.0) % Eos % (Auto) 0.0 (0.0-7.0) % Baso % (Auto) 0.2 (0.0-1.5) % Neut # (Auto) 4.6 (1.4-5.7) K/uL Lymph # (Auto) 1.6 (0.6-2.4) K/uL [place] # (Auto) 0.3 (0.0-0.8) K/uL Eos # (Auto) 0.0 (0.0-0.7) K/uL Baso # (Auto) 0.0 (0.0-0.1) K/uL Nucleated RBC % 0.0 /100WBC Nucleated RBCs # 0 K/uL Sodium (136-148) mmol/L Potassium (3.5-5.1) mmol/L Chloride (98-107) mmol/L Carbon Dioxide (21.0-32.0) mmol/L BUN (7.0-18.0) mg/dL Creatinine (0.8-1.3) mg/dL Est Cr Clr Drug Dosing mL/min Estimated GFR (MDRD) ml/min Glucose (74-106) mg/dL POC Glucose 269 H 180 H (70-99) mg/dL Calcium (8.5-10.1) mg/dL Magnesium (1.8-2.4) mg/dL 09/15/20 09/15/20 Range/Units 06:32 11:07 WBC (4.0-11.0) K/uL RBC (4.50-5.90) M/uL Hgb (13.0-17.0) g/dL Hct (38.0-50.0) % MCV (80.0-98.0) fL MCH (27.0-32.0) pg MCHC (31.0-37.0) g/dL RDW Std Deviation (28.0-62.0) fl RDW Coeff of Erika (11.0-15.0) % Plt Count (150-400) K/uL MPV (7.40-12.00) fL Neut % (Auto) (48.0-80.0) % Lymph % (Auto) (16.0-40.0) % [place] % (Auto) (0.0-15.0) % Eos % (Auto) (0.0-7.0) % Baso % (Auto) (0.0-1.5) % Neut # (Auto) (1.4-5.7) K/uL Lymph # (Auto) (0.6-2.4) K/uL [place] # (Auto) (0.0-0.8) K/uL Eos # (Auto) (0.0-0.7) K/uL Baso # (Auto) (0.0-0.1) K/uL Nucleated RBC % /100WBC Nucleated RBCs # K/uL Sodium 144 (136-148) mmol/L Potassium 3.4 L (3.5-5.1) mmol/L Chloride 110 H (98-107) mmol/L Carbon Dioxide 26.6 (21.0-32.0) mmol/L BUN 16 (7.0-18.0) mg/dL Creatinine 1.0 (0.8-1.3) mg/dL Est Cr Clr Drug Dosing 94.86 mL/min Estimated GFR (MDRD) > 60.0 ml/min Glucose 178 H (74-106) mg/dL POC Glucose 138 H (70-99) mg/dL Calcium 8.8 (8.5-10.1) mg/dL Magnesium 1.7 L (1.8-2.4) mg/dL Med Orders - Current: Current Medications Dextrose/Water (50% Dextrose In Water 50 Ml Syringe) 50 ml IVPUSH ASDIRECTED PRN PRN Reason: Hypoglycemia Diphenhydramine HCl (Diphenhydramine 50 Mg/Ml Sdv) 25 mg IVPUSH Q6H PRN PRN Reason: Itching Last Admin: 09/15/20 12:25 Dose: 25 mg Documented by: Glucagon (Glucagon,Human Recombinant 1 Mg Vial) 1 mg IM ASDIRECTED PRN PRN Reason: Hypoglycemia Pantoprazole Sodium 40 mg/ (Sodium Chloride) 10 mls @ 300 mls/hr IV Q12HR [facility] Last Admin: 09/15/20 08:37 Dose: 300 mls/hr Documented by: Ceftriaxone Sodium/Dextrose 1 (gm/ Premix) 50 mls @ 100 mls/hr IV Q24H [facility] Last Admin: 09/14/20 18:29 Dose: 100 mls/hr Documented by: Lactated Ringer's (Ringers, Lactated) 1,000 mls @ 125 mls/hr IV ASDIRECTED [facility] Last Admin: 09/15/20 13:03 Dose: 125 mls/hr Documented by: Dextrose/Lactated Ringer's (Dextrose 5%-Lactated Ringers) 1,000 mls @ 125 mls/hr IV ASDIRECTED [facility] Last Admin: 09/14/20 14:07 Dose: 125 mls/hr Documented by: Potassium Chloride 40 meq/ (Premix) 100 mls @ 25 mls/hr IV ONETIME ONE Stop: 09/15/20 16:59 Last Admin: 09/15/20 13:00 Dose: 25 mls/hr Documented by: Insulin Aspart (Insulin Aspart 100 Units/Ml 3 Ml Pen) 0 unit SUBCUT Q6H [facility]; Protocol Last Admin: 09/15/20 12:17 Dose: Not Given Documented by: Insulin Glargine (Insulin Glargine,Human Rec. Analog 100 Units/Ml 3 Ml Pen) 15 units SUBCUT BEDTIME [facility] Last Admin: 09/14/20 21:50 Dose: 15 units Documented by: Metoclopramide HCl (Metoclopramide 10 Mg/2 Ml Sdv) 5 mg IVPUSH Q6H [facility] Last Admin: 09/15/20 08:38 Dose: 5 mg Documented by: Morphine Sulfate (Morphine 2 Mg/Ml Syringe) 2 mg IVPUSH Q4H PRN PRN Reason: Pain Last Admin: 09/15/20 08:37 Dose: 2 mg Documented by: Ondansetron HCl (Ondansetron 4 Mg/2 Ml Sdv) 4 mg IVPUSH Q4H PRN PRN Reason: Nausea/Vomiting Last Admin: 09/15/20 11:07 Dose: 4 mg Documented by: Sucralfate (Sucralfate Suspension 1 Gm/10 Ml Cup) 1 gm PO Q6H [facility] Last Admin: 09/15/20 12:25 Dose: 1 gm Documented by: Discontinued Medications Al Hydroxide/Mg Hydroxide 15 (ml/ Lidocaine HCl 5 ml) 0 ml PO ONETIME ONE Stop: 09/13/20 15:57 Last Admin: 09/13/20 16:07 Dose: 20 each Documented by: Dextrose/Water (50% Dextrose In Water 50 Ml Syringe) 50 ml IVPUSH ASDIRECTED PRN PRN Reason: Hypoglycemia Dextrose/Water (50% Dextrose In Water 50 Ml Syringe) 50 ml IVPUSH ASDIRECTED PRN PRN Reason: Hypoglycemia Diphenhydramine HCl (Diphenhydramine 50 Mg/Ml Sdv) 50 mg IVPUSH ONETIME ONE Stop: 09/13/20 12:54 Last Admin: 09/13/20 13:00 Dose: 50 mg Documented by: Fentanyl (Fentanyl 100 Mcg/2 Ml Sdv) Confirm Administered Dose 100 mcg .ROUTE .STK-MED ONE Stop: 09/15/20 06:59 Glucagon (Glucagon,Human Recombinant 1 Mg Vial) 1 mg IM ASDIRECTED PRN PRN Reason: Hypoglycemia Glucagon (Glucagon,Human Recombinant 1 Mg Vial) 1 mg IM ASDIRECTED PRN PRN Reason: Hypoglycemia Haloperidol Lactate (Haloperidol Lactate 5 Mg/Ml Sdv) 1 mg IM ONETIME ONE Stop: 09/13/20 17:42 Last Admin: 09/13/20 19:13 Dose: Not Given Documented by: Haloperidol Lactate (Haloperidol Lactate 5 Mg/Ml Sdv) 2 mg IM ONETIME ONE Stop: 09/13/20 22:37 Last Admin: 09/13/20 22:53 Dose: 2 mg Documented by: Sodium Chloride (Normal Saline) 1,000 mls @ 999 mls/hr IV STAT ONE Stop: 09/13/20 13:18 Last Admin: 09/13/20 12:58 Dose: 999 mls/hr Documented by: Sodium Chloride (Normal Saline) 1,000 mls @ 999 mls/hr IV STAT ONE Stop: 09/13/20 15:27 Last Admin: 09/13/20 14:46 Dose: 999 mls/hr Documented by: Pantoprazole Sodium 80 mg/ (Sodium Chloride) 20 mls @ 420 mls/hr IVPUSH ONETIME ONE Stop: 09/13/20 14:34 Last Admin: 09/13/20 14:50 Dose: 420 mls/hr Documented by: Pantoprazole Sodium 40 mg/ (Sodium Chloride) 10 mls @ 300 mls/hr IV Q24H [facility] Sodium Chloride (Normal Saline) 1,000 mls @ 125 mls/hr IV ASDIRECTED [facility] Last Admin: 09/13/20 17:39 Dose: 125 mls/hr Documented by: Potassium Chloride 40 meq/ (Premix) 100 mls @ 25 mls/hr IV ONETIME ONE Stop: 09/14/20 12:59 Last Admin: 09/14/20 09:06 Dose: 25 mls/hr Documented by: Magnesium Sulfate 2 gm/ Premix 50 mls @ 12.5 mls/hr IV ONETIME ONE Stop: 09/15/20 11:37 Last Admin: 09/15/20 08:37 Dose: 12.5 mls/hr Documented by: Potassium Chloride 20 meq/ (Premix) 50 mls @ 25 mls/hr IV ONETIME ONE Stop: 09/15/20 09:38 Last Admin: 09/15/20 08:51 Dose: Not Given Documented by: Potassium Chloride 40 meq/ (Premix) 100 mls @ 25 mls/hr IV ONETIME ONE Stop: 09/15/20 11:38 Insulin Aspart (Insulin Aspart 100 Units/Ml 3 Ml Pen) 0 unit SUBCUT TIDAC [facility]; Protocol Last Admin: 09/13/20 17:47 Dose: Not Given Documented by: Insulin Glargine (Insulin Glargine,Human Rec. Analog 100 Units/Ml 3 Ml Pen) 15 units SUBCUT BID [facility] Last Admin: 09/13/20 21:17 Dose: 15 units Documented by: Insulin Human Regular (Insulin Regular, Human 100 Units/Ml 10 Ml Vial) 6 unit SUBCUT ONETIME ONE; Protocol Stop: 09/13/20 13:41 Last Admin: 09/13/20 13:56 Dose: 6 units Documented by: Ketorolac Tromethamine (Ketorolac 15 Mg/Ml Sdv) 15 mg IVPUSH NOW STA Stop: 09/13/20 12:54 Last Admin: 09/13/20 13:00 Dose: 15 mg Documented by: Lidocaine HCl (Lidocaine 1% 5 Ml Sdv) Confirm Administered Dose 5 ml .ROUTE .STK-MED ONE Stop: 09/15/20 06:59 Lorazepam (Lorazepam 2 Mg/Ml Sdv) 1 mg IVPUSH ONETIME ONE Stop: 09/13/20 17:48 Last Admin: 09/13/20 19:13 Dose: Not Given Documented by: Metoclopramide HCl (Metoclopramide 10 Mg/2 Ml Sdv) 10 mg IV ONETIME ONE Stop: 09/13/20 14:28 Last Admin: 09/13/20 14:45 Dose: 10 mg Documented by: Metoclopramide HCl (Metoclopramide 10 Mg/2 Ml Sdv) 5 mg IVPUSH Q6H [facility] Last Admin: 09/13/20 18:16 Dose: Not Given Documented by: Ondansetron HCl (Ondansetron 4 Mg/2 Ml Sdv) 4 mg IVPUSH ONETIME ONE Stop: 09/13/20 12:19 Last Admin: 09/13/20 12:59 Dose: 4 mg Documented by: Ondansetron HCl (Ondansetron 4 Mg/2 Ml Sdv) 4 mg IVPUSH Q6H PRN PRN Reason: Nausea/Vomiting Ondansetron HCl (Ondansetron 4 Mg/2 Ml Sdv) 4 mg IVPUSH Q6H PRN PRN Reason: Nausea/Vomiting Ondansetron HCl (Ondansetron 4 Mg/2 Ml Sdv) Confirm Administered Dose 4 mg .ROUTE .STK-MED ONE Stop: 09/15/20 07:53 Propofol (Propofol 200 Mg/20 Ml Sdv) Confirm Administered Dose 200 mg .ROUTE .STK-MED ONE Stop: 09/15/20 06:59 Sucralfate (Sucralfate Suspension 1 Gm/10 Ml Cup) 1 gm PO Q6H [facility] Last Admin: 09/14/20 00:51 Dose: Not Given Documented by: - Patient Data Lab Results Last 24 hrs: Laboratory Results - last 24 hr 09/14/20 09/14/20 09/14/20 Range/Units 17:35 18:51 21:04 WBC (4.0-11.0) K/uL RBC (4.50-5.90) M/uL Hgb 9.2 L (13.0-17.0) g/dL Hct 28.4 L (38.0-50.0) % MCV (80.0-98.0) fL MCH (27.0-32.0) pg MCHC (31.0-37.0) g/dL RDW Std Deviation (28.0-62.0) fl RDW Coeff of Erika (11.0-15.0) % Plt Count (150-400) K/uL MPV (7.40-12.00) fL Neut % (Auto) (48.0-80.0) % Lymph % (Auto) (16.0-40.0) % [place] % (Auto) (0.0-15.0) % Eos % (Auto) (0.0-7.0) % Baso % (Auto) (0.0-1.5) % Neut # (Auto) (1.4-5.7) K/uL Lymph # (Auto) (0.6-2.4) K/uL [place] # (Auto) (0.0-0.8) K/uL Eos # (Auto) (0.0-0.7) K/uL Baso # (Auto) (0.0-0.1) K/uL Nucleated RBC % /100WBC Nucleated RBCs # K/uL Sodium (136-148) mmol/L Potassium (3.5-5.1) mmol/L Chloride (98-107) mmol/L Carbon Dioxide (21.0-32.0) mmol/L BUN (7.0-18.0) mg/dL Creatinine (0.8-1.3) mg/dL Est Cr Clr Drug Dosing mL/min Estimated GFR (MDRD) ml/min Glucose (74-106) mg/dL POC Glucose 274 H 221 H (70-99) mg/dL Calcium (8.5-10.1) mg/dL Magnesium (1.8-2.4) mg/dL 09/15/20 09/15/20 09/15/20 Range/Units 00:46 06:19 06:32 WBC 6.55 (4.0-11.0) K/uL RBC 3.54 L (4.50-5.90) M/uL Hgb 9.3 L (13.0-17.0) g/dL Hct 28.5 L (38.0-50.0) % MCV 80.5 (80.0-98.0) fL MCH 26.3 L (27.0-32.0) pg MCHC 32.6 (31.0-37.0) g/dL RDW Std Deviation 42.3 (28.0-62.0) fl RDW Coeff of Erika 15 (11.0-15.0) % Plt Count 234 (150-400) K/uL MPV 9.40 (7.40-12.00) fL Neut % (Auto) 70.3 (48.0-80.0) % Lymph % (Auto) 24.6 (16.0-40.0) % [place] % (Auto) 4.9 (0.0-15.0) % Eos % (Auto) 0.0 (0.0-7.0) % Baso % (Auto) 0.2 (0.0-1.5) % Neut # (Auto) 4.6 (1.4-5.7) K/uL Lymph # (Auto) 1.6 (0.6-2.4) K/uL [place] # (Auto) 0.3 (0.0-0.8) K/uL Eos # (Auto) 0.0 (0.0-0.7) K/uL Baso # (Auto) 0.0 (0.0-0.1) K/uL Nucleated RBC % 0.0 /100WBC Nucleated RBCs # 0 K/uL Sodium (136-148) mmol/L Potassium (3.5-5.1) mmol/L Chloride (98-107) mmol/L Carbon Dioxide (21.0-32.0) mmol/L BUN (7.0-18.0) mg/dL Creatinine (0.8-1.3) mg/dL Est Cr Clr Drug Dosing mL/min Estimated GFR (MDRD) ml/min Glucose (74-106) mg/dL POC Glucose 269 H 180 H (70-99) mg/dL Calcium (8.5-10.1) mg/dL Magnesium (1.8-2.4) mg/dL 09/15/20 09/15/20 Range/Units 06:32 11:07 WBC (4.0-11.0) K/uL RBC (4.50-5.90) M/uL Hgb (13.0-17.0) g/dL Hct (38.0-50.0) % MCV (80.0-98.0) fL MCH (27.0-32.0) pg MCHC (31.0-37.0) g/dL RDW Std Deviation (28.0-62.0) fl RDW Coeff of Erika (11.0-15.0) % Plt Count (150-400) K/uL MPV (7.40-12.00) fL Neut % (Auto) (48.0-80.0) % Lymph % (Auto) (16.0-40.0) % [place] % (Auto) (0.0-15.0) % Eos % (Auto) (0.0-7.0) % Baso % (Auto) (0.0-1.5) % Neut # (Auto) (1.4-5.7) K/uL Lymph # (Auto) (0.6-2.4) K/uL [place] # (Auto) (0.0-0.8) K/uL Eos # (Auto) (0.0-0.7) K/uL Baso # (Auto) (0.0-0.1) K/uL Nucleated RBC % /100WBC Nucleated RBCs # K/uL Sodium 144 (136-148) mmol/L Potassium 3.4 L (3.5-5.1) mmol/L Chloride 110 H (98-107) mmol/L Carbon Dioxide 26.6 (21.0-32.0) mmol/L BUN 16 (7.0-18.0) mg/dL Creatinine 1.0 (0.8-1.3) mg/dL Est Cr Clr Drug Dosing 94.86 mL/min Estimated GFR (MDRD) > 60.0 ml/min Glucose 178 H (74-106) mg/dL POC Glucose 138 H (70-99) mg/dL Calcium 8.8 (8.5-10.1) mg/dL Magnesium 1.7 L (1.8-2.4) mg/dL Result Diagrams: 09/15/20 06:32 09/15/20 06:32 Sepsis Event Note - Focused Exam Vital Signs: Vital Signs Temp Pulse Resp BP Pulse Ox 09/15/20 12:26 37.2 C 99 16 153/96 H 98 09/15/20 11:35 96 149/94 H 96 09/15/20 10:35 36.6 C 98 143/93 H 97 09/15/20 10:05 94 135/89 96 09/15/20 09:35 96 147/89 H 96 09/15/20 09:20 97 156/98 H 95 09/15/20 09:05 36.9 C 94 16 149/96 H 94 L 09/15/20 08:50 36.8 C 94 17 152/96 H 96 09/15/20 08:35 36.8 C 90 16 146/100 H 96 09/15/20 08:13 92 13 156/107 H 96 09/15/20 08:08 91 15 157/106 H 94 L 09/15/20 08:03 91 17 166/112 H 100 09/15/20 07:58 37 C 95 15 174/105 H 100 09/15/20 04:03 37.9 C 104 H 16 136/91 H 95 - Problem List & Annotations (1) Coffee ground emesis SNOMED Code(s): 25021093 Code(s): K92.0 - HEMATEMESIS Status: Acute Current Visit: Yes (2) Abdominal pain SNOMED Code(s): 16111300 Code(s): R10.9 - UNSPECIFIED ABDOMINAL PAIN Status: Acute Current Visit: Yes (3) Intractable vomiting SNOMED Code(s): 436063705 Code(s): R11.10 - VOMITING, UNSPECIFIED Status: Acute Current Visit: Yes Qualifiers: Vomiting type: unspecified Nausea presence: with nausea Qualified Code(s): R11.2 - Nausea with vomiting, unspecified (4) Itching SNOMED Code(s): 367966386 Code(s): L29.9 - PRURITUS, UNSPECIFIED Status: Acute Current Visit: Yes (5) Diabetes type 1, uncontrolled SNOMED Code(s): 65627337, 916553060 Code(s): E10.65 - TYPE 1 DIABETES MELLITUS WITH HYPERGLYCEMIA Status: Chronic Priority: Medium Current Visit: Yes Qualifiers: Glycemic state: with hyperglycemia Qualified Code(s): E10.65 - Type 1 diabetes mellitus with hyperglycemia - My Orders Last 24 Hours: My Active Orders 09/14/20 21:00 Insulin Glarg,Human.Rec.Analog [LantUS Solostar] 15 units SUBCUT BEDTIME 09/14/20 23:02 Urinary Catheter Assessment [RC] ASDIRECTED 09/14/20 23:15 Insert Clements Catheter [Insert Urinary Catheter] [OM.PC] Q24H - Plan Plan:: I have seen and evaluated the patient and agree with the residents note unless specified in my note
[2020-09-14] MEDS: cefTRIAXone 1 GM in Premix Bag 1 BAG IV SCH (18:29)
[2020-09-14] MEDS: Insulin Glargine,Human Rec. Analog 100 Units/ML 3 ML Pen SUBCUT SCH (21:50)
[2020-09-15] MEDS: Sucralfate Suspension 1 GM/10 ML Cup PO SCH ×4 (00:45→18:05)
[2020-09-15] MEDS: Insulin Aspart 100 Units/ML 3 ML Pen SUBCUT SCH ×4 (00:47→17:08)
[2020-09-15] MEDS: Metoclopramide 10 MG/2 ML SDV IVPUSH SCH ×4 (03:02→20:21)
[2020-09-15] MEDS: Ondansetron 4 MG/2 ML SDV IVPUSH PRN ×2 (03:02→11:07)
[2020-09-15] MEDS: Lactated Ringers 1,000 ML IV SCH ×3 (03:06→21:47)
[2020-09-15] MEDS: Morphine 2 MG/ML SYRINGE IVPUSH PRN ×4 (04:05→20:56)
[2020-09-15] MEDS: diphenhydrAMINE 50 MG/ML SDV IVPUSH PRN ×3 (06:24→19:17)
[2020-09-15] MEDS ORDERED: Propofol 200 MG/20 ML SDV ONE (06:58)
[2020-09-15] MEDS ORDERED: fentaNYL 100 MCG/2 ML SDV ONE (06:58)
[2020-09-15 07:23] LABS: BLOOD UREA NITROGEN,BUN 16 mg/dL (7.0-18.0); CARBON DIOXIDE,CO2 26.6 mmol/L (21.0-32.0); CHLORIDE,CL 110 mmol/L (98-107); GLUCOSE RANDOM 178 mg/dL (74-106); POTASSIUM,K 3.4 mmol/L (3.5-5.1); SODIUM,NA 144 mmol/L (136-148)
[2020-09-15] MEDS ORDERED: Magnesium Sulfate/Water 2 GM in Premix Bag 1 BAG IV ONE (07:38)
[2020-09-15] MEDS ORDERED: Potassium Chloride Riders 20 MEQ in Premix Bag 1 BAG IV ONE (07:39)
[2020-09-15] MEDS ORDERED: Potassium Chloride Riders 40 MEQ in Premix Bag 1 BAG IV ONE ×2 (07:39→13:00)
[2020-09-15] MEDS ORDERED: Ondansetron 4 MG/2 ML SDV ONE (07:52)
--- NOTE | 2020-09-15 08:06 | PCM.OPNOTE ---
- General Post-Op/Procedure Note Date of Surgery/Procedure: 09/15/20 Operative Procedure(s): Diagnostic EGD and biopsy Findings: Inflammation in the fundus, inflammation in distal esophagus. No signs of bleeding Pre Op Diagnosis: Hematemesis Post-Op Diagnosis: Esophagitis, gastritis Anesthesia Technique: MAC Primary Surgeon: Yvonne Richardson Condition: Stable Free Text/Narrative:: Intake & Output 09/14/20 09/15/20 09/15/20 22:59 06:59 14:59 Intake Total 1572 1135 Output Total 3477 6442 Balance -4555 -605
--- NOTE | 2020-09-15 08:15 | PCM48HPAN ---
Post Anesthesia Note - EVALUATION WITHIN 48HRS OF ANESTHETIC Vital Signs in Normal Range: Yes Patient Participated in Evaluation: Yes Respiratory Function Stable: Yes Airway Patent: Yes Cardiovascular Function Stable: Yes Hydration Status Stable: Yes Pain Control Satisfactory: Yes Nausea and Vomiting Control Satisfactory: Yes Mental Status Recovered: Yes Vital Signs: Last Vital Signs Temp 98.6 F 09/15/20 07:58 Pulse 92 09/15/20 08:13 Resp 13 09/15/20 08:13 BP 156/107 H 09/15/20 08:13 Pulse Ox 96 09/15/20 08:13
--- NOTE | 2020-09-15 08:15 | PCM.POSTAN ---
POST ANESTHESIA ASSESSMENT - MENTAL STATUS Mental Status: Alert, Oriented - VITAL SIGNS Vital Signs: Last Vital Signs Temp 98.6 F 09/15/20 07:58 Pulse 92 09/15/20 08:13 Resp 13 09/15/20 08:13 BP 156/107 H 09/15/20 08:13 Pulse Ox 96 09/15/20 08:13 - RESPIRATORY Respiratory Status: Respiratory Rate WNL, Airway Patent, O2 Saturation Stable - CARDIOVASCULAR CV Status: Pulse Rate WNL, Blood Pressure Stable - GASTROINTESTINAL GI Status: No Symptoms - POST OP HYDRATION Hydration Status: Adequate & Stable
[2020-09-15] MEDS: Pantoprazole 40 MG in Sodium Chloride 0.9% 10 ML IV SCH ×2 (08:37→20:20)
--- NOTE | 2020-09-15 15:29 | PCM.PN ---
- General Info Date of Service: 09/15/20 Subjective Update: Patient states he feels sleepy post EGD this morning. States continued abdominal pain, nausea, vomiting, feeling of "skin itchiness". Denies fever, chills, SOB, chest pain. - Review of Systems General: Reports: Fatigue. Denies: Fever, Chills Pulmonary: Denies: Shortness of Breath, Cough Cardiovascular: Denies: Chest Pain, Edema Gastrointestinal: Reports: Abdominal Pain, Decreased Appetite, Nausea, Vomiting Genitourinary: Denies: Dysuria Neurological: Denies: Confusion, Dizziness, Headache - Patient Data Vitals - Most Recent: Last Vital Signs Temp 98.9 F 09/15/20 12:37 Pulse 99 09/15/20 12:37 Resp 16 09/15/20 12:37 BP 153/96 H 09/15/20 12:37 Pulse Ox 98 09/15/20 12:37 Weight - Most Recent: 127 lb 9.6 oz I&O - Last 24 Hours: Intake & Output 09/15/20 09/15/20 09/15/20 06:59 14:59 22:59 Intake Total 1135 250 Output Total 1850 Balance -715 250 Lab Results Last 24 Hours: Laboratory Results - last 24 hr 09/14/20 09/14/20 09/14/20 Range/Units 17:35 18:51 21:04 WBC (4.0-11.0) K/uL RBC (4.50-5.90) M/uL Hgb 9.2 L (13.0-17.0) g/dL Hct 28.4 L (38.0-50.0) % MCV (80.0-98.0) fL MCH (27.0-32.0) pg MCHC (31.0-37.0) g/dL RDW Std Deviation (28.0-62.0) fl RDW Coeff of Erika (11.0-15.0) % Plt Count (150-400) K/uL MPV (7.40-12.00) fL Neut % (Auto) (48.0-80.0) % Lymph % (Auto) (16.0-40.0) % Luce % (Auto) (0.0-15.0) % Eos % (Auto) (0.0-7.0) % Baso % (Auto) (0.0-1.5) % Neut # (Auto) (1.4-5.7) K/uL Lymph # (Auto) (0.6-2.4) K/uL Luce # (Auto) (0.0-0.8) K/uL Eos # (Auto) (0.0-0.7) K/uL Baso # (Auto) (0.0-0.1) K/uL Nucleated RBC % /100WBC Nucleated RBCs # K/uL Sodium (136-148) mmol/L Potassium (3.5-5.1) mmol/L Chloride (98-107) mmol/L Carbon Dioxide (21.0-32.0) mmol/L BUN (7.0-18.0) mg/dL Creatinine (0.8-1.3) mg/dL Est Cr Clr Drug Dosing mL/min Estimated GFR (MDRD) ml/min Glucose (74-106) mg/dL POC Glucose 274 H 221 H (70-99) mg/dL Calcium (8.5-10.1) mg/dL Magnesium (1.8-2.4) mg/dL 09/15/20 09/15/20 09/15/20 Range/Units 00:46 06:19 06:32 WBC 6.55 (4.0-11.0) K/uL RBC 3.54 L (4.50-5.90) M/uL Hgb 9.3 L (13.0-17.0) g/dL Hct 28.5 L (38.0-50.0) % MCV 80.5 (80.0-98.0) fL MCH 26.3 L (27.0-32.0) pg MCHC 32.6 (31.0-37.0) g/dL RDW Std Deviation 42.3 (28.0-62.0) fl RDW Coeff of Erika 15 (11.0-15.0) % Plt Count 234 (150-400) K/uL MPV 9.40 (7.40-12.00) fL Neut % (Auto) 70.3 (48.0-80.0) % Lymph % (Auto) 24.6 (16.0-40.0) % Luce % (Auto) 4.9 (0.0-15.0) % Eos % (Auto) 0.0 (0.0-7.0) % Baso % (Auto) 0.2 (0.0-1.5) % Neut # (Auto) 4.6 (1.4-5.7) K/uL Lymph # (Auto) 1.6 (0.6-2.4) K/uL Luce # (Auto) 0.3 (0.0-0.8) K/uL Eos # (Auto) 0.0 (0.0-0.7) K/uL Baso # (Auto) 0.0 (0.0-0.1) K/uL Nucleated RBC % 0.0 /100WBC Nucleated RBCs # 0 K/uL Sodium (136-148) mmol/L Potassium (3.5-5.1) mmol/L Chloride (98-107) mmol/L Carbon Dioxide (21.0-32.0) mmol/L BUN (7.0-18.0) mg/dL Creatinine (0.8-1.3) mg/dL Est Cr Clr Drug Dosing mL/min Estimated GFR (MDRD) ml/min Glucose (74-106) mg/dL POC Glucose 269 H 180 H (70-99) mg/dL Calcium (8.5-10.1) mg/dL Magnesium (1.8-2.4) mg/dL 09/15/20 09/15/20 Range/Units 06:32 11:07 WBC (4.0-11.0) K/uL RBC (4.50-5.90) M/uL Hgb (13.0-17.0) g/dL Hct (38.0-50.0) % MCV (80.0-98.0) fL MCH (27.0-32.0) pg MCHC (31.0-37.0) g/dL RDW Std Deviation (28.0-62.0) fl RDW Coeff of Erika (11.0-15.0) % Plt Count (150-400) K/uL MPV (7.40-12.00) fL Neut % (Auto) (48.0-80.0) % Lymph % (Auto) (16.0-40.0) % Luce % (Auto) (0.0-15.0) % Eos % (Auto) (0.0-7.0) % Baso % (Auto) (0.0-1.5) % Neut # (Auto) (1.4-5.7) K/uL Lymph # (Auto) (0.6-2.4) K/uL Luce # (Auto) (0.0-0.8) K/uL Eos # (Auto) (0.0-0.7) K/uL Baso # (Auto) (0.0-0.1) K/uL Nucleated RBC % /100WBC Nucleated RBCs # K/uL Sodium 144 (136-148) mmol/L Potassium 3.4 L (3.5-5.1) mmol/L Chloride 110 H (98-107) mmol/L Carbon Dioxide 26.6 (21.0-32.0) mmol/L BUN 16 (7.0-18.0) mg/dL Creatinine 1.0 (0.8-1.3) mg/dL Est Cr Clr Drug Dosing 94.86 mL/min Estimated GFR (MDRD) > 60.0 ml/min Glucose 178 H (74-106) mg/dL POC Glucose 138 H (70-99) mg/dL Calcium 8.8 (8.5-10.1) mg/dL Magnesium 1.7 L (1.8-2.4) mg/dL Med Orders - Current: Current Medications Dextrose/Water (50% Dextrose In Water 50 Ml Syringe) 50 ml IVPUSH ASDIRECTED PRN PRN Reason: Hypoglycemia Diphenhydramine HCl (Diphenhydramine 50 Mg/Ml Sdv) 25 mg IVPUSH Q6H PRN PRN Reason: Itching Last Admin: 09/15/20 12:25 Dose: 25 mg Documented by: Glucagon (Glucagon,Human Recombinant 1 Mg Vial) 1 mg IM ASDIRECTED PRN PRN Reason: Hypoglycemia Pantoprazole Sodium 40 mg/ (Sodium Chloride) 10 mls @ 300 mls/hr IV Q12HR [facility] Last Admin: 09/15/20 08:37 Dose: 300 mls/hr Documented by: Ceftriaxone Sodium/Dextrose 1 (gm/ Premix) 50 mls @ 100 mls/hr IV Q24H [facility] Last Admin: 09/14/20 18:29 Dose: 100 mls/hr Documented by: Lactated Ringer's (Ringers, Lactated) 1,000 mls @ 125 mls/hr IV ASDIRECTED [facility] Last Admin: 09/15/20 13:03 Dose: 125 mls/hr Documented by: Dextrose/Lactated Ringer's (Dextrose 5%-Lactated Ringers) 1,000 mls @ 125 mls/hr IV ASDIRECTED [facility] Last Admin: 09/14/20 14:07 Dose: 125 mls/hr Documented by: Potassium Chloride 40 meq/ (Premix) 100 mls @ 25 mls/hr IV ONETIME ONE Stop: 09/15/20 16:59 Last Admin: 09/15/20 13:00 Dose: 25 mls/hr Documented by: Insulin Aspart (Insulin Aspart 100 Units/Ml 3 Ml Pen) 0 unit SUBCUT Q6H [facility]; Protocol Last Admin: 09/15/20 12:17 Dose: Not Given Documented by: Insulin Glargine (Insulin Glargine,Human Rec. Analog 100 Units/Ml 3 Ml Pen) 15 units SUBCUT BEDTIME [facility] Last Admin: 09/14/20 21:50 Dose: 15 units Documented by: Metoclopramide HCl (Metoclopramide 10 Mg/2 Ml Sdv) 5 mg IVPUSH Q6H [facility] Last Admin: 09/15/20 08:38 Dose: 5 mg Documented by: Morphine Sulfate (Morphine 2 Mg/Ml Syringe) 2 mg IVPUSH Q4H PRN PRN Reason: Pain Last Admin: 09/15/20 08:37 Dose: 2 mg Documented by: Ondansetron HCl (Ondansetron 4 Mg/2 Ml Sdv) 4 mg IVPUSH Q4H PRN PRN Reason: Nausea/Vomiting Last Admin: 09/15/20 11:07 Dose: 4 mg Documented by: Sucralfate (Sucralfate Suspension 1 Gm/10 Ml Cup) 1 gm PO Q6H [facility] Last Admin: 09/15/20 12:25 Dose: 1 gm Documented by: Discontinued Medications Al Hydroxide/Mg Hydroxide 15 (ml/ Lidocaine HCl 5 ml) 0 ml PO ONETIME ONE Stop: 09/13/20 15:57 Last Admin: 09/13/20 16:07 Dose: 20 each Documented by: Dextrose/Water (50% Dextrose In Water 50 Ml Syringe) 50 ml IVPUSH ASDIRECTED PRN PRN Reason: Hypoglycemia Dextrose/Water (50% Dextrose In Water 50 Ml Syringe) 50 ml IVPUSH ASDIRECTED PRN PRN Reason: Hypoglycemia Diphenhydramine HCl (Diphenhydramine 50 Mg/Ml Sdv) 50 mg IVPUSH ONETIME ONE Stop: 09/13/20 12:54 Last Admin: 09/13/20 13:00 Dose: 50 mg Documented by: Fentanyl (Fentanyl 100 Mcg/2 Ml Sdv) Confirm Administered Dose 100 mcg .ROUTE .STK-MED ONE Stop: 09/15/20 06:59 Glucagon (Glucagon,Human Recombinant 1 Mg Vial) 1 mg IM ASDIRECTED PRN PRN Reason: Hypoglycemia Glucagon (Glucagon,Human Recombinant 1 Mg Vial) 1 mg IM ASDIRECTED PRN PRN Reason: Hypoglycemia Haloperidol Lactate (Haloperidol Lactate 5 Mg/Ml Sdv) 1 mg IM ONETIME ONE Stop: 09/13/20 17:42 Last Admin: 09/13/20 19:13 Dose: Not Given Documented by: Haloperidol Lactate (Haloperidol Lactate 5 Mg/Ml Sdv) 2 mg IM ONETIME ONE Stop: 09/13/20 22:37 Last Admin: 09/13/20 22:53 Dose: 2 mg Documented by: Sodium Chloride (Normal Saline) 1,000 mls @ 999 mls/hr IV STAT ONE Stop: 09/13/20 13:18 Last Admin: 09/13/20 12:58 Dose: 999 mls/hr Documented by: Sodium Chloride (Normal Saline) 1,000 mls @ 999 mls/hr IV STAT ONE Stop: 09/13/20 15:27 Last Admin: 09/13/20 14:46 Dose: 999 mls/hr Documented by: Pantoprazole Sodium 80 mg/ (Sodium Chloride) 20 mls @ 420 mls/hr IVPUSH ONETIME ONE Stop: 09/13/20 14:34 Last Admin: 09/13/20 14:50 Dose: 420 mls/hr Documented by: Pantoprazole Sodium 40 mg/ (Sodium Chloride) 10 mls @ 300 mls/hr IV Q24H [facility] Sodium Chloride (Normal Saline) 1,000 mls @ 125 mls/hr IV ASDIRECTED [facility] Last Admin: 09/13/20 17:39 Dose: 125 mls/hr Documented by: Potassium Chloride 40 meq/ (Premix) 100 mls @ 25 mls/hr IV ONETIME ONE Stop: 09/14/20 12:59 Last Admin: 09/14/20 09:06 Dose: 25 mls/hr Documented by: Magnesium Sulfate 2 gm/ Premix 50 mls @ 12.5 mls/hr IV ONETIME ONE Stop: 09/15/20 11:37 Last Admin: 09/15/20 08:37 Dose: 12.5 mls/hr Documented by: Potassium Chloride 20 meq/ (Premix) 50 mls @ 25 mls/hr IV ONETIME ONE Stop: 09/15/20 09:38 Last Admin: 09/15/20 08:51 Dose: Not Given Documented by: Potassium Chloride 40 meq/ (Premix) 100 mls @ 25 mls/hr IV ONETIME ONE Stop: 09/15/20 11:38 Last Admin: 09/15/20 13:05 Dose: Not Given Documented by: Insulin Aspart (Insulin Aspart 100 Units/Ml 3 Ml Pen) 0 unit SUBCUT TIDAC [facility]; Protocol Last Admin: 09/13/20 17:47 Dose: Not Given Documented by: Insulin Glargine (Insulin Glargine,Human Rec. Analog 100 Units/Ml 3 Ml Pen) 15 units SUBCUT BID [facility] Last Admin: 09/13/20 21:17 Dose: 15 units Documented by: Insulin Human Regular (Insulin Regular, Human 100 Units/Ml 10 Ml Vial) 6 unit SUBCUT ONETIME ONE; Protocol Stop: 09/13/20 13:41 Last Admin: 09/13/20 13:56 Dose: 6 units Documented by: Ketorolac Tromethamine (Ketorolac 15 Mg/Ml Sdv) 15 mg IVPUSH NOW STA Stop: 09/13/20 12:54 Last Admin: 09/13/20 13:00 Dose: 15 mg Documented by: Lidocaine HCl (Lidocaine 1% 5 Ml Sdv) Confirm Administered Dose 5 ml .ROUTE .STK-MED ONE Stop: 09/15/20 06:59 Lorazepam (Lorazepam 2 Mg/Ml Sdv) 1 mg IVPUSH ONETIME ONE Stop: 09/13/20 17:48 Last Admin: 09/13/20 19:13 Dose: Not Given Documented by: Metoclopramide HCl (Metoclopramide 10 Mg/2 Ml Sdv) 10 mg IV ONETIME ONE Stop: 09/13/20 14:28 Last Admin: 09/13/20 14:45 Dose: 10 mg Documented by: Metoclopramide HCl (Metoclopramide 10 Mg/2 Ml Sdv) 5 mg IVPUSH Q6H [facility] Last Admin: 09/13/20 18:16 Dose: Not Given Documented by: Ondansetron HCl (Ondansetron 4 Mg/2 Ml Sdv) 4 mg IVPUSH ONETIME ONE Stop: 09/13/20 12:19 Last Admin: 09/13/20 12:59 Dose: 4 mg Documented by: Ondansetron HCl (Ondansetron 4 Mg/2 Ml Sdv) 4 mg IVPUSH Q6H PRN PRN Reason: Nausea/Vomiting Ondansetron HCl (Ondansetron 4 Mg/2 Ml Sdv) 4 mg IVPUSH Q6H PRN PRN Reason: Nausea/Vomiting Ondansetron HCl (Ondansetron 4 Mg/2 Ml Sdv) Confirm Administered Dose 4 mg .ROUTE .STK-MED ONE Stop: 09/15/20 07:53 Propofol (Propofol 200 Mg/20 Ml Sdv) Confirm Administered Dose 200 mg .ROUTE .STK-MED ONE Stop: 09/15/20 06:59 Sucralfate (Sucralfate Suspension 1 Gm/10 Ml Cup) 1 gm PO Q6H [facility] Last Admin: 09/14/20 00:51 Dose: Not Given Documented by: - Exam Urinary Catheter Total Time: 0Days 0Hours General: Alert Lungs: Clear to Auscultation, Normal Respiratory Effort Cardiovascular: Regular Rate, Regular Rhythm GI/Abdominal Exam: Soft, Tender (generalized) Extremities: No Pedal Edema - Patient Data Lab Results Last 24 hrs: Laboratory Results - last 24 hr 09/14/20 09/14/20 09/14/20 Range/Units 17:35 18:51 21:04 WBC (4.0-11.0) K/uL RBC (4.50-5.90) M/uL Hgb 9.2 L (13.0-17.0) g/dL Hct 28.4 L (38.0-50.0) % MCV (80.0-98.0) fL MCH (27.0-32.0) pg MCHC (31.0-37.0) g/dL RDW Std Deviation (28.0-62.0) fl RDW Coeff of Erika (11.0-15.0) % Plt Count (150-400) K/uL MPV (7.40-12.00) fL Neut % (Auto) (48.0-80.0) % Lymph % (Auto) (16.0-40.0) % Luce % (Auto) (0.0-15.0) % Eos % (Auto) (0.0-7.0) % Baso % (Auto) (0.0-1.5) % Neut # (Auto) (1.4-5.7) K/uL Lymph # (Auto) (0.6-2.4) K/uL Luce # (Auto) (0.0-0.8) K/uL Eos # (Auto) (0.0-0.7) K/uL Baso # (Auto) (0.0-0.1) K/uL Nucleated RBC % /100WBC Nucleated RBCs # K/uL Sodium (136-148) mmol/L Potassium (3.5-5.1) mmol/L Chloride (98-107) mmol/L Carbon Dioxide (21.0-32.0) mmol/L BUN (7.0-18.0) mg/dL Creatinine (0.8-1.3) mg/dL Est Cr Clr Drug Dosing mL/min Estimated GFR (MDRD) ml/min Glucose (74-106) mg/dL POC Glucose 274 H 221 H (70-99) mg/dL Calcium (8.5-10.1) mg/dL Magnesium (1.8-2.4) mg/dL 09/15/20 09/15/20 09/15/20 Range/Units 00:46 06:19 06:32 WBC 6.55 (4.0-11.0) K/uL RBC 3.54 L (4.50-5.90) M/uL Hgb 9.3 L (13.0-17.0) g/dL Hct 28.5 L (38.0-50.0) % MCV 80.5 (80.0-98.0) fL MCH 26.3 L (27.0-32.0) pg MCHC 32.6 (31.0-37.0) g/dL RDW Std Deviation 42.3 (28.0-62.0) fl RDW Coeff of Erika 15 (11.0-15.0) % Plt Count 234 (150-400) K/uL MPV 9.40 (7.40-12.00) fL Neut % (Auto) 70.3 (48.0-80.0) % Lymph % (Auto) 24.6 (16.0-40.0) % Luce % (Auto) 4.9 (0.0-15.0) % Eos % (Auto) 0.0 (0.0-7.0) % Baso % (Auto) 0.2 (0.0-1.5) % Neut # (Auto) 4.6 (1.4-5.7) K/uL Lymph # (Auto) 1.6 (0.6-2.4) K/uL Luce # (Auto) 0.3 (0.0-0.8) K/uL Eos # (Auto) 0.0 (0.0-0.7) K/uL Baso # (Auto) 0.0 (0.0-0.1) K/uL Nucleated RBC % 0.0 /100WBC Nucleated RBCs # 0 K/uL Sodium (136-148) mmol/L Potassium (3.5-5.1) mmol/L Chloride (98-107) mmol/L Carbon Dioxide (21.0-32.0) mmol/L BUN (7.0-18.0) mg/dL Creatinine (0.8-1.3) mg/dL Est Cr Clr Drug Dosing mL/min Estimated GFR (MDRD) ml/min Glucose (74-106) mg/dL POC Glucose 269 H 180 H (70-99) mg/dL Calcium (8.5-10.1) mg/dL Magnesium (1.8-2.4) mg/dL 09/15/20 09/15/20 Range/Units 06:32 11:07 WBC (4.0-11.0) K/uL RBC (4.50-5.90) M/uL Hgb (13.0-17.0) g/dL Hct (38.0-50.0) % MCV (80.0-98.0) fL MCH (27.0-32.0) pg MCHC (31.0-37.0) g/dL RDW Std Deviation (28.0-62.0) fl RDW Coeff of Erika (11.0-15.0) % Plt Count (150-400) K/uL MPV (7.40-12.00) fL Neut % (Auto) (48.0-80.0) % Lymph % (Auto) (16.0-40.0) % Luce % (Auto) (0.0-15.0) % Eos % (Auto) (0.0-7.0) % Baso % (Auto) (0.0-1.5) % Neut # (Auto) (1.4-5.7) K/uL Lymph # (Auto) (0.6-2.4) K/uL Luce # (Auto) (0.0-0.8) K/uL Eos # (Auto) (0.0-0.7) K/uL Baso # (Auto) (0.0-0.1) K/uL Nucleated RBC % /100WBC Nucleated RBCs # K/uL Sodium 144 (136-148) mmol/L Potassium 3.4 L (3.5-5.1) mmol/L Chloride 110 H (98-107) mmol/L Carbon Dioxide 26.6 (21.0-32.0) mmol/L BUN 16 (7.0-18.0) mg/dL Creatinine 1.0 (0.8-1.3) mg/dL Est Cr Clr Drug Dosing 94.86 mL/min Estimated GFR (MDRD) > 60.0 ml/min Glucose 178 H (74-106) mg/dL POC Glucose 138 H (70-99) mg/dL Calcium 8.8 (8.5-10.1) mg/dL Magnesium 1.7 L (1.8-2.4) mg/dL Result Diagrams: 09/15/20 06:32 09/15/20 06:32 Sepsis Event Note - Evaluation Sepsis Screening Result: No Definite Risk - Focused Exam Vital Signs: Vital Signs Temp Pulse Resp BP Pulse Ox 09/15/20 12:37 98.9 F 99 16 153/96 H 98 09/15/20 11:35 96 149/94 H 96 09/15/20 10:35 97.8 F 98 143/93 H 97 09/15/20 10:05 94 135/89 96 09/15/20 09:35 96 147/89 H 96 09/15/20 09:20 97 156/98 H 95 09/15/20 09:05 98.4 F 94 16 149/96 H 94 L 09/15/20 08:50 98.3 F 94 17 152/96 H 96 09/15/20 08:35 98.3 F 90 16 146/100 H 96 09/15/20 08:13 92 13 156/107 H 96 09/15/20 08:08 91 15 157/106 H 94 L 09/15/20 08:03 91 17 166/112 H 100 09/15/20 07:58 98.6 F 95 15 174/105 H 100 09/15/20 04:03 100.3 F 104 H 16 136/91 H 95 - Problem List & Annotations (1) Gastroenteritis SNOMED Code(s): 81640758 Code(s): K52.9 - NONINFECTIVE GASTROENTERITIS AND COLITIS, UNSPECIFIED Status: Acute Current Visit: No (2) Intractable vomiting SNOMED Code(s): 568697866 Code(s): R11.10 - VOMITING, UNSPECIFIED Status: Acute Current Visit: Yes Qualifiers: Vomiting type: unspecified Nausea presence: with nausea Qualified C ode(s): R11.2 - Nausea with vomiting, unspecified (3) Diabetes type 1, uncontrolled SNOMED Code(s): 43836399, 659072116 Code(s): E10.65 - TYPE 1 DIABETES MELLITUS WITH HYPERGLYCEMIA Status: C hronic Priority: Medium Current Visit: Yes Qualifiers: Glycemic state: with hyperglycemia Qualified Code(s): E10.65 - Type 1 diabetes mellitus with hyperglycemia (4) Abdominal pain SNOMED Code(s): 09309161 Code(s): R10.9 - UNSPECIFIED ABDOMINAL PAIN Status: Acute Current Visit: Yes (5) Anemia SNOMED Code(s): 563584567 Code(s): D64.9 - ANEMIA, UNSPECIFIED Status: Acute Current Visit: Yes (6) Chronic abdominal pain SNOMED Code(s): 984182861 Code(s): R10.9 - UNSPECIFIED ABDOMINAL PAIN; G89.29 - OTHER CHRONIC PAIN Status: Acute Current Visit: Yes (7) Chronic vomiting SNOMED Code(s): 03130777 Code(s): R11.10 - VOMITING, UNSPECIFIED Status: Acute Current Visit: Yes (8) Hyperglycemia SNOMED Code(s): 22751994 Code(s): R73.9 - HYPERGLYCEMIA, UNSPECIFIED Status: Acute Current Visit: Yes (9) Itching SNOMED Code(s): 459699211 Code(s): L29.9 - PRURITUS, UNSPECIFIED Status: Acute Current Visit: Yes (10) Upper GI bleed SNOMED Code(s): 13758043 Code(s): K92.2 - GASTROINTESTINAL HEMORRHAGE, UNSPECIFIED Status: Acute Current Visit: No (11) Coffee ground emesis SNOMED Code(s): 12258777 Code(s): K92.0 - HEMATEMESIS Status: Acute Current Visit: Yes - Problem List Review Problem List Initiated/Reviewed/Updated: Yes - My Orders Last 24 Hours: My Active Orders 09/14/20 18:48 Communication Order [RC] ROUTINE 09/15/20 Breakfast Clear Liquid Diet [DIET] 09/15/20 13:00 Potassium Chloride Riders [KCL in Water 40 MEQ/100 ML] 40 meq Premix Bag 1 bag IV ONETIME - Plan Plan:: Intractable nausea and vomiting- NPO, 125ml/hr D-5 L/R, 40 mg IV Protonix BID, Zofran 4 mg Q4HR PRN. Morphine for pain Diabetes type 1 Sliding scale insulin Q6, accucheck q6, NPO will transition to clear diet pending vomiting/nausea status, Lantus 15 units daily, Reglan 5 mg every 6 hours GI bleed NPO, IV PPI, monitor CBC and vitals for any signs of hemodynamic instability. Neurogenic bladder- Patient has been retaining 1L or more of urine, Clements catheter placed. EGD performed this morning, results noted Inflammation in the fundus, inflammation in distal esophagus. No signs of bleeding. Will transition to clear diet as tolerated. Patient is still complaining of nausea and vomiting.
--- NOTE | 2020-09-15 17:41 | OR ---
SURGEON: YVONNE RICHARDSON MD DATE OF PROCEDURE: 09/13/2020 PREOPERATIVE DIAGNOSIS: Hematemesis. POSTOPERATIVE DIAGNOSES: Esophagitis and gastritis. PROCEDURE PERFORMED: Diagnostic esophagogastroduodenoscopy and biopsy. PRIMARY SURGEON: Yvnone Richardson MD ANESTHESIA: MAC. INSTRUMENT USED: Olympus endoscope. EXTENT OF EXAM: To second portion of duodenum. PREPARATION: Good. LIMITATIONS: None. INDICATIONS FOR EXAMINATION: The patient is a 24-year-old male with poorly controlled type 2 diabetes and gastroparesis who presents with intractable nausea and vomiting. He had an episode of coffee-grounds emesis. The decision was made to proceed with a diagnostic EGD and biopsy. I explained the procedure to the patient, the expected perioperative course, and the risks. He verbalized understanding and wishes to proceed. PROCEDURE IN DETAIL: The patient was brought to the endoscopy suite and placed in a beach chair position. A time-out was completed verifying the patient's name, age, date of , allergies, and procedure to be performed. A bite block was placed in the patient's mouth. Monitored anesthesia care was induced, and a face mask was used to administer oxygen throughout the procedure. After adequate sedation was achieved, a well-lubricated endoscope was placed in the patient's mouth and advanced carefully under direct visualization to the second portion of duodenum. This appeared normal, and a photograph was taken. The scope was then fully withdrawn while examining the color, texture, anatomy, and integrity of mucosa of the upper GI tract. The duodenum appeared normal. The scope was then brought into the stomach, and a photograph was taken of the pylorus as well as the GE junction. At the GE junction and the fundus, the patient was noted to have some inflammation. There was no evidence of ulceration or any stigmata of recent bleeding. The stomach itself was completely empty. A biopsy was taken of the gastric antrum to be sent for histologic review and H. pylori testing. The scope was then brought into the distal esophagus. The patient had signs of distal esophagitis but no evidence of any ulceration, tears, or recent bleeding. A photograph of this was taken. The Z-line itself appeared normal. The remainder of the esophagus was normal. The scope was removed, and the procedure terminated. The patient tolerated the procedure well, was taken to the PACU in stable condition. ENDOSCOPIC DIAGNOSES: Esophagitis and gastritis. RECOMMENDATIONS: The patient can be transferred back to the floor. His diet can be advanced as tolerated. I would switch him to oral pantoprazole 40 mg daily as well as sucralfate t.i.d. before meals. We will continue to follow patient while he is in the hospital. DAVID WOLFE /[id number]
[2020-09-15] MEDS: cefTRIAXone 1 GM in Premix Bag 1 BAG IV SCH (18:05)
[2020-09-15] MEDS: Insulin Glargine,Human Rec. Analog 100 Units/ML 3 ML Pen SUBCUT SCH (20:17)
[2020-09-15] MEDS ORDERED: Haloperidol Lactate 5 MG/ML SDV IM ONE (20:30)
[2020-09-16] MEDS: Sucralfate Suspension 1 GM/10 ML Cup PO SCH ×4 (00:18→17:59)
[2020-09-16] MEDS: Insulin Aspart 100 Units/ML 3 ML Pen SUBCUT SCH ×4 (00:19→16:58)
[2020-09-16] MEDS: Morphine 2 MG/ML SYRINGE IVPUSH PRN ×4 (01:02→22:00)
[2020-09-16] MEDS: diphenhydrAMINE 50 MG/ML SDV IVPUSH PRN ×3 (01:18→18:09)
[2020-09-16] MEDS: Metoclopramide 10 MG/2 ML SDV IVPUSH SCH ×4 (04:00→21:44)
[2020-09-16] MEDS: Lactated Ringers 1,000 ML IV SCH (05:57)
[2020-09-16] MEDS: Dextrose 5%-Lactated Ringers 1,000 ML IV SCH ×2 (07:01→22:09)
[2020-09-16 07:12] LABS: BLOOD UREA NITROGEN,BUN 16 mg/dL (7.0-18.0); CARBON DIOXIDE,CO2 24.6 mmol/L (21.0-32.0); CHLORIDE,CL 107 mmol/L (98-107); GLUCOSE RANDOM 62 mg/dL (74-106); POTASSIUM,K 3.2 mmol/L (3.5-5.1); SODIUM,NA 141 mmol/L (136-148)
[2020-09-16] MEDS ORDERED: Magnesium Sulfate/Water 2 GM in Premix Bag 1 BAG IV ONE (07:43)
[2020-09-16] MEDS ORDERED: Potassium Chloride Riders 40 MEQ in Premix Bag 1 BAG IV ONE ×2 (07:44→13:00)
--- NOTE | 2020-09-16 09:05 | PCM.SN.2 ---
- Free Text/Narrative Note: Patient had a diagnostic EGD yesterday. This showed some inflammation along the distal esophagus at the GE junction and in the fundus near the insertion of the esophagus likely due to vomiting. Biopsies were taken in the antrum and are currently pending. There was no evidence of bleeding. He continues to have nausea and is reluctant to advance his diet. From my standpoint, I would schedule 40mg pantoprazole q am and sucralfate (if tolerated) TID for the inflammation. He does have gastroparesis and is on scheduled reglan. His poorly controlled diabetes (HgbA1C 11.3) may be contributing to his symptoms. Would consult GI should he have ongoing issues with nausea. US of the RUQ and CT abdomen pelvis show a mildly distended gallbladder with sludge. The radiologist stated on both exams that there are no signs of cholecystitis. LFTs and bilirubin were all normal. The mild distension may be due to his NPO status. However, he did not have a Tyler's sign. I feel it is less likely his symptoms are caused by a biliary etiology. At this point in time, will sign off. If biopsies come back positive for H pylori would treat. Call with any questions or concerns.
[2020-09-16] MEDS: Pantoprazole 40 MG in Sodium Chloride 0.9% 10 ML IV SCH ×2 (09:23→21:44)
[2020-09-16] MEDS: Ondansetron 4 MG/2 ML SDV IVPUSH PRN ×2 (12:42→18:09)
[2020-09-16] MEDS ORDERED: LORazepam 2 MG/ML SDV IVPUSH ONE (13:30)
[2020-09-16] MEDS ORDERED: Haloperidol Lactate 5 MG/ML SDV IM ONE (13:30)
--- NOTE | 2020-09-16 13:31 | PCM.PN ---
- General Info Date of Service: 09/16/20 Subjective Update: Patient states continued nausea and vomiting. Patient has not been able to consume anything orally including ice chips or water without becoming nauseous and vomiting. Patient advised nausea vomiting continues the neck step would be insertion of feeding tube. Patient denies fever, chills. States generalized abdominal pain. - Review of Systems General: Denies: Fever, Chills Pulmonary: Denies: Shortness of Breath Cardiovascular: Denies: Chest Pain, Edema Gastrointestinal: Reports: Abdominal Pain, Decreased Appetite, Nausea, Vomiting Neurological: Denies: Confusion, Dizziness, Headache - Patient Data Vitals - Most Recent: Last Vital Signs Temp 98.8 F 09/16/20 07:08 Pulse 98 09/16/20 07:08 Resp 18 09/16/20 07:08 BP 134/84 09/16/20 07:08 Pulse Ox 98 09/16/20 07:08 Weight - Most Recent: 127 lb 9.6 oz I&O - Last 24 Hours: Intake & Output 09/15/20 09/16/20 09/16/20 22:59 06:59 14:59 Intake Total 1938 1084 Output Total 1100 1600 Balance 838 -516 Lab Results Last 24 Hours: Laboratory Results - last 24 hr 09/15/20 09/15/20 09/16/20 Range/Units 17:01 20:16 00:16 WBC (4.0-11.0) K/uL RBC (4.50-5.90) M/uL Hgb (13.0-17.0) g/dL Hct (38.0-50.0) % MCV (80.0-98.0) fL MCH (27.0-32.0) pg MCHC (31.0-37.0) g/dL RDW Std Deviation (28.0-62.0) fl RDW Coeff of Erika (11.0-15.0) % Plt Count (150-400) K/uL MPV (7.40-12.00) fL Neut % (Auto) (48.0-80.0) % Lymph % (Auto) (16.0-40.0) % [place] % (Auto) (0.0-15.0) % Eos % (Auto) (0.0-7.0) % Baso % (Auto) (0.0-1.5) % Neut # (Auto) (1.4-5.7) K/uL Lymph # (Auto) (0.6-2.4) K/uL [place] # (Auto) (0.0-0.8) K/uL Eos # (Auto) (0.0-0.7) K/uL Baso # (Auto) (0.0-0.1) K/uL Nucleated RBC % /100WBC Nucleated RBCs # K/uL Sodium (136-148) mmol/L Potassium (3.5-5.1) mmol/L Chloride (98-107) mmol/L Carbon Dioxide (21.0-32.0) mmol/L BUN (7.0-18.0) mg/dL Creatinine (0.8-1.3) mg/dL Est Cr Clr Drug Dosing mL/min Estimated GFR (MDRD) ml/min Glucose (74-106) mg/dL POC Glucose 155 H 201 H 130 H (70-99) mg/dL Calcium (8.5-10.1) mg/dL Phosphorus (2.6-4.7) mg/dL Magnesium (1.8-2.4) mg/dL 09/16/20 09/16/20 09/16/20 Range/Units 06:15 06:15 06:54 WBC 6.07 (4.0-11.0) K/uL RBC 3.80 L (4.50-5.90) M/uL Hgb 9.8 L (13.0-17.0) g/dL Hct 29.9 L (38.0-50.0) % MCV 78.7 L (80.0-98.0) fL MCH 25.8 L (27.0-32.0) pg MCHC 32.8 (31.0-37.0) g/dL RDW Std Deviation 40.4 (28.0-62.0) fl RDW Coeff of Erika 14 (11.0-15.0) % Plt Count 247 (150-400) K/uL MPV 9.30 (7.40-12.00) fL Neut % (Auto) 66.0 (48.0-80.0) % Lymph % (Auto) 26.7 (16.0-40.0) % [place] % (Auto) 6.3 (0.0-15.0) % Eos % (Auto) 0.7 (0.0-7.0) % Baso % (Auto) 0.3 (0.0-1.5) % Neut # (Auto) 4.0 (1.4-5.7) K/uL Lymph # (Auto) 1.6 (0.6-2.4) K/uL [place] # (Auto) 0.4 (0.0-0.8) K/uL Eos # (Auto) 0.0 (0.0-0.7) K/uL Baso # (Auto) 0.0 (0.0-0.1) K/uL Nucleated RBC % 0.0 /100WBC Nucleated RBCs # 0 K/uL Sodium 141 (136-148) mmol/L Potassium 3.2 L (3.5-5.1) mmol/L Chloride 107 (98-107) mmol/L Carbon Dioxide 24.6 (21.0-32.0) mmol/L BUN 16 (7.0-18.0) mg/dL Creatinine 0.8 (0.8-1.3) mg/dL Est Cr Clr Drug Dosing 118.57 mL/min Estimated GFR (MDRD) > 60.0 ml/min Glucose 62 L (74-106) mg/dL POC Glucose 59 L (70-99) mg/dL Calcium 8.5 (8.5-10.1) mg/dL Phosphorus 3.2 (2.6-4.7) mg/dL Magnesium 1.7 L (1.8-2.4) mg/dL 09/16/20 09/16/20 09/16/20 Range/Units 06:58 07:26 09:18 WBC (4.0-11.0) K/uL RBC (4.50-5.90) M/uL Hgb (13.0-17.0) g/dL Hct (38.0-50.0) % MCV (80.0-98.0) fL MCH (27.0-32.0) pg MCHC (31.0-37.0) g/dL RDW Std Deviation (28.0-62.0) fl RDW Coeff of Erika (11.0-15.0) % Plt Count (150-400) K/uL MPV (7.40-12.00) fL Neut % (Auto) (48.0-80.0) % Lymph % (Auto) (16.0-40.0) % [place] % (Auto) (0.0-15.0) % Eos % (Auto) (0.0-7.0) % Baso % (Auto) (0.0-1.5) % Neut # (Auto) (1.4-5.7) K/uL Lymph # (Auto) (0.6-2.4) K/uL [place] # (Auto) (0.0-0.8) K/uL Eos # (Auto) (0.0-0.7) K/uL Baso # (Auto) (0.0-0.1) K/uL Nucleated RBC % /100WBC Nucleated RBCs # K/uL Sodium (136-148) mmol/L Potassium (3.5-5.1) mmol/L Chloride (98-107) mmol/L Carbon Dioxide (21.0-32.0) mmol/L BUN (7.0-18.0) mg/dL Creatinine (0.8-1.3) mg/dL Est Cr Clr Drug Dosing mL/min Estimated GFR (MDRD) ml/min Glucose (74-106) mg/dL POC Glucose 62 L 69 L 94 (70-99) mg/dL Calcium (8.5-10.1) mg/dL Phosphorus (2.6-4.7) mg/dL Magnesium (1.8-2.4) mg/dL 09/16/20 Range/Units 12:30 WBC (4.0-11.0) K/uL RBC (4.50-5.90) M/uL Hgb (13.0-17.0) g/dL Hct (38.0-50.0) % MCV (80.0-98.0) fL MCH (27.0-32.0) pg MCHC (31.0-37.0) g/dL RDW Std Deviation (28.0-62.0) fl RDW Coeff of Erika (11.0-15.0) % Plt Count (150-400) K/uL MPV (7.40-12.00) fL Neut % (Auto) (48.0-80.0) % Lymph % (Auto) (16.0-40.0) % [place] % (Auto) (0.0-15.0) % Eos % (Auto) (0.0-7.0) % Baso % (Auto) (0.0-1.5) % Neut # (Auto) (1.4-5.7) K/uL Lymph # (Auto) (0.6-2.4) K/uL [place] # (Auto) (0.0-0.8) K/uL Eos # (Auto) (0.0-0.7) K/uL Baso # (Auto) (0.0-0.1) K/uL Nucleated RBC % /100WBC Nucleated RBCs # K/uL Sodium (136-148) mmol/L Potassium (3.5-5.1) mmol/L Chloride (98-107) mmol/L Carbon Dioxide (21.0-32.0) mmol/L BUN (7.0-18.0) mg/dL Creatinine (0.8-1.3) mg/dL Est Cr Clr Drug Dosing mL/min Estimated GFR (MDRD) ml/min Glucose (74-106) mg/dL POC Glucose 66 L (70-99) mg/dL Calcium (8.5-10.1) mg/dL Phosphorus (2.6-4.7) mg/dL Magnesium (1.8-2.4) mg/dL Med Orders - Current: Current Medications Dextrose/Water (50% Dextrose In Water 50 Ml Syringe) 50 ml IVPUSH ASDIRECTED PRN PRN Reason: Hypoglycemia Diphenhydramine HCl (Diphenhydramine 50 Mg/Ml Sdv) 25 mg IVPUSH Q6H PRN PRN Reason: Itching Last Admin: 09/16/20 09:30 Dose: 25 mg Documented by: Glucagon (Glucagon,Human Recombinant 1 Mg Vial) 1 mg IM ASDIRECTED PRN PRN Reason: Hypoglycemia Haloperidol Lactate (Haloperidol Lactate 5 Mg/Ml Sdv) 2 mg IM ONETIME ONE Stop: 09/16/20 13:31 Pantoprazole Sodium 40 mg/ (Sodium Chloride) 10 mls @ 300 mls/hr IV Q12HR [facility] Last Admin: 09/16/20 09:23 Dose: 300 mls/hr Documented by: Ceftriaxone Sodium/Dextrose 1 (gm/ Premix) 50 mls @ 100 mls/hr IV Q24H [facility] Last Admin: 09/15/20 18:05 Dose: 100 mls/hr Documented by: Lactated Ringer's (Ringers, Lactated) 1,000 mls @ 125 mls/hr IV ASDIRECTED [facility] Last Infusion: 09/16/20 07:24 Dose: 0 mls/hr Documented by: Dextrose/Lactated Ringer's (Dextrose 5%-Lactated Ringers) 1,000 mls @ 125 mls/hr IV ASDIRECTED [facility] Last Admin: 09/16/20 07:01 Dose: 125 mls/hr Documented by: Potassium Chloride 40 meq/ (Premix) 100 mls @ 25 mls/hr IV ONETIME ONE Stop: 09/16/20 16:59 Last Admin: 09/16/20 12:32 Dose: 25 mls/hr Documented by: Insulin Aspart (Insulin Aspart 100 Units/Ml 3 Ml Pen) 0 unit SUBCUT Q6H [facility]; Protocol Last Admin: 09/16/20 12:33 Dose: Not Given Documented by: Insulin Glargine (Insulin Glargine,Human Rec. Analog 100 Units/Ml 3 Ml Pen) 15 units SUBCUT BEDTIME [facility] Last Admin: 09/15/20 20:17 Dose: 15 units Documented by: Lorazepam (Lorazepam 2 Mg/Ml Sdv) 0.5 mg IVPUSH ONETIME ONE Stop: 09/16/20 13:31 Metoclopramide HCl (Metoclopramide 10 Mg/2 Ml Sdv) 5 mg IVPUSH Q6H [facility] Last Admin: 09/16/20 09:20 Dose: 5 mg Documented by: Morphine Sulfate (Morphine 2 Mg/Ml Syringe) 2 mg IVPUSH Q4H PRN PRN Reason: Pain Last Admin: 09/16/20 12:43 Dose: 2 mg Documented by: Ondansetron HCl (Ondansetron 4 Mg/2 Ml Sdv) 4 mg IVPUSH Q4H PRN PRN Reason: Nausea/Vomiting Last Admin: 09/16/20 12:42 Dose: 4 mg Documented by: Sucralfate (Sucralfate Suspension 1 Gm/10 Ml Cup) 1 gm PO Q6H [facility] Last Admin: 09/16/20 12:42 Dose: 1 gm Documented by: Discontinued Medications Al Hydroxide/Mg Hydroxide 15 (ml/ Lidocaine HCl 5 ml) 0 ml PO ONETIME ONE Stop: 09/13/20 15:57 Last Admin: 09/13/20 16:07 Dose: 20 each Documented by: Dextrose/Water (50% Dextrose In Water 50 Ml Syringe) 50 ml IVPUSH ASDIRECTED PRN PRN Reason: Hypoglycemia Dextrose/Water (50% Dextrose In Water 50 Ml Syringe) 50 ml IVPUSH ASDIRECTED PRN PRN Reason: Hypoglycemia Diphenhydramine HCl (Diphenhydramine 50 Mg/Ml Sdv) 50 mg IVPUSH ONETIME ONE Stop: 09/13/20 12:54 Last Admin: 09/13/20 13:00 Dose: 50 mg Documented by: Fentanyl (Fentanyl 100 Mcg/2 Ml Sdv) Confirm Administered Dose 100 mcg .ROUTE .STK-MED ONE Stop: 09/15/20 06:59 Glucagon (Glucagon,Human Recombinant 1 Mg Vial) 1 mg IM ASDIRECTED PRN PRN Reason: Hypoglycemia Glucagon (Glucagon,Human Recombinant 1 Mg Vial) 1 mg IM ASDIRECTED PRN PRN Reason: Hypoglycemia Haloperidol Lactate (Haloperidol Lactate 5 Mg/Ml Sdv) 1 mg IM ONETIME ONE Stop: 09/13/20 17:42 Last Admin: 09/13/20 19:13 Dose: Not Given Documented by: Haloperidol Lactate (Haloperidol Lactate 5 Mg/Ml Sdv) 2 mg IM ONETIME ONE Stop: 09/13/20 22:37 Last Admin: 09/13/20 22:53 Dose: 2 mg Documented by: Haloperidol Lactate (Haloperidol Lactate 5 Mg/Ml Sdv) 1 mg IM ONETIME ONE Stop: 09/15/20 20:31 Last Admin: 09/15/20 21:42 Dose: 1 mg Documented by: Sodium Chloride (Normal Saline) 1,000 mls @ 999 mls/hr IV STAT ONE Stop: 09/13/20 13:18 Last Admin: 09/13/20 12:58 Dose: 999 mls/hr Documented by: Sodium Chloride (Normal Saline) 1,000 mls @ 999 mls/hr IV STAT ONE Stop: 09/13/20 15:27 Last Admin: 09/13/20 14:46 Dose: 999 mls/hr Documented by: Pantoprazole Sodium 80 mg/ (Sodium Chloride) 20 mls @ 420 mls/hr IVPUSH ONETIME ONE Stop: 09/13/20 14:34 Last Admin: 09/13/20 14:50 Dose: 420 mls/hr Documented by: Pantoprazole Sodium 40 mg/ (Sodium Chloride) 10 mls @ 300 mls/hr IV Q24H [facility] Sodium Chloride (Normal Saline) 1,000 mls @ 125 mls/hr IV ASDIRECTED [facility] Last Admin: 09/13/20 17:39 Dose: 125 mls/hr Documented by: Potassium Chloride 40 meq/ (Premix) 100 mls @ 25 mls/hr IV ONETIME ONE Stop: 09/14/20 12:59 Last Admin: 09/14/20 09:06 Dose: 25 mls/hr Documented by: Magnesium Sulfate 2 gm/ Premix 50 mls @ 12.5 mls/hr IV ONETIME ONE Stop: 09/15/20 11:37 Last Admin: 09/15/20 08:37 Dose: 12.5 mls/hr Documented by: Potassium Chloride 20 meq/ (Premix) 50 mls @ 25 mls/hr IV ONETIME ONE Stop: 09/15/20 09:38 Last Admin: 09/15/20 08:51 Dose: Not Given Documented by: Potassium Chloride 40 meq/ (Premix) 100 mls @ 25 mls/hr IV ONETIME ONE Stop: 09/15/20 11:38 Last Admin: 09/15/20 13:05 Dose: Not Given Documented by: Potassium Chloride 40 meq/ (Premix) 100 mls @ 25 mls/hr IV ONETIME ONE Stop: 09/15/20 16:59 Last Admin: 09/15/20 13:00 Dose: 25 mls/hr Documented by: Magnesium Sulfate 2 gm/ Premix 50 mls @ 12.5 mls/hr IV ONETIME ONE Stop: 09/16/20 11:42 Last Admin: 09/16/20 09:20 Dose: 12.5 mls/hr Documented by: Potassium Chloride 40 meq/ (Premix) 100 mls @ 25 mls/hr IV ONETIME ONE Stop: 09/16/20 11:43 Last Admin: 09/16/20 12:46 Dose: Not Given Documented by: Insulin Aspart (Insulin Aspart 100 Units/Ml 3 Ml Pen) 0 unit SUBCUT TIDAC [facility]; Protocol Last Admin: 09/13/20 17:47 Dose: Not Given Documented by: Insulin Glargine (Insulin Glargine,Human Rec. Analog 100 Units/Ml 3 Ml Pen) 15 units SUBCUT BID [facility] Last Admin: 09/13/20 21:17 Dose: 15 units Documented by: Insulin Human Regular (Insulin Regular, Human 100 Units/Ml 10 Ml Vial) 6 unit SUBCUT ONETIME ONE; Protocol Stop: 09/13/20 13:41 Last Admin: 09/13/20 13:56 Dose: 6 units Documented by: Ketorolac Tromethamine (Ketorolac 15 Mg/Ml Sdv) 15 mg IVPUSH NOW STA Stop: 09/13/20 12:54 Last Admin: 09/13/20 13:00 Dose: 15 mg Documented by: Lidocaine HCl (Lidocaine 1% 5 Ml Sdv) Confirm Administered Dose 5 ml .ROUTE .STK-MED ONE Stop: 09/15/20 06:59 Lorazepam (Lorazepam 2 Mg/Ml Sdv) 1 mg IVPUSH ONETIME ONE Stop: 09/13/20 17:48 Last Admin: 09/13/20 19:13 Dose: Not Given Documented by: Metoclopramide HCl (Metoclopramide 10 Mg/2 Ml Sdv) 10 mg IV ONETIME ONE Stop: 09/13/20 14:28 Last Admin: 09/13/20 14:45 Dose: 10 mg Documented by: Metoclopramide HCl (Metoclopramide 10 Mg/2 Ml Sdv) 5 mg IVPUSH Q6H [facility] Last Admin: 09/13/20 18:16 Dose: Not Given Documented by: Ondansetron HCl (Ondansetron 4 Mg/2 Ml Sdv) 4 mg IVPUSH ONETIME ONE Stop: 09/13/20 12:19 Last Admin: 09/13/20 12:59 Dose: 4 mg Documented by: Ondansetron HCl (Ondansetron 4 Mg/2 Ml Sdv) 4 mg IVPUSH Q6H PRN PRN Reason: Nausea/Vomiting Ondansetron HCl (Ondansetron 4 Mg/2 Ml Sdv) 4 mg IVPUSH Q6H PRN PRN Reason: Nausea/Vomiting Ondansetron HCl (Ondansetron 4 Mg/2 Ml Sdv) Confirm Administered Dose 4 mg .ROUTE .STK-MED ONE Stop: 09/15/20 07:53 Propofol (Propofol 200 Mg/20 Ml Sdv) Confirm Administered Dose 200 mg .ROUTE .STK-MED ONE Stop: 09/15/20 06:59 Sucralfate (Sucralfate Suspension 1 Gm/10 Ml Cup) 1 gm PO Q6H [facility] Last Admin: 09/14/20 00:51 Dose: Not Given Documented by: - Exam Urinary Catheter Total Time: 1Days 5Hours General: Alert Lungs: Clear to Auscultation, Normal Respiratory Effort Cardiovascular: Regular Rate, Regular Rhythm GI/Abdominal Exam: Soft, Tender (generalized). No: Distended Extremities: No Pedal Edema Psy/Mental Status: Alert - Patient Data Lab Results Last 24 hrs: Laboratory Results - last 24 hr 09/15/20 09/15/20 09/16/20 Range/Units 17:01 20:16 00:16 WBC (4.0-11.0) K/uL RBC (4.50-5.90) M/uL Hgb (13.0-17.0) g/dL Hct (38.0-50.0) % MCV (80.0-98.0) fL MCH (27.0-32.0) pg MCHC (31.0-37.0) g/dL RDW Std Deviation (28.0-62.0) fl RDW Coeff of Erika (11.0-15.0) % Plt Count (150-400) K/uL MPV (7.40-12.00) fL Neut % (Auto) (48.0-80.0) % Lymph % (Auto) (16.0-40.0) % [place] % (Auto) (0.0-15.0) % Eos % (Auto) (0.0-7.0) % Baso % (Auto) (0.0-1.5) % Neut # (Auto) (1.4-5.7) K/uL Lymph # (Auto) (0.6-2.4) K/uL [place] # (Auto) (0.0-0.8) K/uL Eos # (Auto) (0.0-0.7) K/uL Baso # (Auto) (0.0-0.1) K/uL Nucleated RBC % /100WBC Nucleated RBCs # K/uL Sodium (136-148) mmol/L Potassium (3.5-5.1) mmol/L Chloride (98-107) mmol/L Carbon Dioxide (21.0-32.0) mmol/L BUN (7.0-18.0) mg/dL Creatinine (0.8-1.3) mg/dL Est Cr Clr Drug Dosing mL/min Estimated GFR (MDRD) ml/min Glucose (74-106) mg/dL POC Glucose 155 H 201 H 130 H (70-99) mg/dL Calcium (8.5-10.1) mg/dL Phosphorus (2.6-4.7) mg/dL Magnesium (1.8-2.4) mg/dL 09/16/20 09/16/20 09/16/20 Range/Units 06:15 06:15 06:54 WBC 6.07 (4.0-11.0) K/uL RBC 3.80 L (4.50-5.90) M/uL Hgb 9.8 L (13.0-17.0) g/dL Hct 29.9 L (38.0-50.0) % MCV 78.7 L (80.0-98.0) fL MCH 25.8 L (27.0-32.0) pg MCHC 32.8 (31.0-37.0) g/dL RDW Std Deviation 40.4 (28.0-62.0) fl RDW Coeff of Erika 14 (11.0-15.0) % Plt Count 247 (150-400) K/uL MPV 9.30 (7.40-12.00) fL Neut % (Auto) 66.0 (48.0-80.0) % Lymph % (Auto) 26.7 (16.0-40.0) % [place] % (Auto) 6.3 (0.0-15.0) % Eos % (Auto) 0.7 (0.0-7.0) % Baso % (Auto) 0.3 (0.0-1.5) % Neut # (Auto) 4.0 (1.4-5.7) K/uL Lymph # (Auto) 1.6 (0.6-2.4) K/uL [place] # (Auto) 0.4 (0.0-0.8) K/uL Eos # (Auto) 0.0 (0.0-0.7) K/uL Baso # (Auto) 0.0 (0.0-0.1) K/uL Nucleated RBC % 0.0 /100WBC Nucleated RBCs # 0 K/uL Sodium 141 (136-148) mmol/L Potassium 3.2 L (3.5-5.1) mmol/L Chloride 107 (98-107) mmol/L Carbon Dioxide 24.6 (21.0-32.0) mmol/L BUN 16 (7.0-18.0) mg/dL Creatinine 0.8 (0.8-1.3) mg/dL Est Cr Clr Drug Dosing 118.57 mL/min Estimated GFR (MDRD) > 60.0 ml/min Glucose 62 L (74-106) mg/dL POC Glucose 59 L (70-99) mg/dL Calcium 8.5 (8.5-10.1) mg/dL Phosphorus 3.2 (2.6-4.7) mg/dL Magnesium 1.7 L (1.8-2.4) mg/dL 09/16/20 09/16/20 09/16/20 Range/Units 06:58 07:26 09:18 WBC (4.0-11.0) K/uL RBC (4.50-5.90) M/uL Hgb (13.0-17.0) g/dL Hct (38.0-50.0) % MCV (80.0-98.0) fL MCH (27.0-32.0) pg MCHC (31.0-37.0) g/dL RDW Std Deviation (28.0-62.0) fl RDW Coeff of Erika (11.0-15.0) % Plt Count (150-400) K/uL MPV (7.40-12.00) fL Neut % (Auto) (48.0-80.0) % Lymph % (Auto) (16.0-40.0) % [place] % (Auto) (0.0-15.0) % Eos % (Auto) (0.0-7.0) % Baso % (Auto) (0.0-1.5) % Neut # (Auto) (1.4-5.7) K/uL Lymph # (Auto) (0.6-2.4) K/uL [place] # (Auto) (0.0-0.8) K/uL Eos # (Auto) (0.0-0.7) K/uL Baso # (Auto) (0.0-0.1) K/uL Nucleated RBC % /100WBC Nucleated RBCs # K/uL Sodium (136-148) mmol/L Potassium (3.5-5.1) mmol/L Chloride (98-107) mmol/L Carbon Dioxide (21.0-32.0) mmol/L BUN (7.0-18.0) mg/dL Creatinine (0.8-1.3) mg/dL Est Cr Clr Drug Dosing mL/min Estimated GFR (MDRD) ml/min Glucose (74-106) mg/dL POC Glucose 62 L 69 L 94 (70-99) mg/dL Calcium (8.5-10.1) mg/dL Phosphorus (2.6-4.7) mg/dL Magnesium (1.8-2.4) mg/dL 09/16/20 Range/Units 12:30 WBC (4.0-11.0) K/uL RBC (4.50-5.90) M/uL Hgb (13.0-17.0) g/dL Hct (38.0-50.0) % MCV (80.0-98.0) fL MCH (27.0-32.0) pg MCHC (31.0-37.0) g/dL RDW Std Deviation (28.0-62.0) fl RDW Coeff of Erika (11.0-15.0) % Plt Count (150-400) K/uL MPV (7.40-12.00) fL Neut % (Auto) (48.0-80.0) % Lymph % (Auto) (16.0-40.0) % [place] % (Auto) (0.0-15.0) % Eos % (Auto) (0.0-7.0) % Baso % (Auto) (0.0-1.5) % Neut # (Auto) (1.4-5.7) K/uL Lymph # (Auto) (0.6-2.4) K/uL [place] # (Auto) (0.0-0.8) K/uL Eos # (Auto) (0.0-0.7) K/uL Baso # (Auto) (0.0-0.1) K/uL Nucleated RBC % /100WBC Nucleated RBCs # K/uL Sodium (136-148) mmol/L Potassium (3.5-5.1) mmol/L Chloride (98-107) mmol/L Carbon Dioxide (21.0-32.0) mmol/L BUN (7.0-18.0) mg/dL Creatinine (0.8-1.3) mg/dL Est Cr Clr Drug Dosing mL/min Estimated GFR (MDRD) ml/min Glucose (74-106) mg/dL POC Glucose 66 L (70-99) mg/dL Calcium (8.5-10.1) mg/dL Phosphorus (2.6-4.7) mg/dL Magnesium (1.8-2.4) mg/dL Result Diagrams: 09/16/20 06:15 09/16/20 06:15 Sepsis Event Note - Evaluation Sepsis Screening Result: No Definite Risk - Focused Exam Vital Signs: Vital Signs Temp Pulse Resp BP Pulse Ox 09/16/20 07:08 98.8 F 98 18 134/84 98 09/16/20 04:07 98.5 F 103 H 18 159/102 H 98 - Problem List & Annotations (1) Gastroenteritis SNOMED Code(s): 90583601 Code(s): K52.9 - NONINFECTIVE GASTROENTERITIS AND COLITIS, UNSPECIFIED Status: Acute Current Visit: No (2) Intractable vomiting SNOMED Code(s): 094587007 Code(s): R11.10 - VOMITING, UNSPECIFIED Status: Acute Current Visit: Yes Qualifiers: Vomiting type: unspecified Nausea presence: with nausea Qualified Code(s): R11.2 - Nausea with vomiting, unspecified (3) Diabetes type 1, uncontrolled SNOMED Code(s): 13559438, 114468650 Code(s): E10.65 - TYPE 1 DIABETES MELLITUS WITH HYPERGLYCEMIA Status: Chronic Priority: Medium Current Visit: Yes Qualifiers: Glycemic state: with hyperglycemia Qualified Code(s): E10.65 - Type 1 diabetes mellitus with hyperglycemia (4) Abdominal pain SNOMED Code(s): 80155730 Code(s): R10.9 - UNSPECIFIED ABDOMINAL PAIN Status: Acute Current Visit: Yes (5) Anemia SNOMED Code(s): 301459633 Code(s): D64.9 - ANEMIA, UNSPECIFIED Status: Acute Current Visit: Yes (6) Chronic abdominal pain SNOMED Code(s): 177426641 Code(s): R10.9 - UNSPECIFIED ABDOMINAL PAIN; G89.29 - OTHER CHRONIC PAIN Status: Acute Current Visit: Yes (7) Chronic vomiting SNOMED Code(s): 13566185 Code(s): R11.10 - VOMITING, UNSPECIFIED Status: Acute Current Visit: Yes (8) Hyperglycemia SNOMED Code(s): 33681168 Code(s): R73.9 - HYPERGLYCEMIA, UNSPECIFIED Status: Acute Current Visit: Yes (9) Itching SNOMED Code(s): 153361742 Code(s): L29.9 - PRURITUS, UNSPECIFIED Status: Acute Current Visit: Yes (10) Upper GI bleed SNOMED Code(s): 12507831 Code(s): K92.2 - GASTROINTESTINAL HEMORRHAGE, UNSPECIFIED Status: Acute Current Visit: No (11) Coffee ground emesis SNOMED Code(s): 08205785 Code(s): K92.0 - HEMATEMESIS Status: Acute Current Visit: Yes - Problem List Review Problem List Initiated/Reviewed/Updated: Yes - My Orders Last 24 Hours: My Active Orders 09/16/20 13:00 Potassium Chloride Riders [KCL in Water 40 MEQ/100 ML] 40 meq Premix Bag 1 bag IV ONETIME 09/16/20 13:30 Haloperidol Lactate [Haldol] 2 mg IM ONETIME ONE LORazepam [Ativan] 0.5 mg IVPUSH ONETIME ONE 09/17/20 05:11 BASIC METABOLIC PANEL,BMP [CHEM] AM CBC WITH AUTO DIFF [HEME] AM MAGNESIUM [CHEM] AM - Plan Plan:: Intractable nausea and vomiting- NPO, 125ml/hr D-5 L/R, 40 mg IV Protonix BID, Zofran 4 mg Q4HR PRN. Morphine for pain. Patient is still not tolerating diet. Will try haldol, ativan together with scheduled benadryl to see if nausea/vomiting resolves. Diabetes type 1 Sliding scale insulin Q6, accucheck q6, NPO will transition to clear diet pending vomiting/nausea status, Lantus 15 units daily, Reglan 5 mg every 6 hours GI bleed IV PPI, monitor CBC and vitals for any signs of hemodynamic instability. Neurogenic bladder- Clements catheter placed. Patient had a diagnostic EGD yesterday which showed inflammation along the distal esophagus, and in the fundus. GI to be consulted if patient continues to have nausea, vomiting. Per surgery, recommendation would be feeding tube if patient remains unable to tolerate clear liquid diet.
[2020-09-16] MEDS: cefTRIAXone 1 GM in Premix Bag 1 BAG IV SCH (17:20)
[2020-09-16] MEDS: Insulin Glargine,Human Rec. Analog 100 Units/ML 3 ML Pen SUBCUT SCH (21:57)
[2020-09-17] MEDS: Sucralfate Suspension 1 GM/10 ML Cup PO SCH ×4 (00:48→18:14)
[2020-09-17] MEDS: Insulin Aspart 100 Units/ML 3 ML Pen SUBCUT SCH ×4 (01:42→17:00)
[2020-09-17] MEDS: diphenhydrAMINE 50 MG/ML SDV IVPUSH PRN ×4 (01:49→22:01)
[2020-09-17] MEDS: Metoclopramide 10 MG/2 ML SDV IVPUSH SCH ×4 (02:01→21:01)
[2020-09-17] MEDS: Ondansetron 4 MG/2 ML SDV IVPUSH PRN ×4 (05:25→22:14)
[2020-09-17] MEDS: Morphine 2 MG/ML SYRINGE IVPUSH PRN ×4 (05:31→22:17)
[2020-09-17 07:03] LABS: BLOOD UREA NITROGEN,BUN 18 mg/dL (7.0-18.0); CARBON DIOXIDE,CO2 26.8 mmol/L (21.0-32.0); CHLORIDE,CL 107 mmol/L (98-107); GLUCOSE RANDOM 122 mg/dL (74-106); POTASSIUM,K 3.5 mmol/L (3.5-5.1); SODIUM,NA 140 mmol/L (136-148)
[2020-09-17] MEDS: Pantoprazole 40 MG in Sodium Chloride 0.9% 10 ML IV SCH ×2 (08:14→21:10)
[2020-09-17] MEDS: Lactated Ringers 1,000 ML IV SCH ×2 (08:15→21:04)
--- NOTE | 2020-09-17 11:23 | PCM.PN ---
- General Info Date of Service: 09/17/20 Admission Dx/Problem (Free Text): Patient states he still having abdominal pain, flank pain bilaterally, nausea, vomiting. Patient states vomiting however has improved since yesterday. Patient also states itching has improved. Patient denies fever, chills. Subjective Update: Patient continues to endorse abdominal pain, stomach pain, nausea and vomiting. He had some jello last night which he states he vomited. This morning he had juice which he threw up. He is requesting his morphine [id number] from nursing for continued pain. I did explain that it would cause constipation. Nausea and retching with ice chips and water. Patient advised the next step would be insertion of feeding tube. Patient denies fever, chills. States generalized abdominal pain. - Review of Systems General: Denies: Fever, Chills HEENT: Reports: No Symptoms Pulmonary: Reports: No Symptoms Cardiovascular: Reports: No Symptoms Gastrointestinal: Reports: Abdominal Pain, Nausea, Vomiting Genitourinary: Reports: Retention Musculoskeletal: Reports: No Symptoms Skin: Reports: No Symptoms Neurological: Reports: No Symptoms - Patient Data Vitals - Most Recent: Last Vital Signs Temp 97.1 F 09/17/20 09:00 Pulse 94 09/17/20 09:00 Resp 16 09/17/20 09:00 BP 138/94 H 09/17/20 09:00 Pulse Ox 94 L 09/17/20 09:00 Weight - Most Recent: 127 lb 9.6 oz I&O - Last 24 Hours: Intake & Output 09/16/20 09/17/20 09/17/20 22:59 06:59 14:59 Intake Total 783 818 Output Total 700 900 Balance 83 -82 Lab Results Last 24 Hours: Laboratory Results - last 24 hr 09/16/20 09/16/20 09/16/20 Range/Units 12:30 16:49 21:43 WBC (4.0-11.0) K/uL RBC (4.50-5.90) M/uL Hgb (13.0-17.0) g/dL Hct (38.0-50.0) % MCV (80.0-98.0) fL MCH (27.0-32.0) pg MCHC (31.0-37.0) g/dL RDW Std Deviation (28.0-62.0) fl RDW Coeff of Erika (11.0-15.0) % Plt Count (150-400) K/uL MPV (7.40-12.00) fL Neut % (Auto) (48.0-80.0) % Lymph % (Auto) (16.0-40.0) % [place] % (Auto) (0.0-15.0) % Eos % (Auto) (0.0-7.0) % Baso % (Auto) (0.0-1.5) % Neut # (Auto) (1.4-5.7) K/uL Lymph # (Auto) (0.6-2.4) K/uL [place] # (Auto) (0.0-0.8) K/uL Eos # (Auto) (0.0-0.7) K/uL Baso # (Auto) (0.0-0.1) K/uL Nucleated RBC % /100WBC Nucleated RBCs # K/uL Sodium (136-148) mmol/L Potassium (3.5-5.1) mmol/L Chloride (98-107) mmol/L Carbon Dioxide (21.0-32.0) mmol/L BUN (7.0-18.0) mg/dL Creatinine (0.8-1.3) mg/dL Est Cr Clr Drug Dosing mL/min Estimated GFR (MDRD) ml/min Glucose (74-106) mg/dL POC Glucose 66 L 91 178 H (70-99) mg/dL Calcium (8.5-10.1) mg/dL Magnesium (1.8-2.4) mg/dL 09/17/20 09/17/20 09/17/20 Range/Units 00:31 01:39 05:38 WBC (4.0-11.0) K/uL RBC (4.50-5.90) M/uL Hgb (13.0-17.0) g/dL Hct (38.0-50.0) % MCV (80.0-98.0) fL MCH (27.0-32.0) pg MCHC (31.0-37.0) g/dL RDW Std Deviation (28.0-62.0) fl RDW Coeff of Erika (11.0-15.0) % Plt Count (150-400) K/uL MPV (7.40-12.00) fL Neut % (Auto) (48.0-80.0) % Lymph % (Auto) (16.0-40.0) % [place] % (Auto) (0.0-15.0) % Eos % (Auto) (0.0-7.0) % Baso % (Auto) (0.0-1.5) % Neut # (Auto) (1.4-5.7) K/uL Lymph # (Auto) (0.6-2.4) K/uL [place] # (Auto) (0.0-0.8) K/uL Eos # (Auto) (0.0-0.7) K/uL Baso # (Auto) (0.0-0.1) K/uL Nucleated RBC % /100WBC Nucleated RBCs # K/uL Sodium (136-148) mmol/L Potassium (3.5-5.1) mmol/L Chloride (98-107) mmol/L Carbon Dioxide (21.0-32.0) mmol/L BUN (7.0-18.0) mg/dL Creatinine (0.8-1.3) mg/dL Est Cr Clr Drug Dosing mL/min Estimated GFR (MDRD) ml/min Glucose (74-106) mg/dL POC Glucose 206 H 205 H 132 H (70-99) mg/dL Calcium (8.5-10.1) mg/dL Magnesium (1.8-2.4) mg/dL 09/17/20 09/17/20 Range/Units 06:25 06:25 WBC 4.78 (4.0-11.0) K/uL RBC 3.86 L (4.50-5.90) M/uL Hgb 10.2 L (13.0-17.0) g/dL Hct 30.1 L (38.0-50.0) % MCV 78.0 L (80.0-98.0) fL MCH 26.4 L (27.0-32.0) pg MCHC 33.9 (31.0-37.0) g/dL RDW Std Deviation 40.4 (28.0-62.0) fl RDW Coeff of Erika 14 (11.0-15.0) % Plt Count 241 (150-400) K/uL MPV 9.30 (7.40-12.00) fL Neut % (Auto) 63.8 (48.0-80.0) % Lymph % (Auto) 27.8 (16.0-40.0) % [place] % (Auto) 6.9 (0.0-15.0) % Eos % (Auto) 1.3 (0.0-7.0) % Baso % (Auto) 0.2 (0.0-1.5) % Neut # (Auto) 3.1 (1.4-5.7) K/uL Lymph # (Auto) 1.3 (0.6-2.4) K/uL [place] # (Auto) 0.3 (0.0-0.8) K/uL Eos # (Auto) 0.1 (0.0-0.7) K/uL Baso # (Auto) 0.0 (0.0-0.1) K/uL Nucleated RBC % 0.0 /100WBC Nucleated RBCs # 0 K/uL Sodium 140 (136-148) mmol/L Potassium 3.5 (3.5-5.1) mmol/L Chloride 107 (98-107) mmol/L Carbon Dioxide 26.8 (21.0-32.0) mmol/L BUN 18 (7.0-18.0) mg/dL Creatinine 0.9 (0.8-1.3) mg/dL Est Cr Clr Drug Dosing 105.40 mL/min Estimated GFR (MDRD) > 60.0 ml/min Glucose 122 H (74-106) mg/dL POC Glucose (70-99) mg/dL Calcium 8.2 L (8.5-10.1) mg/dL Magnesium 1.8 (1.8-2.4) mg/dL Med Orders - Current: Current Medications Dextrose/Water (50% Dextrose In Water 50 Ml Syringe) 50 ml IVPUSH ASDIRECTED PRN PRN Reason: Hypoglycemia Diphenhydramine HCl (Diphenhydramine 50 Mg/Ml Sdv) 25 mg IVPUSH Q6H PRN PRN Reason: Itching Last Admin: 09/17/20 08:15 Dose: 25 mg Documented by: Glucagon (Glucagon,Human Recombinant 1 Mg Vial) 1 mg IM ASDIRECTED PRN PRN Reason: Hypoglycemia Pantoprazole Sodium 40 mg/ (Sodium Chloride) 10 mls @ 300 mls/hr IV Q12HR [facility] Last Admin: 09/17/20 08:14 Dose: 300 mls/hr Documented by: Ceftriaxone Sodium/Dextrose 1 (gm/ Premix) 50 mls @ 100 mls/hr IV Q24H [facility] Last Admin: 09/16/20 17:20 Dose: 100 mls/hr Documented by: Lactated Ringer's (Ringers, Lactated) 1,000 mls @ 125 mls/hr IV ASDIRECTED [facility] Last Admin: 09/17/20 08:15 Dose: 125 mls/hr Documented by: Dextrose/Lactated Ringer's (Dextrose 5%-Lactated Ringers) 1,000 mls @ 125 mls/hr IV ASDIRECTED [facility] Last Infusion: 09/17/20 00:33 Dose: 0 mls/hr Documented by: Insulin Aspart (Insulin Aspart 100 Units/Ml 3 Ml Pen) 0 unit SUBCUT Q6H [facility]; Protocol Last Admin: 09/17/20 05:38 Dose: Not Given Documented by: Insulin Glargine (Insulin Glargine,Human Rec. Analog 100 Units/Ml 3 Ml Pen) 15 units SUBCUT BEDTIME [facility] Last Admin: 09/16/20 21:57 Dose: 15 units Documented by: Metoclopramide HCl (Metoclopramide 10 Mg/2 Ml Sdv) 5 mg IVPUSH Q6H [facility] Last Admin: 09/17/20 08:15 Dose: 5 mg Documented by: Morphine Sulfate (Morphine 2 Mg/Ml Syringe) 2 mg IVPUSH Q4H PRN PRN Reason: Pain Last Admin: 09/17/20 05:31 Dose: 2 mg Documented by: Ondansetron HCl (Ondansetron 4 Mg/2 Ml Sdv) 4 mg IVPUSH Q4H PRN PRN Reason: Nausea/Vomiting Last Admin: 09/17/20 05:25 Dose: 4 mg Documented by: Sucralfate (Sucralfate Suspension 1 Gm/10 Ml Cup) 1 gm PO Q6H [facility] Last Admin: 09/17/20 05:45 Dose: 1 gm Documented by: Discontinued Medications Al Hydroxide/Mg Hydroxide 15 (ml/ Lidocaine HCl 5 ml) 0 ml PO ONETIME ONE Stop: 09/13/20 15:57 Last Admin: 09/13/20 16:07 Dose: 20 each Documented by: Dextrose/Water (50% Dextrose In Water 50 Ml Syringe) 50 ml IVPUSH ASDIRECTED PRN PRN Reason: Hypoglycemia Dextrose/Water (50% Dextrose In Water 50 Ml Syringe) 50 ml IVPUSH ASDIRECTED PRN PRN Reason: Hypoglycemia Diphenhydramine HCl (Diphenhydramine 50 Mg/Ml Sdv) 50 mg IVPUSH ONETIME ONE Stop: 09/13/20 12:54 Last Admin: 09/13/20 13:00 Dose: 50 mg Documented by: Fentanyl (Fentanyl 100 Mcg/2 Ml Sdv) Confirm Administered Dose 100 mcg .ROUTE .STK-MED ONE Stop: 09/15/20 06:59 Glucagon (Glucagon,Human Recombinant 1 Mg Vial) 1 mg IM ASDIRECTED PRN PRN Reason: Hypoglycemia Glucagon (Glucagon,Human Recombinant 1 Mg Vial) 1 mg IM ASDIRECTED PRN PRN Reason: Hypoglycemia Haloperidol Lactate (Haloperidol Lactate 5 Mg/Ml Sdv) 1 mg IM ONETIME ONE Stop: 09/13/20 17:42 Last Admin: 09/13/20 19:13 Dose: Not Given Documented by: Haloperidol Lactate (Haloperidol Lactate 5 Mg/Ml Sdv) 2 mg IM ONETIME ONE Stop: 09/13/20 22:37 Last Admin: 09/13/20 22:53 Dose: 2 mg Documented by: Haloperidol Lactate (Haloperidol Lactate 5 Mg/Ml Sdv) 1 mg IM ONETIME ONE Stop: 09/15/20 20:31 Last Admin: 09/15/20 21:42 Dose: 1 mg Documented by: Haloperidol Lactate (Haloperidol Lactate 5 Mg/Ml Sdv) 2 mg IM ONETIME ONE Stop: 09/16/20 13:31 Last Admin: 09/16/20 14:04 Dose: 2 mg Documented by: Sodium Chloride (Normal Saline) 1,000 mls @ 999 mls/hr IV STAT ONE Stop: 09/13/20 13:18 Last Admin: 09/13/20 12:58 Dose: 999 mls/hr Documented by: Sodium Chloride (Normal Saline) 1,000 mls @ 999 mls/hr IV STAT ONE Stop: 09/13/20 15:27 Last Admin: 09/13/20 14:46 Dose: 999 mls/hr Documented by: Pantoprazole Sodium 80 mg/ (Sodium Chloride) 20 mls @ 420 mls/hr IVPUSH ONETIME ONE Stop: 09/13/20 14:34 Last Admin: 09/13/20 14:50 Dose: 420 mls/hr Documented by: Pantoprazole Sodium 40 mg/ (Sodium Chloride) 10 mls @ 300 mls/hr IV Q24H [facility] Sodium Chloride (Normal Saline) 1,000 mls @ 125 mls/hr IV ASDIRECTED [facility] Last Admin: 09/13/20 17:39 Dose: 125 mls/hr Documented by: Potassium Chloride 40 meq/ (Premix) 100 mls @ 25 mls/hr IV ONETIME ONE Stop: 09/14/20 12:59 Last Admin: 09/14/20 09:06 Dose: 25 mls/hr Documented by: Magnesium Sulfate 2 gm/ Premix 50 mls @ 12.5 mls/hr IV ONETIME ONE Stop: 09/15/20 11:37 Last Admin: 09/15/20 08:37 Dose: 12.5 mls/hr Documented by: Potassium Chloride 20 meq/ (Premix) 50 mls @ 25 mls/hr IV ONETIME ONE Stop: 09/15/20 09:38 Last Admin: 09/15/20 08:51 Dose: Not Given Documented by: Potassium Chloride 40 meq/ (Premix) 100 mls @ 25 mls/hr IV ONETIME ONE Stop: 09/15/20 11:38 Last Admin: 09/15/20 13:05 Dose: Not Given Documented by: Potassium Chloride 40 meq/ (Premix) 100 mls @ 25 mls/hr IV ONETIME ONE Stop: 09/15/20 16:59 Last Admin: 09/15/20 13:00 Dose: 25 mls/hr Documented by: Magnesium Sulfate 2 gm/ Premix 50 mls @ 12.5 mls/hr IV ONETIME ONE Stop: 09/16/20 11:42 Last Admin: 09/16/20 09:20 Dose: 12.5 mls/hr Documented by: Potassium Chloride 40 meq/ (Premix) 100 mls @ 25 mls/hr IV ONETIME ONE Stop: 09/16/20 11:43 Last Admin: 09/16/20 12:46 Dose: Not Given Documented by: Potassium Chloride 40 meq/ (Premix) 100 mls @ 25 mls/hr IV ONETIME ONE Stop: 09/16/20 16:59 Last Admin: 09/16/20 12:32 Dose: 25 mls/hr Documented by: Insulin Aspart (Insulin Aspart 100 Units/Ml 3 Ml Pen) 0 unit SUBCUT TIDAC [facility]; Protocol Last Admin: 09/13/20 17:47 Dose: Not Given Documented by: Insulin Glargine (Insulin Glargine,Human Rec. Analog 100 Units/Ml 3 Ml Pen) 15 units SUBCUT BID [facility] Last Admin: 09/13/20 21:17 Dose: 15 units Documented by: Insulin Human Regular (Insulin Regular, Human 100 Units/Ml 10 Ml Vial) 6 unit SUBCUT ONETIME ONE; Protocol Stop: 09/13/20 13:41 Last Admin: 09/13/20 13:56 Dose: 6 units Documented by: Ketorolac Tromethamine (Ketorolac 15 Mg/Ml Sdv) 15 mg IVPUSH NOW STA Stop: 09/13/20 12:54 Last Admin: 09/13/20 13:00 Dose: 15 mg Documented by: Lidocaine HCl (Lidocaine 1% 5 Ml Sdv) Confirm Administered Dose 5 ml .ROUTE .STK-MED ONE Stop: 09/15/20 06:59 Lorazepam (Lorazepam 2 Mg/Ml Sdv) 1 mg IVPUSH ONETIME ONE Stop: 09/13/20 17:48 Last Admin: 09/13/20 19:13 Dose: Not Given Documented by: Lorazepam (Lorazepam 2 Mg/Ml Sdv) 0.5 mg IVPUSH ONETIME ONE Stop: 09/16/20 13:31 Last Admin: 09/16/20 14:05 Dose: 0.5 mg Documented by: Metoclopramide HCl (Metoclopramide 10 Mg/2 Ml Sdv) 10 mg IV ONETIME ONE Stop: 09/13/20 14:28 Last Admin: 09/13/20 14:45 Dose: 10 mg Documented by: Metoclopramide HCl (Metoclopramide 10 Mg/2 Ml Sdv) 5 mg IVPUSH Q6H [facility] Last Admin: 09/13/20 18:16 Dose: Not Given Documented by: Ondansetron HCl (Ondansetron 4 Mg/2 Ml Sdv) 4 mg IVPUSH ONETIME ONE Stop: 09/13/20 12:19 Last Admin: 09/13/20 12:59 Dose: 4 mg Documented by: Ondansetron HCl (Ondansetron 4 Mg/2 Ml Sdv) 4 mg IVPUSH Q6H PRN PRN Reason: Nausea/Vomiting Ondansetron HCl (Ondansetron 4 Mg/2 Ml Sdv) 4 mg IVPUSH Q6H PRN PRN Reason: Nausea/Vomiting Ondansetron HCl (Ondansetron 4 Mg/2 Ml Sdv) Confirm Administered Dose 4 mg .ROUTE .STK-MED ONE Stop: 09/15/20 07:53 Propofol (Propofol 200 Mg/20 Ml Sdv) Confirm Administered Dose 200 mg .ROUTE .STK-MED ONE Stop: 09/15/20 06:59 Sucralfate (Sucralfate Suspension 1 Gm/10 Ml Cup) 1 gm PO Q6H [facility] Last Admin: 09/14/20 00:51 Dose: Not Given Documented by: - Exam Urinary Catheter Total Time: 2Days 5Hours General: Alert, Oriented, Cooperative HEENT: Pupils Reactive Neck: Supple Lungs: Clear to Auscultation Cardiovascular: Regular Rate, Regular Rhythm, No Murmurs GI/Abdominal Exam: Soft, No Distention, Guarding, Tender. No: Distended, Rigid, Rebound Back Exam: No: CVA Tenderness (L), CVA Tenderness (R) Extremities: No Pedal Edema. No: Sreekanth's Sign, Leg Pain Peripheral Pulses: 2+: Dorsalis Pedis (L), Dorsalis Pedis (R) Skin: Warm, Dry, Intact Neurological: No New Focal Deficit - Patient Data Lab Results Last 24 hrs: Laboratory Results - last 24 hr 09/16/20 09/16/20 09/16/20 Range/Units 12:30 16:49 21:43 WBC (4.0-11.0) K/uL RBC (4.50-5.90) M/uL Hgb (13.0-17.0) g/dL Hct (38.0-50.0) % MCV (80.0-98.0) fL MCH (27.0-32.0) pg MCHC (31.0-37.0) g/dL RDW Std Deviation (28.0-62.0) fl RDW Coeff of Erika (11.0-15.0) % Plt Count (150-400) K/uL MPV (7.40-12.00) fL Neut % (Auto) (48.0-80.0) % Lymph % (Auto) (16.0-40.0) % [place] % (Auto) (0.0-15.0) % Eos % (Auto) (0.0-7.0) % Baso % (Auto) (0.0-1.5) % Neut # (Auto) (1.4-5.7) K/uL Lymph # (Auto) (0.6-2.4) K/uL [place] # (Auto) (0.0-0.8) K/uL Eos # (Auto) (0.0-0.7) K/uL Baso # (Auto) (0.0-0.1) K/uL Nucleated RBC % /100WBC Nucleated RBCs # K/uL Sodium (136-148) mmol/L Potassium (3.5-5.1) mmol/L Chloride (98-107) mmol/L Carbon Dioxide (21.0-32.0) mmol/L BUN (7.0-18.0) mg/dL Creatinine (0.8-1.3) mg/dL Est Cr Clr Drug Dosing mL/min Estimated GFR (MDRD) ml/min Glucose (74-106) mg/dL POC Glucose 66 L 91 178 H (70-99) mg/dL Calcium (8.5-10.1) mg/dL Magnesium (1.8-2.4) mg/dL 09/17/20 09/17/20 09/17/20 Range/Units 00:31 01:39 05:38 WBC (4.0-11.0) K/uL RBC (4.50-5.90) M/uL Hgb (13.0-17.0) g/dL Hct (38.0-50.0) % MCV (80.0-98.0) fL MCH (27.0-32.0) pg MCHC (31.0-37.0) g/dL RDW Std Deviation (28.0-62.0) fl RDW Coeff of Erika (11.0-15.0) % Plt Count (150-400) K/uL MPV (7.40-12.00) fL Neut % (Auto) (48.0-80.0) % Lymph % (Auto) (16.0-40.0) % [place] % (Auto) (0.0-15.0) % Eos % (Auto) (0.0-7.0) % Baso % (Auto) (0.0-1.5) % Neut # (Auto) (1.4-5.7) K/uL Lymph # (Auto) (0.6-2.4) K/uL [place] # (Auto) (0.0-0.8) K/uL Eos # (Auto) (0.0-0.7) K/uL Baso # (Auto) (0.0-0.1) K/uL Nucleated RBC % /100WBC Nucleated RBCs # K/uL Sodium (136-148) mmol/L Potassium (3.5-5.1) mmol/L Chloride (98-107) mmol/L Carbon Dioxide (21.0-32.0) mmol/L BUN (7.0-18.0) mg/dL Creatinine (0.8-1.3) mg/dL Est Cr Clr Drug Dosing mL/min Estimated GFR (MDRD) ml/min Glucose (74-106) mg/dL POC Glucose 206 H 205 H 132 H (70-99) mg/dL Calcium (8.5-10.1) mg/dL Magnesium (1.8-2.4) mg/dL 09/17/20 09/17/20 Range/Units 06:25 06:25 WBC 4.78 (4.0-11.0) K/uL RBC 3.86 L (4.50-5.90) M/uL Hgb 10.2 L (13.0-17.0) g/dL Hct 30.1 L (38.0-50.0) % MCV 78.0 L (80.0-98.0) fL MCH 26.4 L (27.0-32.0) pg MCHC 33.9 (31.0-37.0) g/dL RDW Std Deviation 40.4 (28.0-62.0) fl RDW Coeff of Erika 14 (11.0-15.0) % Plt Count 241 (150-400) K/uL MPV 9.30 (7.40-12.00) fL Neut % (Auto) 63.8 (48.0-80.0) % Lymph % (Auto) 27.8 (16.0-40.0) % [place] % (Auto) 6.9 (0.0-15.0) % Eos % (Auto) 1.3 (0.0-7.0) % Baso % (Auto) 0.2 (0.0-1.5) % Neut # (Auto) 3.1 (1.4-5.7) K/uL Lymph # (Auto) 1.3 (0.6-2.4) K/uL [place] # (Auto) 0.3 (0.0-0.8) K/uL Eos # (Auto) 0.1 (0.0-0.7) K/uL Baso # (Auto) 0.0 (0.0-0.1) K/uL Nucleated RBC % 0.0 /100WBC Nucleated RBCs # 0 K/uL Sodium 140 (136-148) mmol/L Potassium 3.5 (3.5-5.1) mmol/L Chloride 107 (98-107) mmol/L Carbon Dioxide 26.8 (21.0-32.0) mmol/L BUN 18 (7.0-18.0) mg/dL Creatinine 0.9 (0.8-1.3) mg/dL Est Cr Clr Drug Dosing 105.40 mL/min Estimated GFR (MDRD) > 60.0 ml/min Glucose 122 H (74-106) mg/dL POC Glucose (70-99) mg/dL Calcium 8.2 L (8.5-10.1) mg/dL Magnesium 1.8 (1.8-2.4) mg/dL Result Diagrams: 09/17/20 06:25 09/17/20 06:25 Sepsis Event Note - Evaluation Sepsis Screening Result: No Definite Risk - Focused Exam Vital Signs: Vital Signs Temp Pulse Resp BP Pulse Ox 09/17/20 09:00 97.1 F 94 16 138/94 H 94 L 09/17/20 05:39 97.5 F 98 16 155/97 H 98 09/17/20 02:20 98.4 F 103 H 18 143/92 H 98 09/17/20 00:34 97.9 F 91 16 128/87 96 - Problem List Review Problem List Initiated/Reviewed/Updated: Yes - Plan Plan:: 24-year-old male with history of uncontrolled DM1 admitted for intractable nausea and vomiting. Currently on LR at 125mL/hr. 40 mg IV Protonix BID, Zofran 4 mg Q4HR PRN. Morphine 2mg q4hr for pain. Patient is still not tolerating diet. He got one time haldol, ativan together yesterday with scheduled benadryl but nausea/vomiting remains. It has been 3 days now since he has tolerated a meal. EGD showed inflammation along the distal esophagus, and in the fundus. Next step will be to consult GI and discuss post-pyloric feeding tube. Patient may have to be transferred for this. Sliding scale insulin Q6, accucheck q6, transition to clear diet pending vomiting/nausea status, Lantus 15 units daily, Reglan 5 mg every 6 hours GI bleed IV PPI, monitor CBC and vitals for any signs of hemodynamic instability. Neurogenic bladder- Clements catheter placed.
[2020-09-17] MEDS: cefTRIAXone 1 GM in Premix Bag 1 BAG IV SCH (17:00)
[2020-09-17] MEDS: Insulin Glargine,Human Rec. Analog 100 Units/ML 3 ML Pen SUBCUT SCH (21:17)
[2020-09-17 22:16] LABS: BLOOD UREA NITROGEN,BUN 17 mg/dL (7.0-18.0); CARBON DIOXIDE,CO2 23.7 mmol/L (21.0-32.0); CHLORIDE,CL 101 mmol/L (98-107); GLUCOSE RANDOM 305 mg/dL (74-106); POTASSIUM,K 3.7 mmol/L (3.5-5.1); SODIUM,NA 136 mmol/L (136-148)
--- NOTE | 2020-09-17 22:37 | CR ---
INDICATION: Chest pain. TECHNIQUE: PA and lateral chest radiographs. COMPARISON: 06/20/2019. FINDINGS: Lungs and pleural spaces clear. Normal cardiac and mediastinal contours. IMPRESSION: Negative chest radiographs. Dictated by Clayton Clay MD @ 09/17/2020 10:35:38 PM Dictated by: Clayton Clay MD @ 09/17/2020 22:35:41 (Electronically Signed)
[2020-09-18] MEDS: Sucralfate Suspension 1 GM/10 ML Cup PO SCH ×4 (00:07→17:55)
[2020-09-18] MEDS: Insulin Aspart 100 Units/ML 3 ML Pen SUBCUT SCH ×4 (00:07→17:00)
[2020-09-18] MEDS: Morphine 2 MG/ML SYRINGE IVPUSH PRN ×2 (02:30→06:40)
[2020-09-18] MEDS: Metoclopramide 10 MG/2 ML SDV IVPUSH SCH ×2 (02:35→08:55)
[2020-09-18] MEDS: diphenhydrAMINE 50 MG/ML SDV IVPUSH PRN ×2 (04:00→10:21)
[2020-09-18] MEDS: Lactated Ringers 1,000 ML IV SCH ×3 (04:04→21:30)
[2020-09-18] MEDS: Ondansetron 4 MG/2 ML SDV IVPUSH PRN (06:39)
[2020-09-18 06:51] LABS: BLOOD UREA NITROGEN,BUN 14 mg/dL (7.0-18.0); CARBON DIOXIDE,CO2 26.9 mmol/L (21.0-32.0); CHLORIDE,CL 103 mmol/L (98-107); GLUCOSE RANDOM 187 mg/dL (74-106); POTASSIUM,K 3.3 mmol/L (3.5-5.1); SODIUM,NA 137 mmol/L (136-148)
[2020-09-18] MEDS ORDERED: Potassium Chloride 20 MEQ Tab.ER PO ONE (07:54)
[2020-09-18] MEDS ORDERED: Magnesium Sulfate/Water 4 GM in Premix Bag 1 BAG IV ONE (07:54)
[2020-09-18] MEDS: Pantoprazole 40 MG in Sodium Chloride 0.9% 10 ML IV SCH ×2 (08:55→20:22)
--- NOTE | 2020-09-18 09:10 | PCM.PN ---
- General Info Date of Service: 09/18/20 Admission Dx/Problem (Free Text): Abdominal pain/ N/V suspected gastroparesis Subjective Update: Reports he ate jello, broth and some clear ensure early this morning around 3 AM. He reports lab came in for lab draws around 6 and he then vomited every thing out afterwards. No evidence in the room of any emesis in emesis basin next to him is empty. Patient denies any chest pain shortness of breath. He reports abdominal pain that is diffuse but more targeted in the left upper quadrant and epigastric region. Reports that he is passing gas but has not had a bowel movement. Denies any bloody emesis. - Patient Data Vitals - Most Recent: Last Vital Signs Temp 96.7 F L 09/18/20 04:00 Pulse 97 09/18/20 04:00 Resp 18 09/18/20 04:00 BP 155/94 H 09/18/20 04:00 Pulse Ox 100 09/18/20 04:00 Weight - Most Recent: 57.878 kg I&O - Last 24 Hours: Intake & Output 09/17/20 09/18/20 09/18/20 22:59 06:59 14:59 Intake Total 1540 1630 Output Total 950 1250 Balance 590 380 Lab Results Last 24 Hours: Laboratory Results - last 24 hr 09/17/20 09/17/20 09/17/20 Range/Units 12:11 16:40 21:16 WBC (4.0-11.0) K/uL RBC (4.50-5.90) M/uL Hgb (13.0-17.0) g/dL Hct (38.0-50.0) % MCV (80.0-98.0) fL MCH (27.0-32.0) pg MCHC (31.0-37.0) g/dL RDW Std Deviation (28.0-62.0) fl RDW Coeff of Erika (11.0-15.0) % Plt Count (150-400) K/uL MPV (7.40-12.00) fL Neut % (Auto) (48.0-80.0) % Lymph % (Auto) (16.0-40.0) % [place] % (Auto) (0.0-15.0) % Eos % (Auto) (0.0-7.0) % Baso % (Auto) (0.0-1.5) % Neut # (Auto) (1.4-5.7) K/uL Lymph # (Auto) (0.6-2.4) K/uL [place] # (Auto) (0.0-0.8) K/uL Eos # (Auto) (0.0-0.7) K/uL Baso # (Auto) (0.0-0.1) K/uL Nucleated RBC % /100WBC Nucleated RBCs # K/uL Sodium (136-148) mmol/L Potassium (3.5-5.1) mmol/L Chloride (98-107) mmol/L Carbon Dioxide (21.0-32.0) mmol/L BUN (7.0-18.0) mg/dL Creatinine (0.8-1.3) mg/dL Est Cr Clr Drug Dosing mL/min Estimated GFR (MDRD) ml/min Glucose (74-106) mg/dL POC Glucose 84 250 H 288 H (70-99) mg/dL Calcium (8.5-10.1) mg/dL Magnesium (1.8-2.4) mg/dL Total Bilirubin (0.2-1.0) mg/dL AST (15-37) IU/L ALT (14-63) IU/L Alkaline Phosphatase (46-116) U/L Troponin I (0.000-0.056) ng/mL Total Protein (6.4-8.2) g/dL Albumin (3.4-5.0) g/dL Globulin (2.6-4.0) g/dL Albumin/Globulin Ratio (0.9-1.6) 09/17/20 09/17/20 09/17/20 Range/Units 21:46 21:46 22:40 WBC 4.33 (4.0-11.0) K/uL RBC 4.14 L (4.50-5.90) M/uL Hgb 10.8 L (13.0-17.0) g/dL Hct 32.0 L (38.0-50.0) % MCV 77.3 L (80.0-98.0) fL MCH 26.1 L (27.0-32.0) pg MCHC 33.8 (31.0-37.0) g/dL RDW Std Deviation 40.0 (28.0-62.0) fl RDW Coeff of Erika 14 (11.0-15.0) % Plt Count 229 (150-400) K/uL MPV 9.40 (7.40-12.00) fL Neut % (Auto) 60.0 (48.0-80.0) % Lymph % (Auto) 30.7 (16.0-40.0) % [place] % (Auto) 7.2 (0.0-15.0) % Eos % (Auto) 1.6 (0.0-7.0) % Baso % (Auto) 0.5 (0.0-1.5) % Neut # (Auto) 2.6 (1.4-5.7) K/uL Lymph # (Auto) 1.3 (0.6-2.4) K/uL [place] # (Auto) 0.3 (0.0-0.8) K/uL Eos # (Auto) 0.1 (0.0-0.7) K/uL Baso # (Auto) 0.0 (0.0-0.1) K/uL Nucleated RBC % 0.0 /100WBC Nucleated RBCs # 0 K/uL Sodium 136 (136-148) mmol/L Potassium 3.7 (3.5-5.1) mmol/L Chloride 101 (98-107) mmol/L Carbon Dioxide 23.7 (21.0-32.0) mmol/L BUN 17 (7.0-18.0) mg/dL Creatinine 0.8 (0.8-1.3) mg/dL Est Cr Clr Drug Dosing 118.57 mL/min Estimated GFR (MDRD) > 60.0 ml/min Glucose 305 H (74-106) mg/dL POC Glucose (70-99) mg/dL Calcium 8.0 L (8.5-10.1) mg/dL Magnesium (1.8-2.4) mg/dL Total Bilirubin (0.2-1.0) mg/dL AST (15-37) IU/L ALT (14-63) IU/L Alkaline Phosphatase (46-116) U/L Troponin I < 0.050 (0.000-0.056) ng/mL Total Protein (6.4-8.2) g/dL Albumin (3.4-5.0) g/dL Globulin (2.6-4.0) g/dL Albumin/Globulin Ratio (0.9-1.6) 09/18/20 09/18/20 09/18/20 Range/Units 00:06 05:45 05:45 WBC 4.98 (4.0-11.0) K/uL RBC 3.82 L (4.50-5.90) M/uL Hgb 9.9 L (13.0-17.0) g/dL Hct 29.5 L (38.0-50.0) % MCV 77.2 L (80.0-98.0) fL MCH 25.9 L (27.0-32.0) pg MCHC 33.6 (31.0-37.0) g/dL RDW Std Deviation 40.1 (28.0-62.0) fl RDW Coeff of Erika 14 (11.0-15.0) % Plt Count 246 (150-400) K/uL MPV 9.20 (7.40-12.00) fL Neut % (Auto) 50.0 (48.0-80.0) % Lymph % (Auto) 39.4 (16.0-40.0) % [place] % (Auto) 7.4 (0.0-15.0) % Eos % (Auto) 3.0 (0.0-7.0) % Baso % (Auto) 0.2 (0.0-1.5) % Neut # (Auto) 2.5 (1.4-5.7) K/uL Lymph # (Auto) 2.0 (0.6-2.4) K/uL [place] # (Auto) 0.4 (0.0-0.8) K/uL Eos # (Auto) 0.2 (0.0-0.7) K/uL Baso # (Auto) 0.0 (0.0-0.1) K/uL Nucleated RBC % 0.0 /100WBC Nucleated RBCs # 0 K/uL Sodium 137 (136-148) mmol/L Potassium 3.3 L (3.5-5.1) mmol/L Chloride 103 (98-107) mmol/L Carbon Dioxide 26.9 (21.0-32.0) mmol/L BUN 14 (7.0-18.0) mg/dL Creatinine 0.9 (0.8-1.3) mg/dL Est Cr Clr Drug Dosing 105.40 mL/min Estimated GFR (MDRD) > 60.0 ml/min Glucose 187 H (74-106) mg/dL POC Glucose 231 H (70-99) mg/dL Calcium 7.8 L (8.5-10.1) mg/dL Magnesium 1.4 L (1.8-2.4) mg/dL Total Bilirubin 0.2 (0.2-1.0) mg/dL AST 12 L (15-37) IU/L ALT 12 L (14-63) IU/L Alkaline Phosphatase 70 (46-116) U/L Troponin I (0.000-0.056) ng/mL Total Protein 5.7 L (6.4-8.2) g/dL Albumin 2.1 L (3.4-5.0) g/dL Globulin 3.6 (2.6-4.0) g/dL Albumin/Globulin Ratio 0.6 L (0.9-1.6) 09/18/20 Range/Units 06:04 WBC (4.0-11.0) K/uL RBC (4.50-5.90) M/uL Hgb (13.0-17.0) g/dL Hct (38.0-50.0) % MCV (80.0-98.0) fL MCH (27.0-32.0) pg MCHC (31.0-37.0) g/dL RDW Std Deviation (28.0-62.0) fl RDW Coeff of Erika (11.0-15.0) % Plt Count (150-400) K/uL MPV (7.40-12.00) fL Neut % (Auto) (48.0-80.0) % Lymph % (Auto) (16.0-40.0) % [place] % (Auto) (0.0-15.0) % Eos % (Auto) (0.0-7.0) % Baso % (Auto) (0.0-1.5) % Neut # (Auto) (1.4-5.7) K/uL Lymph # (Auto) (0.6-2.4) K/uL [place] # (Auto) (0.0-0.8) K/uL Eos # (Auto) (0.0-0.7) K/uL Baso # (Auto) (0.0-0.1) K/uL Nucleated RBC % /100WBC Nucleated RBCs # K/uL Sodium (136-148) mmol/L Potassium (3.5-5.1) mmol/L Chloride (98-107) mmol/L Carbon Dioxide (21.0-32.0) mmol/L BUN (7.0-18.0) mg/dL Creatinine (0.8-1.3) mg/dL Est Cr Clr Drug Dosing mL/min Estimated GFR (MDRD) ml/min Glucose (74-106) mg/dL POC Glucose 187 H (70-99) mg/dL Calcium (8.5-10.1) mg/dL Magnesium (1.8-2.4) mg/dL Total Bilirubin (0.2-1.0) mg/dL AST (15-37) IU/L ALT (14-63) IU/L Alkaline Phosphatase (46-116) U/L Troponin I (0.000-0.056) ng/mL Total Protein (6.4-8.2) g/dL Albumin (3.4-5.0) g/dL Globulin (2.6-4.0) g/dL Albumin/Globulin Ratio (0.9-1.6) Med Orders - Current: Current Medications Dextrose/Water (50% Dextrose In Water 50 Ml Syringe) 50 ml IVPUSH ASDIRECTED PRN PRN Reason: Hypoglycemia Diphenhydramine HCl (Diphenhydramine 50 Mg/Ml Sdv) 25 mg IVPUSH Q6H PRN PRN Reason: Itching Last Admin: 09/18/20 04:00 Dose: 25 mg Documented by: Glucagon (Glucagon,Human Recombinant 1 Mg Vial) 1 mg IM ASDIRECTED PRN PRN Reason: Hypoglycemia Pantoprazole Sodium 40 mg/ (Sodium Chloride) 10 mls @ 300 mls/hr IV Q12HR [facility] Last Admin: 09/18/20 08:55 Dose: 300 mls/hr Documented by: Ceftriaxone Sodium/Dextrose 1 (gm/ Premix) 50 mls @ 100 mls/hr IV Q24H [facility] Last Admin: 09/17/20 17:00 Dose: 100 mls/hr Documented by: Lactated Ringer's (Ringers, Lactated) 1,000 mls @ 125 mls/hr IV ASDIRECTED [facility] Last Admin: 09/18/20 04:04 Dose: 125 mls/hr Documented by: Magnesium Sulfate 4 gm/ Premix 100 mls @ 33.333 mls/hr IV ONETIME ONE Stop: 09/18/20 10:53 Last Admin: 09/18/20 08:54 Dose: 33.333 mls/hr Documented by: Insulin Aspart (Insulin Aspart 100 Units/Ml 3 Ml Pen) [address] [facility]; Protocol Last Admin: 09/18/20 06:06 Dose: 1 unit Documented by: Insulin Glargine (Insulin Glargine,Human Rec. Analog 100 Units/Ml 3 Ml Pen) [address] [facility] Last Admin: 09/17/20 21:17 Dose: 15 units Documented by: Metoclopramide HCl (Metoclopramide 10 Mg/2 Ml Sdv) 5 mg IVPUSH Q6H [facility] Last Admin: 09/18/20 08:55 Dose: 5 mg Documented by: Ondansetron HCl (Ondansetron 4 Mg/2 Ml Sdv) 4 mg IVPUSH Q4H PRN PRN Reason: Nausea/Vomiting Last Admin: 09/18/20 06:39 Dose: 4 mg Documented by: Sucralfate (Sucralfate Suspension 1 Gm/10 Ml Cup) [address] [facility] Last Admin: 09/18/20 06:05 Dose: 1 gm Documented by: Discontinued Medications Al Hydroxide/Mg Hydroxide 15 (ml/ Lidocaine HCl 5 ml) 0 ml PO ONETIME ONE Stop: 09/13/20 15:57 Last Admin: 09/13/20 16:07 Dose: 20 each Documented by: Dextrose/Water (50% Dextrose In Water 50 Ml Syringe) 50 ml IVPUSH ASDIRECTED PRN PRN Reason: Hypoglycemia Dextrose/Water (50% Dextrose In Water 50 Ml Syringe) 50 ml IVPUSH ASDIRECTED PRN PRN Reason: Hypoglycemia Diphenhydramine HCl (Diphenhydramine 50 Mg/Ml Sdv) 50 mg IVPUSH ONETIME ONE Stop: 09/13/20 12:54 Last Admin: 09/13/20 13:00 Dose: 50 mg Documented by: Fentanyl (Fentanyl 100 Mcg/2 Ml Sdv) Confirm Administered Dose 100 mcg .ROUTE .S TK-MED ONE Stop: 09/15/20 06:59 Glucagon (Glucagon,Human Recombinant 1 Mg Vial) 1 mg IM ASDIRECTED PRN PRN Reason: Hypoglycemia Glucagon (Glucagon,Human Recombinant 1 Mg Vial) 1 mg IM ASDIRECTED PRN PRN Reason: Hypoglycemia Haloperidol Lactate (Haloperidol Lactate 5 Mg/Ml Sdv) 1 mg IM ONETIME ONE Stop: 09/13/20 17:42 Last Admin: 09/13/20 19:13 Dose: Not Given Documented by: Haloperidol Lactate (Haloperidol Lactate 5 Mg/Ml Sdv) 2 mg IM ONETIME ONE Stop: 09/13/20 22:37 Last Admin: 09/13/20 22:53 Dose: 2 mg Documented by: Haloperidol Lactate (Haloperidol Lactate 5 Mg/Ml Sdv) 1 mg IM ONETIME ONE Stop: 09/15/20 20:31 Last Admin: 09/15/20 21:42 Dose: 1 mg Documented by: Haloperidol Lactate (Haloperidol Lactate 5 Mg/Ml Sdv) 2 mg IM ONETIME ONE Stop: 09/16/20 13:31 Last Admin: 09/16/20 14:04 Dose: 2 mg Documented by: Sodium Chloride (Normal Saline) 1,000 mls @ 999 mls/hr IV STAT ONE Stop: 09/13/20 13:18 Last Admin: 09/13/20 12:58 Dose: 999 mls/hr Documented by: Sodium Chloride (Normal Saline) 1,000 mls @ 999 mls/hr IV STAT ONE Stop: 09/13/20 15:27 Last Admin: 09/13/20 14:46 Dose: 999 mls/hr Documented by: Pantoprazole Sodium 80 mg/ (Sodium Chloride) 20 mls @ 420 mls/hr IVPUSH ONETIME ONE Stop: 09/13/20 14:34 Last Admin: 09/13/20 14:50 Dose: 420 mls/hr Documented by: Pantoprazole Sodium 40 mg/ (Sodium Chloride) 10 mls @ 300 mls/hr IV Q24H [facility] Sodium Chloride (Normal Saline) 1,000 mls @ 125 mls/hr IV ASDIRECTED [facility] Last Admin: 09/13/20 17:39 Dose: 125 mls/hr Documented by: Dextrose/Lactated Ringer's (Dextrose 5%-Lactated Ringers) 1,000 mls @ 125 mls/hr IV ASDIRECTED [facility] Last Infusion: 09/17/20 17:00 Dose: 0 mls/hr Documented by: Potassium Chloride 40 meq/ (Premix) 100 mls @ 25 mls/hr IV ONETIME ONE Stop: 09/14/20 12:59 Last Admin: 09/14/20 09:06 Dose: 25 mls/hr Documented by: Magnesium Sulfate 2 gm/ Premix 50 mls @ 12.5 mls/hr IV ONETIME ONE Stop: 09/15/20 11:37 Last Admin: 09/15/20 08:37 Dose: 12.5 mls/hr Documented by: Potassium Chloride 20 meq/ (Premix) 50 mls @ 25 mls/hr IV ONETIME ONE Stop: 09/15/20 09:38 Last Admin: 09/15/20 08:51 Dose: Not Given Documented by: Potassium Chloride 40 meq/ (Premix) 100 mls @ 25 mls/hr IV ONETIME ONE Stop: 09/15/20 11:38 Last Admin: 09/15/20 13:05 Dose: Not Given Documented by: Potassium Chloride 40 meq/ (Premix) 100 mls @ 25 mls/hr IV ONETIME ONE Stop: 09/15/20 16:59 Last Admin: 09/15/20 13:00 Dose: 25 mls/hr Documented by: Magnesium Sulfate 2 gm/ Premix 50 mls @ 12.5 mls/hr IV ONETIME ONE Stop: 09/16/20 11:42 Last Admin: 09/16/20 09:20 Dose: 12.5 mls/hr Documented by: Potassium Chloride 40 meq/ (Premix) 100 mls @ 25 mls/hr IV ONETIME ONE Stop: 09/16/20 11:43 Last Admin: 09/16/20 12:46 Dose: Not Given Documented by: Potassium Chloride 40 meq/ (Premix) 100 mls @ 25 mls/hr IV ONETIME ONE Stop: 09/16/20 16:59 Last Admin: 09/16/20 12:32 Dose: 25 mls/hr Documented by: Insulin Aspart (Insulin Aspart 100 Units/Ml 3 Ml Pen) 0 unit SUBCUT TIDAC [facility]; Protocol Last Admin: 09/13/20 17:47 Dose: Not Given Documented by: Insulin Glargine (Insulin Glargine,Human Rec. Analog 100 Units/Ml 3 Ml Pen) [address] [facility] Last Admin: 09/13/20 21:17 Dose: 15 units Documented by: Insulin Human Regular (Insulin Regular, Human 100 Units/Ml 10 Ml Vial) 6 unit SUBCUT ONETIME ONE; Protocol Stop: 09/13/20 13:41 Last Admin: 09/13/20 13:56 Dose: 6 units Documented by: Ketorolac Tromethamine (Ketorolac 15 Mg/Ml Sdv) 15 mg IVPUSH NOW STA Stop: 09/13/20 12:54 Last Admin: 09/13/20 13:00 Dose: 15 mg Documented by: Lidocaine HCl (Lidocaine 1% 5 Ml Sdv) Confirm Administered Dose 5 ml .ROUTE .STK-MED ONE Stop: 09/15/20 06:59 Lorazepam (Lorazepam 2 Mg/Ml Sdv) 1 mg IVPUSH ONETIME ONE Stop: 09/13/20 17:48 Last Admin: 09/13/20 19:13 Dose: Not Given Documented by: Lorazepam (Lorazepam 2 Mg/Ml Sdv) 0.5 mg IVPUSH ONETIME ONE Stop: 09/16/20 13:31 Last Admin: 09/16/20 14:05 Dose: 0.5 mg Documented by: Metoclopramide HCl (Metoclopramide 10 Mg/2 Ml Sdv) 10 mg IV ONETIME ONE Stop: 09/13/20 14:28 Last Admin: 09/13/20 14:45 Dose: 10 mg Documented by: Metoclopramide HCl (Metoclopramide 10 Mg/2 Ml Sdv) [address] [facility] Last Admin: 09/13/20 18:16 Dose: Not Given Documented by: Morphine Sulfate (Morphine 2 Mg/Ml Syringe) 2 mg IVPUSH Q4H PRN PRN Reason: Pain Last Admin: 09/18/20 06:40 Dose: 2 mg Documented by: Ondansetron HCl (Ondansetron 4 Mg/2 Ml Sdv) 4 mg IVPUSH ONETIME ONE Stop: 09/13/20 12:19 Last Admin: 09/13/20 12:59 Dose: 4 mg Documented by: Ondansetron HCl (Ondansetron 4 Mg/2 Ml Sdv) 4 mg IVPUSH Q6H PRN PRN Reason: Nausea/Vomiting Ondansetron HCl (Ondansetron 4 Mg/2 Ml Sdv) 4 mg IVPUSH Q6H PRN PRN Reason: Nausea/Vomiting Ondansetron HCl (Ondansetron 4 Mg/2 Ml Sdv) Confirm Administered Dose 4 mg .ROUTE .STK-MED ONE Stop: 09/15/20 07:53 Potassium Chloride (Potassium Chloride 20 Meq Tab.Er) 40 meq PO ONETIME ONE Stop: 09/18/20 07:55 Last Admin: 09/18/20 08:56 Dose: 40 meq Documented by: Propofol (Propofol 200 Mg/20 Ml Sdv) Confirm Administered Dose 200 mg .ROUTE .STK-MED ONE Stop: 09/15/20 06:59 Sucralfate (Sucralfate Suspension 1 Gm/10 Ml Cup) 1 gm PO Q6H [facility] Last Admin: 09/14/20 00:51 Dose: Not Given Documented by: - Exam Urinary Catheter Total Time: 2Days 5Hours - Patient Data Lab Results Last 24 hrs: Laboratory Results - last 24 hr 09/17/20 09/17/20 09/17/20 Range/Units 12:11 16:40 21:16 WBC (4.0-11.0) K/uL RBC (4.50-5.90) M/uL Hgb (13.0-17.0) g/dL Hct (38.0-50.0) % MCV (80.0-98.0) fL MCH (27.0-32.0) pg MCHC (31.0-37.0) g/dL RDW Std Deviation (28.0-62.0) fl RDW Coeff of Erika (11.0-15.0) % Plt Count (150-400) K/uL MPV (7.40-12.00) fL Neut % (Auto) (48.0-80.0) % Lymph % (Auto) (16.0-40.0) % [place] % (Auto) (0.0-15.0) % Eos % (Auto) (0.0-7.0) % Baso % (Auto) (0.0-1.5) % Neut # (Auto) (1.4-5.7) K/uL Lymph # (Auto) (0.6-2.4) K/uL [place] # (Auto) (0.0-0.8) K/uL Eos # (Auto) (0.0-0.7) K/uL Baso # (Auto) (0.0-0.1) K/uL Nucleated RBC % /100WBC Nucleated RBCs # K/uL Sodium (136-148) mmol/L Potassium (3.5-5.1) mmol/L Chloride (98-107) mmol/L Carbon Dioxide (21.0-32.0) mmol/L BUN (7.0-18.0) mg/dL Creatinine (0.8-1.3) mg/dL Est Cr Clr Drug Dosing mL/min Estimated GFR (MDRD) ml/min Glucose (74-106) mg/dL POC Glucose 84 250 H 288 H (70-99) mg/dL Calcium (8.5-10.1) mg/dL Magnesium (1.8-2.4) mg/dL Total Bilirubin (0.2-1.0) mg/dL AST (15-37) IU/L ALT (14-63) IU/L Alkaline Phosphatase (46-116) U/L Troponin I (0.000-0.056) ng/mL Total Protein (6.4-8.2) g/dL Albumin (3.4-5.0) g/dL Globulin (2.6-4.0) g/dL Albumin/Globulin Ratio (0.9-1.6) 09/17/20 09/17/20 09/17/20 Range/Units 21:46 21:46 22:40 WBC 4.33 (4.0-11.0) K/uL RBC 4.14 L (4.50-5.90) M/uL Hgb 10.8 L (13.0-17.0) g/dL Hct 32.0 L (38.0-50.0) % MCV 77.3 L (80.0-98.0) fL MCH 26.1 L (27.0-32.0) pg MCHC 33.8 (31.0-37.0) g/dL RDW Std Deviation 40.0 (28.0-62.0) fl RDW Coeff of Erika 14 (11.0-15.0) % Plt Count 229 (150-400) K/uL MPV 9.40 (7.40-12.00) fL Neut % (Auto) 60.0 (48.0-80.0) % Lymph % (Auto) 30.7 (16.0-40.0) % [place] % (Auto) 7.2 (0.0-15.0) % Eos % (Auto) 1.6 (0.0-7.0) % Baso % (Auto) 0.5 (0.0-1.5) % Neut # (Auto) 2.6 (1.4-5.7) K/uL Lymph # (Auto) 1.3 (0.6-2.4) K/uL [place] # (Auto) 0.3 (0.0-0.8) K/uL Eos # (Auto) 0.1 (0.0-0.7) K/uL Baso # (Auto) 0.0 (0.0-0.1) K/uL Nucleated RBC % 0.0 /100WBC Nucleated RBCs # 0 K/uL Sodium 136 (136-148) mmol/L Potassium 3.7 (3.5-5.1) mmol/L Chloride 101 (98-107) mmol/L Carbon Dioxide 23.7 (21.0-32.0) mmol/L BUN 17 (7.0-18.0) mg/dL Creatinine 0.8 (0.8-1.3) mg/dL Est Cr Clr Drug Dosing 118.57 mL/min Estimated GFR (MDRD) > 60.0 ml/min Glucose 305 H (74-106) mg/dL POC Glucose (70-99) mg/dL Calcium 8.0 L (8.5-10.1) mg/dL Magnesium (1.8-2.4) mg/dL Total Bilirubin (0.2-1.0) mg/dL AST (15-37) IU/L ALT (14-63) IU/L Alkaline Phosphatase (46-116) U/L Troponin I < 0.050 (0.000-0.056) ng/mL Total Protein (6.4-8.2) g/dL Albumin (3.4-5.0) g/dL Globulin (2.6-4.0) g/dL Albumin/Globulin Ratio (0.9-1.6) 09/18/20 09/18/20 09/18/20 Range/Units 00:06 05:45 05:45 WBC 4.98 (4.0-11.0) K/uL RBC 3.82 L (4.50-5.90) M/uL Hgb 9.9 L (13.0-17.0) g/dL Hct 29.5 L (38.0-50.0) % MCV 77.2 L (80.0-98.0) fL MCH 25.9 L (27.0-32.0) pg MCHC 33.6 (31.0-37.0) g/dL RDW Std Deviation 40.1 (28.0-62.0) fl RDW Coeff of Erika 14 (11.0-15.0) % Plt Count 246 (150-400) K/uL MPV 9.20 (7.40-12.00) fL Neut % (Auto) 50.0 (48.0-80.0) % Lymph % (Auto) 39.4 (16.0-40.0) % [place] % (Auto) 7.4 (0.0-15.0) % Eos % (Auto) 3.0 (0.0-7.0) % Baso % (Auto) 0.2 (0.0-1.5) % Neut # (Auto) 2.5 (1.4-5.7) K/uL Lymph # (Auto) 2.0 (0.6-2.4) K/uL [place] # (Auto) 0.4 (0.0-0.8) K/uL Eos # (Auto) 0.2 (0.0-0.7) K/uL Baso # (Auto) 0.0 (0.0-0.1) K/uL Nucleated RBC % 0.0 /100WBC Nucleated RBCs # 0 K/uL Sodium 137 (136-148) mmol/L Potassium 3.3 L (3.5-5.1) mmol/L Chloride 103 (98-107) mmol/L Carbon Dioxide 26.9 (21.0-32.0) mmol/L BUN 14 (7.0-18.0) mg/dL Creatinine 0.9 (0.8-1.3) mg/dL Est Cr Clr Drug Dosing 105.40 mL/min Estimated GFR (MDRD) > 60.0 ml/min Glucose 187 H (74-106) mg/dL POC Glucose 231 H (70-99) mg/dL Calcium 7.8 L (8.5-10.1) mg/dL Magnesium 1.4 L (1.8-2.4) mg/dL Total Bilirubin 0.2 (0.2-1.0) mg/dL AST 12 L (15-37) IU/L ALT 12 L (14-63) IU/L Alkaline Phosphatase 70 (46-116) U/L Troponin I (0.000-0.056) ng/mL Total Protein 5.7 L (6.4-8.2) g/dL Albumin 2.1 L (3.4-5.0) g/dL Globulin 3.6 (2.6-4.0) g/dL Albumin/Globulin Ratio 0.6 L (0.9-1.6) 09/18/20 Range/Units 06:04 WBC (4.0-11.0) K/uL RBC (4.50-5.90) M/uL Hgb (13.0-17.0) g/dL Hct (38.0-50.0) % MCV (80.0-98.0) fL MCH (27.0-32.0) pg MCHC (31.0-37.0) g/dL RDW Std Deviation (28.0-62.0) fl RDW Coeff of Erika (11.0-15.0) % Plt Count (150-400) K/uL MPV (7.40-12.00) fL Neut % (Auto) (48.0-80.0) % Lymph % (Auto) (16.0-40.0) % [place] % (Auto) (0.0-15.0) % Eos % (Auto) (0.0-7.0) % Baso % (Auto) (0.0-1.5) % Neut # (Auto) (1.4-5.7) K/uL Lymph # (Auto) (0.6-2.4) K/uL [place] # (Auto) (0.0-0.8) K/uL Eos # (Auto) (0.0-0.7) K/uL Baso # (Auto) (0.0-0.1) K/uL Nucleated RBC % /100WBC Nucleated RBCs # K/uL Sodium (136-148) mmol/L Potassium (3.5-5.1) mmol/L Chloride (98-107) mmol/L Carbon Dioxide (21.0-32.0) mmol/L BUN (7.0-18.0) mg/dL Creatinine (0.8-1.3) mg/dL Est Cr Clr Drug Dosing mL/min Estimated GFR (MDRD) ml/min Glucose (74-106) mg/dL POC Glucose 187 H (70-99) mg/dL Calcium (8.5-10.1) mg/dL Magnesium (1.8-2.4) mg/dL Total Bilirubin (0.2-1.0) mg/dL AST (15-37) IU/L ALT (14-63) IU/L Alkaline Phosphatase (46-116) U/L Troponin I (0.000-0.056) ng/mL Total Protein (6.4-8.2) g/dL Albumin (3.4-5.0) g/dL Globulin (2.6-4.0) g/dL Albumin/Globulin Ratio (0.9-1.6) Result Diagrams: 09/18/20 05:45 09/18/20 05:45 Sepsis Event Note - Evaluation Sepsis Screening Result: No Definite Risk - Focused Exam Vital Signs: Vital Signs Temp Pulse Resp BP Pulse Ox 09/18/20 04:00 96.7 F L 97 18 155/94 H 100 09/18/20 00:04 98.9 F 93 18 132/82 100 09/17/20 21:10 98.2 F 98 19 118/75 94 L - Problem List & Annotations (1) Diabetic gastroparesis SNOMED Code(s): 778543495 Code(s): E11.43 - TYPE 2 DIABETES W DIABETIC AUTONOMIC (POLY)NEUROPATHY; K31.84 - GASTROPARESIS Status: Acute Priority: Medium Current Visit: No (2) Intractable vomiting SNOMED Code(s): 834289961 Code(s): R11.10 - VOMITING, UNSPECIFIED Status: Acute Current Visit: Yes Qualifiers: Vomiting type: unspecified Nausea presence: with nausea Qualified Code(s): R11.2 - Nausea with vomiting, unspecified (3) Coffee ground emesis SNOMED Code(s): 80822075 Code(s): K92.0 - HEMATEMESIS Status: Acute Current Visit: Yes (4) Pyelonephritis SNOMED Code(s): 32171228 Code(s): N12 - TUBULO-INTERSTITIAL NEPHRITIS, NOT SPCF ACUTE OR CHRONIC Status: Acute Priority: High Current Visit: No (5) Cystitis SNOMED Code(s): 56838755 Code(s): N30.90 - CYSTITIS, UNSPECIFIED WITHOUT HEMATURIA Status: Acute Current Visit: No (6) Abdominal pain SNOMED Code(s): 69182037 Code(s): R10.9 - UNSPECIFIED ABDOMINAL PAIN Status: Acute Current Visit: Yes (7) Anemia SNOMED Code(s): 893307459 Code(s): D64.9 - ANEMIA, UNSPECIFIED Status: Chronic Current Visit: Yes Qualifiers: Anemia type: other cause (8) Chronic abdominal pain SNOMED Code(s): 444110018 Code(s): R10.9 - UNSPECIFIED ABDOMINAL PAIN; G89.29 - OTHER CHRONIC PAIN Status: Chronic Current Visit: Yes (9) Chronic vomiting SNOMED Code(s): 65088938 Code(s): R11.10 - VOMITING, UNSPECIFIED Status: Chronic Current Visit: Yes (10) Hyperglycemia SNOMED Code(s): 00284549 Code(s): R73.9 - HYPERGLYCEMIA, UNSPECIFIED Status: Chronic Current Visit: Yes (11) Itching SNOMED Code(s): 227066786 Code(s): L29.9 - PRURITUS, UNSPECIFIED Status: Chronic Current Visit: Yes (12) Diabetes type 1, uncontrolled SNOMED Code(s): 38547634, 544532789 Code(s): E10.65 - TYPE 1 DIABETES MELLITUS WITH HYPERGLYCEMIA Status: Chronic Priority: Medium Current Visit: Yes Qualifiers: Glycemic state: with hyperglycemia Qualified Code(s): E10.65 - Type 1 diabetes mellitus with hyperglycemia (13) Urinary retention SNOMED Code(s): 155102456 Code(s): R33.9 - RETENTION OF URINE, UNSPECIFIED Status: Chronic Current Visit: No (14) History of neurogenic bladder SNOMED Code(s): 770500330 Code(s): Z87.448 - PERSONAL HISTORY OF OTHER DISEASES OF URINARY SYSTEM Status: Chronic Current Visit: No (15) Hx of opioid abuse SNOMED Code(s): 221807683 Code(s): F11.11 - OPIOID ABUSE, IN REMISSION Status: Chronic Current Visit: No (16) Medical non-compliance SNOMED Code(s): 396467487 Code(s): Z91.19 - PATIENT'S NONCOMPLIANCE W OTH MEDICAL TREATMENT AND REGIMEN Status: Chronic Priority: Medium Current Visit: No (17) Noncompliance with medication regimen SNOMED Code(s): 551704518 Code(s): Z91.14 - PATIENT'S OTHER NONCOMPLIANCE WITH MEDICATION REGIMEN Status: Chronic Current Visit: No - Problem List Review Problem List Initiated/Reviewed/Updated: Yes - My Orders Last 24 Hours: My Active Orders 09/18/20 07:54 Magnesium Sulfate/Water [Magnesium Sulfate in Water 4 GM/100 ML] 4 gm Premix Bag 1 bag IV ONETIME - Plan Plan:: 24-year-old male with history of uncontrolled DM1 admitted for intractable nausea and vomiting and abdominal pain 1. Diabetic gastroparesis and upper GI bleed -Patient continues to have intermittent vomiting and is unable to keep clear liquids down for long periods of time. There is question of patient is actually vomiting or not as nursing or provider staff is not seeing us or witnessed this. -Stop morphine today -I did speak with IRAJ Pereira from [place]. We discussed case at length. He recommended either increasing Reglan to 10 mg every 6 hours or attempting eryt hromycin or a azithromycin to help with gastric motility. He would encourage to monitor EKGs for QT prolongation. He also recommended potentially adding scopolamine patch and if that does not work in the next 2 hours stopping and trying Phenergan rectally. He he feels he likely would not do anything different besides med management at this time but if patient continues to be unable to eat or drink during this week he is available all week in [place]. He would recommend discharging home on either Reglan or erythromycin to do a 3- month rotation when better tolerating diet.. He also recommended to stop all narcotics as this may also be impeding improvement. - Start Erythromycin 300 mg Q8hrs today and monitor progress. Monitor QTc with Q12hr EKGS, patient notified of this. - Stop Reglan. -EGD shows inflammation along the distal esophagus and in the fundus. -Continue Protonix twice daily as well as Carafate 4 times daily and at bedtime -Need to encourage diabetic management and control 2. 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 -We will need urologic consultation as an outpatient -Again need better diabetic management and control 3. Diabetes type 1 -A1c 11.6 -Continue sliding scale -Continue Lantus 15 units daily due to decreased oral intake 4. Opioid addiction - STOP Morphine - Restart Suboxone, reports he is down to 1/2 tab TID with meals. VTE prophylaxis: SCDs and ambulation secondary to recent upper GI bleed GI prophylaxis: On Protonix CODE STATUS: Full code Dispo: 2 to 3 days pending improvement.
[2020-09-18] MEDS ORDERED: diphenhydrAMINE 50 MG/ML SDV IVPUSH PRN (10:37)
[2020-09-18] MEDS ORDERED: Ondansetron 4 MG/2 ML SDV IVPUSH PRN (10:37)
[2020-09-18] MEDS: ERYTHROMYCIN LACTOBIONATE IV SCH ×2 (15:36→22:33)
[2020-09-18] MEDS: SODIUM CHLORIDE 0.9% IV SCH ×2 (15:36→22:33)
[2020-09-18] MEDS: cefTRIAXone 1 GM in Premix Bag 1 BAG IV SCH (17:02)
[2020-09-18] MEDS ORDERED: Bisacodyl 10 MG Supp RECTAL ONE (17:25)
[2020-09-18] MEDS: Insulin Glargine,Human Rec. Analog 100 Units/ML 3 ML Pen SUBCUT SCH (20:45)
[2020-09-18] MEDS ORDERED: 50% Dextrose in Water 50 ML Syringe IVPUSH PRN ×3 (21:18→22:47)
[2020-09-18] MEDS ORDERED: Glucagon,Human Recombinant 1 MG Vial IM PRN ×3 (21:18→22:47)
[2020-09-18] MEDS ORDERED: Insulin Aspart 100 Units/ML 3 ML Pen SUBCUT ONE ×2 (21:20→22:47)
[2020-09-19] MEDS: Sucralfate Suspension 1 GM/10 ML Cup PO SCH ×2 (01:30→06:21)
[2020-09-19] MEDS: ERYTHROMYCIN LACTOBIONATE IV SCH (06:22)
[2020-09-19] MEDS: SODIUM CHLORIDE 0.9% IV SCH (06:22)
[2020-09-19 06:25] LABS: BLOOD UREA NITROGEN,BUN 16 mg/dL (7.0-18.0); CARBON DIOXIDE,CO2 28.3 mmol/L (21.0-32.0); CHLORIDE,CL 106 mmol/L (98-107); GLUCOSE RANDOM 80 mg/dL (74-106); POTASSIUM,K 3.4 mmol/L (3.5-5.1); SODIUM,NA 140 mmol/L (136-148)
[2020-09-19] MEDS: Insulin Aspart 100 Units/ML 3 ML Pen SUBCUT SCH ×2 (07:09→11:37)
[2020-09-19] MEDS ORDERED: Potassium Chloride 20 MEQ Tab.ER PO ONE (07:50)
[2020-09-19 08:12] VITALS: BP 118/72; PULSE 108
[2020-09-19] MEDS: Pantoprazole 40 MG in Sodium Chloride 0.9% 10 ML IV SCH (08:21)
[2020-09-19] MEDS ORDERED: Insulin Glargine,Human Rec. Analog 100 Units/ML 3 ML Pen SUBCUT SCH (09:30)
--- NOTE | 2020-09-19 10:00 | PCM.DCSUM1 ---
Discharge Summary - Hospital Course Brief History: 24-year-old male presents to the emergency room with complaints of nausea, vomiting, abdominal pain and generalized itching for 3 days. Patient admitted for intractable nausea and vomiting and suspected GI bleed. Past medical history to include diabetes type 1, gastroparesis, depression, anxiety, neurogenic bladder. Patient states past history of GI bleeds and GI ulcer. Patient states he has had an EGD performed in [place] but does not recall how long it was. Patient did say that a Doctor there told him that he had gastric ulcers present.. Patient also has history of medication noncompliance. Per documentation the patient has visited the ER numerous times in the past week for similar complaints. Patient states this morning he developed nausea, vomiting, coffee-ground emesis. Patient states that his nausea, vomiting, normal pain have increased in the last 3 days. Patient states his blood sugars have been in 2-300 range at home. Patient also complains of chronic itching. Patient denies any fever, chills, headache, chest pain, shortness of breath or cough. Patient denies constipation, diarrhea, dysuria, hematuria. Patient states generalized abdominal pain, bilateral flank pain, nausea and vomiting to include coffee ground emesis. Patient states he has not been able to eat or drink anything since this morning. Patient states he has been compliant with his Reglan and daily insulin. ED workup to include laboratory findings, white blood cell count 3.95, hemoglobin 9.9, sodium 144, potassium 4.1, chloride 109, BUN 16, creatinine 1.0, glucose elevated at 311, lipase 56. VBG within normal limits. Ultrasound performed 09-12-20 impression gallbladder sludge without evidence of acute cholecystitis. Gallbladder distention noted. Common bile duct within normal limits. CT abdomen pelvis performed 8 impression, changes indicating cystitis and bilateral pyelonephritis, cholelithiasis without bile duct dilatation inflammation within the gallbladder. Diagnosis: Stroke: No - Discharge Data Discharge Date: 09/19/20 Discharge Disposition: Home, Self-Care 01 Condition: Stable - Referral to Home Health Primary Care Physician: Lonny Lomas, DO - Discharge Diagnosis/Problem(s) (1) Diabetic gastroparesis SNOMED Code(s): 196200391 ICD Code: E11.43 - TYPE 2 DIABETES W DIABETIC AUTONOMIC (POLY)NEUROPATHY; K31.84 - GASTROPARESIS Status: Acute Priority: Medium Current Visit: No (2) Intractable vomiting SNOMED Code(s): 940732967 ICD Code: R11.10 - VOMITING, UNSPECIFIED Status: Acute Current Visit: Yes Qualifiers: Vomiting type: unspecified Nausea presence: with nausea Qualified Code(s): R11.2 - Nausea with vomiting, unspecified (3) Coffee ground emesis SNOMED Code(s): 23628229 ICD Code: K92.0 - HEMATEMESIS Status: Acute Current Visit: Yes (4) Pyelonephritis SNOMED Code(s): 88639938 ICD Code: N12 - TUBULO-INTERSTITIAL NEPHRITIS, NOT SPCF ACUTE OR CHRONIC Status: Acute Priority: High Current Visit: No (5) Cystitis SNOMED Code(s): 20029002 ICD Code: N30.90 - CYSTITIS, UNSPECIFIED WITHOUT HEMATURIA Status: Acute Current Visit: No (6) Abdominal pain SNOMED Code(s): 76397666 ICD Code: R10.9 - UNSPECIFIED ABDOMINAL PAIN Status: Acute Current Visit: Yes (7) Anemia SNOMED Code(s): 762272804 ICD Code: D64.9 - ANEMIA, UNSPECIFIED Status: Chronic Current Visit: Yes Qualifiers: Anemia type: other cause (8) Chronic abdominal pain SNOMED Code(s): 664633403 ICD Code: R10.9 - UNSPECIFIED ABDOMINAL PAIN; G89.29 - OTHER CHRONIC PAIN Status: Chronic Current Visit: Yes (9) Chronic vomiting SNOMED Code(s): 99380111 ICD Code: R11.10 - VOMITING, UNSPECIFIED Status: Chronic Current Visit: Yes (10) Hyperglycemia SNOMED Code(s): 51034162 ICD Code: R73.9 - HYPERGLYCEMIA, UNSPECIFIED Status: Chronic Current Visit: Yes (11) Itching SNOMED Code(s): 789284794 ICD Code: L29.9 - PRURITUS, UNSPECIFIED Status: Chronic Current Visit: Yes (12) Diabetes type 1, uncontrolled SNOMED Code(s): 76351662, 226639714 ICD Code: E10.65 - TYPE 1 DIABETES MELLITUS WITH HYPERGLYCEMIA Status: Chronic Priority: Medium Current Visit: Yes Qualifiers: Glycemic state: with hyperglycemia Qualified Code(s): E10.65 - Type 1 diabetes mellitus with hyperglycemia (13) Urinary retention SNOMED Code(s): 284528401 ICD Code: R33.9 - RETENTION OF URINE, UNSPECIFIED Status: Chronic Current Visit: No (14) History of neurogenic bladder SNOMED Code(s): 167743697 ICD Code: Z87.448 - PERSONAL HISTORY OF OTHER DISEASES OF URINARY SYSTEM Status: Chronic Current Visit: No (15) Hx of opioid abuse SNOMED Code(s): 739449379 ICD Code: F11.11 - OPIOID ABUSE, IN REMISSION Status: Chronic Current Visit: No (16) Medical non-compliance SNOMED Code(s): 730543206 ICD Code: Z91.19 - PATIENT'S NONCOMPLIANCE W OTH MEDICAL TREATMENT AND REGIMEN Status: Chronic Priority: Medium Current Visit: No (17) Noncompliance with medication regimen SNOMED Code(s): 339387014 ICD Code: Z91.14 - PATIENT'S OTHER NONCOMPLIANCE WITH MEDICATION REGIMEN Status: Chronic Current Visit: No - Patient Summary/Data Operative Procedure(s) Performed: Diagnostic EGD and biopsy Hospital Course: Admission diagnoses Intractable nausea vomiting Abdominal pain Diabetic gastroparesis Upper GI bleeding Urinary retention pyelonephritis Discharge diagnoses Intractable nausea and vomiting resolved Abdominal pain resolved Diabetic gastroparesis, improved Upper GI bleeding improved Esophagitis and gastritis Pyelonephritis Urinary retention improved Other PMH Medical noncompliance Diabetes type 1, uncontrolled A1c 11.5 History of opioid abuse currently on Suboxone History neurogenic bladder with urinary retention Anemia of chronic disease Lino was admitted secondary to acute onset of intractable nausea and vomiting along with abdominal pain. He was also noted to have bloody emesis with mild dip in hemoglobin. Dr. Richardson general surgeon was consulted who took patient for EGD and found esophagitis and gastritis. Patient was treated with PPI along with Carafate. Patient continued to have abdominal pain with nausea and vomiting likely secondary to diabetic gastroparesis. Patient started on Reglan 5 mg IV every 6 hours with no improvement of symptoms. Suboxone was held he was treated with morphine but this likely caused some level of narcotic withdrawal. Patient also had itching secondary to narcotic withdrawal he was started on Benadryl and subsequently had worsening of urinary retention. Clements catheter was placed. On 09/19/2019 1 GI specialist consulted for recommendations regarding gastroparesis which was not improving with Reglan. Morphine and Benadryl were stopped at this time. Patient was started on erythromycin 300 mg IV 3 times daily. By the evening patient was hungry and eating clear liquid diet and tolerating this well. Patient was advanced to soft diet and continue to keep this down. Patient had no further abdominal pain and feeling much improved. He was restarted on his Suboxone as well. Today he continues to feel much improved and is eager to be discharged home. He was counseled on his new medication of erythromycin and not to take this in conjunction with his Reglan or Zofran. He will likely need to be on a rotation of Reglan and erythromycin at home to keep gastroparesis at bay. He will have follow-up Dr. Lora GI specialist in [place] who he has seen in the past. Patient was also counseled heavily on improved diabetic control to decrease exacerbations of gastroparesis as well as other complications from uncontrolled diabetes. He will be discharged home with erythromycin 200 mg 3 times daily with meals for 3 weeks. For his esophagitis and gastritis he will be continued on Protonix 40 mg twice daily along with Carafate 4 times a day with meals and at bedtime x1 month. For patient's pyelonephritis he was treated with Rocephin for a total of 6 days. This is likely secondary to chronic urinary retention and neurogenic bladder. He was counseled that he needs to stay away from any Benadryl or anticholinergics that would cause urinary retention. He verbalized understanding. He was counseled on self cathing which he has been counseled in the past by urology on. He should be self cathing if he has not voided in 8 hours though he does report he voids at home but sometimes longer intervals in between. He will be continued on Bactrim DS 1 tab twice daily for total of 7 more days equaling 14-day treatment for pyelonephritis. He is able to void per self and will be discharged home with intermittent cath instructions along with intermittent cath available at a medical supply store Figure [employer]. Small ulceration noted to left ankle which has improved since prior to admission. Patient counseled on keeping this clean dry and covered changing dressing daily. He is to wash this with soap and water and monitor closely for signs of infection including fevers chills or redness or drainage from the site. Regarding diabetes he is to continue his Lantus 15 mg twice daily. He is also continue mealtime insulin dosing which he does 5 units with each meal and sliding scale per what his blood sugar reports. He does have continuous glucose monitor that is in place which he is supposed to replace today. He reports he follows with Dr. Lomas in [facility] in regards to his medic management as well as Suboxone therapy. He reports he sees them next on the . We will be discharged home today. He is to follow-up with Dr. Lomas PCP in the next 10 days. He will also have follow-up with urology as well as GI specialist. He is to return to the ER clinic if concerns should arise sooner. - Patient Instructions Diet: Diabetic Diet, GI Soft/Low Residue/Low Fiber Activity: As Tolerated Driving: Do Not Drive Showering/Bathing: May Shower Notify Provider of: Fever, Increased Pain, Swelling and Redness, Drainage, Nausea and/or Vomiting Other/Special Instructions: Self cath as needed if you have not urinated in 8 hours. Continue to work on improving diabetic controll to lower A1c to help improve overall health and risk of infection or worsening stomach issues. Monitor wound to ankle, keep covered and clean daily with soap and water. Do not take Reglan or Zofran while taking Erythromycin. - Discharge Plan *PRESCRIPTION DRUG MONITORING PROGRAM REVIEWED*: Not Applicable *COPY OF PRESCRIPTION DRUG MONITORING REPORT IN PATIENT HANY: Not Applicable Prescriptions/Med Rec: Sulfamethoxazole/Trimethoprim [Bactrim Ds Tablet] 1 each PO BID #14 tablet Sucralfate [Carafate] 1 gm PO QIDACANDBED #120 tab Erythromycin Ethylsuccinate 200 mg PO TIDMEALS #315 ml Pantoprazole Sodium [Protonix] 40 mg PO BIDMEALS #60 tablet. Home Medications: Home Meds Insulin Aspart [NovoLOG] 10 - 15 unit SUBCUT TIDAC 08/22/20 [History] Insulin Glarg,Human.Rec.Analog [Lantus Solostar] 15 units SUBCUT BID 08/22/20 [History] Buprenorphine HCl/Naloxone HCl [Buprenorphine-Nalox 8-2 mg Tab] 3 tab SL DAILY 09/15/20 [History] Erythromycin Ethylsuccinate 200 mg PO TIDMEALS #315 ml 09/19/20 [Rx] Pantoprazole Sodium [Protonix] 40 mg PO BIDMEALS #60 tablet. 09/19/20 [Rx] Sucralfate [Carafate] 1 gm PO QIDACANDBED #120 tab 09/19/20 [Rx] Sulfamethoxazole/Trimethoprim [Bactrim Ds Tablet] 1 each PO BID #14 tablet 09/19/20 [Rx] Oxygen Therapy Mode: Room Air Patient Handouts: Clean Intermittent Catheterization, Male, Diabetic Neuropathy, Gastroparesis, Neurogenic Bladder Referrals: Jacinta Lora MD [Ordering Only Provider] - 11/28/20 3:00 pm Amanda Cormier PA [Physician Melter Assistant] - 09/27/20 3:45 pm Curtis Ivey MD [Ordering Only Provider] - 12/19/20 1:30 pm - Discharge Summary/Plan Comment DC Time >30 min.: Yes (extensive counseling on meds and at home care >30 min) - Patient Data Vitals - Most Recent: Last Vital Signs Temp 98 F 09/19/20 08:11 Pulse 108 H 09/19/20 08:11 Resp 16 09/19/20 08:11 BP 118/72 09/19/20 08:11 Pulse Ox 100 09/19/20 08:11 Weight - Most Recent: 57.878 kg I&O - Last 24 hours: Intake & Output 09/18/20 09/19/20 09/19/20 22:59 06:59 14:59 Intake Total 360 1250 100 Output Total 1100 1250 Balance -740 0 100 Lab Results - Last 24 hrs: Laboratory Results - last 24 hr 09/18/20 09/18/20 09/18/20 Range/Units 12:08 16:39 20:40 WBC (4.0-11.0) K/uL RBC (4.50-5.90) M/uL Hgb (13.0-17.0) g/dL Hct (38.0-50.0) % MCV (80.0-98.0) fL MCH (27.0-32.0) pg MCHC (31.0-37.0) g/dL RDW Std Deviation (28.0-62.0) fl RDW Coeff of Erika (11.0-15.0) % Plt Count (150-400) K/uL MPV (7.40-12.00) fL Neut % (Auto) (48.0-80.0) % Lymph % (Auto) (16.0-40.0) % [place] % (Auto) (0.0-15.0) % Eos % (Auto) (0.0-7.0) % Baso % (Auto) (0.0-1.5) % Neut # (Auto) (1.4-5.7) K/uL Lymph # (Auto) (0.6-2.4) K/uL [place] # (Auto) (0.0-0.8) K/uL Eos # (Auto) (0.0-0.7) K/uL Baso # (Auto) (0.0-0.1) K/uL Nucleated RBC % /100WBC Nucleated RBCs # K/uL Sodium (136-148) mmol/L Potassium (3.5-5.1) mmol/L Chloride (98-107) mmol/L Carbon Dioxide (21.0-32.0) mmol/L BUN (7.0-18.0) mg/dL Creatinine (0.8-1.3) mg/dL Est Cr Clr Drug Dosing mL/min Estimated GFR (MDRD) ml/min Glucose (74-106) mg/dL POC Glucose 103 H 177 H 443 H* (70-99) mg/dL Calcium (8.5-10.1) mg/dL Phosphorus (2.6-4.7) mg/dL Magnesium (1.8-2.4) mg/dL 09/18/20 09/19/20 09/19/20 Range/Units 22:27 01:26 05:30 WBC 6.60 (4.0-11.0) K/uL RBC 3.61 L (4.50-5.90) M/uL Hgb 9.5 L (13.0-17.0) g/dL Hct 28.2 L (38.0-50.0) % MCV 78.1 L (80.0-98.0) fL MCH 26.3 L (27.0-32.0) pg MCHC 33.7 (31.0-37.0) g/dL RDW Std Deviation 41.2 (28.0-62.0) fl RDW Coeff of Erika 15 (11.0-15.0) % Plt Count 217 (150-400) K/uL MPV 9.40 (7.40-12.00) fL Neut % (Auto) 53.7 (48.0-80.0) % Lymph % (Auto) 36.8 (16.0-40.0) % [place] % (Auto) 5.0 (0.0-15.0) % Eos % (Auto) 4.2 (0.0-7.0) % Baso % (Auto) 0.3 (0.0-1.5) % Neut # (Auto) 3.5 (1.4-5.7) K/uL Lymph # (Auto) 2.4 (0.6-2.4) K/uL [place] # (Auto) 0.3 (0.0-0.8) K/uL Eos # (Auto) 0.3 (0.0-0.7) K/uL Baso # (Auto) 0.0 (0.0-0.1) K/uL Nucleated RBC % 0.0 /100WBC Nucleated RBCs # 0 K/uL Sodium (136-148) mmol/L Potassium (3.5-5.1) mmol/L Chloride (98-107) mmol/L Carbon Dioxide (21.0-32.0) mmol/L BUN (7.0-18.0) mg/dL Creatinine (0.8-1.3) mg/dL Est Cr Clr Drug Dosing mL/min Estimated GFR (MDRD) ml/min Glucose (74-106) mg/dL POC Glucose 421 H* 181 H (70-99) mg/dL Calcium (8.5-10.1) mg/dL Phosphorus (2.6-4.7) mg/dL Magnesium (1.8-2.4) mg/dL 09/19/20 09/19/20 09/19/20 Range/Units 05:30 06:17 07:04 WBC (4.0-11.0) K/uL RBC (4.50-5.90) M/uL Hgb (13.0-17.0) g/dL Hct (38.0-50.0) % MCV (80.0-98.0) fL MCH (27.0-32.0) pg MCHC (31.0-37.0) g/dL RDW Std Deviation (28.0-62.0) fl RDW Coeff of Erika (11.0-15.0) % Plt Count (150-400) K/uL MPV (7.40-12.00) fL Neut % (Auto) (48.0-80.0) % Lymph % (Auto) (16.0-40.0) % [place] % (Auto) (0.0-15.0) % Eos % (Auto) (0.0-7.0) % Baso % (Auto) (0.0-1.5) % Neut # (Auto) (1.4-5.7) K/uL Lymph # (Auto) (0.6-2.4) K/uL [place] # (Auto) (0.0-0.8) K/uL Eos # (Auto) (0.0-0.7) K/uL Baso # (Auto) (0.0-0.1) K/uL Nucleated RBC % /100WBC Nucleated RBCs # K/uL Sodium 140 (136-148) mmol/L Potassium 3.4 L (3.5-5.1) mmol/L Chloride 106 (98-107) mmol/L Carbon Dioxide 28.3 (21.0-32.0) mmol/L BUN 16 (7.0-18.0) mg/dL Creatinine 0.9 (0.8-1.3) mg/dL Est Cr Clr Drug Dosing 105.40 mL/min Estimated GFR (MDRD) > 60.0 ml/min Glucose 80 (74-106) mg/dL POC Glucose 58 L 132 H (70-99) mg/dL Calcium 7.7 L (8.5-10.1) mg/dL Phosphorus 3.5 (2.6-4.7) mg/dL Magnesium 1.9 (1.8-2.4) mg/dL Med Orders - Current: Current Medications Dextrose/Water (50% Dextrose In Water 50 Ml Syringe) 50 ml IVPUSH ASDIRECTED PRN PRN Reason: Hypoglycemia Glucagon (Glucagon,Human Recombinant 1 Mg Vial) 1 mg IM ASDIRECTED PRN PRN Reason: Hypoglycemia Pantoprazole Sodium 40 mg/ (Sodium Chloride) 10 mls @ 300 mls/hr IV Q12HR [facility] Last Admin: 09/19/20 08:21 Dose: 300 mls/hr Documented by: Lactated Ringer's (Ringers, Lactated) 1,000 mls @ 125 mls/hr IV ASDIRECTED [facility] Last Admin: 09/18/20 21:30 Dose: 125 mls/hr Documented by: Erythromycin Lactobionate 300 (mg/ Sodium Chloride) 100 mls @ 133.333 mls/hr IV Q8HR [facility] Last Admin: 09/19/20 06:22 Dose: 133.333 mls/hr Documented by: Ceftriaxone Sodium/Dextrose 1 (gm/ Premix) 50 mls @ 100 mls/hr IV Q24H [facility] Insulin Aspart (Insulin Aspart 100 Units/Ml 3 Ml Pen) 0 unit SUBCUT TIDAC [facility]; Protocol Last Admin: 09/19/20 07:09 Dose: Not Given Documented by: Insulin Glargine (Insulin Glargine,Human Rec. Analog 100 Units/Ml 3 Ml Pen) 15 units SUBCUT BEDTIME [facility] Last Admin: 09/18/20 20:45 Dose: 15 units Documented by: Insulin Glargine (Insulin Glargine,Human Rec. Analog 100 Units/Ml 3 Ml Pen) 15 units SUBCUT DAILY [facility] Last Admin: 09/19/20 09:49 Dose: 15 unit Documented by: Ondansetron HCl (Ondansetron 4 Mg/2 Ml Sdv) 4 mg IVPUSH Q8H PRN PRN Reason: Nausea/Vomiting Buprenorphine Hcl/Naloxone Hcl 1 Each Tab.Subl 0.5 each .XX TIDMEALS [facility] Last Admin: 09/19/20 07:09 Dose: 0.5 each Documented by: Sucralfate (Sucralfate Suspension 1 Gm/10 Ml Cup) 1 gm PO Q6H [facility] Last Admin: 09/19/20 06:21 Dose: 1 gm Documented by: Discontinued Medications Bisacodyl (Bisacodyl 10 Mg Supp) 10 mg RECTAL ONETIME ONE Stop: 09/18/20 17:26 Last Admin: 09/18/20 17:55 Dose: 10 mg Documented by: Al Hydroxide/Mg Hydroxide 15 (ml/ Lidocaine HCl 5 ml) 0 ml PO ONETIME ONE Stop: 09/13/20 15:57 Last Admin: 09/13/20 16:07 Dose: 20 each Documented by: Dextrose/Water (50% Dextrose In Water 50 Ml Syringe) 50 ml IVPUSH ASDIRECTED PRN PRN Reason: Hypoglycemia Dextrose/Water (50% Dextrose In Water 50 Ml Syringe) 50 ml IVPUSH ASDIRECTED PRN PRN Reason: Hypoglycemia Dextrose/Water (50% Dextrose In Water 50 Ml Syringe) 50 ml IVPUSH ASDIRECTED PRN PRN Reason: Hypoglycemia Dextrose/Water (50% Dextrose In Water 50 Ml Syringe) 50 ml IVPUSH ASDIRECTED PRN PRN Reason: Hypoglycemia Diphenhydramine HCl (Diphenhydramine 50 Mg/Ml Sdv) 50 mg IVPUSH ONETIME ONE Stop: 09/13/20 12:54 Last Admin: 09/13/20 13:00 Dose: 50 mg Documented by: Diphenhydramine HCl (Diphenhydramine 50 Mg/Ml Sdv) 25 mg IVPUSH Q6H PRN PRN Reason: Itching Last Admin: 09/18/20 10:21 Dose: 25 mg Documented by: Diphenhydramine HCl (Diphenhydramine 50 Mg/Ml Sdv) 25 mg IVPUSH Q12H PRN PRN Reason: Itching Fentanyl (Fentanyl 100 Mcg/2 Ml Sdv) Confirm Administered Dose 100 mcg .ROUTE .STK-MED ONE Stop: 09/15/20 06:59 Glucagon (Glucagon,Human Recombinant 1 Mg Vial) 1 mg IM ASDIRECTED PRN PRN Reason: Hypoglycemia Glucagon (Glucagon,Human Recombinant 1 Mg Vial) 1 mg IM ASDIRECTED PRN PRN Reason: Hypoglycemia Glucagon (Glucagon,Human Recombinant 1 Mg Vial) 1 mg IM ASDIRECTED PRN PRN Reason: Hypoglycemia Glucagon (Glucagon,Human Recombinant 1 Mg Vial) 1 mg IM ASDIRECTED PRN PRN Reason: Hypoglycemia Haloperidol Lactate (Haloperidol Lactate 5 Mg/Ml Sdv) 1 mg IM ONETIME ONE Stop: 09/13/20 17:42 Last Admin: 09/13/20 19:13 Dose: Not Given Documented by: Haloperidol Lactate (Haloperidol Lactate 5 Mg/Ml Sdv) 2 mg IM ONETIME ONE Stop: 09/13/20 22:37 Last Admin: 09/13/20 22:53 Dose: 2 mg Documented by: Haloperidol Lactate (Haloperidol Lactate 5 Mg/Ml Sdv) 1 mg IM ONETIME ONE Stop: 09/15/20 20:31 Last Admin: 09/15/20 21:42 Dose: 1 mg Documented by: Haloperidol Lactate (Haloperidol Lactate 5 Mg/Ml Sdv) 2 mg IM ONETIME ONE Stop: 09/16/20 13:31 Last Admin: 09/16/20 14:04 Dose: 2 mg Documented by: Sodium Chloride (Normal Saline) 1,000 mls @ 999 mls/hr IV STAT ONE Stop: 09/13/20 13:18 Last Admin: 09/13/20 12:58 Dose: 999 mls/hr Documented by: Sodium Chloride (Normal Saline) 1,000 mls @ 999 mls/hr IV STAT ONE Stop: 09/13/20 15:27 Last Admin: 09/13/20 14:46 Dose: 999 mls/hr Documented by: Pantoprazole Sodium 80 mg/ (Sodium Chloride) 20 mls @ 420 mls/hr IVPUSH ONETIME ONE Stop: 09/13/20 14:34 Last Admin: 09/13/20 14:50 Dose: 420 mls/hr Documented by: Pantoprazole Sodium 40 mg/ (Sodium Chloride) 10 mls @ 300 mls/hr IV Q24H [facility] Sodium Chloride (Normal Saline) 1,000 mls @ 125 mls/hr IV ASDIRECTED [facility] Last Admin: 09/13/20 17:39 Dose: 125 mls/hr Documented by: Ceftriaxone Sodium/Dextrose 1 (gm/ Premix) 50 mls @ 100 mls/hr IV Q24H [facility] Last Admin: 09/18/20 17:02 Dose: 100 mls/hr Documented by: Dextrose/Lactated Ringer's (Dextrose 5%-Lactated Ringers) 1,000 mls @ 125 mls/hr IV ASDIRECTED [facility] Last Infusion: 09/17/20 17:00 Dose: 0 mls/hr Documented by: Potassium Chloride 40 meq/ (Premix) 100 mls @ 25 mls/hr IV ONETIME ONE Stop: 09/14/20 12:59 Last Admin: 09/14/20 09:06 Dose: 25 mls/hr Documented by: Magnesium Sulfate 2 gm/ Premix 50 mls @ 12.5 mls/hr IV ONETIME ONE Stop: 09/15/20 11:37 Last Admin: 09/15/20 08:37 Dose: 12.5 mls/hr Documented by: Potassium Chloride 20 meq/ (Premix) 50 mls @ 25 mls/hr IV ONETIME ONE Stop: 09/15/20 09:38 Last Admin: 09/15/20 08:51 Dose: Not Given Documented by: Potassium Chloride 40 meq/ (Premix) 100 mls @ 25 mls/hr IV ONETIME ONE Stop: 09/15/20 11:38 Last Admin: 09/15/20 13:05 Dose: Not Given Documented by: Potassium Chloride 40 meq/ (Premix) 100 mls @ 25 mls/hr IV ONETIME ONE Stop: 09/15/20 16:59 Last Admin: 09/15/20 13:00 Dose: 25 mls/hr Documented by: Magnesium Sulfate 2 gm/ Premix 50 mls @ 12.5 mls/hr IV ONETIME ONE Stop: 09/16/20 11:42 Last Admin: 09/16/20 09:20 Dose: 12.5 mls/hr Documented by: Potassium Chloride 40 meq/ (Premix) 100 mls @ 25 mls/hr IV ONETIME ONE Stop: 09/16/20 11:43 Last Admin: 09/16/20 12:46 Dose: Not Given Documented by: Potassium Chloride 40 meq/ (Premix) 100 mls @ 25 mls/hr IV ONETIME ONE Stop: 09/16/20 16:59 Last Admin: 09/16/20 12:32 Dose: 25 mls/hr Documented by: Magnesium Sulfate 4 gm/ Premix 100 mls @ 33.333 mls/hr IV ONETIME ONE Stop: 09/18/20 10:53 Last Admin: 09/18/20 08:54 Dose: 33.333 mls/hr Documented by: Insulin Aspart (Insulin Aspart 100 Units/Ml 3 Ml Pen) 0 unit SUBCUT TIDAC [facility]; Protocol Last Admin: 09/13/20 17:47 Dose: Not Given Documented by: Insulin Aspart (Insulin Aspart 100 Units/Ml 3 Ml Pen) 0 unit SUBCUT Q6H [facility]; Protocol Last Admin: 09/18/20 17:00 Dose: 1 unit Documented by: Insulin Aspart (Insulin Aspart 100 Units/Ml 3 Ml Pen) 8 unit SUBCUT ONETIME ONE Stop: 09/18/20 21:21 Last Admin: 09/18/20 21:20 Dose: 8 unit Documented by: Insulin Aspart (Insulin Aspart 100 Units/Ml 3 Ml Pen) 10 unit SUBCUT ONETIME ONE Stop: 09/18/20 22:48 Last Admin: 09/18/20 23:00 Dose: 10 units Documented by: Insulin Glargine (Insulin Glargine,Human Rec. Analog 100 Units/Ml 3 Ml Pen) 15 units SUBCUT BID [facility] Last Admin: 09/13/20 21:17 Dose: 15 units Documented by: Insulin Human Regular (Insulin Regular, Human 100 Units/Ml 10 Ml Vial) 6 unit SUBCUT ONETIME ONE; Protocol Stop: 09/13/20 13:41 Last Admin: 09/13/20 13:56 Dose: 6 units Documented by: Ketorolac Tromethamine (Ketorolac 15 Mg/Ml Sdv) 15 mg IVPUSH NOW STA Stop: 09/13/20 12:54 Last Admin: 09/13/20 13:00 Dose: 15 mg Documented by: Lidocaine HCl (Lidocaine 1% 5 Ml Sdv) Confirm Administered Dose 5 ml .ROUTE .STK-MED ONE Stop: 09/15/20 06:59 Lorazepam (Lorazepam 2 Mg/Ml Sdv) 1 mg IVPUSH ONETIME ONE Stop: 09/13/20 17:48 Last Admin: 09/13/20 19:13 Dose: Not Given Documented by: Lorazepam (Lorazepam 2 Mg/Ml Sdv) 0.5 mg IVPUSH ONETIME ONE Stop: 09/16/20 13:31 Last Admin: 09/16/20 14:05 Dose: 0.5 mg Documented by: Metoclopramide HCl (Metoclopramide 10 Mg/2 Ml Sdv) 10 mg IV ONETIME ONE Stop: 09/13/20 14:28 Last Admin: 09/13/20 14:45 Dose: 10 mg Documented by: Metoclopramide HCl (Metoclopramide 10 Mg/2 Ml Sdv) 5 mg IVPUSH Q6H [facility] Last Admin: 09/13/20 18:16 Dose: Not Given Documented by: Metoclopramide HCl (Metoclopramide 10 Mg/2 Ml Sdv) 5 mg IVPUSH Q6H [facility] Last Admin: 09/18/20 08:55 Dose: 5 mg Documented by: Morphine Sulfate (Morphine 2 Mg/Ml Syringe) 2 mg IVPUSH Q4H PRN PRN Reason: Pain Last Admin: 09/18/20 06:40 Dose: 2 mg Documented by: Ondansetron HCl (Ondansetron 4 Mg/2 Ml Sdv) 4 mg IVPUSH ONETIME ONE Stop: 09/13/20 12:19 Last Admin: 09/13/20 12:59 Dose: 4 mg Documented by: Ondansetron HCl (Ondansetron 4 Mg/2 Ml Sdv) 4 mg IVPUSH Q6H PRN PRN Reason: Nausea/Vomiting Ondansetron HCl (Ondansetron 4 Mg/2 Ml Sdv) 4 mg IVPUSH Q6H PRN PRN Reason: Nausea/Vomiting Ondansetron HCl (Ondansetron 4 Mg/2 Ml Sdv) 4 mg IVPUSH Q4H PRN PRN Reason: Nausea/Vomiting Last Admin: 09/18/20 06:39 Dose: 4 mg Documented by: Ondansetron HCl (Ondansetron 4 Mg/2 Ml Sdv) Confirm Administered Dose 4 mg .ROUTE .STK-MED ONE Stop: 09/15/20 07:53 Potassium Chloride (Potassium Chloride 20 Meq Tab.Er) 40 meq PO ONETIME ONE Stop: 09/18/20 07:55 Last Admin: 09/18/20 08:56 Dose: 40 meq Documented by: Potassium Chloride (Potassium Chloride 20 Meq Tab.Er) 40 meq PO ONETIME ONE Stop: 09/19/20 07:51 Last Admin: 09/19/20 08:21 Dose: 40 meq Documented by: Propofol (Propofol 200 Mg/20 Ml Sdv) Confirm Administered Dose 200 mg .ROUTE .STK-MED ONE Stop: 09/15/20 06:59 Sucralfate (Sucralfate Suspension 1 Gm/10 Ml Cup) 1 gm PO Q6H AUGUSTINE Last Admin: 09/14/20 00:51 Dose: Not Given Documented by:
[2020-09-19] MEDS ORDERED: cefTRIAXone 1 GM in Premix Bag 1 BAG IV SCH (11:00)
--- NOTE | 2020-09-21 14:24 | PCM.EKG ---
#1 Interpretation EKG Date: 09/18/20 Rhythm: NSR Rate (Beats/Min): 91 P-Wave: Present QRS: Normal ST-T: Normal #2 Interpretation EKG Date: 09/19/20 Rhythm: NSR Rate (Beats/Min): 94 P-Wave: Present QRS: Normal
== END 2020-09-19 11:21 | disposition home or self-care (01) | DRG 74 ==
LOC: MW.ED 12:00 → MW.MS 15:39 → OBSVTOIN 09-16 14:18 → MW.MS 09-16 15:49
PROVIDERS: ADMIT Student in an Organized Health Care Education/Training Program; ATTEND Student in an Organized Health Care Education/Training Program
PROC: 0DB78ZX Excision of Stomach, Pylorus, Via Natural or Artificial Opening Endoscopic, Diagnostic (ICD-10-PCS; principal; 2020-09-13)
DX: E10.43 Type 1 diabetes mellitus with diabetic autonomic (poly)neuropathy (principal); K92.0 Hematemesis; N12 Tubulo-interstitial nephritis, not specified as acute or chronic; K31.84 Gastroparesis; K92.2 Gastrointestinal hemorrhage, unspecified; F32.9 Major depressive disorder, single episode, unspecified; F41.9 Anxiety disorder, unspecified; N30.90 Cystitis, unspecified without hematuria; D64.9 Anemia, unspecified; G89.29 Other chronic pain; R10.9 Unspecified abdominal pain; L29.9 Pruritus, unspecified; Z88.1 Allergy status to other antibiotic agents; Z91.013 Allergy to seafood; E10.65 Type 1 diabetes mellitus with hyperglycemia; R33.9 Retention of urine, unspecified; Z87.891 Personal history of nicotine dependence; Z20.822 Contact with and (suspected) exposure to COVID-19; F11.11 Opioid abuse, in remission; N31.9 Neuromuscular dysfunction of bladder, unspecified; K29.70 Gastritis, unspecified, without bleeding; K20.90 Esophagitis, unspecified without bleeding; Z87.448 Personal history of other diseases of urinary system; Z91.19 Patient's noncompliance with other medical treatment and regimen; Z91.14 Patient's other noncompliance with medication regimen; Z79.4 Long term (current) use of insulin; Z79.899 Other long term (current) drug therapy; K52.9 Noninfective gastroenteritis and colitis, unspecified
CPT/HCPCS: 36415 ×4; 43239; 51701; 51702 ×5; 51798; 80048 ×3; 80053; 81001; 82803; 82947 ×21; 83036; 83690; 83735 ×4; 84100 ×2; 85014 ×2; 85018 ×2; 85025 ×4; 87635; 96374; 96375; 99284; A9270 ×13; C9113 ×6; J0696 ×3; J1200 ×10; J1630 ×3; J1815 ×2; J1885; J2060; J2270 ×11; J2405 ×6; J2704; J2765 ×13; J3010; J3475 ×2; J3480 ×3; J7030 ×3; J7120 ×5; J7121 ×3; 00731; 71046; 71046-26; 84484; 88305; 88342; 93005; 96365; 96366; 96367; 96372; 96376; G0378; J1364; U0002

== ENCOUNTER 2020-10-14 19:48 | Emergency (ER) | payer MEDICAID ==
[2020-10-14] MEDS ORDERED: Sodium Chloride 0.9% 10 ML Syringe FLUSH PRN (20:39)
[2020-10-14] MEDS ORDERED: Sodium Chloride 0.9% 2.5 ML Syringe FLUSH PRN (20:39)
[2020-10-14] MEDS ORDERED: Sodium Chloride 0.9% 1,000 ML IV ONE (20:39)
[2020-10-14] MEDS ORDERED: Ondansetron 4 MG/2 ML SDV IVPUSH ONE (20:40)
[2020-10-14] MEDS ORDERED: diphenhydrAMINE 50 MG/ML SDV IVPUSH ONE (20:46)
[2020-10-14] MEDS ORDERED: methylPREDNISolone Sodium Succinate 125 MG/2 ML SDV IVPUSH ONE (20:46)
--- NOTE | 2020-10-14 21:29 | EDM.PDOC ---
ED HPI GENERAL MEDICAL PROBLEM - General Chief Complaint: General Stated Complaint: POSSIBLE DKA, ALLERGIC REACTION Time Seen by Provider: 10/14/20 20:42 - History of Present Illness INITIAL COMMENTS - FREE TEXT/NARRATIVE: HISTORY AND PHYSICAL: History of present illness: This is a 25-year-old gentleman with history significant for diabetes, diabetic ketoacidosis, seafood allergy, kidney injury secondary to his diabetes, who presents ER today secondary to nausea, vomiting, abdominal pain shortly after eating a casserole that had seafood in it that his mother had cooked. Patient reports that he took out a casserole that his mother had baked did not realize that there was tuna in it. Shortly after eating it he start developing some abdominal discomfort with associated itching throughout his body. Patient denies any recent fevers, shakes, chills. Patient denies any diarrhea. Patient reports that he has been having episodes of vomiting since eating the food. Patient denies any melena or bright red blood per rectum. Patient denies any polyuria, polydipsia, polyphagia, hematuria, dysuria, frequency, urgency. Patient reports that his symptoms today are dissimilar to his prior DKA symptoms. He reports that his blood sugars have been well controlled and he has been compliant with his insulin. Patient denies any shortness of breath or swelling in his throat. Patient denies any wheezing or stridor. Review of systems: As per history of present illness and below otherwise all systems reviewed and negative. Past medical history: As per history of present illness and as reviewed below otherwise noncon tributory. Surgical history: As per history of present illness and as reviewed below otherwise noncontributory. Social history: No reported history of drug abuse. Family history: As per history of present illness and as reviewed below otherwise noncontributory. Physical exam: This patient was seen and evaluated during the 2019 SARS-CoV-2 novel coronavirus pandemic period. Community viral transmission is ongoing at time of this encounter and the emergency department is operating under pandemic response procedures. Constitutional: Patient is oriented to person, place, and time. Appears well- developed and well-nourished. No distress. HEENT: Moist mucous membranes Head: Normocephalic and atraumatic Eyes: Right eye exhibits no discharge. Left eye exhibits no discharge. No scleral icterus Neck: Normal range of motion. No tracheal deviation present. Cardiovascular: Normal rate and regular rhythm. Pulmonary: Effort normal, no respiratory distress. Abd: Soft, nondistended, no rebound/guarding, no psoas or obturator signs, no tenderness at Mcberney's point, no Tyler's sign. Pt does not present with an exam that would be consistent with an acute surgical abdomen at this time Musculoskeletal: Normal range of motion Neurologic: Alert and oriented to person, place and time. Skin: [place], warm and dry. No rash identified. Oropharynx is clear without evidence of stridor or pharyngeal edema. Psychiatric: Normal mood and affect. Behavior is normal. Judgment and thought content normal. Nursing note and vital signs have been reviewed Diagnostics: [] Therapeutics: [] Assessment and plan: 25-year-old gentleman with history significant for DKA who presents ER today secondary to nausea and vomiting after eating seafood that was in the casserole that his mother had baked. Patient's labs do not appear to be consistent with DKA at this time. Patient VBG reveals no acidosis and his bicarb levels within normal limits. Patient will be given a liter of normal saline, Zofran, Benadryl, Solu-Medrol to assist with his allergic reaction and his nausea. Patient's labs are all within normal limits with negative ketones, no anion gap, no acidosis, normal bicarb level. Patient does not appear to be in DKA at this time. Patient's abdominal pain is most likely consistent with his eating seafood and having allergic reaction to it. Patient does feel slightly better after taking the Benadryl and Solu-Medrol. Patient be discharged home with a prescription for Benadryl and prednisone consistent with his allergic reaction to seafood and instructed not to eat anything else with seafood in it. Patient also be given a prescription for Zofran to help with his nausea as well. Reassessment at the time of disposition demonstrates that the patient is in no acute distress. The patient has remained stable throughout the entire ED visit and is without objective evidence for acute process requiring urgent intervention or hospitalization. The patient is stable for discharge, counseling is provided as documented above, discussed symptomatic treatment and specific conditions for return. I have spoken with the patient/caregiver and discussed todays findings, in addition to providing specific details for the plan of care. Questions are answered and there is agreement with the plan. Definitive disposition and diagnosis as appropriate pending reevaluation and review of above. - Related Data Allergies Allergy/AdvReac Type Severity Reaction Status Date / Time amoxicillin Allergy Mild Nausea and Verified 09/13/20 19:36 Vomiting seafood Allergy Severe Vomiting Uncoded 09/13/20 12:50 Home Meds: Home Meds Insulin Aspart [NovoLOG] 10 - 15 unit SUBCUT TIDAC 08/22/20 [History] Insulin Glarg,Human.Rec.Analog [Lantus Solostar] 15 units SUBCUT BID 08/22/20 [History] Buprenorphine HCl/Naloxone HCl [Buprenorphine-Nalox 8-2 mg Tab] 3 tab SL DAILY 09/15/20 [History] Erythromycin Ethylsuccinate 200 mg PO TIDMEALS #315 ml 09/19/20 [Rx] Pantoprazole Sodium [Protonix] 40 mg PO BIDMEALS #60 tablet.dr 09/19/20 [Rx] Sucralfate [Carafate] 1 gm PO QIDACANDBED #120 tab 09/19/20 [Rx] Sulfamethoxazole/Trimethoprim [Bactrim Ds Tablet] 1 each PO BID #14 tablet 09/19/20 [Rx] Ondansetron [Zofran ODT] 4 mg PO Q6H PRN #12 tab.dis 10/14/20 [Rx] diphenhydrAMINE [Benadryl] 50 mg PO Q6HR PRN #20 cap 10/14/20 [Rx] predniSONE [Prednisone] 50 mg PO DAILY #5 tablet 10/14/20 [Rx] Past Medical History - Past Health History Medical/Surgical History: Denies Medical/Surgical History HEENT History: Reports: None Other HEENT History: ear ache, broken and missing teeth Cardiovascular History: Reports: None Respiratory History: Reports: None Gastrointestinal History: Reports: GERD, GI Bleed, Irritable Bowel Syndrome Other Gastrointestinal History: gastroparesis Genitourinary History: Reports: Pyelonephritis, Other (See Below) Other Genitourinary History: hydronephrosis, neurogenic bladder Musculoskeletal History: Reports: Fracture Other Musculoskeletal History: Elbow long time ago Neurological History: Reports: None Psychiatric History: Reports: Anxiety, Depression Endocrine/Metabolic History: Reports: Diabetes, Type I Other Endocrine/Metabolic History: non-compliant to DM medications Insulin Pump Model and Retouching Operator: None Hematologic History: Reports: None Immunologic History: Reports: None Oncologic (Cancer) History: Reports: None Dermatologic History: Reports: Other (See Below) Other Dermatologic History: dry itchy skin - Infectious Disease History Infectious Disease History: Reports: None - Past Surgical History Head Surgeries/Procedures: Reports: None HEENT Surgical History: Reports: None GI Surgical History: Reports: None Male Surgical History: Reports: None Endocrine Surgical History: Reports: None Musculoskeletal Surgical History: Reports: None Dermatological Surgical History: Reports: None Social & Family History - Family History Family Medical History: No Pertinent Family History OBGYN: Reports: Endocrine/Metabolic: Reports: Diabetes, Type I, Diabetes, type II - Tobacco Use Tobacco Use Status *Q: Never Tobacco User - Caffeine Use Caffeine Use: Reports: Coffee - Recreational Drug Use Recreational Drug Use: No - Living Situation & Occupation Living situation: Reports: Single, with Family Occupation: Unemployed ED ROS GENERAL - Review of Systems Review Of Systems: See Below ED EXAM, GENERAL - Physical Exam Exam: See Below #1 Interpretation EKG Interpretation Comments: EKG: October 14, 2020, 9:02 PM As interpreted by ER physician: Max: Nonspecific ST-T wave abnormalities Normal axis No evidence of ST elevation MT Normal sinus tachycardia rhythm heart rate of 104 Course - Vital Signs Last Recorded V/S: Last Vital Signs Temp 98.3 F 10/14/20 20:01 Pulse 111 H 10/14/20 20:01 Resp 20 10/14/20 20:01 BP 130/93 H 10/14/20 20:01 Pulse Ox 100 10/14/20 20:01 - Orders/Labs/Meds Orders: Active Orders 24 hr Category Date Time Status CORONAVIRUS COVID-19 RICHIE [MOLEC] Stat Lab 10/14/20 21:05 Received DRUG SCREEN, URINE [URCHEM] Stat Lab 10/14/20 20:40 Ordered UA W/MICROSCOPIC [URIN] Stat Lab 10/14/20 20:39 Ordered Sodium Chloride 0.9% [Saline Flush] Med 10/14/20 20:39 Active 10 ml FLUSH ASDIRECTED PRN Sodium Chloride 0.9% [Saline Flush] Med 10/14/20 20:39 Active 2.5 ml FLUSH ASDIRECTED PRN Saline Lock Insert [OM.PC] Stat Oth 10/14/20 20:39 Ordered Saline Lock Insert [OM.PC] Stat Oth 10/14/20 20:40 Ordered Medication Orders Sodium Chloride (Sodium Chloride 0.9% 10 Ml Syringe) 10 ml FLUSH ASDIRECTED PRN PRN Reason: Keep Vein Open Last Admin: 10/14/20 21:31 Dose: 10 ml Documented by: BARB Sodium Chloride (Sodium Chloride 0.9% 2.5 Ml Syringe) 2.5 ml FLUSH ASDIRECTED PRN PRN Reason: Keep Vein Open Labs: Laboratory Tests 10/14/20 10/14/20 10/14/20 Range/Units 21:00 21:00 21:00 WBC 4.63 (4.0-11.0) K/uL RBC 4.11 L (4.50-5.90) M/uL Hgb 10.9 L (13.0-17.0) g/dL Hct 32.3 L (38.0-50.0) % MCV 78.6 L (80.0-98.0) fL MCH 26.5 L (27.0-32.0) pg MCHC 33.7 (31.0-37.0) g/dL RDW Std Deviation 40.0 (28.0-62.0) fl RDW Coeff of Erika 14 (11.0-15.0) % Plt Count 250 (150-400) K/uL MPV 9.90 (7.40-12.00) fL Neut % (Auto) 68.6 (48.0-80.0) % Lymph % (Auto) 26.3 (16.0-40.0) % [place] % (Auto) 3.0 (0.0-15.0) % Eos % (Auto) 1.7 (0.0-7.0) % Baso % (Auto) 0.4 (0.0-1.5) % Neut # (Auto) 3.2 (1.4-5.7) K/uL Lymph # (Auto) 1.2 (0.6-2.4) K/uL [place] # (Auto) 0.1 (0.0-0.8) K/uL Eos # (Auto) 0.1 (0.0-0.7) K/uL Baso # (Auto) 0.0 (0.0-0.1) K/uL Nucleated RBC % 0.0 /100WBC Nucleated RBCs # 0 K/uL VBG pH (7.31-7.41) VBG pCO2 (41-51) mmHG VBG pO2 mmHG VBG HCO3 (23-28) mEq/L VBG Total CO2 (24-29) mmol/L VBG Base Excess (-2.0-3.0) Sodium 141 (136-148) mmol/L Potassium 4.0 (3.5-5.1) mmol/L Chloride 105 (98-107) mmol/L Carbon Dioxide 28.0 (21.0-32.0) mmol/L BUN 18 (7.0-18.0) mg/dL Creatinine 1.0 (0.8-1.3) mg/dL Est Cr Clr Drug Dosing 88.45 mL/min Estimated GFR (MDRD) > 60.0 ml/min Glucose 246 H (74-106) mg/dL Calcium 9.1 (8.5-10.1) mg/dL Magnesium 1.9 (1.8-2.4) mg/dL Total Bilirubin 0.3 (0.2-1.0) mg/dL AST 14 L (15-37) IU/L ALT 21 (14-63) IU/L Alkaline Phosphatase 87 (46-116) U/L Total Protein 7.4 (6.4-8.2) g/dL Albumin 3.2 L (3.4-5.0) g/dL Globulin 4.2 H (2.6-4.0) g/dL Albumin/Globulin Ratio 0.8 L (0.9-1.6) Lipase 38 L (73-393) U/L Ethyl Alcohol < 3.0 mg/dL Ketones NEGATIVE (NEG) 10/14/20 Range/Units 21:00 WBC (4.0-11.0) K/uL RBC (4.50-5.90) M/uL Hgb (13.0-17.0) g/dL Hct (38.0-50.0) % MCV (80.0-98.0) fL MCH (27.0-32.0) pg MCHC (31.0-37.0) g/dL RDW Std Deviation (28.0-62.0) fl RDW Coeff of Erika (11.0-15.0) % Plt Count (150-400) K/uL MPV (7.40-12.00) fL Neut % (Auto) (48.0-80.0) % Lymph % (Auto) (16.0-40.0) % [place] % (Auto) (0.0-15.0) % Eos % (Auto) (0.0-7.0) % Baso % (Auto) (0.0-1.5) % Neut # (Auto) (1.4-5.7) K/uL Lymph # (Auto) (0.6-2.4) K/uL [place] # (Auto) (0.0-0.8) K/uL Eos # (Auto) (0.0-0.7) K/uL Baso # (Auto) (0.0-0.1) K/uL Nucleated RBC % /100WBC Nucleated RBCs # K/uL VBG pH 7.35 (7.31-7.41) VBG pCO2 51 (41-51) mmHG VBG pO2 44 mmHG VBG HCO3 28 (23-28) mEq/L VBG Total CO2 27 (24-29) mmol/L VBG Base Excess 2.0 (-2.0-3.0) Sodium (136-148) mmol/L Potassium (3.5-5.1) mmol/L Chloride (98-107) mmol/L Carbon Dioxide (21.0-32.0) mmol/L BUN (7.0-18.0) mg/dL Creatinine (0.8-1.3) mg/dL Est Cr Clr Drug Dosing mL/min Estimated GFR (MDRD) ml/min Glucose (74-106) mg/dL Calcium (8.5-10.1) mg/dL Magnesium (1.8-2.4) mg/dL Total Bilirubin (0.2-1.0) mg/dL AST (15-37) IU/L ALT (14-63) IU/L Alkaline Phosphatase (46-116) U/L Total Protein (6.4-8.2) g/dL Albumin (3.4-5.0) g/dL Globulin (2.6-4.0) g/dL Albumin/Globulin Ratio (0.9-1.6) Lipase (73-393) U/L Ethyl Alcohol mg/dL Ketones (NEG) Meds: Medications Generic Name Dose Route Start Last Admin Trade Name Freq PRN Reason Stop Dose Admin Sodium Chloride 10 ml 10/14/20 20:39 10/14/20 21:31 Sodium Chloride 0.9% 10 Ml Syringe FLUSH 10 ml ASDIRECTED PRN Administration Keep Vein Open Sodium Chloride 2.5 ml 10/14/20 20:39 Sodium Chloride 0.9% 2.5 Ml Syringe FLUSH ASDIRECTED PRN Keep Vein Open Discontinued Medications Generic Name Dose Route Start Last Admin Trade Name Gustavoq PRN Reason Stop Dose Admin Diphenhydramine HCl 25 mg 10/14/20 20:46 10/14/20 21:11 Diphenhydramine 50 Mg/Ml Sdv IVPUSH 10/14/20 20:47 25 mg ONETIME ONE Administration Sodium Chloride 1,000 mls @ 999 mls/hr 10/14/20 20:39 10/14/20 21:11 Normal Saline IV 10/14/20 21:39 999 mls/hr BOLUS ONE Administration Methylprednisolone Sodium Succinate 125 mg 10/14/20 20:46 10/14/20 21:11 Methylprednisolone Sodium Succinate 125 Mg/2 Ml Sdv IVPUSH 10/14/20 20:47 125 mg ONETIME ONE Administration Ondansetron HCl 4 mg 10/14/20 20:40 10/14/20 21:11 Ondansetron 4 Mg/2 Ml Sdv IVPUSH 10/14/20 20:41 4 mg ONETIME ONE Administration Departure - Departure Time of Disposition: 22:01 Disposition: Home, Self-Care 01 Condition: Good Clinical Impression: History of diabetes mellitus Allergic reaction Qualifiers: Encounter type: initial encounter Qualified Code(s): T78.40XA - Allergy, unspecified, initial encounter Nausea & vomiting Qualifiers: Vomiting type: unspecified Vomiting Intractability: non-intractable Qualified Code(s): R11.2 - Nausea with vomiting, unspecified Abdominal pain Qualifiers: Abdominal location: upper abdomen, unspecified Qualified Code(s): R10.10 - Upper abdominal pain, unspecified - Discharge Information Prescriptions: diphenhydrAMINE [Benadryl] 50 mg PO Q6HR PRN #20 cap PRN Reason: Itching predniSONE [Prednisone] 50 mg PO DAILY #5 tablet Ondansetron [Zofran ODT] 4 mg PO Q6H PRN #12 tab.dis PRN Reason: Nausea Instructions: Abdominal Pain, Adult, Allergies, Adult, [id number], Nausea and Vomiting, Adult Referrals: Lonny Lomas DO [Primary Care Provider] - Forms: ED Department Discharge Additional Instructions: You were seen and evaluated in the ER today secondary to nausea vomiting and abdominal pain which is most likely secondary to allergic reaction to seafood. Your blood tests have all looked normal with no evidence of diabetic ketoacidosis at this time. Your liver, kidney, pancreas, electrolytes blood tests are all within normal limits. You will be given a prescription for Zofran to help you with your nausea. You will be given a prescription for Benadryl and prednisone help you with your allergic reaction. Please avoid any foods with seafood in the future. Please make an appointment to see your family doctor on Friday for reevaluation if your symptoms are still persistent. The following information is given to patients seen in the emergency department who are being discharged to home. This information is to outline your options for follow-up care. We provide all patients seen in our emergency department with a follow-up referral. The need for follow-up, as well as the timing and circumstances, are variable depending upon the specifics of your emergency department visit. If you don't have a primary care physician on staff, we will provide you with a referral. We always advise you to contact your personal physician following an emergency department visit to inform them of the circumstance of the visit and for follow-up with them and/or the need for any referrals to a consulting specialist. The emergency department will also refer you to a specialist when appropriate. This referral assures that you have the opportunity for follow-up care with a specialist. All of these measure are taken in an effort to provide you with optimal care, which includes your follow-up. Under all circumstances we always encourage you to contact your private physician who remains a resource for coordinating your care. When calling for follow-up care, please make the office aware that this follow-up is from your recent emergency room visit. If for any reason you are refused follow-up, please contact the [facility] Emergency Department at and asked to speak to the emergency department charge nurse. Satnam Weber [facility] [address] [place] [id number] [facility] [address] [place] [id number] Sepsis Event Note (ED) - Evaluation Sepsis Screening Result: Possible Sepsis Risk - Focused Exam Vital Signs: Vital Signs Temp Pulse Resp BP Pulse Ox 10/14/20 20:01 98.3 F 111 H 20 130/93 H 100 - My Orders Last 24 Hours: My Active Orders 10/14/20 20:39 UA W/MICROSCOPIC [URIN] Stat Sodium Chloride 0.9% [Saline Flush] 10 ml FLUSH ASDIRECTED PRN Sodium Chloride 0.9% [Saline Flush] 2.5 ml FLUSH ASDIRECTED PRN Saline Lock Insert [OM.PC] Stat 10/14/20 20:40 DRUG SCREEN, URINE [URCHEM] Stat Saline Lock Insert [OM.PC] Stat 10/14/20 21:05 CORONAVIRUS COVID-19 RICHIE [MOLEC] Stat - Assessment/Plan Last 24 Hours: My Active Orders 10/14/20 20:39 UA W/MICROSCOPIC [URIN] Stat Sodium Chloride 0.9% [Saline Flush] 10 ml FLUSH ASDIRECTED PRN Sodium Chloride 0.9% [Saline Flush] 2.5 ml FLUSH ASDIRECTED PRN Saline Lock Insert [OM.PC] Stat 10/14/20 20:40 DRUG SCREEN, URINE [URCHEM] Stat Saline Lock Insert [OM.PC] Stat 10/14/20 21:05 CORONAVIRUS COVID-19 RICHIE [MOLEC] Stat
[2020-10-14 21:34] LABS: BLOOD UREA NITROGEN,BUN 18 mg/dL (7.0-18.0); CHLORIDE,CL 105 mmol/L (98-107); GLUCOSE RANDOM 246 mg/dL (74-106); LIPASE 38 U/L (73-393); SODIUM,NA 141 mmol/L (136-148)
[2020-10-14 23:49] VITALS: BP 140/90; PULSE 102
== END 2020-10-14 22:15 | disposition home or self-care (01) ==
LOC: MW.ED 19:48
DX: T78.1XXA Other adverse food reactions, not elsewhere classified, initial encounter (principal); R10.10 Upper abdominal pain, unspecified; R11.2 Nausea with vomiting, unspecified; E10.10 Type 1 diabetes mellitus with ketoacidosis without coma; E10.43 Type 1 diabetes mellitus with diabetic autonomic (poly)neuropathy; K31.84 Gastroparesis; Z88.0 Allergy status to penicillin; Z91.013 Allergy to seafood; Z79.4 Long term (current) use of insulin; Z79.899 Other long term (current) drug therapy
CPT/HCPCS: 36415; 80053; 80307; 82009; 82803; 83690; 83735; 85025; 87635; 93005; 96374; 96375; 99284; J1200; J2405; J2930; J7030; U0002

== ENCOUNTER 2020-10-15 14:19 | Inpatient (IN) | payer MEDICAID ==
[2020-10-15] MEDS ORDERED: Sodium Chloride 0.9% 1,000 ML IV ONE (15:57)
[2020-10-15] MEDS ORDERED: Ondansetron 4 MG/2 ML SDV IVPUSH ONE (15:58)
[2020-10-15] MEDS ORDERED: Pantoprazole 80 MG in Sodium Chloride 0.9% 20 ML IVPUSH ONE (16:02)
[2020-10-15] MEDS ORDERED: Morphine 4 MG/ML Syringe IVPUSH ONE (16:03)
[2020-10-15] MEDS ORDERED: diphenhydrAMINE 50 MG/ML SDV IVPUSH ONE ×2 (16:24→19:35)
[2020-10-15 16:57] LABS: BLOOD UREA NITROGEN,BUN 30 mg/dL (7.0-18.0); CARBON DIOXIDE,CO2 24.7 mmol/L (21.0-32.0); CHLORIDE,CL 105 mmol/L (98-107); GLUCOSE RANDOM 326 mg/dL (74-106); LIPASE 21 U/L (73-393); POTASSIUM,K 3.9 mmol/L (3.5-5.1); SODIUM,NA 144 mmol/L (136-148)
[2020-10-15] MEDS ORDERED: Insulin Regular, Human 100 Units/ML 10 ML Vial SUBCUT ONE (17:01)
[2020-10-15] MEDS: cefTRIAXone 1 GM in Premix Bag 1 BAG IV ONE (18:30)
--- NOTE | 2020-10-15 18:38 | CT ---
INDICATION: FEVER, VOMITING, ABD PAIN CT ABDOMEN AND PELVIS WITH CONTRAST TECHNIQUE: Multidetector CT imaging was performed through the abdomen and pelvis following intravenous contrast administration using 65 mL Isovue 370. Coronal and sagittal reconstructions were generated. COMPARISON: 09/12/2020 CT abdomen and pelvis. FINDINGS: Lower chest: Lung bases are clear. Liver: Within normal limits. Gallbladder and bile ducts: Nonspecific moderate distention of the gallbladder, which contains dependently layering faint density suggesting sludge or small gallstones. No definite gallbladder wall thickening or pericholecystic fluid to suggest acute cholecystitis. No biliary dilation identified. Pancreas: Unremarkable. Spleen: Normal. Adrenals: No nodules or masses. Kidneys, ureters, and urinary bladder: Subtle heterogeneity of enhancement of the renal parenchyma bilaterally, possibly representing mild bilateral pyelonephritis. No hydronephrosis. Diffuse wall thickening of the urinary bladder with extensive gas within the urinary bladder wall, very suspicious for emphysematous cystitis. Some gas also appears present within the bladder lumen. Gastrointestinal tract: Normal caliber bowel without wall thickening or obstruction. Dense appendiceal contents or appendicoliths are again seen, without evidence of appendicitis. Vascular structures: Normal for age. Peritoneum: No free air, abscess, or significant free fluid. Lymph nodes: No pathologically enlarged nodes identified. Reproductive organs: No pelvic masses. Bones: Normal for age. IMPRESSION: 1. Urinary bladder wall thickening and extensive gas within the bladder wall, strong suggestive of emphysematous cystitis. Clinical correlation and correlation with urinalysis is recommended. 2. Question of mild bilateral pyelonephritis. 3. Nonspecific distention of the gallbladder with probable gallbladder sludge or small gallstones. If clinically indicated, this could be further evaluated with ultrasound. CLAUDIA GRUBBS MD [employer] [employer] Dictated by Wellington Grubbs MD @ 10/15/2020 6:36:53 PM Please note that all CT scans at this facility use dose modulation, iterative reconstruction, and/or weight-based dosing when appropriate to reduce radiation dose to as low as reasonably achievable. Dictated by: Wellington Grubbs MD @ 10/15/2020 18:37:11 (Electronically Signed)
[2020-10-15] MEDS ORDERED: Iopamidol 755 MG/ML 500 ML Multipack Bottle IVPUSH STA (18:43)
[2020-10-15] MEDS ORDERED: Metoclopramide 10 MG/2 ML SDV IVPUSH ONE (19:34)
[2020-10-15] MEDS ORDERED: Glucagon,Human Recombinant 1 MG Vial IM PRN (21:55)
[2020-10-15] MEDS ORDERED: 50% Dextrose in Water 50 ML Syringe IVPUSH PRN (21:55)
[2020-10-15] MEDS ORDERED: diphenhydrAMINE 25 MG Cap PO PRN (21:56)
[2020-10-15] MEDS ORDERED: SUBOXONE SCH (22:00)
[2020-10-15] MEDS: Sodium Chloride 0.9% 1,000 ML IV SCH (22:58)
[2020-10-15] MEDS ORDERED: Promethazine 25 MG/ML SDV IM PRN (23:39)
[2020-10-15] MEDS ORDERED: Meropenem Premix 50 ML IV SCH (23:45)
[2020-10-15] MEDS ORDERED: Meropenem 1 GM in Sodium Chloride 0.9% 100 ML IV SCH (23:45)
--- NOTE | 2020-10-15 23:52 | PCM.HP.2 ---
H&P History of Present Illness - General Date of Service: 10/15/20 Admit Problem/Dx: Admission Diagnosis/Problem Admission Diagnosis/Problem Acute pyelonephritis - History of Present Illness Initial Comments - Free Text/Narative: 25 yo male with pmh of DM type 1, gastroparesis, neurogenic bladder who presents to the ED after two days of nausea, vomiting and abdominal pain. Patient reported he at [facility] with out realizing it had seafood which he is allergic. He developed itching afterwords and then his GI symptoms. He reports he has been taking insulin regularly. Last month he has been trying to cut back on his Suboxone to 1/2 tabs TID. He reports he has been urinating without the need for self catheterization. Middle Abdomen Pain Score (Numeric/FACES): 6 - Related Data Allergies/Adverse Reactions: Allergies Allergy/AdvReac Type Severity Reaction Status Date / Time amoxicillin Allergy Mild Nausea and Verified 10/15/20 20:55 Vomiting seafood Allergy Severe Vomiting Uncoded 10/15/20 20:55 Home Medications: Home Meds Insulin Aspart [NovoLOG] 10 - 15 unit SUBCUT TIDAC 08/22/20 [History] Insulin Glarg,Human.Rec.Analog [Lantus Solostar] 15 units SUBCUT BID 08/22/20 [History] Buprenorphine HCl/Naloxone HCl [Buprenorphine-Nalox 8-2 mg Tab] 3 tab SL DAILY 09/15/20 [History] Sucralfate [Carafate] 1 gm PO QIDACANDBED #120 tab 09/19/20 [Rx] Ondansetron [Zofran ODT] 4 mg PO Q6H PRN #12 tab.dis 10/14/20 [Rx] diphenhydrAMINE [Benadryl] 50 mg PO Q6HR PRN #20 cap 10/14/20 [Rx] predniSONE [Prednisone] 50 mg PO DAILY #5 tablet 10/14/20 [Rx] Past Medical History - Past Health History Medical/Surgical History: Denies Medical/Surgical History HEENT History: Reports: Impaired Vision Other HEENT History: ear ache, broken and missing teeth, impaired vision in left eye Cardiovascular History: Reports: None Respiratory History: Reports: None Gastrointestinal History: Reports: GERD, GI Bleed, Irritable Bowel Syndrome Other Gastrointestinal History: gastroparesis, ulcer Genitourinary History: Reports: Pyelonephritis, Other (See Below) Other Genitourinary History: hydronephrosis, neurogenic bladder Musculoskeletal History: Reports: Fracture Other Musculoskeletal History: Elbow long time ago Neurological History: Reports: None Psychiatric History: Reports: Anxiety, Depression Endocrine/Metabolic History: Reports: Diabetes, Type I Other Endocrine/Metabolic History: non-compliant to DM medications Insulin Pump Model and Environmental Specialist: None Hematologic History: Reports: None Immunologic History: Reports: None Oncologic (Cancer) History: Reports: None Dermatologic History: Reports: Other (See Below) Other Dermatologic History: dry itchy skin - Infectious Disease History Infectious Disease History: Reports: None - Past Surgical History Head Surgeries/Procedures: Reports: None HEENT Surgical History: Reports: None GI Surgical History: Reports: None Male Surgical History: Reports: None Endocrine Surgical History: Reports: None Musculoskeletal Surgical History: Reports: None Dermatological Surgical History: Reports: None Social & Family History - Family History Family Medical History: No Pertinent Family History OBGYN: Reports: Endocrine/Metabolic: Reports: Diabetes, Type I, Diabetes, type II - Tobacco Use Tobacco Use Status *Q: Former Tobacco User Used Tobacco, but Quit: Yes Month/Year Tobacco Last Used: Yesterday one cigarette Second Hand Smoke Exposure: No - Caffeine Use Caffeine Use: Reports: Coffee, Energy Drinks, Soda - Recreational Drug Use Recreational Drug Use: No - Living Situation & Occupation Living situation: Reports: Single, with Family Occupation: Unemployed H&P Review of Systems - Review of Systems: Review Of Systems: Comprehensive ROS is negative, except as noted in HPI. Exam - Exam Exam: See Below - Vital Signs Vital Signs: Last Vital Signs Temp 37.2 C 10/15/20 21:00 Pulse 102 H 10/15/20 21:00 Resp 16 10/15/20 21:00 BP 118/78 10/15/20 21:00 Pulse Ox 95 10/15/20 21:00 Weight: 52.617 kg - Exam General: Alert, Oriented HEENT: Mucosa Moist & [place] Lungs: Clear to Auscultation, Normal Respiratory Effort Cardiovascular: Regular Rate, Regular Rhythm GI/Abdominal Exam: Normal Bowel Sounds, Soft, Non-Tender Extremities: Non-Tender, No Pedal Edema - Patient Data Lab Results Last 24 hrs: Laboratory Results - last 24 hr 10/15/20 10/15/2021 Range/Units 14:20 16:04 16:20 WBC (4.0-11.0) K/uL RBC (4.50-5.90) M/uL Hgb (13.0-17.0) g/dL Hct (38.0-50.0) % MCV (80.0-98.0) fL MCH (27.0-32.0) pg MCHC (31.0-37.0) g/dL RDW Std Deviation (28.0-62.0) fl RDW Coeff of Erika (11.0-15.0) % Plt Count (150-400) K/uL MPV (7.40-12.00) fL Neut % (Auto) (48.0-80.0) % Lymph % (Auto) (16.0-40.0) % Rice % (Auto) (0.0-15.0) % Eos % (Auto) (0.0-7.0) % Baso % (Auto) (0.0-1.5) % Neut # (Auto) (1.4-5.7) K/uL Lymph # (Auto) (0.6-2.4) K/uL Rice # (Auto) (0.0-0.8) K/uL Eos # (Auto) (0.0-0.7) K/uL Baso # (Auto) (0.0-0.1) K/uL Nucleated RBC % /100WBC Nucleated RBCs # K/uL ABG pH 7.36 (7.35-7.45) ABG pCO2 42 (35-45) mmHG ABG pO2 74 L (80-105) mmHG ABG HCO3 24 (22-26) mEq/L ABG Total CO2 22.5 L (23-27) mmol/L ABG Base Excess -1.5 (-2.0-3.0) Sodium (136-148) mmol/L Potassium (3.5-5.1) mmol/L Chloride (98-107) mmol/L Carbon Dioxide (21.0-32.0) mmol/L BUN (7.0-18.0) mg/dL Creatinine (0.8-1.3) mg/dL Est Cr Clr Drug Dosing mL/min Estimated GFR (MDRD) ml/min Glucose (74-106) mg/dL POC Glucose 292 H (70-99) mg/dL Lactic Acid (0.4-2.0) mmol/L Calcium (8.5-10.1) mg/dL Total Bilirubin (0.2-1.0) mg/dL AST (15-37) IU/L ALT (14-63) IU/L Alkaline Phosphatase (46-116) U/L Total Protein (6.4-8.2) g/dL Albumin (3.4-5.0) g/dL Globulin (2.6-4.0) g/dL Albumin/Globulin Ratio (0.9-1.6) Lipase (73-393) U/L Urine Color Urine Appearance Urine pH (5.0-8.0) Ur Specific [place] (1.001-1.035) Urine Protein (NEGATIVE) mg/dL Urine Glucose (UA) (NEGATIVE) mg/dL Urine Ketones (NEGATIVE) mg/dL Urine Occult Blood (NEGATIVE) Urine Nitrite (NEGATIVE) Urine Bilirubin (NEGATIVE) Urine Urobilinogen (<2.0) EU/dL Ur Leukocyte Esterase (NEGATIVE) Urine RBC (0-2/HPF) Urine WBC (0-5/HPF) Ur Epithelial Cells (NONE-FEW) Urine Bacteria (NEGATIVE) Urine Mucus (NONE-MOD) Ketones SMALL H (NEG) SARS-CoV-2 RNA (RICHIE) (NEGATIVE) 10/15/20 10/15/20 10/15/20 Range/Units 16:20 16:20 16:20 WBC 8.43 (4.0-11.0) K/uL RBC 4.19 L (4.50-5.90) M/uL Hgb 11.1 L (13.0-17.0) g/dL Hct 33.6 L (38.0-50.0) % MCV 80.2 (80.0-98.0) fL MCH 26.5 L (27.0-32.0) pg MCHC 33.0 (31.0-37.0) g/dL RDW Std Deviation 41.6 (28.0-62.0) fl RDW Coeff of Erika 15 (11.0-15.0) % Plt Count 280 (150-400) K/uL MPV 9.70 (7.40-12.00) fL Neut % (Auto) 83.1 H (48.0-80.0) % Lymph % (Auto) 8.8 L (16.0-40.0) % Rice % (Auto) 8.1 (0.0-15.0) % Eos % (Auto) 0.0 (0.0-7.0) % Baso % (Auto) 0.0 (0.0-1.5) % Neut # (Auto) 7.0 H (1.4-5.7) K/uL Lymph # (Auto) 0.7 (0.6-2.4) K/uL Rice # (Auto) 0.7 (0.0-0.8) K/uL Eos # (Auto) 0.0 (0.0-0.7) K/uL Baso # (Auto) 0.0 (0.0-0.1) K/uL Nucleated RBC % 0.0 /100WBC Nucleated RBCs # 0 K/uL ABG pH (7.35-7.45) ABG pCO2 (35-45) mmHG ABG pO2 (80-105) mmHG ABG HCO3 (22-26) mEq/L ABG Total CO2 (23-27) mmol/L ABG Base Excess (-2.0-3.0) Sodium 144 (136-148) mmol/L Potassium 3.9 (3.5-5.1) mmol/L Chloride 105 (98-107) mmol/L Carbon Dioxide 24.7 (21.0-32.0) mmol/L BUN 30 H (7.0-18.0) mg/dL Creatinine 1.2 (0.8-1.3) mg/dL Est Cr Clr Drug Dosing 73.71 mL/min Estimated GFR (MDRD) > 60.0 ml/min Glucose 326 H (74-106) mg/dL POC Glucose (70-99) mg/dL Lactic Acid (0.4-2.0) mmol/L Calcium 9.4 (8.5-10.1) mg/dL Total Bilirubin 0.4 (0.2-1.0) mg/dL AST 14 L (15-37) IU/L ALT 23 (14-63) IU/L Alkaline Phosphatase 89 (46-116) U/L Total Protein 7.8 (6.4-8.2) g/dL Albumin 3.4 (3.4-5.0) g/dL Globulin 4.4 H (2.6-4.0) g/dL Albumin/Globulin Ratio 0.8 L (0.9-1.6) Lipase 21 L (73-393) U/L Urine Color Urine Appearance Urine pH (5.0-8.0) Ur Specific [place] (1.001-1.035) Urine Protein (NEGATIVE) mg/dL Urine Glucose (UA) (NEGATIVE) mg/dL Urine Ketones (NEGATIVE) mg/dL Urine Occult Blood (NEGATIVE) Urine Nitrite (NEGATIVE) Urine Bilirubin (NEGATIVE) Urine Urobilinogen (<2.0) EU/dL Ur Leukocyte Esterase (NEGATIVE) Urine RBC (0-2/HPF) Urine WBC (0-5/HPF) Ur Epithelial Cells (NONE-FEW) Urine Bacteria (NEGATIVE) Urine Mucus (NONE-MOD) Ketones (NEG) SARS-CoV-2 RNA (RICHIE) NEGATIVE (NEGATIVE) 10/15/20 10/15/20 10/15/20 Range/Units 16:49 17:11 17:53 WBC (4.0-11.0) K/uL RBC (4.50-5.90) M/uL Hgb (13.0-17.0) g/dL Hct (38.0-50.0) % MCV (80.0-98.0) fL MCH (27.0-32.0) pg MCHC (31.0-37.0) g/dL RDW Std Deviation (28.0-62.0) fl RDW Coeff of Erika (11.0-15.0) % Plt Count (150-400) K/uL MPV (7.40-12.00) fL Neut % (Auto) (48.0-80.0) % Lymph % (Auto) (16.0-40.0) % Rice % (Auto) (0.0-15.0) % Eos % (Auto) (0.0-7.0) % Baso % (Auto) (0.0-1.5) % Neut # (Auto) (1.4-5.7) K/uL Lymph # (Auto) (0.6-2.4) K/uL Rice # (Auto) (0.0-0.8) K/uL Eos # (Auto) (0.0-0.7) K/uL Baso # (Auto) (0.0-0.1) K/uL Nucleated RBC % /100WBC Nucleated RBCs # K/uL ABG pH (7.35-7.45) ABG pCO2 (35-45) mmHG ABG pO2 (80-105) mmHG ABG HCO3 (22-26) mEq/L ABG Total CO2 (23-27) mmol/L ABG Base Excess (-2.0-3.0) Sodium (136-148) mmol/L Potassium (3.5-5.1) mmol/L Chloride (98-107) mmol/L Carbon Dioxide (21.0-32.0) mmol/L BUN (7.0-18.0) mg/dL Creatinine (0.8-1.3) mg/dL Est Cr Clr Drug Dosing mL/min Estimated GFR (MDRD) ml/min Glucose (74-106) mg/dL POC Glucose 272 H (70-99) mg/dL Lactic Acid 1.1 (0.4-2.0) mmol/L Calcium (8.5-10.1) mg/dL Total Bilirubin (0.2-1.0) mg/dL AST (15-37) IU/L ALT (14-63) IU/L Alkaline Phosphatase (46-116) U/L Total Protein (6.4-8.2) g/dL Albumin (3.4-5.0) g/dL Globulin (2.6-4.0) g/dL Albumin/Globulin Ratio (0.9-1.6) Lipase (73-393) U/L Urine Color YELLOW Urine Appearance CLOUDY Urine pH 6.0 (5.0-8.0) Ur Specific [place] >= 1.030 (1.001-1.035) Urine Protein 100 H (NEGATIVE) mg/dL Urine Glucose (UA) >=1000 (NEGATIVE) mg/dL Urine Ketones 15 H (NEGATIVE) mg/dL Urine Occult Blood LARGE H (NEGATIVE) Urine Nitrite NEGATIVE (NEGATIVE) Urine Bilirubin NEGATIVE (NEGATIVE) Urine Urobilinogen 0.2 (<2.0) EU/dL Ur Leukocyte Esterase TRACE H (NEGATIVE) Urine RBC 10-15 (0-2/HPF) Urine WBC 40-50 (0-5/HPF) Ur Epithelial Cells FEW (NONE-FEW) Urine Bacteria 4+ H (NEGATIVE) Urine Mucus LIGHT (NONE-MOD) Ketones (NEG) SARS-CoV-2 RNA (RICHIE) (NEGATIVE) 10/15/20 Range/Units 23:39 WBC (4.0-11.0) K/uL RBC (4.50-5.90) M/uL Hgb (13.0-17.0) g/dL Hct (38.0-50.0) % MCV (80.0-98.0) fL MCH (27.0-32.0) pg MCHC (31.0-37.0) g/dL RDW Std Deviation (28.0-62.0) fl RDW Coeff of Erika (11.0-15.0) % Plt Count (150-400) K/uL MPV (7.40-12.00) fL Neut % (Auto) (48.0-80.0) % Lymph % (Auto) (16.0-40.0) % Rice % (Auto) (0.0-15.0) % Eos % (Auto) (0.0-7.0) % Baso % (Auto) (0.0-1.5) % Neut # (Auto) (1.4-5.7) K/uL Lymph # (Auto) (0.6-2.4) K/uL Rice # (Auto) (0.0-0.8) K/uL Eos # (Auto) (0.0-0.7) K/uL Baso # (Auto) (0.0-0.1) K/uL Nucleated RBC % /100WBC Nucleated RBCs # K/uL ABG pH (7.35-7.45) ABG pCO2 (35-45) mmHG ABG pO2 (80-105) mmHG ABG HCO3 (22-26) mEq/L ABG Total CO2 (23-27) mmol/L ABG Base Excess (-2.0-3.0) Sodium (136-148) mmol/L Potassium (3.5-5.1) mmol/L Chloride (98-107) mmol/L Carbon Dioxide (21.0-32.0) mmol/L BUN (7.0-18.0) mg/dL Creatinine (0.8-1.3) mg/dL Est Cr Clr Drug Dosing mL/min Estimated GFR (MDRD) ml/min Glucose (74-106) mg/dL POC Glucose 212 H (70-99) mg/dL Lactic Acid (0.4-2.0) mmol/L Calcium (8.5-10.1) mg/dL Total Bilirubin (0.2-1.0) mg/dL AST (15-37) IU/L ALT (14-63) IU/L Alkaline Phosphatase (46-116) U/L Total Protein (6.4-8.2) g/dL Albumin (3.4-5.0) g/dL Globulin (2.6-4.0) g/dL Albumin/Globulin Ratio (0.9-1.6) Lipase (73-393) U/L Urine Color Urine Appearance Urine pH (5.0-8.0) Ur Specific [place] (1.001-1.035) Urine Protein (NEGATIVE) mg/dL Urine Glucose (UA) (NEGATIVE) mg/dL Urine Ketones (NEGATIVE) mg/dL Urine Occult Blood (NEGATIVE) Urine Nitrite (NEGATIVE) Urine Bilirubin (NEGATIVE) Urine Urobilinogen (<2.0) EU/dL Ur Leukocyte Esterase (NEGATIVE) Urine RBC (0-2/HPF) Urine WBC (0-5/HPF) Ur Epithelial Cells (NONE-FEW) Urine Bacteria (NEGATIVE) Urine Mucus (NONE-MOD) Ketones (NEG) SARS-CoV-2 RNA (RICHIE) (NEGATIVE) Result Diagrams: 10/15/20 16:20 10/15/20 16:20 Sepsis Event Note - Evaluation Sepsis Screening Result: Possible Sepsis Risk - Focused Exam Vital Signs: Vital Signs Temp Pulse Resp BP Pulse Ox 10/15/20 21:00 37.2 C 102 H 16 118/78 95 10/15/20 20:06 115 H 16 142/99 H 97 10/15/20 18:33 101 H 18 136/99 H 98 10/15/20 17:15 82 18 148/73 H 97 10/15/20 15:51 37.3 C 120 H 22 H 142/93 H 97 *Q Meaningful Use (ADM) - VTE *Q VTE Anticoagulation Contraindications: Medical/Procedure Contrai Problem List Initiated/Reviewed/Updated: Yes Orders Last 24hrs: Active Orders 24 hr Category Date Time Status Admission Status [Patient Status] [ADT] Stat ADT 10/15/20 19:18 Active Accu Check [Blood Glucose Check, Bedside] [RC] ONETIME Care 10/15/20 14:46 Active Accu Check [Blood Glucose Check, Bedside] [RC] TIDAC Care 10/15/20 21:54 Active Antiembolic Devices [RC] PER UNIT ROUTINE Care 10/15/20 23:45 Ordered Bladder Scan [RC] Q6H Care 10/15/20 22:49 Active Oxygen Therapy [RC] PRN Care 10/15/20 23:44 Ordered Up ad Romy [RC] ASDIRECTED Care 10/15/20 23:44 Ordered VTE/DVT Education [RC] PER UNIT ROUTINE Care 10/15/20 23:44 Ordered Vital Signs [RC] Q4H Care 10/15/20 23:44 Ordered ADA Diabetic [[employer] Diet] [DIET Diet 10/16/20 Breakfast Active ] CBC WITH AUTO DIFF [HEME] AM Lab 10/16/20 05:11 Ordered COMPREHENSIVE METABOLIC PN,CMP [CHEM] AM Lab 10/16/20 05:11 Ordered CULTURE BLOOD [BC] Stat Lab 10/15/20 16:49 Received CULTURE BLOOD [BC] Stat Lab 10/15/20 17:09 Received CULTURE URINE [MREF] Stat Lab 10/15/20 17:11 Received GLYCOSYLATED HEMOGLOBIN,HGBA1C [CHEM] AM Lab 10/16/20 05:11 Ordered MAGNESIUM [CHEM] AM Lab 10/16/20 05:11 Ordered PHOSPHORUS [CHEM] AM Lab 10/16/20 05:11 Ordered Dextrose 50% in Water Med 10/15/20 21:55 Active 50 ml IVPUSH ASDIRECTED PRN Glucagon,Human Recombinant [GlucaGen] Med 10/15/20 21:55 Active 1 mg IM ASDIRECTED PRN Insulin Aspart [NovoLOG] Med 10/16/20 07:30 Active 5 unit SUBCUT TIDAC Insulin Aspart [NovoLOG] Med 10/16/20 07:30 Active See Protocol SUBCUT TIDAC Insulin Glarg,Human.Rec.Analog [LantUS Solostar] Med 10/15/20 23:45 Ordered 15 units SUBCUT BID Ondansetron [Zofran] Med 10/15/20 23:39 Ordered 4 mg IVPUSH Q4H PRN Patient's Own Medication [Ptom] Med 10/16/20 06:00 Pending 0.5 - 1 each .XX TID Promethazine [Phenergan] Med 10/15/20 23:39 Ordered 25 mg IM Q6H PRN Sodium Chloride 0.9% [Normal Saline] 1,000 ml Med 10/15/20 22:00 Active IV ASDIRECTED cefTRIAXone [Rocephin in Dextrose,Iso-Osm 1 GM/50 ML] 1 Med 10/16/20 18:30 Active gm Premix Bag 1 bag IV Q24H diphenhydrAMINE [Benadryl] Med 10/15/20 21:56 Active 25 mg PO Q6H PRN Anticoagulation Contraindications VTE [AST] Per Unit Oth 10/15/20 23:44 Ordered Routine Blood Culture x2 Reflex Set [OM.PC] Stat Oth 10/15/20 16:03 Ordered Sequential Compression Device [OM.PC] Per Unit Routine Oth 10/15/20 23:44 Ordered Resuscitation Status Routine Resus Stat 10/15/20 23:44 Ordered Medication Orders Dextrose/Water (50% Dextrose In Water 50 Ml Syringe) 50 ml IVPUSH ASDIRECTED PRN PRN Reason: Hypoglycemia Diphenhydramine HCl (Diphenhydramine 25 Mg Cap) 25 mg PO Q6H PRN PRN Reason: Itching Glucagon (Glucagon,Human Recombinant 1 Mg Vial) 1 mg IM ASDIRECTED PRN PRN Reason: Hypoglycemia Sodium Chloride (Normal Saline) 1,000 mls @ 125 mls/hr IV ASDIRECTED AUGUSTINE Last Admin: 10/15/20 22:58 Dose: 125 mls/hr Documented by: [email or web address] Ceftriaxone Sodium/Dextrose 1 (gm/ Premix) 50 mls @ 100 mls/hr IV Q24H AUGUSTINE Insulin Aspart (Insulin Aspart 100 Units/Ml 3 Ml Pen) 0 unit SUBCUT TIDAC AUGUSTINE; Protocol Insulin Aspart (Insulin Aspart 100 Units/Ml 3 Ml Pen) 5 unit SUBCUT TIDAC AUGUSTINE Insulin Glargine (Insulin Glargine,Human Rec. Analog 100 Units/Ml 3 Ml Pen) 15 units SUBCUT BID AUGUSTINE Ondansetron HCl (Ondansetron 4 Mg/2 Ml Sdv) 4 mg IVPUSH Q4H PRN PRN Reason: Nausea Patient's Own MedicationSuboxone 8/2 Mg Tab 0.5 - 1 each .XX TID AUGUSTINE Promethazine HCl (Promethazine 25 Mg/Ml Sdv) 25 mg IM Q6H PRN PRN Reason: Nausea Assessment/Plan Comment:: 25 yo male with pmh of DM admitted for pyelonephritis and gastroparesis. Pyelonephritis: cultures pending, patient has amoxicillin allergy but has tolerated Rocephin in the past, will bladder scan frequently to ensure he is draining his bladder. Gastroparesis: IV fluids, prn antiemetics, resume Suboxone DM: Lantus BID and premeal novolog.
[2020-10-16] MEDS: Insulin Glargine,Human Rec. Analog 100 Units/ML 3 ML Pen SUBCUT SCH ×3 (00:23→21:09)
[2020-10-16] MEDS: Ondansetron 4 MG/2 ML SDV IVPUSH PRN ×3 (05:53→21:05)
[2020-10-16] MEDS ORDERED: Patient's Own Medication 1 Each SCH (06:00)
[2020-10-16] MEDS: SUBOXONE SCH ×3 (07:20→22:32)
[2020-10-16 07:50] LABS: HEMOGLOBIN A1C 10.4 %
[2020-10-16] MEDS: Sodium Chloride 0.9% 1,000 ML IV SCH (08:01)
[2020-10-16 08:09] LABS: BLOOD UREA NITROGEN,BUN 28 mg/dL (7.0-18.0); CARBON DIOXIDE,CO2 27.9 mmol/L (21.0-32.0); CHLORIDE,CL 112 mmol/L (98-107); GLUCOSE RANDOM 122 mg/dL (74-106); POTASSIUM,K 3.5 mmol/L (3.5-5.1); SODIUM,NA 148 mmol/L (136-148)
[2020-10-16] MEDS: Insulin Aspart 100 Units/ML 3 ML Pen SUBCUT SCH ×5 (08:46→18:32)
--- NOTE | 2020-10-16 09:06 | PCM.PN ---
- General Info Date of Service: 10/16/20 Admission Dx/Problem (Free Text): Admission Diagnosis/Problem Admission Diagnosis/Problem Acute pyelonephritis Subjective Update: Reports he is continuing to feel nauseated this morning with abdominal pain. Reports he has not voided yet today. Denies any chest pain or shortness of breath. Appears slightly diaphoretic and having abdominal pain. Patient was sleeping well and when the lights were turned on he started moaning and moving around reporting he was having abdominal pain. Functional Status: Reports: Pain Controlled, Ambulating. Denies: Tolerating Diet, Urinating - Review of Systems General: Reports: No Symptoms HEENT: Reports: No Symptoms Pulmonary: Reports: No Symptoms. Denies: Shortness of Breath Cardiovascular: Reports: No Symptoms. Denies: Chest Pain Gastrointestinal: Reports: Abdominal Pain, Decreased Appetite, Nausea. Denies: Vomiting Genitourinary: Reports: No Symptoms. Denies: Dysuria, Frequency Musculoskeletal: Reports: No Symptoms Skin: Reports: No Symptoms Neurological: Reports: No Symptoms Psychiatric: Reports: No Symptoms - Patient Data Vitals - Most Recent: Last Vital Signs Temp 97.8 F 10/16/20 08:00 Pulse 108 H 10/16/20 08:00 Resp 16 10/16/20 08:00 BP 158/96 H 10/16/20 08:00 Pulse Ox 96 10/16/20 08:00 Weight - Most Recent: 52.617 kg I&O - Last 24 Hours: Intake & Output 10/15/20 10/16/20 10/16/20 22:59 06:59 14:59 Intake Total 50 Output Total 650 Balance -600 Lab Results Last 24 Hours: Laboratory Results - last 24 hr 10/15/20 10/15/20 10/15/20 Range/Units 14:20 16:04 16:20 WBC (4.0-11.0) K/uL RBC (4.50-5.90) M/uL Hgb (13.0-17.0) g/dL Hct (38.0-50.0) % MCV (80.0-98.0) fL MCH (27.0-32.0) pg MCHC (31.0-37.0) g/dL RDW Std Deviation (28.0-62.0) fl RDW Coeff of Erika (11.0-15.0) % Plt Count (150-400) K/uL MPV (7.40-12.00) fL Neut % (Auto) (48.0-80.0) % Lymph % (Auto) (16.0-40.0) % [place] % (Auto) (0.0-15.0) % Eos % (Auto) (0.0-7.0) % Baso % (Auto) (0.0-1.5) % Neut # (Auto) (1.4-5.7) K/uL Lymph # (Auto) (0.6-2.4) K/uL [place] # (Auto) (0.0-0.8) K/uL Eos # (Auto) (0.0-0.7) K/uL Baso # (Auto) (0.0-0.1) K/uL Nucleated RBC % /100WBC Nucleated RBCs # K/uL ABG pH 7.36 (7.35-7.45) ABG pCO2 42 (35-45) mmHG ABG pO2 74 L (80-105) mmHG ABG HCO3 24 (22-26) mEq/L ABG Total CO2 22.5 L (23-27) mmol/L ABG Base Excess -1.5 (-2.0-3.0) Sodium (136-148) mmol/L Potassium (3.5-5.1) mmol/L Chloride (98-107) mmol/L Carbon Dioxide (21.0-32.0) mmol/L BUN (7.0-18.0) mg/dL Creatinine (0.8-1.3) mg/dL Est Cr Clr Drug Dosing mL/min Estimated GFR (MDRD) ml/min Glucose (74-106) mg/dL POC Glucose 292 H (70-99) mg/dL Hemoglobin A1c (4.5 - 6.2) % Lactic Acid (0.4-2.0) mmol/L Calcium (8.5-10.1) mg/dL Phosphorus (2.6-4.7) mg/dL Magnesium (1.8-2.4) mg/dL Total Bilirubin (0.2-1.0) mg/dL AST (15-37) IU/L ALT (14-63) IU/L Alkaline Phosphatase (46-116) U/L Total Protein (6.4-8.2) g/dL Albumin (3.4-5.0) g/dL Globulin (2.6-4.0) g/dL Albumin/Globulin Ratio (0.9-1.6) Lipase (73-393) U/L Urine Color Urine Appearance Urine pH (5.0-8.0) Ur Specific [place] (1.001-1.035) Urine Protein (NEGATIVE) mg/dL Urine Glucose (UA) (NEGATIVE) mg/dL Urine Ketones (NEGATIVE) mg/dL Urine Occult Blood (NEGATIVE) Urine Nitrite (NEGATIVE) Urine Bilirubin (NEGATIVE) Urine Urobilinogen (<2.0) EU/dL Ur Leukocyte Esterase (NEGATIVE) Urine RBC (0-2/HPF) Urine WBC (0-5/HPF) Ur Epithelial Cells (NONE-FEW) Urine Bacteria (NEGATIVE) Urine Mucus (NONE-MOD) Ketones SMALL H (NEG) SARS-CoV-2 RNA (RICHIE) (NEGATIVE) 10/15/20 10/15/20 10/15/20 Range/Units 16:20 16:20 16:20 WBC 8.43 (4.0-11.0) K/uL RBC 4.19 L (4.50-5.90) M/uL Hgb 11.1 L (13.0-17.0) g/dL Hct 33.6 L (38.0-50.0) % MCV 80.2 (80.0-98.0) fL MCH 26.5 L (27.0-32.0) pg MCHC 33.0 (31.0-37.0) g/dL RDW Std Deviation 41.6 (28.0-62.0) fl RDW Coeff of Erika 15 (11.0-15.0) % Plt Count 280 (150-400) K/uL MPV 9.70 (7.40-12.00) fL Neut % (Auto) 83.1 H (48.0-80.0) % Lymph % (Auto) 8.8 L (16.0-40.0) % [place] % (Auto) 8.1 (0.0-15.0) % Eos % (Auto) 0.0 (0.0-7.0) % Baso % (Auto) 0.0 (0.0-1.5) % Neut # (Auto) 7.0 H (1.4-5.7) K/uL Lymph # (Auto) 0.7 (0.6-2.4) K/uL [place] # (Auto) 0.7 (0.0-0.8) K/uL Eos # (Auto) 0.0 (0.0-0.7) K/uL Baso # (Auto) 0.0 (0.0-0.1) K/uL Nucleated RBC % 0.0 /100WBC Nucleated RBCs # 0 K/uL ABG pH (7.35-7.45) ABG pCO2 (35-45) mmHG ABG pO2 (80-105) mmHG ABG HCO3 (22-26) mEq/L ABG Total CO2 (23-27) mmol/L ABG Base Excess (-2.0-3.0) Sodium 144 (136-148) mmol/L Potassium 3.9 (3.5-5.1) mmol/L Chloride 105 (98-107) mmol/L Carbon Dioxide 24.7 (21.0-32.0) mmol/L BUN 30 H (7.0-18.0) mg/dL Creatinine 1.2 (0.8-1.3) mg/dL Est Cr Clr Drug Dosing 73.71 mL/min Estimated GFR (MDRD) > 60.0 ml/min Glucose 326 H (74-106) mg/dL POC Glucose (70-99) mg/dL Hemoglobin A1c (4.5 - 6.2) % Lactic Acid (0.4-2.0) mmol/L Calcium 9.4 (8.5-10.1) mg/dL Phosphorus (2.6-4.7) mg/dL Magnesium (1.8-2.4) mg/dL Total Bilirubin 0.4 (0.2-1.0) mg/dL AST 14 L (15-37) IU/L ALT 23 (14-63) IU/L Alkaline Phosphatase 89 (46-116) U/L Total Protein 7.8 (6.4-8.2) g/dL Albumin 3.4 (3.4-5.0) g/dL Globulin 4.4 H (2.6-4.0) g/dL Albumin/Globulin Ratio 0.8 L (0.9-1.6) Lipase 21 L (73-393) U/L Urine Color Urine Appearance Urine pH (5.0-8.0) Ur Specific [place] (1.001-1.035) Urine Protein (NEGATIVE) mg/dL Urine Glucose (UA) (NEGATIVE) mg/dL Urine Ketones (NEGATIVE) mg/dL Urine Occult Blood (NEGATIVE) Urine Nitrite (NEGATIVE) Urine Bilirubin (NEGATIVE) Urine Urobilinogen (<2.0) EU/dL Ur Leukocyte Esterase (NEGATIVE) Urine RBC (0-2/HPF) Urine WBC (0-5/HPF) Ur Epithelial Cells (NONE-FEW) Urine Bacteria (NEGATIVE) Urine Mucus (NONE-MOD) Ketones (NEG) SARS-CoV-2 RNA (RICHIE) NEGATIVE (NEGATIVE) 10/15/20 10/15/20 10/15/20 Range/Units 16:49 17:11 17:53 WBC (4.0-11.0) K/uL RBC (4.50-5.90) M/uL Hgb (13.0-17.0) g/dL Hct (38.0-50.0) % MCV (80.0-98.0) fL MCH (27.0-32.0) pg MCHC (31.0-37.0) g/dL RDW Std Deviation (28.0-62.0) fl RDW Coeff of Erika (11.0-15.0) % Plt Count (150-400) K/uL MPV (7.40-12.00) fL Neut % (Auto) (48.0-80.0) % Lymph % (Auto) (16.0-40.0) % [place] % (Auto) (0.0-15.0) % Eos % (Auto) (0.0-7.0) % Baso % (Auto) (0.0-1.5) % Neut # (Auto) (1.4-5.7) K/uL Lymph # (Auto) (0.6-2.4) K/uL [place] # (Auto) (0.0-0.8) K/uL Eos # (Auto) (0.0-0.7) K/uL Baso # (Auto) (0.0-0.1) K/uL Nucleated RBC % /100WBC Nucleated RBCs # K/uL ABG pH (7.35-7.45) ABG pCO2 (35-45) mmHG ABG pO2 (80-105) mmHG ABG HCO3 (22-26) mEq/L ABG Total CO2 (23-27) mmol/L ABG Base Excess (-2.0-3.0) Sodium (136-148) mmol/L Potassium (3.5-5.1) mmol/L Chloride (98-107) mmol/L Carbon Dioxide (21.0-32.0) mmol/L BUN (7.0-18.0) mg/dL Creatinine (0.8-1.3) mg/dL Est Cr Clr Drug Dosing mL/min Estimated GFR (MDRD) ml/min Glucose (74-106) mg/dL POC Glucose 272 H (70-99) mg/dL Hemoglobin A1c (4.5 - 6.2) % Lactic Acid 1.1 (0.4-2.0) mmol/L Calcium (8.5-10.1) mg/dL Phosphorus (2.6-4.7) mg/dL Magnesium (1.8-2.4) mg/dL Total Bilirubin (0.2-1.0) mg/dL AST (15-37) IU/L ALT (14-63) IU/L Alkaline Phosphatase (46-116) U/L Total Protein (6.4-8.2) g/dL Albumin (3.4-5.0) g/dL Globulin (2.6-4.0) g/dL Albumin/Globulin Ratio (0.9-1.6) Lipase (73-393) U/L Urine Color YELLOW Urine Appearance CLOUDY Urine pH 6.0 (5.0-8.0) Ur Specific [place] >= 1.030 (1.001-1.035) Urine Protein 100 H (NEGATIVE) mg/dL Urine Glucose (UA) >=1000 (NEGATIVE) mg/dL Urine Ketones 15 H (NEGATIVE) mg/dL Urine Occult Blood LARGE H (NEGATIVE) Urine Nitrite NEGATIVE (NEGATIVE) Urine Bilirubin NEGATIVE (NEGATIVE) Urine Urobilinogen 0.2 (<2.0) EU/dL Ur Leukocyte Esterase TRACE H (NEGATIVE) Urine RBC 10-15 (0-2/HPF) Urine WBC 40-50 (0-5/HPF) Ur Epithelial Cells FEW (NONE-FEW) Urine Bacteria 4+ H (NEGATIVE) Urine Mucus LIGHT (NONE-MOD) Ketones (NEG) SARS-CoV-2 RNA (RICHIE) (NEGATIVE) 10/15/20 10/16/20 10/16/20 Range/Units 23:39 06:18 06:18 WBC 6.60 (4.0-11.0) K/uL RBC 4.08 L (4.50-5.90) M/uL Hgb 10.4 L (13.0-17.0) g/dL Hct 33.3 L (38.0-50.0) % MCV 81.6 (80.0-98.0) fL MCH 25.5 L (27.0-32.0) pg MCHC 31.2 (31.0-37.0) g/dL RDW Std Deviation 43.0 (28.0-62.0) fl RDW Coeff of Erika 15 (11.0-15.0) % Plt Count 268 (150-400) K/uL MPV 9.90 (7.40-12.00) fL Neut % (Auto) 67.5 (48.0-80.0) % Lymph % (Auto) 25.0 (16.0-40.0) % [place] % (Auto) 7.0 (0.0-15.0) % Eos % (Auto) 0.2 (0.0-7.0) % Baso % (Auto) 0.3 (0.0-1.5) % Neut # (Auto) 4.5 (1.4-5.7) K/uL Lymph # (Auto) 1.7 (0.6-2.4) K/uL [place] # (Auto) 0.5 (0.0-0.8) K/uL Eos # (Auto) 0.0 (0.0-0.7) K/uL Baso # (Auto) 0.0 (0.0-0.1) K/uL Nucleated RBC % 0.0 /100WBC Nucleated RBCs # 0 K/uL ABG pH (7.35-7.45) ABG pCO2 (35-45) mmHG ABG pO2 (80-105) mmHG ABG HCO3 (22-26) mEq/L ABG Total CO2 (23-27) mmol/L ABG Base Excess (-2.0-3.0) Sodium 148 (136-148) mmol/L Potassium 3.5 (3.5-5.1) mmol/L Chloride 112 H (98-107) mmol/L Carbon Dioxide 27.9 (21.0-32.0) mmol/L BUN 28 H (7.0-18.0) mg/dL Creatinine 1.1 (0.8-1.3) mg/dL Est Cr Clr Drug Dosing 77.73 mL/min Estimated GFR (MDRD) > 60.0 ml/min Glucose 122 H (74-106) mg/dL POC Glucose 212 H (70-99) mg/dL Hemoglobin A1c (4.5 - 6.2) % Lactic Acid (0.4-2.0) mmol/L Calcium 8.8 (8.5-10.1) mg/dL Phosphorus 3.1 (2.6-4.7) mg/dL Magnesium 2.2 (1.8-2.4) mg/dL Total Bilirubin 0.3 (0.2-1.0) mg/dL AST 14 L (15-37) IU/L ALT 19 (14-63) IU/L Alkaline Phosphatase 79 (46-116) U/L Total Protein 7.3 (6.4-8.2) g/dL Albumin 3.1 L (3.4-5.0) g/dL Globulin 4.2 H (2.6-4.0) g/dL Albumin/Globulin Ratio 0.7 L (0.9-1.6) Lipase (73-393) U/L Urine Color Urine Appearance Urine pH (5.0-8.0) Ur Specific [place] (1.001-1.035) Urine Protein (NEGATIVE) mg/dL Urine Glucose (UA) (NEGATIVE) mg/dL Urine Ketones (NEGATIVE) mg/dL Urine Occult Blood (NEGATIVE) Urine Nitrite (NEGATIVE) Urine Bilirubin (NEGATIVE) Urine Urobilinogen (<2.0) EU/dL Ur Leukocyte Esterase (NEGATIVE) Urine RBC (0-2/HPF) Urine WBC (0-5/HPF) Ur Epithelial Cells (NONE-FEW) Urine Bacteria (NEGATIVE) Urine Mucus (NONE-MOD) Ketones (NEG) SARS-CoV-2 RNA (RICHIE) (NEGATIVE) 10/16/20 10/16/20 Range/Units 06:18 06:30 WBC (4.0-11.0) K/uL RBC (4.50-5.90) M/uL Hgb (13.0-17.0) g/dL Hct (38.0-50.0) % MCV (80.0-98.0) fL MCH (27.0-32.0) pg MCHC (31.0-37.0) g/dL RDW Std Deviation (28.0-62.0) fl RDW Coeff of Erika (11.0-15.0) % Plt Count (150-400) K/uL MPV (7.40-12.00) fL Neut % (Auto) (48.0-80.0) % Lymph % (Auto) (16.0-40.0) % [place] % (Auto) (0.0-15.0) % Eos % (Auto) (0.0-7.0) % Baso % (Auto) (0.0-1.5) % Neut # (Auto) (1.4-5.7) K/uL Lymph # (Auto) (0.6-2.4) K/uL [place] # (Auto) (0.0-0.8) K/uL Eos # (Auto) (0.0-0.7) K/uL Baso # (Auto) (0.0-0.1) K/uL Nucleated RBC % /100WBC Nucleated RBCs # K/uL ABG pH (7.35-7.45) ABG pCO2 (35-45) mmHG ABG pO2 (80-105) mmHG ABG HCO3 (22-26) mEq/L ABG Total CO2 (23-27) mmol/L ABG Base Excess (-2.0-3.0) Sodium (136-148) mmol/L Potassium (3.5-5.1) mmol/L Chloride (98-107) mmol/L Carbon Dioxide (21.0-32.0) mmol/L BUN (7.0-18.0) mg/dL Creatinine (0.8-1.3) mg/dL Est Cr Clr Drug Dosing mL/min Estimated GFR (MDRD) ml/min Glucose (74-106) mg/dL POC Glucose 122 H (70-99) mg/dL Hemoglobin A1c 10.4 H (4.5 - 6.2) % Lactic Acid (0.4-2.0) mmol/L Calcium (8.5-10.1) mg/dL Phosphorus (2.6-4.7) mg/dL Magnesium (1.8-2.4) mg/dL Total Bilirubin (0.2-1.0) mg/dL AST (15-37) IU/L ALT (14-63) IU/L Alkaline Phosphatase (46-116) U/L Total Protein (6.4-8.2) g/dL Albumin (3.4-5.0) g/dL Globulin (2.6-4.0) g/dL Albumin/Globulin Ratio (0.9-1.6) Lipase (73-393) U/L Urine Color Urine Appearance Urine pH (5.0-8.0) Ur Specific [place] (1.001-1.035) Urine Protein (NEGATIVE) mg/dL Urine Glucose (UA) (NEGATIVE) mg/dL Urine Ketones (NEGATIVE) mg/dL Urine Occult Blood (NEGATIVE) Urine Nitrite (NEGATIVE) Urine Bilirubin (NEGATIVE) Urine Urobilinogen (<2.0) EU/dL Ur Leukocyte Esterase (NEGATIVE) Urine RBC (0-2/HPF) Urine WBC (0-5/HPF) Ur Epithelial Cells (NONE-FEW) Urine Bacteria (NEGATIVE) Urine Mucus (NONE-MOD) Ketones (NEG) SARS-CoV-2 RNA (RICHIE) (NEGATIVE) Med Orders - Current: Current Medications Dextrose/Water (50% Dextrose In Water 50 Ml Syringe) 50 ml IVPUSH ASDIRECTED PRN PRN Reason: Hypoglycemia Diphenhydramine HCl (Diphenhydramine 25 Mg Cap) 25 mg PO Q6H PRN PRN Reason: Itching Glucagon (Glucagon,Human Recombinant 1 Mg Vial) 1 mg IM ASDIRECTED PRN PRN Reason: Hypoglycemia Sodium Chloride (Normal Saline) 1,000 mls @ 125 mls/hr IV ASDIRECTED [facility] Last Admin: 10/16/20 08:01 Dose: 125 mls/hr Documented by: Ceftriaxone Sodium 1 gm/ (Sodium Chloride) 50 mls @ 100 mls/hr IV Q24H AUGUSTINE Insulin Aspart (Insulin Aspart 100 Units/Ml 3 Ml Pen) 0 unit SUBCUT TIDAC [facility]; Protocol Last Admin: 10/16/20 08:46 Dose: Not Given Documented by: Insulin Aspart (Insulin Aspart 100 Units/Ml 3 Ml Pen) 5 unit SUBCUT TIDAC [facility] Last Admin: 10/16/20 08:47 Dose: Not Given Documented by: Insulin Glargine (Insulin Glargine,Human Rec. Analog 100 Units/Ml 3 Ml Pen) 15 units SUBCUT BID [facility] Last Admin: 10/16/20 00:23 Dose: 15 units Documented by: Ondansetron HCl (Ondansetron 4 Mg/2 Ml Sdv) 4 mg IVPUSH Q4H PRN PRN Reason: Nausea Last Admin: 10/16/20 05:53 Dose: 4 mg Documented by: Patient's Own MedicationSuboxone 8/2 Mg Tab 0.5 - 1 each .XX TID [facility] Last Admin: 10/16/20 07:20 Dose: Not Given Documented by: Promethazine HCl (Promethazine 25 Mg/Ml Sdv) 25 mg IM Q6H PRN PRN Reason: Nausea Discontinued Medications Diphenhydramine HCl (Diphenhydramine 50 Mg/Ml Sdv) 25 mg IVPUSH ONETIME ONE Stop: 10/15/20 16:25 Last Admin: 10/15/20 16:32 Dose: 25 mg Documented by: Diphenhydramine HCl (Diphenhydramine 50 Mg/Ml Sdv) 25 mg IVPUSH ONETIME ONE Stop: 10/15/20 19:36 Last Admin: 10/15/20 19:43 Dose: 25 mg Documented by: Sodium Chloride (Normal Saline) 1,000 mls @ 999 mls/hr IV BOLUS ONE Stop: 10/15/20 16:57 Last Admin: 10/15/20 16:19 Dose: 999 mls/hr Documented by: Pantoprazole Sodium 80 mg/ (Sodium Chloride) 20 mls @ 420 mls/hr IVPUSH ONETIME ONE Stop: 10/15/20 16:04 Last Admin: 10/15/20 16:19 Dose: 420 mls/hr Documented by: Ceftriaxone Sodium/Dextrose 1 (gm/ Premix) 50 mls @ 100 mls/hr IV ONETIME ONE Stop: 10/15/20 18:36 Last Admin: 10/15/20 18:30 Dose: 100 mls/hr Documented by: Ceftriaxone Sodium/Dextrose 1 (gm/ Premix) 50 mls @ 100 mls/hr IV Q24H [facility] Meropenem/Sodium Chloride (Meropenem In Ns 1 Gm/50 Ml) 50 mls @ 100 mls/hr IV Q8H [facility] Stop: 10/16/20 00:06 Last Admin: 10/16/20 01:32 Dose: Not Given Documented by: Insulin Human Regular (Insulin Regular, Human 100 Units/Ml 10 Ml Vial) 4 unit SUBCUT ASDIRECTED ONE; Protocol Stop: 10/15/20 17:02 Last Admin: 10/15/20 17:57 Dose: 4 units Documented by: Iopamidol (Iopamidol 755 Mg/Ml 500 Ml Multipack Bottle) 65 ml IVPUSH ONETIME STA Stop: 10/15/20 18:44 Last Admin: 10/15/20 18:44 Dose: 65 ml Documented by: Metoclopramide HCl (Metoclopramide 10 Mg/2 Ml Sdv) 10 mg IVPUSH ONETIME ONE Stop: 10/15/20 19:35 Last Admin: 10/15/20 19:43 Dose: 10 mg Documented by: Morphine Sulfate (Morphine 4 Mg/Ml Syringe) 4 mg IVPUSH ONETIME ONE Stop: 10/15/20 16:04 Last Admin: 10/15/20 16:24 Dose: 4 mg Documented by: Ondansetron HCl (Ondansetron 4 Mg/2 Ml Sdv) 4 mg IVPUSH ONETIME ONE Stop: 10/15/20 15:59 Last Admin: 10/15/20 16:19 Dose: 4 mg Documented by: Patient's Own MedicationSuboxone 8/2 Mg Tab 3 each .XX DAILY [facility] Last Admin: 10/15/20 22:57 Dose: 0.5 each Documented by: Patient Own Medication (Patient's Own Medication 1 Each) 3 each .XX TID AUGUSTINE - Exam Quality Assessment: DVT Prophylaxis. No: Supplemental Oxygen General: Alert, Oriented, Cooperative, Mild Distress (Abdominal pain) Lungs: Clear to Auscultation, Normal Respiratory Effort Cardiovascular: Regular Rate, Regular Rhythm GI/Abdominal Exam: Normal Bowel Sounds, Soft, No Distention, Tender (To the least amount of pressure applied to abdomen). No: Distended, Guarding, Rigid Extremities: Normal Inspection, Normal Range of Motion, Non-Tender, No Pedal Edema Wound/Incisions: Healing Well Neurological: No New Focal Deficit Psy/Mental Status: Alert, Normal Affect, Normal Mood - Patient Data Lab Results Last 24 hrs: Laboratory Results - last 24 hr 10/15/20 10/15/20 10/15/20 Range/Units 14:20 16:04 16:20 WBC (4.0-11.0) K/uL RBC (4.50-5.90) M/uL Hgb (13.0-17.0) g/dL Hct (38.0-50.0) % MCV (80.0-98.0) fL MCH (27.0-32.0) pg MCHC (31.0-37.0) g/dL RDW Std Deviation (28.0-62.0) fl RDW Coeff of Erika (11.0-15.0) % Plt Count (150-400) K/uL MPV (7.40-12.00) fL Neut % (Auto) (48.0-80.0) % Lymph % (Auto) (16.0-40.0) % [place] % (Auto) (0.0-15.0) % Eos % (Auto) (0.0-7.0) % Baso % (Auto) (0.0-1.5) % Neut # (Auto) (1.4-5.7) K/uL Lymph # (Auto) (0.6-2.4) K/uL [place] # (Auto) (0.0-0.8) K/uL Eos # (Auto) (0.0-0.7) K/uL Baso # (Auto) (0.0-0.1) K/uL Nucleated RBC % /100WBC Nucleated RBCs # K/uL ABG pH 7.36 (7.35-7.45) ABG pCO2 42 (35-45) mmHG ABG pO2 74 L (80-105) mmHG ABG HCO3 24 (22-26) mEq/L ABG Total CO2 22.5 L (23-27) mmol/L ABG Base Excess -1.5 (-2.0-3.0) Sodium (136-148) mmol/L Potassium (3.5-5.1) mmol/L Chloride (98-107) mmol/L Carbon Dioxide (21.0-32.0) mmol/L BUN (7.0-18.0) mg/dL Creatinine (0.8-1.3) mg/dL Est Cr Clr Drug Dosing mL/min Estimated GFR (MDRD) ml/min Glucose (74-106) mg/dL POC Glucose 292 H (70-99) mg/dL Hemoglobin A1c (4.5 - 6.2) % Lactic Acid (0.4-2.0) mmol/L Calcium (8.5-10.1) mg/dL Phosphorus (2.6-4.7) mg/dL Magnesium (1.8-2.4) mg/dL Total Bilirubin (0.2-1.0) mg/dL AST (15-37) IU/L ALT (14-63) IU/L Alkaline Phosphatase (46-116) U/L Total Protein (6.4-8.2) g/dL Albumin (3.4-5.0) g/dL Globulin (2.6-4.0) g/dL Albumin/Globulin Ratio (0.9-1.6) Lipase (73-393) U/L Urine Color Urine Appearance Urine pH (5.0-8.0) Ur Specific [place] (1.001-1.035) Urine Protein (NEGATIVE) mg/dL Urine Glucose (UA) (NEGATIVE) mg/dL Urine Ketones (NEGATIVE) mg/dL Urine Occult Blood (NEGATIVE) Urine Nitrite (NEGATIVE) Urine Bilirubin (NEGATIVE) Urine Urobilinogen (<2.0) EU/dL Ur Leukocyte Esterase (NEGATIVE) Urine RBC (0-2/HPF) Urine WBC (0-5/HPF) Ur Epithelial Cells (NONE-FEW) Urine Bacteria (NEGATIVE) Urine Mucus (NONE-MOD) Ketones SMALL H (NEG) SARS-CoV-2 RNA (RICHIE) (NEGATIVE) 10/15/20 10/15/20 10/15/20 Range/Units 16:20 16:20 16:20 WBC 8.43 (4.0-11.0) K/uL RBC 4.19 L (4.50-5.90) M/uL Hgb 11.1 L (13.0-17.0) g/dL Hct 33.6 L (38.0-50.0) % MCV 80.2 (80.0-98.0) fL MCH 26.5 L (27.0-32.0) pg MCHC 33.0 (31.0-37.0) g/dL RDW Std Deviation 41.6 (28.0-62.0) fl RDW Coeff of Erika 15 (11.0-15.0) % Plt Count 280 (150-400) K/uL MPV 9.70 (7.40-12.00) fL Neut % (Auto) 83.1 H (48.0-80.0) % Lymph % (Auto) 8.8 L (16.0-40.0) % [place] % (Auto) 8.1 (0.0-15.0) % Eos % (Auto) 0.0 (0.0-7.0) % Baso % (Auto) 0.0 (0.0-1.5) % Neut # (Auto) 7.0 H (1.4-5.7) K/uL Lymph # (Auto) 0.7 (0.6-2.4) K/uL [place] # (Auto) 0.7 (0.0-0.8) K/uL Eos # (Auto) 0.0 (0.0-0.7) K/uL Baso # (Auto) 0.0 (0.0-0.1) K/uL Nucleated RBC % 0.0 /100WBC Nucleated RBCs # 0 K/uL ABG pH (7.35-7.45) ABG pCO2 (35-45) mmHG ABG pO2 (80-105) mmHG ABG HCO3 (22-26) mEq/L ABG Total CO2 (23-27) mmol/L ABG Base Excess (-2.0-3.0) Sodium 144 (136-148) mmol/L Potassium 3.9 (3.5-5.1) mmol/L Chloride 105 (98-107) mmol/L Carbon Dioxide 24.7 (21.0-32.0) mmol/L BUN 30 H (7.0-18.0) mg/dL Creatinine 1.2 (0.8-1.3) mg/dL Est Cr Clr Drug Dosing 73.71 mL/min Estimated GFR (MDRD) > 60.0 ml/min Glucose 326 H (74-106) mg/dL POC Glucose (70-99) mg/dL Hemoglobin A1c (4.5 - 6.2) % Lactic Acid (0.4-2.0) mmol/L Calcium 9.4 (8.5-10.1) mg/dL Phosphorus (2.6-4.7) mg/dL Magnesium (1.8-2.4) mg/dL Total Bilirubin 0.4 (0.2-1.0) mg/dL AST 14 L (15-37) IU/L ALT 23 (14-63) IU/L Alkaline Phosphatase 89 (46-116) U/L Total Protein 7.8 (6.4-8.2) g/dL Albumin 3.4 (3.4-5.0) g/dL Globulin 4.4 H (2.6-4.0) g/dL Albumin/Globulin Ratio 0.8 L (0.9-1.6) Lipase 21 L (73-393) U/L Urine Color Urine Appearance Urine pH (5.0-8.0) Ur Specific [place] (1.001-1.035) Urine Protein (NEGATIVE) mg/dL Urine Glucose (UA) (NEGATIVE) mg/dL Urine Ketones (NEGATIVE) mg/dL Urine Occult Blood (NEGATIVE) Urine Nitrite (NEGATIVE) Urine Bilirubin (NEGATIVE) Urine Urobilinogen (<2.0) EU/dL Ur Leukocyte Esterase (NEGATIVE) Urine RBC (0-2/HPF) Urine WBC (0-5/HPF) Ur Epithelial Cells (NONE-FEW) Urine Bacteria (NEGATIVE) Urine Mucus (NONE-MOD) Ketones (NEG) SARS-CoV-2 RNA (RICHIE) NEGATIVE (NEGATIVE) 10/15/20 10/15/20 10/15/20 Range/Units 16:49 17:11 17:53 WBC (4.0-11.0) K/uL RBC (4.50-5.90) M/uL Hgb (13.0-17.0) g/dL Hct (38.0-50.0) % MCV (80.0-98.0) fL MCH (27.0-32.0) pg MCHC (31.0-37.0) g/dL RDW Std Deviation (28.0-62.0) fl RDW Coeff of Erika (11.0-15.0) % Plt Count (150-400) K/uL MPV (7.40-12.00) fL Neut % (Auto) (48.0-80.0) % Lymph % (Auto) (16.0-40.0) % [place] % (Auto) (0.0-15.0) % Eos % (Auto) (0.0-7.0) % Baso % (Auto) (0.0-1.5) % Neut # (Auto) (1.4-5.7) K/uL Lymph # (Auto) (0.6-2.4) K/uL [place] # (Auto) (0.0-0.8) K/uL Eos # (Auto) (0.0-0.7) K/uL Baso # (Auto) (0.0-0.1) K/uL Nucleated RBC % /100WBC Nucleated RBCs # K/uL ABG pH (7.35-7.45) ABG pCO2 (35-45) mmHG ABG pO2 (80-105) mmHG ABG HCO3 (22-26) mEq/L ABG Total CO2 (23-27) mmol/L ABG Base Excess (-2.0-3.0) Sodium (136-148) mmol/L Potassium (3.5-5.1) mmol/L Chloride (98-107) mmol/L Carbon Dioxide (21.0-32.0) mmol/L BUN (7.0-18.0) mg/dL Creatinine (0.8-1.3) mg/dL Est Cr Clr Drug Dosing mL/min Estimated GFR (MDRD) ml/min Glucose (74-106) mg/dL POC Glucose 272 H (70-99) mg/dL Hemoglobin A1c (4.5 - 6.2) % Lactic Acid 1.1 (0.4-2.0) mmol/L Calcium (8.5-10.1) mg/dL Phosphorus (2.6-4.7) mg/dL Magnesium (1.8-2.4) mg/dL Total Bilirubin (0.2-1.0) mg/dL AST (15-37) IU/L ALT (14-63) IU/L Alkaline Phosphatase (46-116) U/L Total Protein (6.4-8.2) g/dL Albumin (3.4-5.0) g/dL Globulin (2.6-4.0) g/dL Albumin/Globulin Ratio (0.9-1.6) Lipase (73-393) U/L Urine Color YELLOW Urine Appearance CLOUDY Urine pH 6.0 (5.0-8.0) Ur Specific [place] >= 1.030 (1.001-1.035) Urine Protein 100 H (NEGATIVE) mg/dL Urine Glucose (UA) >=1000 (NEGATIVE) mg/dL Urine Ketones 15 H (NEGATIVE) mg/dL Urine Occult Blood LARGE H (NEGATIVE) Urine Nitrite NEGATIVE (NEGATIVE) Urine Bilirubin NEGATIVE (NEGATIVE) Urine Urobilinogen 0.2 (<2.0) EU/dL Ur Leukocyte Esterase TRACE H (NEGATIVE) Urine RBC 10-15 (0-2/HPF) Urine WBC 40-50 (0-5/HPF) Ur Epithelial Cells FEW (NONE-FEW) Urine Bacteria 4+ H (NEGATIVE) Urine Mucus LIGHT (NONE-MOD) Ketones (NEG) SARS-CoV-2 RNA (RICHIE) (NEGATIVE) 10/15/20 10/16/20 10/16/20 Range/Units 23:39 06:18 06:18 WBC 6.60 (4.0-11.0) K/uL RBC 4.08 L (4.50-5.90) M/uL Hgb 10.4 L (13.0-17.0) g/dL Hct 33.3 L (38.0-50.0) % MCV 81.6 (80.0-98.0) fL MCH 25.5 L (27.0-32.0) pg MCHC 31.2 (31.0-37.0) g/dL RDW Std Deviation 43.0 (28.0-62.0) fl RDW Coeff of Erika 15 (11.0-15.0) % Plt Count 268 (150-400) K/uL MPV 9.90 (7.40-12.00) fL Neut % (Auto) 67.5 (48.0-80.0) % Lymph % (Auto) 25.0 (16.0-40.0) % [place] % (Auto) 7.0 (0.0-15.0) % Eos % (Auto) 0.2 (0.0-7.0) % Baso % (Auto) 0.3 (0.0-1.5) % Neut # (Auto) 4.5 (1.4-5.7) K/uL Lymph # (Auto) 1.7 (0.6-2.4) K/uL [place] # (Auto) 0.5 (0.0-0.8) K/uL Eos # (Auto) 0.0 (0.0-0.7) K/uL Baso # (Auto) 0.0 (0.0-0.1) K/uL Nucleated RBC % 0.0 /100WBC Nucleated RBCs # 0 K/uL ABG pH (7.35-7.45) ABG pCO2 (35-45) mmHG ABG pO2 (80-105) mmHG ABG HCO3 (22-26) mEq/L ABG Total CO2 (23-27) mmol/L ABG Base Excess (-2.0-3.0) Sodium 148 (136-148) mmol/L Potassium 3.5 (3.5-5.1) mmol/L Chloride 112 H (98-107) mmol/L Carbon Dioxide 27.9 (21.0-32.0) mmol/L BUN 28 H (7.0-18.0) mg/dL Creatinine 1.1 (0.8-1.3) mg/dL Est Cr Clr Drug Dosing 77.73 mL/min Estimated GFR (MDRD) > 60.0 ml/min Glucose 122 H (74-106) mg/dL POC Glucose 212 H (70-99) mg/dL Hemoglobin A1c (4.5 - 6.2) % Lactic Acid (0.4-2.0) mmol/L Calcium 8.8 (8.5-10.1) mg/dL Phosphorus 3.1 (2.6-4.7) mg/dL Magnesium 2.2 (1.8-2.4) mg/dL Total Bilirubin 0.3 (0.2-1.0) mg/dL AST 14 L (15-37) IU/L ALT 19 (14-63) IU/L Alkaline Phosphatase 79 (46-116) U/L Total Protein 7.3 (6.4-8.2) g/dL Albumin 3.1 L (3.4-5.0) g/dL Globulin 4.2 H (2.6-4.0) g/dL Albumin/Globulin Ratio 0.7 L (0.9-1.6) Lipase (73-393) U/L Urine Color Urine Appearance Urine pH (5.0-8.0) Ur Specific [place] (1.001-1.035) Urine Protein (NEGATIVE) mg/dL Urine Glucose (UA) (NEGATIVE) mg/dL Urine Ketones (NEGATIVE) mg/dL Urine Occult Blood (NEGATIVE) Urine Nitrite (NEGATIVE) Urine Bilirubin (NEGATIVE) Urine Urobilinogen (<2.0) EU/dL Ur Leukocyte Esterase (NEGATIVE) Urine RBC (0-2/HPF) Urine WBC (0-5/HPF) Ur Epithelial Cells (NONE-FEW) Urine Bacteria (NEGATIVE) Urine Mucus (NONE-MOD) Ketones (NEG) SARS-CoV-2 RNA (RICHIE) (NEGATIVE) 10/16/20 10/16/20 Range/Units 06:18 06:30 WBC (4.0-11.0) K/uL RBC (4.50-5.90) M/uL Hgb (13.0-17.0) g/dL Hct (38.0-50.0) % MCV (80.0-98.0) fL MCH (27.0-32.0) pg MCHC (31.0-37.0) g/dL RDW Std Deviation (28.0-62.0) fl RDW Coeff of Erika (11.0-15.0) % Plt Count (150-400) K/uL MPV (7.40-12.00) fL Neut % (Auto) (48.0-80.0) % Lymph % (Auto) (16.0-40.0) % [place] % (Auto) (0.0-15.0) % Eos % (Auto) (0.0-7.0) % Baso % (Auto) (0.0-1.5) % Neut # (Auto) (1.4-5.7) K/uL Lymph # (Auto) (0.6-2.4) K/uL [place] # (Auto) (0.0-0.8) K/uL Eos # (Auto) (0.0-0.7) K/uL Baso # (Auto) (0.0-0.1) K/uL Nucleated RBC % /100WBC Nucleated RBCs # K/uL ABG pH (7.35-7.45) ABG pCO2 (35-45) mmHG ABG pO2 (80-105) mmHG ABG HCO3 (22-26) mEq/L ABG Total CO2 (23-27) mmol/L ABG Base Excess (-2.0-3.0) Sodium (136-148) mmol/L Potassium (3.5-5.1) mmol/L Chloride (98-107) mmol/L Carbon Dioxide (21.0-32.0) mmol/L BUN (7.0-18.0) mg/dL Creatinine (0.8-1.3) mg/dL Est Cr Clr Drug Dosing mL/min Estimated GFR (MDRD) ml/min Glucose (74-106) mg/dL POC Glucose 122 H (70-99) mg/dL Hemoglobin A1c 10.4 H (4.5 - 6.2) % Lactic Acid (0.4-2.0) mmol/L Calcium (8.5-10.1) mg/dL Phosphorus (2.6-4.7) mg/dL Magnesium (1.8-2.4) mg/dL Total Bilirubin (0.2-1.0) mg/dL AST (15-37) IU/L ALT (14-63) IU/L Alkaline Phosphatase (46-116) U/L Total Protein (6.4-8.2) g/dL Albumin (3.4-5.0) g/dL Globulin (2.6-4.0) g/dL Albumin/Globulin Ratio (0.9-1.6) Lipase (73-393) U/L Urine Color Urine Appearance Urine pH (5.0-8.0) Ur Specific [place] (1.001-1.035) Urine Protein (NEGATIVE) mg/dL Urine Glucose (UA) (NEGATIVE) mg/dL Urine Ketones (NEGATIVE) mg/dL Urine Occult Blood (NEGATIVE) Urine Nitrite (NEGATIVE) Urine Bilirubin (NEGATIVE) Urine Urobilinogen (<2.0) EU/dL Ur Leukocyte Esterase (NEGATIVE) Urine RBC (0-2/HPF) Urine WBC (0-5/HPF) Ur Epithelial Cells (NONE-FEW) Urine Bacteria (NEGATIVE) Urine Mucus (NONE-MOD) Ketones (NEG) SARS-CoV-2 RNA (RICHIE) (NEGATIVE) Result Diagrams: 10/16/20 06:18 10/16/20 06:18 Sepsis Event Note - Evaluation Sepsis Screening Result: Possible Sepsis Risk - Focused Exam Vital Signs: Vital Signs Temp Pulse Resp BP Pulse Ox 10/16/20 08:00 97.8 F 108 H 16 158/96 H 96 10/16/20 05:38 96.7 F L 100 16 144/90 H 98 - Problem List & Annotations (1) Acute pyelonephritis SNOMED Code(s): 83364615 Code(s): N10 - ACUTE PYELONEPHRITIS Status: Acute Current Visit: Yes (2) Abdominal pain SNOMED Code(s): 05443795 Code(s): R10.9 - UNSPECIFIED ABDOMINAL PAIN Status: Acute Current Visit: No (3) Dehydration SNOMED Code(s): 62610149 Code(s): E86.0 - DEHYDRATION Status: Acute Current Visit: No (4) Diabetes type 1, uncontrolled SNOMED Code(s): 07476850, 383238005 Code(s): E10.65 - TYPE 1 DIABETES MELLITUS WITH HYPERGLYCEMIA Status: Chronic Priority: Medium Current Visit: No Qualifiers: Glycemic state: with hyperglycemia Qualified Code(s): E10.65 - Type 1 diabetes mellitus with hyperglycemia (5) History of neurogenic bladder SNOMED Code(s): 568602130 Code(s): Z87.448 - PERSONAL HISTORY OF OTHER DISEASES OF URINARY SYSTEM [place] at[place]: Chronic Current Visit: No (6) Hx of opioid abuse SNOMED Code(s): 613084117 Code(s): F11.11 - OPIOID ABUSE, IN REMISSION Status: Chronic Current Visit: No (7) Medical non-compliance SNOMED Code(s): 235734199 Code(s): Z91.19 - PATIENT'S NONCOMPLIANCE W OTH MEDICAL TREATMENT AND REGIMEN Status: Chronic Priority: Medium Current Visit: No (8) 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 1. Pyelonephritis: -Continue Rocephin -Blood and urine cultures pending -Bladder scan has been asked. As patient was straight cath today with a total of 1000 mL removed via straight cath -Plan will be straight cath every 6 hours and as patient able to void per self -Discussed at length with patient he should not be receiving Benadryl as this is going to cause worsening urinary retention. 2. Gastroparesis: -Nausea and vomiting could be secondary to Suboxone withdrawal from the inability to take this over the last couple days. -Continue IV fluids, -prn antiemetics Phenergan and Reglan as needed -Last admission patient was placed on erythromycin secondary to GI recommendations, but symptoms quickly improved with reintroduction of Suboxone and stopping as needed morphine. 3. DM: -Patient not eating will decrease Lantus to 6 units twice daily -Continue NovoLog sliding scale for now hold off on premeal NovoLog until patient is eating -ADA diet as tolerated 4. History of opioid addiction -resume Suboxone VTE prophylaxis: SCDs due to recent upper GI bleed GI prophylaxis: On Protonix CODE STATUS: Full code Dispo: 1 to 2 days pending improvement
[2020-10-16] MEDS ORDERED: 50% Dextrose in Water 50 ML Syringe IVPUSH ONE (16:42)
[2020-10-16] MEDS: Dextrose 5%-0.45% NaCl 1,000 ML IV SCH (17:13)
[2020-10-16] MEDS ORDERED: cefTRIAXone 1 GM in Sodium Chloride 0.9% 50 ML IV SCH (18:00)
[2020-10-16] MEDS: cefTRIAXone 1 GM in Premix Bag 1 BAG IV ONE (18:20)
[2020-10-16] MEDS ORDERED: cefTRIAXone 1 GM in Premix Bag 1 BAG IV SCH (18:30)
[2020-10-17] MEDS: Metoclopramide 10 MG/2 ML SDV IVPUSH PRN ×2 (00:03→06:14)
[2020-10-17] MEDS: Ondansetron 4 MG/2 ML SDV IVPUSH PRN ×4 (02:59→22:00)
[2020-10-17] MEDS: Dextrose 5%-0.45% NaCl 1,000 ML IV SCH ×2 (03:02→18:11)
[2020-10-17] MEDS: SUBOXONE SCH ×2 (05:49→15:37)
[2020-10-17 06:36] LABS: BLOOD UREA NITROGEN,BUN 22 mg/dL (7.0-18.0); CARBON DIOXIDE,CO2 27.4 mmol/L (21.0-32.0); CHLORIDE,CL 110 mmol/L (98-107); GLUCOSE RANDOM 157 mg/dL (74-106); POTASSIUM,K 3.4 mmol/L (3.5-5.1); SODIUM,NA 143 mmol/L (136-148)
[2020-10-17] MEDS: Insulin Aspart 100 Units/ML 3 ML Pen SUBCUT SCH ×3 (09:23→17:04)
[2020-10-17] MEDS: Insulin Glargine,Human Rec. Analog 100 Units/ML 3 ML Pen SUBCUT SCH ×2 (09:30→22:05)
--- NOTE | 2020-10-17 11:48 | PCM.PN ---
- General Info Date of Service: 10/17/20 Admission Dx/Problem (Free Text): Admission Diagnosis/Problem Admission Diagnosis/Problem Acute pyelonephritis Subjective Update: Continues to have nausea and abdominal pain. Tolerating Suboxone barely with sips of water. Denies any chest pain. Reports he has been urinating per self overnight had 1 time straight cath yesterday for over 1 L in his bladder. Denies any fevers or chills. Functional Status: Reports: Ambulating, Urinating. Denies: Pain Controlled, Tolerating Diet - Review of Systems General: Reports: Malaise HEENT: Reports: No Symptoms. Denies: Headaches, Sore Throat, Visual Changes Pulmonary: Reports: No Symptoms. Denies: Shortness of Breath Cardiovascular: Reports: No Symptoms. Denies: Chest Pain Gastrointestinal: Reports: Abdominal Pain, Nausea, Vomiting Genitourinary: Reports: No Symptoms. Denies: Dysuria, Frequency Musculoskeletal: Reports: No Symptoms Skin: Reports: No Symptoms Neurological: Reports: No Symptoms Psychiatric: Reports: No Symptoms - Patient Data Vitals - Most Recent: Last Vital Signs Temp 97.3 F 10/17/20 00:00 Pulse 106 H 10/17/20 00:00 Resp 20 10/17/20 00:00 BP 136/93 H 10/17/20 00:00 Pulse Ox 96 10/17/20 00:00 Weight - Most Recent: 52.617 kg I&O - Last 24 Hours: Intake & Output 10/16/20 10/17/20 10/17/20 22:59 06:59 14:59 Intake Total 1370 1100 Output Total 1200 Balance 1370 -100 Lab Results Last 24 Hours: Laboratory Results - last 24 hr 10/16/20 10/16/20 10/16/20 Range/Units 13:11 16:37 18:24 WBC (4.0-11.0) K/uL RBC (4.50-5.90) M/uL Hgb (13.0-17.0) g/dL Hct (38.0-50.0) % MCV (80.0-98.0) fL MCH (27.0-32.0) pg MCHC (31.0-37.0) g/dL RDW Std Deviation (28.0-62.0) fl RDW Coeff of Erika (11.0-15.0) % Plt Count (150-400) K/uL MPV (7.40-12.00) fL Neut % (Auto) (48.0-80.0) % Lymph % (Auto) (16.0-40.0) % [place] % (Auto) (0.0-15.0) % Eos % (Auto) (0.0-7.0) % Baso % (Auto) (0.0-1.5) % Neut # (Auto) (1.4-5.7) K/uL Lymph # (Auto) (0.6-2.4) K/uL [place] # (Auto) (0.0-0.8) K/uL Eos # (Auto) (0.0-0.7) K/uL Baso # (Auto) (0.0-0.1) K/uL Nucleated RBC % /100WBC Nucleated RBCs # K/uL Sodium (136-148) mmol/L Potassium (3.5-5.1) mmol/L Chloride (98-107) mmol/L Carbon Dioxide (21.0-32.0) mmol/L BUN (7.0-18.0) mg/dL Creatinine (0.8-1.3) mg/dL Est Cr Clr Drug Dosing mL/min Estimated GFR (MDRD) ml/min Glucose (74-106) mg/dL POC Glucose 92 60 L 165 H (70-99) mg/dL Calcium (8.5-10.1) mg/dL Magnesium (1.8-2.4) mg/dL 10/16/20 10/17/20 10/17/20 Range/Units 21:05 05:35 05:35 WBC 4.71 (4.0-11.0) K/uL RBC 3.75 L (4.50-5.90) M/uL Hgb 9.8 L (13.0-17.0) g/dL Hct 30.4 L (38.0-50.0) % MCV 81.1 (80.0-98.0) fL MCH 26.1 L (27.0-32.0) pg MCHC 32.2 (31.0-37.0) g/dL RDW Std Deviation 41.6 (28.0-62.0) fl RDW Coeff of Erika 14 (11.0-15.0) % Plt Count 245 (150-400) K/uL MPV 9.70 (7.40-12.00) fL Neut % (Auto) 62.9 (48.0-80.0) % Lymph % (Auto) 31.0 (16.0-40.0) % [place] % (Auto) 5.9 (0.0-15.0) % Eos % (Auto) 0.0 (0.0-7.0) % Baso % (Auto) 0.2 (0.0-1.5) % Neut # (Auto) 3.0 (1.4-5.7) K/uL Lymph # (Auto) 1.5 (0.6-2.4) K/uL [place] # (Auto) 0.3 (0.0-0.8) K/uL Eos # (Auto) 0.0 (0.0-0.7) K/uL Baso # (Auto) 0.0 (0.0-0.1) K/uL Nucleated RBC % 0.0 /100WBC Nucleated RBCs # 0 K/uL Sodium 143 (136-148) mmol/L Potassium 3.4 L (3.5-5.1) mmol/L Chloride 110 H (98-107) mmol/L Carbon Dioxide 27.4 (21.0-32.0) mmol/L BUN 22 H (7.0-18.0) mg/dL Creatinine 0.9 (0.8-1.3) mg/dL Est Cr Clr Drug Dosing 95.00 mL/min Estimated GFR (MDRD) > 60.0 ml/min Glucose 157 H (74-106) mg/dL POC Glucose 186 H (70-99) mg/dL Calcium 8.4 L (8.5-10.1) mg/dL Magnesium 2.0 (1.8-2.4) mg/dL 10/17/20 10/17/20 Range/Units 05:46 11:23 WBC (4.0-11.0) K/uL RBC (4.50-5.90) M/uL Hgb (13.0-17.0) g/dL Hct (38.0-50.0) % MCV (80.0-98.0) fL MCH (27.0-32.0) pg MCHC (31.0-37.0) g/dL RDW Std Deviation (28.0-62.0) fl RDW Coeff of Erika (11.0-15.0) % Plt Count (150-400) K/uL MPV (7.40-12.00) fL Neut % (Auto) (48.0-80.0) % Lymph % (Auto) (16.0-40.0) % [place] % (Auto) (0.0-15.0) % Eos % (Auto) (0.0-7.0) % Baso % (Auto) (0.0-1.5) % Neut # (Auto) (1.4-5.7) K/uL Lymph # (Auto) (0.6-2.4) K/uL [place] # (Auto) (0.0-0.8) K/uL Eos # (Auto) (0.0-0.7) K/uL Baso # (Auto) (0.0-0.1) K/uL Nucleated RBC % /100WBC Nucleated RBCs # K/uL Sodium (136-148) mmol/L Potassium (3.5-5.1) mmol/L Chloride (98-107) mmol/L Carbon Dioxide (21.0-32.0) mmol/L BUN (7.0-18.0) mg/dL Creatinine (0.8-1.3) mg/dL Est Cr Clr Drug Dosing mL/min Estimated GFR (MDRD) ml/min Glucose (74-106) mg/dL POC Glucose 140 H 131 H (70-99) mg/dL Calcium (8.5-10.1) mg/dL Magnesium (1.8-2.4) mg/dL [place] Results Last 24 Hours: Microbiology 10/15/20 17:09 Aerobic Blood Culture - Preliminary Blood - Venous - Lab Draw NO GROWTH AFTER 1 DAY Anaerobic Blood Culture - Preliminary NO GROWTH AFTER 1 DAY 10/15/20 16:49 Aerobic Blood Culture - Preliminary Blood - Venous NO GROWTH AFTER 1 DAY Anaerobic Blood Culture - Preliminary NO GROWTH AFTER 1 DAY Med Orders - Current: Current Medications Dextrose/Water (50% Dextrose In Water 50 Ml Syringe) 50 ml IVPUSH ASDIRECTED PRN PRN Reason: Hypoglycemia Diphenhydramine HCl (Diphenhydramine 25 Mg Cap) 25 mg PO Q6H PRN PRN Reason: Itching Glucagon (Glucagon,Human Recombinant 1 Mg Vial) 1 mg IM ASDIRECTED PRN PRN Reason: Hypoglycemia Dextrose/Sodium Chloride (Dextrose 5%-1/2 Ns) 1,000 mls @ 125 mls/hr IV ASDIRECTED [facility] Last Admin: 10/17/20 03:02 Dose: 125 mls/hr Documented by: Ceftriaxone Sodium/Dextrose 1 (gm/ Premix) 50 mls @ 100 mls/hr IV Q24H [facility] Erythromycin Lactobionate 300 (mg/ Sodium Chloride) 100 mls @ 100 mls/hr IV Q8H [facility] Insulin Aspart (Insulin Aspart 100 Units/Ml 3 Ml Pen) 0 unit SUBCUT TIDAC [facility]; Protocol Last Admin: 10/17/20 09:23 Dose: Not Given Documented by: Insulin Glargine (Insulin Glargine,Human Rec. Analog 100 Units/Ml 3 Ml Pen) 6 units SUBCUT BID [facility] Last Admin: 10/17/20 09:30 Dose: 6 units Documented by: Ondansetron HCl (Ondansetron 4 Mg/2 Ml Sdv) 4 mg IVPUSH Q4H PRN PRN Reason: Nausea Last Admin: 10/17/20 02:59 Dose: 4 mg Documented by: Patient's Own MedicationSuboxone 8/2 Mg Tab 0.5 - 1 each .XX TID [facility] Last Admin: 10/17/20 05:49 Dose: 1 each Documented by: Discontinued Medications Dextrose/Water (50% Dextrose In Water 50 Ml Syringe) 25 ml IVPUSH ONETIME ONE Stop: 10/16/20 16:43 Last Admin: 10/16/20 17:12 Dose: 25 ml Documented by: Diphenhydramine HCl (Diphenhydramine 50 Mg/Ml Sdv) 25 mg IVPUSH ONETIME ONE Stop: 10/15/20 16:25 Last Admin: 10/15/20 16:32 Dose: 25 mg Documented by: Diphenhydramine HCl (Diphenhydramine 50 Mg/Ml Sdv) 25 mg IVPUSH ONETIME ONE Stop: 10/15/20 19:36 Last Admin: 10/15/20 19:43 Dose: 25 mg Documented by: Sodium Chloride (Normal Saline) 1,000 mls @ 999 mls/hr IV BOLUS ONE Stop: 10/15/20 16:57 Last Admin: 10/15/20 16:19 Dose: 999 mls/hr Documented by: Pantoprazole Sodium 80 mg/ (Sodium Chloride) 20 mls @ 420 mls/hr IVPUSH ONETIME ONE Stop: 10/15/20 16:04 Last Admin: 10/15/20 16:19 Dose: 420 mls/hr Documented by: Ceftriaxone Sodium/Dextrose 1 (gm/ Premix) 50 mls @ 100 mls/hr IV ONETIME ONE Stop: 10/15/20 18:36 Last Admin: 10/16/20 18:20 Dose: 100 mls/hr Documented by: Sodium Chloride (Normal Saline) 1,000 mls @ 125 mls/hr IV ASDIRECTED [facility] Last Admin: 10/16/20 08:01 Dose: 125 mls/hr Documented by: Ceftriaxone Sodium/Dextrose 1 (gm/ Premix) 50 mls @ 100 mls/hr IV Q24H [facility] Meropenem/Sodium Chloride (Meropenem In Ns 1 Gm/50 Ml) 50 mls @ 100 mls/hr IV Q8H [facility] Stop: 10/16/20 00:06 Last Admin: 10/16/20 01:32 Dose: Not Given Documented by: Ceftriaxone Sodium 1 gm/ (Sodium Chloride) 50 mls @ 100 mls/hr IV Q24H [facility] Last Admin: 10/16/20 19:01 Dose: Not Given Documented by: Ceftriaxone Sodium/Dextrose (Rocephin In Dextrose,Iso-Osm 1 Gm/50 Ml) Confirm Administered Dose 50 mls @ as directed .ROUTE .STK-MED ONE Stop: 10/16/20 18:12 Last Admin: 10/16/20 18:10 Dose: 100 mls/hr Documented by: Insulin Aspart (Insulin Aspart 100 Units/Ml 3 Ml Pen) 5 unit SUBCUT TIDAC [facility] Last Admin: 10/16/20 11:32 Dose: Not Given Documented by: Insulin Glargine (Insulin Glargine,Human Rec. Analog 100 Units/Ml 3 Ml Pen) 15 units SUBCUT BID [facility] Last Admin: 10/16/20 09:33 Dose: 15 units Documented by: Insulin Human Regular (Insulin Regular, Human 100 Units/Ml 10 Ml Vial) 4 unit SUBCUT ASDIRECTED ONE; Protocol Stop: 10/15/20 17:02 Last Admin: 10/15/20 17:57 Dose: 4 units Documented by: Iopamidol (Iopamidol 755 Mg/Ml 500 Ml Multipack Bottle) 65 ml IVPUSH ONETIME STA Stop: 10/15/20 18:44 Last Admin: 10/15/20 18:44 Dose: 65 ml Documented by: Metoclopramide HCl (Metoclopramide 10 Mg/2 Ml Sdv) 10 mg IVPUSH ONETIME ONE Stop: 10/15/20 19:35 Last Admin: 10/15/20 19:43 Dose: 10 mg Documented by: Metoclopramide HCl (Metoclopramide 10 Mg/2 Ml Sdv) 10 mg IVPUSH Q6H PRN PRN Reason: Nausea Last Admin: 10/17/20 06:14 Dose: 10 mg Documented by: Morphine Sulfate (Morphine 4 Mg/Ml Syringe) 4 mg IVPUSH ONETIME ONE Stop: 10/15/20 16:04 Last Admin: 10/15/20 16:24 Dose: 4 mg Documented by: Ondansetron HCl (Ondansetron 4 Mg/2 Ml Sdv) 4 mg IVPUSH ONETIME ONE Stop: 10/15/20 15:59 Last Admin: 10/15/20 16:19 Dose: 4 mg Documented by: Patient's Own MedicationSuboxone 8/2 Mg Tab 3 each .XX DAILY [facility] Last Admin: 10/15/20 22:57 Dose: 0.5 each Documented by: Patient Own Medication (Patient's Own Medication 1 Each) 3 each .XX TID [facility] Promethazine HCl (Promethazine 25 Mg/Ml Sdv) 25 mg IM Q6H PRN PRN Reason: Nausea - Exam Quality Assessment: DVT Prophylaxis (SCDs only). No: Supplemental Oxygen General: Alert, Oriented, Cooperative, No Acute Distress Lungs: Clear to Auscultation, Normal Respiratory Effort Cardiovascular: Regular Rate, Regular Rhythm GI/Abdominal Exam: Normal Bowel Sounds, Soft, Tender (Epigastric and left upper quadrant) Extremities: Normal Inspection, Normal Range of Motion, Non-Tender, No Pedal Edema Neurological: No New Focal Deficit Psy/Mental Status: Alert, Normal Affect, Normal Mood - Patient Data Lab Results Last 24 hrs: Laboratory Results - last 24 hr 10/16/20 10/16/20 10/16/20 Range/Units 13:11 16:37 18:24 WBC (4.0-11.0) K/uL RBC (4.50-5.90) M/uL Hgb (13.0-17.0) g/dL Hct (38.0-50.0) % MCV (80.0-98.0) fL MCH (27.0-32.0) pg MCHC (31.0-37.0) g/dL RDW Std Deviation (28.0-62.0) fl RDW Coeff of Erika (11.0-15.0) % Plt Count (150-400) K/uL MPV (7.40-12.00) fL Neut % (Auto) (48.0-80.0) % Lymph % (Auto) (16.0-40.0) % [place] % (Auto) (0.0-15.0) % Eos % (Auto) (0.0-7.0) % Baso % (Auto) (0.0-1.5) % Neut # (Auto) (1.4-5.7) K/uL Lymph # (Auto) (0.6-2.4) K/uL [place] # (Auto) (0.0-0.8) K/uL Eos # (Auto) (0.0-0.7) K/uL Baso # (Auto) (0.0-0.1) K/uL Nucleated RBC % /100WBC Nucleated RBCs # K/uL Sodium (136-148) mmol/L Potassium (3.5-5.1) mmol/L Chloride (98-107) mmol/L Carbon Dioxide (21.0-32.0) mmol/L BUN (7.0-18.0) mg/dL Creatinine (0.8-1.3) mg/dL Est Cr Clr Drug Dosing mL/min Estimated GFR (MDRD) ml/min Glucose (74-106) mg/dL POC Glucose 92 60 L 165 H (70-99) mg/dL Calcium (8.5-10.1) mg/dL Magnesium (1.8-2.4) mg/dL 10/16/20 10/17/20 10/17/20 Range/Units 21:05 05:35 05:35 WBC 4.71 (4.0-11.0) K/uL RBC 3.75 L (4.50-5.90) M/uL Hgb 9.8 L (13.0-17.0) g/dL Hct 30.4 L (38.0-50.0) % MCV 81.1 (80.0-98.0) fL MCH 26.1 L (27.0-32.0) pg MCHC 32.2 (31.0-37.0) g/dL RDW Std Deviation 41.6 (28.0-62.0) fl RDW Coeff of Erika 14 (11.0-15.0) % Plt Count 245 (150-400) K/uL MPV 9.70 (7.40-12.00) fL Neut % (Auto) 62.9 (48.0-80.0) % Lymph % (Auto) 31.0 (16.0-40.0) % [place] % (Auto) 5.9 (0.0-15.0) % Eos % (Auto) 0.0 (0.0-7.0) % Baso % (Auto) 0.2 (0.0-1.5) % Neut # (Auto) 3.0 (1.4-5.7) K/uL Lymph # (Auto) 1.5 (0.6-2.4) K/uL [place] # (Auto) 0.3 (0.0-0.8) K/uL Eos # (Auto) 0.0 (0.0-0.7) K/uL Baso # (Auto) 0.0 (0.0-0.1) K/uL Nucleated RBC % 0.0 /100WBC Nucleated RBCs # 0 K/uL Sodium 143 (136-148) mmol/L Potassium 3.4 L (3.5-5.1) mmol/L Chloride 110 H (98-107) mmol/L Carbon Dioxide 27.4 (21.0-32.0) mmol/L BUN 22 H (7.0-18.0) mg/dL Creatinine 0.9 (0.8-1.3) mg/dL Est Cr Clr Drug Dosing 95.00 mL/min Estimated GFR (MDRD) > 60.0 ml/min Glucose 157 H (74-106) mg/dL POC Glucose 186 H (70-99) mg/dL Calcium 8.4 L (8.5-10.1) mg/dL Magnesium 2.0 (1.8-2.4) mg/dL 10/17/20 10/17/20 Range/Units 05:46 11:23 WBC (4.0-11.0) K/uL RBC (4.50-5.90) M/uL Hgb (13.0-17.0) g/dL Hct (38.0-50.0) % MCV (80.0-98.0) fL MCH (27.0-32.0) pg MCHC (31.0-37.0) g/dL RDW Std Deviation (28.0-62.0) fl RDW Coeff of Erika (11.0-15.0) % Plt Count (150-400) K/uL MPV (7.40-12.00) fL Neut % (Auto) (48.0-80.0) % Lymph % (Auto) (16.0-40.0) % [place] % (Auto) (0.0-15.0) % Eos % (Auto) (0.0-7.0) % Baso % (Auto) (0.0-1.5) % Neut # (Auto) (1.4-5.7) K/uL Lymph # (Auto) (0.6-2.4) K/uL [place] # (Auto) (0.0-0.8) K/uL Eos # (Auto) (0.0-0.7) K/uL Baso # (Auto) (0.0-0.1) K/uL Nucleated RBC % /100WBC Nucleated RBCs # K/uL Sodium (136-148) mmol/L Potassium (3.5-5.1) mmol/L Chloride (98-107) mmol/L Carbon Dioxide (21.0-32.0) mmol/L BUN (7.0-18.0) mg/dL Creatinine (0.8-1.3) mg/dL Est Cr Clr Drug Dosing mL/min Estimated GFR (MDRD) ml/min Glucose (74-106) mg/dL POC Glucose 140 H 131 H (70-99) mg/dL Calcium (8.5-10.1) mg/dL Magnesium (1.8-2.4) mg/dL Result Diagrams: 10/17/20 05:35 10/17/20 05:35 [place] Results Last 24 hrs: Microbiology 10/15/20 17:09 Aerobic Blood Culture - Preliminary Blood - Venous - Lab Draw NO GROWTH AFTER 1 DAY Anaerobic Blood Culture - Preliminary NO GROWTH AFTER 1 DAY 10/15/20 16:49 Aerobic Blood Culture - Preliminary Blood - Venous NO GROWTH AFTER 1 DAY Anaerobic Blood Culture - Preliminary NO GROWTH AFTER 1 DAY Sepsis Event Note - Evaluation Sepsis Screening Result: Possible Sepsis Risk - Focused Exam Vital Signs: Vital Signs Temp Pulse Resp BP Pulse Ox 10/17/20 00:00 97.3 F 106 H 20 136/93 H 96 - Problem List & Annotations (1) Acute pyelonephritis SNOMED Code(s): 35556530 Code(s): N10 - ACUTE PYELONEPHRITIS Status: Acute Current Visit: Yes (2) Abdominal pain SNOMED Code(s): 99651131 Code(s): R10.9 - UNSPECIFIED ABDOMINAL PAIN Status: Acute Current Visit: No (3) Dehydration SNOMED Code(s): 86512297 Code(s): E86.0 - DEHYDRATION Status: Acute Current Visit: No (4) Diabetes type 1, uncontrolled SNOMED Code(s): 33559700, 313773552 Code(s): E10.65 - TYPE 1 DIABETES MELLITUS WITH HYPERGLYCEMIA Status: Chronic Priority: Medium Current Visit: No Qualifiers: Glycemic state: with hyperglycemia Qualified Code(s): E10.65 - Type 1 diabetes mellitus with hyperglycemia (5) History of neurogenic bladder SNOMED Code(s): 561376029 Code(s): Z87.448 - PERSONAL HISTORY OF OTHER DISEASES OF URINARY SYSTEM Status: Chronic Current Visit: No (6) Hx of opioid abuse SNOMED Code(s): 802689995 Code(s): F11.11 - OPIOID ABUSE, IN REMISSION Status: Chronic Current V isit: No (7) Medical non-compliance SNOMED Code(s): 896079661 Code(s): Z91.19 - PATIENT'S NONCOMPLIANCE W OTH MEDICAL TREATMENT AND REGIMEN Status: Chronic Priority: Medium Current Visit: No (8) 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 SNOMED Code(s): 449261677 Code(s): E10.40 - TYPE 1 DIABETES MELLITUS WITH DIABETIC NEUROPATHY, UNSP Status: Chronic Priority: Medium Current Visit: No (9) Diabetic gastroparesis SNOMED Code(s): 807305923 Code(s): E11.43 - TYPE 2 DIABETES W DIABETIC AUTONOMIC (POLY)NEUROPATHY; K31.84 - GASTROPARESIS Status: Acute Priority: Medium Current Visit: No - Problem List Review Problem List Initiated/Reviewed/Updated: Yes - My Orders Last 24 Hours: My Active Orders 10/16/20 14:15 Insert Clements Catheter [Insert Urinary Catheter] [OM.PC] Q6H Urinary Catheter Assessment [RC] ASDIRECTED 10/16/20 20:15 Insert Clements Catheter [Insert Urinary Catheter] [OM.PC] Q6H 10/16/20 21:00 Insulin Glarg,Human.Rec.Analog [LantUS Solostar] 6 units SUBCUT BID 10/17/20 02:15 Insert Clements Catheter [Insert Urinary Catheter] [OM.PC] Q6H 10/17/20 08:15 Insert Clements Catheter [Insert Urinary Catheter] [OM.PC] Q6H 10/17/20 10:41 EKG 12 Lead [EKG Documentation Completion] [RC] ROUTINE 10/17/20 12:00 Erythromycin Lactobionate [Erythrocin Lactobionate] 300 mg Sodium Chloride 0.9% [Normal Saline] 100 ml IV Q8H 10/17/20 14:15 Insert Clements Catheter [Insert Urinary Catheter] [OM.PC] Q6H 10/17/20 20:15 Insert Clements Catheter [Insert Urinary Catheter] [OM.PC] Q6H 10/17/20 21:00 EKG 12 Lead [EKG Documentation Completion] [RC] Q12H 10/18/20 02:15 Insert Clements Catheter [Insert Urinary Catheter] [OM.PC] Q6H 10/18/20 05:11 BASIC METABOLIC PANEL,BMP [CHEM] AM CBC WITH AUTO DIFF [HEME] AM MAGNESIUM [CHEM] AM 10/18/20 08:15 Insert Clements Catheter [Insert Urinary Catheter] [OM.PC] Q6H 10/18/20 14:15 Insert Clements Catheter [Insert Urinary Catheter] [OM.PC] Q6H 10/18/20 20:15 Insert Clements Catheter [Insert Urinary Catheter] [OM.PC] Q6H 10/19/20 05:11 BASIC METABOLIC PANEL,BMP [CHEM] AM CBC WITH AUTO DIFF [HEME] AM MAGNESIUM [CHEM] AM 10/20/20 05:11 BASIC METABOLIC PANEL,BMP [CHEM] AM CBC WITH AUTO DIFF [HEME] AM MAGNESIUM [CHEM] AM - Plan Plan:: 25 yo male with pmh of DM admitted for pyelonephritis and gastroparesis. 1. Pyelonephritis: -Continue Rocephin -Blood and urine cultures pending -Bladder scan has been throughout the day straight cath as needed for inability to urinate. -Discussed at length with patient he should not be receiving Benadryl as this is going to cause worsening urinary retention. 2. Gastroparesis: -Nausea and vomiting could be secondary to Suboxone withdrawal from the inability to take this over the last couple days. -We will start erythromycin 300 mg every 8 hours IV monitor improvement in abdominal pain and nausea vomiting -Continue IV fluids, -prn antiemetics Phenergan and Reglan as needed -Last admission patient was placed on erythromycin secondary to GI recommendations, but symptoms quickly improved with reintroduction of Suboxone and stopping as needed morphine. 3. DM type I: -Patient not eating will decrease Lantus to 6 units twice daily -D5 half NS started yesterday for hypoglycemia continue to monitor -Continue NovoLog sliding scale for now hold off on premeal NovoLog until patient is eating -ADA diet as tolerated 4. History of opioid addiction -resume Suboxone -Did discuss possibility of sublingual Suboxone and that he should discuss this with his provider the next refill he has. VTE prophylaxis: SCDs due to recent upper GI bleed GI prophylaxis: On Protonix CODE STATUS: Full code Dispo: 1 to 2 days pending improvement
[2020-10-17] MEDS ORDERED: ERYTHROMYCIN LACTOBIONATE IV SCH (12:00)
[2020-10-17] MEDS ORDERED: SODIUM CHLORIDE 0.9% IV SCH (12:00)
--- NOTE | 2020-10-17 12:11 | PCM.SN.2 ---
- Free Text/Narrative Note: Called to bedside for IV start. 20Ga IV placed to right hand with assistance of tourniquet following prep with chlorhexidine. patient denies pain and catheter flushes easily.
[2020-10-17] MEDS: ERYTHROMYCIN LACTOBIONATE IV SCH ×2 (13:32→22:09)
[2020-10-17] MEDS: SODIUM CHLORIDE 0.9% IV SCH ×2 (13:32→22:09)
[2020-10-17] MEDS: cefTRIAXone 1 GM in Premix Bag 1 BAG IV SCH (18:11)
[2020-10-18] MEDS: SUBOXONE SCH ×4 (00:43→21:06)
[2020-10-18] MEDS: Dextrose 5%-0.45% NaCl 1,000 ML IV SCH ×2 (05:10→15:02)
[2020-10-18] MEDS: Ondansetron 4 MG/2 ML SDV IVPUSH PRN ×3 (05:10→21:06)
[2020-10-18] MEDS: SODIUM CHLORIDE 0.9% IV SCH ×3 (05:17→21:08)
[2020-10-18] MEDS: ERYTHROMYCIN LACTOBIONATE IV SCH ×3 (05:17→21:08)
[2020-10-18 06:55] LABS: BLOOD UREA NITROGEN,BUN 19 mg/dL (7.0-18.0); CARBON DIOXIDE,CO2 24.8 mmol/L (21.0-32.0); CHLORIDE,CL 107 mmol/L (98-107); GLUCOSE RANDOM 261 mg/dL (74-106); POTASSIUM,K 3.3 mmol/L (3.5-5.1); SODIUM,NA 140 mmol/L (136-148)
--- NOTE | 2020-10-18 08:05 | PCM.PN ---
- General Info Date of Service: 10/18/20 Admission Dx/Problem (Free Text): Admission Diagnosis/Problem Admission Diagnosis/Problem Acute pyelonephritis Subjective Update: Continues to have nausea. Refusing straight cath but did get straight cath this morning as he feels his bladder was distended. Denies any chest pain or shortness of breath. Denies vomiting. Denies any opioid withdrawal symptoms. Functional Status: Reports: Pain Controlled, Ambulating, Urinating (Urinating per self at times otherwise being straight cathed). Denies: Tolerating Diet - Review of Systems General: Reports: No Symptoms. Denies: Malaise HEENT: Reports: No Symptoms. Denies: Headaches, Visual Changes Pulmonary: Reports: No Symptoms. Denies: Shortness of Breath Cardiovascular: Reports: No Symptoms. Denies: Chest Pain Gastrointestinal: Reports: Abdominal Pain, Nausea. Denies: Vomiting Genitourinary: Reports: Retention Musculoskeletal: Reports: No Symptoms Skin: Reports: No Symptoms Neurological: Reports: No Symptoms Psychiatric: Reports: No Symptoms - Patient Data Vitals - Most Recent: Last Vital Signs Temp 98.9 F 10/18/20 04:00 Pulse 96 10/18/20 04:00 Resp 18 10/18/20 04:00 BP 142/86 H 10/18/20 04:00 Pulse Ox 97 10/18/20 04:00 Weight - Most Recent: 52.617 kg I&O - Last 24 Hours: Intake & Output 10/17/20 10/18/20 10/18/20 22:59 06:59 14:59 Intake Total 100 Output Total 1000 Balance -900 Lab Results Last 24 Hours: Laboratory Results - last 24 hr 10/17/20 10/17/20 10/17/20 Range/Units 11:23 16:51 22:04 WBC (4.0-11.0) K/uL RBC (4.50-5.90) M/uL Hgb (13.0-17.0) g/dL Hct (38.0-50.0) % MCV (80.0-98.0) fL MCH (27.0-32.0) pg MCHC (31.0-37.0) g/dL RDW Std Deviation (28.0-62.0) fl RDW Coeff of Erika (11.0-15.0) % Plt Count (150-400) K/uL MPV (7.40-12.00) fL Neut % (Auto) (48.0-80.0) % Lymph % (Auto) (16.0-40.0) % [place] % (Auto) (0.0-15.0) % Eos % (Auto) (0.0-7.0) % Baso % (Auto) (0.0-1.5) % Neut # (Auto) (1.4-5.7) K/uL Lymph # (Auto) (0.6-2.4) K/uL [place] # (Auto) (0.0-0.8) K/uL Eos # (Auto) (0.0-0.7) K/uL Baso # (Auto) (0.0-0.1) K/uL Nucleated RBC % /100WBC Nucleated RBCs # K/uL Sodium (136-148) mmol/L Potassium (3.5-5.1) mmol/L Chloride (98-107) mmol/L Carbon Dioxide (21.0-32.0) mmol/L BUN (7.0-18.0) mg/dL Creatinine (0.8-1.3) mg/dL Est Cr Clr Drug Dosing mL/min Estimated GFR (MDRD) ml/min Glucose (74-106) mg/dL POC Glucose 131 H 169 H 210 H (70-99) mg/dL Calcium (8.5-10.1) mg/dL Magnesium (1.8-2.4) mg/dL 10/18/20 10/18/20 Range/Units 06:05 06:05 WBC 4.20 (4.0-11.0) K/uL RBC 4.05 L (4.50-5.90) M/uL Hgb 10.4 L (13.0-17.0) g/dL Hct 32.3 L (38.0-50.0) % MCV 79.8 L (80.0-98.0) fL MCH 25.7 L (27.0-32.0) pg MCHC 32.2 (31.0-37.0) g/dL RDW Std Deviation 39.4 (28.0-62.0) fl RDW Coeff of Erika 14 (11.0-15.0) % Plt Count 246 (150-400) K/uL MPV 9.70 (7.40-12.00) fL Neut % (Auto) 56.7 (48.0-80.0) % Lymph % (Auto) 36.4 (16.0-40.0) % [place] % (Auto) 5.7 (0.0-15.0) % Eos % (Auto) 0.7 (0.0-7.0) % Baso % (Auto) 0.5 (0.0-1.5) % Neut # (Auto) 2.4 (1.4-5.7) K/uL Lymph # (Auto) 1.5 (0.6-2.4) K/uL [place] # (Auto) 0.2 (0.0-0.8) K/uL Eos # (Auto) 0.0 (0.0-0.7) K/uL Baso # (Auto) 0.0 (0.0-0.1) K/uL Nucleated RBC % 0.0 /100WBC Nucleated RBCs # 0 K/uL Sodium 140 (136-148) mmol/L Potassium 3.3 L (3.5-5.1) mmol/L Chloride 107 (98-107) mmol/L Carbon Dioxide 24.8 (21.0-32.0) mmol/L BUN 19 H (7.0-18.0) mg/dL Creatinine 0.9 (0.8-1.3) mg/dL Est Cr Clr Drug Dosing 95.00 mL/min Estimated GFR (MDRD) > 60.0 ml/min Glucose 261 H (74-106) mg/dL POC Glucose (70-99) mg/dL Calcium 8.4 L (8.5-10.1) mg/dL Magnesium 1.9 (1.8-2.4) mg/dL Donaldo Results Last 24 Hours: Microbiology 10/15/20 17:09 Aerobic Blood Culture - Preliminary Blood - Venous - Lab Draw NO GROWTH AFTER 2 DAYS Anaerobic Blood Culture - Preliminary NO GROWTH AFTER 2 DAYS 10/15/20 16:49 Aerobic Blood Culture - Preliminary Blood - Venous NO GROWTH AFTER 2 DAYS Anaerobic Blood Culture - Preliminary NO GROWTH AFTER 2 DAYS 10/15/20 17:11 Urine Culture - Preliminary Urine Gram Negative Rods Med Orders - Current: Current Medications Dextrose/Water (50% Dextrose In Water 50 Ml Syringe) 50 ml IVPUSH ASDIRECTED PRN PRN Reason: Hypoglycemia Diphenhydramine HCl (Diphenhydramine 25 Mg Cap) 25 mg PO Q6H PRN PRN Reason: Itching Glucagon (Glucagon,Human Recombinant 1 Mg Vial) 1 mg IM ASDIRECTED PRN PRN Reason: Hypoglycemia Dextrose/Sodium Chloride (Dextrose 5%-1/2 Ns) 1,000 mls @ 125 mls/hr IV ASDIRECTED [facility] Last Admin: 10/18/20 05:10 Dose: 125 mls/hr Documented by: Ceftriaxone Sodium/Dextrose 1 (gm/ Premix) 50 mls @ 100 mls/hr IV Q24H [facility] Last Admin: 10/17/20 18:11 Dose: 100 mls/hr Documented by: Erythromycin Lactobionate 300 (mg/ Sodium Chloride) 100 mls @ 100 mls/hr IV Q8H [facility] Last Admin: 10/18/20 05:17 Dose: 100 mls/hr Documented by: Insulin Aspart (Insulin Aspart 100 Units/Ml 3 Ml Pen) 0 unit SUBCUT TIDAC [facility]; Protocol Last Admin: 10/17/20 17:04 Dose: Not Given Documented by: Insulin Glargine (Insulin Glargine,Human Rec. Analog 100 Units/Ml 3 Ml Pen) 6 units SUBCUT BID [facility] Last Admin: 10/17/20 22:05 Dose: 6 units Documented by: Ondansetron HCl (Ondansetron 4 Mg/2 Ml Sdv) 4 mg IVPUSH Q4H PRN PRN Reason: Nausea Last Admin: 10/18/20 05:10 Dose: 4 mg Documented by: Patient's Own MedicationSuboxone 8/2 Mg Tab 0.5 - 1 each .XX TID [facility] Last Admin: 10/18/20 06:53 Dose: Not Given Documented by: Discontinued Medications Dextrose/Water (50% Dextrose In Water 50 Ml Syringe) 25 ml IVPUSH ONETIME ONE Stop: 10/16/20 16:43 Last Admin: 10/16/20 17:12 Dose: 25 ml Documented by: Diphenhydramine HCl (Diphenhydramine 50 Mg/Ml Sdv) 25 mg IVPUSH ONETIME ONE Stop: 10/15/20 16:25 Last Admin: 10/15/20 16:32 Dose: 25 mg Documented by: Diphenhydramine HCl (Diphenhydramine 50 Mg/Ml Sdv) 25 mg IVPUSH ONETIME ONE Stop: 10/15/20 19:36 Last Admin: 10/15/20 19:43 Dose: 25 mg Documented by: Sodium Chloride (Normal Saline) 1,000 mls @ 999 mls/hr IV BOLUS ONE Stop: 10/15/20 16:57 Last Admin: 10/15/20 16:19 Dose: 999 mls/hr Documented by: Pantoprazole Sodium 80 mg/ (Sodium Chloride) 20 mls @ 420 mls/hr IVPUSH ONETIME ONE Stop: 10/15/20 16:04 Last Admin: 10/15/20 16:19 Dose: 420 mls/hr Documented by: Ceftriaxone Sodium/Dextrose 1 (gm/ Premix) 50 mls @ 100 mls/hr IV ONETIME ONE Stop: 10/15/20 18:36 Last Admin: 10/16/20 18:20 Dose: 100 mls/hr Documented by: Sodium Chloride (Normal Saline) 1,000 mls @ 125 mls/hr IV ASDIRECTED [facility] Last Admin: 10/16/20 08:01 Dose: 125 mls/hr Documented by: Ceftriaxone Sodium/Dextrose 1 (gm/ Premix) 50 mls @ 100 mls/hr IV Q24H [facility] Meropenem/Sodium Chloride (Meropenem In Ns 1 Gm/50 Ml) 50 mls @ 100 mls/hr IV Q8H [facility] Stop: 10/16/20 00:06 Last Admin: 10/16/20 01:32 Dose: Not Given Documented by: Ceftriaxone Sodium 1 gm/ (Sodium Chloride) 50 mls @ 100 mls/hr IV Q24H [facility] Last Admin: 10/16/20 19:01 Dose: Not Given Documented by: Ceftriaxone Sodium/Dextrose (Rocephin In Dextrose,Iso-Osm 1 Gm/50 Ml) Confirm Administered Dose 50 mls @ as directed .ROUTE .STK-MED ONE Stop: 10/16/20 18:12 Last Admin: 10/16/20 18:10 Dose: 100 mls/hr Documented by: Erythromycin Lactobionate 300 (mg/ Sodium Chloride) 100 mls @ 100 mls/hr IV Q8H [facility] Last Admin: 10/17/20 19:39 Dose: Not Given Documented by: Insulin Aspart (Insulin Aspart 100 Units/Ml 3 Ml Pen) 5 unit SUBCUT TIDAC [facility] Last Admin: 10/16/20 11:32 Dose: Not Given Documented by: Insulin Glargine (Insulin Glargine,Human Rec. Analog 100 Units/Ml 3 Ml Pen) 15 units SUBCUT BID [facility] Last Admin: 10/16/20 09:33 Dose: 15 units Documented by: Insulin Human Regular (Insulin Regular, Human 100 Units/Ml 10 Ml Vial) 4 unit SUBCUT ASDIRECTED ONE; Protocol Stop: 10/15/20 17:02 Last Admin: 10/15/20 17:57 Dose: 4 units Documented by: Iopamidol (Iopamidol 755 Mg/Ml 500 Ml Multipack Bottle) 65 ml IVPUSH ONETIME STA Stop: 10/15/20 18:44 Last Admin: 10/15/20 18:44 Dose: 65 ml Documented by: Metoclopramide HCl (Metoclopramide 10 Mg/2 Ml Sdv) 10 mg IVPUSH ONETIME ONE Stop: 10/15/20 19:35 Last Admin: 10/15/20 19:43 Dose: 10 mg Documented by: Metoclopramide HCl (Metoclopramide 10 Mg/2 Ml Sdv) 10 mg IVPUSH Q6H PRN PRN Reason: Nausea Last Admin: 10/17/20 06:14 Dose: 10 mg Documented by: Morphine Sulfate (Morphine 4 Mg/Ml Syringe) 4 mg IVPUSH ONETIME ONE Stop: 10/15/20 16:04 Last Admin: 10/15/20 16:24 Dose: 4 mg Documented by: Ondansetron HCl (Ondansetron 4 Mg/2 Ml Sdv) 4 mg IVPUSH ONETIME ONE Stop: 10/15/20 15:59 Last Admin: 10/15/20 16:19 Dose: 4 mg Documented by: Patient's Own MedicationSuboxone 8/2 Mg Tab 3 each .XX DAILY [facility] Last Admin: 10/15/20 22:57 Dose: 0.5 each Documented by: Patient Own Medication (Patient's Own Medication 1 Each) 3 each .XX TID [facility] Promethazine HCl (Promethazine 25 Mg/Ml Sdv) 25 mg IM Q6H PRN PRN Reason: Nausea - Exam Urinary Catheter Total Time: 0Days 3Hours General: Alert, Oriented. No: Cooperative (Does not open eyes for exam does not want to be moved or touched does allow listening to heart and lungs as well as minimal abdominal assessment) Lungs: Clear to Auscultation, Normal Respiratory Effort Cardiovascular: Regular Rate, Regular Rhythm GI/Abdominal Exam: Normal Bowel Sounds, Soft, Tender Extremities: Normal Inspection, Normal Range of Motion, Non-Tender, No Pedal Edema Psy/Mental Status: Alert, Normal Affect, Normal Mood - Patient Data Lab Results Last 24 hrs: Laboratory Results - last 24 hr 10/17/20 10/17/20 10/17/20 Range/Units 11:23 16:51 22:04 WBC (4.0-11.0) K/uL RBC (4.50-5.90) M/uL Hgb (13.0-17.0) g/dL Hct (38.0-50.0) % MCV (80.0-98.0) fL MCH (27.0-32.0) pg MCHC (31.0-37.0) g/dL RDW Std Deviation (28.0-62.0) fl RDW Coeff of Erika (11.0-15.0) % Plt Count (150-400) K/uL MPV (7.40-12.00) fL Neut % (Auto) (48.0-80.0) % Lymph % (Auto) (16.0-40.0) % [place] % (Auto) (0.0-15.0) % Eos % (Auto) (0.0-7.0) % Baso % (Auto) (0.0-1.5) % Neut # (Auto) (1.4-5.7) K/uL Lymph # (Auto) (0.6-2.4) K/uL [place] # (Auto) (0.0-0.8) K/uL Eos # (Auto) (0.0-0.7) K/uL Baso # (Auto) (0.0-0.1) K/uL Nucleated RBC % /100WBC Nucleated RBCs # K/uL Sodium (136-148) mmol/L Potassium (3.5-5.1) mmol/L Chloride (98-107) mmol/L Carbon Dioxide (21.0-32.0) mmol/L BUN (7.0-18.0) mg/dL Creatinine (0.8-1.3) mg/dL Est Cr Clr Drug Dosing mL/min Estimated GFR (MDRD) ml/min Glucose (74-106) mg/dL POC Glucose 131 H 169 H 210 H (70-99) mg/dL Calcium (8.5-10.1) mg/dL Magnesium (1.8-2.4) mg/dL 10/18/20 10/18/20 Range/Units 06:05 06:05 WBC 4.20 (4.0-11.0) K/uL RBC 4.05 L (4.50-5.90) M/uL Hgb 10.4 L (13.0-17.0) g/dL Hct 32.3 L (38.0-50.0) % MCV 79.8 L (80.0-98.0) fL MCH 25.7 L (27.0-32.0) pg MCHC 32.2 (31.0-37.0) g/dL RDW Std Deviation 39.4 (28.0-62.0) fl RDW Coeff of Erika 14 (11.0-15.0) % Plt Count 246 (150-400) K/uL MPV 9.70 (7.40-12.00) fL Neut % (Auto) 56.7 (48.0-80.0) % Lymph % (Auto) 36.4 (16.0-40.0) % [place] % (Auto) 5.7 (0.0-15.0) % Eos % (Auto) 0.7 (0.0-7.0) % Baso % (Auto) 0.5 (0.0-1.5) % Neut # (Auto) 2.4 (1.4-5.7) K/uL Lymph # (Auto) 1.5 (0.6-2.4) K/uL [place] # (Auto) 0.2 (0.0-0.8) K/uL Eos # (Auto) 0.0 (0.0-0.7) K/uL Baso # (Auto) 0.0 (0.0-0.1) K/uL Nucleated RBC % 0.0 /100WBC Nucleated RBCs # 0 K/uL Sodium 140 (136-148) mmol/L Potassium 3.3 L (3.5-5.1) mmol/L Chloride 107 (98-107) mmol/L Carbon Dioxide 24.8 (21.0-32.0) mmol/L BUN 19 H (7.0-18.0) mg/dL Creatinine 0.9 (0.8-1.3) mg/dL Est Cr Clr Drug Dosing 95.00 mL/min Estimated GFR (MDRD) > 60.0 ml/min Glucose 261 H (74-106) mg/dL POC Glucose (70-99) mg/dL Calcium 8.4 L (8.5-10.1) mg/dL Magnesium 1.9 (1.8-2.4) mg/dL Result Diagrams: 10/18/20 06:05 10/18/20 06:05 Donaldo Results Last 24 hrs: Microbiology 10/15/20 17:09 Aerobic Blood Culture - Preliminary Blood - Venous - Lab Draw NO GROWTH AFTER 2 DAYS Anaerobic Blood Culture - Preliminary NO GROWTH AFTER 2 DAYS 10/15/20 16:49 Aerobic Blood Culture - Preliminary Blood - Venous NO GROWTH AFTER 2 DAYS Anaerobic Blood Culture - Preliminary NO GROWTH AFTER 2 DAYS 10/15/20 17:11 Urine Culture - Preliminary Urine Gram Negative Rods Sepsis Event Note - Evaluation Sepsis Screening Result: No Definite Risk - Focused Exam Vital Signs: Vital Signs Temp Pulse Resp BP Pulse Ox 10/18/20 04:00 98.9 F 96 18 142/86 H 97 10/18/20 00:00 98.1 F 90 19 154/90 H 97 10/17/20 22:00 98.1 F 101 H 20 149/89 H 96 - Problem List & Annotations (1) Acute pyelonephritis SNOMED Code(s): 56607269 Code(s): N10 - ACUTE PYELONEPHRITIS Status: Acute Current Visit: Yes (2) Abdominal pain SNOMED Code(s): 89528650 Code(s): R10.9 - UNSPECIFIED ABDOMINAL PAIN Status: Acute Current Visit: No (3) Dehydration SNOMED Code(s): 70976135 Code(s): E86.0 - DEHYDRATION Status: Acute Current Visit: No (4) Diabetes type 1, uncontrolled SNOMED Code(s): 76681602, 240115475 Code(s): E10.65 - TYPE 1 DIABETES MELLITUS WITH HYPERGLYCEMIA Status: Chronic Priority: Medium Current Visit: No Qualifiers: Glycemic state: with hyperglycemia Qualified Code(s): E10.65 - Type 1 diabetes mellitus with hyperglycemia (5) History of neurogenic bladder SNOMED Code(s): 751071323 Code(s): Z87.448 - PERSONAL HISTORY OF OTHER DISEASES OF URINARY SYSTEM Status: Chronic Current Visit: No (6) Hx of opioid abuse SNOMED Code(s): 455816375 Code(s): F11.11 - OPIOID ABUSE, IN REMISSION Status: Chronic Current Visit: No (7) Medical non-compliance SNOMED Code(s): 857041178 Code(s): Z91.19 - PATIENT'S NONCOMPLIANCE W OTH MEDICAL TREATMENT AND REGIMEN Status: Chronic Priority: Medium Current Visit: No (8) 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 SNOMED Code(s): 797288674 Code(s): E10.40 - TYPE 1 DIABETES MELLITUS WITH DIABETIC NEUROPATHY, UNSP Status: Chronic Priority: Medium Current Visit: No (9) Diabetic gastroparesis SNOMED Code(s): 306874458 Code(s): E11.43 - TYPE 2 DIABETES W DIABETIC AUTONOMIC (POLY)NEUROPATHY; K31.84 - GASTROPARESIS Status: Acute Priority: Medium Current Visit: No - Problem List Review Problem List Initiated/Reviewed/Updated: Yes - My Orders Last 24 Hours: My Active Orders 10/17/20 08:15 Insert Clements Catheter [Insert Urinary Catheter] [OM.PC] Q6H 10/17/20 12:45 Erythromycin Lactobionate [Erythrocin Lactobionate] 300 mg Sodium Chloride 0.9% [Normal Saline] 100 ml IV Q8H 10/17/20 14:15 Insert Clements Catheter [Insert Urinary Catheter] [OM.PC] Q6H 10/17/20 20:15 Insert Clements Catheter [Insert Urinary Catheter] [OM.PC] Q6H 10/17/20 21:00 EKG 12 Lead [EKG Documentation Completion] [RC] Q12H 10/18/20 02:15 Insert Clements Catheter [Insert Urinary Catheter] [OM.PC] Q6H 10/18/20 08:15 Insert Clements Catheter [Insert Urinary Catheter] [OM.PC] Q6H 10/18/20 14:15 Insert Clements Catheter [Insert Urinary Catheter] [OM.PC] Q6H 10/18/20 20:15 Insert Clements Catheter [Insert Urinary Catheter] [OM.PC] Q6H 10/19/20 05:11 BASIC METABOLIC PANEL,BMP [CHEM] AM CBC WITH AUTO DIFF [HEME] AM MAGNESIUM [CHEM] AM 10/20/20 05:11 BASIC METABOLIC PANEL,BMP [CHEM] AM CBC WITH AUTO DIFF [HEME] AM MAGNESIUM [CHEM] AM - Plan Plan:: 25 yo male with pmh of DM admitted for pyelonephritis and gastroparesis. 1. Pyelonephritis: -Continue Rocephin -Blood negative -Urine culture shows gram-negative rods continue to await DONALDO -Bladder scan has been throughout the day straight cath as needed for inability to urinate. -Discussed at length with patient that he needs to allow us to bladder scan and straight cath as retaining urine will worsen infection. Patient verbalized understanding 2. Gastroparesis: -Nausea mildly improved -Continue erythromycin 300 mg every 8 hours IV monitor improvement in abdominal pain and nausea vomiting -Continue IV fluids -EKGs daily to monitor QTC QTC at this time has been stable last QTC 392. -prn antiemetics Phenergan and Reglan as needed -Last admission patient was placed on erythromycin secondary to GI recommendations, but symptoms quickly improved with reintroduction of Suboxone and stopping as needed morphine. 3. DM type I: -Continue Lantus to 6 units twice daily -Continue D5 half NS as patient is not eating still -Continue NovoLog sliding scale for now hold off on premeal NovoLog until patient is eating -ADA diet as tolerated 4. History of opioid addiction -resume Suboxone -Did discuss possibility of sublingual Suboxone and that he should discuss this with his provider the next refill he has. VTE prophylaxis: SCDs due to recent upper GI bleed GI prophylaxis: On Protonix CODE STATUS: Full code Dispo: 1 to 2 days pending improvement
[2020-10-18] MEDS: Insulin Glargine,Human Rec. Analog 100 Units/ML 3 ML Pen SUBCUT SCH ×2 (09:10→21:07)
[2020-10-18] MEDS: Insulin Aspart 100 Units/ML 3 ML Pen SUBCUT SCH ×3 (09:20→17:57)
[2020-10-18] MEDS ORDERED: diphenhydrAMINE 50 MG/ML SDV IVPUSH ONE ×2 (11:26→22:27)
[2020-10-18] MEDS: cefTRIAXone 1 GM in Premix Bag 1 BAG IV SCH (18:56)
[2020-10-19] MEDS: Dextrose 5%-0.45% NaCl 1,000 ML IV SCH ×2 (01:18→20:23)
[2020-10-19] MEDS: Ondansetron 4 MG/2 ML SDV IVPUSH PRN ×3 (01:22→18:36)
[2020-10-19] MEDS: SODIUM CHLORIDE 0.9% IV SCH ×3 (05:32→21:40)
[2020-10-19] MEDS: ERYTHROMYCIN LACTOBIONATE IV SCH ×3 (05:32→21:40)
[2020-10-19 06:52] LABS: BLOOD UREA NITROGEN,BUN 14 mg/dL (7.0-18.0); CARBON DIOXIDE,CO2 27.8 mmol/L (21.0-32.0); CHLORIDE,CL 108 mmol/L (98-107); GLUCOSE RANDOM 192 mg/dL (74-106); POTASSIUM,K 2.8 mmol/L (3.5-5.1); SODIUM,NA 142 mmol/L (136-148)
[2020-10-19] MEDS: SUBOXONE SCH ×3 (07:23→21:44)
[2020-10-19] MEDS: Insulin Aspart 100 Units/ML 3 ML Pen SUBCUT SCH ×3 (07:39→18:16)
[2020-10-19] MEDS ORDERED: Sodium Chloride 0.9% with KCl 1,000 ML IV ONE (08:00)
[2020-10-19] MEDS ORDERED: Magnesium Sulfate/Water 2 GM in Premix Bag 1 BAG IV ONE (08:00)
--- NOTE | 2020-10-19 08:03 | PCM.PN ---
- General Info Date of Service: 10/19/20 Admission Dx/Problem (Free Text): Admission Diagnosis/Problem Admission Diagnosis/Problem Acute pyelonephritis Subjective Update: Continues to have nausea but reports it is feeling improved daily. Continues to have abdominal pain. Tolerating ice chips today as to where he was not tolerating anything yesterday. Encouraged to continue to try clear liquids around the time he is given Zofran. Denies any chest pain or shortness of breath. Continues to have urinary retention with straight cath this morning. Functional Status: Reports: Pain Controlled, Ambulating. Denies: Tolerating Diet, Urinating - Review of Systems General: Reports: No Symptoms. Denies: Fatigue, Malaise Pulmonary: Reports: No Symptoms. Denies: Shortness of Breath Cardiovascular: Reports: No Symptoms. Denies: Chest Pain Gastrointestinal: Reports: Abdominal Pain, Decreased Appetite, Nausea. Denies: Diarrhea, Vomiting Genitourinary: Reports: Retention. Denies: Dysuria, Frequency, Burning Musculoskeletal: Reports: No Symptoms Skin: Reports: No Symptoms Neurological: Reports: No Symptoms Psychiatric: Reports: No Symptoms - Patient Data Vitals - Most Recent: Last Vital Signs Temp 99.4 F 10/19/20 08:00 Pulse 84 10/19/20 08:00 Resp 16 10/19/20 08:00 BP 137/82 10/19/20 08:00 Pulse Ox 97 10/19/20 08:00 Weight - Most Recent: 52.617 kg I&O - Last 24 Hours: Intake & Output 10/18/20 10/19/20 10/19/20 22:59 06:59 14:59 Intake Total 2622 100 Output Total 4300 1200 Balance -1678 -1100 Lab Results Last 24 Hours: Laboratory Results - last 24 hr 10/18/20 10/18/20 10/18/20 Range/Units 09:01 11:52 17:08 WBC (4.0-11.0) K/uL RBC (4.50-5.90) M/uL Hgb (13.0-17.0) g/dL Hct (38.0-50.0) % MCV (80.0-98.0) fL MCH (27.0-32.0) pg MCHC (31.0-37.0) g/dL RDW Std Deviation (28.0-62.0) fl RDW Coeff of Erika (11.0-15.0) % Plt Count (150-400) K/uL MPV (7.40-12.00) fL Neut % (Auto) (48.0-80.0) % Lymph % (Auto) (16.0-40.0) % [place] % (Auto) (0.0-15.0) % Eos % (Auto) (0.0-7.0) % Baso % (Auto) (0.0-1.5) % Neut # (Auto) (1.4-5.7) K/uL Lymph # (Auto) (0.6-2.4) K/uL [place] # (Auto) (0.0-0.8) K/uL Eos # (Auto) (0.0-0.7) K/uL Baso # (Auto) (0.0-0.1) K/uL Nucleated RBC % /100WBC Nucleated RBCs # K/uL Sodium (136-148) mmol/L Potassium (3.5-5.1) mmol/L Chloride (98-107) mmol/L Carbon Dioxide (21.0-32.0) mmol/L BUN (7.0-18.0) mg/dL Creatinine (0.8-1.3) mg/dL Est Cr Clr Drug Dosing mL/min Estimated GFR (MDRD) ml/min Glucose (74-106) mg/dL POC Glucose 309 H 293 H 258 H (70-99) mg/dL Calcium (8.5-10.1) mg/dL Magnesium (1.8-2.4) mg/dL 10/18/20 10/19/20 10/19/20 Range/Units 21:04 05:21 05:21 WBC 4.67 (4.0-11.0) K/uL RBC 3.99 L (4.50-5.90) M/uL Hgb 10.3 L (13.0-17.0) g/dL Hct 31.3 L (38.0-50.0) % MCV 78.4 L (80.0-98.0) fL MCH 25.8 L (27.0-32.0) pg MCHC 32.9 (31.0-37.0) g/dL RDW Std Deviation 39.4 (28.0-62.0) fl RDW Coeff of Erika 14 (11.0-15.0) % Plt Count 217 (150-400) K/uL MPV 9.80 (7.40-12.00) fL Neut % (Auto) 35.3 L (48.0-80.0) % Lymph % (Auto) 57.0 H (16.0-40.0) % [place] % (Auto) 4.9 (0.0-15.0) % Eos % (Auto) 2.4 (0.0-7.0) % Baso % (Auto) 0.4 (0.0-1.5) % Neut # (Auto) 1.7 (1.4-5.7) K/uL Lymph # (Auto) 2.7 H (0.6-2.4) K/uL [place] # (Auto) 0.2 (0.0-0.8) K/uL Eos # (Auto) 0.1 (0.0-0.7) K/uL Baso # (Auto) 0.0 (0.0-0.1) K/uL Nucleated RBC % 0.0 /100WBC Nucleated RBCs # 0 K/uL Sodium 142 (136-148) mmol/L Potassium 2.8 L (3.5-5.1) mmol/L Chloride 108 H (98-107) mmol/L Carbon Dioxide 27.8 (21.0-32.0) mmol/L BUN 14 (7.0-18.0) mg/dL Creatinine 0.9 (0.8-1.3) mg/dL Est Cr Clr Drug Dosing 95.00 mL/min Estimated GFR (MDRD) > 60.0 ml/min Glucose 192 H (74-106) mg/dL POC Glucose 266 H (70-99) mg/dL Calcium 8.0 L (8.5-10.1) mg/dL Magnesium 1.7 L (1.8-2.4) mg/dL 10/19/20 Range/Units 06:44 WBC (4.0-11.0) K/uL RBC (4.50-5.90) M/uL Hgb (13.0-17.0) g/dL Hct (38.0-50.0) % MCV (80.0-98.0) fL MCH (27.0-32.0) pg MCHC (31.0-37.0) g/dL RDW Std Deviation (28.0-62.0) fl RDW Coeff of Erika (11.0-15.0) % Plt Count (150-400) K/uL MPV (7.40-12.00) fL Neut % (Auto) (48.0-80.0) % Lymph % (Auto) (16.0-40.0) % [place] % (Auto) (0.0-15.0) % Eos % (Auto) (0.0-7.0) % Baso % (Auto) (0.0-1.5) % Neut # (Auto) (1.4-5.7) K/uL Lymph # (Auto) (0.6-2.4) K/uL [place] # (Auto) (0.0-0.8) K/uL Eos # (Auto) (0.0-0.7) K/uL Baso # (Auto) (0.0-0.1) K/uL Nucleated RBC % /100WBC Nucleated RBCs # K/uL Sodium (136-148) mmol/L Potassium (3.5-5.1) mmol/L Chloride (98-107) mmol/L Carbon Dioxide (21.0-32.0) mmol/L BUN (7.0-18.0) mg/dL Creatinine (0.8-1.3) mg/dL Est Cr Clr Drug Dosing mL/min Estimated GFR (MDRD) ml/min Glucose (74-106) mg/dL POC Glucose 158 H (70-99) mg/dL Calcium (8.5-10.1) mg/dL Magnesium (1.8-2.4) mg/dL [place] Results Last 24 Hours: Microbiology 10/15/20 17:09 Aerobic Blood Culture - Preliminary Blood - Venous - Lab Draw NO GROWTH AFTER 3 DAYS Anaerobic Blood Culture - Preliminary NO GROWTH AFTER 3 DAYS 10/15/20 16:49 Aerobic Blood Culture - Preliminary Blood - Venous NO GROWTH AFTER 3 DAYS Anaerobic Blood Culture - Preliminary NO GROWTH AFTER 3 DAYS 10/15/20 17:11 Urine Culture - Final Urine Escherichia Coli Med Orders - Current: Current Medications Dextrose/Water (50% Dextrose In Water 50 Ml Syringe) 50 ml IVPUSH ASDIRECTED PRN PRN Reason: Hypoglycemia Diphenhydramine HCl (Diphenhydramine 25 Mg Cap) 25 mg PO Q6H PRN PRN Reason: Itching Glucagon (Glucagon,Human Recombinant 1 Mg Vial) 1 mg IM ASDIRECTED PRN PRN Reason: Hypoglycemia Dextrose/Sodium Chloride (Dextrose 5%-1/2 Ns) 1,000 mls @ 125 mls/hr IV ASDIRECTED [facility] Last Admin: 10/19/20 01:18 Dose: 125 mls/hr Documented by: Ceftriaxone Sodium/Dextrose 1 (gm/ Premix) 50 mls @ 100 mls/hr IV Q24H [facility] Last Admin: 10/18/20 18:56 Dose: 100 mls/hr Documented by: Erythromycin Lactobionate 300 (mg/ Sodium Chloride) 100 mls @ 100 mls/hr IV Q8H [facility] Last Admin: 10/19/20 05:32 Dose: 100 mls/hr Documented by: Potassium Chloride/Sodium Chloride (Normal Saline With 40 Meq Kcl) 1,000 mls @ 150 mls/hr IV ONETIME ONE Stop: 10/19/20 14:39 Magnesium Sulfate 2 gm/ Premix 50 mls @ 25 mls/hr IV ONETIME ONE Stop: 10/19/20 09:59 Insulin Aspart (Insulin Aspart 100 Units/Ml 3 Ml Pen) 0 unit SUBCUT TIDAC [facility]; Protocol Last Admin: 10/19/20 07:39 Dose: 1 units Documented by: Insulin Glargine (Insulin Glargine,Human Rec. Analog 100 Units/Ml 3 Ml Pen) 6 units SUBCUT BID [facility] Last Admin: 10/18/20 21:07 Dose: 6 units Documented by: Ondansetron HCl (Ondansetron 4 Mg/2 Ml Sdv) 4 mg IVPUSH Q4H PRN PRN Reason: Nausea Last Admin: 10/19/20 01:22 Dose: 4 mg Documented by: Patient's Own MedicationSuboxone 8/2 Mg Tab 0.5 - 1 each .XX TID [facility] Last Admin: 10/19/20 07:23 Dose: Not Given Documented by: Discontinued Medications Dextrose/Water (50% Dextrose In Water 50 Ml Syringe) 25 ml IVPUSH ONETIME ONE Stop: 10/16/20 16:43 Last Admin: 10/16/20 17:12 Dose: 25 ml Documented by: Diphenhydramine HCl (Diphenhydramine 50 Mg/Ml Sdv) 25 mg IVPUSH ONETIME ONE Stop: 10/15/20 16:25 Last Admin: 10/15/20 16:32 Dose: 25 mg Documented by: Diphenhydramine HCl (Diphenhydramine 50 Mg/Ml Sdv) 25 mg IVPUSH ONETIME ONE Stop: 10/15/20 19:36 Last Admin: 10/15/20 19:43 Dose: 25 mg Documented by: Diphenhydramine HCl (Diphenhydramine 50 Mg/Ml Sdv) 25 mg IVPUSH ONETIME ONE Stop: 10/18/20 11:27 Last Admin: 10/18/20 12:15 Dose: 25 mg Documented by: Diphenhydramine HCl (Diphenhydramine 50 Mg/Ml Sdv) 12.5 mg IVPUSH ONETIME ONE Stop: 10/18/20 22:28 Last Admin: 10/18/20 23:10 Dose: 12.5 mg Documented by: Sodium Chloride (Normal Saline) 1,000 mls @ 999 mls/hr IV BOLUS ONE Stop: 10/15/20 16:57 Last Admin: 10/15/20 16:19 Dose: 999 mls/hr Documented by: Pantoprazole Sodium 80 mg/ (Sodium Chloride) 20 mls @ 420 mls/hr IVPUSH ONETIME ONE Stop: 10/15/20 16:04 Last Admin: 10/15/20 16:19 Dose: 420 mls/hr Documented by: Ceftriaxone Sodium/Dextrose 1 (gm/ Premix) 50 mls @ 100 mls/hr IV ONETIME ONE Stop: 10/15/20 18:36 Last Admin: 10/16/20 18:20 Dose: 100 mls/hr Documented by: Sodium Chloride (Normal Saline) 1,000 mls @ 125 mls/hr IV ASDIRECTED [facility] Last Admin: 10/16/20 08:01 Dose: 125 mls/hr Documented by: Ceftriaxone Sodium/Dextrose 1 (gm/ Premix) 50 mls @ 100 mls/hr IV Q24H [facility] Meropenem/Sodium Chloride (Meropenem In Ns 1 Gm/50 Ml) 50 mls @ 100 mls/hr IV Q8H [facility] Stop: 10/16/20 00:06 Last Admin: 10/16/20 01:32 Dose: Not Given Documented by: Ceftriaxone Sodium 1 gm/ (Sodium Chloride) 50 mls @ 100 mls/hr IV Q24H [facility] Last Admin: 10/16/20 19:01 Dose: Not Given Documented by: Ceftriaxone Sodium/Dextrose (Rocephin In Dextrose,Iso-Osm 1 Gm/50 Ml) Confirm Administered Dose 50 mls @ as directed .ROUTE .STK-MED ONE Stop: 10/16/20 18:12 Last Admin: 10/16/20 18:10 Dose: 100 mls/hr Documented by: Erythromycin Lactobionate 300 (mg/ Sodium Chloride) 100 mls @ 100 mls/hr IV Q8H [facility] Last Admin: 10/17/20 19:39 Dose: Not Given Documented by: Insulin Aspart (Insulin Aspart 100 Units/Ml 3 Ml Pen) 5 unit SUBCUT TIDAC [facility] Last Admin: 10/16/20 11:32 Dose: Not Given Documented by: Insulin Glargine (Insulin Glargine,Human Rec. Analog 100 Units/Ml 3 Ml Pen) 15 units SUBCUT BID [facility] Last Admin: 10/16/20 09:33 Dose: 15 units Documented by: Insulin Human Regular (Insulin Regular, Human 100 Units/Ml 10 Ml Vial) 4 unit SUBCUT ASDIRECTED ONE; Protocol Stop: 10/15/20 17:02 Last Admin: 10/15/20 17:57 Dose: 4 units Documented by: Iopamidol (Iopamidol 755 Mg/Ml 500 Ml Multipack Bottle) 65 ml IVPUSH ONETIME STA Stop: 10/15/20 18:44 Last Admin: 10/15/20 18:44 Dose: 65 ml Documented by: Metoclopramide HCl (Metoclopramide 10 Mg/2 Ml Sdv) 10 mg IVPUSH ONETIME ONE Stop: 10/15/20 19:35 Last Admin: 10/15/20 19:43 Dose: 10 mg Documented by: Metoclopramide HCl (Metoclopramide 10 Mg/2 Ml Sdv) 10 mg IVPUSH Q6H PRN PRN Reason: Nausea Last Admin: 10/17/20 06:14 Dose: 10 mg Documented by: Morphine Sulfate (Morphine 4 Mg/Ml Syringe) 4 mg IVPUSH ONETIME ONE Stop: 10/15/20 16:04 Last Admin: 10/15/20 16:24 Dose: 4 mg Documented by: Ondansetron HCl (Ondansetron 4 Mg/2 Ml Sdv) 4 mg IVPUSH ONETIME ONE Stop: 10/15/20 15:59 Last Admin: 10/15/20 16:19 Dose: 4 mg Documented by: Patient's Own MedicationSuboxone 8/2 Mg Tab 3 each .XX DAILY [facility] Last Admin: 10/15/20 22:57 Dose: 0.5 each Documented by: Patient Own Medication (Patient's Own Medication 1 Each) 3 each .XX TID [facility] Promethazine HCl (Promethazine 25 Mg/Ml Sdv) 25 mg IM Q6H PRN PRN Reason: Nausea - Exam Urinary Catheter Total Time: 0Days 3Hours General: Alert, Oriented, Cooperative, No Acute Distress Lungs: Clear to Auscultation, Normal Respiratory Effort Cardiovascular: Regular Rate, Regular Rhythm GI/Abdominal Exam: Normal Bowel Sounds, Soft, Tender (Diffusely to the slightest of touch on palpation) Extremities: Normal Inspection, Normal Range of Motion, Non-Tender, No Pedal Edema Neurological: No New Focal Deficit Psy/Mental Status: Alert, Normal Affect, Normal Mood - Patient Data Lab Results Last 24 hrs: Laboratory Results - last 24 hr 10/18/20 10/18/20 10/18/20 Range/Units 09:01 11:52 17:08 WBC (4.0-11.0) K/uL RBC (4.50-5.90) M/uL Hgb (13.0-17.0) g/dL Hct (38.0-50.0) % MCV (80.0-98.0) fL MCH (27.0-32.0) pg MCHC (31.0-37.0) g/dL RDW Std Deviation (28.0-62.0) fl RDW Coeff of Erika (11.0-15.0) % Plt Count (150-400) K/uL MPV (7.40-12.00) fL Neut % (Auto) (48.0-80.0) % Lymph % (Auto) (16.0-40.0) % [place] % (Auto) (0.0-15.0) % Eos % (Auto) (0.0-7.0) % Baso % (Auto) (0.0-1.5) % Neut # (Auto) (1.4-5.7) K/uL Lymph # (Auto) (0.6-2.4) K/uL [place] # (Auto) (0.0-0.8) K/uL Eos # (Auto) (0.0-0.7) K/uL Baso # (Auto) (0.0-0.1) K/uL Nucleated RBC % /100WBC Nucleated RBCs # K/uL Sodium (136-148) mmol/L Potassium (3.5-5.1) mmol/L Chloride (98-107) mmol/L Carbon Dioxide (21.0-32.0) mmol/L BUN (7.0-18.0) mg/dL Creatinine (0.8-1.3) mg/dL Est Cr Clr Drug Dosing mL/min Estimated GFR (MDRD) ml/min Glucose (74-106) mg/dL POC Glucose 309 H 293 H 258 H (70-99) mg/dL Calcium (8.5-10.1) mg/dL Magnesium (1.8-2.4) mg/dL 10/18/20 10/19/20 10/19/20 Range/Units 21:04 05:21 05:21 WBC 4.67 (4.0-11.0) K/uL RBC 3.99 L (4.50-5.90) M/uL Hgb 10.3 L (13.0-17.0) g/dL Hct 31.3 L (38.0-50.0) % MCV 78.4 L (80.0-98.0) fL MCH 25.8 L (27.0-32.0) pg MCHC 32.9 (31.0-37.0) g/dL RDW Std Deviation 39.4 (28.0-62.0) fl RDW Coeff of Erika 14 (11.0-15.0) % Plt Count 217 (150-400) K/uL MPV 9.80 (7.40-12.00) fL Neut % (Auto) 35.3 L (48.0-80.0) % Lymph % (Auto) 57.0 H (16.0-40.0) % [place] % (Auto) 4.9 (0.0-15.0) % Eos % (Auto) 2.4 (0.0-7.0) % Baso % (Auto) 0.4 (0.0-1.5) % Neut # (Auto) 1.7 (1.4-5.7) K/uL Lymph # (Auto) 2.7 H (0.6-2.4) K/uL [place] # (Auto) 0.2 (0.0-0.8) K/uL Eos # (Auto) 0.1 (0.0-0.7) K/uL Baso # (Auto) 0.0 (0.0-0.1) K/uL Nucleated RBC % 0.0 /100WBC Nucleated RBCs # 0 K/uL Sodium 142 (136-148) mmol/L Potassium 2.8 L (3.5-5.1) mmol/L Chloride 108 H (98-107) mmol/L Carbon Dioxide 27.8 (21.0-32.0) mmol/L BUN 14 (7.0-18.0) mg/dL Creatinine 0.9 (0.8-1.3) mg/dL Est Cr Clr Drug Dosing 95.00 mL/min Estimated GFR (MDRD) > 60.0 ml/min Glucose 192 H (74-106) mg/dL POC Glucose 266 H (70-99) mg/dL Calcium 8.0 L (8.5-10.1) mg/dL Magnesium 1.7 L (1.8-2.4) mg/dL 10/19/20 Range/Units 06:44 WBC (4.0-11.0) K/uL RBC (4.50-5.90) M/uL Hgb (13.0-17.0) g/dL Hct (38.0-50.0) % MCV (80.0-98.0) fL MCH (27.0-32.0) pg MCHC (31.0-37.0) g/dL RDW Std Deviation (28.0-62.0) fl RDW Coeff of Erika (11.0-15.0) % Plt Count (150-400) K/uL MPV (7.40-12.00) fL Neut % (Auto) (48.0-80.0) % Lymph % (Auto) (16.0-40.0) % [place] % (Auto) (0.0-15.0) % Eos % (Auto) (0.0-7.0) % Baso % (Auto) (0.0-1.5) % Neut # (Auto) (1.4-5.7) K/uL Lymph # (Auto) (0.6-2.4) K/uL [place] # (Auto) (0.0-0.8) K/uL Eos # (Auto) (0.0-0.7) K/uL Baso # (Auto) (0.0-0.1) K/uL Nucleated RBC % /100WBC Nucleated RBCs # K/uL Sodium (136-148) mmol/L Potassium (3.5-5.1) mmol/L Chloride (98-107) mmol/L Carbon Dioxide (21.0-32.0) mmol/L BUN (7.0-18.0) mg/dL Creatinine (0.8-1.3) mg/dL Est Cr Clr Drug Dosing mL/min Estimated GFR (MDRD) ml/min Glucose (74-106) mg/dL POC Glucose 158 H (70-99) mg/dL Calcium (8.5-10.1) mg/dL Magnesium (1.8-2.4) mg/dL Result Diagrams: 10/19/20 05:21 10/19/20 05:21 [place] Results Last 24 hrs: Microbiology 10/15/20 17:09 Aerobic Blood Culture - Preliminary Blood - Venous - Lab Draw NO GROWTH AFTER 3 DAYS Anaerobic Blood Culture - Preliminary NO GROWTH AFTER 3 DAYS 10/15/20 16:49 Aerobic Blood Culture - Preliminary Blood - Venous NO GROWTH AFTER 3 DAYS Anaerobic Blood Culture - Preliminary NO GROWTH AFTER 3 DAYS 10/15/20 17:11 Urine Culture - Final Urine Escherichia Coli Sepsis Event Note - Evaluation Sepsis Screening Result: No Definite Risk - Focused Exam Vital Signs: Vital Signs Temp Pulse Resp BP Pulse Ox Pulse Ox 10/19/20 08:00 99.4 F 84 16 137/82 97 10/19/20 05:38 98.1 F 86 16 159/106 H 98 10/19/20 00:00 97.7 F 87 16 134/85 97 10/18/20 23:00 97 - Problem List & Annotations (1) Acute pyelonephritis SNOMED Code(s): 18310793 Code(s): N10 - ACUTE PYELONEPHRITIS Status: Acute Current Visit: Yes (2) Abdominal pain SNOMED Code(s): 92929296 Code(s): R10.9 - UNSPECIFIED ABDOMINAL PAIN Status: Acute Current Visit: No (3) Dehydration SNOMED Code(s): 22400274 Code(s): E86.0 - DEHYDRATION Status: Acute Current Visit: No (4) Diabetes type 1, uncontrolled SNOMED Code(s): 08599768, 629193493 Code(s): E10.65 - TYPE 1 DIABETES MELLITUS WITH HYPERGLYCEMIA Status: Chronic Priority: Medium Current Visit: No Qualifiers: Glycemic state: with hyperglycemia Qualified Code(s): E10.65 - Type 1 diabetes mellitus with hyperglycemia (5) History of neurogenic bladder SNOMED Code(s): 251183140 Code(s): Z87.448 - PERSONAL HISTORY OF OTHER DISEASES OF URINARY SYSTEM Status: Chronic Current Visit: No (6) Hx of opioid abuse SNOMED Code(s): 542399345 Code(s): F11.11 - OPIOID ABUSE, IN REMISSION Status: Chronic Current Visit: No (7) Medical non-compliance SNOMED Code(s): 605079082 Code(s): Z91.19 - PATIENT'S NONCOMPLIANCE W OTH MEDICAL TREATMENT AND REGIMEN Status: Chronic Priority: Medium Current Visit: No (8) 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 SNOMED Code(s): 844739530 Code(s): E10.40 - TYPE 1 DIABETES MELLITUS WITH DIABETIC NEUROPATHY, UNSP Status: Chronic Priority: Medium Current Visit: No (9) Diabetic gastroparesis SNOMED Code(s): 196128275 Code(s): E11.43 - TYPE 2 DIABETES W DIABETIC AUTONOMIC (POLY)NEUROPATHY; K31.84 - GASTROPARESIS Status: Acute Priority: Medium Current Visit: No - Problem List Review Problem List Initiated/Reviewed/Updated: Yes - My Orders Last 24 Hours: My Active Orders 10/18/20 08:15 Insert Clements Catheter [Insert Urinary Catheter] [OM.PC] Q6H 10/18/20 14:15 Insert Clements Catheter [Insert Urinary Catheter] [OM.PC] Q6H 10/18/20 20:15 Insert Clements Catheter [Insert Urinary Catheter] [OM.PC] Q6H 10/19/20 08:00 Magnesium Sulfate/Water [Magnesium Sulfate in Water 2 GM/50 ML] 2 gm Premix Bag 1 bag IV ONETIME Sodium Chloride 0.9% with KCl [Normal Saline with 40 mEq KCl] 1,000 ml IV ONETIME 10/20/20 05:11 BASIC METABOLIC PANEL,BMP [CHEM] AM CBC WITH AUTO DIFF [HEME] AM MAGNESIUM [CHEM] AM - Plan Plan:: 25 yo male with pmh of DM admitted for pyelonephritis and gastroparesis. 1. E. coli pyelonephritis: -Continue Rocephin, continue Rocephin as E. coli is resistant to fluoroquinolones and Bactrim -Blood negative -Repeat UA today to ensure clearing due to repeated retention and straight caths -Bladder scan has been throughout the day straight cath as needed for inability to urinate. -Discussed at length with patient that he needs to allow us to bladder scan and straight cath as retaining urine will worsen infection. Patient verbalized understanding -Previous admission patient was discharged home with straight cath prescriptions and has not picked them up reports he urinates fine at home. 2. Gastroparesis: -Nausea mildly improved -Continue erythromycin 300 mg every 8 hours IV monitor improvement in abdominal pain and nausea vomiting -Continue IV fluids -EKGs daily to monitor QTC, QTC at this time has been stable last QTC 419 -prn antiemetics Zofran -Last admission patient was placed on erythromycin secondary to GI recommendations, but symptoms quickly improved with reintroduction of Suboxone and stopping as needed morphine. 3. DM type I: -Continue Lantus to 6 units twice daily -Continue D5 half NS as patient is not eating still -Continue NovoLog sliding scale for now hold off on premeal NovoLog until patient is eating -ADA diet as tolerated 4. History of opioid addiction -Continue Suboxone -Did discuss possibility of sublingual film Suboxone and that he should discuss this with his provider the next refill he has. VTE prophylaxis: SCDs due to recent upper GI bleed GI prophylaxis: On Protonix CODE STATUS: Full code Dispo: 1 to 2 days pending improvement
[2020-10-19] MEDS: Insulin Glargine,Human Rec. Analog 100 Units/ML 3 ML Pen SUBCUT SCH ×2 (08:51→21:42)
--- NOTE | 2020-10-19 17:37 | PCM.EKG ---
#1 Interpretation EKG Date: 10/17/20 Time: 11:45 Rhythm: NSR Rate (Beats/Min): 96 P-Wave: Present QRS: Normal ST-T: Normal QT: Normal #2 Interpretation EKG Date: 10/18/20 Time: 21:40 Rhythm: NSR Rate (Beats/Min): 100 P-Wave: Present ST-T: Normal QT: Normal #3 Interpretation EKG Date: 10/19/20 Time: 11:47 Rhythm: NSR Rate (Beats/Min): 89 P-Wave: Present QRS: Normal ST-T: Normal QT: Normal
[2020-10-19] MEDS: cefTRIAXone 1 GM in Premix Bag 1 BAG IV SCH (18:36)
[2020-10-20] MEDS: Ondansetron 4 MG/2 ML SDV IVPUSH PRN ×3 (01:23→14:24)
[2020-10-20] MEDS: SODIUM CHLORIDE 0.9% IV SCH ×3 (04:34→21:05)
[2020-10-20] MEDS: ERYTHROMYCIN LACTOBIONATE IV SCH ×3 (04:34→21:05)
[2020-10-20] MEDS: Dextrose 5%-0.45% NaCl 1,000 ML IV SCH (04:40)
[2020-10-20] MEDS: SUBOXONE SCH ×3 (06:07→21:19)
[2020-10-20 07:07] LABS: BLOOD UREA NITROGEN,BUN 9 mg/dL (7.0-18.0); CARBON DIOXIDE,CO2 27.3 mmol/L (21.0-32.0); CHLORIDE,CL 106 mmol/L (98-107); GLUCOSE RANDOM 358 mg/dL (74-106); POTASSIUM,K 3.6 mmol/L (3.5-5.1); SODIUM,NA 138 mmol/L (136-148)
[2020-10-20] MEDS: Insulin Glargine,Human Rec. Analog 100 Units/ML 3 ML Pen SUBCUT SCH ×2 (08:29→21:05)
[2020-10-20] MEDS: Insulin Aspart 100 Units/ML 3 ML Pen SUBCUT SCH ×6 (08:30→17:17)
[2020-10-20] MEDS ORDERED: Bisacodyl 10 MG Supp RECTAL ONE (09:00)
--- NOTE | 2020-10-20 09:20 | PCM.PN ---
- General Info Date of Service: 10/20/20 Admission Dx/Problem (Free Text): Admission Diagnosis/Problem Admission Diagnosis/Problem Acute pyelonephritis Subjective Update: Feeling better today. Able to eat toast popsicles and broth this morning without significant nausea or vomiting. Continues to have intermittent abdominal pain. Denies any chest pain shortness of breath. He is voiding on his own. Does not quite feel ready to go home as he just started eating likely in a.m. Functional Status: Reports: Pain Controlled, Tolerating Diet, Ambulating, Urinating - Review of Systems General: Reports: No Symptoms. Denies: Weakness, Fatigue, Malaise HEENT: Reports: No Symptoms. Denies: Headaches, Visual Changes Pulmonary: Reports: No Symptoms. Denies: Shortness of Breath Cardiovascular: Reports: No Symptoms. Denies: Chest Pain Gastrointestinal: Reports: Abdominal Pain (Scant/intermittent). Denies: Nausea, Vomiting Genitourinary: Reports: No Symptoms. Denies: Dysuria, Frequency Musculoskeletal: Reports: No Symptoms Skin: Reports: No Symptoms Neurological: Reports: No Symptoms Psychiatric: Reports: No Symptoms - Patient Data Vitals - Most Recent: Last Vital Signs Temp 98.1 F 10/20/20 08:00 Pulse 82 10/20/20 08:00 Resp 14 10/20/20 08:00 BP 120/93 H 10/20/20 08:00 Pulse Ox 97 10/20/20 08:00 Weight - Most Recent: 52.617 kg I&O - Last 24 Hours: Intake & Output 10/19/20 10/20/20 10/20/20 22:59 06:59 14:59 Intake Total 700 2590 550 Output Total 1100 1200 Balance -400 1390 550 Lab Results Last 24 Hours: Laboratory Results - last 24 hr 10/19/20 10/19/20 10/19/20 Range/Units 11:16 12:35 16:22 WBC (4.0-11.0) K/uL RBC (4.50-5.90) M/uL Hgb (13.0-17.0) g/dL Hct (38.0-50.0) % MCV (80.0-98.0) fL MCH (27.0-32.0) pg MCHC (31.0-37.0) g/dL RDW Std Deviation (28.0-62.0) fl RDW Coeff of Erika (11.0-15.0) % Plt Count (150-400) K/uL MPV (7.40-12.00) fL Neut % (Auto) (48.0-80.0) % Lymph % (Auto) (16.0-40.0) % [place] % (Auto) (0.0-15.0) % Eos % (Auto) (0.0-7.0) % Baso % (Auto) (0.0-1.5) % Neut # (Auto) (1.4-5.7) K/uL Lymph # (Auto) (0.6-2.4) K/uL [place] # (Auto) (0.0-0.8) K/uL Eos # (Auto) (0.0-0.7) K/uL Baso # (Auto) (0.0-0.1) K/uL Nucleated RBC % /100WBC Nucleated RBCs # K/uL Sodium (136-148) mmol/L Potassium 3.3 L (3.5-5.1) mmol/L Chloride (98-107) mmol/L Carbon Dioxide (21.0-32.0) mmol/L BUN (7.0-18.0) mg/dL Creatinine (0.8-1.3) mg/dL Est Cr Clr Drug Dosing mL/min Estimated GFR (MDRD) ml/min Glucose (74-106) mg/dL POC Glucose 122 H (70-99) mg/dL Calcium (8.5-10.1) mg/dL Magnesium (1.8-2.4) mg/dL Urine Color YELLOW Urine Appearance CLEAR Urine pH 6.5 (5.0-8.0) Ur Specific [place] 1.025 (1.001-1.035) Urine Protein 100 H (NEGATIVE) mg/dL Urine Glucose (UA) 500 H (NEGATIVE) mg/dL Urine Ketones 15 H (NEGATIVE) mg/dL Urine Occult Blood LARGE H (NEGATIVE) Urine Nitrite NEGATIVE (NEGATIVE) Urine Bilirubin NEGATIVE (NEGATIVE) Urine Urobilinogen 0.2 (<2.0) EU/dL Ur Leukocyte Esterase NEGATIVE (NEGATIVE) Urine RBC 10-15 (0-2/HPF) Urine WBC 0-2 (0-5/HPF) Ur Epithelial Cells RARE (NONE-FEW) Urine Bacteria RARE (NEGATIVE) 10/19/20 10/19/20 10/20/20 Range/Units 18:15 21:39 05:23 WBC 5.11 (4.0-11.0) K/uL RBC 4.03 L (4.50-5.90) M/uL Hgb 10.5 L (13.0-17.0) g/dL Hct 31.2 L (38.0-50.0) % MCV 77.4 L (80.0-98.0) fL MCH 26.1 L (27.0-32.0) pg MCHC 33.7 (31.0-37.0) g/dL RDW Std Deviation 39.6 (28.0-62.0) fl RDW Coeff of Erika 14 (11.0-15.0) % Plt Count 217 (150-400) K/uL MPV 10.30 (7.40-12.00) fL Neut % (Auto) 44.0 L (48.0-80.0) % Lymph % (Auto) 47.2 H (16.0-40.0) % [place] % (Auto) 4.3 (0.0-15.0) % Eos % (Auto) 3.9 (0.0-7.0) % Baso % (Auto) 0.6 (0.0-1.5) % Neut # (Auto) 2.3 (1.4-5.7) K/uL Lymph # (Auto) 2.4 (0.6-2.4) K/uL [place] # (Auto) 0.2 (0.0-0.8) K/uL Eos # (Auto) 0.2 (0.0-0.7) K/uL Baso # (Auto) 0.0 (0.0-0.1) K/uL Nucleated RBC % 0.0 /100WBC Nucleated RBCs # 0 K/uL Sodium (136-148) mmol/L Potassium (3.5-5.1) mmol/L Chloride (98-107) mmol/L Carbon Dioxide (21.0-32.0) mmol/L BUN (7.0-18.0) mg/dL Creatinine (0.8-1.3) mg/dL Est Cr Clr Drug Dosing mL/min Estimated GFR (MDRD) ml/min Glucose (74-106) mg/dL POC Glucose 94 110 H (70-99) mg/dL Calcium (8.5-10.1) mg/dL Magnesium (1.8-2.4) mg/dL Urine Color Urine Appearance Urine pH (5.0-8.0) Ur Specific [place] (1.001-1.035) Urine Protein (NEGATIVE) mg/dL Urine Glucose (UA) (NEGATIVE) mg/dL Urine Ketones (NEGATIVE) mg/dL Urine Occult Blood (NEGATIVE) Urine Nitrite (NEGATIVE) Urine Bilirubin (NEGATIVE) Urine Urobilinogen (<2.0) EU/dL Ur Leukocyte Esterase (NEGATIVE) Urine RBC (0-2/HPF) Urine WBC (0-5/HPF) Ur Epithelial Cells (NONE-FEW) Urine Bacteria (NEGATIVE) 10/20/20 10/20/20 Range/Units 05:23 07:06 WBC (4.0-11.0) K/uL RBC (4.50-5.90) M/uL Hgb (13.0-17.0) g/dL Hct (38.0-50.0) % MCV (80.0-98.0) fL MCH (27.0-32.0) pg MCHC (31.0-37.0) g/dL RDW Std Deviation (28.0-62.0) fl RDW Coeff of Erika (11.0-15.0) % Plt Count (150-400) K/uL MPV (7.40-12.00) fL Neut % (Auto) (48.0-80.0) % Lymph % (Auto) (16.0-40.0) % [place] % (Auto) (0.0-15.0) % Eos % (Auto) (0.0-7.0) % Baso % (Auto) (0.0-1.5) % Neut # (Auto) (1.4-5.7) K/uL Lymph # (Auto) (0.6-2.4) K/uL [place] # (Auto) (0.0-0.8) K/uL Eos # (Auto) (0.0-0.7) K/uL Baso # (Auto) (0.0-0.1) K/uL Nucleated RBC % /100WBC Nucleated RBCs # K/uL Sodium 138 (136-148) mmol/L Potassium 3.6 (3.5-5.1) mmol/L Chloride 106 (98-107) mmol/L Carbon Dioxide 27.3 (21.0-32.0) mmol/L BUN 9 (7.0-18.0) mg/dL Creatinine 0.9 (0.8-1.3) mg/dL Est Cr Clr Drug Dosing 95.00 mL/min Estimated GFR (MDRD) > 60.0 ml/min Glucose 358 H (74-106) mg/dL POC Glucose 375 H (70-99) mg/dL Calcium 8.0 L (8.5-10.1) mg/dL Magnesium 1.9 (1.8-2.4) mg/dL Urine Color Urine Appearance Urine pH (5.0-8.0) Ur Specific [place] (1.001-1.035) Urine Protein (NEGATIVE) mg/dL Urine Glucose (UA) (NEGATIVE) mg/dL Urine Ketones (NEGATIVE) mg/dL Urine Occult Blood (NEGATIVE) Urine Nitrite (NEGATIVE) Urine Bilirubin (NEGATIVE) Urine Urobilinogen (<2.0) EU/dL Ur Leukocyte Esterase (NEGATIVE) Urine RBC (0-2/HPF) Urine WBC (0-5/HPF) Ur Epithelial Cells (NONE-FEW) Urine Bacteria (NEGATIVE) [place] Results Last 24 Hours: Microbiology 10/15/20 17:09 Aerobic Blood Culture - Preliminary Blood - Venous - Lab Draw NO GROWTH AFTER 4 DAYS Anaerobic Blood Culture - Preliminary NO GROWTH AFTER 4 DAYS 10/15/20 16:49 Aerobic Blood Culture - Preliminary Blood - Venous NO GROWTH AFTER 4 DAYS Anaerobic Blood Culture - Preliminary NO GROWTH AFTER 4 DAYS Med Orders - Current: Current Medications Dextrose/Water (50% Dextrose In Water 50 Ml Syringe) 50 ml IVPUSH ASDIRECTED PRN PRN Reason: Hypoglycemia Diphenhydramine HCl (Diphenhydramine 25 Mg Cap) 25 mg PO Q6H PRN PRN Reason: Itching Last Admin: 10/19/20 18:44 Dose: 25 mg Documented by: Glucagon (Glucagon,Human Recombinant 1 Mg Vial) 1 mg IM ASDIRECTED PRN PRN Reason: Hypoglycemia Ceftriaxone Sodium/Dextrose 1 (gm/ Premix) 50 mls @ 100 mls/hr IV Q24H [facility] Last Admin: 10/19/20 18:36 Dose: 100 mls/hr Documented by: Erythromycin Lactobionate 300 (mg/ Sodium Chloride) 100 mls @ 100 mls/hr IV Q8H [facility] Last Admin: 10/20/20 04:34 Dose: 100 mls/hr Documented by: Insulin Aspart (Insulin Aspart 100 Units/Ml 3 Ml Pen) 0 unit SUBCUT TIDAC [facility]; Protocol Last Admin: 10/20/20 08:30 Dose: 1 units Documented by: Insulin Aspart (Insulin Aspart 100 Units/Ml 3 Ml Pen) 5 unit SUBCUT TIDAC [facility] Last Admin: 10/20/20 08:30 Dose: 5 units Documented by: Insulin Glargine (Insulin Glargine,Human Rec. Analog 100 Units/Ml 3 Ml Pen) 6 units SUBCUT BID [facility] Last Admin: 10/20/20 08:29 Dose: 6 units Documented by: Ondansetron HCl (Ondansetron 4 Mg/2 Ml Sdv) 4 mg IVPUSH Q4H PRN PRN Reason: Nausea Last Admin: 10/20/20 06:12 Dose: 4 mg Documented by: Patient's Own MedicationSuboxone 8/2 Mg Tab 0.5 - 1 each .XX TID [facility] Last Admin: 10/20/20 06:07 Dose: 0.5 each Documented by: Discontinued Medications Bisacodyl (Bisacodyl 10 Mg Supp) 10 mg RECTAL ONETIME ONE Stop: 10/20/20 09:01 Dextrose/Water (50% Dextrose In Water 50 Ml Syringe) 25 ml IVPUSH ONETIME ONE Stop: 10/16/20 16:43 Last Admin: 10/16/20 17:12 Dose: 25 ml Documented by: Diphenhydramine HCl (Diphenhydramine 50 Mg/Ml Sdv) 25 mg IVPUSH ONETIME ONE Stop: 10/15/20 16:25 Last Admin: 10/15/20 16:32 Dose: 25 mg Documented by: Diphenhydramine HCl (Diphenhydramine 50 Mg/Ml Sdv) 25 mg IVPUSH ONETIME ONE Stop: 10/15/20 19:36 Last Admin: 10/15/20 19:43 Dose: 25 mg Documented by: Diphenhydramine HCl (Diphenhydramine 50 Mg/Ml Sdv) 25 mg IVPUSH ONETIME ONE Stop: 10/18/20 11:27 Last Admin: 10/18/20 12:15 Dose: 25 mg Documented by: Diphenhydramine HCl (Diphenhydramine 50 Mg/Ml Sdv) 12.5 mg IVPUSH ONETIME ONE Stop: 10/18/20 22:28 Last Admin: 10/18/20 23:10 Dose: 12.5 mg Documented by: Sodium Chloride (Normal Saline) 1,000 mls @ 999 mls/hr IV BOLUS ONE Stop: 10/15/20 16:57 Last Admin: 10/15/20 16:19 Dose: 999 mls/hr Documented by: Pantoprazole Sodium 80 mg/ (Sodium Chloride) 20 mls @ 420 mls/hr IVPUSH ONETIME ONE Stop: 10/15/20 16:04 Last Admin: 10/15/20 16:19 Dose: 420 mls/hr Documented by: Ceftriaxone Sodium/Dextrose 1 (gm/ Premix) 50 mls @ 100 mls/hr IV ONETIME ONE Stop: 10/15/20 18:36 Last Admin: 10/16/20 18:20 Dose: 100 mls/hr Documented by: Sodium Chloride (Normal Saline) 1,000 mls @ 125 mls/hr IV ASDIRECTED [facility] Last Admin: 10/16/20 08:01 Dose: 125 mls/hr Documented by: Ceftriaxone Sodium/Dextrose 1 (gm/ Premix) 50 mls @ 100 mls/hr IV Q24H [facility] Meropenem/Sodium Chloride (Meropenem In Ns 1 Gm/50 Ml) 50 mls @ 100 mls/hr IV Q8H [facility] Stop: 10/16/20 00:06 Last Admin: 10/16/20 01:32 Dose: Not Given Documented by: Ceftriaxone Sodium 1 gm/ (Sodium Chloride) 50 mls @ 100 mls/hr IV Q24H [facility] Last Admin: 10/16/20 19:01 Dose: Not Given Documented by: Dextrose/Sodium Chloride (Dextrose 5%-1/2 Ns) 1,000 mls @ 125 mls/hr IV ASDIRECTED [facility] Last Admin: 10/20/20 04:40 Dose: 125 mls/hr Documented by: Ceftriaxone Sodium/Dextrose (Rocephin In Dextrose,Iso-Osm 1 Gm/50 Ml) Confirm Administered Dose 50 mls @ as directed .ROUTE .STK-MED ONE Stop: 10/16/20 18:12 Last Admin: 10/16/20 18:10 Dose: 100 mls/hr Documented by: Erythromycin Lactobionate 300 (mg/ Sodium Chloride) 100 mls @ 100 mls/hr IV Q8H [facility] Last Admin: 10/17/20 19:39 Dose: Not Given Documented by: Potassium Chloride/Sodium Chloride (Normal Saline With 40 Meq Kcl) 1,000 mls @ 150 mls/hr IV ONETIME ONE Stop: 10/19/20 14:39 Last Admin: 10/19/20 09:02 Dose: 150 mls/hr Documented by: Magnesium Sulfate 2 gm/ Premix 50 mls @ 25 mls/hr IV ONETIME ONE Stop: 10/19/20 09:59 Last Admin: 10/19/20 09:02 Dose: 25 mls/hr Documented by: Insulin Aspart (Insulin Aspart 100 Units/Ml 3 Ml Pen) 5 unit SUBCUT TIDAC [facility] Last Admin: 10/16/20 11:32 Dose: Not Given Documented by: Insulin Glargine (Insulin Glargine,Human Rec. Analog 100 Units/Ml 3 Ml Pen) 15 units SUBCUT BID [facility] Last Admin: 10/16/20 09:33 Dose: 15 units Documented by: Insulin Human Regular (Insulin Regular, Human 100 Units/Ml 10 Ml Vial) 4 unit SUBCUT ASDIRECTED ONE; Protocol Stop: 10/15/20 17:02 Last Admin: 10/15/20 17:57 Dose: 4 units Documented by: Iopamidol (Iopamidol 755 Mg/Ml 500 Ml Multipack Bottle) 65 ml IVPUSH ONETIME STA Stop: 10/15/20 18:44 Last Admin: 10/15/20 18:44 Dose: 65 ml Documented by: Metoclopramide HCl (Metoclopramide 10 Mg/2 Ml Sdv) 10 mg IVPUSH ONETIME ONE Stop: 10/15/20 19:35 Last Admin: 10/15/20 19:43 Dose: 10 mg Documented by: Metoclopramide HCl (Metoclopramide 10 Mg/2 Ml Sdv) 10 mg IVPUSH Q6H PRN PRN Reason: Nausea Last Admin: 10/17/20 06:14 Dose: 10 mg Documented by: Morphine Sulfate (Morphine 4 Mg/Ml Syringe) 4 mg IVPUSH ONETIME ONE Stop: 10/15/20 16:04 Last Admin: 10/15/20 16:24 Dose: 4 mg Documented by: Ondansetron HCl (Ondansetron 4 Mg/2 Ml Sdv) 4 mg IVPUSH ONETIME ONE Stop: 10/15/20 15:59 Last Admin: 10/15/20 16:19 Dose: 4 mg Documented by: Patient's Own MedicationSuboxone 8/2 Mg Tab 3 each .XX DAILY [facility] Last Admin: 10/15/20 22:57 Dose: 0.5 each Documented by: Patient Own Medication (Patient's Own Medication 1 Each) 3 each .XX TID [facility] Promethazine HCl (Promethazine 25 Mg/Ml Sdv) 25 mg IM Q6H PRN PRN Reason: Nausea - Exam Quality Assessment: Supplemental Oxygen Urinary Catheter Total Time: 0Days 3Hours General: Alert, Oriented, Cooperative, No Acute Distress Lungs: Clear to Auscultation, Normal Respiratory Effort Cardiovascular: Regular Rate, Regular Rhythm GI/Abdominal Exam: Normal Bowel Sounds, Soft, Non-Tender Back Exam: Normal Inspection, Full Range of Motion Extremities: Normal Inspection, Normal Range of Motion, Non-Tender, No Pedal Edema Neurological: No New Focal Deficit Psy/Mental Status: Alert, Normal Affect, Normal Mood - Patient Data Lab Results Last 24 hrs: Laboratory Results - last 24 hr 10/19/20 10/19/20 10/19/20 Range/Units 11:16 12:35 16:22 WBC (4.0-11.0) K/uL RBC (4.50-5.90) M/uL Hgb (13.0-17.0) g/dL Hct (38.0-50.0) % MCV (80.0-98.0) fL MCH (27.0-32.0) pg MCHC (31.0-37.0) g/dL RDW Std Deviation (28.0-62.0) fl RDW Coeff of Erika (11.0-15.0) % Plt Count (150-400) K/uL MPV (7.40-12.00) fL Neut % (Auto) (48.0-80.0) % Lymph % (Auto) (16.0-40.0) % [place] % (Auto) (0.0-15.0) % Eos % (Auto) (0.0-7.0) % Baso % (Auto) (0.0-1.5) % Neut # (Auto) (1.4-5.7) K/uL Lymph # (Auto) (0.6-2.4) K/uL [place] # (Auto) (0.0-0.8) K/uL Eos # (Auto) (0.0-0.7) K/uL Baso # (Auto) (0.0-0.1) K/uL Nucleated RBC % /100WBC Nucleated RBCs # K/uL Sodium (136-148) mmol/L Potassium 3.3 L (3.5-5.1) mmol/L Chloride (98-107) mmol/L Carbon Dioxide (21.0-32.0) mmol/L BUN (7.0-18.0) mg/dL Creatinine (0.8-1.3) mg/dL Est Cr Clr Drug Dosing mL/min Estimated GFR (MDRD) ml/min Glucose (74-106) mg/dL POC Glucose 122 H (70-99) mg/dL Calcium (8.5-10.1) mg/dL Magnesium (1.8-2.4) mg/dL Urine Color YELLOW Urine Appearance CLEAR Urine pH 6.5 (5.0-8.0) Ur Specific [place] 1.025 (1.001-1.035) Urine Protein 100 H (NEGATIVE) mg/dL Urine Glucose (UA) 500 H (NEGATIVE) mg/dL Urine Ketones 15 H (NEGATIVE) mg/dL Urine Occult Blood LARGE H (NEGATIVE) Urine Nitrite NEGATIVE (NEGATIVE) Urine Bilirubin NEGATIVE (NEGATIVE) Urine Urobilinogen 0.2 (<2.0) EU/dL Ur Leukocyte Esterase NEGATIVE (NEGATIVE) Urine RBC 10-15 (0-2/HPF) Urine WBC 0-2 (0-5/HPF) Ur Epithelial Cells RARE (NONE-FEW) Urine Bacteria RARE (NEGATIVE) 10/19/20 10/19/20 10/20/20 Range/Units 18:15 21:39 05:23 WBC 5.11 (4.0-11.0) K/uL RBC 4.03 L (4.50-5.90) M/uL Hgb 10.5 L (13.0-17.0) g/dL Hct 31.2 L (38.0-50.0) % MCV 77.4 L (80.0-98.0) fL MCH 26.1 L (27.0-32.0) pg MCHC 33.7 (31.0-37.0) g/dL RDW Std Deviation 39.6 (28.0-62.0) fl RDW Coeff of Erika 14 (11.0-15.0) % Plt Count 217 (150-400) K/uL MPV 10.30 (7.40-12.00) fL Neut % (Auto) 44.0 L (48.0-80.0) % Lymph % (Auto) 47.2 H (16.0-40.0) % [place] % (Auto) 4.3 (0.0-15.0) % Eos % (Auto) 3.9 (0.0-7.0) % Baso % (Auto) 0.6 (0.0-1.5) % Neut # (Auto) 2.3 (1.4-5.7) K/uL Lymph # (Auto) 2.4 (0.6-2.4) K/uL [place] # (Auto) 0.2 (0.0-0.8) K/uL Eos # (Auto) 0.2 (0.0-0.7) K/uL Baso # (Auto) 0.0 (0.0-0.1) K/uL Nucleated RBC % 0.0 /100WBC Nucleated RBCs # 0 K/uL Sodium (136-148) mmol/L Potassium (3.5-5.1) mmol/L Chloride (98-107) mmol/L Carbon Dioxide (21.0-32.0) mmol/L BUN (7.0-18.0) mg/dL Creatinine (0.8-1.3) mg/dL Est Cr Clr Drug Dosing mL/min Estimated GFR (MDRD) ml/min Glucose (74-106) mg/dL POC Glucose 94 110 H (70-99) mg/dL Calcium (8.5-10.1) mg/dL Magnesium (1.8-2.4) mg/dL Urine Color Urine Appearance Urine pH (5.0-8.0) Ur Specific [place] (1.001-1.035) Urine Protein (NEGATIVE) mg/dL Urine Glucose (UA) (NEGATIVE) mg/dL Urine Ketones (NEGATIVE) mg/dL Urine Occult Blood (NEGATIVE) Urine Nitrite (NEGATIVE) Urine Bilirubin (NEGATIVE) Urine Urobilinogen (<2.0) EU/dL Ur Leukocyte Esterase (NEGATIVE) Urine RBC (0-2/HPF) Urine WBC (0-5/HPF) Ur Epithelial Cells (NONE-FEW) Urine Bacteria (NEGATIVE) 10/20/20 10/20/20 Range/Units 05:23 07:06 WBC (4.0-11.0) K/uL RBC (4.50-5.90) M/uL Hgb (13.0-17.0) g/dL Hct (38.0-50.0) % MCV (80.0-98.0) fL MCH (27.0-32.0) pg MCHC (31.0-37.0) g/dL RDW Std Deviation (28.0-62.0) fl RDW Coeff of Erika (11.0-15.0) % Plt Count (150-400) K/uL MPV (7.40-12.00) fL Neut % (Auto) (48.0-80.0) % Lymph % (Auto) (16.0-40.0) % [place] % (Auto) (0.0-15.0) % Eos % (Auto) (0.0-7.0) % Baso % (Auto) (0.0-1.5) % Neut # (Auto) (1.4-5.7) K/uL Lymph # (Auto) (0.6-2.4) K/uL [place] # (Auto) (0.0-0.8) K/uL Eos # (Auto) (0.0-0.7) K/uL Baso # (Auto) (0.0-0.1) K/uL Nucleated RBC % /100WBC Nucleated RBCs # K/uL Sodium 138 (136-148) mmol/L Potassium 3.6 (3.5-5.1) mmol/L Chloride 106 (98-107) mmol/L Carbon Dioxide 27.3 (21.0-32.0) mmol/L BUN 9 (7.0-18.0) mg/dL Creatinine 0.9 (0.8-1.3) mg/dL Est Cr Clr Drug Dosing 95.00 mL/min Estimated GFR (MDRD) > 60.0 ml/min Glucose 358 H (74-106) mg/dL POC Glucose 375 H (70-99) mg/dL Calcium 8.0 L (8.5-10.1) mg/dL Magnesium 1.9 (1.8-2.4) mg/dL Urine Color Urine Appearance Urine pH (5.0-8.0) Ur Specific [place] (1.001-1.035) Urine Protein (NEGATIVE) mg/dL Urine Glucose (UA) (NEGATIVE) mg/dL Urine Ketones (NEGATIVE) mg/dL Urine Occult Blood (NEGATIVE) Urine Nitrite (NEGATIVE) Urine Bilirubin (NEGATIVE) Urine Urobilinogen (<2.0) EU/dL Ur Leukocyte Esterase (NEGATIVE) Urine RBC (0-2/HPF) Urine WBC (0-5/HPF) Ur Epithelial Cells (NONE-FEW) Urine Bacteria (NEGATIVE) Result Diagrams: 10/20/20 05:23 10/20/20 05:23 [place] Results Last 24 hrs: Microbiology 10/15/20 17:09 Aerobic Blood Culture - Preliminary Blood - Venous - Lab Draw NO GROWTH AFTER 4 DAYS Anaerobic Blood Culture - Preliminary NO GROWTH AFTER 4 DAYS 10/15/20 16:49 Aerobic Blood Culture - Preliminary Blood - Venous NO GROWTH AFTER 4 DAYS Anaerobic Blood Culture - Preliminary NO GROWTH AFTER 4 DAYS Sepsis Event Note - Evaluation Sepsis Screening Result: No Definite Risk - Focused Exam Vital Signs: Vital Signs Temp Pulse Resp BP BP Pulse Ox 10/20/20 08:00 98.1 F 82 14 120/93 H 97 10/20/20 04:30 98.8 F 80 18 121/86 98 10/20/20 00:46 97.9 F 83 18 114/76 98 - Problem List & Annotations (1) Acute pyelonephritis SNOMED Code(s): 65008080 Code(s): N10 - ACUTE PYELONEPHRITIS Status: Acute Current Visit: Yes (2) Abdominal pain SNOMED Code(s): 32681037 Code(s): R10.9 - UNSPECIFIED ABDOMINAL PAIN Status: Acute Current Visit: No (3) Dehydration SNOMED Code(s): 69071777 Code(s): E86.0 - DEHYDRATION Status: Acute Current Visit: No (4) Diabetes type 1, uncontrolled SNOMED Code(s): 41732129, 470971870 Code(s): E10.65 - TYPE 1 DIABETES MELLITUS WITH HYPERGLYCEMIA Status: Chronic Priority: Medium Current Visit: No Qualifiers: Glycemic state: with hyperglycemia Qualified Code(s): E10.65 - Type 1 diabetes mellitus with hyperglycemia (5) History of neurogenic bladder SNOMED Code(s): 641179804 Code(s): Z87.448 - PERSONAL HISTORY OF OTHER DISEASES OF URINARY SYSTEM Status: Chronic Current Visit: No (6) Hx of opioid abuse SNOMED Code(s): 955464471 Code(s): F11.11 - OPIOID ABUSE, IN REMISSION Status: Chronic Current Visit: No (7) Medical non-compliance SNOMED Code(s): 099867842 Code(s): Z91.19 - PATIENT'S NONCOMPLIANCE W OTH MEDICAL TREATMENT AND REGIMEN Status: Chronic Priority: Medium Current Visit: No (8) 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 SNOMED Code(s): 221807880 Code(s): E10.40 - TYPE 1 DIABETES MELLITUS WITH DIABETIC NEUROPATHY, UNSP Status: Chronic Priority: Medium Current Visit: No (9) Diabetic gastroparesis SNOMED Code(s): 408630301 Code(s): E11.43 - TYPE 2 DIABETES W DIABETIC AUTONOMIC (POLY)NEUROPATHY; K31.84 - GASTROPARESIS Status: Acute Priority: Medium Current Visit: No - Problem List Review Problem List Initiated/Reviewed/Updated: Yes - My Orders Last 24 Hours: My Active Orders 10/20/20 07:55 Insulin Aspart [NovoLOG] 5 unit SUBCUT TIDAC - Plan Plan:: 25 yo male with pmh of DM admitted for pyelonephritis and gastroparesis. 1. E. coli pyelonephritis: -Continue Rocephin, continue Rocephin as E. coli is resistant to fluo roquinolones and Bactrim -Blood cultures negative -Repeat UA clear -Bladder scan has been throughout the day straight cath as needed for inability to urinate. -Voiding on his own 2. Gastroparesis: -Nausea improved and tolerating diet -Continue erythromycin 300 mg every 8 hours IV monitor improvement in abdominal pain and nausea vomiting -Discontinue IV fluids -EKGs daily to monitor QTC, QTC stable -prn antiemetics Zofran -Last admission patient was placed on erythromycin secondary to GI recommendations, but symptoms quickly improved with reintroduction of Suboxone a nd stopping as needed morphine. 3. DM type I: -Increase Lantus to 12 units twice daily -Continue sliding scale insulin will add premeal as well -ADA diet as tolerated 4. History of opioid addiction -Continue Suboxone -Did discuss possibility of sublingual film Suboxone and that he should discuss this with his provider the next refill he has. VTE prophylaxis: SCDs due to recent upper GI bleed GI prophylaxis: On Protonix CODE STATUS: Full code Dispo: Likely in a.m.
[2020-10-20] MEDS ORDERED: Bisacodyl 5 MG Tab PO ONE (09:45)
[2020-10-20] MEDS: cefTRIAXone 1 GM in Premix Bag 1 BAG IV SCH (18:20)
[2020-10-21] MEDS: ERYTHROMYCIN LACTOBIONATE IV SCH (04:14)
[2020-10-21] MEDS: SODIUM CHLORIDE 0.9% IV SCH (04:14)
[2020-10-21 06:48] LABS: BLOOD UREA NITROGEN,BUN 10 mg/dL (7.0-18.0); CHLORIDE,CL 105 mmol/L (98-107); GLUCOSE RANDOM 300 mg/dL (74-106); POTASSIUM,K 3.3 mmol/L (3.5-5.1); SODIUM,NA 140 mmol/L (136-148)
[2020-10-21] MEDS: SUBOXONE SCH ×2 (07:03→14:27)
[2020-10-21] MEDS: Insulin Aspart 100 Units/ML 3 ML Pen SUBCUT SCH ×4 (07:57→11:54)
[2020-10-21] MEDS: Insulin Glargine,Human Rec. Analog 100 Units/ML 3 ML Pen SUBCUT SCH (08:02)
[2020-10-21] MEDS ORDERED: Potassium Chloride Riders 40 MEQ in Premix Bag 1 BAG IV ONE (09:07)
[2020-10-21] MEDS ORDERED: Potassium Chloride 40 MEQ in Sodium Chloride 0.9% 500 ML IV ONE (09:30)
--- NOTE | 2020-10-21 11:38 | PCM.DCSUM1 ---
Discharge Summary - Hospital Course Free Text/Narrative:: In the ER patient was found to have UTI, CT scan of the abdomen showed urinary bladder wall thickening with extensive gas within the bladder wall strongly suggestive of emphysematous cystitis as well as mild bilateral pyelonephritis. Patient was admitted for further management of cystitis and pyelonephritis. 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 Patient was started on IV antibiotics and blood cultures were sent as well as urine cultures patient received symptomatic treatment for his nausea vomiting abdominal pain, he did have episodes of urinary retention after he received IV Benadryl for his generalized itching, patient intermittently declined bladder scans as well as straight cath. IV Benadryl was eventually stopped and patient was switched to oral Benadryl which did help and is also retention and patient was able to be on his own. Patient was also started on erythromycin for gastroparesis as suggested previously by GI, reportedly patient initially said he did not take the erythromycin but towards the end said that he did in fact take it but probably did not finish the course. Patient was eventually eating and drinking better abdominal pain resolved his urine cultures came back and based on the cultures patient was sent home on oral antibiotics. Patient was recommended to follow-up with GI as well as urology and his PCP upon discharge - Discharge Data Discharge Date: 10/21/20 Discharge Disposition: Home, Self-Care 01 Condition: Good - Referral to Home Health Primary Care Physician: PCP Not In Area - Patient Instructions Diet: Diabetic Diet Activity: No Strenuous Activities Showering/Bathing: May Shower Notify Provider of: Fever, Increased Pain, Swelling and Redness, Drainage, Nausea and/or Vomiting - Discharge Plan *PRESCRIPTION DRUG MONITORING PROGRAM REVIEWED*: Not Applicable *COPY OF PRESCRIPTION DRUG MONITORING REPORT IN PATIENT HANY: Not Applicable Prescriptions/Med Rec: Erythromycin Ethylsuccinate 200 mg PO TIDMEALS #20 susp.recon Cefdinir [Omnicef] 300 mg PO BID #20 cap Home Medications: Home Meds Insulin Aspart [NovoLOG] 10 - 15 unit SUBCUT TIDAC 08/22/20 [History] Insulin Glarg,Human.Rec.Analog [Lantus Solostar] 15 units SUBCUT BID 08/22/20 [History] Buprenorphine HCl/Naloxone HCl [Buprenorphine-Nalox 8-2 mg Tab] 3 tab SL DAILY 09/15/20 [History] Sucralfate [Carafate] 1 gm PO QIDACANDBED #120 tab 09/19/20 [Rx] Ondansetron [Zofran ODT] 4 mg PO Q6H PRN #12 tab.dis 10/14/20 [Rx] Cefdinir [Omnicef] 300 mg PO BID #20 cap 10/20/20 [Rx] Erythromycin Ethylsuccinate 200 mg PO TIDMEALS #20 susp.recon 10/20/20 [Rx] Oxygen Therapy Mode: Room Air Patient Handouts: Cefdinir Capsules, Pyelonephritis, Adult, [id number], Urinary Tract Infection, Adult, [id number], Erythromycin oral suspension Referrals: Lonny Lomas DO [Ordering Only Provider] - - Discharge Summary/Plan Comment DC Time >30 min.: No Total # of Minutes for Discharge Time: 20 - Patient Data Vitals - Most Recent: Last Vital Signs Temp 36.5 C 10/21/20 09:20 Pulse 88 10/21/20 09:20 Resp 16 10/21/20 09:20 BP 143/103 H 10/21/20 09:20 Pulse Ox 100 10/21/20 09:20 Weight - Most Recent: 52.617 kg I&O - Last 24 hours: Intake & Output 10/20/20 10/21/20 10/21/20 22:59 06:59 14:59 Intake Total 680 1050 Output Total 1050 900 Balance -370 150 Lab Results - Last 24 hrs: Laboratory Results - last 24 hr 10/20/20 10/21/20 10/21/20 Range/Units 12:25 05:27 05:27 WBC 5.54 (4.0-11.0) K/uL RBC 3.95 L (4.50-5.90) M/uL Hgb 10.3 L (13.0-17.0) g/dL Hct 30.7 L (38.0-50.0) % MCV 77.7 L (80.0-98.0) fL MCH 26.1 L (27.0-32.0) pg MCHC 33.6 (31.0-37.0) g/dL RDW Std Deviation 39.8 (28.0-62.0) fl RDW Coeff of Erika 14 (11.0-15.0) % Plt Count 212 (150-400) K/uL MPV 10.40 (7.40-12.00) fL Neut % (Auto) 49.8 (48.0-80.0) % Lymph % (Auto) 43.3 H (16.0-40.0) % [place] % (Auto) 3.4 (0.0-15.0) % Eos % (Auto) 3.1 (0.0-7.0) % Baso % (Auto) 0.4 (0.0-1.5) % Neut # (Auto) 2.8 (1.4-5.7) K/uL Lymph # (Auto) 2.4 (0.6-2.4) K/uL [place] # (Auto) 0.2 (0.0-0.8) K/uL Eos # (Auto) 0.2 (0.0-0.7) K/uL Baso # (Auto) 0.0 (0.0-0.1) K/uL Nucleated RBC % 0.0 /100WBC Nucleated RBCs # 0 K/uL Sodium 140 (136-148) mmol/L Potassium 3.3 L (3.5-5.1) mmol/L Chloride 105 (98-107) mmol/L Carbon Dioxide 29.0 (21.0-32.0) mmol/L BUN 10 (7.0-18.0) mg/dL Creatinine 0.9 (0.8-1.3) mg/dL Est Cr Clr Drug Dosing 95.00 mL/min Estimated GFR (MDRD) > 60.0 ml/min Glucose 300 H (74-106) mg/dL POC Glucose 152 H (70-99) mg/dL Calcium 7.8 L (8.5-10.1) mg/dL 10/21/20 Range/Units 07:00 WBC (4.0-11.0) K/uL RBC (4.50-5.90) M/uL Hgb (13.0-17.0) g/dL Hct (38.0-50.0) % MCV (80.0-98.0) fL MCH (27.0-32.0) pg MCHC (31.0-37.0) g/dL RDW Std Deviation (28.0-62.0) fl RDW Coeff of Erika (11.0-15.0) % Plt Count (150-400) K/uL MPV (7.40-12.00) fL Neut % (Auto) (48.0-80.0) % Lymph % (Auto) (16.0-40.0) % [place] % (Auto) (0.0-15.0) % Eos % (Auto) (0.0-7.0) % Baso % (Auto) (0.0-1.5) % Neut # (Auto) (1.4-5.7) K/uL Lymph # (Auto) (0.6-2.4) K/uL [place] # (Auto) (0.0-0.8) K/uL Eos # (Auto) (0.0-0.7) K/uL Baso # (Auto) (0.0-0.1) K/uL Nucleated RBC % /100WBC Nucleated RBCs # K/uL Sodium (136-148) mmol/L Potassium (3.5-5.1) mmol/L Chloride (98-107) mmol/L Carbon Dioxide (21.0-32.0) mmol/L BUN (7.0-18.0) mg/dL Creatinine (0.8-1.3) mg/dL Est Cr Clr Drug Dosing mL/min Estimated GFR (MDRD) ml/min Glucose (74-106) mg/dL POC Glucose 297 H (70-99) mg/dL Calcium (8.5-10.1) mg/dL YADY Results - Last 24 hrs: Microbiology 10/15/20 17:09 Aerobic Blood Culture - Final Blood - Venous - Lab Draw NO GROWTH AFTER 5 DAYS Anaerobic Blood Culture - Final NO GROWTH AFTER 5 DAYS 10/15/20 16:49 Aerobic Blood Culture - Final Blood - Venous NO GROWTH AFTER 5 DAYS Anaerobic Blood Culture - Final NO GROWTH AFTER 5 DAYS Med Orders - Current: Current Medications Dextrose/Water (50% Dextrose In Water 50 Ml Syringe) 50 ml IVPUSH ASDIRECTED PRN PRN Reason: Hypoglycemia Diphenhydramine HCl (Diphenhydramine 25 Mg Cap) 25 mg PO Q6H PRN PRN Reason: Itching Last Admin: 10/19/20 18:44 Dose: 25 mg Documented by: Glucagon (Glucagon,Human Recombinant 1 Mg Vial) 1 mg IM ASDIRECTED PRN PRN Reason: Hypoglycemia Ceftriaxone Sodium/Dextrose 1 (gm/ Premix) 50 mls @ 100 mls/hr IV Q24H [facility] Last Admin: 10/20/20 18:20 Dose: 100 mls/hr Documented by: Erythromycin Lactobionate 300 (mg/ Sodium Chloride) 100 mls @ 100 mls/hr IV Q8H [facility] Potassium Chloride 40 meq/ (Sodium Chloride) 520 mls @ 130 mls/hr IV ONETIME ONE Stop: 10/21/20 13:29 Last Admin: 10/21/20 09:57 Dose: 130 mls/hr Documented by: Insulin Aspart (Insulin Aspart 100 Units/Ml 3 Ml Pen) 0 unit SUBCUT TIDAC [facility]; Protocol Last Admin: 10/21/20 07:57 Dose: 3 units Documented by: Insulin Aspart (Insulin Aspart 100 Units/Ml 3 Ml Pen) 5 unit SUBCUT TIDAC [facility] Last Admin: 10/21/20 07:58 Dose: 5 units Documented by: Insulin Glargine (Insulin Glargine,Human Rec. Analog 100 Units/Ml 3 Ml Pen) 12 units SUBCUT BID [facility] Last Admin: 10/21/20 08:02 Dose: 12 units Documented by: Ondansetron HCl (Ondansetron 4 Mg/2 Ml Sdv) 4 mg IVPUSH Q4H PRN PRN Reason: Nausea Last Admin: 10/20/20 14:24 Dose: 4 mg Documented by: Patient's Own MedicationSuboxone 8/2 Mg Tab 0.5 - 1 each .XX TID [facility] Last Admin: 10/21/20 07:03 Dose: 0.5 each Documented by: Discontinued Medications Bisacodyl (Bisacodyl 10 Mg Supp) 10 mg RECTAL ONETIME ONE Stop: 10/20/20 09:01 Last Admin: 10/20/20 10:51 Dose: 10 mg Documented by: Bisacodyl (Bisacodyl 5 Mg Tab) 5 mg PO ONETIME ONE Stop: 10/20/20 09:46 Last Admin: 10/20/20 10:51 Dose: 5 mg Documented by: Dextrose/Water (50% Dextrose In Water 50 Ml Syringe) 25 ml IVPUSH ONETIME ONE Stop: 10/16/20 16:43 Last Admin: 10/16/20 17:12 Dose: 25 ml Documented by: Diphenhydramine HCl (Diphenhydramine 50 Mg/Ml Sdv) 25 mg IVPUSH ONETIME ONE Stop: 10/15/20 16:25 Last Admin: 10/15/20 16:32 Dose: 25 mg Documented by: Diphenhydramine HCl (Diphenhydramine 50 Mg/Ml Sdv) 25 mg IVPUSH ONETIME ONE Stop: 10/15/20 19:36 Last Admin: 10/15/20 19:43 Dose: 25 mg Documented by: Diphenhydramine HCl (Diphenhydramine 50 Mg/Ml Sdv) 25 mg IVPUSH ONETIME ONE Stop: 10/18/20 11:27 Last Admin: 10/18/20 12:15 Dose: 25 mg Documented by: Diphenhydramine HCl (Diphenhydramine 50 Mg/Ml Sdv) 12.5 mg IVPUSH ONETIME ONE Stop: 10/18/20 22:28 Last Admin: 10/18/20 23:10 Dose: 12.5 mg Documented by: Sodium Chloride (Normal Saline) 1,000 mls @ 999 mls/hr IV BOLUS ONE Stop: 10/15/20 16:57 Last Admin: 10/15/20 16:19 Dose: 999 mls/hr Documented by: Pantoprazole Sodium 80 mg/ (Sodium Chloride) 20 mls @ 420 mls/hr IVPUSH ONETIME ONE Stop: 10/15/20 16:04 Last Admin: 10/15/20 16:19 Dose: 420 mls/hr Documented by: Ceftriaxone Sodium/Dextrose 1 (gm/ Premix) 50 mls @ 100 mls/hr IV ONETIME ONE Stop: 10/15/20 18:36 Last Admin: 10/16/20 18:20 Dose: 100 mls/hr Documented by: Sodium Chloride (Normal Saline) 1,000 mls @ 125 mls/hr IV ASDIRECTED [facility] Last Admin: 10/16/20 08:01 Dose: 125 mls/hr Documented by: Ceftriaxone Sodium/Dextrose 1 (gm/ Premix) 50 mls @ 100 mls/hr IV Q24H [facility] Meropenem/Sodium Chloride (Meropenem In Ns 1 Gm/50 Ml) 50 mls @ 100 mls/hr IV Q8H [facility] Stop: 10/16/20 00:06 Last Admin: 10/16/20 01:32 Dose: Not Given Documented by: Ceftriaxone Sodium 1 gm/ (Sodium Chloride) 50 mls @ 100 mls/hr IV Q24H [facility] Last Admin: 10/16/20 19:01 Dose: Not Given Documented by: Dextrose/Sodium Chloride (Dextrose 5%-1/2 Ns) 1,000 mls @ 125 mls/hr IV ASDIRECTED [facility] Last Admin: 10/20/20 04:40 Dose: 125 mls/hr Documented by: Ceftriaxone Sodium/Dextrose (Rocephin In Dextrose,Iso-Osm 1 Gm/50 Ml) Confirm Administered Dose 50 mls @ as directed .ROUTE .STK-MED ONE Stop: 10/16/20 18:12 Last Admin: 10/16/20 18:10 Dose: 100 mls/hr Documented by: Erythromycin Lactobionate 300 (mg/ Sodium Chloride) 100 mls @ 100 mls/hr IV Q8H [facility] Last Admin: 10/17/20 19:39 Dose: Not Given Documented by: Erythromycin Lactobionate 300 (mg/ Sodium Chloride) 100 mls @ 100 mls/hr IV Q8H [facility] Last Admin: 10/21/20 04:14 Dose: 100 mls/hr Documented by: Potassium Chloride/Sodium Chloride (Normal Saline With 40 Meq Kcl) 1,000 mls @ 150 mls/hr IV ONETIME ONE Stop: 10/19/20 14:39 Last Admin: 10/19/20 09:02 Dose: 150 mls/hr Documented by: Magnesium Sulfate 2 gm/ Premix 50 mls @ 25 mls/hr IV ONETIME ONE Stop: 10/19/20 09:59 Last Admin: 10/19/20 09:02 Dose: 25 mls/hr Documented by: Insulin Aspart (Insulin Aspart 100 Units/Ml 3 Ml Pen) 5 unit SUBCUT TIDAC [facility] Last Admin: 10/16/20 11:32 Dose: Not Given Documented by: Insulin Glargine (Insulin Glargine,Human Rec. Analog 100 Units/Ml 3 Ml Pen) 15 units SUBCUT BID [facility] Last Admin: 10/16/20 09:33 Dose: 15 units Documented by: Insulin Glargine (Insulin Glargine,Human Rec. Analog 100 Units/Ml 3 Ml Pen) 6 units SUBCUT BID [facility] Last Admin: 10/20/20 08:29 Dose: 6 units Documented by: Insulin Human Regular (Insulin Regular, Human 100 Units/Ml 10 Ml Vial) 4 unit SUBCUT ASDIRECTED ONE; Protocol Stop: 10/15/20 17:02 Last Admin: 10/15/20 17:57 Dose: 4 units Documented by: Iopamidol (Iopamidol 755 Mg/Ml 500 Ml Multipack Bottle) 65 ml IVPUSH ONETIME STA Stop: 10/15/20 18:44 Last Admin: 10/15/20 18:44 Dose: 65 ml Documented by: Metoclopramide HCl (Metoclopramide 10 Mg/2 Ml Sdv) 10 mg IVPUSH ONETIME ONE Stop: 10/15/20 19:35 Last Admin: 10/15/20 19:43 Dose: 10 mg Documented by: Metoclopramide HCl (Metoclopramide 10 Mg/2 Ml Sdv) 10 mg IVPUSH Q6H PRN PRN Reason: Nausea Last Admin: 10/17/20 06:14 Dose: 10 mg Documented by: Morphine Sulfate (Morphine 4 Mg/Ml Syringe) 4 mg IVPUSH ONETIME ONE Stop: 10/15/20 16:04 Last Admin: 10/15/20 16:24 Dose: 4 mg Documented by: Ondansetron HCl (Ondansetron 4 Mg/2 Ml Sdv) 4 mg IVPUSH ONETIME ONE Stop: 10/15/20 15:59 Last Admin: 10/15/20 16:19 Dose: 4 mg Documented by: Patient's Own MedicationSuboxone 8/2 Mg Tab 3 each .XX DAILY [facility] Last Admin: 10/15/20 22:57 Dose: 0.5 each Documented by: Patient Own Medication (Patient's Own Medication 1 Each) 3 each .XX TID [facility] Promethazine HCl (Promethazine 25 Mg/Ml Sdv) 25 mg IM Q6H PRN PRN Reason: Nausea *Q Meaningful Use (DIS) - VTE *Q VTE Anticoagulation Contraindications: Medical/Procedure Contrai
[2020-10-21 11:51] VITALS: BP 139/95; PULSE 84
[2020-10-21] MEDS ORDERED: ERYTHROMYCIN LACTOBIONATE IV SCH (12:45)
[2020-10-21] MEDS ORDERED: SODIUM CHLORIDE 0.9% IV SCH (12:45)
--- NOTE | 2020-10-26 11:33 | EDM.PDOC ---
ED HPI GENERAL MEDICAL PROBLEM - General Chief Complaint: General Stated Complaint: DIEBETIC Time Seen by Provider: 10/15/20 15:56 Source of Information: Reports: [facility]it[facility] Records History Limitations: Reports: No Limitations - History of Present Illness INITIAL COMMENTS - FREE TEXT/NARRATIVE: HISTORY AND PHYSICAL: History of present illness: Patient is a 25-year-old male, with a history of type 1 diabetes, frequent urinary tract infection, and prior GI bleed, who presents emergency room today with concern of nausea, vomiting, and lower abdominal pain x2 days. Patient s tates that he was seen in the emergency room earlier and was sent home and states that he has continued to have symptoms and states he has not been able to eat or drink and has had increasing lower abdominal pain as well as come to the emergency room. Patient states his blood sugars at home have been "normal for him "and states they have been around the 200s. Patient states he has been using his insulin appropriately. Patient denies any trauma or injury or any other symptoms or concerns. Patient denies any blood in his emesis. Patient denies fever, chills, chest pain, shortness of breath, or cough. Denies headache, neck stiff ness, change in vision, syncope, or near syncope. Denies diarrhea, constipation, or dysuria. Has not noted any blood in urine or stool. Review of systems: As per history of present illness and below otherwise all systems reviewed and negative. Past medical history: As per history of present illness and as reviewed below otherwise noncontributory. Surgical history: As per history of present illness and as reviewed below otherwise noncontributory. Social history: See social history for further information Family history: As per history of present illness and as reviewed below otherwise noncontributory. Physical exam: General: Patient is alert, oriented, and in no acute distress. Patient sitting on exam table, patient is actively dry heaving on exam. Patient is tachycardic 120s on exam, otherwise vitals stable and reviewed by me. HEENT: Atraumatic, normocephalic, pupils equal and reactive bilaterally, negative for conjunctival pallor or scleral icterus, mucous membranes moist, TMs normal bilaterally, throat clear, neck supple, nontender, trachea midline. No drooling or trismus noted. No meningeal signs. No hot potato voice noted. Lungs: Clear to auscultation, breath sounds equal bilaterally, chest nontender. Heart: S1S2, regular rate and rhythm without overt murmur Abdomen: Soft, nondistended, lower abdominal tenderness with guarding. Negative for masses or hepatosplenomegaly. Positive for costovertebral tenderness bilaterally. Pelvis: Stable nontender. Genitourinary: Deferred. Rectal: Deferred. Skin: Intact, warm, dry. No lesions or rashes noted. Extremities: Atraumatic, negative for cords or calf pain. Neurovascular unremarkable. Neuro: Awake, alert, oriented. Cranial nerves II through XII unremarkable. Cerebellum unremarkable. Motor and sensory unremarkable throughout. Exam nonfocal. Notes: Patient is a 25-year-old male, with a history of type 1 diabetes, and frequent urinary tract infection, who presents emergency room today with concern of nausea, vomiting, and lower abdominal pain x2 days. Upon arrival to the ED, patient is tachycardic 120s on exam but is also actively dry heaving on exam. Patient does have diffuse lower abdominal tenderness with guarding on exam with positive CVA tenderness. Will obtain lab work with abdominal pelvic CT scan. CBC shows mild anemia at 11.1 hemoglobin, hematocrit 33.6, red blood cells at 4.19, otherwise mild derangements of CBC unremarkable. CMP shows isolated elevation of BUN at 30, glucose is 326, otherwise mild derangements of CMP unremarkable. ABG shows a pH within normal limits at 7.36. Urinalysis does show 100 protein with 15 ketones. 10-15 red blood cells with 40-50 white blood cells and 4+ bacteria concerning for acute cystitis. Given physical exam, concern for acute pyelonephritis. Small amount of ketones noted in blood. COVID-[address] scan shows urinary bladder wall thickening and extensive gas within the bladder wall, strongly suggestive of emphysematous cystitis. Question of mild bilateral pyelonephritis. Nonspecific distention of the gallbladder with probable gallbladder sludge or small gallstones. Upon reevaluation of patient, his heart rate has improved to 80 bpm and remains otherwise vitally stable. He does express improvement of his symptoms with therapeutics given today in the emergency room. I did call and speak to the hospitalist on-call, Dr. Welch, and thoroughly discussed patient's case. Will admit to observation to Dr. Welch. Voices understanding and is agreeable to plan of care. Denies any further questions or concerns at this time. Diagnostics: CBC, CMP, lipase, ABG, blood ketone, urinalysis, COVID-19, abdominal pelvic CT scan with contrast, lactate, blood cultures x2 Therapeutics: Normal saline, Protonix, Zofran, morphine, Reglan, Benadryl, Rocephin, insulin subcu Impression: Acute pyelonephritis Hyperglycemia Plan: Mid to observation to Dr. Welch Definitive disposition and diagnosis as appropriate pending reevaluation and review of above. Middle Abdomen Pain Score (Numeric/FACES): 6 - Related Data Allergies Allergy/AdvReac Type Severity Reaction Status Date / Time amoxicillin Allergy Mild Nausea and Verified 10/15/20 20:55 Vomiting seafood Allergy Severe Vomiting Uncoded 10/15/20 20:55 Home Meds: Home Meds Insulin Aspart [NovoLOG] 10 - 15 unit SUBCUT TIDAC 08/22/20 [History] Insulin Glarg,Human.Rec.Analog [Lantus Solostar] 15 units SUBCUT BID 08/22/20 [History] Buprenorphine HCl/Naloxone HCl [Buprenorphine-Nalox 8-2 mg Tab] 3 tab SL DAILY 09/15/20 [History] Sucralfate [Carafate] 1 gm PO QIDACANDBED #120 tab 09/19/20 [Rx] Ondansetron [Zofran ODT] 4 mg PO Q6H PRN #12 tab.dis 10/14/20 [Rx] Cefdinir [Omnicef] 300 mg PO BID #20 cap 10/20/20 [Rx] Erythromycin Ethylsuccinate 200 mg PO TIDMEALS #20 susp.recon 10/20/20 [Rx] Past Medical History - Past Health History Medical/Surgical History: Denies Medical/Surgical History HEENT History: Reports: Impaired Vision Other HEENT History: ear ache, broken and missing teeth, impaired vision in left eye Cardiovascular History: Reports: None Respiratory History: Reports: None Gastrointestinal History: Reports: GERD, GI Bleed, Irritable Bowel Syndrome Other Gastrointestinal History: gastroparesis, ulcer Genitourinary History: Reports: Pyelonephritis, Other (See Below) Other Genitourinary History: hydronephrosis, neurogenic bladder Musculoskeletal History: Reports: Fracture Other Musculoskeletal History: Elbow long time ago Neurological History: Reports: None Psychiatric History: Reports: Anxiety, Depression Endocrine/Metabolic History: Reports: Diabetes, Type I Other Endocrine/Metabolic History: non-compliant to DM medications Insulin Pump Model and Unmanned Equipment Operator: None Hematologic History: Reports: None Immunologic History: Reports: None Oncologic (Cancer) History: Reports: None Dermatologic History: Reports: Other (See Below) Other Dermatologic History: dry itchy skin - Infectious Disease History Infectious Disease History: Reports: None - Past Surgical History Head Surgeries/Procedures: Reports: None HEENT Surgical History: Reports: None GI Surgical History: Reports: None Male Surgical History: Reports: None Endocrine Surgical History: Reports: None Musculoskeletal Surgical History: Reports: None Dermatological Surgical History: Reports: None Social & Family History - Family History Family Medical History: No Pertinent Family History OBGYN: Reports: Endocrine/Metabolic: Reports: Diabetes, Type I, Diabetes, type II - Tobacco Use Tobacco Use Status *Q: Former Tobacco User Used Tobacco, but Quit: Yes Month/Year Tobacco Last Used: Yesterday one cigarette Second Hand Smoke Exposure: No - Caffeine Use Caffeine Use: Reports: Coffee, Energy Drinks, Soda - Recreational Drug Use Recreational Drug Use: Yes Recreational Drug Type: Reports: Other (see below) Other Recreational Drug Type: Pain Pills. Patient did not specify. Recreational Drug Use Frequency: Not Used In Over 6 Months Recreational Drug Last Use: "3 years ago" - Living Situation & Occupation Living situation: Reports: Single, with Family Occupation: Unemployed ED ROS GENERAL - Review of Systems Review Of Systems: Comprehensive ROS is negative, except as noted in HPI. ED EXAM, GENERAL - Physical Exam Exam: See Below (See dictation) GI/Abdominal: Normal Bowel Sounds, Soft, Non-Tender Back Exam: Normal Inspection, Full Range of Motion Extremities: Normal Inspection, Normal Range of Motion, Non-Tender, No Pedal Edema Course - Vital Signs Last Recorded V/S: Last Vital Signs Temp 97.5 F 10/21/20 11:50 Pulse 84 10/21/20 11:50 Resp 16 10/21/20 11:50 BP 139/95 H 10/21/20 11:50 Pulse Ox 98 10/21/20 11:50 - Orders/Labs/Meds Labs: Laboratory Tests 10/15/20 10/15/20 10/15/20 Range/Units 14:20 16:04 16:20 WBC (4.0-11.0) K/uL RBC (4.50-5.90) M/uL Hgb (13.0-17.0) g/dL Hct (38.0-50.0) % MCV (80.0-98.0) fL MCH (27.0-32.0) pg MCHC (31.0-37.0) g/dL RDW Std Deviation (28.0-62.0) fl RDW Coeff of Erika (11.0-15.0) % Plt Count (150-400) K/uL MPV (7.40-12.00) fL Neut % (Auto) (48.0-80.0) % Lymph % (Auto) (16.0-40.0) % [place] % (Auto) (0.0-15.0) % Eos % (Auto) (0.0-7.0) % Baso % (Auto) (0.0-1.5) % Neut # (Auto) (1.4-5.7) K/uL Lymph # (Auto) (0.6-2.4) K/uL [place] # (Auto) (0.0-0.8) K/uL Eos # (Auto) (0.0-0.7) K/uL Baso # (Auto) (0.0-0.1) K/uL Nucleated RBC % /100WBC Nucleated RBCs # K/uL ABG pH 7.36 (7.35-7.45) ABG pCO2 42 (35-45) mmHG ABG pO2 74 L (80-105) mmHG ABG HCO3 24 (22-26) mEq/L ABG Total CO2 22.5 L (23-27) mmol/L ABG Base Excess -1.5 (-2.0-3.0) Sodium (136-148) mmol/L Potassium (3.5-5.1) mmol/L Chloride (98-107) mmol/L Carbon Dioxide (21.0-32.0) mmol/L BUN (7.0-18.0) mg/dL Creatinine (0.8-1.3) mg/dL Est Cr Clr Drug Dosing mL/min Estimated GFR (MDRD) ml/min Glucose (74-106) mg/dL POC Glucose 292 H (70-99) mg/dL Lactic Acid (0.4-2.0) mmol/L Calcium (8.5-10.1) mg/dL Total Bilirubin (0.2-1.0) mg/dL AST (15-37) IU/L ALT (14-63) IU/L Alkaline Phosphatase (46-116) U/L Total Protein (6.4-8.2) g/dL Albumin (3.4-5.0) g/dL Globulin (2.6-4.0) g/dL Albumin/Globulin Ratio (0.9-1.6) Lipase (73-393) U/L Urine Color Urine Appearance Urine pH (5.0-8.0) Ur Specific Cullen (1.001-1.035) Urine Protein (NEGATIVE) mg/dL Urine Glucose (UA) (NEGATIVE) mg/dL Urine Ketones (NEGATIVE) mg/dL Urine Occult Blood (NEGATIVE) Urine Nitrite (NEGATIVE) Urine Bilirubin (NEGATIVE) Urine Urobilinogen (<2.0) EU/dL Ur Leukocyte Esterase (NEGATIVE) Urine RBC (0-2/HPF) Urine WBC (0-5/HPF) Ur Epithelial Cells (NONE-FEW) Urine Bacteria (NEGATIVE) Urine Mucus (NONE-MOD) Ketones SMALL H (NEG) SARS-CoV-2 RNA (RICHIE) (NEGATIVE) 10/15/20 10/15/20 10/15/20 Range/Units 16:20 16:20 16:20 WBC 8.43 (4.0-11.0) K/uL RBC 4.19 L (4.50-5.90) M/uL Hgb 11.1 L (13.0-17.0) g/dL Hct 33.6 L (38.0-50.0) % MCV 80.2 (80.0-98.0) fL MCH 26.5 L (27.0-32.0) pg MCHC 33.0 (31.0-37.0) g/dL RDW Std Deviation 41.6 (28.0-62.0) fl RDW Coeff of Erika 15 (11.0-15.0) % Plt Count 280 (150-400) K/uL MPV 9.70 (7.40-12.00) fL Neut % (Auto) 83.1 H (48.0-80.0) % Lymph % (Auto) 8.8 L (16.0-40.0) % [place] % (Auto) 8.1 (0.0-15.0) % Eos % (Auto) 0.0 (0.0-7.0) % Baso % (Auto) 0.0 (0.0-1.5) % Neut # (Auto) 7.0 H (1.4-5.7) K/uL Lymph # (Auto) 0.7 (0.6-2.4) K/uL [place] # (Auto) 0.7 (0.0-0.8) K/uL Eos # (Auto) 0.0 (0.0-0.7) K/uL Baso # (Auto) 0.0 (0.0-0.1) K/uL Nucleated RBC % 0.0 /100WBC Nucleated RBCs # 0 K/uL ABG pH (7.35-7.45) ABG pCO2 (35-45) mmHG ABG pO2 (80-105) mmHG ABG HCO3 (22-26) mEq/L ABG Total CO2 (23-27) mmol/L ABG Base Excess (-2.0-3.0) Sodium 144 (136-148) mmol/L Potassium 3.9 (3.5-5.1) mmol/L Chloride 105 (98-107) mmol/L Carbon Dioxide 24.7 (21.0-32.0) mmol/L BUN 30 H (7.0-18.0) mg/dL Creatinine 1.2 (0.8-1.3) mg/dL Est Cr Clr Drug Dosing 73.71 mL/min Estimated GFR (MDRD) > 60.0 ml/min Glucose 326 H (74-106) mg/dL POC Glucose (70-99) mg/dL Lactic Acid (0.4-2.0) mmol/L Calcium 9.4 (8.5-10.1) mg/dL Total Bilirubin 0.4 (0.2-1.0) mg/dL AST 14 L (15-37) IU/L ALT 23 (14-63) IU/L Alkaline Phosphatase 89 (46-116) U/L Total Protein 7.8 (6.4-8.2) g/dL Albumin 3.4 (3.4-5.0) g/dL Globulin 4.4 H (2.6-4.0) g/dL Albumin/Globulin Ratio 0.8 L (0.9-1.6) Lipase 21 L (73-393) U/L Urine Color Urine Appearance Urine pH (5.0-8.0) Ur Specific Cullen (1.001-1.035) Urine Protein (NEGATIVE) mg/dL Urine Glucose (UA) (NEGATIVE) mg/dL Urine Ketones (NEGATIVE) mg/dL Urine Occult Blood (NEGATIVE) Urine Nitrite (NEGATIVE) Urine Bilirubin (NEGATIVE) Urine Urobilinogen (<2.0) EU/dL Ur Leukocyte Esterase (NEGATIVE) Urine RBC (0-2/HPF) Urine WBC (0-5/HPF) Ur Epithelial Cells (NONE-FEW) Urine Bacteria (NEGATIVE) Urine Mucus (NONE-MOD) Ketones (NEG) SARS-CoV-2 RNA (RICHIE) NEGATIVE (NEGATIVE) 10/15/20 10/15/20 10/15/20 Range/Units 16:49 17:11 17:53 WBC (4.0-11.0) K/uL RBC (4.50-5.90) M/uL Hgb (13.0-17.0) g/dL Hct (38.0-50.0) % MCV (80.0-98.0) fL MCH (27.0-32.0) pg MCHC (31.0-37.0) g/dL RDW Std Deviation (28.0-62.0) fl RDW Coeff of Erika (11.0-15.0) % Plt Count (150-400) K/uL MPV (7.40-12.00) fL Neut % (Auto) (48.0-80.0) % Lymph % (Auto) (16.0-40.0) % [place] % (Auto) (0.0-15.0) % Eos % (Auto) (0.0-7.0) % Baso % (Auto) (0.0-1.5) % Neut # (Auto) (1.4-5.7) K/uL Lymph # (Auto) (0.6-2.4) K/uL [place] # (Auto) (0.0-0.8) K/uL Eos # (Auto) (0.0-0.7) K/uL Baso # (Auto) (0.0-0.1) K/uL Nucleated RBC % /100WBC Nucleated RBCs # K/uL ABG pH (7.35-7.45) ABG pCO2 (35-45) mmHG ABG pO2 (80-105) mmHG ABG HCO3 (22-26) mEq/L ABG Total CO2 (23-27) mmol/L ABG Base Excess (-2.0-3.0) Sodium (136-148) mmol/L Potassium (3.5-5.1) mmol/L Chloride (98-107) mmol/L Carbon Dioxide (21.0-32.0) mmol/L BUN (7.0-18.0) mg/dL Creatinine (0.8-1.3) mg/dL Est Cr Clr Drug Dosing mL/min Estimated GFR (MDRD) ml/min Glucose (74-106) mg/dL POC Glucose 272 H (70-99) mg/dL Lactic Acid 1.1 (0.4-2.0) mmol/L Calcium (8.5-10.1) mg/dL Total Bilirubin (0.2-1.0) mg/dL AST (15-37) IU/L ALT (14-63) IU/L Alkaline Phosphatase (46-116) U/L Total Protein (6.4-8.2) g/dL Albumin (3.4-5.0) g/dL Globulin (2.6-4.0) g/dL Albumin/Globulin Ratio (0.9-1.6) Lipase (73-393) U/L Urine Color YELLOW Urine Appearance CLOUDY Urine pH 6.0 (5.0-8.0) Ur Specific Cullen >= 1.030 (1.001-1.035) Urine Protein 100 H (NEGATIVE) mg/dL Urine Glucose (UA) >=1000 (NEGATIVE) mg/dL Urine Ketones 15 H (NEGATIVE) mg/dL Urine Occult Blood LARGE H (NEGATIVE) Urine Nitrite NEGATIVE (NEGATIVE) Urine Bilirubin NEGATIVE (NEGATIVE) Urine Urobilinogen 0.2 (<2.0) EU/dL Ur Leukocyte Esterase TRACE H (NEGATIVE) Urine RBC 10-15 (0-2/HPF) Urine WBC 40-50 (0-5/HPF) Ur Epithelial Cells FEW (NONE-FEW) Urine Bacteria 4+ H (NEGATIVE) Urine Mucus LIGHT (NONE-MOD) Ketones (NEG) SARS-CoV-2 RNA (RICHIE) (NEGATIVE) 10/15/20 Range/Units 23:39 WBC (4.0-11.0) K/uL RBC (4.50-5.90) M/uL Hgb (13.0-17.0) g/dL Hct (38.0-50.0) % MCV (80.0-98.0) fL MCH (27.0-32.0) pg MCHC (31.0-37.0) g/dL RDW Std Deviation (28.0-62.0) fl RDW Coeff of Erika (11.0-15.0) % Plt Count (150-400) K/uL MPV (7.40-12.00) fL Neut % (Auto) (48.0-80.0) % Lymph % (Auto) (16.0-40.0) % [place] % (Auto) (0.0-15.0) % Eos % (Auto) (0.0-7.0) % Baso % (Auto) (0.0-1.5) % Neut # (Auto) (1.4-5.7) K/uL Lymph # (Auto) (0.6-2.4) K/uL [place] # (Auto) (0.0-0.8) K/uL Eos # (Auto) (0.0-0.7) K/uL Baso # (Auto) (0.0-0.1) K/uL Nucleated RBC % /100WBC Nucleated RBCs # K/uL ABG pH (7.35-7.45) ABG pCO2 (35-45) mmHG ABG pO2 (80-105) mmHG ABG HCO3 (22-26) mEq/L ABG Total CO2 (23-27) mmol/L ABG Base Excess (-2.0-3.0) Sodium (136-148) mmol/L Potassium (3.5-5.1) mmol/L Chloride (98-107) mmol/L Carbon Dioxide (21.0-32.0) mmol/L BUN (7.0-18.0) mg/dL Creatinine (0.8-1.3) mg/dL Est Cr Clr Drug Dosing mL/min Estimated GFR (MDRD) ml/min Glucose (74-106) mg/dL POC Glucose 212 H (70-99) mg/dL Lactic Acid (0.4-2.0) mmol/L Calcium (8.5-10.1) mg/dL Total Bilirubin (0.2-1.0) mg/dL AST (15-37) IU/L ALT (14-63) IU/L Alkaline Phosphatase (46-116) U/L Total Protein (6.4-8.2) g/dL Albumin (3.4-5.0) g/dL Globulin (2.6-4.0) g/dL Albumin/Globulin Ratio (0.9-1.6) Lipase (73-393) U/L Urine Color Urine Appearance Urine pH (5.0-8.0) Ur Specific Cullen (1.001-1.035) Urine Protein (NEGATIVE) mg/dL Urine Glucose (UA) (NEGATIVE) mg/dL Urine Ketones (NEGATIVE) mg/dL Urine Occult Blood (NEGATIVE) Urine Nitrite (NEGATIVE) Urine Bilirubin (NEGATIVE) Urine Urobilinogen (<2.0) EU/dL Ur Leukocyte Esterase (NEGATIVE) Urine RBC (0-2/HPF) Urine WBC (0-5/HPF) Ur Epithelial Cells (NONE-FEW) Urine Bacteria (NEGATIVE) Urine Mucus (NONE-MOD) Ketones (NEG) SARS-CoV-2 RNA (RICHIE) (NEGATIVE) Meds: Medications Discontinued Medications Generic Name Dose Route Start Last Admin Trade Name Freq PRN Reason Stop Dose Admin Bisacodyl 10 mg 10/20/20 09:00 10/20/20 10:51 Bisacodyl 10 Mg Supp RECTAL 10/20/20 09:01 10 mg ONETIME ONE Administration Bisacodyl 5 mg 10/20/20 09:45 10/20/20 10:51 Bisacodyl 5 Mg Tab PO 10/20/20 09:46 5 mg ONETIME ONE Administration Dextrose/Water 50 ml 10/15/20 21:55 50% Dextrose In Water 50 Ml Syringe IVPUSH ASDIRECTED PRN Hypoglycemia Dextrose/Water 25 ml 10/16/20 16:42 10/16/20 17:12 50% Dextrose In Water 50 Ml Syringe IVPUSH 10/16/20 16:43 25 ml ONETIME ONE Administration Diphenhydramine HCl 25 mg 10/15/20 16:24 10/15/20 16:32 Diphenhydramine 50 Mg/Ml Sdv IVPUSH 10/15/20 16:25 25 mg ONETIME ONE Administration Diphenhydramine HCl 25 mg 10/15/20 19:35 10/15/20 19:43 Diphenhydramine 50 Mg/Ml Sdv IVPUSH 10/15/20 19:36 25 mg ONETIME ONE Administration Diphenhydramine HCl 25 mg 10/15/20 21:56 10/19/20 18:44 Diphenhydramine 25 Mg Cap PO 25 mg Q6H PRN Administration Itching Diphenhydramine HCl 25 mg 10/18/20 11:26 10/18/20 12:15 Diphenhydramine 50 Mg/Ml Sdv IVPUSH 10/18/20 11:27 25 mg ONETIME ONE Administration Diphenhydramine HCl 12.5 mg 10/18/20 22:27 10/18/20 23:10 Diphenhydramine 50 Mg/Ml Sdv IVPUSH 10/18/20 22:28 12.5 mg ONETIME ONE Administration Glucagon 1 mg 10/15/20 21:55 Glucagon,Human Recombinant 1 Mg Vial IM ASDIRECTED PRN Hypoglycemia Sodium Chloride 1,000 mls @ 999 mls/hr 10/15/20 15:57 10/15/20 16:19 Normal Saline IV 10/15/20 16:57 999 mls/hr BOLUS ONE Administration Pantoprazole Sodium 80 mg/ 20 mls @ 420 mls/hr 10/15/20 16:02 10/15/20 16:19 Sodium Chloride IVPUSH 10/15/20 16:04 420 mls/hr ONETIME ONE Administration Ceftriaxone Sodium/Dextrose 1 50 mls @ 100 mls/hr 10/15/20 18:07 10/16/20 18:20 gm/ Premix IV 10/15/20 18:36 100 mls/hr ONETIME ONE Administration Sodium Chloride 1,000 mls @ 125 mls/hr 10/15/20 22:00 10/16/20 08:01 Normal Saline IV 125 mls/hr ASDIRECTED AUGUSTINE Administration Ceftriaxone Sodium/Dextrose 1 50 mls @ 100 mls/hr 10/16/20 18:30 gm/ Premix IV Q24H AUGUSTINE Meropenem/Sodium Chloride 50 mls @ 100 mls/hr 10/15/20 23:45 10/16/20 01:32 Meropenem In Ns 1 Gm/50 Ml IV 10/16/20 00:06 Not Given Q8H AUGUSTINE Ceftriaxone Sodium 1 gm/ 50 mls @ 100 mls/hr 10/16/20 18:00 10/16/20 19:01 Sodium Chloride IV Not Given Q24H AUG[facility]INE Dextrose/Sodium Chloride 1,000 mls @ 125 mls/hr 10/16/20 16:45 10/20/20 04:40 Dextrose 5%-1/2 Ns IV 125 mls/hr ASDIRECTED AUGUSTINE Administration Ceftriaxone Sodium/Dextrose Confirm 10/16/20 18:11 10/16/20 18:10 Rocephin In Dextrose,Iso-Osm 1 Gm/50 Ml Administered 10/16/20 18:12 100 mls/hr Dose Administration 50 mls @ as directed .ROUTE .STK-MED ONE Ceftriaxone Sodium/Dextrose 1 50 mls @ 100 mls/hr 10/17/20 19:00 10/20/20 18:20 gm/ Premix IV 100 mls/hr Q24H AUGUSTINE Administration Erythromycin Lactobionate 300 100 mls @ 100 mls/hr 10/17/20 12:00 10/17/20 19:39 mg/ Sodium Chloride IV Not Given Q8H AUGUSTINE Erythromycin Lactobionate 300 100 mls @ 100 mls/hr 10/17/20 12:45 10/21/20 04:14 mg/ Sodium Chloride IV 100 mls/hr Q8H AUGUSTINE Administration Potassium Chloride/Sodium Chloride 1,000 mls @ 150 mls/hr 10/19/20 08:00 10/19/20 09:02 Normal Saline With 40 Meq Kcl IV 10/19/20 14:39 150 mls/hr ONETIME ONE Administration Magnesium Sulfate 2 gm/ Premix 50 mls @ 25 mls/hr 10/19/20 08:00 10/19/20 09:02 IV 10/19/20 09:59 25 mls/hr ONETIME ONE Administration Erythromycin Lactobionate 300 100 mls @ 100 mls/hr 10/21/20 12:45 10/21/20 11:57 mg/ Sodium Chloride IV Not Given Q8H AUGUSTINE Potassium Chloride 40 meq/ 520 mls @ 130 mls/hr 10/21/20 09:30 10/21/20 09:57 Sodium Chloride IV 10/21/20 13:29 130 mls/hr ONETIME ONE Administration Insulin Aspart 0 unit 10/16/20 07:30 10/21/20 11:53 Insulin Aspart 100 Units/Ml 3 Ml Pen SUBCUT 3 units TIDAC AUGUSTINE Administration Protocol Insulin Aspart 5 unit 10/16/20 07:30 10/16/20 11:32 Insulin Aspart 100 Units/Ml 3 Ml Pen SUBCUT Not Given [facility] Insulin Aspart 5 unit 10/20/20 07:55 10/21/20 11:54 Insulin Aspart 100 Units/Ml 3 Ml Pen SUBCUT 5 units T[facility]AC [facility] Administration Insulin Glargine 15 units 10/15/20 23:45 10/16/20 09:33 Insulin Glargine,Human Rec. Analog 100 Units/Ml 3 Ml Pen SUBCUT 15 units BID AUGUSTINE Administration Insulin Glargine 6 units 10/16/20 21:00 10/20/20 08:29 Insulin Glargine,Human Rec. Analog 100 Units/Ml 3 Ml Pen SUBCUT 6 units BID AUGUSTINE Administration Insulin Glargine 12 units 10/20/20 21:00 10/21/20 08:02 Insulin Glargine,Human Rec. Analog 100 Units/Ml 3 Ml Pen SUBCUT 12 units BID AUGUSTINE Administration Insulin Human Regular 4 unit 10/15/20 17:01 10/15/20 17:57 Insulin Regular, Human 100 Units/Ml 10 Ml Vial SUBCUT 10/15/20 17:02 4 units ASDIRECTED ONE Administration Protocol Iopamidol 65 ml 10/15/20 18:43 10/15/20 18:44 Iopamidol 755 Mg/Ml 500 Ml Multipack Bottle IVPUSH 10/15/20 18:44 65 ml ONETIME STA Administration Metoclopramide HCl 10 mg 10/15/20 19:34 10/15/20 19:43 Metoclopramide 10 Mg/2 Ml Sdv IVPUSH 10/15/20 19:35 10 mg ONETIME ONE Administration Metoclopramide HCl 10 mg 10/16/20 10:29 10/17/20 06:14 Metoclopramide 10 Mg/2 Ml Sdv IVPUSH 10 mg Q6H PRN Administration Nausea Morphine Sulfate 4 mg 10/15/20 16:03 10/15/20 16:24 Morphine 4 Mg/Ml Syringe IVPUSH 10/15/20 16:04 4 mg ONETIME ONE Administration Ondansetron HCl 4 mg 10/15/20 15:58 10/15/20 16:19 Ondansetron 4 Mg/2 Ml Sdv IVPUSH 10/15/20 15:59 4 mg ONETIME ONE Administration Ondansetron HCl 4 mg 10/15/20 23:39 10/20/20 14:24 Ondansetron 4 Mg/2 Ml Sdv IVPUSH 4 mg Q4H PRN Administration Nausea Patient's Own 3 each 10/15/20 22:00 10/15/20 22:57 MedicationSuboxone .XX 0.5 each 8/2 Mg Tab DAILY AUGUSTINE Administration Patient Own Medication 3 each 10/16/20 06:00 Patient's Own Medication 1 Each .XX TID AUGUSTINE Patient's Own 0.5 - 1 each 10/16/20 06:00 10/21/20 14:27 MedicationSuboxone .XX Not Given 8/2 Mg Tab TID AUGUSTINE Promethazine HCl 25 mg 10/15/20 23:39 Promethazine 25 Mg/Ml Sdv IM Q6H PRN Nausea Departure - Departure Time of Disposition: 11:32 Disposition: Refer to Observation Clinical Impression: Acute pyelonephritis, Hyperglycemia - Discharge Information *PRESCRIPTION DRUG MONITORING PROGRAM REVIEWED*: Not Applicable *COPY OF PRESCRIPTION DRUG MONITORING REPORT IN PATIENT HANY: Not Applicable Sepsis Event Note (ED) - Evaluation Sepsis Screening Result: No Definite Risk
== END 2020-10-21 14:30 | disposition home or self-care (01) | DRG 74 ==
LOC: MW.ED 14:19 → MW.MS 19:18 → OBSVTOIN 10-16 00:07 → MW.MS 10-17 12:54
PROVIDERS: ADMIT Internal Medicine; ATTEND Internal Medicine
DX: E10.43 Type 1 diabetes mellitus with diabetic autonomic (poly)neuropathy (principal); F11.23 Opioid dependence with withdrawal; N10 Acute pyelonephritis; E10.65 Type 1 diabetes mellitus with hyperglycemia; H54.7 Unspecified visual loss; K21.9 Gastro-esophageal reflux disease without esophagitis; K58.9 Irritable bowel syndrome, unspecified; Z87.19 Personal history of other diseases of the digestive system; Z87.440 Personal history of urinary (tract) infections; E86.0 Dehydration; E10.42 Type 1 diabetes mellitus with diabetic polyneuropathy; B96.20 Unspecified Escherichia coli [E. coli] as the cause of diseases classified elsewhere; R33.9 Retention of urine, unspecified; K31.84 Gastroparesis; Z88.0 Allergy status to penicillin; N31.9 Neuromuscular dysfunction of bladder, unspecified; Z79.52 Long term (current) use of systemic steroids; F32.9 Major depressive disorder, single episode, unspecified; Z87.891 Personal history of nicotine dependence; Z87.448 Personal history of other diseases of urinary system; Z91.19 Patient's noncompliance with other medical treatment and regimen; F41.9 Anxiety disorder, unspecified; Z91.14 Patient's other noncompliance with medication regimen; Z88.1 Allergy status to other antibiotic agents; Z91.013 Allergy to seafood; Z79.4 Long term (current) use of insulin; Z79.899 Other long term (current) drug therapy; Z20.822 Contact with and (suspected) exposure to COVID-19
CPT/HCPCS: 36415; 36600; 74177; 80053; 81001; 82009; 82803; 82947 ×3; 83605; 83690; 85025; 87040 ×2; 87086; 87088; 87186; 87635; C9113; J0696; J1200 ×2; J2270; J2405; J2765; J7030 ×2; Q9967; 36410; 51701; 51798; 80048; 83036; 83735; 84100; 84132; 93005; A9270-GY; J1364; J1815-GY; J3475; J3480; J7040; J7042; U0002

== ENCOUNTER 2020-11-23 15:24 | Emergency (ER) | payer MEDICAID ==
[2020-11-23 15:43] VITALS: BP 130/76
--- NOTE | 2020-11-23 16:57 | EDM.PDOC ---
ED HPI GENERAL MEDICAL PROBLEM - General Chief Complaint: Genitourinary Problem Stated Complaint: POSSIBLE UTI Time Seen by Provider: 11/23/20 15:56 - History of Present Illness INITIAL COMMENTS - FREE TEXT/NARRATIVE: CHIEF COMPLAINT(S): Pain with urination HISTORY OF PRESENT ILLNESS: This is a 25-year-old man with a past medical history of emphysematous cystitis and pyelonephritis, diabetes mellitus who presents to the emergency department with a chief complaint of pain with urination. The patient states that for the last couple of days he is experiencing pain when he urinates. He states that he is having some air coming out of his urethra at the end of his urination. He states that he does self cath at times with the last thing Friday or Friday. He denies any fevers, chills, back pain, nausea, vomiting, abdominal pain. He states that he just experiencing the pain with urination. He states that he is mainly concerned because of his recent admission for this and he does not want it to get that ba d. He denies any other symptoms. He currently rates his pain as 0 out of 10. REVIEW OF SYSTEMS: Constitutional: Denies fever, chills. Eyes: Denies eye pain Ears, Nose, Mouth, & Throat: Denies earache Cardiovascular: Denies chest pain Respiratory: Denies shortness of breath Gastrointestinal: Denies Nausea, vomiting, diarrhea, hematochezia. Genitourinary: Positive for pain with urination and post void air out of the urethra Skin:Denies a rash MSK: Denies joint pain Neurological: Denies blurred vision Psychiatric: Denies depression PAST MEDICAL HISTORY: As per history of present illness and as reviewed below otherwise noncontributory. SURGICAL HISTORY: As per history of present illness and as reviewed below otherwise noncontributory. SOCIAL HISTORY: As per history of present illness and as reviewed below otherwise noncontributory. FAMILY HISTORY: As per history of present illness and as reviewed below otherwise noncontributory. EXAMINATION OF ORGAN SYSTEMS/BODY AREAS: Constitutional: Blood pressure is 130/76, heart rate 94, respiratory rate 16 with an oxygen saturation of 99% on room air. Temperature 36.8 General: Well-appearing man who is in no acute distress psychiatric: Appropriate mood and affect. Eyes: No scleral icterus or conjunctival erythema ENMT: Moist mucous membranes. No pharyngeal erythema Cardiovascular: Regular, rate, and rhythm. No gallops, murmurs, or rubs. Bilateral upper extremity pulses symmetric and intact. No peripheral edema. No JVD. Respiratory: Lungs clear to auscultation bilaterally. No wheezes, rales, or rhonchi. Gastrointestinal: Soft, non-tender, non-distended. Normoactive bowel sounds Genitourinary: No suprapubic tenderness no CVA tenderness Musculoskeletal: Normal range of motion. Skin: No lesions or abrasions. Neurological: Alert, GCS 15 MEDICAL DECISION MAKING AND COURSE IN THE ED WITH INTERPRETATION/REVIEW OF DIAGNOSTIC STUDIES: This is a 22-year-old man with a past medical history of emphysematous cystitis and pyelonephritis who presents to the emergency department with pain with urination who has stable vital signs. At this time we will obtain a urinalysis and reevaluate. Urinalysis does reveal moderate bursitis trace with 4+ bacteria in urine WBC count of 40-50. Interpretation: Positive After urinalysis I did discuss the results with the patient. At this time [facility] with [facility] for his urinary tract infection. He is to complete the entire course. Antibiotic choice picked based on prior cultures. He was given strict return precautions. He was amenable discharge and had no further questions DISPOSITION: The patient was discharged home in stable condition. The patient will follow up with primary care physician in 3 to 5 days CONDITION: Good PROCEDURES: None FINAL IMPRESSION(S)/DIAGNOSES: 1. Acute cystitis Moisés Olson M.D. - Related Data Allergies Allergy/AdvReac Type Severity Reaction Status Date / Time amoxicillin Allergy Mild Nausea and Verified 10/15/20 20:55 Vomiting seafood Allergy Severe Vomiting Uncoded 10/15/20 20:55 Home Meds: Home Meds Insulin Aspart [NovoLOG] 10 - 15 unit SUBCUT TIDAC 08/22/20 [History] Insulin Glarg,Human.Rec.Analog [Lantus Solostar] 15 units SUBCUT BID 08/22/20 [History] Buprenorphine HCl/Naloxone HCl [Buprenorphine-Nalox 8-2 mg Tab] 3 tab SL DAILY 09/15/20 [History] Sucralfate [Carafate] 1 gm PO QIDACANDBED #120 tab 09/19/20 [Rx] Ondansetron [Zofran ODT] 4 mg PO Q6H PRN #12 tab.dis 10/14/20 [Rx] Cefdinir [Omnicef] 300 mg PO BID #20 cap 10/20/20 [Rx] Erythromycin Ethylsuccinate 200 mg PO TIDMEALS #20 susp.recon 10/20/20 [Rx] Past Medical History - Past Health History Medical/Surgical History: Denies Medical/Surgical History HEENT History: Reports: Impaired Vision Other HEENT History: ear ache, broken and missing teeth, impaired vision in left eye Cardiovascular History: Reports: None Respiratory History: Reports: None Gastrointestinal History: Reports: GERD, GI Bleed, Irritable Bowel Syndrome Other Gastrointestinal History: gastroparesis, ulcer Genitourinary History: Reports: Hydronephrosis, Neurogenic Bladder, Pyelonephritis, Renal Calculus, Retention, Urinary, UTI, Recurrent, Other (See Below) Other Genitourinary History: hydronephrosis, neurogenic bladder Musculoskeletal History: Reports: Fracture Other Musculoskeletal History: Elbow long time ago Neurological History: Reports: None Psychiatric History: Reports: Anxiety, Depression Endocrine/Metabolic History: Reports: Diabetes, Type I Other Endocrine/Metabolic History: non-compliant to DM medications Insulin Pump Model and Layout Man: None Hematologic History: Reports: None Immunologic History: Reports: None Oncologic (Cancer) History: Reports: None Dermatologic History: Reports: Other (See Below) Other Dermatologic History: dry itchy skin - Infectious Disease History Infectious Disease History: Reports: None - Past Surgical History Head Surgeries/Procedures: Reports: None HEENT Surgical History: Reports: None GI Surgical History: Reports: None Male Surgical History: Reports: None Endocrine Surgical History: Reports: None Musculoskeletal Surgical History: Reports: None Dermatological Surgical History: Reports: None Social & Family History - Family History Family Medical History: No Pertinent Family History OBGYN: Reports: Endocrine/Metabolic: Reports: Diabetes, Type I, Diabetes, type II - Tobacco Use Tobacco Use Status *Q: Current Every Day Tobacco User Years of Tobacco use: 1 Packs/Tins Daily: 0.5 - Caffeine Use Caffeine Use: Reports: Coffee, Energy Drinks, Soda, Tea Caffeine Use Comment: 2 per day - Recreational Drug Use Recreational Drug Use: No - Living Situation & Occupation Living situation: Reports: Single, with Family Occupation: Unemployed ED ROS GENERAL - Review of Systems Review Of Systems: See Below ED EXAM, GENERAL - Physical Exam Exam: See Below Course - Vital Signs Last Recorded V/S: Last Vital Signs Temp 36.6 C 11/23/20 17:21 Pulse 90 11/23/20 17:21 Resp 16 11/23/20 17:21 BP 130/76 11/23/20 15:39 Pulse Ox 99 11/23/20 17:21 - Orders/Labs/Meds Labs: Laboratory Tests 11/23/20 Range/Units 16:05 Urine Color YELLOW Urine Appearance CLOUDY Urine pH 6.0 (5.0-8.0) Ur Specific Otis 1.025 (1.001-1.035) Urine Protein 100 H (NEGATIVE) mg/dL Urine Glucose (UA) 500 H (NEGATIVE) mg/dL Urine Ketones NEGATIVE (NEGATIVE) mg/dL Urine Occult Blood TRACE-INTACT H (NEGATIVE) Urine Nitrite NEGATIVE (NEGATIVE) Urine Bilirubin NEGATIVE (NEGATIVE) Urine Urobilinogen 0.2 (<2.0) EU/dL Ur Leukocyte Esterase MODERATE H (NEGATIVE) Urine RBC 1-3 (0-2/HPF) Urine WBC 40-50 (0-5/HPF) Ur Epithelial Cells FEW (NONE-FEW) Urine Bacteria 4+ H (NEGATIVE) Urine Mucus LIGHT (NONE-MOD) Departure - Departure Time of Disposition: 16:56 Disposition: Home, Self-Care 01 Condition: Fair Clinical Impression: UTI, Urinary tract infectious disease - Discharge Information *PRESCRIPTION DRUG MONITORING PROGRAM REVIEWED*: No *COPY OF PRESCRIPTION DRUG MONITORING REPORT IN PATIENT HANY: No Instructions: Urinary Tract Infection, Adult Referrals: PCP,Not In Area [Primary Care Provider] - Forms: ED Department Discharge Additional Instructions: You were evaluated today on an emergent basis. At this time your urine did show evidence of an infection. We did provide you with a prescription for Keflex. I recommend you take this medication twice a day until all of the medication is gone. If you have any worsening symptoms such as fever, back pain, vomiting I would like you to return to the emergency department. Otherwise follow-up with your primary care physician in 3 to 5 days. [facility] - Primary Care [address] [place] [id number] [place] [address] The patient is informed of any results of their evaluation and diagnostic workup and all questions are answered. They are given discharge instructions and return precautions. The patient is stable for discharge. The patient states they understand and agree with the plan and that they will return if their symptoms get worse or if they have any new concerns. The following information is given to patients seen in the emergency department who are being discharged to home. This information is to outline your options for follow-up care. We provide all patients seen in our emergency department with a follow-up referral. The need for follow-up, as well as the timing and circumstances, are variable depending upon the specifics of your emergency department visit. If you don't have a primary care physician on staff, we will provide you with a referral. We always advise you to contact your personal physician following an emergency department visit to inform them of the circumstance of the visit and for follow-up with them and/or the need for any referrals to a consulting specialist. The emergency department will also refer you to a specialist when appropriate. This referral assures that you have the opportunity for follow-up care with a specialist. All of these measure are taken in an effort to provide you with optimal care, which includes your follow-up. Under all circumstances we always encourage you to contact your private physician who remains a resource for coordinating your care. When calling for follow-up care, please make the office aware that this follow-up is from your recent emergency room visit. If for any reason you are refused follow-up, please contact the [facility] Emergency Department at and asked to speak to the emergency department charge nurse. Sepsis Event Note (ED) - Evaluation Sepsis Screening Result: No Definite Risk
[2020-11-23 17:22] VITALS: PULSE 90
== END 2020-11-23 17:23 | disposition home or self-care (01) ==
LOC: MW.ED 15:24
DX: N30.00 Acute cystitis without hematuria (principal); E10.9 Type 1 diabetes mellitus without complications; Z72.0 Tobacco use; Z88.0 Allergy status to penicillin; Z91.013 Allergy to seafood; Z79.899 Other long term (current) drug therapy
CPT/HCPCS: 81001; 87086; 87088; 87186; 99284-25

== ENCOUNTER 2021-01-24 19:40 | Emergency (ER) | payer MEDICAID, OTHER ==
[2021-01-24] MEDS ORDERED: Ondansetron 4 MG/2 ML SDV IVPUSH ONE (20:41)
[2021-01-24] MEDS ORDERED: diphenhydrAMINE 50 MG/ML SDV IVPUSH ONE (20:41)
[2021-01-24] MEDS ORDERED: Sodium Chloride 0.9% 2.5 ML Syringe FLUSH PRN (20:41)
[2021-01-24] MEDS ORDERED: Sodium Chloride 0.9% 1,000 ML IV ONE (20:41)
[2021-01-24] MEDS ORDERED: Sodium Chloride 0.9% 10 ML Syringe FLUSH PRN (20:41)
--- NOTE | 2021-01-24 20:44 | EDM.PDOC ---
ED HPI GENERAL MEDICAL PROBLEM - General Chief Complaint: Gastrointestinal Problem Stated Complaint: CANT KEEP ANYTHING DOWN Time Seen by Provider: 01/24/21 20:05 - History of Present Illness INITIAL COMMENTS - FREE TEXT/NARRATIVE: History of present illness: [] This patient feels nausea vomiting and is vomiting everything. He feels like his throat is scratchy and itchy. He has some pruritus all over. It is mild and constant since yesterday when he thinks he ate something he is allergic to. He has not had any Benadryl because he cannot keep anything down. Patient is well-known to us for chronic medical illness. Review of systems: As per history of present illness and below otherwise all systems reviewed and negative. Past medical history: As per history of present illness and as reviewed below otherwise nonco ntributory. Surgical history: As per history of present illness and as reviewed below otherwise noncontributory. Social history: No reported history of drug or alcohol abuse. Family history: As per history of present illness and as reviewed below otherwise noncontributory. Physical exam: Constitutional - well developed, well-nourished and in no acute distress HEENT - normocephalic, no evidence of trauma - external nose and mouth normal - no mass in neck and no JVD - mucosae moist EYES - full EOM, PERRL, no icterus - no evidence of inflammation, injection, or drainage Respiratory - no respiratory distress, equal bilateral expansion, lungs clear to auscultation and no abnormal lung sounds Cardiovascular - Regular Rhythm with S1 and S2 appreciated and no murmur, gallop or rub. GI - abdomen soft without distension or organomegaly - normal bowel sounds - no guard or rebound Musculoskeletal no gross deformity of long bones or joints - no tenderness, swelling or edema Neurologic - Alert and oriented times four - CN II-XII grossly intact - motor sensory and coordination symmetrically normal Psychiatric - appropriate mood and affect with normal thought content Hematologic - No petechiae or purpura - mucosa appropriate color and sclera not pale - normal nail bed color and refill Integument - no rash or evidence of trauma - normal turgor Diagnostics: [] Therapeutics: [] Impression: [] Plan: [] Definitive disposition and diagnosis as appropriate pending reevaluation and review of above. - Related Data Allergies Allergy/AdvReac Type Severity Reaction Status Date / Time amoxicillin Allergy Mild Nausea and Verified 01/24/21 19:56 Vomiting seafood Allergy Severe Vomiting Uncoded 01/24/21 19:56 Home Meds: Home Meds Insulin Aspart [NovoLOG] 10 - 15 unit SUBCUT TIDAC 08/22/20 [History] Insulin Glarg,Human.Rec.Analog [Lantus Solostar] 15 units SUBCUT BID 08/22/20 [History] Buprenorphine HCl/Naloxone HCl [Buprenorphine-Nalox 8-2 mg Tab] 3 tab SL DAILY 09/15/20 [History] Sucralfate [Carafate] 1 gm PO QIDACANDBED #120 tab 09/19/20 [Rx] Ondansetron [Zofran ODT] 4 mg PO Q6H PRN #12 tab.dis 10/14/20 [Rx] Cefdinir [Omnicef] 300 mg PO BID #20 cap 10/20/20 [Rx] Erythromycin Ethylsuccinate 200 mg PO TIDMEALS #20 susp.recon 10/20/20 [Rx] Metoclopramide HCl [Reglan] 10 mg PO TID PRN #10 tablet 01/24/21 [Rx] Past Medical History - Past Health History Medical/Surgical History: Denies Medical/Surgical History HEENT History: Reports: Impaired Vision Other HEENT History: ear ache, broken and missing teeth, impaired vision in left eye Cardiovascular History: Reports: None Respiratory History: Reports: None Gastrointestinal History: Reports: GERD, GI Bleed, Irritable Bowel Syndrome Other Gastrointestinal History: gastroparesis, ulcer Genitourinary History: Reports: Hydronephrosis, Neurogenic Bladder, Pyelonephritis, Renal Calculus, Retention, Urinary, UTI, Recurrent, Other (See Below) Other Genitourinary History: hydronephrosis, neurogenic bladder Musculoskeletal History: Reports: Fracture Other Musculoskeletal History: Elbow long time ago Neurological History: Reports: None Psychiatric History: Reports: Anxiety, Depression Endocrine/Metabolic History: Reports: Diabetes, Type I Other Endocrine/Metabolic History: non-compliant to DM medications Insulin Pump Model and Pharmacist Apprentice: None Hematologic History: Reports: None Immunologic History: Reports: None Oncologic (Cancer) History: Reports: None Dermatologic History: Reports: Other (See Below) Other Dermatologic History: dry itchy skin - Infectious Disease History Infectious Disease History: Reports: None - Past Surgical History Head Surgeries/Procedures: Reports: None HEENT Surgical History: Reports: None GI Surgical History: Reports: None Male Surgical History: Reports: None Endocrine Surgical History: Reports: None Musculoskeletal Surgical History: Reports: None Dermatological Surgical History: Reports: None Social & Family History - Family History Family Medical History: No Pertinent Family History OBGYN: Reports: Endocrine/Metabolic: Reports: Diabetes, Type I, Diabetes, type II - Caffeine Use Caffeine Use: Reports: Coffee, Energy Drinks, Soda, Tea Caffeine Use Comment: 2 per day - Living Situation & Occupation Living situation: Reports: Single, with Family Occupation: Unemployed ED ROS GENERAL - Review of Systems Review Of Systems: Comprehensive ROS is negative, except as noted in HPI. ED EXAM, GENERAL - Physical Exam Exam: See Below Free Text/Narrative:: My physical exam is in the HPI Course - Vital Signs Last Recorded V/S: Last Vital Signs Temp 36.9 C 01/24/21 19:51 Pulse 102 H 01/24/21 22:36 Resp 17 01/24/21 22:36 BP 119/88 01/24/21 22:36 Pulse Ox 98 01/24/21 22:36 - Orders/Labs/Meds Orders: Active Orders 24 hr Category Date Time Status Sodium Chloride 0.9% [Saline Flush] Med 01/24/21 20:41 Active 10 ml FLUSH ASDIRECTED PRN Sodium Chloride 0.9% [Saline Flush] Med 01/24/21 20:41 Active 2.5 ml FLUSH ASDIRECTED PRN Saline Lock Insert [OM.PC] Stat Oth 01/24/21 20:42 Ordered Medication Orders Sodium Chloride (Sodium Chloride 0.9% 10 Ml Syringe) 10 ml FLUSH ASDIRECTED PRN PRN Reason: Keep Vein Open Last Admin: 01/24/21 22:02 Dose: 10 ml Documented by: MAGDALENA Sodium Chloride (Sodium Chloride 0.9% 2.5 Ml Syringe) 2.5 ml FLUSH ASDIRECTED PRN PRN Reason: Keep Vein Open Last Admin: 01/24/21 22:01 Dose: 2.5 ml Documented by: MAGDALENA Meds: Medications Generic Name Dose Route Start Last Admin Trade Name Freq PRN Reason Stop Dose Admin Sodium Chloride 10 ml 01/24/21 20:41 01/24/21 22:02 Sodium Chloride 0.9% 10 Ml Syringe FLUSH 10 ml ASDIRECTED PRN Administration Keep Vein Open Sodium Chloride 2.5 ml 01/24/21 20:41 01/24/21 22:01 Sodium Chloride 0.9% 2.5 Ml Syringe FLUSH 2.5 ml ASDIRECTED PRN Administration Keep Vein Open Discontinued Medications Generic Name Dose Route Start Last Admin Trade Name Freq PRN Reason Stop Dose Admin Diphenhydramine HCl 50 mg 01/24/21 20:41 01/24/21 22:03 Diphenhydramine 50 Mg/Ml Sdv IVPUSH 01/24/21 20:42 50 mg ONETIME ONE Administration Sodium Chloride 1,000 mls @ 999 mls/hr 01/24/21 20:41 01/24/21 22:01 Normal Saline IV 01/24/21 21:41 999 mls/hr .Bolus ONE Administration Metoclopramide HCl 10 mg 01/24/21 23:22 Metoclopramide 10 Mg Tab PO 01/24/21 23:23 ONETIME ONE Ondansetron HCl 4 mg 01/24/21 20:41 01/24/21 22:01 Ondansetron 4 Mg/2 Ml Sdv IVPUSH 01/24/21 20:42 4 mg ONETIME ONE Administration - Re-Assessments/Exams Free Text/Narrative Re-Assessment/Exam: 01/24/21 23:22 Patient tried a Sprite after his Zofran he vomited despite. Reglan ordered Departure - Departure Time of Disposition: 23:56 Disposition: Home, Self-Care 01 Condition: Good Clinical Impression: Allergic reaction Qualifiers: Encounter type: initial encounter Qualified Code(s): T78.40XA - Allergy, unspecified, initial encounter - Discharge Information Instructions: Allergies, Adult, [id number] Referrals: Lonny Lomas, [Primary Care Provider] - Forms: ED Department Discharge Additional Instructions: Take Benadryl 3 times a day. You can citrus picker the prescription at the [facility] pharmacy tomorrow. [facility] - Primary Care [address] [place] [id number] [address] The following information is given to patients seen in the emergency department who are being discharged to home. This information is to outline your options for follow-up care. We provide all patients seen in our emergency department with a follow-up referral. The need for follow-up, as well as the timing and circumstances, are variable depending upon the specifics of your emergency department visit. If you don't have a primary care physician on staff, we will provide you with a referral. We always advise you to contact your personal physician following an emergency department visit to inform them of the circumstance of the visit and for follow-up with them and/or the need for any referrals to a consulting specialist. The emergency department will also refer you to a specialist when appropriate. This referral assures that you have the opportunity for follow-up care with a specialist. All of these measure are taken in an effort to provide you with optimal care, which includes your follow-up. Under all circumstances we always encourage you to contact your private physician who remains a resource for coordinating your care. When calling for follow-up care, please make the office aware that this follow-up is from your recent emergency room visit. If for any reason you are refused follow-up, please contact the [facility] Emergency Department at and asked to speak to the emergency department charge nurse. Sepsis Event Note (ED) - Evaluation Sepsis Screening Result: No Definite Risk - Focused Exam Vital Signs: Vital Signs Temp Pulse Resp BP Pulse Ox 01/24/21 22:36 102 H 17 119/88 98 01/24/21 19:51 36.9 C 101 H 14 96/50 L 98 - My Orders Last 24 Hours: My Active Orders 01/24/21 20:41 Sodium Chloride 0.9% [Saline Flush] 10 ml FLUSH ASDIRECTED PRN Sodium Chloride 0.9% [Saline Flush] 2.5 ml FLUSH ASDIRECTED PRN 01/24/21 20:42 Saline Lock Insert [OM.PC] Stat - Assessment/Plan Last 24 Hours: My Active Orders 01/24/21 20:41 Sodium Chloride 0.9% [Saline Flush] 10 ml FLUSH ASDIRECTED PRN Sodium Chloride 0.9% [Saline Flush] 2.5 ml FLUSH ASDIRECTED PRN 01/24/21 20:42 Saline Lock Insert [OM.PC] Stat
[2021-01-24] MEDS ORDERED: Metoclopramide 10 MG Tab PO ONE (23:22)
[2021-01-24] MEDS ORDERED: Metoclopramide 10 MG/2 ML SDV IVPUSH ONE (23:58)
[2021-01-25] MEDS ORDERED: diphenhydrAMINE 50 MG/ML SDV IVPUSH ONE (00:06)
[2021-01-25] MEDS ORDERED: hydrOXYzine HCl 25 MG Tab PO ONE (00:07)
[2021-01-25] MEDS ORDERED: Sodium Chloride 0.9% 2.5 ML Syringe FLUSH PRN (00:58)
[2021-01-25] MEDS ORDERED: Sodium Chloride 0.9% 10 ML Syringe FLUSH PRN (00:58)
[2021-01-25] MEDS ORDERED: Prochlorperazine 10 MG in Sodium Chloride 0.9% 50 ML IV ONE (00:59)
[2021-01-25] MEDS ORDERED: Prochlorperazine 10 MG/2 ML SDV IVPUSH ONE (01:04)
[2021-01-25 01:10] VITALS: BP 132/87; PULSE 101
[2021-01-25 01:44] LABS: BLOOD UREA NITROGEN,BUN 34 mg/dL (7.0-18.0); CARBON DIOXIDE,CO2 25.2 mmol/L (21.0-32.0); CHLORIDE,CL 107 mmol/L (98-107); GLUCOSE RANDOM 324 mg/dL (74-106); LIPASE 39 U/L (73-393); POTASSIUM,K 4.5 mmol/L (3.5-5.1); SODIUM,NA 144 mmol/L (136-148)
[2021-01-25] MEDS ORDERED: Insulin Regular, Human 100 Units/ML 10 ML Vial IVPUSH ONE (02:20)
[2021-01-25] MEDS ORDERED: Pantoprazole 40 MG/10 ML Syringe IVPUSH ONE (02:55)
== END 2021-01-25 03:25 | disposition home or self-care (01) ==
LOC: MW.ED 19:40
DX: T78.1XXA Other adverse food reactions, not elsewhere classified, initial encounter (principal); E10.9 Type 1 diabetes mellitus without complications; Z88.0 Allergy status to penicillin; Z91.013 Allergy to seafood
CPT/HCPCS: 36415; 80053; 82947; 83690; 85025; 96374; 96375; 96376; 99284; A9270; C9113; J0780; J1200; J1815; J2405; J2765; J7030

== ENCOUNTER 2021-01-26 13:54 | Inpatient (IN) | payer MEDICAID ==
[2021-01-26] MEDS ORDERED: Sodium Chloride 0.9% 10 ML Syringe FLUSH PRN (14:06)
[2021-01-26] MEDS ORDERED: Sodium Chloride 0.9% 2.5 ML Syringe FLUSH PRN (14:06)
[2021-01-26] MEDS ORDERED: Metoclopramide 10 MG/2 ML SDV IVPUSH ONE (14:07)
[2021-01-26] MEDS ORDERED: diphenhydrAMINE 50 MG/ML SDV IVPUSH ONE (14:07)
--- NOTE | 2021-01-26 14:12 | EDM.PDOC ---
ED HPI GENERAL MEDICAL PROBLEM - General Chief Complaint: Diabetic Complaint Stated Complaint: TYPE 1 DIABETIC/DEHYDRATED Time Seen by Provider: 01/26/21 14:03 - History of Present Illness INITIAL COMMENTS - FREE TEXT/NARRATIVE: 25-year-old male well-known to this facility with a history of type 1 diabetes and significant difficulties with medication noncompliance and as a consequence of multiple diabetic complications he is presenting with nausea vomiting and abdominal pain. Patient reports he has been unable to keep anything down. Patient has not checked his blood sugar since being discharged from the emergency room approximately 36 hours ago. Symptoms are constant severe without alleviating factors the abdominal pain is generalized. Abdomen Pain Score (Numeric/FACES): 10 - Related Data Allergies Allergy/AdvReac Type Severity Reaction Status Date / Time amoxicillin Allergy Mild Nausea and Verified 01/26/21 14:00 Vomiting seafood Allergy Severe Vomiting Uncoded 01/26/21 14:00 Home Meds: Home Meds Insulin Aspart [NovoLOG] 10 - 15 unit SUBCUT TIDAC 08/22/20 [History] Insulin Glarg,Human.Rec.Analog [Lantus Solostar] 15 units SUBCUT BID 08/22/20 [History] Buprenorphine HCl/Naloxone HCl [Buprenorphine-Nalox 8-2 mg Tab] 3 tab SL DAILY 09/15/20 [History] Sucralfate [Carafate] 1 gm PO QIDACANDBED #120 tab 09/19/20 [Rx] Ondansetron [Zofran ODT] 4 mg PO Q6H PRN #12 tab.dis 10/14/20 [Rx] Cefdinir [Omnicef] 300 mg PO BID #20 cap 10/20/20 [Rx] Erythromycin Ethylsuccinate 200 mg PO TIDMEALS #20 susp.recon 10/20/20 [Rx] Metoclopramide HCl [Reglan] 10 mg PO TID PRN #10 tablet 01/24/21 [Rx] Pantoprazole Sodium [Protonix] 40 mg PO DAILY #30 tablet. 01/25/21 [Rx] Past Medical History - Past Health History Medical/Surgical History: Denies Medical/Surgical History HEENT History: Reports: Impaired Vision Other HEENT History: ear ache, broken and missing teeth, impaired vision in left eye Cardiovascular History: Reports: None Respiratory History: Reports: None Gastrointestinal History: Reports: GERD, GI Bleed, Irritable Bowel Syndrome Other Gastrointestinal History: gastroparesis, ulcer Genitourinary History: Reports: Hydronephrosis, Neurogenic Bladder, Pyelonephritis, Renal Calculus, Retention, Urinary, UTI, Recurrent, Other (See Below) Other Genitourinary History: hydronephrosis, neurogenic bladder Musculoskeletal History: Reports: Fracture Other Musculoskeletal History: Elbow long time ago Neurological History: Reports: None Psychiatric History: Reports: Anxiety, Depression Endocrine/Metabolic History: Reports: Diabetes, Type I Other Endocrine/Metabolic History: non-compliant to DM medications Insulin Pump Model and Staffing Branch Manager: None Hematologic History: Reports: None Immunologic History: Reports: None Oncologic (Cancer) History: Reports: None Dermatologic History: Reports: Other (See Below) Other Dermatologic History: dry itchy skin - Infectious Disease History Infectious Disease History: Reports: None - Past Surgical History Head Surgeries/Procedures: Reports: None HEENT Surgical History: Reports: None GI Surgical History: Reports: None Male Surgical History: Reports: None Endocrine Surgical History: Reports: None Musculoskeletal Surgical History: Reports: None Dermatological Surgical History: Reports: None Social & Family History - Family History Family Medical History: No Pertinent Family History OBGYN: Reports: Endocrine/Metabolic: Reports: Diabetes, Type I, Diabetes, type II - Tobacco Use Tobacco Use Status *Q: Never Tobacco User - Caffeine Use Caffeine Use: Reports: None Caffeine Use Comment: 2 per day - Recreational Drug Use Recreational Drug Use: No - Living Situation & Occupation Living situation: Reports: Single, with Family Occupation: Unemployed ED ROS GENERAL - Review of Systems Review Of Systems: See Below Free Text/Narrative/Comment: General: No fever. Eyes: No vision problems. ENT: No sore throat. Neck: No neck stiffness. Respiratory: No shortness of breath. Cardiac: No chest pain. Gastrointestinal: Per HPI Urinary: Positive for dark urine Musculoskeletal: No myalgias/arthralgias. Neurologic: No headache. ED EXAM GENERAL NO PERIP PULSE - Physical Exam Exam: See Below Text/Narrative:: General Appearance: No acute distress, appears comfortable Skin: No rash HEENT: Normocephalic/atraumatic, sclera anicteric, mucous membranes dry Neck: Normal range of motion Chest and Lungs: Bilateral breath sounds, clear to auscultation Cardiovascular: Regular rate and rhythm Abdomen: Soft, non-tender Musculoskeletal: No edema or tenderness Neurologic: Awake, alert, no obvious deficits, moving all extremities Psychiatric: Appropriate, cooperative Course - Vital Signs Last Recorded V/S: Last Vital Signs Temp 97.4 F 01/26/21 14:00 Pulse 119 H 01/26/21 14:00 Resp 17 01/26/21 14:00 BP 128/74 01/26/21 14:00 Pulse Ox 98 01/26/21 14:00 - Orders/Labs/Meds Orders: Active Orders 24 hr Category Date Time Status Patient Status [ADT] Routine ADT 01/26/21 15:22 Active Accu Check [Blood Glucose Check, Bedside] [RC] ONETIME Care 01/26/21 14:07 Active CORONAVIRUS COVID-19 RICHIE [MOLEC] Stat Lab 01/26/21 15:23 Ordered URINALYSIS W/MICROSCOPIC [UA W/MICROSCOPIC] [URIN] Stat Lab 01/26/21 14:09 Ordered Dextrose 50% in Water Med 01/26/21 14:59 Active 50 ml IVPUSH ASDIRECTED PRN Glucagon,Human Recombinant [GlucaGen] Med 01/26/21 14:59 Active 1 mg IM ASDIRECTED PRN Insulin Regular in 0.9 % NACL [Myxredlin in NS 100 UNIT Med 01/26/21 15:45 Active /100 ML] 100 unit Premix Bag 1 bag IV TITRATE Lactated Ringers [Ringers, Lactated] 1,000 ml Med 01/26/21 15:30 Active IV ASDIRECTED Sodium Chloride 0.9% [Saline Flush] Med 01/26/21 14:06 Active 10 ml FLUSH ASDIRECTED PRN Sodium Chloride 0.9% [Saline Flush] Med 01/26/21 14:06 Active 2.5 ml FLUSH ASDIRECTED PRN Saline Lock Insert [OM.PC] Stat Oth 01/26/21 14:06 Ordered Medication Orders Dextrose/Water (50% Dextrose In Water 50 Ml Syringe) 50 ml IVPUSH ASDIRECTED PRN PRN Reason: Hypoglycemia Glucagon (Glucagon,Human Recombinant 1 Mg Vial) 1 mg IM ASDIRECTED PRN PRN Reason: Hypoglycemia Lactated Ringer's (Ringers, Lactated) 1,000 mls @ 999 mls/hr IV ASDIRECTED AUGUSTINE Insulin Regular in 0.9 % NACL (100 unit/ Premix) 100 mls @ 6 mls/hr IV TITRATE AUGUSTINE; Protocol Sodium Chloride (Sodium Chloride 0.9% 10 Ml Syringe) 10 ml FLUSH ASDIRECTED PRN PRN Reason: Keep Vein Open Last Admin: 01/26/21 14:32 Dose: 10 ml Documented by: EMANUEL Sodium Chloride (Sodium Chloride 0.9% 2.5 Ml Syringe) 2.5 ml FLUSH ASDIRECTED PRN PRN Reason: Keep Vein Open Last Admin: 01/26/21 14:32 Dose: 2.5 ml Documented by: EMANUEL Labs: Laboratory Tests 01/26/21 01/26/21 01/26/21 Range/Units 14:11 14:20 14:20 WBC 11.91 H (4.0-11.0) K/uL RBC 4.56 (4.50-5.90) M/uL Hgb 11.8 L (13.0-17.0) g/dL Hct 38.3 (38.0-50.0) % MCV 84.0 (80.0-98.0) fL MCH 25.9 L (27.0-32.0) pg MCHC 30.8 L (31.0-37.0) g/dL RDW Std Deviation 46.2 (28.0-62.0) fl RDW Coeff of Erika 15 (11.0-15.0) % Plt Count 297 (150-400) K/uL MPV 10.20 (7.40-12.00) fL Neut % (Auto) 88.3 H (48.0-80.0) % Lymph % (Auto) 7.1 L (16.0-40.0) % Rolette % (Auto) 4.5 (0.0-15.0) % Eos % (Auto) 0.0 (0.0-7.0) % Baso % (Auto) 0.1 (0.0-1.5) % Neut # (Auto) 10.5 H (1.4-5.7) K/uL Lymph # (Auto) 0.8 (0.6-2.4) K/uL Rolette # (Auto) 0.5 (0.0-0.8) K/uL Eos # (Auto) 0.0 (0.0-0.7) K/uL Baso # (Auto) 0.0 (0.0-0.1) K/uL Nucleated RBC % 0.0 /100WBC Nucleated RBCs # 0 K/uL VBG pH (7.31-7.41) VBG pCO2 (41-51) mmHG VBG pO2 mmHG VBG HCO3 (23-28) mEq/L VBG Total CO2 (24-29) mmol/L VBG Base Excess (-2.0-3.0) Sodium 155 H (136-148) mmol/L Potassium 4.8 (3.5-5.1) mmol/L Chloride 114 H (98-107) mmol/L Carbon Dioxide 25.8 (21.0-32.0) mmol/L BUN 54 H (7.0-18.0) mg/dL Creatinine 1.7 H (0.8-1.3) mg/dL Est Cr Clr Drug Dosing 52.03 mL/min Estimated GFR (MDRD) 50.2 ml/min Glucose 412 H (74-106) mg/dL POC Glucose 345 H (70-99) mg/dL Calcium 10.0 (8.5-10.1) mg/dL Magnesium 3.3 H (1.8-2.4) mg/dL Total Bilirubin 0.4 (0.2-1.0) mg/dL AST 19 (15-37) IU/L ALT 15 (14-63) IU/L Alkaline Phosphatase 107 (46-116) U/L Total Protein 8.5 H (6.4-8.2) g/dL Albumin 3.6 (3.4-5.0) g/dL Globulin 4.9 H (2.6-4.0) g/dL Albumin/Globulin Ratio 0.7 L (0.9-1.6) Lipase 23 L (73-393) U/L Ketones (NEG) 01/26/21 01/26/21 Range/Units 14:20 14:20 WBC (4.0-11.0) K/uL RBC (4.50-5.90) M/uL Hgb (13.0-17.0) g/dL Hct (38.0-50.0) % MCV (80.0-98.0) fL MCH (27.0-32.0) pg MCHC (31.0-37.0) g/dL RDW Std Deviation (28.0-62.0) fl RDW Coeff of Erika (11.0-15.0) % Plt Count (150-400) K/uL MPV (7.40-12.00) fL Neut % (Auto) (48.0-80.0) % Lymph % (Auto) (16.0-40.0) % Rolette % (Auto) (0.0-15.0) % Eos % (Auto) (0.0-7.0) % Baso % (Auto) (0.0-1.5) % Neut # (Auto) (1.4-5.7) K/uL Lymph # (Auto) (0.6-2.4) K/uL Rolette # (Auto) (0.0-0.8) K/uL Eos # (Auto) (0.0-0.7) K/uL Baso # (Auto) (0.0-0.1) K/uL Nucleated RBC % /100WBC Nucleated RBCs # K/uL VBG pH 7.34 (7.31-7.41) VBG pCO2 48 (41-51) mmHG VBG pO2 < 30 mmHG VBG HCO3 26 (23-28) mEq/L VBG Total CO2 24 (24-29) mmol/L VBG Base Excess -0.6 (-2.0-3.0) Sodium (136-148) mmol/L Potassium (3.5-5.1) mmol/L Chloride (98-107) mmol/L Carbon Dioxide (21.0-32.0) mmol/L BUN (7.0-18.0) mg/dL Creatinine (0.8-1.3) mg/dL Est Cr Clr Drug Dosing mL/min Estimated GFR (MDRD) ml/min Glucose (74-106) mg/dL POC Glucose (70-99) mg/dL Calcium (8.5-10.1) mg/dL Magnesium (1.8-2.4) mg/dL Total Bilirubin (0.2-1.0) mg/dL AST (15-37) IU/L ALT (14-63) IU/L Alkaline Phosphatase (46-116) U/L Total Protein (6.4-8.2) g/dL Albumin (3.4-5.0) g/dL Globulin (2.6-4.0) g/dL Albumin/Globulin Ratio (0.9-1.6) Lipase (73-393) U/L Ketones MODERATE H (NEG) Meds: Medications Generic Name Dose Route Start Last Admin Trade Name Gustavoq PRN Reason Stop Dose Admin Dextrose/Water 50 ml 01/26/21 14:59 50% Dextrose In Water 50 Ml Syringe IVPUSH ASDIRECTED PRN Hypoglycemia Glucagon 1 mg 01/26/21 14:59 Glucagon,Human Recombinant 1 Mg Vial IM ASDIRECTED PRN Hypoglycemia Lactated Ringer's 1,000 mls @ 999 mls/hr 01/26/21 15:30 Ringers, Lactated IV ASDIRECTED AUGUSTINE Insulin Regular in 0.9 % NACL 100 mls @ 6 mls/hr 01/26/21 15:45 100 unit/ Premix IV TITRATE AUGUSTINE Protocol 6 UNIT/HR Sodium Chloride 10 ml 01/26/21 14:06 01/26/21 14:32 Sodium Chloride 0.9% 10 Ml Syringe FLUSH 10 ml ASDIRECTED PRN Administration Keep Vein Open Sodium Chloride 2.5 ml 01/26/21 14:06 01/26/21 14:32 Sodium Chloride 0.9% 2.5 Ml Syringe FLUSH 2.5 ml ASDIRECTED PRN Administration Keep Vein Open Discontinued Medications Generic Name Dose Route Start Last Admin Trade Name Mary PRN Reason Stop Dose Admin Diphenhydramine HCl 25 mg 01/26/21 14:07 01/26/21 14:31 Diphenhydramine 50 Mg/Ml Sdv IVPUSH 01/26/21 14:08 25 mg ONETIME ONE Administration Sodium Chloride 1,000 mls @ 999 mls/hr 01/26/21 14:15 01/26/21 14:32 Normal Saline IV 999 mls/hr ASDIRECTED AUGUSTINE Administration Sodium Chloride 1,000 mls @ 999 mls/hr 01/26/21 15:00 Normal Saline IV ASDIRECTED AUGUSTINE Insulin Human Regular 100 unit 100 mls @ 6 mls/hr 01/26/21 15:30 / Sodium Chloride IV TITRATE AUGUSTINE Protocol 6 UNIT/HR Insulin Aspart 10 unit 01/26/21 14:59 Insulin Aspart 100 Units/Ml 10 Ml Vial SUBCUT 01/26/21 15:00 STAT STA Metoclopramide HCl 10 mg 01/26/21 14:07 01/26/21 14:31 Metoclopramide 10 Mg/2 Ml Sdv IVPUSH 01/26/21 14:08 10 mg ONETIME ONE Administration Departure - Departure Time of Disposition: 15:36 Disposition: Admitted As Inpatient 68 Condition: Fair Clinical Impression: Hypernatremia, DKA, type 1 - Discharge Information Referrals: PCP,None [Primary Care Provider] - Forms: ED Department Discharge Critical Care Note - Critical Care Note Total Time (mins): 55 Comments: Patient with multiple critical lab abnormalities including hypernatremia and diabetic ketoacidosis. Required serial reassessment complex medical decision making. Sepsis Event Note (ED) - Evaluation Sepsis Screening Result: No Definite Risk - Focused Exam Vital Signs: Vital Signs Temp Pulse Resp BP Pulse Ox 01/26/21 14:00 97.4 F 119 H 17 128/74 98 - My Orders Last 24 Hours: My Active Orders 01/26/21 14:06 Sodium Chloride 0.9% [Saline Flush] 10 ml FLUSH ASDIRECTED PRN Sodium Chloride 0.9% [Saline Flush] 2.5 ml FLUSH ASDIRECTED PRN Saline Lock Insert [OM.PC] Stat 01/26/21 14:07 Accu Check [Blood Glucose Check, Bedside] [RC] ONETIME 01/26/21 14:09 URINALYSIS W/MICROSCOPIC [UA W/MICROSCOPIC] [URIN] Stat 01/26/21 14:59 Dextrose 50% in Water 50 ml IVPUSH ASDIRECTED PRN Glucagon,Human Recombinant [GlucaGen] 1 mg IM ASDIRECTED PRN 01/26/21 15:22 Patient Status [ADT] Routine 01/26/21 15:23 CORONAVIRUS COVID-19 RICHIE [MOLEC] Stat 01/26/21 15:30 Lactated Ringers [Ringers, Lactated] 1,000 ml IV ASDIRECTED 01/26/21 15:45 Insulin Regular in 0.9 % NACL [Myxredlin in NS 100 UNIT/100 ML] 100 unit Premix Bag 1 bag IV TITRATE - Assessment/Plan Last 24 Hours: My Active Orders 01/26/21 14:06 Sodium Chloride 0.9% [Saline Flush] 10 ml FLUSH ASDIRECTED PRN Sodium Chloride 0.9% [Saline Flush] 2.5 ml FLUSH ASDIRECTED PRN Saline Lock Insert [OM.PC] Stat 01/26/21 14:07 Accu Check [Blood Glucose Check, Bedside] [RC] ONETIME 01/26/21 14:09 URINALYSIS W/MICROSCOPIC [UA W/MICROSCOPIC] [URIN] Stat 01/26/21 14:59 Dextrose 50% in Water 50 ml IVPUSH ASDIRECTED PRN Glucagon,Human Recombinant [GlucaGen] 1 mg IM ASDIRECTED PRN 01/26/21 15:22 Patient Status [ADT] Routine 01/26/21 15:23 CORONAVIRUS COVID-19 RICHIE [MOLEC] Stat 01/26/21 15:30 Lactated Ringers [Ringers, Lactated] 1,000 ml IV ASDIRECTED 01/26/21 15:45 Insulin Regular in 0.9 % NACL [Myxredlin in NS 100 UNIT/100 ML] 100 unit Premix Bag 1 bag IV TITRATE Assessment:: 25-year-old male presenting with nausea vomiting and clinical dehydration with dry mucous membranes and IV fluids will be ordered. Hyperglycemia is a consideration DKA or other electrolyte derangement is a consideration. Patient afebrile low suspicion for acute infective process but this is a consideration as well urinalysis is pending. 1535: Patient's labs are notable for severe hypernatremia likely related to dehydration he has an acute kidney injury he also has an anion gap metabolic acidosis with ketones consistent with mild early form of DKA. Given this patient was discussed in full with Dr. Welch. We will switch his IV fluids from normal saline to lactated Ringer's. Patient will be placed on an insulin drip and he will be admitted to the ICU.
[2021-01-26] MEDS ORDERED: Sodium Chloride 0.9% 1,000 ML IV SCH ×2 (14:15→15:00)
[2021-01-26 14:55] LABS: CARBON DIOXIDE,CO2 25.8 mmol/L (21.0-32.0); POTASSIUM,K 4.8 mmol/L (3.5-5.1)
[2021-01-26] MEDS ORDERED: 50% Dextrose in Water 50 ML Syringe IVPUSH PRN (14:59)
[2021-01-26] MEDS ORDERED: Glucagon,Human Recombinant 1 MG Vial IM PRN (14:59)
[2021-01-26] MEDS ORDERED: Lactated Ringers 1,000 ML IV SCH ×2 (15:30→16:00)
[2021-01-26] MEDS ORDERED: Non-Formulary Medication 1 Each (Buprenorphine Hcl/Naloxone Hcl 1 EACH Tab.Subl) SL PRN (15:53)
--- NOTE | 2021-01-26 15:57 | PCM.HP.2 ---
H&P History of Present Illness - General Date of Service: 01/26/21 Admit Problem/Dx: Admission Diagnosis/Problem Admission Diagnosis/Problem Hypernatremia - History of Present Illness Initial Comments - Free Text/Narative: 25 yo male with pmh of DM type 1, gastroparesis, neurogenic bladder who has had multiple admission for nausea and vomiting due to gastroparesis and UTI. Patient presents with a four day history of nausea and vomiting. He has not given himself any insulin in the past two days. He denies any fevers. Abdomen Pain Score (Numeric/FACES): 10 - Related Data Allergies/Adverse Reactions: Allergies Allergy/AdvReac Type Severity Reaction Status Date / Time amoxicillin Allergy Mild Nausea and Verified 01/26/21 14:00 Vomiting seafood Allergy Severe Vomiting Uncoded 01/26/21 14:00 Home Medications: Home Meds Insulin Aspart [NovoLOG] 10 - 15 unit SUBCUT TIDAC 08/22/20 [History] Insulin Glarg,Human.Rec.Analog [Lantus Solostar] 15 units SUBCUT BID 08/22/20 [History] Buprenorphine HCl/Naloxone HCl [Buprenorphine-Nalox 8-2 mg Tab] 3 tab SL DAILY 09/15/20 [History] Sucralfate [Carafate] 1 gm PO QIDACANDBED #120 tab 09/19/20 [Rx] Ondansetron [Zofran ODT] 4 mg PO Q6H PRN #12 tab.dis 10/14/20 [Rx] Cefdinir [Omnicef] 300 mg PO BID #20 cap 10/20/20 [Rx] Erythromycin Ethylsuccinate 200 mg PO TIDMEALS #20 susp.recon 10/20/20 [Rx] Metoclopramide HCl [Reglan] 10 mg PO TID PRN #10 tablet 01/24/21 [Rx] Pantoprazole Sodium [Protonix] 40 mg PO DAILY #30 tablet. 01/25/21 [Rx] Past Medical History - Past Health History Medical/Surgical History: Denies Medical/Surgical History HEENT History: Reports: Impaired Vision Other HEENT History: ear ache, broken and missing teeth, impaired vision in left eye Cardiovascular History: Reports: None Respiratory History: Reports: None Gastrointestinal History: Reports: GERD, GI Bleed, Irritable Bowel Syndrome Other Gastrointestinal History: gastroparesis, ulcer Genitourinary History: Reports: Hydronephrosis, Neurogenic Bladder, Pyelonephritis, Renal Calculus, Retention, Urinary, UTI, Recurrent, Other (See Below) Other Genitourinary History: hydronephrosis, neurogenic bladder Musculoskeletal History: Reports: Fracture Other Musculoskeletal History: Elbow long time ago Neurological History: Reports: None Psychiatric History: Reports: Anxiety, Depression Endocrine/Metabolic History: Reports: Diabetes, Type I Other Endocrine/Metabolic History: non-compliant to DM medications Insulin Pump Model and Endocrinology Teacher: None Hematologic History: Reports: None Immunologic History: Reports: None Oncologic (Cancer) History: Reports: None Dermatologic History: Reports: Other (See Below) Other Dermatologic History: dry itchy skin - Infectious Disease History Infectious Disease History: Reports: None - Past Surgical History Head Surgeries/Procedures: Reports: None HEENT Surgical History: Reports: None GI Surgical History: Reports: None Male Surgical History: Reports: None Endocrine Surgical History: Reports: None Musculoskeletal Surgical History: Reports: None Dermatological Surgical History: Reports: None Social & Family History - Family History Family Medical History: No Pertinent Family History OBGYN: Reports: Endocrine/Metabolic: Reports: Diabetes, Type I, Diabetes, type II - Tobacco Use Tobacco Use Status *Q: Never Tobacco User - Caffeine Use Caffeine Use: Reports: None Caffeine Use Comment: 2 per day - Recreational Drug Use Recreational Drug Use: No - Living Situation & Occupation Living situation: Reports: Single, with Family Occupation: Unemployed H&P Review of Systems - Review of Systems: Review Of Systems: Comprehensive ROS is negative, except as noted in HPI. Exam - Exam Exam: See Below - Vital Signs Vital Signs: Last Vital Signs Temp 36.3 C 01/26/21 14:00 Pulse 119 H 01/26/21 14:00 Resp 17 01/26/21 14:00 BP 128/74 01/26/21 14:00 Pulse Ox 98 01/26/21 14:00 Weight: 54.431 kg - Exam General: Alert, Oriented Neck: Supple Lungs: Clear to Auscultation, Normal Respiratory Effort Cardiovascular: Regular Rate, Regular Rhythm GI/Abdominal Exam: Normal Bowel Sounds, Soft, Non-Tender Extremities: Non-Tender, No Pedal Edema Skin: Warm, Dry, Intact Neurological: Cranial Nerves Intact - Patient Data Lab Results Last 24 hrs: Laboratory Results - last 24 hr 01/26/21 01/26/21 01/26/21 Range/Units 14:11 14:20 14:20 WBC 11.91 H (4.0-11.0) K/uL RBC 4.56 (4.50-5.90) M/uL Hgb 11.8 L (13.0-17.0) g/dL Hct 38.3 (38.0-50.0) % MCV 84.0 (80.0-98.0) fL MCH 25.9 L (27.0-32.0) pg MCHC 30.8 L (31.0-37.0) g/dL RDW Std Deviation 46.2 (28.0-62.0) fl RDW Coeff of Erika 15 (11.0-15.0) % Plt Count 297 (150-400) K/uL MPV 10.20 (7.40-12.00) fL Neut % (Auto) 88.3 H (48.0-80.0) % Lymph % (Auto) 7.1 L (16.0-40.0) % Grayson % (Auto) 4.5 (0.0-15.0) % Eos % (Auto) 0.0 (0.0-7.0) % Baso % (Auto) 0.1 (0.0-1.5) % Neut # (Auto) 10.5 H (1.4-5.7) K/uL Lymph # (Auto) 0.8 (0.6-2.4) K/uL Grayson # (Auto) 0.5 (0.0-0.8) K/uL Eos # (Auto) 0.0 (0.0-0.7) K/uL Baso # (Auto) 0.0 (0.0-0.1) K/uL Nucleated RBC % 0.0 /100WBC Nucleated RBCs # 0 K/uL VBG pH (7.31-7.41) VBG pCO2 (41-51) mmHG VBG pO2 mmHG VBG HCO3 (23-28) mEq/L VBG Total CO2 (24-29) mmol/L VBG Base Excess (-2.0-3.0) Sodium 155 H (136-148) mmol/L Potassium 4.8 (3.5-5.1) mmol/L Chloride 114 H (98-107) mmol/L Carbon Dioxide 25.8 (21.0-32.0) mmol/L BUN 54 H (7.0-18.0) mg/dL Creatinine 1.7 H (0.8-1.3) mg/dL Est Cr Clr Drug Dosing 52.03 mL/min Estimated GFR (MDRD) 50.2 ml/min Glucose 412 H (74-106) mg/dL POC Glucose 345 H (70-99) mg/dL Calcium 10.0 (8.5-10.1) mg/dL Magnesium 3.3 H (1.8-2.4) mg/dL Total Bilirubin 0.4 (0.2-1.0) mg/dL AST 19 (15-37) IU/L ALT 15 (14-63) IU/L Alkaline Phosphatase 107 (46-116) U/L Total Protein 8.5 H (6.4-8.2) g/dL Albumin 3.6 (3.4-5.0) g/dL Globulin 4.9 H (2.6-4.0) g/dL Albumin/Globulin Ratio 0.7 L (0.9-1.6) Lipase 23 L (73-393) U/L Ketones (NEG) 01/26/21 01/26/21 Range/Units 14:20 14:20 WBC (4.0-11.0) K/uL RBC (4.50-5.90) M/uL Hgb (13.0-17.0) g/dL Hct (38.0-50.0) % MCV (80.0-98.0) fL MCH (27.0-32.0) pg MCHC (31.0-37.0) g/dL RDW Std Deviation (28.0-62.0) fl RDW Coeff of Erika (11.0-15.0) % Plt Count (150-400) K/uL MPV (7.40-12.00) fL Neut % (Auto) (48.0-80.0) % Lymph % (Auto) (16.0-40.0) % Grayson % (Auto) (0.0-15.0) % Eos % (Auto) (0.0-7.0) % Baso % (Auto) (0.0-1.5) % Neut # (Auto) (1.4-5.7) K/uL Lymph # (Auto) (0.6-2.4) K/uL Grayson # (Auto) (0.0-0.8) K/uL Eos # (Auto) (0.0-0.7) K/uL Baso # (Auto) (0.0-0.1) K/uL Nucleated RBC % /100WBC Nucleated RBCs # K/uL VBG pH 7.34 (7.31-7.41) VBG pCO2 48 (41-51) mmHG VBG pO2 < 30 mmHG VBG HCO3 26 (23-28) mEq/L VBG Total CO2 24 (24-29) mmol/L VBG Base Excess -0.6 (-2.0-3.0) Sodium (136-148) mmol/L Potassium (3.5-5.1) mmol/L Chloride (98-107) mmol/L Carbon Dioxide (21.0-32.0) mmol/L BUN (7.0-18.0) mg/dL Creatinine (0.8-1.3) mg/dL Est Cr Clr Drug Dosing mL/min Estimated GFR (MDRD) ml/min Glucose (74-106) mg/dL POC Glucose (70-99) mg/dL Calcium (8.5-10.1) mg/dL Magnesium (1.8-2.4) mg/dL Total Bilirubin (0.2-1.0) mg/dL AST (15-37) IU/L ALT (14-63) IU/L Alkaline Phosphatase (46-116) U/L Total Protein (6.4-8.2) g/dL Albumin (3.4-5.0) g/dL Globulin (2.6-4.0) g/dL Albumin/Globulin Ratio (0.9-1.6) Lipase (73-393) U/L Ketones MODERATE H (NEG) Result Diagrams: 01/27/21 05:15 01/27/21 11:05 Sepsis Event Note - Evaluation Sepsis Screening Result: No Definite Risk - Focused Exam Vital Signs: Vital Signs Temp Pulse Resp BP Pulse Ox 01/26/21 14:00 36.3 C 119 H 17 128/74 98 - Problem List (1) DKA, type 1 SNOMED Code(s): 21586373, 49901655 ICD Code: E10.10 - TYPE 1 DIABETES MELLITUS WITH KETOACIDOSIS WITHOUT COMA Status: Acute Current Visit: Yes (2) Hypernatremia SNOMED Code(s): 054948144 ICD Code: E87.0 - HYPEROSMOLALITY AND HYPERNATREMIA Status: Acute Current Visit: Yes (3) Dehydration SNOMED Code(s): 08723417 ICD Code: E86.0 - DEHYDRATION Status: Acute Current Visit: Yes (4) Diabetic gastroparesis SNOMED Code(s): 741233956 ICD Code: E11.43 - TYPE 2 DIABETES W DIABETIC AUTONOMIC (POLY)NEUROPATHY; K31.84 - GASTROPARESIS Status: Acute Priority: High Current Visit: Yes (5) Diabetic ketoacidosis SNOMED Code(s): 822891221, 731256667 ICD Code: E11.10 - TYPE 2 DIABETES MELLITUS WITH KETOACIDOSIS WITHOUT COMA Status: Acute Current Visit: Yes Qualifiers: Diabetes mellitus type: type 1 Diabetes mellitus complication detail: without coma Qualified Code(s): E10.10 - Type 1 diabetes mellitus with ketoacidosis without coma Problem List Initiated/Reviewed/Updated: Yes Orders Last 24hrs: Active Orders 24 hr Category Date Time Status Patient Status [ADT] Routine ADT 01/26/21 15:22 Active Accu Check [Blood Glucose Check, Bedside] [RC] ONETIME Care 01/26/21 14:07 Active Bladder Scan [RC] Q6H Care 01/26/21 15:52 Ordered Oxygen Therapy [RC] PRN Care 01/26/21 15:55 Ordered Up ad Romy [RC] ASDIRECTED Care 01/26/21 15:55 Ordered VTE/DVT Education [RC] PER UNIT ROUTINE Care 01/26/21 15:55 Ordered Vital Signs [RC] Q4H Care 01/26/21 15:55 Ordered BASIC METABOLIC PANEL,BMP [CHEM] Q6H Lab 01/26/21 17:00 Ordered BASIC METABOLIC PANEL,BMP [CHEM] Q6H Lab 01/26/21 23:00 Ordered BASIC METABOLIC PANEL,BMP [CHEM] Q6H Lab 01/27/21 05:00 Ordered BASIC METABOLIC PANEL,BMP [CHEM] Q6H Lab 01/27/21 11:00 Ordered CBC WITH AUTO DIFF [HEME] AM Lab 01/27/21 05:11 Ordered CBC WITH AUTO DIFF [HEME] AM Lab 01/28/21 05:11 Ordered CBC WITH AUTO DIFF [HEME] AM Lab 01/29/21 05:11 Ordered CORONAVIRUS COVID-19 RICHIE [MOLEC] Stat Lab 01/26/21 15:23 Ordered CULTURE URINE [MREF] Stat Lab 01/26/21 15:52 Ordered URINALYSIS W/MICROSCOPIC [UA W/MICROSCOPIC] [URIN] Stat Lab 01/26/21 14:09 Ordered Buprenorphine HCl/Naloxone HCl Med 01/26/21 15:53 Ordered 3 tab SL TID PRN Dextrose 50% in Water Med 01/26/21 14:59 Active 50 ml IVPUSH ASDIRECTED PRN Enoxaparin [Lovenox] Med 01/26/21 16:00 Ordered 40 mg SUBCUT Q24H Glucagon,Human Recombinant [GlucaGen] Med 01/26/21 14:59 Active 1 mg IM ASDIRECTED PRN Insulin Regular in 0.9 % NACL [Myxredlin in NS 100 UNIT Med 01/26/21 15:45 Active /100 ML] 100 unit Premix Bag 1 bag IV TITRATE Lactated Ringers @ 150 MLS/HR(1,000ml) Med 01/26/21 16:00 Ordered Lactated Ringers [Ringers, Lactated] 1,000 ml IV ASDIRECTED Lactated Ringers [Ringers, Lactated] 1,000 ml Med 01/26/21 15:30 Active IV ASDIRECTED Metoclopramide [Reglan] Med 01/26/21 15:53 Ordered 10 mg PO TID PRN Ondansetron [Zofran ODT] Med 01/26/21 15:53 Ordered 4 mg PO Q6H PRN Pantoprazole [ProTONIX] Med 01/26/21 16:00 Ordered 40 mg IVPUSH Q24H Sodium Chloride 0.9% [Saline Flush] Med 01/26/21 14:06 Active 10 ml FLUSH ASDIRECTED PRN Sodium Chloride 0.9% [Saline Flush] Med 01/26/21 14:06 Active 2.5 ml FLUSH ASDIRECTED PRN Saline Lock Insert [OM.PC] Stat Oth 01/26/21 14:06 Ordered Resuscitation Status Routine Resus Stat 01/26/21 15:55 Ordered Medication Orders Dextrose/Water (50% Dextrose In Water 50 Ml Syringe) 50 ml IVPUSH ASDIRECTED PRN PRN Reason: Hypoglycemia Glucagon (Glucagon,Human Recombinant 1 Mg Vial) 1 mg IM ASDIRECTED PRN PRN Reason: Hypoglycemia Lactated Ringer's (Ringers, Lactated) 1,000 mls @ 999 mls/hr IV ASDIRECTED AUGUSTINE Insulin Regular in 0.9 % NACL (100 unit/ Premix) 100 mls @ 6 mls/hr IV TITRATE AUGUSTINE; Protocol Lactated Ringer's (Ringers, Lactated) 1,000 mls @ 150 mls/hr IV ASDIRECTED AUGUSTINE Metoclopramide HCl (Metoclopramide 10 Mg Tab) 10 mg PO TID PRN PRN Reason: Nausea/Vomiting Non-Formulary Medication (Buprenorphine Hcl/Naloxone Hcl) 3 tab SL TID PRN PRN Reason: Abdominal Pain Ondansetron HCl (Ondansetron 4 Mg Tab.Dis) 4 mg PO Q6H PRN PRN Reason: Nausea Pantoprazole Sodium (Pantoprazole 40 Mg/10 Ml Syringe) 40 mg IVPUSH Q24H AUGUSTINE Sodium Chloride (Sodium Chloride 0.9% 10 Ml Syringe) 10 ml FLUSH ASDIRECTED PRN PRN Reason: Keep Vein Open Last Admin: 01/26/21 14:32 Dose: 10 ml Documented by: EMANUEL Sodium Chloride (Sodium Chloride 0.9% 2.5 Ml Syringe) 2.5 ml FLUSH ASDIRECTED PRN PRN Reason: Keep Vein Open Last Admin: 01/26/21 14:32 Dose: 2.5 ml Documented by: EMANUEL Assessment/Plan Comment:: 25 yo male with pmh of DM admitted for dehydration, hypernatremia, gastroparesis and DKA. DKA: treating with insulin drip and will trend BMP Gastroparesis: antiemetics as needed, will resume Suboxone Neurogenic bladder: UA pending, will bladder scan q 6hrs
[2021-01-26] MEDS: Pantoprazole 40 MG/10 ML Syringe IVPUSH SCH (16:00)
[2021-01-26] MEDS: Enoxaparin 40 MG/0.4 ML Syringe SUBCUT SCH (17:34)
[2021-01-26 18:14] LABS: CARBON DIOXIDE,CO2 25.4 mmol/L (21.0-32.0); POTASSIUM,K 4.1 mmol/L (3.5-5.1)
--- NOTE | 2021-01-26 18:17 | PN ---
THC Physician - Brief Progress OgbeGHWEWJVCT84/17/2021 18:07[facility] Eddie Keller, FRANK - BETHANY (TAYLOR) - BETHANY GEGE FITCHAngelicDate of Service 01/26/2021 18:07HPI/Events o f Note eICU admission [id number] male currently admitted to the ICU for DKA. Patient presented to the hospital with complaints of nausea and vomiting with associated abdominal pain. Due to the sy mptoms, patient has not been taking his insulin for the past several days. On arrival to the ED john ent was noted to be tachycardic with otherwise stable vitals. Initial lab work-up revealed hyperglyc emia, hypernatremia 155, ANA LILIA 1.7, leukocytosis 11.9 and negative Covid test. Patient was given IV fl uids and initiated on insulin gtt. with admission to the ICU for further management.Patient seen on c amera, laying in bed, does not appear to be in acute distress at this time and does appear very comfo rtableVital signs reviewedLabs/EMR reviewedDKA-Recommend continuing DKA protocol with insulin gtt.-Re commend IV fluid resuscitation with lactated ringers due to lower Na content. -Continue to monitor BM P and BHB [id number] to monitor for any s/s of infectious process (UA pending).-Recommend keeping N PO until hyperglycemia improves and n/v resolves to be able to tolerate diet-Agree with PRN reglan. R ecommend avoiding narcotics if possible. ANA LILIA-Likely prerenal in etiology-Continue to trend creatinine , if continued uptrend or urine output decreases will need renal imaging at that time.-Avoid nephroto xins and continue with strict I's and O's.Thank you for allowing us to participate in the care of thi s patient. Please do not hesitate to contact eICU for any questions, clarification or assistance with implementation of above.Interventions Major-Hyperglycemia - active titration of insulin therapyElect ronically Signed by: VIKY ELLER) on 01/26/2021 18:16
[2021-01-26] MEDS ORDERED: Ondansetron 4 MG/2 ML SDV ONE (20:49)
[2021-01-26] MEDS ORDERED: diphenhydrAMINE 25 MG Cap PO ONE (21:18)
[2021-01-26] MEDS ORDERED: Ondansetron 4 MG/2 ML SDV IVPUSH PRN (21:19)
--- NOTE | 2021-01-26 22:12 | PN ---
THC Physician - Brief Progress UeogSUIPSKZWY08/17/2021 22:10[facility] Eddie puckett [place] - BETHANY (TAYLOR) - GEGE BHATTDate of Service 01/26/2021 22:10HPI/Events o f Note BG<250, DKA management- Discontinue LR- Start D5W at 100cc/hr (patient hypernatremic)Intervent ions Major-Hyperglycemia - active titration of insulin therapy
[2021-01-26] MEDS: Dextrose 5% in Water 1,000 ML IV SCH (22:14)
[2021-01-26] MEDS: cefTRIAXone 1 GM in Premix Bag 1 BAG IV SCH (22:40)
[2021-01-26 23:17] LABS: BLOOD UREA NITROGEN,BUN 47 mg/dL (7.0-18.0); CARBON DIOXIDE,CO2 27.9 mmol/L (21.0-32.0); CHLORIDE,CL 121 mmol/L (98-107); GLUCOSE RANDOM 150 mg/dL (74-106); POTASSIUM,K 4.1 mmol/L (3.5-5.1); SODIUM,NA 159 mmol/L (136-148)
[2021-01-27] MEDS: Ondansetron 4 MG/2 ML SDV IVPUSH PRN ×2 (03:47→11:08)
[2021-01-27 05:54] LABS: BLOOD UREA NITROGEN,BUN 46 mg/dL (7.0-18.0); CARBON DIOXIDE,CO2 29.4 mmol/L (21.0-32.0); CHLORIDE,CL 119 mmol/L (98-107); GLUCOSE RANDOM 152 mg/dL (74-106); POTASSIUM,K 4.1 mmol/L (3.5-5.1); SODIUM,NA 159 mmol/L (136-148)
[2021-01-27] MEDS: Dextrose 5% in Water 1,000 ML IV SCH ×2 (08:18→19:30)
[2021-01-27 11:38] LABS: BLOOD UREA NITROGEN,BUN 41 mg/dL (7.0-18.0); CARBON DIOXIDE,CO2 31.1 mmol/L (21.0-32.0); CHLORIDE,CL 117 mmol/L (98-107); GLUCOSE RANDOM 164 mg/dL (74-106); POTASSIUM,K 3.8 mmol/L (3.5-5.1); SODIUM,NA 155 mmol/L (136-148)
--- NOTE | 2021-01-27 16:12 | PCM.PN ---
- General Info Date of Service: 01/27/21 - Review of Systems Systems Review Comment:: reports nausea, not able to keep anything down - Patient Data Vitals - Most Recent: Last Vital Signs Temp 36.4 C 01/27/21 12:00 Pulse 109 H 01/26/21 18:57 Resp 11 L 01/27/21 15:00 BP 91/50 L 01/27/21 15:00 Pulse Ox 99 01/27/21 15:55 Weight - Most Recent: 54.431 kg I&O - Last 24 Hours: Intake & Output 01/27/21 01/27/21 01/27/21 06:59 14:59 22:59 Intake Total 60 Output Total 1000 Balance -940 Lab Results Last 24 Hours: Laboratory Results - last 24 hr 01/26/21 01/26/21 01/26/21 Range/Units 16:05 16:30 17:35 WBC (4.0-11.0) K/uL RBC (4.50-5.90) M/uL Hgb (13.0-17.0) g/dL Hct (38.0-50.0) % MCV (80.0-98.0) fL MCH (27.0-32.0) pg MCHC (31.0-37.0) g/dL RDW Std Deviation (28.0-62.0) fl RDW Coeff of Erika (11.0-15.0) % Plt Count (150-400) K/uL MPV (7.40-12.00) fL Neut % (Auto) (48.0-80.0) % Lymph % (Auto) (16.0-40.0) % [place] % (Auto) (0.0-15.0) % Eos % (Auto) (0.0-7.0) % Baso % (Auto) (0.0-1.5) % Neut # (Auto) (1.4-5.7) K/uL Lymph # (Auto) (0.6-2.4) K/uL [place] # (Auto) (0.0-0.8) K/uL Eos # (Auto) (0.0-0.7) K/uL Baso # (Auto) (0.0-0.1) K/uL Nucleated RBC % /100WBC Nucleated RBCs # K/uL Sodium (136-148) mmol/L Potassium (3.5-5.1) mmol/L Chloride (98-107) mmol/L Carbon Dioxide (21.0-32.0) mmol/L BUN (7.0-18.0) mg/dL Creatinine (0.8-1.3) mg/dL Est Cr Clr Drug Dosing mL/min Estimated GFR (MDRD) ml/min Glucose (74-106) mg/dL POC Glucose 340 H 278 H (70-99) mg/dL Calcium (8.5-10.1) mg/dL Urine Color Urine Appearance Urine pH (5.0-8.0) Ur Specific [place] (1.001-1.035) Urine Protein (NEGATIVE) mg/dL Urine Glucose (UA) (NEGATIVE) mg/dL Urine Ketones (NEGATIVE) mg/dL Urine Occult Blood (NEGATIVE) Urine Nitrite (NEGATIVE) Urine Bilirubin (NEGATIVE) Urine Urobilinogen (<2.0) EU/dL Ur Leukocyte Esterase (NEGATIVE) Urine RBC (0-2/HPF) Urine WBC (0-5/HPF) Ur Epithelial Cells (NONE-FEW) Urine Bacteria (NEGATIVE) SARS-CoV-2 RNA (RICHIE) NEGATIVE (NEGATIVE) 01/26/21 01/26/21 01/26/21 Range/Units 17:40 18:35 19:37 WBC (4.0-11.0) K/uL RBC (4.50-5.90) M/uL Hgb (13.0-17.0) g/dL Hct (38.0-50.0) % MCV (80.0-98.0) fL MCH (27.0-32.0) pg MCHC (31.0-37.0) g/dL RDW Std Deviation (28.0-62.0) fl RDW Coeff of Erika (11.0-15.0) % Plt Count (150-400) K/uL MPV (7.40-12.00) fL Neut % (Auto) (48.0-80.0) % Lymph % (Auto) (16.0-40.0) % [place] % (Auto) (0.0-15.0) % Eos % (Auto) (0.0-7.0) % Baso % (Auto) (0.0-1.5) % Neut # (Auto) (1.4-5.7) K/uL Lymph # (Auto) (0.6-2.4) K/uL [place] # (Auto) (0.0-0.8) K/uL Eos # (Auto) (0.0-0.7) K/uL Baso # (Auto) (0.0-0.1) K/uL Nucleated RBC % /100WBC Nucleated RBCs # K/uL Sodium 157 H (136-148) mmol/L Potassium 4.1 (3.5-5.1) mmol/L Chloride 118 H (98-107) mmol/L Carbon Dioxide 25.4 (21.0-32.0) mmol/L BUN 51 H (7.0-18.0) mg/dL Creatinine 1.7 H (0.8-1.3) mg/dL Est Cr Clr Drug Dosing 52.03 mL/min Estimated GFR (MDRD) 50.2 ml/min Glucose 327 H (74-106) mg/dL POC Glucose 205 H 156 H (70-99) mg/dL Calcium 9.4 (8.5-10.1) mg/dL Urine Color Urine Appearance Urine pH (5.0-8.0) Ur Specific [place] (1.001-1.035) Urine Protein (NEGATIVE) mg/dL Urine Glucose (UA) (NEGATIVE) mg/dL Urine Ketones (NEGATIVE) mg/dL Urine Occult Blood (NEGATIVE) Urine Nitrite (NEGATIVE) Urine Bilirubin (NEGATIVE) Urine Urobilinogen (<2.0) EU/dL Ur Leukocyte Esterase (NEGATIVE) Urine RBC (0-2/HPF) Urine WBC (0-5/HPF) Ur Epithelial Cells (NONE-FEW) Urine Bacteria (NEGATIVE) SARS-CoV-2 RNA (RICHIE) (NEGATIVE) 01/26/21 01/26/21 01/26/21 Range/Units 20:16 21:15 21:40 WBC (4.0-11.0) K/uL RBC (4.50-5.90) M/uL Hgb (13.0-17.0) g/dL Hct (38.0-50.0) % MCV (80.0-98.0) fL MCH (27.0-32.0) pg MCHC (31.0-37.0) g/dL RDW Std Deviation (28.0-62.0) fl RDW Coeff of Erika (11.0-15.0) % Plt Count (150-400) K/uL MPV (7.40-12.00) fL Neut % (Auto) (48.0-80.0) % Lymph % (Auto) (16.0-40.0) % [place] % (Auto) (0.0-15.0) % Eos % (Auto) (0.0-7.0) % Baso % (Auto) (0.0-1.5) % Neut # (Auto) (1.4-5.7) K/uL Lymph # (Auto) (0.6-2.4) K/uL [place] # (Auto) (0.0-0.8) K/uL Eos # (Auto) (0.0-0.7) K/uL Baso # (Auto) (0.0-0.1) K/uL Nucleated RBC % /100WBC Nucleated RBCs # K/uL Sodium (136-148) mmol/L Potassium (3.5-5.1) mmol/L Chloride (98-107) mmol/L Carbon Dioxide (21.0-32.0) mmol/L BUN (7.0-18.0) mg/dL Creatinine (0.8-1.3) mg/dL Est Cr Clr Drug Dosing mL/min Estimated GFR (MDRD) ml/min Glucose (74-106) mg/dL POC Glucose 151 H 130 H (70-99) mg/dL Calcium (8.5-10.1) mg/dL Urine Color RED Urine Appearance CLOUDY Urine pH 5.5 (5.0-8.0) Ur Specific [place] 1.025 (1.001-1.035) Urine Protein >=300 H (NEGATIVE) mg/dL Urine Glucose (UA) >=1000 (NEGATIVE) mg/dL Urine Ketones 40 H (NEGATIVE) mg/dL Urine Occult Blood LARGE H (NEGATIVE) Urine Nitrite POSITIVE H (NEGATIVE) Urine Bilirubin SMALL H (NEGATIVE) Urine Urobilinogen 0.2 (<2.0) EU/dL Ur Leukocyte Esterase NEGATIVE (NEGATIVE) Urine RBC 70-80 (0-2/HPF) Urine WBC 4-8 (0-5/HPF) Ur Epithelial Cells RARE (NONE-FEW) Urine Bacteria 4+ H (NEGATIVE) SARS-CoV-2 RNA (RICHIE) (NEGATIVE) 01/26/21 01/26/21 01/26/21 Range/Units 22:12 22:55 22:55 WBC (4.0-11.0) K/uL RBC (4.50-5.90) M/uL Hgb (13.0-17.0) g/dL Hct (38.0-50.0) % MCV (80.0-98.0) fL MCH (27.0-32.0) pg MCHC (31.0-37.0) g/dL RDW Std Deviation (28.0-62.0) fl RDW Coeff of Erika (11.0-15.0) % Plt Count (150-400) K/uL MPV (7.40-12.00) fL Neut % (Auto) (48.0-80.0) % Lymph % (Auto) (16.0-40.0) % [place] % (Auto) (0.0-15.0) % Eos % (Auto) (0.0-7.0) % Baso % (Auto) (0.0-1.5) % Neut # (Auto) (1.4-5.7) K/uL Lymph # (Auto) (0.6-2.4) K/uL [place] # (Auto) (0.0-0.8) K/uL Eos # (Auto) (0.0-0.7) K/uL Baso # (Auto) (0.0-0.1) K/uL Nucleated RBC % /100WBC Nucleated RBCs # K/uL Sodium 159 H (136-148) mmol/L Potassium 4.1 (3.5-5.1) mmol/L Chloride 121 H (98-107) mmol/L Carbon Dioxide 27.9 (21.0-32.0) mmol/L BUN 47 H (7.0-18.0) mg/dL Creatinine 1.4 H (0.8-1.3) mg/dL Est Cr Clr Drug Dosing 63.18 mL/min Estimated GFR (MDRD) > 60.0 ml/min Glucose 150 H (74-106) mg/dL POC Glucose 113 H 122 H (70-99) mg/dL Calcium 9.8 (8.5-10.1) mg/dL Urine Color Urine Appearance Urine pH (5.0-8.0) Ur Specific [place] (1.001-1.035) Urine Protein (NEGATIVE) mg/dL Urine Glucose (UA) (NEGATIVE) mg/dL Urine Ketones (NEGATIVE) mg/dL Urine Occult Blood (NEGATIVE) Urine Nitrite (NEGATIVE) Urine Bilirubin (NEGATIVE) Urine Urobilinogen (<2.0) EU/dL Ur Leukocyte Esterase (NEGATIVE) Urine RBC (0-2/HPF) Urine WBC (0-5/HPF) Ur Epithelial Cells (NONE-FEW) Urine Bacteria (NEGATIVE) SARS-CoV-2 RNA (RICHIE) (NEGATIVE) 01/27/21 01/27/21 01/27/21 Range/Units 00:03 02:02 04:04 WBC (4.0-11.0) K/uL RBC (4.50-5.90) M/uL Hgb (13.0-17.0) g/dL Hct (38.0-50.0) % MCV (80.0-98.0) fL MCH (27.0-32.0) pg MCHC (31.0-37.0) g/dL RDW Std Deviation (28.0-62.0) fl RDW Coeff of Erika (11.0-15.0) % Plt Count (150-400) K/uL MPV (7.40-12.00) fL Neut % (Auto) (48.0-80.0) % Lymph % (Auto) (16.0-40.0) % [place] % (Auto) (0.0-15.0) % Eos % (Auto) (0.0-7.0) % Baso % (Auto) (0.0-1.5) % Neut # (Auto) (1.4-5.7) K/uL Lymph # (Auto) (0.6-2.4) K/uL [place] # (Auto) (0.0-0.8) K/uL Eos # (Auto) (0.0-0.7) K/uL Baso # (Auto) (0.0-0.1) K/uL Nucleated RBC % /100WBC Nucleated RBCs # K/uL Sodium (136-148) mmol/L Potassium (3.5-5.1) mmol/L Chloride (98-107) mmol/L Carbon Dioxide (21.0-32.0) mmol/L BUN (7.0-18.0) mg/dL Creatinine (0.8-1.3) mg/dL Est Cr Clr Drug Dosing mL/min Estimated GFR (MDRD) ml/min Glucose (74-106) mg/dL POC Glucose 131 H 142 H 153 H (70-99) mg/dL Calcium (8.5-10.1) mg/dL Urine Color Urine Appearance Urine pH (5.0-8.0) Ur Specific [place] (1.001-1.035) Urine Protein (NEGATIVE) mg/dL Urine Glucose (UA) (NEGATIVE) mg/dL Urine Ketones (NEGATIVE) mg/dL Urine Occult Blood (NEGATIVE) Urine Nitrite (NEGATIVE) Urine Bilirubin (NEGATIVE) Urine Urobilinogen (<2.0) EU/dL Ur Leukocyte Esterase (NEGATIVE) Urine RBC (0-2/HPF) Urine WBC (0-5/HPF) Ur Epithelial Cells (NONE-FEW) Urine Bacteria (NEGATIVE) SARS-CoV-2 RNA (RICHIE) (NEGATIVE) 01/27/21 01/27/21 01/27/21 Range/Units 05:15 05:15 05:15 WBC 7.81 (4.0-11.0) K/uL RBC 4.07 L (4.50-5.90) M/uL Hgb 10.5 L (13.0-17.0) g/dL Hct 34.1 L (38.0-50.0) % MCV 83.8 (80.0-98.0) fL MCH 25.8 L (27.0-32.0) pg MCHC 30.8 L (31.0-37.0) g/dL RDW Std Deviation 46.0 (28.0-62.0) fl RDW Coeff of Erika 15 (11.0-15.0) % Plt Count 247 (150-400) K/uL MPV 9.90 (7.40-12.00) fL Neut % (Auto) 82.4 H (48.0-80.0) % Lymph % (Auto) 10.9 L (16.0-40.0) % [place] % (Auto) 6.3 (0.0-15.0) % Eos % (Auto) 0.3 (0.0-7.0) % Baso % (Auto) 0.1 (0.0-1.5) % Neut # (Auto) 6.4 H (1.4-5.7) K/uL Lymph # (Auto) 0.9 (0.6-2.4) K/uL [place] # (Auto) 0.5 (0.0-0.8) K/uL Eos # (Auto) 0.0 (0.0-0.7) K/uL Baso # (Auto) 0.0 (0.0-0.1) K/uL Nucleated RBC % 0.0 /100WBC Nucleated RBCs # 0 K/uL Sodium 159 H (136-148) mmol/L Potassium 4.1 (3.5-5.1) mmol/L Chloride 119 H (98-107) mmol/L Carbon Dioxide 29.4 (21.0-32.0) mmol/L BUN 46 H (7.0-18.0) mg/dL Creatinine 1.4 H (0.8-1.3) mg/dL Est Cr Clr Drug Dosing 63.18 mL/min Estimated GFR (MDRD) > 60.0 ml/min Glucose 152 H (74-106) mg/dL POC Glucose 131 H (70-99) mg/dL Calcium 9.2 (8.5-10.1) mg/dL Urine Color Urine Appearance Urine pH (5.0-8.0) Ur Specific [place] (1.001-1.035) Urine Protein (NEGATIVE) mg/dL Urine Glucose (UA) (NEGATIVE) mg/dL Urine Ketones (NEGATIVE) mg/dL Urine Occult Blood (NEGATIVE) Urine Nitrite (NEGATIVE) Urine Bilirubin (NEGATIVE) Urine Urobilinogen (<2.0) EU/dL Ur Leukocyte Esterase (NEGATIVE) Urine RBC (0-2/HPF) Urine WBC (0-5/HPF) Ur Epithelial Cells (NONE-FEW) Urine Bacteria (NEGATIVE) SARS-CoV-2 RNA (RICHIE) (NEGATIVE) 01/27/21 01/27/21 01/27/21 Range/Units 07:01 09:01 11:05 WBC (4.0-11.0) K/uL RBC (4.50-5.90) M/uL Hgb (13.0-17.0) g/dL Hct (38.0-50.0) % MCV (80.0-98.0) fL MCH (27.0-32.0) pg MCHC (31.0-37.0) g/dL RDW Std Deviation (28.0-62.0) fl RDW Coeff of Eri[place] (11.0-15.0) % Plt Count (150-400) K/uL MPV (7.40-12.00) fL Neut % (Auto) (48.0-80.0) % Lymph % (Auto) (16.0-40.0) % [place] % (Auto) (0.0-15.0) % Eos % (Auto) (0.0-7.0) % Baso % (Auto) (0.0-1.5) % Neut # (Auto) (1.4-5.7) K/uL Lymph # (Auto) (0.6-2.4) K/uL [place] # (Auto) (0.0-0.8) K/uL Eos # (Auto) (0.0-0.7) K/uL Baso # (Auto) (0.0-0.1) K/uL Nucleated RBC % /100WBC Nucleated RBCs # K/uL Sodium 155 H (136-148) mmol/L Potassium 3.8 (3.5-5.1) mmol/L Chloride 117 H (98-107) mmol/L Carbon Dioxide 31.1 (21.0-32.0) mmol/L BUN 41 H (7.0-18.0) mg/dL Creatinine 1.2 (0.8-1.3) mg/dL Est Cr Clr Drug Dosing 73.71 mL/min Estimated GFR (MDRD) > 60.0 ml/min Glucose 164 H (74-106) mg/dL POC Glucose 130 H 128 H (70-99) mg/dL Calcium 8.9 (8.5-10.1) mg/dL Urine Color Urine Appearance Urine pH (5.0-8.0) Ur Specific [place] (1.001-1.035) Urine Protein (NEGATIVE) mg/dL Urine Glucose (UA) (NEGATIVE) mg/dL Urine Ketones (NEGATIVE) mg/dL Urine Occult Blood (NEGATIVE) Urine Nitrite (NEGATIVE) Urine Bilirubin (NEGATIVE) Urine Urobilinogen (<2.0) EU/dL Ur Leukocyte Esterase (NEGATIVE) Urine RBC (0-2/HPF) Urine WBC (0-5/HPF) Ur Epithelial Cells (NONE-FEW) Urine Bacteria (NEGATIVE) SARS-CoV-2 RNA (RICHIE) (NEGATIVE) 01/27/21 01/27/21 01/27/21 Range/Units 11:05 13:37 15:41 WBC (4.0-11.0) K/uL RBC (4.50-5.90) M/uL Hgb (13.0-17.0) g/dL Hct (38.0-50.0) % MCV (80.0-98.0) fL MCH (27.0-32.0) pg MCHC (31.0-37.0) g/dL RDW Std Deviation (28.0-62.0) fl RDW Coeff of Erika (11.0-15.0) % Plt Count (150-400) K/uL MPV (7.40-12.00) fL Neut % (Auto) (48.0-80.0) % Lymph % (Auto) (16.0-40.0) % [place] % (Auto) (0.0-15.0) % Eos % (Auto) (0.0-7.0) % Baso % (Auto) (0.0-1.5) % Neut # (Auto) (1.4-5.7) K/uL Lymph # (Auto) (0.6-2.4) K/uL [place] # (Auto) (0.0-0.8) K/uL Eos # (Auto) (0.0-0.7) K/uL Baso # (Auto) (0.0-0.1) K/uL Nucleated RBC % /100WBC Nucleated RBCs # K/uL Sodium (136-148) mmol/L Potassium (3.5-5.1) mmol/L Chloride (98-107) mmol/L Carbon Dioxide (21.0-32.0) mmol/L BUN (7.0-18.0) mg/dL Creatinine (0.8-1.3) mg/dL Est Cr Clr Drug Dosing mL/min Estimated GFR (MDRD) ml/min Glucose (74-106) mg/dL POC Glucose 133 H 154 H 123 H (70-99) mg/dL Calcium (8.5-10.1) mg/dL Urine Color Urine Appearance Urine pH (5.0-8.0) Ur Specific [place] (1.001-1.035) Urine Protein (NEGATIVE) mg/dL Urine Glucose (UA) (NEGATIVE) mg/dL Urine Ketones (NEGATIVE) mg/dL Urine Occult Blood (NEGATIVE) Urine Nitrite (NEGATIVE) Urine Bilirubin (NEGATIVE) Urine Urobilinogen (<2.0) EU/dL Ur Leukocyte Esterase (NEGATIVE) Urine RBC (0-2/HPF) Urine WBC (0-5/HPF) Ur Epithelial Cells (NONE-FEW) Urine Bacteria (NEGATIVE) SARS-CoV-2 RNA (RICHIE) (NEGATIVE) Med Orders - Current: Current Medications Dextrose/Water (50% Dextrose In Water 50 Ml Syringe) 50 ml IVPUSH ASDIRECTED PRN PRN Reason: Hypoglycemia Enoxaparin Sodium (Enoxaparin 40 Mg/0.4 Ml Syringe) 40 mg SUBCUT Q24H [facility] Last Admin: 01/26/21 17:34 Dose: 40 mg Documented by: Glucagon (Glucagon,Human Recombinant 1 Mg Vial) 1 mg IM ASDIRECTED PRN PRN Reason: Hypoglycemia Insulin Regular in 0.9 % NACL (100 unit/ Premix) 100 mls @ 6 mls/hr IV TITRATE [facility]; Protocol Last Titration: 01/27/21 16:00 Dose: 1 unit/hr, 1 mls/hr Documented by: Dextrose/Water (Dextrose 5% In Water) 1,000 mls @ 100 mls/hr IV ASDIRECTED [facility] Last Admin: 01/27/21 08:18 Dose: 100 mls/hr Documented by: Ceftriaxone Sodium/Dextrose 1 (gm/ Premix) 50 mls @ 100 mls/hr IV Q24H [facility] Last Admin: 01/26/21 22:40 Dose: 100 mls/hr Documented by: Metoclopramide HCl (Metoclopramide 10 Mg Tab) 10 mg PO TID PRN PRN Reason: Nausea/Vomiting Ondansetron HCl (Ondansetron 4 Mg Tab.Dis) 4 mg PO Q6H PRN PRN Reason: Nausea Ondansetron HCl (Ondansetron 4 Mg/2 Ml Sdv) 4 mg IVPUSH Q6H PRN PRN Reason: Nausea/Vomiting Last Admin: 01/27/21 11:08 Dose: 4 mg Documented by: Pantoprazole Sodium (Pantoprazole 40 Mg/10 Ml Syringe) 40 mg IVPUSH Q24H [facility] Last Admin: 01/26/21 16:00 Dose: 40 mg Documented by: Buprenorphine Hcl/Naloxone Hcl 1 Each Tab.Subl 8/2 Mg 1 each PO TID PRN PRN Reason: WITHDRAWAL Sodium Chloride (Sodium Chloride 0.9% 10 Ml Syringe) 10 ml FLUSH ASDIRECTED PRN PRN Reason: Keep Vein Open Last Admin: 01/26/21 14:32 Dose: 10 ml Documented by: Sodium Chloride (Sodium Chloride 0.9% 2.5 Ml Syringe) 2.5 ml FLUSH ASDIRECTED PRN PRN Reason: Keep Vein Open Last Admin: 01/26/21 14:32 Dose: 2.5 ml Documented by: Discontinued Medications Diphenhydramine HCl (Diphenhydramine 50 Mg/Ml Sdv) 25 mg IVPUSH ONETIME ONE Stop: 01/26/21 14:08 Last Admin: 01/26/21 14:31 Dose: 25 mg Documented by: Diphenhydramine HCl (Diphenhydramine 25 Mg Cap) 25 mg PO ONETIME ONE Stop: 01/26/21 21:19 Last Admin: 01/26/21 21:48 Dose: 25 mg Documented by: Sodium Chloride (Normal Saline) 1,000 mls @ 999 mls/hr IV ASDIRECTED [facility] Last Admin: 01/26/21 14:32 Dose: 999 mls/hr Documented by: Sodium Chloride (Normal Saline) 1,000 mls @ 999 mls/hr IV ASDIRECTED [facility] Insulin Human Regular 100 unit (/ Sodium Chloride) 100 mls @ 6 mls/hr IV TITRATE [facility]; Protocol Lactated Ringer's (Ringers, Lactated) 1,000 mls @ 999 mls/hr IV ASDIRECTED [facility] Last Admin: 01/26/21 15:59 Dose: 999 mls/hr Documented by: Lactated Ringer's (Ringers, Lactated) 1,000 mls @ 150 mls/hr IV ASDIRECTED [facility] Last Infusion: 01/26/21 22:13 Dose: 0 mls/hr Documented by: Insulin Aspart (Insulin Aspart 100 Units/Ml 10 Ml Vial) 10 unit SUBCUT STAT STA Stop: 01/26/21 15:00 Last Admin: 01/26/21 16:01 Dose: Not Given Documented by: Metoclopramide HCl (Metoclopramide 10 Mg/2 Ml Sdv) 10 mg IVPUSH ONETIME ONE Stop: 01/26/21 14:08 Last Admin: 01/26/21 14:31 Dose: 10 mg Documented by: Non-Formulary Medication (Buprenorphine Hcl/Naloxone Hcl) 3 tab SL TID PRN PRN Reason: Abdominal Pain Ondansetron HCl (Ondansetron 4 Mg/2 Ml Sdv) Confirm Administered Dose 4 mg .ROUTE .STK-MED ONE Stop: 01/26/21 20:50 Last Admin: 01/26/21 21:47 Dose: Not Given Documented by: Ondansetron HCl (Ondansetron 4 Mg/2 Ml Sdv) 4 mg IVPUSH Q4H PRN PRN Reason: Nausea/Vomiting Last Admin: 01/26/21 21:47 Dose: 4 mg Documented by: - Exam General: Alert, Oriented Lungs: Clear to Auscultation, Normal Respiratory Effort Cardiovascular: Regular Rate, Regular Rhythm GI/Abdominal Exam: Soft, Non-Tender, No Distention Extremities: Non-Tender, No Pedal Edema Skin: Warm, Dry, Intact Neurological: No New Focal Deficit - Patient Data Lab Results Last 24 hrs: Laboratory Results - last 24 hr 01/26/21 01/26/21 01/26/21 Range/Units 16:05 16:30 17:35 WBC (4.0-11.0) K/uL RBC (4.50-5.90) M/uL Hgb (13.0-17.0) g/dL Hct (38.0-50.0) % MCV (80.0-98.0) fL MCH (27.0-32.0) pg MCHC (31.0-37.0) g/dL RDW Std Deviation (28.0-62.0) fl RDW Coeff of Erika (11.0-15.0) % Plt Count (150-400) K/uL MPV (7.40-12.00) fL Neut % (Auto) (48.0-80.0) % Lymph % (Auto) (16.0-40.0) % [place] % (Auto) (0.0-15.0) % Eos % (Auto) (0.0-7.0) % Baso % (Auto) (0.0-1.5) % Neut # (Auto) (1.4-5.7) K/uL Lymph # (Auto) (0.6-2.4) K/uL [place] # (Auto) (0.0-0.8) K/uL Eos # (Auto) (0.0-0.7) K/uL Baso # (Auto) (0.0-0.1) K/uL Nucleated RBC % /100WBC Nucleated RBCs # K/uL Sodium (136-148) mmol/L Potassium (3.5-5.1) mmol/L Chloride (98-107) mmol/L Carbon Dioxide (21.0-32.0) mmol/L BUN (7.0-18.0) mg/dL Creatinine (0.8-1.3) mg/dL Est Cr Clr Drug Dosing mL/min Estimated GFR (MDRD) ml/min Glucose (74-106) mg/dL POC Glucose 340 H 278 H (70-99) mg/dL Calcium (8.5-10.1) mg/dL Urine Color Urine Appearance Urine pH (5.0-8.0) Ur Specific [place] (1.001-1.035) Urine Protein (NEGATIVE) mg/dL Urine Glucose (UA) (NEGATIVE) mg/dL Urine Ketones (NEGATIVE) mg/dL Urine Occult Blood (NEGATIVE) Urine Nitrite (NEGATIVE) Urine Bilirubin (NEGATIVE) Urine Urobilinogen (<2.0) EU/dL Ur Leukocyte Esterase (NEGATIVE) Urine RBC (0-2/HPF) Urine WBC (0-5/HPF) Ur Epithelial Cells (NONE-FEW) Urine Bacteria (NEGATIVE) SARS-CoV-2 RNA (RICHIE) NEGATIVE (NEGATIVE) 01/26/21 01/26/21 01/26/21 Range/Units 17:40 18:35 19:37 WBC (4.0-11.0) K/uL RBC (4.50-5.90) M/uL Hgb (13.0-17.0) g/dL Hct (38.0-50.0) % MCV (80.0-98.0) fL MCH (27.0-32.0) pg MCHC (31.0-37.0) g/dL RDW Std Deviation (28.0-62.0) fl RDW Coeff of [place] (11.0-15.0) % Plt Count (150-400) K/uL MPV (7.40-12.00) fL Neut % (Auto) (48.0-80.0) % Lymph % (Auto) (16.0-40.0) % [place] % (Auto) (0.0-15.0) % Eos % (Auto) (0.0-7.0) % Baso % (Auto) (0.0-1.5) % Neut # (Auto) (1.4-5.7) K/uL Lymph # (Auto) (0.6-2.4) K/uL [place] # (Auto) (0.0-0.8) K/uL Eos # (Auto) (0.0-0.7) K/uL Baso # (Auto) (0.0-0.1) K/uL Nucleated RBC % /100WBC Nucleated RBCs # K/uL Sodium 157 H (136-148) mmol/L Potassium 4.1 (3.5-5.1) mmol/L Chloride 118 H (98-107) mmol/L Carbon Dioxide 25.4 (21.0-32.0) mmol/L BUN 51 H (7.0-18.0) mg/dL Creatinine 1.7 H (0.8-1.3) mg/dL Est Cr Clr Drug Dosing 52.03 mL/min Estimated GFR (MDRD) 50.2 ml/min Glucose 327 H (74-106) mg/dL POC Glucose 205 H 156 H (70-99) mg/dL Calcium 9.4 (8.5-10.1) mg/dL Urine Color Urine Appearance Urine pH (5.0-8.0) Ur Specific [place] (1.001-1.035) Urine Protein (NEGATIVE) mg/dL Urine Glucose (UA) (NEGATIVE) mg/dL Urine Ketones (NEGATIVE) mg/dL Urine Occult Blood (NEGATIVE) Urine Nitrite (NEGATIVE) Urine Bilirubin (NEGATIVE) Urine Urobilinogen (<2.0) EU/dL Ur Leukocyte Esterase (NEGATIVE) Urine RBC (0-2/HPF) Urine WBC (0-5/HPF) Ur Epithelial Cells (NONE-FEW) Urine Bacteria (NEGATIVE) SARS-CoV-2 RNA (RICHIE) (NEGATIVE) 01/26/21 01/26/21 01/26/21 Range/Units 20:16 21:15 21:40 WBC (4.0-11.0) K/uL RBC (4.50-5.90) M/uL Hgb (13.0-17.0) g/dL Hct (38.0-50.0) % MCV (80.0-98.0) fL MCH (27.0-32.0) pg MCHC (31.0-37.0) g/dL RDW Std Deviation (28.0-62.0) fl RDW Coeff of Erika (11.0-15.0) % Plt Count (150-400) K/uL MPV (7.40-12.00) fL Neut % (Auto) (48.0-80.0) % Lymph % (Auto) (16.0-40.0) % [place] % (Auto) (0.0-15.0) % Eos % (Auto) (0.0-7.0) % Baso % (Auto) (0.0-1.5) % Neut # (Auto) (1.4-5.7) K/uL Lymph # (Auto) (0.6-2.4) K/uL [place] # (Auto) (0.0-0.8) K/uL Eos # (Auto) (0.0-0.7) K/uL Baso # (Auto) (0.0-0.1) K/uL Nucleated RBC % /100WBC Nucleated RBCs # K/uL Sodium (136-148) mmol/L Potassium (3.5-5.1) mmol/L Chloride (98-107) mmol/L Carbon Dioxide (21.0-32.0) mmol/L BUN (7.0-18.0) mg/dL Creatinine (0.8-1.3) mg/dL Est Cr Clr Drug Dosing mL/min Estimated GFR (MDRD) ml/min Glucose (74-106) mg/dL POC Glucose 151 H 130 H (70-99) mg/dL Calcium (8.5-10.1) mg/dL Urine Color RED Urine Appearance CLOUDY Urine pH 5.5 (5.0-8.0) Ur Specific [place] 1.025 (1.001-1.035) Urine Protein >=300 H (NEGATIVE) mg/dL Urine Glucose (UA) >=1000 (NEGATIVE) mg/dL Urine Ketones 40 H (NEGATIVE) mg/dL Urine Occult Blood LARGE H (NEGATIVE) Urine Nitrite POSITIVE H (NEGATIVE) Urine Bilirubin SMALL H (NEGATIVE) Urine Urobilinogen 0.2 (<2.0) EU/dL Ur Leukocyte Esterase NEGATIVE (NEGATIVE) Urine RBC 70-80 (0-2/HPF) Urine WBC 4-8 (0-5/HPF) Ur Epithelial Cells RARE (NONE-FEW) Urine Bacteria 4+ H (NEGATIVE) SARS-CoV-2 RNA (RICHIE) (NEGATIVE) 01/26/21 01/26/21 01/26/21 Range/Units 22:12 22:55 22:55 WBC (4.0-11.0) K/uL RBC (4.50-5.90) M/uL Hgb (13.0-17.0) g/dL Hct (38.0-50.0) % MCV (80.0-98.0) fL MCH (27.0-32.0) pg MCHC (31.0-37.0) g/dL RDW Std Deviation (28.0-62.0) fl RDW Coeff of Erika (11.0-15.0) % Plt Count (150-400) K/uL MPV (7.40-12.00) fL Neut % (Auto) (48.0-80.0) % Lymph % (Auto) (16.0-40.0) % [place] % (Auto) (0.0-15.0) % Eos % (Auto) (0.0-7.0) % Baso % (Auto) (0.0-1.5) % Neut # (Auto) (1.4-5.7) K/uL Lymph # (Auto) (0.6-2.4) K/uL [place] # (Auto) (0.0-0.8) K/uL Eos # (Auto) (0.0-0.7) K/uL Baso # (Auto) (0.0-0.1) K/uL Nucleated RBC % /100WBC Nucleated RBCs # K/uL Sodium 159 H (136-148) mmol/L Potassium 4.1 (3.5-5.1) mmol/L Chloride 121 H (98-107) mmol/L Carbon Dioxide 27.9 (21.0-32.0) mmol/L BUN 47 H (7.0-18.0) mg/dL Creatinine 1.4 H (0.8-1.3) mg/dL Est Cr Clr Drug Dosing 63.18 mL/min Estimated GFR (MDRD) > 60.0 ml/min Glucose 150 H (74-106) mg/dL POC Glucose 113 H 122 H (70-99) mg/dL Calcium 9.8 (8.5-10.1) mg/dL Urine Color Urine Appearance Urine pH (5.0-8.0) Ur Specific [place] (1.001-1.035) Urine Protein (NEGATIVE) mg/dL Urine Glucose (UA) (NEGATIVE) mg/dL Urine Ketones (NEGATIVE) mg/dL Urine Occult Blood (NEGATIVE) Urine Nitrite (NEGATIVE) Urine Bilirubin (NEGATIVE) Urine Urobilinogen (<2.0) EU/dL Ur Leukocyte Esterase (NEGATIVE) Urine RBC (0-2/HPF) Urine WBC (0-5/HPF) Ur Epithelial Cells (NONE-FEW) Urine Bacteria (NEGATIVE) SARS-CoV-2 RNA (RICHIE) (NEGATIVE) 01/27/21 01/27/21 01/27/21 Range/Units 00:03 02:02 04:04 WBC (4.0-11.0) K/uL RBC (4.50-5.90) M/uL Hgb (13.0-17.0) g/dL Hct (38.0-50.0) % MCV (80.0-98.0) fL MCH (27.0-32.0) pg MCHC (31.0-37.0) g/dL RDW Std Deviation (28.0-62.0) fl RDW Coeff of Erika (11.0-15.0) % Plt Count (150-400) K/uL MPV (7.40-12.00) fL Neut % (Auto) (48.0-80.0) % Lymph % (Auto) (16.0-40.0) % [place] % (Auto) (0.0-15.0) % Eos % (Auto) (0.0-7.0) % Baso % (Auto) (0.0-1.5) % Neut # (Auto) (1.4-5.7) K/uL Lymph # (Auto) (0.6-2.4) K/uL [place] # (Auto) (0.0-0.8) K/uL Eos # (Auto) (0.0-0.7) K/uL Baso # (Auto) (0.0-0.1) K/uL Nucleated RBC % /100WBC Nucleated RBCs # K/uL Sodium (136-148) mmol/L Potassium (3.5-5.1) mmol/L Chloride (98-107) mmol/L Carbon Dioxide (21.0-32.0) mmol/L BUN (7.0-18.0) mg/dL Creatinine (0.8-1.3) mg/dL Est Cr Clr Drug Dosing mL/min Estimated GFR (MDRD) ml/min Glucose (74-106) mg/dL POC Glucose 131 H 142 H 153 H (70-99) mg/dL Calcium (8.5-10.1) mg/dL Urine Color Urine Appearance Urine pH (5.0-8.0) Ur Specific [place] (1.001-1.035) Urine Protein (NEGATIVE) mg/dL Urine Glucose (UA) (NEGATIVE) mg/dL Urine Ketones (NEGATIVE) mg/dL Urine Occult Blood (NEGATIVE) Urine Nitrite (NEGATIVE) Urine Bilirubin (NEGATIVE) Urine Urobilinogen (<2.0) EU/dL Ur Leukocyte Esterase (NEGATIVE) Urine RBC (0-2/HPF) Urine WBC (0-5/HPF) Ur Epithelial Cells (NONE-FEW) Urine Bacteria (NEGATIVE) SARS-CoV-2 RNA (RICHIE) (NEGATIVE) 01/27/21 01/27/21 01/27/21 Range/Units 05:15 05:15 05:15 WBC 7.81 (4.0-11.0) K/uL RBC 4.07 L (4.50-5.90) M/uL Hgb 10.5 L (13.0-17.0) g/dL Hct 34.1 L (38.0-50.0) % MCV 83.8 (80.0-98.0) fL MCH 25.8 L (27.0-32.0) pg MCHC 30.8 L (31.0-37.0) g/dL RDW Std Deviation 46.0 (28.0-62.0) fl RDW Coeff of Erika 15 (11.0-15.0) % Plt Count 247 (150-400) K/uL MPV 9.90 (7.40-12.00) fL Neut % (Auto) 82.4 H (48.0-80.0) % Lymph % (Auto) 10.9 L (16.0-40.0) % [place] % (Auto) 6.3 (0.0-15.0) % Eos % (Auto) 0.3 (0.0-7.0) % Baso % (Auto) 0.1 (0.0-1.5) % Neut # (Auto) 6.4 H (1.4-5.7) K/uL Lymph # (Auto) 0.9 (0.6-2.4) K/uL [place] # (Auto) 0.5 (0.0-0.8) K/uL Eos # (Auto) 0.0 (0.0-0.7) K/uL Baso # (Auto) 0.0 (0.0-0.1) K/uL Nucleated RBC % 0.0 /100WBC Nucleated RBCs # 0 K/uL Sodium 159 H (136-148) mmol/L Potassium 4.1 (3.5-5.1) mmol/L Chloride 119 H (98-107) mmol/L Carbon Dioxide 29.4 (21.0-32.0) mmol/L BUN 46 H (7.0-18.0) mg/dL Creatinine 1.4 H (0.8-1.3) mg/dL Est Cr Clr Drug Dosing 63.18 mL/min Estimated GFR (MDRD) > 60.0 ml/min Glucose 152 H (74-106) mg/dL POC Glucose 131 H (70-99) mg/dL Calcium 9.2 (8.5-10.1) mg/dL Urine Color Urine Appearance Urine pH (5.0-8.0) Ur Specific [place] (1.001-1.035) Urine Protein (NEGATIVE) mg/dL Urine Glucose (UA) (NEGATIVE) mg/dL Urine Ketones (NEGATIVE) mg/dL Urine Occult Blood (NEGATIVE) Urine Nitrite (NEGATIVE) Urine Bilirubin (NEGATIVE) Urine Urobilinogen (<2.0) EU/dL Ur Leukocyte Esterase (NEGATIVE) Urine RBC (0-2/HPF) Urine WBC (0-5/HPF) Ur Epithelial Cells (NONE-FEW) Urine Bacteria (NEGATIVE) SARS-CoV-2 RNA (RICHIE) (NEGATIVE) 01/27/21 01/27/21 01/27/21 Range/Units 07:01 09:01 11:05 WBC (4.0-11.0) K/uL RBC (4.50-5.90) M/uL Hgb (13.0-17.0) g/dL Hct (38.0-50.0) % MCV (80.0-98.0) fL MCH (27.0-32.0) pg MCHC (31.0-37.0) g/dL RDW Std Deviation (28.0-62.0) fl RDW Coeff of Erika (11.0-15.0) % Plt Count (150-400) K/uL MPV (7.40-12.00) fL Neut % (Auto) (48.0-80.0) % Lymph % (Auto) (16.0-40.0) % [place] % (Auto) (0.0-15.0) % Eos % (Auto) (0.0-7.0) % Baso % (Auto) (0.0-1.5) % Neut # (Auto) (1.4-5.7) K/uL Lymph # (Auto) (0.6-2.4) K/uL [place] # (Auto) (0.0-0.8) K/uL Eos # (Auto) (0.0-0.7) K/uL Baso # (Auto) (0.0-0.1) K/uL Nucleated RBC % /100WBC Nucleated RBCs # K/uL Sodium 155 H (136-148) mmol/L Potassium 3.8 (3.5-5.1) mmol/L Chloride 117 H (98-107) mmol/L Carbon Dioxide 31.1 (21.0-32.0) mmol/L BUN 41 H (7.0-18.0) mg/dL Creatinine 1.2 (0.8-1.3) mg/dL Est Cr Clr Drug Dosing 73.71 mL/min Estimated GFR (MDRD) > 60.0 ml/min Glucose 164 H (74-106) mg/dL POC Glucose 130 H 128 H (70-99) mg/dL Calcium 8.9 (8.5-10.1) mg/dL Urine Color Urine Appearance Urine pH (5.0-8.0) Ur Specific [place] (1.001-1.035) Urine Protein (NEGATIVE) mg/dL Urine Glucose (UA) (NEGATIVE) mg/dL Urine Ketones (NEGATIVE) mg/dL Urine Occult Blood (NEGATIVE) Urine Nitrite (NEGATIVE) Urine Bilirubin (NEGATIVE) Urine Urobilinogen (<2.0) EU/dL Ur Leukocyte Esterase (NEGATIVE) Urine RBC (0-2/HPF) Urine WBC (0-5/HPF) Ur Epithelial Cells (NONE-FEW) Urine Bacteria (NEGATIVE) SARS-CoV-2 RNA (RICHIE) (NEGATIVE) 01/27/21 01/27/21 01/27/21 Range/Units 11:05 13:37 15:41 WBC (4.0-11.0) K/uL RBC (4.50-5.90) M/uL Hgb (13.0-17.0) g/dL Hct (38.0-50.0) % MCV (80.0-98.0) fL MCH (27.0-32.0) pg MCHC (31.0-37.0) g/dL RDW Std Deviation (28.0-62.0) fl RDW Coeff of Erika (11.0-15.0) % Plt Count (150-400) K/uL MPV (7.40-12.00) fL Neut % (Auto) (48.0-80.0) % Lymph % (Auto) (16.0-40.0) % [place] % (Auto) (0.0-15.0) % Eos % (Auto) (0.0-7.0) % Baso % (Auto) (0.0-1.5) % Neut # (Auto) (1.4-5.7) K/uL Lymph # (Auto) (0.6-2.4) K/uL [place] # (Auto) (0.0-0.8) K/uL Eos # (Auto) (0.0-0.7) K/uL Baso # (Auto) (0.0-0.1) K/uL Nucleated RBC % /100WBC Nucleated RBCs # K/uL Sodium (136-148) mmol/L Potassium (3.5-5.1) mmol/L Chloride (98-107) mmol/L Carbon Dioxide (21.0-32.0) mmol/L BUN (7.0-18.0) mg/dL Creatinine (0.8-1.3) mg/dL Est Cr Clr Drug Dosing mL/min Estimated GFR (MDRD) ml/min Glucose (74-106) mg/dL POC Glucose 133 H 154 H 123 H (70-99) mg/dL Calcium (8.5-10.1) mg/dL Urine Color Urine Appearance Urine pH (5.0-8.0) Ur Specific [place] (1.001-1.035) Urine Protein (NEGATIVE) mg/dL Urine Glucose (UA) (NEGATIVE) mg/dL Urine Ketones (NEGATIVE) mg/dL Urine Occult Blood (NEGATIVE) Urine Nitrite (NEGATIVE) Urine Bilirubin (NEGATIVE) Urine Urobilinogen (<2.0) EU/dL Ur Leukocyte Esterase (NEGATIVE) Urine RBC (0-2/HPF) Urine WBC (0-5/HPF) Ur Epithelial Cells (NONE-FEW) Urine Bacteria (NEGATIVE) SARS-CoV-2 RNA (RICHIE) (NEGATIVE) Result Diagrams: 01/27/21 05:15 01/27/21 11:05 Sepsis Event Note - Evaluation Sepsis Screening Result: No Definite Risk - Focused Exam Vital Signs: Vital Signs Temp Resp BP Pulse Ox Pulse Ox 01/27/21 15:55 99 01/27/21 15:00 11 L 91/50 L 94 L 01/27/21 14:00 15 114/84 97 01/27/21 13:00 12 111/81 96 01/27/21 12:00 36.4 C 13 124/85 97 01/27/21 11:00 16 131/96 H 96 01/27/21 10:00 17 129/93 H 96 01/27/21 09:00 16 138/94 H 97 01/27/21 08:00 36.1 C 14 117/82 97 01/27/21 07:00 19 125/81 95 01/27/21 06:00 14 139/98 H 95 01/27/21 05:00 14 139/98 H 95 - Problem List & Annotations (1) DKA, type 1 SNOMED Code(s): 13604852, 89325755 Code(s): E10.10 - TYPE 1 DIABETES MELLITUS WITH KETOACIDOSIS WITHOUT COMA Status: Acute Current Visit: Yes (2) Hypernatremia SNOMED Code(s): 225203972 Code(s): E87.0 - HYPEROSMOLALITY AND HYPERNATREMIA Status: Acute Current Visit: Yes (3) Dehydration SNOMED Code(s): 11660835 Code(s): E86.0 - DEHYDRATION Status: Acute Current Visit: Yes (4) Diabetic gastroparesis SNOMED Code(s): 382869438 Code(s): E11.43 - TYPE 2 DIABETES W DIABETIC AUTONOMIC (POLY)NEUROPATHY; K31.84 - GASTROPARESIS Status: Acute Priority: High Current Visit: Yes (5) Diabetic ketoacidosis SNOMED Code(s): 388278322, 538365568 Code(s): E11.10 - TYPE 2 DIABETES MELLITUS WITH KETOACIDOSIS WITHOUT COMA Status: Acute Current Visit: Yes Qualifiers: Diabetes mellitus type: type 1 Diabetes mellitus complication detail: without coma Qualified Code(s): E10.10 - Type 1 diabetes mellitus with ketoacidosis without coma - Problem List Review Problem List Initiated/Reviewed/Updated: Yes - My Orders Last 24 Hours: My Active Orders 01/26/21 15:45 Insulin Regular in 0.9 % NACL [Myxredlin in NS 100 UNIT/100 ML] 100 unit Premix Bag 1 bag IV TITRATE 01/26/21 15:53 Metoclopramide [Reglan] 10 mg PO TID PRN Ondansetron [Zofran ODT] 4 mg PO Q6H PRN 01/26/21 15:55 Oxygen Therapy [RC] PRN Up ad Romy [RC] ASDIRECTED VTE/DVT Education [RC] PER UNIT ROUTINE Vital Signs [RC] Q1H Resuscitation Status Routine 01/26/21 16:00 Enoxaparin [Lovenox] 40 mg SUBCUT Q24H Pantoprazole [ProTONIX] 40 mg IVPUSH Q24H 12/17/21 16:45 Patient's Own Medication [Ptom] 1 each PO TID PRN 01/26/21 21:40 CULTURE URINE [MREF] Stat 01/26/21 22:30 cefTRIAXone [Rocephin in Dextrose,Iso-Osm 1 GM/50 ML] 1 gm Premix Bag 1 bag IV Q24H 01/27/21 15:38 BMP [BASIC METABOLIC PANEL,BMP] [CHEM] Routine 01/27/21 Dinner Clear Liquid Diet [DIET] 01/28/21 05:11 BASIC METABOLIC PANEL,BMP [CHEM] AM CBC WITH AUTO DIFF [HEME] AM 01/29/21 05:11 CBC WITH AUTO DIFF [HEME] AM - Plan Plan:: 25 yo male with pmh of DM admitted for dehydration, hypernatremia, gastroparesis and DKA. DKA: treating with insulin drip, trending BMP Hypernatremia: on D5W UTI; on Rocephin Gastroparesis: antiemetics as needed, will resume Suboxone Neurogenic bladder: will bladder scan q 6hrs
[2021-01-27] MEDS: Enoxaparin 40 MG/0.4 ML Syringe SUBCUT SCH (16:26)
[2021-01-27] MEDS: Ondansetron 4 MG Tab.DIS PO PRN ×2 (16:27→21:54)
[2021-01-27] MEDS: Pantoprazole 40 MG/10 ML Syringe IVPUSH SCH (16:38)
[2021-01-27 16:46] LABS: BLOOD UREA NITROGEN,BUN 38 mg/dL (7.0-18.0); CARBON DIOXIDE,CO2 31.9 mmol/L (21.0-32.0); CHLORIDE,CL 117 mmol/L (98-107); GLUCOSE RANDOM 128 mg/dL (74-106); POTASSIUM,K 3.9 mmol/L (3.5-5.1); SODIUM,NA 155 mmol/L (136-148)
--- NOTE | 2021-01-27 18:26 | PN ---
[facility] Physician - Brief Progress [id number]/18/2021 18:23[facility] Eddie Keller, FRANK - BETHANY (TAYLOR) - GEGE BHATTDate of Service 01/27/2021 18:23HPI/Events o f Note eICU updateCalled by bedside nurse patient had urinary retention at 120 mL. Recommend every 8 hour bladder scans and if patient does have significant urine retention will recommend straight cath at this time. If patient requires multiple straight caths will likely need to place Clements catheter at that time.Patient's blood glucose was noted to be in the 120-130 range as he remains n.p.o. on D5W but his gap has been closed but cannot tolerate diet. Will recommend decreasing insulin gtt to .5 u nits/h.Interventions Major-Hyperglycemia - active titration of insulin therapyIntermediate-Other: Uri nary retention
[2021-01-27] MEDS: HYDROmorphone 1 MG/ML Syringe IVPUSH PRN (21:20)
[2021-01-27] MEDS: cefTRIAXone 1 GM in Premix Bag 1 BAG IV SCH (21:53)
[2021-01-28 00:03] LABS: BLOOD UREA NITROGEN,BUN 37 mg/dL (7.0-18.0); CARBON DIOXIDE,CO2 30.4 mmol/L (21.0-32.0); CHLORIDE,CL 114 mmol/L (98-107); GLUCOSE RANDOM 202 mg/dL (74-106); POTASSIUM,K 3.7 mmol/L (3.5-5.1); SODIUM,NA 152 mmol/L (136-148)
[2021-01-28] MEDS: Dextrose 5% in Water 1,000 ML IV SCH ×2 (05:30→19:45)
[2021-01-28 06:30] LABS: BLOOD UREA NITROGEN,BUN 34 mg/dL (7.0-18.0); CHLORIDE,CL 112 mmol/L (98-107); GLUCOSE RANDOM 141 mg/dL (74-106); POTASSIUM,K 3.4 mmol/L (3.5-5.1); SODIUM,NA 151 mmol/L (136-148)
[2021-01-28] MEDS: HYDROmorphone 1 MG/ML Syringe IVPUSH PRN (06:32)
[2021-01-28] MEDS: Ondansetron 4 MG Tab.DIS PO PRN (06:32)
[2021-01-28] MEDS: Ondansetron 4 MG/2 ML SDV IVPUSH PRN ×3 (06:47→19:45)
--- NOTE | 2021-01-28 08:30 | PCM.PN ---
- General Info Date of Service: 01/28/21 Admission Dx/Problem (Free Text): Admission Diagnosis/Problem Admission Diagnosis/Problem Hypernatremia Subjective Update: 25-year-old male with history of DM 1, gastroparesis, neurogenic bladder admitted multiple times for nausea/vomiting due to gastroparesis. Patient had 4-day history of N/V, no insulin for 2 days prior to admission. Admitted for DKA and hypernatremia, sodium 155. Gap has been closed for >24 hours. This morning he complains of throat irritation and is requesting Benadryl. Patient had urinary retention yesterday, bladder scan did not show significant amount of urine. Patient has urinated twice since this morning but is hesitant due to dysuria. Patient is on Rocephin for UTI. Patient continues to have nausea vomiting and states he is unable to tolerate diet. - Review of Systems General: Denies: Fever, Chills HEENT: Reports: Sore Throat Pulmonary: Denies: Shortness of Breath, Cough Cardiovascular: Denies: Chest Pain, Palpitations Gastrointestinal: Reports: Nausea, Vomiting Genitourinary: Reports: Dysuria Musculoskeletal: Denies: Leg Pain Skin: Denies: Cyanosis, Pruritis, Rash Neurological: Denies: Confusion, Dizziness, Pre-Existing Deficit, Seizure, Syncope - Patient Data Vitals - Most Recent: Last Vital Signs Temp 98.3 F 01/28/21 04:00 Pulse 109 H 01/26/21 18:57 Resp 11 L 01/28/21 07:00 BP 152/97 H 01/28/21 07:00 Pulse Ox 100 01/28/21 07:00 Weight - Most Recent: 120 lb I&O - Last 24 Hours: Intake & Output 01/27/21 01/28/21 01/28/21 22:59 06:59 14:59 Intake Total 50 1362 Output Total 750 850 Balance 50 612 -850 Lab Results Last 24 Hours: Laboratory Results - last 24 hr 01/27/21 01/27/21 01/27/21 Range/Units 09:01 11:05 11:05 WBC (4.0-11.0) K/uL RBC (4.50-5.90) M/uL Hgb (13.0-17.0) g/dL Hct (38.0-50.0) % MCV (80.0-98.0) fL MCH (27.0-32.0) pg MCHC (31.0-37.0) g/dL RDW Std Deviation (28.0-62.0) fl RDW Coeff of Erika (11.0-15.0) % Plt Count (150-400) K/uL MPV (7.40-12.00) fL Neut % (Auto) (48.0-80.0) % Lymph % (Auto) (16.0-40.0) % [place] % (Auto) (0.0-15.0) % Eos % (Auto) (0.0-7.0) % Baso % (Auto) (0.0-1.5) % Neut # (Auto) (1.4-5.7) K/uL Lymph # (Auto) (0.6-2.4) K/uL [place] # (Auto) (0.0-0.8) K/uL Eos # (Auto) (0.0-0.7) K/uL Baso # (Auto) (0.0-0.1) K/uL Nucleated RBC % /100WBC Nucleated RBCs # K/uL Sodium 155 H (136-148) mmol/L Potassium 3.8 (3.5-5.1) mmol/L Chloride 117 H (98-107) mmol/L Carbon Dioxide 31.1 (21.0-32.0) mmol/L BUN 41 H (7.0-18.0) mg/dL Creatinine 1.2 (0.8-1.3) mg/dL Est Cr Clr Drug Dosing 73.71 mL/min Estimated GFR (MDRD) > 60.0 ml/min Glucose 164 H (74-106) mg/dL POC Glucose 128 H 133 H (70-99) mg/dL Calcium 8.9 (8.5-10.1) mg/dL 01/27/21 01/27/21 01/27/21 Range/Units 13:37 15:41 16:13 WBC (4.0-11.0) K/uL RBC (4.50-5.90) M/uL Hgb (13.0-17.0) g/dL Hct (38.0-50.0) % MCV (80.0-98.0) fL MCH (27.0-32.0) pg MCHC (31.0-37.0) g/dL RDW Std Deviation (28.0-62.0) fl RDW Coeff of Erika (11.0-15.0) % Plt Count (150-400) K/uL MPV (7.40-12.00) fL Neut % (Auto) (48.0-80.0) % Lymph % (Auto) (16.0-40.0) % [place] % (Auto) (0.0-15.0) % Eos % (Auto) (0.0-7.0) % Baso % (Auto) (0.0-1.5) % Neut # (Auto) (1.4-5.7) K/uL Lymph # (Auto) (0.6-2.4) K/uL [place] # (Auto) (0.0-0.8) K/uL Eos # (Auto) (0.0-0.7) K/uL Baso # (Auto) (0.0-0.1) K/uL Nucleated RBC % /100WBC Nucleated RBCs # K/uL Sodium 155 H (136-148) mmol/L Potassium 3.9 (3.5-5.1) mmol/L Chloride 117 H (98-107) mmol/L Carbon Dioxide 31.9 (21.0-32.0) mmol/L BUN 38 H (7.0-18.0) mg/dL Creatinine 1.1 (0.8-1.3) mg/dL Est Cr Clr Drug Dosing 80.41 mL/min Estimated GFR (MDRD) > 60.0 ml/min Glucose 128 H (74-106) mg/dL POC Glucose 154 H 123 H (70-99) mg/dL Calcium 8.9 (8.5-10.1) mg/dL 01/27/21 01/27/21 01/27/21 Range/Units 17:33 19:38 21:29 WBC (4.0-11.0) K/uL RBC (4.50-5.90) M/uL Hgb (13.0-17.0) g/dL Hct (38.0-50.0) % MCV (80.0-98.0) fL MCH (27.0-32.0) pg MCHC (31.0-37.0) g/dL RDW Std Deviation (28.0-62.0) fl RDW Coeff of Erika (11.0-15.0) % Plt Count (150-400) K/uL MPV (7.40-12.00) fL Neut % (Auto) (48.0-80.0) % Lymph % (Auto) (16.0-40.0) % [place] % (Auto) (0.0-15.0) % Eos % (Auto) (0.0-7.0) % Baso % (Auto) (0.0-1.5) % Neut # (Auto) (1.4-5.7) K/uL Lymph # (Auto) (0.6-2.4) K/uL [place] # (Auto) (0.0-0.8) K/uL Eos # (Auto) (0.0-0.7) K/uL Baso # (Auto) (0.0-0.1) K/uL Nucleated RBC % /100WBC Nucleated RBCs # K/uL Sodium (136-148) mmol/L Potassium (3.5-5.1) mmol/L Chloride (98-107) mmol/L Carbon Dioxide (21.0-32.0) mmol/L BUN (7.0-18.0) mg/dL Creatinine (0.8-1.3) mg/dL Est Cr Clr Drug Dosing mL/min Estimated GFR (MDRD) ml/min Glucose (74-106) mg/dL POC Glucose 131 H 159 H 212 H (70-99) mg/dL Calcium (8.5-10.1) mg/dL 01/27/21 01/27/21 01/27/21 Range/Units 22:26 23:23 23:45 WBC (4.0-11.0) K/uL RBC (4.50-5.90) M/uL Hgb (13.0-17.0) g/dL Hct (38.0-50.0) % MCV (80.0-98.0) fL MCH (27.0-32.0) pg MCHC (31.0-37.0) g/dL RDW Std Deviation (28.0-62.0) fl RDW Coeff of Erika (11.0-15.0) % Plt Count (150-400) K/uL MPV (7.40-12.00) fL Neut % (Auto) (48.0-80.0) % Lymph % (Auto) (16.0-40.0) % [place] % (Auto) (0.0-15.0) % Eos % (Auto) (0.0-7.0) % Baso % (Auto) (0.0-1.5) % Neut # (Auto) (1.4-5.7) K/uL Lymph # (Auto) (0.6-2.4) K/uL [place] # (Auto) (0.0-0.8) K/uL Eos # (Auto) (0.0-0.7) K/uL Baso # (Auto) (0.0-0.1) K/uL Nucleated RBC % /100WBC Nucleated RBCs # K/uL Sodium 152 H (136-148) mmol/L Potassium 3.7 (3.5-5.1) mmol/L Chloride 114 H (98-107) mmol/L Carbon Dioxide 30.4 (21.0-32.0) mmol/L BUN 37 H (7.0-18.0) mg/dL Creatinine 1.1 (0.8-1.3) mg/dL Est Cr Clr Drug Dosing 80.41 mL/min Estimated GFR (MDRD) > 60.0 ml/min Glucose 202 H (74-106) mg/dL POC Glucose 194 H 175 H (70-99) mg/dL Calcium 8.7 (8.5-10.1) mg/dL 01/28/21 01/28/21 01/28/21 Range/Units 00:16 01:12 02:25 WBC (4.0-11.0) K/uL RBC (4.50-5.90) M/uL Hgb (13.0-17.0) g/dL Hct (38.0-50.0) % MCV (80.0-98.0) fL MCH (27.0-32.0) pg MCHC (31.0-37.0) g/dL RDW Std Deviation (28.0-62.0) fl RDW Coeff of Erika (11.0-15.0) % Plt Count (150-400) K/uL MPV (7.40-12.00) fL Neut % (Auto) (48.0-80.0) % Lymph % (Auto) (16.0-40.0) % [place] % (Auto) (0.0-15.0) % Eos % (Auto) (0.0-7.0) % Baso % (Auto) (0.0-1.5) % Neut # (Auto) (1.4-5.7) K/uL Lymph # (Auto) (0.6-2.4) K/uL [place] # (Auto) (0.0-0.8) K/uL Eos # (Auto) (0.0-0.7) K/uL Baso # (Auto) (0.0-0.1) K/uL Nucleated RBC % /100WBC Nucleated RBCs # K/uL Sodium (136-148) mmol/L Potassium (3.5-5.1) mmol/L Chloride (98-107) mmol/L Carbon Dioxide (21.0-32.0) mmol/L BUN (7.0-18.0) mg/dL Creatinine (0.8-1.3) mg/dL Est Cr Clr Drug Dosing mL/min Estimated GFR (MDRD) ml/min Glucose (74-106) mg/dL POC Glucose 166 H 163 H 141 H (70-99) mg/dL Calcium (8.5-10.1) mg/dL 01/28/21 01/28/21 01/28/21 Range/Units 03:19 04:18 05:23 WBC 4.89 (4.0-11.0) K/uL RBC 3.72 L (4.50-5.90) M/uL Hgb 9.5 L (13.0-17.0) g/dL Hct 31.1 L (38.0-50.0) % MCV 83.6 (80.0-98.0) fL MCH 25.5 L (27.0-32.0) pg MCHC 30.5 L (31.0-37.0) g/dL RDW Std Deviation 43.8 (28.0-62.0) fl RDW Coeff of Erika 15 (11.0-15.0) % Plt Count 206 (150-400) K/uL MPV 9.90 (7.40-12.00) fL Neut % (Auto) 55.0 (48.0-80.0) % Lymph % (Auto) 30.5 (16.0-40.0) % [place] % (Auto) 8.0 (0.0-15.0) % Eos % (Auto) 6.1 (0.0-7.0) % Baso % (Auto) 0.4 (0.0-1.5) % Neut # (Auto) 2.7 (1.4-5.7) K/uL Lymph # (Auto) 1.5 (0.6-2.4) K/uL [place] # (Auto) 0.4 (0.0-0.8) K/uL Eos # (Auto) 0.3 (0.0-0.7) K/uL Baso # (Auto) 0.0 (0.0-0.1) K/uL Nucleated RBC % 0.0 /100WBC Nucleated RBCs # 0 K/uL Sodium (136-148) mmol/L Potassium (3.5-5.1) mmol/L Chloride (98-107) mmol/L Carbon Dioxide (21.0-32.0) mmol/L BUN (7.0-18.0) mg/dL Creatinine (0.8-1.3) mg/dL Est Cr Clr Drug Dosing mL/min Estimated GFR (MDRD) ml/min Glucose (74-106) mg/dL POC Glucose 134 H 137 H (70-99) mg/dL Calcium (8.5-10.1) mg/dL 01/28/21 01/28/21 01/28/21 Range/Units 05:23 05:24 06:36 WBC (4.0-11.0) K/uL RBC (4.50-5.90) M/uL Hgb (13.0-17.0) g/dL Hct (38.0-50.0) % MCV (80.0-98.0) fL MCH (27.0-32.0) pg MCHC (31.0-37.0) g/dL RDW Std Deviation (28.0-62.0) fl RDW Coeff of Erika (11.0-15.0) % Plt Count (150-400) K/uL MPV (7.40-12.00) fL Neut % (Auto) (48.0-80.0) % Lymph % (Auto) (16.0-40.0) % [place] % (Auto) (0.0-15.0) % Eos % (Auto) (0.0-7.0) % Baso % (Auto) (0.0-1.5) % Neut # (Auto) (1.4-5.7) K/uL Lymph # (Auto) (0.6-2.4) K/uL [place] # (Auto) (0.0-0.8) K/uL Eos # (Auto) (0.0-0.7) K/uL Baso # (Auto) (0.0-0.1) K/uL Nucleated RBC % /100WBC Nucleated RBCs # K/uL Sodium 151 H (136-148) mmol/L Potassium 3.4 L (3.5-5.1) mmol/L Chloride 112 H (98-107) mmol/L Carbon Dioxide 31.0 (21.0-32.0) mmol/L BUN 34 H (7.0-18.0) mg/dL Creatinine 1.0 (0.8-1.3) mg/dL Est Cr Clr Drug Dosing 88.45 mL/min Estimated GFR (MDRD) > 60.0 ml/min Glucose 141 H (74-106) mg/dL POC Glucose 128 H 127 H (70-99) mg/dL Calcium 8.7 (8.5-10.1) mg/dL 01/28/21 Range/Units 07:27 WBC (4.0-11.0) K/uL RBC (4.50-5.90) M/uL Hgb (13.0-17.0) g/dL Hct (38.0-50.0) % MCV (80.0-98.0) fL MCH (27.0-32.0) pg MCHC (31.0-37.0) g/dL RDW Std Deviation (28.0-62.0) fl RDW Coeff of Erika (11.0-15.0) % Plt Count (150-400) K/uL MPV (7.40-12.00) fL Neut % (Auto) (48.0-80.0) % Lymph % (Auto) (16.0-40.0) % [place] % (Auto) (0.0-15.0) % Eos % (Auto) (0.0-7.0) % Baso % (Auto) (0.0-1.5) % Neut # (Auto) (1.4-5.7) K/uL Lymph # (Auto) (0.6-2.4) K/uL [place] # (Auto) (0.0-0.8) K/uL Eos # (Auto) (0.0-0.7) K/uL Baso # (Auto) (0.0-0.1) K/uL Nucleated RBC % /100WBC Nucleated RBCs # K/uL Sodium (136-148) mmol/L Potassium (3.5-5.1) mmol/L Chloride (98-107) mmol/L Carbon Dioxide (21.0-32.0) mmol/L BUN (7.0-18.0) mg/dL Creatinine (0.8-1.3) mg/dL Est Cr Clr Drug Dosing mL/min Estimated GFR (MDRD) ml/min Glucose (74-106) mg/dL POC Glucose 132 H (70-99) mg/dL Calcium (8.5-10.1) mg/dL Med Orders - Current: Current Medications Dextrose/Water (50% Dextrose In Water 50 Ml Syringe) 50 ml IVPUSH ASDIRECTED PRN PRN Reason: Hypoglycemia Enoxaparin Sodium (Enoxaparin 40 Mg/0.4 Ml Syringe) 40 mg SUBCUT Q24H [facility] Last Admin: 01/27/21 16:26 Dose: 40 mg Documented by: Glucagon (Glucagon,Human Recombinant 1 Mg Vial) 1 mg IM ASDIRECTED PRN PRN Reason: Hypoglycemia Hydromorphone HCl (Hydromorphone 1 Mg/Ml Syringe) 0.5 mg IVPUSH Q4H PRN PRN Reason: Pain Stop: 01/28/21 20:59 Last Admin: 01/28/21 06:32 Dose: 0.5 mg Documented by: Insulin Regular in 0.9 % NACL (100 unit/ Premix) 100 mls @ 6 mls/hr IV TITRATE AUGUSTINE; Protocol Last Titration: 01/28/21 02:26 Dose: 1 unit/hr, 1 mls/hr Documented by: Dextrose/Water (Dextrose 5% In Water) 1,000 mls @ 100 mls/hr IV ASDIRECTED [facility] Last Admin: 01/28/21 05:30 Dose: 100 mls/hr Documented by: Ceftriaxone Sodium/Dextrose 1 (gm/ Premix) 50 mls @ 100 mls/hr IV Q24H [facility] Last Admin: 01/27/21 21:53 Dose: 100 mls/hr Documented by: Metoclopramide HCl (Metoclopramide 10 Mg Tab) 10 mg PO TID PRN PRN Reason: Nausea/Vomiting Ondansetron HCl (Ondansetron 4 Mg Tab.Dis) 4 mg PO Q6H PRN PRN Reason: Nausea Last Admin: 01/27/21 21:54 Dose: 4 mg Documented by: Ondansetron HCl (Ondansetron 4 Mg/2 Ml Sdv) 4 mg IVPUSH Q6H PRN PRN Reason: Nausea/Vomiting Last Admin: 01/28/21 06:47 Dose: 4 mg Documented by: Pantoprazole Sodium (Pantoprazole 40 Mg/10 Ml Syringe) 40 mg IVPUSH Q24H [facility] Last Admin: 01/27/21 16:38 Dose: 40 mg Documented by: Buprenorphine Hcl/Naloxone Hcl 1 Each Tab.Subl 8/2 Mg 1 each PO TID PRN PRN Reason: WITHDRAWAL Sodium Chloride (Sodium Chloride 0.9% 10 Ml Syringe) 10 ml FLUSH ASDIRECTED PRN PRN Reason: Keep Vein Open Last Admin: 01/26/21 14:32 Dose: 10 ml Documented by: Sodium Chloride (Sodium Chloride 0.9% 2.5 Ml Syringe) 2.5 ml FLUSH ASDIRECTED PRN PRN Reason: Keep Vein Open Last Admin: 01/26/21 14:32 Dose: 2.5 ml Documented by: Discontinued Medications Diphenhydramine HCl (Diphenhydramine 50 Mg/Ml Sdv) 25 mg IVPUSH ONETIME ONE Stop: 01/26/21 14:08 Last Admin: 01/26/21 14:31 Dose: 25 mg Documented by: Diphenhydramine HCl (Diphenhydramine 25 Mg Cap) 25 mg PO ONETIME ONE Stop: 01/26/21 21:19 Last Admin: 01/26/21 21:48 Dose: 25 mg Documented by: Sodium Chloride (Normal Saline) 1,000 mls @ 999 mls/hr IV ASDIRECTED AUGUSTINE Last Admin: 01/26/21 14:32 Dose: 999 mls/hr Documented by: Sodium Chloride (Normal Saline) 1,000 mls @ 999 mls/hr IV ASDIRECTED AUGUSTINE Insulin Human Regular 100 unit (/ Sodium Chloride) 100 mls @ 6 mls/hr IV TITRATE AUGUSTINE; Protocol Lactated Ringer's (Ringers, Lactated) 1,000 mls @ 999 mls/hr IV ASDIRECTED AUG[facility]INE Last Admin: 01/26/21 15:59 Dose: 999 mls/hr Documented by: Lactated Ringer's (Ringers, Lactated) 1,000 mls @ 150 mls/hr IV ASDIRECTED AUGUSTINE Last Infusion: 01/26/21 22:13 Dose: 0 mls/hr Documented by: Insulin Aspart (Insulin Aspart 100 Units/Ml 10 Ml Vial) 10 unit SUBCUT STAT STA Stop: 01/26/21 15:00 Last Admin: 01/26/21 16:01 Dose: Not Given Documented by: Metoclopramide HCl (Metoclopramide 10 Mg/2 Ml Sdv) 10 mg IVPUSH ONETIME ONE Stop: 01/26/21 14:08 Last Admin: 01/26/21 14:31 Dose: 10 mg Documented by: Non-Formulary Medication (Buprenorphine Hcl/Naloxone Hcl) 3 tab SL TID PRN PRN Reason: Abdominal Pain Ondansetron HCl (Ondansetron 4 Mg/2 Ml Sdv) Confirm Administered Dose 4 mg .ROUTE .STK-MED ONE Stop: 01/26/21 20:50 Last Admin: 01/26/21 21:47 Dose: Not Given Documented by: Ondansetron HCl (Ondansetron 4 Mg/2 Ml Sdv) 4 mg IVPUSH Q4H PRN PRN Reason: Nausea/Vomiting Last Admin: 01/26/21 21:47 Dose: 4 mg Documented by: - Exam General: Oriented, Cooperative, Other (Sleeping) HEENT: Pupils Equal, Pupils Reactive Neck: Supple, Trachea Midline Lungs: Clear to Auscultation, Normal Respiratory Effort Cardiovascular: Regular Rate, Regular Rhythm GI/Abdominal Exam: Soft, No Distention, Tender. No: Rigid, Rebound Extremities: Normal Inspection, No Pedal Edema Peripheral Pulses: 2+: Dorsalis Pedis (L), Dorsalis Pedis (R) Skin: Warm, Dry Neurological: No New Focal Deficit - Patient Data Lab Results Last 24 hrs: Laboratory Results - last 24 hr 01/27/21 01/27/21 01/27/21 Range/Units 09:01 11:05 11:05 WBC (4.0-11.0) K/uL RBC (4.50-5.90) M/uL Hgb (13.0-17.0) g/dL Hct (38.0-50.0) % MCV (80.0-98.0) fL MCH (27.0-32.0) pg MCHC (31.0-37.0) g/dL RDW Std Deviation (28.0-62.0) fl RDW Coeff of Erika (11.0-15.0) % Plt Count (150-400) K/uL MPV (7.40-12.00) fL Neut % (Auto) (48.0-80.0) % Lymph % (Auto) (16.0-40.0) % [place] % (Auto) (0.0-15.0) % Eos % (Auto) (0.0-7.0) % Baso % (Auto) (0.0-1.5) % Neut # (Auto) (1.4-5.7) K/uL Lymph # (Auto) (0.6-2.4) K/uL [place] # (Auto) (0.0-0.8) K/uL Eos # (Auto) (0.0-0.7) K/uL Baso # (Auto) (0.0-0.1) K/uL Nucleated RBC % /100WBC Nucleated RBCs # K/uL Sodium 155 H (136-148) mmol/L Potassium 3.8 (3.5-5.1) mmol/L Chloride 117 H (98-107) mmol/L Carbon Dioxide 31.1 (21.0-32.0) mmol/L BUN 41 H (7.0-18.0) mg/dL Creatinine 1.2 (0.8-1.3) mg/dL Est Cr Clr Drug Dosing 73.71 mL/min Estimated GFR (MDRD) > 60.0 ml/min Glucose 164 H (74-106) mg/dL POC Glucose 128 H 133 H (70-99) mg/dL Calcium 8.9 (8.5-10.1) mg/dL 01/27/21 01/27/21 01/27/21 Range/Units 13:37 15:41 16:13 WBC (4.0-11.0) K/uL RBC (4.50-5.90) M/uL Hgb (13.0-17.0) g/dL Hct (38.0-50.0) % MCV (80.0-98.0) fL MCH (27.0-32.0) pg MCHC (31.0-37.0) g/dL RDW Std Deviation (28.0-62.0) fl RDW Coeff of Erika (11.0-15.0) % Plt Count (150-400) K/uL MPV (7.40-12.00) fL Neut % (Auto) (48.0-80.0) % Lymph % (Auto) (16.0-40.0) % [place] % (Auto) (0.0-15.0) % Eos % (Auto) (0.0-7.0) % Baso % (Auto) (0.0-1.5) % Neut # (Auto) (1.4-5.7) K/uL Lymph # (Auto) (0.6-2.4) K/uL [place] # (Auto) (0.0-0.8) K/uL Eos # (Auto) (0.0-0.7) K/uL Baso # (Auto) (0.0-0.1) K/uL Nucleated RBC % /100WBC Nucleated RBCs # K/uL Sodium 155 H (136-148) mmol/L Potassium 3.9 (3.5-5.1) mmol/L Chloride 117 H (98-107) mmol/L Carbon Dioxide 31.9 (21.0-32.0) mmol/L BUN 38 H (7.0-18.0) mg/dL Creatinine 1.1 (0.8-1.3) mg/dL Est Cr Clr Drug Dosing 80.41 mL/min Estimated GFR (MDRD) > 60.0 ml/min Glucose 128 H (74-106) mg/dL POC Glucose 154 H 123 H (70-99) mg/dL Calcium 8.9 (8.5-10.1) mg/dL 01/27/21 01/27/21 01/27/21 Range/Units 17:33 19:38 21:29 WBC (4.0-11.0) K/uL RBC (4.50-5.90) M/uL Hgb (13.0-17.0) g/dL Hct (38.0-50.0) % MCV (80.0-98.0) fL MCH (27.0-32.0) pg MCHC (31.0-37.0) g/dL RDW Std Deviation (28.0-62.0) fl RDW Coeff of Erika (11.0-15.0) % Plt Count (150-400) K/uL MPV (7.40-12.00) fL Neut % (Auto) (48.0-80.0) % Lymph % (Auto) (16.0-40.0) % [place] % (Auto) (0.0-15.0) % Eos % (Auto) (0.0-7.0) % Baso % (Auto) (0.0-1.5) % Neut # (Auto) (1.4-5.7) K/uL Lymph # (Auto) (0.6-2.4) K/uL [place] # (Auto) (0.0-0.8) K/uL Eos # (Auto) (0.0-0.7) K/uL Baso # (Auto) (0.0-0.1) K/uL Nucleated RBC % /100WBC Nucleated RBCs # K/uL Sodium (136-148) mmol/L Potassium (3.5-5.1) mmol/L Chloride (98-107) mmol/L Carbon Dioxide (21.0-32.0) mmol/L BUN (7.0-18.0) mg/dL Creatinine (0.8-1.3) mg/dL Est Cr Clr Drug Dosing mL/min Estimated GFR (MDRD) ml/min Glucose (74-106) mg/dL POC Glucose 131 H 159 H 212 H (70-99) mg/dL Calcium (8.5-10.1) mg/dL 01/27/21 01/27/21 01/27/21 Range/Units 22:26 23:23 23:45 WBC (4.0-11.0) K/uL RBC (4.50-5.90) M/uL Hgb (13.0-17.0) g/dL Hct (38.0-50.0) % MCV (80.0-98.0) fL MCH (27.0-32.0) pg MCHC (31.0-37.0) g/dL RDW Std Deviation (28.0-62.0) fl RDW Coeff of Erika (11.0-15.0) % Plt Count (150-400) K/uL MPV (7.40-12.00) fL Neut % (Auto) (48.0-80.0) % Lymph % (Auto) (16.0-40.0) % [place] % (Auto) (0.0-15.0) % Eos % (Auto) (0.0-7.0) % Baso % (Auto) (0.0-1.5) % Neut # (Auto) (1.4-5.7) K/uL Lymph # (Auto) (0.6-2.4) K/uL [place] # (Auto) (0.0-0.8) K/uL Eos # (Auto) (0.0-0.7) K/uL Baso # (Auto) (0.0-0.1) K/uL Nucleated RBC % /100WBC Nucleated RBCs # K/uL Sodium 152 H (136-148) mmol/L Potassium 3.7 (3.5-5.1) mmol/L Chloride 114 H (98-107) mmol/L Carbon Dioxide 30.4 (21.0-32.0) mmol/L BUN 37 H (7.0-18.0) mg/dL Creatinine 1.1 (0.8-1.3) mg/dL Est Cr Clr Drug Dosing 80.41 mL/min Estimated GFR (MDRD) > 60.0 ml/min Glucose 202 H (74-106) mg/dL POC Glucose 194 H 175 H (70-99) mg/dL Calcium 8.7 (8.5-10.1) mg/dL 01/28/21 01/28/21 01/28/21 Range/Units 00:16 01:12 02:25 WBC (4.0-11.0) K/uL RBC (4.50-5.90) M/uL Hgb (13.0-17.0) g/dL Hct (38.0-50.0) % MCV (80.0-98.0) fL MCH (27.0-32.0) pg MCHC (31.0-37.0) g/dL RDW Std Deviation (28.0-62.0) fl RDW Coeff of Erika (11.0-15.0) % Plt Count (150-400) K/uL MPV (7.40-12.00) fL Neut % (Auto) (48.0-80.0) % Lymph % (Auto) (16.0-40.0) % [place] % (Auto) (0.0-15.0) % Eos % (Auto) (0.0-7.0) % Baso % (Auto) (0.0-1.5) % Neut # (Auto) (1.4-5.7) K/uL Lymph # (Auto) (0.6-2.4) K/uL [place] # (Auto) (0.0-0.8) K/uL Eos # (Auto) (0.0-0.7) K/uL Baso # (Auto) (0.0-0.1) K/uL Nucleated RBC % /100WBC Nucleated RBCs # K/uL Sodium (136-148) mmol/L Potassium (3.5-5.1) mmol/L Chloride (98-107) mmol/L Carbon Dioxide (21.0-32.0) mmol/L BUN (7.0-18.0) mg/dL Creatinine (0.8-1.3) mg/dL Est Cr Clr Drug Dosing mL/min Estimated GFR (MDRD) ml/min Glucose (74-106) mg/dL POC Glucose 166 H 163 H 141 H (70-99) mg/dL Calcium (8.5-10.1) mg/dL 01/28/21 01/28/21 01/28/21 Range/Units 03:19 04:18 05:23 WBC 4.89 (4.0-11.0) K/uL RBC 3.72 L (4.50-5.90) M/uL Hgb 9.5 L (13.0-17.0) g/dL Hct 31.1 L (38.0-50.0) % MCV 83.6 (80.0-98.0) fL MCH 25.5 L (27.0-32.0) pg MCHC 30.5 L (31.0-37.0) g/dL RDW Std Deviation 43.8 (28.0-62.0) fl RDW Coeff of Erika 15 (11.0-15.0) % Plt Count 206 (150-400) K/uL MPV 9.90 (7.40-12.00) fL Neut % (Auto) 55.0 (48.0-80.0) % Lymph % (Auto) 30.5 (16.0-40.0) % [place] % (Auto) 8.0 (0.0-15.0) % Eos % (Auto) 6.1 (0.0-7.0) % Baso % (Auto) 0.4 (0.0-1.5) % Neut # (Auto) 2.7 (1.4-5.7) K/uL Lymph # (Auto) 1.5 (0.6-2.4) K/uL [place] # (Auto) 0.4 (0.0-0.8) K/uL Eos # (Auto) 0.3 (0.0-0.7) K/uL Baso # (Auto) 0.0 (0.0-0.1) K/uL Nucleated RBC % 0.0 /100WBC Nucleated RBCs # 0 K/uL Sodium (136-148) mmol/L Potassium (3.5-5.1) mmol/L Chloride (98-107) mmol/L Carbon Dioxide (21.0-32.0) mmol/L BUN (7.0-18.0) mg/dL Creatinine (0.8-1.3) mg/dL Est Cr Clr Drug Dosing mL/min Estimated GFR (MDRD) ml/min Glucose (74-106) mg/dL POC Glucose 134 H 137 H (70-99) mg/dL Calcium (8.5-10.1) mg/dL 01/28/21 01/28/21 01/28/21 Range/Units 05:23 05:24 06:36 WBC (4.0-11.0) K/uL RBC (4.50-5.90) M/uL Hgb (13.0-17.0) g/dL Hct (38.0-50.0) % MCV (80.0-98.0) fL MCH (27.0-32.0) pg MCHC (31.0-37.0) g/dL RDW Std Deviation (28.0-62.0) fl RDW Coeff of Erika (11.0-15.0) % Plt Count (150-400) K/uL MPV (7.40-12.00) fL Neut % (Auto) (48.0-80.0) % Lymph % (Auto) (16.0-40.0) % [place] % (Auto) (0.0-15.0) % Eos % (Auto) (0.0-7.0) % Baso % (Auto) (0.0-1.5) % Neut # (Auto) (1.4-5.7) K/uL Lymph # (Auto) (0.6-2.4) K/uL [place] # (Auto) (0.0-0.8) K/uL Eos # (Auto) (0.0-0.7) K/uL Baso # (Auto) (0.0-0.1) K/uL Nucleated RBC % /100WBC Nucleated RBCs # K/uL Sodium 151 H (136-148) mmol/L Potassium 3.4 L (3.5-5.1) mmol/L Chloride 112 H (98-107) mmol/L Carbon Dioxide 31.0 (21.0-32.0) mmol/L BUN 34 H (7.0-18.0) mg/dL Creatinine 1.0 (0.8-1.3) mg/dL Est Cr Clr Drug Dosing 88.45 mL/min Estimated GFR (MDRD) > 60.0 ml/min Glucose 141 H (74-106) mg/dL POC Glucose 128 H 127 H (70-99) mg/dL Calcium 8.7 (8.5-10.1) mg/dL 01/28/21 Range/Units 07:27 WBC (4.0-11.0) K/uL RBC (4.50-5.90) M/uL Hgb (13.0-17.0) g/dL Hct (38.0-50.0) % MCV (80.0-98.0) fL MCH (27.0-32.0) pg MCHC (31.0-37.0) g/dL RDW Std Deviation (28.0-62.0) fl RDW Coeff of Erika (11.0-15.0) % Plt Count (150-400) K/uL MPV (7.40-12.00) fL Neut % (Auto) (48.0-80.0) % Lymph % (Auto) (16.0-40.0) % [place] % (Auto) (0.0-15.0) % Eos % (Auto) (0.0-7.0) % Baso % (Auto) (0.0-1.5) % Neut # (Auto) (1.4-5.7) K/uL Lymph # (Auto) (0.6-2.4) K/uL [place] # (Auto) (0.0-0.8) K/uL Eos # (Auto) (0.0-0.7) K/uL Baso # (Auto) (0.0-0.1) K/uL Nucleated RBC % /100WBC Nucleated RBCs # K/uL Sodium (136-148) mmol/L Potassium (3.5-5.1) mmol/L Chloride (98-107) mmol/L Carbon Dioxide (21.0-32.0) mmol/L BUN (7.0-18.0) mg/dL Creatinine (0.8-1.3) mg/dL Est Cr Clr Drug Dosing mL/min Estimated GFR (MDRD) ml/min Glucose (74-106) mg/dL POC Glucose 132 H (70-99) mg/dL Calcium (8.5-10.1) mg/dL Result Diagrams: 01/28/21 05:23 01/28/21 05:23 Sepsis Event Note - Evaluation Sepsis Screening Result: No Definite Risk - Focused Exam Vital Signs: Vital Signs Temp Resp BP Pulse Ox 01/28/21 07:00 11 L 152/97 H 100 01/28/21 06:00 11 L 101/69 96 01/28/21 05:00 10 L 108/73 98 01/28/21 04:00 98.3 F 10 L 108/69 96 01/28/21 03:00 11 L 117/87 98 01/28/21 02:00 11 L 103/72 98 01/28/21 01:00 12 108/77 98 01/28/21 00:00 97.8 F 11 L 108/76 98 01/27/21 23:00 13 109/70 97 01/27/21 22:00 12 126/90 94 L 01/27/21 21:00 20 141/99 H 96 - Problem List Review Problem List Initiated/Reviewed/Updated: Yes - Plan Plan:: 25-year-old male with type 1 diabetes mellitus admitted for DKA, hypernatremia, urinary tract infection, and gastroparesis. -Patient continues to have nausea vomiting. Not tolerating diet. Continue D5W and insulin drip. DKA resolved. Repeat BMP at 3 PM. -We will start IV erythromycin at this is previously because the patient's nausea vomiting to improve. -Metoclopramide. Zofran. Protonix. Diphenhydramine. -Ceftriaxone for UTI. Urine is growing gram-negative rods. -Follow-up with eICU recommendations.
[2021-01-28] MEDS ORDERED: Potassium Chloride 20 MEQ Tab.ER PO ONE (08:39)
[2021-01-28] MEDS: diphenhydrAMINE 50 MG/ML SDV IVPUSH PRN ×3 (09:54→19:45)
[2021-01-28] MEDS: Metoclopramide 10 MG Tab PO PRN (09:54)
[2021-01-28] MEDS ORDERED: Potassium Chloride Riders 100 ML IV ONE (10:00)
[2021-01-28] MEDS ORDERED: Potassium Bicarbonate 25 MEQ Tab.EFF PO ONE (10:00)
[2021-01-28] MEDS ORDERED: diphenhydrAMINE 25 MG Cap PO ONE (10:00)
[2021-01-28] MEDS: SODIUM CHLORIDE 0.9% IV SCH ×3 (13:31→23:22)
[2021-01-28] MEDS: ERYTHROMYCIN LACTOBIONATE IV SCH ×3 (13:31→23:22)
[2021-01-28] MEDS: Enoxaparin 40 MG/0.4 ML Syringe SUBCUT SCH (15:08)
[2021-01-28] MEDS: Pantoprazole 40 MG/10 ML Syringe IVPUSH SCH (15:08)
[2021-01-28 16:07] LABS: BLOOD UREA NITROGEN,BUN 29 mg/dL (7.0-18.0); CARBON DIOXIDE,CO2 29.8 mmol/L (21.0-32.0); CHLORIDE,CL 114 mmol/L (98-107); GLUCOSE RANDOM 144 mg/dL (74-106); POTASSIUM,K 4.7 mmol/L (3.5-5.1); SODIUM,NA 151 mmol/L (136-148)
[2021-01-28] MEDS: cefTRIAXone 1 GM in Premix Bag 1 BAG IV SCH (21:32)
[2021-01-29] MEDS: Ondansetron 4 MG/2 ML SDV IVPUSH PRN ×2 (01:51→10:29)
[2021-01-29] MEDS: NALOXONE HCL PO PRN ×3 (02:31→17:25)
[2021-01-29] MEDS: BUPRENORPHINE HCL PO PRN ×3 (02:31→17:25)
[2021-01-29] MEDS: ERYTHROMYCIN LACTOBIONATE IV SCH ×4 (05:35→23:50)
[2021-01-29] MEDS: SODIUM CHLORIDE 0.9% IV SCH ×4 (05:35→23:50)
[2021-01-29 06:19] LABS: BLOOD UREA NITROGEN,BUN 23 mg/dL (7.0-18.0); CARBON DIOXIDE,CO2 30.3 mmol/L (21.0-32.0); CHLORIDE,CL 110 mmol/L (98-107); GLUCOSE RANDOM 170 mg/dL (74-106); POTASSIUM,K 3.6 mmol/L (3.5-5.1); SODIUM,NA 146 mmol/L (136-148)
[2021-01-29] MEDS: Dextrose 5% in Water 1,000 ML IV SCH (08:20)
[2021-01-29] MEDS ORDERED: Glucagon,Human Recombinant 1 MG Vial IM PRN ×2 (09:11→14:35)
[2021-01-29] MEDS ORDERED: 50% Dextrose in Water 50 ML Syringe IVPUSH PRN ×2 (09:11→14:35)
[2021-01-29] MEDS: Insulin Aspart 100 Units/ML 3 ML Pen SUBCUT SCH ×5 (09:38→22:53)
[2021-01-29] MEDS: Sodium Chloride 0.45% 1,000 ML IV SCH (10:12)
[2021-01-29] MEDS: diphenhydrAMINE 50 MG/ML SDV IVPUSH PRN (10:32)
--- NOTE | 2021-01-29 10:46 | PCM.PN ---
<Aleksander Bazan - Last Filed: 01/29/21 10:41> - General Info Date of Service: 01/29/21 Admission Dx/Problem (Free Text): Admission Diagnosis/Problem Admission Diagnosis/Problem Hypernatremia Subjective Update: 25-year-old male with history of DM 1, gastroparesis, neurogenic bladder admitted multiple times for nausea/vomiting due to gastroparesis. Admitted for DKA and hypernatremia, sodium 155. Gap has been closed for 48hours, but patient remained on D5W and insulin drip because he was not tolerating diet. Patient was started on IV erythromycin and home Suboxone was restarted. Patient tolerated clear broth last night and Jell-O this morning. Contacted eICU this morning who recommended switching patient to sliding scale. Patient has urinary retention, straight cath this morning at 3 AM for 700 mL urine. Patient is on Rocephin for UTI. No nursing concerns. - Review of Systems General: Denies: Fever, Chills HEENT: Denies: Headaches Pulmonary: Denies: Shortness of Breath, Cough Cardiovascular: Denies: Chest Pain, Palpitations Gastrointestinal: Reports: Abdominal Pain, Nausea. Denies: Constipation, Diarrhea, Vomiting Genitourinary: Reports: Dysuria Neurological: Denies: Confusion, Headache, Numbness, Paresthesia - Patient Data Vitals - Most Recent: Last Vital Signs Temp 96.5 F L 01/29/21 08:00 Pulse 109 H 01/26/21 18:57 Resp 11 L 01/29/21 10:00 BP 114/92 H 01/29/21 10:00 Pulse Ox 100 01/29/21 10:00 Weight - Most Recent: 120 lb I&O - Last 24 Hours: Intake & Output 01/28/21 01/29/21 01/29/21 22:59 06:59 14:59 Intake Total 10 1906 464 Output Total 425 1400 Balance -415 506 464 Lab Results Last 24 Hours: Laboratory Results - last 24 hr 01/28/21 01/28/21 01/28/21 Range/Units 11:34 13:26 15:30 WBC (4.0-11.0) K/uL RBC (4.50-5.90) M/uL Hgb (13.0-17.0) g/dL Hct (38.0-50.0) % MCV (80.0-98.0) fL MCH (27.0-32.0) pg MCHC (31.0-37.0) g/dL RDW Std Deviation (28.0-62.0) fl RDW Coeff of Erika (11.0-15.0) % Plt Count (150-400) K/uL MPV (7.40-12.00) fL Neut % (Auto) (48.0-80.0) % Lymph % (Auto) (16.0-40.0) % [place] % (Auto) (0.0-15.0) % Eos % (Auto) (0.0-7.0) % Baso % (Auto) (0.0-1.5) % Neut # (Auto) (1.4-5.7) K/uL Lymph # (Auto) (0.6-2.4) K/uL [place] # (Auto) (0.0-0.8) K/uL Eos # (Auto) (0.0-0.7) K/uL Baso # (Auto) (0.0-0.1) K/uL Nucleated RBC % /100WBC Nucleated RBCs # K/uL Sodium 151 H (136-148) mmol/L Potassium 4.7 (3.5-5.1) mmol/L Chloride 114 H (98-107) mmol/L Carbon Dioxide 29.8 (21.0-32.0) mmol/L BUN 29 H (7.0-18.0) mg/dL Creatinine 1.1 (0.8-1.3) mg/dL Est Cr Clr Drug Dosing 80.41 mL/min Estimated GFR (MDRD) > 60.0 ml/min Glucose 144 H (74-106) mg/dL POC Glucose 175 H 130 H (70-99) mg/dL Calcium 9.1 (8.5-10.1) mg/dL 01/28/21 01/28/21 01/28/21 Range/Units 15:31 17:33 19:35 WBC (4.0-11.0) K/uL RBC (4.50-5.90) M/uL Hgb (13.0-17.0) g/dL Hct (38.0-50.0) % MCV (80.0-98.0) fL MCH (27.0-32.0) pg MCHC (31.0-37.0) g/dL RDW Std Deviation (28.0-62.0) fl RDW Coeff of Erika (11.0-15.0) % Plt Count (150-400) K/uL MPV (7.40-12.00) fL Neut % (Auto) (48.0-80.0) % Lymph % (Auto) (16.0-40.0) % [place] % (Auto) (0.0-15.0) % Eos % (Auto) (0.0-7.0) % Baso % (Auto) (0.0-1.5) % Neut # (Auto) (1.4-5.7) K/uL Lymph # (Auto) (0.6-2.4) K/uL [place] # (Auto) (0.0-0.8) K/uL Eos # (Auto) (0.0-0.7) K/uL Baso # (Auto) (0.0-0.1) K/uL Nucleated RBC % /100WBC Nucleated RBCs # K/uL Sodium (136-148) mmol/L Potassium (3.5-5.1) mmol/L Chloride (98-107) mmol/L Carbon Dioxide (21.0-32.0) mmol/L BUN (7.0-18.0) mg/dL Creatinine (0.8-1.3) mg/dL Est Cr Clr Drug Dosing mL/min Estimated GFR (MDRD) ml/min Glucose (74-106) mg/dL POC Glucose 128 H 140 H 132 H (70-99) mg/dL Calcium (8.5-10.1) mg/dL 01/28/21 01/28/21 01/29/21 Range/Units 21:29 23:31 01:46 WBC (4.0-11.0) K/uL RBC (4.50-5.90) M/uL Hgb (13.0-17.0) g/dL Hct (38.0-50.0) % MCV (80.0-98.0) fL MCH (27.0-32.0) pg MCHC (31.0-37.0) g/dL RDW Std Deviation (28.0-62.0) fl RDW Coeff of Erika (11.0-15.0) % Plt Count (150-400) K/uL MPV (7.40-12.00) fL Neut % (Auto) (48.0-80.0) % Lymph % (Auto) (16.0-40.0) % [place] % (Auto) (0.0-15.0) % Eos % (Auto) (0.0-7.0) % Baso % (Auto) (0.0-1.5) % Neut # (Auto) (1.4-5.7) K/uL Lymph # (Auto) (0.6-2.4) K/uL [place] # (Auto) (0.0-0.8) K/uL Eos # (Auto) (0.0-0.7) K/uL Baso # (Auto) (0.0-0.1) K/uL Nucleated RBC % /100WBC Nucleated RBCs # K/uL Sodium (136-148) mmol/L Potassium (3.5-5.1) mmol/L Chloride (98-107) mmol/L Carbon Dioxide (21.0-32.0) mmol/L BUN (7.0-18.0) mg/dL Creatinine (0.8-1.3) mg/dL Est Cr Clr Drug Dosing mL/min Estimated GFR (MDRD) ml/min Glucose (74-106) mg/dL POC Glucose 159 H 144 H 138 H (70-99) mg/dL Calcium (8.5-10.1) mg/dL 01/29/21 01/29/21 01/29/21 Range/Units 03:33 05:20 05:20 WBC 4.21 (4.0-11.0) K/uL RBC 3.68 L (4.50-5.90) M/uL Hgb 9.5 L (13.0-17.0) g/dL Hct 30.5 L (38.0-50.0) % MCV 82.9 (80.0-98.0) fL MCH 25.8 L (27.0-32.0) pg MCHC 31.1 (31.0-37.0) g/dL RDW Std Deviation 42.4 (28.0-62.0) fl RDW Coeff of Erika 14 (11.0-15.0) % Plt Count 215 (150-400) K/uL MPV 9.80 (7.40-12.00) fL Neut % (Auto) 46.6 L (48.0-80.0) % Lymph % (Auto) 41.8 H (16.0-40.0) % [place] % (Auto) 5.5 (0.0-15.0) % Eos % (Auto) 5.9 (0.0-7.0) % Baso % (Auto) 0.2 (0.0-1.5) % Neut # (Auto) 2.0 (1.4-5.7) K/uL Lymph # (Auto) 1.8 (0.6-2.4) K/uL [place] # (Auto) 0.2 (0.0-0.8) K/uL Eos # (Auto) 0.3 (0.0-0.7) K/uL Baso # (Auto) 0.0 (0.0-0.1) K/uL Nucleated RBC % 0.0 /100WBC Nucleated RBCs # 0 K/uL Sodium 146 (136-148) mmol/L Potassium 3.6 (3.5-5.1) mmol/L Chloride 110 H (98-107) mmol/L Carbon Dioxide 30.3 (21.0-32.0) mmol/L BUN 23 H (7.0-18.0) mg/dL Creatinine 1.1 (0.8-1.3) mg/dL Est Cr Clr Drug Dosing 80.41 mL/min Estimated GFR (MDRD) > 60.0 ml/min Glucose 170 H (74-106) mg/dL POC Glucose 166 H (70-99) mg/dL Calcium 8.3 L (8.5-10.1) mg/dL 01/29/21 01/29/21 Range/Units 08:20 09:34 WBC (4.0-11.0) K/uL RBC (4.50-5.90) M/uL Hgb (13.0-17.0) g/dL Hct (38.0-50.0) % MCV (80.0-98.0) fL MCH (27.0-32.0) pg MCHC (31.0-37.0) g/dL RDW Std Deviation (28.0-62.0) fl RDW Coeff of Erika (11.0-15.0) % Plt Count (150-400) K/uL MPV (7.40-12.00) fL Neut % (Auto) (48.0-80.0) % Lymph % (Auto) (16.0-40.0) % [place] % (Auto) (0.0-15.0) % Eos % (Auto) (0.0-7.0) % Baso % (Auto) (0.0-1.5) % Neut # (Auto) (1.4-5.7) K/uL Lymph # (Auto) (0.6-2.4) K/uL [place] # (Auto) (0.0-0.8) K/uL Eos # (Auto) (0.0-0.7) K/uL Baso # (Auto) (0.0-0.1) K/uL Nucleated RBC % /100WBC Nucleated RBCs # K/uL Sodium (136-148) mmol/L Potassium (3.5-5.1) mmol/L Chloride (98-107) mmol/L Carbon Dioxide (21.0-32.0) mmol/L BUN (7.0-18.0) mg/dL Creatinine (0.8-1.3) mg/dL Est Cr Clr Drug Dosing mL/min Estimated GFR (MDRD) ml/min Glucose (74-106) mg/dL POC Glucose 169 H 174 H (70-99) mg/dL Calcium (8.5-10.1) mg/dL [place] Results Last 24 Hours: Microbiology 01/26/21 21:40 Urine Culture - Final Urine Escherichia Coli Med Orders - Current: Current Medications Dextrose/Water (50% Dextrose In Water 50 Ml Syringe) 50 ml IVPUSH ASDIRECTED PRN PRN Reason: Hypoglycemia Diphenhydramine HCl (Diphenhydramine 50 Mg/Ml Sdv) 25 mg IVPUSH Q4H PRN PRN Reason: Itching Stop: 01/29/21 20:00 Last Admin: 01/29/21 10:32 Dose: 25 mg Documented by: Enoxaparin Sodium (Enoxaparin 40 Mg/0.4 Ml Syringe) 40 mg SUBCUT Q24H [facility] Last Admin: 01/28/21 15:08 Dose: 40 mg Documented by: Glucagon (Glucagon,Human Recombinant 1 Mg Vial) 1 mg IM ASDIRECTED PRN PRN Reason: Hypoglycemia Ceftriaxone Sodium/Dextrose 1 (gm/ Premix) 50 mls @ 100 mls/hr IV Q24H [facility] Last Admin: 01/28/21 21:32 Dose: 100 mls/hr Documented by: Erythromycin Lactobionate 300 (mg/ Sodium Chloride) 100 mls @ 100 mls/hr IV Q6H [facility] Last Admin: 01/29/21 05:35 Dose: 100 mls/hr Documented by: Sodium Chloride (Sodium Chloride 0.45%) 1,000 mls @ 75 mls/hr IV ASDIRECTED [facility] Last Admin: 01/29/21 10:12 Dose: 75 mls/hr Documented by: Insulin Aspart (Insulin Aspart 100 Units/Ml 3 Ml Pen) 0 unit SUBCUT QIDACANDBED [facility]; Protocol Last Admin: 01/29/21 09:38 Dose: 1 unit Documented by: Metoclopramide HCl (Metoclopramide 10 Mg Tab) 10 mg PO TID PRN PRN Reason: Nausea/Vomiting Last Admin: 01/28/21 09:54 Dose: 10 mg Documented by: Ondansetron HCl (Ondansetron 4 Mg Tab.Dis) 4 mg PO Q6H PRN PRN Reason: Nausea Last Admin: 01/27/21 21:54 Dose: 4 mg Documented by: Ondansetron HCl (Ondansetron 4 Mg/2 Ml Sdv) 4 mg IVPUSH Q6H PRN PRN Reason: Nausea/Vomiting Last Admin: 01/29/21 10:29 Dose: 4 mg Documented by: Pantoprazole Sodium (Pantoprazole 40 Mg/10 Ml Syringe) 40 mg IVPUSH Q24H [facility] Last Admin: 01/28/21 15:08 Dose: 40 mg Documented by: Buprenorphine Hcl/Naloxone Hcl 1 Each Tab.Subl 8/2 MgPt Own 1 each PO TID PRN PRN Reason: WITHDRAWAL Last Admin: 01/29/21 09:25 Dose: 1 each Documented by: Sodium Chloride (Sodium Chloride 0.9% 10 Ml Syringe) 10 ml FLUSH ASDIRECTED PRN PRN Reason: Keep Vein Open Last Admin: 01/26/21 14:32 Dose: 10 ml Documented by: Sodium Chloride (Sodium Chloride 0.9% 2.5 Ml Syringe) 2.5 ml FLUSH ASDIRECTED PRN PRN Reason: Keep Vein Open Last Admin: 01/26/21 14:32 Dose: 2.5 ml Documented by: Discontinued Medications Diphenhydramine HCl (Diphenhydramine 50 Mg/Ml Sdv) 25 mg IVPUSH ONETIME ONE Stop: 01/26/21 14:08 Last Admin: 01/26/21 14:31 Dose: 25 mg Documented by: Diphenhydramine HCl (Diphenhydramine 25 Mg Cap) 25 mg PO ONETIME ONE Stop: 01/26/21 21:19 Last Admin: 01/26/21 21:48 Dose: 25 mg Documented by: Diphenhydramine HCl (Diphenhydramine 25 Mg Cap) 25 mg PO ONETIME ONE Stop: 01/28/21 10:01 Last Admin: 01/28/21 09:38 Dose: 25 mg Documented by: Hydromorphone HCl (Hydromorphone 1 Mg/Ml Syringe) 0.5 mg IVPUSH Q4H PRN PRN Reason: Pain Stop: 01/28/21 20:59 Last Admin: 01/28/21 06:32 Dose: 0.5 mg Documented by: Sodium Chloride (Normal Saline) 1,000 mls @ 999 mls/hr IV ASDIRECTED [facility] Last Admin: 01/26/21 14:32 Dose: 999 mls/hr Documented by: Sodium Chloride (Normal Saline) 1,000 mls @ 999 mls/hr IV ASDIRECTED [facility] Insulin Human Regular 100 unit (/ Sodium Chloride) 100 mls @ 6 mls/hr IV TITRATE [facility]; Protocol Lactated Ringer's (Ringers, Lactated) 1,000 mls @ 999 mls/hr IV ASDIRECTED [facility] Last Admin: 01/26/21 15:59 Dose: 999 mls/hr Documented by: Insulin Regular in 0.9 % NACL (100 unit/ Premix) 100 mls @ 6 mls/hr IV TITRATE [facility]; Protocol Last Titration: 01/29/21 09:38 Dose: 0 unit/hr, 0 mls/hr Documented by: Lactated Ringer's (Ringers, Lactated) 1,000 mls @ 150 mls/hr IV ASDIRECTED [facility] Last Infusion: 01/26/21 22:13 Dose: 0 mls/hr Documented by: Dextrose/Water (Dextrose 5% In Water) 1,000 mls @ 100 mls/hr IV ASDIRECTED [facility] Last Admin: 01/29/21 08:20 Dose: 100 mls/hr Documented by: Potassium Chloride (Kcl In Water 40 Meq/100 Ml) 100 mls @ 25 mls/hr IV ONETIME ONE Stop: 01/28/21 13:59 Last Admin: 01/28/21 09:54 Dose: 25 mls/hr Documented by: Insulin Aspart (Insulin Aspart 100 Units/Ml 10 Ml Vial) 10 unit SUBCUT STAT STA Stop: 01/26/21 15:00 Last Admin: 01/26/21 16:01 Dose: Not Given Documented by: Metoclopramide HCl (Metoclopramide 10 Mg/2 Ml Sdv) 10 mg IVPUSH ONETIME ONE Stop: 01/26/21 14:08 Last Admin: 01/26/21 14:31 Dose: 10 mg Documented by: Non-Formulary Medication (Buprenorphine Hcl/Naloxone Hcl) 3 tab SL TID PRN PRN Reason: Abdominal Pain Ondansetron HCl (Ondansetron 4 Mg/2 Ml Sdv) Confirm Administered Dose 4 mg .ROUTE .STK-MED ONE Stop: 01/26/21 20:50 Last Admin: 01/26/21 21:47 Dose: Not Given Documented by: Ondansetron HCl (Ondansetron 4 Mg/2 Ml Sdv) 4 mg IVPUSH Q4H PRN PRN Reason: Nausea/Vomiting Last Admin: 01/26/21 21:47 Dose: 4 mg Documented by: Potassium Chloride (Potassium Chloride 20 Meq Tab.Er) 40 meq PO ONETIME ONE Stop: 01/28/21 08:40 Last Admin: 01/28/21 09:38 Dose: 40 meq Documented by: - Exam General: Alert, Oriented. No: Cooperative HEENT: Pupils Equal, Pupils Reactive Neck: Supple, Trachea Midline Lungs: Clear to Auscultation, Normal Respiratory Effort Cardiovascular: Regular Rate, Regular Rhythm GI/Abdominal Exam: Soft, Non-Tender, No Distention Extremities: Normal Inspection, Non-Tender, No Pedal Edema. No: Sreekanth's Sign Peripheral Pulses: 2+: Dorsalis Pedis (L), Dorsalis Pedis (R) Skin: Warm, Dry, Intact Neurological: No New Focal Deficit - Patient Data Lab Results Last 24 hrs: Laboratory Results - last 24 hr 01/28/21 01/28/21 01/28/21 Range/Units 11:34 13:26 15:30 WBC (4.0-11.0) K/uL RBC (4.50-5.90) M/uL Hgb (13.0-17.0) g/dL Hct (38.0-50.0) % MCV (80.0-98.0) fL MCH (27.0-32.0) pg MCHC (31.0-37.0) g/dL RDW Std Deviation (28.0-62.0) fl RDW Coeff of Erika (11.0-15.0) % Plt Count (150-400) K/uL MPV (7.40-12.00) fL Neut % (Auto) (48.0-80.0) % Lymph % (Auto) (16.0-40.0) % [place] % (Auto) (0.0-15.0) % Eos % (Auto) (0.0-7.0) % Baso % (Auto) (0.0-1.5) % Neut # (Auto) (1.4-5.7) K/uL Lymph # (Auto) (0.6-2.4) K/uL [place] # (Auto) (0.0-0.8) K/uL Eos # (Auto) (0.0-0.7) K/uL Baso # (Auto) (0.0-0.1) K/uL Nucleated RBC % /100WBC Nucleated RBCs # K/uL Sodium 151 H (136-148) mmol/L Potassium 4.7 (3.5-5.1) mmol/L Chloride 114 H (98-107) mmol/L Carbon Dioxide 29.8 (21.0-32.0) mmol/L BUN 29 H (7.0-18.0) mg/dL Creatinine 1.1 (0.8-1.3) mg/dL Est Cr Clr Drug Dosing 80.41 mL/min Estimated GFR (MDRD) > 60.0 ml/min Glucose 144 H (74-106) mg/dL POC Glucose 175 H 130 H (70-99) mg/dL Calcium 9.1 (8.5-10.1) mg/dL 01/28/21 01/28/21 01/28/21 Range/Units 15:31 17:33 19:35 WBC (4.0-11.0) K/uL RBC (4.50-5.90) M/uL Hgb (13.0-17.0) g/dL Hct (38.0-50.0) % MCV (80.0-98.0) fL MCH (27.0-32.0) pg MCHC (31.0-37.0) g/dL RDW Std Deviation (28.0-62.0) fl RDW Coeff of Erika (11.0-15.0) % Plt Count (150-400) K/uL MPV (7.40-12.00) fL Neut % (Auto) (48.0-80.0) % Lymph % (Auto) (16.0-40.0) % [place] % (Auto) (0.0-15.0) % Eos % (Auto) (0.0-7.0) % Baso % (Auto) (0.0-1.5) % Neut # (Auto) (1.4-5.7) K/uL Lymph # (Auto) (0.6-2.4) K/uL [place] # (Auto) (0.0-0.8) K/uL Eos # (Auto) (0.0-0.7) K/uL Baso # (Auto) (0.0-0.1) K/uL Nucleated RBC % /100WBC Nucleated RBCs # K/uL Sodium (136-148) mmol/L Potassium (3.5-5.1) mmol/L Chloride (98-107) mmol/L Carbon Dioxide (21.0-32.0) mmol/L BUN (7.0-18.0) mg/dL Creatinine (0.8-1.3) mg/dL Est Cr Clr Drug Dosing mL/min Estimated GFR (MDRD) ml/min Glucose (74-106) mg/dL POC Glucose 128 H 140 H 132 H (70-99) mg/dL Calcium (8.5-10.1) mg/dL 01/28/21 01/28/21 01/29/21 Range/Units 21:29 23:31 01:46 WBC (4.0-11.0) K/uL RBC (4.50-5.90) M/uL Hgb (13.0-17.0) g/dL Hct (38.0-50.0) % MCV (80.0-98.0) fL MCH (27.0-32.0) pg MCHC (31.0-37.0) g/dL RDW Std Deviation (28.0-62.0) fl RDW Coeff of Erika (11.0-15.0) % Plt Count (150-400) K/uL MPV (7.40-12.00) fL Neut % (Auto) (48.0-80.0) % Lymph % (Auto) (16.0-40.0) % [place] % (Auto) (0.0-15.0) % Eos % (Auto) (0.0-7.0) % Baso % (Auto) (0.0-1.5) % Neut # (Auto) (1.4-5.7) K/uL Lymph # (Auto) (0.6-2.4) K/uL [place] # (Auto) (0.0-0.8) K/uL Eos # (Auto) (0.0-0.7) K/uL Baso # (Auto) (0.0-0.1) K/uL Nucleated RBC % /100WBC Nucleated RBCs # K/uL Sodium (136-148) mmol/L Potassium (3.5-5.1) mmol/L Chloride (98-107) mmol/L Carbon Dioxide (21.0-32.0) mmol/L BUN (7.0-18.0) mg/dL Creatinine (0.8-1.3) mg/dL Est Cr Clr Drug Dosing mL/min Estimated GFR (MDRD) ml/min Glucose (74-106) mg/dL POC Glucose 159 H 144 H 138 H (70-99) mg/dL Calcium (8.5-10.1) mg/dL 01/29/21 01/29/21 01/29/21 Range/Units 03:33 05:20 05:20 WBC 4.21 (4.0-11.0) K/uL RBC 3.68 L (4.50-5.90) M/uL Hgb 9.5 L (13.0-17.0) g/dL Hct 30.5 L (38.0-50.0) % MCV 82.9 (80.0-98.0) fL MCH 25.8 L (27.0-32.0) pg MCHC 31.1 (31.0-37.0) g/dL RDW Std Deviation 42.4 (28.0-62.0) fl RDW Coeff of Erika 14 (11.0-15.0) % Plt Count 215 (150-400) K/uL MPV 9.80 (7.40-12.00) fL Neut % (Auto) 46.6 L (48.0-80.0) % Lymph % (Auto) 41.8 H (16.0-40.0) % [place] % (Auto) 5.5 (0.0-15.0) % Eos % (Auto) 5.9 (0.0-7.0) % Baso % (Auto) 0.2 (0.0-1.5) % Neut # (Auto) 2.0 (1.4-5.7) K/uL Lymph # (Auto) 1.8 (0.6-2.4) K/uL [place] # (Auto) 0.2 (0.0-0.8) K/uL Eos # (Auto) 0.3 (0.0-0.7) K/uL Baso # (Auto) 0.0 (0.0-0.1) K/uL Nucleated RBC % 0.0 /100WBC Nucleated RBCs # 0 K/uL Sodium 146 (136-148) mmol/L Potassium 3.6 (3.5-5.1) mmol/L Chloride 110 H (98-107) mmol/L Carbon Dioxide 30.3 (21.0-32.0) mmol/L BUN 23 H (7.0-18.0) mg/dL Creatinine 1.1 (0.8-1.3) mg/dL Est Cr Clr Drug Dosing 80.41 mL/min Estimated GFR (MDRD) > 60.0 ml/min Glucose 170 H (74-106) mg/dL POC Glucose 166 H (70-99) mg/dL Calcium 8.3 L (8.5-10.1) mg/dL 01/29/21 01/29/21 Range/Units 08:20 09:34 WBC (4.0-11.0) K/uL RBC (4.50-5.90) M/uL Hgb (13.0-17.0) g/dL Hct (38.0-50.0) % MCV (80.0-98.0) fL MCH (27.0-32.0) pg MCHC (31.0-37.0) g/dL RDW Std Deviation (28.0-62.0) fl RDW Coeff of Erika (11.0-15.0) % Plt Count (150-400) K/uL MPV (7.40-12.00) fL Neut % (Auto) (48.0-80.0) % Lymph % (Auto) (16.0-40.0) % [place] % (Auto) (0.0-15.0) % Eos % (Auto) (0.0-7.0) % Baso % (Auto) (0.0-1.5) % Neut # (Auto) (1.4-5.7) K/uL Lymph # (Auto) (0.6-2.4) K/uL [place] # (Auto) (0.0-0.8) K/uL Eos # (Auto) (0.0-0.7) K/uL Baso # (Auto) (0.0-0.1) K/uL Nucleated RBC % /100WBC Nucleated RBCs # K/uL Sodium (136-148) mmol/L Potassium (3.5-5.1) mmol/L Chloride (98-107) mmol/L Carbon Dioxide (21.0-32.0) mmol/L BUN (7.0-18.0) mg/dL Creatinine (0.8-1.3) mg/dL Est Cr Clr Drug Dosing mL/min Estimated GFR (MDRD) ml/min Glucose (74-106) mg/dL POC Glucose 169 H 174 H (70-99) mg/dL Calcium (8.5-10.1) mg/dL Result Diagrams: 01/29/21 05:20 01/29/21 05:20 [place] Results Last 24 hrs: Microbiology 01/26/21 21:40 Urine Culture - Final Urine Escherichia Coli Sepsis Event Note - Evaluation Sepsis Screening Result: No Definite Risk - Focused Exam Vital Signs: Vital Signs Temp Resp BP Pulse Ox 01/29/21 10:00 11 L 114/92 H 100 01/29/21 09:00 11 L 109/75 99 01/29/21 08:00 96.5 F L 12 124/85 99 01/29/21 07:00 11 L 119/81 97 01/29/21 06:00 11 L 95/63 99 01/29/21 05:00 12 98/63 99 01/29/21 04:00 98.1 F 10 L 128/82 97 01/29/21 03:00 17 154/103 H 96 01/29/21 02:00 10 L 154/98 H 98 01/29/21 01:00 15 141/99 H 97 01/29/21 00:00 11 L 130/94 H 97 01/28/21 23:00 13 138/101 H 96 - Problem List Review Problem List Initiated/Reviewed/Updated: Yes - My Orders Last 24 Hours: My Active Orders 01/28/21 09:45 diphenhydrAMINE [Benadryl] 25 mg IVPUSH Q4H PRN 01/28/21 12:00 Erythromycin Lactobionate 300 mg Sodium Chloride 0.9% [Normal Saline] 100 ml IV Q6H 01/29/21 Breakfast [employer] Diet [DIET] 01/29/21 09:11 Insulin Aspart [NovoLOG] See Protocol SUBCUT QIDACANDBED 01/29/21 12:00 Accu Check [Blood Glucose Check, Bedside] [RC] Q2HR - Plan Plan:: 25-year-old male with type 1 diabetes mellitus admitted for DKA, hypernatremia, urinary tract infection, and gastroparesis. -Discontinue D5W and initiate half-normal saline x1 bag. Discontinue insulin drip and start sliding scale low-dose. DKA resolved. Patient tolerating diet. -Continue Suboxone and IV erythromycin for nausea and vomiting. -Metoclopramide. Zofran. Protonix. Diphenhydramine. -Ceftriaxone for UTI. Urine is growing E. coli. -Downgrade to medical floor. -Follow-up with eICU recommendations. <Brandon Perry - Last Filed: 01/30/21 14:46> - Patient Data Vitals - Most Recent: Last Vital Signs Temp 97.0 F 01/30/21 12:37 Pulse 109 H 01/26/21 18:57 Resp 20 01/30/21 12:37 BP 96/46 L 01/30/21 12:37 Pulse Ox 99 01/30/21 12:37 I&O - Last 24 Hours: Intake & Output 01/29/21 01/30/21 01/30/21 22:59 06:59 14:59 Intake Total 1338 892 Output Total 1150 1125 Balance 188 -233 Lab Results Last 24 Hours: Laboratory Results - last 24 hr 01/29/21 01/29/21 01/30/21 Range/Units 18:46 22:52 02:56 POC Glucose 161 H 188 H 277 H (70-99) mg/dL 01/30/21 01/30/21 Range/Units 06:52 11:12 POC Glucose 318 H 395 H (70-99) mg/dL [facility] Results Last 24 Hours: Microbiology 01/26/21 21:40 Urine Culture - Final Urine Escherichia Coli Med Orders - Current: Current Medications Dextrose/Water (50% Dextrose In Water 50 Ml Syringe) 50 ml IVPUSH ASDIRECTED PRN PRN Reason: Hypoglycemia Enoxaparin Sodium (Enoxaparin 40 Mg/0.4 Ml Syringe) 40 mg SUBCUT Q24H [facility] Last Admin: 01/29/21 16:45 Dose: 40 mg Documented by: Glucagon (Glucagon,Human Recombinant 1 Mg Vial) 1 mg IM ASDIRECTED PRN PRN Reason: Hypoglycemia Ceftriaxone Sodium/Dextrose 1 (gm/ Premix) 50 mls @ 100 mls/hr IV Q24H [facility] Last Admin: 01/29/21 22:47 Dose: 100 mls/hr Documented by: Erythromycin Lactobionate 300 (mg/ Sodium Chloride) 100 mls @ 100 mls/hr IV Q6H [facility] Last Admin: 01/30/21 12:15 Dose: 100 mls/hr Documented by: Sodium Chloride (Sodium Chloride 0.45%) 1,000 mls @ 75 mls/hr IV ASDIRECTED [facility] Last Infusion: 01/30/21 01:45 Dose: 0 mls/hr Documented by: Sodium Chloride (Sodium Chloride 0.45%) 500 mls @ 75 mls/hr IV ASDIRECTED [facility] Last Admin: 01/30/21 11:00 Dose: 75 mls/hr Documented by: Insulin Aspart (Insulin Aspart 100 Units/Ml 3 Ml Pen) 0 unit SUBCUT Q4H [facility]; Protocol Last Admin: 01/30/21 11:13 Dose: 10 units Documented by: Metoclopramide HCl (Metoclopramide 10 Mg Tab) 10 mg PO TID PRN PRN Reason: Nausea/Vomiting Last Admin: 01/29/21 13:55 Dose: 10 mg Documented by: Ondansetron HCl (Ondansetron 4 Mg Tab.Dis) 4 mg PO Q6H PRN PRN Reason: Nausea Last Admin: 01/30/21 13:19 Dose: 4 mg Documented by: Ondansetron HCl (Ondansetron 4 Mg/2 Ml Sdv) 4 mg IVPUSH Q6H PRN PRN Reason: Nausea/Vomiting Last Admin: 01/30/21 11:17 Dose: 4 mg Documented by: Pantoprazole Sodium (Pantoprazole 40 Mg/10 Ml Syringe) 40 mg IVPUSH Q24H [facility] Last Admin: 01/29/21 16:45 Dose: 40 mg Documented by: Buprenorphine Hcl/Naloxone Hcl 1 Each Tab.Subl 8/2 MgPt Own 1 each PO TID PRN PRN Reason: WITHDRAWAL Last Admin: 01/30/21 08:49 Dose: 1 each Documented by: Sodium Chloride (Sodium Chloride 0.9% 10 Ml Syringe) 10 ml FLUSH ASDIRECTED PRN PRN Reason: Keep Vein Open Last Admin: 01/26/21 14:32 Dose: 10 ml Documented by: Sodium Chloride (Sodium Chloride 0.9% 2.5 Ml Syringe) 2.5 ml FLUSH ASDIRECTED PRN PRN Reason: Keep Vein Open Last Admin: 01/26/21 14:32 Dose: 2.5 ml Documented by: Discontinued Medications Diphenhydramine HCl (Diphenhydramine 50 Mg/Ml Sdv) 25 mg IVPUSH ONETIME ONE Stop: 01/26/21 14:08 Last Admin: 01/26/21 14:31 Dose: 25 mg Documented by: Diphenhydramine HCl (Diphenhydramine 25 Mg Cap) 25 mg PO ONETIME ONE Stop: 01/26/21 21:19 Last Admin: 01/26/21 21:48 Dose: 25 mg Documented by: Diphenhydramine HCl (Diphenhydramine 25 Mg Cap) 25 mg PO ONETIME ONE Stop: 01/28/21 10:01 Last Admin: 01/28/21 09:38 Dose: 25 mg Documented by: Diphenhydramine HCl (Diphenhydramine 50 Mg/Ml Sdv) 25 mg IVPUSH Q4H PRN PRN Reason: Itching Stop: 01/29/21 20:00 Last Admin: 01/29/21 10:32 Dose: 25 mg Documented by: Diphenhydramine HCl (Diphenhydramine 25 Mg Cap) 25 mg PO ONETIME ONE Stop: 01/30/21 04:09 Hydromorphone HCl (Hydromorphone 1 Mg/Ml Syringe) 0.5 mg IVPUSH Q4H PRN PRN Reason: Pain Stop: 01/28/21 20:59 Last Admin: 01/28/21 06:32 Dose: 0.5 mg Documented by: Sodium Chloride (Normal Saline) 1,000 mls @ 999 mls/hr IV ASDIRECTED [facility] Last Admin: 01/26/21 14:32 Dose: 999 mls/hr Documented by: Sodium Chloride (Normal Saline) 1,000 mls @ 999 mls/hr IV ASDIRECTED [facility] Insulin Human Regular 100 unit (/ Sodium Chloride) 100 mls @ 6 mls/hr IV TITRATE [facility]; Protocol Lactated Ringer's (Ringers, Lactated) 1,000 mls @ 999 mls/hr IV ASDIRECTED [facility] Last Admin: 01/26/21 15:59 Dose: 999 mls/hr Documented by: Insulin Regular in 0.9 % NACL (100 unit/ Premix) 100 mls @ 6 mls/hr IV TITRATE [facility]; Protocol Last Titration: 01/29/21 09:38 Dose: 0 unit/hr, 0 mls/hr Documented by: Lactated Ringer's (Ringers, Lactated) 1,000 mls @ 150 mls/hr IV ASDIRECTED [facility] Last Infusion: 01/26/21 22:13 Dose: 0 mls/hr Documented by: Dextrose/Water (Dextrose 5% In Water) 1,000 mls @ 100 mls/hr IV ASDIRECTED [facility] Last Admin: 01/29/21 08:20 Dose: 100 mls/hr Documented by: Potassium Chloride (Kcl In Water 40 Meq/100 Ml) 100 mls @ 25 mls/hr IV ONETIME ONE Stop: 01/28/21 13:59 Last Admin: 01/28/21 09:54 Dose: 25 mls/hr Documented by: Insulin Aspart (Insulin Aspart 100 Units/Ml 10 Ml Vial) 10 unit SUBCUT STAT STA Stop: 01/26/21 15:00 Last Admin: 01/26/21 16:01 Dose: Not Given Documented by: Insulin Aspart (Insulin Aspart 100 Units/Ml 3 Ml Pen) 0 unit SUBCUT QIDACANDBED [facility]; Protocol Last Admin: 01/29/21 12:44 Dose: 8 unit Documented by: Metoclopramide HCl (Metoclopramide 10 Mg/2 Ml Sdv) 10 mg IVPUSH ONETIME ONE Stop: 01/26/21 14:08 Last Admin: 01/26/21 14:31 Dose: 10 mg Documented by: Non-Formulary Medication (Buprenorphine Hcl/Naloxone Hcl) 3 tab SL TID PRN PRN Reason: Abdominal Pain Ondansetron HCl (Ondansetron 4 Mg/2 Ml Sdv) Confirm Administered Dose 4 mg .ROUTE .STK-MED ONE Stop: 01/26/21 20:50 Last Admin: 01/26/21 21:47 Dose: Not Given Documented by: Ondansetron HCl (Ondansetron 4 Mg/2 Ml Sdv) 4 mg IVPUSH Q4H PRN PRN Reason: Nausea/Vomiting Last Admin: 01/26/21 21:47 Dose: 4 mg Documented by: Potassium Chloride (Potassium Chloride 20 Meq Tab.Er) 40 meq PO ONETIME ONE Stop: 01/28/21 08:40 Last Admin: 01/28/21 09:38 Dose: 40 meq Documented by: - Patient Data Lab Results Last 24 hrs: Laboratory Results - last 24 hr 01/29/21 01/29/21 01/30/21 Range/Units 18:46 22:52 02:56 POC Glucose 161 H 188 H 277 H (70-99) mg/dL 01/30/21 01/30/21 Range/Units 06:52 11:12 POC Glucose 318 H 395 H (70-99) mg/dL Result Diagrams: 01/29/21 05:20 01/29/21 05:20 Donaldo Results Last 24 hrs: Microbiology 01/26/21 21:40 Urine Culture - Final Urine Escherichia Coli Sepsis Event Note - Focused Exam Vital Signs: Vital Signs Temp Resp BP Pulse Ox 01/30/21 12:37 97.0 F 20 96/46 L 99 01/30/21 09:00 24 H 110/68 99 01/30/21 08:00 96.8 F L 16 105/53 L 99 01/30/21 07:00 16 126/79 98 01/30/21 06:00 13 129/80 97 01/30/21 05:00 18 145/102 H 98 01/30/21 04:00 14 148/89 H 98 01/30/21 03:00 98.3 F 12 120/86 96 - Problem List & Annotations (1) DKA, type 1 SNOMED Code(s): 37956094, 13666953 Code(s): E10.10 - TYPE 1 DIABETES MELLITUS WITH KETOACIDOSIS WITHOUT COMA Status: Acute Current Visit: Yes (2) Dehydration SNOMED Code(s): 72698203 Code(s): E86.0 - DEHYDRATION Status: Acute Current Visit: Yes (3) Diabetic gastroparesis SNOMED Code(s): 657626636 Code(s): E11.43 - TYPE 2 DIABETES W DIABETIC AUTONOMIC (POLY)NEUROPATHY; K31.84 - GASTROPARESIS Status: Acute Priority: High Current Visit: Yes (4) Hypernatremia SNOMED Code(s): 669435214 Code(s): E87.0 - HYPEROSMOLALITY AND HYPERNATREMIA Status: Acute Current Visit: Yes (5) Acute pyelonephritis SNOMED Code(s): 66847164 Code(s): N10 - ACUTE PYELONEPHRITIS Status: Acute Current Visit: No - My Orders Last 24 Hours: My Active Orders 01/29/21 15:00 Insulin Aspart [NovoLOG] See Protocol SUBCUT Q4H 01/30/21 09:15 Transfer Patient (Change bed) [ADT] Routine - Plan Plan:: I discussed the case with Dr. Bazan I agree with the above assessment and plan.
--- NOTE | 2021-01-29 13:46 | PN ---
THC Physician - Brief Progress [id number]/20/2021 13:44[facility] Eddie puckett, FRANK - BETHANY (TAYLOR) - GEGE BHATTDate of Service 01/29/2021 13:44HPI/Events o f Note eICU updatePatient is tolerating diet today.Spoke with Dr. Bazan.Agree with transition from ins ulin drip to sliding scale insulin and continue diet as tolerated.eICU will continue to follow. Plea se feel free to contact us with any questions or concerns as they arise.Interventions Minor-Communica tion with other healthcare providers and/or familyElectronically Signed by: IFEANYI BAER) on 13:46
[2021-01-29] MEDS: Metoclopramide 10 MG Tab PO PRN (13:55)
[2021-01-29] MEDS: Enoxaparin 40 MG/0.4 ML Syringe SUBCUT SCH (16:45)
[2021-01-29] MEDS: Pantoprazole 40 MG/10 ML Syringe IVPUSH SCH (16:45)
[2021-01-29] MEDS: cefTRIAXone 1 GM in Premix Bag 1 BAG IV SCH (22:47)
[2021-01-30] MEDS: Sodium Chloride 0.45% 1,000 ML IV SCH (01:36)
[2021-01-30] MEDS: Insulin Aspart 100 Units/ML 3 ML Pen SUBCUT SCH ×6 (02:57→22:39)
[2021-01-30] MEDS: Ondansetron 4 MG Tab.DIS PO PRN ×2 (03:24→13:19)
[2021-01-30] MEDS ORDERED: diphenhydrAMINE 25 MG Cap PO ONE ×2 (04:08→18:15)
--- NOTE | 2021-01-30 04:23 | PN ---
THC Physician - Brief Progress [id number]/21/2021 04:20[facility] [place], FRANK - BETHANY (TAYLOR) - GEGE BHATTDate of Service 01/30/2021 04:20HPI/Events o f Note Called for c/o pruritus.Ordered Benadryl 25 mg po x1.Interventions Minor-Other: pruritusElectr onically Signed by: CHELY ESTRELLA) on 01/30/2021 04:22
[2021-01-30] MEDS: ERYTHROMYCIN LACTOBIONATE IV SCH ×4 (06:44→23:33)
[2021-01-30] MEDS: SODIUM CHLORIDE 0.9% IV SCH ×4 (06:44→23:33)
[2021-01-30] MEDS: Metoclopramide 10 MG Tab PO PRN (08:47)
[2021-01-30] MEDS: BUPRENORPHINE HCL PO PRN ×2 (08:49→16:51)
[2021-01-30] MEDS: NALOXONE HCL PO PRN ×2 (08:49→16:51)
--- NOTE | 2021-01-30 10:26 | PCM.PN ---
<Aleksander Bazan - Last Filed: 01/30/21 11:08> - General Info Date of Service: 01/30/21 Admission Dx/Problem (Free Text): Admission Diagnosis/Problem Admission Diagnosis/Problem Hypernatremia Subjective Update: 25-year-old male with history of DM 1, gastroparesis, neurogenic bladder admitted multiple times for nausea/vomiting due to gastroparesis. Patient was started on IV erythromycin and home Suboxone was restarted. Patient continued to experience nausea. Patient is tolerating small amounts of food. Patient is on a sliding scale. This morning he is tachycardic but no fevers. Patient has been refusing his Suboxone. Patient is on Rocephin for UTI. No nursing concerns. - Review of Systems General: Denies: Fever, Chills Pulmonary: Denies: Shortness of Breath, Cough Cardiovascular: Denies: Chest Pain, Palpitations Gastrointestinal: Reports: Abdominal Pain, Nausea, Vomiting Genitourinary: Denies: Dysuria Musculoskeletal: Denies: Leg Pain Neurological: Denies: Confusion - Patient Data Vitals - Most Recent: Last Vital Signs Temp 96.8 F L 01/30/21 08:00 Pulse 109 H 01/26/21 18:57 Resp 24 H 01/30/21 09:00 BP 110/68 01/30/21 09:00 Pulse Ox 99 01/30/21 09:00 Weight - Most Recent: 120 lb I&O - Last 24 Hours: Intake & Output 01/29/21 01/30/21 01/30/21 22:59 06:59 14:59 Intake Total 1338 892 Output Total 1150 1125 Balance 188 -233 Lab Results Last 24 Hours: Laboratory Results - last 24 hr 01/29/21 01/29/21 01/29/21 Range/Units 12:34 14:33 18:46 POC Glucose 419 H* 316 H 161 H (70-99) mg/dL 01/29/21 01/30/21 01/30/21 Range/Units 22:52 02:56 06:52 POC Glucose 188 H 277 H 318 H (70-99) mg/dL Donaldo Results Last 24 Hours: Microbiology 01/26/21 21:40 Urine Culture - Final Urine Escherichia Coli Med Orders - Current: Current Medications Dextrose/Water (50% Dextrose In Water 50 Ml Syringe) 50 ml IVPUSH ASDIRECTED PRN PRN Reason: Hypoglycemia Enoxaparin Sodium (Enoxaparin 40 Mg/0.4 Ml Syringe) 40 mg SUBCUT Q24H [facility] Last Admin: 01/29/21 16:45 Dose: 40 mg Documented by: Glucagon (Glucagon,Human Recombinant 1 Mg Vial) 1 mg IM ASDIRECTED PRN PRN Reason: Hypoglycemia Ceftriaxone Sodium/Dextrose 1 (gm/ Premix) 50 mls @ 100 mls/hr IV Q24H [facility] Last Admin: 01/29/21 22:47 Dose: 100 mls/hr Documented by: Erythromycin Lactobionate 300 (mg/ Sodium Chloride) 100 mls @ 100 mls/hr IV Q6H [facility] Last Admin: 01/30/21 06:44 Dose: 100 mls/hr Documented by: Sodium Chloride (Sodium Chloride 0.45%) 1,000 mls @ 75 mls/hr IV ASDIRECTED [facility] Last Infusion: 01/30/21 01:45 Dose: 0 mls/hr Documented by: Sodium Chloride (Sodium Chloride 0.45%) 500 mls @ 75 mls/hr IV ASDIRECTED [facility] Insulin Aspart (Insulin Aspart 100 Units/Ml 3 Ml Pen) 0 unit SUBCUT Q4H [facility]; Protocol Last Admin: 01/30/21 07:01 Dose: 4 units Documented by: Metoclopramide HCl (Metoclopramide 10 Mg Tab) 10 mg PO TID PRN PRN Reason: Nausea/Vomiting Last Admin: 01/29/21 13:55 Dose: 10 mg Documented by: Ondansetron HCl (Ondansetron 4 Mg Tab.Dis) 4 mg PO Q6H PRN PRN Reason: Nausea Last Admin: 01/30/21 03:24 Dose: 4 mg Documented by: Ondansetron HCl (Ondansetron 4 Mg/2 Ml Sdv) 4 mg IVPUSH Q6H PRN PRN Reason: Nausea/Vomiting Last Admin: 01/29/21 10:29 Dose: 4 mg Documented by: Pantoprazole Sodium (Pantoprazole 40 Mg/10 Ml Syringe) 40 mg IVPUSH Q24H [facility] Last Admin: 01/29/21 16:45 Dose: 40 mg Documented by: Buprenorphine Hcl/Naloxone Hcl 1 Each Tab.Subl 8/2 MgPt Own 1 each PO TID PRN PRN Reason: WITHDRAWAL Last Admin: 01/30/21 08:49 Dose: 1 each Documented by: Sodium Chloride (Sodium Chloride 0.9% 10 Ml Syringe) 10 ml FLUSH ASDIRECTED PRN PRN Reason: Keep Vein Open Last Admin: 01/26/21 14:32 Dose: 10 ml Documented by: Sodium Chloride (Sodium Chloride 0.9% 2.5 Ml Syringe) 2.5 ml FLUSH ASDIRECTED PRN PRN Reason: Keep Vein Open Last Admin: 01/26/21 14:32 Dose: 2.5 ml Documented by: Discontinued Medications Diphenhydramine HCl (Diphenhydramine 50 Mg/Ml Sdv) 25 mg IVPUSH ONETIME ONE Stop: 01/26/21 14:08 Last Admin: 01/26/21 14:31 Dose: 25 mg Documented by: Diphenhydramine HCl (Diphenhydramine 25 Mg Cap) 25 mg PO ONETIME ONE Stop: 01/26/21 21:19 Last Admin: 01/26/21 21:48 Dose: 25 mg Documented by: Diphenhydramine HCl (Diphenhydramine 25 Mg Cap) 25 mg PO ONETIME ONE Stop: 01/28/21 10:01 Last Admin: 01/28/21 09:38 Dose: 25 mg Documented by: Diphenhydramine HCl (Diphenhydramine 50 Mg/Ml Sdv) 25 mg IVPUSH Q4H PRN PRN Reason: Itching Stop: 01/29/21 20:00 Last Admin: 01/29/21 10:32 Dose: 25 mg Documented by: Diphenhydramine HCl (Diphenhydramine 25 Mg Cap) 25 mg PO ONETIME ONE Stop: 01/30/21 04:09 Hydromorphone HCl (Hydromorphone 1 Mg/Ml Syringe) 0.5 mg IVPUSH Q4H PRN PRN Reason: Pain Stop: 01/28/21 20:59 Last Admin: 01/28/21 06:32 Dose: 0.5 mg Documented by: Sodium Chloride (Normal Saline) 1,000 mls @ 999 mls/hr IV ASDIRECTED [facility] Last Admin: 01/26/21 14:32 Dose: 999 mls/hr Documented by: Sodium Chloride (Normal Saline) 1,000 mls @ 999 mls/hr IV ASDIRECTED [facility] Insulin Human Regular 100 unit (/ Sodium Chloride) 100 mls @ 6 mls/hr IV TITRATE [facility]; Protocol Lactated Ringer's (Ringers, Lactated) 1,000 mls @ 999 mls/hr IV ASDIRECTED [facility] Last Admin: 01/26/21 15:59 Dose: 999 mls/hr Documented by: Insulin Regular in 0.9 % NACL (100 unit/ Premix) 100 mls @ 6 mls/hr IV TITRATE [facility]; Protocol Last Titration: 01/29/21 09:38 Dose: 0 unit/hr, 0 mls/hr Documented by: Lactated Ringer's (Ringers, Lactated) 1,000 mls @ 150 mls/hr IV ASDIRECTED [facility] Last Infusion: 01/26/21 22:13 Dose: 0 mls/hr Documented by: Dextrose/Water (Dextrose 5% In Water) 1,000 mls @ 100 mls/hr IV ASDIRECTED [facility] Last Admin: 01/29/21 08:20 Dose: 100 mls/hr Documented by: Potassium Chloride (Kcl In Water 40 Meq/100 Ml) 100 mls @ 25 mls/hr IV ONETIME ONE Stop: 01/28/21 13:59 Last Admin: 01/28/21 09:54 Dose: 25 mls/hr Documented by: Insulin Aspart (Insulin Aspart 100 Units/Ml 10 Ml Vial) 10 unit SUBCUT STAT STA Stop: 01/26/21 15:00 Last Admin: 01/26/21 16:01 Dose: Not Given Documented by: Insulin Aspart (Insulin Aspart 100 Units/Ml 3 Ml Pen) 0 unit SUBCUT QIDACANDBED [facility]; Protocol Last Admin: 01/29/21 12:44 Dose: 8 unit Documented by: Metoclopramide HCl (Metoclopramide 10 Mg/2 Ml Sdv) 10 mg IVPUSH ONETIME ONE Stop: 01/26/21 14:08 Last Admin: 01/26/21 14:31 Dose: 10 mg Documented by: Non-Formulary Medication (Buprenorphine Hcl/Naloxone Hcl) 3 tab SL TID PRN PRN Reason: Abdominal Pain Ondansetron HCl (Ondansetron 4 Mg/2 Ml Sdv) Confirm Administered Dose 4 mg .ROUTE .STK-MED ONE Stop: 01/26/21 20:50 Last Admin: 01/26/21 21:47 Dose: Not Given Documented by: Ondansetron HCl (Ondansetron 4 Mg/2 Ml Sdv) 4 mg IVPUSH Q4H PRN PRN Reason: Nausea/Vomiting Last Admin: 01/26/21 21:47 Dose: 4 mg Documented by: Potassium Chloride (Potassium Chloride 20 Meq Tab.Er) 40 meq PO ONETIME ONE Stop: 01/28/21 08:40 Last Admin: 01/28/21 09:38 Dose: 40 meq Documented by: - Exam General: No Acute Distress HEENT: Pupils Equal, Pupils Reactive Neck: Supple Lungs: Clear to Auscultation, Normal Respiratory Effort Cardiovascular: Regular Rate, Regular Rhythm GI/Abdominal Exam: Normal Bowel Sounds, Soft, Non-Tender Extremities: Normal Inspection Peripheral Pulses: 2+: Dorsalis Pedis (L), Dorsalis Pedis (R) Skin: Warm, Dry, Intact Neurological: No New Focal Deficit - Patient Data Lab Results Last 24 hrs: Laboratory Results - last 24 hr 01/29/21 01/29/21 01/29/21 Range/Units 12:34 14:33 18:46 POC Glucose 419 H* 316 H 161 H (70-99) mg/dL 01/29/21 01/30/21 01/30/21 Range/Units 22:52 02:56 06:52 POC Glucose 188 H 277 H 318 H (70-99) mg/dL Result Diagrams: 01/29/21 05:20 01/29/21 05:20 Donaldo Results Last 24 hrs: Microbiology 01/26/21 21:40 Urine Culture - Final Urine Escherichia Coli Sepsis Event Note - Evaluation Sepsis Screening Result: No Definite Risk - Focused Exam Vital Signs: Vital Signs Temp Resp BP Pulse Ox 01/30/21 09:00 24 H 110/68 99 01/30/21 08:00 96.8 F L 16 105/53 L 99 01/30/21 07:00 16 126/79 98 01/30/21 06:00 13 129/80 97 01/30/21 05:00 18 145/102 H 98 01/30/21 04:00 14 148/89 H 98 01/30/21 03:00 98.3 F 12 120/86 96 01/30/21 02:00 10 L 123/84 97 01/30/21 01:00 12 122/83 97 01/30/21 00:00 98.0 F 12 124/85 97 01/29/21 23:00 17 129/93 H 95 - Problem List Review Problem List Initiated/Reviewed/Updated: Yes - My Orders Last 24 Hours: My Active Orders 01/29/21 12:00 Accu Check [Blood Glucose Check, Bedside] [RC] Q4H 01/29/21 13:45 Insert Clements Catheter [Insert Urinary Catheter] [OM.PC] Routine 01/29/21 14:17 Urinary Catheter Assessment [RC] ASDIRECTED 01/30/21 10:30 Sodium Chloride 0.45% 500 ml IV ASDIRECTED 01/30/21 12:00 Vital Signs [RC] Q4H - Plan Plan:: 25-year-old male with type 1 diabetes mellitus admitted for DKA, hypernatremia, urinary tract infection, and gastroparesis. -Sliding scale low-dose. DKA resolved. Downgrade to medical surgical floor. -Continue Suboxone and IV erythromycin for nausea and vomiting. -Metoclopramide. Zofran. Protonix. Diphenhydramine. -Ceftriaxone for UTI. Urine is growing E. coli. -Half a bolus of half-normal saline. <Brandon Perry - Last Filed: 01/30/21 14:48> - Patient Data Vitals - Most Recent: Last Vital Signs Temp 97.0 F 01/30/21 12:37 Pulse 109 H 01/26/21 18:57 Resp 20 01/30/21 12:37 BP 96/46 L 01/30/21 12:37 Pulse Ox 99 01/30/21 12:37 I&O - Last 24 Hours: Intake & Output 01/29/21 01/30/21 01/30/21 22:59 06:59 14:59 Intake Total 1338 892 Output Total 1150 1125 Balance 188 -233 Lab Results Last 24 Hours: Laboratory Results - last 24 hr 01/29/21 01/29/21 01/29/21 Range/Units 14:33 18:46 22:52 POC Glucose 316 H 161 H 188 H (70-99) mg/dL 01/30/21 01/30/21 01/30/21 Range/Units 02:56 06:52 11:12 POC Glucose 277 H 318 H 395 H (70-99) mg/dL Donaldo Results Last 24 Hours: Microbiology 01/26/21 21:40 Urine Culture - Final Urine Escherichia Coli Med Orders - Current: Current Medications Dextrose/Water (50% Dextrose In Water 50 Ml Syringe) 50 ml IVPUSH ASDIRECTED PRN PRN Reason: Hypoglycemia Enoxaparin Sodium (Enoxaparin 40 Mg/0.4 Ml Syringe) 40 mg SUBCUT Q24H [facility] Last Admin: 01/29/21 16:45 Dose: 40 mg Documented by: Glucagon (Glucagon,Human Recombinant 1 Mg Vial) 1 mg IM ASDIRECTED PRN PRN Reason: Hypoglycemia Ceftriaxone Sodium/Dextrose 1 (gm/ Premix) 50 mls @ 100 mls/hr IV Q24H [facility] Last Admin: 01/29/21 22:47 Dose: 100 mls/hr Documented by: Erythromycin Lactobionate 300 (mg/ Sodium Chloride) 100 mls @ 100 mls/hr IV Q6H [facility] Last Admin: 01/30/21 12:15 Dose: 100 mls/hr Documented by: Sodium Chloride (Sodium Chloride 0.45%) 1,000 mls @ 75 mls/hr IV ASDIRECTED [facility] Last Infusion: 01/30/21 01:45 Dose: 0 mls/hr Documented by: Sodium Chloride (Sodium Chloride 0.45%) 500 mls @ 75 mls/hr IV ASDIRECTED [facility] Last Admin: 01/30/21 11:00 Dose: 75 mls/hr Documented by: Insulin Aspart (Insulin Aspart 100 Units/Ml 3 Ml Pen) 0 unit SUBCUT Q4H [facility]; Protocol Last Admin: 01/30/21 11:13 Dose: 10 units Documented by: Metoclopramide HCl (Metoclopramide 10 Mg Tab) 10 mg PO TID PRN PRN Reason: Nausea/Vomiting Last Admin: 01/29/21 13:55 Dose: 10 mg Documented by: Ondansetron HCl (Ondansetron 4 Mg Tab.Dis) 4 mg PO Q6H PRN PRN Reason: Nausea Last Admin: 01/30/21 13:19 Dose: 4 mg Documented by: Ondansetron HCl (Ondansetron 4 Mg/2 Ml Sdv) 4 mg IVPUSH Q6H PRN PRN Reason: Nausea/Vomiting Last Admin: 01/30/21 11:17 Dose: 4 mg Documented by: Pantoprazole Sodium (Pantoprazole 40 Mg/10 Ml Syringe) 40 mg IVPUSH Q24H [facility] Last Admin: 01/29/21 16:45 Dose: 40 mg Documented by: Buprenorphine Hcl/Naloxone Hcl 1 Each Tab.Subl 8/2 MgPt Own 1 each PO TID PRN PRN Reason: WITHDRAWAL Last Admin: 01/30/21 08:49 Dose: 1 each Documented by: Sodium Chloride (Sodium Chloride 0.9% 10 Ml Syringe) 10 ml FLUSH ASDIRECTED PRN PRN Reason: Keep Vein Open Last Admin: 01/26/21 14:32 Dose: 10 ml Documented by: Sodium Chloride (Sodium Chloride 0.9% 2.5 Ml Syringe) 2.5 ml FLUSH ASDIRECTED PRN PRN Reason: Keep Vein Open Last Admin: 01/26/21 14:32 Dose: 2.5 ml Documented by: Discontinued Medications Diphenhydramine HCl (Diphenhydramine 50 Mg/Ml Sdv) 25 mg IVPUSH ONETIME ONE Stop: 01/26/21 14:08 Last Admin: 01/26/21 14:31 Dose: 25 mg Documented by: Diphenhydramine HCl (Diphenhydramine 25 Mg Cap) 25 mg PO ONETIME ONE Stop: 01/26/21 21:19 Last Admin: 01/26/21 21:48 Dose: 25 mg Documented by: Diphenhydramine HCl (Diphenhydramine 25 Mg Cap) 25 mg PO ONETIME ONE Stop: 01/28/21 10:01 Last Admin: 01/28/21 09:38 Dose: 25 mg Documented by: Diphenhydramine HCl (Diphenhydramine 50 Mg/Ml Sdv) 25 mg IVPUSH Q4H PRN PRN Reason: Itching Stop: 01/29/21 20:00 Last Admin: 01/29/21 10:32 Dose: 25 mg Documented by: Diphenhydramine HCl (Diphenhydramine 25 Mg Cap) 25 mg PO ONETIME ONE Stop: 01/30/21 04:09 Hydromorphone HCl (Hydromorphone 1 Mg/Ml Syringe) 0.5 mg IVPUSH Q4H PRN PRN Reason: Pain Stop: 01/28/21 20:59 Last Admin: 01/28/21 06:32 Dose: 0.5 mg Documented by: Sodium Chloride (Normal Saline) 1,000 mls @ 999 mls/hr IV ASDIRECTED [facility] Last Admin: 01/26/21 14:32 Dose: 999 mls/hr Documented by: Sodium Chloride (Normal Saline) 1,000 mls @ 999 mls/hr IV ASDIRECTED [facility] Insulin Human Regular 100 unit (/ Sodium Chloride) 100 mls @ 6 mls/hr IV TITRATE [facility]; Protocol Lactated Ringer's (Ringers, Lactated) 1,000 mls @ 999 mls/hr IV ASDIRECTED [facility] Last Admin: 01/26/21 15:59 Dose: 999 mls/hr Documented by: Insulin Regular in 0.9 % NACL (100 unit/ Premix) 100 mls @ 6 mls/hr IV TITRATE [facility]; Protocol Last Titration: 01/29/21 09:38 Dose: 0 unit/hr, 0 mls/hr Documented by: Lactated Ringer's (Ringers, Lactated) 1,000 mls @ 150 mls/hr IV ASDIRECTED [facility] Last Infusion: 01/26/21 22:13 Dose: 0 mls/hr Documented by: Dextrose/Water (Dextrose 5% In Water) 1,000 mls @ 100 mls/hr IV ASDIRECTED [facility] Last Admin: 01/29/21 08:20 Dose: 100 mls/hr Documented by: Potassium Chloride (Kcl In Water 40 Meq/100 Ml) 100 mls @ 25 mls/hr IV ONETIME ONE Stop: 01/28/21 13:59 Last Admin: 01/28/21 09:54 Dose: 25 mls/hr Documented by: Insulin Aspart (Insulin Aspart 100 Units/Ml 10 Ml Vial) 10 unit SUBCUT STAT STA Stop: 01/26/21 15:00 Last Admin: 01/26/21 16:01 Dose: Not Given Documented by: Insulin Aspart (Insulin Aspart 100 Units/Ml 3 Ml Pen) 0 unit SUBCUT QIDACANDBED [facility]; Protocol Last Admin: 01/29/21 12:44 Dose: 8 unit Documented by: Metoclopramide HCl (Metoclopramide 10 Mg/2 Ml Sdv) 10 mg IVPUSH ONETIME ONE Stop: 01/26/21 14:08 Last Admin: 01/26/21 14:31 Dose: 10 mg Documented by: Non-Formulary Medication (Buprenorphine Hcl/Naloxone Hcl) 3 tab SL TID PRN PRN Reason: Abdominal Pain Ondansetron HCl (Ondansetron 4 Mg/2 Ml Sdv) Confirm Administered Dose 4 mg .ROUTE .STK-MED ONE Stop: 01/26/21 20:50 Last Admin: 01/26/21 21:47 Dose: Not Given Documented by: Ondansetron HCl (Ondansetron 4 Mg/2 Ml Sdv) 4 mg IVPUSH Q4H PRN PRN Reason: Nausea/Vomiting Last Admin: 01/26/21 21:47 Dose: 4 mg Documented by: Potassium Chloride (Potassium Chloride 20 Meq Tab.Er) 40 meq PO ONETIME ONE Stop: 01/28/21 08:40 Last Admin: 01/28/21 09:38 Dose: 40 meq Documented by: - Patient Data Lab Results Last 24 hrs: Laboratory Results - last 24 hr 01/29/21 01/29/21 01/29/21 Range/Units 14:33 18:46 22:52 POC Glucose 316 H 161 H 188 H (70-99) mg/dL 01/30/21 01/30/21 01/30/21 Range/Units 02:56 06:52 11:12 POC Glucose 277 H 318 H 395 H (70-99) mg/dL Result Diagrams: 01/29/21 05:20 01/29/21 05:20 Donaldo Results Last 24 hrs: Microbiology 01/26/21 21:40 Urine Culture - Final Urine Escherichia Coli Sepsis Event Note - Focused Exam Vital Signs: Vital Signs Temp Resp BP Pulse Ox 01/30/21 12:37 97.0 F 20 96/46 L 99 01/30/21 09:00 24 H 110/68 99 01/30/21 08:00 96.8 F L 16 105/53 L 99 01/30/21 07:00 16 126/79 98 01/30/21 06:00 13 129/80 97 01/30/21 05:00 18 145/102 H 98 01/30/21 04:00 14 148/89 H 98 01/30/21 03:00 98.3 F 12 120/86 96 - Problem List & Annotations (1) DKA, type 1 SNOMED Code(s): 96190313, 97189791 Code(s): E10.10 - TYPE 1 DIABETES MELLITUS WITH KETOACIDOSIS WITHOUT COMA Status: Acute Current Visit: Yes (2) Dehydration SNOMED Code(s): 58586175 Code(s): E86.0 - DEHYDRATION Status: Acute Current Visit: Yes (3) Diabetic gastroparesis SNOMED Code(s): 179009372 Code(s): E11.43 - TYPE 2 DIABETES W DIABETIC AUTONOMIC (POLY)NEUROPATHY; K31.84 - GASTROPARESIS Status: Acute Priority: High Current Visit: Yes (4) Hypernatremia SNOMED Code(s): 032696880 Code(s): E87.0 - HYPEROSMOLALITY AND HYPERNATREMIA Status: Acute Current Visit: Yes (5) Acute pyelonephritis SNOMED Code(s): 46978092 Code(s): N10 - ACUTE PYELONEPHRITIS Status: Acute Current Visit: No - Problem List Review Problem List Initiated/Reviewed/Updated: Yes - My Orders Last 24 Hours: My Active Orders 01/29/21 15:00 Insulin Aspart [NovoLOG] See Protocol SUBCUT Q4H 01/30/21 09:15 Transfer Patient (Change bed) [ADT] Routine - Plan Plan:: T1DM DKA- resolved Hyperkalemia Gastroparesis I agree with the above assessment and plan.
[2021-01-30] MEDS ORDERED: Sodium Chloride 0.45% 500 ML IV SCH (10:30)
[2021-01-30] MEDS: Ondansetron 4 MG/2 ML SDV IVPUSH PRN ×2 (11:17→23:44)
[2021-01-30] MEDS: Enoxaparin 40 MG/0.4 ML Syringe SUBCUT SCH (16:58)
[2021-01-30] MEDS: Pantoprazole 40 MG/10 ML Syringe IVPUSH SCH (16:59)
[2021-01-30] MEDS: cefTRIAXone 1 GM in Premix Bag 1 BAG IV SCH (22:33)
[2021-01-31] MEDS: Insulin Aspart 100 Units/ML 3 ML Pen SUBCUT SCH ×6 (03:38→23:31)
[2021-01-31] MEDS: SODIUM CHLORIDE 0.9% IV SCH ×3 (06:43→18:05)
[2021-01-31] MEDS: ERYTHROMYCIN LACTOBIONATE IV SCH ×3 (06:43→18:05)
[2021-01-31] MEDS: Ondansetron 4 MG/2 ML SDV IVPUSH PRN ×2 (08:29→14:28)
[2021-01-31] MEDS: Enoxaparin 40 MG/0.4 ML Syringe SUBCUT SCH (15:33)
[2021-01-31] MEDS: Pantoprazole 40 MG/10 ML Syringe IVPUSH SCH (15:33)
[2021-01-31] MEDS: diphenhydrAMINE 50 MG/ML SDV IVPUSH PRN (18:05)
[2021-01-31] MEDS: cefTRIAXone 1 GM in Premix Bag 1 BAG IV SCH (23:30)
[2021-02-01] MEDS: ERYTHROMYCIN LACTOBIONATE IV SCH ×4 (00:28→17:31)
[2021-02-01] MEDS: SODIUM CHLORIDE 0.9% IV SCH ×4 (00:28→17:31)
[2021-02-01] MEDS: Ondansetron 4 MG/2 ML SDV IVPUSH PRN ×3 (00:47→23:28)
[2021-02-01] MEDS: Insulin Aspart 100 Units/ML 3 ML Pen SUBCUT SCH ×6 (03:35→23:34)
[2021-02-01] MEDS: NALOXONE HCL PO PRN (09:19)
[2021-02-01] MEDS: BUPRENORPHINE HCL PO PRN (09:19)
--- NOTE | 2021-02-01 09:37 | PCM.PN ---
<Margarita Ho M - Last Filed: 02/01/21 12:44> - General Info Date of Service: 02/01/21 Admission Dx/Problem (Free Text): Admission Diagnosis/Problem Admission Diagnosis/Problem Hypernatremia Subjective Update: Feeling nauseated this morning, reports he needs his Suboxone. Reports nausea starts when urge to urinate comes and when he urinates. No pain with urination. Intermittent straight cath needed for neurogenic bladder. Denies chest pain, SOB. Tolerating crackers and water. Nausea intermittently. Not feeling ready for home. Poor social support. Functional Status: Reports: Tolerating Diet (tolerating crackers), Ambulating - Review of Systems General: Reports: No Symptoms. Denies: Weakness, Fatigue HEENT: Reports: No Symptoms Pulmonary: Denies: Shortness of Breath Cardiovascular: Denies: Chest Pain Gastrointestinal: Reports: Decreased Appetite, Nausea Genitourinary: Reports: Retention. Denies: Flank Pain Musculoskeletal: Reports: No Symptoms. Denies: Neck Pain Skin: Reports: No Symptoms Neurological: Reports: No Symptoms Psychiatric: Reports: No Symptoms - Patient Data Vitals - Most Recent: Last Vital Signs Temp 98.5 F 02/01/21 08:27 Pulse 108 H 02/01/21 08:27 Resp 22 H 02/01/21 08:27 BP 122/86 02/01/21 08:27 Pulse Ox 100 02/01/21 08:27 Weight - Most Recent: 120 lb I&O - Last 24 Hours: Intake & Output 01/31/21 02/01/21 02/01/21 22:59 06:59 14:59 Intake Total 400 600 Output Total 1512 1000 Balance -1112 -400 Lab Results Last 24 Hours: Laboratory Results - last 24 hr 01/31/21 01/31/21 01/31/21 Range/Units 11:20 15:31 17:25 POC Glucose 173 H 347 H 301 H (70-99) mg/dL 01/31/21 01/31/21 02/01/21 Range/Units 19:48 23:03 03:32 POC Glucose 202 H 163 H 191 H (70-99) mg/dL 02/01/21 Range/Units 06:26 POC Glucose 255 H (70-99) mg/dL Med Orders - Current: Current Medications Dextrose/Water (50% Dextrose In Water 50 Ml Syringe) 50 ml IVPUSH ASDIRECTED PRN PRN Reason: Hypoglycemia Diphenhydramine HCl (Diphenhydramine 50 Mg/Ml Sdv) 25 mg IVPUSH Q6H PRN PRN Reason: Nausea Last Admin: 01/31/21 18:05 Dose: 25 mg Documented by: Enoxaparin Sodium (Enoxaparin 40 Mg/0.4 Ml Syringe) 40 mg SUBCUT Q24H [facility] Last Admin: 01/31/21 15:33 Dose: 40 mg Documented by: Glucagon (Glucagon,Human Recombinant 1 Mg Vial) 1 mg IM ASDIRECTED PRN PRN Reason: Hypoglycemia Ceftriaxone Sodium/Dextrose 1 (gm/ Premix) 50 mls @ 100 mls/hr IV Q24H [facility] Last Admin: 01/31/21 23:30 Dose: 100 mls/hr Documented by: Erythromycin Lactobionate 300 (mg/ Sodium Chloride) 100 mls @ 100 mls/hr IV Q6H [facility] Last Admin: 02/01/21 06:28 Dose: 100 mls/hr Documented by: Insulin Aspart (Insulin Aspart 100 Units/Ml 3 Ml Pen) 0 unit SUBCUT Q4H [facility]; Protocol Last Admin: 02/01/21 06:27 Dose: 6 units Documented by: Metoclopramide HCl (Metoclopramide 10 Mg Tab) 10 mg PO TID PRN PRN Reason: Nausea/Vomiting Last Admin: 01/29/21 13:55 Dose: 10 mg Documented by: Ondansetron HCl (Ondansetron 4 Mg Tab.Dis) 4 mg PO Q6H PRN PRN Reason: Nausea Last Admin: 01/30/21 13:19 Dose: 4 mg Documented by: Ondansetron HCl (Ondansetron 4 Mg/2 Ml Sdv) 4 mg IVPUSH Q6H PRN PRN Reason: Nausea/Vomiting Last Admin: 02/01/21 00:47 Dose: 4 mg Documented by: Pantoprazole Sodium (Pantoprazole 40 Mg/10 Ml Syringe) 40 mg IVPUSH Q24H [facility] Last Admin: 01/31/21 15:33 Dose: 40 mg Documented by: Buprenorphine Hcl/Naloxone Hcl 1 Each Tab.Subl 8/2 MgPt Own 1 each PO TID PRN PRN Reason: WITHDRAWAL Last Admin: 02/01/21 09:19 Dose: 1 each Documented by: Sodium Chloride (Sodium Chloride 0.9% 10 Ml Syringe) 10 ml FLUSH ASDIRECTED PRN PRN Reason: Keep Vein Open Last Admin: 01/26/21 14:32 Dose: 10 ml Documented by: Sodium Chloride (Sodium Chloride 0.9% 2.5 Ml Syringe) 2.5 ml FLUSH ASDIRECTED PRN PRN Reason: Keep Vein Open Last Admin: 01/26/21 14:32 Dose: 2.5 ml Documented by: Discontinued Medications Diphenhydramine HCl (Diphenhydramine 50 Mg/Ml Sdv) 25 mg IVPUSH ONETIME ONE Stop: 01/26/21 14:08 Last Admin: 01/26/21 14:31 Dose: 25 mg Documented by: Diphenhydramine HCl (Diphenhydramine 25 Mg Cap) 25 mg PO ONETIME ONE Stop: 01/26/21 21:19 Last Admin: 01/26/21 21:48 Dose: 25 mg Documented by: Diphenhydramine HCl (Diphenhydramine 25 Mg Cap) 25 mg PO ONETIME ONE Stop: 01/28/21 10:01 Last Admin: 01/28/21 09:38 Dose: 25 mg Documented by: Diphenhydramine HCl (Diphenhydramine 50 Mg/Ml Sdv) 25 mg IVPUSH Q4H PRN PRN Reason: Itching Stop: 01/29/21 20:00 Last Admin: 01/29/21 10:32 Dose: 25 mg Documented by: Diphenhydramine HCl (Diphenhydramine 25 Mg Cap) 25 mg PO ONETIME ONE Stop: 01/30/21 04:09 Last Admin: 01/30/21 18:18 Dose: Not Given Documented by: Diphenhydramine HCl (Diphenhydramine 25 Mg Cap) 25 mg PO ONETIME ONE Stop: 01/30/21 18:16 Last Admin: 01/30/21 18:22 Dose: 25 mg Documented by: Hydromorphone HCl (Hydromorphone 1 Mg/Ml Syringe) 0.5 mg IVPUSH Q4H PRN PRN Reason: Pain Stop: 01/28/21 20:59 Last Admin: 01/28/21 06:32 Dose: 0.5 mg Documented by: Sodium Chloride (Normal Saline) 1,000 mls @ 999 mls/hr IV ASDIRECTED [facility] Last Admin: 01/26/21 14:32 Dose: 999 mls/hr Documented by: Sodium Chloride (Normal Saline) 1,000 mls @ 999 mls/hr IV ASDIRECTED [facility] Insulin Human Regular 100 unit (/ Sodium Chloride) 100 mls @ 6 mls/hr IV TITRATE [facility]; Protocol Lactated Ringer's (Ringers, Lactated) 1,000 mls @ 999 mls/hr IV ASDIRECTED [facility] Last Admin: 01/26/21 15:59 Dose: 999 mls/hr Documented by: Insulin Regular in 0.9 % NACL (100 unit/ Premix) 100 mls @ 6 mls/hr IV TITRATE [facility]; Protocol Last Titration: 01/29/21 09:38 Dose: 0 unit/hr, 0 mls/hr Documented by: Lactated Ringer's (Ringers, Lactated) 1,000 mls @ 150 mls/hr IV ASDIRECTED [facility] Last Infusion: 01/26/21 22:13 Dose: 0 mls/hr Documented by: Dextrose/Water (Dextrose 5% In Water) 1,000 mls @ 100 mls/hr IV ASDIRECTED [facility] Last Admin: 01/29/21 08:20 Dose: 100 mls/hr Documented by: Potassium Chloride (Kcl In Water 40 Meq/100 Ml) 100 mls @ 25 mls/hr IV ONETIME ONE Stop: 01/28/21 13:59 Last Admin: 01/28/21 09:54 Dose: 25 mls/hr Documented by: Sodium Chloride (Sodium Chloride 0.45%) 1,000 mls @ 75 mls/hr IV ASDIRECTED [facility] Last Infusion: 01/30/21 01:45 Dose: 0 mls/hr Documented by: Sodium Chloride (Sodium Chloride 0.45%) 500 mls @ 75 mls/hr IV ASDIRECTED [facility] Last Admin: 01/30/21 11:00 Dose: 75 mls/hr Documented by: Insulin Aspart (Insulin Aspart 100 Units/Ml 10 Ml Vial) 10 unit SUBCUT STAT STA Stop: 01/26/21 15:00 Last Admin: 01/26/21 16:01 Dose: Not Given Documented by: Insulin Aspart (Insulin Aspart 100 Units/Ml 3 Ml Pen) 0 unit SUBCUT QIDACANDBED [facility]; Protocol Last Admin: 01/29/21 12:44 Dose: 8 unit Documented by: Metoclopramide HCl (Metoclopramide 10 Mg/2 Ml Sdv) 10 mg IVPUSH ONETIME ONE Stop: 01/26/21 14:08 Last Admin: 01/26/21 14:31 Dose: 10 mg Documented by: Non-Formulary Medication (Buprenorphine Hcl/Naloxone Hcl) 3 tab SL TID PRN PRN Reason: Abdominal Pain Ondansetron HCl (Ondansetron 4 Mg/2 Ml Sdv) Confirm Administered Dose 4 mg .ROUTE .STK-MED ONE Stop: 01/26/21 20:50 Last Admin: 01/26/21 21:47 Dose: Not Given Documented by: Ondansetron HCl (Ondansetron 4 Mg/2 Ml Sdv) 4 mg IVPUSH Q4H PRN PRN Reason: Nausea/Vomiting Last Admin: 01/26/21 21:47 Dose: 4 mg Documented by: Potassium Chloride (Potassium Chloride 20 Meq Tab.Er) 40 meq PO ONETIME ONE Stop: 01/28/21 08:40 Last Admin: 01/28/21 09:38 Dose: 40 meq Documented by: - Exam Quality Assessment: No: Supplemental Oxygen General: Alert, Oriented, Cooperative, Mild Distress (nauseated currently. ) Lungs: Clear to Auscultation, Normal Respiratory Effort Cardiovascular: Regular Rate, Regular Rhythm GI/Abdominal Exam: Normal Bowel Sounds, Soft, Tender (mild tenderness) Extremities: Normal Inspection, Normal Range of Motion, Non-Tender, No Pedal [place] Neurological: No New Focal Deficit Psy/Mental Status: Alert, Normal Affect, Normal Mood - Patient Data Lab Results Last 24 hrs: Laboratory Results - last 24 hr 01/31/21 01/31/21 01/31/21 Range/Units 11:20 15:31 17:25 POC Glucose 173 H 347 H 301 H (70-99) mg/dL 01/31/21 01/31/21 02/01/21 Range/Units 19:48 23:03 03:32 POC Glucose 202 H 163 H 191 H (70-99) mg/dL 02/01/21 Range/Units 06:26 POC Glucose 255 H (70-99) mg/dL Result Diagrams: 01/29/21 05:20 01/29/21 05:20 Sepsis Event Note - Evaluation Sepsis Screening Result: No Definite Risk - Focused Exam Vital Signs: Vital Signs Temp Pulse Resp BP Pulse Ox 02/01/21 08:27 98.5 F 108 H 22 H 122/86 100 02/01/21 03:38 97.4 F 100 16 113/72 100 02/01/21 00:27 98.1 F 105 H 16 118/75 100 - Problem List & Annotations (1) Diabetic gastroparesis SNOMED Code(s): 656038489 Code(s): E11.43 - TYPE 2 DIABETES W DIABETIC AUTONOMIC (POLY)NEUROPATHY; K31. 84 - GASTROPARESIS Status: Acute Priority: High Current Visit: Yes (2) Urinary tract infection SNOMED Code(s): 91178000 Code(s): N39.0 - URINARY TRACT INFECTION, SITE NOT SPECIFIED Status: Acute Current Visit: No Qualifiers: Urinary tract infection type: acute cystitis Hematuria presence: with hematuria Qualified Code(s): N30.01 - Acute cystitis with hematuria (3) Hypernatremia SNOMED Code(s): 432925700 Code(s): E87.0 - HYPEROSMOLALITY AND HYPERNATREMIA Status: Resolved Current Visit: Yes (4) Depression SNOMED Code(s): 52879606 Code(s): F32.9 - MAJOR DEPRESSIVE DISORDER, SINGLE EPISODE, UNSPECIFIED Status: Chronic Current Visit: No Qualifiers: Depression Type: major depressive disorder Major depression recurrence: unspecified whether recurrent Active/Remission status: in remission of unspecified degree Qualified Code(s): F32.5 - Major depressive disorder, single episode, in full remission (5) Diabetes type 1, uncontrolled SNOMED Code(s): 85217550, 599383434 Code(s): E10.65 - TYPE 1 DIABETES MELLITUS WITH HYPERGLYCEMIA Status: Chronic Priority: Medium Current Visit: No Qualifiers: Glycemic state: with hyperglycemia Qualified Code(s): E10.65 - Type 1 diabetes mellitus with hyperglycemia (6) History of neurogenic bladder SNOMED Code(s): 443570878 Code(s): Z87.448 - PERSONAL HISTORY OF OTHER DISEASES OF URINARY SYSTEM Status: Chronic Current Visit: No (7) Hx of opioid abuse SNOMED Code(s): 127792621 Code(s): F11.11 - OPIOID ABUSE, IN REMISSION Status: Chronic Current Visit: No (8) Noncompliance with medication regimen SNOMED Code(s): 282480666 Code(s): Z91.14 - PATIENT'S OTHER NONCOMPLIANCE WITH MEDICATION REGIMEN Status: Chronic Current Visit: No (9) DKA, type 1 SNOMED Code(s): 46359669, 16454824 Code(s): E10.10 - TYPE 1 DIABETES MELLITUS WITH KETOACIDOSIS WITHOUT COMA Status: Resolved Current Visit: Yes - Problem List Review Problem List Initiated/Reviewed/Updated: Yes - Plan Plan:: This 25 year old male admitted with DKA, UTI wth neurogenic bladder, gastroparesis, and hypernatremia 1. Gastroparesis - N/V improving, continue Erythromycin - N/V multi-factorial due to hx opioid abuse and use of suboxone. - Continue encouraging PO intake as tolerated, still not tolerating much intake. 2. E Coli UTI, complicated. - Continue Rocephin, Day 7, stop today as abx course is completed. 3. DM Type 1 - DKA resolved, hyperkalemia resolved 4. Hx Opioid abuse - Continue Suboxone. 5. Neurogenic bladder: - Continue intermittent cath - Monitor I/O - Limit Benadryl due to urinary retention VTE prophylaxis: Lovenox Code Status: Full code Dispo: 2-3 days pending improvement <Brandon Perry - Last Filed: 02/01/21 14:51> - Patient Data Vitals - Most Recent: Last Vital Signs Temp 97.1 F 02/01/21 11:42 Pulse 112 H 02/01/21 11:42 Resp 20 02/01/21 11:42 BP 109/73 02/01/21 11:42 Pulse Ox 99 02/01/21 11:42 I&O - Last 24 Hours: Intake & Output 01/31/21 02/01/21 02/01/21 22:59 06:59 14:59 Intake Total 400 600 Output Total 1512 1000 Balance -1112 -400 Lab Results Last 24 Hours: Laboratory Results - last 24 hr 01/31/21 01/31/21 01/31/21 Range/Units 15:31 17:25 19:48 POC Glucose 347 H 301 H 202 H (70-99) mg/dL 01/31/21 02/01/21 02/01/21 Range/Units 23:03 03:32 06:26 POC Glucose 163 H 191 H 255 H (70-99) mg/dL 02/01/21 Range/Units 11:30 POC Glucose 341 H (70-99) mg/dL Med Orders - Current: Current Medications Dextrose/Water (50% Dextrose In Water 50 Ml Syringe) 50 ml IVPUSH ASDIRECTED PRN PRN Reason: Hypoglycemia Diphenhydramine HCl (Diphenhydramine 50 Mg/Ml Sdv) 25 mg IVPUSH Q6H PRN PRN Reason: Nausea Last Admin: 01/31/21 18:05 Dose: 25 mg Documented by: Enoxaparin Sodium (Enoxaparin 40 Mg/0.4 Ml Syringe) 40 mg SUBCUT Q24H [facility] Last Admin: 01/31/21 15:33 Dose: 40 mg Documented by: Glucagon (Glucagon,Human Recombinant 1 Mg Vial) 1 mg IM ASDIRECTED PRN PRN Reason: Hypoglycemia Ceftriaxone Sodium/Dextrose 1 (gm/ Premix) 50 mls @ 100 mls/hr IV Q24H [facility] Stop: 02/01/21 23:00 Last Admin: 01/31/21 23:30 Dose: 100 mls/hr Documented by: Erythromycin Lactobionate 300 (mg/ Sodium Chloride) 100 mls @ 100 mls/hr IV Q6H [facility] Last Admin: 02/01/21 11:32 Dose: 100 mls/hr Documented by: Insulin Aspart (Insulin Aspart 100 Units/Ml 3 Ml Pen) 0 unit SUBCUT Q4H [facility]; Protocol Last Admin: 02/01/21 11:32 Dose: 8 units Documented by: Metoclopramide HCl (Metoclopramide 10 Mg Tab) 10 mg PO TID PRN PRN Reason: Nausea/Vomiting Last Admin: 01/29/21 13:55 Dose: 10 mg Documented by: Ondansetron HCl (Ondansetron 4 Mg Tab.Dis) 4 mg PO Q6H PRN PRN Reason: Nausea Last Admin: 01/30/21 13:19 Dose: 4 mg Documented by: Ondansetron HCl (Ondansetron 4 Mg/2 Ml Sdv) 4 mg IVPUSH Q6H PRN PRN Reason: Nausea/Vomiting Last Admin: 02/01/21 13:44 Dose: 4 mg Documented by: Pantoprazole Sodium (Pantoprazole 40 Mg/10 Ml Syringe) 40 mg IVPUSH Q24H [facility] Last Admin: 01/31/21 15:33 Dose: 40 mg Documented by: Buprenorphine Hcl/Naloxone Hcl 1 Each Tab.Subl 8/2 MgPt Own 1 each PO TID PRN PRN Reason: WITHDRAWAL Last Admin: 02/01/21 09:19 Dose: 1 each Documented by: Sodium Chloride (Sodium Chloride 0.9% 10 Ml Syringe) 10 ml FLUSH ASDIRECTED PRN PRN Reason: Keep Vein Open Last Admin: 01/26/21 14:32 Dose: 10 ml Documented by: Sodium Chloride (Sodium Chloride 0.9% 2.5 Ml Syringe) 2.5 ml FLUSH ASDIRECTED PRN PRN Reason: Keep Vein Open Last Admin: 01/26/21 14:32 Dose: 2.5 ml Documented by: Discontinued Medications Diphenhydramine HCl (Diphenhydramine 50 Mg/Ml Sdv) 25 mg IVPUSH ONETIME ONE Stop: 01/26/21 14:08 Last Admin: 01/26/21 14:31 Dose: 25 mg Documented by: Diphenhydramine HCl (Diphenhydramine 25 Mg Cap) 25 mg PO ONETIME ONE Stop: 01/26/21 21:19 Last Admin: 01/26/21 21:48 Dose: 25 mg Documented by: Diphenhydramine HCl (Diphenhydramine 25 Mg Cap) 25 mg PO ONETIME ONE Stop: 01/28/21 10:01 Last Admin: 01/28/21 09:38 Dose: 25 mg Documented by: Diphenhydramine HCl (Diphenhydramine 50 Mg/Ml Sdv) 25 mg IVPUSH Q4H PRN PRN Reason: Itching Stop: 01/29/21 20:00 Last Admin: 01/29/21 10:32 Dose: 25 mg Documented by: Diphenhydramine HCl (Diphenhydramine 25 Mg Cap) 25 mg PO ONETIME ONE Stop: 01/30/21 04:09 Last Admin: 01/30/21 18:18 Dose: Not Given Documented by: Diphenhydramine HCl (Diphenhydramine 25 Mg Cap) 25 mg PO ONETIME ONE Stop: 01/30/21 18:16 Last Admin: 01/30/21 18:22 Dose: 25 mg Documented by: Hydromorphone HCl (Hydromorphone 1 Mg/Ml Syringe) 0.5 mg IVPUSH Q4H PRN PRN Reason: Pain Stop: 01/28/21 20:59 Last Admin: 01/28/21 06:32 Dose: 0.5 mg Documented by: Sodium Chloride (Normal Saline) 1,000 mls @ 999 mls/hr IV ASDIRECTED [facility] Last Admin: 01/26/21 14:32 Dose: 999 mls/hr Documented by: Sodium Chloride (Normal Saline) 1,000 mls @ 999 mls/hr IV ASDIRECTED [facility] Insulin Human Regular 100 unit (/ Sodium Chloride) 100 mls @ 6 mls/hr IV TITRATE [facility]; Protocol Lactated Ringer's (Ringers, Lactated) 1,000 mls @ 999 mls/hr IV ASDIRECTED [facility] Last Admin: 01/26/21 15:59 Dose: 999 mls/hr Documented by: Insulin Regular in 0.9 % NACL (100 unit/ Premix) 100 mls @ 6 mls/hr IV TITRATE [facility]; Protocol Last Titration: 01/29/21 09:38 Dose: 0 unit/hr, 0 mls/hr Documented by: Lactated Ringer's (Ringers, Lactated) 1,000 mls @ 150 mls/hr IV ASDIRECTED [facility] Last Infusion: 01/26/21 22:13 Dose: 0 mls/hr Documented by: Dextrose/Water (Dextrose 5% In Water) 1,000 mls @ 100 mls/hr IV ASDIRECTED [facility] Last Admin: 01/29/21 08:20 Dose: 100 mls/hr Documented by: Potassium Chloride (Kcl In Water 40 Meq/100 Ml) 100 mls @ 25 mls/hr IV ONETIME ONE Stop: 01/28/21 13:59 Last Admin: 01/28/21 09:54 Dose: 25 mls/hr Documented by: Sodium Chloride (Sodium Chloride 0.45%) 1,000 mls @ 75 mls/hr IV ASDIRECTED [facility] Last Infusion: 01/30/21 01:45 Dose: 0 mls/hr Documented by: Sodium Chloride (Sodium Chloride 0.45%) 500 mls @ 75 mls/hr IV ASDIRECTED [facility] Last Admin: 01/30/21 11:00 Dose: 75 mls/hr Documented by: Insulin Aspart (Insulin Aspart 100 Units/Ml 10 Ml Vial) 10 unit SUBCUT STAT STA Stop: 01/26/21 15:00 Last Admin: 01/26/21 16:01 Dose: Not Given Documented by: Insulin Aspart (Insulin Aspart 100 Units/Ml 3 Ml Pen) 0 unit SUBCUT QIDACANDBED [facility]; Protocol Last Admin: 01/29/21 12:44 Dose: 8 unit Documented by: Metoclopramide HCl (Metoclopramide 10 Mg/2 Ml Sdv) 10 mg IVPUSH ONETIME ONE Stop: 01/26/21 14:08 Last Admin: 01/26/21 14:31 Dose: 10 mg Documented by: Non-Formulary Medication (Buprenorphine Hcl/Naloxone Hcl) 3 tab SL TID PRN PRN Reason: Abdominal Pain Ondansetron HCl (Ondansetron 4 Mg/2 Ml Sdv) Confirm Administered Dose 4 mg .ROUTE .STK-MED ONE Stop: 01/26/21 20:50 Last Admin: 01/26/21 21:47 Dose: Not Given Documented by: Ondansetron HCl (Ondansetron 4 Mg/2 Ml Sdv) 4 mg IVPUSH Q4H PRN PRN Reason: Nausea/Vomiting Last Admin: 01/26/21 21:47 Dose: 4 mg Documented by: Potassium Chloride (Potassium Chloride 20 Meq Tab.Er) 40 meq PO ONETIME ONE Stop: 01/28/21 08:40 Last Admin: 01/28/21 09:38 Dose: 40 meq Documented by: - Patient Data Lab Results Last 24 hrs: Laboratory Results - last 24 hr 01/31/21 01/31/21 01/31/21 Range/Units 15:31 17:25 19:48 POC Glucose 347 H 301 H 202 H (70-99) mg/dL 01/31/21 02/01/21 02/01/21 Range/Units 23:03 03:32 06:26 POC Glucose 163 H 191 H 255 H (70-99) mg/dL 02/01/21 Range/Units 11:30 POC Glucose 341 H (70-99) mg/dL Result Diagrams: 01/29/21 05:20 01/29/21 05:20 Sepsis Event Note - Focused Exam Vital Signs: Vital Signs Temp Pulse Resp BP Pulse Ox 02/01/21 11:42 97.1 F 112 H 20 109/73 99 02/01/21 08:27 98.5 F 108 H 22 H 122/86 100 02/01/21 03:38 97.4 F 100 16 113/72 100 - Problem List & Annotations (1) DKA, type 1 SNOMED Code(s): 03507124, 67263042 Code(s): E10.10 - TYPE 1 DIABETES MELLITUS WITH KETOACIDOSIS WITHOUT COMA Status: Resolved Current Visit: Yes (2) Dehydration SNOMED Code(s): 60401063 Code(s): E86.0 - DEHYDRATION Status: Acute Current Visit: Yes (3) Diabetic gastroparesis SNOMED Code(s): 737320749 Code(s): E11.43 - TYPE 2 DIABETES W DIABETIC AUTONOMIC (POLY)NEUROPATHY; K31. 84 - GASTROPARESIS Status: Acute Priority: High Current Visit: Yes (4) Hypernatremia SNOMED Code(s): 213685581 Code(s): E87.0 - HYPEROSMOLALITY AND HYPERNATREMIA Status: Resolved Current Visit: Yes (5) Acute pyelonephritis SNOMED Code(s): 26235565 Code(s): N10 - ACUTE PYELONEPHRITIS Status: Acute Current Visit: No - Problem List Review Problem List Initiated/Reviewed/Updated: Yes - Plan Plan:: I agree with the above assessment and plan.
[2021-02-01] MEDS: Enoxaparin 40 MG/0.4 ML Syringe SUBCUT SCH (15:21)
[2021-02-01] MEDS: Pantoprazole 40 MG/10 ML Syringe IVPUSH SCH (15:21)
[2021-02-01] MEDS: cefTRIAXone 1 GM in Premix Bag 1 BAG IV SCH (23:29)
[2021-02-02] MEDS: SODIUM CHLORIDE 0.9% IV SCH ×5 (00:05→23:21)
[2021-02-02] MEDS: ERYTHROMYCIN LACTOBIONATE IV SCH ×5 (00:05→23:21)
[2021-02-02] MEDS: Metoclopramide 10 MG Tab PO PRN (03:10)
[2021-02-02] MEDS: Insulin Aspart 100 Units/ML 3 ML Pen SUBCUT SCH ×6 (03:17→23:29)
[2021-02-02] MEDS: Ondansetron 4 MG/2 ML SDV IVPUSH PRN ×3 (06:33→23:21)
[2021-02-02] MEDS: BUPRENORPHINE HCL PO PRN (06:38)
[2021-02-02] MEDS: NALOXONE HCL PO PRN (06:38)
[2021-02-02 07:21] LABS: CARBON DIOXIDE,CO2 14.2 mmol/L (21.0-32.0); POTASSIUM,K 4.2 mmol/L (3.5-5.1)
[2021-02-02] MEDS ORDERED: Sodium Chloride 0.9% 1,000 ML IV SCH ×2 (13:30→15:30)
[2021-02-02] MEDS: Enoxaparin 40 MG/0.4 ML Syringe SUBCUT SCH (15:31)
[2021-02-02] MEDS: Pantoprazole 40 MG/10 ML Syringe IVPUSH SCH (15:32)
[2021-02-02] MEDS: Sodium Chloride 0.45% with KCl 1,000 ML IV SCH (20:16)
[2021-02-02 20:59] LABS: BLOOD UREA NITROGEN,BUN 14 mg/dL (7.0-18.0); CARBON DIOXIDE,CO2 17.2 mmol/L (21.0-32.0); CHLORIDE,CL 110 mmol/L (98-107); GLUCOSE RANDOM 204 mg/dL (74-106); POTASSIUM,K 3.4 mmol/L (3.5-5.1); SODIUM,NA 145 mmol/L (136-148)
[2021-02-02] MEDS: diphenhydrAMINE 50 MG/ML SDV IVPUSH PRN (23:21)
--- NOTE | 2021-02-02 23:56 | PCM.PN ---
- General Info Date of Service: 02/02/21 Admission Dx/Problem (Free Text): Admission Diagnosis/Problem Admission Diagnosis/Problem Hypernatremia Subjective Update: Patient has stayed in his bed today. He says he feels weak, nauseous. His blood sugars on the whole have come down but his fluid intake is not good. He still has nausea requiring Zofran. Functional Status: Reports: Other - Review of Systems General: Reports: Weakness, Fatigue, Malaise. Denies: Fever, Chills Pulmonary: Reports: No Symptoms Cardiovascular: Reports: No Symptoms Gastrointestinal: Reports: Decreased Appetite, Nausea, Vomiting Genitourinary: Reports: No Symptoms Musculoskeletal: Reports: No Symptoms Skin: Reports: No Symptoms Psychiatric: Reports: Depression - Patient Data Vitals - Most Recent: Last Vital Signs Temp 97.1 F 02/02/21 23:09 Pulse 107 H 02/02/21 23:09 Resp 16 02/02/21 23:09 BP 109/64 02/02/21 23:09 Pulse Ox 99 02/02/21 23:09 Weight - Most Recent: 113 lb 8 oz I&O - Last 24 Hours: Intake & Output 02/02/21 02/02/21 02/03/21 14:59 22:59 06:59 Intake Total 2009 Output Total 1350 Balance 660 Lab Results Last 24 Hours: Laboratory Results - last 24 hr 02/02/21 02/02/21 02/02/21 Range/Units 03:11 04:33 06:08 WBC 4.88 (4.0-11.0) K/uL RBC 3.94 L (4.50-5.90) M/uL Hgb 10.2 L (13.0-17.0) g/dL Hct 31.6 L (38.0-50.0) % MCV 80.2 (80.0-98.0) fL MCH 25.9 L (27.0-32.0) pg MCHC 32.3 (31.0-37.0) g/dL RDW Std Deviation 42.7 (28.0-62.0) fl RDW Coeff of Erika 15 (11.0-15.0) % Plt Count 215 (150-400) K/uL MPV 10.00 (7.40-12.00) fL Neut % (Auto) 71.3 (48.0-80.0) % Lymph % (Auto) 25.6 (16.0-40.0) % Mcculloch % (Auto) 2.3 (0.0-15.0) % Eos % (Auto) 0.4 (0.0-7.0) % Baso % (Auto) 0.4 (0.0-1.5) % Neut # (Auto) 3.5 (1.4-5.7) K/uL Lymph # (Auto) 1.3 (0.6-2.4) K/uL Mcculloch # (Auto) 0.1 (0.0-0.8) K/uL Eos # (Auto) 0.0 (0.0-0.7) K/uL Baso # (Auto) 0.0 (0.0-0.1) K/uL Nucleated RBC % 0.0 /100WBC Nucleated RBCs # 0 K/uL Sodium (136-148) mmol/L Potassium (3.5-5.1) mmol/L Chloride (98-107) mmol/L Carbon Dioxide (21.0-32.0) mmol/L BUN (7.0-18.0) mg/dL Creatinine (0.8-1.3) mg/dL Est Cr Clr Drug Dosing mL/min Estimated GFR (MDRD) ml/min Glucose (74-106) mg/dL POC Glucose 452 H* 367 H (70-99) mg/dL Calcium (8.5-10.1) mg/dL 02/02/21 02/02/21 02/02/21 Range/Units 06:08 06:31 12:02 WBC (4.0-11.0) K/uL RBC (4.50-5.90) M/uL Hgb (13.0-17.0) g/dL Hct (38.0-50.0) % MCV (80.0-98.0) fL MCH (27.0-32.0) pg MCHC (31.0-37.0) g/dL RDW Std Deviation (28.0-62.0) fl RDW Coeff of Erika (11.0-15.0) % Plt Count (150-400) K/uL MPV (7.40-12.00) fL Neut % (Auto) (48.0-80.0) % Lymph % (Auto) (16.0-40.0) % Mcculloch % (Auto) (0.0-15.0) % Eos % (Auto) (0.0-7.0) % Baso % (Auto) (0.0-1.5) % Neut # (Auto) (1.4-5.7) K/uL Lymph # (Auto) (0.6-2.4) K/uL M[place]ulloch # (Auto) (0.0-0.8) K/uL Eos # (Auto) (0.0-0.7) K/uL Baso # (Auto) (0.0-0.1) K/uL Nucleated RBC % /100WBC Nucleated RBCs # K/uL Sodium 144 (136-148) mmol/L Potassium 4.2 (3.5-5.1) mmol/L Chloride 105 (98-107) mmol/L Carbon Dioxide 14.2 L (21.0-32.0) mmol/L BUN 21 H (7.0-18.0) mg/dL Creatinine 1.6 H (0.8-1.3) mg/dL Est Cr Clr Drug Dosing 55.28 mL/min Estimated GFR (MDRD) 53.8 ml/min Glucose 362 H (74-106) mg/dL POC Glucose 318 H 167 H (70-99) mg/dL Calcium 9.0 (8.5-10.1) mg/dL 02/02/21 02/02/21 02/02/21 Range/Units 15:18 18:21 20:13 WBC (4.0-11.0) K/uL RBC (4.50-5.90) M/uL Hgb (13.0-17.0) g/dL Hct (38.0-50.0) % MCV (80.0-98.0) fL MCH (27.0-32.0) pg MCHC (31.0-37.0) g/dL RDW Std Deviation (28.0-62.0) fl RDW Coeff of Erika (11.0-15.0) % Plt Count (150-400) K/uL MPV (7.40-12.00) fL Neut % (Auto) (48.0-80.0) % Lymph % (Auto) (16.0-40.0) % Mcculloch % (Auto) (0.0-15.0) % Eos % (Auto) (0.0-7.0) % Baso % (Auto) (0.0-1.5) % Neut # (Auto) (1.4-5.7) K/uL Lymph # (Auto) (0.6-2.4) K/uL Mcculloch # (Auto) (0.0-0.8) K/uL Eos # (Auto) (0.0-0.7) K/uL Baso # (Auto) (0.0-0.1) K/uL Nucleated RBC % /100WBC Nucleated RBCs # K/uL Sodium 145 (136-148) mmol/L Potassium 3.4 L (3.5-5.1) mmol/L Chloride 110 H (98-107) mmol/L Carbon Dioxide 17.2 L (21.0-32.0) mmol/L BUN 14 (7.0-18.0) mg/dL Creatinine 1.4 H (0.8-1.3) mg/dL Est Cr Clr Drug Dosing 59.76 mL/min Estimated GFR (MDRD) > 60.0 ml/min Glucose 204 H (74-106) mg/dL POC Glucose 194 H 228 H (70-99) mg/dL Calcium 8.1 L (8.5-10.1) mg/dL 02/02/21 Range/Units 23:05 WBC (4.0-11.0) K/uL RBC (4.50-5.90) M/uL Hgb (13.0-17.0) g/dL Hct (38.0-50.0) % MCV (80.0-98.0) fL MCH (27.0-32.0) pg MCHC (31.0-37.0) g/dL RDW Std Deviation (28.0-62.0) fl RDW Coeff of Erika (11.0-15.0) % Plt Count (150-400) K/uL MPV (7.40-12.00) fL Neut % (Auto) (48.0-80.0) % Lymph % (Auto) (16.0-40.0) % Mcculloch % (Auto) (0.0-15.0) % Eos % (Auto) (0.0-7.0) % Baso % (Auto) (0.0-1.5) % Neut # (Auto) (1.4-5.7) K/uL Lymph # (Auto) (0.6-2.4) K/uL Mcculloch # (Auto) (0.0-0.8) K/uL Eos # (Auto) (0.0-0.7) K/uL Baso # (Auto) (0.0-0.1) K/uL Nucleated RBC % /100WBC Nucleated RBCs # K/uL Sodium (136-148) mmol/L Potassium (3.5-5.1) mmol/L Chloride (98-107) mmol/L Carbon Dioxide (21.0-32.0) mmol/L BUN (7.0-18.0) mg/dL Creatinine (0.8-1.3) mg/dL Est Cr Clr Drug Dosing mL/min Estimated GFR (MDRD) ml/min Glucose (74-106) mg/dL POC Glucose 287 H (70-99) mg/dL Calcium (8.5-10.1) mg/dL Med Orders - Current: Current Medications Dextrose/Water (50% Dextrose In Water 50 Ml Syringe) 50 ml IVPUSH ASDIRECTED PRN PRN Reason: Hypoglycemia Diphenhydramine HCl (Diphenhydramine 50 Mg/Ml Sdv) 25 mg IVPUSH Q6H PRN PRN Reason: Nausea Last Admin: 02/02/21 23:21 Dose: 25 mg Documented by: Enoxaparin Sodium (Enoxaparin 40 Mg/0.4 Ml Syringe) 40 mg SUBCUT Q24H [facility] Last Admin: 02/02/21 15:31 Dose: 40 mg Documented by: Glucagon (Glucagon,Human Recombinant 1 Mg Vial) 1 mg IM ASDIRECTED PRN PRN Reason: Hypoglycemia Erythromycin Lactobionate 300 (mg/ Sodium Chloride) 100 mls @ 100 mls/hr IV Q6H [facility] Last Admin: 02/02/21 23:21 Dose: 100 mls/hr Documented by: Sodium Chloride (Normal Saline) 1,000 mls @ 250 mls/hr IV ASDIRECTED [facility] Stop: 02/04/21 19:29 Last Admin: 02/02/21 15:35 Dose: 250 mls/hr Documented by: Potassium Chloride/Sodium Chloride (1/2 Ns With 20 Meq Kcl) 1,000 mls @ 250 mls/hr IV ASDIRECTED [facility] Stop: 02/04/21 23:59 Insulin Aspart (Insulin Aspart 100 Units/Ml 3 Ml Pen) 0 unit SUBCUT Q4H [facility]; Protocol Last Admin: 02/02/21 23:29 Dose: 6 units Documented by: Metoclopramide HCl (Metoclopramide 10 Mg Tab) 10 mg PO TID PRN PRN Reason: Nausea/Vomiting Last Admin: 02/02/21 03:10 Dose: 10 mg Documented by: Ondansetron HCl (Ondansetron 4 Mg Tab.Dis) 4 mg PO Q6H PRN PRN Reason: Nausea Last Admin: 01/30/21 13:19 Dose: 4 mg Documented by: Ondansetron HCl (Ondansetron 4 Mg/2 Ml Sdv) 4 mg IVPUSH Q6H PRN PRN Reason: Nausea/Vomiting Last Admin: 02/02/21 23:21 Dose: 4 mg Documented by: Pantoprazole Sodium (Pantoprazole 40 Mg/10 Ml Syringe) 40 mg IVPUSH Q24H [facility] Last Admin: 02/02/21 15:32 Dose: 40 mg Documented by: Buprenorphine Hcl/Naloxone Hcl 1 Each Tab.Subl 8/2 MgPt Own 1 each PO TID PRN PRN Reason: WITHDRAWAL Last Admin: 02/02/21 06:38 Dose: 1 each Documented by: Sodium Chloride (Sodium Chloride 0.9% 10 Ml Syringe) 10 ml FLUSH ASDIRECTED PRN PRN Reason: Keep Vein Open Last Admin: 01/26/21 14:32 Dose: 10 ml Documented by: Sodium Chloride (Sodium Chloride 0.9% 2.5 Ml Syringe) 2.5 ml FLUSH ASDIRECTED PRN PRN Reason: Keep Vein Open Last Admin: 01/26/21 14:32 Dose: 2.5 ml Documented by: Discontinued Medications Diphenhydramine HCl (Diphenhydramine 50 Mg/Ml Sdv) 25 mg IVPUSH ONETIME ONE Stop: 01/26/21 14:08 Last Admin: 01/26/21 14:31 Dose: 25 mg Documented by: Diphenhydramine HCl (Diphenhydramine 25 Mg Cap) 25 mg PO ONETIME ONE Stop: 01/26/21 21:19 Last Admin: 01/26/21 21:48 Dose: 25 mg Documented by: Diphenhydramine HCl (Diphenhydramine 25 Mg Cap) 25 mg PO ONETIME ONE Stop: 01/28/21 10:01 Last Admin: 01/28/21 09:38 Dose: 25 mg Documented by: Diphenhydramine HCl (Diphenhydramine 50 Mg/Ml Sdv) 25 mg IVPUSH Q4H PRN PRN Reason: Itching Stop: 01/29/21 20:00 Last Admin: 01/29/21 10:32 Dose: 25 mg Documented by: Diphenhydramine HCl (Diphenhydramine 25 Mg Cap) 25 mg PO ONETIME ONE Stop: 01/30/21 04:09 Last Admin: 01/30/21 18:18 Dose: Not Given Documented by: Diphenhydramine HCl (Diphenhydramine 25 Mg Cap) 25 mg PO ONETIME ONE Stop: 01/30/21 18:16 Last Admin: 01/30/21 18:22 Dose: 25 mg Documented by: Hydromorphone HCl (Hydromorphone 1 Mg/Ml Syringe) 0.5 mg IVPUSH Q4H PRN PRN Reason: Pain Stop: 01/28/21 20:59 Last Admin: 01/28/21 06:32 Dose: 0.5 mg Documented by: Sodium Chloride (Normal Saline) 1,000 mls @ 999 mls/hr IV ASDIRECTED [facility] Last Admin: 01/26/21 14:32 Dose: 999 mls/hr Documented by: Sodium Chloride (Normal Saline) 1,000 mls @ 999 mls/hr IV ASDIRECTED [facility] Insulin Human Regular 100 unit (/ Sodium Chloride) 100 mls @ 6 mls/hr IV TITRATE [facility]; Protocol Lactated Ringer's (Ringers, Lactated) 1,000 mls @ 999 mls/hr IV ASDIRECTED [facility] Last Admin: 01/26/21 15:59 Dose: 999 mls/hr Documented by: Insulin Regular in 0.9 % NACL (100 unit/ Premix) 100 mls @ 6 mls/hr IV TITRATE [facility]; Protocol Last Titration: 01/29/21 09:38 Dose: 0 unit/hr, 0 mls/hr Documented by: Lactated Ringer's (Ringers, Lactated) 1,000 mls @ 150 mls/hr IV ASDIRECTED [facility] Last Infusion: 01/26/21 22:13 Dose: 0 mls/hr Documented by: Dextrose/Water (Dextrose 5% In Water) 1,000 mls @ 100 mls/hr IV ASDIRECTED [facility] Last Admin: 01/29/21 08:20 Dose: 100 mls/hr Documented by: Ceftriaxone Sodium/Dextrose 1 (gm/ Premix) 50 mls @ 100 mls/hr IV Q24H [facility] Stop: 02/01/21 23:00 Last Admin: 02/01/21 23:29 Dose: 100 mls/hr Documented by: Potassium Chloride (Kcl In Water 40 Meq/100 Ml) 100 mls @ 25 mls/hr IV ONETIME ONE Stop: 01/28/21 13:59 Last Admin: 01/28/21 09:54 Dose: 25 mls/hr Documented by: Sodium Chloride (Sodium Chloride 0.45%) 1,000 mls @ 75 mls/hr IV ASDIRECTED [facility] Last Infusion: 01/30/21 01:45 Dose: 0 mls/hr Documented by: Sodium Chloride (Sodium Chloride 0.45%) 500 mls @ 75 mls/hr IV ASDIRECTED [facility] Last Admin: 01/30/21 11:00 Dose: 75 mls/hr Documented by: Sodium Chloride (Normal Saline) 1,000 mls @ 500 mls/hr IV ASDIRECTED [facility] Stop: 02/02/21 15:29 Last Admin: 02/02/21 13:29 Dose: 500 mls/hr Documented by: Insulin Aspart (Insulin Aspart 100 Units/Ml 10 Ml Vial) 10 unit SUBCUT STAT STA Stop: 01/26/21 15:00 Last Admin: 01/26/21 16:01 Dose: Not Given Documented by: Insulin Aspart (Insulin Aspart 100 Units/Ml 3 Ml Pen) 0 unit SUBCUT QIDACANDBED [facility]; Protocol Last Admin: 01/29/21 12:44 Dose: 8 unit Documented by: Metoclopramide HCl (Metoclopramide 10 Mg/2 Ml Sdv) 10 mg IVPUSH ONETIME ONE Stop: 01/26/21 14:08 Last Admin: 01/26/21 14:31 Dose: 10 mg Documented by: Non-Formulary Medication (Buprenorphine Hcl/Naloxone Hcl) 3 tab SL TID PRN PRN Reason: Abdominal Pain Ondansetron HCl (Ondansetron 4 Mg/2 Ml Sdv) Confirm Administered Dose 4 mg .ROUTE .STK-MED ONE Stop: 01/26/21 20:50 Last Admin: 01/26/21 21:47 Dose: Not Given Documented by: Ondansetron HCl (Ondansetron 4 Mg/2 Ml Sdv) 4 mg IVPUSH Q4H PRN PRN Reason: Nausea/Vomiting Last Admin: 01/26/21 21:47 Dose: 4 mg Documented by: Potassium Chloride (Potassium Chloride 20 Meq Tab.Er) 40 meq PO ONETIME ONE Stop: 01/28/21 08:40 Last Admin: 01/28/21 09:38 Dose: 40 meq Documented by: - Exam General: Alert, Lethargic HEENT: Pupils Equal Neck: Supple Lungs: Clear to Auscultation, Normal Respiratory Effort, Stridor Cardiovascular: Regular Rate, Regular Rhythm GI/Abdominal Exam: Normal Bowel Sounds, Non-Tender (Male) Exam: Deferred Extremities: No Pedal Edema Skin: Warm, Dry Neurological: Normal Gait, Normal Speech Psy/Mental Status: Other (Affect appears flat or depressed, possibly because of his physical symptoms.) - Patient Data Lab Results Last 24 hrs: Laboratory Results - last 24 hr 02/02/21 02/02/21 02/02/21 Range/Units 03:11 04:33 06:08 WBC 4.88 (4.0-11.0) K/uL RBC 3.94 L (4.50-5.90) M/uL Hgb 10.2 L (13.0-17.0) g/dL Hct 31.6 L (38.0-50.0) % MCV 80.2 (80.0-98.0) fL MCH 25.9 L (27.0-32.0) pg MCHC 32.3 (31.0-37.0) g/dL RDW Std Deviation 42.7 (28.0-62.0) fl RDW Coeff of Erika 15 (11.0-15.0) % Plt Count 215 (150-400) K/uL MPV 10.00 (7.40-12.00) fL Neut % (Auto) 71.3 (48.0-80.0) % Lymph % (Auto) 25.6 (16.0-40.0) % Mcculloch % (Auto) 2.3 (0.0-15.0) % Eos % (Auto) 0.4 (0.0-7.0) % Baso % (Auto) 0.4 (0.0-1.5) % Neut # (Auto) 3.5 (1.4-5.7) K/uL Lymph # (Auto) 1.3 (0.6-2.4) K/uL Mcculloch # (Auto) 0.1 (0.0-0.8) K/uL Eos # (Auto) 0.0 (0.0-0.7) K/uL Baso # (Auto) 0.0 (0.0-0.1) K/uL Nucleated RBC % 0.0 /100WBC Nucleated RBCs # 0 K/uL Sodium (136-148) mmol/L Potassium (3.5-5.1) mmol/L Chloride (98-107) mmol/L Carbon Dioxide (21.0-32.0) mmol/L BUN (7.0-18.0) mg/dL Creatinine (0.8-1.3) mg/dL Est Cr Clr Drug Dosing mL/min Estimated GFR (MDRD) ml/min Glucose (74-106) mg/dL POC Glucose 452 H* 367 H (70-99) mg/dL Calcium (8.5-10.1) mg/dL 02/02/21 02/02/21 02/02/21 Range/Units 06:08 06:31 12:02 WBC (4.0-11.0) K/uL RBC (4.50-5.90) M/uL Hgb (13.0-17.0) g/dL Hct (38.0-50.0) % MCV (80.0-98.0) fL MCH (27.0-32.0) pg MCHC (31.0-37.0) g/dL RDW Std Deviation (28.0-62.0) fl RDW Coeff of Erika (11.0-15.0) % Plt Count (150-400) K/uL MPV (7.40-12.00) fL Neut % (Auto) (48.0-80.0) % Lymph % (Auto) (16.0-40.0) % Mcculloch % (Auto) (0.0-15.0) % Eos % (Auto) (0.0-7.0) % Baso % (Auto) (0.0-1.5) % Neut # (Auto) (1.4-5.7) K/uL Lymph # (Auto) (0.6-2.4) K/uL Mcculloch # (Auto) (0.0-0.8) K/uL Eos # (Auto) (0.0-0.7) K/uL Baso # (Auto) (0.0-0.1) K/uL Nucleated RBC % /100WBC Nucleated RBCs # K/uL Sodium 144 (136-148) mmol/L Potassium 4.2 (3.5-5.1) mmol/L Chloride 105 (98-107) mmol/L Carbon Dioxide 14.2 L (21.0-32.0) mmol/L BUN 21 H (7.0-18.0) mg/dL Creatinine 1.6 H (0.8-1.3) mg/dL Est Cr Clr Drug Dosing 55.28 mL/min Estimated GFR (MDRD) 53.8 ml/min Glucose 362 H (74-106) mg/dL POC Glucose 318 H 167 H (70-99) mg/dL Calcium 9.0 (8.5-10.1) mg/dL 02/02/21 02/02/21 02/02/21 Range/Units 15:18 18:21 20:13 WBC (4.0-11.0) K/uL RBC (4.50-5.90) M/uL Hgb (13.0-17.0) g/dL Hct (38.0-50.0) % MCV (80.0-98.0) fL MCH (27.0-32.0) pg MCHC (31.0-37.0) g/dL RDW Std Deviation (28.0-62.0) fl RDW Coeff of Erika (11.0-15.0) % Plt Count (150-400) K/uL MPV (7.40-12.00) fL Neut % (Auto) (48.0-80.0) % Lymph % (Auto) (16.0-40.0) % Mcculloch % (Auto) (0.0-15.0) % Eos % (Auto) (0.0-7.0) % Baso % (Auto) (0.0-1.5) % Neut # (Auto) (1.4-5.7) K/uL Lymph # (Auto) (0.6-2.4) K/uL Mcculloch # (Auto) (0.0-0.8) K/uL Eos # (Auto) (0.0-0.7) K/uL Baso # (Auto) (0.0-0.1) K/uL Nucleated RBC % /100WBC Nucleated RBCs # K/uL Sodium 145 (136-148) mmol/L Potassium 3.4 L (3.5-5.1) mmol/L Chloride 110 H (98-107) mmol/L Carbon Dioxide 17.2 L (21.0-32.0) mmol/L BUN 14 (7.0-18.0) mg/dL Creatinine 1.4 H (0.8-1.3) mg/dL Est Cr Clr Drug Dosing 59.76 mL/min Estimated GFR (MDRD) > 60.0 ml/min Glucose 204 H (74-106) mg/dL POC Glucose 194 H 228 H (70-99) mg/dL Calcium 8.1 L (8.5-10.1) mg/dL 02/02/21 Range/Units 23:05 WBC (4.0-11.0) K/uL RBC (4.50-5.90) M/uL Hgb (13.0-17.0) g/dL Hct (38.0-50.0) % MCV (80.0-98.0) fL MCH (27.0-32.0) pg MCHC (31.0-37.0) g/dL RDW Std Deviation (28.0-62.0) fl RDW Coeff of Erika (11.0-15.0) % Plt Count (150-400) K/uL MPV (7.40-12.00) fL Neut % (Auto) (48.0-80.0) % Lymph % (Auto) (16.0-40.0) % Mcculloch % (Auto) (0.0-15.0) % Eos % (Auto) (0.0-7.0) % Baso % (Auto) (0.0-1.5) % Neut # (Auto) (1.4-5.7) K/uL Lymph # (Auto) (0.6-2.4) K/uL M[place]ulloch # (Auto) (0.0-0.8) K/uL Eos # (Auto) (0.0-0.7) K/uL Baso # (Auto) (0.0-0.1) K/uL Nucleated RBC % /100WBC Nucleated RBCs # K/uL Sodium (136-148) mmol/L Potassium (3.5-5.1) mmol/L Chloride (98-107) mmol/L Carbon Dioxide (21.0-32.0) mmol/L BUN (7.0-18.0) mg/dL Creatinine (0.8-1.3) mg/dL Est Cr Clr Drug Dosing mL/min Estimated GFR (MDRD) ml/min Glucose (74-106) mg/dL POC Glucose 287 H (70-99) mg/dL Calcium (8.5-10.1) mg/dL Result Diagrams: 02/02/21 06:08 02/02/21 20:13 Sepsis Event Note - Evaluation Sepsis Screening Result: No Definite Risk - Focused Exam Vital Signs: Vital Signs Temp Pulse Resp BP Pulse Ox Pulse Ox 02/02/21 23:09 97.1 F 107 H 16 109/64 99 02/02/21 19:00 97.7 F 94 16 131/87 99 02/02/21 15:32 97.1 F 87 20 114/77 98 02/02/21 15:00 98 02/02/21 12:00 97.5 F 98 22 H 118/83 98 - Problem List & Annotations (1) Dehydration SNOMED Code(s): 47653096 Code(s): E86.0 - DEHYDRATION Status: Acute Current Visit: Yes Annotation/Comment:: Will continue to hydrate patient due to elevation in creatinine. Have used half-normal saline with 20 with close K per liter at one quarter bag or 250 mL's per hour. 3 bags total. Recheck electrolytes in the morning. (2) Hypernatremia SNOMED Code(s): 354490834 Code(s): E87.0 - HYPEROSMOLALITY AND HYPERNATREMIA Status: Resolved Current Visit: Yes Annotation/Comment:: Resolved. (3) Nausea & vomiting SNOMED Code(s): 05386279 Code(s): R11.2 - NAUSEA WITH VOMITING, UNSPECIFIED Status: Acute Current Visit: No Qualifiers: Vomiting type: unspecified Qualified Code(s): R11.2 - Nausea with vomiting, unspecified Annotation/Comment:: Chronic diabetic gastroparesis may be a feature here. Once patient's electrolyte and fluids are corrected hope we can slowly advance diet. - Problem List Review Problem List Initiated/Reviewed/Updated: Yes - My Orders Last 24 Hours: My Active Orders 02/02/21 14:45 Intake and Output Strict [RC] Q12H 02/02/21 15:30 Sodium Chloride 0.9% [Normal Saline] 1,000 ml IV ASDIRECTED 02/02/21 20:00 Sodium Chloride 0.45% with KCl [1/2 NS with 20 mEq KCl] 1,000 ml IV ASDIRECTED 02/03/21 05:11 BASIC METABOLIC PANEL,BMP [CHEM] DAILY MAGNESIUM [CHEM] DAILY 02/04/21 05:11 BASIC METABOLIC PANEL,BMP [CHEM] DAILY MAGNESIUM [CHEM] DAILY 02/05/21 05:11 BASIC METABOLIC PANEL,BMP [CHEM] DAILY MAGNESIUM [CHEM] DAILY - Plan Plan:: I agree with the above assessment and plan.
[2021-02-03] MEDS: Insulin Aspart 100 Units/ML 3 ML Pen SUBCUT SCH ×4 (03:18→16:55)
[2021-02-03] MEDS ORDERED: Prochlorperazine 10 MG/2 ML SDV IM ONE (03:28)
[2021-02-03] MEDS ORDERED: Pantoprazole 40 MG/10 ML Syringe IVPUSH ONE (03:29)
[2021-02-03] MEDS: Sodium Chloride 0.45% with KCl 1,000 ML IV SCH ×2 (03:45→08:08)
[2021-02-03 06:14] LABS: CARBON DIOXIDE,CO2 11.4 mmol/L (21.0-32.0); POTASSIUM,K 4.1 mmol/L (3.5-5.1)
[2021-02-03] MEDS: ERYTHROMYCIN LACTOBIONATE IV SCH ×4 (06:27→23:42)
[2021-02-03] MEDS: SODIUM CHLORIDE 0.9% IV SCH ×4 (06:27→23:42)
[2021-02-03] MEDS: diphenhydrAMINE 50 MG/ML SDV IVPUSH PRN ×2 (08:05→16:20)
[2021-02-03] MEDS: Ondansetron 4 MG/2 ML SDV IVPUSH PRN ×2 (08:05→15:49)
[2021-02-03] MEDS ORDERED: Magnesium Sulfate/Water 2 GM in Premix Bag 1 BAG IV ONE (11:58)
[2021-02-03] MEDS ORDERED: Insulin Aspart 100 Units/ML 3 ML Pen SUBCUT SCH (12:15)
[2021-02-03 12:27] LABS: HEMOGLOBIN A1C 11.7 %
[2021-02-03] MEDS ORDERED: Glucagon,Human Recombinant 1 MG Vial IM PRN (15:05)
[2021-02-03] MEDS ORDERED: 50% Dextrose in Water 50 ML Syringe IVPUSH PRN (15:05)
[2021-02-03] MEDS ORDERED: Insulin Regular in 0.9 % NACL 100 ML IV SCH (15:21)
--- NOTE | 2021-02-03 15:23 | PCM.PN ---
- General Info Date of Service: 02/03/21 Admission Dx/Problem (Free Text): Admission Diagnosis/Problem Admission Diagnosis/Problem Hypernatremia Subjective Update: Patient still is finding it hard to eat or drink anything. He says that it makes his stomach hurt. No medication is helping his gastroparesis. Patient did have nausea this morning. Prochlorperazine did help in addition to Zofran which has been used in the past. Of concern is that patient's lack of intake seems to be resulting in increasing metabolic acidosis. I fear a minimal DKA is returning. See below. - Review of Systems General: Reports: Weakness HEENT: Reports: No Symptoms Pulmonary: Reports: No Symptoms Cardiovascular: Reports: No Symptoms Gastrointestinal: Reports: Abdominal Pain, Decreased Appetite, Nausea, Vomiting Genitourinary: Reports: No Symptoms Musculoskeletal: Reports: No Symptoms Skin: Reports: No Symptoms Neurological: Reports: No Symptoms Psychiatric: Reports: No Symptoms - Patient Data Vitals - Most Recent: Last Vital Signs Temp 98 F 02/03/21 11:00 Pulse 88 02/03/21 11:00 Resp 18 02/03/21 11:00 BP 110/68 02/03/21 11:00 Pulse Ox 99 02/03/21 11:00 Weight - Most Recent: 113 lb 8 oz I&O - Last 24 Hours: Intake & Output 02/03/21 02/03/21 02/03/21 06:59 14:59 22:59 Intake Total 340 Output Total 600 Balance -260 Lab Results Last 24 Hours: Laboratory Results - last 24 hr 02/02/21 02/02/21 02/02/21 Range/Units 15:18 18:21 20:13 Sodium 145 (136-148) mmol/L Potassium 3.4 L (3.5-5.1) mmol/L Chloride 110 H (98-107) mmol/L Carbon Dioxide 17.2 L (21.0-32.0) mmol/L BUN 14 (7.0-18.0) mg/dL Creatinine 1.4 H (0.8-1.3) mg/dL Est Cr Clr Drug Dosing 59.76 mL/min Estimated GFR (MDRD) > 60.0 ml/min Glucose 204 H (74-106) mg/dL POC Glucose 194 H 228 H (70-99) mg/dL Hemoglobin A1c (4.5 - 6.2) % Calcium 8.1 L (8.5-10.1) mg/dL Phosphorus (2.6-4.7) mg/dL Magnesium (1.8-2.4) mg/dL Lipase (73-393) U/L 02/02/21 02/03/21 02/03/21 Range/Units 23:05 03:12 05:43 Sodium 141 (136-148) mmol/L Potassium 4.1 (3.5-5.1) mmol/L Chloride 108 H (98-107) mmol/L Carbon Dioxide 11.4 L (21.0-32.0) mmol/L BUN 14 (7.0-18.0) mg/dL Creatinine 1.5 H (0.8-1.3) mg/dL Est Cr Clr Drug Dosing 55.77 mL/min Estimated GFR (MDRD) 58.0 ml/min Glucose 278 H (74-106) mg/dL POC Glucose 287 H 346 H (70-99) mg/dL Hemoglobin A1c (4.5 - 6.2) % Calcium 8.3 L (8.5-10.1) mg/dL Phosphorus (2.6-4.7) mg/dL Magnesium 1.6 L (1.8-2.4) mg/dL Lipase (73-393) U/L 02/03/21 02/03/21 02/03/21 Range/Units 05:43 05:43 05:43 Sodium (136-148) mmol/L Potassium (3.5-5.1) mmol/L Chloride (98-107) mmol/L Carbon Dioxide (21.0-32.0) mmol/L BUN (7.0-18.0) mg/dL Creatinine (0.8-1.3) mg/dL Est Cr Clr Drug Dosing mL/min Estimated GFR (MDRD) ml/min Glucose (74-106) mg/dL POC Glucose (70-99) mg/dL Hemoglobin A1c 11.7 H (4.5 - 6.2) % Calcium (8.5-10.1) mg/dL Phosphorus 2.1 L (2.6-4.7) mg/dL Magnesium (1.8-2.4) mg/dL Lipase 47 L (73-393) U/L 02/03/21 02/03/21 Range/Units 06:24 11:20 Sodium (136-148) mmol/L Potassium (3.5-5.1) mmol/L Chloride (98-107) mmol/L Carbon Dioxide (21.0-32.0) mmol/L BUN (7.0-18.0) mg/dL Creatinine (0.8-1.3) mg/dL Est Cr Clr Drug Dosing mL/min Estimated GFR (MDRD) ml/min Glucose (74-106) mg/dL POC Glucose 232 H 198 H (70-99) mg/dL Hemoglobin A1c (4.5 - 6.2) % Calcium (8.5-10.1) mg/dL Phosphorus (2.6-4.7) mg/dL Magnesium (1.8-2.4) mg/dL Lipase (73-393) U/L Med Orders - Current: Current Medications Dextrose/Water (50% Dextrose In Water 50 Ml Syringe) 50 ml IVPUSH ASDIRECTED PRN PRN Reason: Hypoglycemia Dextrose/Water (50% Dextrose In Water 50 Ml Syringe) 50 ml IVPUSH ASDIRECTED PRN PRN Reason: Hypoglycemia Diphenhydramine HCl (Diphenhydramine 50 Mg/Ml Sdv) 25 mg IVPUSH Q6H PRN PRN Reason: Nausea Last Admin: 02/03/21 08:05 Dose: 25 mg Documented by: Enoxaparin Sodium (Enoxaparin 40 Mg/0.4 Ml Syringe) 40 mg SUBCUT Q24H [facility] Last Admin: 02/02/21 15:31 Dose: 40 mg Documented by: Glucagon (Glucagon,Human Recombinant 1 Mg Vial) 1 mg IM ASDIRECTED PRN PRN Reason: Hypoglycemia Glucagon (Glucagon,Human Recombinant 1 Mg Vial) 1 mg IM ASDIRECTED PRN PRN Reason: Hypoglycemia Erythromycin Lactobionate 300 (mg/ Sodium Chloride) 100 mls @ 100 mls/hr IV Q6H [facility] Last Admin: 02/03/21 11:25 Dose: 100 mls/hr Documented by: Potassium Chloride/Sodium Chloride (1/2 Ns With 20 Meq Kcl) 1,000 mls @ 250 mls/hr IV ASDIRECTED [facility] Stop: 02/04/21 23:59 Last Admin: 02/03/21 08:08 Dose: 250 mls/hr Documented by: Magnesium Sulfate 2 gm/ Premix 50 mls @ 12.5 mls/hr IV ONETIME ONE Stop: 02/03/21 15:57 Last Admin: 02/03/21 13:05 Dose: 12.5 mls/hr Documented by: Sodium Chloride (Normal Saline) 1,000 mls @ 250 mls/hr IV ASDIRECTED [facility] Stop: 02/04/21 19:14 Insulin Aspart (Insulin Aspart 100 Units/Ml 3 Ml Pen) 0 unit SUBCUT QID [facility]; Protocol Last Admin: 02/03/21 12:58 Dose: Not Given Documented by: Insulin Aspart (Insulin Aspart 100 Units/Ml 3 Ml Pen) 0 unit SUBCUT TIDAC [facility]; Protocol Insulin Glargine (Insulin Glargine,Human Rec. Analog 100 Units/Ml 3 Ml Pen) 10 units SUBCUT BEDTIME [facility] Metoclopramide HCl (Metoclopramide 10 Mg Tab) 10 mg PO TID PRN PRN Reason: Nausea/Vomiting Last Admin: 02/02/21 03:10 Dose: 10 mg Documented by: Ondansetron HCl (Ondansetron 4 Mg Tab.Dis) 4 mg PO Q6H PRN PRN Reason: Nausea Last Admin: 01/30/21 13:19 Dose: 4 mg Documented by: Ondansetron HCl (Ondansetron 4 Mg/2 Ml Sdv) 4 mg IVPUSH Q6H PRN PRN Reason: Nausea/Vomiting Last Admin: 02/03/21 08:05 Dose: 4 mg Documented by: Pantoprazole Sodium (Pantoprazole 40 Mg/10 Ml Syringe) 40 mg IVPUSH Q24H [facility] Last Admin: 02/02/21 15:32 Dose: 40 mg Documented by: Buprenorphine Hcl/Naloxone Hcl 1 Each Tab.Subl 8/2 MgPt Own 1 each PO TID PRN PRN Reason: WITHDRAWAL Last Admin: 02/02/21 06:38 Dose: 1 each Documented by: Sodium Chloride (Sodium Chloride 0.9% 10 Ml Syringe) 10 ml FLUSH ASDIRECTED PRN PRN Reason: Keep Vein Open Last Admin: 01/26/21 14:32 Dose: 10 ml Documented by: Sodium Chloride (Sodium Chloride 0.9% 2.5 Ml Syringe) 2.5 ml FLUSH ASDIRECTED PRN PRN Reason: Keep Vein Open Last Admin: 01/26/21 14:32 Dose: 2.5 ml Documented by: Discontinued Medications Diphenhydramine HCl (Diphenhydramine 50 Mg/Ml Sdv) 25 mg IVPUSH ONETIME ONE Stop: 01/26/21 14:08 Last Admin: 01/26/21 14:31 Dose: 25 mg Documented by: Diphenhydramine HCl (Diphenhydramine 25 Mg Cap) 25 mg PO ONETIME ONE Stop: 01/26/21 21:19 Last Admin: 01/26/21 21:48 Dose: 25 mg Documented by: Diphenhydramine HCl (Diphenhydramine 25 Mg Cap) 25 mg PO ONETIME ONE Stop: 01/28/21 10:01 Last Admin: 01/28/21 09:38 Dose: 25 mg Documented by: Diphenhydramine HCl (Diphenhydramine 50 Mg/Ml Sdv) 25 mg IVPUSH Q4H PRN PRN Reason: Itching Stop: 01/29/21 20:00 Last Admin: 01/29/21 10:32 Dose: 25 mg Documented by: Diphenhydramine HCl (Diphenhydramine 25 Mg Cap) 25 mg PO ONETIME ONE Stop: 01/30/21 04:09 Last Admin: 01/30/21 18:18 Dose: Not Given Documented by: Diphenhydramine HCl (Diphenhydramine 25 Mg Cap) 25 mg PO ONETIME ONE Stop: 01/30/21 18:16 Last Admin: 01/30/21 18:22 Dose: 25 mg Documented by: Hydromorphone HCl (Hydromorphone 1 Mg/Ml Syringe) 0.5 mg IVPUSH Q4H PRN PRN Reason: Pain Stop: 01/28/21 20:59 Last Admin: 01/28/21 06:32 Dose: 0.5 mg Documented by: Sodium Chloride (Normal Saline) 1,000 mls @ 999 mls/hr IV ASDIRECTED [facility] Last Admin: 01/26/21 14:32 Dose: 999 mls/hr Documented by: Sodium Chloride (Normal Saline) 1,000 mls @ 999 mls/hr IV ASDIRECTED [facility] Insulin Human Regular 100 unit (/ Sodium Chloride) 100 mls @ 6 mls/hr IV TITRATE [facility]; Protocol Lactated Ringer's (Ringers, Lactated) 1,000 mls @ 999 mls/hr IV ASDIRECTED [facility] Last Admin: 01/26/21 15:59 Dose: 999 mls/hr Documented by: Insulin Regular in 0.9 % NACL (100 unit/ Premix) 100 mls @ 6 mls/hr IV TITRATE [facility]; Protocol Last Titration: 01/29/21 09:38 Dose: 0 unit/hr, 0 mls/hr Documented by: Lactated Ringer's (Ringers, Lactated) 1,000 mls @ 150 mls/hr IV ASDIRECTED [facility]INE Last Infusion: 01/26/21 22:13 Dose: 0 mls/hr Documented by: Dextrose/Water (Dextrose 5% In Water) 1,000 mls @ 100 mls/hr IV ASDIRECTED [facility] Last Admin: 01/29/21 08:20 Dose: 100 mls/hr Documented by: Ceftriaxone Sodium/Dextrose 1 (gm/ Premix) 50 mls @ 100 mls/hr IV Q24H [facility] Stop: 02/01/21 23:00 Last Admin: 02/01/21 23:29 Dose: 100 mls/hr Documented by: Potassium Chloride (Kcl In Water 40 Meq/100 Ml) 100 mls @ 25 mls/hr IV ONETIME ONE Stop: 01/28/21 13:59 Last Admin: 01/28/21 09:54 Dose: 25 mls/hr Documented by: Sodium Chloride (Sodium Chloride 0.45%) 1,000 mls @ 75 mls/hr IV ASDIRECTED [facility] Last Infusion: 01/30/21 01:45 Dose: 0 mls/hr Documented by: Sodium Chloride (Sodium Chloride 0.45%) 500 mls @ 75 mls/hr IV ASDIRECTED [facility] Last Admin: 01/30/21 11:00 Dose: 75 mls/hr Documented by: Sodium Chloride (Normal Saline) 1,000 mls @ 500 mls/hr IV ASDIRECTED [facility] Stop: 02/02/21 15:29 Last Admin: 02/02/21 13:29 Dose: 500 mls/hr Documented by: Sodium Chloride (Normal Saline) 1,000 mls @ 250 mls/hr IV ASDIRECTED [facility] Stop: 02/04/21 19:29 Last Admin: 02/02/21 15:35 Dose: 250 mls/hr Documented by: Insulin Aspart (Insulin Aspart 100 Units/Ml 10 Ml Vial) 10 unit SUBCUT STAT STA Stop: 01/26/21 15:00 Last Admin: 01/26/21 16:01 Dose: Not Given Documented by: Insulin Aspart (Insulin Aspart 100 Units/Ml 3 Ml Pen) 0 unit SUBCUT QIDACANDBED [facility]; Protocol Last Admin: 01/29/21 12:44 Dose: 8 unit Documented by: Insulin Aspart (Insulin Aspart 100 Units/Ml 3 Ml Pen) 0 unit SUBCUT Q4H [facility]; Protocol Last Admin: 02/03/21 11:24 Dose: 2 units Documented by: Metoclopramide HCl (Metoclopramide 10 Mg/2 Ml Sdv) 10 mg IVPUSH ONETIME ONE Stop: 01/26/21 14:08 Last Admin: 01/26/21 14:31 Dose: 10 mg Documented by: Non-Formulary Medication (Buprenorphine Hcl/Naloxone Hcl) 3 tab SL TID PRN PRN Reason: Abdominal Pain Ondansetron HCl (Ondansetron 4 Mg/2 Ml Sdv) Confirm Administered Dose 4 mg .ROUTE .STK-MED ONE Stop: 01/26/21 20:50 Last Admin: 01/26/21 21:47 Dose: Not Given Documented by: Ondansetron HCl (Ondansetron 4 Mg/2 Ml Sdv) 4 mg IVPUSH Q4H PRN PRN Reason: Nausea/Vomiting Last Admin: 01/26/21 21:47 Dose: 4 mg Documented by: Pantoprazole Sodium (Pantoprazole 40 Mg/10 Ml Syringe) 40 mg IVPUSH NOW ONE Stop: 02/03/21 03:30 Last Admin: 02/03/21 03:40 Dose: 40 mg Documented by: Potassium Chloride (Potassium Chloride 20 Meq Tab.Er) 40 meq PO ONETIME ONE Stop: 01/28/21 08:40 Last Admin: 01/28/21 09:38 Dose: 40 meq Documented by: Prochlorperazine Edisylate (Prochlorperazine 10 Mg/2 Ml Sdv) 10 mg IM ONETIME ONE Stop: 02/03/21 03:29 Last Admin: 02/03/21 03:40 Dose: 10 mg Documented by: - Exam General: Alert (Able to converse coherently but appears sleepy.), Oriented HEENT: Pupils Equal Neck: Supple Lungs: Clear to Auscultation Cardiovascular: Regular Rate, Regular Rhythm GI/Abdominal Exam: Normal Bowel Sounds, Soft, Other (Slightly tender in upper epigastrium.) (Male) Exam: Deferred Back Exam: Normal Inspection Extremities: Normal Inspection Skin: Warm, Dry, Intact Neurological: No New Focal Deficit Psy/Mental Status: Depressed - Patient Data Lab Results Last 24 hrs: Laboratory Results - last 24 hr 02/02/21 02/02/21 02/02/21 Range/Units 15:18 18:21 20:13 Sodium 145 (136-148) mmol/L Potassium 3.4 L (3.5-5.1) mmol/L Chloride 110 H (98-107) mmol/L Carbon Dioxide 17.2 L (21.0-32.0) mmol/L BUN 14 (7.0-18.0) mg/dL Creatinine 1.4 H (0.8-1.3) mg/dL Est Cr Clr Drug Dosing 59.76 mL/min Estimated GFR (MDRD) > 60.0 ml/min Glucose 204 H (74-106) mg/dL POC Glucose 194 H 228 H (70-99) mg/dL Hemoglobin A1c (4.5 - 6.2) % Calcium 8.1 L (8.5-10.1) mg/dL Phosphorus (2.6-4.7) mg/dL Magnesium (1.8-2.4) mg/dL Lipase (73-393) U/L 02/02/21 02/03/21 02/03/21 Range/Units 23:05 03:12 05:43 Sodium 141 (136-148) mmol/L Potassium 4.1 (3.5-5.1) mmol/L Chloride 108 H (98-107) mmol/L Carbon Dioxide 11.4 L (21.0-32.0) mmol/L BUN 14 (7.0-18.0) mg/dL Creatinine 1.5 H (0.8-1.3) mg/dL Est Cr Clr Drug Dosing 55.77 mL/min Estimated GFR (MDRD) 58.0 ml/min Glucose 278 H (74-106) mg/dL POC Glucose 287 H 346 H (70-99) mg/dL Hemoglobin A1c (4.5 - 6.2) % Calcium 8.3 L (8.5-10.1) mg/dL Phosphorus (2.6-4.7) mg/dL Magnesium 1.6 L (1.8-2.4) mg/dL Lipase (73-393) U/L 02/03/21 02/03/21 02/03/21 Range/Units 05:43 05:43 05:43 Sodium (136-148) mmol/L Potassium (3.5-5.1) mmol/L Chloride (98-107) mmol/L Carbon Dioxide (21.0-32.0) mmol/L BUN (7.0-18.0) mg/dL Creatinine (0.8-1.3) mg/dL Est Cr Clr Drug Dosing mL/min Estimated GFR (MDRD) ml/min Glucose (74-106) mg/dL POC Glucose (70-99) mg/dL Hemoglobin A1c 11.7 H (4.5 - 6.2) % Calcium (8.5-10.1) mg/dL Phosphorus 2.1 L (2.6-4.7) mg/dL Magnesium (1.8-2.4) mg/dL Lipase 47 L (73-393) U/L 02/03/21 02/03/21 Range/Units 06:24 11:20 Sodium (136-148) mmol/L Potassium (3.5-5.1) mmol/L Chloride (98-107) mmol/L Carbon Dioxide (21.0-32.0) mmol/L BUN (7.0-18.0) mg/dL Creatinine (0.8-1.3) mg/dL Est Cr Clr Drug Dosing mL/min Estimated GFR (MDRD) ml/min Glucose (74-106) mg/dL POC Glucose 232 H 198 H (70-99) mg/dL Hemoglobin A1c (4.5 - 6.2) % Calcium (8.5-10.1) mg/dL Phosphorus (2.6-4.7) mg/dL Magnesium (1.8-2.4) mg/dL Lipase (73-393) U/L Result Diagrams: 02/02/21 06:08 02/03/21 05:43 Sepsis Event Note - Evaluation Sepsis Screening Result: No Definite Risk - Focused Exam Vital Signs: Vital Signs Temp Pulse Resp BP Pulse Ox 02/03/21 11:00 98 F 88 18 110/68 99 02/03/21 07:00 97.1 F 118 H 17 165/98 H 100 - Problem List & Annotations (1) Increased anion gap metabolic acidosis SNOMED Code(s): 98750136 Code(s): E87.2 - ACIDOSIS Status: Acute Current Visit: Yes Annotation/Comment:: Serum and urine ketones are pending, but suspect patient is slipping back to DKA due to very low p.o. intake. We are going to move patient back to the ICU and start an insulin drip to help close his anion gap. Doubling fluid intake to 500/h by adding together the normal saline drip that has 20 of K per liter with a plain normal saline. Plan to administer 3 to 5 L. Labs are to be done serially per orders. Next BMP is at 1800. (2) Dehydration SNOMED Code(s): 79184466 Code(s): E86.0 - DEHYDRATION Status: Acute Current Visit: Yes Annotation/Comment:: PO intake still minimal. Patient states, "I am afraid to eat because it makes my stomach hurt and I feel nauseous". We must then continue to hydrate patient due to elevation in creatinine. Have used half- normal saline with 20 with close K per liter at one quarter bag or 250 mL's per hour. 3 bags total. Due to evidence of increasing anion gap will piggyback also to 50 of plain saline an hour plus another 2 bags with this. (3) Nausea & vomiting SNOMED Code(s): 76890750 Code(s): R11.2 - NAUSEA WITH VOMITING, UNSPECIFIED Status: Acute Current Visit: No Qualifiers: Vomiting type: unspecified Annotation/Comment:: Chronic diabetic gastroparesis does not seem to be responding to either erythromycin or Reglan. I have encouraged patient to attempt full liquid diet. (4) Hypernatremia SNOMED Code(s): 266481313 Code(s): E87.0 - HYPEROSMOLALITY AND HYPERNATREMIA Status: Resolved Current Visit: Yes Annotation/Comment:: Resolved. - Problem List Review Problem List Initiated/Reviewed/Updated: Yes - My Orders Last 24 Hours: My Active Orders 02/02/21 14:45 Intake and Output Strict [RC] Q12H 02/02/21 20:00 Sodium Chloride 0.45% with KCl [1/2 NS with 20 mEq KCl] 1,000 ml IV ASDIRECTED 02/03/21 11:58 Magnesium Sulfate/Water [Magnesium Sulfate in Water 2 GM/50 ML] 2 gm Premix Bag 1 bag IV ONETIME 02/03/21 11:59 IONIZED CALCIUM,WHOLE BLOOD [BG] Routine 02/03/21 12:15 Insulin Aspart [NovoLOG] See Protocol SUBCUT QID 02/03/21 15:01 Transfer Patient (Change bed) [ADT] Routine 02/03/21 15:03 Communication Order [RC] ASDIRECTED Diabetes Education [RC] Click to Edit Notify Provider [RC] PRN Glucose Management IV Reflex [OM.PC] Q4H 02/03/21 15:05 Dextrose 50% in Water 50 ml IVPUSH ASDIRECTED PRN Glucagon,Human Recombinant [GlucaGen] 1 mg IM ASDIRECTED PRN 02/03/21 15:07 MAGNESIUM [CHEM] Q4H 02/03/21 15:09 MAGNESIUM [CHEM] Routine POTASSIUM,K [CHEM] Q4H 02/03/21 15:15 Sodium Chloride 0.9% [Normal Saline] 1,000 ml IV ASDIRECTED 02/03/21 17:00 Insulin Aspart [NovoLOG] See Protocol SUBCUT TIDAC 02/03/21 19:03 Glucose Management IV Reflex [OM.PC] Q4H 02/03/21 19:07 MAGNESIUM [CHEM] Q4H 02/03/21 19:09 POTASSIUM,K [CHEM] Q4H 02/03/21 21:00 Insulin Glarg,Human.Rec.Analog [LantUS Solostar] 10 units SUBCUT BEDTIME 02/03/21 23:03 Glucose Management IV Reflex [OM.PC] Q4H 02/03/21 23:07 MAGNESIUM [CHEM] Q4H 02/03/21 23:09 POTASSIUM,K [CHEM] Q4H 02/04/21 03:03 Glucose Management IV Reflex [OM.PC] Q4H 02/04/21 03:07 MAGNESIUM [CHEM] Q4H 02/04/21 03:09 POTASSIUM,K [CHEM] Q4H 02/04/21 05:11 BASIC METABOLIC PANEL,BMP [CHEM] DAILY LIPID PANEL [CHEM] AM 02/04/21 07:03 Glucose Management IV Reflex [OM.PC] Q4H 02/04/21 07:07 MAGNESIUM [CHEM] Q4H 02/04/21 07:09 POTASSIUM,K [CHEM] Q4H 02/04/21 11:03 Glucose Management IV Reflex [OM.PC] Q4H 02/04/21 11:07 MAGNESIUM [CHEM] Q4H 02/04/21 11:09 POTASSIUM,K [CHEM] Q4H 02/05/21 05:11 BASIC METABOLIC PANEL,BMP [CHEM] DAILY - Plan Plan:: I agree with the above assessment and plan.
[2021-02-03] MEDS: Enoxaparin 40 MG/0.4 ML Syringe SUBCUT SCH (15:49)
[2021-02-03] MEDS: Pantoprazole 40 MG/10 ML Syringe IVPUSH SCH (15:52)
[2021-02-03 16:12] LABS: POTASSIUM,K 4.4 mmol/L (3.5-5.1)
[2021-02-03] MEDS: Sodium Chloride 0.9% 1,000 ML IV SCH ×2 (16:19→20:21)
--- NOTE | 2021-02-03 17:51 | PN ---
THC Physician - Brief Progress [id number]/25/2021 17:47[facility] italoEddie, FRANK - BETHANY (TAYLOR) - GEGE BHATTDate of Service 02/03/2021 17:47HPI/Events o f Note Brief eICU Admit 89 yom with hx of DM I, gastroparesis, neurogenic bladderPresents with DKA - transferred from floor for recurrent DKAO/E Seen on cameraVSS, NADDVT Prophylaxis: Lovenox / SC DsIssuesRecurrent DKA - brittle - no obvious infectionInsulin drip protocolCorrect Lytes as neededCas e reviewed with bedside teamCall with questionsWill followInterventions Major-Hyperglycemia - active titration of insulin therapy
[2021-02-03 19:33] LABS: BLOOD UREA NITROGEN,BUN 12 mg/dL (7.0-18.0); CARBON DIOXIDE,CO2 9.2 mmol/L (21.0-32.0); CHLORIDE,CL 108 mmol/L (98-107); GLUCOSE RANDOM 236 mg/dL (74-106); POTASSIUM,K 3.7 mmol/L (3.5-5.1); SODIUM,NA 142 mmol/L (136-148)
[2021-02-03] MEDS: Insulin Glargine,Human Rec. Analog 100 Units/ML 3 ML Pen SUBCUT SCH (20:31)
[2021-02-03] MEDS: Dextrose 5%-0.45% NaCl 1,000 ML IV SCH (21:09)
[2021-02-03 23:28] LABS: BLOOD UREA NITROGEN,BUN 11 mg/dL (7.0-18.0); CARBON DIOXIDE,CO2 13.6 mmol/L (21.0-32.0); CHLORIDE,CL 109 mmol/L (98-107); GLUCOSE RANDOM 178 mg/dL (74-106); POTASSIUM,K 3.6 mmol/L (3.5-5.1); SODIUM,NA 142 mmol/L (136-148)
[2021-02-04] MEDS: BUPRENORPHINE HCL PO PRN ×2 (00:22→14:58)
[2021-02-04] MEDS: Ondansetron 4 MG/2 ML SDV IVPUSH PRN ×2 (00:22→11:02)
[2021-02-04] MEDS: NALOXONE HCL PO PRN ×2 (00:22→14:58)
[2021-02-04 03:49] LABS: BLOOD UREA NITROGEN,BUN 9 mg/dL (7.0-18.0); CHLORIDE,CL 109 mmol/L (98-107); GLUCOSE RANDOM 144 mg/dL (74-106); POTASSIUM,K 3.3 mmol/L (3.5-5.1); SODIUM,NA 143 mmol/L (136-148)
[2021-02-04] MEDS: Insulin Regular in 0.9 % NACL 100 ML IV SCH ×2 (04:05→22:49)
[2021-02-04] MEDS ORDERED: Potassium Chloride Riders 40 MEQ in Premix Bag 1 BAG IV ONE (04:20)
--- NOTE | 2021-02-04 04:24 | PN ---
THC Physician - Brief Progress [id number]/26/2021 04:22[facility] Eddie puckett, FRANK - BETHANY (TAYLOR) - GEGE BHATTDate of Service 02/04/2021 04:22HPI/Events o f Note K+ 3.3. On DKA protocol. Ordered 60mew KCL IV correction.Interventions Intermediate-Electrolyt e abnormality - evaluation and management 04 :23
[2021-02-04] MEDS: Dextrose 5%-0.45% NaCl 1,000 ML IV SCH ×2 (05:58→12:58)
[2021-02-04] MEDS: SODIUM CHLORIDE 0.9% IV SCH ×4 (06:03→23:36)
[2021-02-04] MEDS: ERYTHROMYCIN LACTOBIONATE IV SCH ×4 (06:03→23:36)
[2021-02-04] MEDS: Insulin Aspart 100 Units/ML 3 ML Pen SUBCUT SCH ×3 (07:20→18:00)
[2021-02-04 07:46] LABS: BLOOD UREA NITROGEN,BUN 7 mg/dL (7.0-18.0); CARBON DIOXIDE,CO2 16.1 mmol/L (21.0-32.0); CHLORIDE,CL 109 mmol/L (98-107); GLUCOSE RANDOM 157 mg/dL (74-106); POTASSIUM,K 3.6 mmol/L (3.5-5.1); SODIUM,NA 144 mmol/L (136-148)
[2021-02-04] MEDS ORDERED: Potassium Chloride Riders 20 MEQ in Premix Bag 1 BAG IV ONE ×2 (08:30→13:00)
[2021-02-04] MEDS ORDERED: Dextrose 5%-0.9% NaCl with KCl 1,000 ML IV ONE (12:00)
[2021-02-04] MEDS: Metoclopramide 10 MG Tab PO SCH ×3 (12:08→23:37)
[2021-02-04] MEDS: Pantoprazole 40 MG/10 ML Syringe IVPUSH SCH (15:41)
[2021-02-04] MEDS: Enoxaparin 40 MG/0.4 ML Syringe SUBCUT SCH (15:42)
[2021-02-04 16:09] LABS: BLOOD UREA NITROGEN,BUN 5 mg/dL (7.0-18.0); CARBON DIOXIDE,CO2 22.2 mmol/L (21.0-32.0); CHLORIDE,CL 109 mmol/L (98-107); GLUCOSE RANDOM 228 mg/dL (74-106); POTASSIUM,K 3.9 mmol/L (3.5-5.1); SODIUM,NA 143 mmol/L (136-148)
[2021-02-04] MEDS ORDERED: LORazepam 2 MG/ML SDV IVPUSH PRN (17:54)
[2021-02-04 19:46] LABS: BLOOD UREA NITROGEN,BUN 6 mg/dL (7.0-18.0); CARBON DIOXIDE,CO2 18.8 mmol/L (21.0-32.0); CHLORIDE,CL 109 mmol/L (98-107); GLUCOSE RANDOM 348 mg/dL (74-106); SODIUM,NA 140 mmol/L (136-148)
[2021-02-04] MEDS: Insulin Glargine,Human Rec. Analog 100 Units/ML 3 ML Pen SUBCUT SCH (20:07)
--- NOTE | 2021-02-04 23:08 | PCM.PN ---
- General Info Date of Service: 02/04/21 Admission Dx/Problem (Free Text): Admission Diagnosis/Problem Admission Diagnosis/Problem Hypernatremia/dka/gastroparesis/uti /neurogenic bladder Subjective Update: 02/04/21 afebrile //vss but no intake and abd still nauseated. less pain overall but not comfortable. i.v and insulin drip with b.s 200 -250 this am. sleeping poorly //depressed. no diarrhea last 12 hours. lungs clear cor rrr and mild tach 98. labs improved but k still low // hco3 still high. assess 1// dka : now starting to resolve. 2// may be form diarrhea sec to treating ecoli uti. 3// may be sec to treating chronic gastroparesis with ees. is also on reglan and getting only prn sec to nausea. plan: so will restart lower dose q 8 hours and advance feeding to see if he can tolerate. decrease i.v after po trial if stable . has increasing urine output and stable creatinine and lytes. replace k with i.v x extra dose today . mg stable . neurogenic bladder with renal impairment recheck creat. and cont straight cath which he states triggers abd pain . senior care preserving renal fx may need nephrology again and consider diverting urostomy to prevent further eroding renal function. psyche :he should see for depression but states alot of it form chronic pain a nd brittle diabetes and inability to avoid nausea/vomiting . uti recheck ua to see if residual infection . boh better day may go to floor in am if stable. decreased i.v and tolerated p.o well . boh Functional Status: Denies: Pain Controlled, Tolerating Diet - Review of Systems General: Reports: No Symptoms, Fatigue, Malaise. Denies: Appetite HEENT: Reports: No Symptoms Pulmonary: Reports: No Symptoms Cardiovascular: Reports: No Symptoms Gastrointestinal: Reports: No Symptoms, Abdominal Pain, Decreased Appetite, Nausea, Vomiting Genitourinary: Reports: No Symptoms Musculoskeletal: Reports: No Symptoms Skin: Reports: No Symptoms Neurological: Reports: No Symptoms Psychiatric: Reports: No Symptoms - Patient Data Vitals - Most Recent: Last Vital Signs Temp 37.1 C 02/04/21 19:00 Pulse 88 02/03/21 11:00 Resp 7 L 02/04/21 21:00 BP 116/79 02/04/21 21:00 Pulse Ox 98 02/04/21 21:00 Weight - Most Recent: 49.351 kg I&O - Last 24 Hours: Intake & Output 02/04/21 02/04/21 02/04/21 07:59 15:59 23:59 Intake Total 0 Output Total 1400 2400 Balance -1400 -2400 Lab Results Last 24 Hours: Laboratory Results - last 24 hr 02/03/21 02/03/21 02/04/21 Range/Units 23:07 23:07 00:02 Sodium 142 (136-148) mmol/L Potassium 3.6 (3.5-5.1) mmol/L Chloride 109 H (98-107) mmol/L Carbon Dioxide 13.6 L (21.0-32.0) mmol/L BUN 11 (7.0-18.0) mg/dL Creatinine 1.4 H (0.8-1.3) mg/dL Est Cr Clr Drug Dosing 57.28 mL/min Estimated GFR (MDRD) > 60.0 ml/min Glucose 178 H (74-106) mg/dL POC Glucose 161 H 125 H (70-99) mg/dL Calcium 8.3 L (8.5-10.1) mg/dL Magnesium 2.1 (1.8-2.4) mg/dL Triglycerides (0-200) mg/dL Cholesterol (50-200) mg/dL LDL Cholesterol, Calc (60-180) mg/dL VLDL Cholesterol (5-55) mg/dL HDL Cholesterol (40-60) mg/dL Cholesterol/HDL Ratio (3.3-6.0) 02/04/21 02/04/21 02/04/21 Range/Units 01:02 03:01 03:24 Sodium 143 (136-148) mmol/L Potassium 3.3 L (3.5-5.1) mmol/L Chloride 109 H (98-107) mmol/L Carbon Dioxide 17.0 L (21.0-32.0) mmol/L BUN 9 (7.0-18.0) mg/dL Creatinine 1.3 (0.8-1.3) mg/dL Est Cr Clr Drug Dosing 61.69 mL/min Estimated GFR (MDRD) > 60.0 ml/min Glucose 144 H (74-106) mg/dL POC Glucose 101 H 131 H (70-99) mg/dL Calcium 8.0 L (8.5-10.1) mg/dL Magnesium 1.9 (1.8-2.4) mg/dL Triglycerides (0-200) mg/dL Cholesterol (50-200) mg/dL LDL Cholesterol, Calc (60-180) mg/dL VLDL Cholesterol (5-55) mg/dL HDL Cholesterol (40-60) mg/dL Cholesterol/HDL Ratio (3.3-6.0) 02/04/21 02/04/21 02/04/21 Range/Units 04:00 04:47 06:00 Sodium (136-148) mmol/L Potassium (3.5-5.1) mmol/L Chloride (98-107) mmol/L Carbon Dioxide (21.0-32.0) mmol/L BUN (7.0-18.0) mg/dL Creatinine (0.8-1.3) mg/dL Est Cr Clr Drug Dosing mL/min Estimated GFR (MDRD) ml/min Glucose (74-106) mg/dL POC Glucose 134 H 129 H 112 H (70-99) mg/dL Calcium (8.5-10.1) mg/dL Magnesium (1.8-2.4) mg/dL Triglycerides (0-200) mg/dL Cholesterol (50-200) mg/dL LDL Cholesterol, Calc (60-180) mg/dL VLDL Cholesterol (5-55) mg/dL HDL Cholesterol (40-60) mg/dL Cholesterol/HDL Ratio (3.3-6.0) 02/04/21 02/04/21 02/04/21 Range/Units 06:55 06:55 07:05 Sodium 144 (136-148) mmol/L Potassium 3.6 (3.5-5.1) mmol/L Chloride 109 H (98-107) mmol/L Carbon Dioxide 16.1 L (21.0-32.0) mmol/L BUN 7 (7.0-18.0) mg/dL Creatinine 1.3 (0.8-1.3) mg/dL Est Cr Clr Drug Dosing 61.69 mL/min Estimated GFR (MDRD) > 60.0 ml/min Glucose 157 H (74-106) mg/dL POC Glucose 140 H (70-99) mg/dL Calcium 8.6 (8.5-10.1) mg/dL Magnesium 2.0 (1.8-2.4) mg/dL Triglycerides 133 (0-200) mg/dL Cholesterol 192 (50-200) mg/dL LDL Cholesterol, Calc 124 (60-180) mg/dL VLDL Cholesterol 26 (5-55) mg/dL HDL Cholesterol 41 (40-60) mg/dL Cholesterol/HDL Ratio 4.7 (3.3-6.0) 02/04/21 02/04/21 02/04/21 Range/Units 08:11 09:03 10:04 Sodium (136-148) mmol/L Potassium (3.5-5.1) mmol/L Chloride (98-107) mmol/L Carbon Dioxide (21.0-32.0) mmol/L BUN (7.0-18.0) mg/dL Creatinine (0.8-1.3) mg/dL Est Cr Clr Drug Dosing mL/min Estimated GFR (MDRD) ml/min Glucose (74-106) mg/dL POC Glucose 174 H 176 H 168 H (70-99) mg/dL Calcium (8.5-10.1) mg/dL Magnesium (1.8-2.4) mg/dL Triglycerides (0-200) mg/dL Cholesterol (50-200) mg/dL LDL Cholesterol, Calc (60-180) mg/dL VLDL Cholesterol (5-55) mg/dL HDL Cholesterol (40-60) mg/dL Cholesterol/HDL Ratio (3.3-6.0) 02/04/21 02/04/21 02/04/21 Range/Units 11:07 11:09 12:08 Sodium (136-148) mmol/L Potassium (3.5-5.1) mmol/L Chloride (98-107) mmol/L Carbon Dioxide (21.0-32.0) mmol/L BUN (7.0-18.0) mg/dL Creatinine (0.8-1.3) mg/dL Est Cr Clr Drug Dosing mL/min Estimated GFR (MDRD) ml/min Glucose (74-106) mg/dL POC Glucose 152 H 162 H (70-99) mg/dL Calcium (8.5-10.1) mg/dL Magnesium 1.9 (1.8-2.4) mg/dL Triglycerides (0-200) mg/dL Cholesterol (50-200) mg/dL LDL Cholesterol, Calc (60-180) mg/dL VLDL Cholesterol (5-55) mg/dL HDL Cholesterol (40-60) mg/dL Cholesterol/HDL Ratio (3.3-6.0) 02/04/21 02/04/21 02/04/21 Range/Units 14:02 15:38 15:38 Sodium 143 (136-148) mmol/L Potassium 3.9 (3.5-5.1) mmol/L Chloride 109 H (98-107) mmol/L Carbon Dioxide 22.2 (21.0-32.0) mmol/L BUN 5 L (7.0-18.0) mg/dL Creatinine 1.2 (0.8-1.3) mg/dL Est Cr Clr Drug Dosing 66.83 mL/min Estimated GFR (MDRD) > 60.0 ml/min Glucose 228 H (74-106) mg/dL POC Glucose 162 H 193 H (70-99) mg/dL Calcium 8.6 (8.5-10.1) mg/dL Magnesium (1.8-2.4) mg/dL Triglycerides (0-200) mg/dL Cholesterol (50-200) mg/dL LDL Cholesterol, Calc (60-180) mg/dL VLDL Cholesterol (5-55) mg/dL HDL Cholesterol (40-60) mg/dL Cholesterol/HDL Ratio (3.3-6.0) 02/04/21 02/04/21 02/04/21 Range/Units 16:14 17:00 18:02 Sodium (136-148) mmol/L Potassium (3.5-5.1) mmol/L Chloride (98-107) mmol/L Carbon Dioxide (21.0-32.0) mmol/L BUN (7.0-18.0) mg/dL Creatinine (0.8-1.3) mg/dL Est Cr Clr Drug Dosing mL/min Estimated GFR (MDRD) ml/min Glucose (74-106) mg/dL POC Glucose 226 H 292 H 316 H (70-99) mg/dL Calcium (8.5-10.1) mg/dL Magnesium (1.8-2.4) mg/dL Triglycerides (0-200) mg/dL Cholesterol (50-200) mg/dL LDL Cholesterol, Calc (60-180) mg/dL VLDL Cholesterol (5-55) mg/dL HDL Cholesterol (40-60) mg/dL Cholesterol/HDL Ratio (3.3-6.0) 02/04/21 02/04/21 02/04/21 Range/Units 19:00 19:28 19:53 Sodium 140 (136-148) mmol/L Potassium 4.0 (3.5-5.1) mmol/L Chloride 109 H (98-107) mmol/L Carbon Dioxide 18.8 L (21.0-32.0) mmol/L BUN 6 L (7.0-18.0) mg/dL Creatinine 1.2 (0.8-1.3) mg/dL Est Cr Clr Drug Dosing 66.83 mL/min Estimated GFR (MDRD) > 60.0 ml/min Glucose 348 H (74-106) mg/dL POC Glucose 312 H 299 H (70-99) mg/dL Calcium 8.8 (8.5-10.1) mg/dL Magnesium (1.8-2.4) mg/dL Triglycerides (0-200) mg/dL Cholesterol (50-200) mg/dL LDL Cholesterol, Calc (60-180) mg/dL VLDL Cholesterol (5-55) mg/dL HDL Cholesterol (40-60) mg/dL Cholesterol/HDL Ratio (3.3-6.0) 02/04/21 02/04/21 Range/Units 21:01 21:58 Sodium (136-148) mmol/L Potassium (3.5-5.1) mmol/L Chloride (98-107) mmol/L Carbon Dioxide (21.0-32.0) mmol/L BUN (7.0-18.0) mg/dL Creatinine (0.8-1.3) mg/dL Est Cr Clr Drug Dosing mL/min Estimated GFR (MDRD) ml/min Glucose (74-106) mg/dL POC Glucose 255 H 233 H (70-99) mg/dL Calcium (8.5-10.1) mg/dL Magnesium (1.8-2.4) mg/dL Triglycerides (0-200) mg/dL Cholesterol (50-200) mg/dL LDL Cholesterol, Calc (60-180) mg/dL VLDL Cholesterol (5-55) mg/dL HDL Cholesterol (40-60) mg/dL Cholesterol/HDL Ratio (3.3-6.0) Med Orders - Current: Current Medications Dextrose/Water (50% Dextrose In Water 50 Ml Syringe) 50 ml IVPUSH ASDIRECTED PRN PRN Reason: Hypoglycemia Dextrose/Water (50% Dextrose In Water 50 Ml Syringe) 50 ml IVPUSH ASDIRECTED PRN PRN Reason: Hypoglycemia Diphenhydramine HCl (Diphenhydramine 50 Mg/Ml Sdv) 25 mg IVPUSH Q6H PRN PRN Reason: Nausea Last Admin: 02/03/21 16:20 Dose: 25 mg Documented by: Enoxaparin Sodium (Enoxaparin 40 Mg/0.4 Ml Syringe) 40 mg SUBCUT Q24H [facility] Last Admin: 02/04/21 15:42 Dose: 40 mg Documented by: Glucagon (Glucagon,Human Recombinant 1 Mg Vial) 1 mg IM ASDIRECTED PRN PRN Reason: Hypoglycemia Glucagon (Glucagon,Human Recombinant 1 Mg Vial) 1 mg IM ASDIRECTED PRN PRN Reason: Hypoglycemia Erythromycin Lactobionate 300 (mg/ Sodium Chloride) 100 mls @ 100 mls/hr IV Q6H [facility] Last Admin: 02/04/21 17:37 Dose: 100 mls/hr Documented by: Potassium Chloride/Sodium Chloride (1/2 Ns With 20 Meq Kcl) 1,000 mls @ 250 mls/hr IV ASDIRECTED [facility] Stop: 02/04/21 23:59 Last Admin: 02/03/21 08:08 Dose: 250 mls/hr Documented by: Dextrose/Sodium Chloride (Dextrose 5%-1/2 Ns) 1,000 mls @ 50 mls/hr IV ASDIRE CTED [facility] Last Infusion: 02/04/21 18:00 Dose: 50 mls/hr Documented by: Insulin Regular in 0.9 % NACL (Myxredlin In Ns 100 Unit/100 Ml) 100 mls @ 1 mls/hr IV TITRATE [facility]; Protocol Last Admin: 02/04/21 22:49 Dose: 2.5 mls/hr, 2.5 mls/hr Documented by: Insulin Aspart (Insulin Aspart 100 Units/Ml 3 Ml Pen) 0 unit SUBCUT TIDAC [facility]; Protocol Last Admin: 02/04/21 18:00 Dose: Not Given Documented by: Insulin Glargine (Insulin Glargine,Human Rec. Analog 100 Units/Ml 3 Ml Pen) 10 units SUBCUT BEDTIME [facility] Last Admin: 02/04/21 20:07 Dose: Not Given Documented by: Lorazepam (Lorazepam 2 Mg/Ml Sdv) 2 mg IVPUSH Q2H PRN PRN Reason: Agitation Metoclopramide HCl (Metoclopramide 10 Mg Tab) 5 mg PO Q6H [facility] Last Admin: 02/04/21 17:38 Dose: 5 mg Documented by: Ondansetron HCl (Ondansetron 4 Mg Tab.Dis) 4 mg PO Q6H PRN PRN Reason: Nausea Last Admin: 01/30/21 13:19 Dose: 4 mg Documented by: Ondansetron HCl (Ondansetron 4 Mg/2 Ml Sdv) 4 mg IVPUSH Q6H PRN PRN Reason: Nausea/Vomiting Last Admin: 02/04/21 11:02 Dose: 4 mg Documented by: Pantoprazole Sodium (Pantoprazole 40 Mg/10 Ml Syringe) 40 mg IVPUSH Q24H [facility] Last Admin: 02/04/21 15:41 Dose: 40 mg Documented by: Buprenorphine Hcl/Naloxone Hcl 1 Each Tab.Subl 8/2 MgPt Own 1 each PO TID PRN PRN Reason: WITHDRAWAL Last Admin: 02/04/21 14:58 Dose: 1 each Documented by: Sodium Chloride (Sodium Chloride 0.9% 10 Ml Syringe) 10 ml FLUSH ASDIRECTED PRN PRN Reason: Keep Vein Open Last Admin: 01/26/21 14:32 Dose: 10 ml Documented by: Sodium Chloride (Sodium Chloride 0.9% 2.5 Ml Syringe) 2.5 ml FLUSH ASDIRECTED PRN PRN Reason: Keep Vein Open Last Admin: 01/26/21 14:32 Dose: 2.5 ml Documented by: Discontinued Medications Diphenhydramine HCl (Diphenhydramine 50 Mg/Ml Sdv) 25 mg IVPUSH ONETIME ONE Stop: 01/26/21 14:08 Last Admin: 01/26/21 14:31 Dose: 25 mg Documented by: Diphenhydramine HCl (Diphenhydramine 25 Mg Cap) 25 mg PO ONETIME ONE Stop: 01/26/21 21:19 Last Admin: 01/26/21 21:48 Dose: 25 mg Documented by: Diphenhydramine HCl (Diphenhydramine 25 Mg Cap) 25 mg PO ONETIME ONE Stop: 01/28/21 10:01 Last Admin: 01/28/21 09:38 Dose: 25 mg Documented by: Diphenhydramine HCl (Diphenhydramine 50 Mg/Ml Sdv) 25 mg IVPUSH Q4H PRN PRN Reason: Itching Stop: 01/29/21 20:00 Last Admin: 01/29/21 10:32 Dose: 25 mg Documented by: Diphenhydramine HCl (Diphenhydramine 25 Mg Cap) 25 mg PO ONETIME ONE Stop: 01/30/21 04:09 Last Admin: 01/30/21 18:18 Dose: Not Given Documented by: Diphenhydramine HCl (Diphenhydramine 25 Mg Cap) 25 mg PO ONETIME ONE Stop: 01/30/21 18:16 Last Admin: 01/30/21 18:22 Dose: 25 mg Documented by: Hydromorphone HCl (Hydromorphone 1 Mg/Ml Syringe) 0.5 mg IVPUSH Q4H PRN PRN Reason: Pain Stop: 01/28/21 20:59 Last Admin: 01/28/21 06:32 Dose: 0.5 mg Documented by: Sodium Chloride (Normal Saline) 1,000 mls @ 999 mls/hr IV ASDIRECTED [facility] Last Admin: 01/26/21 14:32 Dose: 999 mls/hr Documented by: Sodium Chloride (Normal Saline) 1,000 mls @ 999 mls/hr IV ASDIRECTED [facility] Insulin Human Regular 100 unit (/ Sodium Chloride) 100 mls @ 6 mls/hr IV TITRATE [facility]; Protocol Lactated Ringer's (Ringers, Lactated) 1,000 mls @ 999 mls/hr IV ASDIRECTED [facility] Last Admin: 01/26/21 15:59 Dose: 999 mls/hr Documented by: Insulin Regular in 0.9 % NACL (100 unit/ Premix) 100 mls @ 6 mls/hr IV TITRATE [facility]; Protocol Last Titration: 01/29/21 09:38 Dose: 0 unit/hr, 0 mls/hr Documented by: Lactated Ringer's (Ringers, Lactated) 1,000 mls @ 150 mls/hr IV ASDIRECTED [facility] Last Infusion: 01/26/21 22:13 Dose: 0 mls/hr Documented by: Dextrose/Water (Dextrose 5% In Water) 1,000 mls @ 100 mls/hr IV ASDIRECTED [facility] Last Admin: 01/29/21 08:20 Dose: 100 mls/hr Documented by: Ceftriaxone Sodium/Dextrose 1 (gm/ Premix) 50 mls @ 100 mls/hr IV Q24H [facility] Stop: 02/01/21 23:00 Last Admin: 02/01/21 23:29 Dose: 100 mls/hr Documented by: Potassium Chloride (Kcl In Water 40 Meq/100 Ml) 100 mls @ 25 mls/hr IV ONETIME ONE Stop: 01/28/21 13:59 Last Admin: 01/28/21 09:54 Dose: 25 mls/hr Documented by: Sodium Chloride (Sodium Chloride 0.45%) 1,000 mls @ 75 mls/hr IV ASDIRECTED [facility] Last Infusion: 01/30/21 01:45 Dose: 0 mls/hr Documented by: Sodium Chloride (Sodium Chloride 0.45%) 500 mls @ 75 mls/hr IV ASDIRECTED [facility] Last Admin: 01/30/21 11:00 Dose: 75 mls/hr Documented by: Sodium Chloride (Normal Saline) 1,000 mls @ 500 mls/hr IV ASDIRECTED [facility] Stop: 02/02/21 15:29 Last Admin: 02/02/21 13:29 Dose: 500 mls/hr Documented by: Sodium Chloride (Normal Saline) 1,000 mls @ 250 mls/hr IV ASDIRECTED [facility] Stop: 02/04/21 19:29 Last Admin: 02/02/21 15:35 Dose: 250 mls/hr Documented by: Magnesium Sulfate 2 gm/ Premix 50 mls @ 12.5 mls/hr IV ONETIME ONE Stop: 02/03/21 15:57 Last Admin: 02/03/21 13:05 Dose: 12.5 mls/hr Documented by: Sodium Chloride (Normal Saline) 1,000 mls @ 250 mls/hr IV ASDIRECTED [facility] Stop: 02/04/21 19:14 Last Infusion: 02/03/21 20:21 Dose: 150 mls/hr Documented by: Insulin Regular in 0.9 % NACL (Myxredlin In Ns 100 Unit/100 Ml) 100 mls @ 51.483 mls/hr IV TITRATE [facility]; Protocol Last Titration: 02/04/21 03:05 Dose: 1 units/kg/hr, 51.483 mls/hr Documented by: Potassium Chloride 40 meq/ (Premix) 100 mls @ 25 mls/hr IV ONETIME ONE Stop: 02/04/21 08:19 Last Admin: 02/04/21 04:59 Dose: 25 mls/hr Documented by: Potassium Chloride 20 meq/ (Premix) 50 mls @ 25 mls/hr IV ONETIME ONE Stop: 02/04/21 10:29 Last Admin: 02/04/21 08:47 Dose: 25 mls/hr Documented by: Potassium Chloride 20 meq/ (Premix) 50 mls @ 25 mls/hr IV ONETIME ONE Stop: 02/04/21 14:59 Last Admin: 02/04/21 12:56 Dose: 25 mls/hr Documented by: Insulin Aspart (Insulin Aspart 100 Units/Ml 10 Ml Vial) 10 unit SUBCUT STAT STA Stop: 01/26/21 15:00 Last Admin: 01/26/21 16:01 Dose: Not Given Documented by: Insulin Aspart (Insulin Aspart 100 Units/Ml 3 Ml Pen) 0 unit SUBCUT QIDACANDBED [facility]; Protocol Last Admin: 01/29/21 12:44 Dose: 8 unit Documented by: Insulin Aspart (Insulin Aspart 100 Units/Ml 3 Ml Pen) 0 unit SUBCUT Q4H [facility]; Protocol Last Admin: 02/03/21 11:24 Dose: 2 units Documented by: Insulin Aspart (Insulin Aspart 100 Units/Ml 3 Ml Pen) 0 unit SUBCUT QID [facility]; Protocol Last Admin: 02/03/21 12:58 Dose: Not Given Documented by: Metoclopramide HCl (Metoclopramide 10 Mg/2 Ml Sdv) 10 mg IVPUSH ONETIME ONE Stop: 01/26/21 14:08 Last Admin: 01/26/21 14:31 Dose: 10 mg Documented by: Metoclopramide HCl (Metoclopramide 10 Mg Tab) 10 mg PO TID PRN PRN Reason: Nausea/Vomiting Last Admin: 02/02/21 03:10 Dose: 10 mg Documented by: Non-Formulary Medication (Buprenorphine Hcl/Naloxone Hcl) 3 tab SL TID PRN PRN Reason: Abdominal Pain Ondansetron HCl (Ondansetron 4 Mg/2 Ml Sdv) Confirm Administered Dose 4 mg .ROUTE .STK-MED ONE Stop: 01/26/21 20:50 Last Admin: 01/26/21 21:47 Dose: Not Given Documented by: Ondansetron HCl (Ondansetron 4 Mg/2 Ml Sdv) 4 mg IVPUSH Q4H PRN PRN Reason: Nausea/Vomiting Last Admin: 01/26/21 21:47 Dose: 4 mg Documented by: Pantoprazole Sodium (Pantoprazole 40 Mg/10 Ml Syringe) 40 mg IVPUSH NOW ONE Stop: 02/03/21 03:30 Last Admin: 02/03/21 03:40 Dose: 40 mg Documented by: Potassium Chloride (Potassium Chloride 20 Meq Tab.Er) 40 meq PO ONETIME ONE Stop: 01/28/21 08:40 Last Admin: 01/28/21 09:38 Dose: 40 meq Documented by: Prochlorperazine Edisylate (Prochlorperazine 10 Mg/2 Ml Sdv) 10 mg IM ONETIME ONE Stop: 02/03/21 03:29 Last Admin: 02/03/21 03:40 Dose: 10 mg Documented by: - Exam General: Alert, Oriented HEENT: Pupils Equal, Pupils Reactive, EOMI, Mucous Membr. Moist/[place] Neck: Supple Lungs: Clear to Auscultation, Normal Respiratory Effort Cardiovascular: Regular Rate, Regular Rhythm GI/Abdominal Exam: Normal Bowel Sounds, Soft, Non-Tender, No Organomegaly, No Distention, No Abnormal Bruit, No Mass, Pelvis Stable (Male) Exam: No Hernia, Normal Inspection, Normal Prostate, Circumcised Back Exam: Normal Inspection, Full Range of Motion Extremities: Normal Inspection, Normal Range of Motion, Non-Tender, No Pedal Edema, Normal Capillary Refill Skin: Warm, Dry, Intact Wound/Incisions: Healing Well Neurological: No New Focal Deficit Psy/Mental Status: Alert, Normal Affect, Normal Mood - Patient Data Lab Results Last 24 hrs: Laboratory Results - last 24 hr 02/03/21 02/03/21 02/04/21 Range/Units 23:07 23:07 00:02 Sodium 142 (136-148) mmol/L Potassium 3.6 (3.5-5.1) mmol/L Chloride 109 H (98-107) mmol/L Carbon Dioxide 13.6 L (21.0-32.0) mmol/L BUN 11 (7.0-18.0) mg/dL Creatinine 1.4 H (0.8-1.3) mg/dL Est Cr Clr Drug Dosing 57.28 mL/min Estimated GFR (MDRD) > 60.0 ml/min Glucose 178 H (74-106) mg/dL POC Glucose 161 H 125 H (70-99) mg/dL Calcium 8.3 L (8.5-10.1) mg/dL Magnesium 2.1 (1.8-2.4) mg/dL Triglycerides (0-200) mg/dL Cholesterol (50-200) mg/dL LDL Cholesterol, Calc (60-180) mg/dL VLDL Cholesterol (5-55) mg/dL HDL Cholesterol (40-60) mg/dL Cholesterol/HDL Ratio (3.3-6.0) 02/04/21 02/04/21 02/04/21 Range/Units 01:02 03:01 03:24 Sodium 143 (136-148) mmol/L Potassium 3.3 L (3.5-5.1) mmol/L Chloride 109 H (98-107) mmol/L Carbon Dioxide 17.0 L (21.0-32.0) mmol/L BUN 9 (7.0-18.0) mg/dL Creatinine 1.3 (0.8-1.3) mg/dL Est Cr Clr Drug Dosing 61.69 mL/min Estimated GFR (MDRD) > 60.0 ml/min Glucose 144 H (74-106) mg/dL POC Glucose 101 H 131 H (70-99) mg/dL Calcium 8.0 L (8.5-10.1) mg/dL Magnesium 1.9 (1.8-2.4) mg/dL Triglycerides (0-200) mg/dL Cholesterol (50-200) mg/dL LDL Cholesterol, Calc (60-180) mg/dL VLDL Cholesterol (5-55) mg/dL HDL Cholesterol (40-60) mg/dL Cholesterol/HDL Ratio (3.3-6.0) 02/04/21 02/04/21 02/04/21 Range/Units 04:00 04:47 06:00 Sodium (136-148) mmol/L Potassium (3.5-5.1) mmol/L Chloride (98-107) mmol/L Carbon Dioxide (21.0-32.0) mmol/L BUN (7.0-18.0) mg/dL Creatinine (0.8-1.3) mg/dL Est Cr Clr Drug Dosing mL/min Estimated GFR (MDRD) ml/min Glucose (74-106) mg/dL POC Glucose 134 H 129 H 112 H (70-99) mg/dL Calcium (8.5-10.1) mg/dL Magnesium (1.8-2.4) mg/dL Triglycerides (0-200) mg/dL Cholesterol (50-200) mg/dL LDL Cholesterol, Calc (60-180) mg/dL VLDL Cholesterol (5-55) mg/dL HDL Cholesterol (40-60) mg/dL Cholesterol/HDL Ratio (3.3-6.0) 02/04/21 02/04/21 02/04/21 Range/Units 06:55 06:55 07:05 Sodium 144 (136-148) mmol/L Potassium 3.6 (3.5-5.1) mmol/L Chloride 109 H (98-107) mmol/L Carbon Dioxide 16.1 L (21.0-32.0) mmol/L BUN 7 (7.0-18.0) mg/dL Creatinine 1.3 (0.8-1.3) mg/dL Est Cr Clr Drug Dosing 61.69 mL/min Estimated GFR (MDRD) > 60.0 ml/min Glucose 157 H (74-106) mg/dL POC Glucose 140 H (70-99) mg/dL Calcium 8.6 (8.5-10.1) mg/dL Magnesium 2.0 (1.8-2.4) mg/dL Triglycerides 133 (0-200) mg/dL Cholesterol 192 (50-200) mg/dL LDL Cholesterol, Calc 124 (60-180) mg/dL VLDL Cholesterol 26 (5-55) mg/dL HDL Cholesterol 41 (40-60) mg/dL Cholesterol/HDL Ratio 4.7 (3.3-6.0) 02/04/21 02/04/21 02/04/21 Range/Units 08:11 09:03 10:04 Sodium (136-148) mmol/L Potassium (3.5-5.1) mmol/L Chloride (98-107) mmol/L Carbon Dioxide (21.0-32.0) mmol/L BUN (7.0-18.0) mg/dL Creatinine (0.8-1.3) mg/dL Est Cr Clr Drug Dosing mL/min Estimated GFR (MDRD) ml/min Glucose (74-106) mg/dL POC Glucose 174 H 176 H 168 H (70-99) mg/dL Calcium (8.5-10.1) mg/dL Magnesium (1.8-2.4) mg/dL Triglycerides (0-200) mg/dL Cholesterol (50-200) mg/dL LDL Cholesterol, Calc (60-180) mg/dL VLDL Cholesterol (5-55) mg/dL HDL Cholesterol (40-60) mg/dL Cholesterol/HDL Ratio (3.3-6.0) 02/04/21 02/04/21 02/04/21 Range/Units 11:07 11:09 12:08 Sodium (136-148) mmol/L Potassium (3.5-5.1) mmol/L Chloride (98-107) mmol/L Carbon Dioxide (21.0-32.0) mmol/L BUN (7.0-18.0) mg/dL Creatinine (0.8-1.3) mg/dL Est Cr Clr Drug Dosing mL/min Estimated GFR (MDRD) ml/min Glucose (74-106) mg/dL POC Glucose 152 H 162 H (70-99) mg/dL Calcium (8.5-10.1) mg/dL Magnesium 1.9 (1.8-2.4) mg/dL Triglycerides (0-200) mg/dL Cholesterol (50-200) mg/dL LDL Cholesterol, Calc (60-180) mg/dL VLDL Cholesterol (5-55) mg/dL HDL Cholesterol (40-60) mg/dL Cholesterol/HDL Ratio (3.3-6.0) 02/04/21 02/04/21 02/04/21 Range/Units 14:02 15:38 15:38 Sodium 143 (136-148) mmol/L Potassium 3.9 (3.5-5.1) mmol/L Chloride 109 H (98-107) mmol/L Carbon Dioxide 22.2 (21.0-32.0) mmol/L BUN 5 L (7.0-18.0) mg/dL Creatinine 1.2 (0.8-1.3) mg/dL Est Cr Clr Drug Dosing 66.83 mL/min Estimated GFR (MDRD) > 60.0 ml/min Glucose 228 H (74-106) mg/dL POC Glucose 162 H 193 H (70-99) mg/dL Calcium 8.6 (8.5-10.1) mg/dL Magnesium (1.8-2.4) mg/dL Triglycerides (0-200) mg/dL Cholesterol (50-200) mg/dL LDL Cholesterol, Calc (60-180) mg/dL VLDL Cholesterol (5-55) mg/dL HDL Cholesterol (40-60) mg/dL Cholesterol/HDL Ratio (3.3-6.0) 02/04/21 02/04/21 02/04/21 Range/Units 16:14 17:00 18:02 Sodium (136-148) mmol/L Potassium (3.5-5.1) mmol/L Chloride (98-107) mmol/L Carbon Dioxide (21.0-32.0) mmol/L BUN (7.0-18.0) mg/dL Creatinine (0.8-1.3) mg/dL Est Cr Clr Drug Dosing mL/min Estimated GFR (MDRD) ml/min Glucose (74-106) mg/dL POC Glucose 226 H 292 H 316 H (70-99) mg/dL Calcium (8.5-10.1) mg/dL Magnesium (1.8-2.4) mg/dL Triglycerides (0-200) mg/dL Cholesterol (50-200) mg/dL LDL Cholesterol, Calc (60-180) mg/dL VLDL Cholesterol (5-55) mg/dL HDL Cholesterol (40-60) mg/dL Cholesterol/HDL Ratio (3.3-6.0) 02/04/21 02/04/21 02/04/21 Range/Units 19:00 19:28 19:53 Sodium 140 (136-148) mmol/L Potassium 4.0 (3.5-5.1) mmol/L Chloride 109 H (98-107) mmol/L Carbon Dioxide 18.8 L (21.0-32.0) mmol/L BUN 6 L (7.0-18.0) mg/dL Creatinine 1.2 (0.8-1.3) mg/dL Est Cr Clr Drug Dosing 66.83 mL/min Estimated GFR (MDRD) > 60.0 ml/min Glucose 348 H (74-106) mg/dL POC Glucose 312 H 299 H (70-99) mg/dL Calcium 8.8 (8.5-10.1) mg/dL Magnesium (1.8-2.4) mg/dL Triglycerides (0-200) mg/dL Cholesterol (50-200) mg/dL LDL Cholesterol, Calc (60-180) mg/dL VLDL Cholesterol (5-55) mg/dL HDL Cholesterol (40-60) mg/dL Cholesterol/HDL Ratio (3.3-6.0) 02/04/21 02/04/21 Range/Units 21:01 21:58 Sodium (136-148) mmol/L Potassium (3.5-5.1) mmol/L Chloride (98-107) mmol/L Carbon Dioxide (21.0-32.0) mmol/L BUN (7.0-18.0) mg/dL Creatinine (0.8-1.3) mg/dL Est Cr Clr Drug Dosing mL/min Estimated GFR (MDRD) ml/min Glucose (74-106) mg/dL POC Glucose 255 H 233 H (70-99) mg/dL Calcium (8.5-10.1) mg/dL Magnesium (1.8-2.4) mg/dL Triglycerides (0-200) mg/dL Cholesterol (50-200) mg/dL LDL Cholesterol, Calc (60-180) mg/dL VLDL Cholesterol (5-55) mg/dL HDL Cholesterol (40-60) mg/dL Cholesterol/HDL Ratio (3.3-6.0) Result Diagrams: 02/02/21 06:08 02/04/21 19:28 Sepsis Event Note - Evaluation Sepsis Screening Result: No Definite Risk - Focused Exam Vital Signs: Vital Signs Temp Resp BP Pulse Ox Pulse Ox 02/04/21 21:00 7 L 116/79 98 02/04/21 20:00 11 L 138/75 97 02/04/21 19:00 37.1 C 11 L 126/85 98 02/04/21 18:00 10 L 116/80 99 02/04/21 17:00 9 L 104/74 98 02/04/21 16:00 36.2 C 20 111/80 100 12/26/21 15:00 10 L 100/60 95 97 02/04/21 14:00 10 L 105/65 90 L 02/04/21 13:00 10 L 127/89 92 L 02/04/21 12:00 36.5 C 9 L 113/78 93 L 02/04/21 11:00 10 L 98 - Problem List & Annotations (1) Dehydration SNOMED Code(s): 98742546 Code(s): E86.0 - DEHYDRATION Status: Acute Priority: Medium Current Visit: Yes Annotation/Comment:: PO intake still minimal. Patient states, "I am afraid to eat because it makes my stomach hurt and I feel nauseous". We must then continue to hydrate patient due to elevation in creatinine. Have used half-normal saline with 20 with close K per liter at one quarter bag or 250 mL's per hour. 3 bags total. Due to evidence of increasing anion gap will piggyback also to 50 of plain saline an hour plus another 2 bags with this. (2) Diabetic gastroparesis SNOMED Code(s): 515235773 Code(s): E11.43 - TYPE 2 DIABETES W DIABETIC AUTONOMIC (POLY)NEUROPATHY; K31.84 - GASTROPARESIS Status: Acute Priority: High Current Visit: Yes Onset Date: ~02/04/21 Annotation/Comment:: difficult and refractory but better today (3) Diabetic ketoacidosis SNOMED Code(s): 980896633, 472734267 Code(s): E11.10 - TYPE 2 DIABETES MELLITUS WITH KETOACIDOSIS WITHOUT COMA Status: Acute Priority: High Current Visit: Yes Qualifiers: Diabetes mellitus type: type 1 Diabetes mellitus complication detail: without coma Qualified Code(s): E10.10 - Type 1 diabetes mellitus with ketoacidosis without coma (4) Increased anion gap metabolic acidosis SNOMED Code(s): 98040574 Code(s): E87.2 - ACIDOSIS Status: Acute Current Visit: Yes Annotation/Comment:: dka better and cont i.v until 6 pm at 150 a and have decreased rate to 50 bu t monitor b.s . off insulin drip. recheck labs in am . - Problem List Review Problem List Initiated/Reviewed/Updated: Yes - My Orders Last 24 Hours: My Active Orders 02/04/21 12:00 Metoclopramide [Reglan] 5 mg PO Q6H 02/04/21 17:54 LORazepam [Ativan] 2 mg IVPUSH Q2H PRN 02/04/21 23:26 BMP [BASIC METABOLIC PANEL,BMP] [CHEM] Q4H 02/05/21 03:26 BMP [BASIC METABOLIC PANEL,BMP] [CHEM] Q4H 02/05/21 07:26 BMP [BASIC METABOLIC PANEL,BMP] [CHEM] Q4H 02/05/21 11:26 BMP [BASIC METABOLIC PANEL,BMP] [CHEM] Q4H 02/05/21 15:26 BMP [BASIC METABOLIC PANEL,BMP] [CHEM] Q4H 02/05/21 19:26 BMP [BASIC METABOLIC PANEL,BMP] [CHEM] Q4H 02/05/21 23:26 BMP [BASIC METABOLIC PANEL,BMP] [CHEM] Q4H - Plan Plan:: 02/04/21 afebrile //vss but no intake and abd still nauseated. less pain overall but not comfortable. i.v and insulin drip with b.s 200 -250 this am. sleeping poorly //depressed. no diarrhea last 12 hours. lungs clear cor rrr and mild tach 98. labs improved but k still low // hco3 still high. assess 1// dka : now starting to resolve. 2// may be form diarrhea sec to treating ecoli uti. 3// may be sec to treating chronic gastroparesis with ees. is also on reglan and getting only prn sec to nausea. plan: so will restart lower dose q 8 hours and advance feeding to see if he can tolerate. decrease i.v after po trial if stable . has increasing urine output and stable creatinine and lytes. replace k with i.v x extra dose today . mg stable . neurogenic bladder with renal impairment recheck creat. and cont straight cath which he states triggers abd pain . senior care preserving renal fx may need nephrology again and consider diverting urostomy to prevent further eroding renal function. psyche :he should see for depression but states alot of it form chronic pain a nd brittle diabetes and inability to avoid nausea/vomiting . uti recheck ua to see if residual infection . boh better this p.m decreased i.v but reassess ketones and a.g and abd status.
[2021-02-05 00:05] LABS: BLOOD UREA NITROGEN,BUN 5 mg/dL (7.0-18.0); CARBON DIOXIDE,CO2 20.9 mmol/L (21.0-32.0); CHLORIDE,CL 110 mmol/L (98-107); GLUCOSE RANDOM 217 mg/dL (74-106); POTASSIUM,K 3.8 mmol/L (3.5-5.1); SODIUM,NA 143 mmol/L (136-148)
[2021-02-05] MEDS: Ondansetron 4 MG/2 ML SDV IVPUSH PRN (00:23)
[2021-02-05] MEDS: diphenhydrAMINE 50 MG/ML SDV IVPUSH PRN ×2 (00:35→13:52)
[2021-02-05 03:55] LABS: BLOOD UREA NITROGEN,BUN 4 mg/dL (7.0-18.0); CARBON DIOXIDE,CO2 22.2 mmol/L (21.0-32.0); CHLORIDE,CL 110 mmol/L (98-107); GLUCOSE RANDOM 140 mg/dL (74-106); POTASSIUM,K 3.6 mmol/L (3.5-5.1); SODIUM,NA 144 mmol/L (136-148)
[2021-02-05] MEDS: Dextrose 5%-0.45% NaCl 1,000 ML IV SCH (05:06)
[2021-02-05] MEDS: SODIUM CHLORIDE 0.9% IV SCH ×3 (05:07→17:28)
[2021-02-05] MEDS: ERYTHROMYCIN LACTOBIONATE IV SCH ×3 (05:07→17:28)
[2021-02-05] MEDS: Metoclopramide 10 MG Tab PO SCH ×3 (05:08→17:29)
[2021-02-05] MEDS: NALOXONE HCL PO PRN (07:56)
[2021-02-05] MEDS: BUPRENORPHINE HCL PO PRN (07:56)
[2021-02-05] MEDS: Insulin Aspart 100 Units/ML 3 ML Pen SUBCUT SCH ×4 (07:57→21:18)
[2021-02-05 09:05] LABS: BLOOD UREA NITROGEN,BUN 4 mg/dL (7.0-18.0); CARBON DIOXIDE,CO2 22.6 mmol/L (21.0-32.0); CHLORIDE,CL 111 mmol/L (98-107); GLUCOSE RANDOM 130 mg/dL (74-106); SODIUM,NA 145 mmol/L (136-148)
[2021-02-05] MEDS ORDERED: Potassium Chloride Riders 40 MEQ in Premix Bag 1 BAG IV ONE (10:28)
[2021-02-05 11:59] LABS: BLOOD UREA NITROGEN,BUN 4 mg/dL (7.0-18.0); CARBON DIOXIDE,CO2 24.3 mmol/L (21.0-32.0); CHLORIDE,CL 110 mmol/L (98-107); GLUCOSE RANDOM 332 mg/dL (74-106); POTASSIUM,K 3.6 mmol/L (3.5-5.1); SODIUM,NA 144 mmol/L (136-148)
--- NOTE | 2021-02-05 13:34 | PCM.PN ---
- General Info Date of Service: 02/05/21 Admission Dx/Problem (Free Text): dka/uti Subjective Update: 02/05/21 dak better a.g. coming down and eating well and tolerating fluids. vss i>> os but expected. rr stable . bm x 2 voiding x 6. bs increased off insulin drip rebounded to 220-300 repeat urine ketones pending. cbc and lytes stable p.e. normal. assess : dka decreasd iv. to 50 cc hour with one low b.s this am // dc insulin drip and start ss novolog with meals . long acting insulin to be added. nasir.e needs dexcom or other cont glucose monitoring and discussed he needs to be compliant and stay on his sugars with boluses as directed by [facility]. pain control better . related to gastroparesis and self cathing and needs to follow up with nephrology and urology . check urine protein Micral and ketones. gastroparesis better on reglan and ees /// will cont current dose for now. adjust. brittleness needs cgm and he understands finaincial issues and compliance long standing and no support system in place . needs local provider at least for diabetes help. not sure if pain control meds adding to gastroparesis. neuropathy and eye evals needed. depression help needed as o.p. plan: transfer to floor and reassess stability today and possible dc discussed with him . provider appointment in [place] this week . Functional Status: Reports: Pain Controlled - Review of Systems General: Reports: No Symptoms HEENT: Reports: No Symptoms Pulmonary: Reports: No Symptoms Cardiovascular: Reports: No Symptoms Gastrointestinal: Reports: No Symptoms Genitourinary: Reports: No Symptoms, Other (straoight cath ) Musculoskeletal: Reports: No Symptoms Skin: Reports: No Symptoms Neurological: Reports: No Symptoms Psychiatric: Reports: No Symptoms - Patient Data Vitals - Most Recent: Last Vital Signs Temp 36.8 C 02/05/21 08:00 Pulse 88 02/03/21 11:00 Resp 8 L 02/05/21 11:00 BP 132/91 H 02/05/21 11:00 Pulse Ox 98 02/05/21 11:00 Weight - Most Recent: 49.351 kg I&O - Last 24 Hours: Intake & Output 02/04/21 02/05/21 02/05/21 23:59 07:59 15:59 Intake Total 950 Output Total 1400 Balance -450 Lab Results Last 24 Hours: Laboratory Results - last 24 hr 02/04/21 02/04/21 02/04/21 Range/Units 14:02 15:38 15:38 Sodium 143 (136-148) mmol/L Potassium 3.9 (3.5-5.1) mmol/L Chloride 109 H (98-107) mmol/L Carbon Dioxide 22.2 (21.0-32.0) mmol/L BUN 5 L (7.0-18.0) mg/dL Creatinine 1.2 (0.8-1.3) mg/dL Est Cr Clr Drug Dosing 66.83 mL/min Estimated GFR (MDRD) > 60.0 ml/min Glucose 228 H (74-106) mg/dL POC Glucose 162 H 193 H (70-99) mg/dL Calcium 8.6 (8.5-10.1) mg/dL 02/04/21 02/04/21 02/04/21 Range/Units 16:14 17:00 18:02 Sodium (136-148) mmol/L Potassium (3.5-5.1) mmol/L Chloride (98-107) mmol/L Carbon Dioxide (21.0-32.0) mmol/L BUN (7.0-18.0) mg/dL Creatinine (0.8-1.3) mg/dL Est Cr Clr Drug Dosing mL/min Estimated GFR (MDRD) ml/min Glucose (74-106) mg/dL POC Glucose 226 H 292 H 316 H (70-99) mg/dL Calcium (8.5-10.1) mg/dL 02/04/21 02/04/21 02/04/21 Range/Units 19:00 19:28 19:53 Sodium 140 (136-148) mmol/L Potassium 4.0 (3.5-5.1) mmol/L Chloride 109 H (98-107) mmol/L Carbon Dioxide 18.8 L (21.0-32.0) mmol/L BUN 6 L (7.0-18.0) mg/dL Creatinine 1.2 (0.8-1.3) mg/dL Est Cr Clr Drug Dosing 66.83 mL/min Estimated GFR (MDRD) > 60.0 ml/min Glucose 348 H (74-106) mg/dL POC Glucose 312 H 299 H (70-99) mg/dL Calcium 8.8 (8.5-10.1) mg/dL 02/04/21 02/04/21 02/04/21 Range/Units 21:01 21:58 22:55 Sodium (136-148) mmol/L Potassium (3.5-5.1) mmol/L Chloride (98-107) mmol/L Carbon Dioxide (21.0-32.0) mmol/L BUN (7.0-18.0) mg/dL Creatinine (0.8-1.3) mg/dL Est Cr Clr Drug Dosing mL/min Estimated GFR (MDRD) ml/min Glucose (74-106) mg/dL POC Glucose 255 H 233 H 187 H (70-99) mg/dL Calcium (8.5-10.1) mg/dL 02/04/21 02/04/21 02/05/21 Range/Units 23:34 23:40 00:45 Sodium 143 (136-148) mmol/L Potassium 3.8 (3.5-5.1) mmol/L Chloride 110 H (98-107) mmol/L Carbon Dioxide 20.9 L (21.0-32.0) mmol/L BUN 5 L (7.0-18.0) mg/dL Creatinine 1.1 (0.8-1.3) mg/dL Est Cr Clr Drug Dosing 72.90 mL/min Estimated GFR (MDRD) > 60.0 ml/min Glucose 217 H (74-106) mg/dL POC Glucose 179 H 191 H (70-99) mg/dL Calcium 8.9 (8.5-10.1) mg/dL 02/05/21 02/05/21 02/05/21 Range/Units 01:59 02:54 03:29 Sodium 144 (136-148) mmol/L Potassium 3.6 (3.5-5.1) mmol/L Chloride 110 H (98-107) mmol/L Carbon Dioxide 22.2 (21.0-32.0) mmol/L BUN 4 L (7.0-18.0) mg/dL Creatinine 1.2 (0.8-1.3) mg/dL Est Cr Clr Drug Dosing 66.83 mL/min Estimated GFR (MDRD) > 60.0 ml/min Glucose 140 H (74-106) mg/dL POC Glucose 160 H 117 H (70-99) mg/dL Calcium 8.5 (8.5-10.1) mg/dL 02/05/21 02/05/21 02/05/21 Range/Units 04:00 06:01 06:45 Sodium (136-148) mmol/L Potassium (3.5-5.1) mmol/L Chloride (98-107) mmol/L Carbon Dioxide (21.0-32.0) mmol/L BUN (7.0-18.0) mg/dL Creatinine (0.8-1.3) mg/dL Est Cr Clr Drug Dosing mL/min Estimated GFR (MDRD) ml/min Glucose (74-106) mg/dL POC Glucose 110 H 55 L 92 (70-99) mg/dL Calcium (8.5-10.1) mg/dL 02/05/21 02/05/21 02/05/21 Range/Units 07:34 07:35 08:24 Sodium 145 (136-148) mmol/L Potassium 3.0 L (3.5-5.1) mmol/L Chloride 111 H (98-107) mmol/L Carbon Dioxide 22.6 (21.0-32.0) mmol/L BUN 4 L (7.0-18.0) mg/dL Creatinine 1.1 (0.8-1.3) mg/dL Est Cr Clr Drug Dosing 72.90 mL/min Estimated GFR (MDRD) > 60.0 ml/min Glucose 130 H (74-106) mg/dL POC Glucose 118 H 208 H (70-99) mg/dL Calcium 8.5 (8.5-10.1) mg/dL 02/05/21 02/05/21 02/05/21 Range/Units 09:25 10:27 11:15 Sodium 144 (136-148) mmol/L Potassium 3.6 (3.5-5.1) mmol/L Chloride 110 H (98-107) mmol/L Carbon Dioxide 24.3 (21.0-32.0) mmol/L BUN 4 L (7.0-18.0) mg/dL Creatinine 1.1 (0.8-1.3) mg/dL Est Cr Clr Drug Dosing 72.90 mL/min Estimated GFR (MDRD) > 60.0 ml/min Glucose 332 H (74-106) mg/dL POC Glucose 279 H 302 H (70-99) mg/dL Calcium 8.3 L (8.5-10.1) mg/dL 02/05/21 02/05/21 Range/Units 11:16 12:09 Sodium (136-148) mmol/L Potassium (3.5-5.1) mmol/L Chloride (98-107) mmol/L Carbon Dioxide (21.0-32.0) mmol/L BUN (7.0-18.0) mg/dL Creatinine (0.8-1.3) mg/dL Est Cr Clr Drug Dosing mL/min Estimated GFR (MDRD) ml/min Glucose (74-106) mg/dL POC Glucose 296 H 299 H (70-99) mg/dL Calcium (8.5-10.1) mg/dL Med Orders - Current: Current Medications Dextrose/Water (50% Dextrose In Water 50 Ml Syringe) 50 ml IVPUSH ASDIRECTED PRN PRN Reason: Hypoglycemia Dextrose/Water (50% Dextrose In Water 50 Ml Syringe) 50 ml IVPUSH ASDIRECTED PRN PRN Reason: Hypoglycemia Diphenhydramine HCl (Diphenhydramine 50 Mg/Ml Sdv) 25 mg IVPUSH Q6H PRN PRN Reason: Nausea Last Admin: 02/05/21 00:35 Dose: 25 mg Documented by: Enoxaparin Sodium (Enoxaparin 40 Mg/0.4 Ml Syringe) 40 mg SUBCUT Q24H [facility] Last Admin: 02/04/21 15:42 Dose: 40 mg Documented by: Glucagon (Glucagon,Human Recombinant 1 Mg Vial) 1 mg IM ASDIRECTED PRN PRN Reason: Hypoglycemia Glucagon (Glucagon,Human Recombinant 1 Mg Vial) 1 mg IM ASDIRECTED PRN PRN Reason: Hypoglycemia Erythromycin Lactobionate 300 (mg/ Sodium Chloride) 100 mls @ 100 mls/hr IV Q6H [facility] Last Admin: 02/05/21 12:18 Dose: 100 mls/hr Documented by: Dextrose/Sodium Chloride (Dextrose 5%-1/2 Ns) 1,000 mls @ 50 mls/hr IV ASDIRECTED [facility] Last Infusion: 02/05/21 11:00 Dose: 10 mls/hr Documented by: Insulin Regular in 0.9 % NACL (Myxredlin In Ns 100 Unit/100 Ml) 100 mls @ 1 mls/hr IV TITRATE [facility]; Protocol Last Titration: 02/05/21 06:05 Dose: 0 mls/hr, 0 mls/hr Documented by: Potassium Chloride 40 meq/ (Premix) 100 mls @ 25 mls/hr IV ONETIME ONE Stop: 02/05/21 14:27 Last Admin: 02/05/21 10:55 Dose: 25 mls/hr Documented by: Insulin Aspart (Insulin Aspart 100 Units/Ml 3 Ml Pen) 0 unit SUBCUT TIDAC [facility]; Protocol Last Admin: 02/05/21 07:57 Dose: Not Given Documented by: Insulin Glargine (Insulin Glargine,Human Rec. Analog 100 Units/Ml 3 Ml Pen) 10 units SUBCUT BEDTIME [facility] Last Admin: 02/04/21 20:07 Dose: Not Given Documented by: Lorazepam (Lorazepam 2 Mg/Ml Sdv) 2 mg IVPUSH Q2H PRN PRN Reason: Agitation Metoclopramide HCl (Metoclopramide 10 Mg Tab) 5 mg PO Q6H [facility] Last Admin: 02/05/21 12:17 Dose: 5 mg Documented by: Ondansetron HCl (Ondansetron 4 Mg Tab.Dis) 4 mg PO Q6H PRN PRN Reason: Nausea Last Admin: 01/30/21 13:19 Dose: 4 mg Documented by: Ondansetron HCl (Ondansetron 4 Mg/2 Ml Sdv) 4 mg IVPUSH Q6H PRN PRN Reason: Nausea/Vomiting Last Admin: 02/05/21 00:23 Dose: 4 mg Documented by: Pantoprazole Sodium (Pantoprazole 40 Mg/10 Ml Syringe) 40 mg IVPUSH Q24H [facility] Last Admin: 02/04/21 15:41 Dose: 40 mg Documented by: Buprenorphine Hcl/Naloxone Hcl 1 Each Tab.Subl 8/2 MgPt Own 1 each PO TID PRN PRN Reason: WITHDRAWAL Last Admin: 02/05/21 07:56 Dose: 1 each Documented by: Sodium Chloride (Sodium Chloride 0.9% 10 Ml Syringe) 10 ml FLUSH ASDIRECTED PRN PRN Reason: Keep Vein Open Last Admin: 01/26/21 14:32 Dose: 10 ml Documented by: Sodium Chloride (Sodium Chloride 0.9% 2.5 Ml Syringe) 2.5 ml FLUSH ASDIRECTED PRN PRN Reason: Keep Vein Open Last Admin: 01/26/21 14:32 Dose: 2.5 ml Documented by: Discontinued Medications Diphenhydramine HCl (Diphenhydramine 50 Mg/Ml Sdv) 25 mg IVPUSH ONETIME ONE Stop: 01/26/21 14:08 Last Admin: 01/26/21 14:31 Dose: 25 mg Documented by: Diphenhydramine HCl (Diphenhydramine 25 Mg Cap) 25 mg PO ONETIME ONE Stop: 01/26/21 21:19 Last Admin: 01/26/21 21:48 Dose: 25 mg Documented by: Diphenhydramine HCl (Diphenhydramine 25 Mg Cap) 25 mg PO ONETIME ONE Stop: 01/28/21 10:01 Last Admin: 01/28/21 09:38 Dose: 25 mg Documented by: Diphenhydramine HCl (Diphenhydramine 50 Mg/Ml Sdv) 25 mg IVPUSH Q4H PRN PRN Reason: Itching Stop: 01/29/21 20:00 Last Admin: 01/29/21 10:32 Dose: 25 mg Documented by: Diphenhydramine HCl (Diphenhydramine 25 Mg Cap) 25 mg PO ONETIME ONE Stop: 01/30/21 04:09 Last Admin: 01/30/21 18:18 Dose: Not Given Documented by: Diphenhydramine HCl (Diphenhydramine 25 Mg Cap) 25 mg PO ONETIME ONE Stop: 01/30/21 18:16 Last Admin: 01/30/21 18:22 Dose: 25 mg Documented by: Hydromorphone HCl (Hydromorphone 1 Mg/Ml Syringe) 0.5 mg IVPUSH Q4H PRN PRN Reason: Pain Stop: 01/28/21 20:59 Last Admin: 01/28/21 06:32 Dose: 0.5 mg Documented by: Sodium Chloride (Normal Saline) 1,000 mls @ 999 mls/hr IV ASDIRECTED [facility] Last Admin: 01/26/21 14:32 Dose: 999 mls/hr Documented by: Sodium Chloride (Normal Saline) 1,000 mls @ 999 mls/hr IV ASDIRECTED [facility] Insulin Human Regular 100 unit (/ Sodium Chloride) 100 mls @ 6 mls/hr IV TITRATE [facility]; Protocol Lactated Ringer's (Ringers, Lactated) 1,000 mls @ 999 mls/hr IV ASDIRECTED [facility] Last Admin: 01/26/21 15:59 Dose: 999 mls/hr Documented by: Insulin Regular in 0.9 % NACL (100 unit/ Premix) 100 mls @ 6 mls/hr IV TITRATE [facility]; Protocol Last Titration: 01/29/21 09:38 Dose: 0 unit/hr, 0 mls/hr Documented by: Lactated Ringer's (Ringers, Lactated) 1,000 mls @ 150 mls/hr IV ASDIRECTED [facility] Last Infusion: 01/26/21 22:13 Dose: 0 mls/hr Documented by: Dextrose/Water (Dextrose 5% In Water) 1,000 mls @ 100 mls/hr IV ASDIRECTED [facility] Last Admin: 01/29/21 08:20 Dose: 100 mls/hr Documented by: Ceftriaxone Sodium/Dextrose 1 (gm/ Premix) 50 mls @ 100 mls/hr IV Q24H [facility] Stop: 02/01/21 23:00 Last Admin: 02/01/21 23:29 Dose: 100 mls/hr Documented by: Potassium Chloride (Kcl In Water 40 Meq/100 Ml) 100 mls @ 25 mls/hr IV ONETIME ONE Stop: 01/28/21 13:59 Last Admin: 01/28/21 09:54 Dose: 25 mls/hr Documented by: Sodium Chloride (Sodium Chloride 0.45%) 1,000 mls @ 75 mls/hr IV ASDIRECTED [facility] Last Infusion: 01/30/21 01:45 Dose: 0 mls/hr Documented by: Sodium Chloride (Sodium Chloride 0.45%) 500 mls @ 75 mls/hr IV ASDIRECTED [facility] Last Admin: 01/30/21 11:00 Dose: 75 mls/hr Documented by: Sodium Chloride (Normal Saline) 1,000 mls @ 500 mls/hr IV ASDIRECTED [facility] Stop: 02/02/21 15:29 Last Admin: 02/02/21 13:29 Dose: 500 mls/hr Documented by: Sodium Chloride (Normal Saline) 1,000 mls @ 250 mls/hr IV ASDIRECTED [facility] Stop: 02/04/21 19:29 Last Admin: 02/02/21 15:35 Dose: 250 mls/hr Documented by: Potassium Chloride/Sodium Chloride (1/2 Ns With 20 Meq Kcl) 1,000 mls @ 250 mls/hr IV ASDIRECTED [facility] Stop: 02/04/21 23:59 Last Admin: 02/03/21 08:08 Dose: 250 mls/hr Documented by: Magnesium Sulfate 2 gm/ Premix 50 mls @ 12.5 mls/hr IV ONETIME ONE Stop: 02/03/21 15:57 Last Admin: 02/03/21 13:05 Dose: 12.5 mls/hr Documented by: Sodium Chloride (Normal Saline) 1,000 mls @ 250 mls/hr IV ASDIRECTED [facility] Stop: 02/04/21 19:14 Last Infusion: 02/03/21 20:21 Dose: 150 mls/hr Documented by: Insulin Regular in 0.9 % NACL (Myxredlin In Ns 100 Unit/100 Ml) 100 mls @ 51. 483 mls/hr IV TITRATE [facility]; Protocol Last Titration: 02/04/21 03:05 Dose: 1 units/kg/hr, 51.483 mls/hr Documented by: Potassium Chloride 40 meq/ (Premix) 100 mls @ 25 mls/hr IV ONETIME ONE Stop: 02/04/21 08:19 Last Admin: 02/04/21 04:59 Dose: 25 mls/hr Documented by: Potassium Chloride 20 meq/ (Premix) 50 mls @ 25 mls/hr IV ONETIME ONE Stop: 02/04/21 10:29 Last Admin: 02/04/21 08:47 Dose: 25 mls/hr Documented by: Potassium Chloride 20 meq/ (Premix) 50 mls @ 25 mls/hr IV ONETIME ONE Stop: 02/04/21 14:59 Last Admin: 02/04/21 12:56 Dose: 25 mls/hr Documented by: Insulin Aspart (Insulin Aspart 100 Units/Ml 10 Ml Vial) 10 unit SUBCUT STAT STA Stop: 01/26/21 15:00 Last Admin: 01/26/21 16:01 Dose: Not Given Documented by: Insulin Aspart (Insulin Aspart 100 Units/Ml 3 Ml Pen) 0 unit SUBCUT QIDACANDBED [facility]; Protocol Last Admin: 01/29/21 12:44 Dose: 8 unit Documented by: Insulin Aspart (Insulin Aspart 100 Units/Ml 3 Ml Pen) 0 unit SUBCUT Q4H [facility]; Protocol Last Admin: 02/03/21 11:24 Dose: 2 units Documented by: Insulin Aspart (Insulin Aspart 100 Units/Ml 3 Ml Pen) 0 unit SUBCUT QID [facility]; Protocol Last Admin: 02/03/21 12:58 Dose: Not Given Documented by: Metoclopramide HCl (Metoclopramide 10 Mg/2 Ml Sdv) 10 mg IVPUSH ONETIME ONE Stop: 01/26/21 14:08 Last Admin: 01/26/21 14:31 Dose: 10 mg Documented by: Metoclopramide HCl (Metoclopramide 10 Mg Tab) 10 mg PO TID PRN PRN Reason: Nausea/Vomiting Last Admin: 02/02/21 03:10 Dose: 10 mg Documented by: Non-Formulary Medication (Buprenorphine Hcl/Naloxone Hcl) 3 tab SL TID PRN PRN Reason: Abdominal Pain Ondansetron HCl (Ondansetron 4 Mg/2 Ml Sdv) Confirm Administered Dose 4 mg .ROUTE .STK-MED ONE Stop: 01/26/21 20:50 Last Admin: 01/26/21 21:47 Dose: Not Given Documented by: Ondansetron HCl (Ondansetron 4 Mg/2 Ml Sdv) 4 mg IVPUSH Q4H PRN PRN Reason: Nausea/Vomiting Last Admin: 01/26/21 21:47 Dose: 4 mg Documented by: Pantoprazole Sodium (Pantoprazole 40 Mg/10 Ml Syringe) 40 mg IVPUSH NOW ONE Stop: 02/03/21 03:30 Last Admin: 02/03/21 03:40 Dose: 40 mg Documented by: Potassium Chloride (Potassium Chloride 20 Meq Tab.Er) 40 meq PO ONETIME ONE Stop: 01/28/21 08:40 Last Admin: 01/28/21 09:38 Dose: 40 meq Documented by: Prochlorperazine Edisylate (Prochlorperazine 10 Mg/2 Ml Sdv) 10 mg IM ONETIME ONE Stop: 02/03/21 03:29 Last Admin: 02/03/21 03:40 Dose: 10 mg Documented by: - Exam General: Alert, Oriented HEENT: Pupils Equal, Pupils Reactive, EOMI, Mucous Membr. Moist/[place] Neck: Supple Lungs: Clear to Auscultation, Normal Respiratory Effort Cardiovascular: Regular Rate, Regular Rhythm GI/Abdominal Exam: Normal Bowel Sounds, Soft, Non-Tender, No Organomegaly, No Distention, No Abnormal Bruit, No Mass, Pelvis Stable (Male) Exam: No Hernia, Normal Inspection, Normal Prostate, Circumcised Back Exam: Normal Inspection, Full Range of Motion Extremities: Normal Inspection, Normal Range of Motion, Non-Tender, No Pedal Edema, Normal Capillary Refill Skin: Warm, Dry, Intact Wound/Incisions: Healing Well Neurological: No New Focal Deficit Psy/Mental Status: Alert, Normal Affect, Normal Mood - Patient Data Lab Results Last 24 hrs: Laboratory Results - last 24 hr 02/04/21 02/04/21 02/04/21 Range/Units 14:02 15:38 15:38 Sodium 143 (136-148) mmol/L Potassium 3.9 (3.5-5.1) mmol/L Chloride 109 H (98-107) mmol/L Carbon Dioxide 22.2 (21.0-32.0) mmol/L BUN 5 L (7.0-18.0) mg/dL Creatinine 1.2 (0.8-1.3) mg/dL Est Cr Clr Drug Dosing 66.83 mL/min Estimated GFR (MDRD) > 60.0 ml/min Glucose 228 H (74-106) mg/dL POC Glucose 162 H 193 H (70-99) mg/dL Calcium 8.6 (8.5-10.1) mg/dL 02/04/21 02/04/21 02/04/21 Range/Units 16:14 17:00 18:02 Sodium (136-148) mmol/L Potassium (3.5-5.1) mmol/L Chloride (98-107) mmol/L Carbon Dioxide (21.0-32.0) mmol/L BUN (7.0-18.0) mg/dL Creatinine (0.8-1.3) mg/dL Est Cr Clr Drug Dosing mL/min Estimated GFR (MDRD) ml/min Glucose (74-106) mg/dL POC Glucose 226 H 292 H 316 H (70-99) mg/dL Calcium (8.5-10.1) mg/dL 02/04/21 02/04/21 02/04/21 Range/Units 19:00 19:28 19:53 Sodium 140 (136-148) mmol/L Potassium 4.0 (3.5-5.1) mmol/L Chloride 109 H (98-107) mmol/L Carbon Dioxide 18.8 L (21.0-32.0) mmol/L BUN 6 L (7.0-18.0) mg/dL Creatinine 1.2 (0.8-1.3) mg/dL Est Cr Clr Drug Dosing 66.83 mL/min Estimated GFR (MDRD) > 60.0 ml/min Glucose 348 H (74-106) mg/dL POC Glucose 312 H 299 H (70-99) mg/dL Calcium 8.8 (8.5-10.1) mg/dL 02/04/21 02/04/21 02/04/21 Range/Units 21:01 21:58 22:55 Sodium (136-148) mmol/L Potassium (3.5-5.1) mmol/L Chloride (98-107) mmol/L Carbon Dioxide (21.0-32.0) mmol/L BUN (7.0-18.0) mg/dL Creatinine (0.8-1.3) mg/dL Est Cr Clr Drug Dosing mL/min Estimated GFR (MDRD) ml/min Glucose (74-106) mg/dL POC Glucose 255 H 233 H 187 H (70-99) mg/dL Calcium (8.5-10.1) mg/dL 02/04/21 02/04/21 02/05/21 Range/Units 23:34 23:40 00:45 Sodium 143 (136-148) mmol/L Potassium 3.8 (3.5-5.1) mmol/L Chloride 110 H (98-107) mmol/L Carbon Dioxide 20.9 L (21.0-32.0) mmol/L BUN 5 L (7.0-18.0) mg/dL Creatinine 1.1 (0.8-1.3) mg/dL Est Cr Clr Drug Dosing 72.90 mL/min Estimated GFR (MDRD) > 60.0 ml/min Glucose 217 H (74-106) mg/dL POC Glucose 179 H 191 H (70-99) mg/dL Calcium 8.9 (8.5-10.1) mg/dL 02/05/21 02/05/21 02/05/21 Range/Units 01:59 02:54 03:29 Sodium 144 (136-148) mmol/L Potassium 3.6 (3.5-5.1) mmol/L Chloride 110 H (98-107) mmol/L Carbon Dioxide 22.2 (21.0-32.0) mmol/L BUN 4 L (7.0-18.0) mg/dL Creatinine 1.2 (0.8-1.3) mg/dL Est Cr Clr Drug Dosing 66.83 mL/min Estimated GFR (MDRD) > 60.0 ml/min Glucose 140 H (74-106) mg/dL POC Glucose 160 H 117 H (70-99) mg/dL Calcium 8.5 (8.5-10.1) mg/dL 02/05/21 02/05/21 02/05/21 Range/Units 04:00 06:01 06:45 Sodium (136-148) mmol/L Potassium (3.5-5.1) mmol/L Chloride (98-107) mmol/L Carbon Dioxide (21.0-32.0) mmol/L BUN (7.0-18.0) mg/dL Creatinine (0.8-1.3) mg/dL Est Cr Clr Drug Dosing mL/min Estimated GFR (MDRD) ml/min Glucose (74-106) mg/dL POC Glucose 110 H 55 L 92 (70-99) mg/dL Calcium (8.5-10.1) mg/dL 02/05/21 02/05/21 02/05/21 Range/Units 07:34 07:35 08:24 Sodium 145 (136-148) mmol/L Potassium 3.0 L (3.5-5.1) mmol/L Chloride 111 H (98-107) mmol/L Carbon Dioxide 22.6 (21.0-32.0) mmol/L BUN 4 L (7.0-18.0) mg/dL Creatinine 1.1 (0.8-1.3) mg/dL Est Cr Clr Drug Dosing 72.90 mL/min Estimated GFR (MDRD) > 60.0 ml/min Glucose 130 H (74-106) mg/dL POC Glucose 118 H 208 H (70-99) mg/dL Calcium 8.5 (8.5-10.1) mg/dL 02/05/21 02/05/21 02/05/21 Range/Units 09:25 10:27 11:15 Sodium 144 (136-148) mmol/L Potassium 3.6 (3.5-5.1) mmol/L Chloride 110 H (98-107) mmol/L Carbon Dioxide 24.3 (21.0-32.0) mmol/L BUN 4 L (7.0-18.0) mg/dL Creatinine 1.1 (0.8-1.3) mg/dL Est Cr Clr Drug Dosing 72.90 mL/min Estimated GFR (MDRD) > 60.0 ml/min Glucose 332 H (74-106) mg/dL POC Glucose 279 H 302 H (70-99) mg/dL Calcium 8.3 L (8.5-10.1) mg/dL 02/05/21 02/05/21 Range/Units 11:16 12:09 Sodium (136-148) mmol/L Potassium (3.5-5.1) mmol/L Chloride (98-107) mmol/L Carbon Dioxide (21.0-32.0) mmol/L BUN (7.0-18.0) mg/dL Creatinine (0.8-1.3) mg/dL Est Cr Clr Drug Dosing mL/min Estimated GFR (MDRD) ml/min Glucose (74-106) mg/dL POC Glucose 296 H 299 H (70-99) mg/dL Calcium (8.5-10.1) mg/dL Result Diagrams: 02/02/21 06:08 02/05/21 11:15 Sepsis Event Note - Evaluation Sepsis Screening Result: No Definite Risk - Focused Exam Vital Signs: Vital Signs Temp Resp BP Pulse Ox 02/05/21 11:00 8 L 132/91 H 98 02/05/21 10:00 11 L 89/53 L 95 02/05/21 09:00 10 L 112/75 99 02/05/21 08:00 36.8 C 10 L 117/71 98 02/05/21 07:00 18 126/81 99 02/05/21 06:00 9 L 124/79 98 02/05/21 05:00 10 L 119/77 98 02/05/21 04:00 36.4 C 10 L 101/67 99 02/05/21 03:00 13 103/65 97 02/05/21 02:00 10 L 111/75 96 - Problem List & Annotations (1) Dehydration SNOMED Code(s): 74381163 Code(s): E86.0 - DEHYDRATION Status: Acute Priority: Medium Current Visit: Yes Annotation/Comment:: doing well repeat labs and u.a.// cont current meds /advance diet. sq insulin started with ss. (2) Diabetic gastroparesis SNOMED Code(s): 961137165 Code(s): E11.43 - TYPE 2 DIABETES W DIABETIC AUTONOMIC (POLY)NEUROPATHY; K31.84 - GASTROPARESIS Status: Acute Priority: High Current Visit: Yes Onset Date: ~02/04/21 Annotation/Comment:: difficult and refractory but better today (3) Diabetic ketoacidosis SNOMED Code(s): 025147500, 044887599 Code(s): E11.10 - TYPE 2 DIABETES MELLITUS WITH KETOACIDOSIS WITHOUT COMA Status: Acute Priority: Medium Current Visit: Yes Qualifiers: Diabetes mellitus type: type 1 Diabetes mellitus complication detail: without coma Qualified Code(s): E10.10 - Type 1 diabetes mellitus with ke toacidosis without coma (4) Increased anion gap metabolic acidosis SNOMED Code(s): 63947972 Code(s): E87.2 - ACIDOSIS Status: Acute Priority: Low Current Visit: Yes Annotation/Comment:: dka better and cont i.v until 6 pm at 150 a and have decreased rate to 50 bu t monitor b.s . off insulin drip. recheck labs in am . - Problem List Review Problem List Initiated/Reviewed/Updated: Yes - My Orders Last 24 Hours: My Active Orders 02/04/21 17:54 LORazepam [Ativan] 2 mg IVPUSH Q2H PRN 02/05/21 10:28 Potassium Chloride Riders [KCL in Water 40 MEQ/100 ML] 40 meq Premix Bag 1 bag IV ONETIME 02/05/21 12:00 Accu Check [Blood Glucose Check, Bedside] [RC] WITHMEALSANDBED 02/05/21 15:26 BMP [BASIC METABOLIC PANEL,BMP] [CHEM] Q4H 02/05/21 19:26 BMP [BASIC METABOLIC PANEL,BMP] [CHEM] Q4H 02/05/21 23:26 BMP [BASIC METABOLIC PANEL,BMP] [CHEM] Q4H - Assessment Assessment:: 02/05/21 assess : dka decreasd iv. to 50 cc hour with one low b.s this am // dc insulin drip and start ss novolog with meals . long acting insulin to be added. [facility] needs dexcom or other cont glucose monitoring and discussed he needs to be compliant and stay on his sugars with boluses as directed by medina. pain control better . related to gastroparesis and self cathing and needs to follow up with nephrology and urology . check urine protein Micral and ketones. gastroparesis better on reglan and ees /// will cont current dose for now. adjust. brittleness needs cgm and he understands finaincial issues and compliance long standing and no support system in place . needs local provider at least for diabetes help. not sure if pain control meds adding to gastroparesis. neuropathy and eye evals needed. depression help needed as o.p. plan: transfer to floor and reassess stability today and possible dc discussed with him . provider appointment in [place] this week . boh - Plan Plan:: 02/04/21 afebrile //vss but no intake and abd still nauseated. less pain overall but not comfortable. i.v and insulin drip with b.s 200 -250 this am. sleeping poorly //depressed. no diarrhea last 12 hours. lungs clear cor rrr and mild tach 98. labs improved but k still low // hco3 still high. assess 1// dka : now starting to resolve. 2// may be form diarrhea sec to treating ecoli uti. 3// may be sec to treating chronic gastroparesis with ees. is also on reglan and getting only prn sec to nausea. plan: so will restart lower dose q 8 hours and advance feeding to see if he can tolerate. decrease i.v after po trial if stable . has increasing urine o utput and stable creatinine and lytes. replace k with i.v x extra dose today . mg stable . neurogenic bladder with renal impairment recheck creat. and cont straight cath which he states triggers abd pain . care home preserving renal fx may need nephrology again and consider diverting urostomy to prevent further eroding renal function. psyche :he should see for depression but states alot of it form chronic pain a nd brittle diabetes and inability to avoid nausea/vomiting . uti recheck ua to see if residual infection . boh better this p.m decreased i.v but reassess ketones and a.g and abd status. 02/05/21 dak better a.g. coming down and eating well and tolerating fluids. vss i>> os but expected. rr stable . bm x 2 voiding x 6. bs increased off insulin drip rebounded to 220-300 repeat urine ketones pending. cbc and lytes stable p.e. normal. assess : dka decreasd iv. to 50 cc hour with one low b.s this am // dc insulin drip and start ss novolog with meals . long acting insulin to be added. medina needs dexcom or other cont glucose monitoring and discussed he needs to be compliant and stay on his sugars with boluses as directed by medina. pain control better . related to gastroparesis and self cathing and needs to follow up with nephrology and urology . check urine protein Micral and ketones. gastroparesis better on reglan and ees /// will cont current dose for now. adjust. brittleness needs cgm and he understands finaincial issues and compliance long standing and no support system in place . needs local provider at least for diabetes help. not sure if pain control meds adding to gastroparesis. neuropathy and eye evals needed. depression help needed as o.p. plan: transfer to floor and reassess stability today and possible dc discussed with him . provider appointment in [place] this week . bang
[2021-02-05 16:15] LABS: BLOOD UREA NITROGEN,BUN 6 mg/dL (7.0-18.0); CARBON DIOXIDE,CO2 23.2 mmol/L (21.0-32.0); CHLORIDE,CL 106 mmol/L (98-107); GLUCOSE RANDOM 481 mg/dL (74-106); POTASSIUM,K 4.4 mmol/L (3.5-5.1); SODIUM,NA 140 mmol/L (136-148)
[2021-02-05] MEDS: Enoxaparin 40 MG/0.4 ML Syringe SUBCUT SCH (16:26)
[2021-02-05] MEDS: Pantoprazole 40 MG/10 ML Syringe IVPUSH SCH (16:26)
[2021-02-05] MEDS ORDERED: Glucagon,Human Recombinant 1 MG Vial IM PRN (16:52)
[2021-02-05] MEDS ORDERED: 50% Dextrose in Water 50 ML Syringe IVPUSH PRN (16:52)
[2021-02-05 20:02] LABS: BLOOD UREA NITROGEN,BUN 8 mg/dL (7.0-18.0); CARBON DIOXIDE,CO2 21.4 mmol/L (21.0-32.0); CHLORIDE,CL 106 mmol/L (98-107); GLUCOSE RANDOM 449 mg/dL (74-106); POTASSIUM,K 4.2 mmol/L (3.5-5.1); SODIUM,NA 140 mmol/L (136-148)
[2021-02-05] MEDS: Insulin Glargine,Human Rec. Analog 100 Units/ML 3 ML Pen SUBCUT SCH (21:19)
--- NOTE | 2021-02-05 22:36 | PCM.SN.2 ---
- Free Text/Narrative Note: In reviewing afternoon labs we noticed that with a bicarbonate of around 11 patient had once again slipped into metabolic acidosis. Ketones were confirmed. We elected to transfer patient to the ICU where an insulin drip could be begun. Insulin drip lab protocols were instituted. Patient was transferred and remained in stable condition.
[2021-02-05 23:59] LABS: BLOOD UREA NITROGEN,BUN 8 mg/dL (7.0-18.0); CARBON DIOXIDE,CO2 26.7 mmol/L (21.0-32.0); CHLORIDE,CL 111 mmol/L (98-107); GLUCOSE RANDOM 157 mg/dL (74-106); POTASSIUM,K 3.7 mmol/L (3.5-5.1); SODIUM,NA 145 mmol/L (136-148)
[2021-02-06] MEDS: Metoclopramide 10 MG Tab PO SCH ×2 (00:14→05:53)
[2021-02-06] MEDS: ERYTHROMYCIN LACTOBIONATE IV SCH ×2 (00:14→05:53)
[2021-02-06] MEDS: SODIUM CHLORIDE 0.9% IV SCH ×2 (00:14→05:53)
[2021-02-06] MEDS: diphenhydrAMINE 50 MG/ML SDV IVPUSH PRN (02:38)
[2021-02-06 08:27] VITALS: BP 111/76; PULSE 85
[2021-02-06] MEDS: Insulin Aspart 100 Units/ML 3 ML Pen SUBCUT SCH (09:27)
--- NOTE | 2021-02-06 09:31 | PCM.DCSUM1 ---
Discharge Summary - Hospital Course Brief History: 25 yo male with pmh of DM type 1, gastroparesis, neurogenic bladder who has had multiple admission for nausea and vomiting due to gastroparesis and UTI. Patient presents with a four day history of nausea and vomiting. He has not given himself any insulin in the past two days. He denies any fevers. Diagnosis: Stroke: No - Discharge Data Discharge Date: 02/06/21 Discharge Disposition: Home, Self-Care 01 Condition: Stable - Referral to Home Health Primary Care Physician: PCP None - Discharge Diagnosis/Problem(s) (1) Diabetic gastroparesis SNOMED Code(s): 167108389 ICD Code: E11.43 - TYPE 2 DIABETES W DIABETIC AUTONOMIC (POLY)NEUROPATHY; K31.84 - GASTROPARESIS Status: Acute Priority: High Onset Date: ~02/04/21 Problem Details: difficult and refractory but better today (2) Urinary tract infection SNOMED Code(s): 43218114 ICD Code: N39.0 - URINARY TRACT INFECTION, SITE NOT SPECIFIED Status: Acute Qualifiers: Urinary tract infection type: acute cystitis Hematuria presence: with hematuria Qualified Code(s): N30.01 - Acute cystitis with hematuria (3) Hypernatremia SNOMED Code(s): 752535094 ICD Code: E87.0 - HYPEROSMOLALITY AND HYPERNATREMIA Status: Resolved Problem Details: Resolved. (4) Depression SNOMED Code(s): 03181884 ICD Code: F32.9 - MAJOR DEPRESSIVE DISORDER, SINGLE EPISODE, UNSPECIFIED Status: Chronic Qualifiers: Depression Type: major depressive disorder Major depression recurrence: unspecified whether recurrent Active/Remission status: in remission of unspecified degree Qualified Code(s): F32.5 - Major depressive disorder, single episode, in full remission (5) Diabetes type 1, uncontrolled SNOMED Code(s): 66638914, 061780310 ICD Code: E10.65 - TYPE 1 DIABETES MELLITUS WITH HYPERGLYCEMIA Status: Chronic Priority: Medium Qualifiers: Glycemic state: with hyperglycemia Qualified Code(s): E10.65 - Type 1 diabetes mellitus with hyperglycemia (6) History of neurogenic bladder SNOMED Code(s): 525630132 ICD Code: Z87.448 - PERSONAL HISTORY OF OTHER DISEASES OF URINARY SYSTEM Status: Chronic (7) Hx of opioid abuse SNOMED Code(s): 147433530 ICD Code: F11.11 - OPIOID ABUSE, IN REMISSION Status: Chronic (8) Noncompliance with medication regimen SNOMED Code(s): 464792211 ICD Code: Z91.14 - PATIENT'S OTHER NONCOMPLIANCE WITH MEDICATION REGIMEN Status: Chronic (9) DKA, type 1 SNOMED Code(s): 81755308, 92113372 ICD Code: E10.10 - TYPE 1 DIABETES MELLITUS WITH KETOACIDOSIS WITHOUT COMA Status: Resolved - Patient Summary/Data Consults: Consultations 01/29/21 10:11 PT Evaluation and Treatment [CONS] Routine Hospital Course: Admission diagnoses Gastroparesis DKA Neurogenic bladder UTI, complicated Discharge diagnoses Gastroparesis improved DKA resolved Neurogenic bladder, stable UTI E. coli complicated treated and resolved Huynh was admitted secondary to nausea and vomiting likely secondary to gastroparesis found to be in DKA. Patient was treated initially with IV fluids insulin drip and was started on erythromycin. Once this was started he did have some improvement in nausea and vomiting. [facility] after resolution of DKA. Patient had worsening nausea and vomiting and reentered DKA and was treated again with insulin drip. Patient continued on erythromycin once DKA resolved patient tolerating diet much better and became more alert and was interactive with staff. Patient continued on Suboxone for chronic opioid use. Patient was seen by inclusion paraeducator. He has a provider that manages his Suboxone as well as diabetes and [place]. He sees them tomorrow 02/07/2021 for refill on Suboxone. He reports he has refills on all medications including insulin as well as metoclopramide. He was encouraged to find provider with in [place] to help manage his diabetes since this is where he is staying. We will set up follow-up appointment with Dr. Dc for follow-up in 1 week to help manage blood sugars with inclusion paraeducator Melvina. Patient return to the ER or clinic if concerns should arise. He will continue on erythromycin for another 4 days which should complete a 2-week course. He will have erythromycin 250 mg 3 times daily. - Patient Instructions Diet: Diabetic Diet Activity: No Strenuous Activities, Rest and Relax Today Showering/Bathing: May Shower Notify Provider of: Fever, Increased Pain, Swelling and Redness, Drainage, Nausea and/or Vomiting Other/Special Instructions: Please see someone in [place] to help manage Diabetes and see inclusion paraeducator to insure you are having well controlled blood sugars and up to date management - Discharge Plan *PRESCRIPTION DRUG MONITORING PROGRAM REVIEWED*: Not Applicable *COPY OF PRESCRIPTION DRUG MONITORING REPORT IN PATIENT HANY: Not Applicable Prescriptions/Med Rec: Erythromycin Base [Erythromycin] 250 mg PO TID #6 tablet Home Medications: Home Meds Insulin Aspart [NovoLOG] 10 - 15 unit SUBCUT TIDAC 08/22/20 [History] Insulin Glarg,Human.Rec.Analog [Lantus Solostar] 15 units SUBCUT BID 08/22/20 [History] Buprenorphine HCl/Naloxone HCl [Buprenorphine-Nalox 8-2 mg Tab] 3 tab SL DAILY 09/15/20 [History] Sucralfate [Carafate] 1 gm PO QIDACANDBED #120 tab 09/19/20 [Rx] Ondansetron [Zofran ODT] 4 mg PO Q6H PRN #12 tab.dis 10/14/20 [Rx] Metoclopramide HCl [Reglan] 10 mg PO TID PRN #10 tablet 01/24/21 [Rx] Pantoprazole Sodium [Protonix] 40 mg PO DAILY #30 tablet.dr 01/25/21 [Rx] Erythromycin Base [Erythromycin] 250 mg PO TID #6 tablet 02/06/21 [Rx] Oxygen Therapy Mode: Room Air Patient Handouts: Hypernatremia, [id number], Diabetes and Exercise-SportsMed, Erythromycin tablets, immediate release, Diabetic Ketoacidosis, Dehydration, Adult, [id number], Type 1 Diabetes Mellitus, Self-Care, Adult, [id number], Preventing Diabetic Ketoacidosis Referrals: Nereida Dc MD [Physician] - 02/14/21 9:30 am (Please arrive 15 minutes early with your ID and wearing a face covering.) - Discharge Summary/Plan Comment DC Time >30 min.: No Total # of Minutes for Discharge Time: 25 - Patient Data Vitals - Most Recent: Last Vital Signs Temp 97.1 F 02/06/21 08:26 Pulse 85 02/06/21 08:26 Resp 22 H 02/06/21 08:26 BP 111/76 02/06/21 08:26 Pulse Ox 98 02/06/21 08:26 Weight - Most Recent: 49.986 kg I&O - Last 24 hours: Intake & Output 02/05/21 02/06/21 02/06/21 22:59 06:59 14:59 Intake Total 400 700 Output Total 300 Balance 100 700 Lab Results - Last 24 hrs: Laboratory Results - last 24 hr 02/05/21 02/05/21 02/05/21 Range/Units 09:25 10:27 11:15 Sodium 144 (136-148) mmol/L Potassium 3.6 (3.5-5.1) mmol/L Chloride 110 H (98-107) mmol/L Carbon Dioxide 24.3 (21.0-32.0) mmol/L BUN 4 L (7.0-18.0) mg/dL Creatinine 1.1 (0.8-1.3) mg/dL Est Cr Clr Drug Dosing 72.90 mL/min Estimated GFR (MDRD) > 60.0 ml/min Glucose 332 H (74-106) mg/dL POC Glucose 279 H 302 H (70-99) mg/dL Calcium 8.3 L (8.5-10.1) mg/dL Urine Ketones (NEGATIVE) mg/dL 02/05/21 02/05/21 02/05/21 Range/Units 11:16 12:09 15:27 Sodium 140 (136-148) mmol/L Potassium 4.4 (3.5-5.1) mmol/L Chloride 106 (98-107) mmol/L Carbon Dioxide 23.2 (21.0-32.0) mmol/L BUN 6 L (7.0-18.0) mg/dL Creatinine 1.3 (0.8-1.3) mg/dL Est Cr Clr Drug Dosing 61.69 mL/min Estimated GFR (MDRD) > 60.0 ml/min Glucose 481 H (74-106) mg/dL POC Glucose 296 H 299 H (70-99) mg/dL Calcium 8.1 L (8.5-10.1) mg/dL Urine Ketones (NEGATIVE) mg/dL 02/05/21 02/05/21 02/05/21 Range/Units 16:28 18:30 19:40 Sodium 140 (136-148) mmol/L Potassium 4.2 (3.5-5.1) mmol/L Chloride 106 (98-107) mmol/L Carbon Dioxide 21.4 (21.0-32.0) mmol/L BUN 8 (7.0-18.0) mg/dL Creatinine 1.1 (0.8-1.3) mg/dL Est Cr Clr Drug Dosing 73.84 mL/min Estimated GFR (MDRD) > 60.0 ml/min Glucose 449 H (74-106) mg/dL POC Glucose 419 H* (70-99) mg/dL Calcium 8.3 L (8.5-10.1) mg/dL Urine Ketones MODERATE H (NEGATIVE) mg/dL 02/05/21 02/05/21 02/06/21 Range/Units 21:17 23:33 06:42 Sodium 145 (136-148) mmol/L Potassium 3.7 (3.5-5.1) mmol/L Chloride 111 H (98-107) mmol/L Carbon Dioxide 26.7 (21.0-32.0) mmol/L BUN 8 (7.0-18.0) mg/dL Creatinine 0.9 (0.8-1.3) mg/dL Est Cr Clr Drug Dosing 90.25 mL/min Estimated GFR (MDRD) > 60.0 ml/min Glucose 157 H (74-106) mg/dL POC Glucose 215 H 92 (70-99) mg/dL Calcium 8.4 L (8.5-10.1) mg/dL Urine Ketones (NEGATIVE) mg/dL Med Orders - Current: Current Medications Dextrose/Water (50% Dextrose In Water 50 Ml Syringe) 50 ml IVPUSH ASDIRECTED PRN PRN Reason: Hypoglycemia Dextrose/Water (50% Dextrose In Water 50 Ml Syringe) 50 ml IVPUSH ASDIRECTED PRN PRN Reason: Hypoglycemia Dextrose/Water (50% Dextrose In Water 50 Ml Syringe) 50 ml IVPUSH ASDIRECTED PRN PRN Reason: Hypoglycemia Diphenhydramine HCl (Diphenhydramine 50 Mg/Ml Sdv) 25 mg IVPUSH Q6H PRN PRN Reason: Nausea Last Admin: 02/06/21 02:38 Dose: 25 mg Documented by: Enoxaparin Sodium (Enoxaparin 40 Mg/0.4 Ml Syringe) 40 mg SUBCUT Q24H [facility] Last Admin: 02/05/21 16:26 Dose: 40 mg Documented by: Glucagon (Glucagon,Human Recombinant 1 Mg Vial) 1 mg IM ASDIRECTED PRN PRN Reason: Hypoglycemia Glucagon (Glucagon,Human Recombinant 1 Mg Vial) 1 mg IM ASDIRECTED PRN PRN Reason: Hypoglycemia Glucagon (Glucagon,Human Recombinant 1 Mg Vial) 1 mg IM ASDIRECTED PRN PRN Reason: Hypoglycemia Erythromycin Lactobionate 300 (mg/ Sodium Chloride) 100 mls @ 100 mls/hr IV Q6H [facility] Last Admin: 02/06/21 05:53 Dose: 100 mls/hr Documented by: Dextrose/Sodium Chloride (Dextrose 5%-1/2 Ns) 1,000 mls @ 50 mls/hr IV ASDIRECTED [facility] Last Infusion: 02/05/21 11:00 Dose: 10 mls/hr Documented by: Insulin Regular in 0.9 % NACL (Myxredlin In Ns 100 Unit/100 Ml) 100 mls @ 1 mls/hr IV TITRATE [facility]; Protocol Last Titration: 02/05/21 06:05 Dose: 0 mls/hr, 0 mls/hr Documented by: Insulin Aspart (Insulin Aspart 100 Units/Ml 3 Ml Pen) 0 unit SUBCUT QID@0730,1130,1700,2100 [facility]; Protocol Last Admin: 02/06/21 09:27 Dose: Not Given Documented by: Insulin Glargine (Insulin Glargine,Human Rec. Analog 100 Units/Ml 3 Ml Pen) 10 units SUBCUT BEDTIME [facility] Last Admin: 02/05/21 21:19 Dose: 10 units Documented by: Lorazepam (Lorazepam 2 Mg/Ml Sdv) 2 mg IVPUSH Q2H PRN PRN Reason: Agitation Metoclopramide HCl (Metoclopramide 10 Mg Tab) 5 mg PO Q6H [facility] Last Admin: 02/06/21 05:53 Dose: 5 mg Documented by: Ondansetron HCl (Ondansetron 4 Mg Tab.Dis) 4 mg PO Q6H PRN PRN Reason: Nausea Last Admin: 01/30/21 13:19 Dose: 4 mg Documented by: Ondansetron HCl (Ondansetron 4 Mg/2 Ml Sdv) 4 mg IVPUSH Q6H PRN PRN Reason: Nausea/Vomiting Last Admin: 02/05/21 00:23 Dose: 4 mg Documented by: Pantoprazole Sodium (Pantoprazole 40 Mg/10 Ml Syringe) 40 mg IVPUSH Q24H [facility] Last Admin: 02/05/21 16:26 Dose: 40 mg Documented by: Buprenorphine Hcl/Naloxone Hcl 1 Each Tab.Subl 8/2 MgPt Own 1 each PO TID PRN PRN Reason: WITHDRAWAL Last Admin: 02/05/21 07:56 Dose: 1 each Documented by: Sodium Chloride (Sodium Chloride 0.9% 10 Ml Syringe) 10 ml FLUSH ASDIRECTED PRN PRN Reason: Keep Vein Open Last Admin: 01/26/21 14:32 Dose: 10 ml Documented by: Sodium Chloride (Sodium Chloride 0.9% 2.5 Ml Syringe) 2.5 ml FLUSH ASDIRECTED PRN PRN Reason: Keep Vein Open Last Admin: 01/26/21 14:32 Dose: 2.5 ml Documented by: Discontinued Medications Diphenhydramine HCl (Diphenhydramine 50 Mg/Ml Sdv) 25 mg IVPUSH ONETIME ONE Stop: 01/26/21 14:08 Last Admin: 01/26/21 14:31 Dose: 25 mg Documented by: Diphenhydramine HCl (Diphenhydramine 25 Mg Cap) 25 mg PO ONETIME ONE Stop: 01/26/21 21:19 Last Admin: 01/26/21 21:48 Dose: 25 mg Documented by: Diphenhydramine HCl (Diphenhydramine 25 Mg Cap) 25 mg PO ONETIME ONE Stop: 01/28/21 10:01 Last Admin: 01/28/21 09:38 Dose: 25 mg Documented by: Diphenhydramine HCl (Diphenhydramine 50 Mg/Ml Sdv) 25 mg IVPUSH Q4H PRN PRN Reason: Itching Stop: 01/29/21 20:00 Last Admin: 01/29/21 10:32 Dose: 25 mg Documented by: Diphenhydramine HCl (Diphenhydramine 25 Mg Cap) 25 mg PO ONETIME ONE Stop: 01/30/21 04:09 Last Admin: 01/30/21 18:18 Dose: Not Given Documented by: Diphenhydramine HCl (Diphenhydramine 25 Mg Cap) 25 mg PO ONETIME ONE Stop: 01/30/21 18:16 Last Admin: 01/30/21 18:22 Dose: 25 mg Documented by: Hydromorphone HCl (Hydromorphone 1 Mg/Ml Syringe) 0.5 mg IVPUSH Q4H PRN PRN Reason: Pain Stop: 01/28/21 20:59 Last Admin: 01/28/21 06:32 Dose: 0.5 mg Documented by: Sodium Chloride (Normal Saline) 1,000 mls @ 999 mls/hr IV ASDIRECTED [facility] Last Admin: 01/26/21 14:32 Dose: 999 mls/hr Documented by: Sodium Chloride (Normal Saline) 1,000 mls @ 999 mls/hr IV ASDIRECTED [facility] Insulin Human Regular 100 unit (/ Sodium Chloride) 100 mls @ 6 mls/hr IV TITRATE [facility]; Protocol Lactated Ringer's (Ringers, Lactated) 1,000 mls @ 999 mls/hr IV ASDIRECTED [facility] Last Admin: 01/26/21 15:59 Dose: 999 mls/hr Documented by: Insulin Regular in 0.9 % NACL (100 unit/ Premix) 100 mls @ 6 mls/hr IV TITRATE [facility]; Protocol Last Titration: 01/29/21 09:38 Dose: 0 unit/hr, 0 mls/hr Documented by: Lactated Ringer's (Ringers, Lactated) 1,000 mls @ 150 mls/hr IV ASDIRECTED [facility] Last Infusion: 01/26/21 22:13 Dose: 0 mls/hr Documented by: Dextrose/Water (Dextrose 5% In Water) 1,000 mls @ 100 mls/hr IV ASDIRECTED [facility] Last Admin: 01/29/21 08:20 Dose: 100 mls/hr Documented by: Ceftriaxone Sodium/Dextrose 1 (gm/ Premix) 50 mls @ 100 mls/hr IV Q24H [facility] Stop: 02/01/21 23:00 Last Admin: 02/01/21 23:29 Dose: 100 mls/hr Documented by: Potassium Chloride (Kcl In Water 40 Meq/100 Ml) 100 mls @ 25 mls/hr IV ONETIME ONE Stop: 01/28/21 13:59 Last Admin: 01/28/21 09:54 Dose: 25 mls/hr Documented by: Sodium Chloride (Sodium Chloride 0.45%) 1,000 mls @ 75 mls/hr IV ASDIRECTED [facility] Last Infusion: 01/30/21 01:45 Dose: 0 mls/hr Documented by: Sodium Chloride (Sodium Chloride 0.45%) 500 mls @ 75 mls/hr IV ASDIRECTED [facility] Last Admin: 01/30/21 11:00 Dose: 75 mls/hr Documented by: Sodium Chloride (Normal Saline) 1,000 mls @ 500 mls/hr IV ASDIRECTED [facility] Stop: 02/02/21 15:29 Last Admin: 02/02/21 13:29 Dose: 500 mls/hr Documented by: Sodium Chloride (Normal Saline) 1,000 mls @ 250 mls/hr IV ASDIRECTED [facility] Stop: 02/04/21 19:29 Last Admin: 02/02/21 15:35 Dose: 250 mls/hr Documented by: Potassium Chloride/Sodium Chloride (1/2 Ns With 20 Meq Kcl) 1,000 mls @ 250 mls/hr IV ASDIRECTED [facility] Stop: 02/04/21 23:59 Last Admin: 02/03/21 08:08 Dose: 250 mls/hr Documented by: Magnesium Sulfate 2 gm/ Premix 50 mls @ 12.5 mls/hr IV ONETIME ONE Stop: 02/03/21 15:57 Last Admin: 02/03/21 13:05 Dose: 12.5 mls/hr Documented by: Sodium Chloride (Normal Saline) 1,000 mls @ 250 mls/hr IV ASDIRECTED [facility] Stop: 02/04/21 19:14 Last Infusion: 02/03/21 20:21 Dose: 150 mls/hr Documented by: Insulin Regular in 0.9 % NACL (Myxredlin In Ns 100 Unit/100 Ml) 100 mls @ 51.483 mls/hr IV TITRATE [facility]; Protocol Last Titration: 02/04/21 03:05 Dose: 1 units/kg/hr, 51.483 mls/hr Documented by: Potassium Chloride 40 meq/ (Premix) 100 mls @ 25 mls/hr IV ONETIME ONE Stop: 02/04/21 08:19 Last Admin: 02/04/21 04:59 Dose: 25 mls/hr Documented by: Potassium Chloride 20 meq/ (Premix) 50 mls @ 25 mls/hr IV ONETIME ONE Stop: 02/04/21 10:29 Last Admin: 02/04/21 08:47 Dose: 25 mls/hr Documented by: Potassium Chloride 20 meq/ (Premix) 50 mls @ 25 mls/hr IV ONETIME ONE Stop: 02/04/21 14:59 Last Admin: 02/04/21 12:56 Dose: 25 mls/hr Documented by: Potassium Chloride 40 meq/ (Premix) 100 mls @ 25 mls/hr IV ONETIME ONE Stop: 02/05/21 14:27 Last Admin: 02/05/21 10:55 Dose: 25 mls/hr Documented by: Insulin Aspart (Insulin Aspart 100 Units/Ml 10 Ml Vial) 10 unit SUBCUT STAT STA Stop: 01/26/21 15:00 Last Admin: 01/26/21 16:01 Dose: Not Given Documented by: Insulin Aspart (Insulin Aspart 100 Units/Ml 3 Ml Pen) 0 unit SUBCUT QIDACANDBED [facility]; Protocol Last Admin: 01/29/21 12:44 Dose: 8 unit Documented by: Insulin Aspart (Insulin Aspart 100 Units/Ml 3 Ml Pen) 0 unit SUBCUT Q4H [facility]; Protocol Last Admin: 02/03/21 11:24 Dose: 2 units Documented by: Insulin Aspart (Insulin Aspart 100 Units/Ml 3 Ml Pen) 0 unit SUBCUT QID [facility]; Protocol Last Admin: 02/03/21 12:58 Dose: Not Given Documented by: Insulin Aspart (Insulin Aspart 100 Units/Ml 3 Ml Pen) 0 unit SUBCUT TIDAC [facility]; Protocol Last Admin: 02/05/21 13:52 Dose: 3 units Documented by: Metoclopramide HCl (Metoclopramide 10 Mg/2 Ml Sdv) 10 mg IVPUSH ONETIME ONE Stop: 01/26/21 14:08 Last Admin: 01/26/21 14:31 Dose: 10 mg Documented by: Metoclopramide HCl (Metoclopramide 10 Mg Tab) 10 mg PO TID PRN PRN Reason: Nausea/Vomiting Last Admin: 02/02/21 03:10 Dose: 10 mg Documented by: Non-Formulary Medication (Buprenorphine Hcl/Naloxone Hcl) 3 tab SL TID PRN PRN Reason: Abdominal Pain Ondansetron HCl (Ondansetron 4 Mg/2 Ml Sdv) Confirm Administered Dose 4 mg .ROUTE .STK-MED ONE Stop: 01/26/21 20:50 Last Admin: 01/26/21 21:47 Dose: Not Given Documented by: Ondansetron HCl (Ondansetron 4 Mg/2 Ml Sdv) 4 mg IVPUSH Q4H PRN PRN Reason: Nausea/Vomiting Last Admin: 01/26/21 21:47 Dose: 4 mg Documented by: Pantoprazole Sodium (Pantoprazole 40 Mg/10 Ml Syringe) 40 mg IVPUSH NOW ONE Stop: 02/03/21 03:30 Last Admin: 02/03/21 03:40 Dose: 40 mg Documented by: Potassium Chloride (Potassium Chloride 20 Meq Tab.Er) 40 meq PO ONETIME ONE Stop: 01/28/21 08:40 Last Admin: 01/28/21 09:38 Dose: 40 meq Documented by: Prochlorperazine Edisylate (Prochlorperazine 10 Mg/2 Ml Sdv) 10 mg IM ONETIME ONE Stop: 02/03/21 03:29 Last Admin: 02/03/21 03:40 Dose: 10 mg Documented by:
== END 2021-02-06 10:50 | disposition home or self-care (01) | DRG 640 ==
LOC: MW.ED 13:54 → MW.ICU 15:22 → MW.MS 01-30 17:35 → MW.ICU 02-03 15:36 → MW.MS 02-05 13:48
PROVIDERS: ADMIT Internal Medicine; ATTEND Internal Medicine
DX: E87.0 Hyperosmolality and hypernatremia (principal); E10.10 Type 1 diabetes mellitus with ketoacidosis without coma; E87.1 Hypo-osmolality and hyponatremia; N30.01 Acute cystitis with hematuria; H54.7 Unspecified visual loss; E10.43 Type 1 diabetes mellitus with diabetic autonomic (poly)neuropathy; K58.9 Irritable bowel syndrome, unspecified; K31.84 Gastroparesis; F11.11 Opioid abuse, in remission; R33.9 Retention of urine, unspecified; F41.9 Anxiety disorder, unspecified; Z88.1 Allergy status to other antibiotic agents; Z91.013 Allergy to seafood; E86.0 Dehydration; Z79.899 Other long term (current) drug therapy; E87.5 Hyperkalemia; Z20.822 Contact with and (suspected) exposure to COVID-19; K21.9 Gastro-esophageal reflux disease without esophagitis; F32.5 Major depressive disorder, single episode, in full remission; N31.9 Neuromuscular dysfunction of bladder, unspecified; B96.20 Unspecified Escherichia coli [E. coli] as the cause of diseases classified elsewhere; Z79.4 Long term (current) use of insulin; Z87.19 Personal history of other diseases of the digestive system; Z87.448 Personal history of other diseases of urinary system; Z91.14 Patient's other noncompliance with medication regimen; Z87.440 Personal history of urinary (tract) infections; Z87.81 Personal history of (healed) traumatic fracture
CPT/HCPCS: 36415; 80053; 82009; 82803; 82947; 83690; 83735; 85025; 96374; 96375; 99285; J1200; J2765; J7030; 51701; 51798; 80048; 80061; 81001; 81003; 82330; 83036; 84100; 84132; 87086; 87088; 87186; A9270-GY; C9113; J0696; J0780; J1170; J1364; J1650; J1815; J1815-GY; J2405; J3475; J3480; J7042; J7060; J7120; U0002

== ENCOUNTER 2021-02-07 20:46 | Emergency (ER) | payer MEDICAID ==
[2021-02-07] MEDS ORDERED: Sodium Chloride 0.9% 2.5 ML Syringe FLUSH PRN (22:23)
[2021-02-07] MEDS ORDERED: Sodium Chloride 0.9% 10 ML Syringe FLUSH PRN (22:23)
[2021-02-07] MEDS ORDERED: diphenhydrAMINE 50 MG/ML SDV IVPUSH ONE (22:47)
[2021-02-07] MEDS ORDERED: Metoclopramide 10 MG/2 ML SDV IVPUSH ONE (22:47)
[2021-02-07] MEDS ORDERED: Sodium Chloride 0.9% 1,000 ML IV ONE (22:48)
--- NOTE | 2021-02-07 23:03 | EDM.PDOC ---
ED HPI GENERAL MEDICAL PROBLEM - General Chief Complaint: General Stated Complaint: POSSIBLE DEHYDRATION, DIABETIC Time Seen by Provider: 02/07/21 22:21 - History of Present Illness INITIAL COMMENTS - FREE TEXT/NARRATIVE: 25-year-old male well-known to this emergency department presenting with nausea vomiting abdominal pain pruritic rash. Patient has a history of recurrent presentation with these complaints. He has a history of medication noncompliance and recurrent presentations for DKA. He was admitted to this facility for several days due to nausea vomiting and DKA. He was discharged yesterday. Patient reports compliance with his insulin since then. States that this morning he developed again abdominal pain nausea and vomiting has been unable to tolerate oral medicine. No fevers no cough no shortness of breath or chest pain. No myalgias no weakness. Bilateral Abdominal Pain Score (Numeric/FACES): 8 - Related Data Allergies Allergy/AdvReac Type Severity Reaction Status Date / Time amoxicillin Allergy Mild Nausea and Verified 02/07/21 21:32 Vomiting seafood Allergy Severe Vomiting Uncoded 02/07/21 21:32 Home Meds: Home Meds Insulin Aspart [NovoLOG] 10 - 15 unit SUBCUT TIDAC 08/22/20 [History] Insulin Glarg,Human.Rec.Analog [Lantus Solostar] 15 units SUBCUT BID 08/22/20 [History] Buprenorphine HCl/Naloxone HCl [Buprenorphine-Nalox 8-2 mg Tab] 3 tab SL DAILY 09/15/20 [History] Sucralfate [Carafate] 1 gm PO QIDACANDBED #120 tab 09/19/20 [Rx] Ondansetron [Zofran ODT] 4 mg PO Q6H PRN #12 tab.dis 10/14/20 [Rx] Metoclopramide HCl [Reglan] 10 mg PO TID PRN #10 tablet 01/24/21 [Rx] Pantoprazole Sodium [Protonix] 40 mg PO DAILY #30 tablet. 01/25/21 [Rx] Erythromycin Base [Erythromycin] 250 mg PO TID #6 tablet 02/06/21 [Rx] Past Medical History - Past Health History Medical/Surgical History: Denies Medical/Surgical History HEENT History: Reports: Impaired Vision Other HEENT History: ear ache, broken and missing teeth, impaired vision in left eye Cardiovascular History: Reports: None Respiratory History: Reports: None Gastrointestinal History: Reports: GERD, GI Bleed, Irritable Bowel Syndrome Other Gastrointestinal History: gastroparesis, ulcer Genitourinary History: Reports: Hydronephrosis, Neurogenic Bladder, Pyelonephritis, Renal Calculus, Retention, Urinary, UTI, Recurrent, Other (See Below) Other Genitourinary History: hydronephrosis, neurogenic bladder Musculoskeletal History: Reports: Fracture Other Musculoskeletal History: Elbow long time ago Neurological History: Reports: None Psychiatric History: Reports: Anxiety, Depression Endocrine/Metabolic History: Reports: Diabetes, Type I Other Endocrine/Metabolic History: non-compliant to DM medications Insulin Pump Model and Prepper: None Hematologic History: Reports: None Immunologic History: Reports: None Oncologic (Cancer) History: Reports: None Dermatologic History: Reports: Other (See Below) Other Dermatologic History: dry itchy skin - Infectious Disease History Infectious Disease History: Reports: None - Past Surgical History Head Surgeries/Procedures: Reports: None HEENT Surgical History: Reports: None GI Surgical History: Reports: None Male Surgical History: Reports: None Endocrine Surgical History: Reports: None Musculoskeletal Surgical History: Reports: None Dermatological Surgical History: Reports: None Social & Family History - Family History Family Medical History: No Pertinent Family History OBGYN: Reports: Endocrine/Metabolic: Reports: Diabetes, Type I, Diabetes, type II - Tobacco Use Tobacco Use Status *Q: Never Tobacco User - Caffeine Use Caffeine Use: Reports: None Caffeine Use Comment: 2 per day - Recreational Drug Use Recreational Drug Use: No - Living Situation & Occupation Living situation: Reports: Single, with Family Occupation: Unemployed ED ROS GENERAL - Review of Systems Review Of Systems: See Below Free Text/Narrative/Comment: General: No fever. Skin: Per HPI Eyes: No vision problems. ENT: No sore throat. Neck: No neck stiffness. Respiratory: No shortness of breath. Cardiac: No chest pain. Gastrointestinal: Per HPI Urinary: No dysuria. Musculoskeletal: No myalgias/arthralgias. Neurologic: No headache. ED EXAM, GENERAL - Physical Exam Exam: See Below Free Text/Narrative:: General Appearance: No acute distress, appears comfortable Skin: Diffuse papular rash with size of less than 1 mm no surrounding erythema rashes across the bilateral upper extremities as well as the trunk HEENT: Normocephalic/atraumatic, sclera anicteric, mucous membranes dry Neck: Normal range of motion Chest and Lungs: Bilateral breath sounds, clear to auscultation Cardiovascular: Regular rate and rhythm Abdomen: Soft, non-tender Back: Normal Musculoskeletal: No edema or tenderness Neurologic: Awake, alert, no obvious deficits, moving all extremities Psychiatric: Appropriate, cooperative Course - Vital Signs Last Recorded V/S: Last Vital Signs Temp 98.4 F 02/07/21 21:33 Pulse 98 02/08/21 02:47 Resp 16 02/08/21 02:47 BP 124/82 02/08/21 02:47 Pulse Ox 98 02/08/21 02:47 - Orders/Labs/Meds Orders: Active Orders 24 hr Category Date Time Status Blood Glucose Check, Bedside [RC] ONETIME Care 02/07/21 22:24 Active Sodium Chloride 0.9% [Saline Flush] Med 02/07/21 22:23 Active 10 ml FLUSH ASDIRECTED PRN Sodium Chloride 0.9% [Saline Flush] Med 02/07/21 22:23 Active 2.5 ml FLUSH ASDIRECTED PRN Saline Lock Insert [OM.PC] Stat Oth 02/07/21 22:24 Ordered Medication Orders Sodium Chloride (Sodium Chloride 0.9% 10 Ml Syringe) 10 ml FLUSH ASDIRECTED PRN PRN Reason: Keep Vein Open Last Admin: 02/07/21 23:32 Dose: 10 ml Documented by: MAGDALENA Sodium Chloride (Sodium Chloride 0.9% 2.5 Ml Syringe) 2.5 ml FLUSH ASDIRECTED PRN PRN Reason: Keep Vein Open Last Admin: 02/07/21 23:32 Dose: 2.5 ml Documented by: MAGDALENA Labs: Laboratory Tests 02/07/21 02/07/21 02/08/21 Range/Units 21:30 23:11 01:22 WBC 3.42 L (4.0-11.0) K/uL RBC 4.17 L (4.50-5.90) M/uL Hgb 10.8 L (13.0-17.0) g/dL Hct 34.1 L (38.0-50.0) % MCV 81.8 (80.0-98.0) fL MCH 25.9 L (27.0-32.0) pg MCHC 31.7 (31.0-37.0) g/dL RDW Std Deviation 42.7 (28.0-62.0) fl RDW Coeff of Erika 16 H (11.0-15.0) % Plt Count 220 (150-400) K/uL MPV 9.60 (7.40-12.00) fL Neut % (Auto) 68.1 (48.0-80.0) % Lymph % (Auto) 28.7 (16.0-40.0) % [place] % (Auto) 2.6 (0.0-15.0) % Eos % (Auto) 0.3 (0.0-7.0) % Baso % (Auto) 0.3 (0.0-1.5) % Neut # (Auto) 2.3 (1.4-5.7) K/uL Lymph # (Auto) 1.0 (0.6-2.4) K/uL [place] # (Auto) 0.1 (0.0-0.8) K/uL Eos # (Auto) 0.0 (0.0-0.7) K/uL Baso # (Auto) 0.0 (0.0-0.1) K/uL Nucleated RBC % 0.0 /100WBC Nucleated RBCs # 0 K/uL VBG pH (7.31-7.41) VBG pCO2 (41-51) mmHG VBG pO2 mmHG VBG HCO3 (23-28) mEq/L VBG Total CO2 (24-29) mmol/L VBG Base Excess (-2.0-3.0) Sodium (136-148) mmol/L Potassium (3.5-5.1) mmol/L Chloride (98-107) mmol/L Carbon Dioxide (21.0-32.0) mmol/L BUN (7.0-18.0) mg/dL Creatinine (0.8-1.3) mg/dL Est Cr Clr Drug Dosing mL/min Estimated GFR (MDRD) ml/min Glucose (74-106) mg/dL POC Glucose 101 H 78 (70-99) mg/dL Calcium (8.5-10.1) mg/dL Total Bilirubin (0.2-1.0) mg/dL AST (15-37) IU/L ALT (14-63) IU/L Alkaline Phosphatase (46-116) U/L Total Protein (6.4-8.2) g/dL Albumin (3.4-5.0) g/dL Globulin (2.6-4.0) g/dL Albumin/Globulin Ratio (0.9-1.6) Lipase (73-393) U/L 02/08/21 02/08/21 Range/Units 01:22 01:47 WBC (4.0-11.0) K/uL RBC (4.50-5.90) M/uL Hgb (13.0-17.0) g/dL Hct (38.0-50.0) % MCV (80.0-98.0) fL MCH (27.0-32.0) pg MCHC (31.0-37.0) g/dL RDW Std Deviation (28.0-62.0) fl RDW Coeff of Erika (11.0-15.0) % Plt Count (150-400) K/uL MPV (7.40-12.00) fL Neut % (Auto) (48.0-80.0) % Lymph % (Auto) (16.0-40.0) % [place] % (Auto) (0.0-15.0) % Eos % (Auto) (0.0-7.0) % Baso % (Auto) (0.0-1.5) % Neut # (Auto) (1.4-5.7) K/uL Lymph # (Auto) (0.6-2.4) K/uL [place] # (Auto) (0.0-0.8) K/uL Eos # (Auto) (0.0-0.7) K/uL Baso # (Auto) (0.0-0.1) K/uL Nucleated RBC % /100WBC Nucleated RBCs # K/uL VBG pH 7.42 H (7.31-7.41) VBG pCO2 55 H (41-51) mmHG VBG pO2 32 mmHG VBG HCO3 36 H (23-28) mEq/L VBG Total CO2 33 H (24-29) mmol/L VBG Base Excess 9.5 H (-2.0-3.0) Sodium 148 (136-148) mmol/L Potassium 4.1 (3.5-5.1) mmol/L Chloride 107 (98-107) mmol/L Carbon Dioxide 34.9 H (21.0-32.0) mmol/L BUN 11 (7.0-18.0) mg/dL Creatinine 0.9 (0.8-1.3) mg/dL Est Cr Clr Drug Dosing 115.19 mL/min Estimated GFR (MDRD) > 60.0 ml/min Glucose 151 H (74-106) mg/dL POC Glucose (70-99) mg/dL Calcium 8.9 (8.5-10.1) mg/dL Total Bilirubin 0.2 (0.2-1.0) mg/dL AST 30 (15-37) IU/L ALT 32 (14-63) IU/L Alkaline Phosphatase 96 (46-116) U/L Total Protein 6.9 (6.4-8.2) g/dL Albumin 2.9 L (3.4-5.0) g/dL Globulin 4.0 (2.6-4.0) g/dL Albumin/Globulin Ratio 0.7 L (0.9-1.6) Lipase 28 L (73-393) U/L Meds: Medications Generic Name Dose Route Start Last Admin Trade Name Freq PRN Reason Stop Dose Admin Sodium Chloride 10 ml 02/07/21 22:23 02/07/21 23:32 Sodium Chloride 0.9% 10 Ml Syringe FLUSH 10 ml ASDIRECTED PRN Administration Keep Vein Open Sodium Chloride 2.5 ml 02/07/21 22:23 02/07/21 23:32 Sodium Chloride 0.9% 2.5 Ml Syringe FLUSH 2.5 ml ASDIRECTED PRN Administration Keep Vein Open Discontinued Medications Generic Name Dose Route Start Last Admin Trade Name Freq PRN Reason Stop Dose Admin Diphenhydramine HCl 25 mg 02/07/21 22:47 02/07/21 23:32 Diphenhydramine 50 Mg/Ml Sdv IVPUSH 02/07/21 22:48 25 mg ONETIME ONE Administration Sodium Chloride 1,000 mls @ 999 mls/hr 02/07/21 22:48 02/07/21 23:32 Normal Saline IV 02/07/21 23:48 999 mls/hr .Bolus ONE Administration Metoclopramide HCl 10 mg 02/07/21 22:47 02/07/21 23:32 Metoclopramide 10 Mg/2 Ml Sdv IVPUSH 02/07/21 22:48 10 mg ONETIME ONE Administration Morphine Sulfate 4 mg 02/08/21 00:59 02/08/21 01:14 Morphine 4 Mg/Ml Vial IVPUSH 02/08/21 01:00 4 mg ONETIME ONE Administration Departure - Departure Time of Disposition: 03:10 Disposition: Home, Self-Care 01 Condition: Good Clinical Impression: Gastroparesis - Discharge Information *PRESCRIPTION DRUG MONITORING PROGRAM REVIEWED*: Not Applicable *COPY OF PRESCRIPTION DRUG MONITORING REPORT IN PATIENT HANY: Not Applicable Instructions: Gastroparesis Referrals: Lonny Lomas DO [Primary Care Provider] - Forms: ED Department Discharge Additional Instructions: I encourage you to do your best to take your medications as prescribed. Please follow-up with your regular doctor. The following information is given to patients seen in the emergency department who are being discharged to home. This information is to outline your options for follow-up care. We provide all patients seen in our emergency department with a follow-up referral. The need for follow-up, as well as the timing and circumstances, are variable depending upon the specifics of your emergency department visit. If you don't have a primary care physician on staff, we will provide you with a referral. We always advise you to contact your personal physician following an emergency department visit to inform them of the circumstance of the visit and for follow-up with them and/or the need for any referrals to a consulting specialist. The emergency department will also refer you to a specialist when appropriate. This referral assures that you have the opportunity for follow-up care with a specialist. All of these measure are taken in an effort to provide you with optimal care, which includes your follow-up. Under all circumstances we always encourage you to contact your private phys ician who remains a resource for coordinating your care. When calling for follow-up care, please make the office aware that this follow-up is from your recent emergency room visit. If for any reason you are refused follow-up, please contact the [facility] Emergency Department at and asked to speak to the emergency department charge nurse. Sepsis Event Note (ED) - Evaluation Sepsis Screening Result: No Definite Risk - Focused Exam Vital Signs: Vital Signs Temp Pulse Resp BP Pulse Ox 02/08/21 02:47 98 16 124/82 98 12/30/21 01:37 101 H 15 118/79 99 02/08/21 00:28 107 H 16 132/24 L 100 02/07/21 23:41 96 15 127/86 100 02/07/21 22:34 103 H 16 120/91 H 99 02/07/21 21:33 98.4 F 108 H 15 124/90 100 - My Orders Last 24 Hours: My Active Orders 02/07/21 22:23 Sodium Chloride 0.9% [Saline Flush] 10 ml FLUSH ASDIRECTED PRN Sodium Chloride 0.9% [Saline Flush] 2.5 ml FLUSH ASDIRECTED PRN 02/07/21 22:24 Blood Glucose Check, Bedside [RC] ONETIME Saline Lock Insert [OM.PC] Stat - Assessment/Plan Last 24 Hours: My Active Orders 02/07/21 22:23 Sodium Chloride 0.9% [Saline Flush] 10 ml FLUSH ASDIRECTED PRN Sodium Chloride 0.9% [Saline Flush] 2.5 ml FLUSH ASDIRECTED PRN 02/07/21 22:24 Blood Glucose Check, Bedside [RC] ONETIME Saline Lock Insert [OM.PC] Stat Assessment:: 25-year-old male presenting with nausea vomiting and abdominal pain that is most consistent with his ongoing chronic gastroparesis. Patient with itching rash as well no signs of cellulitis no signs of abscess. Reglan and Benadryl be given for symptoms as well as IV fluid given his active vomiting and dry mucous membranes. Patient's Accu-Chek reveals a blood sugar of 101 consistent with insulin compliance. Labs pending as well. 0310: Labs are good. Patient symptoms have improved with treatment is tolerated p.o. is felt stable for discharge.
[2021-02-08] MEDS ORDERED: Morphine 4 MG/ML VIAL IVPUSH ONE (00:59)
[2021-02-08 01:53] LABS: BLOOD UREA NITROGEN,BUN 11 mg/dL (7.0-18.0); CARBON DIOXIDE,CO2 34.9 mmol/L (21.0-32.0); CHLORIDE,CL 107 mmol/L (98-107); GLUCOSE RANDOM 151 mg/dL (74-106); LIPASE 28 U/L (73-393); POTASSIUM,K 4.1 mmol/L (3.5-5.1); SODIUM,NA 148 mmol/L (136-148)
[2021-02-08 03:09] VITALS: BP 124/82; PULSE 98
== END 2021-02-08 03:20 | disposition home or self-care (01) ==
LOC: MW.ED 20:46
DX: E10.43 Type 1 diabetes mellitus with diabetic autonomic (poly)neuropathy (principal); E10.10 Type 1 diabetes mellitus with ketoacidosis without coma; K31.84 Gastroparesis; Z79.4 Long term (current) use of insulin; Z88.0 Allergy status to penicillin; Z91.013 Allergy to seafood
CPT/HCPCS: 36415; 80053; 82803; 82947; 83690; 85025; 96374; 96375; 99284-25; J1200; J2270; J2765; J7030

== ENCOUNTER 2021-02-19 10:24 | Emergency (ER) | payer MEDICAID ==
--- NOTE | 2021-02-19 11:05 | EDM.PDOC ---
ED HPI GENERAL MEDICAL PROBLEM - General Chief Complaint: Genitourinary Problem Stated Complaint: UTI Time Seen by Provider: 02/19/21 10:25 Source of Information: Reports: Patient History Limitations: Reports: No Limitations - History of Present Illness INITIAL COMMENTS - FREE TEXT/NARRATIVE: HISTORY AND PHYSICAL: History of present illness: Patient is a 25-year-old male who presents emergency room today with concern of possible urinary tract infection. Patient does have a frequent history of UTIs and states that he began feeling a burning with urination sensation 2 days ago. Patient states that due to neurogenic bladder, he does have to straight cath every other day. Patient states that he straight cath today and noticed some blood at the end of the catheter. Patient states that he continues to have burning with urination and is concerned that he again has another urinary tract infection. Patient states he has not taken anything for symptoms and denies any other symptoms or concerns. Patient denies fever, chills, chest pain, shortness of breath, or cough. Denies headache, neck stiff ness, change in vision, syncope, or near syncope. Denies nausea, vomiting, abdominal pain, diarrhea, constipation. Has not noted any blood in stool. Patient has been eating and drinking appropriately. Review of systems: As per history of present illness and below otherwise all systems reviewed and negative. Past medical history: As per history of present illness and as reviewed below otherwise noncontributory. Surgical history: As per history of present illness and as reviewed below otherwise noncontributory. Social history: See social history for further information Family history: As per history of present illness and as reviewed below otherwise noncont ributory. Physical exam: General: Patient is alert, oriented, and in no acute distress. Patient sitting comfortably on exam table. Vital stable and reviewed by me HEENT: Atraumatic, normocephalic, pupils equal and reactive bilaterally, negative for conjunctival pallor or scleral icterus, mucous membranes moist, throat clear, neck supple, nontender, trachea midline. No drooling or trismus noted. No meningeal signs. No hot potato voice noted. Lungs: Clear to auscultation, breath sounds equal bilaterally, chest nontender. Heart: S1S2, regular rate and rhythm without overt murmur Abdomen: Soft, nondistended, nontender. Negative for masses or hepatosplenomegaly. Negative for costovertebral tenderness. Pelvis: Stable nontender. Genitourinary: Deferred. Rectal: Deferred. Skin: Intact, warm, dry. No lesions or rashes noted. Extremities: Atraumatic, negative for cords or calf pain. Neurovascular unremarkable. Neuro: Awake, alert, oriented. Cranial nerves II through XII unremarkable. Cerebellum unremarkable. Motor and sensory unremarkable throughout. Exam nonfocal. Medical Decision Making: Strict return precautions thoroughly discussed with patient. Discussed the importance for follow-up with her primary care provider and his urologist. Voices understanding and is agreeable to plan of care. Denies any further questions or concerns at this time. Diagnostics: UA, G&C, urine culture Therapeutics: Rocephin Prescription: Keflex Impression: Urinary tract infection Plan: 1. Take medication as prescribed. You can alternate ibuprofen and Tylenol as directed for pain and discomfort. 2. Follow-up with a primary care provider and your urologist as discussed. Return to the ED as needed and as discussed. Definitive disposition and diagnosis as appropriate pending reevaluation and review of above. Lower Abdomen Pain Score (Numeric/FACES): 7 - Related Data Allergies Allergy/AdvReac Type Severity Reaction Status Date / Time amoxicillin Allergy Mild Nausea and Verified 02/19/21 10:28 Vomiting seafood Allergy Severe Vomiting Uncoded 02/19/21 10:28 Home Meds: Home Meds Insulin Aspart [NovoLOG] 10 - 15 unit SUBCUT TIDAC 08/22/20 [History] Insulin Glarg,Human.Rec.Analog [Lantus Solostar] 15 units SUBCUT BID 08/22/20 [History] Buprenorphine HCl/Naloxone HCl [Buprenorphine-Nalox 8-2 mg Tab] 3 tab SL DAILY 09/15/20 [History] Sucralfate [Carafate] 1 gm PO QIDACANDBED #120 tab 09/19/20 [Rx] Ondansetron [Zofran ODT] 4 mg PO Q6H PRN #12 tab.dis 10/14/20 [Rx] Metoclopramide HCl [Reglan] 10 mg PO TID PRN #10 tablet 01/24/21 [Rx] Pantoprazole Sodium [Protonix] 40 mg PO DAILY #30 tablet 01/25/21 [Rx] cephALEXin [Keflex] 500 mg PO Q8H 7 Days #21 cap 02/19/21 [Rx] Past Medical History - Past Health History Medical/Surgical History: Denies Medical/Surgical History HEENT History: Reports: Impaired Vision Other HEENT History: ear ache, broken and missing teeth, impaired vision in left eye Cardiovascular History: Reports: None Respiratory History: Reports: None Gastrointestinal History: Reports: GERD, GI Bleed, Irritable Bowel Syndrome Other Gastrointestinal History: gastroparesis, ulcer Genitourinary History: Reports: Hydronephrosis, Neurogenic Bladder, Pyelonephritis, Renal Calculus, Retention, Urinary, UTI, Recurrent, Other (See Below) Other Genitourinary History: hydronephrosis, neurogenic bladder Musculoskeletal History: Reports: Fracture Other Musculoskeletal History: Elbow long time ago Neurological History: Reports: None Psychiatric History: Reports: Anxiety, Depression Endocrine/Metabolic History: Reports: Diabetes, Type I Other Endocrine/Metabolic History: non-compliant to DM medications Insulin Pump Model and Negative Checker: None Hematologic History: Reports: None Immunologic History: Reports: None Oncologic (Cancer) History: Reports: None Dermatologic History: Reports: Other (See Below) Other Dermatologic History: dry itchy skin - Infectious Disease History Infectious Disease History: Reports: None - Past Surgical History Head Surgeries/Procedures: Reports: None HEENT Surgical History: Reports: None GI Surgical History: Reports: None Male Surgical History: Reports: None Endocrine Surgical History: Reports: None Musculoskeletal Surgical History: Reports: None Dermatological Surgical History: Reports: None Social & Family History - Family History Family Medical History: No Pertinent Family History OBGYN: Reports: Endocrine/Metabolic: Reports: Diabetes, Type I, Diabetes, type II - Tobacco Use Tobacco Use Status *Q: Former Tobacco User Used Tobacco, but Quit: Yes Month/Year Tobacco Last Used: 07/2020 - Caffeine Use Caffeine Use: Reports: None Caffeine Use Comment: 2 per day - Recreational Drug Use Recreational Drug Use: No - Living Situation & Occupation Living situation: Reports: Single, with Family Occupation: Unemployed ED ROS GENERAL - Review of Systems Review Of Systems: Comprehensive ROS is negative, except as noted in HPI. ED EXAM, GENERAL - Physical Exam Exam: See Below (see dictation) Course - Vital Signs Last Recorded V/S: Last Vital Signs Temp 97.4 F 02/19/21 10:31 Pulse 88 02/19/21 13:17 Resp 20 02/19/21 10:31 BP 118/56 L 02/19/21 13:17 Pulse Ox 98 02/19/21 10:31 - Orders/Labs/Meds Orders: Active Orders 24 hr Category Date Time Status CHLAMYDIA AND GONORRHEA BY TMA Stat Lab 02/19/21 10:30 Received CULTURE URINE [MREF] Stat Lab 02/19/21 10:30 Received Labs: Laboratory Tests 02/19/21 Range/Units 10:30 Urine Color YELLOW Urine Appearance SLT CLOUDY Urine pH 6.0 (5.0-8.0) Ur Specific [place] >= 1.030 (1.001-1.035) Urine Protein >=300 H (NEGATIVE) mg/dL Urine Glucose (UA) 500 H (NEGATIVE) mg/dL Urine Ketones NEGATIVE (NEGATIVE) mg/dL Urine Occult Blood LARGE H (NEGATIVE) Urine Nitrite POSITIVE H (NEGATIVE) Urine Bilirubin NEGATIVE (NEGATIVE) Urine Urobilinogen 0.2 (<2.0) EU/dL Ur Leukocyte Esterase TRACE H (NEGATIVE) Urine RBC 50-60 (0-2/HPF) Urine WBC 90-100 (0-5/HPF) Ur Epithelial Cells MODERATE (NONE-FEW) Urine Bacteria 4+ H (NEGATIVE) Meds: Medications Discontinued Medications Generic Name Dose Route Start Last Admin Trade Name Freq PRN Reason Stop Dose Admin Ceftriaxone Sodium 1 gm 02/19/21 12:51 02/19/21 13:08 Ceftriaxone 1 Gm Vial IM 02/19/21 12:52 1 gm ONETIME ONE Administration Departure - Departure Time of Disposition: 12:57 Disposition: Home, Self-Care 01 Clinical Impression: Urinary tract infection Qualifiers: Urinary tract infection type: acute cystitis Hematuria presence: with hematuria Qualified Code(s): N30.01 - Acute cystitis with hematuria - Discharge Information Prescriptions: cephALEXin [Keflex] 500 mg PO Q8H 7 Days #21 cap Instructions: Urinary Tract Infection, Adult, [id number] Referrals: Lonny Lomas DO [Primary Care Provider] - Forms: ED Department Discharge Additional Instructions: The following information is given to patients seen in the emergency department who are being discharged to home. This information is to outline your options for follow-up care. We provide all patients seen in our emergency department with a follow-up referral. The need for follow-up, as well as the timing and circumstances, are variable depending upon the specifics of your emergency department visit. If you don't have a primary care physician on staff, we will provide you with a referral. We always advise you to contact your personal physician following an emergency department visit to inform them of the circumstance of the visit and for follow-up with them and/or the need for any referrals to a consulting specialist. The emergency department will also refer you to a specialist when appropriate. This referral assures that you have the opportunity for follow-up care with a specialist. All of these measure are taken in an effort to provide you with optimal care, which includes your follow-up. Under all circumstances we always encourage you to contact your private physician who remains a resource for coordinating your care. When calling for follow-up care, please make the office aware that this follow-up is from your recent emergency room visit. If for any reason you are refused follow-up, please contact the [facility] Emergency Department at and asked to speak to the emergency department charge nurse. [facility] Primary Care [address] [place], [place] [id number] [place] [address] 1. Take medication as prescribed. Your prescription has been sent to [facility]. 2. You can alternate ibuprofen and Tylenol as directed for pain and discomfort. You can also take [id number] Azo as directed for symptomatic relief. 3. Follow-up with your primary care provider as discussed. Return to the ED as needed and as discussed. Sepsis Event Note (ED) - Focused Exam Vital Signs: Vital Signs Temp Pulse Resp BP Pulse Ox 02/19/21 13:17 88 118/56 L 02/19/21 10:31 97.4 F 102 H 20 142/94 H 98 - My Orders Last 24 Hours: My Active Orders 02/19/21 10:30 CHLAMYDIA AND GONORRHEA BY TMA Stat CULTURE URINE [MREF] Stat - Assessment/Plan Last 24 Hours: My Active Orders 02/19/21 10:30 CHLAMYDIA AND GONORRHEA BY TMA Stat CULTURE URINE [MREF] Stat
[2021-02-19] MEDS ORDERED: cefTRIAXone 1 GM Vial IM ONE (12:51)
[2021-02-19 13:19] VITALS: BP 118/56; PULSE 88
[2021-02-20 14:08] LABS: C.TRACHOMATIS BY TMA Negative (Negative); N.GONORRHOEAE BY TMA Negative (Negative)
== END 2021-02-19 13:21 | disposition home or self-care (01) ==
LOC: MW.ED 10:24
DX: N30.01 Acute cystitis with hematuria (principal); K21.9 Gastro-esophageal reflux disease without esophagitis; E10.9 Type 1 diabetes mellitus without complications; Z87.891 Personal history of nicotine dependence; Z88.0 Allergy status to penicillin; Z91.013 Allergy to seafood; Z79.899 Other long term (current) drug therapy
CPT/HCPCS: 81001; 87086; 87088; 87186; 87491; 87591; 96372; 99283; J0696

== ENCOUNTER 2021-03-14 17:28 | Emergency (ER) | payer MEDICAID, SELFPAY ==
[2021-03-14] MEDS ORDERED: Lactated Ringers 1,000 ML IV STA (17:54)
[2021-03-14] MEDS ORDERED: Metoclopramide 10 MG/2 ML SDV IVPUSH ONE (17:55)
[2021-03-14 19:28] LABS: BLOOD UREA NITROGEN,BUN 16 mg/dL (7.0-18.0); CARBON DIOXIDE,CO2 26.7 mmol/L (21.0-32.0); CHLORIDE,CL 108 mmol/L (98-107); GLUCOSE RANDOM 56 mg/dL (74-106); SODIUM,NA 144 mmol/L (136-148)
[2021-03-14] MEDS ORDERED: Sodium Chloride 0.9% 1,000 ML IV ONE (19:49)
[2021-03-14] MEDS ORDERED: Ondansetron 4 MG/2 ML SDV IVPUSH ONE (19:49)
[2021-03-14] MEDS ORDERED: diphenhydrAMINE 50 MG/ML SDV IVPUSH ONE (19:49)
[2021-03-14 22:09] VITALS: BP 132/94; PULSE 112
== END 2021-03-14 22:14 | disposition home or self-care (01) ==
LOC: MW.ED 17:28
DX: E10.43 Type 1 diabetes mellitus with diabetic autonomic (poly)neuropathy (principal); K31.84 Gastroparesis; R11.10 Vomiting, unspecified; E86.0 Dehydration; K21.9 Gastro-esophageal reflux disease without esophagitis; Z88.0 Allergy status to penicillin; Z91.013 Allergy to seafood; Z79.899 Other long term (current) drug therapy; Z20.822 Contact with and (suspected) exposure to COVID-19
CPT/HCPCS: 36415; 80053; 82803; 82947; 83735; 85025; 87635; 96374; 96375; 99284; J1200; J2405; J2765; J7030; J7120; U0002

== ENCOUNTER 2021-06-20 21:22 | Emergency (ER) | payer MEDICAID, SELFPAY ==
[2021-06-20] MEDS ORDERED: Clindamycin HCl 150 MG Cap PO STA (22:20)
[2021-06-20] MEDS ORDERED: Lidocaine 2% Viscous Solution 100 ML Bottle PO ONE (22:20)
[2021-06-20] MEDS ORDERED: Ketorolac 30 MG/ML SDV IM ONE (22:20)
[2021-06-20] MEDS ORDERED: Lidocaine 2% Viscous Solution 15 ML UD ONE (22:27)
[2021-06-20] MEDS ORDERED: Lidocaine 2% Viscous Solution 15 ML UD PO ONE (22:31)
[2021-06-20 22:50] VITALS: BP 130/90; PULSE 102
== END 2021-06-20 22:45 | disposition home or self-care (01) ==
LOC: MW.ED 21:22
DX: K04.7 Periapical abscess without sinus (principal); K02.9 Dental caries, unspecified; E10.43 Type 1 diabetes mellitus with diabetic autonomic (poly)neuropathy; K31.84 Gastroparesis; Z88.0 Allergy status to penicillin; Z91.030 Bee allergy status; Z79.4 Long term (current) use of insulin
CPT/HCPCS: 99282; 99283; A9270-GY; J1885

== ENCOUNTER 2021-07-17 16:01 | Emergency (ER) | payer MEDICAID ==
[2021-07-17] MEDS ORDERED: Sodium Chloride 0.9% 1,000 ML IV ONE (17:27)
[2021-07-17] MEDS ORDERED: Sodium Chloride 0.9% 10 ML Syringe FLUSH PRN (17:27)
[2021-07-17] MEDS ORDERED: Sodium Chloride 0.9% 2.5 ML Syringe FLUSH PRN (17:27)
[2021-07-17] MEDS ORDERED: Ondansetron 4 MG/2 ML SDV IVPUSH ONE (17:52)
[2021-07-17] MEDS ORDERED: diphenhydrAMINE 50 MG/ML SDV IVPUSH ONE (17:58)
[2021-07-17 18:19] LABS: BLOOD UREA NITROGEN,BUN 15 mg/dL (7.0-18.0); CARBON DIOXIDE,CO2 26.4 mmol/L (21.0-32.0); CHLORIDE,CL 110 mmol/L (98-107); GLUCOSE RANDOM 110 mg/dL (74-106); LIPASE 31 U/L (73-393); POTASSIUM,K 3.8 mmol/L (3.5-5.1); SODIUM,NA 143 mmol/L (136-148)
[2021-07-17] MEDS ORDERED: cefTRIAXone 1 GM in Sodium Chloride 0.9% 50 ML IV ONE (19:50)
[2021-07-17 20:06] VITALS: BP 121/74; PULSE 84
== END 2021-07-17 20:20 | disposition home or self-care (01) ==
LOC: MW.ED 16:01
DX: N30.01 Acute cystitis with hematuria (principal); D50.9 Iron deficiency anemia, unspecified; K21.9 Gastro-esophageal reflux disease without esophagitis; E10.9 Type 1 diabetes mellitus without complications; Z79.899 Other long term (current) drug therapy; Z88.0 Allergy status to penicillin; Z91.013 Allergy to seafood
CPT/HCPCS: 36415; 80053; 81001; 83690; 85025; 87086; 96361; 96365; 96375; 99284; J0696; J1200; J2405; J3490; J7030

== ENCOUNTER 2021-07-18 16:46 | Emergency (ER) | payer MEDICAID ==
[2021-07-18] MEDS ORDERED: Sodium Chloride 0.9% 2.5 ML Syringe FLUSH PRN (17:15)
[2021-07-18] MEDS ORDERED: Sodium Chloride 0.9% 10 ML Syringe FLUSH PRN (17:15)
[2021-07-18] MEDS ORDERED: Sodium Chloride 0.9% 1,000 ML IV ONE (17:21)
[2021-07-18] MEDS ORDERED: diphenhydrAMINE 50 MG/ML SDV IVPUSH ONE (17:21)
[2021-07-18] MEDS ORDERED: Ondansetron 4 MG/2 ML SDV IVPUSH ONE (17:21)
[2021-07-18] MEDS ORDERED: cefTRIAXone 1 GM in Sodium Chloride 0.9% 50 ML IV ONE (17:21)
[2021-07-18 18:11] LABS: BLOOD UREA NITROGEN,BUN 14 mg/dL (7.0-18.0); CARBON DIOXIDE,CO2 26.2 mmol/L (21.0-32.0); CHLORIDE,CL 112 mmol/L (98-107); GLUCOSE RANDOM 137 mg/dL (74-106); SODIUM,NA 144 mmol/L (136-148)
[2021-07-18] MEDS ORDERED: Iopamidol 755 MG/ML 500 ML Multipack Bottle IVPUSH STA (18:25)
[2021-07-18 21:14] VITALS: BP 122/86; PULSE 103
== END 2021-07-18 21:42 | disposition home or self-care (01) ==
LOC: MW.ED 16:46
DX: N30.01 Acute cystitis with hematuria (principal); K82.8 Other specified diseases of gallbladder; K21.9 Gastro-esophageal reflux disease without esophagitis; E10.9 Type 1 diabetes mellitus without complications; Z88.0 Allergy status to penicillin; Z91.013 Allergy to seafood; Z79.899 Other long term (current) drug therapy
CPT/HCPCS: 36415; 51798; 74177; 76705; 80053; 85025; 96365; 96375; 99284; J0696; J1200; J2405; J3490; J7030; Q9967

== ENCOUNTER 2021-08-17 17:24 | Inpatient (IN) | payer MEDICAID ==
[2021-08-17] MEDS ORDERED: Sodium Chloride 0.9% 2.5 ML Syringe FLUSH PRN (17:30)
[2021-08-17] MEDS ORDERED: Sodium Chloride 0.9% 10 ML Syringe FLUSH PRN (17:30)
[2021-08-17] MEDS ORDERED: Ondansetron 4 MG/2 ML SDV IVPUSH ONE (17:52)
[2021-08-17] MEDS ORDERED: diphenhydrAMINE 50 MG/ML SDV IVPUSH ONE ×2 (17:52→20:56)
[2021-08-17] MEDS ORDERED: Lactated Ringers 1,000 ML IV ONE (17:52)
[2021-08-17] MEDS ORDERED: Ketorolac 30 MG/ML SDV IVPUSH ONE (17:56)
[2021-08-17 19:08] LABS: CARBON DIOXIDE,CO2 28.6 mmol/L (21.0-32.0); POTASSIUM,K 4.4 mmol/L (3.5-5.1)
[2021-08-17] MEDS ORDERED: Sodium Chloride 0.9% 1,000 ML IV ONE (20:25)
[2021-08-17] MEDS ORDERED: Iopamidol 755 MG/ML 500 ML Multipack Bottle IVPUSH ONE (20:25)
[2021-08-17] MEDS ORDERED: cefTRIAXone 1 GM in Sodium Chloride 0.9% 50 ML IV ONE (20:26)
[2021-08-18] MEDS ORDERED: 50% Dextrose in Water 50 ML Syringe IVPUSH PRN (00:13)
[2021-08-18] MEDS ORDERED: Glucagon,Human Recombinant 1 MG Vial IM PRN (00:13)
[2021-08-18] MEDS ORDERED: Metoclopramide 10 MG Tab PO PRN (00:14)
[2021-08-18] MEDS ORDERED: Ondansetron 4 MG Tab.DIS PO PRN (00:14)
[2021-08-18] MEDS: Lactated Ringers 1,000 ML IV SCH ×3 (00:36→19:58)
[2021-08-18] MEDS: Insulin Aspart 100 Units/ML 3 ML Pen SUBCUT SCH ×4 (00:37→18:01)
[2021-08-18 06:36] LABS: CARBON DIOXIDE,CO2 26.7 mmol/L (21.0-32.0); POTASSIUM,K 3.9 mmol/L (3.5-5.1)
[2021-08-18] MEDS: Heparin Sodium 5,000 Units/ML Vial SUBCUT SCH ×3 (06:40→21:28)
[2021-08-18] MEDS: Pantoprazole 40 MG Tab.CR PO SCH (06:41)
[2021-08-18] MEDS: Sertraline 50 MG Tab PO SCH (08:20)
[2021-08-18] MEDS: cefTRIAXone 1 GM in Sodium Chloride 0.9% 50 ML IV SCH ×2 (08:20→20:06)
[2021-08-18] MEDS ORDERED: Non-Formulary Medication 1 Each (Insulin Glarg,Human.Rec.Analog 100 UNITS/ML Pen) SUBCUT SCH (09:00)
[2021-08-19] MEDS: Insulin Aspart 100 Units/ML 3 ML Pen SUBCUT SCH ×3 (00:20→13:03)
[2021-08-19] MEDS: Lactated Ringers 1,000 ML IV SCH (06:31)
[2021-08-19] MEDS: Heparin Sodium 5,000 Units/ML Vial SUBCUT SCH ×2 (06:31→14:55)
[2021-08-19] MEDS: Pantoprazole 40 MG Tab.CR PO SCH (06:32)
[2021-08-19 07:29] LABS: CARBON DIOXIDE,CO2 28.1 mmol/L (21.0-32.0); POTASSIUM,K 4.3 mmol/L (3.5-5.1)
[2021-08-19] MEDS: cefTRIAXone 1 GM in Sodium Chloride 0.9% 50 ML IV SCH (08:05)
[2021-08-19] MEDS: Sertraline 50 MG Tab PO SCH (08:05)
[2021-08-19 12:06] VITALS: BP 134/88; PULSE 81
== END 2021-08-19 14:55 | disposition home or self-care (01) | DRG 690 ==
LOC: MW.ED 17:24 → MW.MS 21:10
PROVIDERS: ADMIT Internal Medicine; ATTEND Internal Medicine
DX: N12 Tubulo-interstitial nephritis, not specified as acute or chronic (principal); N39.0 Urinary tract infection, site not specified; N31.9 Neuromuscular dysfunction of bladder, unspecified; K31.84 Gastroparesis; K21.9 Gastro-esophageal reflux disease without esophagitis; K58.9 Irritable bowel syndrome, unspecified; F41.9 Anxiety disorder, unspecified; Z20.822 Contact with and (suspected) exposure to COVID-19; F32.A Depression, unspecified; H54.7 Unspecified visual loss; Z88.1 Allergy status to other antibiotic agents; E10.43 Type 1 diabetes mellitus with diabetic autonomic (poly)neuropathy; D64.9 Anemia, unspecified; Z88.0 Allergy status to penicillin; Z91.013 Allergy to seafood; Z79.4 Long term (current) use of insulin; Z79.899 Other long term (current) drug therapy
CPT/HCPCS: 36415; 74177; 80053; 81001; 82947; 83605; 83690; 85025 ×2; 86850; 86900; 86901; 87040 ×2; 87086; J0696; J1200 ×2; J1885; J2405; J3490; J7030; J7120; Q9967; 51798; 80048; 87088; 87186; 96361; 96365; 96375; 96376; 99221; 99238; 99284; 99285-25; A9270-GY; J1644; J1815-GY; U0002

== ENCOUNTER 2021-08-20 18:09 | Emergency (ER) | payer MEDICAID ==
[2021-08-20] MEDS ORDERED: Sodium Chloride 0.9% 2.5 ML Syringe FLUSH PRN (18:15)
[2021-08-20] MEDS ORDERED: Sodium Chloride 0.9% 10 ML Syringe FLUSH PRN (18:15)
== END 2021-08-20 19:06 | disposition left against medical advice (07) ==
LOC: MW.ED 18:09
DX: Z53.21 Procedure and treatment not carried out due to patient leaving prior to being seen by health care provider (principal)

== ENCOUNTER 2021-08-20 21:04 | Inpatient (IN) | payer MEDICAID ==
[2021-08-20] MEDS ORDERED: Sodium Chloride 0.9% 2.5 ML Syringe FLUSH PRN (21:08)
[2021-08-20] MEDS ORDERED: Sodium Chloride 0.9% 10 ML Syringe FLUSH PRN (21:08)
[2021-08-20] MEDS ORDERED: Lactated Ringers 1,000 ML IV ONE (23:21)
[2021-08-20] MEDS ORDERED: Ondansetron 4 MG/2 ML SDV IVPUSH ONE (23:21)
[2021-08-20] MEDS ORDERED: diphenhydrAMINE 50 MG/ML SDV IVPUSH ONE (23:21)
[2021-08-20 23:46] LABS: CARBON DIOXIDE,CO2 26.8 mmol/L (21.0-32.0); POTASSIUM,K 4.4 mmol/L (3.5-5.1)
[2021-08-21] MEDS ORDERED: cefTRIAXone 1 GM in Sodium Chloride 0.9% 50 ML IV ONE (00:01)
[2021-08-21] MEDS ORDERED: Sodium Chloride 0.9% 1,000 ML IV ONE ×2 (00:32→02:40)
[2021-08-21] MEDS ORDERED: Ondansetron 4 MG/2 ML SDV IVPUSH ONE ×2 (01:18→02:40)
[2021-08-21] MEDS ORDERED: diphenhydrAMINE 50 MG/ML SDV IVPUSH ONE ×2 (01:18→05:50)
[2021-08-21] MEDS ORDERED: Ketorolac 30 MG/ML SDV IVPUSH ONE (03:02)
[2021-08-21] MEDS ORDERED: Lactated Ringers 1,000 ML IV SCH (06:00)
[2021-08-21] MEDS ORDERED: Acetaminophen 325 MG Tab PO PRN (06:06)
[2021-08-21] MEDS ORDERED: Ondansetron 4 MG/2 ML SDV IVPUSH PRN (06:07)
[2021-08-21] MEDS ORDERED: 50% Dextrose in Water 50 ML Syringe IVPUSH PRN (06:09)
[2021-08-21] MEDS ORDERED: Glucagon,Human Recombinant 1 MG Vial IM PRN (06:09)
[2021-08-21] MEDS: Pantoprazole 40 MG in Sodium Chloride 0.9% 10 ML IVPUSH SCH (06:26)
[2021-08-21] MEDS: Morphine 2 MG/ML SYRINGE IVPUSH PRN ×2 (06:36→11:47)
[2021-08-21] MEDS: Insulin Aspart 100 Units/ML 3 ML Pen SUBCUT SCH ×4 (07:18→23:57)
[2021-08-21] MEDS ORDERED: Sodium Chloride 0.9% 2.5 ML Syringe FLUSH PRN (07:50)
[2021-08-21] MEDS ORDERED: Sodium Chloride 0.9% 10 ML Syringe FLUSH PRN (07:50)
[2021-08-21] MEDS: Dextrose 5%-Lactated Ringers 1,000 ML IV SCH ×2 (08:11→17:30)
[2021-08-21] MEDS: SODIUM CHLORIDE 0.9% IV SCH ×2 (10:16→17:43)
[2021-08-21] MEDS: ERYTHROMYCIN LACTOBIONATE IV SCH ×2 (10:16→17:43)
[2021-08-21] MEDS ORDERED: Metoclopramide 5 MG Tab PO SCH (11:30)
[2021-08-21] MEDS: Metoclopramide 10 MG/2 ML SDV IVPUSH SCH ×2 (11:49→18:59)
[2021-08-21] MEDS: BUPRENORPHINE HCL PO SCH ×3 (12:20→23:58)
[2021-08-21] MEDS: NALOXONE HCL PO SCH ×3 (12:20→23:58)
[2021-08-21] MEDS: cefTRIAXone 1 GM in Sodium Chloride 0.9% 50 ML IV SCH (23:57)
[2021-08-22] MEDS: ERYTHROMYCIN LACTOBIONATE IV SCH ×4 (00:56→22:04)
[2021-08-22] MEDS: diphenhydrAMINE 50 MG/ML SDV IVPUSH PRN ×2 (00:56→08:35)
[2021-08-22] MEDS: SODIUM CHLORIDE 0.9% IV SCH ×4 (00:56→22:04)
[2021-08-22] MEDS: Metoclopramide 10 MG/2 ML SDV IVPUSH SCH ×4 (02:09→19:06)
[2021-08-22] MEDS: Dextrose 5%-Lactated Ringers 1,000 ML IV SCH (05:04)
[2021-08-22] MEDS: Pantoprazole 40 MG in Sodium Chloride 0.9% 10 ML IVPUSH SCH ×2 (06:09→17:46)
[2021-08-22] MEDS: Insulin Aspart 100 Units/ML 3 ML Pen SUBCUT SCH ×3 (06:09→17:50)
[2021-08-22] MEDS ORDERED: Lactated Ringers 1,000 ML IV SCH (08:00)
[2021-08-22 08:13] LABS: CARBON DIOXIDE,CO2 21.5 mmol/L (21.0-32.0); POTASSIUM,K 3.9 mmol/L (3.5-5.1)
[2021-08-22] MEDS: Lactated Ringers 1,000 ML IV SCH ×2 (08:29→19:06)
[2021-08-22] MEDS: BUPRENORPHINE HCL PO SCH ×3 (08:41→17:52)
[2021-08-22] MEDS: NALOXONE HCL PO SCH ×3 (08:41→17:52)
[2021-08-22] MEDS: Promethazine 25 MG/ML SDV IM PRN ×2 (10:42→17:52)
[2021-08-22] MEDS ORDERED: SODIUM CHLORIDE 0.9% IV SCH ×4 (12:00)
[2021-08-22] MEDS ORDERED: ERYTHROMYCIN LACTOBIONATE IV SCH ×4 (12:00)
[2021-08-22] MEDS ORDERED: Insulin Glargine,Hum.Rec.Anlog 100 UNIT/ML 3 ML Pen SUBCUT SCH (21:00)
[2021-08-23] MEDS: cefTRIAXone 1 GM in Sodium Chloride 0.9% 50 ML IV SCH (00:34)
[2021-08-23] MEDS: Insulin Aspart 100 Units/ML 3 ML Pen SUBCUT SCH ×2 (00:39→05:54)
[2021-08-23] MEDS: Promethazine 25 MG/ML SDV IM PRN ×2 (00:52→08:10)
[2021-08-23] MEDS: Lactated Ringers 1,000 ML IV SCH ×2 (01:49→08:59)
[2021-08-23] MEDS: Metoclopramide 10 MG/2 ML SDV IVPUSH SCH ×2 (03:21→09:55)
[2021-08-23] MEDS: NALOXONE HCL PO SCH ×2 (03:41→08:09)
[2021-08-23] MEDS: BUPRENORPHINE HCL PO SCH ×2 (03:41→08:09)
[2021-08-23] MEDS: Pantoprazole 40 MG in Sodium Chloride 0.9% 10 ML IVPUSH SCH (05:52)
[2021-08-23] MEDS: ERYTHROMYCIN LACTOBIONATE IV SCH (05:53)
[2021-08-23] MEDS: SODIUM CHLORIDE 0.9% IV SCH (05:53)
[2021-08-23 06:29] LABS: CARBON DIOXIDE,CO2 19.3 mmol/L (21.0-32.0); POTASSIUM,K 4.2 mmol/L (3.5-5.1)
[2021-08-23] MEDS ORDERED: Lactated Ringers 1,000 ML IV ONE (06:33)
[2021-08-23 07:33] VITALS: BP 135/92; PULSE 96
[2021-08-23] MEDS ORDERED: Ondansetron 4 MG/2 ML SDV IVPUSH PRN (08:07)
[2021-08-23] MEDS ORDERED: Lactated Ringers 1,000 ML IV SCH (08:15)
== END 2021-08-23 10:15 | DRG 74 ==
LOC: MW.ED 21:04 → MW.MS 08-21 03:36
PROVIDERS: ADMIT Student in an Organized Health Care Education/Training Program; ATTEND Student in an Organized Health Care Education/Training Program
DX: E10.43 Type 1 diabetes mellitus with diabetic autonomic (poly)neuropathy (principal); F11.20 Opioid dependence, uncomplicated; N12 Tubulo-interstitial nephritis, not specified as acute or chronic; N39.0 Urinary tract infection, site not specified; N17.9 Acute kidney failure, unspecified; K58.9 Irritable bowel syndrome, unspecified; K31.84 Gastroparesis; N31.9 Neuromuscular dysfunction of bladder, unspecified; E10.65 Type 1 diabetes mellitus with hyperglycemia; E10.40 Type 1 diabetes mellitus with diabetic neuropathy, unspecified; Z79.4 Long term (current) use of insulin; R33.9 Retention of urine, unspecified; Z20.822 Contact with and (suspected) exposure to COVID-19; H54.7 Unspecified visual loss; K21.9 Gastro-esophageal reflux disease without esophagitis; F41.9 Anxiety disorder, unspecified; F32.A Depression, unspecified; Z91.19 Patient's noncompliance with other medical treatment and regimen; Z87.448 Personal history of other diseases of urinary system; Z79.899 Other long term (current) drug therapy; Z87.440 Personal history of urinary (tract) infections; Z86.19 Personal history of other infectious and parasitic diseases; Z88.1 Allergy status to other antibiotic agents; Z91.013 Allergy to seafood; B96.20 Unspecified Escherichia coli [E. coli] as the cause of diseases classified elsewhere
CPT/HCPCS: 36415; 80053; 82947; 83690; 85025; 87635; 96361; 96374; 96375; 96376; 99284; J0696; J1200 ×2; J1885; J2405 ×3; J3490; J7030 ×2; J7120; 51702; 80048; 81001; 83735; A9270-GY; C9113; J1364; J1815-GY; J2270; J2550; J2765; J7121; U0002

== ENCOUNTER 2021-09-19 16:37 | Emergency (ER) | payer MEDICAID ==
[2021-09-19] MEDS ORDERED: Ondansetron 4 MG/2 ML SDV ONE (16:59)
[2021-09-19 17:06] VITALS: BP 121/84
[2021-09-19] MEDS ORDERED: Sodium Chloride 0.9% 1,000 ML IV ONE (17:06)
[2021-09-19] MEDS ORDERED: Sodium Chloride 0.9% 2.5 ML Syringe FLUSH PRN (17:06)
[2021-09-19] MEDS ORDERED: Sodium Chloride 0.9% 10 ML Syringe FLUSH PRN (17:06)
[2021-09-19] MEDS ORDERED: Ondansetron 4 MG/2 ML SDV IVPUSH ONE (17:10)
[2021-09-19] MEDS ORDERED: 50% Dextrose in Water 50 ML Syringe IVPUSH ONE (17:13)
[2021-09-19 17:41] LABS: CARBON DIOXIDE,CO2 29.9 mmol/L (21.0-32.0); POTASSIUM,K 4.2 mmol/L (3.5-5.1)
[2021-09-19] MEDS ORDERED: diphenhydrAMINE 50 MG/ML SDV IVPUSH ONE (17:46)
[2021-09-19 19:37] VITALS: PULSE 92
== END 2021-09-19 19:37 | disposition home or self-care (01) ==
LOC: MW.ED 16:37
DX: R11.2 Nausea with vomiting, unspecified (principal); E10.43 Type 1 diabetes mellitus with diabetic autonomic (poly)neuropathy; K31.84 Gastroparesis; Z20.822 Contact with and (suspected) exposure to COVID-19; Z88.0 Allergy status to penicillin; Z91.013 Allergy to seafood
CPT/HCPCS: 36415; 80053; 83605; 83690; 85025; 87635; 96361; 96374; 96375; 99284; J1200; J2405; J3490; J7030; U0002

== ENCOUNTER 2021-12-01 19:13 | Emergency (ER) | payer MEDICAID ==
[2021-12-01] MEDS ORDERED: Sodium Chloride 0.9% 1,000 ML IV ONE ×2 (21:34)
[2021-12-01] MEDS ORDERED: Ondansetron 4 MG/2 ML SDV IVPUSH ONE (22:19)
[2021-12-01] MEDS ORDERED: diphenhydrAMINE 50 MG/ML SDV IVPUSH ONE (22:23)
[2021-12-01 22:44] LABS: CARBON DIOXIDE,CO2 25.5 mmol/L (21.0-32.0); POTASSIUM,K 5.7 mmol/L (3.5-5.1)
[2021-12-01] MEDS ORDERED: Insulin Regular, Human 100 Units/ML 10 ML Vial IVPUSH ONE (23:13)
[2021-12-01] MEDS ORDERED: Glucagon,Human Recombinant 1 MG Vial IM PRN (23:13)
[2021-12-01] MEDS ORDERED: 50% Dextrose in Water 50 ML Syringe IVPUSH PRN (23:13)
[2021-12-02 01:40] LABS: CARBON DIOXIDE,CO2 25.6 mmol/L (21.0-32.0); POTASSIUM,K 4.8 mmol/L (3.5-5.1)
[2021-12-02 02:08] VITALS: BP 160/100; PULSE 97
== END 2021-12-02 02:09 | disposition home or self-care (01) ==
LOC: MW.ED 19:13
DX: R11.2 Nausea with vomiting, unspecified (principal); E10.65 Type 1 diabetes mellitus with hyperglycemia; E86.0 Dehydration; Z88.0 Allergy status to penicillin; Z91.013 Allergy to seafood; Z79.4 Long term (current) use of insulin; Z79.899 Other long term (current) drug therapy; Z20.822 Contact with and (suspected) exposure to COVID-19
CPT/HCPCS: 36415; 80048; 80053; 81001; 82009; 82803; 83690; 85025; 87635; 96361; 96374; 96375; 99284; J1200; J1815; J2405; J7030; U0002

== ENCOUNTER 2022-01-01 17:31 | Emergency (ER) | payer MEDICAID ==
[2022-01-01 18:27] VITALS: BP 135/89; PULSE 97
[2022-01-01] MEDS ORDERED: Ketorolac 60 MG/2 ML SDV IM ONE (18:43)
== END 2022-01-01 19:55 | disposition home or self-care (01) ==
LOC: MW.ED 17:31
DX: S62.336A Displaced fracture of neck of fifth metacarpal bone, right hand, initial encounter for closed fracture (principal); E10.9 Type 1 diabetes mellitus without complications; Z88.0 Allergy status to penicillin; Z91.013 Allergy to seafood; Z79.4 Long term (current) use of insulin; W22.8XXA Striking against or struck by other objects, initial encounter
CPT/HCPCS: 29125; 73130; 96372; 99283; J1885

== ENCOUNTER 2022-04-14 22:13 | Emergency (ER) | payer MEDICAID ==
[2022-04-15] MEDS ORDERED: diphenhydrAMINE 50 MG/ML SDV IVPUSH ONE (02:28)
[2022-04-15] MEDS ORDERED: Sodium Chloride 0.9% 2.5 ML Syringe FLUSH PRN (02:28)
[2022-04-15] MEDS ORDERED: Prochlorperazine 10 MG/2 ML SDV IVPUSH ONE (02:28)
[2022-04-15] MEDS ORDERED: Sodium Chloride 0.9% 10 ML Syringe FLUSH PRN (02:28)
[2022-04-15] MEDS ORDERED: HYDROmorphone 1 MG/ML Syringe IVPUSH ONE (02:28)
[2022-04-15] MEDS ORDERED: Sodium Chloride 0.9% 1,000 ML IV ONE (02:28)
[2022-04-15 03:08] LABS: BLOOD UREA NITROGEN,BUN 19 mg/dL (7.0-18.0); CARBON DIOXIDE,CO2 25.5 mmol/L (21.0-32.0); CHLORIDE,CL 106 mmol/L (98-107); GLUCOSE RANDOM 437 mg/dL (74-106); LIPASE 49 U/L (73-393); POTASSIUM,K 5.4 mmol/L (3.5-5.1); SODIUM,NA 140 mmol/L (136-148)
[2022-04-15 03:16] LABS: ESTIMATED GFR 57 mL/min (>60)
[2022-04-15] MEDS ORDERED: Glucagon,Human Recombinant 1 MG Vial IM PRN (05:12)
[2022-04-15] MEDS ORDERED: Insulin Regular, Human 100 Units/ML 10 ML Vial SUBCUT ONE (05:12)
[2022-04-15] MEDS ORDERED: 50% Dextrose in Water 50 ML Syringe IVPUSH PRN (05:12)
[2022-04-15 05:48] VITALS: BP 131/87; PULSE 79
== END 2022-04-15 05:48 | disposition home or self-care (01) ==
LOC: MW.ED 22:13
DX: E10.65 Type 1 diabetes mellitus with hyperglycemia (principal); N28.9 Disorder of kidney and ureter, unspecified; E86.0 Dehydration; K21.9 Gastro-esophageal reflux disease without esophagitis; E10.43 Type 1 diabetes mellitus with diabetic autonomic (poly)neuropathy; K31.84 Gastroparesis; Z88.0 Allergy status to penicillin; Z91.013 Allergy to seafood; Z79.899 Other long term (current) drug therapy; Z79.4 Long term (current) use of insulin
CPT/HCPCS: 36415; 71045; 80053; 80307; 82803; 82947; 83605; 83690; 83735; 84100; 84484; 85025; 87040; 93005; 96361; 96374; 96375; 99284; J0780; J1170; J1200; J3490; J7030; J1815-GY

== ENCOUNTER 2022-04-17 19:14 | Emergency (ER) | payer MEDICAID ==
[2022-04-17 21:10] LABS: POTASSIUM,K 4.4 mmol/L (3.5-5.1)
[2022-04-17] MEDS ORDERED: diphenhydrAMINE 50 MG/ML SDV IVPUSH ONE (21:43)
[2022-04-17 23:22] VITALS: BP 108/70; PULSE 87
== END 2022-04-17 22:43 | disposition home or self-care (01) ==
LOC: MW.ED 19:14
DX: E10.9 Type 1 diabetes mellitus without complications (principal); R11.2 Nausea with vomiting, unspecified; K21.9 Gastro-esophageal reflux disease without esophagitis; Z88.0 Allergy status to penicillin; Z91.013 Allergy to seafood; Z79.899 Other long term (current) drug therapy
CPT/HCPCS: 36415; 80048; 82803; 82947; 96374; 96375; 99284; J1200; J1790

== ENCOUNTER 2022-04-22 16:03 | Emergency (ER) | payer MEDICAID ==
[2022-04-22 17:52] LABS: CORONAVIRUS COVID-19 NAA NEGATIVE (NEGATIVE); INFLUENZA A NAA NEGATIVE (NEGATIVE); INFLUENZA B NAA NEGATIVE (NEGATIVE)
[2022-04-22 20:02] VITALS: BP 146/94; PULSE 95
== END 2022-04-22 20:00 | disposition home or self-care (01) ==
LOC: MW.ED 16:03
DX: R11.2 Nausea with vomiting, unspecified (principal); K21.9 Gastro-esophageal reflux disease without esophagitis; E10.43 Type 1 diabetes mellitus with diabetic autonomic (poly)neuropathy; K31.84 Gastroparesis; Z88.0 Allergy status to penicillin; Z91.013 Allergy to seafood; Z79.899 Other long term (current) drug therapy; Z20.822 Contact with and (suspected) exposure to COVID-19
CPT/HCPCS: 0240U; 82947; 99284; 99283

== ENCOUNTER 2022-05-31 11:32 | Emergency (ER) | payer MEDICAID ==
[2022-05-31] MEDS ORDERED: Sodium Chloride 0.9% 10 ML Syringe FLUSH PRN (11:34)
[2022-05-31] MEDS ORDERED: Sodium Chloride 0.9% 2.5 ML Syringe FLUSH PRN (11:34)
[2022-05-31] MEDS ORDERED: Sodium Chloride 0.9% 1,000 ML IV ONE (11:37)
[2022-05-31] MEDS ORDERED: diphenhydrAMINE 50 MG/ML SDV IVPUSH ONE (11:44)
[2022-05-31] MEDS ORDERED: Ondansetron 4 MG/2 ML SDV IVPUSH ONE (11:44)
[2022-05-31 12:35] LABS: CARBON DIOXIDE,CO2 25.7 mmol/L (21.0-32.0)
[2022-05-31] MEDS ORDERED: cefTRIAXone 1 GM in Sodium Chloride 0.9% 50 ML IV ONE (12:56)
[2022-05-31 13:29] VITALS: BP 130/85; PULSE 89
== END 2022-05-31 13:45 | disposition home or self-care (01) ==
LOC: MW.ED 11:32
DX: N30.00 Acute cystitis without hematuria (principal); K29.50 Unspecified chronic gastritis without bleeding; E10.43 Type 1 diabetes mellitus with diabetic autonomic (poly)neuropathy; K31.84 Gastroparesis; Z88.0 Allergy status to penicillin; Z91.013 Allergy to seafood
CPT/HCPCS: 36415; 80053; 81001; 82009; 82803; 82947; 83605; 83690; 83735; 85025; 96361; 96365; 96375; 99284; J0696; J1200; J2405; J3490; J7030

== ENCOUNTER 2022-06-01 23:39 | Emergency (ER) | payer MEDICAID ==
[2022-06-02] MEDS ORDERED: Metoclopramide 10 MG/2 ML SDV IVPUSH ONE (00:50)
[2022-06-02] MEDS ORDERED: Sodium Chloride 0.9% 10 ML Syringe FLUSH PRN (00:50)
[2022-06-02] MEDS ORDERED: diphenhydrAMINE 50 MG/ML SDV IVPUSH ONE (00:50)
[2022-06-02] MEDS ORDERED: Sodium Chloride 0.9% 1,000 ML IV ONE (00:50)
[2022-06-02] MEDS ORDERED: Sodium Chloride 0.9% 2.5 ML Syringe FLUSH PRN (00:50)
[2022-06-02 02:00] LABS: CARBON DIOXIDE,CO2 21.7 mmol/L (21.0-32.0); POTASSIUM,K 5.1 mmol/L (3.5-5.1)
[2022-06-02] MEDS ORDERED: 50% Dextrose in Water 50 ML Syringe IVPUSH PRN (03:17)
[2022-06-02] MEDS ORDERED: Glucagon,Human Recombinant 1 MG Vial IM PRN (03:17)
[2022-06-02] MEDS ORDERED: Insulin Aspart 100 Units/ML 3 ML Pen SUBCUT STA (03:17)
[2022-06-02 03:39] VITALS: BP 140/90; PULSE 90
== END 2022-06-02 03:37 | disposition home or self-care (01) ==
LOC: MW.ED 23:39
DX: E10.43 Type 1 diabetes mellitus with diabetic autonomic (poly)neuropathy (principal); K31.84 Gastroparesis; R11.2 Nausea with vomiting, unspecified; Z88.0 Allergy status to penicillin; Z91.013 Allergy to seafood
CPT/HCPCS: 36415; 80053; 82009; 82803; 82947; 83735; 85025; 96361; 96374; 96375; 99284; J1200; J1815; J2765; J3490; J7030; 99283

== ENCOUNTER 2022-07-17 14:44 | Emergency (ER) | payer MEDICAID ==
[2022-07-17 15:51] VITALS: BP 118/78; PULSE 94
[2022-07-17 16:33] LABS: BILIRUBIN,URINE NEGATIVE (NEGATIVE); COLOR,URINE YELLOW; GLUCOSE,URINE >=1000 mg/dL (NEGATIVE); KETONES,URINE NEGATIVE (NEGATIVE); LEUKOCYTE ESTERASE,URINE SMALL (NEGATIVE); NITRITE,URINE POSITIVE (NEGATIVE); OCCULT BLOOD,URINE LARGE (NEGATIVE); PH,URINE 5.5 (5.0-8.0); PROTEIN,URINE >=300 mg/dL (NEGATIVE); UROBILINOGEN,URINE 0.2 EU/dL (<2.0)
[2022-07-17 16:49] LABS: APPEARANCE,URINE CLOUDY; RBC,URINE 80-90 (0-2/HPF)
[2022-07-17 16:50] LABS: BACTERIA,URINE FEW (NEGATIVE); EPITHELIAL CELLS,URINE OCCASIONAL (NONE-FEW); WBC,URINE 70-80 (0-5/HPF)
== END 2022-07-17 17:13 | disposition home or self-care (01) ==
LOC: MW.ED 14:44
DX: N39.0 Urinary tract infection, site not specified (principal); E10.9 Type 1 diabetes mellitus without complications; Z88.0 Allergy status to penicillin; Z91.013 Allergy to seafood; Z79.899 Other long term (current) drug therapy
CPT/HCPCS: 81001; 87086; 87088; 87186; 99283

== ENCOUNTER 2022-07-31 10:57 | Emergency (ER) | payer MEDICAID ==
[2022-07-31] MEDS ORDERED: Sodium Chloride 0.9% 10 ML Syringe FLUSH PRN (11:09)
[2022-07-31] MEDS ORDERED: 50% Dextrose in Water 50 ML Syringe IVPUSH ONE (11:09)
[2022-07-31] MEDS ORDERED: Sodium Chloride 0.9% 2.5 ML Syringe FLUSH PRN (11:09)
[2022-07-31] MEDS ORDERED: Ondansetron 4 MG/2 ML SDV IVPUSH ONE (11:10)
[2022-07-31] MEDS ORDERED: Sodium Chloride 0.9% 1,000 ML IV ONE ×2 (11:10→12:24)
[2022-07-31 11:32] LABS: BASE EXCESS VENOUS -4.8 (-2.0-3.0); PH,VENOUS 7.26 (7.31-7.41)
[2022-07-31 11:34] LABS: BASOPHILS PERCENT AUTO 0.1 % (0.0-1.5); EOSINOPHILS ABSOLUTE AUTO 0.2 K/uL (0.0-0.7); EOSINOPHILS PERCENT AUTO 1.9 % (0.0-7.0); HEMATOCRIT 30.8 % (38.0-50.0); HEMOGLOBIN 9.8 g/dL (13.0-17.0); LYMPHOCYTES PERCENT AUTO 12.6 % (16.0-40.0); MEAN CORPUSCULAR HEMOGLOBIN 26.3 pg (27.0-32.0); MEAN CORPUSCULAR HGB CONC 31.8 g/dL (31.0-37.0); MEAN CORPUSCULAR VOLUME 82.8 fL (80.0-98.0); MONOCYTES ABSOLUTE AUTO 0.3 K/uL (0.0-0.8); MONOCYTES PERCENT AUTO 4.4 % (0.0-15.0); NEUTROPHILS ABSOLUTE AUTO 6.3 K/uL (1.4-5.7); NRBC ABSOLUTE 0 K/uL; PLATELET COUNT,PLT 241 K/uL (150-400); RED BLOOD CELL COUNT 3.72 M/uL (4.50-5.90); WHITE BLOOD CELL COUNT,WBC 7.77 K/uL (4.0-11.0)
[2022-07-31] MEDS ORDERED: diphenhydrAMINE 50 MG/ML SDV IVPUSH ONE (11:50)
[2022-07-31 12:00] LABS: A/G RATIO 0.6 (0.9-1.6); ALBUMIN 2.6 g/dL (3.4-5.0); BILIRUBIN TOTAL 0.2 mg/dL (0.2-1.0); CALCIUM 8.9 mg/dL (8.5-10.1); CARBON DIOXIDE,CO2 22.1 mmol/L (21.0-32.0); CREATININE 1.9 mg/dL (0.8-1.3); EST CRCL DRUG DOSING (CG) 48.85 mL/min; MAGNESIUM 2.1 mg/dL (1.8-2.4); POTASSIUM,K 4.2 mmol/L (3.5-5.1); PROTEIN TOTAL,TP 7.1 g/dL (6.4-8.2)
[2022-07-31 12:07] LABS: LACTIC ACID 0.9 mmol/L (0.4-2.0)
[2022-07-31 14:02] LABS: BILIRUBIN,URINE NEGATIVE (NEGATIVE); COLOR,URINE YELLOW; GLUCOSE,URINE 250 mg/dL (NEGATIVE); KETONES,URINE TRACE mg/dL (NEGATIVE); LEUKOCYTE ESTERASE,URINE LARGE (NEGATIVE); NITRITE,URINE NEGATIVE (NEGATIVE); OCCULT BLOOD,URINE MODERATE (NEGATIVE); PROTEIN,URINE 100 mg/dL (NEGATIVE); UROBILINOGEN,URINE 0.2 EU/dL (<2.0)
[2022-07-31 14:03] LABS: APPEARANCE,URINE CLOUDY
[2022-07-31 14:15] LABS: RBC,URINE 20-30 (0-2/HPF)
[2022-07-31 14:16] LABS: BACTERIA,URINE MANY (NEGATIVE); EPITHELIAL CELLS,URINE NOT SEEN (NONE-FEW); WBC,URINE >100 (0-5/HPF)
[2022-07-31] MEDS ORDERED: cefTRIAXone 1 GM in Sodium Chloride 0.9% 50 ML IV ONE (14:25)
[2022-07-31 16:11] VITALS: BP 112/74; PULSE 97
== END 2022-07-31 15:41 | disposition home or self-care (01) ==
LOC: MW.ED 10:57
DX: K52.9 Noninfective gastroenteritis and colitis, unspecified (principal); E11.649 Type 2 diabetes mellitus with hypoglycemia without coma; N30.00 Acute cystitis without hematuria; Z88.0 Allergy status to penicillin; Z91.013 Allergy to seafood; Z79.899 Other long term (current) drug therapy
CPT/HCPCS: 36415; 80053; 81001; 82009; 82803; 82947; 83605; 83690; 83735; 85025; 87086; 87088; 87186; 96361; 96365; 96375; 99284; J0696; J1200; J2405; J3490; J7030

== ENCOUNTER 2022-10-26 22:30 | Emergency (ER) | payer MEDICAID ==
[2022-10-27] MEDS ORDERED: Clindamycin HCl 150 MG Cap PO ONE (00:38)
[2022-10-27 00:47] VITALS: BP 100/60; PULSE 86
== END 2022-10-27 00:45 | disposition home or self-care (01) ==
LOC: MW.ED 22:30
DX: K02.9 Dental caries, unspecified (principal); K21.9 Gastro-esophageal reflux disease without esophagitis; E10.40 Type 1 diabetes mellitus with diabetic neuropathy, unspecified; Z88.0 Allergy status to penicillin; Z91.013 Allergy to seafood; Z79.899 Other long term (current) drug therapy; Z20.822 Contact with and (suspected) exposure to COVID-19
CPT/HCPCS: 87635; 99283; A9270; 99282; U0002

== ENCOUNTER 2022-11-18 04:44 | Emergency (ER) | payer MEDICAID ==
[2022-11-18] MEDS ORDERED: Ketorolac 30 MG/ML SDV IVPUSH ONE (05:17)
[2022-11-18] MEDS ORDERED: diphenhydrAMINE 50 MG/ML SDV IVPUSH ONE ×2 (05:17→07:19)
[2022-11-18] MEDS ORDERED: Ondansetron 4 MG/2 ML SDV IVPUSH ONE (05:23)
[2022-11-18 05:26] LABS: BASE EXCESS VENOUS -1.6 (-2.0-3.0); BASOPHILS ABSOLUTE AUTO 0.02 K/uL (0.00-0.20); BASOPHILS PERCENT AUTO 0.2 % (0.0-1.0); BICARBONATE,VENOUS 26 mEq/L (23-28); EOSINOPHILS ABSOLUTE AUTO 0.04 K/uL (0.00-0.45); EOSINOPHILS PERCENT AUTO 0.4 % (0.0-6.0); HEMATOCRIT 29.2 % (42.0-52.0); HEMOGLOBIN 9.8 g/dL (14.0-18.0); IMMATURE GRAN ABSOLUTE AUTO 0.03 K/uL (0.00-0.05); IMMATURE GRAN PERCENT AUTO 0.3 % (0.0-0.4); LYMPHOCYTES ABSOLUTE AUTO 0.91 K/uL (1.00-4.80); LYMPHOCYTES PERCENT AUTO 9.1 % (24.0-44.0); MEAN CORPUSCULAR HGB CONC 33.6 g/dL (32.0-36.0); MEAN CORPUSCULAR VOLUME 80.4 fL (83.0-99.0); MEAN PLATELET VOLUME 9.1 fL (9.4-12.4); NEUTROPHILS ABSOLUTE AUTO 8.8 K/uL (1.8-7.7); PCO2 VENOUS 54 mmHG (41-51); PH,VENOUS 7.28 (7.31-7.41); PLATELET COUNT,PLT 249 K/uL (150-400); PO2 VENOUS < 30 mmHG; RED BLOOD CELL COUNT 3.63 M/uL (4.52-5.90); WHITE BLOOD CELL COUNT,WBC 10.03 K/uL (3.9-11.3)
[2022-11-18] MEDS ORDERED: Lactated Ringers 1,000 ML IV SCH (05:30)
[2022-11-18 06:02] LABS: A/G RATIO 0.5 (0.9-1.6); ALBUMIN 2.6 g/dL (3.4-5.0); BILIRUBIN TOTAL 0.2 mg/dL (0.2-1.0); CALCIUM 9.1 mg/dL (8.5-10.1); CARBON DIOXIDE,CO2 26.5 mmol/L (21.0-32.0); CREATININE 1.7 mg/dL (0.8-1.3); EST CRCL DRUG DOSING (CG) 55.4 mL/min; MAGNESIUM 2.2 mg/dL (1.8-2.4); PROTEIN TOTAL,TP 7.8 g/dL (6.4-8.2); TSH ULTRASENSITIVE 0.5 uIU/mL (0.36-3.74)
[2022-11-18] MEDS ORDERED: droPERidol 5 MG/2 ML SDV IVPUSH ONE ×2 (07:19→09:24)
[2022-11-18 10:34] VITALS: BP 174/93; PULSE 115
== END 2022-11-18 10:33 | disposition home or self-care (01) ==
LOC: MW.ED 04:44
DX: E86.0 Dehydration (principal); R11.2 Nausea with vomiting, unspecified; E10.43 Type 1 diabetes mellitus with diabetic autonomic (poly)neuropathy; K31.84 Gastroparesis; Z20.822 Contact with and (suspected) exposure to COVID-19; Z91.013 Allergy to seafood; Z88.0 Allergy status to penicillin
CPT/HCPCS: 36415; 80053; 82009; 82803; 82947; 83735; 84443; 85025; 87635; 87651; 96361; 96374; 96375; 96376; 99284; J1200; J1790; J1885; J2405; J7120; U0002

== ENCOUNTER 2022-11-20 10:01 | Observation (INO) | payer MEDICAID ==
[2022-11-20] MEDS ORDERED: Sodium Chloride 0.9% 1,000 ML IV ONE (10:23)
[2022-11-20] MEDS ORDERED: Famotidine 20 MG/2 ML SDV IVPUSH ONE (10:23)
[2022-11-20] MEDS ORDERED: 50% Dextrose in Water 50 ML Syringe ONE (10:25)
[2022-11-20] MEDS ORDERED: droPERidol 5 MG/2 ML SDV IVPUSH ONE (10:27)
[2022-11-20] MEDS ORDERED: 50% Dextrose in Water 50 ML Syringe IVPUSH ONE (10:30)
[2022-11-20] MEDS ORDERED: diphenhydrAMINE 50 MG/ML SDV IVPUSH ONE (10:30)
[2022-11-20 10:48] LABS: BASOPHILS ABSOLUTE AUTO 0.02 K/uL (0.00-0.20); BASOPHILS PERCENT AUTO 0.3 % (0.0-1.0); EOSINOPHILS ABSOLUTE AUTO 0.04 K/uL (0.00-0.45); EOSINOPHILS PERCENT AUTO 0.5 % (0.0-6.0); HEMATOCRIT 28.9 % (42.0-52.0); HEMOGLOBIN 9.5 g/dL (14.0-18.0); IMMATURE GRAN ABSOLUTE AUTO 0.02 K/uL (0.00-0.05); IMMATURE GRAN PERCENT AUTO 0.3 % (0.0-0.4); LYMPHOCYTES PERCENT AUTO 17.8 % (24.0-44.0); MEAN CORPUSCULAR HEMOGLOBIN 27.1 pg (28.0-32.0); MEAN CORPUSCULAR HGB CONC 32.9 g/dL (32.0-36.0); MEAN CORPUSCULAR VOLUME 82.3 fL (83.0-99.0); MEAN PLATELET VOLUME 8.9 fL (9.4-12.4); MONOCYTES ABSOLUTE AUTO 0.27 K/uL (0.00-0.80); MONOCYTES PERCENT AUTO 3.4 % (0.0-8.0); NEUTROPHILS ABSOLUTE AUTO 6.1 K/uL (1.8-7.7); NEUTROPHILS PERCENT AUTO 77.7 % (41.0-71.0); PLATELET COUNT,PLT 295 K/uL (150-400); RED BLOOD CELL COUNT 3.51 M/uL (4.52-5.90); WHITE BLOOD CELL COUNT,WBC 7.85 K/uL (3.9-11.3)
[2022-11-20 11:15] LABS: A/G RATIO 0.5 (0.9-1.6); ALANINE AMINOTRANSFERASE,ALT 12 IU/L (14-63); ALBUMIN 2.6 g/dL (3.4-5.0); ALKALINE PHOSPHATASE 128 U/L (46-116); ASPARTATE AMNIOTRANSFERASE,AST 15 IU/L (15-37); BILIRUBIN TOTAL 0.2 mg/dL (0.2-1.0); BLOOD UREA NITROGEN,BUN 20 mg/dL (7.0-18.0); CALCIUM 8.9 mg/dL (8.5-10.1); CHLORIDE,CL 106 mmol/L (98-107); CREATININE 1.7 mg/dL (0.8-1.3); ETHANOL BLOOD MEDICAL <3 mg/dL; GLUCOSE RANDOM 43 mg/dL (74-106); LIPASE 14 U/L (16-77); MAGNESIUM 2.2 mg/dL (1.8-2.4); POTASSIUM,K 4.1 mmol/L (3.5-5.1); PROTEIN TOTAL,TP 7.5 g/dL (6.4-8.2); SODIUM,NA 142 mmol/L (136-148)
[2022-11-20 11:25] LABS: ESTIMATED GFR 57 mL/min (>60)
[2022-11-20] MEDS ORDERED: Dextrose 5%-Lactated Ringers 1,000 ML IV STA (11:31)
[2022-11-20 11:33] LABS: BASE EXCESS VENOUS 0.6 (-2.0-3.0); PH,VENOUS 7.33 (7.31-7.41)
[2022-11-20 12:12] LABS: LACTIC ACID 0.6 mmol/L (0.4-2.0)
[2022-11-20 15:12] LABS: APPEARANCE,URINE SLT CLOUDY; BILIRUBIN,URINE NEGATIVE (NEGATIVE); COLOR,URINE YELLOW; GLUCOSE,URINE NEGATIVE (NEGATIVE); KETONES,URINE NEGATIVE (NEGATIVE); LEUKOCYTE ESTERASE,URINE NEGATIVE (NEGATIVE); NITRITE,URINE NEGATIVE (NEGATIVE); OCCULT BLOOD,URINE SMALL (NEGATIVE); PROTEIN,URINE 100 mg/dL (NEGATIVE); UROBILINOGEN,URINE 0.2 EU/dL (<2.0)
[2022-11-20 15:22] LABS: AMPHETAMINES SCREEN, URINE NEGATIVE (CUTOFF=500); BARBITURATE SCREEN,URINE NEGATIVE (CUTOFF=200); BENZODIAZEPINES SCREEN,URINE NEGATIVE (CUTOFF=150); BUPRENORPHINE SCREEN,URINE PRESUMPTIVE POSITIVE (CUTOFF=10); METHADONE SCREEN, URINE NEGATIVE (CUTOFF=200); METHAMPHETAMINES SCREEN, URINE NEGATIVE (CUTOFF=500); OXYCODONE SCREEN,URINE NEGATIVE (CUT0FF=100); PCP SCREEN,URINE NEGATIVE (CUTOFF=25); PROPOXYPHENE SCREEN,URINE NEGATIVE (CUTOFF=300); THC SCREEN,URINE 20 NG/ML NEGATIVE (CUTOFF=50)
[2022-11-20 15:30] LABS: BACTERIA,URINE 4+ (NEGATIVE); EPITHELIAL CELLS,URINE RARE (NONE-FEW)
[2022-11-20] MEDS ORDERED: Sodium Chloride 0.9% 2.5 ML Syringe FLUSH PRN (16:23)
[2022-11-20] MEDS ORDERED: Sodium Chloride 0.9% 10 ML Syringe FLUSH PRN (16:23)
[2022-11-20] MEDS ORDERED: diphenhydrAMINE 25 MG Cap PO PRN (16:33)
[2022-11-20] MEDS ORDERED: BUPRENORPHINE HCL PO PRN ×2 (16:39→17:45)
[2022-11-20] MEDS ORDERED: NALOXONE HCL PO PRN ×2 (16:39→17:45)
[2022-11-20] MEDS ORDERED: Dextrose 5%-Lactated Ringers 1,000 ML IV SCH (16:45)
[2022-11-20] MEDS ORDERED: Iopamidol 755 MG/ML 500 ML Multipack Bottle IVPUSH STA (17:20)
[2022-11-20] MEDS: Pantoprazole 40 MG in Sodium Chloride 0.9% 10 ML IVPUSH SCH (17:47)
[2022-11-20] MEDS: Metoclopramide 10 MG/2 ML SDV IVPUSH SCH ×2 (17:52→21:30)
[2022-11-20] MEDS ORDERED: diphenhydrAMINE 50 MG/ML SDV IVPUSH PRN (18:02)
[2022-11-21] MEDS: Metoclopramide 10 MG/2 ML SDV IVPUSH SCH ×3 (04:51→16:28)
[2022-11-21 06:06] LABS: BASOPHILS ABSOLUTE AUTO 0.03 K/uL (0.00-0.20); BASOPHILS PERCENT AUTO 0.5 % (0.0-1.0); EOSINOPHILS ABSOLUTE AUTO 0.12 K/uL (0.00-0.45); EOSINOPHILS PERCENT AUTO 2.2 % (0.0-6.0); HEMATOCRIT 26.4 % (42.0-52.0); HEMOGLOBIN 8.5 g/dL (14.0-18.0); IMMATURE GRAN ABSOLUTE AUTO 0.01 K/uL (0.00-0.05); IMMATURE GRAN PERCENT AUTO 0.2 % (0.0-0.4); LYMPHOCYTES ABSOLUTE AUTO 1.24 K/uL (1.00-4.80); LYMPHOCYTES PERCENT AUTO 22.4 % (24.0-44.0); MEAN CORPUSCULAR HEMOGLOBIN 26.6 pg (28.0-32.0); MEAN CORPUSCULAR HGB CONC 32.2 g/dL (32.0-36.0); MEAN CORPUSCULAR VOLUME 82.8 fL (83.0-99.0); MEAN PLATELET VOLUME 8.9 fL (9.4-12.4); MONOCYTES ABSOLUTE AUTO 0.27 K/uL (0.00-0.80); MONOCYTES PERCENT AUTO 4.9 % (0.0-8.0); NEUTROPHILS ABSOLUTE AUTO 3.86 K/uL (1.80-7.70); NEUTROPHILS PERCENT AUTO 69.8 % (41.0-71.0); PLATELET COUNT,PLT 220 K/uL (150-400); RED BLOOD CELL COUNT 3.19 M/uL (4.52-5.90); WHITE BLOOD CELL COUNT,WBC 5.53 K/uL (3.9-11.3)
[2022-11-21 06:33] LABS: ALBUMIN 2.1 g/dL (3.4-5.0); CALCIUM 8.4 mg/dL (8.5-10.1); CARBON DIOXIDE,CO2 27.8 mmol/L (21.0-32.0); CREATININE 1.3 mg/dL (0.8-1.3); EST CRCL DRUG DOSING (CG) 65.2 mL/min; POTASSIUM,K 3.9 mmol/L (3.5-5.1); PROTEIN TOTAL,TP 6.5 g/dL (6.4-8.2)
[2022-11-21 06:34] LABS: A/G RATIO 0.5 (0.9-1.6); BILIRUBIN TOTAL 0.2 mg/dL (0.2-1.0); MAGNESIUM 2.1 mg/dL (1.8-2.4); PHOSPHORUS 3.5 mg/dL (2.6-4.7)
[2022-11-21] MEDS ORDERED: Promethazine 25 MG Tab PO PRN (13:20)
[2022-11-21] MEDS ORDERED: Ketorolac 30 MG/ML SDV IVPUSH ONE (13:22)
[2022-11-21] MEDS: Pantoprazole 40 MG in Sodium Chloride 0.9% 10 ML IVPUSH SCH (16:24)
[2022-11-21 17:00] VITALS: BP 120/76; PULSE 80
== END 2022-11-21 16:45 | disposition home or self-care (01) ==
LOC: MW.ED 10:01 → MW.MS 16:05
PROVIDERS: ADMIT Family Medicine; ATTEND Family Medicine
DX: E10.649 Type 1 diabetes mellitus with hypoglycemia without coma (principal); E10.43 Type 1 diabetes mellitus with diabetic autonomic (poly)neuropathy; K31.84 Gastroparesis; D64.9 Anemia, unspecified; R11.2 Nausea with vomiting, unspecified; F32.5 Major depressive disorder, single episode, in full remission; F11.11 Opioid abuse, in remission; Z20.822 Contact with and (suspected) exposure to COVID-19; Z88.0 Allergy status to penicillin; Z91.013 Allergy to seafood; Z79.4 Long term (current) use of insulin; Z79.899 Other long term (current) drug therapy; Z87.448 Personal history of other diseases of urinary system
CPT/HCPCS: 36415; 74177; 76705; 80053; 80305; 80307; 81001; 82009; 82803; 82947; 83605; 83690; 83735; 84100; 85025; 87635; 93005; 96361; 96374; 96375; 99285; A9270; C9113; J1200; J1790; J1885; J2765; J3490; J7030; J7121; Q9967; 93010; 96376; 99222; 99238; 99284; G0378; U0002

== ENCOUNTER 2022-11-24 17:56 | Emergency (ER) | payer MEDICAID ==
[2022-11-24 18:49] LABS: APPEARANCE,URINE SLT CLOUDY; BILIRUBIN,URINE NEGATIVE (NEGATIVE); COLOR,URINE YELLOW; GLUCOSE,URINE NEGATIVE (NEGATIVE); KETONES,URINE NEGATIVE (NEGATIVE); LEUKOCYTE ESTERASE,URINE TRACE (NEGATIVE); NITRITE,URINE NEGATIVE (NEGATIVE); OCCULT BLOOD,URINE TRACE-INTACT (NEGATIVE); PH,URINE 7.5 (5.0-8.0); PROTEIN,URINE >=300 mg/dL (NEGATIVE); UROBILINOGEN,URINE 0.2 EU/dL (<2.0)
[2022-11-24 18:53] LABS: BACTERIA,URINE 4+ (NEGATIVE); EPITHELIAL CELLS,URINE RARE (NONE-FEW); HYALINE CASTS,URINE 0-2 (0-2/LPF)
[2022-11-24] MEDS ORDERED: Ciprofloxacin 500 MG Tab PO ONE (19:06)
[2022-11-24 19:17] VITALS: BP 131/72; PULSE 70
== END 2022-11-24 19:17 | disposition home or self-care (01) ==
LOC: MW.ED 17:56
DX: N30.00 Acute cystitis without hematuria (principal); E10.9 Type 1 diabetes mellitus without complications; Z88.0 Allergy status to penicillin; Z91.013 Allergy to seafood; Z79.4 Long term (current) use of insulin
CPT/HCPCS: 81001; 87086; 99283; A9270

== ENCOUNTER 2022-12-07 22:45 | Emergency (ER) | payer MEDICAID ==
[2022-12-07] MEDS ORDERED: Lidocaine 1% PF 2 ML SDV INJECT ONE (23:50)
[2022-12-08 00:36] VITALS: BP 122/70; PULSE 85
== END 2022-12-08 00:36 | disposition home or self-care (01) ==
LOC: MW.ED 22:45
DX: K04.7 Periapical abscess without sinus (principal); E10.9 Type 1 diabetes mellitus without complications; Z79.899 Other long term (current) drug therapy; Z88.0 Allergy status to penicillin; Z91.013 Allergy to seafood
CPT/HCPCS: 41800; 99282; 99283; J3490

== ENCOUNTER 2022-12-21 15:41 | Emergency (ER) | payer MEDICAID ==
[2022-12-21] MEDS ORDERED: Sodium Chloride 23.4% 154 MEQ in Dextrose 10% in Water 1,000 ML IV ONE ×2 (16:20)
[2022-12-21] MEDS ORDERED: Dextrose 5%-0.9% NaCl 1,000 ML IV ONE (16:22)
[2022-12-21] MEDS ORDERED: Sodium Chloride 23.4% 154 MEQ in Dextrose 10% in Water 1,000 ML IV SCH ×2 (16:30)
[2022-12-21 16:34] LABS: BASOPHILS ABSOLUTE AUTO 0.03 K/uL (0.00-0.20); BASOPHILS PERCENT AUTO 0.8 % (0.0-1.0); EOSINOPHILS ABSOLUTE AUTO 0.13 K/uL (0.00-0.45); EOSINOPHILS PERCENT AUTO 3.3 % (0.0-6.0); HEMATOCRIT 36.5 % (42.0-52.0); HEMOGLOBIN 12.3 g/dL (14.0-18.0); IMMATURE GRAN ABSOLUTE AUTO 0.01 K/uL (0.00-0.05); IMMATURE GRAN PERCENT AUTO 0.3 % (0.0-0.4); LYMPHOCYTES ABSOLUTE AUTO 1.35 K/uL (1.00-4.80); LYMPHOCYTES PERCENT AUTO 34.1 % (24.0-44.0); MEAN CORPUSCULAR HGB CONC 33.7 g/dL (32.0-36.0); MEAN CORPUSCULAR VOLUME 80.2 fL (83.0-99.0); MEAN PLATELET VOLUME 9.5 fL (9.4-12.4); MONOCYTES PERCENT AUTO 2.5 % (0.0-8.0); NEUTROPHILS ABSOLUTE AUTO 2.34 K/uL (1.80-7.70); PLATELET COUNT,PLT 160 K/uL (150-400); RED BLOOD CELL COUNT 4.55 M/uL (4.52-5.90); WHITE BLOOD CELL COUNT,WBC 3.96 K/uL (3.9-11.3)
[2022-12-21 16:55] LABS: A/G RATIO 0.6 (0.9-1.6); ALANINE AMINOTRANSFERASE,ALT 19 IU/L (14-63); ALBUMIN 2.7 g/dL (3.4-5.0); ALKALINE PHOSPHATASE 140 U/L (46-116); ASPARTATE AMNIOTRANSFERASE,AST 19 IU/L (15-37); BILIRUBIN TOTAL 0.2 mg/dL (0.2-1.0); BLOOD UREA NITROGEN,BUN 12 mg/dL (7.0-18.0); CALCIUM 9.3 mg/dL (8.5-10.1); CHLORIDE,CL 107 mmol/L (98-107); CREATININE 1.4 mg/dL (0.8-1.3); EST CRCL DRUG DOSING (CG) 64.69 mL/min; ETHANOL BLOOD MEDICAL <3 mg/dL; GLUCOSE RANDOM 59 mg/dL (74-106); POTASSIUM,K 4.4 mmol/L (3.5-5.1); PROTEIN TOTAL,TP 7.5 g/dL (6.4-8.2); SODIUM,NA 144 mmol/L (136-148)
[2022-12-21 16:58] LABS: ESTIMATED GFR 72 mL/min (>60)
[2022-12-21 18:30] VITALS: PULSE 78
[2022-12-21 18:47] VITALS: BP 127/89
== END 2022-12-21 18:53 | disposition home or self-care (01) ==
LOC: MW.ED 15:41
DX: E10.649 Type 1 diabetes mellitus with hypoglycemia without coma (principal); Z88.0 Allergy status to penicillin; Z91.013 Allergy to seafood
CPT/HCPCS: 36415; 80053; 80307; 82947; 85025; 96360; 99284; J7042; 99282

== ENCOUNTER 2023-02-13 14:39 | Emergency (ER) | payer MEDICAID ==
[2023-02-13] MEDS ORDERED: Sodium Chloride 0.9% 2.5 ML Syringe FLUSH PRN (17:47)
[2023-02-13] MEDS ORDERED: Sodium Chloride 0.9% 1,000 ML IV ONE ×2 (17:47→19:21)
[2023-02-13] MEDS ORDERED: Sodium Chloride 0.9% 10 ML Syringe FLUSH PRN (17:47)
[2023-02-13] MEDS ORDERED: Metoclopramide 10 MG/2 ML SDV IVPUSH ONE (17:48)
[2023-02-13] MEDS ORDERED: Alum Hydro/Mag Hydro/Simeth XS 15 ML, Lidocaine 2% 5 ML PO ONE ×2 (17:49)
[2023-02-13 18:11] LABS: BASE EXCESS VENOUS 0.4 (-2.0-3.0); BASOPHILS ABSOLUTE AUTO 0.03 K/uL (0.00-0.20); BASOPHILS PERCENT AUTO 0.6 % (0.0-1.0); BICARBONATE,VENOUS 27 mEq/L (23-28); EOSINOPHILS ABSOLUTE AUTO 0.11 K/uL (0.00-0.45); EOSINOPHILS PERCENT AUTO 2.1 % (0.0-6.0); HEMATOCRIT 31.6 % (42.0-52.0); HEMOGLOBIN 10.6 g/dL (14.0-18.0); LYMPHOCYTES ABSOLUTE AUTO 1.36 K/uL (1.00-4.80); LYMPHOCYTES PERCENT AUTO 25.9 % (24.0-44.0); MEAN CORPUSCULAR HEMOGLOBIN 27.9 pg (28.0-32.0); MEAN CORPUSCULAR HGB CONC 33.5 g/dL (32.0-36.0); MEAN CORPUSCULAR VOLUME 83.2 fL (83.0-99.0); MEAN PLATELET VOLUME 9.6 fL (9.4-12.4); MONOCYTES ABSOLUTE AUTO 0.17 K/uL (0.00-0.80); MONOCYTES PERCENT AUTO 3.2 % (0.0-8.0); NEUTROPHILS ABSOLUTE AUTO 3.59 K/uL (1.80-7.70); NEUTROPHILS PERCENT AUTO 68.2 % (41.0-71.0); PCO2 VENOUS 55 mmHG (41-51); PH,VENOUS 7.31 (7.31-7.41); PLATELET COUNT,PLT 224 K/uL (150-400); PO2 VENOUS < 30 mmHG; WHITE BLOOD CELL COUNT,WBC 5.26 K/uL (3.9-11.3)
[2023-02-13 18:36] LABS: A/G RATIO 0.6 (0.9-1.6); ALBUMIN 2.4 g/dL (3.4-5.0); BILIRUBIN TOTAL 0.2 mg/dL (0.2-1.0); CALCIUM 8.9 mg/dL (8.5-10.1); CARBON DIOXIDE,CO2 26.1 mmol/L (21.0-32.0); CREATININE 1.6 mg/dL (0.8-1.3); EST CRCL DRUG DOSING (CG) 58.86 mL/min; POTASSIUM,K 4.7 mmol/L (3.5-5.1); PROTEIN TOTAL,TP 6.7 g/dL (6.4-8.2)
[2023-02-13 19:21] LABS: APPEARANCE,URINE SLT CLOUDY; BILIRUBIN,URINE NEGATIVE (NEGATIVE); COLOR,URINE YELLOW; GLUCOSE,URINE >=1000 mg/dL (NEGATIVE); KETONES,URINE NEGATIVE (NEGATIVE); LEUKOCYTE ESTERASE,URINE TRACE (NEGATIVE); NITRITE,URINE NEGATIVE (NEGATIVE); OCCULT BLOOD,URINE SMALL (NEGATIVE); PROTEIN,URINE >=300 mg/dL (NEGATIVE); UROBILINOGEN,URINE 0.2 EU/dL (<2.0)
[2023-02-13 19:35] LABS: BACTERIA,URINE 2+ (NEGATIVE); EPITHELIAL CELLS,URINE FEW (NONE-FEW)
[2023-02-13] MEDS ORDERED: diphenhydrAMINE 50 MG/ML SDV IVPUSH ONE (20:07)
[2023-02-13 21:59] VITALS: BP 140/90; PULSE 86
== END 2023-02-13 20:30 | disposition home or self-care (01) ==
LOC: MW.ED 14:39
DX: N30.00 Acute cystitis without hematuria (principal); R11.2 Nausea with vomiting, unspecified; E10.9 Type 1 diabetes mellitus without complications; Z88.0 Allergy status to penicillin; Z91.013 Allergy to seafood; Z79.4 Long term (current) use of insulin; Z79.899 Other long term (current) drug therapy
CPT/HCPCS: 36415; 80053; 81001; 82009; 82803; 82947; 83605; 83690; 84484; 85025; 93005; 96361; 96374; 96375; 99284; A9270; J1200; J2765; J7030

== ENCOUNTER 2023-03-18 14:44 | Observation (INO) | payer MEDICAID ==
[2023-03-18 15:39] LABS: BASE EXCESS ARTERIAL -0.2 (-2.0-3.0); BICARBONATE,ARTERIAL 25 mEq/L (22-26); PCO2 ARTERIAL 40 mmHG (35-45); PO2 ARTERIAL 101 mmHG (80-105)
[2023-03-18] MEDS: Sodium Chloride 0.9% 1,000 ML IV STA (15:39)
[2023-03-18] MEDS: Sodium Chloride 0.9% 10 ML Syringe FLUSH PRN (15:43)
[2023-03-18] MEDS: Sodium Chloride 0.9% 2.5 ML Syringe FLUSH PRN (15:46)
[2023-03-18 15:49] LABS: BASOPHILS ABSOLUTE AUTO 0.03 K/uL (0.00-0.20); BASOPHILS PERCENT AUTO 0.3 % (0.0-1.0); EOSINOPHILS ABSOLUTE AUTO 0.02 K/uL (0.00-0.45); EOSINOPHILS PERCENT AUTO 0.2 % (0.0-6.0); HEMATOCRIT 32.3 % (42.0-52.0); HEMOGLOBIN 11.1 g/dL (14.0-18.0); IMMATURE GRAN ABSOLUTE AUTO 0.03 K/uL (0.00-0.05); IMMATURE GRAN PERCENT AUTO 0.3 % (0.0-0.4); LYMPHOCYTES ABSOLUTE AUTO 0.86 K/uL (1.00-4.80); LYMPHOCYTES PERCENT AUTO 7.4 % (24.0-44.0); MEAN CORPUSCULAR HGB CONC 34.4 g/dL (32.0-36.0); MEAN CORPUSCULAR VOLUME 81.4 fL (83.0-99.0); MEAN PLATELET VOLUME 9.2 fL (9.4-12.4); MONOCYTES ABSOLUTE AUTO 0.15 K/uL (0.00-0.80); MONOCYTES PERCENT AUTO 1.3 % (0.0-8.0); NEUTROPHILS ABSOLUTE AUTO 10.46 K/uL (1.80-7.70); NEUTROPHILS PERCENT AUTO 90.5 % (41.0-71.0); PLATELET COUNT,PLT 215 K/uL (150-400); RED BLOOD CELL COUNT 3.97 M/uL (4.52-5.90); WHITE BLOOD CELL COUNT,WBC 11.55 K/uL (3.9-11.3)
[2023-03-18 16:28] LABS: MAGNESIUM 1.9 mg/dL (1.8-2.4); PHOSPHORUS 3.1 mg/dL (2.6-4.7)
[2023-03-18 16:33] LABS: A/G RATIO 0.5 (0.9-1.6); ALBUMIN 2.5 g/dL (3.4-5.0); BILIRUBIN TOTAL 0.3 mg/dL (0.2-1.0); CALCIUM 9.3 mg/dL (8.5-10.1); CARBON DIOXIDE,CO2 24.4 mmol/L (21.0-32.0); CREATININE 1.5 mg/dL (0.8-1.3); EST CRCL DRUG DOSING (CG) 57.96 mL/min; POTASSIUM,K 4.1 mmol/L (3.5-5.1); PROTEIN TOTAL,TP 7.1 g/dL (6.4-8.2)
[2023-03-18] MEDS: diphenhydrAMINE 50 MG/ML SDV IVPUSH ONE (16:43)
[2023-03-18] MEDS: Ondansetron 4 MG/2 ML SDV IVPUSH ONE (17:00)
[2023-03-19 00:32] LABS: BILIRUBIN,URINE NEGATIVE (NEGATIVE); COLOR,URINE YELLOW; GLUCOSE,URINE 500 mg/dL (NEGATIVE); KETONES,URINE NEGATIVE (NEGATIVE); LEUKOCYTE ESTERASE,URINE NEGATIVE (NEGATIVE); NITRITE,URINE NEGATIVE (NEGATIVE); OCCULT BLOOD,URINE MODERATE (NEGATIVE); PROTEIN,URINE >=300 mg/dL (NEGATIVE); UROBILINOGEN,URINE 0.2 EU/dL (<2.0)
[2023-03-19 00:33] LABS: APPEARANCE,URINE SLT CLOUDY
[2023-03-19 01:10] LABS: BACTERIA,URINE FEW (NEGATIVE); EPITHELIAL CELLS,URINE RARE (NONE-FEW); SPERM,URINE PRESENT (NEGATIVE)
[2023-03-19] MEDS ORDERED: Glucagon,Human Recombinant 1 MG Vial IM PRN ×2 (03:34→18:28)
[2023-03-19] MEDS: diphenhydrAMINE 50 MG/ML SDV IVPUSH PRN ×2 (04:31→17:28)
[2023-03-19] MEDS: Ondansetron 4 MG/2 ML SDV IVPUSH PRN (04:31)
[2023-03-19] MEDS: Sodium Chloride 0.9% 1,000 ML IV SCH (04:33)
[2023-03-19] MEDS: Metoclopramide 10 MG/2 ML SDV IVPUSH ONE ×2 (04:35→05:14)
[2023-03-19] MEDS: Insulin Aspart 100 Units/ML 3 ML Pen SUBCUT SCH (06:28)
[2023-03-19] MEDS ORDERED: Insulin Aspart 100 Units/ML 3 ML Pen SUBCUT SCH (07:30)
[2023-03-19] MEDS ORDERED: Sodium Chloride 0.9% 2.5 ML Syringe FLUSH PRN (08:07)
[2023-03-19] MEDS ORDERED: Sodium Chloride 0.9% 10 ML Syringe FLUSH PRN (08:07)
[2023-03-19 08:29] LABS: HEMATOCRIT 25.8 % (42.0-52.0); HEMOGLOBIN 8.8 g/dL (14.0-18.0); IMMATURE GRAN ABSOLUTE AUTO 0.08 K/uL (0.00-0.05); IMMATURE GRAN PERCENT AUTO 1.1 % (0.0-0.4); LYMPHOCYTES ABSOLUTE AUTO 0.82 K/uL (1.00-4.80); LYMPHOCYTES PERCENT AUTO 11.3 % (24.0-44.0); MEAN CORPUSCULAR HGB CONC 34.1 g/dL (32.0-36.0); MEAN CORPUSCULAR VOLUME 82.2 fL (83.0-99.0); MEAN PLATELET VOLUME 9.4 fL (9.4-12.4); MONOCYTES ABSOLUTE AUTO 0.13 K/uL (0.00-0.80); MONOCYTES PERCENT AUTO 1.8 % (0.0-8.0); NEUTROPHILS ABSOLUTE AUTO 6.25 K/uL (1.80-7.70); NEUTROPHILS PERCENT AUTO 85.8 % (41.0-71.0); PLATELET COUNT,PLT 186 K/uL (150-400); RED BLOOD CELL COUNT 3.14 M/uL (4.52-5.90); WHITE BLOOD CELL COUNT,WBC 7.28 K/uL (3.9-11.3)
[2023-03-19 08:48] LABS: CALCIUM 8.3 mg/dL (8.5-10.1); CARBON DIOXIDE,CO2 23.8 mmol/L (21.0-32.0); CREATININE 1.7 mg/dL (0.8-1.3); EST CRCL DRUG DOSING (CG) 51.21 mL/min; POTASSIUM,K 3.7 mmol/L (3.5-5.1)
[2023-03-19] MEDS ORDERED: Buprenorphine/Naloxone 8-2 MG Tab.SL SL PRN (09:00)
[2023-03-19] MEDS: BUPRENORPHINE SL PRN (09:25)
[2023-03-19] MEDS: NALOXONE SL PRN (09:25)
[2023-03-19] MEDS: Pantoprazole 40 MG in Sodium Chloride 0.9% 10 ML IVPUSH SCH (09:25)
[2023-03-19] MEDS: Bisacodyl 10 MG Supp RECTAL ONE (09:26)
[2023-03-19] MEDS: FLUoxetine 20 MG Cap PO SCH (09:26)
[2023-03-19] MEDS: BUPRENORPHINE PO SCH (09:57)
[2023-03-19] MEDS: NALOXONE PO SCH (09:57)
[2023-03-19] MEDS: Metoclopramide 10 MG/2 ML SDV IVPUSH SCH (12:04)
[2023-03-19] MEDS: Insulin Aspart 100 Units/ML 3 ML Pen SUBCUT STA ×3 (17:14→19:57)
[2023-03-19] MEDS ORDERED: 50% Dextrose in Water 50 ML Syringe IVPUSH PRN (18:28)
[2023-03-19] MEDS: Insulin Glargine,Hum.Rec.Anlog 100 UNIT/ML 3 ML Pen SUBCUT STA (19:57)
[2023-03-19] MEDS: Insulin Glargine,Hum.Rec.Anlog 100 UNIT/ML 3 ML Pen SUBCUT SCH (20:24)
[2023-03-19] MEDS ORDERED: Metoclopramide 5 MG Tab PO SCH (21:00)
[2023-03-20] MEDS: 50% Dextrose in Water 50 ML Syringe IVPUSH PRN (02:00)
[2023-03-20 06:24] LABS: BASOPHILS ABSOLUTE AUTO 0.03 K/uL (0.00-0.20); BASOPHILS PERCENT AUTO 0.5 % (0.0-1.0); EOSINOPHILS ABSOLUTE AUTO 0.04 K/uL (0.00-0.45); EOSINOPHILS PERCENT AUTO 0.6 % (0.0-6.0); HEMATOCRIT 24.8 % (42.0-52.0); HEMOGLOBIN 8.6 g/dL (14.0-18.0); IMMATURE GRAN ABSOLUTE AUTO 0.01 K/uL (0.00-0.05); IMMATURE GRAN PERCENT AUTO 0.2 % (0.0-0.4); LYMPHOCYTES ABSOLUTE AUTO 1.47 K/uL (1.00-4.80); LYMPHOCYTES PERCENT AUTO 22.9 % (24.0-44.0); MEAN CORPUSCULAR HGB CONC 34.7 g/dL (32.0-36.0); MEAN CORPUSCULAR VOLUME 83.5 fL (83.0-99.0); MEAN PLATELET VOLUME 9.4 fL (9.4-12.4); MONOCYTES ABSOLUTE AUTO 0.25 K/uL (0.00-0.80); MONOCYTES PERCENT AUTO 3.9 % (0.0-8.0); NEUTROPHILS ABSOLUTE AUTO 4.61 K/uL (1.80-7.70); NEUTROPHILS PERCENT AUTO 71.9 % (41.0-71.0); PLATELET COUNT,PLT 159 K/uL (150-400); RED BLOOD CELL COUNT 2.97 M/uL (4.52-5.90); WHITE BLOOD CELL COUNT,WBC 6.41 K/uL (3.9-11.3)
[2023-03-20 06:40] LABS: CALCIUM 7.9 mg/dL (8.5-10.1); CREATININE 1.6 mg/dL (0.8-1.3); EST CRCL DRUG DOSING (CG) 54.41 mL/min; MAGNESIUM 1.7 mg/dL (1.8-2.4); PHOSPHORUS 3.5 mg/dL (2.6-4.7); POTASSIUM,K 3.9 mmol/L (3.5-5.1)
[2023-03-20 11:32] VITALS: BP 156/96; PULSE 77
== END 2023-03-20 16:00 | disposition home or self-care (01) ==
LOC: MW.ED 14:44 → MW.MS 03-19 01:23
PROVIDERS: ADMIT Internal Medicine; ATTEND Internal Medicine
DX: E10.43 Type 1 diabetes mellitus with diabetic autonomic (poly)neuropathy (principal); K31.84 Gastroparesis; N13.30 Unspecified hydronephrosis; N31.9 Neuromuscular dysfunction of bladder, unspecified; K59.00 Constipation, unspecified; F32.A Depression, unspecified; Z79.4 Long term (current) use of insulin; Z79.899 Other long term (current) drug therapy
CPT/HCPCS: 36415; 36600; 51702; 71045; 74176; 80048; 80053; 81001; 82009; 82803; 82947; 83735; 84100; 85025; A9270; C9113; J0574; J1200; J1815; J2405; J2765; J3490; J7030; 93010; 96361; 96374; 96375; 99285; 99285-25

== ENCOUNTER 2023-03-23 09:46 | Emergency (ER) | payer MEDICAID ==
[2023-03-23 10:10] LABS: BASOPHILS ABSOLUTE AUTO 0.01 K/uL (0.00-0.20); BASOPHILS PERCENT AUTO 0.2 % (0.0-1.0); EOSINOPHILS ABSOLUTE AUTO 0.01 K/uL (0.00-0.45); EOSINOPHILS PERCENT AUTO 0.2 % (0.0-6.0); HEMATOCRIT 32.5 % (42.0-52.0); HEMOGLOBIN 11.3 g/dL (14.0-18.0); IMMATURE GRAN ABSOLUTE AUTO 0.01 K/uL (0.00-0.05); IMMATURE GRAN PERCENT AUTO 0.2 % (0.0-0.4); LYMPHOCYTES ABSOLUTE AUTO 0.67 K/uL (1.00-4.80); LYMPHOCYTES PERCENT AUTO 11.3 % (24.0-44.0); MEAN CORPUSCULAR HGB CONC 34.8 g/dL (32.0-36.0); MEAN CORPUSCULAR VOLUME 80.4 fL (83.0-99.0); MEAN PLATELET VOLUME 9.5 fL (9.4-12.4); MONOCYTES ABSOLUTE AUTO 0.09 K/uL (0.00-0.80); MONOCYTES PERCENT AUTO 1.5 % (0.0-8.0); NEUTROPHILS ABSOLUTE AUTO 5.15 K/uL (1.80-7.70); NEUTROPHILS PERCENT AUTO 86.6 % (41.0-71.0); PLATELET COUNT,PLT 191 K/uL (150-400); RED BLOOD CELL COUNT 4.04 M/uL (4.52-5.90); WHITE BLOOD CELL COUNT,WBC 5.94 K/uL (3.9-11.3)
[2023-03-23] MEDS: Ondansetron 4 MG/2 ML SDV IVPUSH ONE (10:12)
[2023-03-23] MEDS: Sodium Chloride 0.9% 1,000 ML IV ONE (10:12)
[2023-03-23 10:26] LABS: A/G RATIO 0.6 (0.9-1.6); ALBUMIN 2.5 g/dL (3.4-5.0); BILIRUBIN TOTAL 0.4 mg/dL (0.2-1.0); CALCIUM 8.8 mg/dL (8.5-10.1); CARBON DIOXIDE,CO2 27.8 mmol/L (21.0-32.0); CREATININE 1.6 mg/dL (0.8-1.3); EST CRCL DRUG DOSING (CG) 63.69 mL/min; POTASSIUM,K 3.8 mmol/L (3.5-5.1); PROTEIN TOTAL,TP 6.9 g/dL (6.4-8.2)
[2023-03-23] MEDS: Metoclopramide 10 MG/2 ML SDV IVPUSH ONE (11:31)
[2023-03-23] MEDS: hydrALAZINE 20 MG/ML SDV IVPUSH ONE (11:31)
[2023-03-23] MEDS: Ketorolac 30 MG/ML SDV IVPUSH ONE (12:15)
[2023-03-23 13:44] VITALS: BP 166/102; PULSE 111
== END 2023-03-23 13:43 | disposition home or self-care (01) ==
LOC: MW.ED 09:46
DX: R11.10 Vomiting, unspecified (principal); E10.9 Type 1 diabetes mellitus without complications; Z88.0 Allergy status to penicillin; Z91.013 Allergy to seafood; Z79.899 Other long term (current) drug therapy; Z79.4 Long term (current) use of insulin
CPT/HCPCS: 36415; 80053; 82947; 85025; 96361; 96374; 96375; 99284; J0360; J1885; J2405; J2765; J7030

== ENCOUNTER 2023-05-16 11:17 | Emergency (ER) | payer MEDICAID ==
[2023-05-16 12:03] LABS: BASOPHILS ABSOLUTE AUTO 0.02 K/uL (0.00-0.20); BASOPHILS PERCENT AUTO 0.3 % (0.0-1.0); EOSINOPHILS ABSOLUTE AUTO 0.15 K/uL (0.00-0.45); EOSINOPHILS PERCENT AUTO 2.5 % (0.0-6.0); HEMATOCRIT 29.1 % (42.0-52.0); IMMATURE GRAN ABSOLUTE AUTO 0.01 K/uL (0.00-0.05); IMMATURE GRAN PERCENT AUTO 0.2 % (0.0-0.4); LYMPHOCYTES ABSOLUTE AUTO 1.48 K/uL (1.00-4.80); LYMPHOCYTES PERCENT AUTO 24.9 % (24.0-44.0); MEAN CORPUSCULAR HEMOGLOBIN 29.2 pg (28.0-32.0); MEAN CORPUSCULAR HGB CONC 34.4 g/dL (32.0-36.0); MEAN CORPUSCULAR VOLUME 85.1 fL (83.0-99.0); MONOCYTES ABSOLUTE AUTO 0.27 K/uL (0.00-0.80); MONOCYTES PERCENT AUTO 4.5 % (0.0-8.0); NEUTROPHILS ABSOLUTE AUTO 4.02 K/uL (1.80-7.70); NEUTROPHILS PERCENT AUTO 67.6 % (41.0-71.0); PLATELET COUNT,PLT 209 K/uL (150-400); RED BLOOD CELL COUNT 3.42 M/uL (4.52-5.90); WHITE BLOOD CELL COUNT,WBC 5.95 K/uL (3.9-11.3)
[2023-05-16] MEDS: diphenhydrAMINE 50 MG/ML SDV IVPUSH STA (12:03)
[2023-05-16] MEDS: Ketorolac 30 MG/ML SDV IVPUSH STA (12:03)
[2023-05-16] MEDS: Ondansetron 4 MG/2 ML SDV IVPUSH STA (12:03)
[2023-05-16] MEDS: Sodium Chloride 0.9% 1,000 ML IV STA ×2 (12:03→13:06)
[2023-05-16] MEDS: Sodium Chloride 0.9% 2.5 ML Syringe FLUSH PRN (12:04)
[2023-05-16] MEDS: Sodium Chloride 0.9% 10 ML Syringe FLUSH PRN (12:04)
[2023-05-16 12:05] LABS: BASE EXCESS VENOUS -0.5 (-2.0-3.0); BICARBONATE,VENOUS 27 mEQ/mL (22-28); PCO2 VENOUS 59 mmHG (41-51); PH,VENOUS 7.27 (7.31-7.41)
[2023-05-16 12:08] LABS: PO2 VENOUS < 30 mmHG (80-100)
[2023-05-16 12:37] LABS: A/G RATIO 0.4 (0.9-1.6); ALANINE AMINOTRANSFERASE,ALT 11 IU/L (14-63); ALBUMIN 1.4 g/dL (3.4-5.0); ALKALINE PHOSPHATASE 87 U/L (46-116); ASPARTATE AMNIOTRANSFERASE,AST 15 IU/L (15-37); BILIRUBIN TOTAL 0.2 mg/dL (0.2-1.0); BLOOD UREA NITROGEN,BUN 23 mg/dL (7.0-18.0); CALCIUM 8.4 mg/dL (8.5-10.1); CHLORIDE,CL 106 mmol/L (98-107); CREATININE 1.9 mg/dL (0.8-1.3); EST CRCL DRUG DOSING (CG) 45.76 mL/min; ETHANOL BLOOD MEDICAL <3 mg/dL; GLUCOSE RANDOM 211 mg/dL (74-106); LIPASE 14 U/L (16-77); PROTEIN TOTAL,TP 5.3 g/dL (6.4-8.2); SODIUM,NA 140 mmol/L (136-148)
[2023-05-16 12:38] LABS: ESTIMATED GFR 50 mL/min (>60)
[2023-05-16 13:50] VITALS: BP 188/122; PULSE 103
== END 2023-05-16 13:52 | disposition home or self-care (01) ==
LOC: MW.ED 11:17
DX: R11.2 Nausea with vomiting, unspecified (principal); E10.65 Type 1 diabetes mellitus with hyperglycemia; I10 Essential (primary) hypertension; Z79.4 Long term (current) use of insulin; Z79.899 Other long term (current) drug therapy; Z88.1 Allergy status to other antibiotic agents; Z91.018 Allergy to other foods; Z75.8 Other problems related to medical facilities and other health care
CPT/HCPCS: 36415; 80053; 80307; 82009; 82803; 82947; 83690; 83735; 85025; 96361; 96374; 96375; 99284; J1200; J1885; J2405; J3490; J7030

== ENCOUNTER 2023-05-19 15:14 | Emergency (ER) | payer MEDICAID ==
[2023-05-19 15:57] LABS: BASOPHILS ABSOLUTE AUTO 0.04 K/uL (0.00-0.20); BASOPHILS PERCENT AUTO 0.7 % (0.0-1.0); EOSINOPHILS ABSOLUTE AUTO 0.18 K/uL (0.00-0.45); EOSINOPHILS PERCENT AUTO 3.3 % (0.0-6.0); HEMOGLOBIN 10.4 g/dL (14.0-18.0); IMMATURE GRAN ABSOLUTE AUTO 0.03 K/uL (0.00-0.05); IMMATURE GRAN PERCENT AUTO 0.6 % (0.0-0.4); LYMPHOCYTES ABSOLUTE AUTO 1.55 K/uL (1.00-4.80); LYMPHOCYTES PERCENT AUTO 28.7 % (24.0-44.0); MEAN CORPUSCULAR HEMOGLOBIN 29.1 pg (28.0-32.0); MEAN CORPUSCULAR HGB CONC 34.7 g/dL (32.0-36.0); MEAN PLATELET VOLUME 8.9 fL (9.4-12.4); MONOCYTES ABSOLUTE AUTO 0.28 K/uL (0.00-0.80); MONOCYTES PERCENT AUTO 5.2 % (0.0-8.0); NEUTROPHILS ABSOLUTE AUTO 3.33 K/uL (1.80-7.70); NEUTROPHILS PERCENT AUTO 61.5 % (41.0-71.0); PLATELET COUNT,PLT 208 K/uL (150-400); RED BLOOD CELL COUNT 3.57 M/uL (4.52-5.90); WHITE BLOOD CELL COUNT,WBC 5.41 K/uL (3.9-11.3)
[2023-05-19] MEDS: Sodium Chloride 0.9% 1,000 ML IV ONE (16:00)
[2023-05-19] MEDS: Ondansetron 4 MG/2 ML SDV IVPUSH ONE ×2 (16:00→17:19)
[2023-05-19] MEDS: Ketorolac 30 MG/ML SDV IVPUSH ONE (16:00)
[2023-05-19 16:23] LABS: A/G RATIO 0.4 (0.9-1.6); ALBUMIN 1.5 g/dL (3.4-5.0); BILIRUBIN TOTAL 0.2 mg/dL (0.2-1.0); CALCIUM 8.4 mg/dL (8.5-10.1); CARBON DIOXIDE,CO2 26.6 mmol/L (21.0-32.0); CREATININE 1.9 mg/dL (0.8-1.3); EST CRCL DRUG DOSING (CG) 45.76 mL/min; PROTEIN TOTAL,TP 5.4 g/dL (6.4-8.2)
[2023-05-19] MEDS: diphenhydrAMINE 50 MG/ML SDV IVPUSH ONE (16:33)
[2023-05-19] MEDS: Famotidine 20 MG/2 ML SDV IVPUSH ONE (18:07)
[2023-05-19 18:10] VITALS: PULSE 90
[2023-05-19 19:24] LABS: BILIRUBIN,URINE NEGATIVE (NEGATIVE); COLOR,URINE YELLOW; GLUCOSE,URINE 500 mg/dL (NEGATIVE); KETONES,URINE NEGATIVE (NEGATIVE); LEUKOCYTE ESTERASE,URINE NEGATIVE (NEGATIVE); NITRITE,URINE NEGATIVE (NEGATIVE); OCCULT BLOOD,URINE SMALL (NEGATIVE); PROTEIN,URINE >=300 mg/dL (NEGATIVE); UROBILINOGEN,URINE 0.2 EU/dL (<2.0)
[2023-05-19 19:25] VITALS: BP 150/103
[2023-05-19 19:41] LABS: APPEARANCE,URINE CLOUDY; BACTERIA,URINE FEW (NEGATIVE); EPITHELIAL CELLS,URINE RARE (NONE-FEW); RBC,URINE 0-2 (0-2/HPF); WBC,URINE TO NUMEROUS TO COUNT (0-5/HPF)
== END 2023-05-19 19:25 | disposition home or self-care (01) ==
LOC: MW.ED 15:14
DX: R11.2 Nausea with vomiting, unspecified (principal); I10 Essential (primary) hypertension; E10.9 Type 1 diabetes mellitus without complications; Z88.1 Allergy status to other antibiotic agents; Z91.013 Allergy to seafood; Z79.4 Long term (current) use of insulin; Z79.899 Other long term (current) drug therapy; Z75.8 Other problems related to medical facilities and other health care
CPT/HCPCS: 36415; 80053; 81001; 83690; 85025; 87086; 96361; 96374; 96375; 96376; 99284; J1200; J1885; J2405; J3490; J7030

== ENCOUNTER 2023-05-21 05:03 | Emergency (ER) | payer MEDICAID ==
[2023-05-21] MEDS: diphenhydrAMINE 50 MG/ML SDV IVPUSH ONE ×2 (05:49→06:51)
[2023-05-21] MEDS: Sodium Chloride 0.9% 1,000 ML IV ONE (05:49)
[2023-05-21] MEDS: Metoclopramide 10 MG/2 ML SDV IVPUSH ONE (05:50)
[2023-05-21] MEDS: Famotidine 20 MG/2 ML SDV IVPUSH ONE (05:51)
[2023-05-21] MEDS: Sodium Chloride 0.9% 2.5 ML Syringe FLUSH PRN (05:51)
[2023-05-21] MEDS: Sodium Chloride 0.9% 10 ML Syringe FLUSH PRN (05:52)
[2023-05-21 05:53] LABS: BASOPHILS ABSOLUTE AUTO 0.02 K/uL (0.00-0.20); BASOPHILS PERCENT AUTO 0.3 % (0.0-1.0); EOSINOPHILS ABSOLUTE AUTO 0.15 K/uL (0.00-0.45); EOSINOPHILS PERCENT AUTO 2.4 % (0.0-6.0); HEMATOCRIT 31.4 % (42.0-52.0); HEMOGLOBIN 10.6 g/dL (14.0-18.0); IMMATURE GRAN ABSOLUTE AUTO 0.01 K/uL (0.00-0.05); IMMATURE GRAN PERCENT AUTO 0.2 % (0.0-0.4); LYMPHOCYTES ABSOLUTE AUTO 1.34 K/uL (1.00-4.80); LYMPHOCYTES PERCENT AUTO 21.2 % (24.0-44.0); MEAN CORPUSCULAR HGB CONC 33.8 g/dL (32.0-36.0); MEAN CORPUSCULAR VOLUME 85.8 fL (83.0-99.0); MONOCYTES ABSOLUTE AUTO 0.29 K/uL (0.00-0.80); MONOCYTES PERCENT AUTO 4.6 % (0.0-8.0); NEUTROPHILS ABSOLUTE AUTO 4.51 K/uL (1.80-7.70); NEUTROPHILS PERCENT AUTO 71.3 % (41.0-71.0); PLATELET COUNT,PLT 203 K/uL (150-400); RED BLOOD CELL COUNT 3.66 M/uL (4.52-5.90); WHITE BLOOD CELL COUNT,WBC 6.32 K/uL (3.9-11.3)
[2023-05-21 06:26] LABS: A/G RATIO 0.4 (0.9-1.6); ALANINE AMINOTRANSFERASE,ALT 16 IU/L (14-63); ALBUMIN 1.5 g/dL (3.4-5.0); ALKALINE PHOSPHATASE 96 U/L (46-116); ASPARTATE AMNIOTRANSFERASE,AST 17 IU/L (15-37); BILIRUBIN TOTAL 0.2 mg/dL (0.2-1.0); BLOOD UREA NITROGEN,BUN 17 mg/dL (7.0-18.0); CALCIUM 8.6 mg/dL (8.5-10.1); CARBON DIOXIDE,CO2 25.8 mmol/L (21.0-32.0); CHLORIDE,CL 113 mmol/L (98-107); CREATININE 1.8 mg/dL (0.8-1.3); EST CRCL DRUG DOSING (CG) 48.14 mL/min; ESTIMATED GFR 53 mL/min (>60); GLUCOSE RANDOM 108 mg/dL (74-106); LIPASE 32 U/L (16-77); POTASSIUM,K 4.2 mmol/L (3.5-5.1); PROTEIN TOTAL,TP 5.3 g/dL (6.4-8.2); SODIUM,NA 146 mmol/L (136-148)
[2023-05-21] MEDS: droPERidol 5 MG/2 ML SDV IVPUSH ONE (06:51)
[2023-05-21 08:10] VITALS: BP 143/100; PULSE 85
== END 2023-05-21 08:15 | disposition home or self-care (01) ==
LOC: MW.ED 05:03
DX: K52.9 Noninfective gastroenteritis and colitis, unspecified (principal); I10 Essential (primary) hypertension; E10.9 Type 1 diabetes mellitus without complications; Z88.0 Allergy status to penicillin; Z91.013 Allergy to seafood; Z79.899 Other long term (current) drug therapy
CPT/HCPCS: 36415; 80053; 82947; 83690; 83735; 84484; 85025; 93005; 96361; 96374; 96375; 96376; 99284; J1200; J1790; J2765; J3490; J7030; 93010

== ENCOUNTER 2023-05-22 17:40 | Emergency (ER) | payer MEDICAID ==
[2023-05-22] MEDS: Diphtheria,Pertussis(Acell),Tetanus Vaccine 0.5 ML Syringe IM ONE (19:07)
[2023-05-22 19:19] VITALS: BP 179/119; PULSE 88
== END 2023-05-22 19:17 | disposition home or self-care (01) ==
LOC: MW.ED 17:40
DX: S91.204A Unspecified open wound of right lesser toe(s) with damage to nail, initial encounter (principal); E10.43 Type 1 diabetes mellitus with diabetic autonomic (poly)neuropathy; K31.84 Gastroparesis; I10 Essential (primary) hypertension; Z79.899 Other long term (current) drug therapy; Z75.8 Other problems related to medical facilities and other health care; Z23 Encounter for immunization; W26.8XXA Contact with other sharp object(s), not elsewhere classified, initial encounter
CPT/HCPCS: 90471; 90715; 99283; 99283-25

== ENCOUNTER 2023-05-24 10:18 | Emergency (ER) | payer MEDICAID ==
[2023-05-24 11:08] LABS: BASOPHILS ABSOLUTE AUTO 0.02 K/uL (0.00-0.20); BASOPHILS PERCENT AUTO 0.4 % (0.0-1.0); EOSINOPHILS ABSOLUTE AUTO 0.14 K/uL (0.00-0.45); EOSINOPHILS PERCENT AUTO 2.5 % (0.0-6.0); HEMATOCRIT 30.3 % (42.0-52.0); HEMOGLOBIN 10.5 g/dL (14.0-18.0); IMMATURE GRAN ABSOLUTE AUTO 0.01 K/uL (0.00-0.05); IMMATURE GRAN PERCENT AUTO 0.2 % (0.0-0.4); LYMPHOCYTES ABSOLUTE AUTO 1.75 K/uL (1.00-4.80); LYMPHOCYTES PERCENT AUTO 31.8 % (24.0-44.0); MEAN CORPUSCULAR HEMOGLOBIN 29.5 pg (28.0-32.0); MEAN CORPUSCULAR HGB CONC 34.7 g/dL (32.0-36.0); MEAN CORPUSCULAR VOLUME 85.1 fL (83.0-99.0); MEAN PLATELET VOLUME 9.1 fL (9.4-12.4); MONOCYTES PERCENT AUTO 3.6 % (0.0-8.0); NEUTROPHILS ABSOLUTE AUTO 3.38 K/uL (1.80-7.70); NEUTROPHILS PERCENT AUTO 61.5 % (41.0-71.0); PLATELET COUNT,PLT 208 K/uL (150-400); RED BLOOD CELL COUNT 3.56 M/uL (4.52-5.90)
[2023-05-24] MEDS: Sodium Chloride 0.9% 2.5 ML Syringe FLUSH PRN (11:09)
[2023-05-24] MEDS: Famotidine 20 MG/2 ML SDV IVPUSH ONE (11:09)
[2023-05-24] MEDS: Sodium Chloride 0.9% 1,000 ML IV ONE (11:09)
[2023-05-24] MEDS: Sodium Chloride 0.9% 10 ML Syringe FLUSH PRN (11:09)
[2023-05-24] MEDS: Ondansetron 4 MG/2 ML SDV IVPUSH ONE ×2 (11:09→12:13)
[2023-05-24] MEDS: diphenhydrAMINE 50 MG/ML SDV IVPUSH ONE (11:09)
[2023-05-24 11:39] LABS: A/G RATIO 0.4 (0.9-1.6); ALANINE AMINOTRANSFERASE,ALT 12 IU/L (14-63); ALBUMIN 1.4 g/dL (3.4-5.0); ALKALINE PHOSPHATASE 90 U/L (46-116); ASPARTATE AMNIOTRANSFERASE,AST 14 IU/L (15-37); BILIRUBIN TOTAL 0.2 mg/dL (0.2-1.0); BLOOD UREA NITROGEN,BUN 16 mg/dL (7.0-18.0); CALCIUM 8.5 mg/dL (8.5-10.1); CARBON DIOXIDE,CO2 25.7 mmol/L (21.0-32.0); CHLORIDE,CL 112 mmol/L (98-107); CREATININE 1.8 mg/dL (0.8-1.3); GLUCOSE RANDOM 153 mg/dL (74-106); POTASSIUM,K 4.3 mmol/L (3.5-5.1); PROTEIN TOTAL,TP 5.1 g/dL (6.4-8.2); SODIUM,NA 143 mmol/L (136-148)
[2023-05-24 11:40] LABS: ESTIMATED GFR 53 mL/min (>60)
[2023-05-24 11:46] LABS: CORONAVIRUS COVID-19 NAA NEGATIVE (NEGATIVE); INFLUENZA A NAA NEGATIVE (NEGATIVE); INFLUENZA B NAA NEGATIVE (NEGATIVE)
[2023-05-24 12:17] VITALS: BP 182/102; PULSE 90
== END 2023-05-24 12:38 | disposition home or self-care (01) ==
LOC: MW.ED 10:18
DX: R11.2 Nausea with vomiting, unspecified (principal); I10 Essential (primary) hypertension; E10.9 Type 1 diabetes mellitus without complications; Z75.8 Other problems related to medical facilities and other health care; Z88.0 Allergy status to penicillin; Z91.013 Allergy to seafood; Z79.4 Long term (current) use of insulin; Z79.899 Other long term (current) drug therapy
CPT/HCPCS: 0240U; 36415; 80053; 85025; 96361; 96374; 96375; 96376; 99284; J1200; J2405; J3490; J7030

== ENCOUNTER 2023-05-27 01:56 | Emergency (ER) | payer MEDICAID ==
[2023-05-27] MEDS: Sodium Chloride 0.9% 1,000 ML IV ONE (02:19)
[2023-05-27] MEDS: Sodium Chloride 0.9% 2.5 ML Syringe FLUSH PRN (02:19)
[2023-05-27] MEDS: Sodium Chloride 0.9% 10 ML Syringe FLUSH PRN (02:19)
[2023-05-27] MEDS: diphenhydrAMINE 50 MG/ML SDV IVPUSH ONE ×2 (02:19→02:58)
[2023-05-27] MEDS: droPERidol 5 MG/2 ML SDV IVPUSH ONE (02:19)
[2023-05-27] MEDS: Famotidine 20 MG/2 ML SDV IVPUSH ONE (02:19)
[2023-05-27 02:37] LABS: BASOPHILS ABSOLUTE AUTO 0.01 K/uL (0.00-0.20); BASOPHILS PERCENT AUTO 0.1 % (0.0-1.0); EOSINOPHILS ABSOLUTE AUTO 0.12 K/uL (0.00-0.45); EOSINOPHILS PERCENT AUTO 1.7 % (0.0-6.0); HEMATOCRIT 27.9 % (42.0-52.0); HEMOGLOBIN 9.5 g/dL (14.0-18.0); IMMATURE GRAN ABSOLUTE AUTO 0.01 K/uL (0.00-0.05); IMMATURE GRAN PERCENT AUTO 0.1 % (0.0-0.4); LYMPHOCYTES ABSOLUTE AUTO 1.51 K/uL (1.00-4.80); LYMPHOCYTES PERCENT AUTO 21.9 % (24.0-44.0); MEAN CORPUSCULAR HEMOGLOBIN 29.1 pg (28.0-32.0); MEAN CORPUSCULAR HGB CONC 34.1 g/dL (32.0-36.0); MEAN CORPUSCULAR VOLUME 85.6 fL (83.0-99.0); MONOCYTES ABSOLUTE AUTO 0.23 K/uL (0.00-0.80); MONOCYTES PERCENT AUTO 3.3 % (0.0-8.0); NEUTROPHILS PERCENT AUTO 72.9 % (41.0-71.0); PLATELET COUNT,PLT 197 K/uL (150-400); RED BLOOD CELL COUNT 3.26 M/uL (4.52-5.90); WHITE BLOOD CELL COUNT,WBC 6.88 K/uL (3.9-11.3)
[2023-05-27] MEDS: Metoclopramide 10 MG/2 ML SDV IVPUSH ONE (02:58)
[2023-05-27 03:04] LABS: A/G RATIO 0.3 (0.9-1.6); ALANINE AMINOTRANSFERASE,ALT 15 IU/L (14-63); ALBUMIN 1.2 g/dL (3.4-5.0); ALKALINE PHOSPHATASE 110 U/L (46-116); ASPARTATE AMNIOTRANSFERASE,AST 22 IU/L (15-37); BILIRUBIN TOTAL 0.1 mg/dL (0.2-1.0); BLOOD UREA NITROGEN,BUN 15 mg/dL (7.0-18.0); CALCIUM 8.1 mg/dL (8.5-10.1); CARBON DIOXIDE,CO2 24.2 mmol/L (21.0-32.0); CHLORIDE,CL 109 mmol/L (98-107); CREATININE 1.9 mg/dL (0.8-1.3); GLUCOSE RANDOM 137 mg/dL (74-106); LIPASE 17 U/L (16-77); MAGNESIUM 1.9 mg/dL (1.8-2.4); SODIUM,NA 141 mmol/L (136-148)
[2023-05-27 03:05] LABS: ESTIMATED GFR 50 mL/min (>60)
[2023-05-27] MEDS: Lactated Ringers 1,000 ML IV ONE (03:13)
[2023-05-27 04:11] VITALS: PULSE 93
[2023-05-27 04:33] VITALS: BP 167/101
== END 2023-05-27 04:35 | disposition home or self-care (01) ==
LOC: MW.ED 01:56
DX: E10.43 Type 1 diabetes mellitus with diabetic autonomic (poly)neuropathy (principal); K31.84 Gastroparesis; I10 Essential (primary) hypertension; Z88.0 Allergy status to penicillin; Z91.013 Allergy to seafood; Z79.899 Other long term (current) drug therapy
CPT/HCPCS: 36415; 80053; 82947; 83690; 83735; 84484; 85025; 93005; 96361; 96374; 96375; 96376; 99284; J1200; J1790; J2765; J3490; J7030; J7120

== ENCOUNTER 2023-05-29 12:31 | Inpatient (IN) | payer MEDICAID ==
[2023-05-29 12:56] LABS: BASE EXCESS VENOUS -1.9 (-2.0-3.0); BICARBONATE,VENOUS 25 mEQ/mL (22-28); PCO2 VENOUS 52 mmHG (41-51); PH,VENOUS 7.29 (7.31-7.41)
[2023-05-29 12:58] LABS: BASOPHILS ABSOLUTE AUTO 0.04 K/uL (0.00-0.20); BASOPHILS PERCENT AUTO 0.7 % (0.0-1.0); EOSINOPHILS PERCENT AUTO 3.5 % (0.0-6.0); HEMATOCRIT 31.5 % (42.0-52.0); HEMOGLOBIN 10.6 g/dL (14.0-18.0); IMMATURE GRAN ABSOLUTE AUTO 0.01 K/uL (0.00-0.05); IMMATURE GRAN PERCENT AUTO 0.2 % (0.0-0.4); LYMPHOCYTES ABSOLUTE AUTO 2.14 K/uL (1.00-4.80); LYMPHOCYTES PERCENT AUTO 37.6 % (24.0-44.0); MEAN CORPUSCULAR HEMOGLOBIN 29.2 pg (28.0-32.0); MEAN CORPUSCULAR HGB CONC 33.7 g/dL (32.0-36.0); MEAN CORPUSCULAR VOLUME 86.8 fL (83.0-99.0); MEAN PLATELET VOLUME 9.3 fL (9.4-12.4); MONOCYTES ABSOLUTE AUTO 0.21 K/uL (0.00-0.80); MONOCYTES PERCENT AUTO 3.7 % (0.0-8.0); NEUTROPHILS ABSOLUTE AUTO 3.09 K/uL (1.80-7.70); NEUTROPHILS PERCENT AUTO 54.3 % (41.0-71.0); PLATELET COUNT,PLT 208 K/uL (150-400); PO2 VENOUS < 30 mmHG (80-100); RED BLOOD CELL COUNT 3.63 M/uL (4.52-5.90); WHITE BLOOD CELL COUNT,WBC 5.69 K/uL (3.9-11.3)
[2023-05-29] MEDS: Ketorolac 30 MG/ML SDV IVPUSH STA (13:17)
[2023-05-29] MEDS: Sodium Chloride 0.9% 1,000 ML IV STA ×2 (13:17→13:55)
[2023-05-29] MEDS: Metoclopramide 10 MG/2 ML SDV IVPUSH STA (13:17)
[2023-05-29] MEDS: diphenhydrAMINE 50 MG/ML SDV IVPUSH STA ×3 (13:17→17:51)
[2023-05-29] MEDS: Sodium Chloride 0.9% 10 ML Syringe FLUSH PRN (13:18)
[2023-05-29] MEDS: Sodium Chloride 0.9% 2.5 ML Syringe FLUSH PRN (13:18)
[2023-05-29 13:25] LABS: A/G RATIO 0.3 (0.9-1.6); ALBUMIN 1.1 g/dL (3.4-5.0); BILIRUBIN TOTAL 0.1 mg/dL (0.2-1.0); CALCIUM 8.7 mg/dL (8.5-10.1); CARBON DIOXIDE,CO2 26.9 mmol/L (21.0-32.0); EST CRCL DRUG DOSING (CG) 45.28 mL/min; POTASSIUM,K 4.4 mmol/L (3.5-5.1); PROTEIN TOTAL,TP 5.2 g/dL (6.4-8.2)
[2023-05-29] MEDS: hydrALAZINE 20 MG/ML SDV IVPUSH STA (13:55)
[2023-05-29] MEDS: Promethazine 25 MG/ML SDV IM STA (15:11)
[2023-05-29] MEDS: droPERidol 5 MG/2 ML SDV IVPUSH STA (16:28)
[2023-05-29] MEDS ORDERED: 50% Dextrose in Water 50 ML Syringe IVPUSH PRN (19:06)
[2023-05-29] MEDS ORDERED: Glucagon,Human Recombinant 1 MG Vial IM PRN (19:06)
[2023-05-29] MEDS: Sodium Chloride 0.9% 1,000 ML IV SCH (19:53)
[2023-05-29] MEDS: Ondansetron 4 MG/2 ML SDV IVPUSH PRN (19:53)
[2023-05-29] MEDS: Enoxaparin 40 MG/0.4 ML Syringe SUBCUT SCH (21:01)
[2023-05-29] MEDS: Polyethylene Glycol 3350 Powder 17 GM Packet PO SCH (21:01)
[2023-05-29] MEDS: traZODone 50 MG Tab PO SCH (21:01)
[2023-05-29] MEDS: Buprenorphine/Naloxone 8-2 MG Tab.SL SL SCH (21:02)
[2023-05-29] MEDS: Insulin Aspart 100 Units/ML 3 ML Pen SUBCUT SCH (21:04)
[2023-05-29] MEDS: Losartan 50 MG Tab PO ONE (22:33)
[2023-05-29] MEDS: diphenhydrAMINE 50 MG/ML SDV IVPUSH PRN (22:33)
[2023-05-29] MEDS: droPERidol 5 MG/2 ML SDV IVPUSH PRN (22:44)
[2023-05-30] MEDS ORDERED: Cefepime 2 GM in Sodium Chloride 0.9% 50 ML IV SCH (01:00)
[2023-05-30 01:25] LABS: BILIRUBIN,URINE NEGATIVE (NEGATIVE); COLOR,URINE YELLOW; GLUCOSE,URINE >=1000 mg/dL (NEGATIVE); KETONES,URINE TRACE mg/dL (NEGATIVE); LEUKOCYTE ESTERASE,URINE NEGATIVE (NEGATIVE); NITRITE,URINE NEGATIVE (NEGATIVE); OCCULT BLOOD,URINE SMALL (NEGATIVE); PH,URINE 6.5 (5.0-8.0); PROTEIN,URINE >=300 mg/dL (NEGATIVE); UROBILINOGEN,URINE 0.2 EU/dL (<2.0)
[2023-05-30] MEDS: Sodium Chloride 0.9% 1,000 ML IV ONE ×2 (01:29→03:22)
[2023-05-30 01:31] LABS: APPEARANCE,URINE HAZY
[2023-05-30 01:32] LABS: BACTERIA,URINE 1+ (NEGATIVE); EPITHELIAL CELLS,URINE RARE (NONE-FEW)
[2023-05-30 02:17] LABS: LACTIC ACID 1.2 mmol/L (0.4-2.0)
[2023-05-30] MEDS: Cefepime 1 GM in Sodium Chloride 0.9% 50 ML IV SCH (02:18)
[2023-05-30 06:38] LABS: BASOPHILS ABSOLUTE AUTO 0.02 K/uL (0.00-0.20); BASOPHILS PERCENT AUTO 0.3 % (0.0-1.0); HEMATOCRIT 28.1 % (42.0-52.0); HEMOGLOBIN 9.3 g/dL (14.0-18.0); IMMATURE GRAN ABSOLUTE AUTO 0.03 K/uL (0.00-0.05); IMMATURE GRAN PERCENT AUTO 0.4 % (0.0-0.4); LYMPHOCYTES ABSOLUTE AUTO 0.98 K/uL (1.00-4.80); LYMPHOCYTES PERCENT AUTO 13.6 % (24.0-44.0); MEAN CORPUSCULAR HEMOGLOBIN 29.4 pg (28.0-32.0); MEAN CORPUSCULAR HGB CONC 33.1 g/dL (32.0-36.0); MEAN CORPUSCULAR VOLUME 88.9 fL (83.0-99.0); MEAN PLATELET VOLUME 9.4 fL (9.4-12.4); MONOCYTES ABSOLUTE AUTO 0.15 K/uL (0.00-0.80); MONOCYTES PERCENT AUTO 2.1 % (0.0-8.0); NEUTROPHILS ABSOLUTE AUTO 6.04 K/uL (1.80-7.70); NEUTROPHILS PERCENT AUTO 83.6 % (41.0-71.0); PLATELET COUNT,PLT 208 K/uL (150-400); RED BLOOD CELL COUNT 3.16 M/uL (4.52-5.90); WHITE BLOOD CELL COUNT,WBC 7.22 K/uL (3.9-11.3)
[2023-05-30 06:59] LABS: A/G RATIO 0.3 (0.9-1.6); ALBUMIN 1.1 g/dL (3.4-5.0); BILIRUBIN TOTAL 0.2 mg/dL (0.2-1.0); CALCIUM 7.8 mg/dL (8.5-10.1); CARBON DIOXIDE,CO2 24.1 mmol/L (21.0-32.0); CREATININE 2.1 mg/dL (0.8-1.3); EST CRCL DRUG DOSING (CG) 43.12 mL/min; MAGNESIUM 1.9 mg/dL (1.8-2.4); POTASSIUM,K 4.4 mmol/L (3.5-5.1); PROTEIN TOTAL,TP 4.6 g/dL (6.4-8.2)
[2023-05-30] MEDS: Losartan 50 MG Tab PO SCH (08:31)
[2023-05-30] MEDS: Buprenorphine/Naloxone 8-2 MG Tab.SL SL SCH (09:11)
[2023-05-30] MEDS: Labetalol 100 MG/20 ML MDV IVPUSH ONE (10:16)
[2023-05-30] MEDS: Sucralfate Suspension 1 GM/10 ML Cup PO SCH (12:30)
[2023-05-30] MEDS: Pantoprazole 40 MG in Sodium Chloride 0.9% 10 ML IVPUSH SCH (12:31)
[2023-05-30] MEDS: Piperacillin/Tazobactam 4.5 GM in Sodium Chloride 0.9% 100 ML IV ONE (12:32)
[2023-05-30] MEDS: Lactated Ringers 1,000 ML IV ONE (12:32)
[2023-05-30] MEDS: Bisacodyl 10 MG Supp RECTAL SCH (12:32)
[2023-05-30] MEDS: Insulin Glargine,Hum.Rec.Anlog 100 UNIT/ML 3 ML Pen SUBCUT SCH ×2 (14:07→17:07)
[2023-05-30] MEDS: Lactated Ringers 1,000 ML IV SCH (14:46)
[2023-05-30] MEDS ORDERED: Insulin Glargine,Hum.Rec.Anlog 100 UNIT/ML 3 ML Pen SUBCUT SCH (18:00)
[2023-05-30] MEDS: Piperacillin/Tazobactam 4.5 GM in Sodium Chloride 0.9% 100 ML IV SCH (19:31)
[2023-05-30 21:58] LABS: CALCIUM 8.2 mg/dL (8.5-10.1); CARBON DIOXIDE,CO2 23.6 mmol/L (21.0-32.0); CREATININE 2.4 mg/dL (0.8-1.3); EST CRCL DRUG DOSING (CG) 37.73 mL/min; POTASSIUM,K 4.1 mmol/L (3.5-5.1)
[2023-05-31] MEDS: Acetaminophen 325 MG Tab PO PRN (01:36)
[2023-05-31] MEDS ORDERED: HYDROmorphone 0.5 MG/0.5 ML Syringe IVPUSH PRN (01:48)
[2023-05-31 06:11] LABS: BASOPHILS ABSOLUTE AUTO 0.02 K/uL (0.00-0.20); BASOPHILS PERCENT AUTO 0.3 % (0.0-1.0); EOSINOPHILS ABSOLUTE AUTO 0.01 K/uL (0.00-0.45); EOSINOPHILS PERCENT AUTO 0.1 % (0.0-6.0); HEMATOCRIT 21.5 % (42.0-52.0); HEMOGLOBIN 7.2 g/dL (14.0-18.0); IMMATURE GRAN ABSOLUTE AUTO 0.02 K/uL (0.00-0.05); IMMATURE GRAN PERCENT AUTO 0.3 % (0.0-0.4); LYMPHOCYTES ABSOLUTE AUTO 1.64 K/uL (1.00-4.80); LYMPHOCYTES PERCENT AUTO 22.2 % (24.0-44.0); MEAN CORPUSCULAR HEMOGLOBIN 29.3 pg (28.0-32.0); MEAN CORPUSCULAR HGB CONC 33.5 g/dL (32.0-36.0); MEAN CORPUSCULAR VOLUME 87.4 fL (83.0-99.0); MEAN PLATELET VOLUME 9.4 fL (9.4-12.4); MONOCYTES PERCENT AUTO 4.1 % (0.0-8.0); NEUTROPHILS ABSOLUTE AUTO 5.41 K/uL (1.80-7.70); PLATELET COUNT,PLT 188 K/uL (150-400); RED BLOOD CELL COUNT 2.46 M/uL (4.52-5.90)
[2023-05-31 06:53] LABS: A/G RATIO 0.3 (0.9-1.6); ALBUMIN 0.9 g/dL (3.4-5.0); BILIRUBIN TOTAL 0.1 mg/dL (0.2-1.0); CALCIUM 7.8 mg/dL (8.5-10.1); CREATININE 2.3 mg/dL (0.8-1.3); EST CRCL DRUG DOSING (CG) 39.37 mL/min; POTASSIUM,K 3.9 mmol/L (3.5-5.1); PROTEIN TOTAL,TP 3.7 g/dL (6.4-8.2)
[2023-05-31] MEDS: Insulin Glargine,Hum.Rec.Anlog 100 UNIT/ML 3 ML Pen SUBCUT SCH (09:17)
[2023-05-31] MEDS: Metoclopramide 10 MG/2 ML SDV IVPUSH PRN (16:42)
[2023-06-01] MEDS: Furosemide 20 MG/2 ML VIAL IVPUSH ONE (05:21)
[2023-06-01 06:08] LABS: BASOPHILS ABSOLUTE AUTO 0.02 K/uL (0.00-0.20); BASOPHILS PERCENT AUTO 0.2 % (0.0-1.0); HEMATOCRIT 26.9 % (42.0-52.0); IMMATURE GRAN ABSOLUTE AUTO 0.06 K/uL (0.00-0.05); IMMATURE GRAN PERCENT AUTO 0.6 % (0.0-0.4); LYMPHOCYTES PERCENT AUTO 17.4 % (24.0-44.0); MEAN CORPUSCULAR HEMOGLOBIN 29.4 pg (28.0-32.0); MEAN CORPUSCULAR HGB CONC 33.5 g/dL (32.0-36.0); MEAN CORPUSCULAR VOLUME 87.9 fL (83.0-99.0); MONOCYTES PERCENT AUTO 4.1 % (0.0-8.0); NEUTROPHILS ABSOLUTE AUTO 7.59 K/uL (1.80-7.70); NEUTROPHILS PERCENT AUTO 77.7 % (41.0-71.0); PLATELET COUNT,PLT 257 K/uL (150-400); RED BLOOD CELL COUNT 3.06 M/uL (4.52-5.90); WHITE BLOOD CELL COUNT,WBC 9.77 K/uL (3.9-11.3)
[2023-06-01 06:35] LABS: A/G RATIO 0.4 (0.9-1.6); ALBUMIN 1.2 g/dL (3.4-5.0); BILIRUBIN TOTAL 0.3 mg/dL (0.2-1.0); CALCIUM 8.3 mg/dL (8.5-10.1); CARBON DIOXIDE,CO2 19.4 mmol/L (21.0-32.0); CREATININE 2.8 mg/dL (0.8-1.3); EST CRCL DRUG DOSING (CG) 32.34 mL/min; POTASSIUM,K 4.1 mmol/L (3.5-5.1); PROTEIN TOTAL,TP 4.6 g/dL (6.4-8.2)
[2023-06-01] MEDS: Labetalol 100 MG/20 ML MDV IVPUSH ONE (10:22)
[2023-06-01] MEDS: diphenhydrAMINE 50 MG/ML SDV IVPUSH ONE (10:24)
[2023-06-01 14:15] VITALS: BP 137/89; PULSE 105
== END 2023-06-01 12:30 | DRG 683 ==
LOC: MW.ED 12:31 → MW.MS 17:49 → OBSVTOIN 05-30 11:49 → MW.MS 05-30 17:31
PROVIDERS: ADMIT Family Medicine; ATTEND Family Medicine
DX: N17.9 Acute kidney failure, unspecified (principal); R11.2 Nausea with vomiting, unspecified; I10 Essential (primary) hypertension; E10.9 Type 1 diabetes mellitus without complications; R18.8 Other ascites; R64 Cachexia; E10.43 Type 1 diabetes mellitus with diabetic autonomic (poly)neuropathy; K31.84 Gastroparesis; Z75.8 Other problems related to medical facilities and other health care; K59.00 Constipation, unspecified; E10.40 Type 1 diabetes mellitus with diabetic neuropathy, unspecified; H54.7 Unspecified visual loss; F41.9 Anxiety disorder, unspecified; F32.A Depression, unspecified; K80.20 Calculus of gallbladder without cholecystitis without obstruction; E10.29 Type 1 diabetes mellitus with other diabetic kidney complication; K82.8 Other specified diseases of gallbladder; F11.11 Opioid abuse, in remission; E10.21 Type 1 diabetes mellitus with diabetic nephropathy; E10.22 Type 1 diabetes mellitus with diabetic chronic kidney disease; N18.9 Chronic kidney disease, unspecified; I12.9 Hypertensive chronic kidney disease with stage 1 through stage 4 chronic kidney disease, or unspecified chronic kidney disease; Z68.20 Body mass index [BMI] 20.0-20.9, adult; Z88.0 Allergy status to penicillin; Z91.013 Allergy to seafood; Z79.4 Long term (current) use of insulin; Z79.899 Other long term (current) drug therapy; Z98.890 Other specified postprocedural states
CPT/HCPCS: 36415 ×2; 51701; 74177; 80053 ×2; 81001; 82009; 82803; 82947 ×2; 83605; 83690; 83735 ×2; 84100; 85025 ×2; 87040 ×2; 96361; 96372; 96374; 96375; 96376; 99285; A9270 ×4; J0360; J0574 ×2; J0692 ×2; J1200 ×7; J1650; J1790 ×3; J1815; J1885; J2405 ×2; J2550; J2765; J3490 ×3; J7030 ×6; 51702; 80048; 96365; 99284; C9113; G0378; J1921; J1940; J2543; J7120

== ENCOUNTER 2023-06-27 15:31 | Emergency (ER) | payer MEDICAID ==
[2023-06-27] MEDS: Sodium Chloride 0.9% 1,000 ML IV STA (16:49)
[2023-06-27] MEDS: diphenhydrAMINE 50 MG/ML SDV IVPUSH ONE (16:49)
[2023-06-27] MEDS: Sodium Chloride 0.9% 2.5 ML Syringe FLUSH PRN (16:50)
[2023-06-27] MEDS: Metoclopramide 10 MG/2 ML SDV IVPUSH ONE (16:50)
[2023-06-27] MEDS: Sodium Chloride 0.9% 10 ML Syringe FLUSH PRN (16:50)
[2023-06-27 17:12] LABS: BASE EXCESS VENOUS 4.2 (-2.0-3.0); PH,VENOUS 7.36 (7.31-7.41)
[2023-06-27 17:13] LABS: BASOPHILS ABSOLUTE AUTO 0.03 K/uL (0.00-0.20); BASOPHILS PERCENT AUTO 0.6 % (0.0-1.0); EOSINOPHILS ABSOLUTE AUTO 0.19 K/uL (0.00-0.45); EOSINOPHILS PERCENT AUTO 3.7 % (0.0-6.0); HEMATOCRIT 30.3 % (42.0-52.0); HEMOGLOBIN 10.1 g/dL (14.0-18.0); IMMATURE GRAN ABSOLUTE AUTO 0.01 K/uL (0.00-0.05); IMMATURE GRAN PERCENT AUTO 0.2 % (0.0-0.4); LYMPHOCYTES ABSOLUTE AUTO 1.37 K/uL (1.00-4.80); MEAN CORPUSCULAR HEMOGLOBIN 28.9 pg (28.0-32.0); MEAN CORPUSCULAR HGB CONC 33.3 g/dL (32.0-36.0); MEAN CORPUSCULAR VOLUME 86.6 fL (83.0-99.0); MEAN PLATELET VOLUME 9.3 fL (9.4-12.4); MONOCYTES ABSOLUTE AUTO 0.19 K/uL (0.00-0.80); MONOCYTES PERCENT AUTO 3.7 % (0.0-8.0); NEUTROPHILS ABSOLUTE AUTO 3.28 K/uL (1.80-7.70); NEUTROPHILS PERCENT AUTO 64.8 % (41.0-71.0); PLATELET COUNT,PLT 260 K/uL (150-400); WHITE BLOOD CELL COUNT,WBC 5.07 K/uL (3.9-11.3)
[2023-06-27 17:46] LABS: A/G RATIO 0.3 (0.9-1.6); ALBUMIN 1.5 g/dL (3.4-5.0); BILIRUBIN TOTAL 0.2 mg/dL (0.2-1.0); CALCIUM 8.6 mg/dL (8.5-10.1); CARBON DIOXIDE,CO2 29.5 mmol/L (21.0-32.0); CREATININE 2.2 mg/dL (0.8-1.3); EST CRCL DRUG DOSING (CG) 38.48 mL/min; POTASSIUM,K 4.2 mmol/L (3.5-5.1); PROTEIN TOTAL,TP 6.1 g/dL (6.4-8.2)
[2023-06-27] MEDS: Losartan 50 MG Tab PO ONE (18:45)
[2023-06-27 19:19] VITALS: BP 184/105; PULSE 78
== END 2023-06-27 19:19 | disposition home or self-care (01) ==
LOC: MW.ED 15:31
DX: E10.43 Type 1 diabetes mellitus with diabetic autonomic (poly)neuropathy (principal); K31.84 Gastroparesis; Z88.0 Allergy status to penicillin; Z91.013 Allergy to seafood; Z79.4 Long term (current) use of insulin; Z79.899 Other long term (current) drug therapy; Z86.16 Personal history of COVID-19; Z75.8 Other problems related to medical facilities and other health care
CPT/HCPCS: 36415; 80053; 82803; 83690; 85025; 96361; 96374; 96375; 99284; A9270; J1200; J2765; J3490; J7030

== ENCOUNTER 2023-06-28 20:57 | Emergency (ER) | payer MEDICAID ==
[2023-06-28] MEDS: Sodium Chloride 0.9% 10 ML Syringe FLUSH PRN (21:34)
[2023-06-28] MEDS: Sodium Chloride 0.9% 1,000 ML IV ONE (21:34)
[2023-06-28] MEDS: diphenhydrAMINE 50 MG/ML SDV IVPUSH ONE (21:34)
[2023-06-28] MEDS: Sodium Chloride 0.9% 2.5 ML Syringe FLUSH PRN (21:34)
[2023-06-28 21:56] LABS: BASOPHILS ABSOLUTE AUTO 0.06 K/uL (0.00-0.20); EOSINOPHILS ABSOLUTE AUTO 0.15 K/uL (0.00-0.45); EOSINOPHILS PERCENT AUTO 2.6 % (0.0-6.0); IMMATURE GRAN ABSOLUTE AUTO 0.01 K/uL (0.00-0.05); IMMATURE GRAN PERCENT AUTO 0.2 % (0.0-0.4); LYMPHOCYTES ABSOLUTE AUTO 1.74 K/uL (1.00-4.80); LYMPHOCYTES PERCENT AUTO 30.2 % (24.0-44.0); MEAN CORPUSCULAR HEMOGLOBIN 28.9 pg (28.0-32.0); MEAN CORPUSCULAR HGB CONC 33.3 g/dL (32.0-36.0); MEAN CORPUSCULAR VOLUME 86.7 fL (83.0-99.0); MEAN PLATELET VOLUME 9.1 fL (9.4-12.4); MONOCYTES ABSOLUTE AUTO 0.23 K/uL (0.00-0.80); NEUTROPHILS ABSOLUTE AUTO 3.58 K/uL (1.80-7.70); PLATELET COUNT,PLT 295 K/uL (150-400); RED BLOOD CELL COUNT 3.46 M/uL (4.52-5.90); WHITE BLOOD CELL COUNT,WBC 5.77 K/uL (3.9-11.3)
[2023-06-28 22:09] LABS: INR 0.94 (0.86-1.11)
[2023-06-28 22:19] LABS: ALBUMIN 1.5 g/dL (3.4-5.0); CALCIUM 8.7 mg/dL (8.5-10.1); CARBON DIOXIDE,CO2 28.2 mmol/L (21.0-32.0); CREATININE 2.1 mg/dL (0.8-1.3); EST CRCL DRUG DOSING (CG) 38.79 mL/min; POTASSIUM,K 3.7 mmol/L (3.5-5.1); PROTEIN TOTAL,TP 5.9 g/dL (6.4-8.2)
[2023-06-28 22:20] LABS: A/G RATIO 0.3 (0.9-1.6); BILIRUBIN TOTAL 0.2 mg/dL (0.2-1.0)
[2023-06-28] MEDS: droPERidol 5 MG/2 ML SDV IVPUSH ONE (23:04)
[2023-06-29] MEDS: Sodium Chloride 0.9% 1,000 ML IV ONE (01:15)
[2023-06-29] MEDS: diphenhydrAMINE 50 MG/ML SDV IVPUSH ONE (01:15)
[2023-06-29] MEDS: Ondansetron 4 MG/2 ML SDV IVPUSH ONE (01:23)
[2023-06-29 05:16] VITALS: BP 171/100; PULSE 90
== END 2023-06-29 05:16 | disposition home or self-care (01) ==
LOC: MW.ED 20:57
DX: E10.43 Type 1 diabetes mellitus with diabetic autonomic (poly)neuropathy (principal); K31.84 Gastroparesis; I10 Essential (primary) hypertension; Z75.8 Other problems related to medical facilities and other health care; Z88.1 Allergy status to other antibiotic agents; Z91.013 Allergy to seafood; Z79.899 Other long term (current) drug therapy; Z79.4 Long term (current) use of insulin
CPT/HCPCS: 36415; 80053; 83690; 85025; 85610; 93005; 96361; 96374; 96375; 96376; 99284; J1200; J1790; J2405; J3490; J7030; 93010

== ENCOUNTER 2023-07-02 23:36 | Emergency (ER) | payer MEDICAID ==
[2023-07-03] MEDS: Ondansetron 4 MG/2 ML SDV IVPUSH ONE ×2 (00:01→00:46)
[2023-07-03] MEDS: Sodium Chloride 0.9% 2.5 ML Syringe FLUSH PRN (00:01)
[2023-07-03] MEDS: Sodium Chloride 0.9% 10 ML Syringe FLUSH PRN (00:01)
[2023-07-03] MEDS: Sodium Chloride 0.9% 1,000 ML IV ONE (00:01)
[2023-07-03] MEDS: droPERidol 5 MG/2 ML SDV IVPUSH ONE (00:46)
[2023-07-03] MEDS: diphenhydrAMINE 50 MG/ML SDV IVPUSH ONE (00:46)
[2023-07-03 00:53] LABS: BASOPHILS ABSOLUTE AUTO 0.05 K/uL (0.00-0.20); BASOPHILS PERCENT AUTO 0.8 % (0.0-1.0); EOSINOPHILS ABSOLUTE AUTO 0.24 K/uL (0.00-0.45); EOSINOPHILS PERCENT AUTO 3.8 % (0.0-6.0); HEMATOCRIT 29.8 % (42.0-52.0); HEMOGLOBIN 9.9 g/dL (14.0-18.0); IMMATURE GRAN ABSOLUTE AUTO 0.02 K/uL (0.00-0.05); IMMATURE GRAN PERCENT AUTO 0.3 % (0.0-0.4); LYMPHOCYTES ABSOLUTE AUTO 1.59 K/uL (1.00-4.80); LYMPHOCYTES PERCENT AUTO 25.3 % (24.0-44.0); MEAN CORPUSCULAR HEMOGLOBIN 28.8 pg (28.0-32.0); MEAN CORPUSCULAR HGB CONC 33.2 g/dL (32.0-36.0); MEAN CORPUSCULAR VOLUME 86.6 fL (83.0-99.0); MEAN PLATELET VOLUME 9.9 fL (9.4-12.4); MONOCYTES ABSOLUTE AUTO 0.24 K/uL (0.00-0.80); MONOCYTES PERCENT AUTO 3.8 % (0.0-8.0); NEUTROPHILS ABSOLUTE AUTO 4.14 K/uL (1.80-7.70); PLATELET COUNT,PLT 237 K/uL (150-400); RED BLOOD CELL COUNT 3.44 M/uL (4.52-5.90); WHITE BLOOD CELL COUNT,WBC 6.28 K/uL (3.9-11.3)
[2023-07-03 01:17] LABS: A/G RATIO 0.3 (0.9-1.6); ALBUMIN 1.3 g/dL (3.4-5.0); BILIRUBIN TOTAL 0.2 mg/dL (0.2-1.0); CALCIUM 8.1 mg/dL (8.5-10.1); CREATININE 2.1 mg/dL (0.8-1.3); EST CRCL DRUG DOSING (CG) 40.77 mL/min; POTASSIUM,K 4.2 mmol/L (3.5-5.1); PROTEIN TOTAL,TP 5.1 g/dL (6.4-8.2)
[2023-07-03] MEDS: fentaNYL 50 MCG/ML SDV IVPUSH ONE (01:50)
[2023-07-03 01:53] VITALS: BP 199/104; PULSE 115
== END 2023-07-03 01:53 | disposition home or self-care (01) ==
LOC: MW.ED 23:36
DX: E10.43 Type 1 diabetes mellitus with diabetic autonomic (poly)neuropathy (principal); K31.84 Gastroparesis; I10 Essential (primary) hypertension; Z79.4 Long term (current) use of insulin; Z79.899 Other long term (current) drug therapy; Z88.0 Allergy status to penicillin; Z91.013 Allergy to seafood
CPT/HCPCS: 36415; 80053; 83690; 85025; 96361; 96374; 96375; 96376; 99284; J1200; J1790; J2405; J3010; J3490; J7030

== ENCOUNTER 2023-07-03 07:29 | Observation (INO) | payer MEDICAID ==
[2023-07-03] MEDS: droPERidol 5 MG/2 ML SDV IVPUSH ONE (08:14)
[2023-07-03 08:17] LABS: BASE EXCESS VENOUS -2.2 (-2.0-3.0); PH,VENOUS 7.33 (7.31-7.41)
[2023-07-03] MEDS: Sodium Chloride 0.9% 1,000 ML IV ONE ×2 (08:17→08:23)
[2023-07-03] MEDS: diphenhydrAMINE 50 MG/ML SDV IVPUSH ONE (08:17)
[2023-07-03 08:20] LABS: BASOPHILS ABSOLUTE AUTO 0.03 K/uL (0.00-0.20); BASOPHILS PERCENT AUTO 0.4 % (0.0-1.0); HEMATOCRIT 30.2 % (42.0-52.0); HEMOGLOBIN 10.2 g/dL (14.0-18.0); IMMATURE GRAN ABSOLUTE AUTO 0.02 K/uL (0.00-0.05); IMMATURE GRAN PERCENT AUTO 0.3 % (0.0-0.4); LYMPHOCYTES ABSOLUTE AUTO 0.78 K/uL (1.00-4.80); LYMPHOCYTES PERCENT AUTO 9.9 % (24.0-44.0); MEAN CORPUSCULAR HEMOGLOBIN 29.4 pg (28.0-32.0); MEAN CORPUSCULAR HGB CONC 33.8 g/dL (32.0-36.0); MEAN PLATELET VOLUME 9.4 fL (9.4-12.4); MONOCYTES ABSOLUTE AUTO 0.05 K/uL (0.00-0.80); MONOCYTES PERCENT AUTO 0.6 % (0.0-8.0); NEUTROPHILS ABSOLUTE AUTO 6.99 K/uL (1.80-7.70); NEUTROPHILS PERCENT AUTO 88.8 % (41.0-71.0); PLATELET COUNT,PLT 278 K/uL (150-400); RED BLOOD CELL COUNT 3.47 M/uL (4.52-5.90); WHITE BLOOD CELL COUNT,WBC 7.87 K/uL (3.9-11.3)
[2023-07-03] MEDS: Sodium Chloride 0.9% 10 ML Syringe FLUSH PRN (08:23)
[2023-07-03] MEDS: Sodium Chloride 0.9% 2.5 ML Syringe FLUSH PRN (08:23)
[2023-07-03 08:55] LABS: A/G RATIO 0.4 (0.9-1.6); ALBUMIN 1.5 g/dL (3.4-5.0); BILIRUBIN TOTAL 0.3 mg/dL (0.2-1.0); CALCIUM 8.2 mg/dL (8.5-10.1); CARBON DIOXIDE,CO2 23.2 mmol/L (21.0-32.0); CREATININE 2.3 mg/dL (0.8-1.3); EST CRCL DRUG DOSING (CG) 37.5 mL/min; POTASSIUM,K 4.4 mmol/L (3.5-5.1); PROTEIN TOTAL,TP 5.6 g/dL (6.4-8.2)
[2023-07-03] MEDS ORDERED: 50% Dextrose in Water 50 ML Syringe IVPUSH PRN ×2 (11:18→13:24)
[2023-07-03] MEDS ORDERED: Glucagon,Human Recombinant 1 MG Vial IM PRN ×2 (11:18→13:24)
[2023-07-03 11:22] LABS: APPEARANCE,URINE CLEAR; BILIRUBIN,URINE NEGATIVE (NEGATIVE); COLOR,URINE YELLOW; GLUCOSE,URINE >=1000 mg/dL (NEGATIVE); KETONES,URINE TRACE mg/dL (NEGATIVE); LEUKOCYTE ESTERASE,URINE NEGATIVE (NEGATIVE); NITRITE,URINE NEGATIVE (NEGATIVE); OCCULT BLOOD,URINE TRACE-INTACT (NEGATIVE); PROTEIN,URINE >=300 mg/dL (NEGATIVE); UROBILINOGEN,URINE 0.2 EU/dL (<2.0)
[2023-07-03 11:42] LABS: BACTERIA,URINE RARE (NEGATIVE); EPITHELIAL CELLS,URINE OCCASIONAL (NONE-FEW); RBC,URINE 0-3 (0-2/HPF); WBC,URINE 0-2 (0-5/HPF)
[2023-07-03] MEDS: Insulin Regular, Human 100 Units/ML 10 ML Vial IVPUSH ONE (11:51)
[2023-07-03] MEDS: Ondansetron 4 MG/2 ML SDV IVPUSH ONE (11:51)
[2023-07-03] MEDS: Metoclopramide 10 MG/2 ML SDV IVPUSH SCH (15:41)
[2023-07-03] MEDS: Buprenorphine/Naloxone 8-2 MG Tab.SL SL SCH (15:42)
[2023-07-03] MEDS: Sodium Chloride 0.9% 1,000 ML IV SCH (15:42)
[2023-07-03] MEDS: Insulin Glargine,Hum.Rec.Anlog 100 UNIT/ML 3 ML Pen SUBCUT STA ×2 (15:43→15:44)
[2023-07-03] MEDS: diphenhydrAMINE 50 MG/ML SDV IVPUSH PRN (17:29)
[2023-07-03] MEDS: Insulin Aspart 100 Units/ML 3 ML Pen SUBCUT SCH (17:32)
[2023-07-03] MEDS: Insulin Glargine,Hum.Rec.Anlog 100 UNIT/ML 3 ML Pen SUBCUT SCH (20:30)
[2023-07-03] MEDS: LORazepam 2 MG/ML SDV IVPUSH PRN (20:31)
[2023-07-04 07:21] LABS: BASOPHILS ABSOLUTE AUTO 0.06 K/uL (0.00-0.20); BASOPHILS PERCENT AUTO 0.5 % (0.0-1.0); EOSINOPHILS ABSOLUTE AUTO 0.01 K/uL (0.00-0.45); EOSINOPHILS PERCENT AUTO 0.1 % (0.0-6.0); HEMATOCRIT 28.3 % (42.0-52.0); HEMOGLOBIN 9.4 g/dL (14.0-18.0); IMMATURE GRAN ABSOLUTE AUTO 0.05 K/uL (0.00-0.05); IMMATURE GRAN PERCENT AUTO 0.4 % (0.0-0.4); LYMPHOCYTES ABSOLUTE AUTO 1.91 K/uL (1.00-4.80); LYMPHOCYTES PERCENT AUTO 14.6 % (24.0-44.0); MEAN CORPUSCULAR HEMOGLOBIN 29.5 pg (28.0-32.0); MEAN CORPUSCULAR HGB CONC 33.2 g/dL (32.0-36.0); MEAN CORPUSCULAR VOLUME 88.7 fL (83.0-99.0); MEAN PLATELET VOLUME 9.6 fL (9.4-12.4); MONOCYTES ABSOLUTE AUTO 0.86 K/uL (0.00-0.80); MONOCYTES PERCENT AUTO 6.6 % (0.0-8.0); NEUTROPHILS ABSOLUTE AUTO 10.21 K/uL (1.80-7.70); NEUTROPHILS PERCENT AUTO 77.8 % (41.0-71.0); PLATELET COUNT,PLT 246 K/uL (150-400); RED BLOOD CELL COUNT 3.19 M/uL (4.52-5.90)
[2023-07-04 07:42] LABS: CALCIUM 8.1 mg/dL (8.5-10.1); CARBON DIOXIDE,CO2 23.5 mmol/L (21.0-32.0); CREATININE 2.3 mg/dL (0.8-1.3); EST CRCL DRUG DOSING (CG) 39.24 mL/min; POTASSIUM,K 3.6 mmol/L (3.5-5.1)
[2023-07-04] MEDS: Ondansetron 4 MG/2 ML SDV IVPUSH PRN (09:13)
[2023-07-04] MEDS: Insulin Glargine,Hum.Rec.Anlog 100 UNIT/ML 3 ML Pen SUBCUT SCH (09:15)
[2023-07-04] MEDS: Losartan 50 MG Tab PO SCH (10:05)
[2023-07-04 17:04] VITALS: BP 183/115; PULSE 99
== END 2023-07-04 15:40 | disposition home or self-care (01) ==
LOC: MW.ED 07:29 → MW.MS 14:05
PROVIDERS: ADMIT Internal Medicine; ATTEND Internal Medicine
DX: E10.43 Type 1 diabetes mellitus with diabetic autonomic (poly)neuropathy (principal); K31.84 Gastroparesis; E10.65 Type 1 diabetes mellitus with hyperglycemia; I10 Essential (primary) hypertension; F11.20 Opioid dependence, uncomplicated; F41.9 Anxiety disorder, unspecified; F32.A Depression, unspecified; Z79.4 Long term (current) use of insulin; Z88.1 Allergy status to other antibiotic agents; Z91.013 Allergy to seafood; Z79.899 Other long term (current) drug therapy
CPT/HCPCS: 36415; 51798; 80048; 80053; 81001; 82009; 82803; 82947; 83690; 83735; 85025; 96361; 96374; 96375; 99285; A9270; J0574; J1200; J1790; J1815; J2060; J2405; J2765; J3490; J7030; 96376; G0378

== ENCOUNTER 2023-07-07 22:00 | Inpatient (IN) | payer MEDICAID ==
[2023-07-08] MEDS: diphenhydrAMINE 50 MG/ML SDV IVPUSH ONE ×2 (01:04→03:19)
[2023-07-08] MEDS: droPERidol 5 MG/2 ML SDV IVPUSH ONE (01:04)
[2023-07-08] MEDS: Sodium Chloride 0.9% 1,000 ML IV ONE ×3 (01:04→03:00)
[2023-07-08 01:23] LABS: BASE EXCESS VENOUS 2.4 (-2.0-3.0); PH,VENOUS 7.33 (7.31-7.41)
[2023-07-08 01:24] LABS: BASOPHILS ABSOLUTE AUTO 0.03 K/uL (0.00-0.20); BASOPHILS PERCENT AUTO 0.3 % (0.0-1.0); EOSINOPHILS ABSOLUTE AUTO 0.12 K/uL (0.00-0.45); HEMATOCRIT 29.7 % (42.0-52.0); HEMOGLOBIN 10.1 g/dL (14.0-18.0); IMMATURE GRAN ABSOLUTE AUTO 0.04 K/uL (0.00-0.05); IMMATURE GRAN PERCENT AUTO 0.3 % (0.0-0.4); LYMPHOCYTES ABSOLUTE AUTO 1.34 K/uL (1.00-4.80); LYMPHOCYTES PERCENT AUTO 11.2 % (24.0-44.0); MEAN CORPUSCULAR HEMOGLOBIN 28.9 pg (28.0-32.0); MEAN CORPUSCULAR VOLUME 85.1 fL (83.0-99.0); MEAN PLATELET VOLUME 9.7 fL (9.4-12.4); MONOCYTES ABSOLUTE AUTO 0.27 K/uL (0.00-0.80); MONOCYTES PERCENT AUTO 2.3 % (0.0-8.0); NEUTROPHILS ABSOLUTE AUTO 10.13 K/uL (1.80-7.70); NEUTROPHILS PERCENT AUTO 84.9 % (41.0-71.0); PLATELET COUNT,PLT 220 K/uL (150-400); RED BLOOD CELL COUNT 3.49 M/uL (4.52-5.90); WHITE BLOOD CELL COUNT,WBC 11.93 K/uL (3.9-11.3)
[2023-07-08 01:56] LABS: A/G RATIO 0.3 (0.9-1.6); ALANINE AMINOTRANSFERASE,ALT 14 IU/L (14-63); ALBUMIN 1.4 g/dL (3.4-5.0); ALKALINE PHOSPHATASE 99 U/L (46-116); ASPARTATE AMNIOTRANSFERASE,AST 17 IU/L (15-37); BILIRUBIN TOTAL 0.1 mg/dL (0.2-1.0); BLOOD UREA NITROGEN,BUN 22 mg/dL (7.0-18.0); CALCIUM 8.5 mg/dL (8.5-10.1); CARBON DIOXIDE,CO2 28.2 mmol/L (21.0-32.0); CHLORIDE,CL 103 mmol/L (98-107); CREATININE 2.2 mg/dL (0.8-1.3); EST CRCL DRUG DOSING (CG) 39.52 mL/min; ETHANOL BLOOD MEDICAL <3 mg/dL; GLUCOSE RANDOM 343 mg/dL (74-106); LIPASE 19 U/L (16-77); MAGNESIUM 1.8 mg/dL (1.8-2.4); POTASSIUM,K 3.8 mmol/L (3.5-5.1); PROTEIN TOTAL,TP 5.7 g/dL (6.4-8.2); SODIUM,NA 140 mmol/L (136-148)
[2023-07-08 01:57] LABS: ESTIMATED GFR 42 mL/min (>60)
[2023-07-08] MEDS: Insulin Regular, Human 100 Units/ML 10 ML Vial IVPUSH ONE (02:05)
[2023-07-08] MEDS: Labetalol 100 MG/20 ML MDV IVPUSH ONE (02:06)
[2023-07-08] MEDS: Ondansetron 4 MG/2 ML SDV IVPUSH ONE (02:11)
[2023-07-08] MEDS: Metoclopramide 10 MG/2 ML SDV IVPUSH ONE (03:19)
[2023-07-08] MEDS ORDERED: Polyethylene Glycol 3350 Powder 17 GM Packet PO PRN (07:39)
[2023-07-08] MEDS ORDERED: Sennosides/Docusate Sodium 50-8.6 MG Tab PO PRN (07:39)
[2023-07-08] MEDS: diphenhydrAMINE 50 MG/ML SDV IVPUSH PRN (08:17)
[2023-07-08] MEDS: Ondansetron 4 MG/2 ML SDV IVPUSH PRN (08:18)
[2023-07-08] MEDS: Losartan 50 MG Tab PO SCH (10:29)
[2023-07-08] MEDS: Promethazine 25 MG/ML SDV IM PRN (10:32)
[2023-07-08] MEDS ORDERED: 50% Dextrose in Water 50 ML Syringe IVPUSH PRN ×2 (12:20→17:16)
[2023-07-08] MEDS ORDERED: Glucagon,Human Recombinant 1 MG Vial IM PRN ×3 (12:20→19:26)
[2023-07-08] MEDS ORDERED: Pantoprazole 40 MG Tab.CR PO SCH (12:30)
[2023-07-08] MEDS ORDERED: LORazepam 2 MG/ML SDV IVPUSH ONE (12:42)
[2023-07-08] MEDS: Sodium Chloride 0.9% 1,000 ML IV SCH (12:42)
[2023-07-08] MEDS: Metoclopramide 10 MG/2 ML SDV IVPUSH SCH (12:43)
[2023-07-08] MEDS: Pantoprazole 40 MG in Sodium Chloride 0.9% 10 ML IVPUSH SCH (12:43)
[2023-07-08] MEDS: Insulin Aspart 100 Units/ML 3 ML Pen SUBCUT SCH ×2 (12:43→17:57)
[2023-07-08] MEDS ORDERED: Sodium Chloride 0.9% 1,000 ML IV SCH (12:45)
[2023-07-08] MEDS: Buprenorphine/Naloxone 8-2 MG Tab.SL SL SCH (13:02)
[2023-07-08] MEDS: LORazepam 2 MG/ML SDV IVPUSH ONE (13:07)
[2023-07-08 16:57] LABS: CALCIUM 7.9 mg/dL (8.5-10.1); CREATININE 2.4 mg/dL (0.8-1.3); EST CRCL DRUG DOSING (CG) 37.73 mL/min; POTASSIUM,K 4.1 mmol/L (3.5-5.1)
[2023-07-08] MEDS: Insulin Glargine,Hum.Rec.Anlog 100 UNIT/ML 3 ML Pen SUBCUT SCH (17:58)
[2023-07-08] MEDS: Enalaprilat 1.25 MG/ML SDV IVPUSH PRN (17:58)
[2023-07-08] MEDS: hydrALAZINE 20 MG/ML SDV IVPUSH ONE (20:06)
[2023-07-08] MEDS: Insulin Aspart 100 Units/ML 3 ML Pen SUBCUT ONE ×2 (20:06→22:24)
[2023-07-08] MEDS: cloNIDine 0.1 MG Tab PO SCH (20:07)
[2023-07-09] MEDS: Metoprolol Tartrate 5 MG/5 ML SDV IVPUSH ONE (03:59)
[2023-07-09 06:19] LABS: BASOPHILS ABSOLUTE AUTO 0.05 K/uL (0.00-0.20); BASOPHILS PERCENT AUTO 0.5 % (0.0-1.0); EOSINOPHILS ABSOLUTE AUTO 0.03 K/uL (0.00-0.45); EOSINOPHILS PERCENT AUTO 0.3 % (0.0-6.0); HEMATOCRIT 25.6 % (42.0-52.0); HEMOGLOBIN 8.7 g/dL (14.0-18.0); IMMATURE GRAN ABSOLUTE AUTO 0.04 K/uL (0.00-0.05); IMMATURE GRAN PERCENT AUTO 0.4 % (0.0-0.4); LYMPHOCYTES ABSOLUTE AUTO 1.46 K/uL (1.00-4.80); LYMPHOCYTES PERCENT AUTO 13.2 % (24.0-44.0); MEAN CORPUSCULAR HEMOGLOBIN 29.4 pg (28.0-32.0); MEAN CORPUSCULAR VOLUME 86.5 fL (83.0-99.0); MEAN PLATELET VOLUME 9.6 fL (9.4-12.4); MONOCYTES ABSOLUTE AUTO 0.45 K/uL (0.00-0.80); MONOCYTES PERCENT AUTO 4.1 % (0.0-8.0); NEUTROPHILS ABSOLUTE AUTO 9.02 K/uL (1.80-7.70); NEUTROPHILS PERCENT AUTO 81.5 % (41.0-71.0); PLATELET COUNT,PLT 249 K/uL (150-400); RED BLOOD CELL COUNT 2.96 M/uL (4.52-5.90); WHITE BLOOD CELL COUNT,WBC 11.05 K/uL (3.9-11.3)
[2023-07-09 06:59] LABS: A/G RATIO 0.3 (0.9-1.6); ALBUMIN 1.2 g/dL (3.4-5.0); BILIRUBIN TOTAL 0.2 mg/dL (0.2-1.0); CALCIUM 8.2 mg/dL (8.5-10.1); CARBON DIOXIDE,CO2 25.8 mmol/L (21.0-32.0); CREATININE 2.3 mg/dL (0.8-1.3); EST CRCL DRUG DOSING (CG) 39.37 mL/min; POTASSIUM,K 3.5 mmol/L (3.5-5.1)
[2023-07-09] MEDS: Insulin Glargine,Hum.Rec.Anlog 100 UNIT/ML 3 ML Pen SUBCUT SCH (09:32)
[2023-07-09] MEDS ORDERED: Metoprolol Tartrate 5 MG in Sodium Chloride 0.9% 50 ML IV PRN (10:27)
[2023-07-09] MEDS: Sodium Chloride 0.9% 1,000 ML IV ONE (11:55)
[2023-07-09 14:03] LABS: APPEARANCE,URINE SLT CLOUDY; BILIRUBIN,URINE NEGATIVE (NEGATIVE); COLOR,URINE YELLOW; GLUCOSE,URINE >=1000 mg/dL (NEGATIVE); KETONES,URINE TRACE mg/dL (NEGATIVE); NITRITE,URINE NEGATIVE (NEGATIVE); OCCULT BLOOD,URINE SMALL (NEGATIVE); PROTEIN,URINE >=300 mg/dL (NEGATIVE); UROBILINOGEN,URINE 0.2 EU/dL (<2.0)
[2023-07-09 14:43] LABS: LEUKOCYTE ESTERASE,URINE MODERATE (NEGATIVE)
[2023-07-10] MEDS: traZODone 50 MG Tab PO PRN (01:00)
[2023-07-10] MEDS: Enalaprilat 1.25 MG/ML SDV IVPUSH PRN (05:48)
[2023-07-10] MEDS: 50% Dextrose in Water 50 ML Syringe IVPUSH PRN (05:55)
[2023-07-10] MEDS: Metoprolol Tartrate 5 MG/5 ML SDV IV PRN (06:56)
[2023-07-10 07:52] LABS: A/G RATIO 0.3 (0.9-1.6); ALBUMIN 1.2 g/dL (3.4-5.0); BILIRUBIN TOTAL 0.1 mg/dL (0.2-1.0); CARBON DIOXIDE,CO2 21.9 mmol/L (21.0-32.0); CREATININE 2.5 mg/dL (0.8-1.3); EST CRCL DRUG DOSING (CG) 36.22 mL/min; POTASSIUM,K 3.8 mmol/L (3.5-5.1)
[2023-07-10 08:34] LABS: BASOPHILS ABSOLUTE AUTO 0.06 K/uL (0.00-0.20); BASOPHILS PERCENT AUTO 0.4 % (0.0-1.0); EOSINOPHILS ABSOLUTE AUTO 0.06 K/uL (0.00-0.45); EOSINOPHILS PERCENT AUTO 0.4 % (0.0-6.0); HEMATOCRIT 29.2 % (42.0-52.0); HEMOGLOBIN 9.9 g/dL (14.0-18.0); IMMATURE GRAN ABSOLUTE AUTO 0.11 K/uL (0.00-0.05); IMMATURE GRAN PERCENT AUTO 0.8 % (0.0-0.4); LYMPHOCYTES ABSOLUTE AUTO 1.75 K/uL (1.00-4.80); MEAN CORPUSCULAR HEMOGLOBIN 29.6 pg (28.0-32.0); MEAN CORPUSCULAR HGB CONC 33.9 g/dL (32.0-36.0); MEAN CORPUSCULAR VOLUME 87.2 fL (83.0-99.0); MEAN PLATELET VOLUME 9.3 fL (9.4-12.4); MONOCYTES ABSOLUTE AUTO 0.57 K/uL (0.00-0.80); MONOCYTES PERCENT AUTO 4.2 % (0.0-8.0); NEUTROPHILS ABSOLUTE AUTO 10.89 K/uL (1.80-7.70); NEUTROPHILS PERCENT AUTO 81.2 % (41.0-71.0); PLATELET COUNT,PLT 303 K/uL (150-400); RED BLOOD CELL COUNT 3.35 M/uL (4.52-5.90); WHITE BLOOD CELL COUNT,WBC 13.44 K/uL (3.9-11.3)
[2023-07-10] MEDS: Albumin 5% 250 ML IV SCH (11:39)
[2023-07-10 18:02] LABS: LACTIC ACID 0.9 mmol/L (0.4-2.0)
[2023-07-11 06:23] LABS: BASOPHILS ABSOLUTE AUTO 0.06 K/uL (0.00-0.20); BASOPHILS PERCENT AUTO 0.6 % (0.0-1.0); EOSINOPHILS ABSOLUTE AUTO 0.07 K/uL (0.00-0.45); EOSINOPHILS PERCENT AUTO 0.7 % (0.0-6.0); HEMATOCRIT 29.6 % (42.0-52.0); HEMOGLOBIN 9.5 g/dL (14.0-18.0); IMMATURE GRAN ABSOLUTE AUTO 0.05 K/uL (0.00-0.05); IMMATURE GRAN PERCENT AUTO 0.5 % (0.0-0.4); LYMPHOCYTES ABSOLUTE AUTO 2.13 K/uL (1.00-4.80); LYMPHOCYTES PERCENT AUTO 21.6 % (24.0-44.0); MEAN CORPUSCULAR HEMOGLOBIN 28.4 pg (28.0-32.0); MEAN CORPUSCULAR HGB CONC 32.1 g/dL (32.0-36.0); MEAN CORPUSCULAR VOLUME 88.6 fL (83.0-99.0); MONOCYTES ABSOLUTE AUTO 0.43 K/uL (0.00-0.80); MONOCYTES PERCENT AUTO 4.4 % (0.0-8.0); NEUTROPHILS ABSOLUTE AUTO 7.11 K/uL (1.80-7.70); NEUTROPHILS PERCENT AUTO 72.2 % (41.0-71.0); PLATELET COUNT,PLT 273 K/uL (150-400); RED BLOOD CELL COUNT 3.34 M/uL (4.52-5.90); WHITE BLOOD CELL COUNT,WBC 9.85 K/uL (3.9-11.3)
[2023-07-11 06:44] LABS: CALCIUM 8.8 mg/dL (8.5-10.1); CARBON DIOXIDE,CO2 21.9 mmol/L (21.0-32.0); CREATININE 2.3 mg/dL (0.8-1.3); EST CRCL DRUG DOSING (CG) 39.37 mL/min; POTASSIUM,K 3.7 mmol/L (3.5-5.1)
[2023-07-11] MEDS: Furosemide 20 MG/2 ML VIAL IVPUSH SCH (12:06)
[2023-07-11] MEDS ORDERED: Furosemide 40 MG/4 ML VIAL IVPUSH SCH (14:00)
[2023-07-12] MEDS: Buprenorphine/Naloxone 8-2 MG Tab.SL SL SCH (08:42)
[2023-07-12 08:56] LABS: BASOPHILS ABSOLUTE AUTO 0.07 K/uL (0.00-0.20); BASOPHILS PERCENT AUTO 0.7 % (0.0-1.0); EOSINOPHILS ABSOLUTE AUTO 0.17 K/uL (0.00-0.45); EOSINOPHILS PERCENT AUTO 1.6 % (0.0-6.0); HEMATOCRIT 30.5 % (42.0-52.0); IMMATURE GRAN ABSOLUTE AUTO 0.05 K/uL (0.00-0.05); IMMATURE GRAN PERCENT AUTO 0.5 % (0.0-0.4); LYMPHOCYTES ABSOLUTE AUTO 2.92 K/uL (1.00-4.80); LYMPHOCYTES PERCENT AUTO 27.8 % (24.0-44.0); MEAN CORPUSCULAR HEMOGLOBIN 28.7 pg (28.0-32.0); MEAN CORPUSCULAR HGB CONC 32.8 g/dL (32.0-36.0); MEAN CORPUSCULAR VOLUME 87.6 fL (83.0-99.0); MEAN PLATELET VOLUME 9.1 fL (9.4-12.4); MONOCYTES ABSOLUTE AUTO 0.52 K/uL (0.00-0.80); NEUTROPHILS ABSOLUTE AUTO 6.76 K/uL (1.80-7.70); NEUTROPHILS PERCENT AUTO 64.4 % (41.0-71.0); PLATELET COUNT,PLT 271 K/uL (150-400); RED BLOOD CELL COUNT 3.48 M/uL (4.52-5.90); WHITE BLOOD CELL COUNT,WBC 10.49 K/uL (3.9-11.3)
[2023-07-12 09:17] LABS: A/G RATIO 0.4 (0.9-1.6); ALBUMIN 1.4 g/dL (3.4-5.0); BILIRUBIN TOTAL 0.3 mg/dL (0.2-1.0); CALCIUM 8.2 mg/dL (8.5-10.1); CARBON DIOXIDE,CO2 22.7 mmol/L (21.0-32.0); CREATININE 2.7 mg/dL (0.8-1.3); EST CRCL DRUG DOSING (CG) 33.54 mL/min; POTASSIUM,K 3.9 mmol/L (3.5-5.1); PROTEIN TOTAL,TP 4.8 g/dL (6.4-8.2)
[2023-07-12 14:32] LABS: CALCIUM 8.5 mg/dL (8.5-10.1); CARBON DIOXIDE,CO2 20.8 mmol/L (21.0-32.0); CREATININE 2.7 mg/dL (0.8-1.3); EST CRCL DRUG DOSING (CG) 33.54 mL/min; POTASSIUM,K 3.4 mmol/L (3.5-5.1)
[2023-07-12] MEDS: Cephalexin 500 MG Cap PO SCH (14:33)
[2023-07-12] MEDS: ceFAZolin 2 GM in Sodium Chloride 0.9% 50 ML IV SCH (15:12)
[2023-07-12] MEDS: Potassium Chloride 10% 20 MEQ/15 ML Soln 15 ML UD Cup PO STA (19:30)
[2023-07-12] MEDS: Potassium Chloride 20 MEQ Tab.ER PO ONE (19:30)
[2023-07-12] MEDS: Potassium Chloride 10 MEQ in Premix Bag 1 BAG IV SCH (20:27)
[2023-07-13 08:09] LABS: BASOPHILS ABSOLUTE AUTO 0.04 K/uL (0.00-0.20); BASOPHILS PERCENT AUTO 0.4 % (0.0-1.0); EOSINOPHILS ABSOLUTE AUTO 0.08 K/uL (0.00-0.45); EOSINOPHILS PERCENT AUTO 0.8 % (0.0-6.0); HEMATOCRIT 29.1 % (42.0-52.0); HEMOGLOBIN 9.9 g/dL (14.0-18.0); IMMATURE GRAN ABSOLUTE AUTO 0.05 K/uL (0.00-0.05); IMMATURE GRAN PERCENT AUTO 0.5 % (0.0-0.4); LYMPHOCYTES ABSOLUTE AUTO 2.17 K/uL (1.00-4.80); LYMPHOCYTES PERCENT AUTO 21.4 % (24.0-44.0); MEAN CORPUSCULAR VOLUME 85.3 fL (83.0-99.0); MEAN PLATELET VOLUME 8.9 fL (9.4-12.4); MONOCYTES ABSOLUTE AUTO 0.48 K/uL (0.00-0.80); MONOCYTES PERCENT AUTO 4.7 % (0.0-8.0); NEUTROPHILS ABSOLUTE AUTO 7.32 K/uL (1.80-7.70); NEUTROPHILS PERCENT AUTO 72.2 % (41.0-71.0); PLATELET COUNT,PLT 249 K/uL (150-400); RED BLOOD CELL COUNT 3.41 M/uL (4.52-5.90); WHITE BLOOD CELL COUNT,WBC 10.14 K/uL (3.9-11.3)
[2023-07-13 08:33] LABS: A/G RATIO 0.4 (0.9-1.6); ALBUMIN 1.4 g/dL (3.4-5.0); BILIRUBIN TOTAL 0.2 mg/dL (0.2-1.0); CALCIUM 8.1 mg/dL (8.5-10.1); CARBON DIOXIDE,CO2 23.9 mmol/L (21.0-32.0); CREATININE 2.6 mg/dL (0.8-1.3); EST CRCL DRUG DOSING (CG) 34.83 mL/min; POTASSIUM,K 3.4 mmol/L (3.5-5.1); PROTEIN TOTAL,TP 4.8 g/dL (6.4-8.2)
[2023-07-13] MEDS ORDERED: droPERidol 5 MG/2 ML SDV IVPUSH ONE (09:25)
[2023-07-13] MEDS: droPERidol 1.25 MG in Sodium Chloride 0.9% 50 ML IV ONE (10:00)
[2023-07-13] MEDS: [UNRECOGNIZED DRUG - OTHER] PO ONE (10:37)
[2023-07-13 16:16] VITALS: BP 167/102; PULSE 112
[2023-07-13] MEDS ORDERED: TIMOLOL MALEATE EYERT SCH (21:00)
[2023-07-14] MEDS ORDERED: Furosemide 40 MG Tab PO SCH (09:00)
== END 2023-07-13 16:05 | disposition home or self-care (01) | DRG 74 ==
LOC: MW.ED 22:00 → MW.MS 07-08 04:55 → OBSVTOIN 07-10 10:34 → MW.MS 07-10 10:35
PROVIDERS: ADMIT Internal Medicine; ATTEND Internal Medicine
DX: E10.43 Type 1 diabetes mellitus with diabetic autonomic (poly)neuropathy (principal); N39.0 Urinary tract infection, site not specified; I10 Essential (primary) hypertension; K31.84 Gastroparesis; H54.7 Unspecified visual loss; Z88.1 Allergy status to other antibiotic agents; F41.9 Anxiety disorder, unspecified; F32.A Depression, unspecified; R60.0 Localized edema; E10.22 Type 1 diabetes mellitus with diabetic chronic kidney disease; E10.65 Type 1 diabetes mellitus with hyperglycemia; I12.9 Hypertensive chronic kidney disease with stage 1 through stage 4 chronic kidney disease, or unspecified chronic kidney disease; N18.9 Chronic kidney disease, unspecified; E10.29 Type 1 diabetes mellitus with other diabetic kidney complication; Z88.0 Allergy status to penicillin; Z91.013 Allergy to seafood; Z79.4 Long term (current) use of insulin; Z79.899 Other long term (current) drug therapy; Z98.890 Other specified postprocedural states
CPT/HCPCS: 36415 ×3; 80048; 80053 ×3; 80307; 81003; 82803; 82947 ×18; 83605; 83690; 83735; 84484; 85025 ×3; 87086; 93005 ×2; 96361; 96374; 96375; 96376; 99285; A9270 ×3; C9113; J0360; J0574 ×4; J1200 ×10; J1790; J1815 ×2; J1921; J2060; J2405 ×7; J2550 ×2; J2765 ×6; J3490 ×3; J7030 ×8; 51701; 51798; 82040; 87040; 93010; 96372; 99284; C1729; G0378; J0690; J1940; J3480; P9045

== ENCOUNTER 2023-07-14 17:09 | Observation (INO) | payer MEDICAID ==
[2023-07-14] MEDS: Metoclopramide 10 MG/2 ML SDV IVPUSH ONE (18:03)
[2023-07-14] MEDS: diphenhydrAMINE 50 MG/ML SDV IVPUSH ONE (18:03)
[2023-07-14] MEDS: Sodium Chloride 0.9% 1,000 ML IV ONE (18:03)
[2023-07-14 18:45] LABS: BASE EXCESS VENOUS -3.3 (-2.0-3.0); PH,VENOUS 7.35 (7.31-7.41)
[2023-07-14 18:46] LABS: BASOPHILS ABSOLUTE AUTO 0.07 K/uL (0.00-0.20); BASOPHILS PERCENT AUTO 0.6 % (0.0-1.0); EOSINOPHILS ABSOLUTE AUTO 0.09 K/uL (0.00-0.45); EOSINOPHILS PERCENT AUTO 0.8 % (0.0-6.0); HEMATOCRIT 27.9 % (42.0-52.0); HEMOGLOBIN 9.7 g/dL (14.0-18.0); IMMATURE GRAN ABSOLUTE AUTO 0.07 K/uL (0.00-0.05); IMMATURE GRAN PERCENT AUTO 0.6 % (0.0-0.4); LYMPHOCYTES ABSOLUTE AUTO 1.81 K/uL (1.00-4.80); LYMPHOCYTES PERCENT AUTO 16.4 % (24.0-44.0); MEAN CORPUSCULAR HEMOGLOBIN 29.2 pg (28.0-32.0); MEAN CORPUSCULAR HGB CONC 34.8 g/dL (32.0-36.0); MEAN PLATELET VOLUME 8.9 fL (9.4-12.4); MONOCYTES ABSOLUTE AUTO 0.25 K/uL (0.00-0.80); MONOCYTES PERCENT AUTO 2.3 % (0.0-8.0); NEUTROPHILS ABSOLUTE AUTO 8.75 K/uL (1.80-7.70); NEUTROPHILS PERCENT AUTO 79.3 % (41.0-71.0); PLATELET COUNT,PLT 263 K/uL (150-400); RED BLOOD CELL COUNT 3.32 M/uL (4.52-5.90); WHITE BLOOD CELL COUNT,WBC 11.04 K/uL (3.9-11.3)
[2023-07-14 19:29] LABS: A/G RATIO 0.4 (0.9-1.6); ALBUMIN 1.5 g/dL (3.4-5.0); BILIRUBIN TOTAL 0.2 mg/dL (0.2-1.0); CALCIUM 8.2 mg/dL (8.5-10.1); CARBON DIOXIDE,CO2 22.1 mmol/L (21.0-32.0); CREATININE 2.7 mg/dL (0.8-1.3); EST CRCL DRUG DOSING (CG) 32.54 mL/min; POTASSIUM,K 3.3 mmol/L (3.5-5.1); PROTEIN TOTAL,TP 5.1 g/dL (6.4-8.2)
[2023-07-14] MEDS ORDERED: 50% Dextrose in Water 50 ML Syringe IVPUSH PRN (19:37)
[2023-07-14] MEDS ORDERED: Glucagon,Human Recombinant 1 MG Vial IM PRN (19:37)
[2023-07-14] MEDS: Famotidine 20 MG/2 ML SDV IVPUSH ONE (19:37)
[2023-07-14 19:52] LABS: MAGNESIUM 1.7 mg/dL (1.8-2.4)
[2023-07-14] MEDS: Insulin Regular, Human 100 Units/ML 10 ML Vial IVPUSH ONE (19:58)
[2023-07-14] MEDS ORDERED: Metoclopramide 10 MG/2 ML SDV IVPUSH PRN (20:38)
[2023-07-14] MEDS: Ondansetron 4 MG/2 ML SDV IVPUSH PRN (20:58)
[2023-07-14] MEDS: diphenhydrAMINE 50 MG/ML SDV IVPUSH PRN (21:04)
[2023-07-14 22:07] LABS: APPEARANCE,URINE CLEAR; BILIRUBIN,URINE NEGATIVE (NEGATIVE); COLOR,URINE YELLOW; GLUCOSE,URINE >=1000 mg/dL (NEGATIVE); KETONES,URINE 40 mg/dL (NEGATIVE); LEUKOCYTE ESTERASE,URINE NEGATIVE (NEGATIVE); NITRITE,URINE NEGATIVE (NEGATIVE); OCCULT BLOOD,URINE SMALL (NEGATIVE); PROTEIN,URINE >=300 mg/dL (NEGATIVE); UROBILINOGEN,URINE 0.2 EU/dL (<2.0)
[2023-07-14 22:15] LABS: BACTERIA,URINE RARE (NEGATIVE); EPITHELIAL CELLS,URINE RARE (NONE-FEW)
[2023-07-14] MEDS: Sodium Chloride 0.9% 1,000 ML IV SCH (22:40)
[2023-07-15] MEDS ORDERED: Enalaprilat 1.25 MG/ML SDV IVPUSH PRN ×2 (00:45→01:08)
[2023-07-15] MEDS ORDERED: 50% Dextrose in Water 50 ML Syringe IVPUSH PRN (01:11)
[2023-07-15] MEDS ORDERED: Glucagon,Human Recombinant 1 MG Vial IM PRN (01:11)
[2023-07-15] MEDS: Buprenorphine/Naloxone 8-2 MG Tab.SL SL SCH (08:50)
[2023-07-15] MEDS: Insulin Aspart 100 Units/ML 3 ML Pen SUBCUT SCH (08:53)
[2023-07-15 09:05] LABS: BASOPHILS ABSOLUTE AUTO 0.07 K/uL (0.00-0.20); BASOPHILS PERCENT AUTO 0.6 % (0.0-1.0); EOSINOPHILS ABSOLUTE AUTO 0.02 K/uL (0.00-0.45); EOSINOPHILS PERCENT AUTO 0.2 % (0.0-6.0); HEMATOCRIT 26.9 % (42.0-52.0); HEMOGLOBIN 9.1 g/dL (14.0-18.0); IMMATURE GRAN ABSOLUTE AUTO 0.04 K/uL (0.00-0.05); IMMATURE GRAN PERCENT AUTO 0.3 % (0.0-0.4); LYMPHOCYTES PERCENT AUTO 20.2 % (24.0-44.0); MEAN CORPUSCULAR HEMOGLOBIN 29.1 pg (28.0-32.0); MEAN CORPUSCULAR HGB CONC 33.8 g/dL (32.0-36.0); MEAN CORPUSCULAR VOLUME 85.9 fL (83.0-99.0); MEAN PLATELET VOLUME 9.1 fL (9.4-12.4); MONOCYTES ABSOLUTE AUTO 0.39 K/uL (0.00-0.80); MONOCYTES PERCENT AUTO 3.3 % (0.0-8.0); NEUTROPHILS ABSOLUTE AUTO 8.96 K/uL (1.80-7.70); NEUTROPHILS PERCENT AUTO 75.4 % (41.0-71.0); PLATELET COUNT,PLT 258 K/uL (150-400); RED BLOOD CELL COUNT 3.13 M/uL (4.52-5.90); WHITE BLOOD CELL COUNT,WBC 11.88 K/uL (3.9-11.3)
[2023-07-15] MEDS: Metoprolol Tartrate 5 MG/5 ML SDV IVPUSH PRN (09:12)
[2023-07-15 09:35] LABS: A/G RATIO 0.4 (0.9-1.6); ALBUMIN 1.3 g/dL (3.4-5.0); BILIRUBIN TOTAL 0.2 mg/dL (0.2-1.0); CALCIUM 8.1 mg/dL (8.5-10.1); CREATININE 2.4 mg/dL (0.8-1.3); EST CRCL DRUG DOSING (CG) 36.6 mL/min; POTASSIUM,K 3.1 mmol/L (3.5-5.1); PROTEIN TOTAL,TP 4.7 g/dL (6.4-8.2)
[2023-07-15] MEDS ORDERED: droPERidol 5 MG/2 ML SDV IVPUSH PRN (10:02)
[2023-07-15] MEDS: Furosemide 40 MG Tab PO SCH (11:11)
[2023-07-15] MEDS: Potassium Chloride 20 MEQ Tab.ER PO SCH (11:11)
[2023-07-15] MEDS: [UNRECOGNIZED DRUG - OTHER] PO ONE (11:11)
[2023-07-15] MEDS: Cephalexin 250 MG Cap PO SCH (11:11)
[2023-07-15] MEDS: TIMOLOL MALEATE 0.5% EYERT SCH (11:12)
[2023-07-15] MEDS: BRIMONIDINE TARTRATE 0.2% EYERT SCH (11:12)
[2023-07-15] MEDS: droPERidol 5 MG/2 ML SDV IVPUSH SCH (12:17)
[2023-07-15] MEDS: Insulin Glargine,Hum.Rec.Anlog 100 UNIT/ML 3 ML Pen SUBCUT SCH (17:37)
[2023-07-15] MEDS: Losartan 50 MG Tab PO SCH (20:30)
[2023-07-15] MEDS: cloNIDine 0.1 MG Tab PO SCH (20:33)
[2023-07-15] MEDS ORDERED: traZODone 50 MG Tab PO PRN (20:55)
[2023-07-15] MEDS ORDERED: cloNIDine 0.1 MG Tab PO SCH (21:00)
[2023-07-15] MEDS ORDERED: Non-Formulary Medication 1 Each (Insulin Glarg,Human.Rec.Analog 100 UNITS/ML Pen) SUBCUT SCH (21:00)
[2023-07-15 23:04] LABS: PROTEIN,URINE CONCENTRATION 520.9 mg/dL (0-14)
[2023-07-16 06:13] LABS: BASOPHILS ABSOLUTE AUTO 0.05 K/uL (0.00-0.20); BASOPHILS PERCENT AUTO 0.8 % (0.0-1.0); EOSINOPHILS ABSOLUTE AUTO 0.17 K/uL (0.00-0.45); EOSINOPHILS PERCENT AUTO 2.6 % (0.0-6.0); HEMOGLOBIN 8.4 g/dL (14.0-18.0); IMMATURE GRAN ABSOLUTE AUTO 0.03 K/uL (0.00-0.05); IMMATURE GRAN PERCENT AUTO 0.5 % (0.0-0.4); LYMPHOCYTES ABSOLUTE AUTO 2.64 K/uL (1.00-4.80); LYMPHOCYTES PERCENT AUTO 41.1 % (24.0-44.0); MEAN CORPUSCULAR HEMOGLOBIN 28.8 pg (28.0-32.0); MEAN CORPUSCULAR HGB CONC 33.6 g/dL (32.0-36.0); MEAN CORPUSCULAR VOLUME 85.6 fL (83.0-99.0); MEAN PLATELET VOLUME 9.2 fL (9.4-12.4); MONOCYTES ABSOLUTE AUTO 0.25 K/uL (0.00-0.80); MONOCYTES PERCENT AUTO 3.9 % (0.0-8.0); NEUTROPHILS ABSOLUTE AUTO 3.28 K/uL (1.80-7.70); NEUTROPHILS PERCENT AUTO 51.1 % (41.0-71.0); PLATELET COUNT,PLT 185 K/uL (150-400); RED BLOOD CELL COUNT 2.92 M/uL (4.52-5.90); WHITE BLOOD CELL COUNT,WBC 6.42 K/uL (3.9-11.3)
[2023-07-16 06:36] LABS: CALCIUM 7.6 mg/dL (8.5-10.1); CARBON DIOXIDE,CO2 25.3 mmol/L (21.0-32.0); EST CRCL DRUG DOSING (CG) 43.92 mL/min; MAGNESIUM 1.5 mg/dL (1.8-2.4); POTASSIUM,K 3.5 mmol/L (3.5-5.1)
[2023-07-16] MEDS: Furosemide 40 MG Tab ONE ×2 (08:26→08:31)
[2023-07-16] MEDS: Magnesium Sulfate/Water 2 GM in Premix Bag 1 BAG IV ONE (11:39)
[2023-07-16] MEDS: Magnesium Oxide 400 MG Tab PO ONE (12:01)
[2023-07-16 12:23] VITALS: BP 134/99; PULSE 108
== END 2023-07-16 13:05 | disposition home or self-care (01) ==
LOC: MW.ED 17:09 → MW.MS 19:45
PROVIDERS: ADMIT Internal Medicine; ATTEND Internal Medicine
DX: E10.43 Type 1 diabetes mellitus with diabetic autonomic (poly)neuropathy (principal); K31.84 Gastroparesis; N17.9 Acute kidney failure, unspecified; N31.9 Neuromuscular dysfunction of bladder, unspecified; R11.15 Cyclical vomiting syndrome unrelated to migraine; I10 Essential (primary) hypertension; F41.8 Other specified anxiety disorders; Z79.899 Other long term (current) drug therapy; Z79.4 Long term (current) use of insulin; Z88.1 Allergy status to other antibiotic agents; Z91.013 Allergy to seafood
CPT/HCPCS: 36415; 51702; 80048; 80053; 81001; 82009; 82570; 82803; 82947; 83690; 83735; 83880; 84156; 84300; 85025; A9270; J0574; J1200; J1790; J1815; J2405; J2765; J3490; J7030; 96361; 96374; 96375; 99284-25; 99285

== ENCOUNTER 2023-07-20 17:46 | Emergency (ER) | payer MEDICAID ==
[2023-07-20 17:56] LABS: BICARBONATE,VENOUS 34 mEQ/mL (22-28); PCO2 VENOUS 56 mmHG (41-51); PH,VENOUS 7.39 (7.31-7.41)
[2023-07-20 17:57] LABS: PO2 VENOUS < 30 mmHG (35-45)
[2023-07-20 17:58] LABS: BASOPHILS ABSOLUTE AUTO 0.03 K/uL (0.00-0.20); BASOPHILS PERCENT AUTO 0.5 % (0.0-1.0); EOSINOPHILS ABSOLUTE AUTO 0.14 K/uL (0.00-0.45); EOSINOPHILS PERCENT AUTO 2.3 % (0.0-6.0); HEMATOCRIT 24.2 % (42.0-52.0); HEMOGLOBIN 8.1 g/dL (14.0-18.0); IMMATURE GRAN ABSOLUTE AUTO 0.03 K/uL (0.00-0.05); IMMATURE GRAN PERCENT AUTO 0.5 % (0.0-0.4); LYMPHOCYTES ABSOLUTE AUTO 2.45 K/uL (1.00-4.80); LYMPHOCYTES PERCENT AUTO 40.8 % (24.0-44.0); MEAN CORPUSCULAR HEMOGLOBIN 29.1 pg (28.0-32.0); MEAN CORPUSCULAR HGB CONC 33.5 g/dL (32.0-36.0); MEAN CORPUSCULAR VOLUME 87.1 fL (83.0-99.0); MEAN PLATELET VOLUME 9.9 fL (9.4-12.4); MONOCYTES ABSOLUTE AUTO 0.18 K/uL (0.00-0.80); NEUTROPHILS ABSOLUTE AUTO 3.17 K/uL (1.80-7.70); NEUTROPHILS PERCENT AUTO 52.9 % (41.0-71.0); PLATELET COUNT,PLT 234 K/uL (150-400); RED BLOOD CELL COUNT 2.78 M/uL (4.52-5.90)
[2023-07-20 18:13] LABS: INR 0.95 (0.86-1.11); PTT,PARTIAL THROMBOPLSTIN TIME 26.9 SEC (23.9-30.7)
[2023-07-20 18:24] LABS: A/G RATIO 0.4 (0.9-1.6); ALANINE AMINOTRANSFERASE,ALT 8 IU/L (14-63); ALBUMIN 1.1 g/dL (3.4-5.0); ALKALINE PHOSPHATASE 63 U/L (46-116); ASPARTATE AMNIOTRANSFERASE,AST 17 IU/L (15-37); BILIRUBIN TOTAL 0.1 mg/dL (0.2-1.0); BLOOD UREA NITROGEN,BUN 19 mg/dL (7.0-18.0); CALCIUM 7.5 mg/dL (8.5-10.1); CARBON DIOXIDE,CO2 35.7 mmol/L (21.0-32.0); CHLORIDE,CL 103 mmol/L (98-107); CREATININE 2.2 mg/dL (0.8-1.3); GLUCOSE RANDOM 291 mg/dL (74-106); LIPASE 16 U/L (16-77); POTASSIUM,K 3.8 mmol/L (3.5-5.1); PROTEIN TOTAL,TP 4.2 g/dL (6.4-8.2); SODIUM,NA 138 mmol/L (136-148)
[2023-07-20 18:26] LABS: ESTIMATED GFR 42 mL/min (>60)
[2023-07-20 18:29] LABS: ETHANOL BLOOD MEDICAL < 3.0 mg/dL; MAGNESIUM 1.8 mg/dL (1.8-2.4); PHOSPHORUS 4.7 mg/dL (2.6-4.7)
[2023-07-20] MEDS: Ondansetron 4 MG/2 ML SDV IVPUSH STA (18:41)
[2023-07-20] MEDS: Sodium Chloride 0.9% 1,000 ML IV STA (18:41)
[2023-07-20] MEDS: Morphine 2 MG/ML SYRINGE IVPUSH STA (18:41)
[2023-07-20] MEDS: diphenhydrAMINE 50 MG/ML SDV IVPUSH STA (20:05)
[2023-07-20 21:27] VITALS: BP 136/97; PULSE 82
== END 2023-07-20 21:27 | disposition home or self-care (01) ==
LOC: MW.ED 17:46
DX: S09.90XA Unspecified injury of head, initial encounter (principal); I10 Essential (primary) hypertension; E10.9 Type 1 diabetes mellitus without complications; Z75.8 Other problems related to medical facilities and other health care; Z88.0 Allergy status to penicillin; Z91.013 Allergy to seafood; Z79.4 Long term (current) use of insulin; Z79.899 Other long term (current) drug therapy; W18.2XXA Fall in (into) shower or empty bathtub, initial encounter
CPT/HCPCS: 36415; 70450; 71045; 72125; 72128; 72131; 80053; 80307; 82803; 82947; 83690; 83735; 84100; 84484; 85025; 85610; 85730; 93005; 96361; 96374; 96375; 99285; J1200; J2270; J2405; J7030

== ENCOUNTER 2023-07-31 16:18 | Emergency (ER) | payer MEDICAID ==
[2023-07-31] MEDS: Sodium Chloride 0.9% 1,000 ML IV STA (19:21)
[2023-07-31] MEDS: diphenhydrAMINE 50 MG/ML SDV IVPUSH STA (19:21)
[2023-07-31] MEDS: droPERidol 5 MG/2 ML SDV IVPUSH STA (19:22)
[2023-07-31 19:25] LABS: BASOPHILS ABSOLUTE AUTO 0.04 K/uL (0.00-0.20); BASOPHILS PERCENT AUTO 0.7 % (0.0-1.0); EOSINOPHILS PERCENT AUTO 1.9 % (0.0-6.0); HEMATOCRIT 25.2 % (42.0-52.0); HEMOGLOBIN 8.3 g/dL (14.0-18.0); IMMATURE GRAN ABSOLUTE AUTO 0.02 K/uL (0.00-0.05); IMMATURE GRAN PERCENT AUTO 0.4 % (0.0-0.4); LYMPHOCYTES ABSOLUTE AUTO 1.04 K/uL (1.00-4.80); LYMPHOCYTES PERCENT AUTO 19.4 % (24.0-44.0); MEAN CORPUSCULAR HEMOGLOBIN 28.9 pg (28.0-32.0); MEAN CORPUSCULAR HGB CONC 32.9 g/dL (32.0-36.0); MEAN CORPUSCULAR VOLUME 87.8 fL (83.0-99.0); MEAN PLATELET VOLUME 9.2 fL (9.4-12.4); MONOCYTES ABSOLUTE AUTO 0.18 K/uL (0.00-0.80); MONOCYTES PERCENT AUTO 3.4 % (0.0-8.0); NEUTROPHILS ABSOLUTE AUTO 3.97 K/uL (1.80-7.70); NEUTROPHILS PERCENT AUTO 74.2 % (41.0-71.0); PLATELET COUNT,PLT 187 K/uL (150-400); RED BLOOD CELL COUNT 2.87 M/uL (4.52-5.90); WHITE BLOOD CELL COUNT,WBC 5.35 K/uL (3.9-11.3)
[2023-07-31 19:26] LABS: BASE EXCESS VENOUS 2.7 (-2.0-3.0); PH,VENOUS 7.41 (7.31-7.41)
[2023-07-31 19:56] LABS: A/G RATIO 0.3 (0.9-1.6); ALBUMIN 1.3 g/dL (3.4-5.0); BILIRUBIN TOTAL 0.2 mg/dL (0.2-1.0); CALCIUM 8.5 mg/dL (8.5-10.1); CARBON DIOXIDE,CO2 28.2 mmol/L (21.0-32.0); CREATININE 2.2 mg/dL (0.8-1.3); EST CRCL DRUG DOSING (CG) 38.48 mL/min; MAGNESIUM 2.2 mg/dL (1.8-2.4); POTASSIUM,K 4.9 mmol/L (3.5-5.1); PROTEIN TOTAL,TP 5.3 g/dL (6.4-8.2)
[2023-07-31 21:28] VITALS: BP 154/112; PULSE 98
== END 2023-07-31 21:38 | disposition home or self-care (01) ==
LOC: MW.ED 16:18
DX: K31.84 Gastroparesis (principal); R11.2 Nausea with vomiting, unspecified; E10.9 Type 1 diabetes mellitus without complications; I10 Essential (primary) hypertension; Z88.0 Allergy status to penicillin; Z91.013 Allergy to seafood; Z79.4 Long term (current) use of insulin; Z79.899 Other long term (current) drug therapy; Z75.8 Other problems related to medical facilities and other health care
CPT/HCPCS: 36415; 80053; 82009; 82803; 83690; 83735; 84100; 85025; 96361; 96374; 96375; 99284; J1200; J1790; J7030

== ENCOUNTER 2023-08-06 19:04 | Emergency (ER) | payer MEDICAID ==
[2023-08-06 19:27] VITALS: PULSE 98
[2023-08-06 20:02] LABS: BASE EXCESS VENOUS 1.9 (-2.0-3.0); BICARBONATE,VENOUS 29 mEQ/mL (22-28); PCO2 VENOUS 55 mmHG (41-51); PH,VENOUS 7.32 (7.31-7.41)
[2023-08-06 20:03] LABS: PO2 VENOUS < 30 mmHG (35-45)
[2023-08-06 20:24] LABS: A/G RATIO 0.4 (0.9-1.6); ALBUMIN 1.8 g/dL (3.4-5.0); BILIRUBIN TOTAL 0.1 mg/dL (0.2-1.0); CALCIUM 8.3 mg/dL (8.5-10.1); CARBON DIOXIDE,CO2 26.3 mmol/L (21.0-32.0); CREATININE 2.3 mg/dL (0.8-1.3); EST CRCL DRUG DOSING (CG) 36.94 mL/min; MAGNESIUM 2.3 mg/dL (1.8-2.4); POTASSIUM,K 4.7 mmol/L (3.5-5.1); PROTEIN TOTAL,TP 5.9 g/dL (6.4-8.2)
[2023-08-06 20:49] LABS: BASOPHILS ABSOLUTE AUTO 0.03 K/uL (0.00-0.20); BASOPHILS PERCENT AUTO 0.5 % (0.0-1.0); EOSINOPHILS ABSOLUTE AUTO 0.31 K/uL (0.00-0.45); EOSINOPHILS PERCENT AUTO 5.6 % (0.0-6.0); HEMATOCRIT 29.2 % (42.0-52.0); HEMOGLOBIN 9.6 g/dL (14.0-18.0); IMMATURE GRAN ABSOLUTE AUTO 0.01 K/uL (0.00-0.05); IMMATURE GRAN PERCENT AUTO 0.2 % (0.0-0.4); LYMPHOCYTES ABSOLUTE AUTO 1.26 K/uL (1.00-4.80); LYMPHOCYTES PERCENT AUTO 22.7 % (24.0-44.0); MEAN CORPUSCULAR HEMOGLOBIN 28.4 pg (28.0-32.0); MEAN CORPUSCULAR HGB CONC 32.9 g/dL (32.0-36.0); MEAN CORPUSCULAR VOLUME 86.4 fL (83.0-99.0); MEAN PLATELET VOLUME 9.6 fL (9.4-12.4); MONOCYTES ABSOLUTE AUTO 0.17 K/uL (0.00-0.80); MONOCYTES PERCENT AUTO 3.1 % (0.0-8.0); NEUTROPHILS ABSOLUTE AUTO 3.78 K/uL (1.80-7.70); NEUTROPHILS PERCENT AUTO 67.9 % (41.0-71.0); PLATELET COUNT,PLT 270 K/uL (150-400); RED BLOOD CELL COUNT 3.38 M/uL (4.52-5.90); WHITE BLOOD CELL COUNT,WBC 5.56 K/uL (3.9-11.3)
[2023-08-06] MEDS: droPERidol 5 MG/2 ML SDV IVPUSH ONE (20:58)
[2023-08-06] MEDS: Sodium Chloride 0.9% 1,000 ML IV ONE (20:58)
[2023-08-06] MEDS: diphenhydrAMINE 25 MG Cap PO ONE (21:09)
[2023-08-06 22:04] VITALS: BP 186/106
== END 2023-08-06 22:04 | disposition home or self-care (01) ==
LOC: MW.ED 19:04
DX: R11.2 Nausea with vomiting, unspecified (principal); I10 Essential (primary) hypertension; E10.40 Type 1 diabetes mellitus with diabetic neuropathy, unspecified; Z91.018 Allergy to other foods; Z88.0 Allergy status to penicillin; Z79.4 Long term (current) use of insulin; Z79.899 Other long term (current) drug therapy
CPT/HCPCS: 36415; 80053; 82009; 82803; 83735; 85025; 93005; 96361; 96374; 99284; A9270; J1790; J7030; 93010

== ENCOUNTER 2023-08-27 19:53 | Emergency (ER) | payer MEDICAID ==
[2023-08-27] MEDS: Sodium Chloride 0.9% 1,000 ML IV ONE (20:39)
[2023-08-27 20:41] LABS: BASOPHILS ABSOLUTE AUTO 0.03 K/uL (0.00-0.20); BASOPHILS PERCENT AUTO 0.5 % (0.0-1.0); EOSINOPHILS ABSOLUTE AUTO 0.19 K/uL (0.00-0.45); EOSINOPHILS PERCENT AUTO 3.5 % (0.0-6.0); HEMATOCRIT 29.2 % (42.0-52.0); HEMOGLOBIN 9.4 g/dL (14.0-18.0); IMMATURE GRAN ABSOLUTE AUTO 0.02 K/uL (0.00-0.05); IMMATURE GRAN PERCENT AUTO 0.4 % (0.0-0.4); LYMPHOCYTES PERCENT AUTO 29.1 % (24.0-44.0); MEAN CORPUSCULAR HEMOGLOBIN 28.7 pg (28.0-32.0); MEAN CORPUSCULAR HGB CONC 32.2 g/dL (32.0-36.0); MEAN PLATELET VOLUME 9.1 fL (9.4-12.4); MONOCYTES ABSOLUTE AUTO 0.32 K/uL (0.00-0.80); MONOCYTES PERCENT AUTO 5.8 % (0.0-8.0); NEUTROPHILS ABSOLUTE AUTO 3.34 K/uL (1.80-7.70); NEUTROPHILS PERCENT AUTO 60.7 % (41.0-71.0); PH,VENOUS 7.36 (7.31-7.41); PLATELET COUNT,PLT 189 K/uL (150-400); RED BLOOD CELL COUNT 3.28 M/uL (4.52-5.90)
[2023-08-27 21:05] LABS: A/G RATIO 0.4 (0.9-1.6); ALBUMIN 1.6 g/dL (3.4-5.0); BILIRUBIN TOTAL 0.1 mg/dL (0.2-1.0); CALCIUM 8.3 mg/dL (8.5-10.1); CARBON DIOXIDE,CO2 22.6 mmol/L (21.0-32.0); CREATININE 2.8 mg/dL (0.8-1.3); EST CRCL DRUG DOSING (CG) 33.64 mL/min; MAGNESIUM 2.5 mg/dL (1.8-2.4); POTASSIUM,K 4.1 mmol/L (3.5-5.1); PROTEIN TOTAL,TP 5.4 g/dL (6.4-8.2)
[2023-08-27] MEDS: diphenhydrAMINE 50 MG/ML SDV IVPUSH ONE (21:45)
[2023-08-27] MEDS: droPERidol 5 MG/2 ML SDV IVPUSH ONE (21:45)
[2023-08-27 23:05] VITALS: BP 179/100; PULSE 99
== END 2023-08-27 23:00 | disposition home or self-care (01) ==
LOC: MW.ED 19:53
DX: R11.2 Nausea with vomiting, unspecified (principal); I10 Essential (primary) hypertension; E11.9 Type 2 diabetes mellitus without complications; Z79.4 Long term (current) use of insulin; Z79.899 Other long term (current) drug therapy; Z88.0 Allergy status to penicillin; Z91.013 Allergy to seafood; Z75.8 Other problems related to medical facilities and other health care
CPT/HCPCS: 36415; 80053; 82009; 82803; 82947; 83690; 83735; 85025; 96361; 96374; 96375; 99284; J1200; J1790; J7030; 99285

== ENCOUNTER 2023-09-12 22:24 | Emergency (ER) | payer MEDICAID ==
[2023-09-12] MEDS: Sodium Chloride 0.9% 1,000 ML IV ONE (23:33)
[2023-09-12] MEDS: diphenhydrAMINE 50 MG/ML SDV IVPUSH ONE (23:33)
[2023-09-12] MEDS: Ondansetron 4 MG/2 ML SDV IVPUSH ONE (23:33)
[2023-09-12 23:41] LABS: BASOPHILS ABSOLUTE AUTO 0.05 K/uL (0.00-0.20); BASOPHILS PERCENT AUTO 0.6 % (0.0-1.0); EOSINOPHILS ABSOLUTE AUTO 0.17 K/uL (0.00-0.45); EOSINOPHILS PERCENT AUTO 2.1 % (0.0-6.0); HEMATOCRIT 27.9 % (42.0-52.0); HEMOGLOBIN 9.6 g/dL (14.0-18.0); IMMATURE GRAN ABSOLUTE AUTO 0.04 K/uL (0.00-0.05); IMMATURE GRAN PERCENT AUTO 0.5 % (0.0-0.4); LYMPHOCYTES ABSOLUTE AUTO 1.85 K/uL (1.00-4.80); LYMPHOCYTES PERCENT AUTO 22.9 % (24.0-44.0); MEAN CORPUSCULAR HEMOGLOBIN 29.5 pg (28.0-32.0); MEAN CORPUSCULAR HGB CONC 34.4 g/dL (32.0-36.0); MEAN CORPUSCULAR VOLUME 85.8 fL (83.0-99.0); MEAN PLATELET VOLUME 9.3 fL (9.4-12.4); MONOCYTES ABSOLUTE AUTO 0.33 K/uL (0.00-0.80); MONOCYTES PERCENT AUTO 4.1 % (0.0-8.0); NEUTROPHILS ABSOLUTE AUTO 5.65 K/uL (1.80-7.70); NEUTROPHILS PERCENT AUTO 69.8 % (41.0-71.0); PLATELET COUNT,PLT 199 K/uL (150-400); RED BLOOD CELL COUNT 3.25 M/uL (4.52-5.90); WHITE BLOOD CELL COUNT,WBC 8.09 K/uL (3.9-11.3)
[2023-09-13 00:20] LABS: A/G RATIO 0.4 (0.9-1.6); ALBUMIN 1.4 g/dL (3.4-5.0); BILIRUBIN TOTAL 0.2 mg/dL (0.2-1.0); CALCIUM 9.1 mg/dL (8.5-10.1); CARBON DIOXIDE,CO2 24.4 mmol/L (21.0-32.0); CREATININE 3.2 mg/dL (0.8-1.3); EST CRCL DRUG DOSING (CG) 27.17 mL/min; POTASSIUM,K 3.5 mmol/L (3.5-5.1); PROTEIN TOTAL,TP 5.2 g/dL (6.4-8.2)
[2023-09-13] MEDS: Haloperidol Lactate 5 MG/ML SDV IM STA (01:17)
[2023-09-13] MEDS: Sodium Chloride 0.9% 1,000 ML IV ONE (01:18)
[2023-09-13] MEDS: Labetalol 100 MG/20 ML MDV IVPUSH STA (02:00)
[2023-09-13] MEDS: Dicyclomine 10 MG Cap PO ONE (02:34)
[2023-09-13 03:19] VITALS: BP 208/131; PULSE 101
== END 2023-09-13 03:33 | disposition home or self-care (01) ==
LOC: MW.ED 22:24
DX: R11.2 Nausea with vomiting, unspecified (principal); R10.10 Upper abdominal pain, unspecified; I10 Essential (primary) hypertension; E10.9 Type 1 diabetes mellitus without complications; R79.89 Other specified abnormal findings of blood chemistry; Z79.899 Other long term (current) drug therapy; Z79.4 Long term (current) use of insulin; Z88.0 Allergy status to penicillin; Z91.013 Allergy to seafood
CPT/HCPCS: 36415; 80053; 82947; 85025; 96361; 96372; 96374; 96375; 99284; A9270; J1200; J1630; J1921; J2405; J7030

== ENCOUNTER 2023-09-13 11:00 | Observation (INO) | payer MEDICAID ==
[2023-09-13] MEDS: Sodium Chloride 0.9% 1,000 ML IV ONE ×2 (13:04)
[2023-09-13] MEDS: Sodium Chloride 0.9% 10 ML Syringe FLUSH PRN (13:05)
[2023-09-13] MEDS: Sodium Chloride 0.9% 2.5 ML Syringe FLUSH PRN (13:05)
[2023-09-13] MEDS: Metoclopramide 10 MG/2 ML SDV IVPUSH ONE (13:05)
[2023-09-13 13:18] LABS: BASOPHILS ABSOLUTE AUTO 0.02 K/uL (0.00-0.20); BASOPHILS PERCENT AUTO 0.2 % (0.0-1.0); HEMOGLOBIN 9.6 g/dL (14.0-18.0); IMMATURE GRAN ABSOLUTE AUTO 0.03 K/uL (0.00-0.05); IMMATURE GRAN PERCENT AUTO 0.3 % (0.0-0.4); LYMPHOCYTES ABSOLUTE AUTO 0.72 K/uL (1.00-4.80); MEAN CORPUSCULAR HGB CONC 34.3 g/dL (32.0-36.0); MEAN CORPUSCULAR VOLUME 84.6 fL (83.0-99.0); MEAN PLATELET VOLUME 9.5 fL (9.4-12.4); MONOCYTES ABSOLUTE AUTO 0.15 K/uL (0.00-0.80); MONOCYTES PERCENT AUTO 1.7 % (0.0-8.0); NEUTROPHILS ABSOLUTE AUTO 8.08 K/uL (1.80-7.70); NEUTROPHILS PERCENT AUTO 89.8 % (41.0-71.0); PLATELET COUNT,PLT 214 K/uL (150-400); RED BLOOD CELL COUNT 3.31 M/uL (4.52-5.90)
[2023-09-13 13:23] LABS: PH,VENOUS 7.32 (7.31-7.41)
[2023-09-13 13:49] LABS: A/G RATIO 0.4 (0.9-1.6); ALANINE AMINOTRANSFERASE,ALT 17 IU/L (14-63); ALBUMIN 1.6 g/dL (3.4-5.0); ALKALINE PHOSPHATASE 75 U/L (46-116); ASPARTATE AMNIOTRANSFERASE,AST 29 IU/L (15-37); BILIRUBIN TOTAL 0.3 mg/dL (0.2-1.0); BLOOD UREA NITROGEN,BUN 38 mg/dL (7.0-18.0); CALCIUM 8.3 mg/dL (8.5-10.1); CARBON DIOXIDE,CO2 21.3 mmol/L (21.0-32.0); CHLORIDE,CL 111 mmol/L (98-107); CREATININE 3.3 mg/dL (0.8-1.3); EST CRCL DRUG DOSING (CG) 26.35 mL/min; ETHANOL BLOOD MEDICAL <3 mg/dL; GLUCOSE RANDOM 258 mg/dL (74-106); LIPASE 14 U/L (16-77); POTASSIUM,K 3.8 mmol/L (3.5-5.1); PROTEIN TOTAL,TP 5.4 g/dL (6.4-8.2); SODIUM,NA 144 mmol/L (136-148)
[2023-09-13 13:53] LABS: ESTIMATED GFR 26 mL/min (>60)
[2023-09-13 13:56] LABS: INR 0.97 (0.86-1.11)
[2023-09-13] MEDS: diphenhydrAMINE 50 MG/ML SDV IVPUSH ONE ×2 (14:25→17:28)
[2023-09-13] MEDS: cloNIDine 0.1 MG Tab PO ONE (17:18)
[2023-09-13] MEDS: Furosemide 40 MG Tab PO ONE (17:19)
[2023-09-13] MEDS ORDERED: Acetaminophen 325 MG Tab PO PRN (18:22)
[2023-09-13 18:25] LABS: APPEARANCE,URINE SLT CLOUDY; BILIRUBIN,URINE NEGATIVE (NEGATIVE); COLOR,URINE YELLOW; GLUCOSE,URINE >=1000 mg/dL (NEGATIVE); KETONES,URINE 15 mg/dL (NEGATIVE); LEUKOCYTE ESTERASE,URINE NEGATIVE (NEGATIVE); NITRITE,URINE NEGATIVE (NEGATIVE); OCCULT BLOOD,URINE LARGE (NEGATIVE); PROTEIN,URINE >=300 mg/dL (NEGATIVE); UROBILINOGEN,URINE 0.2 EU/dL (<2.0)
[2023-09-13] MEDS ORDERED: Glucagon,Human Recombinant 1 MG Vial IM PRN (18:31)
[2023-09-13] MEDS ORDERED: 50% Dextrose in Water 50 ML Syringe IVPUSH PRN (18:31)
[2023-09-13 18:32] LABS: AMPHETAMINES SCREEN, URINE NEGATIVE (CUTOFF=500); BARBITURATE SCREEN,URINE NEGATIVE (CUTOFF=200); BENZODIAZEPINES SCREEN,URINE NEGATIVE (CUTOFF=150); BUPRENORPHINE SCREEN,URINE PRESUMPTIVE POSITIVE (CUTOFF=10); METHADONE SCREEN, URINE NEGATIVE (CUTOFF=200); METHAMPHETAMINES SCREEN, URINE NEGATIVE (CUTOFF=500); OXYCODONE SCREEN,URINE NEGATIVE (CUT0FF=100); PCP SCREEN,URINE NEGATIVE (CUTOFF=25); THC SCREEN,URINE 20 NG/ML NEGATIVE (CUTOFF=50)
[2023-09-13 18:38] LABS: BACTERIA,URINE FEW (NEGATIVE); EPITHELIAL CELLS,URINE RARE (NONE-FEW); RBC,URINE 0-3 (0-2/HPF); WBC,URINE 35-40 (0-5/HPF)
[2023-09-13] MEDS: Enoxaparin 30 MG/0.3 ML Syringe SUBCUT SCH (18:44)
[2023-09-13] MEDS: Sodium Chloride 0.9% 1,000 ML IV SCH (18:44)
[2023-09-13] MEDS: Ondansetron 4 MG/2 ML SDV IVPUSH PRN (18:47)
[2023-09-13] MEDS: Docusate Sodium 100 MG Cap PO SCH (20:34)
[2023-09-13] MEDS: Polyethylene Glycol 3350 Powder 17 GM Packet PO SCH (20:34)
[2023-09-13] MEDS: diphenhydrAMINE 50 MG/ML SDV IVPUSH PRN (22:37)
[2023-09-14 06:17] LABS: BASOPHILS ABSOLUTE AUTO 0.03 K/uL (0.00-0.20); BASOPHILS PERCENT AUTO 0.3 % (0.0-1.0); EOSINOPHILS ABSOLUTE AUTO 0.01 K/uL (0.00-0.45); EOSINOPHILS PERCENT AUTO 0.1 % (0.0-6.0); HEMATOCRIT 27.2 % (42.0-52.0); HEMOGLOBIN 9.1 g/dL (14.0-18.0); IMMATURE GRAN ABSOLUTE AUTO 0.03 K/uL (0.00-0.05); IMMATURE GRAN PERCENT AUTO 0.3 % (0.0-0.4); LYMPHOCYTES ABSOLUTE AUTO 2.12 K/uL (1.00-4.80); MEAN CORPUSCULAR HEMOGLOBIN 28.9 pg (28.0-32.0); MEAN CORPUSCULAR HGB CONC 33.5 g/dL (32.0-36.0); MEAN CORPUSCULAR VOLUME 86.3 fL (83.0-99.0); MEAN PLATELET VOLUME 9.6 fL (9.4-12.4); MONOCYTES PERCENT AUTO 7.9 % (0.0-8.0); NEUTROPHILS ABSOLUTE AUTO 5.93 K/uL (1.80-7.70); NEUTROPHILS PERCENT AUTO 67.4 % (41.0-71.0); PLATELET COUNT,PLT 200 K/uL (150-400); RED BLOOD CELL COUNT 3.15 M/uL (4.52-5.90); WHITE BLOOD CELL COUNT,WBC 8.82 K/uL (3.9-11.3)
[2023-09-14 06:47] LABS: A/G RATIO 0.4 (0.9-1.6); ALBUMIN 1.4 g/dL (3.4-5.0); BILIRUBIN TOTAL 0.3 mg/dL (0.2-1.0); CALCIUM 8.2 mg/dL (8.5-10.1); CARBON DIOXIDE,CO2 21.4 mmol/L (21.0-32.0); CREATININE 3.2 mg/dL (0.8-1.3); EST CRCL DRUG DOSING (CG) 28.45 mL/min; POTASSIUM,K 3.6 mmol/L (3.5-5.1)
[2023-09-14] MEDS: Insulin Aspart 100 Units/ML 3 ML Pen SUBCUT SCH (07:35)
[2023-09-14] MEDS: Buprenorphine/Naloxone 8-2 MG Tab.SL SL SCH ×2 (15:59→21:05)
[2023-09-14] MEDS: Furosemide 40 MG Tab PO SCH (15:59)
[2023-09-14] MEDS: Labetalol 100 MG/20 ML MDV IVPUSH PRN (16:29)
[2023-09-14] MEDS: Metoclopramide Oral Soln 10 MG/10 ML UD Cup PO SCH (16:44)
[2023-09-14] MEDS: Insulin Glargine,Hum.Rec.Anlog 100 UNIT/ML 3 ML Pen SUBCUT SCH (16:45)
[2023-09-14] MEDS: Losartan 50 MG Tab PO SCH (20:17)
[2023-09-14] MEDS: Iron Polysaccharides Complex 150 MG Cap PO SCH (20:17)
[2023-09-14] MEDS: Timolol Maleate 0.5% Ophth Soln 5 ML Bottle EYERT SCH (21:05)
[2023-09-15 06:42] LABS: BASOPHILS ABSOLUTE AUTO 0.05 K/uL (0.00-0.20); BASOPHILS PERCENT AUTO 0.8 % (0.0-1.0); EOSINOPHILS ABSOLUTE AUTO 0.21 K/uL (0.00-0.45); EOSINOPHILS PERCENT AUTO 3.4 % (0.0-6.0); HEMATOCRIT 24.6 % (42.0-52.0); HEMOGLOBIN 8.4 g/dL (14.0-18.0); IMMATURE GRAN ABSOLUTE AUTO 0.02 K/uL (0.00-0.05); IMMATURE GRAN PERCENT AUTO 0.3 % (0.0-0.4); LYMPHOCYTES ABSOLUTE AUTO 1.54 K/uL (1.00-4.80); MEAN CORPUSCULAR HEMOGLOBIN 29.7 pg (28.0-32.0); MEAN CORPUSCULAR HGB CONC 34.1 g/dL (32.0-36.0); MEAN CORPUSCULAR VOLUME 86.9 fL (83.0-99.0); MONOCYTES ABSOLUTE AUTO 0.33 K/uL (0.00-0.80); MONOCYTES PERCENT AUTO 5.4 % (0.0-8.0); NEUTROPHILS ABSOLUTE AUTO 4.01 K/uL (1.80-7.70); NEUTROPHILS PERCENT AUTO 65.1 % (41.0-71.0); PLATELET COUNT,PLT 156 K/uL (150-400); RED BLOOD CELL COUNT 2.83 M/uL (4.52-5.90); WHITE BLOOD CELL COUNT,WBC 6.16 K/uL (3.9-11.3)
[2023-09-15 07:06] LABS: A/G RATIO 0.4 (0.9-1.6); ALBUMIN 1.2 g/dL (3.4-5.0); BILIRUBIN TOTAL 0.2 mg/dL (0.2-1.0); CALCIUM 7.6 mg/dL (8.5-10.1); CARBON DIOXIDE,CO2 20.9 mmol/L (21.0-32.0); EST CRCL DRUG DOSING (CG) 30.35 mL/min; POTASSIUM,K 4.2 mmol/L (3.5-5.1); PROTEIN TOTAL,TP 4.3 g/dL (6.4-8.2)
[2023-09-15] MEDS: Metoclopramide 5 MG Tab PO SCH (08:40)
[2023-09-15] MEDS: Insulin Glargine,Hum.Rec.Anlog 100 UNIT/ML 3 ML Pen SUBCUT SCH (08:43)
[2023-09-15] MEDS: cloNIDine 0.1 MG Tab PO ONE (10:05)
[2023-09-15] MEDS ORDERED: 50% Dextrose in Water 50 ML Syringe IVPUSH PRN (11:00)
[2023-09-15] MEDS ORDERED: Glucagon,Human Recombinant 1 MG Vial IM PRN (11:00)
[2023-09-15] MEDS: Insulin Regular, Human 100 Units/ML 10 ML Vial IVPUSH ONE (12:02)
[2023-09-15] MEDS: Insulin Regular, Human 100 Units/ML 10 ML Vial SUBCUT ONE (12:14)
[2023-09-15 12:23] VITALS: BP 146/96; PULSE 90
== END 2023-09-15 14:00 | disposition home or self-care (01) ==
LOC: MW.ED 11:00 → MW.MS 17:00
PROVIDERS: ADMIT Family Medicine; ATTEND Family Medicine
DX: E10.43 Type 1 diabetes mellitus with diabetic autonomic (poly)neuropathy (principal); K31.84 Gastroparesis; E10.65 Type 1 diabetes mellitus with hyperglycemia; E10.22 Type 1 diabetes mellitus with diabetic chronic kidney disease; I12.9 Hypertensive chronic kidney disease with stage 1 through stage 4 chronic kidney disease, or unspecified chronic kidney disease; N18.4 Chronic kidney disease, stage 4 (severe); N17.9 Acute kidney failure, unspecified; K56.41 Fecal impaction; K85.90 Acute pancreatitis without necrosis or infection, unspecified; R33.9 Retention of urine, unspecified; F41.8 Other specified anxiety disorders; Z79.4 Long term (current) use of insulin; Z79.899 Other long term (current) drug therapy; Z88.1 Allergy status to other antibiotic agents; Z91.013 Allergy to seafood; Z91.199 Patient's noncompliance with other medical treatment and regimen due to unspecified reason
CPT/HCPCS: 36415; 74176; 76705; 80053; 80305; 80307; 81001; 82009; 82803; 82947; 83690; 85025; 85610; 96361; 96374; 96375; 99285; A9270; J0574; J1200; J1650; J1815; J1921; J2405; J2765; J3490; J7030; 96372; 96376; 99284; G0378

== ENCOUNTER 2023-09-16 23:37 | Emergency (ER) | payer MEDICAID ==
[2023-09-17] MEDS: Sodium Chloride 0.9% 1,000 ML IV ONE (00:42)
[2023-09-17] MEDS: droPERidol 5 MG/2 ML SDV IVPUSH ONE (00:42)
[2023-09-17] MEDS: Magnesium Sulfate/Water 2 GM in Premix Bag 1 BAG IV ONE (00:43)
[2023-09-17] MEDS: Ketorolac 30 MG/ML SDV IVPUSH STA (00:51)
[2023-09-17 00:57] LABS: BASOPHILS ABSOLUTE AUTO 0.05 K/uL (0.00-0.20); BASOPHILS PERCENT AUTO 0.4 % (0.0-1.0); EOSINOPHILS ABSOLUTE AUTO 0.11 K/uL (0.00-0.45); EOSINOPHILS PERCENT AUTO 0.9 % (0.0-6.0); HEMATOCRIT 31.1 % (42.0-52.0); HEMOGLOBIN 10.6 g/dL (14.0-18.0); IMMATURE GRAN ABSOLUTE AUTO 0.03 K/uL (0.00-0.05); IMMATURE GRAN PERCENT AUTO 0.3 % (0.0-0.4); LYMPHOCYTES PERCENT AUTO 7.5 % (24.0-44.0); MEAN CORPUSCULAR HEMOGLOBIN 29.2 pg (28.0-32.0); MEAN CORPUSCULAR HGB CONC 34.1 g/dL (32.0-36.0); MEAN CORPUSCULAR VOLUME 85.7 fL (83.0-99.0); MEAN PLATELET VOLUME 9.3 fL (9.4-12.4); MONOCYTES ABSOLUTE AUTO 0.42 K/uL (0.00-0.80); MONOCYTES PERCENT AUTO 3.5 % (0.0-8.0); NEUTROPHILS ABSOLUTE AUTO 10.44 K/uL (1.80-7.70); NEUTROPHILS PERCENT AUTO 87.4 % (41.0-71.0); PLATELET COUNT,PLT 176 K/uL (150-400); RED BLOOD CELL COUNT 3.63 M/uL (4.52-5.90); WHITE BLOOD CELL COUNT,WBC 11.95 K/uL (3.9-11.3)
[2023-09-17] MEDS: diphenhydrAMINE 50 MG/ML SDV IVPUSH ONE (01:04)
[2023-09-17 01:19] LABS: A/G RATIO 0.4 (0.9-1.6); ALBUMIN 1.5 g/dL (3.4-5.0); BILIRUBIN TOTAL 0.3 mg/dL (0.2-1.0); CALCIUM 8.5 mg/dL (8.5-10.1); CARBON DIOXIDE,CO2 20.1 mmol/L (21.0-32.0); CREATININE 3.2 mg/dL (0.8-1.3); EST CRCL DRUG DOSING (CG) 27.17 mL/min; MAGNESIUM 2.1 mg/dL (1.8-2.4); POTASSIUM,K 4.2 mmol/L (3.5-5.1); PROTEIN TOTAL,TP 5.1 g/dL (6.4-8.2)
[2023-09-17 02:35] VITALS: PULSE 116
[2023-09-17] MEDS: diphenhydrAMINE 25 MG Cap PO STA (04:33)
[2023-09-17 04:51] LABS: APPEARANCE,URINE CLEAR; BILIRUBIN,URINE NEGATIVE (NEGATIVE); COLOR,URINE YELLOW; GLUCOSE,URINE >=1000 mg/dL (NEGATIVE); KETONES,URINE NEGATIVE (NEGATIVE); LEUKOCYTE ESTERASE,URINE NEGATIVE (NEGATIVE); NITRITE,URINE NEGATIVE (NEGATIVE); OCCULT BLOOD,URINE SMALL (NEGATIVE); PROTEIN,URINE 100 mg/dL (NEGATIVE); UROBILINOGEN,URINE 0.2 EU/dL (<2.0)
[2023-09-17 05:00] LABS: BACTERIA,URINE FEW (NEGATIVE); MUCUS,URINE LIGHT (NONE-MOD); SQUAMOUS EPITHELIAL CELLS,UR NOT SEEN
[2023-09-17 05:47] VITALS: BP 180/100
[2023-09-19] MEDS ORDERED: Piperacillin/Tazobactam 3.375 GM in Sodium Chloride 0.9% 100 ML IV ONE (02:22)
[2023-09-19] MEDS ORDERED: Piperacillin/Tazobactam 4.5 GM in Sodium Chloride 0.9% 100 ML IV ONE (02:30)
== END 2023-09-17 05:47 | disposition home or self-care (01) ==
LOC: MW.ED 23:37
DX: E10.43 Type 1 diabetes mellitus with diabetic autonomic (poly)neuropathy (principal); K31.84 Gastroparesis; I12.9 Hypertensive chronic kidney disease with stage 1 through stage 4 chronic kidney disease, or unspecified chronic kidney disease; N18.4 Chronic kidney disease, stage 4 (severe); E10.22 Type 1 diabetes mellitus with diabetic chronic kidney disease; Z79.4 Long term (current) use of insulin; Z79.899 Other long term (current) drug therapy; Z88.0 Allergy status to penicillin; Z91.013 Allergy to seafood
CPT/HCPCS: 36415; 80053; 81001; 83690; 83735; 85025; 96361; 96365; 96375; 99284; A9270; J1200; J1790; J3475; J7030; 99285

== ENCOUNTER 2023-09-17 21:14 | Emergency (ER) | payer MEDICAID ==
[2023-09-17] MEDS: Sodium Chloride 0.9% 10 ML Syringe FLUSH PRN (21:37)
[2023-09-17] MEDS: Sodium Chloride 0.9% 2.5 ML Syringe FLUSH PRN (21:37)
[2023-09-17] MEDS: Sodium Chloride 0.9% 1,000 ML IV STA ×2 (21:37→21:54)
[2023-09-17 21:48] LABS: BASOPHILS ABSOLUTE AUTO 0.02 K/uL (0.00-0.20); BASOPHILS PERCENT AUTO 0.2 % (0.0-1.0); HEMATOCRIT 28.1 % (42.0-52.0); HEMOGLOBIN 9.5 g/dL (14.0-18.0); IMMATURE GRAN ABSOLUTE AUTO 0.04 K/uL (0.00-0.05); IMMATURE GRAN PERCENT AUTO 0.4 % (0.0-0.4); LYMPHOCYTES ABSOLUTE AUTO 1.71 K/uL (1.00-4.80); LYMPHOCYTES PERCENT AUTO 15.1 % (24.0-44.0); MEAN CORPUSCULAR HGB CONC 33.8 g/dL (32.0-36.0); MEAN CORPUSCULAR VOLUME 85.7 fL (83.0-99.0); MEAN PLATELET VOLUME 9.4 fL (9.4-12.4); MONOCYTES ABSOLUTE AUTO 0.53 K/uL (0.00-0.80); MONOCYTES PERCENT AUTO 4.7 % (0.0-8.0); NEUTROPHILS ABSOLUTE AUTO 9.05 K/uL (1.80-7.70); NEUTROPHILS PERCENT AUTO 79.6 % (41.0-71.0); PLATELET COUNT,PLT 275 K/uL (150-400); RED BLOOD CELL COUNT 3.28 M/uL (4.52-5.90); WHITE BLOOD CELL COUNT,WBC 11.35 K/uL (3.9-11.3)
[2023-09-17] MEDS: droPERidol 5 MG/2 ML SDV IVPUSH ONE (21:49)
[2023-09-17 22:34] LABS: A/G RATIO 0.5 (0.9-1.6); ALBUMIN 1.5 g/dL (3.4-5.0); BILIRUBIN TOTAL 0.2 mg/dL (0.2-1.0); CALCIUM 8.3 mg/dL (8.5-10.1); CARBON DIOXIDE,CO2 18.5 mmol/L (21.0-32.0); CREATININE 3.6 mg/dL (0.8-1.3); EST CRCL DRUG DOSING (CG) 27.06 mL/min; POTASSIUM,K 4.4 mmol/L (3.5-5.1); PROTEIN TOTAL,TP 4.6 g/dL (6.4-8.2)
[2023-09-18 00:04] VITALS: BP 211/124; PULSE 112
[2023-09-18] MEDS: diphenhydrAMINE 25 MG Cap PO ONE (00:19)
== END 2023-09-18 00:50 | disposition home or self-care (01) ==
LOC: MW.ED 21:14
DX: R11.2 Nausea with vomiting, unspecified (principal); I10 Essential (primary) hypertension; E10.9 Type 1 diabetes mellitus without complications; Z75.8 Other problems related to medical facilities and other health care; Z79.4 Long term (current) use of insulin; Z79.899 Other long term (current) drug therapy; Z88.0 Allergy status to penicillin; Z91.013 Allergy to seafood
CPT/HCPCS: 36415; 80053; 83690; 85025; 96361; 96374; 99284; A9270; J1790; J3490; J7030

== ENCOUNTER 2023-09-19 01:16 | Inpatient (IN) | payer MEDICAID ==
[2023-09-19 01:42] LABS: BASOPHILS ABSOLUTE AUTO 0.02 K/uL (0.00-0.20); BASOPHILS PERCENT AUTO 0.1 % (0.0-1.0); HEMATOCRIT 25.9 % (42.0-52.0); HEMOGLOBIN 8.8 g/dL (14.0-18.0); IMMATURE GRAN PERCENT AUTO 0.6 % (0.0-0.4); LYMPHOCYTES ABSOLUTE AUTO 1.83 K/uL (1.00-4.80); LYMPHOCYTES PERCENT AUTO 10.6 % (24.0-44.0); MEAN CORPUSCULAR HEMOGLOBIN 29.3 pg (28.0-32.0); MEAN CORPUSCULAR VOLUME 86.3 fL (83.0-99.0); MEAN PLATELET VOLUME 9.3 fL (9.4-12.4); MONOCYTES ABSOLUTE AUTO 0.52 K/uL (0.00-0.80); NEUTROPHILS ABSOLUTE AUTO 14.78 K/uL (1.80-7.70); NEUTROPHILS PERCENT AUTO 85.7 % (41.0-71.0); PLATELET COUNT,PLT 328 K/uL (150-400); WHITE BLOOD CELL COUNT,WBC 17.25 K/uL (3.9-11.3)
[2023-09-19] MEDS: Sodium Chloride 0.9% 1,000 ML IV STA ×2 (01:50→03:21)
[2023-09-19] MEDS: Sodium Chloride 0.9% 10 ML Syringe FLUSH PRN ×2 (01:51→03:28)
[2023-09-19] MEDS: Sodium Chloride 0.9% 2.5 ML Syringe FLUSH PRN ×2 (01:51→03:28)
[2023-09-19 01:55] LABS: BILIRUBIN,URINE NEGATIVE (NEGATIVE); COLOR,URINE YELLOW; GLUCOSE,URINE >=1000 mg/dL (NEGATIVE); KETONES,URINE 15 mg/dL (NEGATIVE); LEUKOCYTE ESTERASE,URINE NEGATIVE (NEGATIVE); NITRITE,URINE NEGATIVE (NEGATIVE); OCCULT BLOOD,URINE MODERATE (NEGATIVE); PH,URINE 5.5 (5.0-8.0); PROTEIN,URINE >=300 mg/dL (NEGATIVE); UROBILINOGEN,URINE 0.2 EU/dL (<2.0)
[2023-09-19 01:59] LABS: APPEARANCE,URINE SLT CLOUDY
[2023-09-19 02:01] LABS: BACTERIA,URINE 4+ (NEGATIVE); EPITHELIAL CELLS,URINE NOT SEEN (NONE-FEW); HYALINE CASTS,URINE 0-1 (0-2/LPF); MUCUS,URINE LIGHT (NONE-MOD)
[2023-09-19 02:12] LABS: LACTIC ACID 1.3 mmol/L (0.4-2.0)
[2023-09-19 02:15] LABS: A/G RATIO 0.4 (0.9-1.6); ALBUMIN 1.4 g/dL (3.4-5.0); BILIRUBIN TOTAL 0.2 mg/dL (0.2-1.0); CALCIUM 8.7 mg/dL (8.5-10.1); CARBON DIOXIDE,CO2 14.4 mmol/L (21.0-32.0); CREATININE 4.3 mg/dL (0.8-1.3); EST CRCL DRUG DOSING (CG) 25.3 mL/min; POTASSIUM,K 4.6 mmol/L (3.5-5.1)
[2023-09-19 02:56] LABS: BASE EXCESS VENOUS -14.9 (-2.0-3.0); PH,VENOUS 7.19 (7.31-7.41)
[2023-09-19] MEDS ORDERED: 50% Dextrose in Water 50 ML Syringe IVPUSH PRN (03:09)
[2023-09-19] MEDS ORDERED: Glucagon,Human Recombinant 1 MG Vial IM PRN ×2 (03:09→16:48)
[2023-09-19] MEDS: Piperacillin/Tazobactam 4.5 GM in Sodium Chloride 0.9% 100 ML IV ONE (03:23)
[2023-09-19] MEDS: Sodium Chloride 0.9% 20 ML SDV IV PRN (03:29)
[2023-09-19] MEDS: Insulin Regular, Human 100 Units/ML 10 ML Vial IVPUSH ONE (03:51)
[2023-09-19] MEDS: Insulin Regular in 0.9 % NACL 100 ML IV SCH ×2 (04:14→05:30)
[2023-09-19] MEDS: Azithromycin 500 MG in Sodium Chloride 0.9% 250 ML IV ONE (04:37)
[2023-09-19] MEDS ORDERED: Acetaminophen 325 MG Tab PO PRN (05:40)
[2023-09-19] MEDS ORDERED: Insulin Regular in 0.9 % NACL 100 ML IV SCH (05:45)
[2023-09-19 06:23] LABS: BASOPHILS ABSOLUTE AUTO 0.01 K/uL (0.00-0.20); BASOPHILS PERCENT AUTO 0.1 % (0.0-1.0); HEMATOCRIT 23.3 % (42.0-52.0); IMMATURE GRAN ABSOLUTE AUTO 0.08 K/uL (0.00-0.05); IMMATURE GRAN PERCENT AUTO 0.5 % (0.0-0.4); LYMPHOCYTES ABSOLUTE AUTO 1.52 K/uL (1.00-4.80); LYMPHOCYTES PERCENT AUTO 10.3 % (24.0-44.0); MEAN CORPUSCULAR HEMOGLOBIN 29.9 pg (28.0-32.0); MEAN CORPUSCULAR HGB CONC 34.3 g/dL (32.0-36.0); MEAN CORPUSCULAR VOLUME 86.9 fL (83.0-99.0); MEAN PLATELET VOLUME 9.4 fL (9.4-12.4); MONOCYTES ABSOLUTE AUTO 0.63 K/uL (0.00-0.80); MONOCYTES PERCENT AUTO 4.3 % (0.0-8.0); NEUTROPHILS ABSOLUTE AUTO 12.45 K/uL (1.80-7.70); NEUTROPHILS PERCENT AUTO 84.8 % (41.0-71.0); PLATELET COUNT,PLT 276 K/uL (150-400); RED BLOOD CELL COUNT 2.68 M/uL (4.52-5.90); WHITE BLOOD CELL COUNT,WBC 14.69 K/uL (3.9-11.3)
[2023-09-19] MEDS: Pantoprazole 40 MG in Sodium Chloride 0.9% 10 ML IVPUSH SCH (06:41)
[2023-09-19] MEDS: Piperacillin/Tazobactam 4.5 GM in Sodium Chloride 0.9% 100 ML IV SCH (06:42)
[2023-09-19] MEDS: Sodium Chloride 0.9% 1,000 ML IV SCH (06:43)
[2023-09-19 06:52] LABS: CALCIUM 8.4 mg/dL (8.5-10.1); CARBON DIOXIDE,CO2 14.6 mmol/L (21.0-32.0); CREATININE 4.1 mg/dL (0.8-1.3); EST CRCL DRUG DOSING (CG) 26.53 mL/min; MAGNESIUM 2.4 mg/dL (1.8-2.4); POTASSIUM,K 3.8 mmol/L (3.5-5.1)
[2023-09-19] MEDS: Dextrose 5%-0.45% NaCl 1,000 ML IV SCH (08:31)
[2023-09-19] MEDS: Furosemide 20 MG/2 ML VIAL IVPUSH ONE (08:31)
[2023-09-19] MEDS: diphenhydrAMINE 50 MG/ML SDV IVPUSH PRN (08:53)
[2023-09-19] MEDS: Enoxaparin 30 MG/0.3 ML Syringe SUBCUT SCH (10:41)
[2023-09-19 10:55] LABS: CALCIUM 8.7 mg/dL (8.5-10.1); EST CRCL DRUG DOSING (CG) 24.6 mL/min; POTASSIUM,K 3.7 mmol/L (3.5-5.1)
[2023-09-19] MEDS: Heparin Sodium 5,000 Units/ML Vial SUBCUT SCH (11:39)
[2023-09-19] MEDS: Labetalol 100 MG/20 ML MDV IVPUSH PRN (12:40)
[2023-09-19] MEDS: cloNIDine 0.1 MG Tab PO SCH (13:23)
[2023-09-19 14:27] LABS: CALCIUM 8.3 mg/dL (8.5-10.1); CARBON DIOXIDE,CO2 22.6 mmol/L (21.0-32.0); EST CRCL DRUG DOSING (CG) 24.6 mL/min; POTASSIUM,K 3.4 mmol/L (3.5-5.1)
[2023-09-19] MEDS: Ondansetron 4 MG/2 ML SDV IVPUSH PRN (14:43)
[2023-09-19] MEDS: Potassium Chloride 100 ML IV SCH (15:56)
[2023-09-19] MEDS: Insulin Aspart 100 Units/ML 3 ML Pen SUBCUT SCH (17:00)
[2023-09-19 18:52] LABS: CALCIUM 8.1 mg/dL (8.5-10.1); CARBON DIOXIDE,CO2 18.3 mmol/L (21.0-32.0); CREATININE 3.8 mg/dL (0.8-1.3); EST CRCL DRUG DOSING (CG) 25.89 mL/min; POTASSIUM,K 3.9 mmol/L (3.5-5.1)
[2023-09-19 22:16] LABS: CALCIUM 8.3 mg/dL (8.5-10.1); CARBON DIOXIDE,CO2 16.9 mmol/L (21.0-32.0); CREATININE 3.9 mg/dL (0.8-1.3); EST CRCL DRUG DOSING (CG) 25.23 mL/min; POTASSIUM,K 3.9 mmol/L (3.5-5.1)
[2023-09-19] MEDS: Lactated Ringers 1,000 ML IV SCH (23:50)
[2023-09-20 02:12] LABS: BASE EXCESS VENOUS -11.1 (-2.0-3.0); PH,VENOUS 7.28 (7.31-7.41)
[2023-09-20 02:35] LABS: EST CRCL DRUG DOSING (CG) 24.6 mL/min; POTASSIUM,K 3.9 mmol/L (3.5-5.1)
[2023-09-20] MEDS: Insulin Aspart 100 Units/ML 3 ML Pen SUBCUT SCH (03:07)
[2023-09-20] MEDS: Azithromycin 500 MG in Sodium Chloride 0.9% 250 ML IV SCH (04:39)
[2023-09-20 05:56] LABS: BASOPHILS ABSOLUTE AUTO 0.02 K/uL (0.00-0.20); BASOPHILS PERCENT AUTO 0.2 % (0.0-1.0); EOSINOPHILS ABSOLUTE AUTO 0.02 K/uL (0.00-0.45); EOSINOPHILS PERCENT AUTO 0.2 % (0.0-6.0); HEMOGLOBIN 7.5 g/dL (14.0-18.0); IMMATURE GRAN ABSOLUTE AUTO 0.03 K/uL (0.00-0.05); IMMATURE GRAN PERCENT AUTO 0.3 % (0.0-0.4); LYMPHOCYTES ABSOLUTE AUTO 1.86 K/uL (1.00-4.80); LYMPHOCYTES PERCENT AUTO 18.2 % (24.0-44.0); MEAN CORPUSCULAR HEMOGLOBIN 28.6 pg (28.0-32.0); MEAN CORPUSCULAR HGB CONC 32.6 g/dL (32.0-36.0); MEAN CORPUSCULAR VOLUME 87.8 fL (83.0-99.0); MEAN PLATELET VOLUME 9.1 fL (9.4-12.4); MONOCYTES ABSOLUTE AUTO 0.55 K/uL (0.00-0.80); MONOCYTES PERCENT AUTO 5.4 % (0.0-8.0); NEUTROPHILS ABSOLUTE AUTO 7.72 K/uL (1.80-7.70); NEUTROPHILS PERCENT AUTO 75.7 % (41.0-71.0); PLATELET COUNT,PLT 231 K/uL (150-400); RED BLOOD CELL COUNT 2.62 M/uL (4.52-5.90)
[2023-09-20 06:24] LABS: A/G RATIO 0.3 (0.9-1.6); BILIRUBIN TOTAL 0.2 mg/dL (0.2-1.0); CALCIUM 8.3 mg/dL (8.5-10.1); CARBON DIOXIDE,CO2 16.6 mmol/L (21.0-32.0); EST CRCL DRUG DOSING (CG) 24.6 mL/min; MAGNESIUM 2.2 mg/dL (1.8-2.4); POTASSIUM,K 3.7 mmol/L (3.5-5.1); PROTEIN TOTAL,TP 4.1 g/dL (6.4-8.2)
[2023-09-20] MEDS: Insulin Glargine,Hum.Rec.Anlog 100 UNIT/ML 3 ML Pen SUBCUT SCH (09:13)
[2023-09-20] MEDS: Sodium Chloride 0.45% 1,000 ML IV SCH (09:26)
[2023-09-20] MEDS: Iron Polysaccharides Complex 150 MG Cap PO SCH (10:00)
[2023-09-20] MEDS: Furosemide 20 MG/2 ML VIAL IVPUSH SCH (10:00)
[2023-09-20 10:16] LABS: CALCIUM 8.5 mg/dL (8.5-10.1); CARBON DIOXIDE,CO2 20.4 mmol/L (21.0-32.0); EST CRCL DRUG DOSING (CG) 25.12 mL/min; POTASSIUM,K 3.7 mmol/L (3.5-5.1)
[2023-09-20] MEDS ORDERED: Insulin Glargine,Hum.Rec.Anlog 100 UNIT/ML 3 ML Pen SUBCUT SCH (18:00)
[2023-09-20 18:53] LABS: CALCIUM 8.2 mg/dL (8.5-10.1); CARBON DIOXIDE,CO2 17.6 mmol/L (21.0-32.0); EST CRCL DRUG DOSING (CG) 25.12 mL/min
[2023-09-20] MEDS: diphenhydrAMINE 50 MG/ML SDV IVPUSH PRN (19:23)
[2023-09-20] MEDS: Losartan 50 MG Tab PO SCH (20:49)
[2023-09-21] MEDS ORDERED: 50% Dextrose in Water 50 ML Syringe IVPUSH PRN (00:23)
[2023-09-21] MEDS ORDERED: Glucagon,Human Recombinant 1 MG Vial IM PRN (00:23)
[2023-09-21] MEDS: Insulin Aspart 100 Units/ML 3 ML Pen SUBCUT SCH ×2 (00:51→20:20)
[2023-09-21] MEDS: Insulin Regular in 0.9 % NACL 100 ML IV SCH (02:59)
[2023-09-21 03:19] LABS: CALCIUM 7.6 mg/dL (8.5-10.1); CARBON DIOXIDE,CO2 18.7 mmol/L (21.0-32.0); CREATININE 3.8 mg/dL (0.8-1.3); EST CRCL DRUG DOSING (CG) 26.44 mL/min; POTASSIUM,K 3.4 mmol/L (3.5-5.1)
[2023-09-21] MEDS: Sodium Chloride 0.9% 1,000 ML IV SCH (04:37)
[2023-09-21] MEDS: Potassium Chloride 100 ML IV SCH (05:00)
[2023-09-21] MEDS: Dextrose 5%-0.45% NaCl 1,000 ML IV SCH (05:50)
[2023-09-21 07:25] LABS: BASOPHILS ABSOLUTE AUTO 0.02 K/uL (0.00-0.20); BASOPHILS PERCENT AUTO 0.3 % (0.0-1.0); EOSINOPHILS PERCENT AUTO 1.6 % (0.0-6.0); HEMATOCRIT 20.5 % (42.0-52.0); IMMATURE GRAN ABSOLUTE AUTO 0.03 K/uL (0.00-0.05); IMMATURE GRAN PERCENT AUTO 0.5 % (0.0-0.4); LYMPHOCYTES ABSOLUTE AUTO 1.88 K/uL (1.00-4.80); LYMPHOCYTES PERCENT AUTO 29.5 % (24.0-44.0); MEAN CORPUSCULAR HEMOGLOBIN 29.3 pg (28.0-32.0); MEAN CORPUSCULAR HGB CONC 34.1 g/dL (32.0-36.0); MEAN CORPUSCULAR VOLUME 85.8 fL (83.0-99.0); MEAN PLATELET VOLUME 9.2 fL (9.4-12.4); MONOCYTES PERCENT AUTO 6.3 % (0.0-8.0); NEUTROPHILS ABSOLUTE AUTO 3.94 K/uL (1.80-7.70); NEUTROPHILS PERCENT AUTO 61.8 % (41.0-71.0); PLATELET COUNT,PLT 187 K/uL (150-400); RED BLOOD CELL COUNT 2.39 M/uL (4.52-5.90); WHITE BLOOD CELL COUNT,WBC 6.37 K/uL (3.9-11.3)
[2023-09-21 07:48] LABS: A/G RATIO 0.3 (0.9-1.6); ALBUMIN 0.9 g/dL (3.4-5.0); BILIRUBIN TOTAL 0.1 mg/dL (0.2-1.0); CALCIUM 7.8 mg/dL (8.5-10.1); CARBON DIOXIDE,CO2 17.1 mmol/L (21.0-32.0); CREATININE 3.7 mg/dL (0.8-1.3); EST CRCL DRUG DOSING (CG) 28.62 mL/min; MAGNESIUM 1.8 mg/dL (1.8-2.4); PHOSPHORUS 5.4 mg/dL (2.6-4.7); POTASSIUM,K 3.3 mmol/L (3.5-5.1); PROTEIN TOTAL,TP 3.8 g/dL (6.4-8.2)
[2023-09-21] MEDS ORDERED: Furosemide 40 MG Tab PO SCH (09:00)
[2023-09-21] MEDS: Potassium Chloride 10 MEQ in Premix Bag 1 BAG IV SCH ×2 (09:03→11:08)
[2023-09-21] MEDS: Insulin Glargine,Hum.Rec.Anlog 100 UNIT/ML 3 ML Pen SUBCUT SCH (09:06)
[2023-09-21] MEDS: Potassium Chloride 10% 20 MEQ/15 ML Soln 15 ML UD Cup PO ONE (09:08)
[2023-09-21 11:05] LABS: CALCIUM 7.8 mg/dL (8.5-10.1); CARBON DIOXIDE,CO2 18.6 mmol/L (21.0-32.0); CREATININE 3.6 mg/dL (0.8-1.3); EST CRCL DRUG DOSING (CG) 29.42 mL/min; POTASSIUM,K 3.1 mmol/L (3.5-5.1)
[2023-09-21] MEDS: OPTH EYERT SCH (13:36)
[2023-09-21] MEDS: BRIMONIDINE TARTRATE 0.2% EYERT SCH (13:36)
[2023-09-21] MEDS: TIMOLOL MALEATE 0.5% EYEBOTH SCH (13:37)
[2023-09-21] MEDS: OPTH EYEBOTH SCH (13:37)
[2023-09-21 14:56] LABS: HEMATOCRIT 23.1 % (42.0-52.0); HEMOGLOBIN 7.7 g/dL (14.0-18.0); MEAN CORPUSCULAR HEMOGLOBIN 29.2 pg (28.0-32.0); MEAN CORPUSCULAR HGB CONC 33.3 g/dL (32.0-36.0); MEAN CORPUSCULAR VOLUME 87.5 fL (83.0-99.0); PLATELET COUNT,PLT 239 K/uL (150-400); RED BLOOD CELL COUNT 2.64 M/uL (4.52-5.90); WHITE BLOOD CELL COUNT,WBC 6.27 K/uL (3.9-11.3)
[2023-09-21 15:12] LABS: CARBON DIOXIDE,CO2 21.3 mmol/L (21.0-32.0); CREATININE 3.6 mg/dL (0.8-1.3); EST CRCL DRUG DOSING (CG) 29.42 mL/min; POTASSIUM,K 3.5 mmol/L (3.5-5.1)
[2023-09-21] MEDS: Sucralfate 1 GM Tab PO SCH (15:57)
[2023-09-21] MEDS ORDERED: Piperacillin/Tazobactam 4.5 GM in Sodium Chloride 0.9% 100 ML IV SCH (16:00)
[2023-09-21] MEDS: Piperacillin/Tazobactam 4.5 GM in Sodium Chloride 0.9% 100 ML IV SCH (17:03)
[2023-09-21 19:25] LABS: CARBON DIOXIDE,CO2 21.2 mmol/L (21.0-32.0); CREATININE 3.5 mg/dL (0.8-1.3); EST CRCL DRUG DOSING (CG) 30.26 mL/min; POTASSIUM,K 3.6 mmol/L (3.5-5.1)
[2023-09-21] MEDS: Calcium Carbonate 500 MG Tab.Chew PO ONE (19:56)
[2023-09-21] MEDS: Pantoprazole 40 MG in Sodium Chloride 0.9% 10 ML IVPUSH SCH (19:57)
[2023-09-21] MEDS: Heparin Sodium 5,000 Units/ML Vial SUBCUT SCH (21:16)
[2023-09-22 10:41] LABS: BASOPHILS ABSOLUTE AUTO 0.04 K/uL (0.00-0.20); BASOPHILS PERCENT AUTO 0.6 % (0.0-1.0); EOSINOPHILS ABSOLUTE AUTO 0.26 K/uL (0.00-0.45); EOSINOPHILS PERCENT AUTO 3.9 % (0.0-6.0); HEMATOCRIT 23.5 % (42.0-52.0); HEMOGLOBIN 8.2 g/dL (14.0-18.0); IMMATURE GRAN ABSOLUTE AUTO 0.01 K/uL (0.00-0.05); IMMATURE GRAN PERCENT AUTO 0.2 % (0.0-0.4); LYMPHOCYTES ABSOLUTE AUTO 2.27 K/uL (1.00-4.80); LYMPHOCYTES PERCENT AUTO 34.2 % (24.0-44.0); MEAN CORPUSCULAR HEMOGLOBIN 29.4 pg (28.0-32.0); MEAN CORPUSCULAR HGB CONC 34.9 g/dL (32.0-36.0); MEAN CORPUSCULAR VOLUME 84.2 fL (83.0-99.0); MONOCYTES ABSOLUTE AUTO 0.37 K/uL (0.00-0.80); MONOCYTES PERCENT AUTO 5.6 % (0.0-8.0); NEUTROPHILS ABSOLUTE AUTO 3.69 K/uL (1.80-7.70); NEUTROPHILS PERCENT AUTO 55.5 % (41.0-71.0); PLATELET COUNT,PLT 194 K/uL (150-400); RED BLOOD CELL COUNT 2.79 M/uL (4.52-5.90); WHITE BLOOD CELL COUNT,WBC 6.64 K/uL (3.9-11.3)
[2023-09-22 11:10] LABS: A/G RATIO 0.3 (0.9-1.6); ALBUMIN 0.9 g/dL (3.4-5.0); BILIRUBIN TOTAL 0.1 mg/dL (0.2-1.0); CALCIUM 8.2 mg/dL (8.5-10.1); CARBON DIOXIDE,CO2 20.9 mmol/L (21.0-32.0); CREATININE 3.6 mg/dL (0.8-1.3); EST CRCL DRUG DOSING (CG) 29.73 mL/min; PHOSPHORUS 4.8 mg/dL (2.6-4.7); POTASSIUM,K 3.3 mmol/L (3.5-5.1); PROTEIN TOTAL,TP 4.2 g/dL (6.4-8.2)
[2023-09-22] MEDS: 50% Dextrose in Water 50 ML Syringe IVPUSH PRN (12:35)
[2023-09-22] MEDS: droPERidol 5 MG/2 ML SDV IVPUSH ONE (12:59)
[2023-09-22] MEDS: droPERidol 5 MG/2 ML SDV ONE (13:38)
[2023-09-22] MEDS ORDERED: Potassium Chloride 100 ML IV SCH (15:00)
[2023-09-22] MEDS: Potassium Chloride 100 ML IV SCH (16:30)
[2023-09-22] MEDS: Sodium Chloride 0.9% 250 ML IV ONE (16:31)
[2023-09-23 05:51] LABS: BASOPHILS ABSOLUTE AUTO 0.03 K/uL (0.00-0.20); BASOPHILS PERCENT AUTO 0.4 % (0.0-1.0); EOSINOPHILS ABSOLUTE AUTO 0.32 K/uL (0.00-0.45); EOSINOPHILS PERCENT AUTO 4.5 % (0.0-6.0); HEMATOCRIT 22.4 % (42.0-52.0); HEMOGLOBIN 7.9 g/dL (14.0-18.0); IMMATURE GRAN ABSOLUTE AUTO 0.02 K/uL (0.00-0.05); IMMATURE GRAN PERCENT AUTO 0.3 % (0.0-0.4); LYMPHOCYTES ABSOLUTE AUTO 2.18 K/uL (1.00-4.80); LYMPHOCYTES PERCENT AUTO 30.6 % (24.0-44.0); MEAN CORPUSCULAR HEMOGLOBIN 29.6 pg (28.0-32.0); MEAN CORPUSCULAR HGB CONC 35.3 g/dL (32.0-36.0); MEAN CORPUSCULAR VOLUME 83.9 fL (83.0-99.0); MEAN PLATELET VOLUME 9.3 fL (9.4-12.4); MONOCYTES ABSOLUTE AUTO 0.25 K/uL (0.00-0.80); MONOCYTES PERCENT AUTO 3.5 % (0.0-8.0); NEUTROPHILS ABSOLUTE AUTO 4.32 K/uL (1.80-7.70); NEUTROPHILS PERCENT AUTO 60.7 % (41.0-71.0); PLATELET COUNT,PLT 191 K/uL (150-400); RED BLOOD CELL COUNT 2.67 M/uL (4.52-5.90); WHITE BLOOD CELL COUNT,WBC 7.12 K/uL (3.9-11.3)
[2023-09-23 06:27] LABS: A/G RATIO 0.3 (0.9-1.6); ALBUMIN 0.9 g/dL (3.4-5.0); BILIRUBIN TOTAL 0.1 mg/dL (0.2-1.0); CALCIUM 7.7 mg/dL (8.5-10.1); CARBON DIOXIDE,CO2 17.6 mmol/L (21.0-32.0); CREATININE 3.5 mg/dL (0.8-1.3); EST CRCL DRUG DOSING (CG) 30.58 mL/min; MAGNESIUM 1.9 mg/dL (1.8-2.4); PHOSPHORUS 4.3 mg/dL (2.6-4.7); POTASSIUM,K 3.1 mmol/L (3.5-5.1); PROTEIN TOTAL,TP 3.9 g/dL (6.4-8.2)
[2023-09-23] MEDS: Sodium Chloride 0.9% 500 ML IV ONE (09:31)
[2023-09-23] MEDS: Potassium Chloride 10 MEQ in Premix Bag 1 BAG IV SCH (09:31)
[2023-09-23] MEDS: Metoclopramide 10 MG/2 ML SDV IVPUSH SCH (10:56)
[2023-09-23] MEDS: Potassium Chloride 10 MEQ in Premix Bag 1 BAG IV ONE (16:45)
[2023-09-23] MEDS: droPERidol 5 MG/2 ML SDV IVPUSH PRN (16:46)
[2023-09-23] MEDS ORDERED: Glucagon,Human Recombinant 1 MG Vial IM PRN ×2 (18:05→18:29)
[2023-09-23] MEDS ORDERED: 50% Dextrose in Water 50 ML Syringe IVPUSH PRN ×2 (18:05→18:29)
[2023-09-23] MEDS: Insulin Aspart 100 Units/ML 3 ML Pen SUBCUT STA (18:35)
[2023-09-23] MEDS: Insulin Glargine,Hum.Rec.Anlog 100 UNIT/ML 3 ML Pen SUBCUT SCH (20:15)
[2023-09-24 05:42] LABS: BASOPHILS ABSOLUTE AUTO 0.04 K/uL (0.00-0.20); BASOPHILS PERCENT AUTO 0.6 % (0.0-1.0); EOSINOPHILS ABSOLUTE AUTO 0.37 K/uL (0.00-0.45); EOSINOPHILS PERCENT AUTO 5.7 % (0.0-6.0); HEMATOCRIT 25.2 % (42.0-52.0); HEMOGLOBIN 8.5 g/dL (14.0-18.0); IMMATURE GRAN ABSOLUTE AUTO 0.04 K/uL (0.00-0.05); IMMATURE GRAN PERCENT AUTO 0.6 % (0.0-0.4); LYMPHOCYTES ABSOLUTE AUTO 2.38 K/uL (1.00-4.80); LYMPHOCYTES PERCENT AUTO 36.5 % (24.0-44.0); MEAN CORPUSCULAR HEMOGLOBIN 29.2 pg (28.0-32.0); MEAN CORPUSCULAR HGB CONC 33.7 g/dL (32.0-36.0); MEAN CORPUSCULAR VOLUME 86.6 fL (83.0-99.0); MEAN PLATELET VOLUME 9.6 fL (9.4-12.4); MONOCYTES ABSOLUTE AUTO 0.28 K/uL (0.00-0.80); MONOCYTES PERCENT AUTO 4.3 % (0.0-8.0); NEUTROPHILS ABSOLUTE AUTO 3.41 K/uL (1.80-7.70); NEUTROPHILS PERCENT AUTO 52.3 % (41.0-71.0); PLATELET COUNT,PLT 208 K/uL (150-400); RED BLOOD CELL COUNT 2.91 M/uL (4.52-5.90); WHITE BLOOD CELL COUNT,WBC 6.52 K/uL (3.9-11.3)
[2023-09-24 06:08] LABS: A/G RATIO 0.2 (0.9-1.6); ALBUMIN 0.8 g/dL (3.4-5.0); BILIRUBIN TOTAL 0.1 mg/dL (0.2-1.0); CALCIUM 7.8 mg/dL (8.5-10.1); CARBON DIOXIDE,CO2 19.3 mmol/L (21.0-32.0); CREATININE 3.5 mg/dL (0.8-1.3); EST CRCL DRUG DOSING (CG) 27.84 mL/min; PHOSPHORUS 3.8 mg/dL (2.6-4.7); POTASSIUM,K 4.2 mmol/L (3.5-5.1); PROTEIN TOTAL,TP 4.1 g/dL (6.4-8.2)
[2023-09-24] MEDS: Insulin Aspart 100 Units/ML 3 ML Pen SUBCUT SCH (06:30)
[2023-09-24 13:35] VITALS: PULSE 79
[2023-09-24 13:38] VITALS: BP 111/68
== END 2023-09-24 12:30 | disposition home or self-care (01) | DRG 637 ==
LOC: MW.ED 01:16 → MW.ICU 04:27 → MW.MS 09-21 12:43
PROVIDERS: ADMIT Family Medicine; ATTEND Family Medicine
PROC: 0T9B70Z Drainage of Bladder with Drainage Device, Via Natural or Artificial Opening (ICD-10-PCS; principal; 2023-09-19)
DX: E10.10 Type 1 diabetes mellitus with ketoacidosis without coma (principal); R65.10 Systemic inflammatory response syndrome (SIRS) of non-infectious origin without acute organ dysfunction; J18.9 Pneumonia, unspecified organism; R60.9 Edema, unspecified; I10 Essential (primary) hypertension; N17.9 Acute kidney failure, unspecified; N18.4 Chronic kidney disease, stage 4 (severe); N39.0 Urinary tract infection, site not specified; E87.1 Hypo-osmolality and hyponatremia; Z75.8 Other problems related to medical facilities and other health care; D68.9 Coagulation defect, unspecified; E10.22 Type 1 diabetes mellitus with diabetic chronic kidney disease; H54.7 Unspecified visual loss; F41.9 Anxiety disorder, unspecified; F32.A Depression, unspecified; R33.9 Retention of urine, unspecified; N31.9 Neuromuscular dysfunction of bladder, unspecified; I12.9 Hypertensive chronic kidney disease with stage 1 through stage 4 chronic kidney disease, or unspecified chronic kidney disease; E10.43 Type 1 diabetes mellitus with diabetic autonomic (poly)neuropathy; K31.84 Gastroparesis; E87.8 Other disorders of electrolyte and fluid balance, not elsewhere classified; D63.1 Anemia in chronic kidney disease; Z88.0 Allergy status to penicillin; Z91.013 Allergy to seafood; Z79.4 Long term (current) use of insulin; Z79.899 Other long term (current) drug therapy; Z87.19 Personal history of other diseases of the digestive system; Z98.890 Other specified postprocedural states
CPT/HCPCS: 36415; 71045; 71250; 74176; 80053; 81001; 82550; 82803; 82947 ×2; 83605; 83690; 83880; 84484; 85025; 87040 ×2; 93005; J1815; J2543; J3490 ×4; J7030 ×2; 51702; 80048; 82668; 83540; 83735; 84100; 85027; 85730; 93010; 99223; 99232; 99239; 99285; A9270-GY; J0456; J1200; J1644; J1790; J1921; J1940; J2405; J2470; J2765; J3480; J7040; J7050; J7120; J7799

== ENCOUNTER 2023-09-26 08:43 | Emergency (ER) | payer MEDICAID ==
[2023-09-26] MEDS ORDERED: Sodium Chloride 0.9% 20 ML SDV IV PRN (09:01)
[2023-09-26] MEDS: Sodium Chloride 0.9% 2,000 ML IV ONE (09:04)
[2023-09-26] MEDS: droPERidol 5 MG/2 ML SDV IVPUSH ONE (09:06)
[2023-09-26] MEDS: Sodium Chloride 0.9% 2.5 ML Syringe FLUSH PRN (09:07)
[2023-09-26 09:08] LABS: BASE EXCESS VENOUS -6.6 (-2.0-3.0); BICARBONATE,VENOUS 20 mEQ/mL (22-28); PCO2 VENOUS 42 mmHG (41-51); PH,VENOUS 7.28 (7.31-7.41); PO2 VENOUS < 30 mmHG (35-45)
[2023-09-26] MEDS: Sodium Chloride 0.9% 10 ML Syringe FLUSH PRN (09:08)
[2023-09-26 09:12] LABS: BASOPHILS ABSOLUTE AUTO 0.03 K/uL (0.00-0.20); BASOPHILS PERCENT AUTO 0.2 % (0.0-1.0); HEMATOCRIT 28.1 % (42.0-52.0); HEMOGLOBIN 9.6 g/dL (14.0-18.0); IMMATURE GRAN ABSOLUTE AUTO 0.08 K/uL (0.00-0.05); IMMATURE GRAN PERCENT AUTO 0.5 % (0.0-0.4); LYMPHOCYTES ABSOLUTE AUTO 1.17 K/uL (1.00-4.80); LYMPHOCYTES PERCENT AUTO 7.8 % (24.0-44.0); MEAN CORPUSCULAR HGB CONC 34.2 g/dL (32.0-36.0); MEAN CORPUSCULAR VOLUME 84.9 fL (83.0-99.0); MEAN PLATELET VOLUME 9.6 fL (9.4-12.4); MONOCYTES ABSOLUTE AUTO 0.38 K/uL (0.00-0.80); MONOCYTES PERCENT AUTO 2.5 % (0.0-8.0); NEUTROPHILS ABSOLUTE AUTO 13.28 K/uL (1.80-7.70); PLATELET COUNT,PLT 448 K/uL (150-400); RED BLOOD CELL COUNT 3.31 M/uL (4.52-5.90); WHITE BLOOD CELL COUNT,WBC 14.94 K/uL (3.9-11.3)
[2023-09-26 09:33] LABS: A/G RATIO 0.3 (0.9-1.6); ALANINE AMINOTRANSFERASE,ALT 14 IU/L (14-63); ALBUMIN 1.3 g/dL (3.4-5.0); ALKALINE PHOSPHATASE 71 U/L (46-116); ASPARTATE AMNIOTRANSFERASE,AST 11 IU/L (15-37); BILIRUBIN TOTAL 0.2 mg/dL (0.2-1.0); BLOOD UREA NITROGEN,BUN 42 mg/dL (7.0-18.0); CALCIUM 8.6 mg/dL (8.5-10.1); CHLORIDE,CL 108 mmol/L (98-107); CREATININE 3.8 mg/dL (0.8-1.3); EST CRCL DRUG DOSING (CG) 26.82 mL/min; GLUCOSE RANDOM 491 mg/dL (74-106); LIPASE 23 U/L (16-77); MAGNESIUM 2.1 mg/dL (1.8-2.4); POTASSIUM,K 4.2 mmol/L (3.5-5.1); PROTEIN TOTAL,TP 5.3 g/dL (6.4-8.2); SODIUM,NA 140 mmol/L (136-148)
[2023-09-26 09:37] LABS: C-REACTIVE PROTEIN < 0.05 mg/dL (<0.3); ESTIMATED GFR 22 mL/min (>60)
[2023-09-26 09:55] LABS: HEMOGLOBIN A1C 8.5 %
[2023-09-26] MEDS ORDERED: Glucagon,Human Recombinant 1 MG Vial IM PRN ×2 (09:56→13:45)
[2023-09-26] MEDS ORDERED: 50% Dextrose in Water 50 ML Syringe IVPUSH PRN ×2 (09:56→13:45)
[2023-09-26] MEDS: Insulin Regular, Human 100 Units/ML 10 ML Vial IVPUSH ONE ×2 (10:18→13:56)
[2023-09-26 10:24] LABS: APPEARANCE,URINE SLT CLOUDY; BILIRUBIN,URINE NEGATIVE (NEGATIVE); COLOR,URINE YELLOW; GLUCOSE,URINE >=1000 mg/dL (NEGATIVE); KETONES,URINE TRACE mg/dL (NEGATIVE); LEUKOCYTE ESTERASE,URINE NEGATIVE (NEGATIVE); NITRITE,URINE NEGATIVE (NEGATIVE); OCCULT BLOOD,URINE SMALL (NEGATIVE); PROTEIN,URINE >=300 mg/dL (NEGATIVE); UROBILINOGEN,URINE 0.2 EU/dL (<2.0)
[2023-09-26 10:55] LABS: BACTERIA,URINE FEW (NEGATIVE); EPITHELIAL CELLS,URINE RARE (NONE-FEW); RBC,URINE 0-1 (0-2/HPF)
[2023-09-26] MEDS: Labetalol 100 MG/20 ML MDV IVPUSH ONE (11:05)
[2023-09-26] MEDS: diphenhydrAMINE 25 MG Cap PO ONE (12:22)
[2023-09-26] MEDS: diphenhydrAMINE 50 MG/ML SDV IVPUSH ONE (15:19)
[2023-09-26] MEDS: Piperacillin/Tazobactam 3.375 GM in Sodium Chloride 0.9% 100 ML IV ONE (17:20)
[2023-09-26 17:22] LABS: A/G RATIO 0.4 (0.9-1.6); ALBUMIN 1.3 g/dL (3.4-5.0); BILIRUBIN TOTAL 0.1 mg/dL (0.2-1.0); CALCIUM 8.2 mg/dL (8.5-10.1); CARBON DIOXIDE,CO2 16.4 mmol/L (21.0-32.0); CREATININE 3.5 mg/dL (0.8-1.3); EST CRCL DRUG DOSING (CG) 29.12 mL/min; POTASSIUM,K 3.8 mmol/L (3.5-5.1)
[2023-09-27 00:04] VITALS: BP 156/99; PULSE 114
== END 2023-09-26 18:45 ==
LOC: MW.ED 08:43
DX: R11.2 Nausea with vomiting, unspecified (principal); E10.65 Type 1 diabetes mellitus with hyperglycemia; E86.0 Dehydration; D72.0 Genetic anomalies of leukocytes; K81.9 Cholecystitis, unspecified; N04.9 Nephrotic syndrome with unspecified morphologic changes; R18.8 Other ascites; R10.811 Right upper quadrant abdominal tenderness; I10 Essential (primary) hypertension; Z96.0 Presence of urogenital implants; Z79.4 Long term (current) use of insulin; Z79.899 Other long term (current) drug therapy; Z91.013 Allergy to seafood; Z88.1 Allergy status to other antibiotic agents; Z75.8 Other problems related to medical facilities and other health care
CPT/HCPCS: 36415; 74176; 76705; 80053; 81001; 82009; 82803; 82947; 83036; 83605; 83690; 83735; 83880; 85025; 85652; 86140; 87040; 93005; 96361; 96365; 96375; 99285; A9270; J1200; J1790; J2543; J3490; J7030; 93010; J1815-GY; J1921

== ENCOUNTER 2023-10-11 14:55 | Emergency (ER) | payer MEDICAID ==
[2023-10-11] MEDS ORDERED: Sodium Chloride 0.9% 10 ML Syringe FLUSH PRN (15:03)
[2023-10-11] MEDS ORDERED: Sodium Chloride 0.9% 2.5 ML Syringe FLUSH PRN (15:03)
[2023-10-11 15:15] LABS: BASE EXCESS VENOUS 0.9 (-2.0-3.0); PH,VENOUS 7.4 (7.31-7.41)
[2023-10-11 15:16] LABS: BASOPHILS ABSOLUTE AUTO 0.04 K/uL (0.00-0.20); BASOPHILS PERCENT AUTO 0.4 % (0.0-1.0); EOSINOPHILS ABSOLUTE AUTO 0.24 K/uL (0.00-0.45); EOSINOPHILS PERCENT AUTO 2.7 % (0.0-6.0); HEMATOCRIT 26.2 % (42.0-52.0); HEMOGLOBIN 8.8 g/dL (14.0-18.0); IMMATURE GRAN ABSOLUTE AUTO 0.08 K/uL (0.00-0.05); IMMATURE GRAN PERCENT AUTO 0.9 % (0.0-0.4); LYMPHOCYTES ABSOLUTE AUTO 2.61 K/uL (1.00-4.80); LYMPHOCYTES PERCENT AUTO 29.3 % (24.0-44.0); MEAN CORPUSCULAR HEMOGLOBIN 30.9 pg (28.0-32.0); MEAN CORPUSCULAR HGB CONC 33.6 g/dL (32.0-36.0); MEAN CORPUSCULAR VOLUME 91.9 fL (83.0-99.0); MEAN PLATELET VOLUME 9.3 fL (9.4-12.4); MONOCYTES ABSOLUTE AUTO 0.53 K/uL (0.00-0.80); MONOCYTES PERCENT AUTO 5.9 % (0.0-8.0); NEUTROPHILS ABSOLUTE AUTO 5.41 K/uL (1.80-7.70); NEUTROPHILS PERCENT AUTO 60.8 % (41.0-71.0); NRBC ABSOLUTE 0.05 K/uL (0.00-0.02); NRBC PERCENT 0.6 /100WBC (0.0-0.2); PLATELET COUNT,PLT 204 K/uL (150-400); RED BLOOD CELL COUNT 2.85 M/uL (4.52-5.90); WHITE BLOOD CELL COUNT,WBC 8.91 K/uL (3.9-11.3)
[2023-10-11 15:28] LABS: APPEARANCE,URINE CLEAR; BILIRUBIN,URINE NEGATIVE (NEGATIVE); COLOR,URINE YELLOW; GLUCOSE,URINE >=1000 mg/dL (NEGATIVE); KETONES,URINE NEGATIVE (NEGATIVE); LEUKOCYTE ESTERASE,URINE NEGATIVE (NEGATIVE); NITRITE,URINE NEGATIVE (NEGATIVE); OCCULT BLOOD,URINE TRACE-INTACT (NEGATIVE); PROTEIN,URINE 100 mg/dL (NEGATIVE); UROBILINOGEN,URINE 0.2 EU/dL (<2.0)
[2023-10-11 15:35] LABS: BACTERIA,URINE FEW (NEGATIVE); EPITHELIAL CELLS,URINE NOT SEEN (NONE-FEW); HYALINE CASTS,URINE 0-1 (0-2/LPF); MUCUS,URINE LIGHT (NONE-MOD)
[2023-10-11 15:39] LABS: A/G RATIO 0.3 (0.9-1.6); ALBUMIN 1.1 g/dL (3.4-5.0); BILIRUBIN TOTAL 0.1 mg/dL (0.2-1.0); CALCIUM 8.3 mg/dL (8.5-10.1); CARBON DIOXIDE,CO2 27.1 mmol/L (21.0-32.0); CREATININE 3.3 mg/dL (0.8-1.3); EST CRCL DRUG DOSING (CG) 28.4 mL/min; MAGNESIUM 2.4 mg/dL (1.8-2.4); POTASSIUM,K 3.7 mmol/L (3.5-5.1); PROTEIN TOTAL,TP 4.3 g/dL (6.4-8.2)
[2023-10-11] MEDS: Sodium Chloride 0.9% 500 ML IV ONE (15:42)
[2023-10-11] MEDS: Sodium Chloride 0.9% 1,000 ML IV ONE ×2 (15:45)
[2023-10-11] MEDS ORDERED: 50% Dextrose in Water 50 ML Syringe IVPUSH PRN ×2 (15:49→16:12)
[2023-10-11] MEDS ORDERED: Glucagon,Human Recombinant 1 MG Vial IM PRN ×2 (15:49→16:12)
[2023-10-11] MEDS: diphenhydrAMINE 50 MG/ML SDV IVPUSH ONE (16:11)
[2023-10-11] MEDS: Ondansetron 4 MG/2 ML SDV IVPUSH ONE (16:11)
[2023-10-11] MEDS: Insulin Regular, Human 100 Units/ML 10 ML Vial IVPUSH ONE (16:14)
[2023-10-11] MEDS: Insulin Regular, Human 100 Units/ML 10 ML Vial SUBCUT ONE (16:29)
[2023-10-11 16:58] VITALS: BP 166/112; PULSE 83
== END 2023-10-11 16:58 | disposition home or self-care (01) ==
LOC: MW.ED 14:55
DX: E10.65 Type 1 diabetes mellitus with hyperglycemia (principal); R21 Rash and other nonspecific skin eruption; R11.0 Nausea; I10 Essential (primary) hypertension; Z79.899 Other long term (current) drug therapy; Z79.4 Long term (current) use of insulin; Z88.0 Allergy status to penicillin; Z91.013 Allergy to seafood; Z75.8 Other problems related to medical facilities and other health care
CPT/HCPCS: 36415; 80053; 81001; 82803; 82947; 83735; 85025; 96361; 96374; 96375; 99285; J1200; J1815; J2405; J7040

== ENCOUNTER 2023-10-15 23:50 | Emergency (ER) | payer MEDICAID ==
[2023-10-16] MEDS: Sodium Chloride 0.9% 1,000 ML IV ONE ×2 (00:12→02:17)
[2023-10-16] MEDS: Sodium Chloride 0.9% 10 ML Syringe FLUSH PRN (00:12)
[2023-10-16] MEDS: Sodium Chloride 0.9% 2.5 ML Syringe FLUSH PRN (00:12)
[2023-10-16] MEDS: diphenhydrAMINE 50 MG/ML SDV IVPUSH ONE ×2 (00:14→03:34)
[2023-10-16] MEDS: Ondansetron 4 MG/2 ML SDV IVPUSH ONE (00:14)
[2023-10-16 00:55] LABS: A/G RATIO 0.4 (0.9-1.6); ALBUMIN 1.3 g/dL (3.4-5.0); BILIRUBIN TOTAL 0.2 mg/dL (0.2-1.0); CALCIUM 8.6 mg/dL (8.5-10.1); CREATININE 3.3 mg/dL (0.8-1.3); EST CRCL DRUG DOSING (CG) 27.83 mL/min; PROTEIN TOTAL,TP 4.9 g/dL (6.4-8.2)
[2023-10-16] MEDS ORDERED: Glucagon,Human Recombinant 1 MG Vial IM PRN ×2 (00:59→03:30)
[2023-10-16] MEDS ORDERED: 50% Dextrose in Water 50 ML Syringe IVPUSH PRN ×2 (00:59→03:30)
[2023-10-16] MEDS: Insulin Regular, Human 100 Units/ML 10 ML Vial IVPUSH ONE ×2 (01:10→03:39)
[2023-10-16 01:30] LABS: BASE EXCESS VENOUS 9.5 (-2.0-3.0); PH,VENOUS 7.46 (7.31-7.41)
[2023-10-16] MEDS: Metoclopramide 10 MG/2 ML SDV IVPUSH ONE (03:34)
[2023-10-16 05:31] VITALS: BP 174/123; PULSE 105
== END 2023-10-16 05:30 | disposition home or self-care (01) ==
LOC: MW.ED 23:50
DX: E10.65 Type 1 diabetes mellitus with hyperglycemia (principal); I10 Essential (primary) hypertension; Z79.4 Long term (current) use of insulin; Z79.899 Other long term (current) drug therapy; Z88.0 Allergy status to penicillin; Z91.013 Allergy to seafood; Z75.8 Other problems related to medical facilities and other health care
CPT/HCPCS: 36415; 80053; 82009; 82803; 82947; 83690; 83735; 96361; 96374; 96375; 96376; 99284; J1200; J2405; J2765; J3490; J7030; J1815-GY

== ENCOUNTER 2023-11-14 22:08 | Emergency (ER) | payer MEDICAID ==
[2023-11-14] MEDS: droPERidol 5 MG/2 ML SDV IVPUSH ONE (23:45)
[2023-11-15] MEDS: diphenhydrAMINE 25 MG Cap PO ONE (00:44)
[2023-11-15 01:54] VITALS: BP 169/117; PULSE 104
== END 2023-11-15 01:53 | disposition home or self-care (01) ==
LOC: MW.ED 22:08
DX: R10.84 Generalized abdominal pain (principal); R11.2 Nausea with vomiting, unspecified; I10 Essential (primary) hypertension; E10.9 Type 1 diabetes mellitus without complications; Z79.4 Long term (current) use of insulin; Z79.899 Other long term (current) drug therapy; Z88.0 Allergy status to penicillin; Z91.013 Allergy to seafood
CPT/HCPCS: 96374; 99283; A9270; J1790

== ENCOUNTER 2023-11-16 20:39 | Emergency (ER) | payer MEDICAID ==
[2023-11-16] MEDS: diphenhydrAMINE 25 MG Cap PO ONE (21:32)
[2023-11-16 23:40] VITALS: BP 216/126; PULSE 100
== END 2023-11-16 22:07 | disposition home or self-care (01) ==
LOC: MW.ED 20:39
DX: R11.2 Nausea with vomiting, unspecified (principal); I10 Essential (primary) hypertension; E10.9 Type 1 diabetes mellitus without complications; Z79.4 Long term (current) use of insulin; Z79.899 Other long term (current) drug therapy; Z88.0 Allergy status to penicillin; Z91.013 Allergy to seafood
CPT/HCPCS: 99283; A9270

== ENCOUNTER 2023-11-19 18:34 | Inpatient (IN) | payer MEDICAID ==
[2023-11-19] MEDS: droPERidol 5 MG/2 ML SDV IVPUSH ONE (19:36)
[2023-11-19] MEDS: Sodium Chloride 0.9% 1,000 ML IV ONE (19:36)
[2023-11-19 19:54] LABS: BASOPHILS ABSOLUTE AUTO 0.05 K/uL (0.00-0.20); BASOPHILS PERCENT AUTO 0.4 % (0.0-1.0); EOSINOPHILS ABSOLUTE AUTO 0.01 K/uL (0.00-0.45); EOSINOPHILS PERCENT AUTO 0.1 % (0.0-6.0); HEMATOCRIT 32.6 % (42.0-52.0); IMMATURE GRAN ABSOLUTE AUTO 0.07 K/uL (0.00-0.05); IMMATURE GRAN PERCENT AUTO 0.5 % (0.0-0.4); LYMPHOCYTES PERCENT AUTO 5.8 % (24.0-44.0); MEAN CORPUSCULAR HEMOGLOBIN 28.6 pg (28.0-32.0); MEAN CORPUSCULAR HGB CONC 33.7 g/dL (32.0-36.0); MEAN CORPUSCULAR VOLUME 84.7 fL (83.0-99.0); MEAN PLATELET VOLUME 8.7 fL (9.4-12.4); MONOCYTES ABSOLUTE AUTO 0.19 K/uL (0.00-0.80); MONOCYTES PERCENT AUTO 1.4 % (0.0-8.0); NEUTROPHILS ABSOLUTE AUTO 12.76 K/uL (1.80-7.70); NEUTROPHILS PERCENT AUTO 91.8 % (41.0-71.0); PLATELET COUNT,PLT 292 K/uL (150-400); RED BLOOD CELL COUNT 3.85 M/uL (4.52-5.90); WHITE BLOOD CELL COUNT,WBC 13.88 K/uL (3.9-11.3)
[2023-11-19 20:09] LABS: BLOOD UREA NITROGEN,BUN 35 mg/dL (7.0-18.0); CALCIUM 8.5 mg/dL (8.5-10.1); CHLORIDE,CL 112 mmol/L (98-107); CREATININE 4.4 mg/dL (0.8-1.3); GLUCOSE RANDOM 86 mg/dL (74-106); POTASSIUM,K 3.6 mmol/L (3.5-5.1); SODIUM,NA 146 mmol/L (136-148)
[2023-11-19 20:10] LABS: ESTIMATED GFR 18 mL/min (>60)
[2023-11-19] MEDS ORDERED: 50% Dextrose in Water 50 ML Syringe IVPUSH PRN (22:48)
[2023-11-19] MEDS ORDERED: Glucagon,Human Recombinant 1 MG Vial IM PRN (22:48)
[2023-11-19] MEDS: Ondansetron 4 MG/2 ML SDV IVPUSH PRN (23:03)
[2023-11-19] MEDS: Insulin Aspart 100 Units/ML 3 ML Pen SUBCUT SCH (23:08)
[2023-11-19] MEDS ORDERED: diphenhydrAMINE 25 MG Cap PO PRN (23:20)
[2023-11-20] MEDS: diphenhydrAMINE 50 MG/ML SDV IVPUSH PRN (02:03)
[2023-11-20] MEDS: Sodium Chloride 0.9% 1,000 ML IV SCH (02:03)
[2023-11-20] MEDS: Metoclopramide 10 MG/2 ML SDV IV PRN (02:03)
[2023-11-20 04:57] LABS: HEMATOCRIT 29.6 % (42.0-52.0); HEMOGLOBIN 10.2 g/dL (14.0-18.0); MEAN CORPUSCULAR HEMOGLOBIN 29.2 pg (28.0-32.0); MEAN CORPUSCULAR HGB CONC 34.5 g/dL (32.0-36.0); MEAN CORPUSCULAR VOLUME 84.8 fL (83.0-99.0); MEAN PLATELET VOLUME 8.9 fL (9.4-12.4); PLATELET COUNT,PLT 278 K/uL (150-400); RED BLOOD CELL COUNT 3.49 M/uL (4.52-5.90); WHITE BLOOD CELL COUNT,WBC 12.63 K/uL (3.9-11.3)
[2023-11-20 05:00] LABS: APPEARANCE,URINE CLEAR; BILIRUBIN,URINE NEGATIVE (NEGATIVE); COLOR,URINE YELLOW; GLUCOSE,URINE 250 mg/dL (NEGATIVE); KETONES,URINE TRACE mg/dL (NEGATIVE); LEUKOCYTE ESTERASE,URINE NEGATIVE (NEGATIVE); NITRITE,URINE NEGATIVE (NEGATIVE); OCCULT BLOOD,URINE TRACE-INTACT (NEGATIVE); PROTEIN,URINE 100 mg/dL (NEGATIVE); UROBILINOGEN,URINE 0.2 EU/dL (<2.0)
[2023-11-20 05:09] LABS: BACTERIA,URINE FEW (NEGATIVE); EPITHELIAL CELLS,URINE RARE (NONE-FEW)
[2023-11-20 05:10] LABS: AMPHETAMINES SCREEN, URINE NEGATIVE (CUTOFF=500); BARBITURATE SCREEN,URINE NEGATIVE (CUTOFF=200); BENZODIAZEPINES SCREEN,URINE NEGATIVE (CUTOFF=150); BUPRENORPHINE SCREEN,URINE PRESUMPTIVE POSITIVE (CUTOFF=10); METHADONE SCREEN, URINE NEGATIVE (CUTOFF=200); METHAMPHETAMINES SCREEN, URINE NEGATIVE (CUTOFF=500); OXYCODONE SCREEN,URINE NEGATIVE (CUT0FF=100); PCP SCREEN,URINE NEGATIVE (CUTOFF=25); THC SCREEN,URINE 20 NG/ML NEGATIVE (CUTOFF=50)
[2023-11-20 05:17] LABS: A/G RATIO 0.3 (0.9-1.6); ALBUMIN 1.1 g/dL (3.4-5.0); BILIRUBIN TOTAL 0.2 mg/dL (0.2-1.0); CALCIUM 8.2 mg/dL (8.5-10.1); CARBON DIOXIDE,CO2 20.9 mmol/L (21.0-32.0); CREATININE 4.3 mg/dL (0.8-1.3); EST CRCL DRUG DOSING (CG) 23.38 mL/min; POTASSIUM,K 3.8 mmol/L (3.5-5.1); PROTEIN TOTAL,TP 4.8 g/dL (6.4-8.2)
[2023-11-20] MEDS: Enalaprilat 1.25 MG/ML SDV IVPUSH ONE (07:59)
[2023-11-20] MEDS: Pantoprazole 40 MG in Sodium Chloride 0.9% 10 ML IVPUSH ONE (09:37)
[2023-11-20] MEDS: Insulin Glargine,Hum.Rec.Anlog 100 UNIT/ML 3 ML Pen SUBCUT SCH (09:38)
[2023-11-20] MEDS: Labetalol 100 MG/20 ML MDV IVPUSH ONE ×3 (09:40→11:40)
[2023-11-20] MEDS: Lactated Ringers 1,000 ML IV SCH (10:45)
[2023-11-20] MEDS: Gadobenate Dimeglumine 529 MG/ML 20 ML SDV IVPUSH ONE (14:50)
[2023-11-20] MEDS ORDERED: Labetalol 100 MG/20 ML MDV IVPUSH PRN (15:00)
[2023-11-20] MEDS: cloNIDine 0.1 MG/Day Transdermal Patch TRDERM SCH (18:20)
[2023-11-20] MEDS: Lidocaine 1% 20 ML MDV ONE (20:45)
[2023-11-20] MEDS: niCARdipine/Normal Saline 20 MG/200 ML BAG IV SCH (21:36)
[2023-11-20] MEDS: hydrALAZINE 20 MG/ML SDV IVPUSH PRN (23:09)
[2023-11-21 07:27] LABS: BASOPHILS ABSOLUTE AUTO 0.03 K/uL (0.00-0.20); BASOPHILS PERCENT AUTO 0.3 % (0.0-1.0); HEMOGLOBIN 9.1 g/dL (14.0-18.0); IMMATURE GRAN ABSOLUTE AUTO 0.05 K/uL (0.00-0.05); IMMATURE GRAN PERCENT AUTO 0.4 % (0.0-0.4); LYMPHOCYTES ABSOLUTE AUTO 1.88 K/uL (1.00-4.80); LYMPHOCYTES PERCENT AUTO 16.5 % (24.0-44.0); MEAN CORPUSCULAR HEMOGLOBIN 29.3 pg (28.0-32.0); MEAN CORPUSCULAR HGB CONC 33.7 g/dL (32.0-36.0); MEAN CORPUSCULAR VOLUME 86.8 fL (83.0-99.0); MEAN PLATELET VOLUME 8.6 fL (9.4-12.4); MONOCYTES ABSOLUTE AUTO 0.42 K/uL (0.00-0.80); MONOCYTES PERCENT AUTO 3.7 % (0.0-8.0); NEUTROPHILS ABSOLUTE AUTO 9.04 K/uL (1.80-7.70); NEUTROPHILS PERCENT AUTO 79.1 % (41.0-71.0); PLATELET COUNT,PLT 276 K/uL (150-400); RED BLOOD CELL COUNT 3.11 M/uL (4.52-5.90); WHITE BLOOD CELL COUNT,WBC 11.42 K/uL (3.9-11.3)
[2023-11-21 07:50] LABS: A/G RATIO 0.3 (0.9-1.6); BILIRUBIN TOTAL 0.2 mg/dL (0.2-1.0); CALCIUM 8.1 mg/dL (8.5-10.1); CREATININE 4.7 mg/dL (0.8-1.3); EST CRCL DRUG DOSING (CG) 21.39 mL/min; POTASSIUM,K 3.7 mmol/L (3.5-5.1); PROTEIN TOTAL,TP 4.4 g/dL (6.4-8.2)
[2023-11-21 07:57] LABS: CARBON DIOXIDE,CO2 18.4 mmol/L (21.0-32.0)
[2023-11-21] MEDS: Pantoprazole 40 MG in Sodium Chloride 0.9% 10 ML IVPUSH SCH (09:39)
[2023-11-21 09:48] LABS: CALCIUM 8.1 mg/dL (8.5-10.1); CREATININE 4.7 mg/dL (0.8-1.3); EST CRCL DRUG DOSING (CG) 21.39 mL/min; POTASSIUM,K 3.7 mmol/L (3.5-5.1)
[2023-11-21 09:59] LABS: CARBON DIOXIDE,CO2 18.5 mmol/L (21.0-32.0)
[2023-11-21 10:04] LABS: CREATININE,URINE RAND 79.8 mg/dL
[2023-11-21] MEDS: Buprenorphine/Naloxone 8-2 MG Tab.SL SL SCH (10:17)
[2023-11-21 10:26] LABS: PROTEIN CREATININE RATIO,URINE 5.1; PROTEIN,URINE RANDOM 408.6 mg/dL (<11.9)
[2023-11-21] MEDS: Insulin Aspart 100 Units/ML 3 ML Pen SUBCUT SCH (20:58)
[2023-11-21 22:40] LABS: CALCIUM 8.1 mg/dL (8.5-10.1); CARBON DIOXIDE,CO2 15.8 mmol/L (21.0-32.0); CREATININE 4.9 mg/dL (0.8-1.3); EST CRCL DRUG DOSING (CG) 20.52 mL/min; POTASSIUM,K 3.9 mmol/L (3.5-5.1)
[2023-11-22 02:15] LABS: CALCIUM 7.9 mg/dL (8.5-10.1); CARBON DIOXIDE,CO2 20.2 mmol/L (21.0-32.0); CREATININE 4.9 mg/dL (0.8-1.3); EST CRCL DRUG DOSING (CG) 20.52 mL/min; POTASSIUM,K 3.8 mmol/L (3.5-5.1)
[2023-11-22 05:36] LABS: BASOPHILS ABSOLUTE AUTO 0.05 K/uL (0.00-0.20); BASOPHILS PERCENT AUTO 0.3 % (0.0-1.0); EOSINOPHILS ABSOLUTE AUTO 0.05 K/uL (0.00-0.45); EOSINOPHILS PERCENT AUTO 0.3 % (0.0-6.0); HEMATOCRIT 23.8 % (42.0-52.0); HEMOGLOBIN 8.1 g/dL (14.0-18.0); IMMATURE GRAN ABSOLUTE AUTO 0.08 K/uL (0.00-0.05); IMMATURE GRAN PERCENT AUTO 0.6 % (0.0-0.4); LYMPHOCYTES ABSOLUTE AUTO 2.75 K/uL (1.00-4.80); LYMPHOCYTES PERCENT AUTO 19.1 % (24.0-44.0); MEAN CORPUSCULAR VOLUME 85.3 fL (83.0-99.0); MEAN PLATELET VOLUME 8.8 fL (9.4-12.4); MONOCYTES PERCENT AUTO 6.3 % (0.0-8.0); NEUTROPHILS ABSOLUTE AUTO 10.55 K/uL (1.80-7.70); NEUTROPHILS PERCENT AUTO 73.4 % (41.0-71.0); PLATELET COUNT,PLT 256 K/uL (150-400); RED BLOOD CELL COUNT 2.79 M/uL (4.52-5.90); WHITE BLOOD CELL COUNT,WBC 14.38 K/uL (3.9-11.3)
[2023-11-22 06:04] LABS: A/G RATIO 0.3 (0.9-1.6); BILIRUBIN TOTAL 0.2 mg/dL (0.2-1.0); CALCIUM 7.9 mg/dL (8.5-10.1); CARBON DIOXIDE,CO2 17.9 mmol/L (21.0-32.0); CREATININE 4.8 mg/dL (0.8-1.3); EST CRCL DRUG DOSING (CG) 20.95 mL/min; POTASSIUM,K 3.6 mmol/L (3.5-5.1)
[2023-11-22] MEDS: Insulin Glargine,Hum.Rec.Anlog 100 UNIT/ML 3 ML Pen SUBCUT SCH (10:57)
[2023-11-22] MEDS: Losartan 50 MG Tab PO SCH (11:44)
[2023-11-22] MEDS: Loratadine 10 MG Tab PO ONE (11:50)
[2023-11-22 14:43] LABS: CALCIUM 7.8 mg/dL (8.5-10.1); CARBON DIOXIDE,CO2 21.1 mmol/L (21.0-32.0); CREATININE 4.8 mg/dL (0.8-1.3); EST CRCL DRUG DOSING (CG) 20.95 mL/min; POTASSIUM,K 3.7 mmol/L (3.5-5.1)
[2023-11-22] MEDS: levETIRAcetam 500 MG Tab PO SCH (18:29)
[2023-11-22] MEDS: diphenhydrAMINE 50 MG/ML SDV IVPUSH PRN (21:24)
[2023-11-23 06:55] LABS: BASOPHILS ABSOLUTE AUTO 0.03 K/uL (0.00-0.20); BASOPHILS PERCENT AUTO 0.4 % (0.0-1.0); EOSINOPHILS ABSOLUTE AUTO 0.15 K/uL (0.00-0.45); EOSINOPHILS PERCENT AUTO 1.9 % (0.0-6.0); HEMATOCRIT 24.6 % (42.0-52.0); HEMOGLOBIN 8.2 g/dL (14.0-18.0); IMMATURE GRAN ABSOLUTE AUTO 0.02 K/uL (0.00-0.05); IMMATURE GRAN PERCENT AUTO 0.3 % (0.0-0.4); LYMPHOCYTES ABSOLUTE AUTO 1.74 K/uL (1.00-4.80); LYMPHOCYTES PERCENT AUTO 22.2 % (24.0-44.0); MEAN CORPUSCULAR HEMOGLOBIN 28.7 pg (28.0-32.0); MEAN CORPUSCULAR HGB CONC 33.3 g/dL (32.0-36.0); MEAN PLATELET VOLUME 8.7 fL (9.4-12.4); MONOCYTES ABSOLUTE AUTO 0.39 K/uL (0.00-0.80); NEUTROPHILS PERCENT AUTO 70.2 % (41.0-71.0); PLATELET COUNT,PLT 235 K/uL (150-400); RED BLOOD CELL COUNT 2.86 M/uL (4.52-5.90); WHITE BLOOD CELL COUNT,WBC 7.83 K/uL (3.9-11.3)
[2023-11-23 07:16] LABS: A/G RATIO 0.3 (0.9-1.6); BILIRUBIN TOTAL 0.2 mg/dL (0.2-1.0); CALCIUM 7.5 mg/dL (8.5-10.1); CARBON DIOXIDE,CO2 20.6 mmol/L (21.0-32.0); CREATININE 4.9 mg/dL (0.8-1.3); EST CRCL DRUG DOSING (CG) 20.03 mL/min; PROTEIN TOTAL,TP 4.1 g/dL (6.4-8.2)
[2023-11-23] MEDS ORDERED: Metoclopramide 10 MG/2 ML SDV IV PRN (09:36)
[2023-11-23] MEDS: diphenhydrAMINE 25 MG Cap PO PRN (11:42)
[2023-11-23] MEDS: Torsemide 20 MG Tab PO SCH (13:01)
[2023-11-23] MEDS ORDERED: NICARDIPINE IV SCH (13:07)
[2023-11-23] MEDS ORDERED: SODIUM CHLORIDE IV SCH (13:07)
[2023-11-24 08:10] LABS: BASOPHILS ABSOLUTE AUTO 0.03 K/uL (0.00-0.20); BASOPHILS PERCENT AUTO 0.7 % (0.0-1.0); EOSINOPHILS ABSOLUTE AUTO 0.18 K/uL (0.00-0.45); EOSINOPHILS PERCENT AUTO 4.2 % (0.0-6.0); HEMATOCRIT 25.1 % (42.0-52.0); IMMATURE GRAN ABSOLUTE AUTO 0.01 K/uL (0.00-0.05); IMMATURE GRAN PERCENT AUTO 0.2 % (0.0-0.4); LYMPHOCYTES ABSOLUTE AUTO 1.22 K/uL (1.00-4.80); LYMPHOCYTES PERCENT AUTO 28.6 % (24.0-44.0); MEAN CORPUSCULAR HEMOGLOBIN 28.4 pg (28.0-32.0); MEAN CORPUSCULAR HGB CONC 31.9 g/dL (32.0-36.0); MEAN PLATELET VOLUME 8.9 fL (9.4-12.4); MONOCYTES ABSOLUTE AUTO 0.27 K/uL (0.00-0.80); MONOCYTES PERCENT AUTO 6.3 % (0.0-8.0); NEUTROPHILS ABSOLUTE AUTO 2.56 K/uL (1.80-7.70); PLATELET COUNT,PLT 211 K/uL (150-400); RED BLOOD CELL COUNT 2.82 M/uL (4.52-5.90); WHITE BLOOD CELL COUNT,WBC 4.27 K/uL (3.9-11.3)
[2023-11-24 08:57] LABS: A/G RATIO 0.3 (0.9-1.6); ALBUMIN 0.8 g/dL (3.4-5.0); BILIRUBIN TOTAL 0.2 mg/dL (0.2-1.0); CALCIUM 7.6 mg/dL (8.5-10.1); CARBON DIOXIDE,CO2 24.7 mmol/L (21.0-32.0); CREATININE 4.8 mg/dL (0.8-1.3); EST CRCL DRUG DOSING (CG) 19.96 mL/min; MAGNESIUM 2.3 mg/dL (1.8-2.4); POTASSIUM,K 3.8 mmol/L (3.5-5.1); PROTEIN TOTAL,TP 3.9 g/dL (6.4-8.2)
[2023-11-24] MEDS: Insulin Glargine,Hum.Rec.Anlog 100 UNIT/ML 3 ML Pen SUBCUT SCH (20:50)
[2023-11-25 05:30] LABS: BASOPHILS ABSOLUTE AUTO 0.02 K/uL (0.00-0.20); BASOPHILS PERCENT AUTO 0.6 % (0.0-1.0); EOSINOPHILS ABSOLUTE AUTO 0.03 K/uL (0.00-0.45); EOSINOPHILS PERCENT AUTO 0.9 % (0.0-6.0); HEMATOCRIT 24.4 % (42.0-52.0); IMMATURE GRAN ABSOLUTE AUTO 0.01 K/uL (0.00-0.05); IMMATURE GRAN PERCENT AUTO 0.3 % (0.0-0.4); LYMPHOCYTES ABSOLUTE AUTO 0.73 K/uL (1.00-4.80); MEAN CORPUSCULAR HGB CONC 32.8 g/dL (32.0-36.0); MEAN CORPUSCULAR VOLUME 88.4 fL (83.0-99.0); MEAN PLATELET VOLUME 8.7 fL (9.4-12.4); MONOCYTES ABSOLUTE AUTO 0.24 K/uL (0.00-0.80); MONOCYTES PERCENT AUTO 7.6 % (0.0-8.0); NEUTROPHILS ABSOLUTE AUTO 2.14 K/uL (1.80-7.70); NEUTROPHILS PERCENT AUTO 67.6 % (41.0-71.0); PLATELET COUNT,PLT 172 K/uL (150-400); RED BLOOD CELL COUNT 2.76 M/uL (4.52-5.90); WHITE BLOOD CELL COUNT,WBC 3.17 K/uL (3.9-11.3)
[2023-11-25 06:22] LABS: A/G RATIO 0.3 (0.9-1.6); ALBUMIN 0.8 g/dL (3.4-5.0); BILIRUBIN TOTAL 0.1 mg/dL (0.2-1.0); CALCIUM 7.6 mg/dL (8.5-10.1); CARBON DIOXIDE,CO2 24.1 mmol/L (21.0-32.0); CREATININE 4.6 mg/dL (0.8-1.3); EST CRCL DRUG DOSING (CG) 19.96 mL/min; POTASSIUM,K 3.4 mmol/L (3.5-5.1); PROTEIN TOTAL,TP 3.9 g/dL (6.4-8.2)
[2023-11-25] MEDS: Potassium Chloride 20 MEQ Tab.ER PO ONE (09:18)
[2023-11-25 13:25] VITALS: BP 156/93; PULSE 96
== END 2023-11-25 13:57 | disposition home or self-care (01) | DRG 73 ==
LOC: MW.ED 18:34 → MW.MS 22:16 → OBSVTOIN 11-20 09:26 → MW.ICU 11-20 18:33 → MW.MS 11-23 13:44
PROVIDERS: ADMIT Internal Medicine; ATTEND Internal Medicine
PROC: 02HV33Z Insertion of Infusion Device into Superior Vena Cava, Percutaneous Approach (ICD-10-PCS; principal; 2023-11-20)
PROC: 03HY32Z Insertion of Monitoring Device into Upper Artery, Percutaneous Approach (ICD-10-PCS; 2023-11-20)
PROC: 4A133B1 Monitoring of Arterial Pressure, Peripheral, Percutaneous Approach (ICD-10-PCS; 2023-11-20)
PROC: 4A133J1 Monitoring of Arterial Pulse, Peripheral, Percutaneous Approach (ICD-10-PCS; 2023-11-20)
PROC: 0T9B70Z Drainage of Bladder with Drainage Device, Via Natural or Artificial Opening (ICD-10-PCS; 2023-11-21)
DX: R11.10 Vomiting, unspecified (principal); E10.43 Type 1 diabetes mellitus with diabetic autonomic (poly)neuropathy; I10 Essential (primary) hypertension; E10.9 Type 1 diabetes mellitus without complications; I67.83 Posterior reversible encephalopathy syndrome; N17.9 Acute kidney failure, unspecified; N18.4 Chronic kidney disease, stage 4 (severe); R56.9 Unspecified convulsions; K31.84 Gastroparesis; F41.9 Anxiety disorder, unspecified; F32.A Depression, unspecified; E10.22 Type 1 diabetes mellitus with diabetic chronic kidney disease; I12.9 Hypertensive chronic kidney disease with stage 1 through stage 4 chronic kidney disease, or unspecified chronic kidney disease; E10.40 Type 1 diabetes mellitus with diabetic neuropathy, unspecified; R00.0 Tachycardia, unspecified; H54.3 Unqualified visual loss, both eyes; N31.9 Neuromuscular dysfunction of bladder, unspecified; E88.09 Other disorders of plasma-protein metabolism, not elsewhere classified; D63.1 Anemia in chronic kidney disease; F15.90 Other stimulant use, unspecified, uncomplicated; E10.649 Type 1 diabetes mellitus with hypoglycemia without coma; Z88.0 Allergy status to penicillin; Z91.013 Allergy to seafood; Z79.4 Long term (current) use of insulin; Z79.899 Other long term (current) drug therapy; Z98.890 Other specified postprocedural states
CPT/HCPCS: 36415 ×2; 51702; 70450; 74018; 80048; 80053; 80305; 81001; 82947 ×2; 83605; 85025; 85027; 96361; 96365; 96366; 96375 ×3; 99285; G0378 ×3; J1200; J1790; J1953; J2405; J2765; J7030 ×2; J7060; 36556; 36620; 70553; 70553-26; 77001; 77001-26; 81003; 82009; 82570; 83735; 84156; 84300; 96374; 99284; A9270-GY; A9577; J0360; J0574-GY; J1815-GY; J1921; J2470; J3490; J7120

== ENCOUNTER 2023-11-28 15:12 | Emergency (ER) | payer MEDICAID ==
[2023-11-28 16:33] LABS: BASE EXCESS VENOUS -4.2 (-2.0-3.0); BASOPHILS ABSOLUTE AUTO 0.04 K/uL (0.00-0.20); BASOPHILS PERCENT AUTO 0.8 % (0.0-1.0); BICARBONATE,VENOUS 23 mEQ/mL (22-28); EOSINOPHILS ABSOLUTE AUTO 0.09 K/uL (0.00-0.45); EOSINOPHILS PERCENT AUTO 1.9 % (0.0-6.0); HEMATOCRIT 25.1 % (42.0-52.0); HEMOGLOBIN 8.5 g/dL (14.0-18.0); IMMATURE GRAN ABSOLUTE AUTO 0.05 K/uL (0.00-0.05); IMMATURE GRAN PERCENT AUTO 1.1 % (0.0-0.4); LYMPHOCYTES ABSOLUTE AUTO 1.48 K/uL (1.00-4.80); LYMPHOCYTES PERCENT AUTO 31.3 % (24.0-44.0); MEAN CORPUSCULAR HEMOGLOBIN 29.3 pg (28.0-32.0); MEAN CORPUSCULAR HGB CONC 33.9 g/dL (32.0-36.0); MEAN CORPUSCULAR VOLUME 86.6 fL (83.0-99.0); MEAN PLATELET VOLUME 9.1 fL (9.4-12.4); MONOCYTES ABSOLUTE AUTO 0.22 K/uL (0.00-0.80); MONOCYTES PERCENT AUTO 4.7 % (0.0-8.0); NEUTROPHILS ABSOLUTE AUTO 2.85 K/uL (1.80-7.70); NEUTROPHILS PERCENT AUTO 60.2 % (41.0-71.0); PCO2 VENOUS 52 mmHG (41-51); PH,VENOUS 7.25 (7.31-7.41); PLATELET COUNT,PLT 237 K/uL (150-400); WHITE BLOOD CELL COUNT,WBC 4.73 K/uL (3.9-11.3)
[2023-11-28 16:34] LABS: PO2 VENOUS < 30 mmHG (35-45)
[2023-11-28 16:56] LABS: A/G RATIO 0.3 (0.9-1.6); BILIRUBIN TOTAL 0.2 mg/dL (0.2-1.0); CALCIUM 8.3 mg/dL (8.5-10.1); CARBON DIOXIDE,CO2 23.5 mmol/L (21.0-32.0); CREATININE 4.8 mg/dL (0.8-1.3); EST CRCL DRUG DOSING (CG) 19.79 mL/min; POTASSIUM,K 4.6 mmol/L (3.5-5.1); PROTEIN TOTAL,TP 4.4 g/dL (6.4-8.2)
[2023-11-28] MEDS ORDERED: Glucagon,Human Recombinant 1 MG Vial IM PRN ×2 (17:08→20:03)
[2023-11-28] MEDS ORDERED: 50% Dextrose in Water 50 ML Syringe IVPUSH PRN ×2 (17:08→20:03)
[2023-11-28] MEDS: Sodium Chloride 0.9% 500 ML IV SCH ×2 (18:12→19:21)
[2023-11-28] MEDS: Sodium Chloride 0.9% 10 ML Syringe FLUSH PRN (18:12)
[2023-11-28] MEDS: Insulin Regular, Human 100 Units/ML 10 ML Vial IVPUSH ONE ×2 (18:12→20:20)
[2023-11-28] MEDS: Sodium Chloride 0.9% 2.5 ML Syringe FLUSH PRN (19:17)
[2023-11-28] MEDS: hydrOXYzine HCl 25 MG Tab PO ONE (19:17)
[2023-11-28] MEDS: Ondansetron 4 MG/2 ML SDV IVPUSH ONE (19:17)
[2023-11-28 19:35] LABS: BASE EXCESS VENOUS -5.3 (-2.0-3.0); PH,VENOUS 7.27 (7.31-7.41)
[2023-11-28] MEDS: Sodium Chloride 0.9% 1,000 ML IV ONE (20:20)
[2023-11-28] MEDS: diphenhydrAMINE 50 MG/ML SDV IVPUSH ONE (21:53)
[2023-11-28 23:40] VITALS: BP 153/96; PULSE 99
== END 2023-11-28 22:10 | disposition home or self-care (01) ==
LOC: MW.ED 15:12
DX: E10.65 Type 1 diabetes mellitus with hyperglycemia (principal); E10.43 Type 1 diabetes mellitus with diabetic autonomic (poly)neuropathy; I10 Essential (primary) hypertension; Z88.0 Allergy status to penicillin; Z91.013 Allergy to seafood; Z88.8 Allergy status to other drugs, medicaments and biological substances; Z79.4 Long term (current) use of insulin
CPT/HCPCS: 36415; 80053; 82009; 82803; 82947; 83690; 85025; 96361; 96374; 96375; 99285; A9270; J1200; J2405; J3490; J7030; J7040; J1815-GY

== ENCOUNTER 2024-01-16 21:57 | Emergency (ER) | payer MEDICAID ==
[2024-01-16] MEDS: diphenhydrAMINE 50 MG/ML SDV IVPUSH ONE (22:24)
[2024-01-16 22:49] LABS: BASOPHILS ABSOLUTE AUTO 0.06 K/uL (0.00-0.20); BASOPHILS PERCENT AUTO 0.6 % (0.0-1.0); EOSINOPHILS ABSOLUTE AUTO 0.06 K/uL (0.00-0.45); EOSINOPHILS PERCENT AUTO 0.6 % (0.0-6.0); HEMATOCRIT 27.2 % (42.0-52.0); HEMOGLOBIN 9.1 g/dL (14.0-18.0); IMMATURE GRAN ABSOLUTE AUTO 0.06 K/uL (0.00-0.05); IMMATURE GRAN PERCENT AUTO 0.6 % (0.0-0.4); LYMPHOCYTES ABSOLUTE AUTO 1.21 K/uL (1.00-4.80); LYMPHOCYTES PERCENT AUTO 11.5 % (24.0-44.0); MEAN CORPUSCULAR HEMOGLOBIN 28.5 pg (28.0-32.0); MEAN CORPUSCULAR HGB CONC 33.5 g/dL (32.0-36.0); MEAN CORPUSCULAR VOLUME 85.3 fL (83.0-99.0); MEAN PLATELET VOLUME 8.5 fL (9.4-12.4); MONOCYTES ABSOLUTE AUTO 0.24 K/uL (0.00-0.80); MONOCYTES PERCENT AUTO 2.3 % (0.0-8.0); NEUTROPHILS PERCENT AUTO 84.4 % (41.0-71.0); PLATELET COUNT,PLT 227 K/uL (150-400); RED BLOOD CELL COUNT 3.19 M/uL (4.52-5.90); WHITE BLOOD CELL COUNT,WBC 10.53 K/uL (3.9-11.3)
[2024-01-16 22:51] LABS: BASE EXCESS VENOUS -4.2 (-2.0-3.0); PH,VENOUS 7.32 (7.31-7.41)
[2024-01-16 23:17] LABS: PH,VENOUS 7.35 (7.31-7.41)
[2024-01-16 23:21] LABS: A/G RATIO 0.4 (0.9-1.6); ALBUMIN 1.3 g/dL (3.4-5.0); BILIRUBIN TOTAL 0.2 mg/dL (0.2-1.0); CALCIUM 8.5 mg/dL (8.5-10.1); CARBON DIOXIDE,CO2 22.9 mmol/L (21.0-32.0); CREATININE 5.2 mg/dL (0.8-1.3); EST CRCL DRUG DOSING (CG) 19.64 mL/min; POTASSIUM,K 4.6 mmol/L (3.5-5.1)
[2024-01-16] MEDS: Lactated Ringers 1,000 ML IV ONE (23:21)
[2024-01-16] MEDS: Metoclopramide 10 MG/2 ML SDV IVPUSH ONE (23:21)
[2024-01-16] MEDS: Ondansetron 4 MG/2 ML SDV IVPUSH ONE (23:21)
[2024-01-16 23:26] LABS: LACTIC ACID 0.6 mmol/L (0.4-2.0)
[2024-01-17 00:08] LABS: APPEARANCE,URINE CLEAR; BILIRUBIN,URINE NEGATIVE (NEGATIVE); COLOR,URINE YELLOW; GLUCOSE,URINE >=1000 mg/dL (NEGATIVE); KETONES,URINE TRACE mg/dL (NEGATIVE); LEUKOCYTE ESTERASE,URINE NEGATIVE (NEGATIVE); NITRITE,URINE NEGATIVE (NEGATIVE); OCCULT BLOOD,URINE MODERATE (NEGATIVE); PROTEIN,URINE >=300 mg/dL (NEGATIVE); UROBILINOGEN,URINE 0.2 EU/dL (<2.0)
[2024-01-17 00:16] LABS: BACTERIA,URINE FEW (NEGATIVE); EPITHELIAL CELLS,URINE RARE (NONE-FEW)
[2024-01-17 02:02] VITALS: BP 233/137; PULSE 111
== END 2024-01-17 03:12 | disposition home or self-care (01) ==
LOC: MW.ED 21:57
DX: R11.2 Nausea with vomiting, unspecified (principal); I12.9 Hypertensive chronic kidney disease with stage 1 through stage 4 chronic kidney disease, or unspecified chronic kidney disease; N18.4 Chronic kidney disease, stage 4 (severe); E10.22 Type 1 diabetes mellitus with diabetic chronic kidney disease; Z88.0 Allergy status to penicillin; Z88.8 Allergy status to other drugs, medicaments and biological substances; Z91.013 Allergy to seafood; Z79.4 Long term (current) use of insulin; Z79.899 Other long term (current) drug therapy
CPT/HCPCS: 36415; 74176; 80053; 81001; 82009; 82803; 82947; 83605; 83690; 85025; 96361; 96374; 96375; 99284; J2405; J2765; J7120

== ENCOUNTER 2024-02-18 15:05 | Emergency (ER) | payer MEDICAID ==
[2024-02-18] MEDS ORDERED: Sodium Chloride 0.9% 2.5 ML Syringe FLUSH PRN (15:43)
[2024-02-18] MEDS ORDERED: Sodium Chloride 0.9% 10 ML Syringe FLUSH PRN (15:43)
[2024-02-18 16:26] LABS: BASOPHILS ABSOLUTE AUTO 0.03 K/uL (0.00-0.20); BASOPHILS PERCENT AUTO 0.5 % (0.0-1.0); EOSINOPHILS ABSOLUTE AUTO 0.11 K/uL (0.00-0.45); EOSINOPHILS PERCENT AUTO 1.9 % (0.0-6.0); HEMATOCRIT 27.2 % (42.0-52.0); HEMOGLOBIN 8.9 g/dL (14.0-18.0); IMMATURE GRAN ABSOLUTE AUTO 0.03 K/uL (0.00-0.05); IMMATURE GRAN PERCENT AUTO 0.5 % (0.0-0.4); LYMPHOCYTES ABSOLUTE AUTO 1.09 K/uL (1.00-4.80); LYMPHOCYTES PERCENT AUTO 19.3 % (24.0-44.0); MEAN CORPUSCULAR HEMOGLOBIN 28.8 pg (28.0-32.0); MEAN CORPUSCULAR HGB CONC 32.7 g/dL (32.0-36.0); MEAN PLATELET VOLUME 8.7 fL (9.4-12.4); MONOCYTES ABSOLUTE AUTO 0.21 K/uL (0.00-0.80); MONOCYTES PERCENT AUTO 3.7 % (0.0-8.0); NEUTROPHILS ABSOLUTE AUTO 4.18 K/uL (1.80-7.70); NEUTROPHILS PERCENT AUTO 74.1 % (41.0-71.0); PLATELET COUNT,PLT 222 K/uL (150-400); RED BLOOD CELL COUNT 3.09 M/uL (4.52-5.90); WHITE BLOOD CELL COUNT,WBC 5.65 K/uL (3.9-11.3)
[2024-02-18 16:35] LABS: PH,VENOUS 7.28 (7.31-7.41)
[2024-02-18 17:10] LABS: A/G RATIO 0.3 (0.9-1.6); ALBUMIN 1.1 g/dL (3.4-5.0); BILIRUBIN TOTAL 0.1 mg/dL (0.2-1.0); CALCIUM 8.5 mg/dL (8.5-10.1); CREATININE 4.4 mg/dL (0.8-1.3); EST CRCL DRUG DOSING (CG) 23.79 mL/min; POTASSIUM,K 5.1 mmol/L (3.5-5.1); PROTEIN TOTAL,TP 5.4 g/dL (6.4-8.2)
[2024-02-18] MEDS ORDERED: Glucagon,Human Recombinant 1 MG Vial IM PRN (17:17)
[2024-02-18] MEDS ORDERED: 50% Dextrose in Water 50 ML Syringe IVPUSH PRN (17:17)
[2024-02-18] MEDS: Insulin Regular, Human 100 Units/ML 10 ML Vial SUBCUT ONE (17:29)
[2024-02-18] MEDS: Sodium Chloride 0.9% 1,000 ML IV ONE (17:36)
[2024-02-18] MEDS: Ondansetron 4 MG/2 ML SDV IVPUSH ONE (17:41)
[2024-02-18 20:17] VITALS: BP 180/113; PULSE 94
== END 2024-02-18 20:17 | disposition home or self-care (01) ==
LOC: MW.ED 15:05
DX: D64.89 Other specified anemias (principal); E10.65 Type 1 diabetes mellitus with hyperglycemia; I10 Essential (primary) hypertension; E10.9 Type 1 diabetes mellitus without complications; Z88.0 Allergy status to penicillin; Z88.8 Allergy status to other drugs, medicaments and biological substances; Z91.013 Allergy to seafood; Z79.4 Long term (current) use of insulin; Z79.899 Other long term (current) drug therapy; Z75.8 Other problems related to medical facilities and other health care
CPT/HCPCS: 36415; 80053; 82009; 82803; 82947; 83690; 85025; 86850; 86900; 86901; 93005; 93971; 96361; 96374; 99285; J2405; J7030; J1815-GY

== ENCOUNTER 2024-02-20 04:52 | Emergency (ER) | payer MEDICAID ==
[2024-02-20] MEDS: Prochlorperazine 10 MG/2 ML SDV IM ONE (06:07)
[2024-02-20] MEDS: Prochlorperazine 10 MG/2 ML SDV IVPUSH ONE (06:31)
[2024-02-20 06:37] LABS: BASOPHILS ABSOLUTE AUTO 0.04 K/uL (0.00-0.20); BASOPHILS PERCENT AUTO 0.4 % (0.0-1.0); EOSINOPHILS ABSOLUTE AUTO 0.01 K/uL (0.00-0.45); EOSINOPHILS PERCENT AUTO 0.1 % (0.0-6.0); HEMATOCRIT 23.3 % (42.0-52.0); IMMATURE GRAN ABSOLUTE AUTO 0.04 K/uL (0.00-0.05); IMMATURE GRAN PERCENT AUTO 0.4 % (0.0-0.4); LYMPHOCYTES ABSOLUTE AUTO 1.01 K/uL (1.00-4.80); LYMPHOCYTES PERCENT AUTO 9.1 % (24.0-44.0); MEAN CORPUSCULAR HGB CONC 34.3 g/dL (32.0-36.0); MEAN CORPUSCULAR VOLUME 84.4 fL (83.0-99.0); MEAN PLATELET VOLUME 8.3 fL (9.4-12.4); MONOCYTES PERCENT AUTO 2.7 % (0.0-8.0); NEUTROPHILS ABSOLUTE AUTO 9.72 K/uL (1.80-7.70); NEUTROPHILS PERCENT AUTO 87.3 % (41.0-71.0); PLATELET COUNT,PLT 352 K/uL (150-400); RED BLOOD CELL COUNT 2.76 M/uL (4.52-5.90); WHITE BLOOD CELL COUNT,WBC 11.12 K/uL (3.9-11.3)
[2024-02-20 06:57] LABS: A/G RATIO 0.3 (0.9-1.6); ALBUMIN 1.2 g/dL (3.4-5.0); BILIRUBIN TOTAL 0.2 mg/dL (0.2-1.0); CALCIUM 8.9 mg/dL (8.5-10.1); CARBON DIOXIDE,CO2 24.3 mmol/L (21.0-32.0); CREATININE 4.4 mg/dL (0.8-1.3); EST CRCL DRUG DOSING (CG) 22.96 mL/min; POTASSIUM,K 4.3 mmol/L (3.5-5.1); PROTEIN TOTAL,TP 5.2 g/dL (6.4-8.2)
[2024-02-20] MEDS: Ondansetron 4 MG Tab.DIS PO ONE (07:28)
[2024-02-20] MEDS: Sodium Chloride 0.9% 1,000 ML IV ONE (07:53)
[2024-02-20] MEDS: Ondansetron 4 MG/2 ML SDV IVPUSH ONE (09:07)
[2024-02-20 12:55] VITALS: BP 178/102; PULSE 103
== END 2024-02-20 12:00 | disposition home or self-care (01) ==
LOC: MW.ED 04:52
DX: R11.2 Nausea with vomiting, unspecified (principal); I12.9 Hypertensive chronic kidney disease with stage 1 through stage 4 chronic kidney disease, or unspecified chronic kidney disease; N18.9 Chronic kidney disease, unspecified; E10.22 Type 1 diabetes mellitus with diabetic chronic kidney disease; Z88.0 Allergy status to penicillin; Z88.8 Allergy status to other drugs, medicaments and biological substances; Z91.013 Allergy to seafood; Z79.4 Long term (current) use of insulin; Z79.899 Other long term (current) drug therapy
CPT/HCPCS: 36415; 80053; 83690; 85025; 96361; 96372; 96374; 99284; A9270; J0780; J2405; J7030

== ENCOUNTER 2024-03-13 12:35 | Emergency (ER) | payer MEDICAID ==
[2024-03-13 15:27] VITALS: BP 193/122
[2024-03-13 15:35] VITALS: PULSE 91
== END 2024-03-13 15:34 | disposition home or self-care (01) ==
LOC: MW.ED 12:35
DX: E10.649 Type 1 diabetes mellitus with hypoglycemia without coma (principal); I10 Essential (primary) hypertension; Z75.8 Other problems related to medical facilities and other health care; Z88.0 Allergy status to penicillin; Z91.013 Allergy to seafood; Z88.8 Allergy status to other drugs, medicaments and biological substances; Z79.4 Long term (current) use of insulin; Z79.899 Other long term (current) drug therapy
CPT/HCPCS: 82947; 99285

== ENCOUNTER 2024-03-13 23:38 | Emergency (ER) | payer MEDICAID ==
[2024-03-13] MEDS ORDERED: Sodium Chloride 0.9% 10 ML Syringe FLUSH PRN (23:40)
[2024-03-13] MEDS ORDERED: Sodium Chloride 0.9% 2.5 ML Syringe FLUSH PRN (23:40)
[2024-03-14 00:13] LABS: BASOPHILS ABSOLUTE AUTO 0.05 K/uL (0.00-0.20); BASOPHILS PERCENT AUTO 0.3 % (0.0-1.0); EOSINOPHILS ABSOLUTE AUTO 0.05 K/uL (0.00-0.45); EOSINOPHILS PERCENT AUTO 0.3 % (0.0-6.0); HEMATOCRIT 25.7 % (42.0-52.0); HEMOGLOBIN 8.2 g/dL (14.0-18.0); IMMATURE GRAN ABSOLUTE AUTO 0.12 K/uL (0.00-0.05); IMMATURE GRAN PERCENT AUTO 0.7 % (0.0-0.4); LYMPHOCYTES ABSOLUTE AUTO 0.81 K/uL (1.00-4.80); LYMPHOCYTES PERCENT AUTO 4.8 % (24.0-44.0); MEAN CORPUSCULAR HEMOGLOBIN 28.1 pg (28.0-32.0); MEAN CORPUSCULAR HGB CONC 31.9 g/dL (32.0-36.0); MEAN PLATELET VOLUME 8.2 fL (9.4-12.4); MONOCYTES ABSOLUTE AUTO 0.72 K/uL (0.00-0.80); MONOCYTES PERCENT AUTO 4.3 % (0.0-8.0); NEUTROPHILS ABSOLUTE AUTO 15.05 K/uL (1.80-7.70); NEUTROPHILS PERCENT AUTO 89.6 % (41.0-71.0); PLATELET COUNT,PLT 298 K/uL (150-400); RED BLOOD CELL COUNT 2.92 M/uL (4.52-5.90)
[2024-03-14 00:50] LABS: A/G RATIO 0.2 (0.9-1.6); ALANINE AMINOTRANSFERASE,ALT 11 IU/L (14-63); ALBUMIN 0.8 g/dL (3.4-5.0); ALKALINE PHOSPHATASE 73 U/L (46-116); ASPARTATE AMNIOTRANSFERASE,AST 22 IU/L (15-37); BILIRUBIN TOTAL 0.2 mg/dL (0.2-1.0); BLOOD UREA NITROGEN,BUN 42 mg/dL (7.0-18.0); CALCIUM 8.1 mg/dL (8.5-10.1); CARBON DIOXIDE,CO2 22.3 mmol/L (21.0-32.0); CREATININE 4.6 mg/dL (0.8-1.3); EST CRCL DRUG DOSING (CG) 21.96 mL/min; GLUCOSE RANDOM 115 mg/dL (74-106); PROTEIN TOTAL,TP 4.8 g/dL (6.4-8.2)
[2024-03-14 01:56] LABS: ESTIMATED GFR 17 mL/min (>60); ETHANOL BLOOD MEDICAL < 3.0 mg/dL
[2024-03-14 01:57] LABS: CHLORIDE,CL 112 mmol/L (98-107); POTASSIUM,K 4.3 mmol/L (3.5-5.1); SODIUM,NA 143 mmol/L (136-148)
[2024-03-14] MEDS: 50% Dextrose in Water 50 ML Syringe IVPUSH ONE (03:29)
[2024-03-14 05:04] VITALS: BP 189/126; PULSE 88
== END 2024-03-14 05:04 | disposition home or self-care (01) ==
LOC: MW.ED 23:38
DX: E10.649 Type 1 diabetes mellitus with hypoglycemia without coma (principal); I10 Essential (primary) hypertension; Z88.0 Allergy status to penicillin; Z88.8 Allergy status to other drugs, medicaments and biological substances; Z91.013 Allergy to seafood; Z79.4 Long term (current) use of insulin; Z79.899 Other long term (current) drug therapy; Z75.8 Other problems related to medical facilities and other health care
CPT/HCPCS: 36415; 80053; 80307; 82947; 85025; 96374; 99285-25

== ENCOUNTER 2024-04-13 09:06 | Emergency (ER) | payer MEDICAID ==
[2024-04-13] MEDS ORDERED: Sodium Chloride 0.9% 20 ML SDV IV PRN (09:37)
[2024-04-13] MEDS ORDERED: Sodium Chloride 0.9% 10 ML Syringe FLUSH PRN (09:37)
[2024-04-13] MEDS ORDERED: Sodium Chloride 0.9% 2.5 ML Syringe FLUSH PRN (09:37)
[2024-04-13] MEDS: Sodium Chloride 0.9% 1,000 ML IV ONE ×3 (10:29→15:51)
[2024-04-13 10:48] LABS: BASOPHILS ABSOLUTE AUTO 0.07 K/uL (0.00-0.20); BASOPHILS PERCENT AUTO 0.5 % (0.0-1.0); HEMATOCRIT 23.3 % (42.0-52.0); IMMATURE GRAN ABSOLUTE AUTO 0.13 K/uL (0.00-0.05); IMMATURE GRAN PERCENT AUTO 0.9 % (0.0-0.4); LYMPHOCYTES ABSOLUTE AUTO 1.16 K/uL (1.00-4.80); MEAN CORPUSCULAR HEMOGLOBIN 28.8 pg (28.0-32.0); MEAN CORPUSCULAR VOLUME 95.9 fL (83.0-99.0); MEAN PLATELET VOLUME 8.8 fL (9.4-12.4); MONOCYTES ABSOLUTE AUTO 0.43 K/uL (0.00-0.80); NEUTROPHILS ABSOLUTE AUTO 12.72 K/uL (1.80-7.70); NEUTROPHILS PERCENT AUTO 87.6 % (41.0-71.0); PLATELET COUNT,PLT 315 K/uL (150-400); RED BLOOD CELL COUNT 2.43 M/uL (4.52-5.90); WHITE BLOOD CELL COUNT,WBC 14.51 K/uL (3.9-11.3)
[2024-04-13 11:17] LABS: LACTIC ACID 1.7 mmol/L (0.4-2.0)
[2024-04-13 11:20] LABS: A/G RATIO 0.2 (0.9-1.6); ALBUMIN 0.8 g/dL (3.4-5.0); BILIRUBIN TOTAL 0.3 mg/dL (0.2-1.0); CALCIUM 8.2 mg/dL (8.5-10.1); CARBON DIOXIDE,CO2 8.6 mmol/L (21.0-32.0); CREATININE 7.5 mg/dL (0.8-1.3); EST CRCL DRUG DOSING (CG) 12.5 mL/min; MAGNESIUM 2.4 mg/dL (1.8-2.4); POTASSIUM,K 6.6 mmol/L (3.5-5.1); PROTEIN TOTAL,TP 4.7 g/dL (6.4-8.2)
[2024-04-13] MEDS ORDERED: Glucagon,Human Recombinant 1 MG Vial IM PRN ×3 (11:45→15:02)
[2024-04-13] MEDS ORDERED: 50% Dextrose in Water 50 ML Syringe IVPUSH PRN ×3 (11:45→15:02)
[2024-04-13] MEDS: Calcium Gluconate 10% 1 GM/10 ML SDV IV ONE (11:58)
[2024-04-13] MEDS: Insulin Regular, Human 100 Units/ML 10 ML Vial IVPUSH ONE ×2 (12:11→15:38)
[2024-04-13 12:18] LABS: PH,VENOUS 7.18 (7.31-7.41)
[2024-04-13 12:45] LABS: POTASSIUM,K 6.7 mmol/L (3.5-5.1)
[2024-04-13] MEDS: Insulin Regular in 0.9 % NACL 100 ML IV SCH (13:23)
[2024-04-13] MEDS: VANCOmycin 1.5 GM in Sodium Chloride 0.9% 250 ML IV ONE (13:42)
[2024-04-13 14:26] LABS: HEMATOCRIT 22.5 % (42.0-52.0); HEMOGLOBIN 6.8 g/dL (14.0-18.0)
[2024-04-13 15:05] LABS: POTASSIUM,K 5.7 mmol/L (3.5-5.1)
[2024-04-13] MEDS: Sodium Bicarbonate 150 MEQ in Sodium Chloride 0.9% 1,000 ML IV ONE ×2 (15:38→15:57)
[2024-04-13] MEDS: Albuterol 0.083% 2.5 MG/3 ML Neb Soln NEB ONE (15:40)
[2024-04-13 15:57] LABS: A/G RATIO 0.2 (0.9-1.6); ALBUMIN 0.7 g/dL (3.4-5.0); BILIRUBIN TOTAL 0.3 mg/dL (0.2-1.0); CALCIUM 8.1 mg/dL (8.5-10.1); CARBON DIOXIDE,CO2 8.7 mmol/L (21.0-32.0); CREATININE 7.4 mg/dL (0.8-1.3); EST CRCL DRUG DOSING (CG) 12.67 mL/min; POTASSIUM,K 5.7 mmol/L (3.5-5.1); PROTEIN TOTAL,TP 4.5 g/dL (6.4-8.2)
[2024-04-13 17:04] LABS: INR 1.02 (0.86-1.11); PTT,PARTIAL THROMBOPLSTIN TIME 25.3 SEC (23.9-30.7)
[2024-04-13 17:19] VITALS: BP 171/105; PULSE 107
[2024-04-13 18:16] LABS: APPEARANCE,URINE CLOUDY; BILIRUBIN,URINE NEGATIVE (NEGATIVE); COLOR,URINE YELLOW; GLUCOSE,URINE 250 mg/dL (NEGATIVE); KETONES,URINE 15 mg/dL (NEGATIVE); LEUKOCYTE ESTERASE,URINE TRACE (NEGATIVE); NITRITE,URINE NEGATIVE (NEGATIVE); OCCULT BLOOD,URINE SMALL (NEGATIVE); PH,URINE 6.5 (5.0-8.0); PROTEIN,URINE >=300 mg/dL (NEGATIVE); UROBILINOGEN,URINE 0.2 EU/dL (<2.0)
[2024-04-13 18:25] LABS: BACTERIA,URINE 4+ (NEGATIVE); EPITHELIAL CELLS,URINE NOT SEEN (NONE-FEW); RBC,URINE 0-2 (0-2/HPF); WBC,URINE 20-30 (0-5/HPF)
== END 2024-04-13 18:49 ==
LOC: MW.ED 09:06
DX: E10.10 Type 1 diabetes mellitus with ketoacidosis without coma (principal); I10 Essential (primary) hypertension; Z79.899 Other long term (current) drug therapy; Z88.0 Allergy status to penicillin; Z88.8 Allergy status to other drugs, medicaments and biological substances; Z91.013 Allergy to seafood; Z88.5 Allergy status to narcotic agent
CPT/HCPCS: 36415; 36430; 70450; 71045; 80053; 81001; 82009; 82803; 82947; 83605; 83735; 84132; 85014; 85018; 85025; 85610; 85730; 87040; 87086; 93005; 94640; 96361; 96365; 96366; 96367; 96375; 99285; J0457; J0612; J1815; J3371; J3490; J7030; J7050; J7613; P9016; 86850; 86900; 86901; 86920

== ENCOUNTER 2024-06-04 09:35 | Emergency (ER) | payer MEDICAID ==
[2024-06-04 10:13] LABS: BASE EXCESS VENOUS 4.8 (-2.0-3.0); BASOPHILS ABSOLUTE AUTO 0.06 K/uL (0.00-0.20); BASOPHILS PERCENT AUTO 0.9 % (0.0-1.0); EOSINOPHILS ABSOLUTE AUTO 0.14 K/uL (0.00-0.45); HEMATOCRIT 36.3 % (42.0-52.0); HEMOGLOBIN 11.8 g/dL (14.0-18.0); IMMATURE GRAN ABSOLUTE AUTO 0.02 K/uL (0.00-0.05); IMMATURE GRAN PERCENT AUTO 0.3 % (0.0-0.4); LYMPHOCYTES ABSOLUTE AUTO 0.83 K/uL (1.00-4.80); MEAN CORPUSCULAR HEMOGLOBIN 28.6 pg (28.0-32.0); MEAN CORPUSCULAR HGB CONC 32.5 g/dL (32.0-36.0); MEAN CORPUSCULAR VOLUME 88.1 fL (83.0-99.0); MEAN PLATELET VOLUME 8.9 fL (9.4-12.4); MONOCYTES ABSOLUTE AUTO 0.28 K/uL (0.00-0.80); MONOCYTES PERCENT AUTO 4.1 % (0.0-8.0); NEUTROPHILS ABSOLUTE AUTO 5.56 K/uL (1.80-7.70); NEUTROPHILS PERCENT AUTO 80.7 % (41.0-71.0); PH,VENOUS 7.36 (7.32-7.43); PLATELET COUNT,PLT 144 K/uL (150-400); RED BLOOD CELL COUNT 4.12 M/uL (4.52-5.90); WHITE BLOOD CELL COUNT,WBC 6.89 K/uL (3.9-11.3)
[2024-06-04] MEDS: Pantoprazole 40 MG in Sodium Chloride 0.9% 10 ML IVPUSH ONE (10:19)
[2024-06-04] MEDS: droPERidol 2.5 MG/ML SDV IVPUSH ONE (10:20)
[2024-06-04 10:27] LABS: INR 1.04 (0.86-1.11)
[2024-06-04 10:43] LABS: HEMOGLOBIN A1C 6.8 %
[2024-06-04 10:59] LABS: A/G RATIO 0.5 (0.9-1.6); ALBUMIN 1.9 g/dL (3.4-5.0); BILIRUBIN TOTAL 0.4 mg/dL (0.2-1.0); CALCIUM 8.4 mg/dL (8.5-10.1); EST CRCL DRUG DOSING (CG) 29.82 mL/min; MAGNESIUM 2.1 mg/dL (1.8-2.4); PHOSPHORUS 4.5 mg/dL (2.6-4.7); POTASSIUM,K 3.6 mmol/L (3.5-5.1); PROTEIN TOTAL,TP 5.5 g/dL (6.4-8.2)
[2024-06-04] MEDS: Furosemide 40 MG/4 ML VIAL IVPUSH ONE (11:12)
[2024-06-04] MEDS ORDERED: Insulin Regular, Human 100 Units/ML 10 ML Vial IVPUSH ONE (11:22)
[2024-06-04] MEDS ORDERED: Glucagon,Human Recombinant 1 MG Vial IM PRN (11:22)
[2024-06-04] MEDS ORDERED: 50% Dextrose in Water 50 ML Syringe IVPUSH PRN (11:22)
[2024-06-04 13:06] VITALS: BP 170/109; PULSE 98
== END 2024-06-04 13:08 | disposition home or self-care (01) ==
LOC: MW.ED 09:35
DX: R11.2 Nausea with vomiting, unspecified (principal); J81.1 Chronic pulmonary edema; E10.43 Type 1 diabetes mellitus with diabetic autonomic (poly)neuropathy; K31.84 Gastroparesis; I10 Essential (primary) hypertension; N18.6 End stage renal disease; Z99.2 Dependence on renal dialysis; Z91.198 Patient's noncompliance with other medical treatment and regimen for other reason; Z95.9 Presence of cardiac and vascular implant and graft, unspecified; Z91.013 Allergy to seafood; Z88.5 Allergy status to narcotic agent; Z88.8 Allergy status to other drugs, medicaments and biological substances; Z79.4 Long term (current) use of insulin; Z79.899 Other long term (current) drug therapy
CPT/HCPCS: 36415; 71045; 74176; 80053; 82009; 82803; 82947; 83036; 83605; 83690; 83735; 83880; 84100; 84484; 85025; 85610; 93005; 96374; 96375; 99285; J1790; J1938; J2470; 93010; 99284; J1815-GY

== ENCOUNTER 2024-06-24 07:38 | Emergency (ER) | payer MEDICAID ==
[2024-06-24] MEDS: 50% Dextrose in Water 50 ML Syringe IVPUSH ONE (07:51)
[2024-06-24 08:13] LABS: PH,VENOUS 7.35 (7.32-7.43)
[2024-06-24 08:14] LABS: BASE EXCESS VENOUS -0.2 (-2.0-3.0); BASOPHILS ABSOLUTE AUTO 0.04 K/uL (0.00-0.20); BASOPHILS PERCENT AUTO 0.7 % (0.0-1.0); EOSINOPHILS ABSOLUTE AUTO 0.14 K/uL (0.00-0.45); EOSINOPHILS PERCENT AUTO 2.6 % (0.0-6.0); HEMATOCRIT 37.7 % (42.0-52.0); HEMOGLOBIN 12.6 g/dL (14.0-18.0); IMMATURE GRAN ABSOLUTE AUTO 0.01 K/uL (0.00-0.05); IMMATURE GRAN PERCENT AUTO 0.2 % (0.0-0.4); LYMPHOCYTES ABSOLUTE AUTO 0.79 K/uL (1.00-4.80); LYMPHOCYTES PERCENT AUTO 14.8 % (24.0-44.0); MEAN CORPUSCULAR HEMOGLOBIN 27.9 pg (28.0-32.0); MEAN CORPUSCULAR HGB CONC 33.4 g/dL (32.0-36.0); MEAN CORPUSCULAR VOLUME 83.4 fL (83.0-99.0); MEAN PLATELET VOLUME 8.4 fL (9.4-12.4); MONOCYTES PERCENT AUTO 3.7 % (0.0-8.0); NEUTROPHILS ABSOLUTE AUTO 4.16 K/uL (1.80-7.70); PLATELET COUNT,PLT 100 K/uL (150-400); RED BLOOD CELL COUNT 4.52 M/uL (4.52-5.90); WHITE BLOOD CELL COUNT,WBC 5.34 K/uL (3.9-11.3)
[2024-06-24 08:26] LABS: HEMOGLOBIN A1C 6.4 %
[2024-06-24 08:33] LABS: A/G RATIO 0.4 (0.9-1.6); ALBUMIN 1.2 g/dL (3.4-5.0); BILIRUBIN TOTAL 0.3 mg/dL (0.2-1.0); CALCIUM 7.5 mg/dL (8.5-10.1); CARBON DIOXIDE,CO2 25.2 mmol/L (21.0-32.0); CREATININE 3.7 mg/dL (0.8-1.3); EST CRCL DRUG DOSING (CG) 28.24 mL/min; POTASSIUM,K 4.1 mmol/L (3.5-5.1); PROTEIN TOTAL,TP 4.5 g/dL (6.4-8.2)
[2024-06-24 10:18] VITALS: BP 185/121; PULSE 83
== END 2024-06-24 10:17 | disposition home or self-care (01) ==
LOC: MW.ED 07:38
DX: I12.0 Hypertensive chronic kidney disease with stage 5 chronic kidney disease or end stage renal disease (principal); N18.6 End stage renal disease; E10.22 Type 1 diabetes mellitus with diabetic chronic kidney disease; E10.649 Type 1 diabetes mellitus with hypoglycemia without coma; Z79.899 Other long term (current) drug therapy; Z79.4 Long term (current) use of insulin; Z91.013 Allergy to seafood; Z88.0 Allergy status to penicillin; Z88.5 Allergy status to narcotic agent; Z88.8 Allergy status to other drugs, medicaments and biological substances
CPT/HCPCS: 36415; 80053; 82803; 82947; 83036; 83735; 85025; 93005; 93010; 96374; 99283; 99285-25

== ENCOUNTER 2024-08-19 07:59 | Emergency (ER) | payer MEDICAID ==
[2024-08-19] MEDS: 50% Dextrose in Water 50 ML Syringe IVPUSH ONE (08:45)
[2024-08-19 09:05] VITALS: BP 186/110
[2024-08-19 09:31] VITALS: PULSE 85
== END 2024-08-19 10:41 | disposition home or self-care (01) ==
LOC: MW.ED 07:59
DX: E10.649 Type 1 diabetes mellitus with hypoglycemia without coma (principal); I10 Essential (primary) hypertension; Z88.0 Allergy status to penicillin; Z88.5 Allergy status to narcotic agent; Z91.013 Allergy to seafood; Z79.4 Long term (current) use of insulin; Z79.899 Other long term (current) drug therapy
CPT/HCPCS: 82947; 99283; 99285

== ENCOUNTER 2024-09-08 19:52 | Emergency (ER) | payer MEDICAID ==
[2024-09-08] MEDS: Lactated Ringers 1,000 ML IV ONE (21:33)
[2024-09-08 21:38] LABS: BASOPHILS ABSOLUTE AUTO 0.07 K/uL (0.00-0.20); BASOPHILS PERCENT AUTO 0.8 % (0.0-1.0); EOSINOPHILS ABSOLUTE AUTO 0.36 K/uL (0.00-0.45); EOSINOPHILS PERCENT AUTO 4.3 % (0.0-6.0); IMMATURE GRAN ABSOLUTE AUTO 0.02 K/uL (0.00-0.05); IMMATURE GRAN PERCENT AUTO 0.2 % (0.0-0.4); LYMPHOCYTES ABSOLUTE AUTO 1.24 K/uL (1.00-4.80); LYMPHOCYTES PERCENT AUTO 14.7 % (24.0-44.0); MEAN PLATELET VOLUME 8.8 fL (9.4-12.4); MONOCYTES ABSOLUTE AUTO 0.27 K/uL (0.00-0.80); MONOCYTES PERCENT AUTO 3.2 % (0.0-8.0); NEUTROPHILS ABSOLUTE AUTO 6.47 K/uL (1.80-7.70); NEUTROPHILS PERCENT AUTO 76.8 % (41.0-71.0); NRBC ABSOLUTE 0.00 K/uL (0.00-0.02); NRBC PERCENT 0.0 /100WBC (0.0-0.2); PLATELET COUNT,PLT 181 K/uL (150-400); RED BLOOD CELL COUNT 3.90 M/uL (4.52-5.90); WHITE BLOOD CELL COUNT,WBC 8.43 K/uL (3.9-11.3)
[2024-09-08 22:09] LABS: A/G RATIO 0.4 (0.9-1.6); ALANINE AMINOTRANSFERASE,ALT 22.0 IU/L (14-63); ASPARTATE AMNIOTRANSFERASE,AST 23.0 IU/L (15-37); BILIRUBIN TOTAL 0.4 mg/dL (0.2-1.0); BLOOD UREA NITROGEN,BUN 26.0 mg/dL (7.0-18.0); CARBON DIOXIDE,CO2 26.1 mmol/L (21.0-32.0); CHLORIDE,CL 102.0 mmol/L (98-107); CREATININE 5.2 mg/dL (0.8-1.3); EST CRCL DRUG DOSING (CG) 19.28 mL/min; GLUCOSE RANDOM 388.0 mg/dL (74-106); POTASSIUM,K 4.3 mmol/L (3.5-5.1); PROTEIN TOTAL,TP 6.1 g/dL (6.4-8.2); SODIUM,NA 139.0 mmol/L (136-148)
[2024-09-08 22:10] LABS: ESTIMATED GFR 15.0 mL/min (>60)
[2024-09-08] MEDS ORDERED: 50% Dextrose in Water 50 ML Syringe IVPUSH PRN (22:39)
[2024-09-08] MEDS: Labetalol 100 MG/20 ML MDV IVPUSH ONE (23:03)
[2024-09-08] MEDS: Insulin Regular, Human 100 Units/ML 10 ML Vial SUBCUT ONE (23:07)
[2024-09-09 00:39] VITALS: BP 190/116; PULSE 88
[2024-09-09] MEDS: cloNIDine 0.1 MG/Day Transdermal Patch TRDERM SCH (00:47)
== END 2024-09-09 00:54 | disposition home or self-care (01) ==
LOC: MW.ED 19:52
DX: I10 Essential (primary) hypertension (principal); N28.9 Disorder of kidney and ureter, unspecified; E86.0 Dehydration; E10.9 Type 1 diabetes mellitus without complications; Z88.0 Allergy status to penicillin; Z88.5 Allergy status to narcotic agent; Z91.013 Allergy to seafood; Z79.4 Long term (current) use of insulin; Z79.899 Other long term (current) drug therapy
CPT/HCPCS: 36415; 80053; 84484; 85025; 93005; 96361; 96374; 96375; 99284; A9270; J1920; J2765; J7120; J1815-GY

== ENCOUNTER 2024-10-11 23:20 | Emergency (ER) | payer MEDICAID ==
[2024-10-11 23:29] VITALS: PULSE 86
[2024-10-11 23:46] LABS: BASOPHILS ABSOLUTE AUTO 0.05 K/uL (0.00-0.20); BASOPHILS PERCENT AUTO 0.7 % (0.0-1.0); EOSINOPHILS ABSOLUTE AUTO 0.00 K/uL (0.00-0.45); EOSINOPHILS PERCENT AUTO 0.0 % (0.0-6.0); IMMATURE GRAN ABSOLUTE AUTO 0.08 K/uL (0.00-0.05); IMMATURE GRAN PERCENT AUTO 1.1 % (0.0-0.4); LYMPHOCYTES ABSOLUTE AUTO 0.40 K/uL (1.00-4.80); LYMPHOCYTES PERCENT AUTO 5.5 % (24.0-44.0); MEAN PLATELET VOLUME 9.2 fL (9.4-12.4); MONOCYTES ABSOLUTE AUTO 0.26 K/uL (0.00-0.80); MONOCYTES PERCENT AUTO 3.6 % (0.0-8.0); NEUTROPHILS ABSOLUTE AUTO 6.42 K/uL (1.80-7.70); NEUTROPHILS PERCENT AUTO 89.1 % (41.0-71.0); NRBC ABSOLUTE 0.02 K/uL (0.00-0.02); NRBC PERCENT 0.3 /100WBC (0.0-0.2); PLATELET COUNT,PLT 271 K/uL (150-400); RED BLOOD CELL COUNT 3.75 M/uL (4.52-5.90); WHITE BLOOD CELL COUNT,WBC 7.21 K/uL (3.9-11.3)
[2024-10-11 23:50] LABS: BASE EXCESS VENOUS -25.1 (-2.0-3.0); BICARBONATE,VENOUS 3.0 mEq/L (22-29); PCO2 VENOUS 12.0 mmHG (41-51); PH,VENOUS 7.05 (7.32-7.43); PO2 VENOUS 57.0 mmHG (35-45)
[2024-10-12 00:20] LABS: A/G RATIO 0.5 (0.9-1.6); ALANINE AMINOTRANSFERASE,ALT 14.0 IU/L (14-63); ASPARTATE AMNIOTRANSFERASE,AST 42.0 IU/L (15-37); BILIRUBIN TOTAL 0.6 mg/dL (0.2-1.0); BLOOD UREA NITROGEN,BUN 60.0 mg/dL (7.0-18.0); CARBON DIOXIDE,CO2 5.2 mmol/L (21.0-32.0); CHLORIDE,CL 93.0 mmol/L (98-107); CREATININE 9.5 mg/dL (0.8-1.3); EST CRCL DRUG DOSING (CG) 8.67 mL/min; POTASSIUM,K 6.9 mmol/L (3.5-5.1); PROTEIN TOTAL,TP 5.3 g/dL (6.4-8.2); SODIUM,NA 134.0 mmol/L (136-148)
[2024-10-12 00:22] LABS: ESTIMATED GFR 7.0 mL/min (>60)
[2024-10-12] MEDS ORDERED: 50% Dextrose in Water 50 ML Syringe IVPUSH PRN (00:24)
[2024-10-12] MEDS: Norepinephrine Bit/D5W Premix 250 ML IV SCH (00:28)
[2024-10-12 00:34] LABS: GLUCOSE RANDOM 759.0 mg/dL (74-106)
[2024-10-12] MEDS: Calcium Gluconate 10% 1 GM/10 ML SDV IV ONE (00:38)
[2024-10-12 01:08] VITALS: BP 101/55
== END 2024-10-12 01:34 ==
LOC: MW.ED 23:20
DX: E10.10 Type 1 diabetes mellitus with ketoacidosis without coma (principal); E87.5 Hyperkalemia; I12.0 Hypertensive chronic kidney disease with stage 5 chronic kidney disease or end stage renal disease; N18.6 End stage renal disease; E10.22 Type 1 diabetes mellitus with diabetic chronic kidney disease; Z99.2 Dependence on renal dialysis; Z88.0 Allergy status to penicillin; Z88.5 Allergy status to narcotic agent; Z91.013 Allergy to seafood; Z79.4 Long term (current) use of insulin; Z79.899 Other long term (current) drug therapy
CPT/HCPCS: 36415; 71045; 74176; 80053; 82803; 82947; 83605; 83690; 84145; 85025; 87040; 93005; 96365; 96375; 99285; J0612; J1815; J7030; 93010; A9270-GY

== ENCOUNTER 2024-11-13 15:44 | Emergency (ER) | payer MEDICAID ==
[2024-11-13] MEDS ORDERED: Sodium Chloride 0.9% 10 ML Syringe FLUSH PRN (16:19)
[2024-11-13] MEDS ORDERED: Sodium Chloride 0.9% 2.5 ML Syringe FLUSH PRN (16:19)
[2024-11-13 16:55] LABS: BASOPHILS ABSOLUTE AUTO 0.04 K/uL (0.00-0.20); BASOPHILS PERCENT AUTO 0.5 % (0.0-1.0); EOSINOPHILS ABSOLUTE AUTO 0.03 K/uL (0.00-0.45); EOSINOPHILS PERCENT AUTO 0.4 % (0.0-6.0); IMMATURE GRAN ABSOLUTE AUTO 0.02 K/uL (0.00-0.05); IMMATURE GRAN PERCENT AUTO 0.3 % (0.0-0.4); LYMPHOCYTES ABSOLUTE AUTO 0.61 K/uL (1.00-4.80); LYMPHOCYTES PERCENT AUTO 7.8 % (24.0-44.0); MEAN PLATELET VOLUME 8.6 fL (9.4-12.4); MONOCYTES ABSOLUTE AUTO 0.24 K/uL (0.00-0.80); MONOCYTES PERCENT AUTO 3.1 % (0.0-8.0); NEUTROPHILS ABSOLUTE AUTO 6.86 K/uL (1.80-7.70); NEUTROPHILS PERCENT AUTO 87.9 % (41.0-71.0); NRBC ABSOLUTE 0.00 K/uL (0.00-0.02); NRBC PERCENT 0.0 /100WBC (0.0-0.2); PLATELET COUNT,PLT 203 K/uL (150-400); RED BLOOD CELL COUNT 4.35 M/uL (4.52-5.90); WHITE BLOOD CELL COUNT,WBC 7.80 K/uL (3.9-11.3)
[2024-11-13] MEDS: droPERidol 2.5 MG/ML SDV IVPUSH ONE ×2 (16:55→17:58)
[2024-11-13] MEDS: Pantoprazole 40 MG in Sodium Chloride 0.9% 20 ML IVPUSH ONE (16:55)
[2024-11-13 17:17] LABS: A/G RATIO 0.6 (0.9-1.6); ALANINE AMINOTRANSFERASE,ALT 75.0 IU/L (14-63); ASPARTATE AMNIOTRANSFERASE,AST 35.0 IU/L (15-37); BILIRUBIN TOTAL 0.4 mg/dL (0.2-1.0); BLOOD UREA NITROGEN,BUN 10.0 mg/dL (7.0-18.0); CARBON DIOXIDE,CO2 31.6 mmol/L (21.0-32.0); CHLORIDE,CL 100.0 mmol/L (98-107); CREATININE 1.5 mg/dL (0.8-1.3); EST CRCL DRUG DOSING (CG) 50.75 mL/min; ESTIMATED GFR 65.0 mL/min (>60); GLUCOSE RANDOM 67.0 mg/dL (74-106); POTASSIUM,K 3.2 mmol/L (3.5-5.1); PROTEIN TOTAL,TP 5.9 g/dL (6.4-8.2); SODIUM,NA 140.0 mmol/L (136-148)
[2024-11-13 17:22] LABS: BASE EXCESS VENOUS 12.3 (-2.0-3.0); BICARBONATE,VENOUS 36 mEq/L (22-29); PCO2 VENOUS 41 mmHG (41-51); PH,VENOUS 7.55 (7.32-7.43); PO2 VENOUS > 57 mmHG (35-45)
[2024-11-13 19:24] VITALS: BP 144/84; PULSE 80
== END 2024-11-13 19:54 | disposition home or self-care (01) ==
LOC: MW.ED 15:44
DX: R11.2 Nausea with vomiting, unspecified (principal); I10 Essential (primary) hypertension; E10.9 Type 1 diabetes mellitus without complications; Z88.0 Allergy status to penicillin; Z88.8 Allergy status to other drugs, medicaments and biological substances; Z91.013 Allergy to seafood; Z79.4 Long term (current) use of insulin; Z79.899 Other long term (current) drug therapy
CPT/HCPCS: 36415; 80053; 82803; 82947; 83690; 83735; 85025; 96361; 96374; 96375; 96376; 99284; J1790; J2470; J7030

== ENCOUNTER 2024-12-18 10:36 | Emergency (ER) | payer MEDICAID ==
[2024-12-18] MEDS ORDERED: Sodium Chloride 0.9% 2.5 ML Syringe FLUSH PRN (10:39)
[2024-12-18] MEDS ORDERED: Sodium Chloride 0.9% 10 ML Syringe FLUSH PRN (10:39)
[2024-12-18] MEDS ORDERED: 50% Dextrose in Water 50 ML Syringe IVPUSH PRN (10:52)
[2024-12-18 11:30] LABS: BASOPHILS ABSOLUTE AUTO 0.03 K/uL (0.00-0.20); BASOPHILS PERCENT AUTO 0.2 % (0.0-1.0); EOSINOPHILS ABSOLUTE AUTO 0.00 K/uL (0.00-0.45); EOSINOPHILS PERCENT AUTO 0.0 % (0.0-6.0); IMMATURE GRAN ABSOLUTE AUTO 0.05 K/uL (0.00-0.05); IMMATURE GRAN PERCENT AUTO 0.4 % (0.0-0.4); LYMPHOCYTES ABSOLUTE AUTO 0.88 K/uL (1.00-4.80); LYMPHOCYTES PERCENT AUTO 6.5 % (24.0-44.0); MEAN PLATELET VOLUME 8.9 fL (9.4-12.4); MONOCYTES ABSOLUTE AUTO 0.48 K/uL (0.00-0.80); MONOCYTES PERCENT AUTO 3.5 % (0.0-8.0); NEUTROPHILS ABSOLUTE AUTO 12.20 K/uL (1.80-7.70); NEUTROPHILS PERCENT AUTO 89.4 % (41.0-71.0); NRBC ABSOLUTE 0.00 K/uL (0.00-0.02); NRBC PERCENT 0.0 /100WBC (0.0-0.2); PLATELET COUNT,PLT 153 K/uL (150-400); RED BLOOD CELL COUNT 2.28 M/uL (4.52-5.90); WHITE BLOOD CELL COUNT,WBC 13.64 K/uL (3.9-11.3)
[2024-12-18] MEDS: Insulin Regular, Human 100 Units/ML 10 ML Vial IVPUSH ONE (11:30)
[2024-12-18 11:31] LABS: BASE EXCESS VENOUS -4.0 (-2.0-3.0); BICARBONATE,VENOUS 22.0 mEq/L (22-29); PCO2 VENOUS 45.0 mmHG (41-51); PH,VENOUS 7.3 (7.32-7.43); PO2 VENOUS 37.0 mmHG (35-45)
[2024-12-18 11:59] LABS: A/G RATIO 0.5 (0.9-1.6); ALANINE AMINOTRANSFERASE,ALT 24 IU/L (14-63); ASPARTATE AMNIOTRANSFERASE,AST 17 IU/L (15-37); BILIRUBIN TOTAL 0.3 mg/dL (0.2-1.0); BLOOD UREA NITROGEN,BUN 31 mg/dL (7.0-18.0); CARBON DIOXIDE,CO2 23.1 mmol/L (21.0-32.0); CHLORIDE,CL 89 mmol/L (98-107); CREATININE 5.6 mg/dL (0.8-1.3); EST CRCL DRUG DOSING (CG) 18.53 mL/min; GLUCOSE RANDOM 479 mg/dL (74-106); PHOSPHORUS 4.9 mg/dL (2.6-4.7); POTASSIUM,K 4.8 mmol/L (3.5-5.1); PROTEIN TOTAL,TP 6.3 g/dL (6.4-8.2); SODIUM,NA 123 mmol/L (136-148)
[2024-12-18 12:00] LABS: IRON,FE 22.0 ug/dL (50-175); PERCENT FE SATURATION 18.49 % (20-55)
[2024-12-18 12:03] LABS: ESTIMATED GFR 13 mL/min (>60)
[2024-12-18 12:29] LABS: PRO B-TYPE NATRIUR PEPT,BNPPRO > 35000 pg/mL (0-125)
[2024-12-18] MEDS: diphenhydrAMINE 50 MG/ML SDV IVPUSH ONE (17:55)
[2024-12-18 17:57] VITALS: BP 144/99; PULSE 86
== END 2024-12-18 19:40 ==
LOC: MW.ED 10:36
DX: E10.65 Type 1 diabetes mellitus with hyperglycemia (principal); I12.0 Hypertensive chronic kidney disease with stage 5 chronic kidney disease or end stage renal disease; N18.6 End stage renal disease; D50.9 Iron deficiency anemia, unspecified; E87.1 Hypo-osmolality and hyponatremia; Z88.0 Allergy status to penicillin; Z88.5 Allergy status to narcotic agent; Z91.013 Allergy to seafood; Z79.4 Long term (current) use of insulin; Z79.899 Other long term (current) drug therapy; Z99.2 Dependence on renal dialysis
CPT/HCPCS: 36415; 36430; 71045; 80053; 82009; 82803; 82947; 83036; 83550; 83605; 83735; 83880; 84100; 84484; 85014; 85018; 85025; 93005; 96374; 99285; A9270; J1200; J1815; P9016; 86850; 86900; 86901; 86920

== ENCOUNTER 2025-01-21 22:44 | Emergency (ER) | payer MEDICAID ==
[2025-01-21 23:51] LABS: BASOPHILS ABSOLUTE AUTO 0.07 K/uL (0.00-0.20); BASOPHILS PERCENT AUTO 1.7 % (0.0-1.0); EOSINOPHILS ABSOLUTE AUTO 0.03 K/uL (0.00-0.45); EOSINOPHILS PERCENT AUTO 0.7 % (0.0-6.0); IMMATURE GRAN ABSOLUTE AUTO 0.02 K/uL (0.00-0.05); IMMATURE GRAN PERCENT AUTO 0.5 % (0.0-0.4); LYMPHOCYTES ABSOLUTE AUTO 0.66 K/uL (1.00-4.80); LYMPHOCYTES PERCENT AUTO 16.3 % (24.0-44.0); MEAN PLATELET VOLUME 8.7 fL (9.4-12.4); MONOCYTES ABSOLUTE AUTO 0.24 K/uL (0.00-0.80); MONOCYTES PERCENT AUTO 5.9 % (0.0-8.0); NEUTROPHILS ABSOLUTE AUTO 3.04 K/uL (1.80-7.70); NEUTROPHILS PERCENT AUTO 74.9 % (41.0-71.0); NRBC ABSOLUTE 0.03 K/uL (0.00-0.02); NRBC PERCENT 0.7 /100WBC (0.0-0.2); PLATELET COUNT,PLT 390 K/uL (150-400); RED BLOOD CELL COUNT 3.17 M/uL (4.52-5.90); WHITE BLOOD CELL COUNT,WBC 4.06 K/uL (3.9-11.3)
[2025-01-22 00:16] LABS: BASE EXCESS VENOUS -0.2 (-2.0-3.0); BICARBONATE,VENOUS 25.0 mEq/L (22-29); PCO2 VENOUS 41.0 mmHG (41-51); PH,VENOUS 7.39 (7.32-7.43); PO2 VENOUS 55.0 mmHG (35-45)
[2025-01-22 00:33] LABS: ALANINE AMINOTRANSFERASE,ALT 12 IU/L (14-63); ASPARTATE AMNIOTRANSFERASE,AST 21 IU/L (15-37); BILIRUBIN TOTAL 0.5 mg/dL (0.2-1.0); BLOOD UREA NITROGEN,BUN 33 mg/dL (7.0-18.0); CARBON DIOXIDE,CO2 27.7 mmol/L (21.0-32.0); CHLORIDE,CL 101 mmol/L (98-107); CREATININE 4.5 mg/dL (0.8-1.3); GLUCOSE RANDOM 494 mg/dL (74-106); POTASSIUM,K 4.4 mmol/L (3.5-5.1); PROTEIN TOTAL,TP 6.8 g/dL (6.4-8.2); SODIUM,NA 139 mmol/L (136-148)
[2025-01-22 00:47] LABS: A/G RATIO 0.5 (0.9-1.6); ESTIMATED GFR 17 mL/min (>60)
[2025-01-22] MEDS ORDERED: Sodium Chloride 0.9% 2.5 ML Syringe FLUSH PRN (02:08)
[2025-01-22] MEDS ORDERED: Sodium Chloride 0.9% 10 ML Syringe FLUSH PRN (02:08)
[2025-01-22] MEDS: Ondansetron 4 MG/2 ML SDV IVPUSH ONE (02:41)
[2025-01-22] MEDS ORDERED: 50% Dextrose in Water 50 ML Syringe IVPUSH PRN (02:51)
[2025-01-22] MEDS: Insulin Regular, Human 100 Units/ML 10 ML Vial IVPUSH ONE (02:57)
[2025-01-22 04:40] VITALS: BP 139/81; PULSE 76
== END 2025-01-22 04:38 | disposition home or self-care (01) ==
LOC: MW.ED 22:44
DX: E10.65 Type 1 diabetes mellitus with hyperglycemia (principal); I10 Essential (primary) hypertension; Z88.5 Allergy status to narcotic agent; Z88.1 Allergy status to other antibiotic agents; Z91.013 Allergy to seafood; Z79.4 Long term (current) use of insulin; Z79.899 Other long term (current) drug therapy
CPT/HCPCS: 36415; 80053; 82803; 82947; 85025; 96361; 96374; 99285; A9270; J1815; J2405; J7030; 99284